=== PATIENT | male | born 1945 | race Caucasian/White ===

== ENCOUNTER 2019-12-29 12:41 | Inpatient (IN) | payer OTHER, SELFPAY ==
[2019-12-29] VITALS (13 sets, daily range): BP systolic 100–127; BP diastolic 52–88; PULSE 69–93; RESP 18–32; TEMP 36.6–37.7; O2SAT 94–100; BMI 23.8
--- NOTE | ~2019-12-29 | XR_ITS ---
EXAMINATION: XR foot LT min 3V DATE: 12/29/2019 14:10 INDICATION: Left foot diabetic ulcer. TECHNIQUE: 4 views of left foot were obtained. COMPARISON: Left foot radiographs 05/13/2013 FINDINGS: Bone alignment is normal. There is an old healed fracture of third proximal phalanx. There is severe osteoarthritis of first metatarsophalangeal joint and mild osteoarthritis of some of the in terphalangeal joints. There is an enthesophyte at posterior aspect of calcaneal tuberosity. IMPRESSION: 1. No evidence of osteomyelitis. 2. Polyarticular osteoarthritis. Reviewed, dictated and finalized at location A. ONAL ASSISTANT
--- NOTE | ~2019-12-29 | XR_ITS ---
XR chest 2V 12/29/2019 14:10 Indication: Cough and dyspnea. Discoloration of the toes. Procedure: 2 view chest Comparison: Comparison to multiple prior studies sequentially, with oldest reviewed study dated 12/2016. Findings: There is airspace disease in the left mid and lower lung. Borderline heart size. Right lung clear. No pleural effusion or pneumothorax. No acute osseous abnormality. Impression: 1: Asymmetric airspace disease of the left lung, compatible with pneumonia. Reviewed, dictated and finalized at location B. IGHTEDGE MAN Impression: 1: Asymmetric airspace disease of the left lung, compatible with pneumonia.
--- NOTE | ~2019-12-29 | MR_ITS ---
EXAMINATION: MR foot LT wo con DATE: 01/03/2020 12:53 INDICATION: Left foot osteomyelitis. TECHNIQUE: Magnetic resonance imaging (MRI) of the left foot was performed without intravenous contra st. Sequences included sagittal T1-weighted FSE and STIR FSE, long-axis PD-weighted FS FSE and PD-eric ghted FSE, and short-axis PD-weighted FS FSE and T1-weighted FSE. COMPARISON: Left foot radiographs 12/29/2019 FINDINGS: Bone alignment is normal. No acute fracture. There are old healed fracture deformities of t hird and fourth proximal phalanges. There is bone marrow edema of fifth proximal phalanx. There is se belen osteoarthritis of first metatarsophalangeal joint and mild osteoarthritis of second and fourth m etatarsophalangeal joints and many of the interphalangeal joints and midfoot joints. There is moderat e to severe fatty atrophy of all of the musculature. There is increased T2-weighted signal intensity diffusely in the musculature, consistent with subacute denervation. There is subcutaneous edema in th e forefoot, greatest dorsally, laterally, and in the great toe. IMPRESSION: 1. Bone marrow edema of fifth proximal phalanx, most likely osteomyelitis. Reviewed, dictated and finalized at location A.
--- NOTE | 2019-12-29 13:11 | ED.LOWEXIN ---
HPI - Extremity Injury (Lower) General Chief Complaint: Extremity Injury, Lower Stated Complaint: Infection L toes Time Seen by Provider: 12/29/19 12:57 Source: patient Mode of arrival: ambulatory Limitations: no limitations History of Present Illness HPI Narrative: Pt is a 74 y/o male who presents to the ED with c/o injuring his lt foot on Saturday (3 days ago). Per pt's daughter, the pt states he hit his foot in the bathroom and it is turning black. Pt has a PMHx of DM, neuropathy, and partial rt foot amputation. Per daughter, pt is an alcoholic and has a caregiver that takes care of him Saturday through Saturday a couple of hours a day. Pt refuses to seek rehab or assisted living care. He has a H/O COPD and is on home O2. Pt reports ABD pain, incontinence, CP, SOB, chills, and a cough. He denies a fever. Pt has a H/O a stroke and rt hip abscess that lead him to go into septic shock. Pt states that he is a full code. complaint: foot injury Onset (ago): day(s) (3) Injury: Left: foot Place: home Context: direct blow Other symptoms: SOB and other (ABD pain, CP) Related Data Home Medications Medication Instructions Recorded Confirmed albuterol sulfate 90 mcg/actuation 1 puff INHALATION Q4H PRN 09/30/19 aerosol inhaler ipratropium 0.5 mg-albuterol 3 mg 3 ml INHALATION Q6H PRN 09/30/19 (2.5 mg base)/3 mL nebulization soln metoprolol tartrate 50 mg tablet 50 mg PO Q12H 09/30/19 omeprazole 40 mg capsule,delayed 40 mg PO BID 09/30/19 release prednisone 2.5 mg tablet 2.5 mg PO DAILY 09/30/19 sennosides 8.6 mg capsule 8.6 mg PO BID PRN 09/30/19 sertraline 50 mg tablet 50 mg PO DAILY 09/30/19 Allergies Allergy/AdvReac Type Severity Reaction Status Date / Time niacin Allergy Unknown Verified 11/15/15 11:43 Review of Systems Review of Systems: Narrative: CONSTITUTIONAL: Reports chills. Denies a fever CARDIOVASCULAR: Reports CP. RESPIRATORY: Reports dyspnea and cough GASTROINTESTINAL: Reports ABD pain and incontinence MUSCULOSKELETAL: Reports lt foot injury. 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 Anxiety Asthma CHF (congestive heart failure) COPD (chronic obstructive pulmonary disease) COPD mixed type CVA (cerebral vascular accident) Depression Diabetes mellitus Emphysema of lung GERD (gastroesophageal reflux disease) GERD without esophagitis HLD (hyperlipidemia) HTN (hypertension) IBS (irritable bowel syndrome) Mixed hyperlipidemia Osteomyelitis Peripheral neuropathy Pneumonia Sacrum and coccyx fracture Type 2 diabetes mellitus without complications Unspecified systolic (congestive) heart failure Surgical History Surgical History (Updated 12/29/19 @ 13:45 by Benji Black) H/O bilateral cataract extraction H/O colonoscopy H/O hernia repair History of right hip replacement Hx of tonsillectomy Family History Family History (Updated 09/23/17 @ 13:33 by DOCTOR UNKNOWN) Mother Patient's mother is , Onset Age: 31 Father Family history of suicide, Onset Age: 69 Social History Social History (Updated 12/29/19 @ 13:45 by Benji Black) Smoking status: Former smoker Second hand tobacco smoke exposure: No Smoking end date: 10/28/15 Alcohol intake: current Gender identity (if verbalized by the patient): Male Exam Narrative: Exam Narrative: GENERAL: Chronically ill-appearing, thin, disheveled HEAD: Normocephalic, atraumatic. EYES: PERRLA and EOMI. ENT: Nares clear, no rhinorrhea or epistaxis. Mucous membranes moist. NECK: Supple. CHEST: Coarse breath sounds, expiratory wheezing bilaterally, faint crackles at bilateral bases. ABD retractions and tachypnea. Moderate respiratory distress. HEART: Regular rate and rhythm. No murmur heard. Normal DP pulses. ABDOMEN: Soft, nontender, non
--- NOTE | 2019-12-29 13:16 | ECG_ITS ---
Measurements Intervals [place] Rate: 82 P: [place]: 0 QRS: 43 QRSD: 82 T: 52 QT: 328 QTc: 383 Interpretive Statements ATRIAL FIBRILLATION ANTEROSEPTAL INFARCT, AGE INDETERMINATE BASELINE ARTIFACT- I, II, III, AVR, AVL, AVF, V4-V6 ABNORMAL ECG Electronically Signed On 12-29-2019 14:18:59 REFUSE COLLECTOR SUPERVISOR by Yahir Lopez D.O.
[2019-12-29] MEDS: ALBUTEROL SULFATE NEB 2.5 MG/0.5 ML INH 20 MG INHALATION (13:29)
[2019-12-29] MEDS: IPRATROPIUM BR 0.02% INH SOLN 0.5 MG/2.5 ML VIAL 2 MG INHALATION (13:29)
[2019-12-29 13:46] LABS: Basophils Absolute Auto 0.1 K/mm3 (0.0-0.1); Basophils Percent Auto 0.2 % (0.2-1.2); Hematocrit 42.1 % (42.0-52.0); Hemoglobin 14.2 g/dL (14.0-18.0); Immature Granulocyte Absolute 0.74 K/mm3 (0.00-0.031); Immature Granulocyte Percent A 2.5 % (0-0.5); Lymphocytes Absolute Auto 0.84 K/mm3 (0.9-3.2); Lymphocytes Percent Auto 2.9 % (18.3-44.2); Mean Corpuscular HGB Conc 33.7 g/dl (32-36); Mean Platelet Volume 9.5 fl (7.4-10.4); Monocytes Absolute Auto 1.5 K/mm3 (0.1-0.6); Monocytes Percent Auto 5.1 % (2.6-8.5); Neutrophils Absolute Auto 26.3 K/mm3 (1.3-6.7); Neutrophils Percent Auto 89.3 % (45.5-73.1); Platelet Count Result 154 k/mm3 (150-375); Red Blood Count 4.73 M/mm3 (4.6-6.20); Red Cell Distribution Width 12.1 % (11.5-14.5); White Blood Count 29.4 K/mm3 (4.5-10.0)
[2019-12-29 13:47] LABS: Alveolar/Arterial O2 Gradient 80.9 mmHg; Base Excess ABG -1.1 mEq/l (+/-2.0); Carboxyhemoglobin 0.8 % THb (0-2.0); Device NASAL CANNULA; Fractional Inspired Oxygen 30 %; HCO3 ABG 22.3 mEq/l (22.0-26.0); Liters per Minute 2.5 LPM; Methemoglobin ABG 0.3 %THb (0-1.5); Oxygen Content ABG 19.3 %vol (16.0-22.0); Oxygen Saturation ABG 97.4 % (95.0-100.0); Oxyhemoglobin 96.2 % THb (90.0-100.0); PCO2 ABG 33.7 mmHg (35.0-45.0); PO2 ABG 93.4 mmHg (80.0-100.0); PO2 FiO2 Ratio Arterial Blood 3.11 %; Reduced Hemoglobin 2.7 %THb (0-5.0); Site Drawn RIGHT BRACHIAL; Total Hemoglobin 14.2 g/dL (12.0-18.0); pH ABG 7.439 (7.350-7.450)
[2019-12-29] MEDS: MAGNESIUM SULF 2 GM/WATER 50ML 2 GM/50 ML BAG IVPB (13:51)
[2019-12-29] MEDS: SODIUM CHLORIDE 0.9% IV 2,500 ML/1,000 ML BAG 999 ML IV CONT ×2 (13:51→15:04)
[2019-12-29] MEDS: methylPREDNISolone SOD SUCC 125 MG VIAL IV PUSH (13:52)
[2019-12-29 13:56] LABS: INR 1.1; Prothrombin Time 14.2 Seconds (11.1-14.7)
[2019-12-29 13:57] LABS: Partial Thromboplastin Time 32.6 SECONDS (22.3-36.8)
[2019-12-29 14:02] LABS: Lactic Acid Reflex 2.3 mmol/L (0.7-2.1)
[2019-12-29 14:03] LABS: Ethanol < 10 mg/dL (<10)
[2019-12-29 14:04] LABS: Alanine Aminotransferase 22 U/L (4-50); Albumin Level 4.6 g/dL (3.5-5.1); Alkaline Phosphatase 99 U/L (38-126); Aspartate Amino Transferase 64 U/L (17-59); Bilirubin,Total 1.3 mg/dL (0.2-1.3); Blood Urea Nitrogen 16 mg/dL (9-20); Calcium 8.7 mg/dL (8.4-10.2); Carbon Dioxide 27 mmol/L (22-30); Chloride 83 mmol/L (98-107); Estimated CRCL calculation 54 ml/min; Estimated Glomerular Filt Rate 59; Glucose 131 mg/dL (75-110); Potassium 4.1 mmol/L (3.4-5.0); Sodium 128 mmol/L (137-145)
[2019-12-29 14:06] LABS: NT Pro B Type Natriuretic Pept 31300 PG/ML (5-100)
[2019-12-29 14:12] LABS: Troponin I 0.422 ng/mL (0.000-0.034)
[2019-12-29 14:19] LABS: Glucose Point of Care 122 (65-105)
[2019-12-29 14:49] LABS: Erythrocyte Sedimentation Rate 23 mm/hr (0-20)
--- NOTE | 2019-12-29 15:29 | PC.NURSE ---
Straight cath attempted with no urine output. EDP notified.
[2019-12-29 16:49] LABS: Reflex Lactic Acid Yes or No Add Lactic
--- NOTE | 2019-12-29 16:50 | PC.NURSE ---
Per EDP. Give only 2L out of the 2.5L NS Bolus.
--- NOTE | 2019-12-29 17:05 | PC.NURSE ---
This patient, Ludin Mcguire, was admitted to IMU Room 205-01. Patient/family oriented to hospital policies and general routines including ID bracelet, bed and alarms, visiting hours, pain management, procedures, bathroom and other care routines, personal items, smoking policy, room service/diet, and visiting hours. Valuables list has been completed. Information on how to activate the Rapid Response Team has been discussed. Patient/Family are encouraged to report perceived risks to care and to ask questions if they do not understand what they are told or what they should do.
[2019-12-29 17:48] LABS: Lactic Acid 1.7 mmol/L (0.7-2.1)
[2019-12-29 18:01] LABS: Troponin I 0.417 ng/mL (0.000-0.034)
--- NOTE | 2019-12-29 18:04 | PM.CNGS ---
Assessment and Plan Assessment and plan (1) Diabetic foot infection: Onset Date: Unknown Code(s): E11.628 - Type 2 diabetes mellitus with other skin complications; L08.9 - Local infection of the skin and subcutaneous tissue, unspecified Status: Acute Assessment and Plan: At this time will began applying dressings for dry gangrene of the left toes. Will use silver gel with 2 x 2 between the toes. Wash daily with dressing change. Will ask wound care nurses to see the patient. On my exam he has a good palpable dorsalis pedis and posterior tibial /suspect this is small vessel disease related to his diabetes. (2) COPD mixed type: Code(s): J44.9 - Chronic obstructive pulmonary disease, unspecified Status: Chronic Assessment and Plan: Longstanding, Rx per hospitalist (3) Severe sepsis: Code(s): A41.9 - Sepsis, unspecified organism; R65.20 - Severe sepsis without septic shock Status: Acute Assessment and Plan: antibiotics started in the ED Source is unknown. Toes appear to be dry gangrene so doubt sepsis started on them. (4) Diabetes mellitus: Code(s): E11.9 - Type 2 diabetes mellitus without complications Status: Acute Assessment and Plan: Long-standing, Excerbated by alcoholism Rx per hospitalist. (5) Smoker: Code(s): F17.200 - Nicotine dependence, unspecified, uncomplicated Status: Acute History of Present Illness Consult details Consult date: 12/29/19 Reason for consult: wound care ( Dry gangrene of the toes left foot) Requesting physician: Josh Matias MD Narrative: This patient is a somewhat somnolent 74-year-old white male who was known to be an alcoholic,and diabectic, with COPD and on oxygen at home. His daughter found him somewhat somnolent today and brought into the emergency room. In emergency room E was noted to have multiple problems including apparent dry gangrene of the distal portions of all his left toes. He presented to [facility] today. He is a 74 y/o male who presented to the ED with c/o injuring his lt foot on Saturday (3 days ago). Per pt's daughter, the pt states he hit his foot in the bathroom and it is turning black. Patient patient's daughter states that the last time she saw his foot is probably at least 2 weeks ago. Pt has a PMHx of DM, neuropathy, and partial rt foot amputation. Per daughter, pt is an alcoholic and has a caregiver that takes care of him Saturday through Saturday a couple of hours a day. Pt refuses to seek rehab or assisted living care. He has a H/O COPD and is on home O2. Pt reports ABD pain, incontinence, CP, SOB, chills, and a cough. He denies a fever. Pt has a H/O a stroke and rt hip abscess that lead him to go into septic shock. Review of Systems Constitutional: Constitutional: Reports no additional constitutional complaints, Reports fatigue and Denies malaise Eyes: Eyes: Denies change in vision and Denies loss of vision ENT: Reports Normal hearing present, Denies change in voice, Denies dizziness, Denies hoarseness and Denies sore throat Cardiovascular: Cardiovascular: Denies chest pain, Denies leg edema and Denies dyspnea Respiratory: Respiratory: Reports as per HPI, Reports dyspnea on exertion and Denies wheezing Gastrointestinal: Gastrointestinal: Denies hematochezia, Denies change in bowel habits and Denies heartburn Genitourinary: Genitourinary: Denies urinary frequency and Denies urinary incontinence Integumentary/Breasts: Comments: Patient not totally aware of the condition of his toes on the left. Neurologic: Reports as per HPI, Denies dizziness, Reports Sensory deficit (Neuro) ( bilateral lower extremities with neuropathy) and Reports paresthesias ( Lower extremities) Psychiatric: Psychiatric: Denies confusion, Denies depression and Denies memory loss Endocrine: Endocrine: Denies cold intolerance and Reports fatigue Hematologic/Lymphatic: Hematologic/Lymph
[2019-12-29 21:18] LABS: Troponin I 0.441 ng/mL (0.000-0.034)
--- NOTE | 2019-12-29 21:33 | PM.IMHP ---
H&P: HPI History of Present Illness Chief complaint: Infection L toes Narrative: Ludin Mcguire is a 74 year old male who presented to the ED with a left foot injury. Patient hit his foot in the bathroom on Saturday12/26/2019 and per daughter, the toes are turning black. Patient has a past medical history of diabetes mellitus type II, diabetic neuropathy and partial right foot amputation. Patient is a poor historian and most information is from history provided by daughter when the patient was in the ED. Upon arrival to patient room, patient is very drowsy and keeps falling asleep during interview. Patient also has a history of COPD and wears home O2. Surgery has already seen the patient. Date of service is 12/29/2019. Review of Systems Review of Systems: Narrative: Patient is a poor historian and keeps falling asleep during interview. Constitutional: Constitutional: Reports as per HPI and Reports no additional constitutional complaints Eyes: Eyes: Reports as per HPI and Reports no additional eye complaints ENT: Reports system reviewed and no additional complaints, except as documented and Reports hearing loss (Patient is hard of hearing. He reports that he does not have hearing aides) Cardiovascular: Cardiovascular: Reports no additional cardiovascular complaints Respiratory: Respiratory: Reports as per HPI and Reports no additional respiratory complaints Gastrointestinal: Gastrointestinal: Reports as per HPI and Reports no additional gastrointestinal complaints Musculoskeletal: Musculoskeletal: Reports no additional musculoskeletal complaints Integumentary/Breasts: Skin/Breast: Reports system reviewed and no additional complaints, except as docu Neurologic: Reports system reviewed and no additional complaints, except as documented and Reports Normal hearing present Psychiatric: Psychiatric: Reports no additional psychiatric complaints and Reports as per HPI Hematologic/Lymphatic: Hematologic/Lymphatic: Reports no additional hematologic/lymphatic complaints Allergic/Immunologic: Allergic/Immunologic: Reports no additional allergic/immunologic complaints [facility] Past Medical History Medical History (Updated 12/29/19 @ 22:27 by Nahomi Rosario NP) Afib Alcoholism 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 Anxiety Asthma CHF (congestive heart failure) Diastolic COPD (chronic obstructive pulmonary disease) COPD mixed type Cough CVA (cerebral vascular accident) Depression Diabetes mellitus Dyspnea on exertion Emphysema of lung GERD (gastroesophageal reflux disease) GERD without esophagitis HLD (hyperlipidemia) HTN (hypertension) Hypoxemia IBS (irritable bowel syndrome) Ichthyosis Mixed hyperlipidemia Neuropathy Osteomyelitis Peripheral neuropathy Pneumonia Sacrum and coccyx fracture Smoker Type 2 diabetes mellitus without complications Unspecified systolic (congestive) heart failure Surgical History Surgical History H/O bilateral cataract extraction H/O colonoscopy H/O hernia repair History of right hip replacement Hx of tonsillectomy Family History Family History (Updated 12/29/19 @ 21:41 by Nahomi Rosario NP) Mother Patient's mother is , Onset Age: 31 Father Suicide Social History Social History (Updated 12/29/19 @ 22:22 by Nahomi Rosario NP) Social History: Patient is a poor historian. Most of history is from that collected in the ED when the patient's daughter was available for information. Last admission his daughter Adwoa palmer with his power associate attorney. The patient was a full code at that time. It was noted that he drinks most days of the week and consumes beer, lack a common whiskey and unknown quantities. He denies any drug use. He is . 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 Smoking packs per day: 1 Smoking cigarettes per day: 20.0 Years smoked: 58
[2019-12-29] MEDS: GABAPENTIN 100 MG CAPSULE PO (22:41)
[2019-12-29] MEDS: PANTOPRAZOLE 40 MG TABLET PO (22:42)
[2019-12-29] MEDS: SILVERGEL (ELTA) 45 ML 1 APPLIC TOPICAL (22:43)
[2019-12-29] MEDS: CHLORHEXIDINE GLUCONATE 4% SOL 120 ML BTL 1 APPLIC TOPICAL (22:43)
[2019-12-29] MEDS: SODIUM CHLORIDE 0.9% IV 1,000 ML 75 ML IV CONT (23:44)
[2019-12-29] MEDS: CHLORDIAZEPOXIDE 10 MG CAPSULE PO (23:45)
[2019-12-30] VITALS (21 sets, daily range): BP systolic 94–132; BP diastolic 58–69; PULSE 55–110; RESP 18–20; TEMP 36.1–36.7; O2SAT 92–99
[2019-12-30] MEDS: IPRATROPIUM BR 0.02% INH SOLN 0.5 MG/2.5 ML VIAL INHALATION ×4 (03:29→21:36)
[2019-12-30 04:20] LABS: Add Urine Microscopic? YES; Appearance Urine Clear (Clear); Bacteria Urine Trace /hpf; Bilirubin Urine Negative (Negative); Blood Urine 2+ (Negative); Color Urine Yellow (Yellow); Glucose Urine UA 1+ mg/dL (Negative); Ketones Urine Negative (Negative); Leukocyte Esterase Ur Negative LEU/UL (Negative); Mucus Urine Rare /lpf; Nitrate Urine Negative (Negative); Protein Urine 3+ mg/dL (Negative); Specific Grav Ur 1.014 (1.001-1.035); Squamous Epithelial Cell Urine Rare /hpf (Few); Urobilinogen Urine Negative mg/dL (<2.0)
[2019-12-30 05:09] LABS: Basophils Percent Auto 0.2 % (0.2-1.2); Hematocrit 36.3 % (42.0-52.0); Hemoglobin 12.1 g/dL (14.0-18.0); Immature Granulocyte Absolute 0.14 K/mm3 (0.00-0.031); Immature Granulocyte Percent A 0.9 % (0-0.5); Immature Platelet Fraction Pct 6.1 % (0.9-11.2); Lymphocytes Absolute Auto 0.29 K/mm3 (0.9-3.2); Lymphocytes Percent Auto 1.8 % (18.3-44.2); Mean Corpuscular HGB Conc 33.3 g/dl (32-36); Mean Corpuscular Hemoglobin 29.9 pg (26-34); Mean Corpuscular Volume 89.6 fl (80-100); Mean Platelet Volume 10.4 fl (7.4-10.4); Monocytes Absolute Auto 0.5 K/mm3 (0.1-0.6); Neutrophils Absolute Auto 15.4 K/mm3 (1.3-6.7); Neutrophils Percent Auto 94.1 % (45.5-73.1); Platelet Count Result 111 k/mm3 (150-375); Red Blood Count 4.05 M/mm3 (4.6-6.20); Red Cell Distribution Width 12.2 % (11.5-14.5); White Blood Count 16.3 K/mm3 (4.5-10.0)
[2019-12-30 05:41] LABS: Alanine Aminotransferase 19 U/L (4-50); Albumin Level 3.4 g/dL (3.5-5.1); Alkaline Phosphatase 85 U/L (38-126); Aspartate Amino Transferase 53 U/L (17-59); Bilirubin,Total 0.8 mg/dL (0.2-1.3); Blood Urea Nitrogen 22 mg/dL (9-20); Calcium 7.9 mg/dL (8.4-10.2); Carbon Dioxide 25 mmol/L (22-30); Chloride 92 mmol/L (98-107); Estimated CRCL calculation 54 ml/min; Estimated Glomerular Filt Rate 59; Glucose 248 mg/dL (75-110); Magnesium 2.2 mg/dL (1.6-2.3); Potassium 2.8 mmol/L (3.4-5.0); Sodium 127 mmol/L (137-145)
[2019-12-30 06:26] LABS: Potassium 2.7 mmol/L (3.4-5.0)
[2019-12-30] MEDS: CHLORDIAZEPOXIDE 10 MG CAPSULE PO ×3 (06:35→17:14)
[2019-12-30 07:43] LABS: Thyroid Stimulating Hormone Reflex 0.768 uIU/mL (0.465-4.68)
[2019-12-30 08:09] LABS: Glucose Point of Care 236 (65-105)
[2019-12-30] MEDS: SERTRALINE HCL 50 MG TABLET PO (08:22)
[2019-12-30] MEDS: SIMVASTATIN 10 MG TABLET PO (08:22)
[2019-12-30] MEDS: PANTOPRAZOLE 40 MG TABLET PO ×2 (08:23→20:42)
[2019-12-30] MEDS: predniSONE 2.5 MG TABLET PO (08:23)
[2019-12-30] MEDS: INSULIN ASPART (*BKC) 100 UNITS/ML SUB-Q ×3 (08:23→17:22)
[2019-12-30] MEDS: GABAPENTIN 100 MG CAPSULE PO ×3 (08:23→17:14)
[2019-12-30] MEDS: THIAMINE HCL 100 MG TABLET PO (08:23)
[2019-12-30] MEDS: FOLIC ACID 1 MG TABLET PO (08:23)
[2019-12-30] MEDS: CHLORHEXIDINE GLUCONATE 4% SOL 120 ML BTL 1 APPLIC TOPICAL (08:24)
[2019-12-30] MEDS: SILVERGEL (ELTA) 45 ML 1 APPLIC TOPICAL ×2 (08:24→14:04)
[2019-12-30] MEDS: EUCERIN CREAM 120 GM JAR 1 APPLIC TOPICAL (08:24)
--- NOTE | 2019-12-30 09:42 | PM.IMPN ---
Progress Note: A&P Assessment and Plan (1) Severe sepsis: Code(s): A41.9 - Sepsis, unspecified organism; R65.20 - Severe sepsis without septic shock Status: Acute Assessment and Plan: Continue vancomycin and zosyn as ordered. Awaiting blood culture results. Infection sources: diabetic foot infection and pneumonia. (2) Diabetic foot infection: Onset Date: Unknown Code(s): E11.628 - Type 2 diabetes mellitus with other skin complications; L08.9 - Local infection of the skin and subcutaneous tissue, unspecified Status: Acute Assessment and Plan: General surgery and wound care input noted and appreciated. Continue antibiotics. Needs left forefoot amputation. (3) Pneumonia: Qualifiers: Pneumonia type: due to unspecified organism Laterality: unspecified laterality Lung location: unspecified part of lung Qualified Code(s): J18.9 - Pneumonia, unspecified organism Code(s): J18.9 - Pneumonia, unspecified organism Status: Acute Assessment and Plan: Day 2 Vanc/Zosyn (4) Acute exacerbation of chronic obstructive pulmonary disease: Code(s): J44.1 - Chronic obstructive pulmonary disease with (acute) exacerbation Status: Acute Assessment and Plan: Nebs, steroids, antibiotics, oxygen as needed (5) Alcoholism: Code(s): F10.20 - Alcohol dependence, uncomplicated Status: Chronic Assessment and Plan: ciwa Librium thiamin and folic acid (6) CHF (congestive heart failure): Code(s): I50.9 - Heart failure, unspecified Status: Chronic Assessment and Plan: Clinically euvolemic. 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 Try Eucerin cream. May consider steroids. He takes p.o. steroids at home. However this could be delaying his healing. (9) Diabetes mellitus: Qualifiers: Diabetes mellitus type: type 2 Diabetes mellitus terminal carman insulin use: unspecified [facility] insulin use status Diabetes mellitus complication status: with hyperglycemia Qualified Code(s): E11.65 - Type 2 diabetes mellitus with hyperglycemia Code(s): E11.9 - Type 2 diabetes mellitus without complications Status: Acute Assessment and Plan: Check Accu-Cheks AC and HS. A1c (10) Afib: Code(s): I48.91 - Unspecified atrial fibrillation Status: Chronic Assessment and Plan: Metoprolol is on hold at this time. Due to low blood pressure please Ryan evaluate tomorrow. (11) HTN (hypertension): Code(s): I10 - Essential (primary) hypertension Status: Chronic Assessment and Plan: 3/4 Resume low dose metoprolol (12) Hypokalemia: Code(s): E87.6 - Hypokalemia Status: Acute Assessment and Plan: 3/ 2.7 due to alcohol, iv saline, beta-lactam Peripheral k-rider f/u BMP, mag Subjective Date/time seen: 12/30/19 09:42 Interval history: Aches all over since he fall and injured his back last year. Denied cp or sob. Denied pain in feet. No GI or c/o. No abnormal bleeding. Good appetite. Review of Systems Review of Systems: All systems reviewed & are unremarkable except as noted in HPI and below Exam Narrative: Exam Narrative: HEENT: EOMI, PERRL, sclerae nonicteric, pharyngeal mucosa pink and intact NECK: No JVD CHEST: Clear to auscultation. Normal effort. HEART: NL S1/S2, regular, no murmur ABDOMEN: BS+, soft, nontender, no mass, no bruits EXTREMITIES: DP intact bilaterally. Distal right foot amputation. Necrotic right toes (all 5). NEUROLOGIC: CN intact and symmetric to inspection. MUSCULOSKELETAL: Tone and s
[2019-12-30 10:28] LABS: Immature Reticulocyte Fraction 10.5 % (3.0-15.9); Reticulocyte Hemoglobin Conten 33.1 pg (28.2-35.7); Reticulocyte Percent 1.65 % (0.7-4.3); Reticulocytes Absolute 0.07 B/L (32.2-175.7)
--- NOTE | 2019-12-30 12:19 | PC.NURSE ---
This patient, Ludin Mcguire, was transferred to [[id number] ] on 12/30/19 at 1220. Personal belongings sent with patient. Belongings list checked and signed with receiving [ ]. Report given to [ PAUL Mcgregor]. Appropriate documentation sent with patient.
[2019-12-30] MEDS: predniSONE 20 MG TABLET 40 MG PO (12:50)
[2019-12-30 13:41] LABS: Glucose Point of Care 358 (65-105)
[2019-12-30 14:06] LABS: Glucose Point of Care 319 (65-105)
[2019-12-30 15:52] LABS: Blood Urea Nitrogen 18 mg/dL (9-20); Calcium 7.7 mg/dL (8.4-10.2); Carbon Dioxide 23 mmol/L (22-30); Chloride 91 mmol/L (98-107); Estimated CRCL calculation 58 ml/min; Estimated Glomerular Filt Rate > 60; Glucose 276 mg/dL (75-110); Potassium 3.1 mmol/L (3.4-5.0); Sodium 129 mmol/L (137-145)
--- NOTE | 2019-12-30 16:06 | PM.PNGS ---
Progress Note: A&P Assessment and Plan (1) Diabetic foot infection: Onset Date: Unknown Code(s): E11.628 - Type 2 diabetes mellitus with other skin complications; L08.9 - Local infection of the skin and subcutaneous tissue, unspecified Status: Acute Assessment and Plan: Patient seen with the wound care nurses. Will initiate betadine dressing changes daily to the left foot wounds. He has strong pulses and this appears to be due to small vessel disease likely related to his diabetes. I discussed this with Dr. De who does not perform amputations on the foot and this patient likely needs a transmetatarsal amputation. Will consult Orthopedics tomorrow to evaluate the patient for possible amputation. (2) COPD mixed type: Code(s): J44.9 - Chronic obstructive pulmonary disease, unspecified Status: Chronic (3) Severe sepsis: Code(s): A41.9 - Sepsis, unspecified organism; R65.20 - Severe sepsis without septic shock Status: Acute Assessment and Plan: Continue IV antibiotics. Left food wound less likely to be the source of the sepsis. Patient also has pneumonia. (4) Diabetes mellitus: Qualifiers: Diabetes mellitus complication status: with hyperglycemia Diabetes mellitus terminal press operator insulin use: unspecified terminal press operator insulin use status Diabetes mellitus type: type 2 Qualified Code(s): E11.65 - Type 2 diabetes mellitus with hyperglycemia Code(s): E11.9 - Type 2 diabetes mellitus without complications Status: Acute Assessment and Plan: Long-standing, Excerbated by alcoholism Rx per hospitalist. (5) Smoker: Code(s): F17.200 - Nicotine dependence, unspecified, uncomplicated Status: Acute (6) Pneumonia: Qualifiers: Laterality: unspecified laterality Lung location: unspecified part of lung Pneumonia type: due to unspecified organism Qualified Code(s): J18.9 - Pneumonia, unspecified organism Code(s): J18.9 - Pneumonia, unspecified organism Status: Acute (7) Acute exacerbation of CHF (congestive heart failure): Qualifiers: Heart failure type: unspecified Qualified Code(s): I50.9 - Heart failure, unspecified Code(s): I50.9 - Heart failure, unspecified Status: Acute (8) Alcoholism: Code(s): F10.20 - Alcohol dependence, uncomplicated Status: Chronic Subjective Subjective Date/Time Seen: 03/04/20 16:06 Patient reports: no new complaints Interval history: Patient seen and examined. Denies any pain today in his left foot. He states that he is concerned about the wound on his big toe. No other significant complaints at this time. Review of Systems Review of Systems: All systems reviewed & are unremarkable except as noted in HPI and below Exam Const: General: comfortable, no acute distress, awake and poor hygiene Extrem: Right lower extremity: foot ( Shows site of transmetatarsal amputation mostly healed with some callus) Left lower extremity: foot Details: abnormal to inspection Details: other ( All 5 his toes distally are black. Only a few on the proximal phalanx have normal skin on them); abnormal capillary refill Other: Left foot, all 5 toes are dry and black on the distal aspect of each phalanx with some slightly normal skin on the proximal phalanx of a few of them. Slowed capillary refill. No purulent drainage noted. There is also a black superficial ulcer on the plantar aspect of his left foot near the pad of the ball of his foot. Vascular exam of left foot reveals a strong DP pulse and also a palpable but slightly weaker PT pulse. Objective Data Vital Signs Vital Signs: Vital Signs - 24 hr 12/29/19 17:01 12/29/19 17:15 12/29/19 18:00 Temperature 37.2 C Pulse Rate 88 88 81 Pulse Rate [Bilateral Pedal (Dorsalis Pedis) Palpation] Respiratory Rate 20 24 H Blood Pressure 111/56 L 100/52 L Pulse Oximetry 100 96 12/29/19 19:54 12/29/19 20:00
[2019-12-30] MEDS: POTASSIUM CHLORIDE 20 MEQ TABLET 40 MEQ PO ×2 (17:15→20:42)
[2019-12-30 17:21] LABS: Iron 11 ug/dL (49-181)
[2019-12-30 17:23] LABS: Glucose Point of Care 240 (65-105)
[2019-12-30 17:31] LABS: Percent Iron Saturation 4 % (20-50)
[2019-12-30] MEDS: METOPROLOL TARTRATE 25 MG TABLET PO (20:43)
[2019-12-30 23:33] LABS: Glucose Point of Care 220 (65-105)
[2019-12-31] VITALS (15 sets, daily range): BP systolic 120–122; BP diastolic 60–64; PULSE 62–92; RESP 18–20; TEMP 36.6–36.7; O2SAT 94–97
--- NOTE | 2019-12-31 | ECHO_ITS ---
Patient Info Name: Ludin Mcguire Age: 74 years : 1945 Gender: Male Ht: 72 in Wt: 175 lbs BSA: 2.01 m2 HR: 98 bpm BP: 132 / 67 mmHg Technical Quality: Good Exam Date: 12/31/2019 10:38 AM Exam Location: [facility] Patient Status: Inpatient Admit Date: 12/29/2019 Staff Ordering Physician: Josh Matias MD Secretarial Teacher: Noel Whitaker, [place], RT Attending Provider: Josh Matias MD Referring Physician: Polly STARK; Exam Type: CA echo doppler color flow Study Info Indications I50.9 - Heart failure, unspecified Complete two-dimensional, color flow and Doppler transthoracic echocardiogram is performed. Summary 1. Left ventricular systolic function is normal, estimated at 55-60%. 2. The left ventricular diastolic function is abnormal. 3. There is mild mitral valve regurgitation. 4. There is mild tricuspid valve regurgitation. 5. Moderate pulmonary hypertension, estimated pulmonary arterial systolic pressure is 56 mmHg. 6. Technically difficult study. Left Ventricle Left ventricular chamber dimension is normal. Left ventricular systolic function is normal, estimated at 55-60%. There is no increased left ventricular wall thickness. Left ventricular septal wall motion is normal. The left ventricular diastolic function is abnormal. Right Ventricle Right ventricular chamber dimension is normal. Right ventricular systolic function is normal. Left Atria Left atrial chamber dimension is normal. Right Atria Right atrial chamber dimension is normal. Atrial Septum Intact interatrial septum visualized by color flow imaging. Aortic Valve The aortic valve is not well visualized. There is no aortic valve sclerosis. There is no aortic valve stenosis. There is no aortic valve regurgitation. Pulmonic Valve The pulmonic valve is normal. There is no pulmonic valve stenosis. There is no pulmonic regurgitation. Mitral Valve The mitral valve has normal leaflets. There is no mitral valve stenosis. There is mild mitral valve regurgitation. Tricuspid Valve The tricuspid valve leaflets are normal. There is no significant tricuspid valve stenosis. There is mild tricuspid valve regurgitation. Moderate pulmonary hypertension, estimated pulmonary arterial systolic pressure is 56 mmHg. Pericardium/Pleural The pericardium appears normal. There is no pericardial effusion. Inferior Vena Cava Normal inferior vena cava with <50% collapse upon inspiration consistent with elevated right atrial pressure, 15 mmHg. Aorta The aortic root size at the sinus of Valsalva is normal. The prox ascending aorta size is normal. Left Ventricular Outflow Tract Name Value Normal LVOT 2D LVOT Diameter 2.0 cm LVOT Doppler LVOT Peak Gradient 5 mmHg LVOT Mean Gradient 3 mmHg LVOT VTI 20 cm LVOT VTI/AV VTI Ratio 0.6 LVOT Stroke Volume 66 ml LVOT CO 7.7 l/min LVOT CI 3.8 l/m
[2019-12-31] MEDS: CHLORDIAZEPOXIDE 10 MG CAPSULE PO ×4 (00:09→17:45)
[2019-12-31] MEDS: ACETAMINOPHEN 325 MG TABLET 650 MG PO ×2 (00:16→22:09)
[2019-12-31] MEDS: IPRATROPIUM BR 0.02% INH SOLN 0.5 MG/2.5 ML VIAL INHALATION ×3 (02:21→20:17)
[2019-12-31 06:44] LABS: Hematocrit 34.2 % (42.0-52.0); Hemoglobin 11.3 g/dL (14.0-18.0); Mean Corpuscular Hemoglobin 29.4 pg (26-34); Mean Corpuscular Volume 88.8 fl (80-100); Mean Platelet Volume 10.6 fl (7.4-10.4); Platelet Count Result 130 k/mm3 (150-375); Red Blood Count 3.85 M/mm3 (4.6-6.20); Red Cell Distribution Width 12.2 % (11.5-14.5); White Blood Count 19.6 K/mm3 (4.5-10.0)
[2019-12-31 06:59] LABS: Blood Urea Nitrogen 17 mg/dL (9-20); Carbon Dioxide 26 mmol/L (22-30); Chloride 98 mmol/L (98-107); Estimated CRCL calculation 64 ml/min; Estimated Glomerular Filt Rate > 60; Glucose 234 mg/dL (75-110); Potassium 3.9 mmol/L (3.4-5.0); Sodium 129 mmol/L (137-145)
[2019-12-31] MEDS: SERTRALINE HCL 50 MG TABLET PO (08:53)
[2019-12-31] MEDS: GABAPENTIN 100 MG CAPSULE PO ×3 (08:53→16:46)
[2019-12-31] MEDS: predniSONE 20 MG TABLET 40 MG PO (08:53)
[2019-12-31] MEDS: SIMVASTATIN 10 MG TABLET PO (08:53)
[2019-12-31 08:54] LABS: Glucose Point of Care 209 (65-105)
[2019-12-31] MEDS: FOLIC ACID 1 MG TABLET PO (08:54)
[2019-12-31] MEDS: METOPROLOL TARTRATE 25 MG TABLET PO ×2 (08:54→21:53)
[2019-12-31] MEDS: EUCERIN CREAM 120 GM JAR 1 APPLIC TOPICAL (08:54)
[2019-12-31] MEDS: PANTOPRAZOLE 40 MG TABLET PO ×2 (08:54→21:53)
[2019-12-31] MEDS: THIAMINE HCL 100 MG TABLET PO (08:54)
[2019-12-31] MEDS: INSULIN ASPART (*BKC) 100 UNITS/ML SUB-Q ×2 (08:55→12:18)
[2019-12-31 12:21] LABS: Glucose Point of Care 253 (65-105)
--- NOTE | 2019-12-31 12:54 | PM.PNGS ---
Progress Note: A&P Assessment and Plan (1) Diabetic foot infection: Onset Date: Unknown Code(s): E11.628 - Type 2 diabetes mellitus with other skin complications; L08.9 - Local infection of the skin and subcutaneous tissue, unspecified Status: Acute Assessment and Plan: Patient getting betadine dressing changes daily to the left foot wounds. He has strong pulses and this appears to be due to small vessel disease likely related to his diabetes. This patient likely needs a transmetatarsal amputation. Will consult Dr. Dewayne Heaton who did his transmetatarsal amputation on the opposite side 5-10 years ago. (2) COPD mixed type: Code(s): J44.9 - Chronic obstructive pulmonary disease, unspecified Status: Chronic Assessment and Plan: History of being on home O2 for COPD On O2 here. (3) Severe sepsis: Code(s): A41.9 - Sepsis, unspecified organism; R65.20 - Severe sepsis without septic shock Status: Acute Assessment and Plan: Continue IV antibiotics. Left food wound less likely to be the source of the sepsis. Patient also has pneumonia. (4) Diabetes mellitus: Qualifiers: Diabetes mellitus type: type 2 Diabetes mellitus detention insulin use: unspecified terminal make up operator insulin use status Diabetes mellitus complication status: with hyperglycemia Qualified Code(s): E11.65 - Type 2 diabetes mellitus with hyperglycemia Code(s): E11.9 - Type 2 diabetes mellitus without complications Status: Acute Assessment and Plan: Long-standing, Excerbated by alcoholism Rx per hospitalist. (5) Smoker: Code(s): F17.200 - Nicotine dependence, unspecified, uncomplicated Status: Acute (6) Pneumonia: Qualifiers: Pneumonia type: due to unspecified organism Laterality: unspecified laterality Lung location: unspecified part of lung Qualified Code(s): J18.9 - Pneumonia, unspecified organism Code(s): J18.9 - Pneumonia, unspecified organism Status: Acute (7) Acute exacerbation of CHF (congestive heart failure): Qualifiers: Heart failure type: unspecified Qualified Code(s): I50.9 - Heart failure, unspecified Code(s): I50.9 - Heart failure, unspecified Status: Acute (8) Alcoholism: Code(s): F10.20 - Alcohol dependence, uncomplicated Status: Chronic Subjective Subjective Date/Time Seen: 12/31/19 12:54 Interval history: Patient was getting an echocardiogram when I entered the room. I waited 15 minutes and then talk to him. He states that he is not a lot of pain today. He states that the small sore on the stump of his right transmetatarsal amputation site has been open on and off. Currently there is just a small opening that silver gel is being applied on. He was happy to hear that Dr. sherry tyler would be willing to evaluate him for a transmetatarsal amputation on the left side. (Consult placed). Review of Systems Constitutional: Constitutional: Reports no additional constitutional complaints ENT: Reports other (Mucous Membranes moist.) Cardiovascular: Cardiovascular: Denies dyspnea Respiratory: Respiratory: Denies pain on inspiration and Denies dyspnea Musculoskeletal: Musculoskeletal: Reports other (No calf swelling or edema) Integumentary/Breasts: Skin/Breast: Reports system reviewed and no additional complaints, except as docu Exam HENMT: Head: normal to inspection, normocephalic and atraumatic Ears: hearing grossly normal bilaterally General nose exam: Normal external nose present Face and sinus: normal facial exam Mouth: Yes Normal oral and palatal mucosa present, Yes tongue normal and Yes dry mucous membranes Chest: Chest palpation & inspection: normal inspection of the chest Cardio: Jugular venous distension: no JVD Rate: regular rate Rhythm: regular rhythm Heart sounds: S1 normal heart sound present and S2 normal heart sound present Skin: General skin exam: dry s
--- NOTE | 2019-12-31 15:29 | PM.IMPN ---
Progress Note: A&P Assessment and Plan (1) Severe sepsis: Code(s): A41.9 - Sepsis, unspecified organism; R65.20 - Severe sepsis without septic shock Status: Acute Assessment and Plan: Continue vancomycin and zosyn as ordered. Awaiting blood culture results. Infection sources: diabetic foot infection and pneumonia. (2) Diabetic foot infection: Onset Date: Unknown Code(s): E11.628 - Type 2 diabetes mellitus with other skin complications; L08.9 - Local infection of the skin and subcutaneous tissue, unspecified Status: Acute Assessment and Plan: General surgery and wound care input noted and appreciated. Continue antibiotics. Needs left forefoot amputation (3) Pneumonia: Qualifiers: Laterality: unspecified laterality Lung location: unspecified part of lung Pneumonia type: due to unspecified organism Qualified Code(s): J18.9 - Pneumonia, unspecified organism Code(s): J18.9 - Pneumonia, unspecified organism Status: Acute Assessment and Plan: Day 3 Vanc/Zosyn (4) Acute exacerbation of chronic obstructive pulmonary disease: Code(s): J44.1 - Chronic obstructive pulmonary disease with (acute) exacerbation Status: Acute Assessment and Plan: Nebs, steroids, antibiotics, oxygen as needed (5) Alcoholism: Code(s): F10.20 - Alcohol dependence, uncomplicated Status: Chronic Assessment and Plan: ciwa Librium thiamin and folic acid (6) CHF (congestive heart failure): Code(s): I50.9 - Heart failure, unspecified Status: Chronic Assessment and Plan: Clinically euvolemic. 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 Try Eucerin cream. May consider steroids. He takes p.o. steroids at home. However this could be delaying his healing. 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 A1c pending 12/30 Added basal Lantus 21 U (10) Afib: Code(s): I48.91 - Unspecified atrial fibrillation Status: Chronic Assessment and Plan: 12/29 metoprolol resumed (11) HTN (hypertension): Code(s): I10 - Essential (primary) hypertension Status: Chronic Assessment and Plan: / Resumed low dose metoprolol (12) Hypokalemia: Code(s): E87.6 - Hypokalemia Status: Acute Assessment and Plan: 12/29 2.7 due to alcohol, iv saline, beta-lactam 12/29 Peripheral k-rider f/u BMP, mag 12/30 Na 129, K 3.9 Subjective Date/time seen: 12/31/19 15:29 Interval history: Aches all over since he fall and injured his back last year. Denied cp or sob. Denied pain in feet. No GI or c/o. No abnormal bleeding. Good appetite. Review of Systems Review of Systems: All systems reviewed & are unremarkable except as noted in HPI and below Exam Narrative: Exam Narrative: HEENT: EOMI, PERRL, sclerae nonicteric, pharyngeal mucosa pink and intact NECK: No JVD CHEST: Clear to auscultation. Normal effort. HEART: NL S1/S2, regular, no murmur ABDOMEN: BS+, soft, nontender, no mass, no bruits EXTREMITIES: DP intact bilaterally. Distal right foot amputation. Necrotic right toes (all 5). NEUROLOGIC: CN intact and symmetric to inspection. M
--- NOTE | 2019-12-31 15:48 | WPDCN ---
Assessment and Plan Additional Plan Ischemic, mummifying toes and plantar forefoot do not appear to be a cause of his leukocytosis. They do not present an urgent indication for surgical intervention.. Pt is willing to finish his treatment for pneumonia and be followed at interval as an outpatient for his foot. He may follow in my office or we may arrange for visits to the wound center. HPI Data of Consult Date/Time: 12/31/19 15:48 Requesting Physician: Josh Matias MD Primary Care Provider: Master Colbert MD Consult Narrative Narrative: Ludin Mcguire is a 74 year old male with multiple comorbidities including non compliance, Diabetes with complications of peripheral vascular disease, COPD, ictheosis, alcoholism, tobacco abuse. He is admitted with pneumonia and is found to also have 5 blackened toes on his left foot. He has bounding PT and DP pulses but the distal foot and toes are partially mummified. He demonstrates ability to move them. There is no drainage and no cellulitis. He is feeling better since admission. X-rays of his foot do not show evidence of osteomyeilits He lives at home and rarely gets out. He is unstable on his feet. He has had all toes on the right foot amputated some years ago and has a blister under some hypertrophic keratotic masses distally. No erythema. 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 Says he quit smoking about 2 years ago. He has been unwilling to move to a care facility. Wound nurses have been notified to see this patient. His WBC remains elevated due to pneumonia. 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 Anxiety Asthma CHF (congestive heart failure) Diastolic COPD (chronic obstructive pulmonary disease) COPD mixed type Cough CVA (cerebral vascular accident) Depression Diabetes mellitus Dyspnea on exertion Emphysema of lung GERD (gastroesophageal reflux disease) GERD without esophagitis HLD (hyperlipidemia) HTN (hypertension) Hypoxemia IBS (irritable bowel syndrome) Ichthyosis Mixed hyperlipidemia Neuropathy Osteomyelitis Peripheral neuropathy Pneumonia Sacrum and coccyx fracture Smoker Type 2 diabetes mellitus without complications Unspecified systolic (congestive) heart failure Surgical History Surgical History H/O bilateral cataract extraction H/O colonoscopy H/O hernia repair History of right hip replacement Hx of tonsillectomy Family History Family History (Updated 12/29/19 @ 21:41 by Nahomi Rosario NP) Mother Patient's mother is , Onset Age: 31 Father Suicide Social History Social History (Updated 12/29/19 @ 22:22 by Nahomi Rosario NP) Social History: Patient is a poor historian. Most of history is from that collected in the ED when the patient's daughter was available for information. Last admission his daughter Adwoa palmer with his power civil litigation attorney. The patient was a full code at that time. It was noted that he drinks most days of the week and consumes beer, lack a common whiskey and unknown quantities. He denies any drug use. He is . 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 Smoking packs per day: 1 Smoking cigarettes per day: 20.0 Years smoked: 58 Smoking pack-years: 58.00 Smoking status: Heavy tobacco smoker Tobacco type: cigarettes Second hand tobacco smoke exposure: No Smoking end date: 12/28/18 Alcohol intake: current Alcohol use details: Patient is a heavy drinker per daughter. Substance use: former Substance use type: former substance user and marijuana Living arrangements: alone Additional living arrangements comments: Per daughter, patient has a caregiver that is with him for a few hours each day Saturday through Saturday. He refuses rehab or assisted
[2019-12-31] MEDS: CHLORHEXIDINE GLUCONATE 4% SOL 120 ML BTL 1 APPLIC TOPICAL (16:45)
[2019-12-31] MEDS: SILVERGEL (ELTA) 45 ML 1 APPLIC TOPICAL (16:45)
[2019-12-31 17:32] LABS: Glucose Point of Care 183 (65-105)
[2019-12-31 20:51] LABS: Vancomycin Trough 11.4 ug/mL (10.0-20.0)
[2019-12-31] MEDS: INSULIN GLARGINE (*BKC) 100 UNITS/ML 21 UNITS SUB-Q (22:05)
[2019-12-31 22:12] LABS: Glucose Point of Care 193 (65-105)
[2020-01-01] VITALS (13 sets, daily range): BP systolic 110–160; BP diastolic 75–94; PULSE 70–96; RESP 16–20; TEMP 36.4–37.3; O2SAT 92–99
[2020-01-01 00:43] LABS: Creatinine Urine 23.5 mg/dL
[2020-01-01 00:52] LABS: Sodium Urine Random 107 meq/L
[2020-01-01] MEDS: CHLORDIAZEPOXIDE 10 MG CAPSULE PO ×4 (00:55→17:10)
[2020-01-01] MEDS: IPRATROPIUM BR 0.02% INH SOLN 0.5 MG/2.5 ML VIAL INHALATION ×4 (03:40→22:20)
[2020-01-01 06:26] LABS: Hematocrit 37.9 % (42.0-52.0); Hemoglobin 12.5 g/dL (14.0-18.0); Mean Corpuscular Hemoglobin 29.5 pg (26-34); Mean Corpuscular Volume 89.4 fl (80-100); Platelet Count Result 165 k/mm3 (150-375); Red Blood Count 4.24 M/mm3 (4.6-6.20); Red Cell Distribution Width 12.5 % (11.5-14.5); White Blood Count 20.6 K/mm3 (4.5-10.0)
[2020-01-01 06:29] LABS: Hemoglobin A1C 5.5 % (<5.7)
[2020-01-01 06:38] LABS: Blood Urea Nitrogen 16 mg/dL (9-20); Calcium 8.5 mg/dL (8.4-10.2); Carbon Dioxide 32 mmol/L (22-30); Chloride 97 mmol/L (98-107); Cholesterol 119 mg/dL (0-200); Estimated CRCL calculation 64 ml/min; Estimated Glomerular Filt Rate > 60; Glucose 119 mg/dL (75-110); HDL Direct 58 mg/dL; Potassium 3.4 mmol/L (3.4-5.0); Sodium 134 mmol/L (137-145); Triglycerides 166 mg/dL (<150)
[2020-01-01 06:48] LABS: LDL Cholesterol Direct 49 mg/dL
[2020-01-01] MEDS: THIAMINE HCL 100 MG TABLET PO (08:41)
[2020-01-01] MEDS: predniSONE 20 MG TABLET 40 MG PO (08:41)
[2020-01-01] MEDS: GABAPENTIN 100 MG CAPSULE PO ×3 (08:41→17:10)
[2020-01-01] MEDS: SIMVASTATIN 10 MG TABLET PO (08:42)
[2020-01-01] MEDS: PANTOPRAZOLE 40 MG TABLET PO (08:42)
[2020-01-01] MEDS: SERTRALINE HCL 50 MG TABLET PO (08:43)
[2020-01-01] MEDS: FOLIC ACID 1 MG TABLET PO (08:43)
[2020-01-01] MEDS: EUCERIN CREAM 120 GM JAR 1 APPLIC TOPICAL (08:45)
[2020-01-01] MEDS: METOPROLOL TARTRATE 25 MG TABLET PO ×2 (08:47→21:48)
[2020-01-01 08:48] LABS: Glucose Point of Care 103 (65-105)
[2020-01-01] MEDS: OXACILLIN SODIUM 2 GM in SODIUM CHLORIDE 0.9% IV 100 ML IVPB ×4 (08:52→21:49)
[2020-01-01] MEDS: SILVERGEL (ELTA) 45 ML 1 APPLIC TOPICAL (11:30)
[2020-01-01] MEDS: CHLORHEXIDINE GLUCONATE 4% SOL 120 ML BTL 1 APPLIC TOPICAL (11:30)
--- NOTE | 2020-01-01 11:31 | PM.PNGS ---
Progress Note: A&P Assessment and Plan (1) Diabetic foot infection: Onset Date: Unknown Code(s): E11.628 - Type 2 diabetes mellitus with other skin complications; L08.9 - Local infection of the skin and subcutaneous tissue, unspecified Status: Acute Assessment and Plan: Patient getting betadine dressing changes daily to the left foot wounds. He has strong pulses and this appears to be due to small vessel disease likely related to his diabetes. Dr. Heaton consulted for surgical evaluation for possible left transmetatarsal amputation. Dr. Heaton's recommendation noted and care of the left foot will be taken over by him. We will sign off at this point and monitor only peripherally as needed. (2) COPD mixed type: Code(s): J44.9 - Chronic obstructive pulmonary disease, unspecified Status: Chronic (3) Severe sepsis: Code(s): A41.9 - Sepsis, unspecified organism; R65.20 - Severe sepsis without septic shock Status: Acute Assessment and Plan: Continue IV antibiotics and management per Hospitalist. Left food wound less likely to be the source of the sepsis. 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 insulin use status Diabetes mellitus complication status: with hyperglycemia Qualified Code(s): E11.65 - Type 2 diabetes mellitus with hyperglycemia Code(s): E11.9 - Type 2 diabetes mellitus without complications Status: Acute (5) Smoker: Code(s): F17.200 - Nicotine dependence, unspecified, uncomplicated Status: Acute (6) Pneumonia: Qualifiers: Pneumonia type: due to unspecified organism Laterality: unspecified laterality Lung location: unspecified part of lung Qualified Code(s): J18.9 - Pneumonia, unspecified organism Code(s): J18.9 - Pneumonia, unspecified organism Status: Acute (7) Acute exacerbation of CHF (congestive heart failure): Qualifiers: Heart failure type: unspecified Qualified Code(s): I50.9 - Heart failure, unspecified Code(s): I50.9 - Heart failure, unspecified Status: Acute (8) Alcoholism: Code(s): F10.20 - Alcohol dependence, uncomplicated Status: Chronic Additional Plan Discussed plan of care with Dr. De. Subjective Subjective Date/Time Seen: 01/01/20 11:31 Patient reports: no new complaints Interval history: Patient seen and examined. Somewhat confused today. Unsure of where he is at but is aware of the year. Denies any pain or any new complaints today. Per the nurse, the patient seems more confused today. Review of Systems Review of Systems: All systems reviewed & are unremarkable except as noted in HPI and below Exam Const: General: comfortable and no acute distress Orientation/consciousness: oriented to person, No oriented to place and oriented to time Other: Sleeping when entering the room, but easily arousable by name. Resp: Effort & Inspection: normal respiratory effort and able to speak in complete sentences Skin: Other: Healed transmetatarsal amputation on right foot with callus. Small open area at the distal aspect of his right foot on the plantar side with no surrounding signs of infection. All 5 toes on the left foot are black/ischemic distally with also an area of a black superficial ulcer on the plantar aspect of his left foot near the pad of the ball of his foot. Slow capillary refill. Bounding DP pulse. Able to move toes. Neuro: General: no focal motor deficits Extrem: General: no edema Objective Data Vital Signs Vital Signs: Vital Signs - 24 hr 12/31/19 12:00 12/31/19 20:17 12/31/19 20:26 Temperature Pulse Rate 78 76 75 Respiratory Rate 18 18 Blood Pressure Pulse Oximetry 96 12/31/19 21:53 12/31/19 22:00 01/01/20 03:40 Temperature 36.6 C Pulse Rate 90 75 79 Respiratory Rate 18 18 Blood Pressure 122/64 Pul
[2020-01-01 13:52] LABS: Glucose Point of Care 172 (65-105)
--- NOTE | 2020-01-01 14:58 | PM.IMPN ---
Progress Note: A&P Assessment and Plan (1) Pneumonia: Qualifiers: Pneumonia type: due to unspecified organism Laterality: unspecified laterality Lung location: unspecified part of lung Qualified Code(s): J18.9 - Pneumonia, unspecified organism Code(s): J18.9 - Pneumonia, unspecified organism Status: Acute Assessment and Plan: Continue antibiotics as below (2) Bacteremia due to methicillin susceptible Staphylococcus aureus (MSSA): Code(s): R78.81 - Bacteremia; B95.61 - Methicillin susceptible Staphylococcus aureus infection as the cause of diseases classified elsewhere Status: Acute Assessment and Plan: Repeat blood cultures 3/6 Day 4 antibiotics, day 1 oxacillin (3) Severe sepsis: Code(s): A41.9 - Sepsis, unspecified organism; R65.20 - Severe sepsis without septic shock Status: Acute Assessment and Plan: Continue vancomycin and zosyn as ordered. Awaiting blood culture results. Infection sources: diabetic foot infection and pneumonia. MSSA and Gp B strep in blood 3/6 repeated blood cultures (4) Diabetic foot infection: Onset Date: Unknown Code(s): E11.628 - Type 2 diabetes mellitus with other skin complications; L08.9 - Local infection of the skin and subcutaneous tissue, unspecified Status: Acute Assessment and Plan: To f/u with plastics (Dr. Heaton) as outpatient Continue antibiotics. Needs left forefoot amputation (5) Acute exacerbation of chronic obstructive pulmonary disease: Code(s): J44.1 - Chronic obstructive pulmonary disease with (acute) exacerbation Status: Acute Assessment and Plan: Nebs, steroids, antibiotics, oxygen as needed (6) Alcoholism: Code(s): F10.20 - Alcohol dependence, uncomplicated Status: Chronic Assessment and Plan: ciwa Librium thiamin and folic acid (7) CHF (congestive heart failure): Qualifiers: Heart failure type: systolic Heart failure chronicity: chronic Qualified Code(s): I50.22 - Chronic systolic (congestive) heart failure Code(s): I50.9 - Heart failure, unspecified Status: Chronic Assessment and Plan: Clinically euvolemic. 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 Try Eucerin cream. May consider steroids. He takes p.o. steroids at home. However this could be delaying his healing. (10) Diabetes mellitus: Qualifiers: Diabetes mellitus type: type 2 Diabetes mellitus buttermaker insulin use: unspecified penitentiary insulin use status Diabetes mellitus complication status: with hyperglycemia Qualified Code(s): E11.65 - Type 2 diabetes mellitus with hyperglycemia Code(s): E11.9 - Type 2 diabetes mellitus without complications Status: Acute Assessment and Plan: Check Accu-Cheks AC and HS. A1c pending 3/ Added basal Lantus 21 U (11) Afib: Qualifiers: Atrial fibrillation type: unspecified Qualified Code(s): I48.91 - Unspecified atrial fibrillation Code(s): I48.91 - Unspecified atrial fibrillation Status: Chronic Assessment and Plan: 3/4 metoprolol resumed (12) HTN (hypertension): Qualifiers: Hypertension type: essential hypertension Qualified Code(s): I10 - Essential (primary) hypertension Code(s): I10 - Essential (primary) hypertension Status: Chronic Assessment and Plan: 3/4 Resumed low dose metoprolol (
[2020-01-01 17:06] LABS: Glucose Point of Care 308 (65-105)
[2020-01-01] MEDS: INSULIN ASPART (*BKC) 100 UNITS/ML SUB-Q (17:10)
[2020-01-01] MEDS: INSULIN GLARGINE (*BKC) 100 UNITS/ML 21 UNITS SUB-Q (21:49)
[2020-01-01 22:25] LABS: Glucose Point of Care 152 (65-105)
[2020-01-02] VITALS (15 sets, daily range): BP systolic 132–156; BP diastolic 64–90; PULSE 54–92; RESP 16–22; TEMP 36.8; O2SAT 93–98
[2020-01-02] MEDS: PANTOPRAZOLE 40 MG TABLET PO ×2 (00:58→09:54)
[2020-01-02] MEDS: CHLORDIAZEPOXIDE 10 MG CAPSULE PO ×3 (00:58→18:13)
[2020-01-02] MEDS: OXACILLIN SODIUM 2 GM in SODIUM CHLORIDE 0.9% IV 100 ML IVPB ×6 (00:59→21:23)
[2020-01-02] MEDS: IPRATROPIUM BR 0.02% INH SOLN 0.5 MG/2.5 ML VIAL INHALATION ×4 (02:28→19:50)
[2020-01-02 06:32] LABS: Hematocrit 39.3 % (42.0-52.0); Hemoglobin 12.7 g/dL (14.0-18.0); Mean Corpuscular HGB Conc 32.3 g/dl (32-36); Mean Corpuscular Hemoglobin 29.5 pg (26-34); Mean Corpuscular Volume 91.2 fl (80-100); Mean Platelet Volume 9.4 fl (7.4-10.4); Platelet Count Result 184 k/mm3 (150-375); Red Blood Count 4.31 M/mm3 (4.6-6.20); Red Cell Distribution Width 12.1 % (11.5-14.5)
[2020-01-02 07:35] LABS: Glucose Point of Care 85 (65-105)
[2020-01-02] MEDS: SIMVASTATIN 10 MG TABLET PO (09:54)
[2020-01-02] MEDS: SERTRALINE HCL 50 MG TABLET PO (09:54)
[2020-01-02] MEDS: THIAMINE HCL 100 MG TABLET PO (09:54)
[2020-01-02] MEDS: predniSONE 20 MG TABLET 40 MG PO (09:54)
[2020-01-02] MEDS: GABAPENTIN 100 MG CAPSULE PO ×3 (09:54→18:13)
[2020-01-02] MEDS: FOLIC ACID 1 MG TABLET PO (09:54)
[2020-01-02] MEDS: METOPROLOL TARTRATE 25 MG TABLET PO ×2 (09:55→12:14)
[2020-01-02] MEDS: EUCERIN CREAM 120 GM JAR 1 APPLIC TOPICAL (09:57)
[2020-01-02] MEDS: SILVERGEL (ELTA) 45 ML 1 APPLIC TOPICAL (09:57)
[2020-01-02] MEDS: CHLORHEXIDINE GLUCONATE 4% SOL 120 ML BTL 1 APPLIC TOPICAL (10:01)
--- NOTE | 2020-01-02 10:54 | PM.IMPN ---
Progress Note: A&P Assessment and Plan (1) Pneumonia: Qualifiers: Pneumonia type: due to unspecified organism Laterality: unspecified laterality Lung location: unspecified part of lung Qualified Code(s): J18.9 - Pneumonia, unspecified organism Code(s): J18.9 - Pneumonia, unspecified organism Status: Acute Assessment and Plan: Continue antibiotics as below (2) Bacteremia due to methicillin susceptible Staphylococcus aureus (MSSA): Code(s): R78.81 - Bacteremia; B95.61 - Methicillin susceptible Staphylococcus aureus infection as the cause of diseases classified elsewhere Status: Acute Assessment and Plan: Repeat blood cultures 3/6 Day 5 antibiotics, day 2 oxacillin (3) Severe sepsis: Code(s): A41.9 - Sepsis, unspecified organism; R65.20 - Severe sepsis without septic shock Status: Acute Assessment and Plan: Continue oxacillin Awaiting blood culture results. Infection sources: diabetic foot infection and pneumonia. MSSA and Gp B strep in blood 3/6 repeated blood cultures (4) Diabetic foot infection: Onset Date: Unknown Code(s): E11.628 - Type 2 diabetes mellitus with other skin complications; L08.9 - Local infection of the skin and subcutaneous tissue, unspecified Status: Acute Assessment and Plan: To f/u with plastics (Dr. Heaton) as outpatient Continue antibiotics. Needs left forefoot amputation (5) Acute exacerbation of chronic obstructive pulmonary disease: Code(s): J44.1 - Chronic obstructive pulmonary disease with (acute) exacerbation Status: Acute Assessment and Plan: Nebs, steroids, antibiotics, oxygen as needed (6) Alcoholism: Code(s): F10.20 - Alcohol dependence, uncomplicated Status: Chronic Assessment and Plan: ciwa Librium thiamin and folic acid (7) CHF (congestive heart failure): Qualifiers: Heart failure type: systolic Heart failure chronicity: chronic Qualified Code(s): I50.22 - Chronic systolic (congestive) heart failure Code(s): I50.9 - Heart failure, unspecified Status: Chronic Assessment and Plan: Clinically euvolemic. 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 Try Eucerin cream. May consider steroids. He takes p.o. steroids at home. However this could be delaying his healing. 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 A1c pending 12/30 Added basal Lantus 21 U (11) Afib: Qualifiers: Atrial fibrillation type: unspecified Qualified Code(s): I48.91 - Unspecified atrial fibrillation Code(s): I48.91 - Unspecified atrial fibrillation Status: Chronic Assessment and Plan: 3/4 metoprolol resumed (12) HTN (hypertension): Qualifiers: Hypertension type: essential hypertension Qualified Code(s): I10 - Essential (primary) hypertension Code(s): I10 - Essential (primary) hypertension Status: Chronic Assessment and Plan: 3/ Resumed low dose
[2020-01-02 12:20] LABS: Glucose Point of Care 128 (65-105)
[2020-01-02] MEDS: INSULIN ASPART (*BKC) 100 UNITS/ML SUB-Q (18:18)
[2020-01-02 18:22] LABS: Glucose Point of Care 244 (65-105)
--- NOTE | 2020-01-02 20:21 | WPDPN ---
Progress Note: A&P Assessment and Plan (1) Bacteremia due to methicillin susceptible Staphylococcus aureus (MSSA): Code(s): R78.81 - Bacteremia; B95.61 - Methicillin susceptible Staphylococcus aureus infection as the cause of diseases classified elsewhere Status: Acute Assessment and Plan: MSSA and Strep B bacteremia could possibly be from foot wound source. There is no wound culture. Only solution to the foot dry gangrene is trans metatarsal amputation. Not urgent. This gent will benefit from correction of pneumonia and improved nutrition. (2) Neuropathy: Code(s): G62.9 - Polyneuropathy, unspecified Status: Chronic (3) Alcoholism: Code(s): F10.20 - Alcohol dependence, uncomplicated Status: Chronic Assessment and Plan: Not controlled. (4) CHF (congestive heart failure): Qualifiers: Heart failure type: systolic Heart failure chronicity: chronic Qualified Code(s): I50.22 - Chronic systolic (congestive) heart failure Code(s): I50.9 - Heart failure, unspecified Status: Chronic Assessment and Plan: ECHO noted. Mild mitral and tricusp regurg. Mild pulmonary HTN (5) Smoker: Code(s): F17.200 - Nicotine dependence, unspecified, uncomplicated Status: Acute Assessment and Plan: No under control. (6) Diabetes mellitus: Qualifiers: Diabetes mellitus type: type 2 Diabetes mellitus cryptologist insulin use: unspecified fdc insulin use status Diabetes mellitus complication status: with hyperglycemia Qualified Code(s): E11.65 - Type 2 diabetes mellitus with hyperglycemia Code(s): E11.9 - Type 2 diabetes mellitus without complications Status: Acute Assessment and Plan: Not adequately controled at present. (7) Severe sepsis: Code(s): A41.9 - Sepsis, unspecified organism; R65.20 - Severe sepsis without septic shock Status: Acute (8) Diabetic foot infection: Onset Date: Unknown Code(s): E11.628 - Type 2 diabetes mellitus with other skin complications; L08.9 - Local infection of the skin and subcutaneous tissue, unspecified Status: Acute Assessment and Plan: No cellulitis. Small areas of skin break down between toes.. Osteomyelitis is a distinct possibility. Will proceed with MRI of left LE for planning of amputtion level. No surgery date at present. 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 Exam Narrative: Exam Narrative: Appears more alert. Engages in conversation. Hard of hearing. Const: General: comfortable Extrem: Other: No progression of wounds. No cellulitis. Some skin breakdown between toes. All 5 toes on the left are black and otherwise dry. Some skin peeling at the margins. Mummification includes the plantar forefoot. On right, the blister at scar line distally is drying up. Objective Data Vital Signs Vital Signs: Vital Signs - 24 hr 01/01/20 21:48 01/01/20 22:00 01/01/20 22:21 Temperature 36.4 C L Pulse Rate 76 75 85 Respiratory Rate 16 20 Blood Pressure 160/94 H Pulse Oximetry 99 98 01/01/20 22:31 01/02/20 02:28 01/02/20 02:35 Temperature Pulse Rate 83 80 82 Respiratory Rate 20 20 20 Blood Pressure Pulse Oximetry 01/02/20 06:00 01/02/20 08:44 01/02/20 08:54 Temperature 36.8 C Pulse Rate 80 54 L 56 L Respiratory Rate 20 16 16 Blood Pressure 156/90 H Pulse Oximetry 98 93 01/02/20 09:55 01/02/20 12:14 01/02/20 13:42 Temperature Pulse Rate 60 69 90 Respiratory Rate 18 Blood Pressure Pulse Oximetry 01/02/20 13:52 01/02/20 14:46 01/02/20 19:50 Temperature 36.8 C Pulse Rate 92 80 68 Respiratory Rate 18 22 H 18 Blood Pressure 132/64 Pulse Oximetry 93 01/02/20 19:53 01/02/20 19:55 Temperature Pulse Rate 72 Respiratory Rate 18 Blood Pressure Pulse Oximetry 95 Intake/Output Intake/Output: Intake & Output
[2020-01-02] MEDS: METOPROLOL TARTRATE 50 MG TAB PO (21:23)
[2020-01-02] MEDS: INSULIN GLARGINE (*BKC) 100 UNITS/ML 21 UNITS SUB-Q (21:23)
[2020-01-02 22:50] LABS: Glucose Point of Care 205 (65-105)
[2020-01-03] VITALS (14 sets, daily range): BP systolic 145–158; BP diastolic 73–90; PULSE 60–102; RESP 18–20; TEMP 36.4–36.7; O2SAT 94–99
[2020-01-03] MEDS: PANTOPRAZOLE 40 MG TABLET PO ×3 (01:16→19:55)
[2020-01-03] MEDS: CHLORDIAZEPOXIDE 10 MG CAPSULE PO ×4 (01:16→17:11)
[2020-01-03] MEDS: OXACILLIN SODIUM 2 GM in SODIUM CHLORIDE 0.9% IV 100 ML IVPB ×5 (01:18→19:55)
--- NOTE | 2020-01-03 01:40 | PC.NURSE ---
Daylight Savings Time For Daylight Savings Time Ending in the Fall - Clocks are moved back. For Daylight Savings Time Beginning in the Spring - Clocks are moved ahead. For [facility], the time of change occurs at 0200 hrs. Time is taken from the fountain server. This entry on the patient's chart recognizes the change in time reflected during documentation. Example: 2 entries for vital signs may be charted for 0200 hrs.
[2020-01-03] MEDS: IPRATROPIUM BR 0.02% INH SOLN 0.5 MG/2.5 ML VIAL INHALATION ×4 (01:53→22:20)
[2020-01-03 07:44] LABS: Glucose Point of Care 69 (65-105)
[2020-01-03] MEDS: GABAPENTIN 100 MG CAPSULE PO ×3 (08:14→17:08)
[2020-01-03] MEDS: FOLIC ACID 1 MG TABLET PO (08:14)
[2020-01-03] MEDS: SIMVASTATIN 10 MG TABLET PO (08:14)
[2020-01-03] MEDS: predniSONE 20 MG TABLET 40 MG PO (08:14)
[2020-01-03] MEDS: SILVERGEL (ELTA) 45 ML 1 APPLIC TOPICAL (08:14)
[2020-01-03] MEDS: SERTRALINE HCL 50 MG TABLET PO (08:15)
[2020-01-03] MEDS: THIAMINE HCL 100 MG TABLET PO (08:16)
[2020-01-03] MEDS: METOPROLOL TARTRATE 50 MG TAB PO ×2 (08:16→19:55)
[2020-01-03] MEDS: CHLORHEXIDINE GLUCONATE 4% SOL 120 ML BTL 1 APPLIC TOPICAL (08:18)
[2020-01-03] MEDS: EUCERIN CREAM 120 GM JAR 1 APPLIC TOPICAL (08:18)
[2020-01-03 11:02] LABS: IFOB Positive Control Positive; Immunochemical Fecal Occult Bl Negative (N)
[2020-01-03 13:24] LABS: Glucose Point of Care 167 (65-105)
[2020-01-03] MEDS: INSULIN ASPART (*BKC) 100 UNITS/ML SUB-Q (17:07)
[2020-01-03 17:41] LABS: Glucose Point of Care 220 (65-105)
--- NOTE | 2020-01-03 19:05 | PM.IMPN ---
Progress Note: A&P Assessment and Plan (1) Pneumonia: Qualifiers: Laterality: unspecified laterality Lung location: unspecified part of lung Pneumonia type: due to unspecified organism Qualified Code(s): J18.9 - Pneumonia, unspecified organism Code(s): J18.9 - Pneumonia, unspecified organism Status: Acute Assessment and Plan: Continue antibiotics as below (2) Bacteremia due to methicillin susceptible Staphylococcus aureus (MSSA): Code(s): R78.81 - Bacteremia; B95.61 - Methicillin susceptible Staphylococcus aureus infection as the cause of diseases classified elsewhere Status: Acute Assessment and Plan: Repeat blood cultures 3/6 negative thus far Day 6 antibiotics, day 3 oxacillin (3) Severe sepsis: Code(s): A41.9 - Sepsis, unspecified organism; R65.20 - Severe sepsis without septic shock Status: Acute Assessment and Plan: Continue oxacillin Awaiting blood culture results. Infection sources: diabetic foot infection and pneumonia. MSSA and Gp B strep in blood 6 repeated blood cultures (4) Diabetic foot infection: Onset Date: Unknown Code(s): E11.628 - Type 2 diabetes mellitus with other skin complications; L08.9 - Local infection of the skin and subcutaneous tissue, unspecified Status: Acute Assessment and Plan: To f/u with plastics (Dr. Heaton) as outpatient Continue antibiotics. Needs left forefoot amputation (5) Acute exacerbation of chronic obstructive pulmonary disease: Code(s): J44.1 - Chronic obstructive pulmonary disease with (acute) exacerbation Status: Acute Assessment and Plan: Nebs, steroids, antibiotics, oxygen as needed (6) Alcoholism: Code(s): F10.20 - Alcohol dependence, uncomplicated Status: Chronic Assessment and Plan: ciwa Librium thiamin and folic acid (7) CHF (congestive heart failure): Qualifiers: Heart failure chronicity: chronic Heart failure type: systolic Qualified Code(s): I50.22 - Chronic systolic (congestive) heart failure Code(s): I50.9 - Heart failure, unspecified Status: Chronic Assessment and Plan: Clinically euvolemic. 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 Try Eucerin cream. May consider steroids. He takes p.o. steroids at home. However this could be delaying his healing. 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 A1c pending 12/30 Added basal Lantus 21 U (11) Afib: Qualifiers: Atrial fibrillation type: unspecified Qualified Code(s): I48.91 - Unspecified atrial fibrillation Code(s): I48.91 - Unspecified atrial fibrillation Status: Chronic Assessment and Plan: 3 metoprolol resumed (12) HTN (hypertension): Qualifiers: Hypertension type: essential hypertension Qualified Code(s): I10 - Essential (primary) hypertension Code(s): I10 - Essential (primary) hypertension Status: Chronic Assessment and Plan: 12/29
[2020-01-03] MEDS: INSULIN GLARGINE (*BKC) 100 UNITS/ML 21 UNITS SUB-Q (21:15)
[2020-01-03 22:56] LABS: Glucose Point of Care 225 (65-105)
[2020-01-04] VITALS (13 sets, daily range): BP systolic 129–143; BP diastolic 58–67; PULSE 58–88; RESP 16–20; TEMP 36.8–37.1; O2SAT 93–99
[2020-01-04] MEDS: OXACILLIN SODIUM 2 GM in SODIUM CHLORIDE 0.9% IV 100 ML IVPB ×5 (00:16→22:10)
[2020-01-04] MEDS: CHLORDIAZEPOXIDE 10 MG CAPSULE PO ×4 (00:16→17:48)
[2020-01-04] MEDS: IPRATROPIUM BR 0.02% INH SOLN 0.5 MG/2.5 ML VIAL INHALATION ×4 (04:14→19:41)
[2020-01-04 06:54] LABS: Hematocrit 36.2 % (42.0-52.0); Hemoglobin 11.8 g/dL (14.0-18.0); Mean Corpuscular HGB Conc 32.6 g/dl (32-36); Mean Corpuscular Hemoglobin 29.6 pg (26-34); Mean Corpuscular Volume 90.7 fl (80-100); Mean Platelet Volume 9.7 fl (7.4-10.4); Platelet Count Result 213 k/mm3 (150-375); Red Blood Count 3.99 M/mm3 (4.6-6.20); Red Cell Distribution Width 12.4 % (11.5-14.5); White Blood Count 12.5 K/mm3 (4.5-10.0)
[2020-01-04 07:16] LABS: Blood Urea Nitrogen 14 mg/dL (9-20); CRP 5.4 mg/dL (<1.0); Calcium 7.6 mg/dL (8.4-10.2); Carbon Dioxide 26 mmol/L (22-30); Chloride 101 mmol/L (98-107); Estimated CRCL calculation 79 ml/min; Estimated Glomerular Filt Rate > 60; Glucose 144 mg/dL (75-110); Potassium 3.2 mmol/L (3.4-5.0); Sodium 134 mmol/L (137-145)
[2020-01-04 07:49] LABS: Glucose Point of Care 110 (65-105)
[2020-01-04] MEDS: FOLIC ACID 1 MG TABLET PO (09:01)
[2020-01-04] MEDS: GABAPENTIN 100 MG CAPSULE PO ×3 (09:01→17:04)
[2020-01-04] MEDS: PANTOPRAZOLE 40 MG TABLET PO ×2 (09:01→21:10)
[2020-01-04] MEDS: predniSONE 20 MG TABLET 40 MG PO (09:02)
[2020-01-04] MEDS: SERTRALINE HCL 50 MG TABLET PO (09:02)
[2020-01-04] MEDS: THIAMINE HCL 100 MG TABLET PO (09:02)
[2020-01-04] MEDS: SIMVASTATIN 10 MG TABLET PO (09:02)
[2020-01-04] MEDS: METOPROLOL TARTRATE 50 MG TAB PO ×2 (10:26→20:46)
[2020-01-04] MEDS: EUCERIN CREAM 120 GM JAR 1 APPLIC TOPICAL (11:00)
[2020-01-04] MEDS: SILVERGEL (ELTA) 45 ML 1 APPLIC TOPICAL (11:00)
[2020-01-04] MEDS: CHLORHEXIDINE GLUCONATE 4% SOL 120 ML BTL 1 APPLIC TOPICAL (11:00)
[2020-01-04 12:20] LABS: Glucose Point of Care 160 (65-105)
--- NOTE | 2020-01-04 14:13 | PM.IMPN ---
Progress Note: A&P Assessment and Plan (1) Pneumonia: Qualifiers: Laterality: unspecified laterality Lung location: unspecified part of lung Pneumonia type: due to unspecified organism Qualified Code(s): J18.9 - Pneumonia, unspecified organism Code(s): J18.9 - Pneumonia, unspecified organism Status: Acute Assessment and Plan: Continue antibiotics as below (2) Bacteremia due to methicillin susceptible Staphylococcus aureus (MSSA): Code(s): R78.81 - Bacteremia; B95.61 - Methicillin susceptible Staphylococcus aureus infection as the cause of diseases classified elsewhere Status: Acute Assessment and Plan: Source clinically left 5th toe osteomyelitis, likely chronic Repeat blood cultures 12/31 POSITIVE MSSA 1/2 Day 7 antibiotics, day 4 oxacillin (3) Severe sepsis: Code(s): A41.9 - Sepsis, unspecified organism; R65.20 - Severe sepsis without septic shock Status: Acute Assessment and Plan: Continue oxacillin Infection sources: diabetic foot infection and pneumonia. MSSA and Gp B strep in blood 12/31 repeated blood cultures also POSITIVE 10/29 (4) Diabetic foot infection: Onset Date: Unknown Code(s): E11.628 - Type 2 diabetes mellitus with other skin complications; L08.9 - Local infection of the skin and subcutaneous tissue, unspecified Status: Acute Assessment and Plan: To f/u with plastics (Dr. Heaton) as outpatient Continue antibiotics. Needs left forefoot amputation 01/03 MRI with osteomyelitis left 5th toe D/w Dr. Heaton and amputation left forefoot TBS (5) Acute exacerbation of chronic obstructive pulmonary disease: Code(s): J44.1 - Chronic obstructive pulmonary disease with (acute) exacerbation Status: Acute Assessment and Plan: Nebs, steroids, antibiotics, oxygen as needed (6) Alcoholism: Code(s): F10.20 - Alcohol dependence, uncomplicated Status: Chronic Assessment and Plan: ciwa Librium thiamin and folic acid (7) CHF (congestive heart failure): Qualifiers: Heart failure chronicity: chronic Heart failure type: systolic Qualified Code(s): I50.22 - Chronic systolic (congestive) heart failure Code(s): I50.9 - Heart failure, unspecified Status: Chronic Assessment and Plan: Clinically euvolemic. 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 Try Eucerin cream. May consider steroids. He takes p.o. steroids at home. However this could be delaying his healing. 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 A1c pending 12/30 Added basal Lantus 21 U 01/03 FBS 110 (11) Afib: Qualifiers: Atrial fibrillation type: unspecified Qualified Code(s): I48.91 - Unspecified atrial fibrillation Code(s): I48.91 - Unspecified atrial fibrillation Status: Chronic Assessment and Plan: 12/29 metoprolol resumed (12) HTN (hypertension): Qualifiers: Hypertension type: essential hypertension Harman
[2020-01-04] MEDS: POTASSIUM CHLORIDE 20 MEQ TABLET 40 MEQ PO (14:30)
[2020-01-04 16:35] LABS: Glucose Point of Care 198 (65-105)
[2020-01-04 20:41] LABS: Glucose Point of Care 199 (65-105)
[2020-01-04] MEDS: INSULIN GLARGINE (*BKC) 100 UNITS/ML 21 UNITS SUB-Q (20:47)
[2020-01-05] VITALS (10 sets, daily range): BP systolic 152–163; BP diastolic 51–69; PULSE 60–86; RESP 16–189; TEMP 36.6–37; O2SAT 98
[2020-01-05] MEDS: CHLORDIAZEPOXIDE 10 MG CAPSULE PO ×2 (00:05→05:48)
[2020-01-05] MEDS: OXACILLIN SODIUM 2 GM in SODIUM CHLORIDE 0.9% IV 100 ML IVPB ×5 (01:01→20:31)
[2020-01-05] MEDS: IPRATROPIUM BR 0.02% INH SOLN 0.5 MG/2.5 ML VIAL INHALATION ×4 (01:35→20:33)
[2020-01-05 06:36] LABS: Hematocrit 33.1 % (42.0-52.0); Hemoglobin 10.7 g/dL (14.0-18.0); Mean Corpuscular HGB Conc 32.3 g/dl (32-36); Mean Corpuscular Hemoglobin 29.6 pg (26-34); Mean Corpuscular Volume 91.7 fl (80-100); Mean Platelet Volume 9.4 fl (7.4-10.4); Platelet Count Result 219 k/mm3 (150-375); Red Blood Count 3.61 M/mm3 (4.6-6.20); Red Cell Distribution Width 12.5 % (11.5-14.5); White Blood Count 12.5 K/mm3 (4.5-10.0)
[2020-01-05 06:48] LABS: Blood Urea Nitrogen 14 mg/dL (9-20); CRP 3.7 mg/dL (<1.0); Calcium 7.7 mg/dL (8.4-10.2); Carbon Dioxide 28 mmol/L (22-30); Chloride 102 mmol/L (98-107); Estimated CRCL calculation 70 ml/min; Estimated Glomerular Filt Rate > 60; Glucose 144 mg/dL (75-110); Magnesium 1.5 mg/dL (1.6-2.3); Potassium 3.6 mmol/L (3.4-5.0); Sodium 136 mmol/L (137-145)
[2020-01-05 07:57] LABS: Glucose Point of Care 112 (65-105)
[2020-01-05] MEDS: FOLIC ACID 1 MG TABLET PO (09:13)
[2020-01-05] MEDS: PANTOPRAZOLE 40 MG TABLET PO ×2 (09:13→20:24)
[2020-01-05] MEDS: METOPROLOL TARTRATE 50 MG TAB PO ×2 (09:13→20:24)
[2020-01-05] MEDS: SERTRALINE HCL 50 MG TABLET PO (09:13)
[2020-01-05] MEDS: predniSONE 20 MG TABLET 40 MG PO (09:14)
[2020-01-05] MEDS: SIMVASTATIN 10 MG TABLET PO (09:14)
[2020-01-05] MEDS: GABAPENTIN 100 MG CAPSULE PO ×3 (09:14→18:00)
[2020-01-05] MEDS: EUCERIN CREAM 120 GM JAR 1 APPLIC TOPICAL (09:17)
[2020-01-05] MEDS: THIAMINE HCL 100 MG TABLET PO (09:17)
[2020-01-05] MEDS: SILVERGEL (ELTA) 45 ML 1 APPLIC TOPICAL (09:17)
--- NOTE | 2020-01-05 12:23 | WPDPN ---
Progress Note: A&P Additional Plan No improvement in left foot. MRI reports osteomyelitis of the 5 toe. Toe is possibly the source of the septicemia. Discussed today the need to amputate the toes. Based upon the presence of strong ankle and pedal puolses, a 5 digit trans metatarsal amputation similar to his right foot would seem to be appropriate. Discussed the reason for distal amputation of toes and forefoot with patient. He has had this operation on the right. He agrees to this plan. Hopes wi will be able to leave sufficient foot to allow him to ambulate. Will schedule 5 toe transmetatarsal amputation at the left foot for under general. Objective Data Vital Signs Vital Signs: Vital Signs - 24 hr 01/04/20 14:00 01/04/20 14:40 01/04/20 14:47 Temperature 36.8 C Pulse Rate 69 65 81 Respiratory Rate 16 18 18 Blood Pressure 129/67 Pulse Oximetry 94 01/04/20 19:42 01/04/20 19:52 01/04/20 20:46 Temperature Pulse Rate 58 L 58 L 64 Respiratory Rate 16 16 Blood Pressure Pulse Oximetry 97 01/04/20 22:00 01/05/20 01:35 01/05/20 01:45 Temperature 36.9 C Pulse Rate 62 60 60 Respiratory Rate 20 16 16 Blood Pressure 143/66 H Pulse Oximetry 99 01/05/20 06:00 01/05/20 09:03 01/05/20 09:16 Temperature 37.0 C Pulse Rate 67 84 79 Respiratory Rate 16 18 18 Blood Pressure 152/51 H Pulse Oximetry 98 98 Intake/Output Intake/Output: Intake & Output 01/02/20 01/03/20 01/04/20 01/05/20 22:59 23:59 23:59 23:59 Intake Total 2120 1060 Output Total 1300 1500 Balance 820 -440 Meds/Results Medications: Active Medications Generic Name Dose Route Start Last Admin Trade Name Freq PRN Reason Stop Dose Admin Acetaminophen 650 mg 12/30/19 23:59 12/31/19 22:09 Tylenol Tablet PO 650 mg Q4H PRN Administration Mild Pain (1-3) or Fever Chlordiazepoxide HCl 10 mg 12/30/19 00:00 01/05/20 05:48 Librium Po PO 10 mg Q6HR KALPESH Administration Chlorhexidine Gluconate 1 applic 12/29/19 18:15 01/04/20 11:00 Hibiclens TOPICAL 1 applic DAILY KALPESH Administration Dextrose 12.5 gm 12/29/19 22:28 Dextrose 50% Syringe IV PUSH PRN PRN Hypoglycemia Protocol Folic Acid 1 mg 12/30/19 09:00 01/05/20 09:13 Folic Acid PO 1 mg DAILY KALPESH Administration Gabapentin 100 mg 12/29/19 21:00 01/05/20 09:14 Neurontin PO 100 mg TID KALPESH Administration Glucagon 1 mg 12/29/19 22:28 Glucagon For Inj IM PRN PRN Hypoglycemia Protocol Glucose 15 gm 12/29/19 22:28 Glutose 15 PO PRN PRN Hypoglycemia Protocol Dextrose 1,000 mls @ 100 mls/hr 12/29/19 22:28 Dextrose 5% 1,000 Ml IVPB PRN PRN Hypoglycemia Protocol Oxacillin Sodium 2 gm/ Sodium 100 mls @ 200 mls/hr 01/01/20 09:00 01/05/20 09:28 Chloride IVPB 100 mls/hr Q4HR KALPESH Administration Insulin Aspart 2 - 5 units 12/30/19 08:00 01/04/20 16:51 Novolog SUB-Q Not Given [facility] Protocol Insulin Glargine 21 units 12/31/19 21:00 01/04/20 20:47 Lantus 0.25 units/kg (21 units) 21 units SUB-Q Administration HS KALPESH Ipratropium [place] 0.5 mg 12/30/19 02:00 01/05/20 09:00 Atrovent Neb INHALATION 0.5 mg Q6HRT KALPESH Administration Levalbuterol HCl 1.25 mg 12/30/19 02:00 01/05/20 09:00 Xopenex 1.25 Mg/0.5 Ml INHALATION 1.25 mg Q6HRT KALPESH Administration Metoprolol Tartrate 50 mg 01/02/20 21:00 01/05/20 09:13 Lopressor PO 50 mg Q12HR KALPESH Administration Multi-Ingred Cream/Lotion/Oil/Oint 1 applic 12/30/19 09:00 01/05/20 09:17 Minerin Creme TOPICAL 1 applic QAM KALPESH Administration Ondansetron HCl 4 mg 12/29/19 14:34 Zofran Inj IV PUSH Q4H PRN Nausea Pantoprazole Sodium 40 mg 12/29/19 21:00 01/05/20 09:13 Protonix PO 40 mg Q12HR KALPESH Administration Prednisone 40 mg 12/30/19 09:56 01/05/20 09:14 Prednisone PO
[2020-01-05] MEDS: CHLORHEXIDINE GLUCONATE 4% SOL 120 ML BTL 1 APPLIC TOPICAL (13:30)
[2020-01-05 14:21] LABS: Glucose Point of Care 118 (65-105)
--- NOTE | 2020-01-05 16:06 | PM.IMPN ---
Progress Note: A&P Assessment and Plan (1) Pneumonia: Qualifiers: Laterality: unspecified laterality Lung location: unspecified part of lung Pneumonia type: due to unspecified organism Qualified Code(s): J18.9 - Pneumonia, unspecified organism Code(s): J18.9 - Pneumonia, unspecified organism Status: Acute Assessment and Plan: Continue antibiotics as below, continues to improve (2) Bacteremia due to methicillin susceptible Staphylococcus aureus (MSSA): Code(s): R78.81 - Bacteremia; B95.61 - Methicillin susceptible Staphylococcus aureus infection as the cause of diseases classified elsewhere Status: Acute Assessment and Plan: Source clinically left 5th toe osteomyelitis, likely chronic, transthoracic echo normal EF and no vegetations seen Repeat blood cultures 12/31 POSITIVE MSSA 1/2 Day 7 antibiotics, day 5 oxacillin (3) Severe sepsis: Code(s): A41.9 - Sepsis, unspecified organism; R65.20 - Severe sepsis without septic shock Status: Acute Assessment and Plan: Continue oxacillin Infection sources: diabetic foot infection and pneumonia. MSSA and Gp B strep in blood 12/31 repeated blood cultures also POSITIVE 1/2 Cultures from 01/03 still pending (4) Diabetic foot infection: Onset Date: Unknown Code(s): E11.628 - Type 2 diabetes mellitus with other skin complications; L08.9 - Local infection of the skin and subcutaneous tissue, unspecified Status: Acute Assessment and Plan: To f/u with plastics (Dr. Heaton) as outpatient Continue antibiotics. Needs left forefoot amputation 01/03 MRI with osteomyelitis left 5th toe D/w Dr. Heaton and amputation left forefoot TBS tentatively scheduled for 01/06 (5) Acute exacerbation of chronic obstructive pulmonary disease: Code(s): J44.1 - Chronic obstructive pulmonary disease with (acute) exacerbation Status: Acute Assessment and Plan: Nebs, steroids, antibiotics, oxygen as needed (6) Alcoholism: Code(s): F10.20 - Alcohol dependence, uncomplicated Status: Chronic Assessment and Plan: ciwa Librium thiamin and folic acid and thiamin (7) CHF (congestive heart failure): Qualifiers: Heart failure chronicity: chronic Heart failure type: systolic Qualified Code(s): I50.22 - Chronic systolic (congestive) heart failure Code(s): I50.9 - Heart failure, unspecified Status: Chronic Assessment and Plan: Clinically euvolemic. 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 Try Eucerin cream. May consider steroids. He takes p.o. steroids at home. However this could be delaying his healing. 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 A1c pending 12/30 Added basal Lantus 21 U 01/03 FBS 144 (11) Afib: Qualifiers: Atrial fibrillation type: unspecified Qualified Code(s): I48.91 - Unspecified atrial fibrillation
[2020-01-05] MEDS: LOSARTAN POTASSIUM 100 MG TABLET PO (17:59)
[2020-01-05] MEDS: MAGNESIUM SULF 2 GM/WATER 50ML 2 GM/50 ML BAG IVPB (18:10)
[2020-01-05 18:36] LABS: Glucose Point of Care 174 (65-105)
[2020-01-05] MEDS: ACETAMINOPHEN 325 MG TABLET 650 MG PO (20:30)
[2020-01-05] MEDS: INSULIN GLARGINE (*BKC) 100 UNITS/ML 21 UNITS SUB-Q (20:38)
[2020-01-05 22:36] LABS: Glucose Point of Care 253 (65-105)
[2020-01-06] VITALS (12 sets, daily range): BP systolic 124–146; BP diastolic 67–76; PULSE 59–89; RESP 16–18; TEMP 36.6–37.1; O2SAT 92–99
[2020-01-06] MEDS: OXACILLIN SODIUM 2 GM in SODIUM CHLORIDE 0.9% IV 100 ML IVPB ×6 (00:06→23:11)
[2020-01-06] MEDS: CHLORDIAZEPOXIDE 10 MG CAPSULE PO ×5 (00:07→23:11)
[2020-01-06] MEDS: IPRATROPIUM BR 0.02% INH SOLN 0.5 MG/2.5 ML VIAL INHALATION ×4 (01:57→19:44)
[2020-01-06 06:57] LABS: Glucose Point of Care 82 (65-105)
[2020-01-06 07:41] LABS: Basophils Absolute Auto 0.1 K/mm3 (0.0-0.1); Basophils Percent Auto 0.6 % (0.2-1.2); Eosinophils Absolute Auto 0.1 K/mm3 (0-0.3); Eosinophils Percent Auto 0.4 % (0-4.4); Hematocrit 36.7 % (42.0-52.0); Immature Granulocyte Absolute 1.89 K/mm3 (0.00-0.031); Immature Granulocyte Percent A 10.4 % (0-0.5); Lymphocytes Absolute Auto 1.99 K/mm3 (0.9-3.2); Lymphocytes Percent Auto 10.9 % (18.3-44.2); Mean Corpuscular HGB Conc 32.7 g/dl (32-36); Mean Corpuscular Hemoglobin 29.6 pg (26-34); Mean Corpuscular Volume 90.6 fl (80-100); Mean Platelet Volume 8.9 fl (7.4-10.4); Monocytes Absolute Auto 0.8 K/mm3 (0.1-0.6); Monocytes Percent Auto 4.5 % (2.6-8.5); Neutrophils Absolute Auto 13.3 K/mm3 (1.3-6.7); Neutrophils Percent Auto 73.2 % (45.5-73.1); Platelet Count Result 273 k/mm3 (150-375); Red Blood Count 4.05 M/mm3 (4.6-6.20); Red Cell Distribution Width 12.4 % (11.5-14.5); White Blood Count 18.2 K/mm3 (4.5-10.0)
[2020-01-06 07:48] LABS: Blood Urea Nitrogen 17 mg/dL (9-20); Calcium 8.6 mg/dL (8.4-10.2); Carbon Dioxide 31 mmol/L (22-30); Chloride 100 mmol/L (98-107); Estimated CRCL calculation 70 ml/min; Estimated Glomerular Filt Rate > 60; Glucose 88 mg/dL (75-110); Magnesium 1.8 mg/dL (1.6-2.3); Phosphorus 3.7 mg/dL (2.5-4.5); Potassium 3.7 mmol/L (3.4-5.0); Sodium 134 mmol/L (137-145)
[2020-01-06] MEDS: predniSONE 10 MG TABLET 30 MG PO (09:39)
[2020-01-06] MEDS: LOSARTAN POTASSIUM 100 MG TABLET PO (09:40)
[2020-01-06] MEDS: FOLIC ACID 1 MG TABLET PO (09:40)
[2020-01-06] MEDS: METOPROLOL TARTRATE 50 MG TAB PO ×2 (09:40→20:32)
[2020-01-06] MEDS: GABAPENTIN 100 MG CAPSULE PO ×3 (09:40→18:32)
[2020-01-06] MEDS: PANTOPRAZOLE 40 MG TABLET PO ×2 (09:41→23:11)
[2020-01-06] MEDS: SERTRALINE HCL 50 MG TABLET PO (09:41)
[2020-01-06] MEDS: THIAMINE HCL 100 MG TABLET PO (09:41)
[2020-01-06] MEDS: SIMVASTATIN 10 MG TABLET PO (09:41)
[2020-01-06] MEDS: CHLORHEXIDINE GLUCONATE 4% SOL 120 ML BTL 1 APPLIC TOPICAL (09:43)
[2020-01-06] MEDS: EUCERIN CREAM 120 GM JAR 1 APPLIC TOPICAL (09:43)
[2020-01-06] MEDS: SILVERGEL (ELTA) 45 ML 1 APPLIC TOPICAL (09:43)
[2020-01-06 13:13] LABS: Glucose Point of Care 126 (65-105)
--- NOTE | 2020-01-06 15:26 | PM.IMPN ---
Progress Note: A&P Assessment and Plan (1) Pneumonia: Qualifiers: Pneumonia type: due to unspecified organism Laterality: unspecified laterality Lung location: unspecified part of lung Qualified Code(s): J18.9 - Pneumonia, unspecified organism Code(s): J18.9 - Pneumonia, unspecified organism Status: Acute Assessment and Plan: Continue antibiotics as below, continues to improve D #8 of antibiotics and D# 6 oxacillin for MSSA (2) Bacteremia due to methicillin susceptible Staphylococcus aureus (MSSA): Code(s): R78.81 - Bacteremia; B95.61 - Methicillin susceptible Staphylococcus aureus infection as the cause of diseases classified elsewhere Status: Acute Assessment and Plan: Source clinically left 5th toe osteomyelitis, likely chronic, transthoracic echo normal EF and no vegetations seen Repeat blood cultures 12/31 POSITIVE MSSA 1/2 Day 8 antibiotics, day 6 oxacillin (3) Severe sepsis: Code(s): A41.9 - Sepsis, unspecified organism; R65.20 - Severe sepsis without septic shock Status: Acute Assessment and Plan: Continue oxacillin Infection sources: diabetic foot infection and pneumonia. MSSA and Gp B strep in blood 12/31 repeated blood cultures also POSITIVE 1/2 Cultures from 01/03 so far negative (4) Diabetic foot infection: Onset Date: Unknown Code(s): E11.628 - Type 2 diabetes mellitus with other skin complications; L08.9 - Local infection of the skin and subcutaneous tissue, unspecified Status: Acute Assessment and Plan: To f/u with plastics (Dr. Heaton) as outpatient Continue antibiotics. Needs left forefoot amputation 01/03 MRI with osteomyelitis left 5th toe D/w Dr. Heaton and amputation left forefoot TBS tentatively scheduled for 01/06 (5) Acute exacerbation of chronic obstructive pulmonary disease: Code(s): J44.1 - Chronic obstructive pulmonary disease with (acute) exacerbation Status: Acute Assessment and Plan: Nebs, steroids(tapering), antibiotics, oxygen as needed (6) Alcoholism: Code(s): F10.20 - Alcohol dependence, uncomplicated Status: Chronic Assessment and Plan: ciwa Librium thiamin and folic acid and thiamin (7) CHF (congestive heart failure): Qualifiers: Heart failure type: systolic Heart failure chronicity: chronic Qualified Code(s): I50.22 - Chronic systolic (congestive) heart failure Code(s): I50.9 - Heart failure, unspecified Status: Chronic Assessment and Plan: Clinically euvolemic. 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 Try Eucerin cream. May consider steroids. He takes p.o. steroids at home. However this could be delaying his healing. 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 A1c only 5.5 12/30 Added basal Lantus 21 U 01/05 FBS 88 and with infection under better control and decreased steroids will decrease l
--- NOTE | 2020-01-06 16:55 | WPDANESEPP ---
Anes - Eval Pre Procedure Procedure: Operation Date: 01/07/20 11:00 Proposed Procedures p Left Foot Five Toe Transmetatarsal Amputation - Ravin Heaton MD Date/Time: 01/06/20 16:55 Pre Op Diagnosis: Infection L toes Patient Data Age: 74 Gender: M Height: 6 ft Weight: 82.6 kg Last Vital Signs Temp 98.7 F 01/06/20 14:00 Pulse 73 01/06/20 14:14 Resp 18 01/06/20 14:14 BP 124/67 01/06/20 14:00 Pulse Ox 98 01/06/20 14:00 Allergies Allergy/AdvReac Type Severity Reaction Status Date / Time niacin Allergy Unknown Verified 11/15/15 11:43 Home Medications Medication Instructions Recorded Confirmed Type tramadol 50 mg tablet 50 mg PO Q6H PRN #60 tablet 09/22/19 12/29/19 Rx albuterol sulfate 90 mcg/actuation 1 puff INHALATION Q4H PRN 09/30/19 12/29/19 History aerosol inhaler ipratropium 0.5 mg-albuterol 3 mg 3 ml INHALATION Q6H PRN 09/30/19 12/29/19 History (2.5 mg base)/3 mL nebulization soln metoprolol tartrate 50 mg tablet 50 mg PO Q12H 09/30/19 12/29/19 History omeprazole 40 mg capsule,delayed 40 mg PO BID 09/30/19 12/29/19 History release prednisone 2.5 mg tablet 2.5 mg PO DAILY 09/30/19 12/29/19 History sennosides 8.6 mg capsule 8.6 mg PO BID PRN 09/30/19 12/29/19 History sertraline 50 mg tablet 50 mg PO DAILY 09/30/19 12/29/19 History simvastatin 10 mg tablet 10 mg PO DAILY #90 tablet 10/07/19 12/29/19 Rx amlodipine 10 mg tablet 10 mg PO DAILY #90 tablet 10/22/19 12/29/19 Rx gabapentin 100 mg capsule 100 mg PO TID #90 cap 12/01/19 12/29/19 Rx aspirin [Aspirin Low Dose] 81 mg PO DAILY 12/29/19 12/29/19 History multivitamin [Daily Multi-Vitamin] 1 tablet PO DAILY 12/29/19 12/29/19 History losartan 100 mg tablet See Rx Instructions .ROUTE 12/30/19 Rx .COMPLEX #30 tablet alprazolam 1 mg tablet 1 mg PO BID PRN #60 tablet 01/01/20 Rx Laboratory Tests 01/05/20 01/05/20 01/06/20 17:57 20:37 06:54 WBC RBC Hgb Hct MCV MCH MCHC RDW Plt Count MPV Immature Gran % (Auto) Neut % (Auto) Lymph % (Auto) [place] % (Auto) Eos % (Auto) Baso % (Auto) Lymph # (Auto) [place] # (Auto) Eos # (Auto) Baso # (Auto) Abs Immat Gran (auto) Absolute Neuts (auto) Absolute Nucleated RBC Nucleated RBC % Sodium Potassium Chloride Carbon Dioxide BUN Creatinine Estim Creat Clear Calc Estimated GFR Glucose POC Capillary Glucose 174 mg/dl H mg/dl 253 mg/dl H mg/dl 82 mg/dl mg/dl (65-105) (65-105) (65-105) Calcium Phosphorus Magnesium 01/06/20 01/06/20 01/06/20 07:29 07:29 12:53 WBC 18.2 K/mm3 H K/mm3 (4.5-10.0) RBC 4.05 M/mm3 L M/mm3 (4.6-6.20) Hgb 12.0 g/dL L g/dL (14.0-18.0) Hct 36.7 % L % (42.0-52.0) MCV 90.6 fl fl (80-100) MCH 29.6 pg pg (26-34) MCHC 32.7 g/dl g/dl (32-36) RDW 12.4 % % (11.5-14.5) Plt Count 273 k/mm3 k/mm3 (150-375) MPV 8.9 fl fl (7.4-10.4) Immature Gran % (Auto) 10.4 % H % (0-0.5) Neut % (Auto) 73.2 % H % (45.5-73.1) Lymph % (Auto) 10.9 % L % (18.3-44.2) [place] % (Auto) 4.5 % % (2.6-8.5) Eos % (Auto) 0.4 % % (0-4.4) Baso % (Auto) 0.6 % % (0.2-1.2) Lymph # (Auto) 1.99 K/mm3 K/mm3 (0.9-3.2) [place] # (Auto) 0.8 K/mm3 H K/mm3 (0.1-0.6) Eos # (Auto) 0.1 K/mm3 K/mm3 (0-0.3) Baso # (Auto) 0.1 K/mm3 K/mm3 (0.0-0.1) Abs Immat Gran (auto) 1.89 K/mm3 H K/mm3 (0.00-0.031) Absolute Neuts (auto) 13.3
[2020-01-06 17:44] LABS: Glucose Point of Care 209 (65-105)
[2020-01-06] MEDS: INSULIN ASPART (*BKC) 100 UNITS/ML SUB-Q (17:46)
[2020-01-06] MEDS: INSULIN GLARGINE (*BKC) 100 UNITS/ML 10 UNITS SUB-Q (20:32)
[2020-01-06 20:45] LABS: Glucose Point of Care 240 (65-105)
[2020-01-07] VITALS (21 sets, daily range): BP systolic 140–168; BP diastolic 56–91; PULSE 46–90; RESP 16–20; TEMP 36.2–37; O2SAT 94–99
[2020-01-07] MEDS: OXACILLIN SODIUM 2 GM in SODIUM CHLORIDE 0.9% IV 100 ML IVPB ×6 (01:46→21:35)
[2020-01-07] MEDS: IPRATROPIUM BR 0.02% INH SOLN 0.5 MG/2.5 ML VIAL INHALATION ×3 (02:42→19:35)
[2020-01-07] MEDS: CHLORDIAZEPOXIDE 10 MG CAPSULE PO (05:43)
[2020-01-07] MEDS: LACTATED RINGERS 1,000 ML 30 ML IV CONT ×2 (10:00→15:22)
[2020-01-07 10:11] LABS: Glucose Point of Care 76 (65-105)
--- NOTE | 2020-01-07 13:10 | WPDANESEFPP ---
Anes - Eval Final PreProcedure Day of Procedure 01/07/20 13:10 Patient weight: normal Heart: irregular rhythm Lungs: decreased breath sounds Airway: Mallampati scale class II Neurological: other (alert) Last oral intake: >/= 8 hours ASA classification: IV Emergent: no Anesthetic plan: proceed Anesthesia type and monitoring: general LMA and standard monitoring Informed Consent: The patient's anesthetic plan and its attendant risks and benefits were discussed with the patient/family/POA. Questions were solicited and answers provided to the satisfaction of the patient/family/POA.
[2020-01-07 13:26] LABS: Glucose Point of Care 66 (65-105)
--- NOTE | 2020-01-07 13:47 | PM.OP ---
Procedure Note - Brief Procedure Note - Brief Date of procedure: 01/07/20 Pre-op diagnosis: Infection L toes Dry gangrene of 5 toes of left foot with osteomyelitis of the 5th proximal phalanx. Post-op diagnosis: same Procedure performed: Trans metatarsal amputation of all toes of the left foot. Anesthesia: GLMA Surgeon: Ravin Heaton MD Drains: No Packing: No Pathology: yes Condition: stable Disposition: PACU
--- NOTE | 2020-01-07 14:52 | SUR.OPER ---
1449: ACCCHERI READING DONE IN SURGERY:78
--- NOTE | 2020-01-07 16:04 | PCRCNOTE ---
Window of time for administration has passed. See next scheduled administration.
[2020-01-07 18:28] LABS: Glucose Point of Care 80 (65-105)
--- NOTE | 2020-01-07 18:32 | PM.IMPN ---
Progress Note: A&P Assessment and Plan (1) Pneumonia: Qualifiers: Pneumonia type: due to unspecified organism Laterality: unspecified laterality Lung location: unspecified part of lung Qualified Code(s): J18.9 - Pneumonia, unspecified organism Code(s): J18.9 - Pneumonia, unspecified organism Status: Acute Assessment and Plan: Continue antibiotics as below, continues to improve D #9 of antibiotics and D# 7 oxacillin for MSSA(negative culture 01/03) (2) Bacteremia due to methicillin susceptible Staphylococcus aureus (MSSA): Code(s): R78.81 - Bacteremia; B95.61 - Methicillin susceptible Staphylococcus aureus infection as the cause of diseases classified elsewhere Status: Acute Assessment and Plan: Source clinically left 5th toe osteomyelitis, likely chronic, transthoracic echo normal EF and no vegetations seen Repeat blood cultures 12/31 POSITIVE MSSA 1/2 and 01/03 negative Day 9 antibiotics, day 7 oxacillin, will check with ID on need for continued IV antibiotics (3) Severe sepsis: Code(s): A41.9 - Sepsis, unspecified organism; R65.20 - Severe sepsis without septic shock Status: Acute Assessment and Plan: Continue oxacillin Infection sources: diabetic foot infection and pneumonia. MSSA and Gp B strep in blood 12/31 repeated blood cultures also POSITIVE /2 Cultures from 01/03 so far negative (4) Diabetic foot infection: Onset Date: Unknown Code(s): E11.628 - Type 2 diabetes mellitus with other skin complications; L08.9 - Local infection of the skin and subcutaneous tissue, unspecified Status: Acute Assessment and Plan: To f/u with plastics (Dr. Heaton) as outpatient Continue antibiotics. left transmetarsal amputation today 01/06 01/03 MRI with osteomyelitis left 5th toe (5) Acute exacerbation of chronic obstructive pulmonary disease: Code(s): J44.1 - Chronic obstructive pulmonary disease with (acute) exacerbation Status: Acute Assessment and Plan: Nebs, steroids(tapering), antibiotics, oxygen as needed (6) Alcoholism: Code(s): F10.20 - Alcohol dependence, uncomplicated Status: Chronic Assessment and Plan: ciwa Librium thiamin and folic acid and thiamine (7) CHF (congestive heart failure): Qualifiers: Heart failure type: systolic Heart failure chronicity: chronic Qualified Code(s): I50.22 - Chronic systolic (congestive) heart failure Code(s): I50.9 - Heart failure, unspecified Status: Chronic Assessment and Plan: Clinically euvolemic. 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 Try Eucerin cream. May consider steroids. He takes p.o. steroids at home. However this could be delaying his healing. 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 A1c only 5.5 12/30 Added basal Lantus 21 U 01/05 FBS 88 and with infection under better control and de
[2020-01-07] MEDS: LOSARTAN POTASSIUM 100 MG TABLET PO (19:06)
[2020-01-07] MEDS: SERTRALINE HCL 50 MG TABLET PO (19:06)
[2020-01-07] MEDS: PANTOPRAZOLE 40 MG TABLET PO ×2 (19:06→21:46)
[2020-01-07] MEDS: SIMVASTATIN 10 MG TABLET PO (19:07)
[2020-01-07] MEDS: FOLIC ACID 1 MG TABLET PO (19:07)
[2020-01-07] MEDS: THIAMINE HCL 100 MG TABLET PO (19:08)
[2020-01-07] MEDS: GABAPENTIN 100 MG CAPSULE PO ×2 (19:09→19:12)
[2020-01-07] MEDS: predniSONE 20 MG TABLET PO (19:10)
[2020-01-07] MEDS: METOPROLOL TARTRATE 50 MG TAB PO ×2 (19:11→21:36)
[2020-01-07 20:28] LABS: Glucose Point of Care 98 (65-105)
[2020-01-07] MEDS: INSULIN GLARGINE (*BKC) 100 UNITS/ML 10 UNITS SUB-Q (21:50)
[2020-01-08] VITALS (14 sets, daily range): BP systolic 132–171; BP diastolic 63–85; PULSE 50–92; RESP 16–20; TEMP 36.4–36.9; O2SAT 93–100
[2020-01-08] MEDS: CHLORDIAZEPOXIDE 10 MG CAPSULE PO ×5 (00:08→23:58)
[2020-01-08] MEDS: OXACILLIN SODIUM 2 GM in SODIUM CHLORIDE 0.9% IV 100 ML IVPB ×6 (00:11→22:32)
[2020-01-08] MEDS: IPRATROPIUM BR 0.02% INH SOLN 0.5 MG/2.5 ML VIAL INHALATION ×4 (01:50→19:36)
[2020-01-08 05:31] LABS: Basophils Absolute Auto 0.1 K/mm3 (0.0-0.1); Basophils Percent Auto 0.4 % (0.2-1.2); Eosinophils Percent Auto 0.1 % (0-4.4); Hematocrit 32.8 % (42.0-52.0); Hemoglobin 10.6 g/dL (14.0-18.0); Immature Granulocyte Absolute 1.04 K/mm3 (0.00-0.031); Immature Granulocyte Percent A 4.7 % (0-0.5); Lymphocytes Absolute Auto 1.03 K/mm3 (0.9-3.2); Lymphocytes Percent Auto 4.7 % (18.3-44.2); Mean Corpuscular HGB Conc 32.3 g/dl (32-36); Mean Corpuscular Hemoglobin 29.9 pg (26-34); Mean Corpuscular Volume 92.4 fl (80-100); Mean Platelet Volume 9.2 fl (7.4-10.4); Monocytes Absolute Auto 0.7 K/mm3 (0.1-0.6); Monocytes Percent Auto 3.3 % (2.6-8.5); Neutrophils Absolute Auto 19.1 K/mm3 (1.3-6.7); Neutrophils Percent Auto 86.8 % (45.5-73.1); Platelet Count Result 248 k/mm3 (150-375); Red Blood Count 3.55 M/mm3 (4.6-6.20); Red Cell Distribution Width 12.7 % (11.5-14.5)
[2020-01-08 05:50] LABS: Blood Urea Nitrogen 15 mg/dL (9-20); Calcium 7.7 mg/dL (8.4-10.2); Carbon Dioxide 28 mmol/L (22-30); Chloride 101 mmol/L (98-107); Estimated CRCL calculation 79 ml/min; Estimated Glomerular Filt Rate > 60; Glucose 119 mg/dL (75-110); Magnesium 1.5 mg/dL (1.6-2.3); Sodium 132 mmol/L (137-145)
[2020-01-08 06:56] LABS: Glucose Point of Care 93 (65-105)
[2020-01-08 07:33] LABS: Glucose Point of Care 78 (65-105)
[2020-01-08 07:33] LABS: Glucose Point of Care 66 (65-105)
--- NOTE | 2020-01-08 08:02 | WPDANESPN ---
Anes - Prog Note Post-Op Date/Time: 01/08/20 08:02 Cardiovascular status: normal Respiratory status: normal Airway patency: baseline Mental status: baseline Post-Op hydration status: normal Vital Signs: Last Vital Signs Temp 36.9 C 01/08/20 06:00 Pulse 70 01/08/20 06:00 Resp 16 01/08/20 06:00 BP 132/72 01/08/20 06:00 Pulse Ox 94 01/08/20 06:00 I/O: Intake & Output 01/07/20 01/08/20 01/08/20 23:59 07:59 15:59 Intake Total 600 460 Output Total 250 700 Balance 350 -240 Laboratory Tests 01/08/20 05:22 01/08/20 05:22 01/07/20 01/07/20 01/07/20 10:09 13:25 14:50 WBC RBC Hgb Hct MCV MCH MCHC RDW Plt Count MPV Immature Gran % (Auto) Neut % (Auto) Lymph % (Auto) [place] % (Auto) Eos % (Auto) Baso % (Auto) Lymph # (Auto) [place] # (Auto) Eos # (Auto) Baso # (Auto) Abs Immat Gran (auto) Absolute Neuts (auto) Absolute Nucleated RBC Nucleated RBC % Sodium Potassium Chloride Carbon Dioxide BUN Creatinine Estim Creat Clear Calc Estimated GFR Glucose POC Capillary Glucose 76 66 78 Calcium Magnesium 01/07/20 01/07/20 01/07/20 15:38 18:25 20:25 WBC RBC Hgb Hct MCV MCH MCHC RDW Plt Count MPV Immature Gran % (Auto) Neut % (Auto) Lymph % (Auto) [place] % (Auto) Eos % (Auto) Baso % (Auto) Lymph # (Auto) [place] # (Auto) Eos # (Auto) Baso # (Auto) Abs Immat Gran (auto) Absolute Neuts (auto) Absolute Nucleated RBC Nucleated RBC % Sodium Potassium Chloride Carbon Dioxide BUN Creatinine Estim Creat Clear Calc Estimated GFR Glucose POC Capillary Glucose 66 80 98 Calcium Magnesium 01/08/20 01/08/20 01/08/20 05:22 05:22 06:54 WBC 22.0 H RBC 3.55 L Hgb 10.6 L Hct 32.8 L MCV 92.4 MCH 29.9 MCHC 32.3 RDW 12.7 Plt Count 248 MPV 9.2 Immature Gran % (Auto) 4.7 H Neut % (Auto) 86.8 H Lymph % (Auto) 4.7 L [place] % (Auto) 3.3 Eos % (Auto) 0.1 Baso % (Auto) 0.4 Lymph # (Auto) 1.03 [place] # (Auto) 0.7 H Eos # (Auto) 0.0 Baso # (Auto) 0.1 Abs Immat Gran (auto) 1.04 H Absolute Neuts (auto) 19.1 H Absolute Nucleated RBC 0.0 Nucleated RBC % 0.0 Sodium 132 L Potassium 4.0 Chloride 101 Carbon Dioxide 28 BUN 15 Creatinine 0.80 Estim Creat Clear Calc 79 Estimated GFR > 60 Glucose 119 H POC Capillary Glucose 93 Calcium 7.7 L Magnesium 1.5 L Microbiology 12/29/19 13:36 Blood Blood Culture - Final Group B Streptococcus isolated Staphylococcus aureus 12/29/19 13:41 Blood Blood Culture - Final Group B Streptococcus isolated Staphylococcus aureus 01/01/20 14:07 Blood Blood Culture - Final Staphylococcus aureus 01/01/20 09:43 Blood Blood Culture - Final Post-procedural complaints: none Patient Feedback: Patient satisfied with anesthetic care.
[2020-01-08 08:25] LABS: Glucose Point of Care 122 (65-105)
[2020-01-08] MEDS: predniSONE 20 MG TABLET PO (09:56)
[2020-01-08] MEDS: GABAPENTIN 100 MG CAPSULE PO ×3 (09:57→18:06)
[2020-01-08] MEDS: METOPROLOL TARTRATE 50 MG TAB PO ×2 (09:58→21:03)
[2020-01-08] MEDS: LOSARTAN POTASSIUM 100 MG TABLET PO (09:58)
[2020-01-08] MEDS: PANTOPRAZOLE 40 MG TABLET PO ×2 (09:59→21:03)
[2020-01-08] MEDS: FOLIC ACID 1 MG TABLET PO (09:59)
[2020-01-08] MEDS: SERTRALINE HCL 50 MG TABLET PO (10:00)
[2020-01-08] MEDS: SILVERGEL (ELTA) 45 ML 1 APPLIC TOPICAL (10:00)
[2020-01-08] MEDS: SIMVASTATIN 10 MG TABLET PO (10:00)
[2020-01-08] MEDS: THIAMINE HCL 100 MG TABLET PO (10:00)
[2020-01-08] MEDS: EUCERIN CREAM 120 GM JAR 1 APPLIC TOPICAL (10:01)
[2020-01-08] MEDS: MAGNESIUM SULF 2 GM/WATER 50ML 2 GM/50 ML BAG IVPB (10:47)
--- NOTE | 2020-01-08 12:46 | PM.IMPN ---
Progress Note: A&P Assessment and Plan (1) Pneumonia: Qualifiers: Pneumonia type: due to unspecified organism Laterality: unspecified laterality Lung location: unspecified part of lung Qualified Code(s): J18.9 - Pneumonia, unspecified organism Code(s): J18.9 - Pneumonia, unspecified organism Status: Acute Assessment and Plan: Continue antibiotics as below, continues to improve D #10 of antibiotics and D# 8 oxacillin for MSSA(negative culture 01/03) (2) Bacteremia due to methicillin susceptible Staphylococcus aureus (MSSA): Code(s): R78.81 - Bacteremia; B95.61 - Methicillin susceptible Staphylococcus aureus infection as the cause of diseases classified elsewhere Status: Acute Assessment and Plan: Source clinically left 5th toe osteomyelitis, likely chronic, transthoracic echo normal EF and no vegetations seen Repeat blood cultures 12/31 POSITIVE MSSA 1/2 and 01/03 negative Day 10 antibiotics, day 8 oxacillin, will check with ID on how loong to continue IV antibiotics (3) Severe sepsis: Code(s): A41.9 - Sepsis, unspecified organism; R65.20 - Severe sepsis without septic shock Status: Acute Assessment and Plan: Continue oxacillin Infection sources: diabetic foot infection and pneumonia. MSSA and Gp B strep in blood 12/31 repeated blood cultures also POSITIVE 1/2 Cultures from 01/03 so far negative WBC still up , probable from steroids which have been tapered and stress of surgery (4) Diabetic foot infection: Onset Date: Unknown Code(s): E11.628 - Type 2 diabetes mellitus with other skin complications; L08.9 - Local infection of the skin and subcutaneous tissue, unspecified Status: Acute Assessment and Plan: To f/u with plastics (Dr. Heaton) as outpatient Continue antibiotics. left transmetarsal amputation 01/06, POD# 1 01/03 MRI with osteomyelitis left 5th toe (5) Acute exacerbation of chronic obstructive pulmonary disease: Code(s): J44.1 - Chronic obstructive pulmonary disease with (acute) exacerbation Status: Acute Assessment and Plan: Nebs, steroids(tapering), antibiotics, oxygen as needed (6) Alcoholism: Code(s): F10.20 - Alcohol dependence, uncomplicated Status: Chronic Assessment and Plan: ciwa Librium thiamin and folic acid and thiamine (7) CHF (congestive heart failure): Qualifiers: Heart failure type: systolic Heart failure chronicity: chronic Qualified Code(s): I50.22 - Chronic systolic (congestive) heart failure Code(s): I50.9 - Heart failure, unspecified Status: Chronic Assessment and Plan: Clinically euvolemic. 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 Try Eucerin cream. May consider steroids. He takes p.o. steroids at home. However this could be delaying his healing. 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 A1c only
--- NOTE | 2020-01-08 14:59 | WPDINFPN2 ---
Progress Note: A&P Assessment and Plan (1) Bacteremia due to methicillin susceptible Staphylococcus aureus (MSSA): Code(s): R78.81 - Bacteremia; B95.61 - Methicillin susceptible Staphylococcus aureus infection as the cause of diseases classified elsewhere Status: Acute Assessment and Plan: 1. JUVENCIO and GBS bacteremia with infection, L distal foot/toes source. POD #1 TMA. 2. DM with PN 3. Prior TMA on right REC Oxacillin through 01/19, get appropriate IV for the same. Ok discharge planning. 2 weeks of cephalexin after IV finished. Subjective Date/time seen: 01/08/20 14:59 Objective Data Vital Signs Vital Signs: Vital Signs - 24 hr 01/07/20 15:21 01/07/20 15:35 01/07/20 15:50 Temperature 36.2 C L Pulse Rate 88 88 73 Respiratory Rate 16 17 17 Blood Pressure 149/82 H 159/85 H 168/88 H Pulse Oximetry 98 98 96 01/07/20 16:05 01/07/20 16:20 01/07/20 16:35 Temperature Pulse Rate 85 80 78 Respiratory Rate 18 18 18 Blood Pressure 168/89 H 166/83 H 156/88 H Pulse Oximetry 95 95 94 01/07/20 16:50 01/07/20 17:05 01/07/20 17:30 Temperature Pulse Rate 83 74 74 Respiratory Rate 20 20 18 Blood Pressure 160/77 H 146/82 H 157/86 H Pulse Oximetry 95 94 94 01/07/20 18:42 01/07/20 19:35 01/07/20 19:45 Temperature Pulse Rate 79 62 64 Respiratory Rate 18 18 18 Blood Pressure 149/87 H Pulse Oximetry 96 96 01/07/20 21:36 01/07/20 22:00 01/08/20 01:50 Temperature 36.6 C Pulse Rate 90 90 65 Respiratory Rate 18 18 Blood Pressure 155/63 H Pulse Oximetry 99 01/08/20 02:00 01/08/20 06:00 01/08/20 08:08 Temperature 36.6 C 36.9 C Pulse Rate 50 L 70 80 Respiratory Rate 16 16 20 Blood Pressure 150/63 H 132/72 Pulse Oximetry 93 94 96 01/08/20 08:21 01/08/20 09:39 01/08/20 09:58 Temperature Pulse Rate 88 76 76 Respiratory Rate 20 18 Blood Pressure 171/68 H Pulse Oximetry 100 Intake/Output Intake/Output: Intake & Output 01/05/20 01/06/20 01/07/20 01/08/20 23:59 23:59 23:59 23:59 Intake Total 2150 2625 1460 840 Output Total 1999 1725 1300 700 Balance 150 900 160 140 Meds/Results Medications: Active Medications Generic Name Dose Route Start Last Admin Trade Name Freq PRN Reason Stop Dose Admin Acetaminophen 650 mg 12/30/19 23:59 01/05/20 20:30 Tylenol Tablet PO 650 mg Q4H PRN Administration Mild Pain (1-3) or Fever Chlordiazepoxide HCl 10 mg 12/30/19 00:00 01/08/20 14:36 Librium Po PO 10 mg Q6HR KLAPESH Administration Chlorhexidine Gluconate 1 applic 12/29/19 18:15 01/08/20 09:00 Hibiclens TOPICAL Not Given DAILY [facility] Dextrose 12.5 gm 12/29/19 22:28 Dextrose 50% Syringe IV PUSH PRN PRN Hypoglycemia Protocol Folic Acid 1 mg 12/30/19 09:00 01/08/20 09:59 Folic Acid PO 1 mg DAILY KALPESH Administration Gabapentin 100 mg 12/29/19 21:00 01/08/20 14:36 Neurontin PO 100 mg TID KALPESH Administration Glucagon 1 mg 12/29/19 22:28 Glucagon For Inj IM PRN PRN Hypoglycemia Protocol Glucose 15 gm 12/29/19 22:28 Glutose 15 PO PRN PRN Hypoglycemia Protocol Dextrose 1,000 mls @ 100 mls/hr 12/29/19 22:28 Dextrose 5% 1,000 Ml IVPB PRN PRN Hypoglycemia Protocol Oxacillin Sodium 2 gm/ Sodium 100 mls @ 200 mls/hr 01/01/20 09:00 01/08/20 14:36 Chloride IVPB 200 mls/hr Q4HR KALPESH Administration Insulin Aspart 2 - 5 units 12/30/19 08:00 01/08/20 07:23 Novolog SUB-Q Not Given TIDWM [facility] Protocol Insulin Glargine 7 units 01/08/20 12:57 Lantus SUB-Q [facility] Ipratropium [place] 0.5 mg 12/30/19 02:00 01/08/20 08:08 Atrovent Neb INHALATION 0.5 mg Q6HRT KALPESH Administration Levalbuterol HCl 1.25 mg 12/30/19 02:00 01/08/20 08:08 Xopenex 1.25 Mg/0.5 Ml INHALATION 1.25 mg Q6HRT KALPESH Administration Losartan Potassium 100 mg 01/05/20 16:20 01/08/20 09:58 Cozaar PO 100 mg
--- NOTE | 2020-01-08 16:41 | WPDPN ---
Progress Note: A&P Additional Plan Elevated WBC seems likely due to trauma of surgery. Serum glucose is in 120 range. Bounding pedal pulses unchanged. Dr Longo has made recommendations for antibiotic treatment. Don't recommend ambulation except to weight bear on heel near bedside. I will redress with Danilo wrap to try to control oozing. Exam Narrative: Exam Narrative: Left foot wound redressed. Had slow ooze all night and during this day. Skin color normal Sutures intact. Objective Data Vital Signs Vital Signs: Vital Signs - 24 hr 01/07/20 16:50 01/07/20 17:05 01/07/20 17:30 Temperature Pulse Rate 83 74 74 Respiratory Rate 20 20 18 Blood Pressure 160/77 H 146/82 H 157/86 H Pulse Oximetry 95 94 94 01/07/20 18:42 01/07/20 19:35 01/07/20 19:45 Temperature Pulse Rate 79 62 64 Respiratory Rate 18 18 18 Blood Pressure 149/87 H Pulse Oximetry 96 96 01/07/20 21:36 01/07/20 22:00 01/08/20 01:50 Temperature 36.6 C Pulse Rate 90 90 65 Respiratory Rate 18 18 Blood Pressure 155/63 H Pulse Oximetry 99 01/08/20 02:00 01/08/20 06:00 01/08/20 08:08 Temperature 36.6 C 36.9 C Pulse Rate 50 L 70 80 Respiratory Rate 16 16 20 Blood Pressure 150/63 H 132/72 Pulse Oximetry 93 94 96 01/08/20 08:21 01/08/20 09:39 01/08/20 09:58 Temperature Pulse Rate 88 76 76 Respiratory Rate 20 18 Blood Pressure 171/68 H Pulse Oximetry 100 01/08/20 14:22 01/08/20 15:09 01/08/20 15:20 Temperature 36.7 C Pulse Rate 92 64 85 Respiratory Rate 18 20 20 Blood Pressure 147/78 H Pulse Oximetry 98 Intake/Output Intake/Output: Intake & Output 01/05/20 01/06/20 01/07/20 01/08/20 23:59 23:59 23:59 23:59 Intake Total 2150 2625 1460 1180 Output Total 1999 1725 1300 700 Balance 150 900 160 480 Meds/Results Medications: Active Medications Generic Name Dose Route Start Last Admin Trade Name Freq PRN Reason Stop Dose Admin Acetaminophen 650 mg 12/30/19 23:59 01/05/20 20:30 Tylenol Tablet PO 650 mg Q4H PRN Administration Mild Pain (1-3) or Fever Chlordiazepoxide HCl 10 mg 12/30/19 00:00 01/08/20 14:36 Librium Po PO 10 mg Q6HR [facility] Administration Chlorhexidine Gluconate 1 applic 12/29/19 18:15 01/08/20 09:00 Hibiclens TOPICAL Not Given DAILY [facility] Dextrose 12.5 gm 12/29/19 22:28 Dextrose 50% Syringe IV PUSH PRN PRN Hypoglycemia Protocol Folic Acid 1 mg 12/30/19 09:00 01/08/20 09:59 Folic Acid PO 1 mg DAILY [facility] Administration Gabapentin 100 mg 12/29/19 21:00 01/08/20 14:36 Neurontin PO 100 mg TID [facility] Administration Glucagon 1 mg 12/29/19 22:28 Glucagon For Inj IM PRN PRN Hypoglycemia Protocol Glucose 15 gm 12/29/19 22:28 Glutose 15 PO PRN PRN Hypoglycemia Protocol Dextrose 1,000 mls @ 100 mls/hr 12/29/19 22:28 Dextrose 5% 1,000 Ml IVPB PRN PRN Hypoglycemia Protocol Oxacillin Sodium 2 gm/ Sodium 100 mls @ 200 mls/hr 01/01/20 09:00 01/08/20 15:06 Chloride IVPB Infused Q4HR [facility] Infusion Insulin Aspart 2 - 5 units 12/30/19 08:00 01/08/20 07:23 Novolog SUB-Q Not Given TIDWM [facility] Protocol Insulin Glargine 7 units 01/08/20 12:57 Lantus SUB-Q HS [facility] Ipratropium [place] 0.5 mg 12/30/19 02:00 01/08/20 15:07 Atrovent Neb INHALATION 0.5 mg Q6HRT [facility] Administration Levalbuterol HCl 1.25 mg 12/30/19 02:00 01/08/20 15:07 Xopenex 1.25 Mg/0.5 Ml INHALATION 1.25 mg Q6HRT [facility] Administration Losartan Potassium 100 mg 01/05/20 16:20 01/08/20 09:58 Cozaar PO 100 mg DAILY [facility] Administration Metoprolol Tartrate 50 mg 01/02/20 21:00 01/08/20 09:58 Lopressor PO 50 mg Q12HR [facility] Administration Multi-Ingred Cream/Lotion/Oil/Oint 1 applic 12/30/19 09:00 01/08/20 10:01 Minerin Creme TOPICAL 1 applic QAM [facility] Administration Ondansetron HCl 4 mg 12/29/19 14:
[2020-01-08 17:57] LABS: Glucose Point of Care 226 (65-105)
[2020-01-08 18:05] LABS: Glucose Point of Care 173 (65-105)
[2020-01-08] MEDS: INSULIN ASPART (*BKC) 100 UNITS/ML SUB-Q (18:06)
--- NOTE | 2020-01-08 19:20 | CONS_ITS ---
DATE OF CONSULTATION: 01/08/2020 REASON FOR CONSULTATION: Staph aureus bacteremia. HISTORY OF PRESENT ILLNESS: The patient is a 74-year-old male known to me from the past. He has had previous TMA on the right side for a diabetic foot infection. He accidentally struck his toe against an object approximately 3 days before admission and the toes then turned dark in color. He presented to the emergency room with decreased level of consciousness the same day. He was found to have dry gangrene and was admitted. He has been given IV antibiotics while here currently in the form of oxacillin day #8. He was taken to the operating room yesterday by Dr. Heaton and the patient underwent left foot TMA. Findings included suspected osteomyelitis of the 5th proximal phalanx. He has had positive blood cultures as noted below and consultation was requested regarding length of therapy. The patient does have intermittent pain over the dorsum of both feet, which he ascribes to his peripheral neuropathy. No fever, chills, sweats, or other known trauma. He has had no operative interventions otherwise in the last 3 months and no events here in the hospital. ALLERGIES: TO NIACIN. PRESENT MEDICATIONS: Extensive list reviewed. No systemic immunosuppressants. HABITS: Ongoing alcohol and tobacco 1 pack per day. PAST MEDICAL HISTORY: In addition to the above, diabetes mellitus with peripheral neuropathy, COPD, previous heart failure, previous stroke, depression, GERD, hyperlipidemia, hypertension, IBS, previous osteomyelitis, right distal foot; sacrococcygeal fracture, cataract extractions, colonoscopy, hernia repair, right total hip arthroplasty, and tonsillectomy. REVIEW OF SYSTEMS: Somewhat limited by the patient's memory. Otherwise, 14-point review is negative. FAMILY HISTORY: Not pertinent to his present illness. SOCIAL HISTORY: He is retired. He lives alone. He has a caregiver with him several hours per day Saturday through Saturday. 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 No family at the bedside currently. 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 PHYSICAL EXAMINATION: GENERAL: This is an elderly male who appears his actual age. No acute distress. VITAL SIGNS: Afebrile since arrival, 171/68, 18, 76. SKIN: Warm and dry. No erythroderma. EENT: The conjunctivae appear normal. No icterus. Oral mucosa is dry, otherwise appears normal. There is no thrush. No paranasal sinus erythema, edema or tenderness. NECK: Without meningismus, mass or thyromegaly. LUNGS: Clear to auscultation. CHEST: Equal expansion. Normal AP diameter. No indwelling vascular devices. CARDIAC: Soft S1, S2. Regular rate and rhythm. No murmurs or gallops. Radial pulses are 1+ and equal. Unable to palpate dorsalis pedis. ABDOMEN: Nondistended, soft. No organomegaly. No masses. EXTREMITIES: He has a crusted transverse ulcer over the medial aspect of the right TMA incision without purulence or surrounding erythema or tenderness. I did not remove his intraoperative dressing on the left. He has no proximal erythema, warmth, or tenderness. RADIOLOGY: Left foot plain films on admission, polyarticular osteoarthritis. MRI performed on January 03, bone marrow edema of the 5th proximal phalanx, old fracture deformities, osteoarthritis, fatty atrophy and subcutaneous edema. Echocardiogram, no evidence of infection. Chest x-ray, airspace disease left mid to lower lung field, single-view only. LABORATORY DATA: From admission, blood cultures 2/2 sets susceptible Staph aureus and group B strep. MRSA screen was negative. Blood cultures repeated December 31, 1 out of 2 sets, same Staph aureus. Sputum culture, no pathogens and repeat blood cultures January 03, no growth 4 days. Surgical path is pending. White blo
[2020-01-08] MEDS: INSULIN GLARGINE (*BKC) 100 UNITS/ML 7 UNITS SUB-Q (21:04)
[2020-01-08 21:50] LABS: Glucose Point of Care 194 (65-105)
[2020-01-08] MEDS: ACETAMINOPHEN 325 MG TABLET 650 MG PO (23:58)
[2020-01-09] VITALS (13 sets, daily range): BP systolic 119–163; BP diastolic 50–80; PULSE 54–82; RESP 18–20; TEMP 36.4–37; O2SAT 68–98
[2020-01-09] MEDS: OXACILLIN SODIUM 2 GM in SODIUM CHLORIDE 0.9% IV 100 ML IVPB ×6 (02:05→21:06)
[2020-01-09] MEDS: IPRATROPIUM BR 0.02% INH SOLN 0.5 MG/2.5 ML VIAL INHALATION ×4 (02:45→20:45)
[2020-01-09] MEDS: CHLORDIAZEPOXIDE 10 MG CAPSULE PO ×3 (05:50→17:05)
[2020-01-09 06:19] LABS: Basophils Percent Auto 0.3 % (0.2-1.2); Eosinophils Absolute Auto 0.1 K/mm3 (0-0.3); Eosinophils Percent Auto 0.4 % (0-4.4); Hematocrit 32.8 % (42.0-52.0); Hemoglobin 10.2 g/dL (14.0-18.0); Immature Granulocyte Absolute 0.47 K/mm3 (0.00-0.031); Immature Granulocyte Percent A 3.1 % (0-0.5); Lymphocytes Absolute Auto 1.55 K/mm3 (0.9-3.2); Lymphocytes Percent Auto 10.2 % (18.3-44.2); Mean Corpuscular HGB Conc 31.1 g/dl (32-36); Mean Corpuscular Volume 93.2 fl (80-100); Mean Platelet Volume 9.3 fl (7.4-10.4); Monocytes Absolute Auto 0.7 K/mm3 (0.1-0.6); Monocytes Percent Auto 4.7 % (2.6-8.5); Neutrophils Absolute Auto 12.3 K/mm3 (1.3-6.7); Neutrophils Percent Auto 81.3 % (45.5-73.1); Platelet Count Result 231 k/mm3 (150-375); Red Blood Count 3.52 M/mm3 (4.6-6.20); Red Cell Distribution Width 12.7 % (11.5-14.5); White Blood Count 15.1 K/mm3 (4.5-10.0)
[2020-01-09 06:41] LABS: Blood Urea Nitrogen 17 mg/dL (9-20); Calcium 7.9 mg/dL (8.4-10.2); Carbon Dioxide 29 mmol/L (22-30); Chloride 102 mmol/L (98-107); Estimated CRCL calculation 58 ml/min; Estimated Glomerular Filt Rate > 60; Glucose 156 mg/dL (75-110); Magnesium 1.8 mg/dL (1.6-2.3); Potassium 4.2 mmol/L (3.4-5.0); Sodium 133 mmol/L (137-145)
[2020-01-09 08:51] LABS: Glucose Point of Care 109 (65-105)
[2020-01-09] MEDS: predniSONE 10 MG TABLET PO (10:15)
[2020-01-09] MEDS: FOLIC ACID 1 MG TABLET PO (10:17)
[2020-01-09] MEDS: LOSARTAN POTASSIUM 100 MG TABLET PO (10:17)
[2020-01-09] MEDS: GABAPENTIN 100 MG CAPSULE PO ×3 (10:17→17:06)
[2020-01-09] MEDS: METOPROLOL TARTRATE 50 MG TAB PO ×2 (10:17→21:09)
[2020-01-09] MEDS: PANTOPRAZOLE 40 MG TABLET PO ×2 (10:18→21:09)
[2020-01-09] MEDS: SERTRALINE HCL 50 MG TABLET PO (10:18)
[2020-01-09] MEDS: SIMVASTATIN 10 MG TABLET PO (10:19)
[2020-01-09] MEDS: THIAMINE HCL 100 MG TABLET PO (10:19)
[2020-01-09] MEDS: EUCERIN CREAM 120 GM JAR 1 APPLIC TOPICAL (10:20)
[2020-01-09] MEDS: SILVERGEL (ELTA) 45 ML 1 APPLIC TOPICAL (10:22)
--- NOTE | 2020-01-09 10:32 | PCPTNOTE ---
Ludin underwent transmetarsal ambutation 01/07/2020. PT and OT will need new orders with weight bearing status listed for continuation of care/treatment. Did speak with RN in regards to this.
--- NOTE | 2020-01-09 10:46 | PM.PROC ---
Procedure Note - Detailed Date of procedure: 01/07/20 Pre-op diagnosis: Infection L toes .he left forefoot and 5 toes and osteomyelitis of the proximal phalanx of the 5th toe Post-op diagnosis: same Procedure performed: Transmetatarsal amputation of the 5 toes of the left foot. Description of procedure: The appropriate foot was marked on the patient in the holding area. The patient was taken to the operating room and placed on the operating table in the supine position. A time-out was held and confirmed. He was given general endotracheal anesthesia the left lower extremity from the knee to the toes was prepped and draped in the usual fashion. Appropriate antibiotics were given to keep the patient on his previous schedule. An 8 marked was placed across the dorsum of the foot at the base of the toes this was continued around the plantar aspect outlining the dry gangrene of the skin on the forefoot . The tourniquet was inflated to 350 mmHg. The incision was made across the top of the foot at the base of the toes. All extensor tendons were divided and the metatarsal heads were identified and a position chosen just proximal to those for the amputation at each toe. The sagittal saw was utilized to divide each of the distal metatarsals. Following that the plantar incision was made and the flexor tendons divided. The specimen was passed off the table. The adequacy of skin cover was determined and the metatarsal and were either further transected proximally or rounded smoothed with a rongeur. Some additional soft tissue was removed to permit closure of the skin envelope. The tourniquet was released and numerous vascular structures were cauterized. Perfusion at this level appeared to be very adequate. the wound was closed with simple 0 Prolene sutures. The foot was wrapped with a Xeroform gauze and Kerlix dressing no Danilo wrap was applied. The patient is discharged from the operating room stable condition. The total tourniquet time was less than 1 hour Surgeon: Ravin Heaton MD Estimated blood loss (mL): 100 Drains: No Packing: No Pathology: yes Complications: No immediate complications Condition: stable Disposition: PACU
--- NOTE | 2020-01-09 11:33 | PM.IMPN ---
Progress Note: A&P Assessment and Plan (1) Pneumonia: Qualifiers: Laterality: unspecified laterality Lung location: unspecified part of lung Pneumonia type: due to unspecified organism Qualified Code(s): J18.9 - Pneumonia, unspecified organism Code(s): J18.9 - Pneumonia, unspecified organism Status: Acute Assessment and Plan: Continue antibiotics as below, continues to improve D# 9 oxacillin for MSSA(negative culture 3 so day 03/21 of IV oxacillin) (2) Bacteremia due to methicillin susceptible Staphylococcus aureus (MSSA): Code(s): R78.81 - Bacteremia; B95.61 - Methicillin susceptible Staphylococcus aureus infection as the cause of diseases classified elsewhere Status: Acute Assessment and Plan: Source clinically left 5th toe osteomyelitis, likely chronic, transthoracic echo normal EF and no vegetations seen Repeat blood cultures 12/31 POSITIVE MSSA 1/2 and 01/03 negative Day 11 antibiotics, day 9 oxacillin, and ID recomends IV oxacillin through 01/19 followed by 2 weeks of po (3) Severe sepsis: Code(s): A41.9 - Sepsis, unspecified organism; R65.20 - Severe sepsis without septic shock Status: Acute Assessment and Plan: Continue oxacillin Infection sources: diabetic foot infection and pneumonia. 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 Heaton) as outpatient Continue antibiotics. left transmetarsal amputation 01/06, POD# 2 01/03 MRI with osteomyelitis left 5th toe (5) Acute exacerbation of chronic obstructive pulmonary disease: Code(s): J44.1 - Chronic obstructive pulmonary disease with (acute) exacerbation Status: Acute Assessment and Plan: Nebs, steroids(tapering), antibiotics, oxygen as needed (6) Alcoholism: Code(s): F10.20 - Alcohol dependence, uncomplicated Status: Chronic Assessment and Plan: ciwa Librium thiamin and folic acid and thiamine (7) CHF (congestive heart failure): Qualifiers: Heart failure chronicity: chronic Heart failure type: systolic Qualified Code(s): I50.22 - Chronic systolic (congestive) heart failure Code(s): I50.9 - Heart failure, unspecified Status: Chronic Assessment and Plan: Clinically euvolemic. 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 Try Eucerin cream. May consider steroids. He takes p.o. steroids at home. However this could be delaying his healing. (10) Diabetes mellitus: Qualifiers: Diabetes mellitus complication status: with hyperglycemia Diabetes mellitus longterm insulin use: unspecified longterm insulin use status Diabetes mellitus type: type 2 Qualified Code(s): E11.65 - Type 2 diabetes mellitus with hyperglycemia Code(s): E11.9 - Type 2 diabetes mellitus without complications Status: Acute Assessment and Plan
[2020-01-09 12:48] LABS: Glucose Point of Care 139 (65-105)
--- NOTE | 2020-01-09 13:27 | WPDPN ---
Exam Narrative: Exam Narrative: Left foot redressed. Sutures intact, but wound margins slightly. No more significant bleeding. Dorsal flap is red, but not hot. WBC 15. Doing well. Will need dressings after discharge and help with ambulation. Objective Data Vital Signs Vital Signs: Vital Signs - 24 hr 01/08/20 14:22 01/08/20 15:09 01/08/20 15:20 Temperature 36.7 C Pulse Rate 92 64 85 Respiratory Rate 18 20 20 Blood Pressure 147/78 H Pulse Oximetry 98 01/08/20 19:36 01/08/20 19:45 01/08/20 21:03 Temperature Pulse Rate 64 65 74 Respiratory Rate 18 18 Blood Pressure Pulse Oximetry 96 01/08/20 22:00 01/09/20 02:45 01/09/20 02:55 Temperature 36.4 C Pulse Rate 74 58 L 63 Respiratory Rate 18 20 20 Blood Pressure 162/85 H Pulse Oximetry 99 01/09/20 06:00 01/09/20 08:38 01/09/20 08:47 Temperature 36.4 C Pulse Rate 54 L 68 65 Respiratory Rate 18 18 18 Blood Pressure 163/80 H Pulse Oximetry 98 96 01/09/20 10:16 01/09/20 10:17 Temperature Pulse Rate 79 72 Respiratory Rate 18 Blood Pressure 120/50 L Pulse Oximetry 68 L Intake/Output Intake/Output: Intake & Output 01/06/20 01/07/20 01/08/20 01/09/20 23:59 23:59 23:59 23:59 Intake Total 2625 1460 2170 600 Output Total 1725 1300 1600 1100 Balance 900 160 570 -500 Meds/Results Medications: Active Medications Generic Name Dose Route Start Last Admin Trade Name Freq PRN Reason Stop Dose Admin Acetaminophen 650 mg 12/30/19 23:59 01/08/20 23:58 Tylenol Tablet PO 650 mg Q4H PRN Administration Mild Pain (1-3) or Fever Chlordiazepoxide HCl 10 mg 12/30/19 00:00 01/09/20 12:23 Librium Po PO 10 mg Q6HR [facility] Administration Dextrose 12.5 gm 12/29/19 22:28 Dextrose 50% Syringe IV PUSH PRN PRN Hypoglycemia Protocol Folic Acid 1 mg 12/30/19 09:00 01/09/20 10:17 Folic Acid PO 1 mg DAILY [facility] Administration Gabapentin 100 mg 03/03/20 21:00 01/09/20 12:24 Neurontin PO 100 mg TID [facility] Administration Glucagon 1 mg 12/29/19 22:28 Glucagon For Inj IM PRN PRN Hypoglycemia Protocol Glucose 15 gm 12/29/19 22:28 Glutose 15 PO PRN PRN Hypoglycemia Protocol Dextrose 1,000 mls @ 100 mls/hr 12/29/19 22:28 Dextrose 5% 1,000 Ml IVPB PRN PRN Hypoglycemia Protocol Oxacillin Sodium 2 gm/ Sodium 100 mls @ 200 mls/hr 01/01/20 09:00 01/09/20 12:24 Chloride IVPB 200 mls/hr Q4HR [facility] Administration Insulin Aspart 2 - 5 units 12/30/19 08:00 01/08/20 18:06 Novolog SUB-Q 2 units TIDWM [facility] Administration Protocol Insulin Glargine 7 units 01/08/20 12:57 01/08/20 21:04 Lantus SUB-Q 7 units HS [facility] Administration Ipratropium [place] 0.5 mg 12/30/19 02:00 01/09/20 08:38 Atrovent Neb INHALATION 0.5 mg Q6HRT [facility] Administration Levalbuterol HCl 1.25 mg 12/30/19 02:00 01/09/20 08:38 Xopenex 1.25 Mg/0.5 Ml INHALATION 1.25 mg Q6HRT [facility] Administration Losartan Potassium 100 mg 01/05/20 16:20 01/09/20 10:17 Cozaar PO 100 mg DAILY [facility] Administration Metoprolol Tartrate 50 mg 01/02/20 21:00 01/09/20 10:17 Lopressor PO 50 mg Q12HR [facility] Administration Multi-Ingred Cream/Lotion/Oil/Oint 1 applic 12/30/19 09:00 01/09/20 10:20 Minerin Creme TOPICAL 1 applic QAM [facility] Administration Ondansetron HCl 4 mg 12/29/19 14:34 Zofran Inj IV PUSH Q4H PRN Nausea Ondansetron HCl 4 mg 01/07/20 08:22 Zofran Inj IV PUSH ONCE PRN Nausea Ondansetron HCl 4 mg 01/07/20 13:11 Zofran Inj IV PUSH ONCE PRN Nausea Pantoprazole Sodium 40 mg 12/29/19 21:00 01/09/20 10:18 Protonix PO 40 mg Q12HR [facility] Administration Prednisone 10 mg 01/09/20 08:00 01/09/20 10:15 Prednisone PO 10 mg DAILY@0800 [facility] Administration Senna 8.6 mg 12/29/19 21:31 Senokot Tablet PO BI
[2020-01-09 17:57] LABS: Glucose Point of Care 128 (65-105)
[2020-01-09] MEDS: INSULIN GLARGINE (*BKC) 100 UNITS/ML 7 UNITS SUB-Q (21:26)
[2020-01-09 21:35] LABS: Glucose Point of Care 157 (65-105)
[2020-01-10] VITALS (13 sets, daily range): BP systolic 136–162; BP diastolic 58–92; PULSE 57–91; RESP 18–24; TEMP 36.7–36.8; O2SAT 95–100
[2020-01-10] MEDS: OXACILLIN SODIUM 2 GM in SODIUM CHLORIDE 0.9% IV 100 ML IVPB ×6 (00:39→21:12)
[2020-01-10] MEDS: CHLORDIAZEPOXIDE 10 MG CAPSULE PO ×4 (00:39→17:10)
[2020-01-10] MEDS: IPRATROPIUM BR 0.02% INH SOLN 0.5 MG/2.5 ML VIAL INHALATION ×4 (02:33→21:47)
[2020-01-10 06:33] LABS: Glucose Point of Care 80 (65-105)
[2020-01-10] MEDS: predniSONE 10 MG TABLET PO (09:26)
[2020-01-10] MEDS: GABAPENTIN 100 MG CAPSULE PO ×3 (09:27→17:10)
[2020-01-10] MEDS: FOLIC ACID 1 MG TABLET PO (09:27)
[2020-01-10] MEDS: LOSARTAN POTASSIUM 100 MG TABLET PO (09:27)
[2020-01-10] MEDS: PANTOPRAZOLE 40 MG TABLET PO ×2 (09:28→21:11)
[2020-01-10] MEDS: METOPROLOL TARTRATE 50 MG TAB PO ×2 (09:28→21:11)
[2020-01-10] MEDS: EUCERIN CREAM 120 GM JAR 1 APPLIC TOPICAL (09:28)
[2020-01-10] MEDS: SIMVASTATIN 10 MG TABLET PO (09:29)
[2020-01-10] MEDS: SERTRALINE HCL 50 MG TABLET PO (09:29)
[2020-01-10] MEDS: THIAMINE HCL 100 MG TABLET PO (09:29)
--- NOTE | 2020-01-10 09:30 | WPDPN ---
Exam Narrative: Exam Narrative: Left foot redressed. Sutures intact, but wound margins slightly. No more significant bleeding. Dorsal flap is red, but not hot. WBC 15. Complaining of right hip pain. Would benifit from in-bed ROM and stretching. Should not ambulate in the [place]. May bear weight on left heel. Tramadol 1-2 Q t6 hr. Doing well. Will need dressings after discharge and help with ambulation. Objective Data Vital Signs Vital Signs: Vital Signs - 24 hr 01/09/20 10:16 01/09/20 10:17 01/09/20 14:16 Temperature 37.0 C Pulse Rate 79 72 82 Respiratory Rate 18 18 Blood Pressure 120/50 L 136/72 Pulse Oximetry 68 L 94 01/09/20 16:02 01/09/20 20:46 01/09/20 20:55 Temperature Pulse Rate 68 81 77 Respiratory Rate 18 18 18 Blood Pressure Pulse Oximetry 01/09/20 21:09 01/09/20 21:26 01/10/20 02:36 Temperature 36.7 C Pulse Rate 80 62 80 Respiratory Rate 18 18 Blood Pressure 119/78 Pulse Oximetry 95 01/10/20 02:45 01/10/20 03:01 01/10/20 06:00 Temperature 36.8 C Pulse Rate 76 68 Respiratory Rate 18 20 Blood Pressure Pulse Oximetry 95 100 01/10/20 08:46 01/10/20 09:21 Temperature Pulse Rate 72 91 Respiratory Rate 20 18 Blood Pressure 151/58 H Pulse Oximetry 96 99 Intake/Output Intake/Output: Intake & Output 01/07/20 01/08/20 01/09/20 01/10/20 23:59 23:59 23:59 23:59 Intake Total 1460 2170 2430 840 Output Total 1300 1600 1700 1600 Balance 160 570 730 -760 Meds/Results Medications: Active Medications Generic Name Dose Route Start Last Admin Trade Name Freq PRN Reason Stop Dose Admin Acetaminophen 650 mg 12/30/19 23:59 01/08/20 23:58 Tylenol Tablet PO 650 mg Q4H PRN Administration Mild Pain (1-3) or Fever Chlordiazepoxide HCl 10 mg 12/30/19 00:00 01/10/20 05:53 Librium Po PO 10 mg Q6HR [facility] Administration Dextrose 12.5 gm 12/29/19 22:28 Dextrose 50% Syringe IV PUSH PRN PRN Hypoglycemia Protocol Folic Acid 1 mg 12/30/19 09:00 01/09/20 10:17 Folic Acid PO 1 mg DAILY [facility] Administration Gabapentin 100 mg 12/29/19 21:00 01/09/20 17:06 Neurontin PO 100 mg TID [facility] Administration Glucagon 1 mg 12/29/19 22:28 Glucagon For Inj IM PRN PRN Hypoglycemia Protocol Glucose 15 gm 12/29/19 22:28 Glutose 15 PO PRN PRN Hypoglycemia Protocol Dextrose 1,000 mls @ 100 mls/hr 12/29/19 22:28 Dextrose 5% 1,000 Ml IVPB PRN PRN Hypoglycemia Protocol Oxacillin Sodium 2 gm/ Sodium 100 mls @ 200 mls/hr 01/01/20 09:00 01/10/20 06:10 Chloride IVPB Infused Q4HR [facility] Infusion Insulin Aspart 2 - 5 units 12/30/19 08:00 01/10/20 07:14 Novolog SUB-Q Not Given TIDWM [facility] Protocol Insulin Glargine 7 units 01/08/20 12:57 01/09/20 21:26 Lantus SUB-Q 7 units HS [facility] Administration Ipratropium [place] 0.5 mg 12/30/19 02:00 01/10/20 08:42 Atrovent Neb INHALATION 0.5 mg Q6HRT [facility] Administration Levalbuterol HCl 1.25 mg 12/30/19 02:00 01/10/20 08:42 Xopenex 1.25 Mg/0.5 Ml INHALATION 1.25 mg Q6HRT [facility] Administration Losartan Potassium 100 mg 01/05/20 16:20 01/09/20 10:17 Cozaar PO 100 mg DAILY [facility] Administration Metoprolol Tartrate 50 mg 01/02/20 21:00 01/09/20 21:09 Lopressor PO 50 mg Q12HR [facility] Administration Multi-Ingred Cream/Lotion/Oil/Oint 1 applic 12/30/19 09:00 01/09/20 10:20 Minerin Creme TOPICAL 1 applic QAM [facility] Administration Ondansetron HCl 4 mg 12/29/19 14:34 Zofran Inj IV PUSH Q4H PRN Nausea Ondansetron HCl 4 mg 01/07/20 08:22 Zofran Inj IV PUSH ONCE PRN Nausea Ondansetron HCl 4 mg 01/07/20 13:11 Zofran Inj IV PUSH ONCE PRN Nausea Pantoprazole Sodium 40 mg 12/29/19 21:00 01/09/20 21:09 Protonix PO 40 mg Q12HR [facility] Administration Prednisone 10 mg 01/09/20 08:00
[2020-01-10] MEDS: SILVERGEL (ELTA) 45 ML 1 APPLIC TOPICAL (09:31)
--- NOTE | 2020-01-10 10:14 | PM.IMPN ---
Progress Note: A&P Assessment and Plan (1) Pneumonia: Qualifiers: Pneumonia type: due to unspecified organism Laterality: unspecified laterality Lung location: unspecified part of lung Qualified Code(s): J18.9 - Pneumonia, unspecified organism Code(s): J18.9 - Pneumonia, unspecified organism Status: Acute Assessment and Plan: Continue antibiotics as below, continues to improve D# 10 oxacillin for MSSA(negative culture 01/03 so day 04/10, finish 01/19, of IV oxacillin) (2) Bacteremia due to methicillin susceptible Staphylococcus aureus (MSSA): Code(s): R78.81 - Bacteremia; B95.61 - Methicillin susceptible Staphylococcus aureus infection as the cause of diseases classified elsewhere Status: Acute Assessment and Plan: Source clinically left 5th toe osteomyelitis, likely chronic, transthoracic echo normal EF and no vegetations seen Repeat blood cultures 12/31 POSITIVE MSSA 1/2 and 01/03 negative Day 12 antibiotics, day 10 oxacillin, and ID recomends IV oxacillin through 01/19 followed by 2 weeks of po (3) Severe sepsis: Code(s): A41.9 - Sepsis, unspecified organism; R65.20 - Severe sepsis without septic shock Status: Acute Assessment and Plan: Continue oxacillin Infection sources: diabetic foot infection and pneumonia. MSSA and Gp B strep in blood 12/31 repeated blood cultures also POSITIVE 1/2 Cultures from 01/03 so far negative WBC decreased to 15K , probable from steroids which have been tapered and stress of surgery, no ongoing infection, recheck am (4) Diabetic foot infection: Onset Date: Unknown Code(s): E11.628 - Type 2 diabetes mellitus with other skin complications; L08.9 - Local infection of the skin and subcutaneous tissue, unspecified Status: Acute Assessment and Plan: To f/u with plastics (Dr. Heaton) as outpatient Continue antibiotics. 01/03 MRI with osteomyelitis left 5th toe left transmetarsal amputation 01/06, POD# 3 (5) Acute exacerbation of chronic obstructive pulmonary disease: Code(s): J44.1 - Chronic obstructive pulmonary disease with (acute) exacerbation Status: Acute Assessment and Plan: Nebs, steroids(tapering), antibiotics, oxygen as needed (6) Alcoholism: Code(s): F10.20 - Alcohol dependence, uncomplicated Status: Chronic Assessment and Plan: ciwa Librium thiamin and folic acid and thiamine (7) CHF (congestive heart failure): Qualifiers: Heart failure type: systolic Heart failure chronicity: chronic Qualified Code(s): I50.22 - Chronic systolic (congestive) heart failure Code(s): I50.9 - Heart failure, unspecified Status: Chronic Assessment and Plan: Clinically euvolemic. 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 Try Eucerin cream. May consider steroids. He takes p.o. steroids at home. However this could be delaying his healing. 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
[2020-01-10 12:26] LABS: Glucose Point of Care 139 (65-105)
[2020-01-10] MEDS: TRAMADOL HCL 50 MG TABLET PO (17:16)
[2020-01-10 17:43] LABS: Glucose Point of Care 148 (65-105)
[2020-01-10] MEDS: INSULIN GLARGINE (*BKC) 100 UNITS/ML 7 UNITS SUB-Q (21:10)
[2020-01-10 21:24] LABS: Glucose Point of Care 109 (65-105)
[2020-01-11] VITALS (10 sets, daily range): BP systolic 144–162; BP diastolic 90–95; PULSE 63–90; RESP 20–24; TEMP 36.4–36.9; O2SAT 92–97
[2020-01-11] MEDS: TRAMADOL HCL 50 MG TABLET PO ×4 (00:10→16:25)
[2020-01-11] MEDS: CHLORDIAZEPOXIDE 10 MG CAPSULE PO ×3 (00:10→12:07)
[2020-01-11] MEDS: OXACILLIN SODIUM 2 GM in SODIUM CHLORIDE 0.9% IV 100 ML IVPB ×5 (01:15→16:00)
[2020-01-11] MEDS: IPRATROPIUM BR 0.02% INH SOLN 0.5 MG/2.5 ML VIAL INHALATION ×3 (02:44→15:52)
[2020-01-11 06:24] LABS: Basophils Percent Auto 0.1 % (0.2-1.2); Eosinophils Absolute Auto 0.1 K/mm3 (0-0.3); Eosinophils Percent Auto 0.7 % (0-4.4); Hematocrit 32.9 % (42.0-52.0); Immature Granulocyte Absolute 0.25 K/mm3 (0.00-0.031); Immature Granulocyte Percent A 1.7 % (0-0.5); Lymphocytes Absolute Auto 1.16 K/mm3 (0.9-3.2); Lymphocytes Percent Auto 7.9 % (18.3-44.2); Mean Corpuscular HGB Conc 30.4 g/dl (32-36); Mean Corpuscular Hemoglobin 29.2 pg (26-34); Mean Corpuscular Volume 95.9 fl (80-100); Mean Platelet Volume 9.4 fl (7.4-10.4); Monocytes Absolute Auto 0.7 K/mm3 (0.1-0.6); Neutrophils Absolute Auto 12.5 K/mm3 (1.3-6.7); Neutrophils Percent Auto 84.6 % (45.5-73.1); Platelet Count Result 224 k/mm3 (150-375); Red Blood Count 3.43 M/mm3 (4.6-6.20); Red Cell Distribution Width 12.9 % (11.5-14.5); White Blood Count 14.8 K/mm3 (4.5-10.0)
[2020-01-11 06:38] LABS: Blood Urea Nitrogen 20 mg/dL (9-20); Calcium 8.2 mg/dL (8.4-10.2); Carbon Dioxide 33 mmol/L (22-30); Chloride 103 mmol/L (98-107); Estimated CRCL calculation 54 ml/min; Estimated Glomerular Filt Rate 59; Glucose 97 mg/dL (75-110); Sodium 137 mmol/L (137-145)
[2020-01-11] MEDS: predniSONE 10 MG TABLET PO (11:52)
[2020-01-11] MEDS: GABAPENTIN 100 MG CAPSULE PO ×3 (11:53→16:18)
[2020-01-11] MEDS: FOLIC ACID 1 MG TABLET PO (11:53)
[2020-01-11] MEDS: METOPROLOL TARTRATE 50 MG TAB PO (11:54)
[2020-01-11] MEDS: PANTOPRAZOLE 40 MG TABLET PO (11:54)
[2020-01-11] MEDS: EUCERIN CREAM 120 GM JAR 1 APPLIC TOPICAL (11:54)
[2020-01-11] MEDS: SERTRALINE HCL 50 MG TABLET PO (11:55)
[2020-01-11] MEDS: THIAMINE HCL 100 MG TABLET PO (11:55)
[2020-01-11] MEDS: SIMVASTATIN 10 MG TABLET PO (11:55)
[2020-01-11] MEDS: SILVERGEL (ELTA) 45 ML 1 APPLIC TOPICAL (11:55)
[2020-01-11] MEDS: LOSARTAN POTASSIUM 100 MG TABLET PO (12:07)
[2020-01-11 12:49] LABS: Glucose Point of Care 110 (65-105)
[2020-01-11 17:08] LABS: Glucose Point of Care 95 (65-105)
--- NOTE | 2020-01-11 18:02 | WPDINFPN2 ---
Subjective Date/time seen: 01/11/20 18:02 Objective Data Vital Signs Vital Signs: Vital Signs - 24 hr 01/10/20 21:11 01/10/20 21:48 01/10/20 21:57 Temperature Pulse Rate 72 75 77 Respiratory Rate 20 20 Blood Pressure Pulse Oximetry 01/10/20 22:00 01/11/20 02:44 01/11/20 02:54 Temperature 36.8 C Pulse Rate 57 L 71 72 Respiratory Rate 18 20 20 Blood Pressure 162/92 H Pulse Oximetry 99 01/11/20 06:00 01/11/20 08:00 01/11/20 09:29 Temperature 36.9 C Pulse Rate 70 80 90 Respiratory Rate 20 20 24 H Blood Pressure 162/90 H Pulse Oximetry 92 96 01/11/20 09:31 01/11/20 09:36 01/11/20 14:06 Temperature 36.4 C Pulse Rate 80 63 Respiratory Rate 20 20 Blood Pressure 144/95 H Pulse Oximetry 96 97 01/11/20 15:53 01/11/20 16:00 Temperature Pulse Rate 86 85 Respiratory Rate 20 20 Blood Pressure Pulse Oximetry Intake/Output Intake/Output: Intake & Output 01/08/20 01/09/20 01/10/20 01/11/20 23:59 23:59 23:59 23:59 Intake Total 2170 2430 2660 1180 Output Total 1600 1700 1900 650 Balance 570 730 760 530 Meds/Results Medications: Active Medications Generic Name Dose Route Start Last Admin Trade Name Freq PRN Reason Stop Dose Admin Acetaminophen 650 mg 12/30/19 23:59 01/08/20 23:58 Tylenol Tablet PO 650 mg Q4H PRN Administration Mild Pain (1-3) or Fever Chlordiazepoxide HCl 10 mg 12/30/19 00:00 01/11/20 12:07 Librium Po PO 10 mg Q6HR KALPESH Administration Dextrose 12.5 gm 12/29/19 22:28 Dextrose 50% Syringe IV PUSH PRN PRN Hypoglycemia Protocol Folic Acid 1 mg 12/30/19 09:00 01/11/20 11:53 Folic Acid PO 1 mg DAILY KALPESH Administration Gabapentin 100 mg 12/29/19 21:00 01/11/20 16:18 Neurontin PO 100 mg TID KALPESH Administration Glucagon 1 mg 12/29/19 22:28 Glucagon For Inj IM PRN PRN Hypoglycemia Protocol Glucose 15 gm 12/29/19 22:28 Glutose 15 PO PRN PRN Hypoglycemia Protocol Dextrose 1,000 mls @ 100 mls/hr 12/29/19 22:28 Dextrose 5% 1,000 Ml IVPB PRN PRN Hypoglycemia Protocol Oxacillin Sodium 2 gm/ Sodium 100 mls @ 200 mls/hr 01/11/20 13:00 01/11/20 16:00 Chloride IVPB 200 mls/hr Q4HR KALPESH Administration Insulin Aspart 2 - 5 units 12/30/19 08:00 01/11/20 16:48 Novolog SUB-Q Not Given TIDWM KALPESH Protocol Insulin Glargine 7 units 01/08/20 12:57 01/10/20 21:10 Lantus SUB-Q 7 units HS KALPESH Administration Ipratropium [place] 0.5 mg 12/30/19 02:00 01/11/20 15:52 Atrovent Neb INHALATION 0.5 mg Q6HRT KALPESH Administration Levalbuterol HCl 1.25 mg 12/30/19 02:00 01/11/20 15:52 Xopenex 1.25 Mg/0.5 Ml INHALATION 1.25 mg Q6HRT KALPESH Administration Losartan Potassium 100 mg 01/05/20 16:20 01/11/20 12:07 Cozaar PO 100 mg DAILY KALPESH Administration Metoprolol Tartrate 50 mg 01/02/20 21:00 01/11/20 11:54 Lopressor PO 50 mg Q12HR KALPES[facility] Administration Multi-Ingred Cream/Lotion/Oil/Oint 1 applic 12/30/19 09:00 01/11/20 11:54 Minerin Creme TOPICAL 1 applic QAM KALPESH Administration Ondansetron HCl 4 mg 12/29/19 14:34 Zofran Inj IV PUSH Q4H PRN Nausea Ondansetron HCl 4 mg 01/07/20 08:22 Zofran Inj IV PUSH ONCE PRN Nausea Ondansetron HCl 4 mg 01/07/20 13:11 Zofran Inj IV PUSH ONCE PRN Nausea Pantoprazole Sodium 40 mg 12/29/19 21:00 01/11/20 11:54 Protonix PO 40 mg Q12HR KALPESH Administration Prednisone 10 mg 01/09/20 08:00 01/11/20 11:52 Prednisone PO 10 mg DAILY@0800 [facility] Administration Senna 8.6 mg 12/29/19 21:31 Senokot Tablet PO BID PRN Constipation Sertraline HCl 50 mg 12/30/19 09:00 01/11/20 11:55 Zoloft PO 50 mg DAILY [facility] Administration Silver Nitrate 1 applic 12/30/19 13:00 01/11/20 11:55 Silvergel TOPICAL 1 applic DAILY [facility] Administra
--- NOTE | 2020-01-11 18:43 | PM.DS ---
DS: Diagnosis Admitting Diagnosis Admitting Diagnosis: Type 2 diabetes mellitus with other skin complications Discharge Diagnosis (1) Pneumonia: Qualifiers: Pneumonia type: due to unspecified organism Laterality: unspecified laterality Lung location: unspecified part of lung Qualified Code(s): J18.9 - Pneumonia, unspecified organism Code(s): J18.9 - Pneumonia, unspecified organism Status: Acute Assessment and Plan: Continue antibiotics as below, continues to improve D# 11 oxacillin for MSSA(negative culture 01/03 so day 7, finish 01/19, of IV oxacillin) (2) Bacteremia due to methicillin susceptible Staphylococcus aureus (MSSA): Code(s): R78.81 - Bacteremia; B95.61 - Methicillin susceptible Staphylococcus aureus infection as the cause of diseases classified elsewhere Status: Acute Assessment and Plan: Source clinically left 5th toe osteomyelitis, likely chronic, transthoracic echo normal EF and no vegetations seen Repeat blood cultures 12/31 POSITIVE MSSA 1/ and 01/03 negative Day 13 antibiotics, day 11 oxacillin, and ID recomends IV oxacillin through 01/19 followed by 2 weeks of po cephalexin 1 g q.i.d. (3) Severe sepsis: Code(s): A41.9 - Sepsis, unspecified organism; R65.20 - Severe sepsis without septic shock Status: Acute Assessment and Plan: Continue oxacillin Infection sources: diabetic foot infection and pneumonia. MSSA and Gp B strep in blood 12/31 repeated blood cultures also POSITIVE 1/2 Cultures from 01/03 so far negative WBC decreased to 14K , probable from steroids which have been tapered and stress of surgery, no ongoing infection, (4) Diabetic foot infection: Onset Date: Unknown Code(s): E11.628 - Type 2 diabetes mellitus with other skin complications; L08.9 - Local infection of the skin and subcutaneous tissue, unspecified Status: Acute Assessment and Plan: To f/u with plastics (Dr. Heaton) as outpatient Continue antibiotics. 01/03 MRI with osteomyelitis left 5th toe left transmetarsal amputation 01/06, POD# 4 Follow-up with Dr. Heaton and finish IV oxacillin through the with p.o. cephalexin 1 g q.i.d. for 2 more weeks (5) Acute exacerbation of chronic obstructive pulmonary disease: Code(s): J44.1 - Chronic obstructive pulmonary disease with (acute) exacerbation Status: Acute Assessment and Plan: Nebs, steroids(tapered), antibiotics, oxygen as needed (6) Alcoholism: Code(s): F10.20 - Alcohol dependence, uncomplicated Status: Chronic Assessment and Plan: ciwa Librium thiamin and folic acid and thiamine while here with no signs of any withdrawal (7) CHF (congestive heart failure): Qualifiers: Heart failure type: systolic Heart failure chronicity: chronic Qualified Code(s): I50.22 - Chronic systolic (congestive) heart failure Code(s): I50.9 - Heart failure, unspecified Status: Chronic Assessment and Plan: Clinically euvolemic. 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 Try Eucerin cream. May consider steroids. He takes p.o. steroids at home. However this could be delaying his healing. (10) Diabetes mellitus: Qualifiers: Diabetes mellitus type: type 2 Diabetes mellitus intermediate accountant insulin use: unspecif
== END 2020-01-11 16:55 | DRG 853 ==
LOC: ANHED 14:51 → ANHIMU 19:37 → ANH3MEDSUR 12-30 12:34 → ANHIMU 01-12 10:59
PROVIDERS: Family Medicine; Internal Medicine; Nurse Practitioner; Plastic Surgery; Admitting Provider Internal Medicine; Emergency Provider Emergency Medicine; PCP Emergency Medicine; Visit Provider Internal Medicine
PROC: 0Y6N0Z9 Detachment at Left Foot, Partial 1st Ray, Open Approach (ICD-10-PCS; principal; 2020-01-07 11:00)
DX: A41.01 Sepsis due to Methicillin susceptible Staphylococcus aureus (principal); J18.9 Pneumonia, unspecified organism; E11.52 Type 2 diabetes mellitus with diabetic peripheral angiopathy with gangrene; I96 Gangrene, not elsewhere classified; I50.22 Chronic systolic (congestive) heart failure; M86.672 Other chronic osteomyelitis, left ankle and foot; Z23 Encounter for immunization; E11.628 Type 2 diabetes mellitus with other skin complications; L08.9 Local infection of the skin and subcutaneous tissue, unspecified; F10.20 Alcohol dependence, uncomplicated; Q80.9 Congenital ichthyosis, unspecified; R65.20 Severe sepsis without septic shock; L97.521 Non-pressure chronic ulcer of other part of left foot limited to breakdown of skin; E11.65 Type 2 diabetes mellitus with hyperglycemia; E11.42 Type 2 diabetes mellitus with diabetic polyneuropathy; E11.621 Type 2 diabetes mellitus with foot ulcer; I48.91 Unspecified atrial fibrillation; Z89.431 Acquired absence of right foot; E11.69 Type 2 diabetes mellitus with other specified complication; I11.0 Hypertensive heart disease with heart failure; G62.9 Polyneuropathy, unspecified; F41.8 Other specified anxiety disorders; Z86.73 Personal history of transient ischemic attack (TIA), and cerebral infarction without residual deficits; E87.6 Hypokalemia; J43.9 Emphysema, unspecified; E78.2 Mixed hyperlipidemia; Z98.41 Cataract extraction status, right eye; Z98.42 Cataract extraction status, left eye; Z96.641 Presence of right artificial hip joint; Z99.81 Dependence on supplemental oxygen; W22.8XXA Striking against or struck by other objects, initial encounter; Z91.19 Patient's noncompliance with other medical treatment and regimen; K58.9 Irritable bowel syndrome, unspecified; D72.829 Elevated white blood cell count, unspecified; T38.0X5A Adverse effect of glucocorticoids and synthetic analogues, initial encounter; F17.210 Nicotine dependence, cigarettes, uncomplicated
CPT/HCPCS: 36415; 36569; 36600; 51701; 71046; 73630; 73718; 80048; 80053; 80061; 80202; 80307; 81001; 82274; 82375; 82570; 82805; 83036; 83050; 83540; 83550; 83605; 83735; 83880; 84100; 84132; 84300; 84443; 84484; 85025; 85027; 85046; 85055; 85610; 85652; 85730; 86140; 87040; 87070; 87077; 87081; 87186; 87205; 88305; 88311; 90471; 90686; 93005; 93306; 94640; 96361; 96365; 96367; 96368; 96375; 97110; 97116; 97162; 97164; 97165; 97530; 97535; 99285; A9270; C1751; G0008; J0131; J1100; J1815; J2405; J2543; J2700; J2704; J2930; J3010; J3370; J3475; J3480; J7030; J7040; J7120; J7512

== ENCOUNTER 2020-01-22 10:43 | Inpatient (IN) | payer OTHER, SELFPAY ==
[2020-01-22] VITALS (16 sets, daily range): BP systolic 108–181; BP diastolic 63–87; PULSE 54–89; RESP 11–21; TEMP 36.2–37.2; O2SAT 92–100; BMI 27.7
--- NOTE | ~2020-01-22 | XR_ITS ---
EXAMINATION: XR chest 1V portable DATE: 01/25/2020 05:42 INDICATION: Follow-up pulmonary infiltrates. TECHNIQUE: frontal view of the chest was obtained. COMPARISON: Chest radiograph dated 01/22/2020 FINDINGS: Right upper extremity peripherally inserted central venous catheter (PICC) tip at the cephalad super ior vena cava. Opacities in the left lower lung zone with blunting at the left costophrenic angle co nsistent with increasing small left pleural effusion and associated atelectasis and/or pneumonia. Mil d streaky atelectasis at the right lung base.. No pulmonary edema, pneumothorax or right pleural effu noe. The cardiomediastinal silhouette is normal. IMPRESSION: 1. Increased small left pleural effusion with atelectasis and/or pneumonia. Reviewed, dictated and finalized at location A.
--- NOTE | ~2020-01-22 | XR_ITS ---
EXAMINATION: XR chest 1V portable INDICATION: Shortness of breath TECHNIQUE: Portable AP chest at 1126 hours COMPARISON: 12/29/2019 FINDINGS: A left upper extremity PICC ends with its tip in the proximal superior vena cava. Patchy bi lateral airspace opacities are present. There is a small left pleural effusion. No pneumothorax is id entified. The cardiomediastinal silhouette is stable. There is thoracolumbar dextrocurvature. IMPRESSION: 1. Patchy bilateral airspace opacities, consistent with atelectasis versus pneumonia. 2. Left upper extremity PICC inserted ending with its tip at the proximal superior vena cava. 3. Small left pleural effusion. Reviewed, dictated and finalized at location B. IMPRESSION: 1. Patchy bilateral airspace opacities, consistent with atelectasis versus pneu monia. 2. Left upper extremity PICC inserted ending with its tip at the proximal super ior vena cava. 3. Small left pleural effusion.
--- NOTE | 2020-01-22 11:06 | ECG_ITS ---
Measurements Intervals [place] Rate: 83 P: MO: 0 QRS: 22 QRSD: 88 T: 60 QT: 346 QTc: 409 Interpretive Statements ATRIAL FIBRILLATION LOW QRS VOLTAGE IN LIMB LEADS BORDERLINE R WAVE PROGRESSION, ANTERIOR LEADS BORDERLINE ST-T WAVE ABNORMALITY- LATERAL LEADS BASELINE ARTIFACT- I, III, V3 ABNORMAL ECG Electronically Signed On 01-22-2020 11:17:14 CDT by Yahir Lopez D.O.
[2020-01-22 11:17] LABS: Basophils Percent Auto 0.5 % (0.2-1.2); Eosinophils Absolute Auto 0.2 K/mm3 (0-0.3); Eosinophils Percent Auto 2.6 % (0-4.4); Hematocrit 35.9 % (42.0-52.0); Hemoglobin 10.4 g/dL (14.0-18.0); Immature Granulocyte Absolute 0.04 K/mm3 (0.00-0.031); Immature Granulocyte Percent A 0.7 % (0-0.5); Lymphocytes Absolute Auto 1.16 K/mm3 (0.9-3.2); Lymphocytes Percent Auto 20.1 % (18.3-44.2); Mean Corpuscular Volume 96.5 fl (80-100); Mean Platelet Volume 9.5 fl (7.4-10.4); Monocytes Absolute Auto 0.6 K/mm3 (0.1-0.6); Monocytes Percent Auto 11.1 % (2.6-8.5); Neutrophils Absolute Auto 3.8 K/mm3 (1.3-6.7); Platelet Count Result 189 k/mm3 (150-375); Red Blood Count 3.72 M/mm3 (4.6-6.20); Red Cell Distribution Width 13.6 % (11.5-14.5); White Blood Count 5.8 K/mm3 (4.5-10.0)
[2020-01-22 11:18] LABS: Base Excess ABG 4.8 mEq/l (+/-2.0); Carboxyhemoglobin 0.6 % THb (0-2.0); Fractional Inspired Oxygen 36 %; HCO3 ABG 32.8 mEq/l (22.0-26.0); Methemoglobin ABG 0.3 %THb (0-1.5); Oxygen Content ABG 15.6 %vol (16.0-22.0); Oxygen Saturation ABG 99.3 % (95.0-100.0); Oxyhemoglobin 97.8 % THb (90.0-100.0); PO2 ABG 213.1 mmHg (80.0-100.0); PO2 FiO2 Ratio Arterial Blood 5.92 %; Reduced Hemoglobin 1.3 %THb (0-5.0); pH ABG 7.303 (7.350-7.450)
[2020-01-22 11:19] LABS: Device NASAL CANNULA; Modified Allen's Test Pass; PCO2 ABG 67.7 mmHg (35.0-45.0); Site Drawn RIGHT RADIAL
[2020-01-22 11:21] LABS: Add Urine Microscopic? YES; Appearance Urine Clear (Clear); Bilirubin Urine Negative (Negative); Blood Urine 1+ (Negative); Color Urine Yellow (Yellow); Glucose Urine UA Negative (Negative); Ketones Urine Trace mg/dL (Negative); Leukocyte Esterase Ur Negative LEU/UL (Negative); Mucus Urine Rare /lpf; Nitrate Urine Negative (Negative); Protein Urine 3+ mg/dL (Negative); Specific Grav Ur 1.015 (1.001-1.035); WBC Urine 0-3 /hpf
--- NOTE | 2020-01-22 11:25 | ED.AMS ---
HPI - Altered Mental Status General Chief Complaint: Altered Mental Status Stated Complaint: altered mental status/sob Time Seen by Provider: 01/22/20 10:43 Source: patient, RN notes reviewed and other (nurse at [facility]) Mode of arrival: EMS Limitations: altered mental status History of Present Illness HPI narrative: A 74 y/o male pt has arrived to the ED via EMS from [facility] with c/o altered mental status. According to the nurse, the pt was found to be alert and oriented X1 this morning. Pt is normally alert and oriented X3. Pt does not know where he is currently. The nurse at the [facility] reports wheezing and rales and that the pt was given a nebulizer treatment. Pt's O2 Saturation dinesh to 94% after receiving another nebulizer treatment while en route to the ED. Pt denies any pain or vomiting currently while in the ED bed. HPI is limited due to patient's altered mental status MD complaint: altered mental status Onset (ago): unknown Associated symptoms: other (confusion about where pt is) Treatments prior to arrival: other (nebulizer treatment) Related Data Home Medications Medication Instructions Recorded Confirmed albuterol sulfate 90 mcg/actuation 1 puff INHALATION Q4H PRN 09/30/19 12/29/19 aerosol inhaler ipratropium 0.5 mg-albuterol 3 mg 3 ml INHALATION Q6H PRN 09/30/19 12/29/19 (2.5 mg base)/3 mL nebulization soln metoprolol tartrate 50 mg tablet 50 mg PO Q12H 09/30/19 12/29/19 omeprazole 40 mg capsule,delayed 40 mg PO BID 09/30/19 12/29/19 release prednisone 2.5 mg tablet 2.5 mg PO DAILY 09/30/19 12/29/19 sennosides 8.6 mg capsule 8.6 mg PO BID PRN 09/30/19 12/29/19 sertraline 50 mg tablet 50 mg PO DAILY 09/30/19 12/29/19 aspirin [Aspirin Low Dose] 81 mg PO DAILY 12/29/19 12/29/19 multivitamin [Daily Multi-Vitamin] 1 tablet PO DAILY 12/29/19 12/29/19 Allergies Allergy/AdvReac Type Severity Reaction Status Date / Time niacin Allergy Unknown Unknown Verified 01/22/20 10:57 Review of Systems Review of Systems: Narrative: ROS is limited due to pt's altered mental status Constitutional: Constitutional: Denies other (pain in ED bed) Gastrointestinal: Gastrointestinal: Denies vomiting Neurologic: Reports confusion (about where pt is) [facility] Past Medical History Medical History Afib Alcoholism 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 Hypercholesteremia Hypoxemia IBS (irritable bowel syndrome) Ichthyosis Mixed hyperlipidemia Neuropathy Osteomyelitis Peripheral neuropathy Pneumonia Sacrum and coccyx fracture Smoker Type 2 diabetes mellitus without complications Unspecified systolic (congestive) heart failure Surgical History Surgical History H/O bilateral cataract extraction H/O colonoscopy H/O hernia repair History of right hip replacement Hx of amputation 1st, 2nd, 3rd, 4th, and 5th toes of left foot Hx of tonsillectomy Family History Family History Mother Patient's mother is , Onset Age: 31 Father Suicide Social History Social History Social History: Patient is a poor historian. Most of history is from that collected in the ED when the patient's daughter was available for information. Last admission his daughter Adwoa palmer with his power city attorney. The patient was a full code at that time. It was noted that he drinks most days of the week and consumes beer, lack a common whiskey and unknown qu
[2020-01-22 11:30] LABS: Alanine Aminotransferase 14 U/L (4-50); Albumin Level 3.4 g/dL (3.5-5.1); Alkaline Phosphatase 123 U/L (38-126); Aspartate Amino Transferase 34 U/L (17-59); Bilirubin,Total 0.6 mg/dL (0.2-1.3); Blood Urea Nitrogen 9 mg/dL (9-20); Calcium 8.7 mg/dL (8.4-10.2); Carbon Dioxide 39 mmol/L (22-30); Chloride 97 mmol/L (98-107); Estimated CRCL calculation 66 ml/min; Estimated Glomerular Filt Rate > 60; Glucose 115 mg/dL (75-110); Lactic Acid Reflex 1.1 mmol/L (0.7-2.1); Potassium 3.8 mmol/L (3.4-5.0); Sodium 138 mmol/L (137-145)
[2020-01-22 11:31] LABS: INR 1.1; Partial Thromboplastin Time 36.4 SECONDS (22.3-36.8); Prothrombin Time 14.2 Seconds (11.1-14.7)
[2020-01-22 11:38] LABS: NT Pro B Type Natriuretic Pept 21000 PG/ML (5-100)
[2020-01-22] MEDS: FUROSEMIDE INJ 40 MG/4 ML VIAL IV PUSH ×2 (12:12→22:19)
--- NOTE | 2020-01-22 14:27 | PC.NURSE ---
This patient, Ludin Mcguire, was admitted to IMU Room 231-01. Patient/family oriented to hospital policies and general routines including ID bracelet, bed and alarms, visiting hours, pain management, procedures, bathroom and other care routines, personal items, smoking policy, room service/diet, and visiting hours. Valuables list has been completed. Information on how to activate the Rapid Response Team has been discussed. Patient/Family are encouraged to report perceived risks to care and to ask questions if they do not understand what they are told or what they should do.
[2020-01-22 14:43] LABS: Glucose Point of Care 103 (65-105)
--- NOTE | 2020-01-22 20:45 | PM.IMHP ---
H&P: HPI History of Present Illness Chief complaint: hypercapnia with encephalopathy/CHF exacerbation Narrative: Ludin Mcguire is a 74 year old male who was just discharged from here on 01/11/2020 for osteomyelitis. On 01/09/2020 the patient had all 5 toes amputated on the left foot by Dr. Heaton. Patient has been a [facility]. EMS was activated to the [facility] due to patient's altered mental status. He is typically alert orientated x3 but this morning was only orientated to person. The patient had some wheezing and rales in the given nebulizer treatment. Patient's O2 saturations dinesh 94%. The patient has a PICC line in the left forearm. The patient had received IV antibiotics of oxacillin through January 19. Then patient was placed on cephalexin for an additional 2 weeks which he is now on. Patient had dry gangrene to the left foot. Have been staff like scott or wally and group B strep. Patient has drainage coming from his right foot dressing. Patchy bilateral airspace opacities consistent with atelectasis versus pneumonia. However the patient was treated for pneumonia while he was here this past admission earlier this month. Chest x-ray goes on to read left upper extremity PICC inserted ending with its tip at the proximal superior vena cava. Small left pleural effusion. Arterial blood gases were 7.3 pH, pCO2 67.7, PO2 is 213, bicarb 32.8. Patient was placed on a BiPAP BNP was [id number]. Patient is being admitted for exacerbation of congestive heart failure with acute respiratory failure. Date of service 01/22/2020 Review of Systems Review of Systems: Narrative: The patient stated that he is confused he does not understand why he is here today. I explained that earlier today he was confused and was coughing and was sent to the emergency department. He is currently on the BiPAP. I did take him off the BiPAP for few minutes so he would answer some questions. The patient stated that he just felt thirsty and hungry at this point. His a very poor historian. All systems reviewed & are unremarkable except as noted in HPI and below Constitutional: Constitutional: Reports as per HPI and Reports no additional constitutional complaints Eyes: Eyes: Reports as per HPI and Reports no additional eye complaints ENT: Reports system reviewed and no additional complaints, except as documented and Reports Normal hearing present Cardiovascular: Cardiovascular: Reports no additional cardiovascular complaints Respiratory: Respiratory: Reports no additional respiratory complaints and Reports no additional respiratory complaints Gastrointestinal: Gastrointestinal: Reports as per HPI and Reports no additional gastrointestinal complaints Musculoskeletal: Musculoskeletal: Reports no additional musculoskeletal complaints Integumentary/Breasts: Skin/Breast: Reports system reviewed and no additional complaints, except as docu and Reports as per HPI Neurologic: Reports system reviewed and no additional complaints, except as documented, Reports as per HPI and Reports Normal hearing present Psychiatric: Psychiatric: Reports no additional psychiatric complaints and Reports as per HPI Endocrine: Endocrine: Reports no additional endocrine complaints Hematologic/Lymphatic: Hematologic/Lymphatic: Reports no additional hematologic/lymphatic complaints Allergic/Immunologic: Allergic/Immunologic: Reports no additional allergic/immunologic complaints [facility] Past Medical History Medical History Afib Alcoholism 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
[2020-01-22] MEDS: METOPROLOL TARTRATE 50 MG TAB PO (22:21)
[2020-01-22] MEDS: methylPREDNISolone SOD SUCC 40 MG VIAL IV PUSH (22:21)
[2020-01-22 22:43] LABS: Glucose Point of Care 76 (65-105)
[2020-01-23] VITALS (15 sets, daily range): BP systolic 126–165; BP diastolic 65–85; PULSE 41–84; RESP 13–22; TEMP 36.2–36.9; O2SAT 95–100
[2020-01-23] MEDS: CEPHALEXIN 500 MG CAPSULE 1000 MG PO ×5 (01:41→23:57)
[2020-01-23] MEDS: methylPREDNISolone SOD SUCC 40 MG VIAL IV PUSH ×2 (05:52→20:23)
[2020-01-23 06:04] LABS: Hematocrit 31.9 % (42.0-52.0); Hemoglobin 9.7 g/dL (14.0-18.0); Immature Granulocyte Absolute 0.04 K/mm3 (0.00-0.031); Immature Granulocyte Percent A 0.9 % (0-0.5); Lymphocytes Absolute Auto 0.38 K/mm3 (0.9-3.2); Lymphocytes Percent Auto 8.6 % (18.3-44.2); Mean Corpuscular HGB Conc 30.4 g/dl (32-36); Mean Corpuscular Hemoglobin 28.3 pg (26-34); Mean Platelet Volume 9.6 fl (7.4-10.4); Monocytes Absolute Auto 0.1 K/mm3 (0.1-0.6); Neutrophils Absolute Auto 3.9 K/mm3 (1.3-6.7); Neutrophils Percent Auto 88.5 % (45.5-73.1); Platelet Count Result 173 k/mm3 (150-375); Red Blood Count 3.43 M/mm3 (4.6-6.20); Red Cell Distribution Width 13.4 % (11.5-14.5); White Blood Count 4.4 K/mm3 (4.5-10.0)
[2020-01-23 06:16] LABS: Alanine Aminotransferase 12 U/L (4-50); Albumin Level 2.9 g/dL (3.5-5.1); Alkaline Phosphatase 109 U/L (38-126); Aspartate Amino Transferase 27 U/L (17-59); Bilirubin,Total 0.6 mg/dL (0.2-1.3); Blood Urea Nitrogen 11 mg/dL (9-20); Calcium 8.3 mg/dL (8.4-10.2); Carbon Dioxide 37 mmol/L (22-30); Chloride 92 mmol/L (98-107); Estimated CRCL calculation 55 ml/min; Estimated Glomerular Filt Rate > 60; Glucose 148 mg/dL (75-110); Magnesium 1.1 mg/dL (1.6-2.3); Potassium 3.9 mmol/L (3.4-5.0); Sodium 135 mmol/L (137-145)
[2020-01-23 07:04] LABS: Thyroid Stimulating Hormone Reflex 0.801 uIU/mL (0.465-4.68)
[2020-01-23 07:59] LABS: Glucose Point of Care 144 (65-105)
[2020-01-23] MEDS: METOPROLOL TARTRATE 50 MG TAB PO ×2 (08:42→20:23)
[2020-01-23] MEDS: SERTRALINE HCL 50 MG TABLET PO (08:42)
[2020-01-23] MEDS: AMLODIPINE BESYLATE 5 MG TABLET 10 MG PO (08:43)
[2020-01-23] MEDS: GABAPENTIN 100 MG CAPSULE PO ×3 (08:43→17:11)
[2020-01-23] MEDS: SIMVASTATIN 10 MG TABLET PO (08:43)
[2020-01-23] MEDS: LOSARTAN POTASSIUM 25 MG TABLET PO (08:44)
[2020-01-23] MEDS: MULTIVITAMINS THERAPEUTIC TAB (*BKC) 1 TABLET PO (08:44)
[2020-01-23] MEDS: PANTOPRAZOLE 40 MG TABLET PO (08:44)
[2020-01-23] MEDS: SILVERGEL (ELTA) 45 ML 1 APPLIC TOPICAL (08:45)
[2020-01-23] MEDS: FUROSEMIDE INJ 40 MG/4 ML VIAL IV PUSH ×2 (08:49→20:22)
[2020-01-23] MEDS: ASPIRIN 81 MG CHEWABLE TABLET PO (08:49)
[2020-01-23] MEDS: TRAMADOL HCL 50 MG TABLET PO (11:01)
[2020-01-23] MEDS: MAGNESIUM SULFATE 3GM/D5W100ML 3 GM/100 ML BAG IVPB (11:17)
[2020-01-23 11:34] LABS: Glucose Point of Care 232 (65-105)
[2020-01-23] MEDS: INSULIN ASPART (*BKC) 100 UNITS/ML SUB-Q ×2 (12:18→17:12)
--- NOTE | 2020-01-23 14:15 | PM.IMPN ---
Progress Note: A&P Assessment and Plan (1) Acute hypercapnic respiratory failure: Code(s): J96.02 - Acute respiratory failure with hypercapnia Status: Acute Assessment and Plan: The patient does have a history of having COPD. Patient and was on BiPAP overnight. weaned the patient off he is more alert now. Looking at his chest x-ray most likely is more pulmonary edema. The patient to this recovered her having pneumonia earlier this month. Continue with patient's inhalers. And his nebulizer treatments. And continue IV Lasix (2) Afib: Qualifiers: Atrial fibrillation type: unspecified Qualified Code(s): I48.91 - Unspecified atrial fibrillation Code(s): I48.91 - Unspecified atrial fibrillation Status: Chronic Assessment and Plan: Rate is controlled. Continue with metoprolol. Not anticoagulated due to balance issues with falling and compliance issues (3) Acute exacerbation of CHF (congestive heart failure): Qualifiers: Heart failure type: unspecified Qualified Code(s): I50.9 - Heart failure, unspecified Code(s): I50.9 - Heart failure, unspecified Status: Acute Assessment and Plan: Continue with IV Lasix. Patient has diastolic congestive heart failure. Continue with losartan metoprolol. (4) Acute exacerbation of chronic obstructive pulmonary disease: Code(s): J44.1 - Chronic obstructive pulmonary disease with (acute) exacerbation Status: Acute Assessment and Plan: Patient was on low-dose prednisone I will give him IV Solu-Medrol instead. When needed monitor his blood sugars. Him 1 time he was on sliding scale insulin and Lantus 1 is here but that when he had an infection and is no longer on any treatment for his diabetes. (5) Depression: Qualifiers: Depression Type: unspecified Qualified Code(s): F32.9 - Major depressive disorder, single episode, unspecified Code(s): F32.9 - Major depressive disorder, single episode, unspecified Status: Chronic Assessment and Plan: Continue with sertraline (6) HTN (hypertension): Qualifiers: Hypertension type: essential hypertension Qualified Code(s): I10 - Essential (primary) hypertension Code(s): I10 - Essential (primary) hypertension Status: Chronic Assessment and Plan: Continue with losartan and metoprolol (7) Bacteremia due to methicillin susceptible Staphylococcus aureus (MSSA): Code(s): R78.81 - Bacteremia; B95.61 - Methicillin susceptible Staphylococcus aureus infection as the cause of diseases classified elsewhere Status: Acute Assessment and Plan: Patient had been on IV oxacillin till the of this month and is now on oral Keflex. Infectious Disease did see the patient when he was admitted here earlier this month. And will finish a 2 week course of the cephalexin (8) Diabetic foot infection: Onset Date: Unknown Code(s): E11.628 - Type 2 diabetes mellitus with other skin complications; L08.9 - Local infection of the skin and subcutaneous tissue, unspecified Status: Acute Assessment and Plan: Patient is still on Keflex. Wound care consult would greatly be appreciated for dressings to lower extremities. Subjective Date/time seen: 01/23/20 14:15 Interval history: Date of visit 01/22. 74-year-old white male with recent hospitalization for methicillin sensitive infected foot at with osteo. Had transmetatarsal amputation and finished 2 week course of oxacillin IV now on cephalexin 1 g q.i.d.. Developed more increasing shortness of breath over the last 2-3 days. No chest pain. Admitted and acute respiratory failure with hypercapnia and thought to be in congestive heart failure. Has responded to BiPAP but as well as updrafts and IV Lasix. Feels much better this a.m.. Exam Narrative: Exam Narrative: Blood pressure 144/80 pulse is 66 saturating 97% on 2 L nasal cannula afebri
[2020-01-23 16:45] LABS: Glucose Point of Care 242 (65-105)
--- NOTE | 2020-01-23 19:40 | PC.NURSE ---
This patient, Ludin Mcguire, was transferred to [ [id number]] on 01/23/20 at 2046. Personal belongings sent with patient. Belongings list checked and signed with receiving [ ]. Report given to [Lena MILLER ]. Appropriate documentation sent with patient.
--- NOTE | 2020-01-23 19:40 | PC.NURSE ---
Received from IMU at 1935. Report given by Marcus MILLER. Pt transported in bed. Bed alarm activated. Belonging list reviewed.
[2020-01-23 20:43] LABS: Glucose Point of Care 277 (65-105)
[2020-01-23 20:43] LABS: Glucose Point of Care 274 (65-105)
[2020-01-24] MEDS: CEPHALEXIN 500 MG CAPSULE 1000 MG PO ×3 (05:27→16:49)
[2020-01-24 05:43] LABS: Basophils Percent Auto 0.1 % (0.2-1.2); Hematocrit 34.7 % (42.0-52.0); Hemoglobin 10.8 g/dL (14.0-18.0); Immature Granulocyte Absolute 0.11 K/mm3 (0.00-0.031); Lymphocytes Absolute Auto 0.53 K/mm3 (0.9-3.2); Lymphocytes Percent Auto 4.8 % (18.3-44.2); Mean Corpuscular HGB Conc 31.1 g/dl (32-36); Mean Corpuscular Hemoglobin 28.3 pg (26-34); Mean Corpuscular Volume 91.1 fl (80-100); Mean Platelet Volume 9.4 fl (7.4-10.4); Monocytes Absolute Auto 0.4 K/mm3 (0.1-0.6); Monocytes Percent Auto 3.7 % (2.6-8.5); Neutrophils Absolute Auto 9.9 K/mm3 (1.3-6.7); Neutrophils Percent Auto 90.4 % (45.5-73.1); Platelet Count Result 253 k/mm3 (150-375); Red Blood Count 3.81 M/mm3 (4.6-6.20); White Blood Count 10.9 K/mm3 (4.5-10.0)
[2020-01-24 06:00] VITALS: BP 147/81; PULSE 71; RESP 20; TEMP 36.2; O2SAT 96
[2020-01-24 06:13] LABS: Blood Urea Nitrogen 17 mg/dL (9-20); Calcium 8.1 mg/dL (8.4-10.2); Carbon Dioxide > 40 mmol/L (22-30); Chloride 88 mmol/L (98-107); Estimated CRCL calculation 74 ml/min; Estimated Glomerular Filt Rate > 60; Glucose 216 mg/dL (75-110); Magnesium 1.6 mg/dL (1.6-2.3); Phosphorus 2.8 mg/dL (2.5-4.5); Potassium 3.7 mmol/L (3.4-5.0); Sodium 132 mmol/L (137-145)
[2020-01-24 08:06] LABS: Glucose Point of Care 206 (65-105)
[2020-01-24 08:12] VITALS: O2SAT 93
[2020-01-24] MEDS: INSULIN ASPART (*BKC) 100 UNITS/ML SUB-Q ×3 (08:25→16:49)
[2020-01-24] MEDS: ENOXAPARIN 40 MG/0.4 ML SYRINGE SUB-Q (08:29)
[2020-01-24] MEDS: FUROSEMIDE INJ 40 MG/4 ML VIAL IV PUSH (08:30)
[2020-01-24] MEDS: AMLODIPINE BESYLATE 5 MG TABLET 10 MG PO (08:30)
[2020-01-24] MEDS: LOSARTAN POTASSIUM 25 MG TABLET PO (08:31)
[2020-01-24] MEDS: GABAPENTIN 100 MG CAPSULE PO ×3 (08:31→16:49)
[2020-01-24] MEDS: MULTIVITAMINS THERAPEUTIC TAB (*BKC) 1 TABLET PO (08:31)
[2020-01-24] MEDS: SERTRALINE HCL 50 MG TABLET PO (08:31)
[2020-01-24] MEDS: PANTOPRAZOLE 40 MG TABLET PO (08:31)
[2020-01-24 08:32] VITALS: PULSE 70
[2020-01-24] MEDS: methylPREDNISolone SOD SUCC 40 MG VIAL IV PUSH (08:32)
[2020-01-24] MEDS: METOPROLOL TARTRATE 50 MG TAB PO ×2 (08:32→21:51)
[2020-01-24] MEDS: SIMVASTATIN 10 MG TABLET PO (08:32)
[2020-01-24] MEDS: SILVERGEL (ELTA) 45 ML 1 APPLIC TOPICAL (08:32)
--- NOTE | 2020-01-24 08:41 | PC.NURSE ---
Call pharmacy and requested 0900 dose of aspirin be sent to floor for administration.
[2020-01-24] MEDS: ASPIRIN 81 MG CHEWABLE TABLET PO (11:32)
[2020-01-24 11:50] LABS: Glucose Point of Care 205 (65-105)
--- NOTE | 2020-01-24 12:45 | PM.IMPN ---
Progress Note: A&P Assessment and Plan (1) Acute hypercapnic respiratory failure: Code(s): J96.02 - Acute respiratory failure with hypercapnia Status: Acute Assessment and Plan: The patient does have a history of having COPD. Patient was on BiPAP and weaned the patient off . Looking at his chest x-ray most likely is more pulmonary edema. The patient to this recovered her having pneumonia earlier this month. Continue with patient's inhalers. And his nebulizer treatments. And continue IV Lasix today and po 01/24 (2) Afib: Qualifiers: Atrial fibrillation type: unspecified Qualified Code(s): I48.91 - Unspecified atrial fibrillation Code(s): I48.91 - Unspecified atrial fibrillation Status: Chronic Assessment and Plan: Rate is controlled. Continue with metoprolol. Not anticoagulated due to balance issues with falling and compliance issues (3) Acute exacerbation of CHF (congestive heart failure): Qualifiers: Heart failure type: unspecified Qualified Code(s): I50.9 - Heart failure, unspecified Code(s): I50.9 - Heart failure, unspecified Status: Acute Assessment and Plan: Continue with IV Lasix today. Patient has diastolic congestive heart failure acute on chronic. Continue with losartan, metoprolol. (4) Acute exacerbation of chronic obstructive pulmonary disease: Code(s): J44.1 - Chronic obstructive pulmonary disease with (acute) exacerbation Status: Acute Assessment and Plan: Patient was on low-dose prednisone was given IV Solu-Medrol but believe is more cardiac so will d/c steroid. When needed monitor his blood sugars. SS (5) Depression: Qualifiers: Depression Type: unspecified Qualified Code(s): F32.9 - Major depressive disorder, single episode, unspecified Code(s): F32.9 - Major depressive disorder, single episode, unspecified Status: Chronic Assessment and Plan: Continue with sertraline (6) HTN (hypertension): Qualifiers: Hypertension type: essential hypertension Qualified Code(s): I10 - Essential (primary) hypertension Code(s): I10 - Essential (primary) hypertension Status: Chronic Assessment and Plan: Continue with losartan and metoprolol (7) Bacteremia due to methicillin susceptible Staphylococcus aureus (MSSA): Code(s): R78.81 - Bacteremia; B95.61 - Methicillin susceptible Staphylococcus aureus infection as the cause of diseases classified elsewhere Status: Acute Assessment and Plan: Patient had been on IV oxacillin till the of this month and is now on oral Keflex. Infectious Disease did see the patient when he was admitted here earlier this month. And will finish a 2 week course of the cephalexin (8) Diabetic foot infection: Onset Date: Unknown Code(s): E11.628 - Type 2 diabetes mellitus with other skin complications; L08.9 - Local infection of the skin and subcutaneous tissue, unspecified Status: Acute Assessment and Plan: Patient is still on Keflex. Wound care consult would greatly be appreciated for dressings to lower extremities. Subjective Date/time seen: 01/24/20 12:45 Interval history: Date of visit 01/23. 74-year-old white male with recent hospitalization for methicillin sensitive infected foot with osteo. Had transmetatarsal amputation and finished 2 week course of oxacillin IV now on cephalexin 1 g q.i.d.. Developed more increasing shortness of breath over the last 2-3 days prior to readmission. No chest pain. Admitted in acute respiratory failure with hypercapnia and thought to be in congestive heart failure. Has responded to BiPAP but as well as updrafts and IV Lasix. Feels better each day Exam Narrative: Exam Narrative: Blood pressure 146/80 pulse is 66 saturating 96% on 2 L nasal cannula afebrile Lungs clear CV regular no murmur Abdomen soft nontender Extremities without edema bot
[2020-01-24 14:00] VITALS: BP 134/69; PULSE 68; RESP 16; TEMP 36.3; O2SAT 98
[2020-01-24 16:33] LABS: Glucose Point of Care 210 (65-105)
[2020-01-24] MEDS: TRAMADOL HCL 50 MG TABLET PO (16:59)
[2020-01-24 19:08] VITALS: O2SAT 94
[2020-01-24 21:51] VITALS: PULSE 68
[2020-01-24 22:57] LABS: Glucose Point of Care 236 (65-105)
[2020-01-25] MEDS: CEPHALEXIN 500 MG CAPSULE 1000 MG PO ×4 (03:30→19:05)
[2020-01-25 05:55] VITALS: BP 152/60; PULSE 58; RESP 20; TEMP 36.3; O2SAT 98
[2020-01-25 06:00] LABS: Blood Urea Nitrogen 18 mg/dL (9-20); Calcium 7.9 mg/dL (8.4-10.2); Carbon Dioxide > 40 mmol/L (22-30); Chloride 88 mmol/L (98-107); Estimated CRCL calculation 74 ml/min; Estimated Glomerular Filt Rate > 60; Glucose 130 mg/dL (75-110); Potassium 3.6 mmol/L (3.4-5.0); Sodium 134 mmol/L (137-145)
[2020-01-25 08:44] LABS: Glucose Point of Care 130 (65-105)
[2020-01-25 08:48] VITALS: PULSE 101; RESP 18; O2SAT 98
[2020-01-25] MEDS: ENOXAPARIN 40 MG/0.4 ML SYRINGE SUB-Q (10:10)
[2020-01-25] MEDS: SIMVASTATIN 10 MG TABLET PO (10:11)
[2020-01-25] MEDS: FUROSEMIDE 40 MG TABLET PO (10:11)
[2020-01-25] MEDS: MULTIVITAMINS THERAPEUTIC TAB (*BKC) 1 TABLET PO (10:11)
[2020-01-25] MEDS: AMLODIPINE BESYLATE 5 MG TABLET 10 MG PO (10:11)
[2020-01-25] MEDS: GABAPENTIN 100 MG CAPSULE PO ×3 (10:11→17:40)
[2020-01-25 10:12] VITALS: PULSE 101
[2020-01-25] MEDS: PANTOPRAZOLE 40 MG TABLET PO (10:12)
[2020-01-25] MEDS: SILVERGEL (ELTA) 45 ML 1 APPLIC TOPICAL (10:12)
[2020-01-25] MEDS: METOPROLOL TARTRATE 50 MG TAB PO (10:12)
[2020-01-25] MEDS: LOSARTAN POTASSIUM 25 MG TABLET PO (10:12)
[2020-01-25] MEDS: SERTRALINE HCL 50 MG TABLET PO (10:12)
[2020-01-25] MEDS: ASPIRIN 81 MG CHEWABLE TABLET PO (10:13)
--- NOTE | 2020-01-25 10:44 | PM.IMPN ---
Progress Note: A&P Assessment and Plan (1) Acute hypercapnic respiratory failure: Code(s): J96.02 - Acute respiratory failure with hypercapnia Status: Acute Assessment and Plan: The patient does have a history of having COPD. Patient was on BiPAP and weaned the patient off . Looking at his chest x-ray most likely is more pulmonary edema. The patient recovered from having pneumonia earlier this month. Continue with patient's inhalers. And his nebulizer treatments. repeat cxr less PVR and left pleurall effusion mild and still present . continue po lasix now (2) Afib: Qualifiers: Atrial fibrillation type: unspecified Qualified Code(s): I48.91 - Unspecified atrial fibrillation Code(s): I48.91 - Unspecified atrial fibrillation Status: Chronic Assessment and Plan: Rate is controlled. Continue with metoprolol. Not anticoagulated due to balance issues with falling and compliance issues (3) Acute exacerbation of CHF (congestive heart failure): Qualifiers: Heart failure type: unspecified Qualified Code(s): I50.9 - Heart failure, unspecified Code(s): I50.9 - Heart failure, unspecified Status: Acute Assessment and Plan: . Patient has diastolic congestive heart failure acute on chronic. Continue with losartan, metoprolol. (4) Acute exacerbation of chronic obstructive pulmonary disease: Code(s): J44.1 - Chronic obstructive pulmonary disease with (acute) exacerbation Status: Acute Assessment and Plan: Patient was on low-dose prednisone was given IV Solu-Medrol but believe is more cardiac so will d/c steroid. Blood suger down some this am (5) Depression: Qualifiers: Depression Type: unspecified Qualified Code(s): F32.9 - Major depressive disorder, single episode, unspecified Code(s): F32.9 - Major depressive disorder, single episode, unspecified Status: Chronic Assessment and Plan: Continue with sertraline (6) HTN (hypertension): Qualifiers: Hypertension type: essential hypertension Qualified Code(s): I10 - Essential (primary) hypertension Code(s): I10 - Essential (primary) hypertension Status: Chronic Assessment and Plan: Continue with losartan and metoprolol (7) Bacteremia due to methicillin susceptible Staphylococcus aureus (MSSA): Code(s): R78.81 - Bacteremia; B95.61 - Methicillin susceptible Staphylococcus aureus infection as the cause of diseases classified elsewhere Status: Acute Assessment and Plan: Patient had been on IV oxacillin till the of this month and is now on oral Keflex. Infectious Disease did see the patient when he was admitted here earlier this month. And will finish a 2 week course of the cephalexin (8) Diabetic foot infection: Onset Date: Unknown Code(s): E11.628 - Type 2 diabetes mellitus with other skin complications; L08.9 - Local infection of the skin and subcutaneous tissue, unspecified Status: Acute Assessment and Plan: Patient is still on Keflex. Wound care feels wound should be seen by Dr Tompkins so will consult while here. (9) DVT prophylaxis: Code(s): Z29.9 - Encounter for prophylactic measures, unspecified Status: Acute Assessment and Plan: lovenox Subjective Date/time seen: 01/25/20 10:44 Interval history: Date of visit 01/24. 74-year-old white male with recent hospitalization for methicillin sensitive infected foot with osteo. Had transmetatarsal amputation and finished 2 week course of oxacillin IV now on cephalexin 1 g q.i.d.. Developed more increasing shortness of breath over the last 2-3 days prior to readmission. No chest pain. Admitted in acute respiratory failure with hypercapnia and thought to be in congestive heart failure. Has responded to BiPAP but as well as updrafts and IV Lasix. Feels better each day Wound care feels Dr Tompkins should see foot
--- NOTE | 2020-01-25 13:29 | WPDCN ---
Assessment and Plan Assessment and plan (1) Diabetic foot infection: Onset Date: Unknown Code(s): E11.628 - Type 2 diabetes mellitus with other skin complications; L08.9 - Local infection of the skin and subcutaneous tissue, unspecified Status: Acute Assessment and Plan: WBC has been generally less than 10. Cellulitis is not evident on my visit. Dehiscence is not a total surprise but wound should heal by secondary intention eventually. Blood supply at the level of the amputation was good. Swelling may have caused dehiscence. Will continue generally same care but switch dressing to more absorbent Mepilex Silver. F/U with wound center in [address] Heaton to see then. HPI Data of Consult Date/Time: 01/25/20 13:29 Requesting Physician: Oleg Lovett MD Primary Care Provider: Master Colbert MD Consult Narrative Narrative: Ludin Mcguire is a 74 year old male with multiple admissions for CHF. I had done Left 5 digit transmetatarsal amputation 16 days ago for osteomyelitis of one toe but with known marked ischemia of the toes beyond the palpable ankle pulses This is the first time I have seen him since. He remains on Cephalexin oral antibiotics managed by Dr Longo. Pt has been at a [facility]. Weight bearing is supposed to be heel only on the left. Hx of tobacco and non compliance. Currently on low dose prednisone. Wound is completely dehisced with sutures only on one side of the wound. No cellulitis, odor or foul drainage. Not tender. No bone is palpable. 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 Hypercholesteremia Hypoxemia IBS (irritable bowel syndrome) Ichthyosis Mixed hyperlipidemia Neuropathy Osteomyelitis Peripheral neuropathy Pneumonia Sacrum and coccyx fracture Smoker Type 2 diabetes mellitus without complications Unspecified systolic (congestive) heart failure Surgical History Surgical History H/O bilateral cataract extraction H/O colonoscopy H/O hernia repair History of right hip replacement Hx of amputation 1st, 2nd, 3rd, 4th, and 5th toes of left foot Hx of tonsillectomy Family History Family History Mother Patient's mother is , Onset Age: 31 Father Suicide Social History Social History (Updated 01/22/20 @ 21:13 by Nahomi Rosario NP) Social History: Patient is a poor historian. Most of history is from that collected in the ED when the patient's daughter was available for information. Last admission his daughter Adwoa palmer with his power trial attorney. The patient was a full code at that time. It was noted that he drinks most days of the week and consumes beer, lack a common whiskey and unknown quantities. He denies any drug use. He is . 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 The patient tells me that he had 7 children. He is now at [facility]. Smoking packs per day: 1 Smoking cigarettes per day: 20.0 Years smoked: 58 Smoking pack-years: 58.00 Smoking status: Heavy tobacco smoker Tobacco type: cigarettes Second hand tobacco smoke exposure: Yes Smoking end date: 12/28/18 Alcohol intake: former Substance use: former Substance use type: former substance user and marijuana Additional living arrangements comments: Per daughter, patient has a caregiver that is with him for
[2020-01-25 14:00] VITALS: BP 137/85; PULSE 74; RESP 18; TEMP 36.4; O2SAT 99
[2020-01-25] MEDS: POTASSIUM CHLORIDE 20 MEQ TABLET PO (15:28)
--- NOTE | 2020-01-25 17:33 | PM.DS ---
DS: Diagnosis Admitting Diagnosis Admitting Diagnosis: Acute respiratory failure with hypercapnia Discharge Diagnosis (1) Acute hypercapnic respiratory failure: Code(s): J96.02 - Acute respiratory failure with hypercapnia Status: Acute Assessment and Plan: The patient does have a history of having COPD. Patient was on BiPAP and weaned the patient off . Looking at his chest x-ray most likely is more pulmonary edema. The patient recovered from having pneumonia earlier this month. Continued with patient's inhalers. And his nebulizer treatments. repeat cxr today 01/24 less PVR but left pleural effusion mild and still present . continue po lasix on d/c (2) Afib: Qualifiers: Atrial fibrillation type: unspecified Qualified Code(s): I48.91 - Unspecified atrial fibrillation Code(s): I48.91 - Unspecified atrial fibrillation Status: Chronic Assessment and Plan: Rate is controlled. Continue with metoprolol. Not anticoagulated due to balance issues with falling and compliance issues (3) Acute exacerbation of CHF (congestive heart failure): Qualifiers: Heart failure type: unspecified Qualified Code(s): I50.9 - Heart failure, unspecified Code(s): I50.9 - Heart failure, unspecified Status: Acute Assessment and Plan: . Patient has diastolic congestive heart failure acute on chronic. Continue with losartan, metoprolol.and now lasix (4) Acute exacerbation of chronic obstructive pulmonary disease: Code(s): J44.1 - Chronic obstructive pulmonary disease with (acute) exacerbation Status: Acute Assessment and Plan: Patient was on low-dose prednisone was given IV Solu-Medrol but believe is more cardiac so d/josseline IV steroid. Blood suger down some this am (5) Depression: Qualifiers: Depression Type: unspecified Qualified Code(s): F32.9 - Major depressive disorder, single episode, unspecified Code(s): F32.9 - Major depressive disorder, single episode, unspecified Status: Chronic Assessment and Plan: Continue with sertraline (6) HTN (hypertension): Qualifiers: Hypertension type: essential hypertension Qualified Code(s): I10 - Essential (primary) hypertension Code(s): I10 - Essential (primary) hypertension Status: Chronic Assessment and Plan: Continue with losartan and metoprolol (7) Bacteremia due to methicillin susceptible Staphylococcus aureus (MSSA): Code(s): R78.81 - Bacteremia; B95.61 - Methicillin susceptible Staphylococcus aureus infection as the cause of diseases classified elsewhere Status: Acute Assessment and Plan: Patient had been on IV oxacillin till the of this month and is now on oral Keflex. Infectious Disease did see the patient when he was admitted here earlier this month. And will finish a 2 week course of the cephalexin (8) Diabetic foot infection: Onset Date: Unknown Code(s): E11.628 - Type 2 diabetes mellitus with other skin complications; L08.9 - Local infection of the skin and subcutaneous tissue, unspecified Status: Acute Assessment and Plan: Patient is still on Keflex. Wound care feels wound should be seen by Dr Heaton He evaluated the patient and felt there was some mild wound dehiscence but no evidence of cellulitis or active infection. He will continue on his p.o. cephalexin and dressing change to Mepilex Silver for absorbency and follow-up with Dr. Heaton in the wound center in 2 weeks DS: Summary Hospital Course Hospital Course: 74-year-old white male known COPD and diastolic heart failure admitted with acute on chronic respiratory failure with hypercapnia. [place] to be primarily acute on chronic diastolic heart failure and responded quickly to IV Lasix with the BiPAP. He will be maintained on p.o. Lasix on discharge along with his usual amlodipine and losartan. Repeat BMP on the . He with seen by
[2020-01-25 17:43] LABS: Glucose Point of Care 175 (65-105)
== END 2020-01-25 19:20 | DRG 291 ==
LOC: ANHED 12:52 → ANHIMU 13:25 → ANH2MED 01-23 19:24
PROVIDERS: Nurse Practitioner; Admitting Provider Internal Medicine; Emergency Provider Emergency Medicine; PCP Emergency Medicine; Visit Provider Internal Medicine
DX: I11.0 Hypertensive heart disease with heart failure (principal); J96.22 Acute and chronic respiratory failure with hypercapnia; I48.20 Chronic atrial fibrillation, unspecified; R78.81 Bacteremia; T81.30XA Disruption of wound, unspecified, initial encounter; I50.33 Acute on chronic diastolic (congestive) heart failure; F32.9 Major depressive disorder, single episode, unspecified; J43.9 Emphysema, unspecified; E11.628 Type 2 diabetes mellitus with other skin complications; L08.9 Local infection of the skin and subcutaneous tissue, unspecified; F41.8 Other specified anxiety disorders; K21.9 Gastro-esophageal reflux disease without esophagitis; E78.2 Mixed hyperlipidemia; E11.42 Type 2 diabetes mellitus with diabetic polyneuropathy; K58.9 Irritable bowel syndrome, unspecified; B95.61 Methicillin susceptible Staphylococcus aureus infection as the cause of diseases classified elsewhere; F17.210 Nicotine dependence, cigarettes, uncomplicated; Z96.641 Presence of right artificial hip joint; Z87.891 Personal history of nicotine dependence; Z89.422 Acquired absence of other left toe(s); Z98.42 Cataract extraction status, left eye; Z98.41 Cataract extraction status, right eye
CPT/HCPCS: 36415; 36600; 51701; 71045; 80048; 80053; 81001; 82375; 82805; 83050; 83605; 83735; 83880; 84100; 84443; 85025; 85610; 85730; 87040; 87070; 87077; 87186; 87205; 93005; 94002; 96374; 99291; A9270; J1650; J1815; J1940; J2920; J3475

== ENCOUNTER 2020-06-24 10:54 | Outpatient (CLI) | payer OTHER, SELFPAY ==
--- NOTE | ~2020-06-24 | XR_ITS ---
EXAMINATION: XR foot LT 2V DATE: 06/24/2020 11:08 INDICATION: Left foot wound. TECHNIQUE: 2 views of left foot were obtained. COMPARISON: Left foot radiographs 12/29/2019, MRI 01/03/2020 FINDINGS: There are changes of transmetatarsal amputation of the forefoot. No acute fracture. There a re erosions of the stumps of first and second metatarsals. Joint spaces are normal. IMPRESSION: 1. Erosions of the stumps of first and second metatarsals, consistent with osteomyelitis. Reviewed, dictated and finalized at location B. IMPRESSION: 1. Erosions of the stumps of first and second metatarsals, consistent with oste omyelitis.
[2020-06-24 12:59] LABS: Creatinine Urine 92.2 mg/dL
[2020-06-24 13:13] LABS: Prostate Specific Antigen 0.5 ng/mL (< OR = 4.0)
[2020-06-24 14:20] LABS: MALB Creatinine Ratio 533.1 mg/g (0-30); Microalbumin Urine Random 491.5 mg/L (0-16.7)
== END 2020-06-24 10:55 | disposition home or self-care (01) ==
LOC: ANHED 11:22 → ANHIMG 11:33
PROVIDERS: PCP Emergency Medicine; Visit Provider Emergency Medicine
DX: S91.309A Unspecified open wound, unspecified foot, initial encounter (principal); Z12.5 Encounter for screening for malignant neoplasm of prostate; E11.65 Type 2 diabetes mellitus with hyperglycemia; X58.XXXA Exposure to other specified factors, initial encounter; E78.5 Hyperlipidemia, unspecified
CPT/HCPCS: 36415; 73620; 82043; 84153; G0103

== ENCOUNTER 2020-06-27 11:50 | Inpatient (IN) | payer OTHER, MEDICAID, SELFPAY ==
[2020-06-27] VITALS (22 sets, daily range): BP systolic 99–171; BP diastolic 45–89; PULSE 34–103; RESP 15–118; TEMP 35.7–36.7; O2SAT 92–98
--- NOTE | ~2020-06-27 | XR_ITS ---
EXAMINATION: XR foot LT min 3V DATE: 06/27/2020 13:31 INDICATION: Left foot osteomyelitis. TECHNIQUE: 4 views of left foot were obtained. COMPARISON: Left foot radiographs 06/24/2020, 12/29/2019 FINDINGS: There are changes of transmetatarsal amputation of the forefoot. There are erosions of the stumps of the first and second metatarsals. Joint spaces are normal. IMPRESSION: 1. Erosions of the stumps of the first and second metatarsals, consistent with osteomyelitis. Reviewed, dictated and finalized at location A.
--- NOTE | ~2020-06-27 | XR_ITS ---
EXAMINATION: XR chest 1V portable INDICATION: Tachypnea TECHNIQUE: Portable AP chest at 0355 hours COMPARISON: 01/25/2020 FINDINGS: Patchy bilateral interstitial and airspace opacities are present. A small left pleural effu noe is suggested. There is no pneumothorax. The cardiomediastinal silhouette is stable. IMPRESSION: 1. Patchy bilateral interstitial and airspace opacities, consistent with atelectasis versus pneumonia versus pulmonary edema. Reviewed, dictated and finalized at location A. IMPRESSION: 1. Patchy bilateral interstitial and airspace opacities, consistent with atelec tasis versus pneumonia versus pulmonary edema.
--- NOTE | 2020-06-27 12:51 | ED.EXTPRO ---
HPI - Extremity Problem General Chief complaint: Extremity Problem,Nontraumatic Stated complaint: left foot infection Time Seen by Provider: 06/27/20 12:51 Source: patient Mode of arrival: wheelchair Limitations: no limitations History of Present Illness HPI Narrative: Patient is a 74-year-old with a history of osteomyelitis of the foot, diabetes, alcoholism who presents to the emergency department for evaluation of left foot redness, concern for possible recurrent osteomyelitis due to wound. Patient was seen by his primary care provider Dr. Colbert on Saturday. Apparently, they were concerned for ongoing foot infection and patient was referred to this facility today. Patient denies any fever or chills. He has severe neuropathy and does not appreciate any pain in his foot. There is been some drainage and erythema overlying the left foot per the patient. When asked if the patient is currently on any antibiotics the patient states he has no idea. Per chart review, patient apparently saw Dr. Colbert on Saturday, June 24 there was concern for sepsis, osteomyelitis in the left foot. He had been given an orthopedic referral and started on clindamycin and I do not know if the patient actually filled this prescription. Related Data Home Medications Medication Instructions Recorded Confirmed albuterol sulfate 90 mcg/actuation 1 puff INHALATION Q4H PRN 09/30/19 01/22/20 aerosol inhaler metoprolol tartrate 50 mg tablet 50 mg PO Q12H 09/30/19 01/22/20 prednisone 2.5 mg tablet 2.5 mg PO DAILY 09/30/19 01/22/20 multivitamin [Daily Multi-Vitamin] 1 tablet PO DAILY 12/29/19 01/22/20 aspirin [Aspirin Childrens] 81 mg PO DAILY 01/22/20 01/22/20 losartan 25 mg PO DAILY 01/22/20 01/22/20 omeprazole 20 mg PO DAILY 01/22/20 01/22/20 Allergies Allergy/AdvReac Type Severity Reaction Status Date / Time niacin Allergy Unknown Unknown Verified 06/27/20 12:06 Review of Systems Review of Systems: Narrative: CONSTITUTIONAL: Denies fever CARDIOVASCULAR: Denies chest pain RESPIRATORY: Denies cough or dyspnea. 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 Amputation of toe of right foot all on the right Anxiety Asthma CHF (congestive heart failure) Diastolic COPD (chronic obstructive pulmonary disease) COPD mixed type Cough CVA (cerebral vascular accident) Depression Diabetes mellitus Diabetic foot infection (Unknown) Dyspnea on exertion Emphysema of lung GERD (gastroesophageal reflux disease) GERD without esophagitis HLD (hyperlipidemia) HTN (hypertension) Hypercholesteremia Hypoxemia IBS (irritable bowel syndrome) Ichthyosis Mixed hyperlipidemia Neuropathy Osteomyelitis Peripheral neuropathy Pneumonia Sacrum and coccyx fracture Smoker Type 2 diabetes mellitus without complications Unspecified systolic (congestive) heart failure Surgical History Surgical History (Updated 06/27/20 @ 17:11 by Nahomi Rosario NP) H/O bilateral cataract extraction H/O colonoscopy H/O hernia repair History of right hip replacement Hx of amputation 1st, 2nd, 3rd, 4th, and 5th toes of left foot as well as right foot. Hx of tonsillectomy Family History Family History Mother Patient's mother is , Onset Age: 31 Father Suicide Social History Social History (Updated 06/27/20 @ 17:12 by Nahomi Rosairo NP) Social History: Patient is a poor historian. Most of history is from that collected in the ED when the patient's daughter was available for information. Last admission his daughter Adwoa palmer with his power real estate attorney. The patient was a full code at that time. It was noted that he drinks most days of the
--- NOTE | 2020-06-27 13:18 | ECG_ITS ---
Measurements Intervals [place] Rate: 36 P: SD: 0 QRS: 45 QRSD: 89 T: 50 QT: 482 QTc: 376 Interpretive Statements ATRIAL FIBRILLATION WITH SLOW VENTRICULAR RESPPONSE ANTEROSEPTAL INFARCT, AGE INDETERMINATE BORDERLINE ST ABNORMALITY- LATERAL LEADS BASELINE WANDER- III, V1 ABNORMAL ECG Electronically Signed On 06-27-2020 15:24:17 CDT by Yahir Lopez D.O.
--- NOTE | 2020-06-27 13:26 | PC.NURSE ---
Pt hooked up to the bandage maker. Pt heart rate dropping into low 30s. EKG obtained. crash cart in room. MD joel
[2020-06-27 13:34] LABS: Basophils Percent Auto 0.3 % (0.2-1.2); Eosinophils Absolute Auto 0.1 K/mm3 (0-0.3); Eosinophils Percent Auto 1.1 % (0-4.4); Hematocrit 42.2 % (42.0-52.0); Hemoglobin 12.8 g/dL (14.0-18.0); Immature Granulocyte Absolute 0.05 K/mm3 (0.00-0.031); Immature Granulocyte Percent A 0.5 % (0-0.5); Lymphocytes Absolute Auto 1.38 K/mm3 (0.9-3.2); Lymphocytes Percent Auto 13.1 % (18.3-44.2); Mean Corpuscular HGB Conc 30.3 g/dl (32-36); Mean Corpuscular Hemoglobin 23.9 pg (26-34); Mean Corpuscular Volume 78.9 fl (80-100); Mean Platelet Volume 9.4 fl (7.4-10.4); Monocytes Absolute Auto 0.6 K/mm3 (0.1-0.6); Monocytes Percent Auto 5.6 % (2.6-8.5); Neutrophils Absolute Auto 8.4 K/mm3 (1.3-6.7); Neutrophils Percent Auto 79.4 % (45.5-73.1); Platelet Count Result 267 k/mm3 (150-375); Red Blood Count 5.35 M/mm3 (4.6-6.20); Red Cell Distribution Width 15.2 % (11.5-14.5); White Blood Count 10.5 K/mm3 (4.5-10.0)
[2020-06-27] MEDS: ATROPINE SULFATE 1 MG/10 ML SYRINGE IV PUSH (13:34)
[2020-06-27 13:49] LABS: Lactic Acid 1.2 mmol/L (0.7-2.1)
[2020-06-27 13:51] LABS: Anion Gap 10 mmol/L (8-16); Blood Urea Nitrogen 22 mg/dL (9-20); CRP 1.3 mg/dL (<1.0); Calcium 8.3 mg/dL (8.4-10.2); Carbon Dioxide 23 mmol/L (22-30); Chloride 100 mmol/L (98-107); Estimated CRCL calculation 38 ml/min; Estimated Glomerular Filt Rate 40; Glucose 111 mg/dL (75-110); Potassium 4.6 mmol/L (3.4-5.0); Sodium 133 mmol/L (137-145)
[2020-06-27 14:10] LABS: Erythrocyte Sedimentation Rate 19 mm/hr (0-20)
--- NOTE | 2020-06-27 16:50 | PM.IMHP ---
H&P: HPI History of Present Illness Date/Time: 06/27/20 16:50 Chief complaint: A fib w slow ventricular response/Osteomyelitis l Narrative: Ludin Mcguire is a 74 year old male Who had been here back in December due to osteomyelitis of the left forefoot in 5 toes. Patient had trans metatarsal amputation of the 5 toes of the left foot back on 01/09/[address] Heaton. And then he returned to the hospital January 22, 2020 for pneumonia versus CHF. The patient has been wheelchair-bound since then. [facility] that he just recently was [facility] from there. Patient went to see his primary care doctor on and received an ortho referral was started on clindamycin. He was advised to go back to ER if he became septic. So the patient came to the hospital today due to left foot redness concern for possible recurrent osteomyelitis. The patient denied any fever chills. He does use a wheelchair for mobility. Patient was placed on heart monitor and found to be in AFib with slow response. There is some foul smell from the left stump and clear drainage. His heart rate did drop down to the 36 in the ED provider called on this Ali who is his market risk specialist. It was suggested that the patient's metoprolol be held for now and then cut his metoprolol in half he is on a twice a day. The patient did not have any hypotension when the rate decreased. The patient has had a history of having Pseudomonas in his wounds in the past. Patient had a previous right forefoot amputation in the past possibly year to go. The patient still continues to drink alcohol daily. Foot x-ray was read as erosions of the stump of the 1st and 2nd metatarsals consistent with osteomyelitis. Patient was started on vancomycin and Primaxin as he is diabetic. It looks like the patient was given atropine x1 due to the low heart rate. Date of service 06/27/2020 Review of Systems Review of Systems: All systems reviewed & are unremarkable except as noted in HPI and below Constitutional: Constitutional: Reports as per HPI and Reports no additional constitutional complaints Eyes: Eyes: Reports as per HPI and Reports no additional eye complaints ENT: Reports system reviewed and no additional complaints, except as documented and Reports Normal hearing present Cardiovascular: Cardiovascular: Reports no additional cardiovascular complaints Respiratory: Respiratory: Reports no additional respiratory complaints and Reports no additional respiratory complaints Gastrointestinal: Gastrointestinal: Reports as per HPI and Reports no additional gastrointestinal complaints Musculoskeletal: Musculoskeletal: Reports no additional musculoskeletal complaints Integumentary/Breasts: Skin/Breast: Reports system reviewed and no additional complaints, except as docu and Reports as per HPI Neurologic: Reports system reviewed and no additional complaints, except as documented, Reports as per HPI and Reports Normal hearing present Psychiatric: Psychiatric: Reports no additional psychiatric complaints and Reports as per HPI Endocrine: Endocrine: Reports no additional endocrine complaints Hematologic/Lymphatic: Hematologic/Lymphatic: Reports no additional hematologic/lymphatic complaints Allergic/Immunologic: Allergic/Immunologic: Reports no additional allergic/immunologic complaints PMFSH Past Medical History Medical History (Updated 06/27/20 @ 17:28 by Nahomi Rosario NP) Afib Alcoholism 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 Amputation of right forefoot Amputation of toe of right foot all on the right Anxiety Asthma CHF (congestive heart failure) Diastolic COPD (chronic obstructive pulmonary disease) COPD mixed type Cough CVA (cerebral vascular accident) Depression Diabetes mellitus Diabetic foot infection (Unknown) Dyspnea on exertion Emphysema of lung GERD (gastroesophageal reflux disease) GERD without esophagitis HLD (hyperlipidemia) HTN (hypertension) Hyperchol
--- NOTE | 2020-06-27 17:39 | ADMGEN ---
This patient, Ludin Mcguire, was admitted to IMU Room 202-01 at 1724 on 06/27/2020. Patient/family oriented to hospital policies and general routines including ID bracelet, bed and alarms, visiting hours, pain management, procedures, bathroom and other care routines, personal items, smoking policy, room service/diet, and visiting hours. Valuables list has been completed. Information on how to activate the Rapid Response Team has been discussed. Patient/Family are encouraged to report perceived risks to care and to ask questions if they do not understand what they are told or what they should do.
--- NOTE | 2020-06-27 17:58 | PM.CNGS ---
Assessment and Plan Assessment and plan (1) Foot osteomyelitis, left: Qualifiers: Osteomyelitis type: other acute Qualified Code(s): M86.172 - Other acute osteomyelitis, left ankle and foot Code(s): M86.9 - Osteomyelitis, unspecified Status: Acute Assessment and Plan: plain films and exam suggest diabetic foot infection and recurrent osteomyelitis of 1st and 2nd metatarsals following left transmetatarsal amputation done in December by Dr. Heatno. I discussed with the patient that it appears he has more bone infection and I am not sure his lower leg can be salvaged. He has a good posterior tibial pulse in the left foot as well as a good popliteal and femoral pulse in the left leg. I do not feel that vascular impairment is the reason for his osteomyelitis. Will follow response to antibiotics and consider MRI. (2) Diabetic foot infection: Onset Date: Unknown Code(s): E11.628 - Type 2 diabetes mellitus with other skin complications; L08.9 - Local infection of the skin and subcutaneous tissue, unspecified Status: Acute Assessment and Plan: See above. (3) Wound, open, foot: Code(s): S91.309A - Unspecified open wound, unspecified foot, initial encounter Status: Chronic Assessment and Plan: Had skin dehiscence of left TMA and has never really closed. Underlying tissue is pink and healthy appearing. (4) Atrial fibrillation with slow ventricular response: Code(s): I48.91 - Unspecified atrial fibrillation Status: Acute Assessment and Plan: Severe bradycardia, Dr. Sanchez to consult. (5) Noncompliance: Code(s): Z91.19 - Patient's noncompliance with other medical treatment and regimen Status: Chronic History of Present Illness Consult details Consult date: 06/27/20 Reason for consult: other ( Recurrent osteomyelitis 1st and 2nd metatarsals) Narrative: patient is a 74-year-old man with multiple medical and behavioral problems including insulin-dependent diabetes with neuropathy, icthyosis, alcoholism and noncompliance. The patient had a right transmetatarsal amputation January 24, [address] Heaton. He had already had 3 toes amputated and now had osteomyelitis of the metatarsal of the 2nd and 3rd remaining toes. The patient healed from that but then in early December of 2019 presented with dry gangrene of several toes as well as the distal forefoot. There was evidence on MRI of osteomyelitis of the proximal phalanx 5th toe. He was seen by General surgery and subsequently by Dr. Heaton. On 01/07/2020 he underwent a left transmetatarsal amputation. He had a skin dehiscence after the surgery. He was treated with antibiotics for 2 weeks due to oxacillin sensitive Staph aureus infection. Most recently, the patient noted some drainage and redness overlying the left transmetatarsal amputation site and forefoot. He saw his primary care physician, Dr. Colbert, on Saturday06/24/2020. There was concern for recurrent osteomyelitis. The patient was given a prescription for clindamycin but it is unknown whether he took any of this. Referral to Orthopedics was given as well. Patient was brought to the emergency room by his family today for for concerns regarding recurrent osteomyelitis. Patient is unable to take care of himself but refuses to go for [place] [facility]. The skin never closed over the left TMA. He has no feeling in the foot so has not experienced any pain. Plain films were obtained in the emergency room and show erosions of the ends of the 1st and 2nd metatarsals consistent with recurrent osteomyelitis. Dr. Heaton is currently unavailable and I was asked to see the patient in consultation. I saw him in the emergency room and looked at his x-rays. I also discussed his care with the emergency room physician Dr. Rosenthal. Also while the patient was in the emergency room, he was noted to have a heart rate of 36. This was found to be
[2020-06-27] MEDS: ALBUTEROL SULFATE NEB 2.5 MG/0.5 ML INH 5 MG INHALATION (20:00)
[2020-06-27] MEDS: IPRATROPIUM BR 0.02% INH SOLN 0.5 MG/2.5 ML VIAL INHALATION (20:00)
[2020-06-27] MEDS: ALPRAZolam 0.5 MG TABLET 1 MG PO (20:39)
[2020-06-27 20:42] LABS: Glucose Point of Care 106 (65-105)
[2020-06-27] MEDS: traMADol HCL 50 MG TABLET PO (22:01)
[2020-06-28] VITALS (21 sets, daily range): BP systolic 119–150; BP diastolic 55–83; PULSE 55–107; RESP 18–24; TEMP 36.5–36.8; O2SAT 94–99
--- NOTE | 2020-06-28 | ECHO_ITS ---
Patient Info Name: Ludin Mcguire Age: 74 years : 1945 Gender: Male Ht: 72 in Wt: 169 lbs BSA: 1.97 m2 HR: 67 bpm BP: 127 / 73 mmHg Heart Rhythm: Atrial Fibrillation Technical Quality: Good Exam Date: 06/28/2020 2:20 PM Exam Location: [facility] Patient Status: Inpatient Admit Date: 06/28/2020 Staff Ordering Physician: Destin Bob MD [employer] Honer: Noel Whitaker, PASQUALE, RT Attending Provider: Oleg Lovett MD Referring Physician: Paulino VASQUEZ; Exam Type: CA echo dop color flow w con Study Info Indications I48.1 - Persistent atrial fibrillation Complete two-dimensional, color flow and Doppler transthoracic echocardiogram is performed with contrast to opacify the left ventricle and to improve the deliniation of the left ventricle endocardial borders. Summary 1. Left ventricular chamber dimension is normal. 2. Left ventricular systolic function is normal, estimated at 60-65%. 3. There is mildly increased left ventricular wall thickness. 4. The left ventricular diastolic function is indeterminate. 5. Right ventricular chamber dimension is moderately enlarged. 6. Right ventricular systolic function is reduced. 7. Left atrial chamber dimension is mildly enlarged. 8. Right atrial chamber dimension is mildly enlarged. 9. There is moderate aortic valve sclerosis. 10. There is mild tricuspid valve regurgitation. 11. Mild pulmonary hypertension, estimated pulmonary arterial systolic pressure is 41 mmHg. 12. The mitral valve has calcified leaflets and calcified annulus. 13. There is mild mitral valve regurgitation. 14. There is mild pulmonic regurgitation. Left Ventricle Left ventricular chamber dimension is normal. Left ventricular systolic function is normal, estimated at 60-65%. There is mildly increased left ventricular wall thickness. The left ventricular diastolic function is indeterminate. Right Ventricle Right ventricular chamber dimension is moderately enlarged. Right ventricular systolic function is reduced. Left Atria Left atrial chamber dimension is mildly enlarged. Right Atria Right atrial chamber dimension is mildly enlarged. Atrial Septum Intact interatrial septum visualized by color flow imaging. Aortic Valve The aortic valve is probable trileaflet. There is moderate aortic valve sclerosis. There is no aortic valve stenosis. There is trace aortic valve regurgitation. Pulmonic Valve The pulmonic valve is normal. There is no pulmonic valve stenosis. There is mild pulmonic regurgitation. Mitral Valve The mitral valve has calcified leaflets and calcified annulus. There is no mitral valve stenosis. There is mild mitral valve regurgitation. Tricuspid Valve The tricuspid valve leaflets are normal. There is no significant tricuspid valve stenosis. There is mild tricuspid valve regurgitation. Mild pulmonary hypertension, estimated pulmonary arterial systolic pressure is 41 mmHg. Pericardium/Pleural The pericardium appears normal. There is no pericardial effusion. Inferior Vena Cava Normal inferior vena cava with >50% collapse upon inspiration consistent with normal right atrial pressure, 5 mmHg. Aorta The aortic root size at the sinus of Valsalva is normal. The prox ascending aorta size is normal. There is mild aortic atherosclerosis. Left Ventricular Outflow Tract Name Value Nor
[2020-06-28] MEDS: GABAPENTIN 100 MG CAPSULE PO ×4 (00:16→21:37)
[2020-06-28] MEDS: chlordiazePOXIDE 5 MG CAPSULE 25 MG PO (01:49)
[2020-06-28] MEDS: ALBUTEROL SULFATE NEB 2.5 MG/0.5 ML INH 5 MG INHALATION ×4 (01:59→20:04)
[2020-06-28] MEDS: IPRATROPIUM BR 0.02% INH SOLN 0.5 MG/2.5 ML VIAL INHALATION ×4 (02:00→20:04)
[2020-06-28 05:43] LABS: Hematocrit 35.4 % (42.0-52.0); Hemoglobin 11.1 g/dL (14.0-18.0); Mean Corpuscular HGB Conc 31.4 g/dl (32-36); Mean Corpuscular Hemoglobin 24.1 pg (26-34); Platelet Count Result 235 k/mm3 (150-375)
[2020-06-28 06:05] LABS: Alanine Aminotransferase 14 U/L (4-50); Albumin Level 3.5 g/dL (3.5-5.1); Alkaline Phosphatase 89 U/L (38-126); Anion Gap 8 mmol/L (8-16); Aspartate Amino Transferase 29 U/L (17-59); Bilirubin,Total 0.4 mg/dL (0.2-1.3); Blood Urea Nitrogen 18 mg/dL (9-20); Calcium 8.4 mg/dL (8.4-10.2); Carbon Dioxide 25 mmol/L (22-30); Chloride 99 mmol/L (98-107); Estimated CRCL calculation 58 ml/min; Estimated Glomerular Filt Rate > 60; Glucose 148 mg/dL (75-110); Lactate Dehydrogenase 356 U/L (313-618); Potassium 4.1 mmol/L (3.4-5.0); Sodium 132 mmol/L (137-145)
[2020-06-28 06:13] LABS: Lymphocytes Absolute Manual 1.87 K/mm3 (1.1-4.5); Monocytes Absolute Manual 0.34 K/mm3 (0.1-0.90); Monocytes Percent Manual 2 % (3-9); Neutrophils Percent Manual 87 % (46-73); Platelet Estimate Adequate (Adequate); Total Cells Counted 100
[2020-06-28] MEDS: FUROSEMIDE INJ 40 MG/4 ML VIAL 20 MG IV PUSH (06:27)
[2020-06-28 07:11] LABS: Thyroid Stimulating Hormone Reflex 0.775 uIU/mL (0.465-4.68)
[2020-06-28 08:26] LABS: Glucose Point of Care 109 (65-105)
[2020-06-28] MEDS: SIMVASTATIN 10 MG TABLET PO (10:45)
[2020-06-28] MEDS: PANTOPRAZOLE 40 MG TABLET PO (10:46)
[2020-06-28] MEDS: FOLIC ACID 1 MG TABLET PO (10:46)
[2020-06-28] MEDS: SERTRALINE HCL 50 MG TABLET PO (10:46)
[2020-06-28] MEDS: SILVERGEL (ELTA) 45 ML 1 APPLIC TOPICAL (10:46)
[2020-06-28] MEDS: predniSONE 2.5 MG TABLET PO (10:46)
[2020-06-28] MEDS: ALPRAZolam 0.5 MG TABLET 1 MG PO ×2 (10:51→21:35)
--- NOTE | 2020-06-28 11:33 | PM.PNGS ---
Progress Note: A&P Assessment and Plan (1) Foot osteomyelitis, left: Qualifiers: Osteomyelitis type: other acute Qualified Code(s): M86.172 - Other acute osteomyelitis, left ankle and foot Code(s): M86.9 - Osteomyelitis, unspecified Status: Acute Assessment and Plan: erythema to distal left foot but no purulent drainage. Plain films show osteomyelitis of the 1st and 2nd metatarsal. Patient would like to see Dr. Heaton. I spoke with Dr. Heaton who will consult. I do not see much opportunity for revision of the TMA. Patient does not want below-knee amputation. We will see what Dr. Heaton thinks. (2) Wound, open, foot: Code(s): S91.309A - Unspecified open wound, unspecified foot, initial encounter Status: Chronic Assessment and Plan: Start silver gel dressings daily. (3) Noncompliance: Code(s): Z91.19 - Patient's noncompliance with other medical treatment and regimen Status: Chronic (4) Atrial fibrillation with slow ventricular response: Code(s): I48.91 - Unspecified atrial fibrillation Status: Acute Assessment and Plan: Cardiology to see. Subjective Subjective Date/Time Seen: 06/28/20 11:33 Patient reports: no new complaints Review of Systems Review of Systems: All systems reviewed & are unremarkable except as noted in HPI and below Constitutional: Constitutional: Denies body ache(s), Denies chills, Denies fever(s) and Denies night sweats Cardiovascular: Cardiovascular: Denies chest pain and Denies dyspnea Respiratory: Respiratory: Denies cough and Denies dyspnea Exam Const: General: comfortable and no acute distress; No confusion Nutritional Appearance: thin Cardio: Rate: tachycardic Rhythm: regular rhythm and abnormal rhythm irregularly irregular GI: Inspection: normal to inspection and non-distended GI Palp: Yes Soft to palpation, No Tenderness to palpation present (GI), No Guarding due to palpation present (GI) and No Rebound tenderness present Auscultation: normal bowel sounds Neuro: General: no focal motor deficits, CN's II-XI intact bilaterally and No confusion Speech: normal speech Extrem: General: no calf tenderness and no edema Left lower extremity: foot ( no purulent drainage, open area pink and healthy) Details: warmth and other ( erythematous distal instep leading to TMA) Psych: Affect: normal affect Insight: Good insight present (Psych) Judgement: Good judgement present (Psych) Objective Data Vital Signs Vital Signs: Vital Signs - 24 hr 06/27/20 12:02 06/27/20 13:16 06/27/20 13:17 Temperature 36.6 C Pulse Rate 88 34 L 38 L Respiratory Rate 18 118 H Blood Pressure 117/45 L 122/59 L 122/59 L Pulse Oximetry 93 96 96 06/27/20 13:47 06/27/20 14:01 06/27/20 14:16 Temperature Pulse Rate 61 55 L 52 L Respiratory Rate 21 H 17 17 Blood Pressure 137/62 130/61 123/76 Pulse Oximetry 98 93 94 06/27/20 14:31 06/27/20 14:46 06/27/20 15:01 Temperature Pulse Rate 52 L 63 49 L Respiratory Rate 20 17 19 Blood Pressure 138/58 L 134/78 125/71 Pulse Oximetry 96 98 06/27/20 15:16 06/27/20 15:24 06/27/20 15:34 Temperature Pulse Rate 60 48 L 53 L Respiratory Rate 18 15 26 H Blood Pressure 129/69 129/69 Pulse Oximetry 97 94 95 06/27/20 16:17 06/27/20 16:33 06/27/20 16:46 Temperature Pulse Rate 40 L 59 L 58 L Respiratory Rate 18 20 16 Blood Pressure 99/60 L 102/83 130/72 Pulse Oximetry 06/27/20 17:42 06/27/20 18:00 06/27/20 20:00 Temperature 35.7 C L 36.6 C Pulse Rate 48 L 58 L 64 Respiratory Rate 18 20 Blood Pressure 151/66 H 171/68 H Pulse Oximetry 94 98 06/27/20 20:05 06/27/20 20:09 06/27/20 22:00 Temperature Pulse Rate 60 87 Respiratory Rate 20 Blood Pressure Pulse Oximetry 95 06/27/20 23:17 06/28/20 00:00 06/28/20 01:55 Temperature 36.7 C Pulse Rate 103 H 95 95 Respiratory Rate 24 H 24 H Blood Pressure 132/89 Pulse Oximet
[2020-06-28 12:49] LABS: Glucose Point of Care 125 (65-105)
--- NOTE | 2020-06-28 12:55 | PM.CNCAR ---
Assessment and Plan Assessment and plan (1) Atrial fibrillation with slow ventricular response: Code(s): I48.91 - Unspecified atrial fibrillation Status: Acute Assessment and Plan: will reduce his metoprolol down to 25 mg p.o. b.i.d.. 2D echocardiogram Doppler will be ordered. He can transfer to Medicine with telemetry if needed. discontinue further diuretics. I do not think he is in significant heart failure. Check a free T4 level. (2) Acute exacerbation of chronic obstructive pulmonary disease: Code(s): J44.1 - Chronic obstructive pulmonary disease with (acute) exacerbation Status: Acute (3) HTN (hypertension): Qualifiers: Hypertension type: essential hypertension Qualified Code(s): I10 - Essential (primary) hypertension Code(s): I10 - Essential (primary) hypertension Status: Chronic Assessment and Plan: At goal (4) Foot osteomyelitis, left: Qualifiers: Osteomyelitis type: other acute Qualified Code(s): M86.172 - Other acute osteomyelitis, left ankle and foot Code(s): M86.9 - Osteomyelitis, unspecified Status: Acute Assessment and Plan: per surgeons History of Present Illness History of Present Illness Consult date/time: 06/28/20 12:55 Requesting physician: Ivonne Rosenthal MD Consult reason: atrial fibrillation Reason For Visit: A fib w slow ventricular response/Osteomyelitis l Narrative: Reason for consultation: Atrial fibrillation with slow ventricular response Date of service 06/28/2020 History patient is a 74-year-old male who actually came to hospital because of osteomyelitis and issues with his left foot. He did have a transmetatarsal amputation his left foot on 01/09/[address] Heaton. Later MR she was admitted for pneumonia versus heart failure. On 06/24/2020 he was started on clindamycin by his primary care physician recommend he go to the emergency department if he became septic. On the day of admission patient's left foot became more red and there is concern about repeat /recurring osteomyelitis. While on the monitor, patient was found to be in atrial fibrillation with heart rate would temporarily dipped down into the 30s. He was given atropine x1 frontal on reasons except for bradycardia. There is no evidence or documentation of hemodynamic instability. Regardless currently his heart rate is in the 70s and is feeling fine. He denies any chest pain. He does have chronic dyspnea on exertion which is not better or worse than usual. He denies any syncope, presyncope, paroxysmal nocturnal dyspnea, orthopnea. No edema. No palpitations. He thinks that his dyspnea has been present for least 5 years. Does not think it is any better but certainly no worse. He has been seen by Dr. alves in consultation and Dr. Heaton has also been consulted but it appears that the patient may need further amputation Review of Systems Review of Systems: All systems reviewed & are unremarkable except as noted in HPI and below Constitutional: Constitutional: Denies weakness Eyes: Eyes: Denies blurry vision ENT: Denies Normal hearing present Cardiovascular: Cardiovascular: Denies chest pain Respiratory: Respiratory: Reports dyspnea Gastrointestinal: Gastrointestinal: Denies abdominal pain and Denies bloating Genitourinary: Genitourinary: Denies dysuria Musculoskeletal: Musculoskeletal: Denies back pain and Denies neck pain Integumentary/Breasts: Skin/Breast: Denies dry skin Neurologic: Denies headache(s) Psychiatric: Psychiatric: Denies anxiety and Denies confusion Endocrine: Endocrine: Denies fatigue Hematologic/Lymphatic: Hematologic/Lymphatic: Denies easy bleeding Allergic/Immunologic: Allergic/Immunologic: Denies GI upset with certain foods 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 Amputation of right
[2020-06-28 13:55] LABS: T4 Thyroxine 4.47 ug/dL (5.53-11.0)
--- NOTE | 2020-06-28 17:07 | PM.IMPN ---
Progress Note: A&P Assessment and Plan (1) Foot osteomyelitis, left: Qualifiers: Osteomyelitis type: other acute Qualified Code(s): M86.172 - Other acute osteomyelitis, left ankle and foot Code(s): M86.9 - Osteomyelitis, unspecified Status: Acute Assessment and Plan: patient was started on vancomycin and Zosyn. blood cultures and foot cultures are pending. Surgery has been consulted. 06/28/20 17:07 patient is 74-year-old male with history of diabetes status post transmetatarsal amputation presented with redness swelling and on plain film showed osteomyelitis patient is seen by surgery team and suspect the patient will need amputation below the however patient is refusing to have the procedure, patient is being treated with imipenem and vancomycin for the osteomyelitis, patient will be seen by his Dr. Goetz who had previously treated the patient and further recommendation to follow. patient was also found to have atrial fibrillation with slow ventricular response seen by long wall shear operator patient was taking metoprolol 50 mg b.i.d. which is reduced 25 mg b.i.d., patient is somewhat confused but denies any fever or chills denies any chest pain shortness of breath palpitation (2) Atrial fibrillation with slow ventricular response: Code(s): I48.91 - Unspecified atrial fibrillation Status: Acute Assessment and Plan: his long wall shear operator has been notified and it was suggested that we hold metoprolol for now and cut his dosage in half. Patient was given atropine in the emergency room. (3) HTN (hypertension): Qualifiers: Hypertension type: essential hypertension Qualified Code(s): I10 - Essential (primary) hypertension Code(s): I10 - Essential (primary) hypertension Status: Chronic Assessment and Plan: Patient's heart rate is low side held his hypertensive medication plus he has acute renal failure so his blood pressure medications are on hold at this time. (4) CHF (congestive heart failure): Qualifiers: Heart failure type: systolic Heart failure chronicity: chronic Qualified Code(s): I50.22 - Chronic systolic (congestive) heart failure Code(s): I50.9 - Heart failure, unspecified Status: Chronic Assessment and Plan: Metoprolol on hold at this time. Losartan on hold. (5) Alcoholism: Code(s): F10.20 - Alcohol dependence, uncomplicated Status: Chronic Assessment and Plan: Continue with gabapentin. Will check to see while she is continue with p.r.n. Librium. Continue with folic acid. (6) COPD mixed type: Code(s): J44.9 - Chronic obstructive pulmonary disease, unspecified Status: Chronic Assessment and Plan: Continue with inhaler. 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 (8) ARF (acute renal failure): Code(s): N17.9 - Acute kidney failure, unspecified Status: Acute Assessment and Plan: Hold arb (9) HLD (hyperlipidemia): Code(s): E78.5 - Hyperlipidemia, unspecified Status: Acute Assessment and Plan: continue with simvastatin. Subjective Date/time seen: 06/28/20 17:07 patient is 74-year-old male with history of diabetes status post transmetatarsal amputation presented with redness swelling and on plain film showed osteomyelitis patient is seen by surgery team and suspect the patient will need amputation below the however patient is refusing to have the procedure, patient is being treated with imipenem and vancomycin for the osteomyelitis
[2020-06-28 17:09] LABS: Glucose Point of Care 156 (65-105)
--- NOTE | 2020-06-28 18:46 | WPDCN ---
Assessment and Plan Additional Plan Arterial Doppler may be useful in decision making. I will review the x-rays with radiologist. Dr Longo's opinion will be helpful. Surgical options should include only BKA. Pt may wish to manage the foot with dressing care. HPI Data of Consult Date/Time: 06/28/20 18:46 Requesting Physician: Oleg Lovett MD Primary Care Provider: Master Colbert MD Consult Narrative Reason for consult: Non healing diabetic left foot wound with osteomyelitis. Narrative: Ludin Mcguire is a 74 year old male Diabetic alcoholic who lives alone and cares for his own left foot wound. He was delivered to the ER by his daughter who was directed by Dr Colbert to do so, I believe. The foot was noted to be infected in Dr Colbert' office. The left forefoot was amputated earlier this year. The opposite forefoot was amputated in 2017. The left has not healed since surgery. The wound is a narrow transversely oriented opening lined with calloused skin and granulated within. It measures approx. 1.5 x 6.0 cm. There is no purulence or necrosis. Bone is not palpable. Recent x-ray notes erosions of the heads of the 1st and 2nd metatarsals. There is slight erythema dorsally. The patient is said do be noncompliant, especially with his Etoh cessation. He expresses a desire to be treated by antibiotics and to go home. WBC has been elevated to 17.0. There may have been significant cellulitis yesterday. 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 Anxiety Asthma CHF (congestive heart failure) Diastolic COPD (chronic obstructive pulmonary disease) COPD mixed type Cough CVA (cerebral vascular accident) Depression Diabetes mellitus Diabetic foot infection (Unknown) Dyspnea on exertion Emphysema of lung GERD (gastroesophageal reflux disease) GERD without esophagitis HLD (hyperlipidemia) HTN (hypertension) Hypercholesteremia Hypoxemia IBS (irritable bowel syndrome) Ichthyosis Mixed hyperlipidemia Neuropathy Osteomyelitis Peripheral neuropathy Pneumonia Sacrum and coccyx fracture Smoker Type 2 diabetes mellitus without complications Unspecified systolic (congestive) heart failure Surgical History Surgical History H/O bilateral cataract extraction H/O colonoscopy H/O hernia repair History of right hip replacement Hx of amputation 1st, 2nd, 3rd, 4th, and 5th toes of left foot as well as right foot. Hx of tonsillectomy Family History Family History Mother Patient's mother is , Onset Age: 31 Father Suicide Social History Social History Social History: Patient is a poor historian. Most of history is from that collected in the ED when the patient's daughter was available for information. Last admission his daughter Adwoa palmer with his power corporate attorney. The patient was a full code at that time. It was noted that he drinks most days of the week and consumes beer, whiskey of unknown quantities. He denies any drug use. He is . 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 The patient tells me that he had 7 children. Smoking packs per day: 1 Smoking cigarettes per day: 20.0 Years smoked: 58 Smoking pack-years: 58.00 Smoking status: Former smoker Tobacco type: cigarettes Second hand tobacco smoke exposure: Yes Smoking end date: 12/28/18 Alcohol intake: current Drinks per week: 21 Substance use: never Substance use type: former substance user and marijuana Additional living arrangements comments: Per daughter, patient has a caregiver that is with him for a few hour
[2020-06-28 20:04] LABS: Glucose Point of Care 155 (65-105)
[2020-06-28] MEDS: METOPROLOL TARTRATE 25 MG TABLET PO (21:37)
[2020-06-29] VITALS (23 sets, daily range): BP systolic 122–147; BP diastolic 51–82; PULSE 45–98; RESP 16–22; TEMP 36.1–36.6; O2SAT 94–100
[2020-06-29] MEDS: ALBUTEROL SULFATE NEB 2.5 MG/0.5 ML INH 5 MG INHALATION ×4 (01:38→20:41)
[2020-06-29] MEDS: IPRATROPIUM BR 0.02% INH SOLN 0.5 MG/2.5 ML VIAL INHALATION ×4 (01:39→20:41)
[2020-06-29 05:46] LABS: Hemoglobin 10.9 g/dL (14.0-18.0); Mean Corpuscular HGB Conc 30.3 g/dl (32-36); Mean Corpuscular Hemoglobin 23.3 pg (26-34); Mean Corpuscular Volume 77.1 fl (80-100); Mean Platelet Volume 9.8 fl (7.4-10.4); Platelet Count Result 215 k/mm3 (150-375); Red Blood Count 4.67 M/mm3 (4.6-6.20); Red Cell Distribution Width 15.1 % (11.5-14.5)
[2020-06-29 06:10] LABS: Anion Gap 7 mmol/L (8-16); Blood Urea Nitrogen 19 mg/dL (9-20); Calcium 8.5 mg/dL (8.4-10.2); Carbon Dioxide 29 mmol/L (22-30); Chloride 98 mmol/L (98-107); Estimated CRCL calculation 63 ml/min; Estimated Glomerular Filt Rate > 60; Glucose 119 mg/dL (75-110); Potassium 3.6 mmol/L (3.4-5.0); Sodium 134 mmol/L (137-145)
[2020-06-29] MEDS: PANTOPRAZOLE 40 MG TABLET PO (08:39)
[2020-06-29] MEDS: SERTRALINE HCL 50 MG TABLET PO (08:39)
[2020-06-29] MEDS: SIMVASTATIN 10 MG TABLET PO (08:39)
[2020-06-29] MEDS: GABAPENTIN 100 MG CAPSULE PO ×3 (08:39→17:56)
[2020-06-29] MEDS: FOLIC ACID 1 MG TABLET PO (08:39)
[2020-06-29] MEDS: predniSONE 2.5 MG TABLET PO (08:39)
[2020-06-29] MEDS: SILVERGEL (ELTA) 45 ML 1 APPLIC TOPICAL (08:40)
[2020-06-29] MEDS: METOPROLOL TARTRATE 25 MG TABLET PO ×2 (08:41→20:27)
--- NOTE | 2020-06-29 08:41 | PM.PNGS ---
Progress Note: A&P Assessment and Plan (1) Wound, open, foot: Code(s): S91.309A - Unspecified open wound, unspecified foot, initial encounter Status: Chronic Assessment and Plan: would continue silver gel dressing changes to left transmetatarsal amputation wound daily after discharge. (2) Foot osteomyelitis, left: Qualifiers: Osteomyelitis type: other acute Qualified Code(s): M86.172 - Other acute osteomyelitis, left ankle and foot Code(s): M86.9 - Osteomyelitis, unspecified Status: Acute Assessment and Plan: Infectious disease to see. Dr. Heaton's consult appreciated. Only surgical option if further surgery to be done is left [id number] which patient refuses. Recommend dressing changes and outpatient management when patient able to be discharged. Erythema of the forefoot is nearly gone. It may have been more from bumping the end of the foot than infection. Subjective Subjective Date/Time Seen: 06/29/20 08:41 Patient reports: no new complaints Review of Systems Review of Systems: All systems reviewed & are unremarkable except as noted in HPI and below ( HPI and below) Constitutional: Constitutional: Denies chills and Denies fever(s) Exam Extrem: Left lower extremity: foot ( open area looks smaller, granulating, erythema almost gone) Objective Data Vital Signs Vital Signs: Vital Signs - 24 hr 06/28/20 10:00 06/28/20 12:00 06/28/20 14:46 Temperature 36.7 C Pulse Rate 60 65 67 Respiratory Rate 18 18 Blood Pressure 127/73 Pulse Oximetry 99 06/28/20 14:56 06/28/20 16:00 06/28/20 18:00 Temperature 36.5 C Pulse Rate 75 68 73 Respiratory Rate 18 18 Blood Pressure 128/65 Pulse Oximetry 96 06/28/20 19:40 06/28/20 20:00 06/28/20 20:04 Temperature 36.5 C Pulse Rate 90 89 88 Respiratory Rate 20 18 18 Blood Pressure 150/83 H 150/83 H Pulse Oximetry 94 97 97 06/28/20 20:13 06/28/20 21:37 06/28/20 22:00 Temperature Pulse Rate 93 107 H 72 Respiratory Rate 18 Blood Pressure Pulse Oximetry 06/29/20 00:00 06/29/20 01:39 06/29/20 01:47 Temperature 36.6 C Pulse Rate 50 L 75 76 Respiratory Rate 22 H 16 18 Blood Pressure 122/62 Pulse Oximetry 98 06/29/20 02:00 06/29/20 04:00 06/29/20 06:00 Temperature 36.6 C Pulse Rate 63 45 L 56 L Respiratory Rate 20 Blood Pressure 134/66 Pulse Oximetry 94 06/29/20 08:00 06/29/20 08:12 06/29/20 08:41 Temperature 36.3 C L Pulse Rate 59 L 76 70 Respiratory Rate 18 18 Blood Pressure 130/51 L Pulse Oximetry 99 Intake/Output Intake/Output: Intake & Output 06/26/20 06/27/20 06/28/20 06/29/20 23:59 23:59 23:59 23:59 Intake Total 450 1880 700 Output Total 1600 1100 750 Balance -1150 780 -50 Meds/Results Medications: Active Medications Generic Name Dose Route Start Last Admin Trade Name Freq PRN Reason Stop Dose Admin Albuterol 5 mg 06/27/20 20:00 06/29/20 08:09 Albuterol Sulf Neb 2.5mg/0.5ml INHALATION 5 mg Q6HRT KALPESH Administration Alprazolam 1 mg 06/27/20 17:22 06/28/20 21:35 Xanax PO 1 mg TID PRN Administration anxiety Chlordiazepoxide HCl 25 mg 06/27/20 17:03 06/28/20 01:49 Librium Po PO 25 mg Q6H PRN Administration Anxiety Dextrose 12.5 gm 06/27/20 17:05 Dextrose 50% Syringe IV PUSH PRN PRN Hypoglycemia Protocol Folic Acid 1 mg 06/28/20 09:00 06/29/20 08:39 Folic Acid PO 1 mg DAILY KALPESH Administration Gabapentin 100 mg 06/28/20 09:00 06/29/20 08:39 Neurontin PO 100 mg TID KALPESH Administration Glucagon 1 mg 06/27/20 17:05 Glucagon For Inj IM PRN PRN Hypoglycemia Protocol Glucose 15 gm 06/27/20 17:05 Glutose 15 PO PRN PRN Hypoglycemia Protocol Imipenem/Cilastatin Sodium 250 mg in 100 mls @ 300 mls/hr 06/27/20 18:00 06/29/20 06:30 Primaxin 250 Mg/D5w 100 Ml IVPB Infused Q6H
[2020-06-29 08:42] LABS: Glucose Point of Care 105 (65-105)
--- NOTE | 2020-06-29 11:29 | PM.PNCARD ---
Progress Note: A&P Assessment and Plan (1) Atrial fibrillation with slow ventricular response: Code(s): I48.91 - Unspecified atrial fibrillation Status: Acute Assessment and Plan: continue current dose of metoprolol. Start aspirin 81 mg p.o. daily. This is for stroke prophylaxis well as vascular disease. Not an anticoagulation candidate given his alcohol abuse and noncompliance history. Replace his potassium 40 mg p.o. x1. (2) Acute exacerbation of chronic obstructive pulmonary disease: Code(s): J44.1 - Chronic obstructive pulmonary disease with (acute) exacerbation Status: Acute (3) HTN (hypertension): Qualifiers: Hypertension type: essential hypertension Qualified Code(s): I10 - Essential (primary) hypertension Code(s): I10 - Essential (primary) hypertension Status: Chronic Assessment and Plan: At goal (4) Foot osteomyelitis, left: Qualifiers: Osteomyelitis type: other acute Qualified Code(s): M86.172 - Other acute osteomyelitis, left ankle and foot Code(s): M86.9 - Osteomyelitis, unspecified Status: Acute Assessment and Plan: per surgeons Subjective Date/time seen: 06/29/20 11:29 Interval history: 74-year-old admitted for osteomyelitis. also found to be in atrial fibrillation with slow ventricular response. Date of service 06/29/2020: He denies any chest pain, shortness of breath. Adamantly does not want to have a BKA Review of Systems Review of Systems: All systems reviewed & are unremarkable except as noted in HPI and below Constitutional: Constitutional: Denies fatigue, Denies headache(s) and Denies weakness Eyes: Eyes: Denies blurry vision ENT: Denies Normal hearing present, Denies headache(s) and Denies neck pain Cardiovascular: Cardiovascular: Denies chest pain and Reports dyspnea Respiratory: Respiratory: Reports dyspnea Gastrointestinal: Gastrointestinal: Denies abdominal pain and Denies bloating Genitourinary: Genitourinary: Denies dysuria Musculoskeletal: Musculoskeletal: Denies back pain and Denies neck pain Integumentary/Breasts: Skin/Breast: Denies dry skin Neurologic: Denies Normal hearing present, Denies confusion, Denies headache(s) and Denies weakness Psychiatric: Psychiatric: Denies anxiety and Denies confusion Endocrine: Endocrine: Denies fatigue Hematologic/Lymphatic: Hematologic/Lymphatic: Denies easy bleeding Allergic/Immunologic: Allergic/Immunologic: Denies GI upset with certain foods Exam Narrative: Exam Narrative: patient is awake pleasant Const: General: no acute distress; No confusion Orientation/consciousness: No confusion HENMT: General nose exam: Normal nares present Eyes: Sclera: sclerae normal Neck: Neck: supple and no JVD Chest: Other: no reproducible chest wall pain to palpation Resp: Auscultation: clear to auscultation bilaterally Cardio: Rate: regular rate Rhythm: abnormal rhythm irregularly irregular Skin: General skin exam: normal color Neuro: General: No confusion Cranial nerves: No Normal hearing present Cognition (Neuro): normal cognition Speech: normal speech Extrem: General: no edema Other: left foot is wrapped Psych: Mental Status: mental status grossly normal Objective Data Vital Signs Vital Signs: Vital Signs - 24 hr 06/28/20 12:00 06/28/20 14:46 06/28/20 14:56 Temperature 36.7 C Pulse Rate 65 67 75 Respiratory Rate 18 18 18 Blood Pressure 127/73 Pulse Oximetry 99 06/28/20 16:00 06/28/20 18:00 06/28/20 19:40 Temperature 36.5 C 36.5 C Pulse Rate 68 73 90 Respiratory Rate 18 20 Blood Pressure 128/65 150/83 H Pulse Oximetry 96 94 06/28/20 20:00 06/28/20 20:04 06/28/20 20:13 Temperature Pulse Rate 89 88 93 Respiratory Rate 18 18 18 Blood Pressure 150/83 H Pulse Oximetry 97 97 06/28/20 21:37 06/28/20 22:00 06/29/20 00:00 Temperature 36.6 C Pulse Rate 107 H 72 50 L
--- NOTE | 2020-06-29 12:19 | WPDPN ---
Objective Data Vital Signs Vital Signs: Vital Signs - 24 hr 06/28/20 14:46 06/28/20 14:56 06/28/20 16:00 Temperature 36.5 C Pulse Rate 67 75 68 Respiratory Rate 18 18 18 Blood Pressure 128/65 Pulse Oximetry 96 06/28/20 18:00 06/28/20 19:40 06/28/20 20:00 Temperature 36.5 C Pulse Rate 73 90 89 Respiratory Rate 20 18 Blood Pressure 150/83 H 150/83 H Pulse Oximetry 94 97 06/28/20 20:04 06/28/20 20:13 06/28/20 21:37 Temperature Pulse Rate 88 93 107 H Respiratory Rate 18 18 Blood Pressure Pulse Oximetry 97 06/28/20 22:00 06/29/20 00:00 06/29/20 01:39 Temperature 36.6 C Pulse Rate 72 50 L 75 Respiratory Rate 22 H 16 Blood Pressure 122/62 Pulse Oximetry 98 06/29/20 01:47 06/29/20 02:00 06/29/20 04:00 Temperature 36.6 C Pulse Rate 76 63 45 L Respiratory Rate 18 20 Blood Pressure 134/66 Pulse Oximetry 94 06/29/20 06:00 06/29/20 08:00 06/29/20 08:12 Temperature 36.3 C L Pulse Rate 56 L 56 L 76 Respiratory Rate 18 18 Blood Pressure 130/51 L Pulse Oximetry 99 06/29/20 08:41 06/29/20 10:00 06/29/20 12:00 Temperature 36.1 C L Pulse Rate 70 61 52 L Respiratory Rate 20 Blood Pressure 132/69 Pulse Oximetry 100 Intake/Output Intake/Output: Intake & Output 06/26/20 06/27/20 06/28/20 06/29/20 23:59 23:59 23:59 23:59 Intake Total 450 1880 1420 Output Total 1600 1100 1050 Balance -1150 780 370 Meds/Results Medications: Active Medications Generic Name Dose Route Start Last Admin Trade Name Freq PRN Reason Stop Dose Admin Albuterol 5 mg 06/27/20 20:00 06/29/20 08:09 Albuterol Sulf Neb 2.5mg/0.5ml INHALATION 5 mg Q6HRT KALPESH Administration Alprazolam 1 mg 06/27/20 17:22 06/28/20 21:35 Xanax PO 1 mg TID PRN Administration anxiety Aspirin 81 mg 06/30/20 09:00 Aspirin Ec PO QAM KALPESH Chlordiazepoxide HCl 25 mg 06/27/20 17:03 06/28/20 01:49 Librium Po PO 25 mg Q6H PRN Administration Anxiety Dextrose 12.5 gm 06/27/20 17:05 Dextrose 50% Syringe IV PUSH PRN PRN Hypoglycemia Protocol Folic Acid 1 mg 06/28/20 09:00 06/29/20 08:39 Folic Acid PO 1 mg DAILY KALPESH Administration Gabapentin 100 mg 06/28/20 09:00 06/29/20 08:39 Neurontin PO 100 mg TID KALPESH Administration Glucagon 1 mg 06/27/20 17:05 Glucagon For Inj IM PRN PRN Hypoglycemia Protocol Glucose 15 gm 06/27/20 17:05 Glutose 15 PO PRN PRN Hypoglycemia Protocol Imipenem/Cilastatin Sodium 250 mg in 100 mls @ 300 mls/hr 06/27/20 18:00 06/29/20 06:30 Primaxin 250 Mg/D5w 100 Ml IVPB Infused Q6HR KALPESH Infusion Dextrose 1,000 mls @ 100 mls/hr 06/27/20 17:05 Dextrose 5% 1,000 Ml IVPB PRN PRN Hypoglycemia Protocol Vancomycin HCl 1,250 mg in 250 mls @ 200 mls/hr 06/29/20 10:00 06/29/20 11:02 Vancomycin 1,250 Mg/D5w 250 Ml IVPB 200 mls/hr Q18H KALPESH Administration Insulin Aspart 2 - 5 units 06/28/20 08:00 06/29/20 08:32 Novolog SUB-Q Not Given TIDWM KALPESH Protocol Ipratropium Reading 0.5 mg 06/27/20 20:00 06/29/20 08:10 Atrovent Neb INHALATION 0.5 mg Q6HRT KALPESH Administration Metoprolol Tartrate 25 mg 06/28/20 21:00 06/29/20 08:41 Lopressor PO 25 mg Q12HR KALPESH Administration Pantoprazole Sodium 40 mg 06/28/20 09:00 06/29/20 08:39 Protonix PO 07/28/20 09:01 40 mg DAILY KALPESH Administration Prednisone 2.5 mg 06/28/20 09:00 06/29/20 08:39 Prednisone PO 2.5 mg DAILY KALPESH Administration Sertraline HCl 50 mg 06/28/20 09:00 06/29/20 08:39 Zoloft PO 50 mg DAILY KALPESH Administration Silver Nitrate 1 applic 06/28/20 09:00 06/29/20 08:40 Silvergel TOPICAL 1 applic DAILY KALPESH Administration Simvastatin 10 mg 06/28/20 09:00 06/29/20 08:39 Zocor PO 10 mg DAILY KALPESH Administration Tramadol HCl 50 mg 06/27/20 21:47 06/27/20 22:01 U
[2020-06-29 12:37] LABS: Glucose Point of Care 124 (65-105)
--- NOTE | 2020-06-29 12:42 | WPDINFPN2 ---
Progress Note: A&P Assessment and Plan (1) Chronic osteomyelitis of left foot: Code(s): M86.672 - Other chronic osteomyelitis, left ankle and foot Status: Acute Assessment and Plan: Chronic OM of L foot, multiple MTs REC Imipenem #3. CRP. Course of oral antibiotics anticipated once susceptibilities back. Subjective Date/time seen: 06/29/20 12:42 Objective Data Vital Signs Vital Signs: Vital Signs - 24 hr 06/28/20 14:46 06/28/20 14:56 06/28/20 16:00 Temperature 36.5 C Pulse Rate 67 75 68 Respiratory Rate 18 18 18 Blood Pressure 128/65 Pulse Oximetry 96 06/28/20 18:00 06/28/20 19:40 06/28/20 20:00 Temperature 36.5 C Pulse Rate 73 90 89 Respiratory Rate 20 18 Blood Pressure 150/83 H 150/83 H Pulse Oximetry 94 97 06/28/20 20:04 06/28/20 20:13 06/28/20 21:37 Temperature Pulse Rate 88 93 107 H Respiratory Rate 18 18 Blood Pressure Pulse Oximetry 97 06/28/20 22:00 06/29/20 00:00 06/29/20 01:39 Temperature 36.6 C Pulse Rate 72 50 L 75 Respiratory Rate 22 H 16 Blood Pressure 122/62 Pulse Oximetry 98 06/29/20 01:47 06/29/20 02:00 06/29/20 04:00 Temperature 36.6 C Pulse Rate 76 63 45 L Respiratory Rate 18 20 Blood Pressure 134/66 Pulse Oximetry 94 06/29/20 06:00 06/29/20 08:00 06/29/20 08:12 Temperature 36.3 C L Pulse Rate 56 L 56 L 76 Respiratory Rate 18 18 Blood Pressure 130/51 L Pulse Oximetry 99 06/29/20 08:41 06/29/20 10:00 06/29/20 12:00 Temperature 36.1 C L Pulse Rate 70 61 52 L Respiratory Rate 20 Blood Pressure 132/69 Pulse Oximetry 100 Intake/Output Intake/Output: Intake & Output 06/26/20 06/27/20 06/28/20 06/29/20 23:59 23:59 23:59 23:59 Intake Total 450 1880 1420 Output Total 1600 1100 1050 Balance -1150 780 370 Meds/Results Medications: Active Medications Generic Name Dose Route Start Last Admin Trade Name Freq PRN Reason Stop Dose Admin Albuterol 5 mg 06/27/20 20:00 06/29/20 08:09 Albuterol Sulf Neb 2.5mg/0.5ml INHALATION 5 mg Q6HRT KALPESH Administration Alprazolam 1 mg 06/27/20 17:22 06/28/20 21:35 Xanax PO 1 mg TID PRN Administration anxiety Aspirin 81 mg 06/30/20 09:00 Aspirin Ec PO QAM KALPESH Chlordiazepoxide HCl 25 mg 06/27/20 17:03 06/28/20 01:49 Librium Po PO 25 mg Q6H PRN Administration Anxiety Dextrose 12.5 gm 06/27/20 17:05 Dextrose 50% Syringe IV PUSH PRN PRN Hypoglycemia Protocol Folic Acid 1 mg 06/28/20 09:00 06/29/20 08:39 Folic Acid PO 1 mg DAILY KALPESH Administration Gabapentin 100 mg 06/28/20 09:00 06/29/20 08:39 Neurontin PO 100 mg TID KALPESH Administration Glucagon 1 mg 06/27/20 17:05 Glucagon For Inj IM PRN PRN Hypoglycemia Protocol Glucose 15 gm 06/27/20 17:05 Glutose 15 PO PRN PRN Hypoglycemia Protocol Dextrose 1,000 mls @ 100 mls/hr 06/27/20 17:05 Dextrose 5% 1,000 Ml IVPB PRN PRN Hypoglycemia Protocol Imipenem/Cilastatin Sodium 500 mg in 100 mls @ 300 mls/hr 06/29/20 12:45 Primaxin 500 Mg/D5w 100 Ml IVPB Q6H [facility] Insulin Aspart 2 - 5 units 06/28/20 08:00 06/29/20 08:32 Novolog SUB-Q Not Given TIDWM [facility] Protocol Ipratropium [place]cl[place] 0.5 mg 06/27/20 20:00 06/29/20 08:10 Atrovent Neb INHALATION 0.5 mg Q6HRT KALPESH Administration Metoprolol Tartrate 25 mg 06/28/20 21:00 06/29/20 08:41 Lopressor PO 25 mg Q12HR KALPESH Administration Pantoprazole Sodium 40 mg 06/28/20 09:00 06/29/20 08:39 Protonix PO 07/28/20 09:01 40 mg DAILY KALPESH Administration Prednisone 2.5 mg 06/28/20 09:00 06/29/20 08:39 Prednisone PO 2.5 mg DAILY KALPESH Administration Sertraline HCl 50 mg 06/28/20 09:00 06/29/20 08:39 Zoloft PO 50 mg DAILY KALPESH Administration Silver Nitrate 1 applic 06/28/20 09:00 06/29/20 08:40 Silvergel TOPICAL 1 applic
--- NOTE | 2020-06-29 13:27 | PM.IMPN ---
Progress Note: A&P Assessment and Plan (1) Foot osteomyelitis, left: Qualifiers: Osteomyelitis type: other acute Qualified Code(s): M86.172 - Other acute osteomyelitis, left ankle and foot Code(s): M86.9 - Osteomyelitis, unspecified Status: Acute Assessment and Plan: patient was started on vancomycin and Zosyn. blood cultures and foot cultures are pending. Surgery has been consulted. 06/29/20 13:27 patient is 74-year-old male with history of diabetes status post transmetatarsal amputation presented with redness swelling and on plain film showed osteomyelitis patient is seen by surgery team and suspect the patient will need amputation below the however patient is refusing to have the procedure, patient is being treated with imipenem and vancomycin for the osteomyelitis, on 06/28 patient will be seen by his Dr. Heaton who had previously treated the patient and recommended amputation below the knee similarly Dr. Chavira is also recommended, however patient does not want amputation below the knee and requesting antibiotic further treatment, patient is seen by Dr. carlton wound culture is growing staph aureus and Pseudomonas Dr. carlton has continued imipenem until sensitivity returns and further recommendation to follow. patient was also found to have atrial fibrillation with slow ventricular response seen by computer artist patient was taking metoprolol 50 mg b.i.d. which is reduced 25 mg b.i.d. patient's heart rate trending low, it will take few days to respond to low-dose of metoprolol, will continue to monitor, patient is somewhat confused but denies any fever or chills denies any chest pain shortness of breath palpitation (2) Atrial fibrillation with slow ventricular response: Code(s): I48.91 - Unspecified atrial fibrillation Status: Acute Assessment and Plan: his computer artist has been notified and it was suggested that we hold metoprolol for now and cut his dosage in half. Patient was given atropine in the emergency room. (3) HTN (hypertension): Qualifiers: Hypertension type: essential hypertension Qualified Code(s): I10 - Essential (primary) hypertension Code(s): I10 - Essential (primary) hypertension Status: Chronic Assessment and Plan: Patient's heart rate is low side held his hypertensive medication plus he has acute renal failure so his blood pressure medications are on hold at this time. (4) CHF (congestive heart failure): Qualifiers: Heart failure type: systolic Heart failure chronicity: chronic Qualified Code(s): I50.22 - Chronic systolic (congestive) heart failure Code(s): I50.9 - Heart failure, unspecified Status: Chronic Assessment and Plan: Metoprolol on hold at this time. Losartan on hold. (5) Alcoholism: Code(s): F10.20 - Alcohol dependence, uncomplicated Status: Chronic Assessment and Plan: Continue with gabapentin. Will check to see while she is continue with p.r.n. Librium. Continue with folic acid. (6) COPD mixed type: Code(s): J44.9 - Chronic obstructive pulmonary disease, unspecified Status: Chronic Assessment and Plan: Continue with inhaler. (7) Diabetes mellitus: Qualifiers: Diabetes mellitus type: type 2 Diabetes mellitus stripe matcher insulin use: unspecified fdc insulin use status Diabetes mellitus complication status: with hyperglycemia Qualified Code(s): E11.65 - Type 2 diabetes mellitus with hyperglycemia Code(s): E11.9 - Type 2 diabetes mellitus without complications Status: Chronic Assessment and Plan: Accu-Cheks AC and HS check A1c. (8) ARF (acute renal failure): Code(s): N17.9 - Acute kidney failure, unspecified Status: Acute Assessment and Plan: Hold arb (9) HLD (hyperlipidemia): Code(s): E78.5 - Hyperlipidemia, unspecified Status: Acute Assessment and
[2020-06-29] MEDS: POTASSIUM CHLORIDE 20 MEQ TABLET 40 MEQ PO (13:33)
[2020-06-29 16:36] LABS: Glucose Point of Care 123 (65-105)
[2020-06-29 19:40] LABS: Glucose Point of Care 171 (65-105)
--- NOTE | 2020-06-29 20:16 | PC.NURSE ---
06/29/20:2005: PATIENT TRANSFERRED TO 2ND MED SURG. BASSAM MILLER GIVEN REPORT. UPON PACKING UP BELONGINGS FOR PATIENT. PATIENT GOT HOSTILE ABOUT US GOING THROUGH THE BEDSIDE TABLE AND SAID THAT WAS HIS PERSONAL BELONGINGS. HE TOOK OUT A BOX OF SLEEP AIDES (BENADRYL), AND A SMALL POCKET KNIFE ABOUT 2 TO 3 INCHES. HE HIDE THEM IN HIS BELONGINGS. BASSAM MILLER ON 2ND FLOOR WAS MADE AWARE OF THIS. CHARGE NURSE WLILIAM WAS MADE AWARE OF THIS. WAS ABLE TO GET SLEEP AIDES FROM PATIENT WITHOUT PATIENT KNOWLEDGE AND GIVEN TO BASSAM MILLER TO PUT ASIDE FOR THE PATIENT.
[2020-06-29] MEDS: ALPRAZolam 0.5 MG TABLET 1 MG PO (20:35)
[2020-06-29 21:07] LABS: Glucose Point of Care 119 (65-105)
--- NOTE | 2020-06-29 21:27 | PC.NURSE ---
Pt received from IMU per W/C, oriented to room and surroundings. Call light in reach.
[2020-06-30] VITALS (15 sets, daily range): BP systolic 134–171; BP diastolic 69–82; PULSE 48–75; RESP 16–18; TEMP 36.4–36.5; O2SAT 95–98
[2020-06-30] MEDS: ALBUTEROL SULFATE NEB 2.5 MG/0.5 ML INH 5 MG INHALATION ×4 (01:28→21:04)
[2020-06-30] MEDS: IPRATROPIUM BR 0.02% INH SOLN 0.5 MG/2.5 ML VIAL INHALATION ×4 (01:28→21:04)
[2020-06-30 05:50] LABS: Hematocrit 38.8 % (42.0-52.0); Hemoglobin 11.7 g/dL (14.0-18.0); Mean Corpuscular HGB Conc 30.2 g/dl (32-36); Mean Corpuscular Hemoglobin 23.4 pg (26-34); Mean Corpuscular Volume 77.8 fl (80-100); Mean Platelet Volume 9.3 fl (7.4-10.4); Platelet Count Result 235 k/mm3 (150-375); Red Blood Count 4.99 M/mm3 (4.6-6.20); Red Cell Distribution Width 15.3 % (11.5-14.5); White Blood Count 8.4 K/mm3 (4.5-10.0)
[2020-06-30 06:03] LABS: Anion Gap 7 mmol/L (8-16); Blood Urea Nitrogen 18 mg/dL (9-20); Calcium 8.6 mg/dL (8.4-10.2); Carbon Dioxide 27 mmol/L (22-30); Chloride 101 mmol/L (98-107); Estimated CRCL calculation 70 ml/min; Estimated Glomerular Filt Rate > 60; Glucose 105 mg/dL (75-110); Potassium 4.8 mmol/L (3.4-5.0); Sodium 135 mmol/L (137-145)
[2020-06-30 06:19] LABS: CRP 3.3 mg/dL (<1.0)
--- NOTE | 2020-06-30 06:27 | CONS_ITS ---
DATE OF CONSULTATION: 06/29/2020 REASON FOR CONSULTATION: Osteomyelitis, left foot. HISTORY OF PRESENT ILLNESS: The patient is an 84-year-old male who was here in December and had Staph aureus bacteremia from left foot sores. He underwent transmetatarsal amputation and received extended IV antibiotics both here and as an outpatient. Has treatment for the same. I do not follow him in the office. Since his surgery, unfortunately he has had persistent open wound. He was seen in the office on the day of admission and directed here due to poor appearance of the wound. He was admitted on and has been on imipenem and vancomycin. Consultation requested. He denies fever, chills, or sweats, recent foot trauma, foot pain, leg pain, recent surgery otherwise, nausea, or vomiting. He has not required any further surgical intervention since arrival. He does have peripheral neuropathy, hence very poor sensation in the feet, but does experience a pressure sensation when he bears weight. Typically, he uses a wheelchair or walker at home. ALLERGIES: NIACIN. MEDICATIONS: Present medication list reviewed. No immunosuppressants. No antibiotics upon admission. HABITS: Alcohol to excess, ex-smoker, and past marijuana use. PAST MEDICAL HISTORY: Previous TMA also on the right side, tonsillectomy, right hip replacement, hernia repair, cataract extractions, heart failure, type 2 diabetes mellitus, sacral fracture, hyperlipidemia, IBS, hypertension, GERD, COPD, previous stroke, and AF. REVIEW OF SYSTEMS: Declining eyesight, hyperglycemia, generalized weakness, dry skin, prostatism. A 14-point review otherwise negative. SOCIAL HISTORY: He has a [id number] who is his daughter. 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 . No family at the bedside. Seven children. He lives alone. FAMILY HISTORY: Not pertinent to his present illness. PHYSICAL EXAMINATION: GENERAL: This is a chronically ill-appearing male, in no acute distress. Appears actual age. He was hypothermic shortly after arrival, resolved, and no fever. VITAL SIGNS: 52, 20, 132/69, 100% on room air. SKIN: Some ecchymosis. No jaundice. No rashes. Warm and dry. NODES: No cervical adenopathy. EENT: The pupils are equal, round. There is no icterus. He has arcus senilis. The oral mucosa is well hydrated. No thrush. NECK: No meningismus, thyromegaly, mass. LUNGS: Diminished breath sounds, otherwise clear to auscultation and percussion. CARDIAC: Bradycardic, regular. No murmurs or gallops. Unable to palpate dorsalis pedis pulses. Radial pulses are 2+. Popliteal pulses 2+. ABDOMEN: Soft, nontender. No organomegaly. No masses. EXTREMITIES: Bilateral TMA. On the right, his foot is well healed. On the left, he has an open TMA wound. No purulence. No exposed bone. Minimal erythema. LABORATORY DATA: Blood cultures, no growth after 2 days incubation. Wound culture has Staph aureus and Pseudomonas aeruginosa. A Pseudomonas was also isolated on january 24 when he was postop. This is susceptible to quinolones, ceftazidime but not to gentamicin. White count was 10.5 and 17.0 yesterday, now 9.0, hemoglobin 10.9, platelets of 215. Differential not repeated. Earlier differential was normal. His chemistries are normal other than a glucose of 119, sodium 134. Liver function tests normal. Initial CRP 1.3. RADIOLOGY: Foot x-ray: Left side, shows osteolysis of the residual metatarsals 1st and 2nd. Chest x-ray: Patchy airspace opacities. Echocardiogram: Shows a multiple abnormalities. No infection suggested. ASSESSMENT: 1. Chronic osteomyelitis of the left foot, with mild exacerbation represented by mild leukocytosis and elevated CRP. The patient is a poor historian and is thus di
[2020-06-30 08:18] LABS: Glucose Point of Care 110 (65-105)
[2020-06-30] MEDS: ASPIRIN 81 MG ENTERIC TABLET PO (09:14)
[2020-06-30] MEDS: SIMVASTATIN 10 MG TABLET PO (09:14)
[2020-06-30] MEDS: PANTOPRAZOLE 40 MG TABLET PO (09:14)
[2020-06-30] MEDS: GABAPENTIN 100 MG CAPSULE PO ×3 (09:14→16:37)
[2020-06-30] MEDS: METOPROLOL TARTRATE 25 MG TABLET PO ×2 (09:14→20:09)
[2020-06-30] MEDS: FOLIC ACID 1 MG TABLET PO (09:14)
[2020-06-30] MEDS: predniSONE 2.5 MG TABLET PO (09:14)
[2020-06-30] MEDS: SILVERGEL (ELTA) 45 ML 1 APPLIC TOPICAL (09:14)
[2020-06-30] MEDS: SERTRALINE HCL 50 MG TABLET PO (09:14)
[2020-06-30 11:30] LABS: Glucose Point of Care 104 (65-105)
--- NOTE | 2020-06-30 14:00 | PM.PNCARD ---
Progress Note: A&P Assessment and Plan (1) Atrial fibrillation with slow ventricular response: Code(s): I48.91 - Unspecified atrial fibrillation Status: Acute Assessment and Plan: continue current dose of metoprolol. will increase aspirin to 325 mg daily. This is for stroke prophylaxis well as vascular disease. Not an anticoagulation candidate given his alcohol abuse and noncompliance history. (2) Acute exacerbation of chronic obstructive pulmonary disease: Code(s): J44.1 - Chronic obstructive pulmonary disease with (acute) exacerbation Status: Acute (3) HTN (hypertension): Qualifiers: Hypertension type: essential hypertension Qualified Code(s): I10 - Essential (primary) hypertension Code(s): I10 - Essential (primary) hypertension Status: Chronic Assessment and Plan: At goal (4) Foot osteomyelitis, left: Qualifiers: Osteomyelitis type: other acute Qualified Code(s): M86.172 - Other acute osteomyelitis, left ankle and foot Code(s): M86.9 - Osteomyelitis, unspecified Status: Acute Assessment and Plan: per surgeons Subjective Date/time seen: 06/30/20 14:00 Interval history: 74-year-old admitted for osteomyelitis. also found to be in atrial fibrillation with slow ventricular response. Date of service 06/30/2020: want to go home, NO CP, or SOB Review of Systems Review of Systems: All systems reviewed & are unremarkable except as noted in HPI and below Constitutional: Constitutional: Denies fatigue, Denies headache(s) and Denies weakness Eyes: Eyes: Denies blurry vision ENT: Denies Normal hearing present, Denies headache(s) and Denies neck pain Cardiovascular: Cardiovascular: Denies chest pain and Reports dyspnea Respiratory: Respiratory: Reports dyspnea Gastrointestinal: Gastrointestinal: Denies abdominal pain and Denies bloating Genitourinary: Genitourinary: Denies dysuria Musculoskeletal: Musculoskeletal: Denies back pain and Denies neck pain Integumentary/Breasts: Skin/Breast: Denies dry skin Neurologic: Denies Normal hearing present, Denies confusion, Denies headache(s) and Denies weakness Psychiatric: Psychiatric: Denies anxiety and Denies confusion Endocrine: Endocrine: Denies fatigue Hematologic/Lymphatic: Hematologic/Lymphatic: Denies easy bleeding Allergic/Immunologic: Allergic/Immunologic: Denies GI upset with certain foods Exam Narrative: Exam Narrative: patient is awake pleasant Const: General: no acute distress; No confusion Orientation/consciousness: No confusion HENMT: General nose exam: Normal nares present Eyes: Sclera: sclerae normal Neck: Neck: supple and no JVD Chest: Other: no reproducible chest wall pain to palpation Resp: Auscultation: clear to auscultation bilaterally Cardio: Rate: regular rate Rhythm: abnormal rhythm irregularly irregular Skin: General skin exam: normal color Neuro: General: No confusion Cranial nerves: No Normal hearing present Cognition (Neuro): normal cognition Speech: normal speech Extrem: General: no edema Other: left foot is wrapped Psych: Mental Status: mental status grossly normal Objective Data Vital Signs Vital Signs: Vital Signs - 24 hr 06/29/20 14:11 06/29/20 14:17 06/29/20 15:57 Temperature 36.6 C Pulse Rate 74 74 64 Respiratory Rate 18 18 18 Blood Pressure 142/66 H Pulse Oximetry 98 06/29/20 18:42 06/29/20 20:27 06/29/20 20:30 Temperature 36.6 C Pulse Rate 67 98 71 Respiratory Rate 18 20 Blood Pressure 147/78 H Pulse Oximetry 98 99 06/29/20 20:41 06/29/20 20:43 06/29/20 20:46 Temperature Pulse Rate 68 70 Respiratory Rate 18 18 Blood Pressure Pulse Oximetry 98 06/29/20 21:16 06/30/20 01:28 06/30/20 01:33 Temperature 36.3 C L Pulse Rate 71 48 L 54 L Respiratory Rate 20 18 18 Blood Pressure 138/82 Pulse Oximetry 99 06/30/20 05:06 06/30/20 07:3
--- NOTE | 2020-06-30 14:02 | WPDINFPN2 ---
Progress Note: A&P Assessment and Plan (1) Chronic osteomyelitis of left foot: Code(s): M86.672 - Other chronic osteomyelitis, left ankle and foot Status: Acute Assessment and Plan: 1. Chronic OM of L foot, multiple MTs, CRP slightly higher. No results of susceptibilities yet 2. CNSS bacteremia, contaminant vs L foot open wound as source. I was not notified of + culture REC Imipenem #4. Vanc #1. Short course IV therapy, another 2-3 days. Course of oral antibiotics anticipated thereafter. Subjective Date/time seen: 06/30/20 14:02 Interval history: no foot pain, no chills Exam Narrative: Exam Narrative: afebrile Const: General: no acute distress Eyes: General: appearance normal, both eyes and all related structures Resp: Effort & Inspection: normal respiratory effort Auscultation: clear to auscultation bilaterally Cardio: Rate: regular rate Rhythm: regular rhythm Heart sounds: no murmurs Skin: General skin exam: no rashes or lesions noted Extrem: Right lower extremity: edema Objective Data Vital Signs Vital Signs: Vital Signs - 24 hr 06/29/20 14:11 06/29/20 14:17 06/29/20 15:57 Temperature 36.6 C Pulse Rate 74 74 64 Respiratory Rate 18 18 18 Blood Pressure 142/66 H Pulse Oximetry 98 06/29/20 18:42 06/29/20 20:27 06/29/20 20:30 Temperature 36.6 C Pulse Rate 67 98 71 Respiratory Rate 18 20 Blood Pressure 147/78 H Pulse Oximetry 98 99 06/29/20 20:41 06/29/20 20:43 06/29/20 20:46 Temperature Pulse Rate 68 70 Respiratory Rate 18 18 Blood Pressure Pulse Oximetry 98 06/29/20 21:16 06/30/20 01:28 06/30/20 01:33 Temperature 36.3 C L Pulse Rate 71 48 L 54 L Respiratory Rate 20 18 18 Blood Pressure 138/82 Pulse Oximetry 99 06/30/20 05:06 06/30/20 07:30 06/30/20 07:31 Temperature 36.5 C Pulse Rate 64 51 L 55 L Respiratory Rate 16 18 18 Blood Pressure 144/69 H Pulse Oximetry 98 95 06/30/20 07:38 06/30/20 09:14 06/30/20 13:25 Temperature Pulse Rate 51 L 68 55 L Respiratory Rate 18 18 Blood Pressure Pulse Oximetry 06/30/20 13:32 Temperature Pulse Rate 55 L Respiratory Rate 18 Blood Pressure Pulse Oximetry Intake/Output Intake/Output: Intake & Output 06/27/20 06/28/20 06/29/20 06/30/20 23:59 23:59 23:59 23:59 Intake Total 450 1880 3070 1800 Output Total 1600 1100 1350 1810 Balance -5772 938 2157 -10 Meds/Results Medications: Active Medications Generic Name Dose Route Start Last Admin Trade Name Freq PRN Reason Stop Dose Admin Albuterol 5 mg 06/27/20 20:00 06/30/20 13:23 Albuterol Sulf Neb 2.5mg/0.5ml INHALATION 5 mg Q6HRT KALPESH Administration Alprazolam 1 mg 06/27/20 17:22 06/29/20 20:35 Xanax PO 1 mg TID PRN Administration anxiety Aspirin 81 mg 06/30/20 09:00 06/30/20 09:14 Aspirin Ec PO 81 mg QAM KALPESH Administration Chlordiazepoxide HCl 25 mg 06/27/20 17:03 06/28/20 01:49 Librium Po PO 25 mg Q6H PRN Administration Anxiety Dextrose 12.5 gm 06/27/20 17:05 Dextrose 50% Syringe IV PUSH PRN PRN Hypoglycemia Protocol Folic Acid 1 mg 06/28/20 09:00 06/30/20 09:14 Folic Acid PO 1 mg DAILY KALPESH Administration Gabapentin 100 mg 06/28/20 09:00 06/30/20 12:01 Neurontin PO 100 mg TID KALPESH Administration Glucagon 1 mg 06/27/20 17:05 Glucagon For Inj IM PRN PRN Hypoglycemia Protocol Glucose 15 gm 06/27/20 17:05 Glutose 15 PO PRN PRN Hypoglycemia Protocol Dextrose 1,000 mls @ 100 mls/hr 06/27/20 17:05 Dextrose 5% 1,000 Ml IVPB PRN PRN Hypoglycemia Protocol Imipenem/Cilastatin Sodium 500 mg in 100 mls @ 300 mls/hr 06/29/20 12:00 06/30/20 12:32 Primaxin 500 Mg/D5w 100 Ml IVPB Infused Q6H KALPESH Infusion Insulin Aspart 2 - 5 units 06/28/20 08:00 06/30/20 11:58 Novolog SUB-Q Not Given [facility] Protocol Ipratro
--- NOTE | 2020-06-30 15:47 | PM.IMPN ---
Progress Note: A&P Assessment and Plan (1) Foot osteomyelitis, left: Qualifiers: Osteomyelitis type: other acute Qualified Code(s): M86.172 - Other acute osteomyelitis, left ankle and foot Code(s): M86.9 - Osteomyelitis, unspecified Status: Acute Assessment and Plan: patient was started on vancomycin and Zosyn. blood cultures and foot cultures are pending. Surgery has been consulted. 06/30/20 15:47 patient is 74-year-old male with history of diabetes status post transmetatarsal amputation presented with redness swelling and on plain film showed osteomyelitis patient is seen by surgery team and suspect the patient will need amputation below the however patient is refusing to have the procedure, patient is being treated with imipenem and vancomycin for the osteomyelitis, on 06/28 patient will be seen by his Dr. Heaton who had previously treated the patient and recommended amputation below the knee similarly Dr. Chavira is also recommended, however patient does not want amputation below the knee and requesting antibiotic further treatment, patient is seen by Dr. longo wound culture is growing staph aureus and Pseudomonas Dr. longo has continued imipenem until sensitivity returns and further recommendation to follow. patient was also found to have atrial fibrillation with slow ventricular response seen by office technology instructor patient was taking metoprolol 50 mg b.i.d. which is reduced 25 mg b.i.d. patient's heart rate trending up and stable was seen by office technology instructor today Recommended to continue present managed and had full-dose aspirin to provide stroke, is patient is alcohol and noncompliant with anticoagulation, again today patient was seen by Dr. Longo wound culture sensitive still pending and further recommendation to follow for IV antibiotics regimen, patient is clinically stable insisting to go home. (2) Atrial fibrillation with slow ventricular response: Code(s): I48.91 - Unspecified atrial fibrillation Status: Acute Assessment and Plan: his office technology instructor has been notified and it was suggested that we hold metoprolol for now and cut his dosage in half. Patient was given atropine in the emergency room. (3) HTN (hypertension): Qualifiers: Hypertension type: essential hypertension Qualified Code(s): I10 - Essential (primary) hypertension Code(s): I10 - Essential (primary) hypertension Status: Chronic Assessment and Plan: Patient's heart rate is low side held his hypertensive medication plus he has acute renal failure so his blood pressure medications are on hold at this time. (4) CHF (congestive heart failure): Qualifiers: Heart failure type: systolic Heart failure chronicity: chronic Qualified Code(s): I50.22 - Chronic systolic (congestive) heart failure Code(s): I50.9 - Heart failure, unspecified Status: Chronic Assessment and Plan: Metoprolol on hold at this time. Losartan on hold. (5) Alcoholism: Code(s): F10.20 - Alcohol dependence, uncomplicated Status: Chronic Assessment and Plan: Continue with gabapentin. Will check to see while she is continue with p.r.n. Librium. Continue with folic acid. (6) COPD mixed type: Code(s): J44.9 - Chronic obstructive pulmonary disease, unspecified Status: Chronic Assessment and Plan: Continue with inhaler. (7) Diabetes mellitus: Qualifiers: Diabetes mellitus type: type 2 Diabetes mellitus buttermaker insulin use: unspecified penitentiary insulin use status Diabetes mellitus complication status: with hyperglycemia Qualified Code(s): E11.65 - Type 2 diabetes mellitus with hyperglycemia Code(s): E11.9 - Type 2 diabetes mellitus without complications Status: Chronic Assessment and Plan: Accu-Cheks AC and HS check A1c. (8) ARF (acute renal failure): Code(s): N17.9 - Acute kidney failure, unspecified
[2020-06-30 16:36] LABS: Glucose Point of Care 270 (65-105)
[2020-06-30] MEDS: INSULIN ASPART (*BKC) 100 UNITS/ML SUB-Q (16:37)
[2020-06-30] MEDS: ALPRAZolam 0.5 MG TABLET 1 MG PO (20:16)
[2020-06-30 20:31] LABS: Glucose Point of Care 119 (65-105)
[2020-06-30] MEDS: chlordiazePOXIDE 5 MG CAPSULE 25 MG PO (20:56)
[2020-07-01] VITALS (9 sets, daily range): BP systolic 143–158; BP diastolic 79–88; PULSE 55–70; RESP 16–18; TEMP 36.2–36.7; O2SAT 96–97
[2020-07-01] MEDS: IPRATROPIUM BR 0.02% INH SOLN 0.5 MG/2.5 ML VIAL INHALATION ×3 (02:37→15:20)
[2020-07-01] MEDS: ALBUTEROL SULFATE NEB 2.5 MG/0.5 ML INH 5 MG INHALATION ×3 (02:37→15:20)
[2020-07-01 05:32] LABS: Mean Corpuscular HGB Conc 31.7 g/dl (32-36); Mean Corpuscular Hemoglobin 24.2 pg (26-34); Mean Corpuscular Volume 76.4 fl (80-100); Mean Platelet Volume 9.2 fl (7.4-10.4); Platelet Count Result 259 k/mm3 (150-375); Red Blood Count 5.37 M/mm3 (4.6-6.20); Red Cell Distribution Width 15.4 % (11.5-14.5); White Blood Count 8.7 K/mm3 (4.5-10.0)
[2020-07-01 05:58] LABS: Anion Gap 8 mmol/L (8-16); Blood Urea Nitrogen 20 mg/dL (9-20); Carbon Dioxide 24 mmol/L (22-30); Chloride 101 mmol/L (98-107); Estimated CRCL calculation 70 ml/min; Estimated Glomerular Filt Rate > 60; Glucose 118 mg/dL (75-110); Potassium 4.5 mmol/L (3.4-5.0); Sodium 133 mmol/L (137-145)
[2020-07-01] MEDS: PANTOPRAZOLE 40 MG TABLET PO (08:11)
[2020-07-01] MEDS: FOLIC ACID 1 MG TABLET PO (08:11)
[2020-07-01] MEDS: GABAPENTIN 100 MG CAPSULE PO ×2 (08:11→12:00)
[2020-07-01] MEDS: METOPROLOL TARTRATE 25 MG TABLET PO (08:11)
[2020-07-01] MEDS: SIMVASTATIN 10 MG TABLET PO (08:11)
[2020-07-01] MEDS: SERTRALINE HCL 50 MG TABLET PO (08:11)
[2020-07-01] MEDS: predniSONE 2.5 MG TABLET PO (08:11)
[2020-07-01] MEDS: ASPIRIN 325 MG ENTERIC TABLET PO (08:11)
[2020-07-01] MEDS: SILVERGEL (ELTA) 45 ML 1 APPLIC TOPICAL (08:13)
[2020-07-01 08:54] LABS: Glucose Point of Care 115 (65-105)
[2020-07-01 11:29] LABS: Glucose Point of Care 131 (65-105)
--- NOTE | 2020-07-01 11:48 | PM.PNCARD ---
Progress Note: A&P Assessment and Plan (1) Atrial fibrillation with slow ventricular response: Code(s): I48.91 - Unspecified atrial fibrillation Status: Acute Assessment and Plan: continue current dose of metoprolol. continue aspirin 325 mg daily. This is for stroke prophylaxis well as vascular disease. Not an anticoagulation candidate given his alcohol abuse and noncompliance history. (2) Acute exacerbation of chronic obstructive pulmonary disease: Code(s): J44.1 - Chronic obstructive pulmonary disease with (acute) exacerbation Status: Acute (3) HTN (hypertension): Qualifiers: Hypertension type: essential hypertension Qualified Code(s): I10 - Essential (primary) hypertension Code(s): I10 - Essential (primary) hypertension Status: Chronic Assessment and Plan: At goal (4) Foot osteomyelitis, left: Qualifiers: Osteomyelitis type: other acute Qualified Code(s): M86.172 - Other acute osteomyelitis, left ankle and foot Code(s): M86.9 - Osteomyelitis, unspecified Status: Acute Assessment and Plan: per surgeons Subjective Date/time seen: 07/01/20 11:48 Interval history: 74-year-old admitted for osteomyelitis. also found to be in atrial fibrillation with slow ventricular response. Date of service 07/01/2020: want to go home, NO new complaints Review of Systems Review of Systems: All systems reviewed & are unremarkable except as noted in HPI and below Constitutional: Constitutional: Denies fatigue, Denies headache(s) and Denies weakness Eyes: Eyes: Denies blurry vision ENT: Denies Normal hearing present, Denies headache(s) and Denies neck pain Cardiovascular: Cardiovascular: Denies chest pain and Reports dyspnea Respiratory: Respiratory: Reports dyspnea Gastrointestinal: Gastrointestinal: Denies abdominal pain and Denies bloating Genitourinary: Genitourinary: Denies dysuria Musculoskeletal: Musculoskeletal: Denies back pain and Denies neck pain Integumentary/Breasts: Skin/Breast: Denies dry skin Neurologic: Denies Normal hearing present, Denies confusion, Denies headache(s) and Denies weakness Psychiatric: Psychiatric: Denies anxiety and Denies confusion Endocrine: Endocrine: Denies fatigue Hematologic/Lymphatic: Hematologic/Lymphatic: Denies easy bleeding Allergic/Immunologic: Allergic/Immunologic: Denies GI upset with certain foods Exam Narrative: Exam Narrative: patient is awake pleasant Const: General: no acute distress; No confusion Orientation/consciousness: No confusion HENMT: General nose exam: Normal nares present Eyes: Sclera: sclerae normal Neck: Neck: supple and no JVD Chest: Other: no reproducible chest wall pain to palpation Resp: Auscultation: clear to auscultation bilaterally Cardio: Rate: regular rate Rhythm: abnormal rhythm irregularly irregular Skin: General skin exam: normal color Neuro: General: No confusion Cranial nerves: No Normal hearing present Cognition (Neuro): normal cognition Speech: normal speech Extrem: General: no edema Other: left foot is wrapped Psych: Mental Status: mental status grossly normal Objective Data Vital Signs Vital Signs: Vital Signs - 24 hr 06/30/20 13:25 06/30/20 13:32 06/30/20 14:00 Temperature 36.4 C Pulse Rate 55 L 55 L 75 Respiratory Rate 18 18 16 Blood Pressure 134/82 Pulse Oximetry 98 06/30/20 20:09 06/30/20 20:55 06/30/20 21:05 Temperature Pulse Rate 72 53 L 53 L Respiratory Rate 18 18 Blood Pressure Pulse Oximetry 97 06/30/20 21:06 06/30/20 22:00 07/01/20 02:30 Temperature 36.4 C L Pulse Rate 53 L 69 55 L Respiratory Rate 18 16 18 Blood Pressure 171/78 H Pulse Oximetry 97 07/01/20 02:38 07/01/20 05:36 07/01/20 08:11 Temperature 36.2 C L Pulse Rate 55 L 68 70 Respiratory Rate 18 16 Blood Pressure 143/88 H Pulse Oximetry 97 07/01/20 10:25 090
--- NOTE | 2020-07-01 13:54 | PM.DS ---
DS: Admitting Diagnosis Admitting Diagnosis Admitting Diagnosis: A fib w slow ventricular response/Osteomyelitis l DS: Discharge Diagnosis Discharge Diagnosis (1) Foot osteomyelitis, left: Qualifiers: Osteomyelitis type: other acute Qualified Code(s): M86.172 - Other acute osteomyelitis, left ankle and foot Code(s): M86.9 - Osteomyelitis, unspecified Status: Acute Assessment and Plan: patient was started on vancomycin and Zosyn. blood cultures and foot cultures are pending. Surgery has been consulted. 06/30/20 15:47 patient is 74-year-old male with history of diabetes status post transmetatarsal amputation presented with redness swelling and on plain film showed osteomyelitis patient is seen by surgery team and suspect the patient will need amputation below the however patient is refusing to have the procedure, patient is being treated with imipenem and vancomycin for the osteomyelitis, on 06/28 patient will be seen by his Dr. Heaton who had previously treated the patient and recommended amputation below the knee similarly Dr. Chavira is also recommended, however patient does not want amputation below the knee and requesting antibiotic further treatment, patient is seen by Dr. longo wound culture is growing staph aureus and Pseudomonas Dr. longo has continued imipenem until sensitivity returns and further recommendation to follow. patient was also found to have atrial fibrillation with slow ventricular response seen by engagement quality consultant patient was taking metoprolol 50 mg b.i.d. which is reduced 25 mg b.i.d. patient's heart rate trending up and stable was seen by engagement quality consultant today Recommended to continue present managed and had full-dose aspirin to provide stroke, is patient is alcohol and noncompliant with anticoagulation, again today patient was seen by Dr. Longo wound culture sensitive still pending and further recommendation to follow for IV antibiotics regimen, patient is clinically stable insisting to go home. (2) Atrial fibrillation with slow ventricular response: Code(s): I48.91 - Unspecified atrial fibrillation Status: Acute Assessment and Plan: his engagement quality consultant has been notified and it was suggested that we hold metoprolol for now and cut his dosage in half. Patient was given atropine in the emergency room. (3) HTN (hypertension): Qualifiers: Hypertension type: essential hypertension Qualified Code(s): I10 - Essential (primary) hypertension Code(s): I10 - Essential (primary) hypertension Status: Chronic Assessment and Plan: Patient's heart rate is low side held his hypertensive medication plus he has acute renal failure so his blood pressure medications are on hold at this time. (4) CHF (congestive heart failure): Qualifiers: Heart failure type: systolic Heart failure chronicity: chronic Qualified Code(s): I50.22 - Chronic systolic (congestive) heart failure Code(s): I50.9 - Heart failure, unspecified Status: Chronic Assessment and Plan: Metoprolol on hold at this time. Losartan on hold. (5) Alcoholism: Code(s): F10.20 - Alcohol dependence, uncomplicated Status: Chronic Assessment and Plan: Continue with gabapentin. Will check to see while she is continue with p.r.n. Librium. Continue with folic acid. (6) COPD mixed type: Code(s): J44.9 - Chronic obstructive pulmonary disease, unspecified Status: Chronic Assessment and Plan: Continue with inhaler. (7) Diabetes mellitus: Qualifiers: Diabetes mellitus type: type 2 Diabetes mellitus long term care administrator insulin use: unspecified senior care insulin use status Diabetes mellitus complication status: with hyperglycemia Qualified Code(s): E11.65 - Type 2 diabetes mellitus with hyperglycemia Code(s): E11.9 - Type 2 diabetes mellitus without complications Status: Chronic Assessment and Plan:
== END 2020-07-01 16:30 | disposition home health service (06) | DRG 638 ==
LOC: ANHED 15:37 → ANHIMU 16:46 → ANH2MED 06-30 14:35 → ANHIMU 07-06 13:38
PROVIDERS: Internal Medicine Cardiovascular Disease; Internal Medicine Infectious Disease; Nurse Practitioner; Admitting Provider Internal Medicine; Emergency Provider Emergency Medicine; PCP Emergency Medicine; Visit Provider Family Medicine
DX: E11.69 Type 2 diabetes mellitus with other specified complication (principal); M86.172 Other acute osteomyelitis, left ankle and foot; I50.42 Chronic combined systolic (congestive) and diastolic (congestive) heart failure; R78.81 Bacteremia; N17.9 Acute kidney failure, unspecified; I48.91 Unspecified atrial fibrillation; E11.65 Type 2 diabetes mellitus with hyperglycemia; J44.9 Chronic obstructive pulmonary disease, unspecified; E78.5 Hyperlipidemia, unspecified; F10.20 Alcohol dependence, uncomplicated; F17.210 Nicotine dependence, cigarettes, uncomplicated
CPT/HCPCS: 36415; 71045; 73630; 80048; 80053; 82728; 83036; 83605; 83615; 84436; 84443; 85025; 85027; 85652; 86140; 87040; 87070; 87077; 87186; 87205; 93005; 94640; 96365; 96366; 96367; 96375; 99285; A9270; C8929; G0378; J0461; J0743; J1815; J1940; J3370; Q9957

== ENCOUNTER 2020-10-24 13:19 | Inpatient (IN) | payer OTHER, SELFPAY ==
[2020-10-24] VITALS (25 sets, daily range): BP systolic 112–153; BP diastolic 41–100; PULSE 54–88; RESP 12–20; TEMP 36.2–37.2; O2SAT 88–100
--- NOTE | ~2020-10-24 | XR_ITS ---
EXAMINATION: XR chest 1V portable EXAM DATE: 10/24/2020 14:36 INDICATION: Shortness of breath. TECHNIQUE: Portable AP frontal chest x-ray was obtained. Comparison is made to prior examination from 06/28/2020. FINDINGS: Linear left midlung zone scarring. The lungs are otherwise clear. There are no pleural eff usions. Cardiac silhouette is prominent but magnified on this AP technique. There is no pneumothor ax suspected. Mild thoracic scoliosis. Resolution of previously seen bilateral airspace disease. IMPRESSION: No acute cardiopulmonary findings. Reviewed, dictated and finalized at location B. MOTIVE FIRER
--- NOTE | ~2020-10-24 | US_ITS ---
EXAMINATION: US arterial ankle brachial ind DATE: 10/25/2020 11:18 INDICATION: Left foot wound. TECHNIQUE: Segmental pressures and plethysmographic and Doppler waveforms of the brachial and lower e xtremity arteries were obtained. COMPARISON: None. FINDINGS: Right and left brachial artery pressures of 128 mm Hg and 112 mm Hg, respectively, are concordant (no rmal difference <= 30 mmHg). Cardiac arrhythmias present. The right ankle-brachial index (TRIPP) is 1.27 (normal >= 0.9-1.0). Arterial Doppler waveforms are trip hasic with brisk systolic upstrokes at both the right posterior tibial and dorsalis pedis arteries. The left TRIPP is 1.35. Arterial Doppler waveforms are triphasic with brisk systolic upstrokes at both the left posterior tibial and dorsalis pedis arteries. IMPRESSION: 1. No significant arterial occlusive disease to either lower limb with normal bilateral ABIs. 2. Cardiac arrhythmia is present. Correlate with EKG . Reviewed, dictated and finalized at location A. CREW LEADER IMPRESSION: 1. No significant arterial occlusive disease to either lower limb with normal b ilateral ABIs. 2. Cardiac arrhythmia is present. Correlate with EKG .
--- NOTE | ~2020-10-24 | XR_ITS ---
EXAMINATION: XR foot LT min 3V DATE: 10/24/2020 14:36 INDICATION: Left foot infection TECHNIQUE: Dorsoplantar, two oblique and lateral views of the left foot were obtained. COMPARISON: 06/27/2020 FINDINGS: Again seen are transmetatarsal amputations of the first-fifth toes. There is prominent osteolysis of the remaining first metatarsal extending to the metaphyseal region with secondary pathologic fracture consistent with advanced osteomyelitis. The portion of the bone appears to project beyond the superf icial margins of the soft tissues. The margins of the distal aspect of the second and third metatarsa ls appear to have changed in configuration but with still relatively sharp margins suggesting interva l revision of the osteotomies. Alternatively this could represent progression of additional osteomyel itis. The osteotomy margins at the fourth and fifth metatarsals appear unchanged with smooth corticat ed margins. No other lesions concerning for ostomy myelitis. No significant interval change in mild o steoarthritis at multiple joints in the midfoot. No fracture. IMPRESSION: 1. Prior first and fifth transmetatarsal amputations with advanced residual/recurrent osteomyelitis a nd secondary pathologic fracture involving the majority of the remaining first metatarsal. 2. Interval change in contour with loss of bone with sharp margins at the distal aspect of the second and third metatarsals suggesting interval revision osteotomies although recurrent osteomyelitis coul d not be excluded. Correlate for surgical history of interval debridement. Reviewed, dictated and finalized at location A. NT RUBBER IMPRESSION: 1. Prior first and fifth transmetatarsal amputations with advanced residual/rec urrent osteomyelitis and secondary pathologic fracture involving the majority o f the remaining first metatarsal. 2. Interval change in contour with loss of bone with sharp margins at the dista l aspect of the second and third metatarsals suggesting interval revision osteo tomies although recurrent osteomyelitis could not be excluded. Correlate for milligan rgical history of interval debridement.
--- NOTE | 2020-10-24 14:39 | ED.GENADULT ---
HPI - General Adult General Chief complaint: Wound/Laceration Stated complaint: foot wound infection Time Seen by Provider: 10/24/20 13:34 Source: patient History of Present Illness HPI narrative: Patient is a 74 y/o male complaining of left foot pain starting today. Related Data Home Medications Medication Instructions Recorded Confirmed prednisone 2.5 mg tablet 2.5 mg PO DAILY 09/30/19 06/27/20 multivitamin [Daily Multi-Vitamin] 1 tablet PO DAILY 12/29/19 06/27/20 aspirin [Aspirin Childrens] 81 mg PO DAILY 01/22/20 06/27/20 Allergies Allergy/AdvReac Type Severity Reaction Status Date / Time niacin Allergy Unknown Unknown Verified 06/27/20 12:06 [facility], [facility] Past Medical History Medical History (Updated 10/07/20 @ 11:06 by Master Colbert MD) Afib Alcoholism 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 Amputation of right forefoot Amputation of toe of right foot all on the right Anxiety Asthma CHF (congestive heart failure) Diastolic COPD (chronic obstructive pulmonary disease) COPD mixed type Cough CVA (cerebral vascular accident) Depression Diabetes mellitus Diabetic foot infection (Unknown) Dyspnea on exertion Emphysema of lung GERD (gastroesophageal reflux disease) GERD without esophagitis HLD (hyperlipidemia) HTN (hypertension) Hypercholesteremia Hypoxemia IBS (irritable bowel syndrome) Ichthyosis Mixed hyperlipidemia Neuropathy Osteomyelitis Peripheral neuropathy Pneumonia Sacrum and coccyx fracture Smoker Type 2 diabetes mellitus without complications Unspecified systolic (congestive) heart failure Surgical History Surgical History H/O bilateral cataract extraction H/O colonoscopy H/O hernia repair History of right hip replacement Hx of amputation 1st, 2nd, 3rd, 4th, and 5th toes of left foot as well as right foot. Hx of tonsillectomy Family History Family History Mother Patient's mother is , Onset Age: 31 Father Suicide Social History Social History Social History: Patient is a poor historian. Most of history is from that collected in the ED when the patient's daughter was available for information. Last admission his daughter Adwoa palmer with his power deputy attorney general. The patient was a full code at that time. It was noted that he drinks most days of the week and consumes beer, whiskey of unknown quantities. He denies any drug use. He is . 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 The patient tells me that he had 7 children. Smoking packs per day: 1 Smoking cigarettes per day: 20.0 Years smoked: 58 Smoking pack-years: 58.00 Smoking status: Former smoker Tobacco type: cigarettes Second hand tobacco smoke exposure: Yes Smoking end date: 12/28/18 Alcohol intake: current Drinks per week: 21 Substance use: never Substance use type: former substance user and marijuana Additional living arrangements comments: Per daughter, patient has a caregiver that is with him for a few hours each day Saturday through Saturday. He refuses rehab or assisted living. 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 An rhqv-shk-icwa shag truck driver Gender identity (if verbalized by the patient): Male Spiritual care concerns: No Agree to blood products: Yes Course Vital Signs Vital signs: Vital Signs Temperature 36.9 C 10/24/20 13:34 Pulse Rate 54 L 10/24/20 13:34 Respiratory Rate 20 10/24/20 13:34 Blood Pressure 149/53 H 10/24/20 13:34 Pulse Oximetry 97 10/24/20 13:34 Temperature 36.9 C 10/24/20 13:34 Pulse Rate 84 10/24/20 14:17 Respiratory Rate 14 10/24/20 14:17 Blood Pressure 153/79 H 10/24/20 14:17 Pulse Oximetry 100 10/24/20 14:17 Medical Decision
--- NOTE | 2020-10-24 14:41 | ED.GENADULT ---
HPI - General Adult General Chief complaint: Wound/Laceration Stated complaint: foot wound infection Time Seen by Provider: 10/24/20 13:34 Source: patient History of Present Illness HPI narrative: Patient is a 74 y/o male complaining of left foot pain starting today. He describes his pain as sharp and rates it as 7/10. There is no pain radiation. His daughter states that visiting nurse was checking on him today and was concerned about foot infection sent patient to ED. Patient also states that he has chronic SOB and cough due to COPD. He is on home O2. He denies any fever or chest pain. Related Data Home Medications Medication Instructions Recorded Confirmed prednisone 2.5 mg tablet 2.5 mg PO DAILY 09/30/19 06/27/20 multivitamin [Daily Multi-Vitamin] 1 tablet PO DAILY 12/29/19 06/27/20 Allergies Allergy/AdvReac Type Severity Reaction Status Date / Time niacin Allergy Unknown Unknown Verified 06/27/20 12:06 Review of Systems Constitutional: Constitutional: Denies chills, Denies fever(s), Denies headache(s) and Denies weakness Eyes: Eyes: Denies blurry vision ENT: Denies headache(s) and Denies neck pain Cardiovascular: Cardiovascular: Denies chest pain and Reports dyspnea Respiratory: Respiratory: Reports cough and Reports dyspnea Gastrointestinal: Gastrointestinal: Denies abdominal pain, Denies diarrhea, Denies nausea and Denies vomiting Genitourinary: Genitourinary: Denies hematuria and Denies dysuria Musculoskeletal: Musculoskeletal: Reports as per HPI, Denies back pain, Denies neck pain and Reports other (left foot pain) Integumentary/Breasts: Skin/Breast: Reports wounds (left foot wound at amputation site) Neurologic: Denies headache(s) and Denies weakness [facility] Past Medical History Medical History (Updated 10/24/20 @ 18:23 by Cha Tobias MD) Afib Alcoholism 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 Amputation of right forefoot Amputation of toe of right foot all on the right Anxiety Asthma CHF (congestive heart failure) Diastolic COPD (chronic obstructive pulmonary disease) COPD mixed type Cough CVA (cerebral vascular accident) Depression Diabetes mellitus Diabetic foot infection (Unknown) Dyspnea on exertion Emphysema of lung GERD (gastroesophageal reflux disease) GERD without esophagitis HLD (hyperlipidemia) HTN (hypertension) Hypercholesteremia Hypoxemia IBS (irritable bowel syndrome) Ichthyosis Mixed hyperlipidemia Neuropathy Osteomyelitis Peripheral neuropathy Pneumonia Sacrum and coccyx fracture Smoker Type 2 diabetes mellitus without complications Unspecified systolic (congestive) heart failure Surgical History Surgical History H/O bilateral cataract extraction H/O colonoscopy H/O hernia repair History of right hip replacement Hx of amputation 1st, 2nd, 3rd, 4th, and 5th toes of left foot as well as right foot. Hx of tonsillectomy Family History Family History Mother Patient's mother is , Onset Age: 31 Father Suicide Social History Social History Social History: Patient is a poor historian. Most of history is from that collected in the ED when the patient's daughter was available for information. Last admission his daughter Adwoa palmer with his power county attorney. The patient was a full code at that time. It was noted that he drinks most days of the week and consumes beer, whiskey of unknown quantities. He denies any drug use. He is . 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 The patient tells me that he had 7 children. Smoking packs per day: 1 Smoking cigarettes per day: 20.0 Years smoked: 58 Smoking pack-years: 58.00 Smoking status: Former smoker Tobacco type: cigarettes Second hand tobacco smoke exposure: Yes Smoking end
[2020-10-24 14:49] LABS: Basophils Percent Auto 0.1 % (0.2-1.2); Eosinophils Absolute Auto 0.1 K/mm3 (0-0.3); Eosinophils Percent Auto 0.3 % (0-4.4); Hematocrit 39.8 % (42.0-52.0); Hemoglobin 12.7 g/dL (14.0-18.0); Immature Granulocyte Absolute 0.09 K/mm3 (0.00-0.031); Immature Granulocyte Percent A 0.6 % (0-0.5); Lymphocytes Absolute Auto 0.78 K/mm3 (0.9-3.2); Lymphocytes Percent Auto 4.9 % (18.3-44.2); Mean Corpuscular HGB Conc 31.9 g/dl (32-36); Mean Corpuscular Hemoglobin 26.4 pg (26-34); Mean Corpuscular Volume 82.7 fl (80-100); Mean Platelet Volume 8.6 fl (7.4-10.4); Monocytes Absolute Auto 1.5 K/mm3 (0.1-0.6); Monocytes Percent Auto 9.6 % (2.6-8.5); Neutrophils Absolute Auto 13.3 K/mm3 (1.3-6.7); Neutrophils Percent Auto 84.5 % (45.5-73.1); Platelet Count Result 260 k/mm3 (150-375); Red Blood Count 4.81 M/mm3 (4.6-6.20); Red Cell Distribution Width 15.2 % (11.5-14.5); White Blood Count 15.8 K/mm3 (4.5-10.0)
[2020-10-24 15:01] LABS: Alanine Aminotransferase 15 U/L (4-50); Albumin Level 3.8 g/dL (3.5-5.1); Alkaline Phosphatase 174 U/L (38-126); Anion Gap 8 mmol/L (8-16); Aspartate Amino Transferase 40 U/L (17-59); Bilirubin,Total 0.6 mg/dL (0.2-1.3); Blood Urea Nitrogen 25 mg/dL (9-20); Carbon Dioxide 29 mmol/L (22-30); Chloride 94 mmol/L (98-107); Estimated CRCL calculation 63 ml/min; Estimated Glomerular Filt Rate > 60; Glucose 146 mg/dL (75-110); Potassium 3.9 mmol/L (3.4-5.0); Sodium 131 mmol/L (137-145)
[2020-10-24 15:02] LABS: Add Urine Microscopic? YES; Appearance Urine Clear (Clear); Bilirubin Urine Negative (Negative); Blood Urine Negative (Negative); Color Urine Amber (Yellow); Glucose Urine UA Negative (Negative); Ketones Urine Trace mg/dL (Negative); Leukocyte Esterase Ur Negative LEU/UL (Negative); Mucus Urine Rare /lpf; Nitrate Urine Negative (Negative); Protein Urine 3+ mg/dL (Negative); Specific Grav Ur 1.027 (1.001-1.035); Urobilinogen Urine Negative mg/dL (<2.0)
[2020-10-24 15:21] LABS: Erythrocyte Sedimentation Rate 59 mm/hr (0-20)
[2020-10-24 15:36] LABS: CRP 18.4 mg/dL (<1.0)
[2020-10-24 18:07] LABS: Glucose Point of Care 141 (65-105)
--- NOTE | 2020-10-24 18:20 | ADMGEN ---
This patient, Ludin Mcguire, was admitted to Medical Room 246-01. Patient/family oriented to hospital policies and general routines including ID bracelet, bed and alarms, visiting hours, pain management, procedures, bathroom and other care routines, personal items, smoking policy, room service/diet, and visiting hours. Information on how to activate the Rapid Response Team has been discussed. Patient/Family are encouraged to report perceived risks to care and to ask questions if they do not understand what they are told or what they should do.
--- NOTE | 2020-10-24 20:00 | PM.IMHP ---
H&P: HPI History of Present Illness Date/Time: 10/24/20 20:00 Chief Complaint: Left foot pain. Narrative: Ludin Mcguire is a 74-year-old male with multiple medical problems including history of alcohol abuse, atrial fibrillation, chronic respiratory failure, diabetes, hypertension, and several other comorbidities who presented to the emergency department earlier today from home with complaints of left foot pain. He is not the best historian and is somewhat confused; I have not been able to get a hold of his daughter to see if this has been an issue however I do not see anything similar documented in his chart. Over the past couple of days he has developed pain in the left foot near a previous forefoot amputation site. In fact a home health nurse was visiting today, saw the wound, was concerned that it was likely infected and sent him to the emergency department. The pain is described as sharp in nature without significant radiation. He gives no aggravating or alleviating factors. He has no associated symptoms and specifically denies fever, chills, sweats, nausea, and vomiting. Review of Systems Review of Systems: Narrative: Twelve systems are reviewed with pertinent positives and negatives as per HPI. No fever, chills, or sweats. He denies recent cold and flu symptoms. Chronic cough which is unchanged. Denies sick contacts and exposure to those positive for COVID-19. He has chronic shortness of breath and is on home O2. This is unchanged. No chest pain or palpitations. He denies nausea, vomiting, and diarrhea. No dysuria. No blurry vision, polydipsia, or polyuria. He denies focal weakness and paresthesias. No auditory visual changes. Except as documented, all other systems were reviewed and are negative. [facility] Past Medical History Medical History (Updated 10/25/20 @ 00:37 by Kierra Mckeon PA-C) Alcohol abuse Anxiety Asthma Benign prostatic hyperplasia Cerebrovascular accident Chronic anemia Chronic obstructive pulmonary disease Chronic respiratory failure with hypoxia, on home O2 therapy Depression Diabetic peripheral neuropathy Diastolic congestive heart failure Former smoker Gastroesophageal reflux disease Hearing loss Hypertension Ichthyosis vulgaris Irritable bowel syndrome Mixed hyperlipidemia Osteoarthritis Osteomyelitis History of osteomyelitis of both feet requiring multiple amputations. Persistent atrial fibrillation Not on long-term anticoagulation. Takes aspirin 325 mg daily. Sacrum and coccyx fracture Type 2 diabetes mellitus Diet-controlled. Hemoglobin A1c was 6.0 in June 2020. Surgical History Surgical History (Updated 10/25/20 @ 00:24 by Kierra Mckeon PA-C) History of bilateral cataract extraction History of incision and drainage Right hip abscess. History of tonsillectomy History of total right hip arthroplasty (~2002) History of transmetatarsal amputation of left foot (~2019) History of transmetatarsal amputation of right foot (~2016) History of ventral hernia repair (~2006) Family History Family History Mother Patient's mother is , Onset Age: 31 Father Suicide Social History Social History (Updated 10/25/20 @ 00:28 by Kierra Mckeon PA-C) Social History: The patient lives in [place] in an apartment. Cell Stripper [employer] comes for a few hours a day Saturday through Saturday. He gets Meals on wheels. Has continued to refuse assisted living and the like. He tells me he has been staying with his daughter. He is . 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 Smoked a pack of cigarettes per day for 58 years and quit in December of 2018. He has a history of alcohol abuse although he says he is not drinking much anymore. No illicit substance use, he used marijuana previously. He designates his daughter, Adwoa Xiong, as his surrogate decision maker and he wishes to be a f
[2020-10-24 20:52] LABS: Glucose Point of Care 189 (65-105)
[2020-10-25] VITALS (13 sets, daily range): BP systolic 117–150; BP diastolic 60–81; PULSE 58–85; RESP 18–28; TEMP 36.3–36.8; O2SAT 92–100
[2020-10-25] MEDS: SODIUM CHLORIDE 0.9% IV 1,000 ML 100 ML IV CONT (01:04)
[2020-10-25 05:09] LABS: Hemoglobin 11.1 g/dL (14.0-18.0); Mean Corpuscular HGB Conc 31.7 g/dl (32-36); Mean Corpuscular Hemoglobin 25.9 pg (26-34); Mean Corpuscular Volume 81.8 fl (80-100); Mean Platelet Volume 8.7 fl (7.4-10.4); Platelet Count Result 235 k/mm3 (150-375); Red Blood Count 4.28 M/mm3 (4.6-6.20); Red Cell Distribution Width 15.1 % (11.5-14.5); White Blood Count 11.2 K/mm3 (4.5-10.0)
[2020-10-25 05:19] LABS: Hemoglobin A1C 5.8 % (<5.7)
[2020-10-25 05:29] LABS: Alanine Aminotransferase 13 U/L (4-50); Albumin Level 3.3 g/dL (3.5-5.1); Alkaline Phosphatase 146 U/L (38-126); Anion Gap 6 mmol/L (8-16); Aspartate Amino Transferase 30 U/L (17-59); Bilirubin,Total 0.6 mg/dL (0.2-1.3); Blood Urea Nitrogen 22 mg/dL (9-20); Calcium 8.5 mg/dL (8.4-10.2); Carbon Dioxide 29 mmol/L (22-30); Chloride 96 mmol/L (98-107); Estimated CRCL calculation 61 ml/min; Estimated Glomerular Filt Rate > 60; Glucose 137 mg/dL (75-110); Magnesium 1.7 mg/dL (1.6-2.3); Potassium 3.3 mmol/L (3.4-5.0); Sodium 131 mmol/L (137-145)
[2020-10-25] MEDS: POTASSIUM CHLORIDE 20 MEQ TABLET 40 MEQ PO (09:09)
[2020-10-25] MEDS: ASPIRIN 325 MG ENTERIC TABLET BY MOUTH (09:10)
[2020-10-25] MEDS: FOLIC ACID 1 MG TABLET BY MOUTH (09:10)
[2020-10-25] MEDS: METOPROLOL TARTRATE 25 MG TABLET BY MOUTH ×2 (09:10→21:18)
[2020-10-25] MEDS: SIMVASTATIN 10 MG TABLET PO (09:10)
[2020-10-25] MEDS: predniSONE 2.5 MG TABLET PO (09:10)
[2020-10-25] MEDS: MULTIVITAMINS THERAPEUTIC TAB (*BKC) 1 TABLET PO (09:10)
[2020-10-25] MEDS: DOCUSATE SODIUM 100 MG CAPSULE PO (09:10)
[2020-10-25] MEDS: SERTRALINE HCL 50 MG TABLET PO (09:11)
[2020-10-25] MEDS: SILVERGEL (ELTA) 45 ML 1 APPLIC TOPICAL (09:11)
[2020-10-25] MEDS: GABAPENTIN 100 MG CAPSULE PO ×3 (09:11→16:37)
[2020-10-25] MEDS: PANTOPRAZOLE 40 MG TABLET PO ×2 (09:11→16:37)
[2020-10-25] MEDS: ALBUTEROL SULFATE NEB 2.5 MG/3 ML INH INHALATION ×3 (09:15→21:38)
[2020-10-25 09:44] LABS: Glucose Point of Care 126 (65-105)
--- NOTE | 2020-10-25 13:30 | ECG_ITS ---
Measurements Intervals [place] Rate: 70 P: OK: 0 QRS: 11 QRSD: 90 T: 87 QT: 372 QTc: 404 Interpretive Statements ATRIAL FIBRILLATION ANTEROSEPTAL INFARCT, AGE INDETERMINATE BORDERLINE ST-T WAVE ABNORMALITY- DIFFUSE LEADS ABNORMAL ECG Electronically Signed On 10-25-2020 15:53:51 TRASH COLLECTOR SUPERVISOR by Yahir Lopez D.O.
--- NOTE | 2020-10-25 13:33 | PM.IMPN ---
Progress Note: A&P Assessment and Plan (1) Osteomyelitis of left foot: Qualifiers: Osteomyelitis type: unspecified type Qualified Code(s): M86.9 - Osteomyelitis, unspecified Code(s): M86.9 - Osteomyelitis, unspecified Status: Acute Assessment and Plan: 10/25/20 13:33 patient is 74-year-old male with history of alcohol abuse, atrial fibrillation, chronic respiratory failure, diabetes, diabetes wound ulcer on right foot status post amputation of the right forefoot presented emergency depart pain, open sores on left foot along the previous forefoot amputation, there is open wound and some induration and erythema minimal drainage, there is no red streak, to further evaluate patient had a TRIPP which is essentially normal suggesting patient does not have peripheral vascular disease, patient is started on vancomycin and imipenem for suspected osteomyelitis, will follow-up on wound and blood culture further recommendation to follow, patient will be seen by plastic surgeon and further recommendation to follow. Patient is a poor historian unable to provide detailed review of symptom (2) Alcohol abuse: Code(s): F10.10 - Alcohol abuse, uncomplicated Status: Acute Assessment and Plan: Patient clinically stable will monitor with CIWA protocol (3) Type 2 diabetes mellitus: Code(s): E11.9 - Type 2 diabetes mellitus without complications Status: Inactive Assessment and Plan: Will continue home regimen and monitor (4) Persistent atrial fibrillation: Code(s): I48.19 - Other persistent atrial fibrillation Status: Acute Assessment and Plan: Rate is controlled patient is not systematically anticoagulant on aspirin full dose (5) Chronic respiratory failure with hypoxia, on home O2 therapy: Code(s): J96.11 - Chronic respiratory failure with hypoxia; Z99.81 - Dependence on supplemental oxygen Status: Inactive Assessment and Plan: Clinically stable on 2 L nasal cannula (6) Chronic obstructive pulmonary disease: Code(s): J44.9 - Chronic obstructive pulmonary disease, unspecified Status: Inactive Assessment and Plan: Clinically stable will continue updraft (7) Chronic anemia: Code(s): D64.9 - Anemia, unspecified Status: Inactive Assessment and Plan: Most likely secondary to alcohol abuse (8) Diastolic congestive heart failure: Code(s): I50.30 - Unspecified diastolic (congestive) heart failure Status: Inactive Assessment and Plan: Patient appears euvolemic will continue home regimen (9) Gastroesophageal reflux disease: Code(s): K21.9 - Gastro-esophageal reflux disease without esophagitis Status: Inactive Assessment and Plan: Will continue PPI (10) Hypertension: Code(s): I10 - Essential (primary) hypertension Status: Inactive Assessment and Plan: Will continue home regimen and monitor Additional Plan The patient has been admitted to the hospitalist service with Dr. Heaton (plastic surgery) consulting for further treatment of osteomyelitis of the left foot at prior transmetatarsal amputation site. He has been started on imipenem and vancomycin per antibiotic stewardship recommendations. I have encouraged him to elevate his extremity as often as possible. His diabetes is diet controlled with a recent hemoglobin A1c of 6%. Given history of alcohol abuse and withdrawal symptoms with prior hospitalizations, will initiate CIWA protocol and monitor closely. He has been started on thiamine supplementation. No acute issues with regards to his COPD or CHF. His blood pressures were reviewed and they are well controlled. He is clinically compensated with regards to his CHF. AFib is rate controlled. He is not on long-term anticoagulation, but takes aspirin 325 mg daily. Home medications will be reviewed and resumed as appropriate. Subjective Date/time seen: 09/28
[2020-10-25] MEDS: traMADol HCL (*CRX) 50 MG TABLET PO (14:02)
[2020-10-25 14:56] LABS: Glucose Point of Care 242 (65-105)
[2020-10-25] MEDS: INSULIN ASPART (*BKC) 100 UNITS/ML SUB-Q (15:10)
[2020-10-25] MEDS: ALPRAZolam (*CRX) 0.5 MG TABLET 1 MG PO (17:20)
[2020-10-25 19:29] LABS: Glucose Point of Care 179 (65-105)
[2020-10-25 21:25] LABS: Glucose Point of Care 146 (65-105)
[2020-10-26] VITALS (14 sets, daily range): BP systolic 111–150; BP diastolic 54–79; PULSE 56–78; RESP 16–20; TEMP 36.3–36.4; O2SAT 95–100
[2020-10-26 05:56] LABS: Hematocrit 33.9 % (42.0-52.0); Hemoglobin 10.4 g/dL (14.0-18.0); Mean Corpuscular HGB Conc 30.7 g/dl (32-36); Mean Corpuscular Hemoglobin 25.9 pg (26-34); Mean Corpuscular Volume 84.3 fl (80-100); Mean Platelet Volume 9.2 fl (7.4-10.4); Platelet Count Result 225 k/mm3 (150-375); Red Blood Count 4.02 M/mm3 (4.6-6.20); White Blood Count 8.7 K/mm3 (4.5-10.0)
[2020-10-26 06:15] LABS: Alanine Aminotransferase 15 U/L (4-50); Albumin Level 2.9 g/dL (3.5-5.1); Alkaline Phosphatase 113 U/L (38-126); Anion Gap 6 mmol/L (8-16); Aspartate Amino Transferase 33 U/L (17-59); Bilirubin,Total 0.3 mg/dL (0.2-1.3); Blood Urea Nitrogen 21 mg/dL (9-20); Carbon Dioxide 28 mmol/L (22-30); Chloride 98 mmol/L (98-107); Estimated CRCL calculation 61 ml/min; Estimated Glomerular Filt Rate > 60; Glucose 124 mg/dL (75-110); Magnesium 1.6 mg/dL (1.6-2.3); Potassium 3.8 mmol/L (3.4-5.0); Sodium 132 mmol/L (137-145)
[2020-10-26 07:27] LABS: Glucose Point of Care 130 (65-105)
[2020-10-26] MEDS: SIMVASTATIN 10 MG TABLET PO (07:54)
[2020-10-26] MEDS: MULTIVITAMINS THERAPEUTIC TAB (*BKC) 1 TABLET PO (07:54)
[2020-10-26] MEDS: SILVERGEL (ELTA) 45 ML 1 APPLIC TOPICAL (07:54)
[2020-10-26] MEDS: DOCUSATE SODIUM 100 MG CAPSULE PO (07:54)
[2020-10-26] MEDS: SERTRALINE HCL 50 MG TABLET PO (07:54)
[2020-10-26] MEDS: METOPROLOL TARTRATE 25 MG TABLET BY MOUTH ×2 (07:54→20:38)
[2020-10-26] MEDS: GABAPENTIN 100 MG CAPSULE PO ×3 (07:54→17:29)
[2020-10-26] MEDS: FOLIC ACID 1 MG TABLET BY MOUTH (07:55)
[2020-10-26] MEDS: PANTOPRAZOLE 40 MG TABLET PO ×2 (07:55→17:29)
[2020-10-26] MEDS: LACTIC ACID 12% LOTION 225 BTL 1 APPLIC TOPICAL (07:55)
[2020-10-26] MEDS: predniSONE 2.5 MG TABLET PO (07:55)
[2020-10-26] MEDS: ASPIRIN 325 MG ENTERIC TABLET BY MOUTH (07:55)
[2020-10-26] MEDS: ALBUTEROL SULFATE NEB 2.5 MG/3 ML INH INHALATION ×2 (08:26→14:35)
[2020-10-26] MEDS: MAGNESIUM OXIDE 400 MG TABLET PO (10:14)
[2020-10-26 11:38] LABS: Glucose Point of Care 185 (65-105)
--- NOTE | 2020-10-26 14:08 | PM.IMPN ---
Progress Note: A&P Assessment and Plan (1) Osteomyelitis of left foot: Qualifiers: Osteomyelitis type: unspecified type Qualified Code(s): M86.9 - Osteomyelitis, unspecified Code(s): M86.9 - Osteomyelitis, unspecified Status: Acute Assessment and Plan: 10/26/20 14:08 patient is 74-year-old male with history of alcohol abuse, atrial fibrillation, chronic respiratory failure, diabetes, diabetes wound ulcer on right foot status post amputation of the right forefoot presented emergency depart pain, open sores on left foot along the previous forefoot amputation, there is open wound and some induration and erythema minimal drainage, there is no red streak, to further evaluate patient had a TRIPP which is essentially normal suggesting patient does not have peripheral vascular disease, wound culture is still no no growth, blood culture is growing MRSA, patient was started on vancomycin and imipenem for suspected osteomyelitis, will consult Dr. carlton for further recommendation, patient will be seen by plastic surgeon and further recommendation to follow. Patient is a poor historian unable to provide detailed review of symptom (2) Alcohol abuse: Code(s): F10.10 - Alcohol abuse, uncomplicated Status: Acute Assessment and Plan: Patient clinically stable will monitor with CIWA protocol (3) Persistent atrial fibrillation: Code(s): I48.19 - Other persistent atrial fibrillation Status: Acute Assessment and Plan: Rate is controlled patient is not systematically anticoagulant on aspirin full dose Subjective Date/time seen: 10/26/20 14:08 patient is 74-year-old male with history of alcohol abuse, atrial fibrillation, chronic respiratory failure, diabetes, diabetes wound ulcer on right foot status post amputation of the right forefoot presented emergency depart pain, open sores on left foot along the previous forefoot amputation, there is open wound and some induration and erythema minimal drainage, there is no red streak, to further evaluate patient had a TRIPP which is essentially normal suggesting patient does not have peripheral vascular disease, wound culture is still no no growth, blood culture is growing MRSA, patient was started on vancomycin and imipenem for suspected osteomyelitis, will consult Dr. carlton for further recommendation, patient will be seen by plastic surgeon and further recommendation to follow. Patient is a poor historian unable to provide detailed review of symptom Review of Systems Review of Systems: ROS unobtainable: Yes unobtainable due to medical condition Exam Narrative: Exam Narrative: Appears chronically ill older than his age Patient is comfortable, NAD HEENT: eyes are clear and none icteric LUNGS: Bilateral fair entry with rhonchi HEART: Irregularly irregular ABD: BS+, Soft and nontender MS:Rt foot forefoot amputation, healing left foot forefoot amputation open wound, erythema, some induration no drainage no red streak Lower extremities: no edema SKIN: nonjaundiced Neuro: grossly intact. Objective Data Vital Signs Vital Signs: Vital Signs - 24 hr 10/25/20 15:05 10/25/20 15:09 10/25/20 20:00 Temperature Pulse Rate 70 74 74 Respiratory Rate 18 18 18 Blood Pressure 150/79 H Pulse Oximetry 97 10/25/20 21:18 10/25/20 21:40 10/25/20 21:44 Temperature Pulse Rate 70 66 58 L Respiratory Rate 20 20 Blood Pressure Pulse Oximetry 92 10/25/20 22:00 10/26/20 00:00 10/26/20 01:30 Temperature 97.8 F 97.3 F L Pulse Rate 74 61 Respiratory Rate 18 16 Blood Pressure 150/79 H 150/79 H 120/79 Pulse Oximetry 97 100 10/26/20 04:00 10/26/20 05:49 10/26/20 07:54 Temperature 97.6 F Pulse Rate 76 78 Respiratory Rate 16 Blood Pressure 120/79 116/54 L Pulse Oximetry 99 10/26/20 08:27 10/26/20 08:36 Temperature Pulse Rate 60 60 Respiratory Rate 20 20 Blood Pressure Pulse Oximetry 96 Intake/O
[2020-10-26 17:38] LABS: Glucose Point of Care 236 (65-105)
[2020-10-26] MEDS: INSULIN ASPART (*BKC) 100 UNITS/ML SUB-Q (18:17)
--- NOTE | 2020-10-26 19:50 | WPDCN ---
Assessment and Plan Additional Plan Sepsis due to osteomyelitis seems likely. Labs have improved on antibiotics and supportive care. Radiographs of the foot reveal worsening condition from the osteomyelitis. Pt not likely able to consent to BKA. He has not been willing to consent in the past. Continues in a state of encephalopathy. I will follow his hospitalization. Agree with current wound care. HPI Data of Consult Date/Time: 10/26/20 19:50 Requesting Physician: Ayo Foy MD Primary Care Provider: Master Colbert MD Consult Narrative Narrative: Ludin Mcguire is a 74 year old male who lives a home and usually does some of his own foot wound care. He gets about in a wheel chair. Home care providers come to his house to assist with wound care and other things. He is diabetic, a former heavy smoker and has a history alcohol abuse. See H&P for long list of other comorbidities. Prior to this admission he was noted to be incoherent or at least not his usual self. He was not able to engage in reasonable conversation. I was notified by one of the home care people. They were trying to contact one of his daughters to see about bringing him to the hospital. The erlin has a long list of visits to this hospital. He has had ten toe transmetatarsal amputations since 2017. There is non healing of the left 1st toe amputation site with bone exposed. Has known osteomyelitis on the left foot. He does have adequate peripheral inflow to his feet as noted on the recent Arterial Doppler test. On recent interactions with me and with Dr Longo it has been suggested that below knee amputation of the left LE would be an appropriate mode of treatment if he returned to the hospital with sepsis related to this extremity. [facility] Past Medical History Medical History (Updated 10/25/20 @ 00:37 by Kierra Mckeon PA-C) Alcohol abuse Anxiety Asthma Benign prostatic hyperplasia Cerebrovascular accident Chronic anemia Chronic obstructive pulmonary disease Chronic respiratory failure with hypoxia, on home O2 therapy Depression Diabetic peripheral neuropathy Diastolic congestive heart failure Former smoker Gastroesophageal reflux disease Hearing loss Hypertension Ichthyosis vulgaris Irritable bowel syndrome Mixed hyperlipidemia Osteoarthritis Osteomyelitis History of osteomyelitis of both feet requiring multiple amputations. Persistent atrial fibrillation Not on long-term anticoagulation. Takes aspirin 325 mg daily. Sacrum and coccyx fracture Type 2 diabetes mellitus Diet-controlled. Hemoglobin A1c was 6.0 in June 2020. Surgical History Surgical History (Updated 10/25/20 @ 00:24 by Kierra Mckeon PA-C) History of bilateral cataract extraction History of incision and drainage Right hip abscess. History of tonsillectomy History of total right hip arthroplasty (~2002) History of transmetatarsal amputation of left foot (~2019) History of transmetatarsal amputation of right foot (~2016) History of ventral hernia repair (~2006) Family History Family History Mother Patient's mother is , Onset Age: 31 Father Suicide Social History Social History (Updated 10/25/20 @ 00:28 by Kierra Mckeon PA-C) Social History: The patient lives in [place] in an apartment. [employer] comes for a few hours a day Saturday through Saturday. He gets Meals on wheels. Has continued to refuse assisted living and the like. He tells me he has been staying with his daughter. He is . 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 Smoked a pack of cigarettes per day for 58 years and quit in December of 2018. He has a history of alcohol abuse although he says he is not drinking much anymore. No illicit substance use, he used marijuana previously. He designates his daughter, Adwoa Xiong, as his surrogate decision maker and he
[2020-10-26] MEDS: ALBUTEROL SULFATE NEB 2.5 MG/0.5 ML INH (20:02)
[2020-10-26 20:35] LABS: Glucose Point of Care 130 (65-105)
[2020-10-26] MEDS: ALPRAZolam (*CRX) 0.5 MG TABLET 1 MG PO (21:52)
[2020-10-27] VITALS (7 sets, daily range): BP systolic 112–142; BP diastolic 57–75; PULSE 53–76; RESP 18–20; TEMP 36.4; O2SAT 98–100
[2020-10-27 02:04] LABS: Vancomycin Trough 13.5 ug/mL (10.0-20.0)
[2020-10-27 05:53] LABS: Hematocrit 33.9 % (42.0-52.0); Hemoglobin 10.3 g/dL (14.0-18.0); Mean Corpuscular HGB Conc 30.4 g/dl (32-36); Mean Corpuscular Hemoglobin 25.8 pg (26-34); Mean Platelet Volume 8.9 fl (7.4-10.4); Platelet Count Result 240 k/mm3 (150-375); Red Blood Count 3.99 M/mm3 (4.6-6.20); Red Cell Distribution Width 14.9 % (11.5-14.5)
[2020-10-27 06:11] LABS: Alanine Aminotransferase 17 U/L (4-50); Alkaline Phosphatase 105 U/L (38-126); Anion Gap 6 mmol/L (8-16); Aspartate Amino Transferase 32 U/L (17-59); Bilirubin,Total 0.2 mg/dL (0.2-1.3); Blood Urea Nitrogen 21 mg/dL (9-20); Calcium 8.1 mg/dL (8.4-10.2); Carbon Dioxide 27 mmol/L (22-30); Chloride 98 mmol/L (98-107); Estimated CRCL calculation 64 ml/min; Estimated Glomerular Filt Rate > 60; Glucose 108 mg/dL (75-110); Magnesium 1.6 mg/dL (1.6-2.3); Potassium 4.2 mmol/L (3.4-5.0); Sodium 131 mmol/L (137-145)
[2020-10-27 07:57] LABS: Glucose Point of Care 100 (65-105)
[2020-10-27] MEDS: FOLIC ACID 1 MG TABLET BY MOUTH (08:22)
[2020-10-27] MEDS: DOCUSATE SODIUM 100 MG CAPSULE PO (08:22)
[2020-10-27] MEDS: LACTIC ACID 12% LOTION 225 BTL 1 APPLIC TOPICAL (08:22)
[2020-10-27] MEDS: GABAPENTIN 100 MG CAPSULE PO ×3 (08:22→16:44)
[2020-10-27] MEDS: METOPROLOL TARTRATE 25 MG TABLET BY MOUTH ×2 (08:22→20:42)
[2020-10-27] MEDS: SIMVASTATIN 10 MG TABLET PO (08:22)
[2020-10-27] MEDS: predniSONE 2.5 MG TABLET PO (08:22)
[2020-10-27] MEDS: ASPIRIN 325 MG ENTERIC TABLET BY MOUTH (08:22)
[2020-10-27] MEDS: MAGNESIUM OXIDE 400 MG TABLET PO (08:22)
[2020-10-27] MEDS: PANTOPRAZOLE 40 MG TABLET PO ×2 (08:22→16:44)
[2020-10-27] MEDS: SERTRALINE HCL 50 MG TABLET PO (08:22)
[2020-10-27] MEDS: MULTIVITAMINS THERAPEUTIC TAB (*BKC) 1 TABLET PO (08:23)
[2020-10-27] MEDS: SILVERGEL (ELTA) 45 ML 1 APPLIC TOPICAL (08:23)
[2020-10-27 13:36] LABS: Glucose Point of Care 139 (65-105)
--- NOTE | 2020-10-27 13:43 | WPDINFPN2 ---
Progress Note: A&P Assessment and Plan (1) MRSA (methicillin resistant Staphylococcus aureus) septicemia: Code(s): A41.02 - Sepsis due to Methicillin resistant Staphylococcus aureus Status: Acute Assessment and Plan: MRSA bacteremia with infection, R foot source REC Vanc #3, target trough 15-20. I favor BKA for source control. Subjective Date/time seen: 10/27/20 13:43 Objective Data Vital Signs Vital Signs: Vital Signs - 24 hr 10/26/20 14:00 10/26/20 14:35 10/26/20 14:49 Temperature 36.3 C L Pulse Rate 61 56 L 63 Respiratory Rate 16 20 20 Blood Pressure 111/54 L Pulse Oximetry 100 10/26/20 19:54 10/26/20 20:04 10/26/20 20:38 Temperature Pulse Rate 72 70 Respiratory Rate 20 Blood Pressure Pulse Oximetry 100 95 10/26/20 21:02 10/27/20 05:44 10/27/20 08:20 Temperature 36.4 C 36.4 C Pulse Rate 61 55 L Respiratory Rate 18 20 Blood Pressure 119/72 137/60 Pulse Oximetry 100 99 99 10/27/20 08:22 Temperature Pulse Rate 76 Respiratory Rate Blood Pressure Pulse Oximetry Intake/Output Intake/Output: Intake & Output 10/24/20 10/25/20 10/26/20 10/27/20 23:59 23:59 23:59 23:59 Intake Total 800 2800 1940 760 Output Total 1825 800 650 Balance 224 974 4302 110 Meds/Results Medications: Active Medications Generic Name Dose Route Start Last Admin Trade Name Freq PRN Reason Stop Dose Admin Albuterol 2.5 mg 10/25/20 03:40 Albuterol Sulfate Neb 2.5 Mg/3 Ml Inh INHALATION TIDRT PRN Shortness Of Breath Alprazolam 1 mg 10/25/20 00:44 10/26/20 21:52 Alprazolam (*Crx) 0.5 Mg Tablet PO 1 mg TID PRN Administration anxiety Aspirin 325 mg 10/25/20 09:00 10/27/20 08:22 Aspirin 325 Mg Enteric Tablet BY MOUTH 325 mg DAILY KALPESH Administration Dextrose 12.5 gm 10/25/20 00:40 Dextrose 50% 25 Gm/50 Ml Syringe IV PUSH PRN PRN Hypoglycemia Protocol Docusate Sodium 100 mg 10/25/20 09:00 10/27/20 08:22 Docusate Sodium 100 Mg Capsule PO 100 mg DAILY KALPESH Administration Folic Acid 1 mg 10/25/20 09:00 10/27/20 08:22 Folic Acid 1 Mg Tablet BY MOUTH 1 mg DAILY KALPESH Administration Gabapentin 100 mg 10/25/20 09:00 10/27/20 13:12 Gabapentin 100 Mg Capsule PO 100 mg TID KALPESH Administration Glucagon 1 mg 10/25/20 00:40 Glucagon For Inj 1 Mg Vial IM PRN PRN Hypoglycemia Protocol Glucose 15 gm 10/25/20 00:40 Glucose Oral Gel 15 Gm Of Glucse In 37.5 Gm Tube PO PRN PRN Hypoglycemia Protocol Vancomycin HCl 1,250 mg in 250 mls @ 200 mls/hr 10/25/20 14:00 10/27/20 02:13 Vancomycin 1,250 Mg/D5w 250 Ml IVPB 200 mls/hr Q18H KALPESH Administration Dextrose 1,000 mls @ 100 mls/hr 10/25/20 00:40 Dextrose 5% 1,000 Ml IVPB PRN PRN Hypoglycemia Protocol Insulin Aspart 2 - 5 units 10/25/20 08:00 10/27/20 13:11 Insulin Aspart (*Bkc) 100 Units/Ml SUB-Q Not Given TIDWM [facility] Protocol Ipratropium [place] 0.5 mg 10/25/20 03:41 Ipratropium Br 0.02% Inh Soln 0.5 Mg/2.5 Ml Vial INHALATION TIDRT PRN Shortness Of Breath Lactic Acid 1 applic 10/26/20 09:00 10/27/20 08:22 Lactic Acid 12% Lotion 225 Btl TOPICAL 1 applic QAM KALPESH Administration Magnesium Oxide 400 mg 10/26/20 09:05 10/27/20 08:22 Magnesium Oxide 400 Mg Tablet PO 400 mg QAM KALPESH Administration Metoprolol Tartrate 25 mg 10/25/20 09:00 10/27/20 08:22 Metoprolol Tartrate 25 Mg Tablet BY MOUTH 25 mg Q12HR KALPESH Administration Multivitamins Therapeutic 1 tablet 10/25/20 09:00 10/27/20 08:23 Multivitamins Therapeutic Tab (*Bkc) PO 1 tablet DAILY KALPESH Administration Pantoprazole Sodium 40 mg 10/25/20 09:00 10/27/20 08:22 Pantoprazole 40 Mg Tablet PO 11/24/20 09:01 40 mg BID KALPESH Administration Prednisone 2.5 mg 10/25/20 08:00 10/27/20 08:22 Prednisone 2.5 Mg Tablet PO 2.5 mg DAILY@0800 KALPESH
--- NOTE | 2020-10-27 13:53 | PM.IMPN ---
Progress Note: A&P Assessment and Plan (1) Osteomyelitis of left foot: Qualifiers: Osteomyelitis type: unspecified type Qualified Code(s): M86.9 - Osteomyelitis, unspecified Code(s): M86.9 - Osteomyelitis, unspecified Status: Acute Assessment and Plan: 10/27/20 13:53 10/26/20 14:08 patient is 74-year-old male with history of alcohol abuse, atrial fibrillation, chronic respiratory failure, diabetes, diabetes wound ulcer on right foot status post amputation of the right forefoot presented emergency depart pain, open sores on left foot along the previous forefoot amputation, there is open wound and some induration and erythema minimal drainage, there is no red streak, to further evaluate patient had a TRIPP which is essentially normal suggesting patient does not have peripheral vascular disease, wound culture is growing mix manjit, blood culture is growing MRSA, patient was started on vancomycin and imipenem for suspected osteomyelitis, today on 10/27/2020 patient was seen by Dr. carlton suspect MRSA bacteremia secondary to right foot infection recommending to continue vancomycin,d/c imipenem and favors BKA to control infection similarly Dr. Tee plastic surgeon also recommending BKA, will consult orthopedic surgeon further recommendation, patient is clinically stable does not have any fever will continue present management and further recommendation to follow (2) Alcohol abuse: Code(s): F10.10 - Alcohol abuse, uncomplicated Status: Acute Assessment and Plan: Patient clinically stable will monitor with CIWA protocol (3) Persistent atrial fibrillation: Code(s): I48.19 - Other persistent atrial fibrillation Status: Acute Assessment and Plan: Rate is controlled patient is not systematically anticoagulant on aspirin full dose Subjective Date/time seen: 10/27/20 13:53 10/26/20 14:08 patient is 74-year-old male with history of alcohol abuse, atrial fibrillation, chronic respiratory failure, diabetes, diabetes wound ulcer on right foot status post amputation of the right forefoot presented emergency depart pain, open sores on left foot along the previous forefoot amputation, there is open wound and some induration and erythema minimal drainage, there is no red streak, to further evaluate patient had a TRIPP which is essentially normal suggesting patient does not have peripheral vascular disease, wound culture is growing mix manjit, blood culture is growing MRSA, patient was started on vancomycin and imipenem for suspected osteomyelitis, today on 10/27/2020 patient was seen by Dr. carlton suspect MRSA bacteremia secondary to right foot infection recommending to continue vancomycin,d/c imipenem and favors BKA to control infection similarly Dr. Tee plastic surgeon also recommending BKA, will consult orthopedic surgeon further recommendation, patient is clinically stable does not have any fever will continue present management and further recommendation to follow Review of Systems Review of Systems: All systems reviewed & are unremarkable except as noted in HPI and below Exam Narrative: Exam Narrative: Appears chronically ill older than his age Patient is comfortable, NAD HEENT: eyes are clear and none icteric LUNGS: Bilateral fair entry with rhonchi HEART: Irregularly irregular ABD: BS+, Soft and nontender MS:Rt foot forefoot amputation, healing left foot forefoot amputation open wound, erythema, some induration no drainage no red streak Lower extremities: no edema SKIN: nonjaundiced Neuro: grossly intact. Objective Data Vital Signs Vital Signs: Vital Signs - 24 hr 10/26/20 14:00 10/26/20 14:35 10/26/20 14:49 Temperature 97.3 F L Pulse Rate 61 56 L 63 Respiratory Rate 16 20 20 Blood Pressure 111/54 L Pulse Oximetry 100 10/26/20 19:54 10/26/20 20:04 10/26/20 20:38 Temperature Pulse Rate 72 70 Respiratory Rate 20 Blood Pressure Pulse Oxime
--- NOTE | 2020-10-27 17:42 | PC.NURSE ---
Patient was seen by Dr. Tompkins whom has been following the patient for multiple years and has performed the patients toe amputations. Dr. Tompkins saw the patient on 10/26/2020 and states that he will continue to follow the patient through hospitalization. Per Dr. Foy he would like a consult to orthopedics for Osteomylitis and a possible below the knee amputation. A call was placed out to Dr. Billings the orthopedic doctor continuous vulcanizing machine operator for today 10/27/2020. When Dr. Billings called back the doctor stated that he does not perform amputations and would not come and see the patient for consultation at this time. It was stated that we needed to consult another orthopedic surgeon who performs amputations to assess and consult with the patient. A new consult was sent out to Dr. Laughlin in regards to the consult needed for the patient. Dr. Laughlin called back and stated that because he was not continuous vulcanizing machine operator to do consults today 10/27/2020 he would not come and evaluate the patient. Dr. Laughlin also stated that the amputation was not emergent and that the patient could always be assessed at a later date if it was truly warranted. This nurse contacted Dr. Foy in regards to not being able to get a orthopedic consult today and no one would evaluate him, per Dr. Foy contact and place a consult to general surgery to see if they can come and evaluate the patient due to they occasionally perform amputations. A consult was placed to Dr. Cano the general surgeon continuous vulcanizing machine operator to consult on the patient and the possibility of a below the knee amputation. Dr. Cano called back and was concerned about the consult in the aspect that the patient is not needing an emergency amputation at this time, and since Dr. Tompkins has already been consulted on the case and has performed his previous operations of toe amputations he felt it would be better to leave the consult up to Dr. Tompkins and not perform a consult on the patient for the amputation under general surgery at this time. He also stated that if Dr. Tompkins did not wish to consult about the amputation at that point it would be better for us to consult orthopedic surgeon again before consulting general surgery. This nurse then contacted Dr. Foy in regards to the back and forth of consulting multiple doctors about consulting for an amputation for the patient with no success. Most all of the doctors stated to just recontact Dr. Tompkins to have him discuss his options with the patient. Per Dr. Stewart note and Dr. Cruz note it has been discussed with the patient about needing the operation performed. This nurse also discussed the information with one of the patients daughters about the doctors discussion for amputation along with the families concerns that the patient needs to be informed of his options for possible comfort/palliative care. This nurse reached out to care coordination to keep palliative and comfort care measures in the possibility of options for the patient but a surgeon first needs to discuss all of the patients options prior to making any decisions. The patient has been informed of his multiple options but still would like to hear from the surgeon before making a decision. Dr. Foy was also brought up to speed on the above information and also talked to the patient at length about his options but it awaiting for Dr. Tompkins to meet with the patient again about below the knee amputation. At this time per Dr. Foy wound care will continue as prescribed currently and this nurse will attempt to make contact with Dr. Tompkins about seeing the patient again to discuss options.
[2020-10-27 18:15] LABS: Glucose Point of Care 125 (65-105)
--- NOTE | 2020-10-27 19:21 | CONS_ITS ---
DATE OF CONSULTATION: 10/27/2020 REASON FOR CONSULTATION: MRSA bacteremia. HISTORY OF PRESENT ILLNESS: The patient is a 74-year-old male known to me from the past. He has had multiple toe amputations, eventually with transmetatarsal amputations effectively across both feet. He has had past staphylococcus bacteremia as well, not aureus. He was admitted to the hospital on October 24 with bilateral foot pain, worse with weightbearing and worse on the right than the left. He also has had some drainage from his foot. This is on the left-hand side. He then was admitted. He has not undergone any surgical interventions yet and denies fever, chills, or sweats. He has been given imipenem and vancomycin now day #3. ALLERGIES: NIACIN. HABITS: Ex-smoker and ex-alcohol to excess. PRESENT MEDICATIONS: 2.5 mg of prednisone once daily. No other immunosuppressants. PAST MEDICAL HISTORY: In addition to the above, ventral hernia repair, right total hip arthroplasty, tonsillectomy, right hip abscess, cataract extractions, type 2 diabetes mellitus, PAF, hyperlipidemia, DJD, IBS, hypertension, GERD, diastolic heart failure, peripheral neuropathy, COPD with home O2 though apparently not on a continuous basis, anxiety, asthma, BPH, previous stroke. SOCIAL HISTORY: He is , lives locally. Has home health. 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 REVIEW OF SYSTEMS: Limited by the patient's memory. 14-point review otherwise negative. PHYSICAL EXAMINATION: GENERAL: This is a chronically ill-appearing male, in no respiratory distress. Appears his actual age. VITAL SIGNS: Afebrile since arrival, 76, 20, 137/60, 99% 2 L. SKIN: Decreased turgor. No rashes. NODES: He has no cervical adenopathy. EENT: Conjunctivae are not injected. No petechiae. The oral mucosa is dry. No thrush. NECK: No masses, asymmetry, meningismus. LUNGS: Clear to auscultation and percussion. CARDIAC: Regular rate and rhythm. No ectopy. No murmurs. ABDOMEN: Protuberant, but not distended. He has normal bowel sounds. No organomegaly. No masses. EXTREMITIES: Bilateral TMA. He has crusting over the left foot at the lateral incision line and also open wound with exposed bone and soft tissue. No lymphangitis evident. LABORATORY DATA: Blood cultures 2/2 sets MRSA with vancomycin AZUL equal 1. A wound culture obtained as a superficial swab, mixed manjit. His white blood cell count is 8, hemoglobin 10.3, platelets are 240. His earlier differential was 15.8 and his hemoglobin is stable versus yesterday. Earlier differential showed minimal left shift. His sedimentation rate 59. He has hyponatremia on his chemistries, BUN 21, creatinine 0.9. Accu-Cheks in the mid 100s. A1c 5.8%, albumin 3, otherwise liver function tests normal. His urinalysis, no evidence of infection. Vancomycin trough 14. RADIOLOGY: TRIPP, normal. Left foot x-ray with 1st and 5th metatarsals demonstrating pathologic fracture and suspected osteomyelitis ongoing. Chest x-ray, no active disease. ASSESSMENT: 1. Methicillin-resistant Staphylococcus aureus bacteremia, due to left foot infection and suspected chronic osteomyelitis. Other causes of bacteremia are unlikely. Other causes of his leukocytosis are unlikely. He is presently stable without progressive soft tissue infection on exam. 2. Chronic obstructive pulmonary disease and past tobacco. 3. Diabetes mellitus, appears to be well controlled. 4. Past staphylococcus bacteremia. RECOMMENDATIONS: 1. Continue vancomycin day 3, stop imipenem. 2. For source control, [id number] amputation would be best, but the patient will need to discuss further with his family and with Surgery for pros and cons. 3. If no BKA performed, then 6 weeks of vancomycin, through November
[2020-10-27 20:43] LABS: Glucose Point of Care 183 (65-105)
[2020-10-27] MEDS: ALPRAZolam (*CRX) 0.5 MG TABLET 1 MG PO (22:53)
[2020-10-27] MEDS: traMADol HCL (*CRX) 50 MG TABLET PO (23:46)
[2020-10-28] VITALS (7 sets, daily range): BP systolic 116–159; BP diastolic 65–69; PULSE 54–89; RESP 18–19; TEMP 36.2–36.4; O2SAT 92–100
[2020-10-28 05:50] LABS: Hematocrit 35.3 % (42.0-52.0); Hemoglobin 10.6 g/dL (14.0-18.0); Mean Corpuscular Hemoglobin 25.6 pg (26-34); Mean Corpuscular Volume 85.3 fl (80-100); Platelet Count Result 298 k/mm3 (150-375); Red Blood Count 4.14 M/mm3 (4.6-6.20); Red Cell Distribution Width 14.8 % (11.5-14.5); White Blood Count 6.7 K/mm3 (4.5-10.0)
[2020-10-28 06:03] LABS: Alanine Aminotransferase 17 U/L (4-50); Albumin Level 3.2 g/dL (3.5-5.1); Alkaline Phosphatase 122 U/L (38-126); Anion Gap 4 mmol/L (8-16); Aspartate Amino Transferase 34 U/L (17-59); Bilirubin,Total 0.3 mg/dL (0.2-1.3); Blood Urea Nitrogen 19 mg/dL (9-20); Calcium 8.4 mg/dL (8.4-10.2); Carbon Dioxide 32 mmol/L (22-30); Chloride 99 mmol/L (98-107); Estimated CRCL calculation 63 ml/min; Estimated Glomerular Filt Rate > 60; Glucose 105 mg/dL (75-110); Magnesium 1.6 mg/dL (1.6-2.3); Potassium 3.9 mmol/L (3.4-5.0); Sodium 135 mmol/L (137-145)
[2020-10-28 08:21] LABS: Glucose Point of Care 93 (65-105)
[2020-10-28] MEDS: predniSONE 2.5 MG TABLET PO (08:27)
[2020-10-28] MEDS: GABAPENTIN 100 MG CAPSULE PO ×3 (08:27→16:53)
[2020-10-28] MEDS: MAGNESIUM OXIDE 400 MG TABLET PO (08:27)
[2020-10-28] MEDS: ASPIRIN 325 MG ENTERIC TABLET BY MOUTH (08:27)
[2020-10-28] MEDS: DOCUSATE SODIUM 100 MG CAPSULE PO (08:28)
[2020-10-28] MEDS: METOPROLOL TARTRATE 25 MG TABLET BY MOUTH ×2 (08:28→20:40)
[2020-10-28] MEDS: PANTOPRAZOLE 40 MG TABLET PO ×2 (08:28→16:53)
[2020-10-28] MEDS: FOLIC ACID 1 MG TABLET BY MOUTH (08:28)
[2020-10-28] MEDS: MULTIVITAMINS THERAPEUTIC TAB (*BKC) 1 TABLET PO (08:28)
[2020-10-28] MEDS: SIMVASTATIN 10 MG TABLET PO (08:28)
[2020-10-28] MEDS: SERTRALINE HCL 50 MG TABLET PO (08:28)
[2020-10-28] MEDS: LACTIC ACID 12% LOTION 225 BTL 1 APPLIC TOPICAL (08:29)
[2020-10-28] MEDS: SILVERGEL (ELTA) 45 ML 1 APPLIC TOPICAL (09:43)
--- NOTE | 2020-10-28 12:46 | PM.IMPN ---
Progress Note: A&P Assessment and Plan (1) Osteomyelitis of left foot: Qualifiers: Osteomyelitis type: unspecified type Qualified Code(s): M86.9 - Osteomyelitis, unspecified Code(s): M86.9 - Osteomyelitis, unspecified Status: Acute Assessment and Plan: 10/28/20 12:48 patient is 74-year-old male with history of alcohol abuse, atrial fibrillation, chronic respiratory failure, diabetes, diabetes wound ulcer on right foot status post amputation of the right forefoot presented emergency depart pain, open sores on left foot along the previous forefoot amputation, there is open wound and some induration and erythema minimal drainage, there is no red streak, to further evaluate patient had a TRIPP which is essentially normal suggesting patient does not have peripheral vascular disease, wound culture is growing mix manjit, blood culture is growing MRSA, patient was started on vancomycin and imipenem for suspected osteomyelitis, on 10/27/2020 patient was seen by Dr. carlton suspect MRSA bacteremia secondary to right foot infection recommending to continue vancomycin,d/c imipenem and favors BKA to control infection similarly Dr. Tee plastic surgeon also recommending BKA, Patient is waiting to see an orthopedic surgeon for further recommendation, wound culture is growing staph aureus patient is on vancomycin will inform Dr. carlton, patient is clinically stable does not have any fever will continue present management and further recommendation to follow (2) Alcohol abuse: Code(s): F10.10 - Alcohol abuse, uncomplicated Status: Acute Assessment and Plan: Patient clinically stable will monitor with CIWA protocol (3) Persistent atrial fibrillation: Code(s): I48.19 - Other persistent atrial fibrillation Status: Acute Assessment and Plan: Rate is controlled patient is not systematically anticoagulant on aspirin full dose Subjective Date/time seen: 10/28/20 12:48 patient is 74-year-old male with history of alcohol abuse, atrial fibrillation, chronic respiratory failure, diabetes, diabetes wound ulcer on right foot status post amputation of the right forefoot presented emergency depart pain, open sores on left foot along the previous forefoot amputation, there is open wound and some induration and erythema minimal drainage, there is no red streak, to further evaluate patient had a TRIPP which is essentially normal suggesting patient does not have peripheral vascular disease, wound culture is growing mix manjit, blood culture is growing MRSA, patient was started on vancomycin and imipenem for suspected osteomyelitis, on 10/27/2020 patient was seen by Dr. carlton suspect MRSA bacteremia secondary to right foot infection recommending to continue vancomycin,d/c imipenem and favors BKA to control infection similarly Dr. Tee plastic surgeon also recommending BKA, Patient is waiting to see an orthopedic surgeon for further recommendation, wound culture is growing staph aureus patient is on vancomycin will inform Dr. carlton, patient is clinically stable does not have any fever will continue present management and further recommendation to follow Review of Systems Review of Systems: All systems reviewed & are unremarkable except as noted in HPI and below Exam Narrative: Exam Narrative: Appears chronically ill older than his age Patient is comfortable, NAD HEENT: eyes are clear and none icteric LUNGS: Bilateral fair entry with rhonchi HEART: Irregularly irregular ABD: BS+, Soft and nontender MS:Rt foot forefoot amputation, healing left foot forefoot amputation open wound, erythema, some induration no drainage no red streak Lower extremities: no edema SKIN: nonjaundiced Neuro: grossly intact. Objective Data Vital Signs Vital Signs: Vital Signs - 24 hr 10/27/20 14:00 10/27/20 19:52 10/27/20 20:42 Temperature 97.6 F Pulse Rate 71 58 L Respiratory Rate 18 Blood Pressure 112/57 L
[2020-10-28 13:32] LABS: Glucose Point of Care 111 (65-105)
[2020-10-28] MEDS: traMADol HCL (*CRX) 50 MG TABLET PO (16:14)
[2020-10-28 16:57] LABS: Glucose Point of Care 152 (65-105)
[2020-10-28 21:02] LABS: Glucose Point of Care 102 (65-105)
[2020-10-28] MEDS: ALPRAZolam (*CRX) 0.5 MG TABLET 1 MG PO (22:54)
[2020-10-29] VITALS (7 sets, daily range): BP systolic 115–152; BP diastolic 65–84; PULSE 51–98; RESP 18; TEMP 36.4–36.9; O2SAT 98–100
[2020-10-29 05:47] LABS: Hematocrit 34.1 % (42.0-52.0); Hemoglobin 10.1 g/dL (14.0-18.0); Mean Corpuscular HGB Conc 29.6 g/dl (32-36); Mean Corpuscular Hemoglobin 25.7 pg (26-34); Mean Corpuscular Volume 86.8 fl (80-100); Mean Platelet Volume 9.1 fl (7.4-10.4); Platelet Count Result 280 k/mm3 (150-375); Red Blood Count 3.93 M/mm3 (4.6-6.20); Red Cell Distribution Width 14.7 % (11.5-14.5); White Blood Count 8.3 K/mm3 (4.5-10.0)
[2020-10-29 06:10] LABS: Alanine Aminotransferase 16 U/L (4-50); Alkaline Phosphatase 112 U/L (38-126); Anion Gap 3 mmol/L (8-16); Aspartate Amino Transferase 38 U/L (17-59); Bilirubin,Total 0.2 mg/dL (0.2-1.3); Blood Urea Nitrogen 20 mg/dL (9-20); Calcium 8.4 mg/dL (8.4-10.2); Carbon Dioxide 32 mmol/L (22-30); Chloride 99 mmol/L (98-107); Estimated CRCL calculation 56 ml/min; Estimated Glomerular Filt Rate > 60; Glucose 98 mg/dL (75-110); Magnesium 1.6 mg/dL (1.6-2.3); Sodium 134 mmol/L (137-145)
[2020-10-29 06:40] LABS: Glucose Point of Care 104 (65-105)
[2020-10-29 08:14] LABS: Glucose Point of Care 108 (65-105)
[2020-10-29] MEDS: LACTIC ACID 12% LOTION 225 BTL 1 APPLIC TOPICAL (08:51)
[2020-10-29] MEDS: ASPIRIN 325 MG ENTERIC TABLET BY MOUTH (08:51)
[2020-10-29] MEDS: predniSONE 2.5 MG TABLET PO (08:51)
[2020-10-29] MEDS: FOLIC ACID 1 MG TABLET BY MOUTH (08:51)
[2020-10-29] MEDS: GABAPENTIN 100 MG CAPSULE PO ×3 (08:51→16:22)
[2020-10-29] MEDS: SERTRALINE HCL 50 MG TABLET PO (08:52)
[2020-10-29] MEDS: DOCUSATE SODIUM 100 MG CAPSULE PO (08:52)
[2020-10-29] MEDS: SIMVASTATIN 10 MG TABLET PO (08:52)
[2020-10-29] MEDS: PANTOPRAZOLE 40 MG TABLET PO ×2 (08:52→16:22)
[2020-10-29] MEDS: MULTIVITAMINS THERAPEUTIC TAB (*BKC) 1 TABLET PO (08:52)
[2020-10-29] MEDS: MAGNESIUM OXIDE 400 MG TABLET PO (08:52)
[2020-10-29] MEDS: METOPROLOL TARTRATE 25 MG TABLET BY MOUTH ×2 (08:52→21:14)
[2020-10-29] MEDS: SILVERGEL (ELTA) 45 ML 1 APPLIC TOPICAL (08:54)
--- NOTE | 2020-10-29 09:50 | WPDINFPN2 ---
Progress Note: A&P Assessment and Plan (1) MRSA (methicillin resistant Staphylococcus aureus) septicemia: Code(s): A41.02 - Sepsis due to Methicillin resistant Staphylococcus aureus Status: Acute Assessment and Plan: 1. MRSA bacteremia with infection, R foot source, with chronic osteomyelitis very likely 2. Normal ABIs 3. DM, well controlled, long standing REC Vanc #5, target trough 15-20. I favor BKA for source control. If no BKA, then Vanc IV through 12/05/20. Redo BCs Subjective Date/time seen: 10/29/20 09:50 Interval history: denies foot leg pain, no n/v, no chills Exam Narrative: Exam Narrative: afebrile Const: General: comfortable and no acute distress Eyes: General: appearance normal, both eyes and all related structures Resp: Effort & Inspection: normal respiratory effort Auscultation: clear to auscultation bilaterally Cardio: Rate: regular rate Rhythm: regular rhythm Heart sounds: no murmurs GI: GI Palp: Yes Firmness to palpation present (GI), No Tenderness to palpation present (GI) and No Guarding due to palpation present (GI) Skin: General skin exam: no rashes or lesions noted Extrem: Other: left foto dressed, no proximal erythema tenderness warmth Objective Data Vital Signs Vital Signs: Vital Signs - 24 hr 10/28/20 14:00 10/28/20 20:40 10/28/20 22:00 Temperature 36.3 C L 36.4 C Pulse Rate 89 89 60 Respiratory Rate 19 18 Blood Pressure 116/69 159/65 H Pulse Oximetry 99 100 10/29/20 06:00 10/29/20 08:52 Temperature 36.9 C Pulse Rate 58 L 60 Respiratory Rate 18 Blood Pressure 152/84 H Pulse Oximetry 99 Intake/Output Intake/Output: Intake & Output 10/26/20 10/27/20 10/28/20 10/29/20 23:59 23:59 23:59 23:59 Intake Total 1939 1989 1420 480 Output Total 800 1300 1250 800 Balance 1140 690 170 -320 Meds/Results Medications: Active Medications Generic Name Dose Route Start Last Admin Trade Name Freq PRN Reason Stop Dose Admin Albuterol 2.5 mg 10/25/20 03:40 Albuterol Sulfate Neb 2.5 Mg/3 Ml Inh INHALATION TIDRT PRN Shortness Of Breath Alprazolam 1 mg 10/25/20 00:44 10/28/20 22:54 Alprazolam (*Crx) 0.5 Mg Tablet PO 1 mg TID PRN Administration anxiety Aspirin 325 mg 10/25/20 09:00 10/29/20 08:51 Aspirin 325 Mg Enteric Tablet BY MOUTH 325 mg DAILY KALPES[facility] Administration Dextrose 12.5 gm 10/25/20 00:40 Dextrose 50% 25 Gm/50 Ml Syringe IV PUSH PRN PRN Hypoglycemia Protocol Docusate Sodium 100 mg 10/25/20 09:00 10/29/20 08:52 Docusate Sodium 100 Mg Capsule PO 100 mg DAILY KALPESH Administration Folic Acid 1 mg 10/25/20 09:00 10/29/20 08:51 Folic Acid 1 Mg Tablet BY MOUTH 1 mg DAILY KALPES[facility] Administration Gabapentin 100 mg 10/25/20 09:00 10/29/20 08:51 Gabapentin 100 Mg Capsule PO 100 mg TID KALPESH Administration Glucagon 1 mg 10/25/20 00:40 Glucagon For Inj 1 Mg Vial IM PRN PRN Hypoglycemia Protocol Glucose 15 gm 10/25/20 00:40 Glucose Oral Gel 15 Gm Of Glucse In 37.5 Gm Tube PO PRN PRN Hypoglycemia Protocol Vancomycin HCl 1,250 mg in 250 mls @ 200 mls/hr 10/25/20 14:00 10/29/20 08:52 Vancomycin 1,250 Mg/D5w 250 Ml IVPB 200 mls/hr Q18H [facility]AL[facility] Administration Dextrose 1,000 mls @ 100 mls/hr 10/25/20 00:40 Dextrose 5% 1,000 Ml IVPB PRN PRN Hypoglycemia Protocol Insulin Aspart 2 - 5 units 10/25/20 08:00 10/29/20 07:38 Insulin Aspart (*Bkc) 100 Units/Ml SUB-Q Not Given TIDWM [facility] Protocol Ipratropium [place] 0.5 mg 10/25/20 03:41 Ipratropium Br 0.02% Inh Soln 0.5 Mg/2.5 Ml Vial INHALATION TIDRT PRN Shortness Of Breath Lactic Acid 1 applic 10/26/20 09:00 10/29/20 08:51 Lactic Acid 12% Lotion 225 Btl TOPICAL 1 applic QAM KALPESH Administration Magnesium Oxide 400 mg 10/26/20 09:05 10/29/20 08:52 Magnesium Oxide 400 Mg Tablet PO 400 mg VERONICA Hartman
--- NOTE | 2020-10-29 10:58 | WPDPN ---
Objective Data Vital Signs Vital Signs: Vital Signs - 24 hr 10/28/20 14:00 10/28/20 20:40 10/28/20 22:00 Temperature 36.3 C L 36.4 C Pulse Rate 89 89 60 Respiratory Rate 19 18 Blood Pressure 116/69 159/65 H Pulse Oximetry 99 100 10/29/20 06:00 10/29/20 08:52 Temperature 36.9 C Pulse Rate 58 L 60 Respiratory Rate 18 Blood Pressure 152/84 H Pulse Oximetry 99 Intake/Output Intake/Output: Intake & Output 10/26/20 10/27/20 10/28/20 10/29/20 23:59 23:59 23:59 23:59 Intake Total 1940 1989 1420 480 Output Total 800 1300 1250 800 Balance 1140 690 170 -320 Meds/Results Medications: Active Medications Generic Name Dose Route Start Last Admin Trade Name Freq PRN Reason Stop Dose Admin Albuterol 2.5 mg 10/25/20 03:40 Albuterol Sulfate Neb 2.5 Mg/3 Ml Inh INHALATION TIDRT PRN Shortness Of Breath Alprazolam 1 mg 10/25/20 00:44 10/28/20 22:54 Alprazolam (*Crx) 0.5 Mg Tablet PO 1 mg TID PRN Administration anxiety Aspirin 325 mg 10/25/20 09:00 10/29/20 08:51 Aspirin 325 Mg Enteric Tablet BY MOUTH 325 mg DAILY KALPES[facility] Administration Dextrose 12.5 gm 10/25/20 00:40 Dextrose 50% 25 Gm/50 Ml Syringe IV PUSH PRN PRN Hypoglycemia Protocol Docusate Sodium 100 mg 10/25/20 09:00 10/29/20 08:52 Docusate Sodium 100 Mg Capsule PO 100 mg DAILY KALPESH Administration Folic Acid 1 mg 10/25/20 09:00 10/29/20 08:51 Folic Acid 1 Mg Tablet BY MOUTH 1 mg DAILY KALPESH Administration Gabapentin 100 mg 10/25/20 09:00 10/29/20 08:51 Gabapentin 100 Mg Capsule PO 100 mg TID KALPESH Administration Glucagon 1 mg 10/25/20 00:40 Glucagon For Inj 1 Mg Vial IM PRN PRN Hypoglycemia Protocol Glucose 15 gm 10/25/20 00:40 Glucose Oral Gel 15 Gm Of Glucse In 37.5 Gm Tube PO PRN PRN Hypoglycemia Protocol Vancomycin HCl 1,250 mg in 250 mls @ 200 mls/hr 10/25/20 14:00 10/29/20 08:52 Vancomycin 1,250 Mg/D5w 250 Ml IVPB 200 mls/hr Q18H [facility]PES[facility] Administration Dextrose 1,000 mls @ 100 mls/hr 10/25/20 00:40 Dextrose 5% 1,000 Ml IVPB PRN PRN Hypoglycemia Protocol Insulin Aspart 2 - 5 units 10/25/20 08:00 10/29/20 07:38 Insulin Aspart (*Bkc) 100 Units/Ml SUB-Q Not Given TIDWM [facility] Protocol Ipratropium [place] 0.5 mg 10/25/20 03:41 Ipratropium Br 0.02% Inh Soln 0.5 Mg/2.5 Ml Vial INHALATION TIDRT PRN Shortness Of Breath Lactic Acid 1 applic 10/26/20 09:00 10/29/20 08:51 Lactic Acid 12% Lotion 225 Btl TOPICAL 1 applic QAM [facility]ALPES[facility] Administration Magnesium Oxide 400 mg 10/26/20 09:05 10/29/20 08:52 Magnesium Oxide 400 Mg Tablet PO 400 mg QAM [facility] Administration Metoprolol Tartrate 25 mg 10/25/20 09:00 10/29/20 08:52 Metoprolol Tartrate 25 Mg Tablet BY MOUTH 25 mg Q12HR [facility]ALPES[facility] Administration Multivitamins Therapeutic 1 tablet 10/25/20 09:00 10/29/20 08:52 Multivitamins Therapeutic Tab (*Bkc) PO 1 tablet DAILY KALPESH Administration Pantoprazole Sodium 40 mg 10/25/20 09:00 10/29/20 08:52 Pantoprazole 40 Mg Tablet PO 11/24/20 09:01 40 mg BID [facility]ALPES[facility] Administration Prednisone 2.5 mg 10/25/20 08:00 10/29/20 08:51 Prednisone 2.5 Mg Tablet PO 2.5 mg DAILY@0800 KALPESH Administration Sertraline HCl 50 mg 10/25/20 09:00 10/29/20 08:52 Sertraline Hcl 50 Mg Tablet PO 50 mg DAILY [facility]ALPES[facility] Administration Silver Nitrate 1 applic 10/25/20 09:00 10/29/20 08:54 Silvergel (Elta) 45 Ml TOPICAL 1 applic DAILY [facility]ALPES[facility] Administration Simvastatin 10 mg 10/25/20 09:00 10/29/20 08:52 Simvastatin 10 Mg Tablet PO 10 mg DAILY [facility]ALPES[facility] Administration Tiotropium [place] 1 cap 10/25/20 09:00 10/29/20 08:54 Tiotropium [place] 18 Mcg Cap Diskus INHALATION 1 cap DAILY KALPESH Administration Tramadol HCl 50 mg 10/25/20 00:44 10/28/20 16:14 Tramadol Hcl (*Crx) 50 Mg Tablet PO 50 mg Q6H PRN Administration Ryan
--- NOTE | 2020-10-29 11:17 | PM.IMPN ---
Progress Note: A&P Assessment and Plan (1) Osteomyelitis of left foot: Qualifiers: Osteomyelitis type: unspecified type Qualified Code(s): M86.9 - Osteomyelitis, unspecified Code(s): M86.9 - Osteomyelitis, unspecified Status: Acute Assessment and Plan: 10/29/20 11:17 patient is 74-year-old male with history of alcohol abuse, atrial fibrillation, chronic respiratory failure, diabetes, diabetes wound ulcer on right foot status post amputation of the right forefoot presented emergency depart pain, open sores on left foot along the previous forefoot amputation, there is open wound and some induration and erythema minimal drainage, there is no red streak, to further evaluate patient had a TRIPP which is essentially normal suggesting patient does not have peripheral vascular disease, wound culture is growing mix manjit, blood culture is growing MRSA, patient was started on vancomycin and imipenem for suspected osteomyelitis, on 10/27/2020 patient was seen by Dr. longo suspect MRSA bacteremia secondary to right foot infection recommending to continue vancomycin,d/c imipenem and favors BKA to control infection similarly Dr. Tee plastic surgeon also recommending BKA, today patient was seen by Dr. Tee and patient has agreed to have BKA, it will be scheduled next week, will continue Vancomycin and after the surgery further recommendation to follow and patient will need rehab. if the event patient does not have surgery, patient was seen by Dr. Longo today and patient will need vancomycin until 12/05/2020. Will continue to monitor and further recommendation to follow (2) Alcohol abuse: Code(s): F10.10 - Alcohol abuse, uncomplicated Status: Acute Assessment and Plan: Patient clinically stable will monitor with CIWA protocol (3) Persistent atrial fibrillation: Code(s): I48.19 - Other persistent atrial fibrillation Status: Acute Assessment and Plan: Rate is controlled patient is not systematically anticoagulant on aspirin full dose Subjective Date/time seen: 10/29/20 11:17 patient is 74-year-old male with history of alcohol abuse, atrial fibrillation, chronic respiratory failure, diabetes, diabetes wound ulcer on right foot status post amputation of the right forefoot presented emergency depart pain, open sores on left foot along the previous forefoot amputation, there is open wound and some induration and erythema minimal drainage, there is no red streak, to further evaluate patient had a TRIPP which is essentially normal suggesting patient does not have peripheral vascular disease, wound culture is growing mix manjit, blood culture is growing MRSA, patient was started on vancomycin and imipenem for suspected osteomyelitis, on 10/27/2020 patient was seen by Dr. longo suspect MRSA bacteremia secondary to right foot infection recommending to continue vancomycin,d/c imipenem and favors BKA to control infection similarly Dr. Tee plastic surgeon also recommending BKA, today patient was seen by Dr. Tee and patient has agreed to have BKA, it will be scheduled next week, will continue Vancomycin and after the surgery further recommendation to follow and patient will need rehab. if the event patient does not have surgery, patient was seen by Dr. Longo today and patient will need vancomycin until 12/05/2020. Will continue to monitor and further recommendation to follow Review of Systems Review of Systems: All systems reviewed & are unremarkable except as noted in HPI and below Exam Narrative: Exam Narrative: Appears chronically ill older than his age Patient is comfortable, NAD HEENT: eyes are clear and none icteric LUNGS: Bilateral fair entry with rhonchi HEART: Irregularly irregular ABD: BS+, Soft and nontender MS:Rt foot forefoot amputation, healing left foot forefoot amputation open wound, erythema, some induration no drainage no red streak Lower extremities: no edema SKIN:
[2020-10-29 12:16] LABS: Glucose Point of Care 109 (65-105)
[2020-10-29 16:47] LABS: Glucose Point of Care 173 (65-105)
[2020-10-29 21:19] LABS: Glucose Point of Care 112 (65-105)
[2020-10-29] MEDS: ALPRAZolam (*CRX) 0.5 MG TABLET 1 MG PO (22:33)
[2020-10-29] MEDS: traMADol HCL (*CRX) 50 MG TABLET PO (22:59)
[2020-10-30 05:25] VITALS: BP 145/58; PULSE 62; RESP 18; TEMP 36.2; O2SAT 98
[2020-10-30 05:52] LABS: Hematocrit 32.4 % (42.0-52.0); Hemoglobin 9.7 g/dL (14.0-18.0); Mean Corpuscular HGB Conc 29.9 g/dl (32-36); Mean Corpuscular Hemoglobin 25.7 pg (26-34); Mean Corpuscular Volume 85.7 fl (80-100); Mean Platelet Volume 9.2 fl (7.4-10.4); Platelet Count Result 305 k/mm3 (150-375); Red Blood Count 3.78 M/mm3 (4.6-6.20); Red Cell Distribution Width 14.7 % (11.5-14.5); White Blood Count 8.3 K/mm3 (4.5-10.0)
[2020-10-30 06:05] LABS: Alanine Aminotransferase 15 U/L (4-50); Albumin Level 3.1 g/dL (3.5-5.1); Alkaline Phosphatase 104 U/L (38-126); Anion Gap 4 mmol/L (8-16); Aspartate Amino Transferase 30 U/L (17-59); Bilirubin,Total 0.1 mg/dL (0.2-1.3); Blood Urea Nitrogen 19 mg/dL (9-20); Calcium 8.1 mg/dL (8.4-10.2); Carbon Dioxide 31 mmol/L (22-30); Chloride 99 mmol/L (98-107); Estimated CRCL calculation 56 ml/min; Estimated Glomerular Filt Rate > 60; Glucose 86 mg/dL (75-110); Magnesium 1.4 mg/dL (1.6-2.3); Potassium 3.7 mmol/L (3.4-5.0); Sodium 134 mmol/L (137-145)
[2020-10-30 08:06] LABS: Glucose Point of Care 77 (65-105)
[2020-10-30] MEDS: POTASSIUM CHLORIDE 20 MEQ TABLET 40 MEQ PO (09:07)
[2020-10-30] MEDS: MAGNESIUM SULF 2 GM/WATER 50ML 2 GM/50 ML BAG IVPB (09:07)
[2020-10-30] MEDS: PANTOPRAZOLE 40 MG TABLET PO ×2 (09:07→16:09)
[2020-10-30] MEDS: predniSONE 2.5 MG TABLET PO (09:08)
[2020-10-30] MEDS: MULTIVITAMINS THERAPEUTIC TAB (*BKC) 1 TABLET PO (09:08)
[2020-10-30] MEDS: MAGNESIUM OXIDE 400 MG TABLET PO (09:08)
[2020-10-30] MEDS: GABAPENTIN 100 MG CAPSULE PO ×3 (09:08→16:09)
[2020-10-30] MEDS: LACTIC ACID 12% LOTION 225 BTL 1 APPLIC TOPICAL (09:08)
[2020-10-30] MEDS: ASPIRIN 325 MG ENTERIC TABLET BY MOUTH (09:08)
[2020-10-30] MEDS: FOLIC ACID 1 MG TABLET BY MOUTH (09:08)
[2020-10-30] MEDS: SERTRALINE HCL 50 MG TABLET PO (09:08)
[2020-10-30] MEDS: DOCUSATE SODIUM 100 MG CAPSULE PO (09:08)
[2020-10-30] MEDS: SIMVASTATIN 10 MG TABLET PO (09:08)
[2020-10-30 09:09] VITALS: PULSE 80
[2020-10-30] MEDS: METOPROLOL TARTRATE 25 MG TABLET BY MOUTH ×2 (09:09→21:50)
[2020-10-30 09:15] VITALS: O2SAT 94
--- NOTE | 2020-10-30 12:26 | PM.IMPN ---
Progress Note: A&P Assessment and Plan (1) Osteomyelitis of left foot: Qualifiers: Osteomyelitis type: unspecified type Qualified Code(s): M86.9 - Osteomyelitis, unspecified Code(s): M86.9 - Osteomyelitis, unspecified Status: Acute Assessment and Plan: 10/30/20 12:26 patient is 74-year-old male with history of alcohol abuse, atrial fibrillation, chronic respiratory failure, diabetes, diabetes wound ulcer on right foot status post amputation of the right forefoot presented emergency depart pain, open sores on left foot along the previous forefoot amputation, there is open wound and some induration and erythema minimal drainage, there is no red streak, to further evaluate patient had a TRIPP which is essentially normal suggesting patient does not have peripheral vascular disease, wound culture is growing mix manjit, blood culture is growing MRSA, patient was started on vancomycin and imipenem for suspected osteomyelitis, on 10/27/2020 patient was seen by Dr. longo suspect MRSA bacteremia secondary to right foot infection recommending to continue vancomycin,d/c imipenem and favors BKA to control infection similarly Dr. Tee plastic surgeon also recommending BKA, on 10/29/20 patient was seen by Dr. Tee and patient has agreed to have BKA, it will be scheduled next week, will continue Vancomycin and after the surgery further recommendation to follow and patient will need rehab. if the event patient does not have surgery, patient was seen by Dr. Longo today and patient will need vancomycin until 12/05/2020. Today patient stats he has no complaints and doing well Will continue to monitor and further recommendation to follow (2) Alcohol abuse: Code(s): F10.10 - Alcohol abuse, uncomplicated Status: Acute Assessment and Plan: Patient clinically stable will monitor with CIWA protocol (3) Persistent atrial fibrillation: Code(s): I48.19 - Other persistent atrial fibrillation Status: Acute Assessment and Plan: Rate is controlled patient is not systematically anticoagulant on aspirin full dose Subjective Date/time seen: 10/30/20 12:26 patient is 74-year-old male with history of alcohol abuse, atrial fibrillation, chronic respiratory failure, diabetes, diabetes wound ulcer on right foot status post amputation of the right forefoot presented emergency depart pain, open sores on left foot along the previous forefoot amputation, there is open wound and some induration and erythema minimal drainage, there is no red streak, to further evaluate patient had a TRIPP which is essentially normal suggesting patient does not have peripheral vascular disease, wound culture is growing mix manjit, blood culture is growing MRSA, patient was started on vancomycin and imipenem for suspected osteomyelitis, on 10/27/2020 patient was seen by Dr. longo suspect MRSA bacteremia secondary to right foot infection recommending to continue vancomycin,d/c imipenem and favors BKA to control infection similarly Dr. Tee plastic surgeon also recommending BKA, on 10/29/20 patient was seen by Dr. Tee and patient has agreed to have BKA, it will be scheduled next week, will continue Vancomycin and after the surgery further recommendation to follow and patient will need rehab. if the event patient does not have surgery, patient was seen by Dr. Longo today and patient will need vancomycin until 12/05/2020. Today patient stats he has no complaints and doing well Will continue to monitor and further recommendation to follow Review of Systems Review of Systems: All systems reviewed & are unremarkable except as noted in HPI and below Exam Narrative: Exam Narrative: Appears chronically ill older than his age Patient is comfortable, NAD HEENT: eyes are clear and none icteric LUNGS: Bilateral fair entry with rhonchi HEART: Irregularly irregular ABD: BS+, Soft and nontender MS:Rt foot forefoot amputation, healing left foot
[2020-10-30 12:38] LABS: Glucose Point of Care 90 (65-105)
[2020-10-30 14:00] VITALS: BP 108/59; PULSE 51; RESP 16; TEMP 36.4; O2SAT 98
[2020-10-30] MEDS: SILVERGEL (ELTA) 45 ML 1 APPLIC TOPICAL (14:06)
[2020-10-30 16:33] LABS: Glucose Point of Care 150 (65-105)
[2020-10-30 21:50] VITALS: PULSE 60
[2020-10-30] MEDS: ALPRAZolam (*CRX) 0.5 MG TABLET 1 MG PO (21:56)
[2020-10-30 22:00] VITALS: BP 146/65; PULSE 60; RESP 18; TEMP 36.6; O2SAT 99
[2020-10-31] VITALS (7 sets, daily range): BP systolic 131–153; BP diastolic 60–76; PULSE 56–60; RESP 16–18; TEMP 36.2–36.4; O2SAT 97–100
[2020-10-31 00:50] LABS: Glucose Point of Care 118 (65-105)
[2020-10-31 05:51] LABS: Hematocrit 31.7 % (42.0-52.0); Hemoglobin 9.5 g/dL (14.0-18.0); Mean Corpuscular Hemoglobin 25.5 pg (26-34); Mean Corpuscular Volume 85.2 fl (80-100); Platelet Count Result 295 k/mm3 (150-375); Red Blood Count 3.72 M/mm3 (4.6-6.20); Red Cell Distribution Width 14.9 % (11.5-14.5)
[2020-10-31 06:08] LABS: Alanine Aminotransferase 15 U/L (4-50); Albumin Level 3.1 g/dL (3.5-5.1); Alkaline Phosphatase 110 U/L (38-126); Anion Gap 4 mmol/L (8-16); Aspartate Amino Transferase 28 U/L (17-59); Bilirubin,Total 0.2 mg/dL (0.2-1.3); Blood Urea Nitrogen 18 mg/dL (9-20); Calcium 8.5 mg/dL (8.4-10.2); Carbon Dioxide 30 mmol/L (22-30); Chloride 102 mmol/L (98-107); Estimated CRCL calculation 51 ml/min; Estimated Glomerular Filt Rate > 60; Glucose 96 mg/dL (75-110); Magnesium 1.7 mg/dL (1.6-2.3); Potassium 4.4 mmol/L (3.4-5.0); Sodium 136 mmol/L (137-145)
[2020-10-31 07:21] LABS: Glucose Point of Care 104 (65-105)
[2020-10-31] MEDS: GABAPENTIN 100 MG CAPSULE PO ×3 (08:45→17:09)
[2020-10-31] MEDS: DOCUSATE SODIUM 100 MG CAPSULE PO (08:45)
[2020-10-31] MEDS: predniSONE 2.5 MG TABLET PO (08:45)
[2020-10-31] MEDS: FOLIC ACID 1 MG TABLET BY MOUTH (08:45)
[2020-10-31] MEDS: SIMVASTATIN 10 MG TABLET PO (08:45)
[2020-10-31] MEDS: ASPIRIN 325 MG ENTERIC TABLET BY MOUTH (08:45)
[2020-10-31] MEDS: MAGNESIUM OXIDE 400 MG TABLET PO (08:45)
[2020-10-31] MEDS: METOPROLOL TARTRATE 25 MG TABLET BY MOUTH ×2 (08:46→20:51)
[2020-10-31] MEDS: MULTIVITAMINS THERAPEUTIC TAB (*BKC) 1 TABLET PO (08:47)
[2020-10-31] MEDS: SERTRALINE HCL 50 MG TABLET PO (08:48)
[2020-10-31] MEDS: PANTOPRAZOLE 40 MG TABLET PO ×2 (08:48→17:09)
[2020-10-31] MEDS: LACTIC ACID 12% LOTION 225 BTL 1 APPLIC TOPICAL (08:48)
[2020-10-31] MEDS: SILVERGEL (ELTA) 45 ML 1 APPLIC TOPICAL (08:49)
[2020-10-31] MEDS: traMADol HCL (*CRX) 50 MG TABLET PO (10:45)
--- NOTE | 2020-10-31 10:52 | WPDPN ---
Progress Note: A&P Additional Plan Left ANIVAL is on the surgical schedule for Saturday. I have not yet informed the patient. Objective Data Vital Signs Vital Signs: Vital Signs - 24 hr 10/30/20 14:00 10/30/20 21:50 10/30/20 22:00 Temperature 36.4 C 36.6 C Pulse Rate 51 L 60 60 Respiratory Rate 16 18 Blood Pressure 108/59 L 146/65 H Pulse Oximetry 98 99 10/31/20 06:00 10/31/20 08:46 Temperature 36.4 C Pulse Rate 56 L 60 Respiratory Rate 18 Blood Pressure 148/74 H Pulse Oximetry 98 Intake/Output Intake/Output: Intake & Output 10/28/20 10/29/20 10/30/20 10/31/20 23:59 23:59 23:59 23:59 Intake Total 1420 1445 2190 390 Output Total 1250 1300 1725 1050 Balance 170 145 465 -660 Meds/Results Medications: Active Medications Generic Name Dose Route Start Last Admin Trade Name Freq PRN Reason Stop Dose Admin Albuterol 2.5 mg 10/25/20 03:40 Albuterol Sulfate Neb 2.5 Mg/3 Ml Inh INHALATION TIDRT PRN Shortness Of Breath Alprazolam 1 mg 10/25/20 00:44 10/30/20 21:56 Alprazolam (*Crx) 0.5 Mg Tablet PO 1 mg TID PRN Administration anxiety Aspirin 325 mg 10/25/20 09:00 10/31/20 08:45 Aspirin 325 Mg Enteric Tablet BY MOUTH 325 mg DAILY [facility]ALPES[facility] Administration Dextrose 12.5 gm 10/25/20 00:40 Dextrose 50% 25 Gm/50 Ml Syringe IV PUSH PRN PRN Hypoglycemia Protocol Docusate Sodium 100 mg 10/25/20 09:00 10/31/20 08:45 Docusate Sodium 100 Mg Capsule PO 100 mg DAILY KALPESH Administration Folic Acid 1 mg 10/25/20 09:00 10/31/20 08:45 Folic Acid 1 Mg Tablet BY MOUTH 1 mg DAILY KALPESH Administration Gabapentin 100 mg 10/25/20 09:00 10/31/20 08:45 Gabapentin 100 Mg Capsule PO 100 mg TID KALPESH Administration Glucagon 1 mg 10/25/20 00:40 Glucagon For Inj 1 Mg Vial IM PRN PRN Hypoglycemia Protocol Glucose 15 gm 10/25/20 00:40 Glucose Oral Gel 15 Gm Of Glucse In 37.5 Gm Tube PO PRN PRN Hypoglycemia Protocol Vancomycin HCl 1,250 mg in 250 mls @ 200 mls/hr 10/25/20 14:00 10/30/20 22:22 Vancomycin 1,250 Mg/D5w 250 Ml IVPB Infused Q18H KALPESH Infusion Dextrose 1,000 mls @ 100 mls/hr 10/25/20 00:40 Dextrose 5% 1,000 Ml IVPB PRN PRN Hypoglycemia Protocol Insulin Aspart 2 - 5 units 10/25/20 08:00 10/31/20 08:01 Insulin Aspart (*Bkc) 100 Units/Ml SUB-Q Not Given TIDWM [facility] Protocol Ipratropium [place] 0.5 mg 10/25/20 03:41 Ipratropium Br 0.02% Inh Soln 0.5 Mg/2.5 Ml Vial INHALATION TIDRT PRN Shortness Of Breath Lactic Acid 1 applic 10/26/20 09:00 10/31/20 08:48 Lactic Acid 12% Lotion 225 Btl TOPICAL 1 applic QAM KALPESH Administration Magnesium Oxide 400 mg 10/26/20 09:05 10/31/20 08:45 Magnesium Oxide 400 Mg Tablet PO 400 mg QAM KALPES[facility] Administration Metoprolol Tartrate 25 mg 10/25/20 09:00 10/31/20 08:46 Metoprolol Tartrate 25 Mg Tablet BY MOUTH 25 mg Q12HR KALPESH Administration Multivitamins Therapeutic 1 tablet 10/25/20 09:00 10/31/20 08:47 Multivitamins Therapeutic Tab (*Bkc) PO 1 tablet DAILY KALPESH Administration Pantoprazole Sodium 40 mg 10/25/20 09:00 10/31/20 08:48 Pantoprazole 40 Mg Tablet PO 11/24/20 09:01 40 mg BID KALPESH Administration Prednisone 2.5 mg 10/25/20 08:00 10/31/20 08:45 Prednisone 2.5 Mg Tablet PO 2.5 mg DAILY@0800 KALPESH Administration Sertraline HCl 50 mg 10/25/20 09:00 10/31/20 08:48 Sertraline Hcl 50 Mg Tablet PO 50 mg DAILY [facility]ALPES[facility] Administration Silver Nitrate 1 applic 10/25/20 09:00 10/31/20 08:49 Silvergel (Elta) 45 Ml TOPICAL 1 applic DAILY KALPES[facility] Administration Simvastatin 10 mg 10/25/20 09:00 10/31/20 08:45 Simvastatin 10 Mg Tablet PO 10 mg DAILY KALPES[facility] Administration Tiotropium [place] 1 cap 10/25/20 09:00 10/31/20 08:50 Tiotropium [place] 18 Mcg Cap Diskus INHALATION 1 cap DAILY KALPESH Administration Tramadol HCl
--- NOTE | 2020-10-31 11:49 | PCNWS ---
Weekly nutritional screen. Patient is tolerating current diet with adequate intake. No weight loss reported. Left BKA. orders for diet order changed from heart healthy to DBCC. No further nutritional needs at this time.
[2020-10-31 11:57] LABS: Glucose Point of Care 119 (65-105)
--- NOTE | 2020-10-31 13:23 | WPDINFPN2 ---
Progress Note: A&P Assessment and Plan (1) MRSA (methicillin resistant Staphylococcus aureus) septicemia: Code(s): A41.02 - Sepsis due to Methicillin resistant Staphylococcus aureus Status: Acute Assessment and Plan: 1. MRSA bacteremia with infection, R foot source, with chronic osteomyelitis very likely. Repeat BCs ng 2 days 2. Normal ABIs, but suspect small vessel disease 3. DM, well controlled, long standing REC Vanc #7, target trough 15-20. Repeat level in process. BKA planned for 11/02. IV rx about 2 days post op, then if no new events plan on oral therapy (e.g. [id number]) through 11/15 Subjective Date/time seen: 10/31/20 13:23 Interval history: no new complaints, + malaise. Exam Narrative: Exam Narrative: afebrile Const: General: no acute distress Other: appears chronically ill Eyes: General: appearance normal, both eyes and all related structures Resp: Effort & Inspection: normal respiratory effort Auscultation: clear to auscultation bilaterally Cardio: Rate: regular rate Rhythm: regular rhythm Heart sounds: no murmurs GI: Inspection: non-distended GI Palp: Yes Soft to palpation and No Tenderness to palpation present (GI) Skin: General skin exam: normal color and no rashes or lesions noted Objective Data Vital Signs Vital Signs: Vital Signs - 24 hr 10/30/20 14:00 10/30/20 21:50 10/30/20 22:00 Temperature 36.4 C 36.6 C Pulse Rate 51 L 60 60 Respiratory Rate 16 18 Blood Pressure 108/59 L 146/65 H Pulse Oximetry 98 99 10/31/20 06:00 10/31/20 08:46 10/31/20 08:48 Temperature 36.4 C Pulse Rate 56 L 60 Respiratory Rate 18 18 Blood Pressure 148/74 H Pulse Oximetry 98 97 Intake/Output Intake/Output: Intake & Output 10/28/20 10/29/20 10/30/20 10/31/20 23:59 23:59 23:59 23:59 Intake Total 1420 1445 2190 630 Output Total 1250 1300 1725 1050 Balance 170 145 465 -420 Meds/Results Medications: Active Medications Generic Name Dose Route Start Last Admin Trade Name Freq PRN Reason Stop Dose Admin Albuterol 2.5 mg 10/25/20 03:40 Albuterol Sulfate Neb 2.5 Mg/3 Ml Inh INHALATION TIDRT PRN Shortness Of Breath Alprazolam 1 mg 10/25/20 00:44 10/30/20 21:56 Alprazolam (*Crx) 0.5 Mg Tablet PO 1 mg TID PRN Administration anxiety Aspirin 325 mg 10/25/20 09:00 10/31/20 08:45 Aspirin 325 Mg Enteric Tablet BY MOUTH 325 mg DAILY [facility] Administration Dextrose 12.5 gm 10/25/20 00:40 Dextrose 50% 25 Gm/50 Ml Syringe IV PUSH PRN PRN Hypoglycemia Protocol Docusate Sodium 100 mg 10/25/20 09:00 10/31/20 08:45 Docusate Sodium 100 Mg Capsule PO 100 mg DAILY [facility] Administration Folic Acid 1 mg 10/25/20 09:00 10/31/20 08:45 Folic Acid 1 Mg Tablet BY MOUTH 1 mg DAILY [facility] Administration Gabapentin 100 mg 10/25/20 09:00 10/31/20 12:47 Gabapentin 100 Mg Capsule PO 100 mg TID [facility] Administration Glucagon 1 mg 10/25/20 00:40 Glucagon For Inj 1 Mg Vial IM PRN PRN Hypoglycemia Protocol Glucose 15 gm 10/25/20 00:40 Glucose Oral Gel 15 Gm Of Glucse In 37.5 Gm Tube PO PRN PRN Hypoglycemia Protocol Vancomycin HCl 1,250 mg in 250 mls @ 200 mls/hr 10/25/20 14:00 10/30/20 22:22 Vancomycin 1,250 Mg/D5w 250 Ml IVPB Infused Q18H [facility] Infusion Dextrose 1,000 mls @ 100 mls/hr 10/25/20 00:40 Dextrose 5% 1,000 Ml IVPB PRN PRN Hypoglycemia Protocol Insulin Aspart 2 - 5 units 10/25/20 08:00 10/31/20 11:58 Insulin Aspart (*Bkc) 100 Units/Ml SUB-Q Not Given [facility] Protocol Ipratropium [place] 0.5 mg 10/25/20 03:41 Ipratropium Br 0.02% Inh Soln 0.5 Mg/2.5 Ml Vial INHALATION TIDRT PRN Shortness Of Breath Lactic Acid 1 applic 10/26/20 09:00 10/31/20 08:48 Lactic Acid 12% Lotion 225 Btl TOPICAL 1 applic QAM [facility] Administration Magnesium Oxide 400 mg 10/26/20 09:05 10/31/20 08:45 Magnesium
--- NOTE | 2020-10-31 13:41 | PM.IMPN ---
Progress Note: A&P Assessment and Plan (1) Osteomyelitis of left foot: Qualifiers: Osteomyelitis type: unspecified type Qualified Code(s): M86.9 - Osteomyelitis, unspecified Code(s): M86.9 - Osteomyelitis, unspecified Status: Acute Assessment and Plan: 10/31/20 13:41 patient is 74-year-old male with history of alcohol abuse, atrial fibrillation, chronic respiratory failure, diabetes, diabetes wound ulcer on right foot status post amputation of the right forefoot presented emergency depart pain, open sores on left foot along the previous forefoot amputation, there is open wound and some induration and erythema minimal drainage, there is no red streak, to further evaluate patient had a TRIPP which is essentially normal suggesting patient does not have peripheral vascular disease, wound culture is growing mix manjit, blood culture is growing MRSA, patient was started on vancomycin and imipenem for suspected osteomyelitis, on 10/27/2020 patient was seen by Dr. longo suspect MRSA bacteremia secondary to right foot infection recommending to continue vancomycin,d/c imipenem and favors BKA to control infection similarly Dr. Tee plastic surgeon also recommending BKA, on 10/29/20 patient was seen by Dr. Tee and patient has agreed to have BKA, it will be scheduled next week, will continue Vancomycin and after the surgery further recommendation to follow and patient will need rehab. if the event patient does not have surgery, patient was seen by Dr. Longo today and patient will need vancomycin until 12/05/2020. Today patient stats he has no complaints and doing well, awaiting for surgery on Saturday10/31/2020, Will continue to monitor and further recommendation to follow (2) Alcohol abuse: Code(s): F10.10 - Alcohol abuse, uncomplicated Status: Acute Assessment and Plan: Patient clinically stable will monitor with CIWA protocol (3) Persistent atrial fibrillation: Code(s): I48.19 - Other persistent atrial fibrillation Status: Acute Assessment and Plan: Rate is controlled patient is not systematically anticoagulant on aspirin full dose Subjective Date/time seen: 10/31/20 13:41 patient is 74-year-old male with history of alcohol abuse, atrial fibrillation, chronic respiratory failure, diabetes, diabetes wound ulcer on right foot status post amputation of the right forefoot presented emergency depart pain, open sores on left foot along the previous forefoot amputation, there is open wound and some induration and erythema minimal drainage, there is no red streak, to further evaluate patient had a TRIPP which is essentially normal suggesting patient does not have peripheral vascular disease, wound culture is growing mix manjit, blood culture is growing MRSA, patient was started on vancomycin and imipenem for suspected osteomyelitis, on 10/27/2020 patient was seen by Dr. longo suspect MRSA bacteremia secondary to right foot infection recommending to continue vancomycin,d/c imipenem and favors BKA to control infection similarly Dr. Tee plastic surgeon also recommending BKA, on 10/29/20 patient was seen by Dr. Tee and patient has agreed to have BKA, it will be scheduled next week, will continue Vancomycin and after the surgery further recommendation to follow and patient will need rehab. if the event patient does not have surgery, patient was seen by Dr. Longo today and patient will need vancomycin until 12/05/2020. Today patient stats he has no complaints and doing well, awaiting for surgery on Saturday10/31/2020, Will continue to monitor and further recommendation to follow Review of Systems Review of Systems: All systems reviewed & are unremarkable except as noted in HPI and below Exam Narrative: Exam Narrative: Appears chronically ill older than his age Patient is comfortable, NAD HEENT: eyes are clear and none icteric LUNGS: Bilateral fair entry with rhonchi HEART: Irregular
[2020-10-31 14:06] LABS: Vancomycin Trough 17.4 ug/mL (10.0-20.0)
[2020-10-31 16:58] LABS: Glucose Point of Care 113 (65-105)
[2020-10-31] MEDS: ALPRAZolam (*CRX) 0.5 MG TABLET 1 MG PO (20:58)
[2020-11-01] VITALS (8 sets, daily range): BP systolic 125–151; BP diastolic 58–68; PULSE 36–99; RESP 16–22; TEMP 36–36.3; O2SAT 52–99
[2020-11-01 02:34] LABS: Glucose Point of Care 171 (65-105)
[2020-11-01 05:41] LABS: Hemoglobin 9.4 g/dL (14.0-18.0); Mean Corpuscular HGB Conc 29.4 g/dl (32-36); Mean Corpuscular Hemoglobin 25.7 pg (26-34); Mean Corpuscular Volume 87.4 fl (80-100); Mean Platelet Volume 9.2 fl (7.4-10.4); Platelet Count Result 285 k/mm3 (150-375); Red Blood Count 3.66 M/mm3 (4.6-6.20); Red Cell Distribution Width 14.6 % (11.5-14.5); White Blood Count 7.7 K/mm3 (4.5-10.0)
[2020-11-01 05:51] LABS: Alanine Aminotransferase 15 U/L (4-50); Alkaline Phosphatase 102 U/L (38-126); Anion Gap 4 mmol/L (8-16); Aspartate Amino Transferase 24 U/L (17-59); Bilirubin,Total 0.2 mg/dL (0.2-1.3); Blood Urea Nitrogen 19 mg/dL (9-20); Calcium 8.3 mg/dL (8.4-10.2); Carbon Dioxide 29 mmol/L (22-30); Chloride 102 mmol/L (98-107); Estimated CRCL calculation 54 ml/min; Estimated Glomerular Filt Rate > 60; Glucose 153 mg/dL (75-110); Magnesium 1.6 mg/dL (1.6-2.3); Potassium 3.9 mmol/L (3.4-5.0); Sodium 135 mmol/L (137-145)
[2020-11-01] MEDS: ASPIRIN 325 MG ENTERIC TABLET BY MOUTH (08:15)
[2020-11-01] MEDS: PANTOPRAZOLE 40 MG TABLET PO ×2 (08:15→16:44)
[2020-11-01] MEDS: predniSONE 2.5 MG TABLET PO (08:15)
[2020-11-01] MEDS: GABAPENTIN 100 MG CAPSULE PO ×3 (08:15→16:43)
[2020-11-01] MEDS: DOCUSATE SODIUM 100 MG CAPSULE PO (08:16)
[2020-11-01] MEDS: SERTRALINE HCL 50 MG TABLET PO (08:19)
[2020-11-01] MEDS: SIMVASTATIN 10 MG TABLET PO (08:19)
[2020-11-01] MEDS: MULTIVITAMINS THERAPEUTIC TAB (*BKC) 1 TABLET PO (08:19)
[2020-11-01] MEDS: FOLIC ACID 1 MG TABLET BY MOUTH (08:19)
[2020-11-01] MEDS: MAGNESIUM OXIDE 400 MG TABLET PO (08:19)
[2020-11-01] MEDS: LACTIC ACID 12% LOTION 225 BTL 1 APPLIC TOPICAL (08:28)
[2020-11-01] MEDS: SILVERGEL (ELTA) 45 ML 1 APPLIC TOPICAL (10:22)
[2020-11-01 11:22] LABS: Glucose Point of Care 91 (65-105)
[2020-11-01 13:08] LABS: Glucose Point of Care 118 (65-105)
--- NOTE | 2020-11-01 14:02 | PM.IMPN ---
Progress Note: A&P Assessment and Plan (1) Osteomyelitis of left foot: Qualifiers: Osteomyelitis type: unspecified type Qualified Code(s): M86.9 - Osteomyelitis, unspecified Code(s): M86.9 - Osteomyelitis, unspecified Status: Acute Assessment and Plan: 11/01/20 14:02 patient is 74-year-old male with history of alcohol abuse, atrial fibrillation, chronic respiratory failure, diabetes, diabetes wound ulcer on right foot status post amputation of the right forefoot presented emergency depart pain, open sores on left foot along the previous forefoot amputation, there is open wound and some induration and erythema minimal drainage, there is no red streak, to further evaluate patient had a TRIPP which is essentially normal suggesting patient does not have peripheral vascular disease, wound culture is growing mix manjit, blood culture is growing MRSA, patient was started on vancomycin and imipenem for suspected osteomyelitis, on 10/27/2020 patient was seen by Dr. longo suspect MRSA bacteremia secondary to right foot infection recommending to continue vancomycin,d/c imipenem and favors BKA to control infection similarly Dr. Tee plastic surgeon also recommending BKA, on 10/29/20 patient was seen by Dr. Tee and patient has agreed to have BKA, it will be scheduled next week, will continue Vancomycin and after the surgery further recommendation to follow and patient will need rehab. if the event patient does not have surgery, patient was seen by Dr. Longo today and patient will need vancomycin until 12/05/2020. Today patient stats he has no complaints and doing well, patient is scheduled with surgery tomorrow, patient will be NPO after midnight, will follow-up after the surgery and further recommendation to follow, discussed with home health aide caregiver patient will benefit from rehab with [facility] (2) Alcohol abuse: Code(s): F10.10 - Alcohol abuse, uncomplicated Status: Acute Assessment and Plan: Patient clinically stable will monitor with CIWA protocol (3) Persistent atrial fibrillation: Code(s): I48.19 - Other persistent atrial fibrillation Status: Acute Assessment and Plan: Rate is controlled patient is not systematically anticoagulant on aspirin full dose Subjective Date/time seen: 11/01/20 14:02 patient is 74-year-old male with history of alcohol abuse, atrial fibrillation, chronic respiratory failure, diabetes, diabetes wound ulcer on right foot status post amputation of the right forefoot presented emergency depart pain, open sores on left foot along the previous forefoot amputation, there is open wound and some induration and erythema minimal drainage, there is no red streak, to further evaluate patient had a TRIPP which is essentially normal suggesting patient does not have peripheral vascular disease, wound culture is growing mix manjit, blood culture is growing MRSA, patient was started on vancomycin and imipenem for suspected osteomyelitis, on 10/27/2020 patient was seen by Dr. longo suspect MRSA bacteremia secondary to right foot infection recommending to continue vancomycin,d/c imipenem and favors BKA to control infection similarly Dr. Tee plastic surgeon also recommending BKA, on 10/29/20 patient was seen by Dr. Tee and patient has agreed to have BKA, it will be scheduled next week, will continue Vancomycin and after the surgery further recommendation to follow and patient will need rehab. if the event patient does not have surgery, patient was seen by Dr. Longo today and patient will need vancomycin until 12/05/2020. Today patient stats he has no complaints and doing well, patient is scheduled with surgery tomorrow, patient will be NPO after midnight, will follow-up after the surgery and further recommendation to follow, discussed with home health aide caregiver patient will benefit from rehab with [facility] Review of Systems Review of Systems: All systems reviewed & are unremarkable except as n
--- NOTE | 2020-11-01 14:03 | PCOTNOTE ---
Attempted OT treatment, pt reports I do not feel very good right now, i just want to lay here . will attempt OT treatment tomorrow.
[2020-11-01 17:06] LABS: Glucose Point of Care 121 (65-105)
--- NOTE | 2020-11-01 18:54 | WPDANESEPP ---
Anes - Eval Pre Procedure Procedure: Operation Date: 11/02/20 15:00 Proposed Procedures p Left Below Knee Amputation - Ravin Heaton MD Date/Time: 11/01/20 18:54 Pre Op Diagnosis: Left Foot osteomyelitis Patient Data Age: 74 Gender: M Height: 6 ft Weight: 72 kg Last Vital Signs Temp 97.4 F L 11/01/20 14:00 Pulse 58 L 11/01/20 14:00 Resp 20 11/01/20 14:00 BP 125/58 L 11/01/20 14:00 Pulse Ox 98 11/01/20 15:44 Allergies Allergy/AdvReac Type Severity Reaction Status Date / Time niacin Allergy Unknown Unknown Verified 06/27/20 12:06 Home Medications Medication Instructions Recorded Confirmed Type prednisone 2.5 mg tablet 2.5 mg PO DAILY 09/30/19 10/24/20 History multivitamin [Daily Multi-Vitamin] 1 tablet PO DAILY 12/29/19 10/24/20 History albuterol sulfate See Rx Instructions .ROUTE 02/19/20 10/24/20 Rx .COMPLEX #810 ml levofloxacin [Levaquin] 500 mg PO DAILY #10 tablet 07/01/20 10/24/20 Rx silver [Silver-Sept] 1 applic TOPICAL DAILY #60 g 07/01/20 10/24/20 Rx aspirin 325 mg tablet,delayed See Rx Instructions .ROUTE 08/02/20 10/24/20 Rx release .COMPLEX #90 tablet metoprolol tartrate 25 mg tablet See Rx Instructions .ROUTE 08/02/20 10/24/20 Rx .COMPLEX #90 tablet ipratropium 0.5 mg-albuterol 3 mg See Rx Instructions .ROUTE 09/02/20 10/24/20 Rx (2.5 mg base)/3 mL nebulization .COMPLEX #270 ml soln tiotropium bromide 18 mcg capsule 1 cap INHALATION DAILY #90 inh 09/02/20 10/24/20 Rx with inhalation device sertraline 50 mg tablet 50 mg PO DAILY #90 tablet 09/26/20 10/24/20 Rx simvastatin 10 mg tablet 10 mg PO DAILY #90 tablet 09/26/20 10/24/20 Rx tramadol 50 mg tablet 50 mg PO Q6H PRN #30 tablet 10/01/20 10/24/20 Rx folic acid 1 mg tablet See Rx Instructions .ROUTE 10/14/20 10/24/20 Rx .COMPLEX #90 tablet alprazolam 1 mg tablet 1 mg PO TID PRN #90 tablet 10/18/20 10/24/20 Rx docusate sodium [Colace] 100 mg PO DAILY 10/24/20 10/24/20 History gabapentin 100 mg PO TID 10/24/20 10/24/20 History omeprazole 20 mg capsule,delayed 40 mg PO BID #60 cap 10/24/20 10/24/20 Rx release Laboratory Tests 10/31/20 11/01/20 11/01/20 21:09 05:04 05:04 WBC 7.7 K/mm3 K/mm3 (4.5-10.0) RBC 3.66 M/mm3 L M/mm3 (4.6-6.20) Hgb 9.4 g/dL L g/dL (14.0-18.0) Hct 32.0 % L % (42.0-52.0) MCV 87.4 fl fl (80-100) MCH 25.7 pg L pg (26-34) MCHC 29.4 g/dl L g/dl (32-36) RDW 14.6 % H % (11.5-14.5) Plt Count 285 k/mm3 k/mm3 (150-375) MPV 9.2 fl fl (7.4-10.4) Sodium 135 mmol/L L mmol/L (137-145) Potassium 3.9 mmol/L mmol/L (3.4-5.0) Chloride 102 mmol/L mmol/L (98-107) Carbon Dioxide 29 mmol/L mmol/L (22-30) Anion Gap 4 mmol/L L mmol/L (8-16) BUN 19 mg/dL mg/dL (9-20) Creatinine 1.10 mg/dL mg/dL (0.7-1.3) Estim Creat Clear Calc 54 ml/min ml/min Estimated GFR > 60 (59 - ) Glucose 153 mg/dL H mg/dL (75-110) POC Capillary Glucose 171 mg/dl H mg/dl (65-105) Calcium 8.3 mg/dL L mg/dL (8.4-10.2) Magnesium 1.6 mg/dL mg/dL (1.6-2.3) Total Bilirubin 0.2 mg/dL mg/dL (0.2-1.3) AST 24 U/L U/L (17-59) ALT 15 U/L U/L (4-50) Alkaline Phosphatase 102 U/L U/L (38-126) Total Protein 7.0 g/dL g/dL (6.3-8.2) Albumin 3.0 g/dL L g/dL (3.5-5.1) 11/01/20 11/01/20 11/01/20 08:26 11:47 17:03 WBC RBC Hgb Hct MCV MCH MCHC RDW Plt Count MPV Sodium Potassium Chloride Carbon Dioxide Anion Gap BUN Creatinine Estim Creat Clear Calc Estimated GFR Glucose
--- NOTE | 2020-11-01 19:01 | WPDPN ---
Progress Note: A&P Additional Plan BKA on the left tomorrow under general anesthesia. Exam Narrative: Exam Narrative: Pt fully alert. Agreeable. Asking questions. Hard of hearing. Discussed the plan for BKA on Saturday. He repeats that he would rather not go to [facility].Would like to do rehab at his house I explained the level of the amputation and the reasons for doing so. He agreed to proceed without hesitation. I later spoke to Annetta, one of his daughters and answered all her questions. Labs reviewed. WBC wnl. Hb 9.4 Will use operating tourniquet. POC ~ 120. Objective Data Vital Signs Vital Signs: Vital Signs - 24 hr 10/31/20 20:51 10/31/20 20:55 10/31/20 21:55 Temperature 36.2 C L Pulse Rate 60 60 Respiratory Rate 16 Blood Pressure 153/76 H Pulse Oximetry 98 100 11/01/20 06:00 11/01/20 08:36 11/01/20 14:00 Temperature 36.0 C L 36.3 C L Pulse Rate 50 L 36 L 58 L Respiratory Rate 16 20 Blood Pressure 133/58 L 125/58 L Pulse Oximetry 99 98 11/01/20 15:44 Temperature Pulse Rate Respiratory Rate Blood Pressure Pulse Oximetry 98 Intake/Output Intake/Output: Intake & Output 10/29/20 10/30/20 10/31/20 11/01/20 23:59 23:59 23:59 23:59 Intake Total 1445 2190 1570 1700 Output Total 1300 1725 2050 1400 Balance 145 465 -480 300 Meds/Results Medications: Active Medications Generic Name Dose Route Start Last Admin Trade Name Freq PRN Reason Stop Dose Admin Albuterol 2.5 mg 10/25/20 03:40 Albuterol Sulfate Neb 2.5 Mg/3 Ml Inh INHALATION TIDRT PRN Shortness Of Breath Alprazolam 1 mg 10/25/20 00:44 10/31/20 20:58 Alprazolam (*Crx) 0.5 Mg Tablet PO 1 mg TID PRN Administration anxiety Aspirin 325 mg 10/25/20 09:00 11/01/20 08:15 Aspirin 325 Mg Enteric Tablet BY MOUTH 325 mg DAILY [facility] Administration Dextrose 12.5 gm 10/25/20 00:40 Dextrose 50% 25 Gm/50 Ml Syringe IV PUSH PRN PRN Hypoglycemia Protocol Docusate Sodium 100 mg 10/25/20 09:00 11/01/20 08:16 Docusate Sodium 100 Mg Capsule PO 100 mg DAILY [facility] Administration Folic Acid 1 mg 10/25/20 09:00 11/01/20 08:19 Folic Acid 1 Mg Tablet BY MOUTH 1 mg DAILY [facility] Administration Gabapentin 100 mg 10/25/20 09:00 11/01/20 16:43 Gabapentin 100 Mg Capsule PO 100 mg TID [facility] Administration Glucagon 1 mg 10/25/20 00:40 Glucagon For Inj 1 Mg Vial IM PRN PRN Hypoglycemia Protocol Glucose 15 gm 10/25/20 00:40 Glucose Oral Gel 15 Gm Of Glucse In 37.5 Gm Tube PO PRN PRN Hypoglycemia Protocol Dextrose 1,000 mls @ 100 mls/hr 10/25/20 00:40 Dextrose 5% 1,000 Ml IVPB PRN PRN Hypoglycemia Protocol Vancomycin HCl 1,250 mg in 250 mls @ 200 mls/hr 10/31/20 20:00 10/31/20 22:03 Vancomycin 1,250 Mg/D5w 250 Ml IVPB Infused Q24H [facility] Infusion Insulin Aspart 2 - 5 units 10/25/20 08:00 11/01/20 17:15 Insulin Aspart (*Bkc) 100 Units/Ml SUB-Q Not Given TIDWM [facility] Protocol Ipratropium [place] 0.5 mg 10/25/20 03:41 Ipratropium Br 0.02% Inh Soln 0.5 Mg/2.5 Ml Vial INHALATION TIDRT PRN Shortness Of Breath Lactic Acid 1 applic 10/26/20 09:00 11/01/20 08:28 Lactic Acid 12% Lotion 225 Btl TOPICAL 1 applic QAM [facility] Administration Magnesium Oxide 400 mg 10/26/20 09:05 11/01/20 08:19 Magnesium Oxide 400 Mg Tablet PO 400 mg QAM [facility] Administration Metoprolol Tartrate 25 mg 10/25/20 09:00 11/01/20 08:36 Metoprolol Tartrate 25 Mg Tablet BY MOUTH Not Given Q12HR [facility] Multivitamins Therapeutic 1 tablet 10/25/20 09:00 11/01/20 08:19 Multivitamins Therapeutic Tab (*Bkc) PO 1 tablet DAILY [facility] Administration Pantoprazole Sodium 40 mg 10/25/20 09:00 11/01/20 16:44 Pantoprazole 40 Mg Tablet PO 11/24/20 09:01 40 mg BID [facility] Administration Prednisone 2.5 mg 10/25/20 08:00 11/01/20 08:15 Predniso
[2020-11-01 20:50] LABS: Glucose Point of Care 228 (65-105)
[2020-11-01] MEDS: ALPRAZolam (*CRX) 0.5 MG TABLET 1 MG PO (21:39)
[2020-11-02] VITALS (9 sets, daily range): BP systolic 153–170; BP diastolic 58–77; PULSE 43–83; RESP 16–24; TEMP 36.1–36.5; O2SAT 93–100
[2020-11-02] MEDS: ALPRAZolam (*CRX) 0.5 MG TABLET 1 MG PO ×2 (04:58→23:59)
[2020-11-02 06:20] LABS: Hematocrit 34.1 % (42.0-52.0); Hemoglobin 10.2 g/dL (14.0-18.0); Mean Corpuscular HGB Conc 29.9 g/dl (32-36); Mean Corpuscular Hemoglobin 25.9 pg (26-34); Mean Corpuscular Volume 86.5 fl (80-100); Mean Platelet Volume 9.2 fl (7.4-10.4); Platelet Count Result 309 k/mm3 (150-375); Red Blood Count 3.94 M/mm3 (4.6-6.20); Red Cell Distribution Width 14.6 % (11.5-14.5)
[2020-11-02 06:40] LABS: Alanine Aminotransferase 14 U/L (4-50); Albumin Level 3.2 g/dL (3.5-5.1); Alkaline Phosphatase 113 U/L (38-126); Anion Gap 5 mmol/L (8-16); Aspartate Amino Transferase 27 U/L (17-59); Bilirubin,Total 0.2 mg/dL (0.2-1.3); Blood Urea Nitrogen 17 mg/dL (9-20); Calcium 8.4 mg/dL (8.4-10.2); Carbon Dioxide 30 mmol/L (22-30); Chloride 102 mmol/L (98-107); Estimated CRCL calculation 57 ml/min; Estimated Glomerular Filt Rate > 60; Glucose 90 mg/dL (75-110); Magnesium 1.6 mg/dL (1.6-2.3); Potassium 4.2 mmol/L (3.4-5.0); Sodium 137 mmol/L (137-145)
--- NOTE | 2020-11-02 07:30 | PCOTNOTE ---
Attempted to see Patient for OT treatment session at this time. Patient is scheduled for surgery this P.M. Patient verbalized, 'I really don't feel like it right now, I'm so nervous about my surgery and have not slept . Will attempt again at a later time.
[2020-11-02 08:02] LABS: Glucose Point of Care 93 (65-105)
[2020-11-02] MEDS: METOPROLOL TARTRATE 25 MG TABLET BY MOUTH (08:38)
[2020-11-02] MEDS: SERTRALINE HCL 50 MG TABLET PO (08:38)
[2020-11-02] MEDS: GABAPENTIN 100 MG CAPSULE PO ×3 (08:39→17:50)
[2020-11-02 11:25] LABS: Glucose Point of Care 101 (65-105)
--- NOTE | 2020-11-02 11:27 | PM.IMPN ---
Progress Note: A&P Assessment and Plan (1) Osteomyelitis of left foot: Qualifiers: Osteomyelitis type: unspecified type Qualified Code(s): M86.9 - Osteomyelitis, unspecified Code(s): M86.9 - Osteomyelitis, unspecified Status: Acute Assessment and Plan: 11/02/20 11:27 patient is 74-year-old male with history of alcohol abuse, atrial fibrillation, chronic respiratory failure, diabetes, diabetes wound ulcer on right foot status post amputation of the right forefoot presented emergency depart pain, open sores on left foot along the previous forefoot amputation, there is open wound and some induration and erythema minimal drainage, there is no red streak, to further evaluate patient had a TRIPP which is essentially normal suggesting patient does not have peripheral vascular disease, wound culture is growing mix manjit, blood culture is growing MRSA, patient was started on vancomycin and imipenem for suspected osteomyelitis, on 10/27/2020 patient was seen by Dr. longo suspect MRSA bacteremia secondary to right foot infection recommending to continue vancomycin,d/c imipenem and favors BKA to control infection similarly Dr. Tee plastic surgeon also recommending BKA, on 10/29/20 patient was seen by Dr. Tee and patient has agreed to have BKA, it will be scheduled next week, will continue Vancomycin and after the surgery further recommendation to follow and patient will need rehab. if the event patient does not have surgery, patient was seen by Dr. Longo today and patient will need vancomycin until 12/05/2020. Today patient stats he has no complaints and doing well, patient is scheduled with surgery later today at 3PM he is been NPO since midnight and hungry, will follow-up after the surgery and further recommendation to follow, discussed with director of medicare patient will benefit from rehab with [facility] (2) Alcohol abuse: Code(s): F10.10 - Alcohol abuse, uncomplicated Status: Acute Assessment and Plan: Patient clinically stable will monitor with CIWA protocol (3) Persistent atrial fibrillation: Code(s): I48.19 - Other persistent atrial fibrillation Status: Acute Assessment and Plan: Rate is controlled patient is not systematically anticoagulant on aspirin full dose Subjective Date/time seen: 11/02/20 11:27 patient is 74-year-old male with history of alcohol abuse, atrial fibrillation, chronic respiratory failure, diabetes, diabetes wound ulcer on right foot status post amputation of the right forefoot presented emergency depart pain, open sores on left foot along the previous forefoot amputation, there is open wound and some induration and erythema minimal drainage, there is no red streak, to further evaluate patient had a TRIPP which is essentially normal suggesting patient does not have peripheral vascular disease, wound culture is growing mix manjit, blood culture is growing MRSA, patient was started on vancomycin and imipenem for suspected osteomyelitis, on 10/27/2020 patient was seen by Dr. longo suspect MRSA bacteremia secondary to right foot infection recommending to continue vancomycin,d/c imipenem and favors BKA to control infection similarly Dr. Tee plastic surgeon also recommending BKA, on 10/29/20 patient was seen by Dr. Tee and patient has agreed to have BKA, it will be scheduled next week, will continue Vancomycin and after the surgery further recommendation to follow and patient will need rehab. if the event patient does not have surgery, patient was seen by Dr. Longo today and patient will need vancomycin until 12/05/2020. Today patient stats he has no complaints and doing well, patient is scheduled with surgery later today at 3PM he is been NPO since midnight and hungry, will follow-up after the surgery and further recommendation to follow, discussed with director of medicare patient will benefit from rehab with [facility] Review of Systems Review of Systems: All systems reviewed
[2020-11-02] MEDS: LACTATED RINGERS 1,000 ML 30 ML IV CONT (12:55)
--- NOTE | 2020-11-02 13:20 | WPDANESEFPP ---
Anes - Eval Final PreProcedure Day of Procedure 11/02/20 13:20 Patient weight: normal Heart: regular rate and rhythm Lungs: clear to auscultation and normal air movement Airway: Mallampati scale class III Neurological: alert and oriented Last oral intake: >/= 8 hours ASA classification: IV Emergent: no Anesthetic plan: proceed Anesthesia type and monitoring: general LMA and standard monitoring Informed Consent: The patient's anesthetic plan and its attendant risks and benefits were discussed with the patient/family/POA. Questions were solicited and answers provided to the satisfaction of the patient/family/POA.
--- NOTE | 2020-11-02 14:11 | ECG_ITS ---
Measurements Intervals [place] Rate: 41 P: SC: 0 QRS: 10 QRSD: 91 T: 41 QT: 460 QTc: 383 Interpretive Statements ATRIAL FIBRILLATION WITH SLOW VENTRICULAR RESPONSE ANTEROSEPTAL INFARCT, AGE INDETERMINATE ABNORMAL ECG Electronically Signed On 11-02-2020 15:00:53 ASSISTANT QUALITY MANAGER by Yahir Lopez D.O.
--- NOTE | 2020-11-02 14:42 | WPDPN ---
Progress Note: A&P Additional Plan Surgery for BKA cancelled per anesthesia due to heart rate in the 20's - 30's. Objective Data Vital Signs Vital Signs: Vital Signs - 24 hr 11/01/20 15:44 11/01/20 20:00 11/01/20 21:13 Temperature Pulse Rate 52 L Respiratory Rate Blood Pressure Pulse Oximetry 98 99 11/01/20 21:53 11/01/20 22:21 11/02/20 05:15 Temperature 36.1 C L 36.3 C L Pulse Rate 99 83 Respiratory Rate 22 H 20 Blood Pressure 151/68 H 169/72 H Pulse Oximetry 52 L 98 99 11/02/20 08:35 11/02/20 08:38 11/02/20 08:45 Temperature Pulse Rate 48 L 56 L Respiratory Rate 16 Blood Pressure Pulse Oximetry 93 99 11/02/20 12:40 11/02/20 14:00 Temperature 36.5 C 36.2 C L Pulse Rate 44 L 43 L Respiratory Rate 24 H 16 Blood Pressure 170/77 H 153/58 H Pulse Oximetry 100 100 Intake/Output Intake/Output: Intake & Output 10/30/20 10/31/20 11/01/20 11/02/20 23:59 23:59 23:59 23:59 Intake Total 2190 1570 1950 0 Output Total 1725 2050 1400 1500 Balance 465 -480 550 -1500 Meds/Results Medications: Active Medications Generic Name Dose Route Start Last Admin Trade Name Freq PRN Reason Stop Dose Admin Albuterol 2.5 mg 10/25/20 03:40 Albuterol Sulfate Neb 2.5 Mg/3 Ml Inh INHALATION TIDRT PRN Shortness Of Breath Alprazolam 1 mg 10/25/20 00:44 11/02/20 04:58 Alprazolam (*Crx) 0.5 Mg Tablet PO 1 mg TID PRN Administration anxiety Aspirin 325 mg 10/25/20 09:00 11/02/20 08:37 Aspirin 325 Mg Enteric Tablet BY MOUTH Not Given DAILY KALPES[facility] Dextrose 12.5 gm 10/25/20 00:40 Dextrose 50% 25 Gm/50 Ml Syringe IV PUSH PRN PRN Hypoglycemia Protocol Docusate Sodium 100 mg 10/25/20 09:00 11/01/20 08:16 Docusate Sodium 100 Mg Capsule PO 100 mg DAILY KALPES[facility] Administration Fentanyl Citrate 25 mcg 11/02/20 13:20 Fentanyl Citrate Inj (*Crx) 100 Mcg/2 Ml Vial IV PUSH Q2M PRN Pain Folic Acid 1 mg 10/25/20 09:00 11/01/20 08:19 Folic Acid 1 Mg Tablet BY MOUTH 1 mg DAILY [facility] Administration Gabapentin 100 mg 10/25/20 09:00 11/02/20 08:39 Gabapentin 100 Mg Capsule PO 100 mg TID KALPES[facility] Administration Glucagon 1 mg 10/25/20 00:40 Glucagon For Inj 1 Mg Vial IM PRN PRN Hypoglycemia Protocol Glucose 15 gm 10/25/20 00:40 Glucose Oral Gel 15 Gm Of Glucse In 37.5 Gm Tube PO PRN PRN Hypoglycemia Protocol Dextrose 1,000 mls @ 100 mls/hr 10/25/20 00:40 Dextrose 5% 1,000 Ml IVPB PRN PRN Hypoglycemia Protocol Vancomycin HCl 1,250 mg in 250 mls @ 200 mls/hr 10/31/20 20:00 11/01/20 21:15 Vancomycin 1,250 Mg/D5w 250 Ml IVPB Infused Q24H [facility] Infusion Lactated Ringer's 1,000 mls @ 30 mls/hr 11/02/20 13:05 Lr - Lactated Ringers Iv IV CONT .Q24H KALPES[facility] Lactated Ringer's 1,000 mls @ 30 mls/hr 11/02/20 13:20 11/02/20 12:55 Lr - Lactated Ringers Iv IV CONT 30 mls/hr .Q24H [facility] Administration Lactated Ringer's 1,000 mls @ 30 mls/hr 11/02/20 13:20 Lr - Lactated Ringers Iv IV CONT .Q24H [facility] Insulin Aspart 2 - 5 units 10/25/20 08:00 11/02/20 11:40 Insulin Aspart (*Bkc) 100 Units/Ml SUB-Q Not Given TIDWM [facility] Protocol Ipratropium [place] 0.5 mg 10/25/20 03:41 Ipratropium Br 0.02% Inh Soln 0.5 Mg/2.5 Ml Vial INHALATION TIDRT PRN Shortness Of Breath Lactic Acid 1 applic 10/26/20 09:00 11/01/20 08:28 Lactic Acid 12% Lotion 225 Btl TOPICAL 1 applic QAM [facility] Administration Magnesium Oxide 400 mg 10/26/20 09:05 11/01/20 08:19 Magnesium Oxide 400 Mg Tablet PO 400 mg QAM [facility] Administration Metoprolol Tartrate 25 mg 10/25/20 09:00 11/02/20 08:38 Metoprolol Tartrate 25 Mg Tablet BY MOUTH 25 mg Q12HR [facility] Administration Multivitamins Therapeutic 1 tablet 10/25/20 09:00 11/01/20 08:19 Multivitamins Therapeutic Tab (*Bkc) PO 1 tablet DAILY [facility] Administrati
--- NOTE | 2020-11-02 15:24 | PM.CNCAR ---
Assessment and Plan Assessment and plan (1) Atrial fibrillation with slow ventricular response: Code(s): I48.91 - Unspecified atrial fibrillation Status: Acute Assessment and Plan: He is not symptomatic while bradycardic. He is dizzy at times but this is only whenever he stands up and likely secondary to orthostasis. At this point would simply stop his metoprolol and continue him on nuclear monitoring technician. This should not significantly delayed his surgery. Will also check a T4 level. There is no indication for permanent pacemaker at this point (2) Osteomyelitis of left foot: Qualifiers: Osteomyelitis type: unspecified type Qualified Code(s): M86.9 - Osteomyelitis, unspecified Code(s): M86.9 - Osteomyelitis, unspecified Status: Acute Assessment and Plan: Awaiting amputation (3) HTN (hypertension): Qualifiers: Hypertension type: essential hypertension Qualified Code(s): I10 - Essential (primary) hypertension Code(s): I10 - Essential (primary) hypertension Status: Chronic Assessment and Plan: Above goal (4) Alcoholism: Code(s): F10.20 - Alcohol dependence, uncomplicated Status: Chronic History of Present Illness History of Present Illness Consult date/time: 11/02/20 15:24 Requesting physician: Ayo Foy MD Consult reason: Other (Bradycardia) Reason For Visit: Left Foot osteomyelitis Narrative: Date of service 11/02/2020 History patient is a 74-year-old male who has a history of osteomyelitis with his left foot. I actually saw this patient in consultation in June for a very similar reason which was atrial fibrillation with slow ventricular response. At that time I would reduce his metoprolol than 25 mg p.o. b.i.d.. He was readmitted because of worsening foot pain near the previous amputation site. There was concern about infection and in fact he does have an osteomyelitis in the left foot. He was scheduled for a left BKA today and while with anesthesia, his heart rate dropped briefly down into the 20s while in atrial fibrillation and therefore his surgery was postponed. He currently feels fine and denies any chest pain, syncope. He does have lightheadedness if he stands up too fast but not at other times. No paroxysmal nocturnal dyspnea, orthopnea, edema or palpitations. Review of Systems Review of Systems: All systems reviewed & are unremarkable except as noted in HPI and below Constitutional: Constitutional: Reports weakness Eyes: Eyes: Denies blurry vision ENT: Reports Normal hearing present Cardiovascular: Cardiovascular: Denies chest pain Respiratory: Respiratory: Reports dyspnea Gastrointestinal: Gastrointestinal: Denies abdominal pain Genitourinary: Genitourinary: Denies dysuria Musculoskeletal: Musculoskeletal: Denies neck pain Integumentary/Breasts: Skin/Breast: Denies dry skin Neurologic: Denies headache(s) Psychiatric: Psychiatric: Denies anxiety and Denies confusion Endocrine: Endocrine: Denies fatigue Hematologic/Lymphatic: Hematologic/Lymphatic: Denies easy bleeding and Denies easy bruising Allergic/Immunologic: Allergic/Immunologic: Denies GI upset with certain foods and Denies lip swelling PMFSH Past Medical History Medical History Alcohol abuse Anxiety Asthma Benign prostatic hyperplasia Cerebrovascular accident Chronic anemia Chronic obstructive pulmonary disease Chronic respiratory failure with hypoxia, on home O2 therapy Depression Diabetic peripheral neuropathy Diastolic congestive heart failure Former smoker Gastroesophageal reflux disease Hearing loss Hypertension Ichthyosis vulgaris Irritable bowel syndrome Mixed hyperlipidemia Osteoarthritis Osteomyelitis History of osteomyelitis of both feet requiring multiple amputations. Persistent atrial fibrillation Not on long-term anticoagulation. Takes aspirin 3
[2020-11-02] MEDS: predniSONE 2.5 MG TABLET PO (15:31)
[2020-11-02] MEDS: LACTIC ACID 12% LOTION 225 BTL 1 APPLIC TOPICAL (15:31)
[2020-11-02] MEDS: FOLIC ACID 1 MG TABLET BY MOUTH (15:31)
[2020-11-02] MEDS: DOCUSATE SODIUM 100 MG CAPSULE PO (15:31)
[2020-11-02] MEDS: SILVERGEL (ELTA) 45 ML 1 APPLIC TOPICAL (15:31)
[2020-11-02] MEDS: MULTIVITAMINS THERAPEUTIC TAB (*BKC) 1 TABLET PO (15:32)
[2020-11-02] MEDS: PANTOPRAZOLE 40 MG TABLET PO ×2 (15:32→17:50)
[2020-11-02] MEDS: SIMVASTATIN 10 MG TABLET PO (15:32)
[2020-11-02] MEDS: MAGNESIUM OXIDE 400 MG TABLET PO (15:32)
[2020-11-02 17:13] LABS: T4 Thyroxine 5.86 ug/dL (5.53-11.0)
[2020-11-02 17:24] LABS: Glucose Point of Care 154 (65-105)
[2020-11-02] MEDS: traMADol HCL (*CRX) 50 MG TABLET PO (18:35)
[2020-11-02 20:18] LABS: Glucose Point of Care 200 (65-105)
[2020-11-03] VITALS (10 sets, daily range): BP systolic 145–146; BP diastolic 48–77; PULSE 50–105; RESP 18–20; TEMP 35.8–36.2; O2SAT 96–100
--- NOTE | 2020-11-03 02:26 | ECG_ITS ---
Measurements Intervals [place] Rate: 49 P: [place]: 0 QRS: 38 QRSD: 88 T: 56 QT: 432 QTc: 392 Interpretive Statements ATRIAL FIBRILLATION WITH SLOW VENTRICULAR RESPONSE BORDERLINE R WAVE PROGRESSION, ANTERIOR LEADS ABNORMAL ECG Electronically Signed On 11-03-2020 7:16:11 LEAD CASTER HELPER by Yahir Lopez D.O.
[2020-11-03 05:57] LABS: Hematocrit 34.2 % (42.0-52.0); Hemoglobin 10.3 g/dL (14.0-18.0); Mean Corpuscular HGB Conc 30.1 g/dl (32-36); Mean Corpuscular Hemoglobin 25.6 pg (26-34); Mean Corpuscular Volume 85.1 fl (80-100); Mean Platelet Volume 8.7 fl (7.4-10.4); Platelet Count Result 301 k/mm3 (150-375); Red Blood Count 4.02 M/mm3 (4.6-6.20); Red Cell Distribution Width 14.5 % (11.5-14.5); White Blood Count 8.8 K/mm3 (4.5-10.0)
[2020-11-03 06:10] LABS: Alanine Aminotransferase 14 U/L (4-50); Albumin Level 3.2 g/dL (3.5-5.1); Alkaline Phosphatase 113 U/L (38-126); Anion Gap 1 mmol/L (8-16); Aspartate Amino Transferase 29 U/L (17-59); Bilirubin,Total 0.2 mg/dL (0.2-1.3); Blood Urea Nitrogen 14 mg/dL (9-20); Calcium 8.3 mg/dL (8.4-10.2); Carbon Dioxide 33 mmol/L (22-30); Chloride 103 mmol/L (98-107); Estimated CRCL calculation 64 ml/min; Estimated Glomerular Filt Rate > 60; Glucose 87 mg/dL (75-110); Magnesium 1.8 mg/dL (1.6-2.3); Potassium 4.2 mmol/L (3.4-5.0); Sodium 137 mmol/L (137-145)
[2020-11-03 07:26] LABS: Glucose Point of Care 90 (65-105)
[2020-11-03] MEDS: MULTIVITAMINS THERAPEUTIC TAB (*BKC) 1 TABLET PO (08:33)
[2020-11-03] MEDS: PANTOPRAZOLE 40 MG TABLET PO ×2 (08:33→17:27)
[2020-11-03] MEDS: SERTRALINE HCL 50 MG TABLET PO (08:33)
[2020-11-03] MEDS: FOLIC ACID 1 MG TABLET BY MOUTH (08:33)
[2020-11-03] MEDS: MAGNESIUM OXIDE 400 MG TABLET PO (08:33)
[2020-11-03] MEDS: DOCUSATE SODIUM 100 MG CAPSULE PO (08:33)
[2020-11-03] MEDS: SIMVASTATIN 10 MG TABLET PO (08:33)
[2020-11-03] MEDS: ASPIRIN 325 MG ENTERIC TABLET BY MOUTH (08:33)
[2020-11-03] MEDS: GABAPENTIN 100 MG CAPSULE PO ×3 (08:34→17:27)
[2020-11-03] MEDS: predniSONE 2.5 MG TABLET PO (08:34)
[2020-11-03] MEDS: LACTIC ACID 12% LOTION 225 BTL 1 APPLIC TOPICAL (08:36)
[2020-11-03] MEDS: SILVERGEL (ELTA) 45 ML 1 APPLIC TOPICAL (08:37)
[2020-11-03 11:49] LABS: Glucose Point of Care 124 (65-105)
--- NOTE | 2020-11-03 12:43 | PM.PNCARD ---
Progress Note: A&P Assessment and Plan (1) Atrial fibrillation with slow ventricular response: Code(s): I48.91 - Unspecified atrial fibrillation Status: Acute Assessment and Plan: Heart rate is better after stopping metoprolol. This should not significantly delayed his surgery. T4 is normal.There is no indication for permanent pacemaker at this point . No further cardiac recommendations at this point (2) Osteomyelitis of left foot: Qualifiers: Osteomyelitis type: unspecified type Qualified Code(s): M86.9 - Osteomyelitis, unspecified Code(s): M86.9 - Osteomyelitis, unspecified Status: Acute Assessment and Plan: Awaiting amputation (3) HTN (hypertension): Qualifiers: Hypertension type: essential hypertension Qualified Code(s): I10 - Essential (primary) hypertension Code(s): I10 - Essential (primary) hypertension Status: Chronic Assessment and Plan: Above goal (4) Alcoholism: Code(s): F10.20 - Alcohol dependence, uncomplicated Status: Chronic Subjective Date/time seen: 11/03/20 12:43 Interval history: 74-year-old with osteomyelitis. Date of service 11/03/2020: Wants to know when he is getting his amputation. Denies any chest pain or shortness of breath. Review of Systems Review of Systems: All systems reviewed & are unremarkable except as noted in HPI and below Constitutional: Constitutional: Denies fatigue, Denies headache(s) and Reports weakness Eyes: Eyes: Denies blurry vision ENT: Reports Normal hearing present, Denies headache(s), Denies lip swelling and Denies neck pain Cardiovascular: Cardiovascular: Denies chest pain and Reports dyspnea Respiratory: Respiratory: Reports dyspnea Gastrointestinal: Gastrointestinal: Denies abdominal pain Genitourinary: Genitourinary: Denies dysuria Musculoskeletal: Musculoskeletal: Denies neck pain Integumentary/Breasts: Skin/Breast: Denies dry skin Neurologic: Reports Normal hearing present, Denies confusion, Denies headache(s) and Reports weakness Psychiatric: Psychiatric: Denies anxiety and Denies confusion Endocrine: Endocrine: Denies fatigue Hematologic/Lymphatic: Hematologic/Lymphatic: Denies easy bleeding and Denies easy bruising Allergic/Immunologic: Allergic/Immunologic: Denies GI upset with certain foods and Denies lip swelling Exam Narrative: Exam Narrative: Alert oriented appears comfortable and in no acute distress appears stated age Const: General: comfortable and no acute distress; No confusion Orientation/consciousness: No confusion HENMT: General nose exam: Normal nares present Eyes: Sclera: sclerae normal Neck: Neck: no JVD Chest: Other: No reproducible chest wall pain to palpation Resp: Auscultation: diminished lung sounds Cardio: Rate: regular rate Rhythm: abnormal rhythm irregularly irregular Skin: General skin exam: normal color Neuro: General: No confusion Cranial nerves: Yes Normal hearing present Cognition (Neuro): normal cognition Speech: normal speech Extrem: General: no edema Other: Left foot is wrapped Psych: Affect: normal affect Objective Data Vital Signs Vital Signs: Vital Signs - 24 hr 11/02/20 14:00 11/02/20 16:04 11/02/20 20:00 Temperature 36.2 C L Pulse Rate 43 L 48 L 57 L Respiratory Rate 16 Blood Pressure 153/58 H Pulse Oximetry 100 11/02/20 20:32 11/03/20 00:00 11/03/20 04:00 Temperature 36.1 C L Pulse Rate 70 78 51 L Respiratory Rate 18 Blood Pressure 163/68 H Pulse Oximetry 99 11/03/20 04:53 11/03/20 08:00 11/03/20 08:37 Temperature 36.2 C L Pulse Rate 50 L 105 H Respiratory Rate 18 18 Blood Pressure 145/48 H Pulse Oximetry 100 98 Intake/Output Intake/Output: Intake & Output 10/31/20 11/01/20 11/02/20 11/03/20 23:59 23:59 23:59 23:59 Intake Total 1570 1950 730 430 Output Total 2050 1400 1500 200 Balance -480 550 -770 230 Me
--- NOTE | 2020-11-03 12:47 | WPDPN ---
Progress Note: A&P Assessment and Plan (1) Osteomyelitis of left foot: Qualifiers: Osteomyelitis type: unspecified type Qualified Code(s): M86.9 - Osteomyelitis, unspecified Code(s): M86.9 - Osteomyelitis, unspecified Status: Acute Assessment and Plan: Plans continue for left BKA due to osteomyelitis. Cleared by cardiology. Will reschedule (2) Atrial fibrillation with slow ventricular response: Code(s): I48.91 - Unspecified atrial fibrillation Status: Acute Assessment and Plan: Cardiol indicates pt may go ahead with surgery. Suggest stopping metoprolol Time Spent With Patient Time with patient: 15 - 25 minutes Exam Narrative: Exam Narrative: Jovial and gregarious today. Says he was told his heart rate was 99 and could have his surgery. Cardiology note appreciated. It is recommended he go off the metoprolol. He has a history of asymptomatic bradycardia. No pacer was recommended. Extrem: Other: Left foot wound is improving. It shallow, but into sub cutis. non viable bone visible at the left great toe amputation site. No cellulitis. Objective Data Vital Signs Vital Signs: Vital Signs - 24 hr 11/02/20 14:00 11/02/20 16:04 11/02/20 20:00 Temperature 36.2 C L Pulse Rate 43 L 48 L 57 L Respiratory Rate 16 Blood Pressure 153/58 H Pulse Oximetry 100 11/02/20 20:32 11/03/20 00:00 11/03/20 04:00 Temperature 36.1 C L Pulse Rate 70 78 51 L Respiratory Rate 18 Blood Pressure 163/68 H Pulse Oximetry 99 11/03/20 04:53 11/03/20 08:00 11/03/20 08:37 Temperature 36.2 C L Pulse Rate 50 L 105 H Respiratory Rate 18 18 Blood Pressure 145/48 H Pulse Oximetry 100 98 Intake/Output Intake/Output: Intake & Output 10/31/20 11/01/20 11/02/20 11/03/20 23:59 23:59 23:59 23:59 Intake Total 1570 1950 730 430 Output Total 0 1400 1500 200 Balance -480 550 -770 230 Meds/Results Medications: Active Medications Generic Name Dose Route Start Last Admin Trade Name Freq PRN Reason Stop Dose Admin Albuterol 2.5 mg 10/25/20 03:40 Albuterol Sulfate Neb 2.5 Mg/3 Ml Inh INHALATION TIDRT PRN Shortness Of Breath Alprazolam 1 mg 10/25/20 00:44 11/02/20 23:59 Alprazolam (*Crx) 0.5 Mg Tablet PO 1 mg TID PRN Administration anxiety Aspirin 325 mg 10/25/20 09:00 11/03/20 08:33 Aspirin 325 Mg Enteric Tablet BY MOUTH 325 mg DAILY [facility] Administration Dextrose 12.5 gm 10/25/20 00:40 Dextrose 50% 25 Gm/50 Ml Syringe IV PUSH PRN PRN Hypoglycemia Protocol Docusate Sodium 100 mg 10/25/20 09:00 11/03/20 08:33 Docusate Sodium 100 Mg Capsule PO 100 mg DAILY [facility] Administration Fentanyl Citrate 25 mcg 11/02/20 13:20 Fentanyl Citrate Inj (*Crx) 100 Mcg/2 Ml Vial IV PUSH Q2M PRN Pain Folic Acid 1 mg 10/25/20 09:00 11/03/20 08:33 Folic Acid 1 Mg Tablet BY MOUTH 1 mg DAILY [facility] Administration Gabapentin 100 mg 10/25/20 09:00 11/03/20 12:28 Gabapentin 100 Mg Capsule PO 100 mg TID [facility] Administration Glucagon 1 mg 10/25/20 00:40 Glucagon For Inj 1 Mg Vial IM PRN PRN Hypoglycemia Protocol Glucose 15 gm 10/25/20 00:40 Glucose Oral Gel 15 Gm Of Glucse In 37.5 Gm Tube PO PRN PRN Hypoglycemia Protocol Dextrose 1,000 mls @ 100 mls/hr 10/25/20 00:40 Dextrose 5% 1,000 Ml IVPB PRN PRN Hypoglycemia Protocol Vancomycin HCl 1,250 mg in 250 mls @ 200 mls/hr 10/31/20 20:00 11/02/20 21:30 Vancomycin 1,250 Mg/D5w 250 Ml IVPB Infused Q24H [facility] Infusion Lactated Ringer's 1,000 mls @ 30 mls/hr 11/02/20 13:20 11/02/20 15:28 Lr - Lactated Ringers Iv IV CONT Not Given .Q24H [facility] Insulin Aspart 2 - 5 units 10/25/20 08:00 11/03/20 11:52 Insulin Aspart (*Bkc) 100 Units/Ml SUB-Q Not Given TIDWM [facility] Protocol Ipratropium [place] 0.5 mg 10/25/20 03:41 Ipratropium Br 0.0
--- NOTE | 2020-11-03 13:42 | PM.IMPN ---
Progress Note: A&P Assessment and Plan (1) Osteomyelitis of left foot: Qualifiers: Osteomyelitis type: unspecified type Qualified Code(s): M86.9 - Osteomyelitis, unspecified Code(s): M86.9 - Osteomyelitis, unspecified Status: Acute Assessment and Plan: 11/03/20 13:42 patient is 74-year-old male with history of alcohol abuse, atrial fibrillation, chronic respiratory failure, diabetes, diabetes wound ulcer on right foot status post amputation of the right forefoot presented emergency depart pain, open sores on left foot along the previous forefoot amputation, there is open wound and some induration and erythema minimal drainage, there is no red streak, to further evaluate patient had a TRIPP which is essentially normal suggesting patient does not have peripheral vascular disease, wound culture is growing mix manjit, blood culture is growing MRSA, patient was started on vancomycin and imipenem for suspected osteomyelitis, on 10/27/2020 patient was seen by Dr. longo suspect MRSA bacteremia secondary to right foot infection recommending to continue vancomycin,d/c imipenem and favors BKA to control infection similarly Dr. Tee plastic surgeon also recommending BKA, on 10/29/20 patient was seen by Dr. Tee and patient has agreed to have BKA, it will be scheduled next week, will continue Vancomycin and after the surgery further recommendation to follow and patient will need rehab. if the event patient does not have surgery, patient was seen by Dr. Longo today and patient will need vancomycin until 12/05/2020. on 11/02 was taken to OR however patient was in A. Fib and bradycardia and surgery was postponed, patient was seen by venipuncturist does not need pacemaker rather hold his metoprolol, 11/03 today HR is trending patient clinically stable patient was seen by his surgeon and will reschedule surgery possibly early next week, patient clinically stable has no complaint will continue to monitor (2) Alcohol abuse: Code(s): F10.10 - Alcohol abuse, uncomplicated Status: Acute Assessment and Plan: Patient clinically stable will monitor with CIWA protocol (3) Persistent atrial fibrillation: Code(s): I48.19 - Other persistent atrial fibrillation Status: Acute Assessment and Plan: Rate is controlled patient is not systematically anticoagulant on aspirin full dose Subjective Date/time seen: 11/03/20 13:42 patient is 74-year-old male with history of alcohol abuse, atrial fibrillation, chronic respiratory failure, diabetes, diabetes wound ulcer on right foot status post amputation of the right forefoot presented emergency depart pain, open sores on left foot along the previous forefoot amputation, there is open wound and some induration and erythema minimal drainage, there is no red streak, to further evaluate patient had a TRIPP which is essentially normal suggesting patient does not have peripheral vascular disease, wound culture is growing mix manjit, blood culture is growing MRSA, patient was started on vancomycin and imipenem for suspected osteomyelitis, on 10/27/2020 patient was seen by Dr. longo suspect MRSA bacteremia secondary to right foot infection recommending to continue vancomycin,d/c imipenem and favors BKA to control infection similarly Dr. Tee plastic surgeon also recommending BKA, on 10/29/20 patient was seen by Dr. Tee and patient has agreed to have BKA, it will be scheduled next week, will continue Vancomycin and after the surgery further recommendation to follow and patient will need rehab. if the event patient does not have surgery, patient was seen by Dr. Longo today and patient will need vancomycin until 12/05/2020. on 11/02 was taken to OR however patient was in A. Fib and bradycardia and surgery was postponed, patient was seen by venipuncturist does not need pacemaker rather hold his metoprolol, 11/03 today HR is trending patient clinically stable patient was seen by his
--- NOTE | 2020-11-03 13:55 | WPDINFPN2 ---
Progress Note: A&P Assessment and Plan (1) MRSA (methicillin resistant Staphylococcus aureus) septicemia: Code(s): A41.02 - Sepsis due to Methicillin resistant Staphylococcus aureus Status: Acute Assessment and Plan: 1. MRSA bacteremia with infection, R foot source, with chronic osteomyelitis very likely. Microbiologic cure 2. Normal ABIs, but suspect small vessel disease 3. DM, well controlled, long standing 4. AF with bradycardia REC Vanc #10, target trough 15-20. BKA to be rescheduled, and still plan on IV rx about 2 days post op, then oral therapy (e.g. [id number]) through 11/15 Subjective Date/time seen: 11/03/20 13:55 Interval history: no new complaints Exam Narrative: Exam Narrative: appears chronically ill, afebrile Const: General: no acute distress Resp: Effort & Inspection: normal respiratory effort Auscultation: clear to auscultation bilaterally Cardio: Rate: regular rate Rhythm: regular rhythm Heart sounds: no murmurs GI: Inspection: non-distended GI Palp: Yes Soft to palpation and No Tenderness to palpation present (GI) Objective Data Vital Signs Vital Signs: Vital Signs - 24 hr 11/02/20 14:00 11/02/20 16:04 11/02/20 20:00 Temperature 36.2 C L Pulse Rate 43 L 48 L 57 L Respiratory Rate 16 Blood Pressure 153/58 H Pulse Oximetry 100 11/02/20 20:32 11/03/20 00:00 11/03/20 04:00 Temperature 36.1 C L Pulse Rate 70 78 51 L Respiratory Rate 18 Blood Pressure 163/68 H Pulse Oximetry 99 11/03/20 04:53 11/03/20 08:00 11/03/20 08:37 Temperature 36.2 C L Pulse Rate 50 L 105 H Respiratory Rate 18 18 Blood Pressure 145/48 H Pulse Oximetry 100 98 Intake/Output Intake/Output: Intake & Output 10/31/20 11/01/20 11/02/20 11/03/20 23:59 23:59 23:59 23:59 Intake Total 1570 1950 730 430 Output Total 2050 1400 1500 200 Balance -480 550 -770 230 Meds/Results Medications: Active Medications Generic Name Dose Route Start Last Admin Trade Name Freq PRN Reason Stop Dose Admin Albuterol 2.5 mg 10/25/20 03:40 Albuterol Sulfate Neb 2.5 Mg/3 Ml Inh INHALATION TIDRT PRN Shortness Of Breath Alprazolam 1 mg 10/25/20 00:44 11/02/20 23:59 Alprazolam (*Crx) 0.5 Mg Tablet PO 1 mg TID PRN Administration anxiety Aspirin 325 mg 10/25/20 09:00 11/03/20 08:33 Aspirin 325 Mg Enteric Tablet BY MOUTH 325 mg DAILY [facility] Administration Dextrose 12.5 gm 10/25/20 00:40 Dextrose 50% 25 Gm/50 Ml Syringe IV PUSH PRN PRN Hypoglycemia Protocol Docusate Sodium 100 mg 10/25/20 09:00 11/03/20 08:33 Docusate Sodium 100 Mg Capsule PO 100 mg DAILY [facility] Administration Fentanyl Citrate 25 mcg 11/02/20 13:20 Fentanyl Citrate Inj (*Crx) 100 Mcg/2 Ml Vial IV PUSH Q2M PRN Pain Folic Acid 1 mg 10/25/20 09:00 11/03/20 08:33 Folic Acid 1 Mg Tablet BY MOUTH 1 mg DAILY [facility] Administration Gabapentin 100 mg 10/25/20 09:00 11/03/20 12:28 Gabapentin 100 Mg Capsule PO 100 mg TID [facility] Administration Glucagon 1 mg 10/25/20 00:40 Glucagon For Inj 1 Mg Vial IM PRN PRN Hypoglycemia Protocol Glucose 15 gm 10/25/20 00:40 Glucose Oral Gel 15 Gm Of Glucse In 37.5 Gm Tube PO PRN PRN Hypoglycemia Protocol Dextrose 1,000 mls @ 100 mls/hr 10/25/20 00:40 Dextrose 5% 1,000 Ml IVPB PRN PRN Hypoglycemia Protocol Vancomycin HCl 1,250 mg in 250 mls @ 200 mls/hr 10/31/20 20:00 11/02/20 21:30 Vancomycin 1,250 Mg/D5w 250 Ml IVPB Infused Q24H [facility] Infusion Lactated Ringer's 1,000 mls @ 30 mls/hr 11/02/20 13:20 11/02/20 15:28 Lr - Lactated Ringers Iv IV CONT Not Given .Q24H [facility] Insulin Aspart 2 - 5 units 10/25/20 08:00 11/03/20 11:52 Insulin Aspart (*Bkc) 100 Units/Ml SUB-Q Not Given TIDWM [facility] Protocol Ipratropium [place] 0.5 mg 10/25/20 03:41 Ipratropium Br 0.02% Inh Soln 0.5 Mg/2.5 Ml Vial INHA
[2020-11-03 17:06] LABS: Glucose Point of Care 131 (65-105)
[2020-11-03 19:58] LABS: Vancomycin Trough 12.1 ug/mL (10.0-20.0)
[2020-11-03 20:28] LABS: Glucose Point of Care 164 (65-105)
[2020-11-03] MEDS: ALPRAZolam (*CRX) 0.5 MG TABLET 1 MG PO (22:50)
[2020-11-04] VITALS (9 sets, daily range): BP systolic 128–167; BP diastolic 42–96; PULSE 46–137; RESP 20–22; TEMP 36.1–36.4; O2SAT 96–100
[2020-11-04 05:36] LABS: Hematocrit 34.3 % (42.0-52.0); Hemoglobin 10.3 g/dL (14.0-18.0); Mean Corpuscular Hemoglobin 25.8 pg (26-34); Mean Corpuscular Volume 85.8 fl (80-100); Platelet Count Result 286 k/mm3 (150-375); Red Cell Distribution Width 14.4 % (11.5-14.5); White Blood Count 8.5 K/mm3 (4.5-10.0)
[2020-11-04 05:47] LABS: Alanine Aminotransferase 13 U/L (4-50); Alkaline Phosphatase 113 U/L (38-126); Anion Gap 2 mmol/L (8-16); Aspartate Amino Transferase 25 U/L (17-59); Bilirubin,Total 0.3 mg/dL (0.2-1.3); Blood Urea Nitrogen 18 mg/dL (9-20); Calcium 7.9 mg/dL (8.4-10.2); Carbon Dioxide 30 mmol/L (22-30); Chloride 104 mmol/L (98-107); Estimated CRCL calculation 64 ml/min; Estimated Glomerular Filt Rate > 60; Glucose 91 mg/dL (75-110); Magnesium 1.7 mg/dL (1.6-2.3); Potassium 4.3 mmol/L (3.4-5.0); Sodium 136 mmol/L (137-145)
[2020-11-04 07:59] LABS: Glucose Point of Care 89 (65-105)
[2020-11-04] MEDS: GABAPENTIN 100 MG CAPSULE PO ×3 (08:05→17:09)
[2020-11-04] MEDS: MAGNESIUM OXIDE 400 MG TABLET PO (08:05)
[2020-11-04] MEDS: LACTIC ACID 12% LOTION 225 BTL 1 APPLIC TOPICAL (08:05)
[2020-11-04] MEDS: ASPIRIN 325 MG ENTERIC TABLET BY MOUTH (08:05)
[2020-11-04] MEDS: predniSONE 2.5 MG TABLET PO (08:05)
[2020-11-04] MEDS: MULTIVITAMINS THERAPEUTIC TAB (*BKC) 1 TABLET PO (08:05)
[2020-11-04] MEDS: FOLIC ACID 1 MG TABLET BY MOUTH (08:05)
[2020-11-04] MEDS: DOCUSATE SODIUM 100 MG CAPSULE PO (08:05)
[2020-11-04] MEDS: PANTOPRAZOLE 40 MG TABLET PO ×2 (08:06→17:09)
[2020-11-04] MEDS: SERTRALINE HCL 50 MG TABLET PO (08:06)
[2020-11-04] MEDS: SILVERGEL (ELTA) 45 ML 1 APPLIC TOPICAL (08:06)
[2020-11-04] MEDS: SIMVASTATIN 10 MG TABLET PO (08:06)
--- NOTE | 2020-11-04 10:37 | PM.PNCARD ---
Progress Note: A&P Additional Plan 74-year-old man with: Chronic atrial fibrillation apparently has significant AV node dysfunction as he does not require any medication at all for heart rate control. He was concerning lead bradycardic but not symptomatic least so. He is reasonable candidate for amputation that is planned. No other cardiac recommendations at this time we will follow the patient after surgery to ensure that there was no cardiac issues arise. Master Eric MD [facility] Subjective Date/time seen: Date of service: 11/04/20 10:37 Interval history: Follow-up visit in this 74-year-old man with chronic atrial fibrillation. Patient had been on beta-wily treatment for rate control that has been stopped he appears to not require any medication for heart rate control at this time. Principal reason for hospitalization is osteomyelitis and need for [id number] amputation. Surgery was canceled yesterday with with concern regarding bradycardia. Dr. Bob has cleared the patient for surgery. Of he tells me that it is probably not going to happen until sometime next week. Exam Narrative: Exam Narrative: Alert oriented appears comfortable and in no acute distress appears stated age Const: General: comfortable and no acute distress; No confusion Orientation/consciousness: No confusion HENMT: General nose exam: Normal nares present Eyes: Sclera: sclerae normal Neck: Neck: no JVD Chest: Other: No reproducible chest wall pain to palpation Resp: Auscultation: diminished lung sounds Cardio: Rate: regular rate Rhythm: abnormal rhythm irregularly irregular Skin: General skin exam: normal color Neuro: General: No confusion Cranial nerves: Yes Normal hearing present Cognition (Neuro): normal cognition Speech: normal speech Extrem: General: no edema Other: Left foot is wrapped Psych: Affect: normal affect Objective Data Vital Signs Vital Signs: Vital Signs - 24 hr 11/03/20 12:00 11/03/20 14:00 11/03/20 16:00 Temperature 35.8 C L Pulse Rate 103 H 85 63 Respiratory Rate 18 Blood Pressure Pulse Oximetry 99 11/03/20 20:00 11/03/20 21:56 11/04/20 00:00 Temperature 36.1 C L Pulse Rate 70 62 70 Respiratory Rate 20 Blood Pressure 146/77 H Pulse Oximetry 96 11/04/20 04:00 11/04/20 06:00 11/04/20 08:00 Temperature 36.4 C Pulse Rate 46 L 51 L 54 L Respiratory Rate 21 H Blood Pressure 128/42 L Pulse Oximetry 100 Intake/Output Intake/Output: Intake & Output 11/01/20 11/02/20 11/03/20 11/04/20 23:59 23:59 23:59 23:59 Intake Total 9743 952 9945 850 Output Total 1400 3862 508 8016 Balance 550 -770 720 -150 Meds/Results Medications: Active Medications Generic Name Dose Route Start Last Admin Trade Name Freq PRN Reason Stop Dose Admin Albuterol 2.5 mg 10/25/20 03:40 Albuterol Sulfate Neb 2.5 Mg/3 Ml Inh INHALATION TIDRT PRN Shortness Of Breath Alprazolam 1 mg 10/25/20 00:44 11/03/20 22:50 Alprazolam (*Crx) 0.5 Mg Tablet PO 1 mg TID PRN Administration anxiety Aspirin 325 mg 10/25/20 09:00 11/04/20 08:05 Aspirin 325 Mg Enteric Tablet BY MOUTH 325 mg DAILY KALPESH Administration Dextrose 12.5 gm 10/25/20 00:40 Dextrose 50% 25 Gm/50 Ml Syringe IV PUSH PRN PRN Hypoglycemia Protocol Docusate Sodium 100 mg 10/25/20 09:00 11/04/20 08:05 Docusate Sodium 100 Mg Capsule PO 100 mg DAILY KALPESH Administration Fentanyl Citrate 25 mcg 11/02/20 13:20 Fentanyl Citrate Inj (*Crx) 100 Mcg/2 Ml Vial IV PUSH Q2M PRN Pain Folic Acid 1 mg 10/25/20 09:00 11/04/20 08:05 Folic Acid 1 Mg Tablet BY MOUTH 1 mg DAILY KALPESH Administration Gabapentin 100 mg 10/25/20 09:00 11/04/20 08:05 Gabapentin 100 Mg Capsule PO 100 mg TID KALPESH Administration Glucagon 1 mg 10/25/20 00:40 Glucagon For Inj 1 Mg Vial IM PRN PRN Hypoglycemia Protocol Glucose 15 gm 1
[2020-11-04 12:53] LABS: Glucose Point of Care 183 (65-105)
--- NOTE | 2020-11-04 13:17 | PM.IMPN ---
Progress Note: A&P Assessment and Plan (1) Osteomyelitis of left foot: Qualifiers: Osteomyelitis type: unspecified type Qualified Code(s): M86.9 - Osteomyelitis, unspecified Code(s): M86.9 - Osteomyelitis, unspecified Status: Acute Assessment and Plan: 11/04/20 13:17 patient is 74-year-old male with history of alcohol abuse, atrial fibrillation, chronic respiratory failure, diabetes, diabetes wound ulcer on right foot status post amputation of the right forefoot presented emergency depart pain, open sores on left foot along the previous forefoot amputation, there is open wound and some induration and erythema minimal drainage, there is no red streak, to further evaluate patient had a TRIPP which is essentially normal suggesting patient does not have peripheral vascular disease, wound culture is growing mix manjit, blood culture is growing MRSA, patient was started on vancomycin and imipenem for suspected osteomyelitis, on 10/27/2020 patient was seen by Dr. longo suspect MRSA bacteremia secondary to right foot infection recommending to continue vancomycin,d/c imipenem and favors BKA to control infection similarly Dr. Tee plastic surgeon also recommending BKA, on 10/29/20 patient was seen by Dr. Tee and patient has agreed to have BKA, it will be scheduled next week, will continue Vancomycin and after the surgery further recommendation to follow and patient will need rehab. if the event patient does not have surgery, patient was seen by Dr. Longo today and patient will need vancomycin until 12/05/2020. on 11/02 was taken to OR however patient was in A. Fib and bradycardia and surgery was postponed, patient was seen by donor specialist does not need pacemaker rather hold his metoprolol, 11/03 today HR is trending patient clinically stable patient was seen by his surgeon and will reschedule surgery possibly early next week, patient clinically stable has no complaint will continue to monitor 11/04 Patient HR is stable, he is off BB, today he was seen by the donor specialist patient is cleared for the surgery and will follow-up, patient also seen by Dr. longo on 11/03 recommending to continue IV antibiotic and after surgery may switch over patient to oral antibiotic, patient was seen by his surgeon possibly early next week for the BKA, patient is feeling much better he denies any complaint of chest pain shortness of breath palpitation fever or chills. (2) Alcohol abuse: Code(s): F10.10 - Alcohol abuse, uncomplicated Status: Acute Assessment and Plan: Patient clinically stable will monitor with CIWA protocol (3) Persistent atrial fibrillation: Code(s): I48.19 - Other persistent atrial fibrillation Status: Acute Assessment and Plan: Rate is controlled patient is not systematically anticoagulant on aspirin full dose Subjective Date/time seen: 11/04/20 13:17 patient is 74-year-old male with history of alcohol abuse, atrial fibrillation, chronic respiratory failure, diabetes, diabetes wound ulcer on right foot status post amputation of the right forefoot presented emergency depart pain, open sores on left foot along the previous forefoot amputation, there is open wound and some induration and erythema minimal drainage, there is no red streak, to further evaluate patient had a TRIPP which is essentially normal suggesting patient does not have peripheral vascular disease, wound culture is growing mix manjit, blood culture is growing MRSA, patient was started on vancomycin and imipenem for suspected osteomyelitis, on 10/27/2020 patient was seen by Dr. longo suspect MRSA bacteremia secondary to right foot infection recommending to continue vancomycin,d/c imipenem and favors BKA to control infection similarly Dr. Tee plastic surgeon also recommending BKA, on 10/29/20 patient was seen by Dr. Tee and patient has agreed to have BKA, it will be scheduled next week, will continue Vancomycin and after the milligan
--- NOTE | 2020-11-04 16:26 | WPDINFPN2 ---
Progress Note: A&P Assessment and Plan (1) MRSA (methicillin resistant Staphylococcus aureus) septicemia: Code(s): A41.02 - Sepsis due to Methicillin resistant Staphylococcus aureus Status: Acute Assessment and Plan: 1. MRSA bacteremia with infection, R foot source, with chronic osteomyelitis very likely. Microbiologic cure 2. Normal ABIs, but suspect small vessel disease 3. DM, well controlled, long standing 4. AF with bradycardia REC Vanc #11, target trough 15-20. BKA to be rescheduled, and still plan on IV rx about 2 days post op, then oral therapy (e.g. [id number]) through 11/15. Oral therapy not appropriate while awaiting BKA, due to his original + blood cultures. Subjective Date/time seen: 11/04/20 16:26 Interval history: no new complaints Exam Narrative: Exam Narrative: afebrile, HR 46-137 Const: General: no acute distress Resp: Auscultation: clear to auscultation bilaterally GI: Inspection: non-distended GI Palp: Yes Soft to palpation Objective Data Vital Signs Vital Signs: Vital Signs - 24 hr 11/03/20 20:00 11/03/20 21:56 11/04/20 00:00 Temperature 36.1 C L Pulse Rate 70 62 70 Respiratory Rate 20 Blood Pressure 146/77 H Pulse Oximetry 96 11/04/20 04:00 11/04/20 06:00 11/04/20 08:00 Temperature 36.4 C Pulse Rate 46 L 51 L 54 L Respiratory Rate 21 H Blood Pressure 128/42 L Pulse Oximetry 100 11/04/20 12:00 Temperature Pulse Rate 137 H Respiratory Rate Blood Pressure Pulse Oximetry Intake/Output Intake/Output: Intake & Output 11/01/20 11/02/20 11/03/20 11/04/20 23:59 23:59 23:59 23:59 Intake Total 7272 445 2188 1090 Output Total 1400 7162 774 1350 Balance 550 -770 720 90 Meds/Results Medications: Active Medications Generic Name Dose Route Start Last Admin Trade Name Freq PRN Reason Stop Dose Admin Albuterol 2.5 mg 10/25/20 03:40 Albuterol Sulfate Neb 2.5 Mg/3 Ml Inh INHALATION TIDRT PRN Shortness Of Breath Alprazolam 1 mg 10/25/20 00:44 11/03/20 22:50 Alprazolam (*Crx) 0.5 Mg Tablet PO 1 mg TID PRN Administration anxiety Aspirin 325 mg 10/25/20 09:00 11/04/20 08:05 Aspirin 325 Mg Enteric Tablet BY MOUTH 325 mg DAILY KALPESH Administration Dextrose 12.5 gm 10/25/20 00:40 Dextrose 50% 25 Gm/50 Ml Syringe IV PUSH PRN PRN Hypoglycemia Protocol Docusate Sodium 100 mg 10/25/20 09:00 11/04/20 08:05 Docusate Sodium 100 Mg Capsule PO 100 mg DAILY KALPESH Administration Fentanyl Citrate 25 mcg 11/02/20 13:20 Fentanyl Citrate Inj (*Crx) 100 Mcg/2 Ml Vial IV PUSH Q2M PRN Pain Folic Acid 1 mg 10/25/20 09:00 11/04/20 08:05 Folic Acid 1 Mg Tablet BY MOUTH 1 mg DAILY KALPESH Administration Gabapentin 100 mg 10/25/20 09:00 11/04/20 12:23 Gabapentin 100 Mg Capsule PO 100 mg TID KALPESH Administration Glucagon 1 mg 10/25/20 00:40 Glucagon For Inj 1 Mg Vial IM PRN PRN Hypoglycemia Protocol Glucose 15 gm 10/25/20 00:40 Glucose Oral Gel 15 Gm Of Glucse In 37.5 Gm Tube PO PRN PRN Hypoglycemia Protocol Dextrose 1,000 mls @ 100 mls/hr 10/25/20 00:40 Dextrose 5% 1,000 Ml IVPB PRN PRN Hypoglycemia Protocol Vancomycin HCl 1,250 mg in 250 mls @ 200 mls/hr 10/31/20 20:00 11/03/20 22:49 Vancomycin 1,250 Mg/D5w 250 Ml IVPB Infused Q24H [facility]ALPES[facility] Infusion Lactated Ringer's 1,000 mls @ 30 mls/hr 11/02/20 13:20 11/04/20 12:58 Lr - Lactated Ringers Iv IV CONT Not Given .Q24H [facility] Insulin Aspart 2 - 5 units 10/25/20 08:00 11/04/20 12:58 Insulin Aspart (*Bkc) 100 Units/Ml SUB-Q Not Given TIDWM [facility] Protocol Ipratropium [place] 0.5 mg 10/25/20 03:41 Ipratropium Br 0.02% Inh Soln 0.5 Mg/2.5 Ml Vial INHALATION TIDRT PRN Shortness Of Breath Lactic Acid 1 applic 12/30/20 09:00 11/04/20 08:05 Lactic Acid 12% Lotion 225 Btl TOPICAL 1 applic VERONICA KALPESH Luan
[2020-11-04 17:25] LABS: Glucose Point of Care 105 (65-105)
[2020-11-04] MEDS: traMADol HCL (*CRX) 50 MG TABLET PO (20:09)
[2020-11-04 20:45] LABS: Glucose Point of Care 163 (65-105)
[2020-11-04] MEDS: SALINE 0.65% NAS SOLN 44 ML BTL 1 SPRAY NASAL (21:59)
[2020-11-05] VITALS (11 sets, daily range): BP systolic 130–150; BP diastolic 57–91; PULSE 65–108; RESP 16–22; TEMP 36.2–36.3; O2SAT 96–100
[2020-11-05] MEDS: ALPRAZolam (*CRX) 0.5 MG TABLET 1 MG PO ×2 (02:23→21:04)
[2020-11-05 07:36] LABS: Glucose Point of Care 101 (65-105)
[2020-11-05] MEDS: FOLIC ACID 1 MG TABLET BY MOUTH (08:22)
[2020-11-05] MEDS: DOCUSATE SODIUM 100 MG CAPSULE PO (08:22)
[2020-11-05] MEDS: PANTOPRAZOLE 40 MG TABLET PO ×2 (08:22→17:38)
[2020-11-05] MEDS: GABAPENTIN 100 MG CAPSULE PO ×3 (08:23→17:38)
[2020-11-05] MEDS: SALINE 0.65% NAS SOLN 44 ML BTL 1 SPRAY NASAL (08:23)
[2020-11-05] MEDS: SERTRALINE HCL 50 MG TABLET PO (08:23)
[2020-11-05] MEDS: MAGNESIUM OXIDE 400 MG TABLET PO (08:23)
[2020-11-05] MEDS: MULTIVITAMINS THERAPEUTIC TAB (*BKC) 1 TABLET PO (08:23)
[2020-11-05] MEDS: ASPIRIN 325 MG ENTERIC TABLET BY MOUTH (08:23)
[2020-11-05] MEDS: SIMVASTATIN 10 MG TABLET PO (08:23)
[2020-11-05] MEDS: LACTIC ACID 12% LOTION 225 BTL 1 APPLIC TOPICAL (08:23)
[2020-11-05] MEDS: predniSONE 2.5 MG TABLET PO (08:23)
[2020-11-05] MEDS: SILVERGEL (ELTA) 45 ML 1 APPLIC TOPICAL (08:24)
[2020-11-05 11:32] LABS: Glucose Point of Care 93 (65-105)
--- NOTE | 2020-11-05 12:45 | PM.IMPN ---
Progress Note: A&P Assessment and Plan (1) Osteomyelitis of left foot: Qualifiers: Osteomyelitis type: unspecified type Qualified Code(s): M86.9 - Osteomyelitis, unspecified Code(s): M86.9 - Osteomyelitis, unspecified Status: Acute Assessment and Plan: 11/05/20 12:45 patient is 74-year-old male with history of alcohol abuse, atrial fibrillation, chronic respiratory failure, diabetes, diabetes wound ulcer on right foot status post amputation of the right forefoot presented emergency depart pain, open sores on left foot along the previous forefoot amputation, there is open wound and some induration and erythema minimal drainage, there is no red streak, to further evaluate patient had a TRIPP which is essentially normal suggesting patient does not have peripheral vascular disease, wound culture is growing mix manjit, blood culture is growing MRSA, patient was started on vancomycin and imipenem for suspected osteomyelitis, on 10/27/2020 patient was seen by Dr. longo suspect MRSA bacteremia secondary to right foot infection recommending to continue vancomycin,d/c imipenem and favors BKA to control infection similarly Dr. Tee plastic surgeon also recommending BKA, on 10/29/20 patient was seen by Dr. Tee and patient has agreed to have BKA, it will be scheduled next week, will continue Vancomycin and after the surgery further recommendation to follow and patient will need rehab. if the event patient does not have surgery, patient was seen by Dr. Longo today and patient will need vancomycin until 12/05/2020. on 11/02 was taken to OR however patient was in A. Fib and bradycardia and surgery was postponed, patient was seen by survey research teacher does not need pacemaker rather hold his metoprolol, 11/03 today HR is trending patient clinically stable patient was seen by his surgeon and will reschedule surgery possibly early next week, patient clinically stable has no complaint will continue to monitor 11/04 Patient HR is stable, he is off BB, today he was seen by the survey research teacher patient is cleared for the surgery and will follow-up, patient also seen by Dr. longo on 11/03 recommending to continue IV antibiotic and after surgery may switch over patient to oral antibiotic, patient was seen by his surgeon possibly early next week for the BKA, patient is feeling much better he denies any complaint of chest pain shortness of breath palpitation fever or chills. 11/05 now off beta-wily for 2 days his heart rate is trending, denies any complaint of chest pain shortness of breath palpitation fever or chills, patient is clinically stable, patient may have surgery SaturdayNovember 08, will continue IV antibiotics as recommended by Dr. longo and further recommendation to follow after surgery. (2) Alcohol abuse: Code(s): F10.10 - Alcohol abuse, uncomplicated Status: Acute Assessment and Plan: Patient clinically stable will monitor with CIWA protocol (3) Persistent atrial fibrillation: Code(s): I48.19 - Other persistent atrial fibrillation Status: Acute Assessment and Plan: Rate is controlled patient is not systematically anticoagulant on aspirin full dose Subjective Date/time seen: 11/05/20 12:45 patient is 74-year-old male with history of alcohol abuse, atrial fibrillation, chronic respiratory failure, diabetes, diabetes wound ulcer on right foot status post amputation of the right forefoot presented emergency depart pain, open sores on left foot along the previous forefoot amputation, there is open wound and some induration and erythema minimal drainage, there is no red streak, to further evaluate patient had a TRIPP which is essentially normal suggesting patient does not have peripheral vascular disease, wound culture is growing mix manjit, blood culture is growing MRSA, patient was started on vancomycin and imipenem for suspected osteomyelitis, on 10/27/2020 patient was seen by Dr. longo suspect MRSA bact
[2020-11-05 17:39] LABS: Glucose Point of Care 135 (65-105)
[2020-11-05] MEDS: traMADol HCL (*CRX) 50 MG TABLET PO (21:04)
[2020-11-05 21:15] LABS: Glucose Point of Care 175 (65-105)
[2020-11-06] VITALS (11 sets, daily range): BP systolic 150–179; BP diastolic 78–82; PULSE 68–96; RESP 16–20; TEMP 36.3–36.8; O2SAT 96–98
[2020-11-06 07:01] LABS: Glucose Point of Care 82 (65-105)
[2020-11-06] MEDS: DOCUSATE SODIUM 100 MG CAPSULE PO (08:09)
[2020-11-06] MEDS: MULTIVITAMINS THERAPEUTIC TAB (*BKC) 1 TABLET PO (08:09)
[2020-11-06] MEDS: SERTRALINE HCL 50 MG TABLET PO (08:09)
[2020-11-06] MEDS: GABAPENTIN 100 MG CAPSULE PO ×3 (08:10→17:25)
[2020-11-06] MEDS: SIMVASTATIN 10 MG TABLET PO (08:10)
[2020-11-06] MEDS: LACTIC ACID 12% LOTION 225 BTL 1 APPLIC TOPICAL (08:10)
[2020-11-06] MEDS: MAGNESIUM OXIDE 400 MG TABLET PO (08:10)
[2020-11-06] MEDS: FOLIC ACID 1 MG TABLET BY MOUTH (08:10)
[2020-11-06] MEDS: predniSONE 2.5 MG TABLET PO (08:10)
[2020-11-06] MEDS: PANTOPRAZOLE 40 MG TABLET PO ×2 (08:10→17:25)
[2020-11-06] MEDS: ASPIRIN 325 MG ENTERIC TABLET BY MOUTH (08:10)
[2020-11-06] MEDS: SILVERGEL (ELTA) 45 ML 1 APPLIC TOPICAL (08:11)
[2020-11-06] MEDS: SALINE 0.65% NAS SOLN 44 ML BTL 1 SPRAY NASAL (08:14)
[2020-11-06 11:47] LABS: Glucose Point of Care 105 (65-105)
--- NOTE | 2020-11-06 12:37 | PM.IMPN ---
Progress Note: A&P Assessment and Plan (1) Osteomyelitis of left foot: Qualifiers: Osteomyelitis type: unspecified type Qualified Code(s): M86.9 - Osteomyelitis, unspecified Code(s): M86.9 - Osteomyelitis, unspecified Status: Acute Assessment and Plan: 11/06/20 12:37 patient is 74-year-old male with history of alcohol abuse, atrial fibrillation, chronic respiratory failure, diabetes, diabetes wound ulcer on right foot status post amputation of the right forefoot presented emergency depart pain, open sores on left foot along the previous forefoot amputation, there is open wound and some induration and erythema minimal drainage, there is no red streak, to further evaluate patient had a TRIPP which is essentially normal suggesting patient does not have peripheral vascular disease, wound culture is growing mix manjit, blood culture is growing MRSA, patient was started on vancomycin and imipenem for suspected osteomyelitis, on 10/27/2020 patient was seen by Dr. longo suspect MRSA bacteremia secondary to right foot infection recommending to continue vancomycin,d/c imipenem and favors BKA to control infection similarly Dr. Tee plastic surgeon also recommending BKA, on 10/29/20 patient was seen by Dr. Tee and patient has agreed to have BKA, it will be scheduled next week, will continue Vancomycin and after the surgery further recommendation to follow and patient will need rehab. if the event patient does not have surgery, patient was seen by Dr. Longo today and patient will need vancomycin until 12/05/2020. on 11/02 was taken to OR however patient was in A. Fib and bradycardia and surgery was postponed, patient was seen by appliquer zigzag does not need pacemaker rather hold his metoprolol, 11/03 today HR is trending patient clinically stable patient was seen by his surgeon and will reschedule surgery possibly early next week, patient clinically stable has no complaint will continue to monitor 11/04 Patient HR is stable, he is off BB, today he was seen by the appliquer zigzag patient is cleared for the surgery and will follow-up, patient also seen by Dr. longo on 11/03 recommending to continue IV antibiotic and after surgery may switch over patient to oral antibiotic, patient was seen by his surgeon possibly early next week for the BKA, patient is feeling much better he denies any complaint of chest pain shortness of breath palpitation fever or chills. 11/05 now off beta-wily for 2 days his heart rate is trending, denies any complaint of chest pain shortness of breath palpitation fever or chills, patient is clinically stable, patient may have surgery SaturdayNovember 08, will continue IV antibiotics as recommended by Dr. longo and further recommendation to follow after surgery. 11/06 no new complaint patient is off beta-wily and heart rate is trending up been stable, will continue IV antibiotics, patient awaiting for surgery on SaturdayNovember 08, will continue to monitor. (2) Alcohol abuse: Code(s): F10.10 - Alcohol abuse, uncomplicated Status: Acute Assessment and Plan: Patient clinically stable will monitor with CIWA protocol (3) Persistent atrial fibrillation: Code(s): I48.19 - Other persistent atrial fibrillation Status: Acute Assessment and Plan: Rate is controlled patient is not systematically anticoagulant on aspirin full dose Subjective Date/time seen: 11/06/20 12:37 patient is 74-year-old male with history of alcohol abuse, atrial fibrillation, chronic respiratory failure, diabetes, diabetes wound ulcer on right foot status post amputation of the right forefoot presented emergency depart pain, open sores on left foot along the previous forefoot amputation, there is open wound and some induration and erythema minimal drainage, there is no red streak, to further evaluate patient had a TRIPP which is essentially normal suggesting patient does not have peripheral vascular disease, wou
[2020-11-06 17:28] LABS: Glucose Point of Care 113 (65-105)
[2020-11-06 18:26] LABS: Glucose Point of Care 135 (65-105)
[2020-11-06 23:32] LABS: Glucose Point of Care 166 (65-105)
[2020-11-06] MEDS: ALPRAZolam (*CRX) 0.5 MG TABLET 1 MG PO (23:55)
[2020-11-07] VITALS (9 sets, daily range): BP systolic 139–159; BP diastolic 70–93; PULSE 58–104; RESP 14–18; TEMP 36.3–36.7; O2SAT 97–99
[2020-11-07 05:44] LABS: Hematocrit 34.9 % (42.0-52.0); Hemoglobin 10.5 g/dL (14.0-18.0); Mean Corpuscular HGB Conc 30.1 g/dl (32-36); Mean Corpuscular Hemoglobin 25.7 pg (26-34); Mean Corpuscular Volume 85.3 fl (80-100); Mean Platelet Volume 9.3 fl (7.4-10.4); Platelet Count Result 276 k/mm3 (150-375); Red Blood Count 4.09 M/mm3 (4.6-6.20); Red Cell Distribution Width 14.2 % (11.5-14.5); White Blood Count 8.4 K/mm3 (4.5-10.0)
[2020-11-07 06:10] LABS: Anion Gap 6 mmol/L (8-16); Blood Urea Nitrogen 16 mg/dL (9-20); Calcium 8.1 mg/dL (8.4-10.2); Carbon Dioxide 27 mmol/L (22-30); Chloride 105 mmol/L (98-107); Estimated CRCL calculation 64 ml/min; Estimated Glomerular Filt Rate > 60; Glucose 89 mg/dL (75-110); Magnesium 1.6 mg/dL (1.6-2.3); Potassium 4.2 mmol/L (3.4-5.0); Sodium 138 mmol/L (137-145)
[2020-11-07 07:50] LABS: Glucose Point of Care 88 (65-105)
[2020-11-07] MEDS: MULTIVITAMINS THERAPEUTIC TAB (*BKC) 1 TABLET PO (08:06)
[2020-11-07] MEDS: ASPIRIN 325 MG ENTERIC TABLET BY MOUTH (08:06)
[2020-11-07] MEDS: MAGNESIUM OXIDE 400 MG TABLET PO (08:06)
[2020-11-07] MEDS: FOLIC ACID 1 MG TABLET BY MOUTH (08:06)
[2020-11-07] MEDS: SIMVASTATIN 10 MG TABLET PO (08:06)
[2020-11-07] MEDS: PANTOPRAZOLE 40 MG TABLET PO ×2 (08:06→16:30)
[2020-11-07] MEDS: predniSONE 2.5 MG TABLET PO (08:06)
[2020-11-07] MEDS: SERTRALINE HCL 50 MG TABLET PO (08:06)
[2020-11-07] MEDS: DOCUSATE SODIUM 100 MG CAPSULE PO (08:06)
[2020-11-07] MEDS: GABAPENTIN 100 MG CAPSULE PO ×3 (08:06→16:30)
[2020-11-07] MEDS: LACTIC ACID 12% LOTION 225 BTL 1 APPLIC TOPICAL (08:11)
[2020-11-07] MEDS: SILVERGEL (ELTA) 45 ML 1 APPLIC TOPICAL (08:11)
--- NOTE | 2020-11-07 11:17 | PCNWS ---
Weekly nutritional screen. Patient is tolerating current diet with adequate intake. No weight loss reported. No nutritional needs at this time.
[2020-11-07] MEDS: traMADol HCL (*CRX) 50 MG TABLET PO (11:19)
[2020-11-07 12:19] LABS: Glucose Point of Care 113 (65-105)
--- NOTE | 2020-11-07 12:40 | WPDPN ---
Progress Note: A&P Additional Plan BKA planned for Saturday. Pt hoping for rehab at [place]. Exam Narrative: Exam Narrative: Chart reviewed. Did not change dressing. Heart rate Hb 10.5 WBC 8.4 Heart rate, a few checks below 60. Cardiology says he should be ok if off Beta Rasheed. Objective Data Vital Signs Vital Signs: Vital Signs - 24 hr 11/06/20 14:00 11/06/20 16:00 11/06/20 20:00 Temperature 36.3 C L Pulse Rate 69 73 70 Respiratory Rate 16 Blood Pressure 150/82 H Pulse Oximetry 97 11/06/20 21:47 11/07/20 00:00 11/07/20 04:00 Temperature 36.8 C Pulse Rate 69 59 L 58 L Respiratory Rate 18 Blood Pressure 179/78 H Pulse Oximetry 98 11/07/20 06:00 11/07/20 08:00 11/07/20 12:00 Temperature 36.7 C Pulse Rate 73 104 H 86 Respiratory Rate 16 Blood Pressure 159/72 H Pulse Oximetry 97 Intake/Output Intake/Output: Intake & Output 11/04/20 11/05/20 11/06/20 11/07/20 23:59 23:59 23:59 23:59 Intake Total 2220 1980 2690 1020 Output Total 1750 2550 1850 1050 Balance 470 -570 840 -30 Meds/Results Medications: Active Medications Generic Name Dose Route Start Last Admin Trade Name Freq PRN Reason Stop Dose Admin Albuterol 2.5 mg 10/25/20 03:40 Albuterol Sulfate Neb 2.5 Mg/3 Ml Inh INHALATION TIDRT PRN Shortness Of Breath Alprazolam 1 mg 10/25/20 00:44 11/06/20 23:55 Alprazolam (*Crx) 0.5 Mg Tablet PO 1 mg TID PRN Administration anxiety Aspirin 325 mg 10/25/20 09:00 11/07/20 08:06 Aspirin 325 Mg Enteric Tablet BY MOUTH 325 mg DAILY KALPESH Administration Dextrose 12.5 gm 10/25/20 00:40 Dextrose 50% 25 Gm/50 Ml Syringe IV PUSH PRN PRN Hypoglycemia Protocol Docusate Sodium 100 mg 10/25/20 09:00 11/07/20 08:06 Docusate Sodium 100 Mg Capsule PO 100 mg DAILY KALPESH Administration Fentanyl Citrate 25 mcg 11/02/20 13:20 Fentanyl Citrate Inj (*Crx) 100 Mcg/2 Ml Vial IV PUSH Q2M PRN Pain Folic Acid 1 mg 10/25/20 09:00 11/07/20 08:06 Folic Acid 1 Mg Tablet BY MOUTH 1 mg DAILY KALPESH Administration Gabapentin 100 mg 10/25/20 09:00 11/07/20 08:06 Gabapentin 100 Mg Capsule PO 100 mg TID KALPESH Administration Glucagon 1 mg 10/25/20 00:40 Glucagon For Inj 1 Mg Vial IM PRN PRN Hypoglycemia Protocol Glucose 15 gm 10/25/20 00:40 Glucose Oral Gel 15 Gm Of Glucse In 37.5 Gm Tube PO PRN PRN Hypoglycemia Protocol Dextrose 1,000 mls @ 100 mls/hr 10/25/20 00:40 Dextrose 5% 1,000 Ml IVPB PRN PRN Hypoglycemia Protocol Vancomycin HCl 1,250 mg in 250 mls @ 200 mls/hr 10/31/20 20:00 11/06/20 21:20 Vancomycin 1,250 Mg/D5w 250 Ml IVPB Infused Q24H [facility] Infusion Lactated Ringer's 1,000 mls @ 30 mls/hr 11/07/20 13:20 11/07/20 12:33 Lr - Lactated Ringers Iv IV CONT Not Given .Q24H [facility] Insulin Aspart 2 - 5 units 10/25/20 08:00 11/07/20 11:25 Insulin Aspart (*Bkc) 100 Units/Ml SUB-Q Not Given TIDWM [facility] Protocol Ipratropium [place] 0.5 mg 10/25/20 03:41 Ipratropium Br 0.02% Inh Soln 0.5 Mg/2.5 Ml Vial INHALATION TIDRT PRN Shortness Of Breath Lactic Acid 1 applic 10/26/20 09:00 11/07/20 08:11 Lactic Acid 12% Lotion 225 Btl TOPICAL 1 applic QAM [facility] Administration Magnesium Oxide 400 mg 10/26/20 09:05 11/07/20 08:06 Magnesium Oxide 400 Mg Tablet PO 400 mg QAM KALPESH Administration Multivitamins Therapeutic 1 tablet 10/25/20 09:00 11/07/20 08:06 Multivitamins Therapeutic Tab (*Bkc) PO 1 tablet DAILY KALPESH Administration Ondansetron HCl 4 mg 11/02/20 13:20 Ondansetron Inj 4 Mg/2 Ml Vial IV PUSH ONCE PRN Nausea Pantoprazole Sodium 40 mg 10/25/20 09:00 11/07/20 08:06 Pantoprazole 40 Mg Tablet PO 11/24/20 09:01 40 mg BID KALPESH Administration Prednisone 2.5 mg 10/25/20 08:00 11/07/20 08:06 Prednisone 2.5 Mg Tablet PO 2.5
--- NOTE | 2020-11-07 14:13 | PM.IMPN ---
Progress Note: A&P Assessment and Plan (1) Osteomyelitis of left foot: Qualifiers: Osteomyelitis type: unspecified type Qualified Code(s): M86.9 - Osteomyelitis, unspecified Code(s): M86.9 - Osteomyelitis, unspecified Status: Acute Assessment and Plan: 11/07/20 14:15 patient is 74-year-old male with history of alcohol abuse, atrial fibrillation, chronic respiratory failure, diabetes, diabetes wound ulcer on right foot status post amputation of the right forefoot presented emergency depart pain, open sores on left foot along the previous forefoot amputation, there is open wound and some induration and erythema minimal drainage, there is no red streak, to further evaluate patient had a TRIPP which is essentially normal suggesting patient does not have peripheral vascular disease, wound culture is growing mix manjit, blood culture is growing MRSA, patient was started on vancomycin and imipenem for suspected osteomyelitis, on 10/27/2020 patient was seen by Dr. longo suspect MRSA bacteremia secondary to right foot infection recommending to continue vancomycin,d/c imipenem and favors BKA to control infection similarly Dr. Tee plastic surgeon also recommending BKA, on 10/29/20 patient was seen by Dr. Tee and patient has agreed to have BKA, it will be scheduled next week, will continue Vancomycin and after the surgery further recommendation to follow and patient will need rehab. if the event patient does not have surgery, patient was seen by Dr. Longo today and patient will need vancomycin until 12/05/2020. on 11/02 was taken to OR however patient was in A. Fib and bradycardia and surgery was postponed, patient was seen by torpedo specialist does not need pacemaker rather hold his metoprolol, 11/03 today HR is trending patient clinically stable patient was seen by his surgeon and will reschedule surgery possibly early next week, patient clinically stable has no complaint will continue to monitor 11/04 Patient HR is stable, he is off BB, today he was seen by the torpedo specialist patient is cleared for the surgery and will follow-up, patient also seen by Dr. longo on 11/03 recommending to continue IV antibiotic and after surgery may switch over patient to oral antibiotic, patient was seen by his surgeon possibly early next week for the BKA, patient is feeling much better he denies any complaint of chest pain shortness of breath palpitation fever or chills. 11/05 now off beta-wily for 2 days his heart rate is trending, denies any complaint of chest pain shortness of breath palpitation fever or chills, patient is clinically stable, patient may have surgery SaturdayNovember 08, will continue IV antibiotics as recommended by Dr. longo and further recommendation to follow after surgery. 11/06 no new complaint patient is off beta-wily and heart rate is trending up been stable, will continue IV antibiotics, patient awaiting for surgery on SaturdayNovember 08, will continue to monitor. 11/07 patient has no new complaint he was seen by his plastic surgeon and scheduled for BKA tomorrow at noon patient is clinically stable will continue to monitor and follow (2) Alcohol abuse: Code(s): F10.10 - Alcohol abuse, uncomplicated Status: Acute Assessment and Plan: Patient clinically stable will monitor with CIWA protocol (3) Persistent atrial fibrillation: Code(s): I48.19 - Other persistent atrial fibrillation Status: Acute Assessment and Plan: Rate is controlled patient is not systematically anticoagulant on aspirin full dose Subjective Date/time seen: 11/07/20 14:15 patient is 74-year-old male with history of alcohol abuse, atrial fibrillation, chronic respiratory failure, diabetes, diabetes wound ulcer on right foot status post amputation of the right forefoot presented emergency depart pain, open sores on left foot along the previous forefoot amputation, there is open wound and some induration and erythema mi
--- NOTE | 2020-11-07 14:29 | WPDINFPN2 ---
Progress Note: A&P Assessment and Plan (1) MRSA (methicillin resistant Staphylococcus aureus) septicemia: Code(s): A41.02 - Sepsis due to Methicillin resistant Staphylococcus aureus Status: Acute Assessment and Plan: 1. MRSA bacteremia with infection, R foot source, with chronic osteomyelitis very likely. Microbiologic cure 2. Normal ABIs, but suspect small vessel disease 3. DM, well controlled, long standing 4. AF with bradycardia REC Vanc #14, target trough 15-20. BKA tomorrow, and plan on IV rx about 2 days post op, then oral therapy (e.g. [id number]) through 11/15. Oral therapy not appropriate while awaiting BKA, due to his original + blood cultures. Subjective Date/time seen: 11/07/20 14:29 Interval history: no pain, + green drainage left foot when new dressing placed a short while ago. No pain Exam Narrative: Exam Narrative: afebrile Const: General: no acute distress Eyes: General: appearance normal, both eyes and all related structures Resp: Effort & Inspection: normal respiratory effort Auscultation: clear to auscultation bilaterally Cardio: Rate: regular rate Rhythm: regular rhythm Heart sounds: no murmurs GI: Inspection: non-distended GI Palp: Yes Soft to palpation and No Tenderness to palpation present (GI) Skin: General skin exam: no rashes or lesions noted Extrem: Other: left foot dressed, no odor, no drainage nor blood, no proximal erythema nor tenderness Objective Data Vital Signs Vital Signs: Vital Signs - 24 hr 11/06/20 16:00 11/06/20 20:00 11/06/20 21:47 Temperature 36.8 C Pulse Rate 73 70 69 Respiratory Rate 18 Blood Pressure 179/78 H Pulse Oximetry 98 11/07/20 00:00 11/07/20 04:00 11/07/20 06:00 Temperature 36.7 C Pulse Rate 59 L 58 L 73 Respiratory Rate 16 Blood Pressure 159/72 H Pulse Oximetry 97 11/07/20 08:00 11/07/20 12:00 11/07/20 14:00 Temperature 36.3 C L Pulse Rate 104 H 86 72 Respiratory Rate 18 Blood Pressure 158/76 H Pulse Oximetry 99 Intake/Output Intake/Output: Intake & Output 11/04/20 11/05/20 11/06/20 11/07/20 23:59 23:59 23:59 23:59 Intake Total 2220 1980 2690 1020 Output Total 1750 2550 1850 1050 Balance 470 -570 840 -30 Meds/Results Medications: Active Medications Generic Name Dose Route Start Last Admin Trade Name Freq PRN Reason Stop Dose Admin Albuterol 2.5 mg 10/25/20 03:40 Albuterol Sulfate Neb 2.5 Mg/3 Ml Inh INHALATION TIDRT PRN Shortness Of Breath Alprazolam 1 mg 10/25/20 00:44 11/06/20 23:55 Alprazolam (*Crx) 0.5 Mg Tablet PO 1 mg TID PRN Administration anxiety Aspirin 325 mg 10/25/20 09:00 11/07/20 08:06 Aspirin 325 Mg Enteric Tablet BY MOUTH 325 mg DAILY KALPESH Administration Dextrose 12.5 gm 10/25/20 00:40 Dextrose 50% 25 Gm/50 Ml Syringe IV PUSH PRN PRN Hypoglycemia Protocol Docusate Sodium 100 mg 10/25/20 09:00 11/07/20 08:06 Docusate Sodium 100 Mg Capsule PO 100 mg DAILY KALPESH Administration Fentanyl Citrate 25 mcg 11/02/20 13:20 Fentanyl Citrate Inj (*Crx) 100 Mcg/2 Ml Vial IV PUSH Q2M PRN Pain Folic Acid 1 mg 10/25/20 09:00 11/07/20 08:06 Folic Acid 1 Mg Tablet BY MOUTH 1 mg DAILY KALPESH Administration Gabapentin 100 mg 10/25/20 09:00 11/07/20 13:54 Gabapentin 100 Mg Capsule PO 100 mg TID KALPESH Administration Glucagon 1 mg 10/25/20 00:40 Glucagon For Inj 1 Mg Vial IM PRN PRN Hypoglycemia Protocol Glucose 15 gm 10/25/20 00:40 Glucose Oral Gel 15 Gm Of Glucse In 37.5 Gm Tube PO PRN PRN Hypoglycemia Protocol Dextrose 1,000 mls @ 100 mls/hr 10/25/20 00:40 Dextrose 5% 1,000 Ml IVPB PRN PRN Hypoglycemia Protocol Vancomycin HCl 1,250 mg in 250 mls @ 200 mls/hr 10/31/20 20:00 11/06/20 21:20 Vancomycin 1,250 Mg/D5w 250 Ml IVPB Infused Q24H KALPESH Infusion Lactated Ringer's 1,000 mls @ 30 mls/hr 11/07
--- NOTE | 2020-11-07 15:41 | WPDANESEPP ---
Anes - Eval Pre Procedure Procedure: Operation Date: 11/02/20 15:00 Proposed Procedures p Left Below Knee Amputation - Ravin Heaton MD Operation Date: 11/08/20 12:00 Proposed Procedures p Left Below Knee Amputation - Ravin Heaton MD Date/Time: 11/07/20 15:41 Pre Op Diagnosis: Left Foot osteomyelitis Patient Data Age: 74 Gender: M Height: 6 ft Weight: 80.2 kg Last Vital Signs Temp 36.3 C L 11/07/20 14:00 Pulse 72 11/07/20 14:00 Resp 18 11/07/20 14:00 BP 158/76 H 11/07/20 14:00 Pulse Ox 99 11/07/20 14:00 Allergies Allergy/AdvReac Type Severity Reaction Status Date / Time niacin Allergy Unknown Unknown Verified 06/27/20 12:06 Home Medications Medication Instructions Recorded Confirmed Type prednisone 2.5 mg tablet 2.5 mg PO DAILY 09/30/19 10/24/20 History multivitamin [Daily Multi-Vitamin] 1 tablet PO DAILY 12/29/19 10/24/20 History albuterol sulfate See Rx Instructions .ROUTE 02/19/20 10/24/20 Rx .COMPLEX #810 ml levofloxacin [Levaquin] 500 mg PO DAILY #10 tablet 07/01/20 10/24/20 Rx silver [Silver-Sept] 1 applic TOPICAL DAILY #60 g 07/01/20 10/24/20 Rx aspirin 325 mg tablet,delayed See Rx Instructions .ROUTE 08/02/20 10/24/20 Rx release .COMPLEX #90 tablet metoprolol tartrate 25 mg tablet See Rx Instructions .ROUTE 08/02/20 10/24/20 Rx .COMPLEX #90 tablet ipratropium 0.5 mg-albuterol 3 mg See Rx Instructions .ROUTE 09/02/20 10/24/20 Rx (2.5 mg base)/3 mL nebulization .COMPLEX #270 ml soln tiotropium bromide 18 mcg capsule 1 cap INHALATION DAILY #90 inh 09/02/20 10/24/20 Rx with inhalation device sertraline 50 mg tablet 50 mg PO DAILY #90 tablet 09/26/20 10/24/20 Rx simvastatin 10 mg tablet 10 mg PO DAILY #90 tablet 09/26/20 10/24/20 Rx tramadol 50 mg tablet 50 mg PO Q6H PRN #30 tablet 10/01/20 10/24/20 Rx folic acid 1 mg tablet See Rx Instructions .ROUTE 10/14/20 10/24/20 Rx .COMPLEX #90 tablet alprazolam 1 mg tablet 1 mg PO TID PRN #90 tablet 10/18/20 10/24/20 Rx docusate sodium [Colace] 100 mg PO DAILY 10/24/20 10/24/20 History gabapentin 100 mg PO TID 10/24/20 10/24/20 History omeprazole 20 mg capsule,delayed 40 mg PO BID #60 cap 10/24/20 10/24/20 Rx release Laboratory Tests 11/06/20 11/06/20 11/06/20 17:26 18:23 21:31 WBC RBC Hgb Hct MCV MCH MCHC RDW Plt Count MPV Sodium Potassium Chloride Carbon Dioxide Anion Gap BUN Creatinine Estim Creat Clear Calc Estimated GFR Glucose POC Capillary Glucose 113 mg/dl H mg/dl 135 mg/dl H mg/dl 166 mg/dl H mg/dl (65-105) (65-105) (65-105) Calcium Magnesium 11/07/20 11/07/20 11/07/20 05:22 05:22 07:45 WBC 8.4 K/mm3 K/mm3 (4.5-10.0) RBC 4.09 M/mm3 L M/mm3 (4.6-6.20) Hgb 10.5 g/dL L g/dL (14.0-18.0) Hct 34.9 % L % (42.0-52.0) MCV 85.3 fl fl (80-100) MCH 25.7 pg L pg (26-34) MCHC 30.1 g/dl L g/dl (32-36) RDW 14.2 % % (11.5-14.5) Plt Count 276 k/mm3 k/mm3 (150-375) MPV 9.3 fl fl (7.4-10.4) Sodium 138 mmol/L mmol/L (137-145) Potassium 4.2 mmol/L mmol/L (3.4-5.0) Chloride 105 mmol/L mmol/L (98-107) Carbon Dioxide 27 mmol/L mmol/L (22-30) Anion Gap 6 mmol/L L mmol/L (8-16) BUN 16 mg/dL mg/dL (9-20) Creatinine 1.00 mg/dL mg/dL (0.7-1.3) Estim Creat Clear Calc 64 ml/min ml/min Estimated GFR > 60 (59 - ) Glucose 89 mg/dL mg/dL (75-110) POC Capillary Glucose 88 mg/dl mg/dl (65-105) Calcium 8.1 mg/dL L mg/dL (8.4-10.2) Magnesium 1.6 mg/dL mg/dL (1.6-2.3) 10/28
[2020-11-07 16:23] LABS: Glucose Point of Care 94 (65-105)
--- NOTE | 2020-11-07 17:45 | ADMGEN ---
This patient, Ludin Mcguire, was admitted to [facility] Room 221-01. Patient oriented to hospital policies and general routines including ID bracelet, bed and alarms, visiting hours, pain management, procedures, bathroom and other care routines, personal items, smoking policy, room service/diet, and visiting hours. Information on how to activate the Rapid Response Team has been discussed. Patient are encouraged to report perceived risks to care and to ask questions if they do not understand what they are told or what they should do.
[2020-11-07 19:59] LABS: Vancomycin Trough 12.5 ug/mL (10.0-20.0)
[2020-11-07 21:43] LABS: Glucose Point of Care 176 (65-105)
[2020-11-07] MEDS: ALPRAZolam (*CRX) 0.5 MG TABLET 1 MG PO (23:53)
[2020-11-08] VITALS (15 sets, daily range): BP systolic 130–199; BP diastolic 71–118; PULSE 43–104; RESP 12–24; TEMP 36–37.2; O2SAT 94–100
[2020-11-08 05:18] LABS: Hematocrit 34.3 % (42.0-52.0); Hemoglobin 10.3 g/dL (14.0-18.0); Mean Corpuscular Hemoglobin 25.1 pg (26-34); Mean Corpuscular Volume 83.7 fl (80-100); Platelet Count Result 253 k/mm3 (150-375); White Blood Count 7.4 K/mm3 (4.5-10.0)
[2020-11-08 05:37] LABS: Anion Gap 2 mmol/L (8-16); Blood Urea Nitrogen 19 mg/dL (9-20); Calcium 7.9 mg/dL (8.4-10.2); Carbon Dioxide 30 mmol/L (22-30); Chloride 105 mmol/L (98-107); Estimated CRCL calculation 58 ml/min; Estimated Glomerular Filt Rate > 60; Glucose 102 mg/dL (75-110); Potassium 4.3 mmol/L (3.4-5.0); Sodium 137 mmol/L (137-145)
[2020-11-08 06:42] LABS: Glucose Point of Care 92 (65-105)
[2020-11-08] MEDS: LACTATED RINGERS 1,000 ML 30 ML IV CONT (11:15)
--- NOTE | 2020-11-08 11:19 | WPDANESEPPF ---
Anes - Initial Pre Proc Eval Procedure: Operation Date: 11/02/20 15:00 Proposed Procedures p Left Below Knee Amputation - Ravin Heaton MD Operation Date: 11/08/20 12:00 Proposed Procedures p Left Below Knee Amputation - Ravin Heaton MD Date/Time: 11/08/20 11:19 Surgeon: Ayo Foy MD Pre Op Diagnosis: Left Foot osteomyelitis Patient Data Age: 74 Gender: M Height: 6 ft Weight: 78.1 kg Last Vital Signs Temp 97.7 F 11/08/20 05:05 Pulse 79 11/08/20 05:05 Resp 12 11/08/20 05:05 BP 130/90 11/08/20 05:05 Pulse Ox 97 11/08/20 05:05 Allergies Allergy/AdvReac Type Severity Reaction Status Date / Time niacin Allergy Intermediate Rash/itchin Verified 11/08/20 11:05 g Home Medications Medication Instructions Recorded Confirmed Type prednisone 2.5 mg tablet 2.5 mg PO DAILY 09/30/19 10/24/20 History multivitamin [Daily Multi-Vitamin] 1 tablet PO DAILY 12/29/19 10/24/20 History albuterol sulfate See Rx Instructions .ROUTE 02/19/20 10/24/20 Rx .COMPLEX #810 ml levofloxacin [Levaquin] 500 mg PO DAILY #10 tablet 07/01/20 10/24/20 Rx silver [Silver-Sept] 1 applic TOPICAL DAILY #60 g 07/01/20 10/24/20 Rx aspirin 325 mg tablet,delayed See Rx Instructions .ROUTE 08/02/20 10/24/20 Rx release .COMPLEX #90 tablet metoprolol tartrate 25 mg tablet See Rx Instructions .ROUTE 08/02/20 10/24/20 Rx .COMPLEX #90 tablet ipratropium 0.5 mg-albuterol 3 mg See Rx Instructions .ROUTE 09/02/20 10/24/20 Rx (2.5 mg base)/3 mL nebulization .COMPLEX #270 ml soln tiotropium bromide 18 mcg capsule 1 cap INHALATION DAILY #90 inh 09/02/20 10/24/20 Rx with inhalation device sertraline 50 mg tablet 50 mg PO DAILY #90 tablet 09/26/20 10/24/20 Rx simvastatin 10 mg tablet 10 mg PO DAILY #90 tablet 09/26/20 10/24/20 Rx tramadol 50 mg tablet 50 mg PO Q6H PRN #30 tablet 10/01/20 10/24/20 Rx folic acid 1 mg tablet See Rx Instructions .ROUTE 10/14/20 10/24/20 Rx .COMPLEX #90 tablet alprazolam 1 mg tablet 1 mg PO TID PRN #90 tablet 10/18/20 10/24/20 Rx docusate sodium [Colace] 100 mg PO DAILY 10/24/20 10/24/20 History gabapentin 100 mg PO TID 10/24/20 10/24/20 History omeprazole 20 mg capsule,delayed 40 mg PO BID #60 cap 10/24/20 10/24/20 Rx release Laboratory Tests 11/07/20 11/07/20 11/07/20 11:22 16:09 19:13 WBC RBC Hgb Hct MCV MCH MCHC RDW Plt Count MPV Sodium Potassium Chloride Carbon Dioxide Anion Gap BUN Creatinine Estim Creat Clear Calc Estimated GFR Glucose POC Capillary Glucose 113 mg/dl H mg/dl 94 mg/dl mg/dl (65-105) (65-105) Calcium Vancomycin Trough 12.5 ug/mL ug/mL (10.0-20.0) 11/07/20 11/08/20 11/08/20 21:30 04:51 04:51 WBC 7.4 K/mm3 K/mm3 (4.5-10.0) RBC 4.10 M/mm3 L M/mm3 (4.6-6.20) Hgb 10.3 g/dL L g/dL (14.0-18.0) Hct 34.3 % L % (42.0-52.0) MCV 83.7 fl fl (80-100) MCH 25.1 pg L pg (26-34) MCHC 30.0 g/dl L g/dl (32-36) RDW 14.0 % % (11.5-14.5) Plt Count 253 k/mm3 k/mm3 (150-375) MPV 9.0 fl fl (7.4-10.4) Sodium 137 mmol/L mmol/L (137-145) Potassium 4.3 mmol/L mmol/L (3.4-5.0) Chloride 105 mmol/L mmol/L (98-107) Carbon Dioxide 30 mmol/L mmol/L (22-30) Anion Gap 2 mmol/L L mmol/L (8-16) BUN 19 mg/dL mg/dL (9-20) Creatinine 1.10 mg/dL mg/dL (0.7-1.3) Estim Creat Clear Calc 58 ml/min ml/min Estimated GFR > 60 (59 - ) Glucose 102 mg/dL mg/dL (75-110) POC Capillary Glucose 176 mg/dl H mg/dl (65-105) Calcium 7.9 mg/dL L mg/dL (8.4-10.2
--- NOTE | 2020-11-08 12:10 | WPDHPUPDATE1 ---
History and Physical Update Update Date/Time: 11/08/20 12:10 History and Physical has been reviewed, including an updated exam of the patient. There are NO changes in the patient's condition. Risks, benefits, and alternatives have been discussed and questions answered. Patient agrees to proceed with procedure.
--- NOTE | 2020-11-08 12:10 | PM.OP ---
Procedure Note - Brief Procedure Note - Brief Date of procedure: 11/08/20 Pre-op diagnosis: Left Foot osteomyelitis Post-op diagnosis: same Procedure performed: Left BKA Anesthesia: GETA Surgeon: Ravin Heaton MD Drains: No Packing: No Pathology: yes Complications: No immediate complications Condition: stable Disposition: PACU
--- NOTE | 2020-11-08 13:33 | PM.DS ---
DS: Summary Time Spent with Patient Time attestation: Total time spent providing and/or coordinating discharge services: DS: Data Data Completed and Pending Pending studies at discharge: Pending at discharge 11/08/20 12:58 Surgical [PTH] Routine Labs on day of discharge: Labs from last 24 hours 11/08/20 11/08/20 11/08/20 06:40 04:51 04:51 WBC 7.4 RBC 4.10 L Hgb 10.3 L Hct 34.3 L MCV 83.7 MCH 25.1 L MCHC 30.0 L RDW 14.0 Plt Count 253 MPV 9.0 Sodium 137 Potassium 4.3 Chloride 105 Carbon Dioxide 30 Anion Gap 2 L BUN 19 Creatinine 1.10 Estim Creat Clear Calc 58 Estimated GFR > 60 Glucose 102 POC Capillary Glucose 92 Calcium 7.9 L Vancomycin Trough 11/07/20 11/07/20 11/07/20 21:30 19:13 16:09 WBC RBC Hgb Hct MCV MCH MCHC RDW Plt Count MPV Sodium Potassium Chloride Carbon Dioxide Anion Gap BUN Creatinine Estim Creat Clear Calc Estimated GFR Glucose POC Capillary Glucose 176 H 94 Calcium Vancomycin Trough 12.5 Discharge Plan Discharge Consulting providers: Ravin Heaton ; Skinny Longo ; Destin Bob Patient Disposition: Home Health Service Discharge Instructions: Per Care Coordination: Patient is current with [facility] and they will resume fpc services at discharge. They can be reached at [phone]. Patient Instructions: Antibiotic Form, Heart Failure (DC) Stand Alone Forms: General Discharge Information Discharge Medications: No Action albuterol sulfate 2.5 mg /3 mL (0.083 %) solution for nebulization See Rx Instructions .ROUTE .COMPLEX Qty: 810 RF: 1 multivitamin [Daily Multi-Vitamin] Tablet 1 tablet PO DAILY RF: 0 levofloxacin [Levaquin] 500 mg Tablet 500 mg PO DAILY Qty: 10 RF: 5 Silver-Sept 200 mcg/gram Gel 1 applic topical DAILY Qty: 60 RF: 0 gabapentin 100 mg capsule 100 mg PO TID RF: 0 docusate sodium [Colace] 100 mg Capsule 100 mg PO DAILY RF: 0 prednisone 2.5 mg tablet 2.5 mg PO DAILY RF: 0 metoprolol tartrate 25 mg tablet See Rx Instructions .ROUTE .COMPLEX Qty: 90 RF: 3 aspirin 325 mg tablet,delayed release (DR/EC) See Rx Instructions .ROUTE .COMPLEX Qty: 90 RF: 3 Spiriva with HandiHaler 18 mcg capsule, w/inhalation device 1 cap inhalation DAILY Qty: 90 RF: 3 ipratropium-albuterol 0.5 mg-3 mg(2.5 mg base)/3 mL solution for nebulization See Rx Instructions .ROUTE .COMPLEX Qty: 270 RF: 3 simvastatin 10 mg tablet 10 mg PO DAILY Qty: 90 RF: 1 sertraline 50 mg tablet 50 mg PO DAILY Qty: 90 RF: 1 tramadol 50 mg tablet 50 mg PO Q6H PRN (Reason: Pain, Severe) Qty: 30 RF: 2 folic acid 1 mg tablet See Rx Instructions .ROUTE .COMPLEX Qty: 90 RF: 3 alprazolam [Xanax] 1 mg tablet 1 mg PO TID PRN (Reason: anxiety) Qty: 90 RF: 3 omeprazole 20 mg capsule,delayed release(DR/EC) 40 mg PO BID Qty: 60 RF: 1 Date of admission: 10/24/20 15:57 Primary Care Provider: Master Colbert Admitting Provider: Ayo Foy Attending physician on admission: Ayo Foy Condition: Stable Quality VTE Prophylaxis VTE prophylaxis: pharmacologic ordered
--- NOTE | 2020-11-08 13:34 | PM.IMPN ---
Progress Note: A&P Assessment and Plan (1) Osteomyelitis of left foot: Qualifiers: Osteomyelitis type: unspecified type Qualified Code(s): M86.9 - Osteomyelitis, unspecified Code(s): M86.9 - Osteomyelitis, unspecified Status: Acute Assessment and Plan: 11/08/20 13:34 patient is 74-year-old male with history of alcohol abuse, atrial fibrillation, chronic respiratory failure, diabetes, diabetes wound ulcer on right foot status post amputation of the right forefoot presented emergency depart pain, open sores on left foot along the previous forefoot amputation, there is open wound and some induration and erythema minimal drainage, there is no red streak, to further evaluate patient had a TRIPP which is essentially normal suggesting patient does not have peripheral vascular disease, wound culture is growing mix manjit, blood culture is growing MRSA, patient was started on vancomycin and imipenem for suspected osteomyelitis, on 10/27/2020 patient was seen by Dr. longo suspect MRSA bacteremia secondary to right foot infection recommending to continue vancomycin,d/c imipenem and favors BKA to control infection similarly Dr. Tee plastic surgeon also recommending BKA, on 10/29/20 patient was seen by Dr. Tee and patient has agreed to have BKA, it will be scheduled next week, will continue Vancomycin and after the surgery further recommendation to follow and patient will need rehab. if the event patient does not have surgery, patient was seen by Dr. Longo today and patient will need vancomycin until 12/05/2020. on 11/02 was taken to OR however patient was in A. Fib and bradycardia and surgery was postponed, patient was seen by geotechnical department manager does not need pacemaker rather hold his metoprolol, 11/03 today HR is trending patient clinically stable patient was seen by his surgeon and will reschedule surgery possibly early next week, patient clinically stable has no complaint will continue to monitor 11/04 Patient HR is stable, he is off BB, today he was seen by the geotechnical department manager patient is cleared for the surgery and will follow-up, patient also seen by Dr. longo on 11/03 recommending to continue IV antibiotic and after surgery may switch over patient to oral antibiotic, patient was seen by his surgeon possibly early next week for the BKA, patient is feeling much better he denies any complaint of chest pain shortness of breath palpitation fever or chills. 11/05 now off beta-wily for 2 days his heart rate is trending, denies any complaint of chest pain shortness of breath palpitation fever or chills, patient is clinically stable, patient may have surgery SaturdayNovember 08, will continue IV antibiotics as recommended by Dr. longo and further recommendation to follow after surgery. 11/06 no new complaint patient is off beta-wily and heart rate is trending up been stable, will continue IV antibiotics, patient awaiting for surgery on SaturdayNovember 08, will continue to monitor. 11/07 patient has no new complaint he was seen by his plastic surgeon and scheduled for BKA tomorrow at noon patient is clinically stable will continue to monitor and follow 11/08 patient is been transferred to [facility] for rehab prior to his surgery, patient is scheduled to have BKA later this afternoon, patient has no new complaints is already further surgery, patient denies any chest pain shortness of breath palpitation fever or chills, patient will benefit from acute rehab after the amputation. (2) Alcohol abuse: Code(s): F10.10 - Alcohol abuse, uncomplicated Status: Acute Assessment and Plan: Patient clinically stable will monitor with CIWA protocol (3) Persistent atrial fibrillation: Code(s): I48.19 - Other persistent atrial fibrillation Status: Acute Assessment and Plan: Rate is controlled patient is not systematically anticoagulant on aspirin full dose Subjective Date/time seen: 11/08/20 13:34 patient is 74-year-o
[2020-11-08 14:13] LABS: Glucose Point of Care 118 (65-105)
[2020-11-08] MEDS: fentaNYL CITRATE INJ (*CRX) 100 MCG/2 ML VIAL 25 MCG IV PUSH ×7 (14:19→15:14)
--- NOTE | 2020-11-08 14:32 | P.OP_ITS ---
Procedure Note - Detailed Date of procedure: 11/08/20 Pre-op diagnosis: Left Foot osteomyelitis Post-op diagnosis: same Procedure performed: Left below-knee amputation Description of procedure: The patient's left lower extremity was marked for below-knee amputation in the holding area. He was taken to the operating room and placed supine on the operating table. A time-out was held and confirmed. He was given general endotracheal anesthesia and the left lower extremity was prepped and draped in usual fashion. The markings were placed for the posterior flap fishmouth combination. No local anesthetic was given. The leg was eleva israel and gently exsanguinated and the tourniquet inflated to 300 mm meters of Mercury . The foot had been wrapped separately. The incisions were made with a 10. Blade and superficial veins were ligated between clamps and divided. The periosteum of the tibia was sharply incised and cauterized and elevated several cm proximally. The anterior compartment was opened and the anterior neurovascular bundle was identified. This was divided between clamps and ligated. The fibula was dissected subperiosteally and was divided with bone cutter approximately 4 cm from its head. The medial compartment was opened enough to dissect around the posterior aspect of the tibia. The tibia was dissected subperiosteally and divided with a sagittal saw. The anterior end of the tibia was beveled about 45?. The bone edges were smoothed with a rasp. The leg was well supported on a soft roll beneath the thigh. The bone hook was placed in the distal end of the tibia. The leg was extended to about 45? and the remaining soft tissue amputated with the amputation knife. The leg was passed off the table. The neurovascular bundles were carefully examined. All the vessels seemed small and the anterior tibial and tibial nerves were both suture ligated and cut high to retract. The small vascular pedicles were also suture ligated without separate dissection. The soleus and other posterior compartment muscles were tailored as needed to allow flap coaptation and provide robust soft tissue coverage over the tibia. The closure was accomplished with 0 Vicryl interrupted sutures in 2 layers. The skin was closed with mayito. A bulky soft wrap with a compression Danilo wrap was applied. The estimated blood loss was 20 milliliter. Tourniquet time was approximately 80 minutes and is recorded on the nursing record. Surgeon: Ravin Heaton MD
[2020-11-08] MEDS: hydrALAZINE HCL 20 MG/ML VIAL 10 MG IV PUSH (14:53)
[2020-11-08] MEDS: traMADol HCL (*CRX) 50 MG TABLET PO (16:38)
[2020-11-08 17:09] LABS: Glucose Point of Care 166 (65-105)
[2020-11-08] MEDS: predniSONE 2.5 MG TABLET PO (17:17)
[2020-11-08] MEDS: DOCUSATE SODIUM 100 MG CAPSULE PO (17:18)
[2020-11-08] MEDS: ASPIRIN 325 MG ENTERIC TABLET BY MOUTH (17:18)
[2020-11-08] MEDS: GABAPENTIN 100 MG CAPSULE PO (17:18)
[2020-11-08] MEDS: MAGNESIUM OXIDE 400 MG TABLET PO (17:19)
[2020-11-08] MEDS: SERTRALINE HCL 50 MG TABLET PO (17:19)
[2020-11-08] MEDS: SIMVASTATIN 10 MG TABLET PO (17:20)
[2020-11-08] MEDS: LACTIC ACID 12% LOTION 225 BTL 1 APPLIC TOPICAL (18:06)
[2020-11-08] MEDS: ALPRAZolam (*CRX) 0.5 MG TABLET 1 MG PO ×2 (18:27→21:00)
[2020-11-08] MEDS: MORPHINE SULFATE (*CRX) 4 MG/ML INJ 2 MG IV PUSH ×3 (18:28→23:48)
[2020-11-08] MEDS: METOPROLOL TARTRATE 25 MG TABLET PO (21:00)
[2020-11-08] MEDS: diphenhydrAMINE HCl CAP 25 MG CAPSULE PO (21:00)
[2020-11-09] VITALS (7 sets, daily range): BP systolic 116–185; BP diastolic 62–95; PULSE 62–102; RESP 16–20; TEMP 36.2–37; O2SAT 92–99
[2020-11-09 05:12] LABS: Hematocrit 36.7 % (42.0-52.0); Hemoglobin 11.1 g/dL (14.0-18.0); Mean Corpuscular HGB Conc 30.2 g/dl (32-36); Mean Corpuscular Hemoglobin 25.6 pg (26-34); Mean Corpuscular Volume 84.6 fl (80-100); Mean Platelet Volume 9.2 fl (7.4-10.4); Platelet Count Result 276 k/mm3 (150-375); Red Blood Count 4.34 M/mm3 (4.6-6.20); White Blood Count 14.4 K/mm3 (4.5-10.0)
[2020-11-09 05:24] LABS: Anion Gap 4 mmol/L (8-16); Blood Urea Nitrogen 18 mg/dL (9-20); Calcium 8.9 mg/dL (8.4-10.2); Carbon Dioxide 30 mmol/L (22-30); Chloride 99 mmol/L (98-107); Estimated CRCL calculation 64 ml/min; Estimated Glomerular Filt Rate > 60; Glucose 115 mg/dL (75-110); Potassium 4.7 mmol/L (3.4-5.0); Sodium 133 mmol/L (137-145)
[2020-11-09] MEDS: MORPHINE SULFATE (*CRX) 4 MG/ML INJ 2 MG IV PUSH ×7 (06:19→22:14)
--- NOTE | 2020-11-09 07:47 | WPDANESPN ---
Anes - Prog Note Post-Op Date/Time: 11/09/20 07:47 Cardiovascular status: normal Respiratory status: normal Airway patency: baseline Mental status: baseline Post-Op hydration status: normal Vital Signs: Last Vital Signs Temp 36.7 C 11/09/20 06:00 Pulse 80 11/09/20 06:00 Resp 20 11/09/20 06:00 BP 185/95 H 11/09/20 06:00 Pulse Ox 99 11/09/20 06:00 Pain Score (VAS): 5 I/O: Intake & Output 11/08/20 11/08/20 11/09/20 15:59 23:59 07:59 Intake Total 1000 950 Output Total 400 890 Balance 1000 -400 60 Laboratory Tests 11/09/20 04:35 11/09/20 04:35 11/08/20 11/08/20 11/09/20 14:09 17:08 04:35 WBC 14.4 H RBC 4.34 L Hgb 11.1 L Hct 36.7 L MCV 84.6 MCH 25.6 L MCHC 30.2 L RDW 14.0 Plt Count 276 MPV 9.2 Sodium Potassium Chloride Carbon Dioxide Anion Gap BUN Creatinine Estim Creat Clear Calc Estimated GFR Glucose POC Capillary Glucose 118 H 166 H Calcium 11/09/20 04:35 WBC RBC Hgb Hct MCV MCH MCHC RDW Plt Count MPV Sodium 133 L Potassium 4.7 Chloride 99 Carbon Dioxide 30 Anion Gap 4 L BUN 18 Creatinine 1.00 Estim Creat Clear Calc 64 Estimated GFR > 60 Glucose 115 H POC Capillary Glucose Calcium 8.9 Post-procedural complaints: pruritis Patient Feedback: Patient satisfied with anesthetic care.
[2020-11-09] MEDS: traMADol HCL (*CRX) 50 MG TABLET PO (07:51)
[2020-11-09] MEDS: ALPRAZolam (*CRX) 0.5 MG TABLET 1 MG PO ×2 (09:19→22:14)
[2020-11-09] MEDS: PANTOPRAZOLE 40 MG TABLET PO ×2 (09:19→17:14)
[2020-11-09] MEDS: SIMVASTATIN 10 MG TABLET PO (09:19)
[2020-11-09] MEDS: GABAPENTIN 100 MG CAPSULE PO ×3 (09:19→17:14)
[2020-11-09] MEDS: METOPROLOL TARTRATE 25 MG TABLET PO ×2 (09:20→20:14)
[2020-11-09] MEDS: FOLIC ACID 1 MG TABLET BY MOUTH (09:21)
[2020-11-09] MEDS: SERTRALINE HCL 50 MG TABLET PO (09:21)
[2020-11-09] MEDS: ASPIRIN 325 MG ENTERIC TABLET BY MOUTH (09:21)
[2020-11-09] MEDS: MULTIVITAMINS THERAPEUTIC TAB (*BKC) 1 TABLET PO (09:21)
[2020-11-09] MEDS: predniSONE 2.5 MG TABLET PO (09:21)
[2020-11-09] MEDS: DOCUSATE SODIUM 100 MG CAPSULE PO (09:27)
[2020-11-09] MEDS: LACTIC ACID 12% LOTION 225 BTL 1 APPLIC TOPICAL (09:31)
[2020-11-09 11:39] LABS: Glucose Point of Care 126 (65-105)
--- NOTE | 2020-11-09 12:03 | WPDINFPN2 ---
Progress Note: A&P Assessment and Plan (1) MRSA (methicillin resistant Staphylococcus aureus) septicemia: Code(s): A41.02 - Sepsis due to Methicillin resistant Staphylococcus aureus Status: Acute Assessment and Plan: 1. MRSA bacteremia with infection, R foot source, with chronic osteomyelitis very likely. Microbiologic cure. POD # 1 BKA 2. Normal ABIs, but suspect small vessel disease 3. DM, well controlled, long standing 4. AF with bradycardia REC Vanc #16 / 17 days, through tomorrow AM. Then oral therapy (e.g. TMP-SMX) through 11/15. Subjective Date/time seen: 11/09/20 12:03 Interval history: pain under control at stump, though not gone. He says he is tired of being in and out of the hospital over the past 5 years Exam Narrative: Exam Narrative: afebrile Const: General: no acute distress Resp: Effort & Inspection: normal respiratory effort Auscultation: clear to auscultation bilaterally Cardio: Rate: regular rate Rhythm: regular rhythm Heart sounds: no gallops and no murmurs GI: Inspection: non-distended GI Palp: Yes Soft to palpation and No Tenderness to palpation present (GI) Objective Data Vital Signs Vital Signs: Vital Signs - 24 hr 11/08/20 14:05 11/08/20 14:20 11/08/20 14:35 Temperature 36.2 C L Pulse Rate 84 81 76 Respiratory Rate 14 16 18 Blood Pressure 195/116 H 199/109 H 184/96 H Pulse Oximetry 100 100 99 11/08/20 14:50 11/08/20 15:01 11/08/20 15:19 Temperature Pulse Rate 72 76 73 Respiratory Rate 20 20 22 H Blood Pressure 180/102 H 156/118 H 162/77 H Pulse Oximetry 98 100 98 11/08/20 15:40 11/08/20 15:55 11/08/20 16:25 Temperature 36.0 C L 36.4 C 36.4 C L Pulse Rate 86 104 H 76 Respiratory Rate 18 20 18 Blood Pressure 195/78 H 163/88 H 166/91 H Pulse Oximetry 97 97 94 11/08/20 17:34 11/08/20 20:00 11/08/20 21:00 Temperature 36.6 C Pulse Rate 75 70 70 Respiratory Rate 22 H 24 H Blood Pressure 182/94 H Pulse Oximetry 99 98 01/12/21 22:00 11/09/20 02:00 11/09/20 06:00 Temperature 37.2 C 36.9 C 36.7 C Pulse Rate 70 62 80 Respiratory Rate 24 H 18 20 Blood Pressure 174/74 H 172/72 H 185/95 H Pulse Oximetry 98 96 99 11/09/20 09:20 Temperature Pulse Rate 62 Respiratory Rate Blood Pressure Pulse Oximetry Intake/Output Intake/Output: Intake & Output 11/06/20 11/07/20 11/08/20 11/09/20 23:59 23:59 23:59 23:59 Intake Total 2690 1270 1365 1350 Output Total 1850 1050 1375 1815 Balance 840 396 -30 -868 Meds/Results Medications: Active Medications Generic Name Dose Route Start Last Admin Trade Name Freq PRN Reason Stop Dose Admin Albuterol 2.5 mg 10/25/20 03:40 Albuterol Sulfate Neb 2.5 Mg/3 Ml Inh INHALATION TIDRT PRN Shortness Of Breath Alprazolam 1 mg 10/25/20 00:44 11/09/20 09:19 Alprazolam (*Crx) 0.5 Mg Tablet PO 1 mg TID PRN Administration anxiety Aspirin 325 mg 10/25/20 09:00 11/09/20 09:21 Aspirin 325 Mg Enteric Tablet BY MOUTH 325 mg DAILY KALPESH Administration Dextrose 12.5 gm 10/25/20 00:40 Dextrose 50% 25 Gm/50 Ml Syringe IV PUSH PRN PRN Hypoglycemia Protocol Diphenhydramine HCl 25 mg 11/08/20 19:52 11/08/20 21:00 Diphenhydramine Hcl Cap 25 Mg Capsule PO 25 mg Q6H PRN Administration Itching Docusate Sodium 100 mg 10/25/20 09:00 11/09/20 09:27 Docusate Sodium 100 Mg Capsule PO 100 mg DAILY KALPESH Administration Folic Acid 1 mg 10/25/20 09:00 11/09/20 09:21 Folic Acid 1 Mg Tablet BY MOUTH 1 mg DAILY KALPESH Administration Gabapentin 100 mg 10/25/20 09:00 11/09/20 09:19 Gabapentin 100 Mg Capsule PO 100 mg TID KALPESH Administration Glucagon 1 mg 10/25/20 00:40 Glucagon For Inj 1 Mg Vial IM PRN PRN Hypoglycemia Protocol Glucose 15 gm 10/25/20 00:40 Glucose Oral Gel 15 Gm Of Glucse In 37.5 Gm Tube PO PRN PRN Hypoglycemia Protocol Dextrose 1,000 mls @ 100 mls/hr
--- NOTE | 2020-11-09 12:29 | PM.IMPN ---
Progress Note: A&P Assessment and Plan (1) Osteomyelitis of left foot: Qualifiers: Osteomyelitis type: unspecified type Qualified Code(s): M86.9 - Osteomyelitis, unspecified Code(s): M86.9 - Osteomyelitis, unspecified Status: Acute Assessment and Plan: Patient is 74-year-old male with history of alcohol abuse, atrial fibrillation, chronic respiratory failure, diabetes, diabetes wound ulce had Bka done. Now c/o having a pain otherwise stable. (2) Alcohol abuse: Code(s): F10.10 - Alcohol abuse, uncomplicated Status: Acute Assessment and Plan: Patient clinically stable will monitor with CIWA protocol (3) Persistent atrial fibrillation: Code(s): I48.19 - Other persistent atrial fibrillation Status: Acute Assessment and Plan: Rate is controlled patient is not systematically anticoagulant on aspirin full dose Additional Plan Will continue current plan of care and treatment. Will increase pain medication. Will start rehab once patient is stable. Subjective Date/time seen: 11/09/20 12:29 Interval history: Patient was seen during the morning rounds today. Patient has pain in the left stump area. Patient denies any shortness of breath or chest pain. No fever no chills. Mood stable. Review of Systems Review of Systems: All systems reviewed & are unremarkable except as noted in HPI and below ROS unobtainable: Yes unobtainable due to medical condition Exam Const: General: cooperative and no acute distress Orientation/consciousness: oriented to person, oriented to place, oriented to time and patient oriented x3 HENMT: Head: normal to inspection Ears: hearing grossly normal bilaterally and external ears normal General nose exam: Normal external nose present Face and sinus: normal facial exam Mouth: Yes Normal oral and palatal mucosa present Eyes: General: appearance normal, both eyes and all related structures Neck: Neck: normal visual inspection and full ROM Chest: Chest palpation & inspection: normal inspection of the chest and normal palpation of entire chest wall Resp: Effort & Inspection: normal respiratory effort Auscultation: clear to auscultation bilaterally Cardio: Jugular venous distension: no JVD Palpation: normal PMI Rate: regular rate Heart sounds: S1 normal heart sound present and S2 normal heart sound present GI: Inspection: normal to inspection GI Palp: No abdominal tenderness Neuro: General: oriented to person, oriented to place, oriented to time and patient oriented x3 Cranial nerves: Yes CN's II-XII intact bilaterally Speech: normal speech Gait exam (Neuro): Normal gait present Motor exam (neuro): 5/5 motor strength present throughout Sensory Exam: normal sensation Extrem: Left lower extremity: normal to inspection (Staus post left bka.) Psych: Appearance: grossly normal Objective Data Vital Signs Vital Signs: Vital Signs - 24 hr 11/08/20 14:05 11/08/20 14:20 11/08/20 14:35 Temperature 36.2 C L Pulse Rate 84 81 76 Respiratory Rate 14 16 18 Blood Pressure 195/116 H 199/109 H 184/96 H Pulse Oximetry 100 100 99 11/08/20 14:50 11/08/20 15:01 11/08/20 15:19 Temperature Pulse Rate 72 76 73 Respiratory Rate 20 20 22 H Blood Pressure 180/102 H 156/118 H 162/77 H Pulse Oximetry 98 100 98 11/08/20 15:40 11/08/20 15:55 11/08/20 16:25 Temperature 36.0 C L 36.4 C 36.4 C L Pulse Rate 86 104 H 76 Respiratory Rate 18 20 18 Blood Pressure 195/78 H 163/88 H 166/91 H Pulse Oximetry 97 97 94 11/08/20 17:34 11/08/20 20:00 11/08/20 21:00 Temperature 36.6 C Pulse Rate 75 70 70 Respiratory Rate 22 H 24 H Blood Pressure 182/94 H Pulse Oximetry 99 98 11/08/20 22:00 11/09/20 02:00 11/09/20 06:00 Temperature 37.2 C 36.9 C 36.7 C Pulse Rate 70 62 80 Respiratory Rate 24 H 18 20 Blood Pressure 174/74 H 172/72 H 185/95 H Pulse Oximetry 98 96 99 11/09/20 09:20 Temperature Pulse Rate 62 Respirat
[2020-11-09] MEDS: MAGNESIUM OXIDE 400 MG TABLET PO (12:44)
[2020-11-09 17:00] LABS: Glucose Point of Care 114 (65-105)
[2020-11-09] MEDS: diphenhydrAMINE HCl CAP 25 MG CAPSULE PO ×2 (17:24→20:13)
[2020-11-10] VITALS (7 sets, daily range): BP systolic 117–141; BP diastolic 62–72; PULSE 62–73; RESP 16–20; TEMP 36.6–36.9; O2SAT 93–99
[2020-11-10] MEDS: MORPHINE SULFATE (*CRX) 4 MG/ML INJ 2 MG IV PUSH ×5 (03:09→22:35)
[2020-11-10 05:37] LABS: Hematocrit 31.7 % (42.0-52.0); Hemoglobin 9.4 g/dL (14.0-18.0); Mean Corpuscular HGB Conc 29.7 g/dl (32-36); Mean Corpuscular Volume 84.3 fl (80-100); Mean Platelet Volume 9.5 fl (7.4-10.4); Platelet Count Result 238 k/mm3 (150-375); Red Blood Count 3.76 M/mm3 (4.6-6.20); Red Cell Distribution Width 14.3 % (11.5-14.5); White Blood Count 9.9 K/mm3 (4.5-10.0)
[2020-11-10 05:54] LABS: Anion Gap 3 mmol/L (8-16); Blood Urea Nitrogen 19 mg/dL (9-20); Calcium 8.5 mg/dL (8.4-10.2); Carbon Dioxide 32 mmol/L (22-30); Chloride 100 mmol/L (98-107); Estimated CRCL calculation 51 ml/min; Estimated Glomerular Filt Rate 59; Glucose 102 mg/dL (75-110); Potassium 4.2 mmol/L (3.4-5.0); Sodium 135 mmol/L (137-145)
[2020-11-10] MEDS: traMADol HCL (*CRX) 50 MG TABLET PO ×3 (06:48→20:54)
--- NOTE | 2020-11-10 07:36 | WPDPN ---
Progress Note: A&P Assessment and Plan (1) Osteomyelitis of left foot: Qualifiers: Osteomyelitis type: unspecified type Qualified Code(s): M86.9 - Osteomyelitis, unspecified Code(s): M86.9 - Osteomyelitis, unspecified Status: Acute Assessment and Plan: Condition eliminated by surgery. Antibiotics continue due to Septicemia with a termination plan. (2) MRSA (methicillin resistant Staphylococcus aureus) septicemia: Code(s): A41.02 - Sepsis due to Methicillin resistant Staphylococcus aureus Status: Acute Assessment and Plan: Per Dr Longo. (3) Amputation of left lower extremity below knee: Code(s): S88.112A - Complete traumatic amputation at level between knee and ankle, left lower leg, initial encounter Status: Acute Assessment and Plan: POD # 2 without apparent healing problem. Will monitor bruising. Additional Plan Begin PT. Initiate Rehab. Exam Narrative: Exam Narrative: All labs satisfactory. VS stable. Heart rate seems to be controlled. Pt alert and talkative. Content with Tramadol for pain control. Stump redressed. Some bruising over distal tibia. Wound closure intact. PT not begun yet. Not officially a rehab admission yet. Objective Data Vital Signs Vital Signs: Vital Signs - 24 hr 11/09/20 09:20 11/09/20 14:00 11/09/20 20:14 Temperature 37.0 C Pulse Rate 62 102 H 68 Respiratory Rate 16 Blood Pressure 130/62 Pulse Oximetry 92 11/09/20 20:20 11/09/20 21:39 11/10/20 06:00 Temperature 36.2 C L 36.6 C Pulse Rate 68 66 62 Respiratory Rate 16 18 20 Blood Pressure 116/69 141/72 H Pulse Oximetry 92 98 93 Intake/Output Intake/Output: Intake & Output 11/07/20 11/08/20 11/09/20 11/10/20 23:59 23:59 23:59 23:59 Intake Total 1270 1615 1750 400 Output Total 1050 1375 2065 600 Balance 220 240 -315 -200 Meds/Results Medications: Active Medications Generic Name Dose Route Start Last Admin Trade Name Freq PRN Reason Stop Dose Admin Albuterol 2.5 mg 10/25/20 03:40 Albuterol Sulfate Neb 2.5 Mg/3 Ml Inh INHALATION TIDRT PRN Shortness Of Breath Alprazolam 1 mg 10/25/20 00:44 11/09/20 22:14 Alprazolam (*Crx) 0.5 Mg Tablet PO 1 mg TID PRN Administration anxiety Aspirin 325 mg 10/25/20 09:00 11/09/20 09:21 Aspirin 325 Mg Enteric Tablet BY MOUTH 325 mg DAILY KALPESH Administration Dextrose 12.5 gm 10/25/20 00:40 Dextrose 50% 25 Gm/50 Ml Syringe IV PUSH PRN PRN Hypoglycemia Protocol Diphenhydramine HCl 25 mg 11/08/20 19:52 11/09/20 20:13 Diphenhydramine Hcl Cap 25 Mg Capsule PO 25 mg Q6H PRN Administration Itching Docusate Sodium 100 mg 10/25/20 09:00 11/09/20 09:27 Docusate Sodium 100 Mg Capsule PO 100 mg DAILY KALPESH Administration Folic Acid 1 mg 10/25/20 09:00 11/09/20 09:21 Folic Acid 1 Mg Tablet BY MOUTH 1 mg DAILY KALPESH Administration Gabapentin 100 mg 10/25/20 09:00 11/09/20 17:14 Gabapentin 100 Mg Capsule PO 100 mg TID KALPESH Administration Glucagon 1 mg 10/25/20 00:40 Glucagon For Inj 1 Mg Vial IM PRN PRN Hypoglycemia Protocol Glucose 15 gm 10/25/20 00:40 Glucose Oral Gel 15 Gm Of Glucse In 37.5 Gm Tube PO PRN PRN Hypoglycemia Protocol Dextrose 1,000 mls @ 100 mls/hr 10/25/20 00:40 Dextrose 5% 1,000 Ml IVPB PRN PRN Hypoglycemia Protocol Vancomycin HCl 1,250 mg in 250 mls @ 200 mls/hr 10/31/20 20:00 11/09/20 20:11 Vancomycin 1,250 Mg/D5w 250 Ml IVPB 200 mls/hr Q24H KALPESH Administration Insulin Aspart 2 - 5 units 10/25/20 08:00 11/09/20 17:00 Insulin Aspart (*Bkc) 100 Units/Ml SUB-Q Not Given TIDWM COUNTS INCLUDE 234 BEDS AT [facility] Protocol Ipratropium Cooter 0.5 mg 10/25/20 03:41 Ipratropium Br 0.02% Inh Soln 0.5 Mg/2.5 Ml Vial INHALATION TIDRT PRN Shortness Of Breath Lactic Acid 1 applic 10/26/20 09:00 11/09/20 09:3
[2020-11-10] MEDS: ASPIRIN 325 MG ENTERIC TABLET BY MOUTH (08:11)
[2020-11-10] MEDS: predniSONE 2.5 MG TABLET PO (08:11)
[2020-11-10] MEDS: DOCUSATE SODIUM 100 MG CAPSULE PO (08:11)
[2020-11-10] MEDS: SERTRALINE HCL 50 MG TABLET PO (08:12)
[2020-11-10] MEDS: FOLIC ACID 1 MG TABLET BY MOUTH (08:12)
[2020-11-10] MEDS: MAGNESIUM OXIDE 400 MG TABLET PO (08:12)
[2020-11-10] MEDS: MULTIVITAMINS THERAPEUTIC TAB (*BKC) 1 TABLET PO (08:12)
[2020-11-10] MEDS: GABAPENTIN 100 MG CAPSULE PO ×3 (08:12→17:24)
[2020-11-10] MEDS: PANTOPRAZOLE 40 MG TABLET PO ×2 (08:12→17:24)
[2020-11-10] MEDS: SIMVASTATIN 10 MG TABLET PO (08:13)
[2020-11-10] MEDS: METOPROLOL TARTRATE 25 MG TABLET PO ×2 (08:14→19:46)
[2020-11-10] MEDS: LACTIC ACID 12% LOTION 225 BTL 1 APPLIC TOPICAL (08:14)
[2020-11-10 11:47] LABS: Glucose Point of Care 128 (65-105)
--- NOTE | 2020-11-10 14:12 | PM.IMPN ---
Progress Note: A&P Assessment and Plan (1) Osteomyelitis of left foot: Qualifiers: Osteomyelitis type: unspecified type Qualified Code(s): M86.9 - Osteomyelitis, unspecified Code(s): M86.9 - Osteomyelitis, unspecified Status: Acute Assessment and Plan: Patient is 74-year-old male with history of alcohol abuse, atrial fibrillation, chronic respiratory failure, diabetes, OM, sp L BKA Pain control, PT/ OT (2) Alcohol abuse: Code(s): F10.10 - Alcohol abuse, uncomplicated Status: Acute Assessment and Plan: Patient clinically stable will monitor with CIWA protocol (3) Persistent atrial fibrillation: Code(s): I48.19 - Other persistent atrial fibrillation Status: Acute Assessment and Plan: Rate is controlled patient on ASA only Subjective Date/time seen: 11/10/20 14:12 Interval history: 74-year-old male with multiple medical problems including history of alcohol abuse, atrial fibrillation, chronic respiratory failure, diabetes, hypertension, Patient has pain in the left stump area and dry skin all over. Sp amputation for OM Review of Systems Review of Systems: All systems reviewed & are unremarkable except as noted in HPI and below Exam Narrative: Exam Narrative: Chronically ill appearing man HEENT: eyes are clear and none icteric LUNGS: Bilateral fair entry with rhonchi HEART: Irregularly irregular ABD: BS+, Soft and nontender MS:L Below knee amputation Skin : dry all over ichthyosis Objective Data Vital Signs Vital Signs: Vital Signs - 24 hr 11/09/20 20:14 11/09/20 20:20 11/09/20 21:39 Temperature 36.2 C L Pulse Rate 68 68 66 Respiratory Rate 16 18 Blood Pressure 116/69 Pulse Oximetry 92 98 11/10/20 06:00 11/10/20 08:14 11/10/20 09:04 Temperature 36.6 C Pulse Rate 62 62 Respiratory Rate 20 20 Blood Pressure 141/72 H Pulse Oximetry 93 93 Intake/Output Intake/Output: Intake & Output 11/07/20 11/08/20 11/09/20 11/10/20 23:59 23:59 23:59 23:59 Intake Total 1270 1615 1750 1230 Output Total 1050 1375 2065 600 Balance 220 240 -315 630 Meds/Results Medications: Active Medications Generic Name Dose Route Start Last Admin Trade Name Freq PRN Reason Stop Dose Admin Albuterol 2.5 mg 10/25/20 03:40 Albuterol Sulfate Neb 2.5 Mg/3 Ml Inh INHALATION TIDRT PRN Shortness Of Breath Alprazolam 1 mg 10/25/20 00:44 11/09/20 22:14 Alprazolam (*Crx) 0.5 Mg Tablet PO 1 mg TID PRN Administration anxiety Aspirin 325 mg 10/25/20 09:00 11/10/20 08:11 Aspirin 325 Mg Enteric Tablet BY MOUTH 325 mg DAILY KALPESH Administration Dextrose 12.5 gm 10/25/20 00:40 Dextrose 50% 25 Gm/50 Ml Syringe IV PUSH PRN PRN Hypoglycemia Protocol Diphenhydramine HCl 25 mg 11/08/20 19:52 11/09/20 20:13 Diphenhydramine Hcl Cap 25 Mg Capsule PO 25 mg Q6H PRN Administration Itching Docusate Sodium 100 mg 10/25/20 09:00 11/10/20 08:11 Docusate Sodium 100 Mg Capsule PO 100 mg DAILY KALPESH Administration Folic Acid 1 mg 10/25/20 09:00 11/10/20 08:12 Folic Acid 1 Mg Tablet BY MOUTH 1 mg DAILY KALPESH Administration Gabapentin 100 mg 10/25/20 09:00 11/10/20 13:12 Gabapentin 100 Mg Capsule PO 100 mg TID KALPESH Administration Glucagon 1 mg 10/25/20 00:40 Glucagon For Inj 1 Mg Vial IM PRN PRN Hypoglycemia Protocol Glucose 15 gm 10/25/20 00:40 Glucose Oral Gel 15 Gm Of Glucse In 37.5 Gm Tube PO PRN PRN Hypoglycemia Protocol Dextrose 1,000 mls @ 100 mls/hr 10/25/20 00:40 Dextrose 5% 1,000 Ml IVPB PRN PRN Hypoglycemia Protocol Vancomycin HCl 1,250 mg in 250 mls @ 200 mls/hr 10/31/20 20:00 11/09/20 20:11 Vancomycin 1,250 Mg/D5w 250 Ml IVPB 200 mls/hr Q24H KALPESH Administration Insulin Aspart 2 - 5 units 10/25/20 08:00 11/10/20 12:12 Insulin Aspart (*Bkc) 100 Units/M
[2020-11-10] MEDS: ALPRAZolam (*CRX) 0.5 MG TABLET 1 MG PO ×2 (14:24→19:48)
--- NOTE | 2020-11-10 15:55 | WPDINFPN2 ---
Progress Note: A&P Assessment and Plan (1) MRSA (methicillin resistant Staphylococcus aureus) septicemia: Code(s): A41.02 - Sepsis due to Methicillin resistant Staphylococcus aureus Status: Acute Assessment and Plan: 1. MRSA bacteremia with infection, R foot source, with chronic osteomyelitis very likely. Microbiologic cure. POD # 2 BKA 2. Normal ABIs, but suspect small vessel disease 3. DM, well controlled, long standing 4. AF with bradycardia REC Vanc #17, stop and place on oral through 11/15. No rash to explain his ithching, follow Subjective Date/time seen: 11/10/20 15:55 Interval history: itching since his operation day Exam Narrative: Exam Narrative: afebrile Const: General: no acute distress Skin: General skin exam: normal color, no rashes or lesions noted and no erythema Objective Data Vital Signs Vital Signs: Vital Signs - 24 hr 11/09/20 20:14 11/09/20 20:20 11/09/20 21:39 Temperature 36.2 C L Pulse Rate 68 68 66 Respiratory Rate 16 18 Blood Pressure 116/69 Pulse Oximetry 92 98 11/10/20 06:00 11/10/20 08:14 11/10/20 09:04 Temperature 36.6 C Pulse Rate 62 62 Respiratory Rate 20 20 Blood Pressure 141/72 H Pulse Oximetry 93 93 11/10/20 14:00 Temperature 36.6 C Pulse Rate 73 Respiratory Rate 16 Blood Pressure 117/67 Pulse Oximetry 99 Intake/Output Intake/Output: Intake & Output 11/07/20 11/08/20 11/09/20 11/10/20 23:59 23:59 23:59 23:59 Intake Total 1270 1615 1750 1230 Output Total 1050 1375 2065 600 Balance 220 240 -315 630 Meds/Results Medications: Active Medications Generic Name Dose Route Start Last Admin Trade Name Freq PRN Reason Stop Dose Admin Albuterol 2.5 mg 10/25/20 03:40 Albuterol Sulfate Neb 2.5 Mg/3 Ml Inh INHALATION TIDRT PRN Shortness Of Breath Alprazolam 1 mg 10/25/20 00:44 11/10/20 14:24 Alprazolam (*Crx) 0.5 Mg Tablet PO 1 mg TID PRN Administration anxiety Aspirin 325 mg 10/25/20 09:00 11/10/20 08:11 Aspirin 325 Mg Enteric Tablet BY MOUTH 325 mg DAILY KALPESH Administration Dextrose 12.5 gm 10/25/20 00:40 Dextrose 50% 25 Gm/50 Ml Syringe IV PUSH PRN PRN Hypoglycemia Protocol Diphenhydramine HCl 25 mg 11/08/20 19:52 11/09/20 20:13 Diphenhydramine Hcl Cap 25 Mg Capsule PO 25 mg Q6H PRN Administration Itching Docusate Sodium 100 mg 10/25/20 09:00 11/10/20 08:11 Docusate Sodium 100 Mg Capsule PO 100 mg DAILY KALPESH Administration Folic Acid 1 mg 10/25/20 09:00 11/10/20 08:12 Folic Acid 1 Mg Tablet BY MOUTH 1 mg DAILY KALPESH Administration Gabapentin 100 mg 10/25/20 09:00 11/10/20 13:12 Gabapentin 100 Mg Capsule PO 100 mg TID KALPESH Administration Glucagon 1 mg 10/25/20 00:40 Glucagon For Inj 1 Mg Vial IM PRN PRN Hypoglycemia Protocol Glucose 15 gm 10/25/20 00:40 Glucose Oral Gel 15 Gm Of Glucse In 37.5 Gm Tube PO PRN PRN Hypoglycemia Protocol Hydrocortisone 1 applic 11/10/20 21:00 Hydrocortisone 1% 30 Gm Cream TOPICAL Q12HR KALPESH Dextrose 1,000 mls @ 100 mls/hr 10/25/20 00:40 Dextrose 5% 1,000 Ml IVPB PRN PRN Hypoglycemia Protocol Vancomycin HCl 1,250 mg in 250 mls @ 200 mls/hr 10/31/20 20:00 11/09/20 20:11 Vancomycin 1,250 Mg/D5w 250 Ml IVPB 200 mls/hr Q24H KALPESH Administration Insulin Aspart 2 - 5 units 10/25/20 08:00 11/10/20 12:12 Insulin Aspart (*Bkc) 100 Units/Ml SUB-Q Not Given [facility] Protocol Ipratropium Mcgee 0.5 mg 10/25/20 03:41 Ipratropium Br 0.02% Inh Soln 0.5 Mg/2.5 Ml Vial INHALATION TIDRT PRN Shortness Of Breath Lactic Acid 1 applic 10/26/20 09:00 11/10/20 08:14 Lactic Acid 12% Lotion 225 Btl TOPICAL 1 applic [facility] Administration Magnesium Oxide 400 mg 10/26/20 09:05 11/10/20 08:12 Magnesium Oxide 400 Mg Tablet PO 400 mg QAM KALPESH Administration Metoprolo
[2020-11-10 17:05] LABS: Glucose Point of Care 103 (65-105)
[2020-11-10] MEDS: HYDROCORTISONE 1% 30 GM CREAM 1 APPLIC TOPICAL (19:46)
[2020-11-11] VITALS (7 sets, daily range): BP systolic 113–136; BP diastolic 37–72; PULSE 48–84; RESP 18–22; TEMP 36.3–36.9; O2SAT 94–99
[2020-11-11] MEDS: traMADol HCL (*CRX) 50 MG TABLET PO ×4 (00:53→23:55)
[2020-11-11] MEDS: diphenhydrAMINE HCl CAP 25 MG CAPSULE PO (00:54)
[2020-11-11] MEDS: ALPRAZolam (*CRX) 0.5 MG TABLET 1 MG PO ×2 (02:56→20:40)
[2020-11-11 05:19] LABS: Hematocrit 31.9 % (42.0-52.0); Hemoglobin 9.5 g/dL (14.0-18.0); Mean Corpuscular HGB Conc 29.8 g/dl (32-36); Mean Corpuscular Hemoglobin 25.5 pg (26-34); Mean Corpuscular Volume 85.5 fl (80-100); Mean Platelet Volume 9.7 fl (7.4-10.4); Platelet Count Result 222 k/mm3 (150-375); Red Blood Count 3.73 M/mm3 (4.6-6.20); Red Cell Distribution Width 14.5 % (11.5-14.5)
[2020-11-11 05:30] LABS: Anion Gap 2 mmol/L (8-16); Blood Urea Nitrogen 18 mg/dL (9-20); Calcium 7.8 mg/dL (8.4-10.2); Carbon Dioxide 30 mmol/L (22-30); Chloride 103 mmol/L (98-107); Estimated CRCL calculation 58 ml/min; Estimated Glomerular Filt Rate > 60; Glucose 121 mg/dL (75-110); Sodium 135 mmol/L (137-145)
[2020-11-11 06:21] LABS: Glucose Point of Care 111 (65-105)
[2020-11-11] MEDS: METOPROLOL TARTRATE 25 MG TABLET PO ×2 (08:14→20:38)
[2020-11-11] MEDS: FOLIC ACID 1 MG TABLET BY MOUTH (08:15)
[2020-11-11] MEDS: SERTRALINE HCL 50 MG TABLET PO (08:15)
[2020-11-11] MEDS: GABAPENTIN 100 MG CAPSULE PO ×3 (08:15→17:07)
[2020-11-11] MEDS: DOCUSATE SODIUM 100 MG CAPSULE PO (08:15)
[2020-11-11] MEDS: ASPIRIN 325 MG ENTERIC TABLET BY MOUTH (08:15)
[2020-11-11] MEDS: MAGNESIUM OXIDE 400 MG TABLET PO (08:15)
[2020-11-11] MEDS: predniSONE 2.5 MG TABLET PO (08:15)
[2020-11-11] MEDS: PANTOPRAZOLE 40 MG TABLET PO ×2 (08:15→17:08)
[2020-11-11] MEDS: HYDROCORTISONE 1% 30 GM CREAM 1 APPLIC TOPICAL ×2 (08:16→20:38)
[2020-11-11] MEDS: MULTIVITAMINS THERAPEUTIC TAB (*BKC) 1 TABLET PO (08:16)
[2020-11-11] MEDS: LACTIC ACID 12% LOTION 225 BTL 1 APPLIC TOPICAL (08:16)
[2020-11-11] MEDS: SIMVASTATIN 10 MG TABLET PO (08:16)
--- NOTE | 2020-11-11 09:34 | PCOTNOTE ---
Attempted to see Pt this AM for OT services. Pt declined therapy stating that he was not feeling good but was not able to specify exactly what was bothering him. Pt stated that he was trying to finish his breakfast right now. Therapist observed that pt repeatedly started to fall asleep while talking with therapist and required verbal arousal to wake up. Therapist stated that they will attempt to see pt this PM if able to, with pt nodding head for acknowledgement. Will continue per POC duration/frequency tomorrow.
--- NOTE | 2020-11-11 10:48 | PCPTNOTE ---
Attempted to see patient for PT, however patient having difficulty staying awake to participate. Patient states he feels sleepy and not able to keep eyes open. O2 sats 98% and HR 54. PT will continue to follow per plan of care.
--- NOTE | 2020-11-11 11:07 | PM.IMPN ---
Progress Note: A&P Assessment and Plan (1) Osteomyelitis of left foot: Qualifiers: Osteomyelitis type: unspecified type Qualified Code(s): M86.9 - Osteomyelitis, unspecified Code(s): M86.9 - Osteomyelitis, unspecified Status: Acute Assessment and Plan: Patient is 74-year-old male with history of alcohol abuse, atrial fibrillation, chronic respiratory failure, diabetes, OM, sp L BKA Pain control, PT/ OT. Mrsa infection, continue iv vancomycin until 08/15. Pt to go to rehab later. Pt having some itching from vancomycin try Benadryl for itch. (2) Alcohol abuse: Code(s): F10.10 - Alcohol abuse, uncomplicated Status: Acute Assessment and Plan: Patient clinically stable will monitor with [facility] protocol (3) Persistent atrial fibrillation: Code(s): I48.19 - Other persistent atrial fibrillation Status: Acute Assessment and Plan: Rate is controlled patient on ASA only Additional Plan Will continue current plan of care and treatment. Will increase pain medication. Will start rehab once patient is stable. Subjective Date/time seen: 11/11/20 11:07 Interval history: 74-year-old male with multiple medical problems including history of alcohol abuse, atrial fibrillation, chronic respiratory failure, diabetes, hypertension, Patient has pain in the left stump area and dry skin all over. Sp amputation for OM, MRSA infection pt is on IV vancomycin, seen by Dr Painter [facility]. Review of Systems Review of Systems: All systems reviewed & are unremarkable except as noted in HPI and below Exam Narrative: Exam Narrative: Chronically ill appearing man HEENT: eyes are clear and none icteric LUNGS: Bilateral fair entry with rhonchi HEART: Irregularly irregular ABD: BS+, Soft and nontender MS:L Below knee amputation Skin : dry all over ichthyosis Objective Data Vital Signs Vital Signs: Vital Signs - 24 hr 11/10/20 14:00 11/10/20 19:20 11/10/20 19:46 Temperature 36.6 C Pulse Rate 73 68 68 Respiratory Rate 16 16 Blood Pressure 117/67 Pulse Oximetry 99 99 11/10/20 22:00 11/11/20 06:00 11/11/20 08:00 Temperature 36.9 C 36.9 C Pulse Rate 72 84 80 Respiratory Rate 20 18 18 Blood Pressure 141/62 H 136/37 L Pulse Oximetry 98 94 94 11/11/20 08:14 Temperature Pulse Rate 80 Respiratory Rate Blood Pressure Pulse Oximetry Intake/Output Intake/Output: Intake & Output 11/08/20 11/09/20 11/10/20 11/11/20 23:59 23:59 23:59 23:59 Intake Total 1615 1750 1970 690 Output Total 1375 2065 900 650 Balance 240 -315 1070 40 Meds/Results Medications: Active Medications Generic Name Dose Route Start Last Admin Trade Name Freq PRN Reason Stop Dose Admin Albuterol 2.5 mg 10/25/20 03:40 Albuterol Sulfate Neb 2.5 Mg/3 Ml Inh INHALATION TIDRT PRN Shortness Of Breath Alprazolam 1 mg 10/25/20 00:44 11/11/20 02:56 Alprazolam (*Crx) 0.5 Mg Tablet PO 1 mg TID PRN Administration anxiety Aspirin 325 mg 10/25/20 09:00 11/11/20 08:15 Aspirin 325 Mg Enteric Tablet BY MOUTH 325 mg DAILY KALPESH Administration Dextrose 12.5 gm 10/25/20 00:40 Dextrose 50% 25 Gm/50 Ml Syringe IV PUSH PRN PRN Hypoglycemia Protocol Diphenhydramine HCl 25 mg 11/08/20 19:52 11/11/20 00:54 Diphenhydramine Hcl Cap 25 Mg Capsule PO 25 mg Q6H PRN Administration Itching Docusate Sodium 100 mg 10/25/20 09:00 11/11/20 08:15 Docusate Sodium 100 Mg Capsule PO 100 mg DAILY KALPESH Administration Folic Acid 1 mg 10/25/20 09:00 11/11/20 08:15 Folic Acid 1 Mg Tablet BY MOUTH 1 mg DAILY KALPESH Administration Gabapentin 100 mg 10/25/20 09:00 11/11/20 08:15 Gabapentin 100 Mg Capsule PO 100 mg TID KALPESH Administration Glucagon 1 mg 10/25/20 00:40 Glucagon For Inj 1 Mg Vial IM PRN PRN Hypoglycemia Protocol Glucose 15 gm 10/25/20 00:40 Glucose Oral Gel 15 Gm O
[2020-11-11 11:57] LABS: Glucose Point of Care 103 (65-105)
[2020-11-11] MEDS: MORPHINE SULFATE (*CRX) 4 MG/ML INJ 2 MG IV PUSH (12:10)
--- NOTE | 2020-11-11 12:33 | WPDPN ---
Progress Note: A&P Additional Plan Daily dressing change will be assumed by nursing. I will check on the wound on Saturday. Exam Narrative: Exam Narrative: Alert. Tolerates bandage change well. Small serous exudate. Bruised area over the tibial stump is slightly larger today ~2.5 x 3 cm, but no blistering and the tissue turgor is normal. Staple line intact. Objective Data Vital Signs Vital Signs: Vital Signs - 24 hr 11/10/20 14:00 11/10/20 19:20 11/10/20 19:46 Temperature 36.6 C Pulse Rate 73 68 68 Respiratory Rate 16 16 Blood Pressure 117/67 Pulse Oximetry 99 99 11/10/20 22:00 11/11/20 06:00 11/11/20 08:00 Temperature 36.9 C 36.9 C Pulse Rate 72 84 80 Respiratory Rate 20 18 18 Blood Pressure 141/62 H 136/37 L Pulse Oximetry 98 94 94 11/11/20 08:14 Temperature Pulse Rate 80 Respiratory Rate Blood Pressure Pulse Oximetry Intake/Output Intake/Output: Intake & Output 11/08/20 11/09/20 11/10/20 11/11/20 23:59 23:59 23:59 23:59 Intake Total 1615 1750 1970 690 Output Total 1375 2065 900 650 Balance 240 -315 1070 40 Meds/Results Medications: Active Medications Generic Name Dose Route Start Last Admin Trade Name Freq PRN Reason Stop Dose Admin Albuterol 2.5 mg 10/25/20 03:40 Albuterol Sulfate Neb 2.5 Mg/3 Ml Inh INHALATION TIDRT PRN Shortness Of Breath Alprazolam 1 mg 10/25/20 00:44 11/11/20 02:56 Alprazolam (*Crx) 0.5 Mg Tablet PO 1 mg TID PRN Administration anxiety Aspirin 325 mg 10/25/20 09:00 11/11/20 08:15 Aspirin 325 Mg Enteric Tablet BY MOUTH 325 mg DAILY KALPESH Administration Dextrose 12.5 gm 10/25/20 00:40 Dextrose 50% 25 Gm/50 Ml Syringe IV PUSH PRN PRN Hypoglycemia Protocol Diphenhydramine HCl 25 mg 11/08/20 19:52 11/11/20 00:54 Diphenhydramine Hcl Cap 25 Mg Capsule PO 25 mg Q6H PRN Administration Itching Docusate Sodium 100 mg 10/25/20 09:00 11/11/20 08:15 Docusate Sodium 100 Mg Capsule PO 100 mg DAILY KALPESH Administration Folic Acid 1 mg 10/25/20 09:00 11/11/20 08:15 Folic Acid 1 Mg Tablet BY MOUTH 1 mg DAILY KALPESH Administration Gabapentin 100 mg 10/25/20 09:00 11/11/20 12:12 Gabapentin 100 Mg Capsule PO 100 mg TID KALPESH Administration Glucagon 1 mg 10/25/20 00:40 Glucagon For Inj 1 Mg Vial IM PRN PRN Hypoglycemia Protocol Glucose 15 gm 10/25/20 00:40 Glucose Oral Gel 15 Gm Of Glucse In 37.5 Gm Tube PO PRN PRN Hypoglycemia Protocol Hydrocortisone 1 applic 11/10/20 21:00 11/11/20 08:16 Hydrocortisone 1% 30 Gm Cream TOPICAL 1 applic Q12HR KALPESH Administration Dextrose 1,000 mls @ 100 mls/hr 10/25/20 00:40 Dextrose 5% 1,000 Ml IVPB PRN PRN Hypoglycemia Protocol Insulin Aspart 2 - 5 units 10/25/20 08:00 11/11/20 12:14 Insulin Aspart (*Bkc) 100 Units/Ml SUB-Q Not Given TIDWM [facility] Protocol Ipratropium [place] 0.5 mg 10/25/20 03:41 Ipratropium Br 0.02% Inh Soln 0.5 Mg/2.5 Ml Vial INHALATION TIDRT PRN Shortness Of Breath Lactic Acid 1 applic 10/26/20 09:00 11/11/20 08:16 Lactic Acid 12% Lotion 225 Btl TOPICAL 1 applic QAM [facility] Administration Magnesium Oxide 400 mg 10/26/20 09:05 11/11/20 08:15 Magnesium Oxide 400 Mg Tablet PO 400 mg QAM KALPESH Administration Metoprolol Tartrate 25 mg 11/08/20 21:00 11/11/20 08:14 Metoprolol Tartrate 25 Mg Tablet PO 25 mg Q12HR KALPESH Administration Morphine Sulfate 2 mg 11/08/20 17:56 11/11/20 12:10 Morphine Sulfate (*Crx) 4 Mg/Ml Inj IV PUSH 2 mg Q4H PRN Administration Pain Rated 7-10 Multivitamins Therapeutic 1 tablet 10/25/20 09:00 11/11/20 08:16 Multivitamins Therapeutic Tab (*Bkc) PO 1 tablet DAILY KALPESH Administration Ondansetron HCl 4 mg 11/08/20 11:27 Ondansetron Inj 4 Mg/2 Ml Vial IV PUSH ONCE PRN Nausea Pantoprazole Sodium 40 mg 10/25/20 09
[2020-11-11 16:42] LABS: Glucose Point of Care 128 (65-105)
[2020-11-12] MEDS: traMADol HCL (*CRX) 50 MG TABLET PO ×3 (05:39→19:32)
[2020-11-12 05:42] LABS: Hematocrit 30.8 % (42.0-52.0); Hemoglobin 9.2 g/dL (14.0-18.0); Mean Corpuscular HGB Conc 29.9 g/dl (32-36); Mean Corpuscular Hemoglobin 25.6 pg (26-34); Mean Corpuscular Volume 85.8 fl (80-100); Mean Platelet Volume 9.6 fl (7.4-10.4); Platelet Count Result 209 k/mm3 (150-375); Red Blood Count 3.59 M/mm3 (4.6-6.20); Red Cell Distribution Width 14.4 % (11.5-14.5); White Blood Count 6.9 K/mm3 (4.5-10.0)
[2020-11-12 05:54] LABS: Anion Gap 0 mmol/L (8-16); Blood Urea Nitrogen 18 mg/dL (9-20); Calcium 8.2 mg/dL (8.4-10.2); Carbon Dioxide 32 mmol/L (22-30); Chloride 103 mmol/L (98-107); Estimated CRCL calculation 46 ml/min; Estimated Glomerular Filt Rate 50; Glucose 97 mg/dL (75-110); Potassium 4.3 mmol/L (3.4-5.0); Sodium 135 mmol/L (137-145)
[2020-11-12 06:00] VITALS: BP 127/66; PULSE 95; RESP 20; TEMP 36.4; O2SAT 97
[2020-11-12 06:23] LABS: Glucose Point of Care 111 (65-105)
[2020-11-12] MEDS: predniSONE 2.5 MG TABLET PO (07:37)
[2020-11-12 08:00] VITALS: PULSE 95; RESP 20; O2SAT 97
[2020-11-12] MEDS: MAGNESIUM OXIDE 400 MG TABLET PO (08:40)
[2020-11-12] MEDS: ASPIRIN 325 MG ENTERIC TABLET BY MOUTH (08:41)
[2020-11-12] MEDS: SERTRALINE HCL 50 MG TABLET PO (08:41)
[2020-11-12] MEDS: SIMVASTATIN 10 MG TABLET PO (08:41)
[2020-11-12] MEDS: DOCUSATE SODIUM 100 MG CAPSULE PO (08:41)
[2020-11-12 08:42] VITALS: PULSE 95
[2020-11-12] MEDS: FOLIC ACID 1 MG TABLET BY MOUTH (08:42)
[2020-11-12] MEDS: METOPROLOL TARTRATE 25 MG TABLET PO ×2 (08:42→20:02)
[2020-11-12] MEDS: GABAPENTIN 100 MG CAPSULE PO ×3 (08:43→16:59)
[2020-11-12] MEDS: HYDROCORTISONE 1% 30 GM CREAM 1 APPLIC TOPICAL ×2 (08:43→20:02)
[2020-11-12] MEDS: PANTOPRAZOLE 40 MG TABLET PO ×2 (08:45→16:59)
[2020-11-12] MEDS: MULTIVITAMINS THERAPEUTIC TAB (*BKC) 1 TABLET PO (08:46)
[2020-11-12] MEDS: SALINE 0.65% NAS SOLN 44 ML BTL 1 SPRAY NASAL (08:52)
[2020-11-12] MEDS: LACTIC ACID 12% LOTION 225 BTL 1 APPLIC TOPICAL (09:06)
[2020-11-12] MEDS: diphenhydrAMINE HCl CAP 25 MG CAPSULE PO (12:09)
[2020-11-12 13:17] LABS: Glucose Point of Care 84 (65-105)
[2020-11-12 14:00] VITALS: BP 138/66; PULSE 71; RESP 18; TEMP 36.4; O2SAT 96
--- NOTE | 2020-11-12 14:20 | PM.IMPN ---
Progress Note: A&P Assessment and Plan (1) Osteomyelitis of left foot: Qualifiers: Osteomyelitis type: unspecified type Qualified Code(s): M86.9 - Osteomyelitis, unspecified Code(s): M86.9 - Osteomyelitis, unspecified Status: Acute Assessment and Plan: Patient is 74-year-old male with history of alcohol abuse, atrial fibrillation, chronic respiratory failure, diabetes, OM, sp L BKA Pain control, PT/ OT. Mrsa infection, continue iv vancomycin until 08/15. Pt to go to [facility] on Saturday Pt having some itching from vancomycin try Benadryl for itch. (2) Alcohol abuse: Code(s): F10.10 - Alcohol abuse, uncomplicated Status: Acute Assessment and Plan: Patient clinically stable will monitor with [facility]WA protocol (3) Persistent atrial fibrillation: Code(s): I48.19 - Other persistent atrial fibrillation Status: Acute Assessment and Plan: Rate is controlled patient on ASA only Subjective Date/time seen: 11/12/20 14:20 Interval history: 74-year-old male with multiple medical problems including history of alcohol abuse, atrial fibrillation, chronic respiratory failure, diabetes, hypertension, Patient has pain in the left stump area and dry skin all over. Sp amputation for OM, MRSA infection pt is on IV vancomycin, seen by Dr Painter OROSCO. Doing better today, hopeful discharge to [facility] team on Saturday. Review of Systems Review of Systems: All systems reviewed & are unremarkable except as noted in HPI and below Exam Narrative: Exam Narrative: Chronically ill appearing man HEENT: eyes are clear and none icteric LUNGS: Bilateral fair entry with rhonchi HEART: Irregularly irregular ABD: BS+, Soft and nontender MS:L Below knee amputation Skin : dry all over ichthyosis Objective Data Vital Signs Vital Signs: Vital Signs - 24 hr 11/11/20 20:00 11/11/20 20:38 11/11/20 20:42 Temperature 36.3 C L Pulse Rate 67 78 Respiratory Rate 22 H 22 H Blood Pressure 135/72 Pulse Oximetry 99 99 11/12/20 06:00 11/12/20 08:00 11/12/20 08:42 Temperature 36.4 C L Pulse Rate 95 95 95 Respiratory Rate 20 20 Blood Pressure 127/66 Pulse Oximetry 97 97 11/12/20 14:00 Temperature 36.4 C Pulse Rate 71 Respiratory Rate 18 Blood Pressure 138/66 Pulse Oximetry 96 Intake/Output Intake/Output: Intake & Output 11/09/20 11/10/20 11/11/20 11/12/20 23:59 23:59 23:59 23:59 Intake Total 1750 1970 1720 730 Output Total 2065 900 1150 300 Balance -315 1070 570 430 Meds/Results Medications: Active Medications Generic Name Dose Route Start Last Admin Trade Name Freq PRN Reason Stop Dose Admin Albuterol 2.5 mg 10/25/20 03:40 Albuterol Sulfate Neb 2.5 Mg/3 Ml Inh INHALATION TIDRT PRN Shortness Of Breath Alprazolam 1 mg 10/25/20 00:44 11/11/20 20:40 Alprazolam (*Crx) 0.5 Mg Tablet PO 1 mg TID PRN Administration anxiety Aspirin 325 mg 10/25/20 09:00 11/12/20 08:41 Aspirin 325 Mg Enteric Tablet BY MOUTH 325 mg DAILY KALPESH Administration Dextrose 12.5 gm 10/25/20 00:40 Dextrose 50% 25 Gm/50 Ml Syringe IV PUSH PRN PRN Hypoglycemia Protocol Diphenhydramine HCl 25 mg 11/08/20 19:52 11/12/20 12:09 Diphenhydramine Hcl Cap 25 Mg Capsule PO 25 mg Q6H PRN Administration Itching Docusate Sodium 100 mg 10/25/20 09:00 11/12/20 08:41 Docusate Sodium 100 Mg Capsule PO 100 mg DAILY KALPESH Administration Folic Acid 1 mg 10/25/20 09:00 11/12/20 08:42 Folic Acid 1 Mg Tablet BY MOUTH 1 mg DAILY KALPESH Administration Gabapentin 100 mg 10/25/20 09:00 11/12/20 13:14 Gabapentin 100 Mg Capsule PO 100 mg TID KALPESH Administration Glucagon 1 mg 10/25/20 00:40 Glucagon For Inj 1 Mg Vial IM PRN PRN Hypoglycemia Protocol Glucose 15 gm 10/25/20 00:40 Glucose Oral Gel 15 Gm Of Glucse In 37.5 Gm Tube PO PRN PRN Hypoglycemia Protocol H
[2020-11-12 16:33] LABS: Glucose Point of Care 113 (65-105)
[2020-11-12 18:46] LABS: SARS-CoV-2 RNA PCR Negative
[2020-11-12 20:02] VITALS: PULSE 62
[2020-11-12] MEDS: ALPRAZolam (*CRX) 0.5 MG TABLET 1 MG PO (20:02)
[2020-11-12 20:42] VITALS: BP 138/61; PULSE 76; RESP 22; TEMP 36.2; O2SAT 98
[2020-11-12 22:08] LABS: Glucose Point of Care 172 (65-105)
[2020-11-12] MEDS: MORPHINE SULFATE (*CRX) 4 MG/ML INJ 2 MG IV PUSH (22:14)
[2020-11-13] VITALS (7 sets, daily range): BP systolic 111–151; BP diastolic 43–76; PULSE 53–80; RESP 20–22; TEMP 36.2–36.3; O2SAT 97–98
[2020-11-13] MEDS: traMADol HCL (*CRX) 50 MG TABLET PO ×3 (04:02→20:31)
[2020-11-13 05:07] LABS: Hematocrit 27.4 % (42.0-52.0); Hemoglobin 8.3 g/dL (14.0-18.0); Mean Corpuscular HGB Conc 30.3 g/dl (32-36); Mean Corpuscular Hemoglobin 25.8 pg (26-34); Mean Corpuscular Volume 85.1 fl (80-100); Mean Platelet Volume 9.5 fl (7.4-10.4); Platelet Count Result 192 k/mm3 (150-375); Red Blood Count 3.22 M/mm3 (4.6-6.20); Red Cell Distribution Width 14.2 % (11.5-14.5); White Blood Count 6.9 K/mm3 (4.5-10.0)
[2020-11-13 05:22] LABS: Alanine Aminotransferase 17 U/L (4-50); Albumin Level 3.2 g/dL (3.5-5.1); Alkaline Phosphatase 93 U/L (38-126); Anion Gap 0 mmol/L (8-16); Aspartate Amino Transferase 47 U/L (17-59); Bilirubin,Total 0.3 mg/dL (0.2-1.3); Blood Urea Nitrogen 17 mg/dL (9-20); Carbon Dioxide 30 mmol/L (22-30); Chloride 102 mmol/L (98-107); Estimated CRCL calculation 46 ml/min; Estimated Glomerular Filt Rate 50; Glucose 89 mg/dL (75-110); Potassium 4.2 mmol/L (3.4-5.0); Sodium 132 mmol/L (137-145)
[2020-11-13 06:49] LABS: Glucose Point of Care 87 (65-105)
[2020-11-13] MEDS: predniSONE 2.5 MG TABLET PO (08:25)
[2020-11-13] MEDS: ASPIRIN 325 MG ENTERIC TABLET BY MOUTH (08:26)
[2020-11-13] MEDS: DOCUSATE SODIUM 100 MG CAPSULE PO (08:26)
[2020-11-13] MEDS: FOLIC ACID 1 MG TABLET BY MOUTH (08:26)
[2020-11-13] MEDS: MAGNESIUM OXIDE 400 MG TABLET PO (08:26)
[2020-11-13] MEDS: SERTRALINE HCL 50 MG TABLET PO (08:26)
[2020-11-13] MEDS: GABAPENTIN 100 MG CAPSULE PO ×3 (08:26→17:11)
[2020-11-13] MEDS: PANTOPRAZOLE 40 MG TABLET PO ×2 (08:27→17:11)
[2020-11-13] MEDS: MULTIVITAMINS THERAPEUTIC TAB (*BKC) 1 TABLET PO (08:27)
[2020-11-13] MEDS: METOPROLOL TARTRATE 25 MG TABLET PO ×2 (08:27→20:30)
[2020-11-13] MEDS: SIMVASTATIN 10 MG TABLET PO (08:27)
[2020-11-13] MEDS: LACTIC ACID 12% LOTION 225 BTL 1 APPLIC TOPICAL (08:28)
[2020-11-13] MEDS: HYDROCORTISONE 1% 30 GM CREAM 1 APPLIC TOPICAL ×2 (08:28→20:33)
[2020-11-13] MEDS: MORPHINE SULFATE (*CRX) 4 MG/ML INJ 2 MG IV PUSH (08:45)
[2020-11-13 12:18] LABS: Glucose Point of Care 96 (65-105)
--- NOTE | 2020-11-13 15:40 | PM.IMPN ---
Progress Note: A&P Assessment and Plan (1) Osteomyelitis of left foot: Qualifiers: Osteomyelitis type: unspecified type Qualified Code(s): M86.9 - Osteomyelitis, unspecified Code(s): M86.9 - Osteomyelitis, unspecified Status: Acute Assessment and Plan: Patient is 74-year-old male with history of alcohol abuse, atrial fibrillation, chronic respiratory failure, diabetes, OM, sp L BKA Pain control, PT/ OT. Mrsa infection, continue iv vancomycin until 08/15. Pt to go to [facility] on Saturday Pt having some itching from vancomycin try Benadryl for itch. 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 Sp amputation for OM, MRSA infection pt was on IV vancomycin until 11/[address] Painter [facility]CO started patient on Bactrim DS from 11/10 until 11/15,. Doing better today, hopeful discharge to [facility] team on Saturday. will continue to monitor and further recommendation to follow. (2) Alcohol abuse: Code(s): F10.10 - Alcohol abuse, uncomplicated Status: Acute Assessment and Plan: Patient clinically stable will monitor with CIWA protocol (3) Persistent atrial fibrillation: Code(s): I48.19 - Other persistent atrial fibrillation Status: Acute Assessment and Plan: Rate is controlled patient on ASA only Additional Plan Will continue current plan of care and treatment. Will increase pain medication. Will start rehab once patient is stable. Subjective Date/time seen: 11/13/20 15:40 74-year-old male with multiple medical problems including history of alcohol abuse, atrial fibrillation, chronic respiratory failure, diabetes, hypertension, Patient had left BKA on 11/08, Patient has pain in the left stump area and dry skin all over. Sp amputation for OM, MRSA infection pt was on IV vancomycin until 11/[address] Painter [facility] started patient on Bactrim DS from 11/10 until 11/15,. Doing better today, hopeful discharge to [facility] team on Saturday. will continue to monitor and further recommendation to follow. Review of Systems Review of Systems: All systems reviewed & are unremarkable except as noted in HPI and below Exam Narrative: Exam Narrative: Chronically ill appearing man HEENT: eyes are clear and none icteric LUNGS: Bilateral fair entry with rhonchi HEART: Irregularly irregular ABD: BS+, Soft and nontender MS:L Below knee amputation Skin : dry all over ichthyosis Objective Data Vital Signs Vital Signs: Vital Signs - 24 hr 11/12/20 20:02 11/12/20 20:42 11/13/20 06:00 Temperature 97.2 F L 97.2 F L Pulse Rate 62 76 75 Respiratory Rate 22 H 20 Blood Pressure 138/61 111/43 L Pulse Oximetry 98 97 11/13/20 08:00 11/13/20 08:27 11/13/20 14:00 Temperature 97.3 F L Pulse Rate 75 75 80 Respiratory Rate 20 22 H Blood Pressure 117/76 Pulse Oximetry 97 98 Intake/Output Intake/Output: Intake & Output 11/10/20 11/11/20 11/12/20 11/13/20 23:59 23:59 23:59 23:59 Intake Total 1970 1720 1470 1200 Output Total 900 1150 850 650 Balance 1070 570 620 550 Meds/Results Medications: Active Medications Generic Name Dose Route Start Last Admin Trade Name Freq PRN Reason Stop Dose Admin Albuterol 2.5 mg 10/25/20 03:40 Albuterol Sulfate Neb 2.5 Mg/3 Ml Inh INHALATION TIDRT PRN Shortness Of Breath Alprazolam 1 mg 10/25/20 00:44 11/12/20 20:02 Alprazolam (*Crx) 0.5 Mg Tablet PO 1 mg TID PRN Administration anxiety Aspirin 325 mg 10/25/20 09:00 11/13/20 08:26 Aspirin 325 Mg Enteric Tablet BY MOUTH 325 mg DAILY KALPESH Administration Dextrose 12.5 gm 10/25/20 00:40 Dextrose 50% 25 Gm/50 Ml Syringe IV PUSH PRN PRN Hypoglycemia Protocol Diphenhydramine HCl 25 mg 11/08/20 19:52 11/12/20 12:09 Diphenhydramine
[2020-11-13 16:56] LABS: Glucose Point of Care 146 (65-105)
--- NOTE | 2020-11-13 18:48 | PC.NURSE ---
Patient likes to yell out during shift. Patient is hard of hearing. Takes oxygen off and on through out shift. Uses call light and urinal.
[2020-11-13 21:15] LABS: Glucose Point of Care 127 (65-105)
[2020-11-13] MEDS: ALPRAZolam (*CRX) 0.5 MG TABLET 1 MG PO (22:04)
[2020-11-14] VITALS (7 sets, daily range): BP systolic 126–138; BP diastolic 73–75; PULSE 58–72; RESP 18–22; TEMP 36.2–36.4; O2SAT 92–96
[2020-11-14] MEDS: MORPHINE SULFATE (*CRX) 4 MG/ML INJ 2 MG IV PUSH (00:55)
[2020-11-14] MEDS: traMADol HCL (*CRX) 50 MG TABLET PO ×5 (03:11→23:32)
[2020-11-14 05:27] LABS: Hematocrit 29.3 % (42.0-52.0); Hemoglobin 8.8 g/dL (14.0-18.0); Mean Corpuscular Hemoglobin 25.1 pg (26-34); Mean Corpuscular Volume 83.7 fl (80-100); Mean Platelet Volume 9.7 fl (7.4-10.4); Platelet Count Result 237 k/mm3 (150-375); Red Cell Distribution Width 14.2 % (11.5-14.5)
[2020-11-14 05:54] LABS: Anion Gap 1 mmol/L (8-16); Blood Urea Nitrogen 19 mg/dL (9-20); Calcium 8.5 mg/dL (8.4-10.2); Carbon Dioxide 31 mmol/L (22-30); Chloride 103 mmol/L (98-107); Estimated CRCL calculation 46 ml/min; Estimated Glomerular Filt Rate 50; Glucose 93 mg/dL (75-110); Potassium 4.6 mmol/L (3.4-5.0); Sodium 135 mmol/L (137-145)
[2020-11-14 06:42] LABS: Glucose Point of Care 89 (65-105)
[2020-11-14] MEDS: MULTIVITAMINS THERAPEUTIC TAB (*BKC) 1 TABLET PO (08:32)
[2020-11-14] MEDS: FOLIC ACID 1 MG TABLET BY MOUTH (08:32)
[2020-11-14] MEDS: predniSONE 2.5 MG TABLET PO (08:33)
[2020-11-14] MEDS: ASPIRIN 325 MG ENTERIC TABLET BY MOUTH (08:33)
[2020-11-14] MEDS: GABAPENTIN 100 MG CAPSULE PO (08:33)
[2020-11-14] MEDS: MAGNESIUM OXIDE 400 MG TABLET PO (08:33)
[2020-11-14] MEDS: DOCUSATE SODIUM 100 MG CAPSULE PO (08:33)
[2020-11-14] MEDS: SERTRALINE HCL 50 MG TABLET PO (08:34)
[2020-11-14] MEDS: METOPROLOL TARTRATE 25 MG TABLET PO ×2 (08:34→20:03)
[2020-11-14] MEDS: SIMVASTATIN 10 MG TABLET PO (08:34)
[2020-11-14] MEDS: PANTOPRAZOLE 40 MG TABLET PO ×2 (08:34→18:13)
[2020-11-14] MEDS: HYDROCORTISONE 1% 30 GM CREAM 1 APPLIC TOPICAL ×2 (08:34→20:03)
[2020-11-14] MEDS: LACTIC ACID 12% LOTION 225 BTL 1 APPLIC TOPICAL (08:35)
[2020-11-14 12:14] LABS: Glucose Point of Care 100 (65-105)
[2020-11-14] MEDS: ALPRAZolam (*CRX) 0.5 MG TABLET 1 MG PO ×2 (12:50→23:27)
--- NOTE | 2020-11-14 13:32 | PC.NURSE ---
Call was placed to Dr. Foy regarding patient's increased pain. Orders received.
--- NOTE | 2020-11-14 13:53 | WPDINFPN2 ---
Progress Note: A&P Assessment and Plan (1) MRSA (methicillin resistant Staphylococcus aureus) septicemia: Code(s): A41.02 - Sepsis due to Methicillin resistant Staphylococcus aureus Status: Acute Assessment and Plan: 1. MRSA bacteremia with infection, R foot source, with chronic osteomyelitis very likely. Microbiologic cure. POD # 5 BKA 2. Normal ABIs, but suspect small vessel disease 3. DM, well controlled, long standing 4. AF with bradycardia REC Oral [id number] through tomorrow. Will see prn Subjective Date/time seen: 11/14/20 13:53 Interval history: itching better. L leg pain with pressure Exam Narrative: Exam Narrative: afebrile Const: General: no acute distress GI: Inspection: non-distended GI Palp: No Tenderness to palpation present (GI) Skin: General skin exam: normal color and no rashes or lesions noted Objective Data Vital Signs Vital Signs: Vital Signs - 24 hr 11/13/20 14:00 11/13/20 19:53 11/13/20 20:30 Temperature 36.3 C L Pulse Rate 80 80 60 Respiratory Rate 22 H 22 H Blood Pressure 117/76 Pulse Oximetry 98 98 11/13/20 21:11 11/14/20 05:52 11/14/20 08:00 Temperature 36.2 C L 36.4 C L Pulse Rate 53 L 58 L 64 Respiratory Rate 20 22 H 22 H Blood Pressure 151/65 H 126/73 Pulse Oximetry 97 95 92 11/14/20 08:34 11/14/20 08:58 Temperature Pulse Rate 64 Respiratory Rate Blood Pressure Pulse Oximetry 92 Intake/Output Intake/Output: Intake & Output 11/11/20 11/12/20 11/13/20 11/14/20 23:59 23:59 23:59 23:59 Intake Total 1720 1470 1680 730 Output Total 1150 850 650 700 Balance 185 010 8720 30 Meds/Results Medications: Active Medications Generic Name Dose Route Start Last Admin Trade Name Freq PRN Reason Stop Dose Admin Hydrocodone Bitart/Acetaminophen 1 tab 11/14/20 13:28 Hydrocodone/Acetaminophen (*Crx) 5-325 Mg Tablet PO Q6H PRN Pain Rated 7-10 Albuterol 2.5 mg 10/25/20 03:40 Albuterol Sulfate Neb 2.5 Mg/3 Ml Inh INHALATION TIDRT PRN Shortness Of Breath Alprazolam 1 mg 10/25/20 00:44 11/14/20 12:50 Alprazolam (*Crx) 0.5 Mg Tablet PO 1 mg TID PRN Administration anxiety Aspirin 325 mg 10/25/20 09:00 11/14/20 08:33 Aspirin 325 Mg Enteric Tablet BY MOUTH 325 mg DAILY KALPESH Administration Dextrose 12.5 gm 10/25/20 00:40 Dextrose 50% 25 Gm/50 Ml Syringe IV PUSH PRN PRN Hypoglycemia Protocol Diphenhydramine HCl 25 mg 11/08/20 19:52 11/12/20 12:09 Diphenhydramine Hcl Cap 25 Mg Capsule PO 25 mg Q6H PRN Administration Itching Docusate Sodium 100 mg 10/25/20 09:00 11/14/20 08:33 Docusate Sodium 100 Mg Capsule PO 100 mg DAILY KALPESH Administration Folic Acid 1 mg 10/25/20 09:00 11/14/20 08:32 Folic Acid 1 Mg Tablet BY MOUTH 1 mg DAILY KALPESH Administration Gabapentin 200 mg 11/14/20 13:00 Gabapentin 100 Mg Capsule PO TID KALPESH Glucagon 1 mg 10/25/20 00:40 Glucagon For Inj 1 Mg Vial IM PRN PRN Hypoglycemia Protocol Glucose 15 gm 10/25/20 00:40 Glucose Oral Gel 15 Gm Of Glucse In 37.5 Gm Tube PO PRN PRN Hypoglycemia Protocol Hydrocortisone 1 applic 11/10/20 21:00 11/14/20 08:34 Hydrocortisone 1% 30 Gm Cream TOPICAL 1 applic Q12HR KALPESH Administration Dextrose 1,000 mls @ 100 mls/hr 10/25/20 00:40 Dextrose 5% 1,000 Ml IVPB PRN PRN Hypoglycemia Protocol Insulin Aspart 2 - 5 units 10/25/20 08:00 11/14/20 13:02 Insulin Aspart (*Bkc) 100 Units/Ml SUB-Q Not Given TIDWM [facility] Protocol Ipratropium [place] 0.5 mg 10/25/20 03:41 Ipratropium Br 0.02% Inh Soln 0.5 Mg/2.5 Ml Vial INHALATION TIDRT PRN Shortness Of Breath Lactic Acid 1 applic 10/26/20 09:00 11/14/20 08:35 Lactic Acid 12% Lotion 225 Btl TOPICAL 1 applic QAM KALPESH Administration Magnesium Oxide 400 mg 10/26/20 09:05 11/14/20 08:33 Magnesium Oxide 400
[2020-11-14] MEDS: GABAPENTIN 100 MG CAPSULE 200 MG PO ×2 (14:01→18:13)
[2020-11-14 16:49] LABS: Glucose Point of Care 172 (65-105)
--- NOTE | 2020-11-14 17:18 | PM.IMPN ---
Progress Note: A&P Assessment and Plan (1) Osteomyelitis of left foot: Qualifiers: Osteomyelitis type: unspecified type Qualified Code(s): M86.9 - Osteomyelitis, unspecified Code(s): M86.9 - Osteomyelitis, unspecified Status: Acute Assessment and Plan: 11/14/20 17:18 Patient is 74-year-old male with history of alcohol abuse, atrial fibrillation, chronic respiratory failure, diabetes, OM, sp L BKA Pain control, PT/ OT. Mrsa infection, continue iv vancomycin until 08/15. Pt to go to [facility] on Saturday Pt having some itching from vancomycin try Benadryl for itch. 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 Sp amputation for OM, MRSA infection pt was on IV vancomycin until 11/[address] Longo ID started patient on Bactrim DS from 11/10 until 11/15,. Doing better today, hopeful discharge to [facility] team on Saturday. will continue to monitor and further recommendation to follow. 11/14 currently patient is participating in OT complains of pain in the left stone patient is on tramadol 50 mg every 6 hours as needed and it is not controlling the pain, we may tramadol schedule every 6 hours, will add [place] 5/325 every 6 hours as needed, patient will complete his oral antibiotic Bactrim tomorrow, patient still waiting to be transferred to rehab, patient will benefit from acute rehab (2) Alcohol abuse: Code(s): F10.10 - Alcohol abuse, uncomplicated Status: Acute Assessment and Plan: Patient clinically stable will monitor with CIWA protocol (3) Persistent atrial fibrillation: Code(s): I48.19 - Other persistent atrial fibrillation Status: Acute Assessment and Plan: Rate is controlled patient on ASA only Subjective Date/time seen: 11/14/20 17:18 Patient is 74-year-old male with history of alcohol abuse, atrial fibrillation, chronic respiratory failure, diabetes, OM, sp L BKA Pain control, PT/ OT. Mrsa infection, continue iv vancomycin until 08/15. Pt to go to [facility] on Saturday Pt having some itching from vancomycin try Benadryl for itch. 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 Sp amputation for OM, MRSA infection pt was on IV vancomycin until 11/[address] Longo ID started patient on Bactrim DS from 11/10 until 11/15,. Doing better today, hopeful discharge to [facility] team on Saturday. will continue to monitor and further recommendation to follow. 11/14 currently patient is participating in OT complains of pain in the left stone patient is on tramadol 50 mg every 6 hours as needed and it is not controlling the pain, we may tramadol schedule every 6 hours, will add [place] 5/325 every 6 hours as needed, patient will complete his oral antibiotic Bactrim tomorrow, patient still waiting to be transferred to rehab, patient will benefit from acute rehab Review of Systems Review of Systems: All systems reviewed & are unremarkable except as noted in HPI and below Exam Narrative: Exam Narrative: Chronically ill appearing man HEENT: eyes are clear and none icteric LUNGS: Bilateral fair entry with rhonchi HEART: Irregularly irregular ABD: BS+, Soft and nontender MS:L Below knee amputation Skin : dry all over ichthyosis Objective Data Vital Signs Vital Signs: Vital Signs - 24 hr 11/13/20 19:53 11/13/20 20:30 11/13/20 21:11 Temperature 97.2 F L Pulse Rate 80 60 53 L Respiratory Rate 22 H 20 Blood Pressure 151/65 H Pulse Oximetry 98 97 11/14/20 05:52 11/14/20 08:00 11/14/20 08:34 Temperature 97.5 F L Pulse Rate 58 L 64 64 Respiratory Rate 22 H 22 H Blood Pressure 126
[2020-11-14 21:17] LABS: Glucose Point of Care 121 (65-105)
[2020-11-15 04:15] VITALS: BP 142/70; PULSE 58; RESP 22; TEMP 36.6
[2020-11-15] MEDS: traMADol HCL (*CRX) 50 MG TABLET PO (05:12)
[2020-11-15 05:48] LABS: Glucose Point of Care 82 (65-105)
[2020-11-15] MEDS: predniSONE 2.5 MG TABLET PO (07:45)
[2020-11-15] MEDS: ASPIRIN 325 MG ENTERIC TABLET BY MOUTH (07:46)
[2020-11-15] MEDS: GABAPENTIN 100 MG CAPSULE 200 MG PO (07:46)
[2020-11-15] MEDS: DOCUSATE SODIUM 100 MG CAPSULE PO (07:46)
[2020-11-15] MEDS: FOLIC ACID 1 MG TABLET BY MOUTH (07:46)
[2020-11-15] MEDS: LACTIC ACID 12% LOTION 225 BTL 1 APPLIC TOPICAL (07:47)
[2020-11-15] MEDS: HYDROCORTISONE 1% 30 GM CREAM 1 APPLIC TOPICAL (07:47)
[2020-11-15] MEDS: PANTOPRAZOLE 40 MG TABLET PO (07:47)
[2020-11-15] MEDS: MAGNESIUM OXIDE 400 MG TABLET PO (07:47)
[2020-11-15] MEDS: MULTIVITAMINS THERAPEUTIC TAB (*BKC) 1 TABLET PO (07:47)
[2020-11-15] MEDS: SERTRALINE HCL 50 MG TABLET PO (07:47)
[2020-11-15] MEDS: SIMVASTATIN 10 MG TABLET PO (07:48)
[2020-11-15 07:50] VITALS: PULSE 60
[2020-11-15] MEDS: METOPROLOL TARTRATE 25 MG TABLET PO (07:50)
[2020-11-15] MEDS: HYDROcodone/acetaminophen (*CRX) 5-325 MG TABLET 1 TAB PO (07:54)
[2020-11-15 09:09] VITALS: RESP 22; O2SAT 96
--- NOTE | 2020-11-15 10:45 | PM.DS ---
DS: Admitting Diagnosis Admitting Diagnosis Admitting Diagnosis: Left foot pain. DS: Discharge Diagnosis Discharge Diagnosis (1) Osteomyelitis of left foot: Qualifiers: Osteomyelitis type: unspecified type Qualified Code(s): M86.9 - Osteomyelitis, unspecified Code(s): M86.9 - Osteomyelitis, unspecified Status: Acute Assessment and Plan: 11/14/20 17:18 Patient is 74-year-old male with history of alcohol abuse, atrial fibrillation, chronic respiratory failure, diabetes, OM, sp L BKA Pain control, PT/ OT. Mrsa infection, continue iv vancomycin until 08/15. Pt to go to [facility] on Saturday Pt having some itching from vancomycin try Benadryl for itch. 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 Sp amputation for OM, MRSA infection pt was on IV vancomycin until 11/[address] Longo ID started patient on Bactrim DS from 11/10 until 11/15,. Doing better today, hopeful discharge to [facility] team on Saturday. will continue to monitor and further recommendation to follow. 11/14 currently patient is participating in OT complains of pain in the left stone patient is on tramadol 50 mg every 6 hours as needed and it is not controlling the pain, we may tramadol schedule every 6 hours, will add [place] 5/325 every 6 hours as needed, patient will complete his oral antibiotic Bactrim tomorrow, patient still waiting to be transferred to rehab, patient will benefit from acute rehab (2) Alcohol abuse: Code(s): F10.10 - Alcohol abuse, uncomplicated Status: Acute Assessment and Plan: Patient clinically stable will monitor with CIWA protocol (3) Persistent atrial fibrillation: Code(s): I48.19 - Other persistent atrial fibrillation Status: Acute Assessment and Plan: Rate is controlled patient on ASA only DS: Summary Hospital Course Reason for hospitalization: Chief Complaint: Left foot pain. Narrative: Ludin Mcguire is a 74-year-old male with multiple medical problems including history of alcohol abuse, atrial fibrillation, chronic respiratory failure, diabetes, hypertension, and several other comorbidities who presented to the emergency department earlier today from home with complaints of left foot pain. He is not the best historian and is somewhat confused; I have not been able to get a hold of his daughter to see if this has been an issue however I do not see anything similar documented in his chart. Over the past couple of days he has developed pain in the left foot near a previous forefoot amputation site. In fact a home health nurse was visiting today, saw the wound, was concerned that it was likely infected and sent him to the emergency department. The pain is described as sharp in nature without significant radiation. He gives no aggravating or alleviating factors. He has no associated symptoms and specifically denies fever, chills, sweats, nausea, and vomiting. Hospital Course: Patient is 74-year-old male with history of alcohol abuse, atrial fibrillation, chronic respiratory failure, diabetes, OM, sp L BKA Pain control, PT/ OT. Mrsa infection, continue iv vancomycin until 08/15. Pt to go to [facility] on Saturday Pt having some itching from vancomycin try Benadryl for itch. 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 Sp amputation for OM, MRSA infection pt was on IV vancomycin until 11/[address] Longo ID started patient on Bactrim DS from 11/10 until 11/15,. Doing better today, hopeful discharge to [facility] team on Saturday. will continue to monitor and further recommendation to follow. 11/14 currently [place]
--- NOTE | 2020-11-15 11:42 | PC.NURSE ---
Patient being moved to room 222 for [facility].
== END 2020-11-15 11:47 | DRG 853 ==
LOC: ANHED 14:05 → ANH2MED 16:31 → ANHTRC 11-07 17:54
PROVIDERS: Family Medicine; Internal Medicine Cardiovascular Disease; Physician Assistant; Plastic Surgery; Admitting Provider Family Medicine; Emergency Provider Emergency Medicine; PCP Emergency Medicine; Visit Provider Family Medicine
PROC: (CPT 27882; principal; 2020-11-02 15:00)
PROC: 0Y6J0Z3 Detachment at Left Lower Leg, Low, Open Approach (ICD-10-PCS; CPT 27882; principal; 2020-11-08 12:00)
DX: A41.02 Sepsis due to Methicillin resistant Staphylococcus aureus (principal); G93.41 Metabolic encephalopathy; M86.172 Other acute osteomyelitis, left ankle and foot; I50.22 Chronic systolic (congestive) heart failure; L03.116 Cellulitis of left lower limb; I48.19 Other persistent atrial fibrillation; J96.11 Chronic respiratory failure with hypoxia; M86.671 Other chronic osteomyelitis, right ankle and foot; E11.69 Type 2 diabetes mellitus with other specified complication; I11.0 Hypertensive heart disease with heart failure; Z20.822 Contact with and (suspected) exposure to COVID-19; E11.42 Type 2 diabetes mellitus with diabetic polyneuropathy; F10.20 Alcohol dependence, uncomplicated; F41.8 Other specified anxiety disorders; K21.9 Gastro-esophageal reflux disease without esophagitis; J43.9 Emphysema, unspecified; N40.0 Benign prostatic hyperplasia without lower urinary tract symptoms; K58.9 Irritable bowel syndrome, unspecified; R00.1 Bradycardia, unspecified; E78.2 Mixed hyperlipidemia; Z96.641 Presence of right artificial hip joint; Z99.81 Dependence on supplemental oxygen; Z87.891 Personal history of nicotine dependence; Z86.73 Personal history of transient ischemic attack (TIA), and cerebral infarction without residual deficits; Z98.42 Cataract extraction status, left eye; Z98.41 Cataract extraction status, right eye; Z89.422 Acquired absence of other left toe(s); Z89.421 Acquired absence of other right toe(s)
CPT/HCPCS: 36415; 71045; 73630; 80048; 80053; 80202; 81001; 83036; 83735; 84436; 85025; 85027; 85652; 86140; 87040; 87070; 87077; 87186; 87205; 88307; 88311; 93005; 93922; 94640; 96365; 97110; 97116; 97161; 97165; 97530; 97535; 99285; A9270; C9803; J0360; J0461; J0743; J1100; J1815; J2250; J2270; J2405; J2543; J2704; J3010; J3370; J3475; J7030; J7120; U0003; U0005

== ENCOUNTER 2020-11-15 11:44 | IRF | payer MEDICARE, SELFPAY ==
--- NOTE | 2020-11-15 12:09 | ADMGEN ---
This patient, Ludin Mcguire, was admitted to [facility] Room 222-02. Patient/family oriented to hospital policies and general routines including ID bracelet, bed and alarms, visiting hours, pain management, procedures, bathroom and other care routines, personal items, smoking policy, room service/diet, and visiting hours. Information on how to activate the Rapid Response Team has been discussed. Patient/Family are encouraged to report perceived risks to care and to ask questions if they do not understand what they are told or what they should do. patient transported to [facility] room 222 bed two from med-surg bed 220 bed one
[2020-11-15] MEDS: GABAPENTIN 100 MG CAPSULE 200 MG PO ×2 (13:47→17:21)
[2020-11-15 14:00] VITALS: BP 125/90; PULSE 75; RESP 20; TEMP 36.7; O2SAT 96
[2020-11-15] MEDS: HYDROcodone/acetaminophen (*CRX) 5-325 MG TABLET 1 TAB PO ×2 (14:09→20:47)
[2020-11-15 14:25] VITALS: BMI 22.5
[2020-11-15 16:50] LABS: Glucose Point of Care 139 (65-105)
[2020-11-15] MEDS: traMADol HCL (*CRX) 50 MG TABLET PO ×2 (17:21→23:34)
[2020-11-15 20:00] VITALS: PULSE 96; RESP 20; O2SAT 96
[2020-11-15 20:11] VITALS: BP 156/60; PULSE 75; RESP 20; TEMP 35.8; O2SAT 96
[2020-11-15] MEDS: DOCUSATE SODIUM 100 MG CAPSULE PO (20:41)
[2020-11-15 20:42] VITALS: PULSE 96
[2020-11-15] MEDS: METOPROLOL TARTRATE 25 MG TABLET PO (20:42)
[2020-11-15] MEDS: HYDROCORTISONE 1% 30 GM CREAM 1 APPLIC TOPICAL (20:42)
[2020-11-15] MEDS: PANTOPRAZOLE 40 MG TABLET PO (20:44)
[2020-11-15] MEDS: ALPRAZolam (*CRX) 0.5 MG TABLET 1 MG PO (20:47)
[2020-11-15 20:56] LABS: Glucose Point of Care 141 (65-105)
[2020-11-16] VITALS (7 sets, daily range): BP systolic 106–134; BP diastolic 60–66; PULSE 54–74; RESP 20–22; TEMP 36.4–36.7; O2SAT 96–100; BMI 22.5
[2020-11-16 05:16] LABS: Basophils Percent Auto 0.3 % (0.2-1.2); Eosinophils Absolute Auto 0.3 K/mm3 (0-0.3); Eosinophils Percent Auto 5.2 % (0-4.4); Hematocrit 30.8 % (42.0-52.0); Immature Granulocyte Absolute 0.04 K/mm3 (0.00-0.031); Immature Granulocyte Percent A 0.7 % (0-0.5); Lymphocytes Absolute Auto 0.89 K/mm3 (0.9-3.2); Mean Corpuscular HGB Conc 29.2 g/dl (32-36); Mean Corpuscular Hemoglobin 25.1 pg (26-34); Mean Platelet Volume 9.3 fl (7.4-10.4); Monocytes Absolute Auto 0.6 K/mm3 (0.1-0.6); Monocytes Percent Auto 9.8 % (2.6-8.5); Neutrophils Absolute Auto 4.1 K/mm3 (1.3-6.7); Platelet Count Result 220 k/mm3 (150-375); Red Blood Count 3.58 M/mm3 (4.6-6.20); Red Cell Distribution Width 14.4 % (11.5-14.5); White Blood Count 5.9 K/mm3 (4.5-10.0)
[2020-11-16 05:35] LABS: Anion Gap 3 mmol/L (8-16); Blood Urea Nitrogen 19 mg/dL (9-20); Calcium 8.2 mg/dL (8.4-10.2); Carbon Dioxide 28 mmol/L (22-30); Chloride 106 mmol/L (98-107); Estimated CRCL calculation 42 ml/min; Estimated Glomerular Filt Rate 46; Glucose 93 mg/dL (75-110); Potassium 4.3 mmol/L (3.4-5.0); Sodium 137 mmol/L (137-145)
[2020-11-16 05:53] LABS: Glucose Point of Care 116 (65-105)
[2020-11-16] MEDS: traMADol HCL (*CRX) 50 MG TABLET PO ×4 (06:26→23:05)
[2020-11-16] MEDS: SERTRALINE HCL 50 MG TABLET PO (08:20)
[2020-11-16] MEDS: predniSONE 2.5 MG TABLET PO (08:20)
[2020-11-16] MEDS: SIMVASTATIN 10 MG TABLET PO (08:20)
[2020-11-16] MEDS: HYDROCORTISONE 1% 30 GM CREAM 1 APPLIC TOPICAL ×2 (08:21→20:20)
[2020-11-16] MEDS: METOPROLOL TARTRATE 25 MG TABLET PO ×2 (08:21→20:20)
[2020-11-16] MEDS: DOCUSATE SODIUM 100 MG CAPSULE PO ×2 (08:21→20:20)
[2020-11-16] MEDS: MULTIVITAMINS THERAPEUTIC TAB (*BKC) 1 TABLET PO (08:21)
[2020-11-16] MEDS: ASPIRIN 325 MG ENTERIC TABLET PO (08:22)
[2020-11-16] MEDS: PANTOPRAZOLE 40 MG TABLET PO ×2 (08:22→23:05)
[2020-11-16] MEDS: GABAPENTIN 100 MG CAPSULE 200 MG PO ×3 (08:22→17:32)
[2020-11-16] MEDS: MAGNESIUM OXIDE 400 MG TABLET PO (08:22)
[2020-11-16] MEDS: FOLIC ACID 1 MG TABLET PO (08:22)
[2020-11-16] MEDS: LACTIC ACID 12% LOTION 225 BTL 1 APPLIC TOPICAL (08:23)
[2020-11-16 12:00] LABS: Glucose Point of Care 104 (65-105)
--- NOTE | 2020-11-16 12:01 | WPDREHABHP ---
H&P: HPI History of Present Illness Date/Time: 11/16/20 12:01 Chief Complaint: amputation lower extremity secondary to left foot osteomyelitis Narrative: Ludin Mcguire is a 74 year old male HISTORY OF PRESENT ILLNESS: The patient's primary rehab impairment category is 10. - amputation - lower extremity the etiological diagnosis is left foot osteomyelitis I saw this patient [id number] on November 16, 2020 11:30 a.m. The patient is a 74 years old right-handed male with multiple medical problems including history of alcohol abuse, atrial fibrillation not on long-term anticoagulation, diabetes mellitus, hypertension, COPD, congestive heart failure, chronic anemia, bronchial asthma, chronic respiratory failure with hypoxia on home oxygen with chronic dyspnea on exertion, osteomyelitis, diabetic foot infection, neuropathy, frequent falls, depression, and ichthyosis, He presented to the emergency department at [facility] on October 24, 2021 from home with complaints of left foot pain. The patient was a poor historian in the emergency room due to some confusion. Over the past couple of days prior to emergency room visit the patient developed pain in the left foot near a previous forefoot amputation site. His home health nurse saw the wound, was concerned it was infected and sent him to the emergency department. He described the pain as sharp in nature without significant radiation. Chest x-ray in the emergency room showed no acute cardiopulmonary findings. Foot x-ray showed prior 1st and 5th Yenny metatarsal amputation with advance residual and recurrent osteomyelitis and secondary pathological fracture involving the majority of the remaining 1st metatarsal and interval change and continued with loss of bone with sharp margins at the distal aspect of the 2nd and 3rd metatarsals suggesting interval revision osteotomies although current osteomyelitis could not be excluded, which correlated for surgical history of interval debridement. Lab work revealed leukocytosis, hyponatremia, LORNA, On October 25, 2021 and ankle brachial index revealed no significant arterial occlusive disease to either lower limb with normal bilaterally ABIs and a cardiac arrhythmia which correlated with EKG. EKG showed atrial fibrillation. Vancomycin at [facility] was started for suspected osteomyelitis, [facility] surgeon was consulted, and wound and blood cultures ordered. October 26, 2021 wound cultures had no growth, however blood cultures are growing MRSA. Infectious Disease was consulted. On October 27, 2021 infectious disease personal diagnose patient with sepsis due to MRSA bacteremia and recommended continuing vancomycin, discontinuing imipenem, and consider left BKA. On October 28, 2020 wound cultures grew mixed manjit and Staph aureus, patient continued on vancomycin. Patient agreed to left [id number] amputation of surgery was scheduled for November 02, 2020. On November 02, 2020 patient was found to have heart rate of 22 30s EKG revealed atrial fibrillation with slow ventricular responses, and surgery was postponed. Cardiology were consulted the patient was not having symptomatic bradycardia. Metoprolol was placed on hold. Telemetry and T4 were order T4 was within normal limit on November 03, 2020 the patient was cleared by saddle and harness maker. On November 08, 2020 the patient underwent a left below the knee amputation. The patient continues vancomycin for 2 days postoperatively and was then switched to Septra DS through November 15, 2020. On November 11, 2020 leukocytosis, AKA and hypoglycemia had resolved. The patient was independent with ADLs prior to his surgery using a cane walker or wheelchair. Operatively he is motivated to work with therapy and doing well. He has a moderate assist of 1 for transfers, max assist for lower body, and has ambulated 4ft with a walker. He takes aspirin 325 mg per day routinely. The patient will transfer to [facility] November 15, 2020 Therapy was initiate
[2020-11-16] MEDS: PHARMACIST COMMUNICATION ORDER 1 EACH XX (12:30)
[2020-11-16 17:15] LABS: Glucose Point of Care 121 (65-105)
[2020-11-16] MEDS: ALPRAZolam (*CRX) 0.5 MG TABLET 1 MG PO (23:05)
[2020-11-17 04:56] VITALS: BP 149/54; PULSE 68; RESP 20; TEMP 36.3; O2SAT 94
[2020-11-17] MEDS: traMADol HCL (*CRX) 50 MG TABLET PO ×4 (05:46→23:17)
[2020-11-17 05:56] LABS: Glucose Point of Care 130 (65-105)
--- NOTE | 2020-11-17 08:22 | RPD ---
INDIVIDUALIZED PLAN OF CARE FOR Ludin Mcguire Brief Synthesis of Pre-Admission Screen, Post-Admission Evaluation and Therapy Evaluations: The patient presents to rehab with left foot osteomyelitis s/p below the knee amputation. Comorbidities include atrial fibrillation with slow ventricular response, MRSA, frequent falls, HLD, acute renal failure, acute hypercapnic respiratory failure, diabetic foot infection, bacteremia, hypokalemia, hyponatremia, HTN, ichthyosis, depression, neuropathy, CHF, COPD, diabetes mellitus, pneumonia, sepsis, hyperglycemia, hypoalbuminemia, hypocalcemia, post-operative pain, and leukocytosis. This patient requires intensive therapies to restore lost function due to below the knee amputation in order to maximize their functional level of independence and quality of life. The complexity of the patient's medical management, nursing, and therapy needs require an inpatient rehab hospital stay with a physician-led interdisciplinary team approach. The patient?s needs will be best met in an intensive program vs. at a lower level of care. The patient requires physician services for medical oversight, management of post-op complications in the setting of present comorbidities, management of diabetes mellitus diagnosis, and pain management. Post-op complications have included atrial fibrillation with slow ventricular response, hypokalemia, hyponatremia, hyperglycemia, hypoalbuminemia, hypocalcemia, post-operative pain, and leukocytosis. His current medical status has the potential for sudden change during his recovery period given his acute post-operative status and chronic comorbid conditions. The patient requires nursing services for anticoagulation therapy, diabetes training, DVT prophylactics, infection protection, medication management and education, pressure relief, and wound care. Deficits include:ADLs, Balance, Endurance, Family Training/Education, Mobility, Pain Management, ROM, Safety, Strength, and Transfers. Mobile Lounge Driver/Case Management for: Discharge Planning and Patient/Family Counseling Physical Therapy: 5 days per week for 90 minutes. Treatments may include: Therapeutic Exercise, Gait Training, Neuromuscular Re-education, Transfer Training, Community Reintegration, Bed Mobility, Patient/Family Education, Wheelchair Mobility Group Therapy/Concurrent Therapy Rationales: -Improve attention span during functional activities in a distracted environment. -Enhance problem solving and/or adequate judgment skills during functional activities in a distracted environment. -Promote increased safety awareness in a distracted environment to reduce fall risk with functional tasks, transfers, and ambulation to allow a more safe, self-sufficient return to the home environment. -Improve dynamic balance skills to promote safety and independence with functional activities in a distracted environment for maximum gain. Occupational Therapy: 5 days per week for 90 minutes. Treatments may include: Therapeutic Exercise, Therapeutic Activity, Cognitive Training, Self-Care Transfer Training, Community Reintegration, Home Management, Patient/Family Education, Wheelchair Mobility Training, Energy Conservation Training Group Therapy/Concurrent Therapy Rationales: -Allow therapist to observe and teach generalization and carry-over of skills learned in individual therapy. -Enhance problem solving and sequencing skills during therapeutic activities in a distracted environment. -Promote increased safety awareness in a realistic setting to reduce fall risk with functional tasks due to visual and verbal distractions. -Increase functional level with ADLs, ADL transfers and use of adaptive equipment through therapeutic activities with others while promoting safety to allow a more safe, self-sufficient return home. Medical Prognosis: Good Anticipated Length of Stay: 10 days Rehab Goals: Eating Goal: 06-Independent Oral Hygiene Goal: 06-Independent Toileting Hygi
[2020-11-17] MEDS: HYDROCORTISONE 1% 30 GM CREAM 1 APPLIC TOPICAL ×2 (08:31→23:17)
[2020-11-17] MEDS: LACTIC ACID 12% LOTION 225 BTL 1 APPLIC TOPICAL (08:31)
[2020-11-17] MEDS: predniSONE 2.5 MG TABLET PO (08:33)
[2020-11-17] MEDS: SERTRALINE HCL 50 MG TABLET PO (08:33)
[2020-11-17] MEDS: PANTOPRAZOLE 40 MG TABLET PO ×2 (08:33→23:17)
[2020-11-17] MEDS: ASPIRIN 325 MG ENTERIC TABLET PO (08:33)
[2020-11-17] MEDS: MULTIVITAMINS THERAPEUTIC TAB (*BKC) 1 TABLET PO (08:33)
[2020-11-17 08:34] VITALS: PULSE 68
[2020-11-17] MEDS: DOCUSATE SODIUM 100 MG CAPSULE PO ×2 (08:34→23:17)
[2020-11-17] MEDS: METOPROLOL TARTRATE 25 MG TABLET PO ×2 (08:34→23:17)
[2020-11-17] MEDS: GABAPENTIN 100 MG CAPSULE 200 MG PO ×3 (08:34→17:31)
[2020-11-17] MEDS: MAGNESIUM OXIDE 400 MG TABLET PO (08:34)
[2020-11-17] MEDS: FOLIC ACID 1 MG TABLET PO (08:34)
[2020-11-17] MEDS: SIMVASTATIN 10 MG TABLET PO (08:34)
--- NOTE | 2020-11-17 11:44 | WPDNEURORHBP ---
Subjective Date/time seen: 11/17/20 11:44 74 years old status post left lower extremity amputation for the osteomyelitis not responding to the treatment in addition to the history of 1. Alcohol abuse 2. Atrial fibrillation for which she is not anticoagulation therapy 3. Diabetes mellitus 4. Hypertension 5. COPD 6. Congestive heart failure 7. Chronic anemia 8. Bronchial asthma with chronic respiratory failure 9. Neuropathy since admission his patient has remained afebrile with temperature 36.3? pulse 68 respiration 20 pulse ox 94% on room air and blood pressure 149/54, lab on 11/16 in [place] WBC 5.9 hemoglobin 9.0 platelet count of 220, basic metabolic panel normal except creatinine 1.50 with estimated GFR of 46 and blood sugar 130, add the B complex 1 tablet daily Review of Systems Review of Systems: All systems reviewed & are unremarkable except as noted in HPI and below Exam Const: General: cooperative, comfortable and no acute distress Nutritional Appearance: thin Orientation/consciousness: oriented to person and oriented to place Limitations: physical limitations HENMT: Head: normocephalic General nose exam: Normal external nose present and No nasal discharge present Face and sinus: normal facial exam Eyes: General: appearance normal, both eyes and all related structures Neck: Neck: full ROM Resp: Effort & Inspection: normal respiratory effort Auscultation: clear to auscultation bilaterally Cardio: Jugular venous distension: no JVD Rate: regular rate Rhythm: regular rhythm GI: Auscultation: normal bowel sounds Skin: General skin exam: no rashes or lesions noted Neuro: General: patient oriented x3 Cranial nerves: Yes CN's II-XII intact bilaterally Cognition (Neuro): normal cognition Speech: normal speech Gait exam (Neuro): Assisted gait required Motor exam (neuro): Pronator motor function not present Sensory Exam: Sensory deficit (Neuro) Deep tendon reflexes (DTR's): Right triceps reflex intensity grade: 1+, Left triceps reflex intensity grade: 1+, Rt Biceps (C5, C6): 1+, Left biceps reflex intensity grade: 1+, Right brachioradialis reflex intensity grade: 1+, Left brachioradialis reflex intensity grade: 1+, Right patellar reflex intensity grade: 1+, Left patellar reflex intensity grade: 1+ and Right ankle reflex intensity grade: 1+ Plantar Reflex Responses: downgoing: right Coordination: [id number] test normal Extrem: Left lower extremity: lower leg ( left below-knee amputee) Objective Data Vital Signs Vital Signs: Vital Signs - 24 hr 11/16/20 14:00 11/16/20 20:00 11/16/20 20:20 Temperature 36.7 C Pulse Rate 72 54 L Respiratory Rate 20 20 Blood Pressure 132/64 Pulse Oximetry 96 96 11/16/20 22:00 11/17/20 04:56 11/17/20 08:34 Temperature 36.4 C L 36.3 C L Pulse Rate 54 L 68 68 Respiratory Rate 22 H 20 Blood Pressure 134/66 149/54 H Pulse Oximetry 100 94 Intake/Output Intake/Output: Intake & Output 11/14/20 11/15/20 11/16/20 11/17/20 23:59 23:59 23:59 23:59 Intake Total 480 720 480 Balance 480 720 480 Meds/Results Medications: Active Medications Generic Name Dose Route Start Last Admin Trade Name Freq PRN Reason Stop Dose Admin Albuterol 2.5 mg 11/15/20 12:56 Albuterol Sulfate Neb 2.5 Mg/3 Ml Inh INHALATION TID PRN Shortness Of Breath Alprazolam 1 mg 11/15/20 13:00 11/16/20 23:05 Alprazolam (*Crx) 0.5 Mg Tablet PO 1 mg TID PRN Administration Anxiety Aspirin 325 mg 11/16/20 09:00 11/17/20 08:33 Aspirin 325 Mg Enteric Tablet PO 325 mg QAM KALPESH Administration Dextrose 12.5 gm 11/15/20 12:41 Dextrose 50% 25 Gm/50 Ml Syringe IV PUSH PRN PRN Hypoglycemia Protocol Diphenhydramine HCl 25 mg 11/15/20 13:01 Diphenhydramine Hcl Cap 25 Mg Capsule PO Q6H PRN Itching Docusate Sodium 100 mg 11/15/20 21:00 11/17/20 08:34 Docusate Sodium 100 Mg Capsule PO 100 mg Q12HR [facility] Administrati
[2020-11-17 11:54] LABS: Glucose Point of Care 109 (65-105)
[2020-11-17 14:00] VITALS: BP 121/54; PULSE 70; RESP 18; TEMP 36.3; O2SAT 95
[2020-11-17] MEDS: ACETAMINOPHEN 500 MG TABLET 1000 MG PO (15:32)
[2020-11-17 16:47] LABS: Glucose Point of Care 121 (65-105)
[2020-11-17 20:00] VITALS: O2SAT 96
[2020-11-17 22:00] VITALS: BP 133/62; PULSE 78; RESP 20; TEMP 36.1; O2SAT 95
[2020-11-17 23:17] VITALS: PULSE 76
[2020-11-17] MEDS: ALPRAZolam (*CRX) 0.5 MG TABLET 1 MG PO (23:17)
[2020-11-18] MEDS: traMADol HCL (*CRX) 50 MG TABLET PO ×3 (05:20→20:33)
[2020-11-18 05:25] VITALS: BP 151/70; PULSE 57; RESP 20; TEMP 35.7; O2SAT 96
[2020-11-18 05:32] LABS: Glucose Point of Care 96 (65-105)
[2020-11-18] MEDS: predniSONE 2.5 MG TABLET PO (07:26)
[2020-11-18] MEDS: PANTOPRAZOLE 40 MG TABLET PO ×2 (08:25→20:33)
[2020-11-18] MEDS: METOPROLOL TARTRATE 25 MG TABLET PO ×2 (08:25→20:32)
[2020-11-18] MEDS: SERTRALINE HCL 50 MG TABLET PO (08:25)
[2020-11-18] MEDS: FOLIC ACID 1 MG TABLET PO (08:26)
[2020-11-18] MEDS: SIMVASTATIN 10 MG TABLET PO (08:26)
[2020-11-18] MEDS: GABAPENTIN 100 MG CAPSULE 200 MG PO ×3 (08:26→16:55)
[2020-11-18] MEDS: MAGNESIUM OXIDE 400 MG TABLET PO (08:26)
[2020-11-18] MEDS: DOCUSATE SODIUM 100 MG CAPSULE PO ×2 (08:26→20:33)
[2020-11-18] MEDS: ASPIRIN 325 MG ENTERIC TABLET PO (08:26)
[2020-11-18] MEDS: MULTIVITAMINS THERAPEUTIC TAB (*BKC) 1 TABLET PO (09:22)
[2020-11-18] MEDS: HYDROCORTISONE 1% 30 GM CREAM 1 APPLIC TOPICAL ×2 (09:30→20:34)
[2020-11-18 12:17] LABS: Glucose Point of Care 99 (65-105)
--- NOTE | 2020-11-18 13:12 | WPDNEURORHBP ---
Subjective Date/time seen: 11/18/20 13:12 74 years old with left lower extremity amputation for the ongoing history of osteomyelitis in addition to the history of 1. Alcohol abuse 2. Atrial fibrillation 3. Diabetes mellitus 4. Hypertension 5. COPD 6. Congestive heart failure 7. Chronic anemia 8. Bronchial asthma with chronic respiratory failure 9. Diabetic neuropathy has been receiving physical therapy and occupational therapy and since admission here has remained afebrile with temp of 35.7? pulse 57 respiration 20 pulse ox 96% on the room air and a blood pressure of 151/70 there has been no change in the medications. And his blood sugar is around 99 Functional Status Ambulation Ability Ambulation Assistive Devices: Parallel Bars Exam Const: General: cooperative, no acute distress, alert and awake Nutritional Appearance: thin Limitations: physical limitations HENMT: Head: normocephalic Ears: hearing grossly normal bilaterally General nose exam: Normal external nose present and No nasal discharge present Face and sinus: normal facial exam Mouth: Yes Normal oral and palatal mucosa present Neck: Neck: full ROM Resp: Effort & Inspection: normal respiratory effort and able to speak in complete sentences Auscultation: clear to auscultation bilaterally Cardio: Jugular venous distension: no JVD Rate: regular rate Neuro: General: patient oriented x3 and moves all extremities Cranial nerves: Yes CN's II-XII intact bilaterally Cognition (Neuro): normal cognition Motor exam (neuro): Abnormal motor strength present ( generalized decrease in the strength) Sensory Exam: Sensory deficit (Neuro) ( distally) Deep tendon reflexes (DTR's): Right triceps reflex intensity grade: 1+, Left triceps reflex intensity grade: 1+, Rt Biceps (C5, C6): 1+, Left biceps reflex intensity grade: 1+, Right brachioradialis reflex intensity grade: 1+, Left brachioradialis reflex intensity grade: 1+, Right patellar reflex intensity grade: 1+, Left patellar reflex intensity grade: 1+ and Right ankle reflex intensity grade: 0 Plantar Reflex Responses: downgoing: right Coordination: [id number] test normal Psych: Appearance: grossly normal Objective Data Vital Signs Vital Signs: Vital Signs - 24 hr 11/17/20 14:00 11/17/20 20:00 11/17/20 22:00 Temperature 36.3 C L 36.1 C L Pulse Rate 70 78 Respiratory Rate 18 20 Blood Pressure 121/54 L 133/62 Pulse Oximetry 95 96 95 11/17/20 23:17 11/18/20 05:25 Temperature 35.7 C L Pulse Rate 76 57 L Respiratory Rate 20 Blood Pressure 151/70 H Pulse Oximetry 96 Intake/Output Intake/Output: Intake & Output 11/15/20 11/16/20 11/17/20 11/18/20 23:59 23:59 23:59 23:59 Intake Total 480 720 960 480 Balance 480 720 960 480 Meds/Results Medications: Active Medications Generic Name Dose Route Start Last Admin Trade Name Freq PRN Reason Stop Dose Admin Acetaminophen 1,000 mg 11/17/20 15:15 11/17/20 15:32 Acetaminophen 500 Mg Tablet PO 1,000 mg Q6H PRN Administration Mild Pain (1-3) or Fever Albuterol 2.5 mg 11/15/20 12:56 Albuterol Sulfate Neb 2.5 Mg/3 Ml Inh INHALATION TID PRN Shortness Of Breath Alprazolam 1 mg 11/15/20 13:00 11/17/20 23:17 Alprazolam (*Crx) 0.5 Mg Tablet PO 1 mg TID PRN Administration Anxiety Aspirin 325 mg 11/16/20 09:00 11/18/20 08:26 Aspirin 325 Mg Enteric Tablet PO 325 mg QAM KALPESH Administration Dextrose 12.5 gm 11/15/20 12:41 Dextrose 50% 25 Gm/50 Ml Syringe IV PUSH PRN PRN Hypoglycemia Protocol Diphenhydramine HCl 25 mg 11/15/20 13:01 Diphenhydramine Hcl Cap 25 Mg Capsule PO Q6H PRN Itching Docusate Sodium 100 mg 11/15/20 21:00 11/18/20 08:26 Docusate Sodium 100 Mg Capsule PO 100 mg Q12HR KALPESH Administration Folic Acid 1 mg 11/16/20 09:00 11/18/20 08:26 Folic Acid 1 Mg Tablet PO 1 mg DAILY KALPESH Administration Gabapentin 200 mg 11/15/20 13:00
[2020-11-18 14:00] VITALS: BP 148/68; PULSE 58; RESP 20; TEMP 35.9; O2SAT 97
--- NOTE | 2020-11-18 14:26 | PCPTNOTE ---
Ludin Mcguire was evaluated for a slide board on 11/18/2020 by this physical therapist therapeutic recreation assistant. The slide board will resolve patient's mobility limitations and will be used for ADL's within the home. The patient can safely use the slide board. ?The slide board will resolve the patient?s mobility deficits, including impaired balance, decreased strength and endurance.
[2020-11-18 16:53] LABS: Glucose Point of Care 111 (65-105)
[2020-11-18 20:32] VITALS: PULSE 72
[2020-11-18 21:09] LABS: Glucose Point of Care 135 (65-105)
[2020-11-18 22:00] VITALS: BP 147/70; PULSE 74; RESP 18; TEMP 36.1; O2SAT 98
[2020-11-18] MEDS: ALPRAZolam (*CRX) 0.5 MG TABLET 1 MG PO (23:34)
[2020-11-19] MEDS: traMADol HCL (*CRX) 50 MG TABLET PO ×5 (01:06→23:35)
[2020-11-19 06:00] VITALS: BP 164/73; PULSE 58; RESP 18; TEMP 36.3; O2SAT 94
[2020-11-19 06:44] LABS: Glucose Point of Care 91 (65-105)
[2020-11-19 08:00] VITALS: PULSE 62; RESP 18; O2SAT 99
--- NOTE | 2020-11-19 10:19 | WPDCN ---
Assessment and Plan Assessment and plan (1) Amputation of left lower extremity below knee: Code(s): S88.112A - Complete traumatic amputation at level between knee and ankle, left lower leg, initial encounter Status: Acute Assessment and Plan: Healing left BKA at POD 15 Possible early cellulitis. Start Keflex 500 mg po tid for one week. HPI Data of Consult Date/Time: 11/19/20 10:19 Requesting Physician: Luther Mooney MD Primary Care Provider: Master Colbert MD Consult Narrative Narrative: Ludin Mcguire is a 74 year old male with several long standing comorbidities including Etoh abuse, diabetes mellitus, COPD, A-fib and multiple amputations of toes for osteomyelitis. Now POD 15 left BKA. Doing well in inpatient rehab. I was called today to check his stump for acute bleeding. This had stopped by the time I arrived. Appeared to have been for superficial trauma to wound skin edge. Darkened upper flap over the tibial end has returned to normal color. There is shrinkage of stump as expected. There are a few very superficial scabs, presumably from some resolved blisters. Wound appears to be healing adequately. Staple intact. There is a little pinkness that seems unusual and there is fairly exquisite tenderness. These seem suspicious for early cellulitis. Will start some Keflex for a week. [facility] Past Medical History Medical History Alcohol abuse Anxiety Asthma Benign prostatic hyperplasia Cerebrovascular accident Chronic anemia Chronic obstructive pulmonary disease Chronic respiratory failure with hypoxia, on home O2 therapy Depression Diabetic peripheral neuropathy Diastolic congestive heart failure Former smoker Gastroesophageal reflux disease Hearing loss Hypertension Ichthyosis vulgaris Irritable bowel syndrome Mixed hyperlipidemia Osteoarthritis Osteomyelitis History of osteomyelitis of both feet requiring multiple amputations. Persistent atrial fibrillation Not on long-term anticoagulation. Takes aspirin 325 mg daily. Sacrum and coccyx fracture Type 2 diabetes mellitus Diet-controlled. Hemoglobin A1c was 6.0 in June 2020. Surgical History Surgical History History of bilateral cataract extraction History of incision and drainage Right hip abscess. History of tonsillectomy History of total right hip arthroplasty (~2002) History of transmetatarsal amputation of left foot (~2019) History of transmetatarsal amputation of right foot (~2016) History of ventral hernia repair (~2006) Family History Family History Mother Patient's mother is , Onset Age: 31 Father Suicide Social History Social History Social History: The patient lives in [place] in an apartment. 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 He gets Meals on wheels. Has continued to refuse assisted living and the like. He tells me he has been staying with his daughter. He is . 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 Smoked a pack of cigarettes per day for 58 years and quit in December of 2018. He has a history of alcohol abuse although he says he is not drinking much anymore. No illicit substance use, he used marijuana previously. He designates his daughter, Adwoa Xiong, as his surrogate decision maker and he wishes to be a full code. Smoking packs per day: 1 Smoking cigarettes per day: 20.0 Years smoked: 58 Smoking pack-years: 58.00 Smoking status: Former smoker Tobacco type: cigarettes Second hand tobacco smoke exposure: Yes Smoking end date: 12/28/18 Alcohol intake: current Drinks per week: 84 Substance use: never Substance use type: former substance user and marijuana Gender identity (if verbalized by th
[2020-11-19] MEDS: predniSONE 2.5 MG TABLET PO (10:46)
[2020-11-19] MEDS: GABAPENTIN 100 MG CAPSULE 200 MG PO ×3 (10:46→18:27)
[2020-11-19] MEDS: ASPIRIN 325 MG ENTERIC TABLET PO (10:46)
[2020-11-19 10:47] VITALS: PULSE 60
[2020-11-19] MEDS: SIMVASTATIN 10 MG TABLET PO (10:47)
[2020-11-19] MEDS: METOPROLOL TARTRATE 25 MG TABLET PO ×2 (10:47→20:59)
[2020-11-19] MEDS: SERTRALINE HCL 50 MG TABLET PO (10:47)
[2020-11-19] MEDS: MAGNESIUM OXIDE 400 MG TABLET PO (10:47)
[2020-11-19] MEDS: MULTIVITAMINS THERAPEUTIC TAB (*BKC) 1 TABLET PO (10:48)
[2020-11-19] MEDS: FOLIC ACID 1 MG TABLET PO (10:48)
[2020-11-19] MEDS: PANTOPRAZOLE 40 MG TABLET PO ×2 (10:48→20:59)
[2020-11-19] MEDS: LACTIC ACID 12% LOTION 225 BTL 1 APPLIC TOPICAL (10:49)
[2020-11-19] MEDS: HYDROCORTISONE 1% 30 GM CREAM 1 APPLIC TOPICAL ×2 (10:49→21:02)
[2020-11-19] MEDS: DOCUSATE SODIUM 100 MG CAPSULE PO ×2 (10:55→20:59)
[2020-11-19 12:10] LABS: Glucose Point of Care 117 (65-105)
[2020-11-19] MEDS: CEPHALEXIN 500 MG CAPSULE PO ×2 (13:09→20:59)
[2020-11-19 14:00] VITALS: BP 128/61; PULSE 62; RESP 18; TEMP 36.3; O2SAT 99
[2020-11-19] MEDS: ACETAMINOPHEN 500 MG TABLET 1000 MG PO (14:44)
[2020-11-19 17:11] LABS: Glucose Point of Care 119 (65-105)
[2020-11-19 20:45] LABS: Glucose Point of Care 127 (65-105)
[2020-11-19 20:59] VITALS: PULSE 70
[2020-11-19 21:26] VITALS: BP 149/64; PULSE 53; RESP 18; TEMP 36; O2SAT 100
[2020-11-19] MEDS: ALPRAZolam (*CRX) 0.5 MG TABLET 1 MG PO (23:35)
[2020-11-20] VITALS (7 sets, daily range): BP systolic 129–151; BP diastolic 63–70; PULSE 42–85; RESP 18–22; TEMP 35.4–36.6; O2SAT 93–97
[2020-11-20] MEDS: traMADol HCL (*CRX) 50 MG TABLET PO ×4 (05:45→23:42)
[2020-11-20 06:15] LABS: Glucose Point of Care 110 (65-105)
[2020-11-20] MEDS: MAGNESIUM OXIDE 400 MG TABLET PO (09:00)
[2020-11-20] MEDS: MULTIVITAMINS THERAPEUTIC TAB (*BKC) 1 TABLET PO (09:00)
[2020-11-20] MEDS: predniSONE 2.5 MG TABLET PO (09:00)
[2020-11-20] MEDS: SERTRALINE HCL 50 MG TABLET PO (09:00)
[2020-11-20] MEDS: GABAPENTIN 100 MG CAPSULE 200 MG PO ×3 (09:00→17:38)
[2020-11-20] MEDS: PANTOPRAZOLE 40 MG TABLET PO ×2 (09:00→20:03)
[2020-11-20] MEDS: SIMVASTATIN 10 MG TABLET PO (09:00)
[2020-11-20] MEDS: FOLIC ACID 1 MG TABLET PO (09:01)
[2020-11-20] MEDS: CEPHALEXIN 500 MG CAPSULE PO ×2 (09:01→20:01)
[2020-11-20] MEDS: METOPROLOL TARTRATE 25 MG TABLET PO ×2 (09:01→20:01)
[2020-11-20] MEDS: DOCUSATE SODIUM 100 MG CAPSULE PO ×2 (09:01→20:01)
[2020-11-20] MEDS: ASPIRIN 325 MG ENTERIC TABLET PO (09:02)
[2020-11-20] MEDS: HYDROCORTISONE 1% 30 GM CREAM 1 APPLIC TOPICAL ×2 (09:02→21:00)
[2020-11-20] MEDS: LACTIC ACID 12% LOTION 225 BTL 1 APPLIC TOPICAL (09:02)
--- NOTE | 2020-11-20 11:17 | WPDNEURORHBP ---
Subjective Date/time seen: 11/20/20 11:17 74 years old with left lower extremity amputation for the ongoing history of osteomyelitis in addition to history of 1. Alcohol abuse 2. Atrial fibrillation 3. Diabetes mellitus 4. Hypertension 5. COPD 6. Congestive heart failure 7. Chronic anemia 8. Bronchial asthma with chronic respiratory failure and 9. Diabetic neuropathy. Yesterday he was seen by Dr. Heaton as well the left BKA is pod 15 with possible early cellulitis been started on Keflex 500 mg p.o. t.i.d. for [address] Heaton was called for the bleeding from the stump which had stopped and it was related to only superficial trauma to the skin edge the upper flap is return to the normal color and the shrinkage of the stem has been noted is fairly exquisite tenderness with little pink in S of the wound which is suspicious for early cellulitis. No new lab and patient remains afebrile with temp of 35.8? pulse rate of 60 and respiration 18 pulse ox 97% with blood pressure of 129/70 Review of Systems Review of Systems: All systems reviewed & are unremarkable except as noted in HPI and below Functional Status Ambulation Ability Ability to Ambulate 10 Feet: Minimum Assistance X 1 Ambulation Assistive Devices: Parallel Bars Exam Const: General: cooperative, comfortable, no acute distress, alert and awake Nutritional Appearance: thin Orientation/consciousness: patient oriented x3 Limitations: physical limitations HENMT: Ears: hearing grossly normal bilaterally General nose exam: Normal external nose present and No nasal discharge present Face and sinus: normal facial exam Mouth: Yes Normal oral and palatal mucosa present, Yes lip normal, Yes tongue normal and Yes moist mucous membranes Eyes: General: appearance normal, both eyes and all related structures Alignment and Position: alignment normal Eyelids: eyelids normal Conjunctivae: conjunctivae normal Sclera: sclerae normal Cornea: corneas normal Pupils: Equal, round and reactive pupils present EOM: EOMs intact bilaterally Neck: Neck: full ROM and no lymphadenopathy Chest: Chest palpation & inspection: normal inspection of the chest Resp: Effort & Inspection: normal respiratory effort Auscultation: clear to auscultation bilaterally Cardio: Jugular venous distension: no JVD Rate: regular rate Rhythm: regular rhythm GI: Auscultation: normal bowel sounds Skin: General skin exam: no rashes or lesions noted Wounds: amputation site ( as documented has been seen by Dr. Heaton and wound has been taken care) Neuro: General: patient oriented x3 Cranial nerves: Yes CN's II-XII intact bilaterally Cognition (Neuro): normal cognition Speech: normal speech Gait exam (Neuro): Unable to assess gait and Assisted gait required Motor exam (neuro): Pronator motor function not present Sensory Exam: Sensory deficit (Neuro) ( distally) Deep tendon reflexes (DTR's): Right ankle reflex intensity grade: 0 Plantar Reflex Responses: downgoing: right Coordination: [id number] test normal Extrem: General: normal to inspection and full ROM Psych: Appearance: grossly normal Objective Data Vital Signs Vital Signs: Vital Signs - 24 hr 11/19/20 14:00 11/19/20 20:59 11/19/20 21:26 Temperature 36.3 C L 36.0 C L Pulse Rate 62 70 53 L Respiratory Rate 18 18 Blood Pressure 128/61 149/64 H Pulse Oximetry 99 100 11/20/20 05:57 11/20/20 08:00 11/20/20 09:01 Temperature 35.8 C L Pulse Rate 42 L 60 60 Respiratory Rate 18 18 Blood Pressure 129/70 Pulse Oximetry 97 97 Intake/Output Intake/Output: Intake & Output 11/17/20 11/18/20 11/19/20 11/20/20 23:59 23:59 23:59 23:59 Intake Total 960 720 960 Balance 960 720 960 Meds/Results Medications: Active Medications Generic Name Dose Route Start Last Admin Trade Name Freq PRN Reason Stop Dose Admin Acetaminophen 1,000 mg 11/17/20 15:15 11/19/20 14:44 Acetaminophen 500 Mg Tablet PO 1,000 mg Q6H PRN Administra
[2020-11-20 12:06] LABS: Glucose Point of Care 95 (65-105)
[2020-11-20] MEDS: ACETAMINOPHEN 500 MG TABLET 1000 MG PO (12:59)
--- NOTE | 2020-11-20 15:18 | PC.NURSE ---
Earlier this morning while working with PT in the gym, Ludin was standing using parallel bars and according to physical therapist his right knee buckled and he fell to floor, hitting his stump on the way down. Incident report completed by physical therapy. A significant amount of bleeding was noted at the stump which was reinforced with gauze and then pressure dressing applied. Dr. Mooney notified, no other intervention ordered. After some time in the bed, dressing was removed from stump. All mayito were intact, scant amount of blood seen oozing from surgical incision. Dr. Heaton notified, order received to continue light pressure dressing using ESTIVEN wrap and increase dressing changes to daily.
[2020-11-20 16:43] LABS: Glucose Point of Care 133 (65-105)
[2020-11-20] MEDS: diphenhydrAMINE HCl CAP 25 MG CAPSULE PO ×2 (18:47→23:42)
[2020-11-20] MEDS: ALPRAZolam (*CRX) 0.5 MG TABLET 1 MG PO (23:42)
[2020-11-21] VITALS (9 sets, daily range): BP systolic 119–148; BP diastolic 66–83; PULSE 68–96; RESP 18–20; TEMP 35.9–36.3; O2SAT 92–99
[2020-11-21] MEDS: traMADol HCL (*CRX) 50 MG TABLET PO ×4 (05:25→23:59)
[2020-11-21 06:56] LABS: Glucose Point of Care 87 (65-105)
[2020-11-21] MEDS: SIMVASTATIN 10 MG TABLET PO (08:43)
[2020-11-21] MEDS: GABAPENTIN 100 MG CAPSULE 200 MG PO ×3 (08:43→17:33)
[2020-11-21] MEDS: CEPHALEXIN 500 MG CAPSULE PO ×2 (08:44→20:41)
[2020-11-21] MEDS: MAGNESIUM OXIDE 400 MG TABLET PO (08:44)
[2020-11-21] MEDS: FOLIC ACID 1 MG TABLET PO (08:44)
[2020-11-21] MEDS: PANTOPRAZOLE 40 MG TABLET PO ×2 (08:44→20:41)
[2020-11-21] MEDS: ASPIRIN 325 MG ENTERIC TABLET PO (08:44)
[2020-11-21] MEDS: MULTIVITAMINS THERAPEUTIC TAB (*BKC) 1 TABLET PO (08:44)
[2020-11-21] MEDS: predniSONE 2.5 MG TABLET PO (08:44)
[2020-11-21] MEDS: METOPROLOL TARTRATE 25 MG TABLET PO ×2 (08:45→20:39)
[2020-11-21] MEDS: DOCUSATE SODIUM 100 MG CAPSULE PO ×2 (08:45→20:41)
[2020-11-21] MEDS: SERTRALINE HCL 50 MG TABLET PO (08:45)
[2020-11-21] MEDS: LACTIC ACID 12% LOTION 225 BTL 1 APPLIC TOPICAL (08:45)
[2020-11-21] MEDS: HYDROCORTISONE 1% 30 GM CREAM 1 APPLIC TOPICAL ×2 (08:45→20:41)
[2020-11-21] MEDS: ACETAMINOPHEN 500 MG TABLET 1000 MG PO (08:49)
[2020-11-21 12:17] LABS: Glucose Point of Care 96 (65-105)
[2020-11-21 16:57] LABS: Glucose Point of Care 143 (65-105)
[2020-11-21 21:59] LABS: Glucose Point of Care 157 (65-105)
[2020-11-21] MEDS: ALPRAZolam (*CRX) 0.5 MG TABLET 1 MG PO (23:59)
[2020-11-22 06:00] VITALS: BP 117/64; PULSE 51; RESP 20; TEMP 36.1; O2SAT 97
[2020-11-22] MEDS: traMADol HCL (*CRX) 50 MG TABLET PO ×3 (06:15→17:37)
[2020-11-22 06:21] LABS: Glucose Point of Care 86 (65-105)
[2020-11-22 08:00] VITALS: PULSE 51; RESP 20; O2SAT 97
[2020-11-22] MEDS: CEPHALEXIN 500 MG CAPSULE PO ×2 (09:00→20:29)
[2020-11-22] MEDS: predniSONE 2.5 MG TABLET PO (09:00)
[2020-11-22] MEDS: ASPIRIN 325 MG ENTERIC TABLET PO (09:00)
[2020-11-22] MEDS: DOCUSATE SODIUM 100 MG CAPSULE PO ×2 (09:00→20:29)
[2020-11-22] MEDS: PANTOPRAZOLE 40 MG TABLET PO ×2 (09:01→20:29)
[2020-11-22] MEDS: MAGNESIUM OXIDE 400 MG TABLET PO (09:01)
[2020-11-22] MEDS: MULTIVITAMINS THERAPEUTIC TAB (*BKC) 1 TABLET PO (09:01)
[2020-11-22] MEDS: GABAPENTIN 100 MG CAPSULE 200 MG PO ×3 (09:01→17:37)
[2020-11-22] MEDS: FOLIC ACID 1 MG TABLET PO (09:01)
[2020-11-22] MEDS: METOPROLOL TARTRATE 25 MG TABLET PO ×2 (09:01→20:29)
[2020-11-22] MEDS: SIMVASTATIN 10 MG TABLET PO (09:02)
[2020-11-22] MEDS: SERTRALINE HCL 50 MG TABLET PO (09:02)
[2020-11-22] MEDS: LACTIC ACID 12% LOTION 225 BTL 1 APPLIC TOPICAL (09:08)
[2020-11-22] MEDS: HYDROCORTISONE 1% 30 GM CREAM 1 APPLIC TOPICAL ×2 (09:08→20:29)
--- NOTE | 2020-11-22 10:47 | WPDNEURORHBP ---
Subjective Date/time seen: 11/22/20 10:47 74 years old with left lower extremity [id number] amputation for osteomyelitis in addition to the history of 1. Alcohol abuse 2. Atrial fibrillation 3. Diabetes mellitus 4. Hypertension 5. COPD 6. Congestive heart failure 7. Chronic anemia and 8. Bronchial asthma with chronic respiratory failure 9. Diabetic neuropathy patient was noted to have some bleed from the stump for which he was Prieb examined by Dr. Heaton which started on the Keflex recheck the wound, case was discussed in the meeting patient is still having balance problem and hit his stomach sitting in mild bleeding but again that is being taken care accordingly he will be most likely discharged on 28 of November with instruction to have the home health physical therapy occupational therapy nurses visit he required the bathing 8 with WBC and also sliding board. All this was discussed with the family in the family meeting he will also require special shoe for the right foot which has the transmetatarsal amputation. Review of Systems Review of Systems: All systems reviewed & are unremarkable except as noted in HPI and below Functional Status Ambulation Ability Ability to Ambulate 10 Feet: Minimum Assistance X 1 Ambulation Assistive Devices: Parallel Bars Exam Const: General: cooperative, comfortable and no acute distress Nutritional Appearance: average body habitus and thin Limitations: other limitations ( Left below the knee amputation on the right transmetatarsal amputation of) HENMT: Ears: hearing grossly normal bilaterally General nose exam: Normal external nose present Mouth: Yes Normal oral and palatal mucosa present Eyes: General: appearance normal, both eyes and all related structures Alignment and Position: alignment normal Periorbital: periorbital findings normal Eyelids: eyelids normal Conjunctivae: conjunctivae normal Sclera: sclerae normal Cornea: corneas normal Pupils: Equal, round and reactive pupils present EOM: EOMs intact bilaterally Resp: Effort & Inspection: normal respiratory effort Auscultation: clear to auscultation bilaterally Cardio: Jugular venous distension: no JVD Rate: regular rate Rhythm: regular rhythm GI: Auscultation: normal bowel sounds Skin: General skin exam: no rashes or lesions noted Neuro: General: patient oriented x3 and moves all extremities Cranial nerves: Yes CN's II-XII intact bilaterally Cognition (Neuro): normal cognition Speech: normal speech Motor exam (neuro): 5/5 motor strength present throughout Sensory Exam: Sensory deficit (Neuro) Deep tendon reflexes (DTR's): Right triceps reflex intensity grade: 1+, Left triceps reflex intensity grade: 1+, Rt Biceps (C5, C6): 1+, Left biceps reflex intensity grade: 1+, Right brachioradialis reflex intensity grade: 1+, Left brachioradialis reflex intensity grade: 1+, Right patellar reflex intensity grade: 1+, Left patellar reflex intensity grade: 1+ and Right ankle reflex intensity grade: 1+ Coordination: [id number] test normal Psych: Appearance: grossly normal Objective Data Vital Signs Vital Signs: Vital Signs - 24 hr 11/21/20 14:00 11/21/20 20:00 11/21/20 20:39 Temperature 36.2 C L Pulse Rate 68 96 90 Respiratory Rate 18 20 Blood Pressure 119/69 Pulse Oximetry 92 98 11/21/20 21:31 11/22/20 06:00 11/22/20 08:00 Temperature 36.3 C L 36.1 C L Pulse Rate 96 51 L 51 L Respiratory Rate 20 20 20 Blood Pressure 122/66 117/64 Pulse Oximetry 98 97 97 Intake/Output Intake/Output: Intake & Output 11/19/20 11/20/20 11/21/20 11/22/20 23:59 23:59 23:59 23:59 Intake Total 960 1200 960 480 Balance 960 1200 960 480 Meds/Results Medications: Active Medications Generic Name Dose Route Start Last Admin Trade Name Freq PRN Reason Stop Dose Admin Acetaminophen 1,000 mg 11/17/20 15:15 11/21/20 08:49 Acetaminophen 500 Mg Tablet PO 1,000 mg Q6H PRN Administration Mild Pain (1-3) or Fev
[2020-11-22 11:56] LABS: Glucose Point of Care 111 (65-105)
[2020-11-22 13:58] VITALS: TEMP 36.1
[2020-11-22] MEDS: ACETAMINOPHEN 500 MG TABLET 1000 MG PO (13:58)
[2020-11-22] MEDS: ALPRAZolam (*CRX) 0.5 MG TABLET 1 MG PO (13:59)
[2020-11-22 14:00] VITALS: BP 115/58; PULSE 60; RESP 16; TEMP 36.7; O2SAT 100
[2020-11-22 16:56] LABS: Glucose Point of Care 134 (65-105)
[2020-11-22 20:29] VITALS: PULSE 68
[2020-11-23] MEDS: traMADol HCL (*CRX) 50 MG TABLET PO ×5 (00:09→23:56)
[2020-11-23] MEDS: diphenhydrAMINE HCl CAP 25 MG CAPSULE PO ×2 (00:09→16:01)
[2020-11-23] MEDS: ALPRAZolam (*CRX) 0.5 MG TABLET 1 MG PO (00:09)
[2020-11-23 05:20] LABS: Basophils Absolute Auto 0.1 K/mm3 (0.0-0.1); Basophils Percent Auto 0.7 % (0.2-1.2); Eosinophils Absolute Auto 0.4 K/mm3 (0-0.3); Eosinophils Percent Auto 5.2 % (0-4.4); Hematocrit 32.2 % (42.0-52.0); Hemoglobin 9.4 g/dL (14.0-18.0); Immature Granulocyte Absolute 0.12 K/mm3 (0.00-0.031); Immature Granulocyte Percent A 1.6 % (0-0.5); Lymphocytes Absolute Auto 1.64 K/mm3 (0.9-3.2); Lymphocytes Percent Auto 21.8 % (18.3-44.2); Mean Corpuscular HGB Conc 29.2 g/dl (32-36); Mean Corpuscular Hemoglobin 24.5 pg (26-34); Mean Corpuscular Volume 84.1 fl (80-100); Mean Platelet Volume 9.6 fl (7.4-10.4); Monocytes Absolute Auto 0.6 K/mm3 (0.1-0.6); Monocytes Percent Auto 8.5 % (2.6-8.5); Neutrophils Absolute Auto 4.7 K/mm3 (1.3-6.7); Neutrophils Percent Auto 62.2 % (45.5-73.1); Platelet Count Result 265 k/mm3 (150-375); Red Blood Count 3.83 M/mm3 (4.6-6.20); Red Cell Distribution Width 14.5 % (11.5-14.5); White Blood Count 7.5 K/mm3 (4.5-10.0)
[2020-11-23 05:47] LABS: Anion Gap 4 mmol/L (8-16); Blood Urea Nitrogen 48 mg/dL (9-20); Calcium 8.2 mg/dL (8.4-10.2); Carbon Dioxide 31 mmol/L (22-30); Chloride 102 mmol/L (98-107); Estimated CRCL calculation 48 ml/min; Estimated Glomerular Filt Rate 54; Glucose 95 mg/dL (75-110); Potassium 4.4 mmol/L (3.4-5.0); Sodium 137 mmol/L (137-145)
[2020-11-23 06:00] VITALS: BP 141/77; PULSE 82; RESP 20; TEMP 36.1; O2SAT 90
[2020-11-23 06:25] LABS: Glucose Point of Care 104 (65-105)
[2020-11-23 08:22] VITALS: PULSE 82
[2020-11-23] MEDS: GABAPENTIN 100 MG CAPSULE 200 MG PO ×3 (08:22→17:20)
[2020-11-23] MEDS: CEPHALEXIN 500 MG CAPSULE PO ×2 (08:22→19:58)
[2020-11-23] MEDS: ASPIRIN 325 MG ENTERIC TABLET PO (08:22)
[2020-11-23] MEDS: DOCUSATE SODIUM 100 MG CAPSULE PO ×2 (08:22→20:01)
[2020-11-23] MEDS: FOLIC ACID 1 MG TABLET PO (08:22)
[2020-11-23] MEDS: predniSONE 2.5 MG TABLET PO (08:22)
[2020-11-23] MEDS: SIMVASTATIN 10 MG TABLET PO (08:22)
[2020-11-23] MEDS: MAGNESIUM OXIDE 400 MG TABLET PO (08:22)
[2020-11-23] MEDS: SERTRALINE HCL 50 MG TABLET PO (08:22)
[2020-11-23] MEDS: MULTIVITAMINS THERAPEUTIC TAB (*BKC) 1 TABLET PO (08:22)
[2020-11-23] MEDS: PANTOPRAZOLE 40 MG TABLET PO ×2 (08:22→19:58)
[2020-11-23] MEDS: METOPROLOL TARTRATE 25 MG TABLET PO ×2 (08:22→19:58)
[2020-11-23] MEDS: LACTIC ACID 12% LOTION 225 BTL 1 APPLIC TOPICAL (08:23)
[2020-11-23] MEDS: HYDROCORTISONE 1% 30 GM CREAM 1 APPLIC TOPICAL ×2 (08:23→20:01)
--- NOTE | 2020-11-23 09:47 | WPDNEURORHBP ---
Subjective Date/time seen: 11/23/20 09:47 74 years old with left [id number] amputation for osteomyelitis in addition to other multiple medical problems as outlined before has been involved in the physical therapy and occupational therapy Review of Systems Review of Systems: All systems reviewed & are unremarkable except as noted in HPI and below Functional Status Ambulation Ability Ability to Ambulate 10 Feet: Minimum Assistance X 1 Ambulation Assistive Devices: Parallel Bars Exam Const: General: comfortable, no acute distress, alert and awake Nutritional Appearance: thin Orientation/consciousness: oriented to person and oriented to place HENMT: Ears: hearing grossly normal bilaterally General nose exam: Normal external nose present Face and sinus: normal facial exam Mouth: Yes Normal oral and palatal mucosa present Eyes: General: appearance normal, both eyes and all related structures Neck: Neck: full ROM and no lymphadenopathy Resp: Effort & Inspection: normal respiratory effort and able to speak in complete sentences Auscultation: clear to auscultation bilaterally Cardio: Rate: regular rate Rhythm: regular rhythm Skin: General skin exam: no rashes or lesions noted Lesions: no lesions Wounds: amputation site ( looks clean with some dry blood as mentioned before) Neuro: General: oriented to person and oriented to place Cranial nerves: Yes CN's II-XII intact bilaterally Cognition (Neuro): normal cognition Speech: normal speech Motor exam (neuro): Normal motor muscle tone present throughout Sensory Exam: Sensory deficit (Neuro) Psych: Appearance: grossly normal Objective Data Vital Signs Vital Signs: Vital Signs - 24 hr 11/22/20 13:58 11/22/20 14:00 11/22/20 20:29 Temperature 36.1 C L 36.7 C Pulse Rate 60 68 Respiratory Rate 16 Blood Pressure 115/58 L Pulse Oximetry 100 11/23/20 06:00 11/23/20 08:22 Temperature 36.1 C L Pulse Rate 82 82 Respiratory Rate 20 Blood Pressure 141/77 H Pulse Oximetry 90 Intake/Output Intake/Output: Intake & Output 11/20/20 11/21/20 11/22/20 11/23/20 23:59 23:59 23:59 23:59 Intake Total 1200 960 720 480 Balance 1200 960 720 480 Meds/Results Medications: Active Medications Generic Name Dose Route Start Last Admin Trade Name Freq PRN Reason Stop Dose Admin Acetaminophen 1,000 mg 11/17/20 15:15 11/22/20 13:58 Acetaminophen 500 Mg Tablet PO 1,000 mg Q6H PRN Administration Mild Pain (1-3) or Fever Albuterol 2.5 mg 11/15/20 12:56 Albuterol Sulfate Neb 2.5 Mg/3 Ml Inh INHALATION TID PRN Shortness Of Breath Alprazolam 1 mg 11/15/20 13:00 11/23/20 00:09 Alprazolam (*Crx) 0.5 Mg Tablet PO 1 mg TID PRN Administration Anxiety Aspirin 325 mg 11/16/20 09:00 11/23/20 08:22 Aspirin 325 Mg Enteric Tablet PO 325 mg QAM KALPESH Administration Cephalexin HCl 500 mg 11/19/20 10:45 11/23/20 08:22 Cephalexin 500 Mg Capsule PO 500 mg Q12HR KALPESH Administration Dextrose 12.5 gm 11/15/20 12:41 Dextrose 50% 25 Gm/50 Ml Syringe IV PUSH PRN PRN Hypoglycemia Protocol Diphenhydramine HCl 25 mg 11/15/20 13:01 11/23/20 00:09 Diphenhydramine Hcl Cap 25 Mg Capsule PO 25 mg Q6H PRN Administration Itching Docusate Sodium 100 mg 11/15/20 21:00 11/23/20 08:22 Docusate Sodium 100 Mg Capsule PO 100 mg Q12HR KALPESH Administration Folic Acid 1 mg 11/16/20 09:00 11/23/20 08:22 Folic Acid 1 Mg Tablet PO 1 mg DAILY KALPESH Administration Gabapentin 200 mg 11/15/20 13:00 11/23/20 08:22 Gabapentin 100 Mg Capsule PO 200 mg TID KALPESH Administration Glucagon 1 mg 11/15/20 12:41 Glucagon For Inj 1 Mg Vial IM PRN PRN Hypoglycemia Protocol Glucose 15 gm 11/15/20 12:41 Glucose Oral Gel 15 Gm Of Glucse In 37.5 Gm Tube PO PRN PRN Hypoglycemia Protocol Hydrocortisone 1 applic 11/15/20 21:00 11/23/20 08:23 H
--- NOTE | 2020-11-23 13:00 | PCDIET ---
Nutrition Follow-Up Complete: Increased protein needs related to wound healing as evidenced by recent BKA. Goal: Patient to consume 75% of meals/supplements or greater. Patient is meeting current goal. No new goal at this time. Pt current nutrition is heart healthy. Last recorded weight is 75.387 kg. Bowel Motility: + BM 11/22 Labs Reviewed: Hgb 9.4, Hct 32.3, GFR 54, BUN 48, Ca 8.2 Meds Noted: prednisone, protinix, colace, folic acid, zofran, lopressor, spiriva, ultram Additional Notes: Spoke with nurse. Patient has been eating 100% of all meals received. Abimael BID for wound healing. Great appetite and no swallowing issues. Follow up in 7 days.
--- NOTE | 2020-11-23 13:11 | PCNSR ---
On 11/23/20, the student,Dolores Granda, provided care and completed [facility] documentation on this patient. I have reviewed the student's documentation and agree with the findings.
[2020-11-23 14:00] VITALS: BP 129/67; PULSE 79; RESP 20; TEMP 36.2; O2SAT 96
--- NOTE | 2020-11-23 15:02 | PCOTNOTE ---
Mr. Mcguire was evaluated for a drop arm commode on 11/23/20 by this occupational therapist.? The drop arm commode will resolve patient's inability to transfer to a standard toilet or commode due to left below knee amputation complicated by h/o DM, respiratory failure requiring home oxygen, CVA, anxiety, peripheral neuropathy, and right transmetatarsal amputation. The patient can safely use the drop arm commode. The drop arm commode will allow the patient to complete toileting tasks and transfer to toilet independently.
[2020-11-23 19:58] VITALS: PULSE 64
[2020-11-23] MEDS: ACETAMINOPHEN 500 MG TABLET 1000 MG PO (20:35)
[2020-11-23 22:00] VITALS: BP 137/84; PULSE 67; RESP 18; TEMP 36.7; O2SAT 97
[2020-11-24] VITALS (7 sets, daily range): BP systolic 130–170; BP diastolic 88–99; PULSE 57–84; RESP 16–22; TEMP 35.8–37.2; O2SAT 92–99
[2020-11-24] MEDS: traMADol HCL (*CRX) 50 MG TABLET PO ×4 (06:06→23:33)
[2020-11-24 06:37] LABS: Glucose Point of Care 94 (65-105)
[2020-11-24] MEDS: GABAPENTIN 100 MG CAPSULE 200 MG PO ×3 (08:00→17:18)
[2020-11-24] MEDS: MAGNESIUM OXIDE 400 MG TABLET PO (08:20)
[2020-11-24] MEDS: DOCUSATE SODIUM 100 MG CAPSULE PO ×2 (08:20→20:30)
[2020-11-24] MEDS: SERTRALINE HCL 50 MG TABLET PO (08:20)
[2020-11-24] MEDS: ASPIRIN 325 MG ENTERIC TABLET PO (08:21)
[2020-11-24] MEDS: FOLIC ACID 1 MG TABLET PO (08:21)
[2020-11-24] MEDS: CEPHALEXIN 500 MG CAPSULE PO ×2 (08:21→20:30)
[2020-11-24] MEDS: METOPROLOL TARTRATE 25 MG TABLET PO ×2 (08:21→20:30)
[2020-11-24] MEDS: MULTIVITAMINS THERAPEUTIC TAB (*BKC) 1 TABLET PO (08:22)
[2020-11-24] MEDS: predniSONE 2.5 MG TABLET PO (08:22)
[2020-11-24] MEDS: SIMVASTATIN 10 MG TABLET PO (08:22)
[2020-11-24] MEDS: LACTIC ACID 12% LOTION 225 BTL 1 APPLIC TOPICAL (08:25)
[2020-11-24] MEDS: HYDROCORTISONE 1% 30 GM CREAM 1 APPLIC TOPICAL ×2 (09:00→20:41)
[2020-11-24] MEDS: PANTOPRAZOLE 40 MG TABLET PO ×2 (09:46→20:31)
--- NOTE | 2020-11-24 11:10 | PCPTNOTE ---
Addendum entered by Pamella Mosqueda PTA 11/24/20 11:13: Recommended Swing Away arm rests to promote independence with slide board transfer. Original Note: Pamella Mosqueda PTA completed an inpatient rehab wheelchair evaluation on Ludin Mcguire on 11/24/2020. The patient is unable to safely and independently ambulate household distances due to their current impairments. Their diagnosis is L bka and their impairments include decreased strength, decreased endurance, decreased range of motion, decreased balance and lower extremity weakness. Ludin's weight bearing status is weight-bearing as tolerated on the right lower leg and nonweight bearing of left lower leg. The patient demonstrates significant functional mobility limitations that impair their ability to participate in mobility-related activities of daily living (MRADLs), including toileting, feeding, dressing, grooming, and bathing in the customary locations in the home. These limitations cannot be sufficiently resolved by the use of an appropriately fitted cane or walker. It is recommended that the patient utilize a wheelchair for functional mobility within the home in order to facilitate optimal safety, independence and participation in all MRADL's and adequately access their home environment on a regular basis. The patient's home provides adequate access between rooms, maneuvering space, and surfaces to accommodate the recommended wheelchair. The use of a wheelchair for functional mobility is strongly recommended and the patient is receptive to using the wheelchair. The use of this wheelchair will significantly improve the patient's ability to participate in MRADLS and the patient will use it on a regular basis in the home. This will facilitate optimal safety, independence, and participation. The patient has demonstrated sufficient physical and mental capabilities needed to safely propel a manual wheelchair that is provided in the home during a typical day. Recommended Wheelchair Frame: Standard Recommended Wheelchair Size: 18x18 Recommended Wheelchair Cushion:Standard Wheelchair Leg Recommendations: Left residual limb leg rest and swing away right leg rest. -Anti-tippers are recommended due to patient demonstrating increased risk for falls. They would benefit from anti-tippers with added safety and stabilization. Pamella Mosqueda METAL CAN INSPECTOR 11-24-2020 Evaluating Therapist Date I agree with and certify that the above recommendation is medically necessary. Referring Physician Date I agree with and certify that the above recommendation is medically necessary. Referring Physician Date
[2020-11-24] MEDS: ACETAMINOPHEN 500 MG TABLET 1000 MG PO (20:37)
[2020-11-24] MEDS: diphenhydrAMINE HCl CAP 25 MG CAPSULE PO ×2 (23:33)
[2020-11-24] MEDS: ALPRAZolam (*CRX) 0.5 MG TABLET 1 MG PO ×2 (23:33)
[2020-11-25] MEDS: traMADol HCL (*CRX) 50 MG TABLET PO ×3 (05:51→17:15)
[2020-11-25 05:57] LABS: Glucose Point of Care 100 (65-105)
[2020-11-25 06:00] VITALS: BP 153/66; PULSE 38; RESP 20; TEMP 35.7; O2SAT 92
[2020-11-25] MEDS: predniSONE 2.5 MG TABLET PO (07:37)
[2020-11-25] MEDS: ACETAMINOPHEN 500 MG TABLET 1000 MG PO (08:07)
[2020-11-25] MEDS: FOLIC ACID 1 MG TABLET PO (08:38)
[2020-11-25] MEDS: GABAPENTIN 100 MG CAPSULE 200 MG PO ×3 (08:38→16:42)
[2020-11-25 08:39] VITALS: PULSE 68
[2020-11-25] MEDS: MAGNESIUM OXIDE 400 MG TABLET PO (08:39)
[2020-11-25] MEDS: ASPIRIN 325 MG ENTERIC TABLET PO (08:39)
[2020-11-25] MEDS: CEPHALEXIN 500 MG CAPSULE PO ×2 (08:39→20:22)
[2020-11-25] MEDS: DOCUSATE SODIUM 100 MG CAPSULE PO ×2 (08:39→20:23)
[2020-11-25] MEDS: MULTIVITAMINS THERAPEUTIC TAB (*BKC) 1 TABLET PO (08:39)
[2020-11-25] MEDS: PANTOPRAZOLE 40 MG TABLET PO ×2 (08:39→20:24)
[2020-11-25] MEDS: METOPROLOL TARTRATE 25 MG TABLET PO ×2 (08:39→20:23)
[2020-11-25] MEDS: SERTRALINE HCL 50 MG TABLET PO (08:40)
[2020-11-25 08:44] VITALS: PULSE 68
[2020-11-25] MEDS: SIMVASTATIN 10 MG TABLET PO (09:32)
--- NOTE | 2020-11-25 09:58 | WPDNEURORHBP ---
Subjective Date/time seen: 11/25/20 09:58 74 years old with left oeryf-grl-rxzn amputation for osteomyelitis in addition to other multiple medical problems is being considered to be transferred to other facility he will require a custom M2 Shirley richardsonal and will follow up with Jarad as an outpatient order has been written. Recent lab include the CBC with WBCs of 7.5 hemoglobin 9.4 and the platelet count of 265 electrolytes with sodium 137 potassium 4.4 BUN 48 with creatinine of 1.30 and estimated GFR of 54 most recent blood sugar 100 and calcium 8.2, he remains afebrile with temp of 35.7? pulse 68 respiration 20 pulse ox 92% on room air sitting and the blood pressure 153/66 also there has been no specific change in the medications. Review of Systems Review of Systems: All systems reviewed & are unremarkable except as noted in HPI and below Functional Status Ambulation Ability Ability to Ambulate 10 Feet: Minimum Assistance X 1 Ambulation Assistive Devices: Walker, Wheeled Exam Const: General: cooperative, comfortable, alert and awake Nutritional Appearance: thin Orientation/consciousness: oriented to person and oriented to place Limitations: physical limitations HENMT: Ears: hearing grossly normal bilaterally General nose exam: Normal external nose present Face and sinus: normal facial exam Mouth: Yes Normal oral and palatal mucosa present Eyes: General: appearance normal, both eyes and all related structures Alignment and Position: alignment normal Periorbital: periorbital findings normal Eyelids: eyelids normal Conjunctivae: conjunctivae normal Sclera: sclerae normal Cornea: corneas normal Pupils: Equal, round and reactive pupils present EOM: EOMs intact bilaterally Neck: Neck: full ROM and no lymphadenopathy Resp: Effort & Inspection: normal respiratory effort Auscultation: clear to auscultation bilaterally Cardio: Jugular venous distension: no JVD Rate: regular rate Rhythm: regular rhythm GI: Auscultation: normal bowel sounds Skin: General skin exam: no rashes or lesions noted Wounds: amputation site ( Improving) Neuro: General: oriented to person, oriented to place and moves all extremities Cranial nerves: Yes CN's II-XII intact bilaterally Speech: normal speech Motor exam (neuro): 5/5 motor strength present throughout ( generally decreased) Sensory Exam: Sensory deficit (Neuro) ( distally) Deep tendon reflexes (DTR's): Right triceps reflex intensity grade: 1+, Left triceps reflex intensity grade: 1+, Rt Biceps (C5, C6): 1+, Left biceps reflex intensity grade: 1+, Right brachioradialis reflex intensity grade: 1+, Left brachioradialis reflex intensity grade: 1+, Right patellar reflex intensity grade: 1+ and Left patellar reflex intensity grade: 1+ Psych: Appearance: grossly normal Objective Data Vital Signs Vital Signs: Vital Signs - 24 hr 11/24/20 14:00 11/24/20 20:00 11/24/20 20:30 Temperature 37.2 C Pulse Rate 70 84 70 Respiratory Rate 22 H 20 Blood Pressure 149/88 H Pulse Oximetry 99 92 11/24/20 21:56 11/24/20 23:45 11/25/20 06:00 Temperature 35.8 C L 35.7 C L Pulse Rate 84 38 L Respiratory Rate 20 20 Blood Pressure 170/99 H 160/88 H 153/66 H Pulse Oximetry 92 92 11/25/20 08:39 11/25/20 08:44 Temperature Pulse Rate 68 68 Respiratory Rate Blood Pressure Pulse Oximetry Intake/Output Intake/Output: Intake & Output 11/22/20 11/23/20 11/24/20 11/25/20 23:59 23:59 23:59 23:59 Intake Total 720 1440 340 420 Output Total 800 Balance 720 1440 -460 420 Meds/Results Medications: Active Medications Generic Name Dose Route Start Last Admin Trade Name Freq PRN Reason Stop Dose Admin Acetaminophen 1,000 mg 11/17/20 15:15 11/25/20 08:07 Acetaminophen 500 Mg Tablet PO 1,000 mg Q6H PRN Administration Mild Pain (1-3) or Fever Albuterol 2.5 mg 11/15/20 12:56 Albuterol Sulfate Neb 2.5 Mg/3 Ml Inh INHALATION TID PRN Shortness Of
[2020-11-25] MEDS: LACTIC ACID 12% LOTION 225 BTL 1 APPLIC TOPICAL (11:45)
[2020-11-25 14:00] VITALS: BP 132/67; PULSE 56; RESP 18; TEMP 36.2; O2SAT 99
[2020-11-25] MEDS: diphenhydrAMINE HCl CAP 25 MG CAPSULE PO (14:14)
[2020-11-25 20:18] VITALS: BP 150/91; PULSE 66; RESP 16; TEMP 36.3; O2SAT 98
[2020-11-25 20:23] VITALS: PULSE 66
[2020-11-25] MEDS: HYDROCORTISONE 1% 30 GM CREAM 1 APPLIC TOPICAL (20:25)
[2020-11-25] MEDS: ALPRAZolam (*CRX) 0.5 MG TABLET 1 MG PO (22:55)
[2020-11-26] MEDS: traMADol HCL (*CRX) 50 MG TABLET PO ×5 (00:01→23:54)
[2020-11-26 00:42] LABS: Glucose Point of Care 163 (65-105)
[2020-11-26 05:44] VITALS: BP 149/68; PULSE 58; RESP 16; TEMP 36.4; O2SAT 97
[2020-11-26 06:46] LABS: Glucose Point of Care 95 (65-105)
[2020-11-26] MEDS: ACETAMINOPHEN 500 MG TABLET 1000 MG PO (08:49)
[2020-11-26] MEDS: PANTOPRAZOLE 40 MG TABLET PO ×2 (08:50→20:24)
[2020-11-26] MEDS: ASPIRIN 325 MG ENTERIC TABLET PO (08:50)
[2020-11-26] MEDS: predniSONE 2.5 MG TABLET PO (08:51)
[2020-11-26] MEDS: DOCUSATE SODIUM 100 MG CAPSULE PO ×2 (08:51→20:24)
[2020-11-26] MEDS: GABAPENTIN 100 MG CAPSULE 200 MG PO ×3 (08:51→17:47)
[2020-11-26] MEDS: FOLIC ACID 1 MG TABLET PO (08:51)
[2020-11-26] MEDS: CEPHALEXIN 500 MG CAPSULE PO ×2 (08:51→20:23)
[2020-11-26] MEDS: HYDROCORTISONE 1% 30 GM CREAM 1 APPLIC TOPICAL ×2 (08:51→20:30)
[2020-11-26 08:52] VITALS: PULSE 58
[2020-11-26] MEDS: SERTRALINE HCL 50 MG TABLET PO (08:52)
[2020-11-26] MEDS: LACTIC ACID 12% LOTION 225 BTL 1 APPLIC TOPICAL (08:52)
[2020-11-26] MEDS: SIMVASTATIN 10 MG TABLET PO (08:52)
[2020-11-26] MEDS: MAGNESIUM OXIDE 400 MG TABLET PO (08:52)
[2020-11-26] MEDS: METOPROLOL TARTRATE 25 MG TABLET PO ×2 (08:52→20:24)
[2020-11-26] MEDS: MULTIVITAMINS THERAPEUTIC TAB (*BKC) 1 TABLET PO (08:52)
[2020-11-26] MEDS: diphenhydrAMINE HCl CAP 25 MG CAPSULE PO (08:59)
[2020-11-26 12:09] LABS: Glucose Point of Care 121 (65-105)
[2020-11-26 14:00] VITALS: BP 120/82; PULSE 58; RESP 16; TEMP 36.3; O2SAT 97
[2020-11-26 16:55] LABS: Glucose Point of Care 279 (65-105)
[2020-11-26 20:15] VITALS: BP 150/76; PULSE 66; RESP 20; TEMP 36.7; O2SAT 97
[2020-11-26 20:24] VITALS: PULSE 66
[2020-11-26 20:38] LABS: Glucose Point of Care 118 (65-105)
[2020-11-26] MEDS: ALPRAZolam (*CRX) 0.5 MG TABLET 1 MG PO (22:57)
[2020-11-27 05:43] VITALS: PULSE 28
[2020-11-27 05:46] VITALS: BP 151/64; PULSE 48; RESP 20; TEMP 35.9; O2SAT 97
--- NOTE | 2020-11-27 06:16 | ECG_ITS ---
Measurements Intervals [place] Rate: 44 P: [place]: 0 QRS: 26 QRSD: 93 T: 53 QT: 447 QTc: 383 Interpretive Statements ATRIAL FIBRILLATION WITH SLOW VENTRICULAR RESPONSE ANTEROSEPTAL INFARCT, AGE INDETERMINATE CONSIDER INFERIOR INFARCT, AGE INDETERMINATE ABNORMAL ECG Electronically Signed On 11-27-2020 6:54:18 DE [employer] by Yahri Lopez D.O.
[2020-11-27 06:22] LABS: Glucose Point of Care 103 (65-105)
--- NOTE | 2020-11-27 07:50 | PC.NURSE ---
0600 Patient's pulse was low ranging from 28-48 while sitting up in bed. His pulse was 28 on the vital machine but only stayed there seconds before it popped back up into the 30-40's. His pulse radially was 48.
--- NOTE | 2020-11-27 07:56 | PC.NURSE ---
0600 When the patient's pulse was low he was asymptomatic. He stated that he was just tired.
[2020-11-27] MEDS: ACETAMINOPHEN 500 MG TABLET 1000 MG PO (08:42)
[2020-11-27] MEDS: ASPIRIN 325 MG ENTERIC TABLET PO (08:47)
[2020-11-27] MEDS: DOCUSATE SODIUM 100 MG CAPSULE PO ×2 (08:47→20:21)
[2020-11-27] MEDS: CEPHALEXIN 500 MG CAPSULE PO ×2 (08:47→20:21)
[2020-11-27] MEDS: predniSONE 2.5 MG TABLET PO (08:47)
[2020-11-27] MEDS: LACTIC ACID 12% LOTION 225 BTL 1 APPLIC TOPICAL (08:48)
[2020-11-27] MEDS: MAGNESIUM OXIDE 400 MG TABLET PO (08:48)
[2020-11-27] MEDS: HYDROCORTISONE 1% 30 GM CREAM 1 APPLIC TOPICAL ×2 (08:48→20:21)
[2020-11-27] MEDS: FOLIC ACID 1 MG TABLET PO (08:48)
[2020-11-27] MEDS: GABAPENTIN 100 MG CAPSULE 200 MG PO ×3 (08:48→17:37)
[2020-11-27] MEDS: PANTOPRAZOLE 40 MG TABLET PO ×2 (08:49→20:21)
[2020-11-27] MEDS: MULTIVITAMINS THERAPEUTIC TAB (*BKC) 1 TABLET PO (08:49)
[2020-11-27] MEDS: SIMVASTATIN 10 MG TABLET PO (08:49)
[2020-11-27] MEDS: SERTRALINE HCL 50 MG TABLET PO (08:49)
--- NOTE | 2020-11-27 10:30 | PC.NURSE ---
Patient seen by hospitalist during the night for low heart rate (28) and metoprolol placed on hold. Dr. Foy in this morning and would like to keep a few more days to monitor, but does not want to move him to medical floor; and is changing his metoprolol to 12.5 mg bid starting tomorrow, 11/28/2020. Spoke with Dr. Mooney and he is OK with him staying few more days and left message for party coordinator.
[2020-11-27] MEDS: traMADol HCL (*CRX) 50 MG TABLET PO ×3 (12:06→23:32)
[2020-11-27 14:00] VITALS: BP 151/77; PULSE 89; RESP 20; TEMP 36.1; O2SAT 99
--- NOTE | 2020-11-27 16:13 | PM.IMCN ---
Assessment and Plan Assessment and plan (1) Atrial fibrillation with slow ventricular response: Code(s): I48.91 - Unspecified atrial fibrillation Status: Acute Assessment and Plan: Ludin Mcguire is a 74 year old male male with history of chronic atrial fibrillation and significant AV nod dysfunction and history of bradycardia initially patient was seen by crew foreman when the patient was on the medical floor developed bradycardia and plan was to hold the beta-wily however it was continued while in TRC he remained stable and rate was controlled however last night patient heart rate dropped to 28 and weed cooking operator was called and metoprolol 25 mg b.i.d. was stopped and now is heart rate is trending up, patient has no complaint of chest pain shortness of breath palpitation or dizziness he has been able to participate in his physical therapy and there is a plan to discharge patient home tomorrow however we will decrease patient's metoprolol to 12.5 mg b.i.d. and monitor patient overnight if remains clinically stable will discharge, thank you for consulting us for medical management of this patient, will follow the patient with you, if have any question please feel free to call us. HPI Data of Consult Consult date: 11/27/20 Requesting Physician: Luther Mooney MD Primary Care Provider: Master Colbert MD Consult Narrative Narrative: Ludin Mcguire is a 74 year old male male with history of chronic atrial fibrillation and significant AV nod dysfunction and history of bradycardia initially patient was seen by crew foreman when the patient was on the medical floor developed bradycardia and plan was to hold the beta-wily however it was continued while in TRC he remained stable and rate was controlled however last night patient heart rate dropped to 28 and weed cooking operator was called and metoprolol 25 mg b.i.d. was stopped and now is heart rate is trending up, patient has no complaint of chest pain shortness of breath palpitation or dizziness he has been able to participate in his physical therapy and there is a plan to discharge patient home tomorrow however we will decrease patient's metoprolol to 12.5 mg b.i.d. and monitor patient overnight if remains clinically stable will discharge, thank you for consulting us for medical management of this patient, will follow the patient with you, if have any question please feel free to call us. Review of Systems Review of Systems: All systems reviewed & are unremarkable except as noted in HPI and below PMFSH Past Medical History Medical History Alcohol abuse Anxiety Asthma Benign prostatic hyperplasia Cerebrovascular accident Chronic anemia Chronic obstructive pulmonary disease Chronic respiratory failure with hypoxia, on home O2 therapy Depression Diabetic peripheral neuropathy Diastolic congestive heart failure Former smoker Gastroesophageal reflux disease Hearing loss Hypertension Ichthyosis vulgaris Irritable bowel syndrome Mixed hyperlipidemia Osteoarthritis Osteomyelitis History of osteomyelitis of both feet requiring multiple amputations. Persistent atrial fibrillation Not on long-term anticoagulation. Takes aspirin 325 mg daily. Sacrum and coccyx fracture Type 2 diabetes mellitus Diet-controlled. Hemoglobin A1c was 6.0 in June 2020. Surgical History Surgical History History of bilateral cataract extraction History of incision and drainage Right hip abscess. 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
[2020-11-27 20:00] VITALS: O2SAT 99
[2020-11-27 21:50] VITALS: BP 170/86; PULSE 63; RESP 20; TEMP 36.3; O2SAT 98
[2020-11-27] MEDS: ALPRAZolam (*CRX) 0.5 MG TABLET 1 MG PO (23:32)
[2020-11-28] VITALS (8 sets, daily range): BP systolic 135–156; BP diastolic 72–99; PULSE 62–81; RESP 16–18; TEMP 36.3–36.6; O2SAT 96–100
[2020-11-28] MEDS: traMADol HCL (*CRX) 50 MG TABLET PO ×4 (06:29→23:53)
[2020-11-28 06:56] LABS: Glucose Point of Care 88 (65-105)
[2020-11-28] MEDS: predniSONE 2.5 MG TABLET PO (08:22)
[2020-11-28] MEDS: MULTIVITAMINS THERAPEUTIC TAB (*BKC) 1 TABLET PO (08:22)
[2020-11-28] MEDS: FOLIC ACID 1 MG TABLET PO (08:22)
[2020-11-28] MEDS: PANTOPRAZOLE 40 MG TABLET PO ×2 (08:22→20:25)
[2020-11-28] MEDS: SIMVASTATIN 10 MG TABLET PO (08:22)
[2020-11-28] MEDS: SERTRALINE HCL 50 MG TABLET PO (08:22)
[2020-11-28] MEDS: METOPROLOL TARTRATE 12.5 MG TABLET PO ×2 (08:23→20:25)
[2020-11-28] MEDS: GABAPENTIN 100 MG CAPSULE 200 MG PO ×3 (08:23→17:31)
[2020-11-28] MEDS: CEPHALEXIN 500 MG CAPSULE PO ×2 (08:23→20:26)
[2020-11-28] MEDS: DOCUSATE SODIUM 100 MG CAPSULE PO ×2 (08:23→20:26)
[2020-11-28] MEDS: ASPIRIN 325 MG ENTERIC TABLET PO (08:23)
[2020-11-28] MEDS: MAGNESIUM OXIDE 400 MG TABLET PO (08:23)
[2020-11-28] MEDS: HYDROCORTISONE 1% 30 GM CREAM 1 APPLIC TOPICAL ×2 (08:24→20:26)
[2020-11-28] MEDS: LACTIC ACID 12% LOTION 225 BTL 1 APPLIC TOPICAL (08:24)
--- NOTE | 2020-11-28 10:11 | WPDNEURORHBP ---
Subjective Date/time seen: 11/28/20 10:11 74 years old with left [id number] amputation for osteomyelitis has been involved in the physical therapy and occupational therapy, he was seen by Dr. Viramontes of for the ongoing history of atrial fibrillation with slow ventricular response mainly because his heart rate dropped to 28 metoprolol 25 mg twice a day was dropped and the heart rate was trending upward we are holding his discharge for couple of days for that reason, his blood sugars 88, ultrasound revealed no significant arterial occlusive disease to either limb with normal bilateral AB eyes but cardiac arrhythmia was present and the foot x-rays of the left foot reveal prior 1st and 5th transmetatarsal amputation with advanced residual recurrent osteomyelitis and secondary pathological fractures involving the majority the remaining 1st metatarsals, patient has remained afebrile with temp of 36.3? pulse 81 respiration 18 pulse ox 100 blood pressure 135/72 in supine and he is on room air. Review of Systems Review of Systems: All systems reviewed & are unremarkable except as noted in HPI and below Functional Status Ambulation Ability Ability to Ambulate 10 Feet: Minimum Assistance X 1 Ambulation Assistive Devices: Walker, Wheeled Exam Const: General: cooperative, comfortable, no acute distress and alert Nutritional Appearance: average body habitus and thin Orientation/consciousness: patient oriented x3 Limitations: physical limitations ( left [id number] amputation in addition to the right foot transmetatars) HENMT: Head: normocephalic General nose exam: Normal external nose present Face and sinus: normal facial exam Mouth: Yes Normal oral and palatal mucosa present Neck: Neck: full ROM and no lymphadenopathy Resp: Effort & Inspection: normal respiratory effort and able to speak in complete sentences Auscultation: clear to auscultation bilaterally Cardio: Rhythm: abnormal rhythm GI: Auscultation: normal bowel sounds Skin: General skin exam: no rashes or lesions noted Neuro: General: patient oriented x3 Cranial nerves: Yes CN's II-XII intact bilaterally ( impaired hearing) Cognition (Neuro): normal cognition Speech: normal speech Gait exam (Neuro): Assisted gait required Motor exam (neuro): Abnormal motor strength present ( generally 4/5) Sensory Exam: Sensory deficit (Neuro) ( distally) Deep tendon reflexes (DTR's): Right triceps reflex intensity grade: 1+, Rt Biceps (C5, C6): 1+, Left biceps reflex intensity grade: 1+, Right brachioradialis reflex intensity grade: 1+, Left brachioradialis reflex intensity grade: 1+, Right patellar reflex intensity grade: 1+ and Left patellar reflex intensity grade: 1+ Coordination: [id number] test normal Psych: Speech and movement: Normal speech and movement present Affect: normal affect Attitude: cooperative Thought process: Normal thought process present Thought content: Yes Normal thought content present Insight: Good insight present (Psych) Judgement: Good judgement present (Psych) Objective Data Vital Signs Vital Signs: Vital Signs - 24 hr 11/27/20 14:00 11/27/20 20:00 11/27/20 21:50 Temperature 36.1 C L 36.3 C L Pulse Rate 89 63 Respiratory Rate 20 20 Blood Pressure 151/77 H 170/86 H Pulse Oximetry 99 99 98 11/28/20 06:00 11/28/20 08:23 Temperature 36.3 C L Pulse Rate 81 81 Respiratory Rate 18 Blood Pressure 135/72 Pulse Oximetry 100 Intake/Output Intake/Output: Intake & Output 11/25/20 11/26/20 11/27/20 11/28/20 23:59 23:59 23:59 23:59 Intake Total 840 1200 1440 Balance 840 1200 1440 Meds/Results Medications: Active Medications Generic Name Dose Route Start Last Admin Trade Name Freq PRN Reason Stop Dose Admin Acetaminophen 1,000 mg 11/17/20 15:15 11/27/20 08:42 Acetaminophen 500 Mg Tablet PO 1,000 mg Q6H PRN Administration Mild Pain (1-3) or Fever Albuterol 2.5 mg 11/15/20 12:56 Albuterol Sulfate Neb 2.5 Mg/
--- NOTE | 2020-11-28 10:42 | PC.NURSE ---
contacted Dr. Heaton's office per Dr. Mooney's request -stump remains red with small amount serosanguinous drainage. keflex was ordered for one week on 11/19.
--- NOTE | 2020-11-28 12:05 | WPDPN ---
Progress Note: A&P Additional Plan Dehiscing left BKA stump at POD 24. Had taken a fall on POD 14. Plan is to discharge him to home in a few days. Will need Wound Care follow up to monitor and care for this stump. Consult placed today. Exam Narrative: Exam Narrative: Pt in planning stages for discharge. Middle 1/3 of stump is now dehisced. Remainder appears to be healing well. No cellulitis. Had been on some oral antibiotics for a week. No foul drainage or odor. Pt not currently a smoker. Objective Data Vital Signs Vital Signs: Vital Signs - 24 hr 11/27/20 14:00 11/27/20 20:00 11/27/20 21:50 Temperature 36.1 C L 36.3 C L Pulse Rate 89 63 Respiratory Rate 20 20 Blood Pressure 151/77 H 170/86 H Pulse Oximetry 99 99 98 11/28/20 06:00 11/28/20 08:00 11/28/20 08:23 Temperature 36.3 C L Pulse Rate 81 81 81 Respiratory Rate 18 18 Blood Pressure 135/72 Pulse Oximetry 100 100 Intake/Output Intake/Output: Intake & Output 11/25/20 11/26/20 11/27/20 11/28/20 23:59 23:59 23:59 23:59 Intake Total 840 1200 1440 600 Balance 840 1200 1440 600 Meds/Results Medications: Active Medications Generic Name Dose Route Start Last Admin Trade Name Freq PRN Reason Stop Dose Admin Acetaminophen 1,000 mg 11/17/20 15:15 11/27/20 08:42 Acetaminophen 500 Mg Tablet PO 1,000 mg Q6H PRN Administration Mild Pain (1-3) or Fever Albuterol 2.5 mg 11/15/20 12:56 Albuterol Sulfate Neb 2.5 Mg/3 Ml Inh INHALATION TID PRN Shortness Of Breath Alprazolam 1 mg 11/15/20 13:00 11/27/20 23:32 Alprazolam (*Crx) 0.5 Mg Tablet PO 1 mg TID PRN Administration Anxiety Aspirin 325 mg 11/16/20 09:00 11/28/20 08:23 Aspirin 325 Mg Enteric Tablet PO 325 mg QAM KALPESH Administration Cephalexin HCl 500 mg 11/19/20 10:45 11/28/20 08:23 Cephalexin 500 Mg Capsule PO 500 mg Q12HR KALPESH Administration Dextrose 12.5 gm 11/15/20 12:41 Dextrose 50% 25 Gm/50 Ml Syringe IV PUSH PRN PRN Hypoglycemia Protocol Diphenhydramine HCl 25 mg 11/15/20 13:01 11/26/20 08:59 Diphenhydramine Hcl Cap 25 Mg Capsule PO 25 mg Q6H PRN Administration Itching Docusate Sodium 100 mg 11/15/20 21:00 11/28/20 08:23 Docusate Sodium 100 Mg Capsule PO 100 mg Q12HR KALPESH Administration Folic Acid 1 mg 11/16/20 09:00 11/28/20 08:22 Folic Acid 1 Mg Tablet PO 1 mg DAILY KALPESH Administration Gabapentin 200 mg 11/15/20 13:00 11/28/20 08:23 Gabapentin 100 Mg Capsule PO 200 mg TID KALPESH Administration Glucagon 1 mg 11/15/20 12:41 Glucagon For Inj 1 Mg Vial IM PRN PRN Hypoglycemia Protocol Glucose 15 gm 11/15/20 12:41 Glucose Oral Gel 15 Gm Of Glucse In 37.5 Gm Tube PO PRN PRN Hypoglycemia Protocol Hydrocortisone 1 applic 11/15/20 21:00 11/28/20 08:24 Hydrocortisone 1% 30 Gm Cream TOPICAL 1 applic Q12HR KALPESH Administration Dextrose 1,000 mls @ 100 mls/hr 11/15/20 12:41 Dextrose 5% 1,000 Ml IVPB PRN PRN Hypoglycemia Protocol Ipratropium Plover 0.5 mg 11/15/20 13:02 Ipratropium Br 0.02% Inh Soln 0.5 Mg/2.5 Ml Vial INHALATION TIDRT PRN Shortness Of Breath Lactic Acid 1 applic 11/16/20 09:00 11/28/20 08:24 Lactic Acid 12% Lotion 225 Btl TOPICAL 1 applic QAM KALPESH Administration Magnesium Oxide 400 mg 11/16/20 09:00 11/28/20 08:23 Magnesium Oxide 400 Mg Tablet PO 400 mg QAM KALPESH Administration Metoprolol Tartrate 12.5 mg 11/28/20 09:00 11/28/20 08:23 Metoprolol Tartrate 12.5 Mg Tablet PO 12.5 mg Q12HR KALPESH Administration Multivitamins Therapeutic 1 tablet 11/16/20 09:00 11/28/20 08:22 Multivitamins Therapeutic Tab (*Bkc) PO 1 tablet QAM KALPESH Administration Ondansetron HCl 4 mg 11/15/20 13:04 Ondansetron Hcl Odt 4 Mg Tablet PO Q6H PRN Nausea And Vomiting Pantoprazole Sodium 40 mg 11/15/20 21:00 02
--- NOTE | 2020-11-28 17:57 | PM.IMPN ---
Progress Note: A&P Assessment and Plan (1) Atrial fibrillation with slow ventricular response: Code(s): I48.91 - Unspecified atrial fibrillation Status: Acute Assessment and Plan: 11/28/20 17:57 Ludin Mcguire is a 74 year old male male with history of chronic atrial fibrillation and significant AV nod dysfunction and history of bradycardia initially patient was seen by technician chemical cleaning when the patient was on the medical floor developed bradycardia and plan was to hold the beta-wily however it was continued while in TRC he remained stable and rate was controlled however last night patient heart rate dropped to 28 and outside sales associate was called and metoprolol 25 mg b.i.d. was stopped and now is heart rate is trending up, patient has no complaint of chest pain shortness of breath palpitation or dizziness he has been able to participate in his physical therapy and there is a plan to discharge patient home tomorrow however we will decrease patient's metoprolol to 12.5 mg b.i.d. and monitor patient overnight if remains clinically stable will discharge, thank you for consulting us for medical management of this patient, will follow the patient with you, if have any question please feel free to call us. 11/28 we held metoprolol yesterday patient heart rate trending a today we have resumed metoprolol at 12.5 mg b.i.d. compared 25 mg b.i.d., continue to monitor patient, patient has no complaint chest pain shortness of breath palpitation or dizziness, will continue to monitor patient 1 more day if remains clinically stable will discharge him tomorrow Subjective Date/time seen: 11/28/20 17:57 Ludin Mcguire is a 74 year old male male with history of chronic atrial fibrillation and significant AV nod dysfunction and history of bradycardia initially patient was seen by technician chemical cleaning when the patient was on the medical floor developed bradycardia and plan was to hold the beta-wily however it was continued while in TRC he remained stable and rate was controlled however last night patient heart rate dropped to 28 and outside sales associate was called and metoprolol 25 mg b.i.d. was stopped and now is heart rate is trending up, patient has no complaint of chest pain shortness of breath palpitation or dizziness he has been able to participate in his physical therapy and there is a plan to discharge patient home tomorrow however we will decrease patient's metoprolol to 12.5 mg b.i.d. and monitor patient overnight if remains clinically stable will discharge, thank you for consulting us for medical management of this patient, will follow the patient with you, if have any question please feel free to call us. 11/28 we held metoprolol yesterday patient heart rate trending a today we have resumed metoprolol at 12.5 mg b.i.d. compared 25 mg b.i.d., continue to monitor patient, patient has no complaint chest pain shortness of breath palpitation or dizziness, will continue to monitor patient 1 more day if remains clinically stable will discharge him tomorrow Review of Systems Review of Systems: All systems reviewed & are unremarkable except as noted in HPI and below Exam Narrative: Exam Narrative: Patient is comfortable, NAD HEENT: eyes are clear and none icteric LUNGS:CTA HEART: Irregularly irregular ABD: BS+, Soft and nontender Lower extremities: no edema MS: left BKA SKIN: nonjaundiced Neuro: grossly intact. Objective Data Vital Signs Vital Signs: Vital Signs - 24 hr 11/27/20 20:00 11/27/20 21:50 11/28/20 06:00 Temperature 97.4 F L 97.3 F L Pulse Rate 63 81 Respiratory Rate 20 18 Blood Pressure 170/86 H 135/72 Pulse Oximetry 99 98 100 11/28/20 08:00 11/28/20 08:23 11/28/20 14:00 Temperature 97.8 F Pulse Rate 81 81 70 Respiratory Rate 18 18 Blood Pressure 150/85 H Pulse Oximetry 100 96 11/28/20 14:46 Temperature 97.8 F Pulse Rate 70 Respiratory Rate 18 Blood Pressure 150/85 H Pulse Oximetry 96 Intake/Output Intake/Output
[2020-11-28] MEDS: ACETAMINOPHEN 500 MG TABLET 1000 MG PO (20:24)
[2020-11-28] MEDS: ALPRAZolam (*CRX) 0.5 MG TABLET 1 MG PO (23:53)
[2020-11-28] MEDS: diphenhydrAMINE HCl CAP 25 MG CAPSULE PO (23:53)
[2020-11-29] VITALS (9 sets, daily range): BP systolic 124–181; BP diastolic 65–89; PULSE 60–72; RESP 18–20; TEMP 35.9–36.3; O2SAT 94–99
[2020-11-29] MEDS: traMADol HCL (*CRX) 50 MG TABLET PO ×3 (05:27→17:00)
[2020-11-29 06:37] LABS: Glucose Point of Care 98 (65-105)
[2020-11-29] MEDS: DOCUSATE SODIUM 100 MG CAPSULE PO ×2 (09:33→20:23)
[2020-11-29] MEDS: CEPHALEXIN 500 MG CAPSULE PO (09:33)
[2020-11-29] MEDS: ASPIRIN 325 MG ENTERIC TABLET PO (09:33)
[2020-11-29] MEDS: PANTOPRAZOLE 40 MG TABLET PO ×2 (09:33→20:24)
[2020-11-29] MEDS: FOLIC ACID 1 MG TABLET PO (09:33)
[2020-11-29] MEDS: METOPROLOL TARTRATE 12.5 MG TABLET PO ×2 (09:34→20:23)
[2020-11-29] MEDS: predniSONE 2.5 MG TABLET PO (09:36)
[2020-11-29] MEDS: GABAPENTIN 100 MG CAPSULE 200 MG PO ×3 (09:37→17:00)
[2020-11-29] MEDS: MULTIVITAMINS THERAPEUTIC TAB (*BKC) 1 TABLET PO (09:37)
[2020-11-29] MEDS: MAGNESIUM OXIDE 400 MG TABLET PO (09:38)
[2020-11-29] MEDS: SIMVASTATIN 10 MG TABLET PO (09:38)
[2020-11-29] MEDS: SERTRALINE HCL 50 MG TABLET PO (09:38)
[2020-11-29] MEDS: HYDROCORTISONE 1% 30 GM CREAM 1 APPLIC TOPICAL ×2 (09:39→20:24)
[2020-11-29] MEDS: LACTIC ACID 12% LOTION 225 BTL 1 APPLIC TOPICAL (09:40)
[2020-11-29] MEDS: SILVERGEL (ELTA) 45 ML 1 APPLIC TOPICAL (09:40)
--- NOTE | 2020-11-29 10:15 | WPDNEURORHBP ---
Subjective Date/time seen: 11/29/20 10:15 74 years old with history of chronic atrial fibrillation and significant AV abimbola dysfunction in addition to the history of bradycardia has been evaluated by the hydraulic hammer operator's. His exam was withheld because of the bradycardia when the metoprolol was decreased to12.5mg twice a day, his blood pressure is 154/68 in supine position temp 36.2? pulse 64 respiration 18 and pulse ox 97 on room air. He is being disc charged tomorrow family meeting was carried out some family member had the question regarding the need for the follow-up with the hydraulic hammer operator because of the readjustment of the metoprolol the hospital will follow him today and further adjustment and discussion will be made Dr. Heaton has seen him his wound has been been almost 1/3 dehisced is no signs of infection present Opal cast discharge he will need the home health with physical therapy occupational therapy and nursing visit most recently has walk 16ft Review of Systems Review of Systems: All systems reviewed & are unremarkable except as noted in HPI and below Functional Status Ambulation Ability Ability to Ambulate 10 Feet: Minimum Assistance X 1 Ambulation Assistive Devices: Walker, Wheeled Exam Const: General: cooperative, comfortable and no acute distress Nutritional Appearance: average body habitus and thin Orientation/consciousness: patient oriented x3 Limitations: physical limitations ( left [id number] amputee along with the right foot partial amputation a) HENMT: Head: normocephalic Ears: hearing grossly normal bilaterally General nose exam: Normal external nose present and No nasal discharge present Eyes: General: appearance normal, both eyes and all related structures Neck: Neck: full ROM Resp: Effort & Inspection: normal respiratory effort Auscultation: clear to auscultation bilaterally Cardio: Jugular venous distension: no JVD Rate: regular rate Rhythm: regular rhythm GI: Auscultation: normal bowel sounds Skin: General skin exam: no rashes or lesions noted Wounds: amputation site ( clean with no signs of infection though the wound has dehisced.) Neuro: General: patient oriented x3 Cranial nerves: Yes CN's II-XII intact bilaterally Cognition (Neuro): normal cognition Speech: normal speech Gait exam (Neuro): Assisted gait required Motor exam (neuro): 5/5 motor strength present throughout ( generally 4/5) Sensory Exam: Sensory deficit (Neuro) Deep tendon reflexes (DTR's): Right triceps reflex intensity grade: 1+, Left triceps reflex intensity grade: 1+, Rt Biceps (C5, C6): 1+, Left biceps reflex intensity grade: 1+, Right brachioradialis reflex intensity grade: 1+, Left brachioradialis reflex intensity grade: 1+, Right patellar reflex intensity grade: 1+ and Left patellar reflex intensity grade: 1+ Psych: Appearance: grossly normal Objective Data Vital Signs Vital Signs: Vital Signs - 24 hr 11/28/20 14:00 11/28/20 14:46 11/28/20 20:00 Temperature 36.6 C 36.6 C Pulse Rate 70 70 62 Respiratory Rate 18 18 18 Blood Pressure 150/85 H 150/85 H Pulse Oximetry 96 96 96 11/28/20 20:25 11/28/20 22:00 11/29/20 00:54 Temperature 36.6 C 36.3 C L Pulse Rate 62 71 70 Respiratory Rate 16 18 Blood Pressure 156/99 H 147/89 H Pulse Oximetry 100 94 11/29/20 05:45 11/29/20 09:34 Temperature 36.2 C L Pulse Rate 62 64 Respiratory Rate 18 Blood Pressure 154/68 H Pulse Oximetry 97 Intake/Output Intake/Output: Intake & Output 11/26/20 11/27/20 11/28/20 11/29/20 23:59 23:59 23:59 23:59 Intake Total 1200 1440 1800 Balance 1200 1440 1800 Meds/Results Medications: Active Medications Generic Name Dose Route Start Last Admin Trade Name Freq PRN Reason Stop Dose Admin Acetaminophen 1,000 mg 11/17/20 15:15 11/28/20 20:24 Acetaminophen 500 Mg Tablet PO 1,000 mg Q6H PRN Administration Mild Pain (1-3) or Fever Albuterol 2.5 mg 11/15/20 12:56 Albuterol Sulfate Neb
[2020-11-29 12:04] LABS: Basophils Absolute Auto 0.1 K/mm3 (0.0-0.1); Basophils Percent Auto 0.5 % (0.2-1.2); Eosinophils Absolute Auto 0.3 K/mm3 (0-0.3); Eosinophils Percent Auto 3.5 % (0-4.4); Hematocrit 36.6 % (42.0-52.0); Hemoglobin 10.8 g/dL (14.0-18.0); Immature Granulocyte Absolute 0.06 K/mm3 (0.00-0.031); Immature Granulocyte Percent A 0.7 % (0-0.5); Lymphocytes Absolute Auto 1.44 K/mm3 (0.9-3.2); Lymphocytes Percent Auto 15.7 % (18.3-44.2); Mean Corpuscular HGB Conc 29.5 g/dl (32-36); Mean Corpuscular Hemoglobin 24.4 pg (26-34); Mean Corpuscular Volume 82.8 fl (80-100); Mean Platelet Volume 9.8 fl (7.4-10.4); Monocytes Absolute Auto 0.8 K/mm3 (0.1-0.6); Monocytes Percent Auto 8.5 % (2.6-8.5); Neutrophils Absolute Auto 6.5 K/mm3 (1.3-6.7); Neutrophils Percent Auto 71.1 % (45.5-73.1); Platelet Count Result 283 k/mm3 (150-375); Red Blood Count 4.42 M/mm3 (4.6-6.20); Red Cell Distribution Width 14.3 % (11.5-14.5); White Blood Count 9.2 K/mm3 (4.5-10.0)
[2020-11-29 12:19] LABS: Alanine Aminotransferase 13 U/L (4-50); Albumin Level 3.7 g/dL (3.5-5.1); Alkaline Phosphatase 104 U/L (38-126); Anion Gap 8 mmol/L (8-16); Aspartate Amino Transferase 28 U/L (17-59); Bilirubin,Total 0.3 mg/dL (0.2-1.3); Blood Urea Nitrogen 32 mg/dL (9-20); Calcium 8.6 mg/dL (8.4-10.2); Carbon Dioxide 25 mmol/L (22-30); Chloride 103 mmol/L (98-107); Estimated CRCL calculation 52 ml/min; Estimated Glomerular Filt Rate 59; Glucose 141 mg/dL (75-110); Potassium 4.3 mmol/L (3.4-5.0); Sodium 136 mmol/L (137-145)
[2020-11-29 12:36] LABS: Hypochromasia 1+ (NORMAL); Ovalocytes 1+ (NORMAL); Platelet Estimate Adequate (Adequate)
[2020-11-29 16:18] LABS: Glucose Point of Care 196 (65-105)
--- NOTE | 2020-11-29 17:23 | PM.IMPN ---
Progress Note: A&P Assessment and Plan (1) Atrial fibrillation with slow ventricular response: Code(s): I48.91 - Unspecified atrial fibrillation Status: Acute Assessment and Plan: 11/29/20 17:23 Ludin Mcguire is a 74 year old male male with history of chronic atrial fibrillation and significant AV nod dysfunction and history of bradycardia initially patient was seen by hydraulic technician when the patient was on the medical floor developed bradycardia and plan was to hold the beta-wily however it was continued while in [facility] he remained stable and rate was controlled however last night patient heart rate dropped to 28 and collision repair technician was called and metoprolol 25 mg b.i.d. was stopped and now is heart rate is trending up, patient has no complaint of chest pain shortness of breath palpitation or dizziness he has been able to participate in his physical therapy and there is a plan to discharge patient home tomorrow however we will decrease patient's metoprolol to 12.5 mg b.i.d. and monitor patient overnight if remains clinically stable will discharge, thank you for consulting us for medical management of this patient, will follow the patient with you, if have any question please feel free to call us. 11/28 we held metoprolol yesterday patient heart rate trending a today we have resumed metoprolol at 12.5 mg b.i.d. compared 25 mg b.i.d., continue to monitor patient, patient has no complaint chest pain shortness of breath palpitation or dizziness, will continue to monitor patient 1 more day if remains clinically stable. 11/29 patient was started on metoprolol 12.5 mg b.i.d. he remains clinically stable,his heart rate close to target however blood pressure is slightly elevated, patient has no complaint of chest pain shortness of breath palpitation, patient is participating with physical therapy, will monitor patient 1 more day and discharge him tomorrow Subjective Date/time seen: 11/29/20 17:23 Ludin Mcguire is a 74 year old male male with history of chronic atrial fibrillation and significant AV nod dysfunction and history of bradycardia initially patient was seen by hydraulic technician when the patient was on the medical floor developed bradycardia and plan was to hold the beta-wily however it was continued while in [facility] he remained stable and rate was controlled however last night patient heart rate dropped to 28 and collision repair technician was called and metoprolol 25 mg b.i.d. was stopped and now is heart rate is trending up, patient has no complaint of chest pain shortness of breath palpitation or dizziness he has been able to participate in his physical therapy and there is a plan to discharge patient home tomorrow however we will decrease patient's metoprolol to 12.5 mg b.i.d. and monitor patient overnight if remains clinically stable will discharge, thank you for consulting us for medical management of this patient, will follow the patient with you, if have any question please feel free to call us. 11/28 we held metoprolol yesterday patient heart rate trending a today we have resumed metoprolol at 12.5 mg b.i.d. compared 25 mg b.i.d., continue to monitor patient, patient has no complaint chest pain shortness of breath palpitation or dizziness, will continue to monitor patient 1 more day if remains clinically stable. 11/29 patient was started on metoprolol 12.5 mg b.i.d. he remains clinically stable, his heart rate close to target however blood pressure is slightly elevated, patient has no complaint of chest pain shortness of breath palpitation, patient is participating with physical therapy, will monitor patient 1 more day and discharge him tomorrow Review of Systems Review of Systems: All systems reviewed & are unremarkable except as noted in HPI and below Exam Narrative: Exam Narrative: Patient is comfortable, NAD HEENT: eyes are clear and none icteric LUNGS:CTA HEART: Irregularly irregular ABD: BS+, Soft and nontender Lower extremities: no edema
[2020-11-29] MEDS: ALPRAZolam (*CRX) 0.5 MG TABLET 1 MG PO (23:32)
[2020-11-30] MEDS: traMADol HCL (*CRX) 50 MG TABLET PO ×3 (00:16→12:16)
[2020-11-30 04:51] LABS: Basophils Absolute Auto 0.1 K/mm3 (0.0-0.1); Basophils Percent Auto 0.6 % (0.2-1.2); Eosinophils Absolute Auto 0.3 K/mm3 (0-0.3); Eosinophils Percent Auto 3.9 % (0-4.4); Hematocrit 35.2 % (42.0-52.0); Hemoglobin 10.4 g/dL (14.0-18.0); Immature Granulocyte Absolute 0.04 K/mm3 (0.00-0.031); Immature Granulocyte Percent A 0.5 % (0-0.5); Lymphocytes Absolute Auto 1.81 K/mm3 (0.9-3.2); Lymphocytes Percent Auto 22.8 % (18.3-44.2); Mean Corpuscular HGB Conc 29.5 g/dl (32-36); Mean Corpuscular Hemoglobin 24.6 pg (26-34); Mean Corpuscular Volume 83.2 fl (80-100); Mean Platelet Volume 9.5 fl (7.4-10.4); Monocytes Absolute Auto 0.9 K/mm3 (0.1-0.6); Monocytes Percent Auto 10.7 % (2.6-8.5); Neutrophils Absolute Auto 4.9 K/mm3 (1.3-6.7); Neutrophils Percent Auto 61.5 % (45.5-73.1); Platelet Count Result 278 k/mm3 (150-375); Red Blood Count 4.23 M/mm3 (4.6-6.20); Red Cell Distribution Width 14.4 % (11.5-14.5); White Blood Count 7.9 K/mm3 (4.5-10.0)
[2020-11-30 05:14] LABS: Anion Gap 5 mmol/L (8-16); Blood Urea Nitrogen 38 mg/dL (9-20); Calcium 8.5 mg/dL (8.4-10.2); Carbon Dioxide 30 mmol/L (22-30); Chloride 102 mmol/L (98-107); Estimated CRCL calculation 48 ml/min; Estimated Glomerular Filt Rate 54; Glucose 131 mg/dL (75-110); Potassium 4.4 mmol/L (3.4-5.0); Sodium 137 mmol/L (137-145)
[2020-11-30 05:51] VITALS: BP 138/64; PULSE 52; RESP 18; TEMP 35.8; O2SAT 97
[2020-11-30 05:52] VITALS: PULSE 50
[2020-11-30 06:51] LABS: Glucose Point of Care 86 (65-105)
[2020-11-30] MEDS: SERTRALINE HCL 50 MG TABLET PO (08:56)
[2020-11-30] MEDS: predniSONE 2.5 MG TABLET PO (08:56)
[2020-11-30] MEDS: SIMVASTATIN 10 MG TABLET PO (08:56)
[2020-11-30] MEDS: GABAPENTIN 100 MG CAPSULE 200 MG PO ×2 (08:56→12:16)
[2020-11-30] MEDS: PANTOPRAZOLE 40 MG TABLET PO (08:56)
[2020-11-30 08:57] VITALS: PULSE 64
[2020-11-30] MEDS: MULTIVITAMINS THERAPEUTIC TAB (*BKC) 1 TABLET PO (08:57)
[2020-11-30] MEDS: FOLIC ACID 1 MG TABLET PO (08:57)
[2020-11-30] MEDS: ASPIRIN 325 MG ENTERIC TABLET PO (08:57)
[2020-11-30] MEDS: METOPROLOL TARTRATE 12.5 MG TABLET PO (08:57)
[2020-11-30] MEDS: MAGNESIUM OXIDE 400 MG TABLET PO (08:57)
[2020-11-30] MEDS: DOCUSATE SODIUM 100 MG CAPSULE PO (08:58)
[2020-11-30] MEDS: SILVERGEL (ELTA) 45 ML 1 APPLIC TOPICAL (08:58)
[2020-11-30] MEDS: LACTIC ACID 12% LOTION 225 BTL 1 APPLIC TOPICAL (08:58)
[2020-11-30] MEDS: HYDROCORTISONE 1% 30 GM CREAM 1 APPLIC TOPICAL (08:58)
--- NOTE | 2020-11-30 10:57 | PCDIET ---
Nutrition Follow-Up Complete: Nutrition Diagnosis: Increased protein needs related to wound healing as evidenced by recent BKA. Nutrition Goal: Patient to consume 75% of meals/supplements or greater. Goal met. Patient consuming 100% of meals on heart healthy diet with Abimael BID. Recommend adding carbohydrate controlled diet for optimal glucose control. Plan for discharge today noted. Last recorded weight is 75.387 kg. Recommend obtaining new weight. Bowel Motility: +BM on 11/29/20. Labs Reviewed: Hgb (10.4), Hct (35.2), Glu (131), BUN (38) Meds Noted: Colace, Mag-Ox, Zocor, Folic Acid, Lopressor, Atrovent, MVI, Protonix, Prednisone Additional Notes: No pressure ulcers. Nutrition Monitoring and Evaluation: Follow up in 7 days.
--- NOTE | 2020-11-30 11:21 | PM.IMPN ---
Progress Note: A&P Assessment and Plan (1) Atrial fibrillation with slow ventricular response: Code(s): I48.91 - Unspecified atrial fibrillation Status: Acute Assessment and Plan: 11/30/20 11:21 Ludin Mcguire is a 74 year old male male with history of chronic atrial fibrillation and significant AV nod dysfunction and history of bradycardia initially patient was seen by hydramatic mechanic when the patient was on the medical floor developed bradycardia and plan was to hold the beta-wily however it was continued while in [facility] he remained stable and rate was controlled however last night patient heart rate dropped to 28 and deli worker was called and metoprolol 25 mg b.i.d. was stopped and now is heart rate is trending up, patient has no complaint of chest pain shortness of breath palpitation or dizziness he has been able to participate in his physical therapy and there is a plan to discharge patient home tomorrow however we will decrease patient's metoprolol to 12.5 mg b.i.d. and monitor patient overnight if remains clinically stable will discharge, thank you for consulting us for medical management of this patient, will follow the patient with you, if have any question please feel free to call us. 11/28 we held metoprolol yesterday patient heart rate trending a today we have resumed metoprolol at 12.5 mg b.i.d. compared 25 mg b.i.d., continue to monitor patient, patient has no complaint chest pain shortness of breath palpitation or dizziness, will continue to monitor patient 1 more day if remains clinically stable. 11/29 patient was started on metoprolol 12.5 mg b.i.d. he remains clinically stable,his heart rate close to target however blood pressure is slightly elevated, patient has no complaint of chest pain shortness of breath palpitation, patient is participating with physical therapy, will monitor patient 1 more day and discharge him tomorrow. 11/30 patient was continued on metoprolol 12.5 mg b.i.d. he remains clinically stable his heart rate is close to normal with blood pressure is at baseline, he has no complaint of chest, palpitation, or dizzy, his clinically stable he will be discharged home on current dose of metoprolol, will sign off today Subjective Date/time seen: 11/30/20 11:21 Ludin Mcguire is a 74 year old male male with history of chronic atrial fibrillation and significant AV nod dysfunction and history of bradycardia initially patient was seen by hydramatic mechanic when the patient was on the medical floor developed bradycardia and plan was to hold the beta-wiyl however it was continued while in [facility] he remained stable and rate was controlled however last night patient heart rate dropped to 28 and deli worker was called and metoprolol 25 mg b.i.d. was stopped and now is heart rate is trending up, patient has no complaint of chest pain shortness of breath palpitation or dizziness he has been able to participate in his physical therapy and there is a plan to discharge patient home tomorrow however we will decrease patient's metoprolol to 12.5 mg b.i.d. and monitor patient overnight if remains clinically stable will discharge, thank you for consulting us for medical management of this patient, will follow the patient with you, if have any question please feel free to call us. 11/28 we held metoprolol yesterday patient heart rate trending a today we have resumed metoprolol at 12.5 mg b.i.d. compared 25 mg b.i.d., continue to monitor patient, patient has no complaint chest pain shortness of breath palpitation or dizziness, will continue to monitor patient 1 more day if remains clinically stable. 11/29 patient was started on metoprolol 12.5 mg b.i.d. he remains clinically stable,his heart rate close to target however blood pressure is slightly elevated, patient has no complaint of chest pain shortness of breath palpitation, patient is participating with physical therapy, will monitor patient 1 more day and discharge him tomorrow. 11/30 sandip
--- NOTE | 2021-01-31 11:48 | PM.DS ---
DS: Summary Time Spent with Patient Time attestation: Total time spent providing and/or coordinating discharge services: Discharge Plan Discharge Attending physician on discharge: Luther Mooney Consulting providers: Ravin Heaton ; Ayo Foy ; Yahir Lopez Discharging Clinician: Luther Mooney Patient Disposition: Home Health Service Activity: no driving and as tolerated Diet: diabetic Wound Care Instructions: change dressing daily and other - see discharge instructions Discharge Instructions: WOUND CARE APPOINTMENT Patient will have appointment at the [facility] wound center on Monday December 07, 2020 at 9:30am. You need to arrive to the hospital 30 minutes before your appointment as you must register. Registration is located in the main lobby of Hospital Entrance 1. Once you are registered, the wound center is located on the 2nd floor. For any questions regarding appointment please call [phone] Per Care Coordination: Home Health has been arranged through [facility]. [facility] can be contacted at [phone]. Wound care-apply Silvergel to incision, cover xeroform and abd, wrap in kurlex and secure with acewrap daily and as needed. Patient Instructions: Antibiotic Form Stand Alone Forms: General Discharge Information Follow-up/Referrals: Cardiology [Other] (Follow-up with cardiology upon discharge fro general health maintenance and well being.) Ravin Heaton MD [Physician] - Other (Follow up 1 week after discharge from [facility]. Call for an appointment. [place] will be removed at post discharge appointment.) Discharge Medications: New metoprolol tartrate 25 mg Tablet 12.5 mg PO BID Qty: 30 RF: 0 Continued simvastatin 10 mg tablet 10 mg PO DAILY Qty: 90 RF: 1 magnesium oxide 400 mg (241.3 mg magnesium) Tablet 400 mg PO QAM 30 Days Qty: 30 RF: 0 prednisone 2.5 mg tablet 2.5 mg PO DAILY Qty: 30 RF: 0 docusate sodium [Colace] 100 mg Capsule 100 mg PO DAILY Qty: 30 RF: 0 omeprazole 20 mg capsule,delayed release(DR/EC) 40 mg PO BID Qty: 60 RF: 1 gabapentin 100 mg Capsule 200 mg PO TID 30 Days Qty: 180 RF: 0 sertraline 50 mg tablet 50 mg PO DAILY Qty: 90 RF: 1 Spiriva with HandiHaler 18 mcg capsule, w/inhalation device 1 cap inhalation DAILY Qty: 90 RF: 3 Discontinued albuterol sulfate 2.5 mg /3 mL (0.083 %) solution for nebulization See Rx Instructions .ROUTE .COMPLEX Qty: 810 RF: 1 multivitamin [Daily Multi-Vitamin] Tablet 1 tablet PO DAILY RF: 0 diphenhydramine HCl 25 mg Capsule 25 mg PO Q6H PRN (Reason: Itching) Qty: 1 RF: 0 insulin aspart U-100 [Novolog U-100 Insulin aspart] 100 unit/mL Solution 2 - 5 unit subcut TIDWM Qty: 10 RF: 0 dextrose [Glutose-15] 40 % Gel 15 g PO PRN PRN (Reason: Hypoglycemia) Qty: 12.5 RF: 0 Lac-Hydrin Five 5 % Lotion 1 applic topical QAM 30 Days RF: 0 metoprolol tartrate 25 mg Tablet 25 mg PO Q12HR 30 Days Qty: 60 RF: 0 ondansetron HCl (PF) 4 mg/2 mL Solution 4 mg IVPUSH ONCE PRN (Reason: Nausea) Qty: 2 RF: 0 sodium chloride [Saline Mist] 0.65 % Aerosol,[place] 1 spray intranasal Q6HR PRN (Reason: Congestion) 30 Days RF: 0 aspirin 325 mg tablet,delayed release (DR/EC) See Rx Instructions .ROUTE .COMPLEX Qty: 90 RF: 3 ipratropium-albuterol 0.5 mg-3 mg(2.5 mg base)/3 mL solution for nebulization See Rx Instructions .ROUTE .COMPLEX Qty: 270 RF: 3 folic acid 1 mg tablet See Rx Instructions .ROUTE .COMPLEX Qty: 90 RF: 3 alprazolam [Xanax] 1 mg tablet 1 mg PO TID PRN (Reason: anxiety) Qty: 90 RF: 3 No Action amlodipine 10 mg Tablet 10 mg PO DAILY RF: 0 acetaminophen 500 mg tablet 1,000 mg PO Q6-8H PRN (Reason: Mild Pain (1-3) Or Fever) RF: 0 aspirin 325 mg tablet,delayed release (DR/EC) 325 mg PO DAILY RF: 0 folic acid 1 mg tablet 1 mg PO DAILY RF: 0 Date of admission:
--- NOTE | 2021-01-31 11:53 | PM.TDS ---
Transfer Discharge Sum: Prov Provider Date of admission: 11/15/20 11:44 Primary care physician: Master Colbert MD Admitting clinician: Luther Mooney MD Consults: 11/19/20 Consult to Physician Routine Comment: Consulting Provider: Yazan Agustin Reason for consultation: low pulse Has provider been notified: Yes 11/28/20 Consult to Home Health Routine Reason for Consult:: Occupational Therapy Physicial Therary RN/[facility] Wound/ET Consult Routine Reason for Consult:: Please see for left BKA stump dehiscence. Will need out patient follow-up. Thanks DS: Admitting Diagnosis Admitting Diagnosis Admitting Diagnosis: left BKA Transfer Discharge Sum: Med Medications Active and Home Medications: Home Medications Spiriva with HandiHaler 1 cap INHALATION DAILY #90 inh 11/30/20 [Rx Confirmed 12/02/20] docusate sodium [Colace] 100 mg PO DAILY #30 cap 11/30/20 [Rx Confirmed 12/02/20] gabapentin 200 mg PO TID 30 Days #180 cap 11/30/20 [Rx Confirmed 12/02/20] magnesium oxide 400 mg PO QAM 30 Days #30 tablet 11/30/20 [Rx Confirmed 12/02/20] metoprolol tartrate 12.5 mg PO BID #30 tablet 11/30/20 [Rx Confirmed 12/02/20] omeprazole 40 mg PO BID #60 cap 11/30/20 [Rx Confirmed 12/02/20] prednisone 2.5 mg PO DAILY #30 tablet 11/30/20 [Rx Confirmed 12/02/20] sertraline 50 mg PO DAILY #90 tablet 11/30/20 [Rx Confirmed 12/02/20] simvastatin 10 mg PO DAILY #90 tablet 11/30/20 [Rx Confirmed 12/02/20] amlodipine 10 mg PO DAILY 12/01/20 [History Confirmed 12/02/20] acetaminophen 1,000 mg PO Q6-8H PRN 12/02/20 [History Confirmed 12/02/20] aspirin 325 mg PO DAILY 12/02/20 [History Confirmed 12/02/20] folic acid 1 mg PO DAILY 12/02/20 [History Confirmed 12/02/20] Transfer Discharge Sum: Hosp Hospital Course Hospital course: Ludin Mcguire is a 75 year old male transferred to observation. Time Spent with Patient Time attestation: Total time spent providing and/or coordinating transfer services:
== END 2020-11-30 14:12 | disposition home health service (06) | DRG 560 ==
PROVIDERS: Admitting Provider Psychiatry & Neurology Neurology; PCP Emergency Medicine; Visit Provider Psychiatry & Neurology Neurology
DX: Z47.81 Encounter for orthopedic aftercare following surgical amputation (principal); J96.11 Chronic respiratory failure with hypoxia; I50.22 Chronic systolic (congestive) heart failure; Z89.512 Acquired absence of left leg below knee; I11.0 Hypertensive heart disease with heart failure; R00.1 Bradycardia, unspecified; T87.81 Dehiscence of amputation stump; D64.9 Anemia, unspecified; E11.42 Type 2 diabetes mellitus with diabetic polyneuropathy; E78.5 Hyperlipidemia, unspecified; F32.9 Major depressive disorder, single episode, unspecified; F10.10 Alcohol abuse, uncomplicated; I48.91 Unspecified atrial fibrillation; J44.9 Chronic obstructive pulmonary disease, unspecified; K21.9 Gastro-esophageal reflux disease without esophagitis; N40.0 Benign prostatic hyperplasia without lower urinary tract symptoms; R29.6 Repeated falls; Z87.891 Personal history of nicotine dependence; Z99.81 Dependence on supplemental oxygen; Z96.651 Presence of right artificial knee joint; Z86.73 Personal history of transient ischemic attack (TIA), and cerebral infarction without residual deficits; Z79.4 Long term (current) use of insulin
CPT/HCPCS: 36415; 80048; 80053; 82948; 85025; 93005; 97110; 97116; 97162; 97166; 97530; 97535; 97542; A9270

== ENCOUNTER 2020-12-01 18:35 | Observation (INO) | payer MEDICARE, MEDICAID, SELFPAY ==
--- NOTE | ~2020-12-01 | XR_ITS ---
XR knee LT 3V 12/01/2020 20:39 Indication: Left knee pain after fall Procedure: 4 views left knee Comparison: No prior studies for comparison. Findings: No fracture or traumatic malalignment. Status post amputation at the proximal tibia and fib nano. There are surgical clips overlying the surgical stump. No foreign bodies otherwise noted. No lissette nt effusion. Impression: 1: No acute bone or joint abnormality. Reviewed, dictated and finalized at location A. SERVICE HELPER Impression: 1: No acute bone or joint abnormality.
[2020-12-01 18:40] VITALS: BP 139/101; PULSE 71; RESP 18; TEMP 36.2; O2SAT 98
--- NOTE | 2020-12-01 20:23 | ED.FALL ---
HPI - Fall General Chief Complaint: Fall Stated Complaint: Falls Time Seen by Provider: 12/01/20 19:57 Source: patient Mode of arrival: wheelchair Limitations: no limitations History of Present Illness HPI Narrative: Patient is a 74-year-old male complaining of pain in his left stump after he fell earlier today, states he has been falling home a lot due to being weak and cannot take care of himself at home. Patient lives at home alone.. Patient denies any head, neck, back, chest, abdomen or any other extremity pain/injury. Related Data Allergies Allergy/AdvReac Type Severity Reaction Status Date / Time niacin Allergy Intermediate Rash/itchin Verified 12/01/20 18:43 g hydrocodone [From [place]] AdvReac Confusion Verified 12/01/20 18:43 Review of Systems Review of Systems: All systems reviewed & are unremarkable except as noted in HPI and below Constitutional: Constitutional: Denies body ache(s), Denies chills, Denies excessive sweating, Denies fatigue, Denies fever(s), Denies headache(s), Denies lethargy, Denies malaise, Denies weakness and Denies weight loss Eyes: Eyes: Denies blurry vision, Denies change in vision and Denies loss of vision ENT: Denies dizziness, Denies ear discharge, Denies headache(s), Denies lip swelling, Denies epistaxis, Denies nasal congestion, Denies neck pain, Denies throat swelling and Denies tongue swelling Cardiovascular: Cardiovascular: Denies chest pain, Denies chest pain at rest, Denies chest pain with activity, Denies diaphoresis, Denies rapid heart rate, Denies edema, Denies irregular heart rhythm, Denies lightheadedness, Denies palpitations, Denies dyspnea and Denies dyspnea on exertion Respiratory: Respiratory: Denies chest congestion, Denies cough, Denies hemoptysis, Denies dyspnea and Denies dyspnea on exertion Gastrointestinal: Gastrointestinal: Denies abdominal pain, Denies melena, Denies hematochezia, Denies diarrhea, Denies nausea, Denies vomiting and Denies hematemesis Musculoskeletal: Musculoskeletal: Denies deformity, Denies neck pain and Denies numbness Neurologic: Denies Abnormal speech present, Denies abnormal gait, Denies confusion, Denies dizziness, Denies headache(s), Denies focal weakness, Denies loss of vision, Denies numbness, Denies Other visual disturbances, Denies Sensory deficit (Neuro) and Denies weakness Psychiatric: Psychiatric: Denies confusion, Denies depression, Denies auditory hallucinations, Denies homicidal ideation and Denies suicidal ideation Endocrine: Endocrine: Denies cold intolerance, Denies excessive sweating, Denies fatigue, Denies heat intolerance and Denies palpitations Hematologic/Lymphatic: Hematologic/Lymphatic: Denies easy bleeding and Denies easy bruising Allergic/Immunologic: Allergic/Immunologic: Denies lip swelling, Denies throat swelling and Denies tongue swelling [facility] Past Medical History Medical History Alcohol abuse Anxiety Asthma Benign prostatic hyperplasia Cerebrovascular accident Chronic anemia Chronic obstructive pulmonary disease Chronic respiratory failure with hypoxia, on home O2 therapy Depression Diabetic peripheral neuropathy Diastolic congestive heart failure Former smoker Gastroesophageal reflux disease Hearing loss Hypertension Ichthyosis vulgaris Irritable bowel syndrome Mixed hyperlipidemia Osteoarthritis Osteomyelitis History of osteomyelitis of both feet requiring multiple amputations. Persistent atrial fibrillation Not on long-term anticoagulation. Takes aspirin 325 mg daily. Sacrum and coccyx fracture Type 2 diabetes mellitus Diet-controlled. Hemoglobin A1c was 6.0 in June 2020. Surgical History Surgical History History of bilateral cataract extraction History of incision and drainage Right hip abscess. History of tonsillectomy History of total right hip arthroplasty (~2002) History
[2020-12-01 20:30] VITALS: BP 146/58; PULSE 78; RESP 15; O2SAT 96
[2020-12-01 20:38] LABS: Glucose Point of Care 95 (65-105)
--- NOTE | 2020-12-01 20:57 | PC.NURSE ---
Pt. requesting Pain medication
[2020-12-01 20:59] LABS: Basophils Percent Auto 0.4 % (0.2-1.2); Eosinophils Absolute Auto 0.2 K/mm3 (0-0.3); Eosinophils Percent Auto 1.9 % (0-4.4); Hematocrit 35.7 % (42.0-52.0); Hemoglobin 10.6 g/dL (14.0-18.0); Immature Granulocyte Absolute 0.04 K/mm3 (0.00-0.031); Immature Granulocyte Percent A 0.4 % (0-0.5); Lymphocytes Absolute Auto 1.31 K/mm3 (0.9-3.2); Lymphocytes Percent Auto 13.9 % (18.3-44.2); Mean Corpuscular HGB Conc 29.7 g/dl (32-36); Mean Corpuscular Hemoglobin 24.4 pg (26-34); Mean Corpuscular Volume 82.3 fl (80-100); Mean Platelet Volume 9.1 fl (7.4-10.4); Monocytes Absolute Auto 0.8 K/mm3 (0.1-0.6); Monocytes Percent Auto 8.1 % (2.6-8.5); Neutrophils Absolute Auto 7.1 K/mm3 (1.3-6.7); Neutrophils Percent Auto 75.3 % (45.5-73.1); Platelet Count Result 250 k/mm3 (150-375); Red Blood Count 4.34 M/mm3 (4.6-6.20); Red Cell Distribution Width 14.3 % (11.5-14.5); White Blood Count 9.4 K/mm3 (4.5-10.0)
--- NOTE | 2020-12-01 21:06 | PC.NURSE ---
Spoke w/ Pt. daughter Dalila, Updated her on Pt. status. Daughter states Pt. will not have anyone at home to take care of Pt. Daughter wishes that Pt. to be admitted to a skilled nursing.
[2020-12-01 21:10] LABS: Anion Gap 7 mmol/L (8-16); Blood Urea Nitrogen 33 mg/dL (9-20); Calcium 8.7 mg/dL (8.4-10.2); Carbon Dioxide 24 mmol/L (22-30); Chloride 106 mmol/L (98-107); Estimated CRCL calculation 39 ml/min; Estimated Glomerular Filt Rate 43; Glucose 100 mg/dL (75-110); Potassium 4.8 mmol/L (3.4-5.0); Sodium 137 mmol/L (137-145)
[2020-12-01 21:11] LABS: Hypochromasia 1+ (NORMAL); Platelet Estimate Adequate (Adequate)
[2020-12-01 21:30] VITALS: BP 154/85; PULSE 63; RESP 12; O2SAT 97
[2020-12-01] MEDS: ACETAMINOPHEN 500 MG TABLET 1000 MG PO (21:30)
[2020-12-01 22:30] VITALS: BP 144/88; PULSE 77; RESP 19; O2SAT 96
[2020-12-01 23:30] VITALS: BP 139/85; PULSE 79; RESP 17; O2SAT 97
[2020-12-01 23:41] LABS: Glucose Point of Care 146 (65-105)
--- NOTE | 2020-12-01 23:47 | ADMGEN ---
This patient, Ludin Mcguire, was admitted to Medical Room 255-01. Patient/family oriented to hospital policies and general routines including ID bracelet, bed and alarms, visiting hours, pain management, procedures, bathroom and other care routines, personal items, smoking policy, room service/diet, and visiting hours. Information on how to activate the Rapid Response Team has been discussed. Patient/Family are encouraged to report perceived risks to care and to ask questions if they do not understand what they are told or what they should do.
[2020-12-01 23:57] VITALS: BP 125/64; PULSE 58; RESP 18; TEMP 37.2; O2SAT 96; BMI 22.2
[2020-12-02] MEDS: LACTATED RINGERS 1,000 ML 100 ML IV CONT (00:57)
--- NOTE | 2020-12-02 05:29 | PM.IMHP ---
H&P: HPI History of Present Illness Date/Time: 12/02/20 05:29 Chief Complaint: Fall, pain in stump Narrative: Ludin Mcguire is a 74 year old male with a past medical history alcohol abuse, atrial fibrillation, chronic respiratory failure, diabetes, hypertension and peripheral vascular disease with recent left [id number] amputation 11/17/2020 due to osteomyelitis who presented to the ER for multiple falls. The patient reports that he was discharged from acute rehab 11/30/2020. He has been having multiple falls. He reports that his most recent fall was when he was transferring from his wheelchair to the toilet. When he attempted to transfer his right leg folded underneath him any landed hitting his stump on the floor. He reports pain in his stump rating 7/10 in intensity since this fall. X-ray performed in the ER did not demonstrate any evidence of fracture to the knee or stump. He had dehiscence of his wound following his below the knee amputation but he did not have any new dehiscence of the wound with his fall. He has been having a small amount of bloody drainage on his dressings but this is unchanged from baseline. He has not had any purulence drainage, fevers or increased swelling to his stump site. He reports he has not drank any alcohol since he was discharged from the hospital. He reports that he is weaker than he realized when he was discharged from acute rehab. He is now willing to go to a skilled placement for further rehab. He lives alone but was discharged with home health. Review of Systems Review of Systems: Narrative: 12 systems were reviewed with pertinent positives and negatives per HPI. Except as documented in the HPI, all other systems were reviewed and are negative. [facility] Past Medical History Medical History (Updated 12/02/20 @ 06:34 by Tracy Kowalski DO) Alcohol abuse Anxiety Asthma Benign prostatic hyperplasia Cerebrovascular accident Chronic anemia Chronic obstructive pulmonary disease Chronic respiratory failure with hypoxia, on home O2 therapy Depression Diabetic peripheral neuropathy Diastolic congestive heart failure Former smoker Gastroesophageal reflux disease Hearing loss Hypertension Ichthyosis vulgaris Irritable bowel syndrome Mixed hyperlipidemia Osteoarthritis Osteomyelitis History of osteomyelitis of both feet requiring multiple amputations. Persistent atrial fibrillation Not on long-term anticoagulation. Takes aspirin 325 mg daily. Sacrum and coccyx fracture Type 2 diabetes mellitus Diet-controlled. Hemoglobin A1c was 6.0 in June 2020. Surgical History Surgical History (Updated 12/02/20 @ 06:34 by Tracy Kowalski DO) History of bilateral cataract extraction History of incision and drainage Right hip abscess. History of left below knee amputation 11/17/[address] Heaton History of tonsillectomy History of total right hip arthroplasty (~2002) History of transmetatarsal amputation of left foot (~2019) History of transmetatarsal amputation of right foot (~2016) History of ventral hernia repair (~2006) Family History Family History Mother Patient's mother is , Onset Age: 31 Father Suicide Social History Social History Social History: The patient lives in [place] in an apartment. Client Project Coordinator comes for a few hours a day Saturday through Saturday. He gets Meals on wheels. Has continued to refuse assisted living and the like. He is . 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 Smoked a pack of cigarettes per day for 58 years and quit in December of 2018. He has a history of alcohol abuse although he says he is not drinking much anymore. No illicit substance use, he used marijuana previously. He designates his daughter, Adwoa Xiong, as his surrogate decision maker and he wishes to be a full code
[2020-12-02 05:53] VITALS: BP 146/84; PULSE 68; RESP 16; TEMP 36.7; O2SAT 98
[2020-12-02 08:17] LABS: Hematocrit 34.3 % (42.0-52.0); Hemoglobin 10.1 g/dL (14.0-18.0); Mean Corpuscular HGB Conc 29.4 g/dl (32-36); Mean Corpuscular Hemoglobin 23.8 pg (26-34); Mean Corpuscular Volume 80.9 fl (80-100); Mean Platelet Volume 9.6 fl (7.4-10.4); Platelet Count Result 242 k/mm3 (150-375); Red Blood Count 4.24 M/mm3 (4.6-6.20); Red Cell Distribution Width 14.4 % (11.5-14.5); White Blood Count 7.2 K/mm3 (4.5-10.0)
[2020-12-02] MEDS: GABAPENTIN 100 MG CAPSULE 200 MG PO ×3 (08:24→17:49)
[2020-12-02] MEDS: SERTRALINE HCL 50 MG TABLET PO (08:24)
[2020-12-02] MEDS: PANTOPRAZOLE SOD SESQUIHYDRATE 20 MG TAB PO (08:25)
[2020-12-02] MEDS: predniSONE 2.5 MG TABLET PO (08:25)
[2020-12-02] MEDS: amLODIPine BESYLATE 5 MG TABLET 10 MG PO (08:26)
[2020-12-02] MEDS: FOLIC ACID 1 MG TABLET PO (08:26)
[2020-12-02 08:27] VITALS: PULSE 68
[2020-12-02] MEDS: SIMVASTATIN 10 MG TABLET PO (08:27)
[2020-12-02] MEDS: DOCUSATE SODIUM 100 MG CAPSULE PO (08:27)
[2020-12-02] MEDS: MAGNESIUM OXIDE 400 MG TABLET PO (08:27)
[2020-12-02] MEDS: METOPROLOL TARTRATE 12.5 MG TABLET PO ×2 (08:27→20:14)
[2020-12-02] MEDS: ENOXAPARIN 40 MG/0.4 ML SYRINGE SUB-Q (08:31)
[2020-12-02] MEDS: ASPIRIN 325 MG ENTERIC TABLET PO (08:33)
[2020-12-02 08:37] LABS: Anion Gap 4 mmol/L (8-16); Blood Urea Nitrogen 32 mg/dL (9-20); Calcium 8.5 mg/dL (8.4-10.2); Carbon Dioxide 27 mmol/L (22-30); Chloride 106 mmol/L (98-107); Estimated CRCL calculation 42 ml/min; Estimated Glomerular Filt Rate 46; Glucose 95 mg/dL (75-110); Sodium 137 mmol/L (137-145)
--- NOTE | 2020-12-02 11:12 | PM.DS ---
DS: Admitting Diagnosis Admitting Diagnosis Admitting Diagnosis: left [id number]-dah-[id number] amputation DS: Summary Hospital Course Hospital Course: patient generally remained stable ,discussed in the family meeting seen by Dr. Heaton and the hospitalist Time Spent with Patient Time attestation: Total time spent providing and/or coordinating discharge services:ADMISSION FUNCTION:74 years old right-handed male admitted to the rehab floor with primary rehab impairment category of 10 there is amputation of lower extremity for the diagnosis of left foot osteomyelitis in addition to the comorbid conditions of 1. Alcohol abuse 2. Atrial fibrillation for which he is not on long-term anticoagulation 3. Diabetes mellitus 4. Hypertension 5. COPD 6. Congestive heart failure 7. Chronic anemia 8. Bronchial asthma 9. Chronic respiratory failure for which patient is on home oxygen 10. Neuropathy 11. Depression and 12. ichthyosis 13. Depression 14. COVID negative. Functional measures at the time of admission were as follows. Eating [Set Up Only] Oral Care Supervision Toileting Hygiene substantial or maximal assistance Shower/Bathing partial assistance Upper Body Dressing partial assistance Lower Body Dressing substantial or maximal assistance Donning/Pulcifer Footwear supervision Rolling Left and Right supervision Sit to Lying supervision Lying to Sitting supervision Sit to Stand dependent Bed to Chair Transfers substantial or maximal assistance Toilet Transfers substantial or maximal assistance Car Transfers partial assistance Walking 10' not applicable Walking 50' with Two Turns not applicable Walking 150' not applicable Curb or Step not applicable 4 Steps not applicable 12 Steps not applicable Picking Up Object not applicable [Wheelchair Mobility 50'] independent [Wheelchair Mobility 150'] independent GOALS: Eating [INDEPENDENT] Oral Care [INDEPENDENT] Toileting Hygiene supervision Shower/Bathing supervision Upper Body Dressing [INDEPENDENT] Lower Body Dressing supervision Donning/Pulcifer Footwear set up Rolling Left and Right [INDEPENDENT] Sit to Lying [INDEPENDENT] Lying to Sitting [INDEPENDENT] Sit to Stand supervision Bed to Chair Transfers supervision Toilet Transfers supervision Car Transfers supervision Walking 10' supervision Walking 50' with Two Turns supervision Walking 150' not applicable Curb or Step partial assistance 4 Steps not applicable 12 Steps not applicable Picking Up Object partial assistance [Wheelchair Mobility 50'] [INDEPENDENT] [Wheelchair Mobility 150'] [INDEPENDENT] DISCHARGE PERFORMANCE: Eating [INDEPENDENT] Oral Care [INDEPENDENT] Toileting Hygiene [INDEPENDENT] Shower/Bathing [INDEPENDENT] Upper Body Dressing [INDEPENDENT] Lower Body Dressing [INDEPENDENT] Donning/Pulcifer Footwear [INDEPENDENT] Rolling Left and Right [INDEPENDENT] Sit to Lying [INDEPENDENT] Lying to Sitting [INDEPENDENT] Sit to Stand supervision Bed to Chair Transfers [INDEPENDENT] Toilet Transfers supervision Car Transfers supervision Walking 10' partial or moderate assistance Walking 50' with Two Turns [INDEPENDENT] Walking 150' not applicable Curb or Step not applicable 4 Steps not applicable 12 Steps not applicable Picking Up Object partial assistance [Wheelchair Mobility 50'] [INDEPENDENT] [Wheelchair Mobility 150'] [INDEPENDENT] # during the hospitalization on the rehab floor patient remain actively involved in the physical therapy and occupational therapy. Consultation was obtained with the hospital service for the history of chronic atrial fibrillation with significant AV node dysfunction and history of bradycardia and observation of low heart rate on this floor as well dropping down to 28 at that time a Toprol 25 mg b.i.d. was stopped and subsequently heart rate trended upward. His metoprolol was decreased to12.5mg b.i.d. patient was seen by Dr. Heaton also the trauma to his amputation site where he wa
[2020-12-02 11:53] LABS: Glucose Point of Care 151 (65-105)
[2020-12-02 11:53] LABS: Glucose Point of Care 105 (65-105)
--- NOTE | 2020-12-02 13:23 | PM.IMPN ---
Progress Note: A&P Assessment and Plan (1) Generalized weakness: Code(s): R53.1 - Weakness Status: Acute Assessment and Plan: 12/02/20 13:23 patient is well-known to me as I had discharged from [facility] and was treated with bradycardia status post left BKA, patient was in [facility] for over 3 weeks and had received therapy, was stable and was discharged home, apparently at home patient had difficulty managing himself and fell several times and yesterday while transferring himself from wheelchair to toilet patient fell and landed on his stump and it was painful and there was slight bleeding, presented emergency department for further evaluation, there were no other associated symptoms chest pain shortness of breath palpitation or dizziness prior to fall, patient states he is still too weak to live by himself, patient will benefit going into acute rehab for further physical therapy and strengthening, will continue to monitor and further recommendation to follow. (2) Recurrent falls: Code(s): R29.6 - Repeated falls Status: Acute Assessment and Plan: Plan is above Subjective Date/time seen: 12/02/20 13:23 patient is well-known to me as I had discharged from [facility] and was treated with bradycardia status post left BKA, patient was in [facility] for over 3 weeks and had received therapy, was stable and was discharged home, apparently at home patient had difficulty managing himself and fell several times and yesterday while transferring himself from wheelchair to toilet patient fell and landed on his stump and it was painful and there was slight bleeding, presented emergency department for further evaluation, there were no other associated symptoms chest pain shortness of breath palpitation or dizziness prior to fall, patient states he is still too weak to live by himself, patient will benefit going into acute rehab for further physical therapy and strengthening, will continue to monitor and further recommendation to follow. Review of Systems Review of Systems: All systems reviewed & are unremarkable except as noted in HPI and below Exam Narrative: Exam Narrative: Patient is comfortable, NAD HEENT: eyes are clear and none icteric LUNGS:CTA HEART: RR S1S2 ABD: BS+, Soft and nontender Lower extremities: no edema MS: Left BKA, stump dressing is clean dry and intact. SKIN: nonjaundiced Neuro: grossly intact. Objective Data Vital Signs Vital Signs: Vital Signs - 24 hr 12/01/20 18:40 12/01/20 20:30 12/01/20 21:30 Temperature 97.2 F L Pulse Rate 71 78 63 Respiratory Rate 18 15 12 Blood Pressure 139/101 H 146/58 H 154/85 H Pulse Oximetry 98 96 97 12/01/20 22:30 12/01/20 23:30 12/01/20 23:57 Temperature 98.9 F Pulse Rate 77 79 58 L Respiratory Rate 19 17 18 Blood Pressure 144/88 H 139/85 125/64 Pulse Oximetry 96 97 96 12/02/20 05:53 12/02/20 08:27 Temperature 98.0 F Pulse Rate 68 68 Respiratory Rate 16 Blood Pressure 146/84 H Pulse Oximetry 98 Intake/Output Intake/Output: Intake & Output 11/29/20 11/30/20 12/01/20 12/02/20 23:59 23:59 23:59 23:59 Intake Total 1020 Output Total 300 Balance 720 Meds/Results Medications: Active Medications Generic Name Dose Route Start Last Admin Trade Name Gurvinderq PRN Reason Stop Dose Admin Acetaminophen 1,000 mg 12/02/20 03:35 Acetaminophen 500 Mg Tablet PO Q6-8H PRN Mild Pain (1-3) Or Fever Amlodipine Besylate 10 mg 12/02/20 09:00 12/02/20 08:26 Amlodipine Besylate 5 Mg Tablet PO 10 mg DAILY KALPESH Administration Aspirin 325 mg 12/02/20 09:00 12/02/20 08:33 Aspirin 325 Mg Enteric Tablet PO 325 mg DAILY KALPESH Administration Docusate Sodium 100 mg 12/02/20 09:00 12/02/20 08:27 Docusate Sodium 100 Mg Capsule PO 100 mg DAILY [facility] Administration Enoxaparin Sodium 40 mg 12/02/20 09:00 12/02/20 08:31 Enoxaparin 40 Mg/0.4 Ml Syringe SUB-Q 40 mg DAILY [facility] Administration Folic A
[2020-12-02 14:00] VITALS: BP 128/64; PULSE 89; RESP 20; TEMP 36.6; O2SAT 97
[2020-12-02 17:27] LABS: Glucose Point of Care 119 (65-105)
--- NOTE | 2020-12-02 19:57 | WPDCN ---
HPI Data of Consult Date/Time: 12/02/20 19:57 Requesting Physician: Tracy Kowalski DO Primary Care Provider: Master Colbert MD Consult Narrative Narrative: Ludin Mcguire is a 74 year old male ~3 weeks post left BKA. Has been getting rehab at home. Has had at least two falls post op landing on his stump. Admitted for falling. Agrees to admission to rehab from what I hear. Stump redressed tonight. There is no erythema or bleeding. There is approx 4x 1 cm dehiscence across end of stump. Perhaps slightly enlarged from date of last discharge. Mayito removed tonight since most of wound is healed and the rest of mayito only cling to one side of the wound. Anticipate this will heal if he can protect it. Has a very nice protective foam stump protector on at this time. OK for discharge. Will need wound care on a three times a week basis. May follow up with me in my office if needed. [facility] Past Medical History Medical History (Updated 12/02/20 @ 06:34 by Tracy Kowalski DO) Alcohol abuse Anxiety Asthma Benign prostatic hyperplasia Cerebrovascular accident Chronic anemia Chronic obstructive pulmonary disease Chronic respiratory failure with hypoxia, on home O2 therapy Depression Diabetic peripheral neuropathy Diastolic congestive heart failure Former smoker Gastroesophageal reflux disease Hearing loss Hypertension Ichthyosis vulgaris Irritable bowel syndrome Mixed hyperlipidemia Osteoarthritis Osteomyelitis History of osteomyelitis of both feet requiring multiple amputations. Persistent atrial fibrillation Not on long-term anticoagulation. Takes aspirin 325 mg daily. Sacrum and coccyx fracture Type 2 diabetes mellitus Diet-controlled. Hemoglobin A1c was 6.0 in June 2020. Surgical History Surgical History (Updated 12/02/20 @ 06:34 by Tracy Kowalski DO) History of bilateral cataract extraction History of incision and drainage Right hip abscess. History of left below knee amputation 11/17/[address] Heaton History of tonsillectomy History of total right hip arthroplasty (~2002) History of transmetatarsal amputation of left foot (~2019) History of transmetatarsal amputation of right foot (~2016) History of ventral hernia repair (~2006) Family History Family History Mother Patient's mother is , Onset Age: 31 Father Suicide Social History Social History Social History: The patient lives in [place] in an apartment. [employer] Supervisor comes for a few hours a day Saturday through Saturday. He gets Me[employer] on wheels. Has continued to refuse assisted living and the like. He is . 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 Smoked a pack of cigarettes per day for 58 years and quit in December of 2018. He has a history of alcohol abuse although he says he is not drinking much anymore. No illicit substance use, he used marijuana previously. He designates his daughter, Adwoa Xiong, as his surrogate decision maker and he wishes to be a full code. Smoking packs per day: 1 Smoking cigarettes per day: 20.0 Years smoked: 58 Smoking pack-years: 58.00 Smoking status: Former smoker Tobacco type: cigarettes Second hand tobacco smoke exposure: Yes Smoking end date: 12/28/18 Alcohol intake: current Drinks per week: 2 Substance use: former Substance use type: marijuana Gender identity (if verbalized by the patient): Male Spiritual care concerns: No Agree to blood products: Yes Meds Home Medications and Allergies Home Medications Medication Instructions Recorded Confirmed Type Spiriva with HandiHaler 1 cap INHALATION DAILY #90 inh 11/30/20 12/02/20 Rx docusate sodium [Colace] 100 mg PO DAILY #30 cap 11/30/20 12/02/20 Rx gabapentin 200 mg PO TID 30 Days #180 cap 11/30/20 12/02/20 Rx magnesium oxid
[2020-12-02 20:00] VITALS: BP 139/64; PULSE 41; RESP 22; TEMP 36.6; O2SAT 97
[2020-12-02 20:14] VITALS: PULSE 72
[2020-12-02 20:19] LABS: Glucose Point of Care 125 (65-105)
[2020-12-02] MEDS: traMADol HCL (*CRX) 50 MG TABLET PO (22:32)
[2020-12-03 04:00] VITALS: BP 120/72; PULSE 71; RESP 18; TEMP 36.6; O2SAT 95
[2020-12-03 06:29] LABS: Hematocrit 35.3 % (42.0-52.0); Hemoglobin 10.6 g/dL (14.0-18.0); Mean Corpuscular Hemoglobin 24.4 pg (26-34); Mean Corpuscular Volume 81.1 fl (80-100); Mean Platelet Volume 9.8 fl (7.4-10.4); Platelet Count Result 216 k/mm3 (150-375); Red Blood Count 4.35 M/mm3 (4.6-6.20); Red Cell Distribution Width 14.3 % (11.5-14.5); White Blood Count 7.3 K/mm3 (4.5-10.0)
[2020-12-03 06:48] LABS: Magnesium 1.8 mg/dL (1.6-2.3)
[2020-12-03 08:55] LABS: Glucose Point of Care 132 (65-105)
[2020-12-03 09:10] VITALS: PULSE 84
[2020-12-03] MEDS: SIMVASTATIN 10 MG TABLET PO (09:10)
[2020-12-03] MEDS: PANTOPRAZOLE SOD SESQUIHYDRATE 20 MG TAB PO (09:10)
[2020-12-03] MEDS: MAGNESIUM OXIDE 400 MG TABLET PO (09:10)
[2020-12-03] MEDS: DOCUSATE SODIUM 100 MG CAPSULE PO (09:10)
[2020-12-03] MEDS: SERTRALINE HCL 50 MG TABLET PO (09:10)
[2020-12-03] MEDS: GABAPENTIN 100 MG CAPSULE 200 MG PO ×3 (09:10→17:26)
[2020-12-03] MEDS: amLODIPine BESYLATE 5 MG TABLET 10 MG PO (09:10)
[2020-12-03] MEDS: METOPROLOL TARTRATE 12.5 MG TABLET PO ×2 (09:10→20:04)
[2020-12-03] MEDS: FOLIC ACID 1 MG TABLET PO (09:10)
[2020-12-03] MEDS: ASPIRIN 325 MG ENTERIC TABLET PO (09:10)
[2020-12-03] MEDS: predniSONE 2.5 MG TABLET PO (09:10)
[2020-12-03] MEDS: ENOXAPARIN 40 MG/0.4 ML SYRINGE SUB-Q (09:11)
[2020-12-03] MEDS: traMADol HCL (*CRX) 50 MG TABLET PO ×3 (09:15→23:50)
--- NOTE | 2020-12-03 10:23 | PM.IMPN ---
Progress Note: A&P Assessment and Plan (1) Generalized weakness: Code(s): R53.1 - Weakness Status: Acute Assessment and Plan: 12/03/20 10:23 patient is well-known to me as I had discharged from [facility] and was treated with bradycardia status post left BKA, patient was in [facility] for over 3 weeks and had received therapy, was stable and was discharged home, apparently at home patient had difficulty managing himself and fell several times and yesterday while transferring himself from wheelchair to toilet patient fell and landed on his stump and it was painful and there was slight bleeding, presented emergency department for further evaluation, there were no other associated symptoms chest pain shortness of breath palpitation or dizziness prior to fall, patient states he is still too weak to live by himself, patient will benefit going into acute rehab for further physical therapy and strengthening, will continue to monitor and further recommendation to follow. 12/03 today patient is sitting in the chair to the pain is better in his stump, participating in physical therapy, awaiting placement to rehab as patient is not able manage at home by himself he will need more assistance, he will benefit from physical therapy and strengthening exercises. Will continue to monitor and further recommendation to follow. (2) Recurrent falls: Code(s): R29.6 - Repeated falls Status: Acute Assessment and Plan: Plan is above Subjective Date/time seen: 12/03/20 10:23 patient is well-known to me as I had discharged from [facility] and was treated with bradycardia status post left BKA, patient was in [facility] for over 3 weeks and had received therapy, was stable and was discharged home, apparently at home patient had difficulty managing himself and fell several times and yesterday while transferring himself from wheelchair to toilet patient fell and landed on his stump and it was painful and there was slight bleeding, presented emergency department for further evaluation, there were no other associated symptoms chest pain shortness of breath palpitation or dizziness prior to fall, patient states he is still too weak to live by himself, patient will benefit going into acute rehab for further physical therapy and strengthening, will continue to monitor and further recommendation to follow. 12/03 today patient is sitting in the chair to the pain is better in his stump, participating in physical therapy, awaiting placement to rehab as patient is not able manage at home by himself he will need more assistance, he will benefit from physical therapy and strengthening exercises. Will continue to monitor and further recommendation to follow. Review of Systems Review of Systems: All systems reviewed & are unremarkable except as noted in HPI and below Exam Narrative: Exam Narrative: Patient is comfortable, NAD HEENT: eyes are clear and none icteric LUNGS:CTA HEART: RR S1S2 ABD: BS+, Soft and nontender Lower extremities: no edema MS: Left BKA, stump dressing is clean dry and intact. SKIN: nonjaundiced Neuro: grossly intact. Objective Data Vital Signs Vital Signs: Vital Signs - 24 hr 12/02/20 14:00 12/02/20 20:00 12/02/20 20:14 Temperature 97.9 F 97.9 F Pulse Rate 89 41 L 72 Respiratory Rate 20 22 H Blood Pressure 128/64 139/64 Pulse Oximetry 97 97 12/03/20 04:00 12/03/20 09:10 Temperature 97.9 F Pulse Rate 71 84 Respiratory Rate 18 Blood Pressure 120/72 Pulse Oximetry 95 Intake/Output Intake/Output: Intake & Output 11/30/20 12/01/20 12/02/20 12/03/20 23:59 23:59 23:59 23:59 Intake Total 2530 450 Output Total 1200 1000 Balance 1330 -550 Meds/Results Medications: Active Medications Generic Name Dose Route Start Last Admin Trade Name Freq PRN Reason Stop Dose Admin Acetaminophen 1,000 mg 12/02/20 03:35 Acetaminophen 500 Mg Tablet PO Q6-8H PRN Mild Pain (1-3) Or Fever Amlodipin
[2020-12-03 12:53] LABS: Glucose Point of Care 140 (65-105)
[2020-12-03 13:04] VITALS: PULSE 63; RESP 18; O2SAT 95
[2020-12-03 14:00] VITALS: BP 124/76; PULSE 79; RESP 18; TEMP 36.5; O2SAT 98
[2020-12-03 17:22] LABS: Glucose Point of Care 115 (65-105)
[2020-12-03] MEDS: SILVERGEL (ELTA) 45 ML 1 APPLIC TOPICAL (17:26)
[2020-12-03 20:00] VITALS: BP 138/70; PULSE 96; RESP 22; TEMP 36.4; O2SAT 99
[2020-12-03 20:04] VITALS: PULSE 83
[2020-12-03 20:45] LABS: Glucose Point of Care 192 (65-105)
[2020-12-04 04:00] VITALS: BP 140/76; PULSE 63; RESP 20; TEMP 36.1; O2SAT 95
[2020-12-04 05:50] LABS: Hematocrit 36.1 % (42.0-52.0); Hemoglobin 10.5 g/dL (14.0-18.0); Mean Corpuscular HGB Conc 29.1 g/dl (32-36); Mean Corpuscular Hemoglobin 24.1 pg (26-34); Mean Corpuscular Volume 82.8 fl (80-100); Mean Platelet Volume 9.6 fl (7.4-10.4); Platelet Count Result 222 k/mm3 (150-375); Red Blood Count 4.36 M/mm3 (4.6-6.20); Red Cell Distribution Width 14.6 % (11.5-14.5); White Blood Count 6.8 K/mm3 (4.5-10.0)
[2020-12-04 06:07] LABS: Magnesium 1.6 mg/dL (1.6-2.3)
[2020-12-04 07:45] LABS: Glucose Point of Care 98 (65-105)
[2020-12-04] MEDS: SIMVASTATIN 10 MG TABLET PO (09:09)
[2020-12-04 09:10] VITALS: PULSE 88
[2020-12-04] MEDS: SERTRALINE HCL 50 MG TABLET PO (09:10)
[2020-12-04] MEDS: GABAPENTIN 100 MG CAPSULE 200 MG PO ×3 (09:10→17:02)
[2020-12-04] MEDS: DOCUSATE SODIUM 100 MG CAPSULE PO (09:10)
[2020-12-04] MEDS: amLODIPine BESYLATE 5 MG TABLET 10 MG PO (09:10)
[2020-12-04] MEDS: predniSONE 2.5 MG TABLET PO (09:10)
[2020-12-04] MEDS: ASPIRIN 325 MG ENTERIC TABLET PO (09:10)
[2020-12-04] MEDS: METOPROLOL TARTRATE 12.5 MG TABLET PO ×2 (09:10→20:36)
[2020-12-04] MEDS: FOLIC ACID 1 MG TABLET PO (09:11)
[2020-12-04] MEDS: MAGNESIUM OXIDE 400 MG TABLET PO (09:11)
[2020-12-04] MEDS: ENOXAPARIN 40 MG/0.4 ML SYRINGE SUB-Q (09:11)
[2020-12-04] MEDS: PANTOPRAZOLE SOD SESQUIHYDRATE 20 MG TAB PO (09:11)
[2020-12-04] MEDS: SILVERGEL (ELTA) 45 ML 1 APPLIC TOPICAL (09:12)
[2020-12-04] MEDS: traMADol HCL (*CRX) 50 MG TABLET PO ×2 (09:20→17:06)
[2020-12-04 09:35] LABS: Anion Gap 5 mmol/L (8-16); Blood Urea Nitrogen 34 mg/dL (9-20); Calcium 8.8 mg/dL (8.4-10.2); Carbon Dioxide 28 mmol/L (22-30); Chloride 107 mmol/L (98-107); Estimated CRCL calculation 51 ml/min; Estimated Glomerular Filt Rate 59; Glucose 116 mg/dL (75-110); Potassium 4.3 mmol/L (3.4-5.0); Sodium 140 mmol/L (137-145)
--- NOTE | 2020-12-04 11:10 | PM.IMPN ---
Progress Note: A&P Assessment and Plan (1) Generalized weakness: Code(s): R53.1 - Weakness Status: Acute Assessment and Plan: 12/04/20 11:10 patient is well-known to me as I had discharged from [facility] and was treated with bradycardia status post left BKA, patient was in [facility] for over 3 weeks and had received therapy, was stable and was discharged home, apparently at home patient had difficulty managing himself and fell several times and yesterday while transferring himself from wheelchair to toilet patient fell and landed on his stump and it was painful and there was slight bleeding, presented emergency department for further evaluation, there were no other associated symptoms chest pain shortness of breath palpitation or dizziness prior to fall, patient states he is still too weak to live by himself, patient will benefit going into acute rehab for further physical therapy and strengthening, will continue to monitor and further recommendation to follow. 12/03 today patient is sitting in the chair to the pain is better in his stump, participating in physical therapy, awaiting placement to rehab as patient is not able manage at home by himself he will need more assistance, he will benefit from physical therapy and strengthening exercises. Will continue to monitor and further recommendation to follow. 12/04 patient is clinically stable working with physical therapy, has no complaint, awaiting placement to rehab and further recommendation to follow (2) Recurrent falls: Code(s): R29.6 - Repeated falls Status: Acute Assessment and Plan: Plan is above Subjective Date/time seen: 12/04/20 11:10 patient is well-known to me as I had discharged from [facility] and was treated with bradycardia status post left BKA, patient was in [facility] for over 3 weeks and had received therapy, was stable and was discharged home, apparently at home patient had difficulty managing himself and fell several times and yesterday while transferring himself from wheelchair to toilet patient fell and landed on his stump and it was painful and there was slight bleeding, presented emergency department for further evaluation, there were no other associated symptoms chest pain shortness of breath palpitation or dizziness prior to fall, patient states he is still too weak to live by himself, patient will benefit going into acute rehab for further physical therapy and strengthening, will continue to monitor and further recommendation to follow. 12/03 today patient is sitting in the chair to the pain is better in his stump, participating in physical therapy, awaiting placement to rehab as patient is not able manage at home by himself he will need more assistance, he will benefit from physical therapy and strengthening exercises. Will continue to monitor and further recommendation to follow. 12/04 patient is clinically stable working with physical therapy, has no complaint, awaiting placement to rehab and further recommendation to follow Review of Systems Review of Systems: All systems reviewed & are unremarkable except as noted in HPI and below Exam Narrative: Exam Narrative: Patient is comfortable, NAD HEENT: eyes are clear and none icteric LUNGS:CTA HEART: RR S1S2 ABD: BS+, Soft and nontender Lower extremities: no edema MS: Left BKA, stump dressing is clean dry and intact. SKIN: nonjaundiced Neuro: grossly intact. Objective Data Vital Signs Vital Signs: Vital Signs - 24 hr 12/03/20 13:04 12/03/20 14:00 12/03/20 20:00 Temperature 97.7 F 97.6 F Pulse Rate 63 79 96 Respiratory Rate 18 18 22 H Blood Pressure 124/76 138/70 Pulse Oximetry 95 98 99 12/03/20 20:04 12/04/20 04:00 12/04/20 09:10 Temperature 97 F L Pulse Rate 83 63 88 Respiratory Rate 20 Blood Pressure 140/76 Pulse Oximetry 95 Intake/Output Intake/Output: Intake & Output 12/01/20 12/02/20 12/03/20 12/04/20 23:59 23:59 23:59 23:59 Intake Total 2530 1410 8
[2020-12-04 12:09] LABS: Glucose Point of Care 94 (65-105)
[2020-12-04 13:59] VITALS: BP 128/64; PULSE 72; RESP 16; TEMP 36.8; O2SAT 98
[2020-12-04 17:06] LABS: Glucose Point of Care 159 (65-105)
[2020-12-04 20:36] VITALS: PULSE 77
[2020-12-04 21:04] LABS: Glucose Point of Care 90 (65-105)
[2020-12-04 22:00] VITALS: BP 139/85; PULSE 72; RESP 16; TEMP 36.7; O2SAT 98
[2020-12-04] MEDS: ALPRAZolam (*CRX) 0.25 MG TABLET PO (22:49)
[2020-12-05 05:27] LABS: Hematocrit 37.1 % (42.0-52.0); Hemoglobin 10.8 g/dL (14.0-18.0); Mean Corpuscular HGB Conc 29.1 g/dl (32-36); Mean Corpuscular Hemoglobin 23.8 pg (26-34); Mean Corpuscular Volume 81.9 fl (80-100); Mean Platelet Volume 9.6 fl (7.4-10.4); Platelet Count Result 235 k/mm3 (150-375); Red Blood Count 4.53 M/mm3 (4.6-6.20); Red Cell Distribution Width 14.4 % (11.5-14.5); White Blood Count 6.9 K/mm3 (4.5-10.0)
[2020-12-05 05:39] LABS: Magnesium 1.7 mg/dL (1.6-2.3)
[2020-12-05 06:00] VITALS: BP 117/54; PULSE 64; RESP 18; TEMP 36.1; O2SAT 99
[2020-12-05] MEDS: amLODIPine BESYLATE 5 MG TABLET 10 MG PO (08:58)
[2020-12-05] MEDS: GABAPENTIN 100 MG CAPSULE 200 MG PO ×3 (08:58→16:00)
[2020-12-05 08:59] VITALS: PULSE 64
[2020-12-05] MEDS: MAGNESIUM OXIDE 400 MG TABLET PO (08:59)
[2020-12-05] MEDS: METOPROLOL TARTRATE 12.5 MG TABLET PO ×2 (08:59→20:07)
[2020-12-05] MEDS: SIMVASTATIN 10 MG TABLET PO (08:59)
[2020-12-05] MEDS: SERTRALINE HCL 50 MG TABLET PO (08:59)
[2020-12-05] MEDS: DOCUSATE SODIUM 100 MG CAPSULE PO (08:59)
[2020-12-05] MEDS: predniSONE 2.5 MG TABLET PO (08:59)
[2020-12-05] MEDS: FOLIC ACID 1 MG TABLET PO (08:59)
[2020-12-05] MEDS: ENOXAPARIN 40 MG/0.4 ML SYRINGE SUB-Q (08:59)
[2020-12-05] MEDS: PANTOPRAZOLE SOD SESQUIHYDRATE 20 MG TAB PO (08:59)
[2020-12-05] MEDS: ASPIRIN 325 MG ENTERIC TABLET PO (09:52)
[2020-12-05] MEDS: SILVERGEL (ELTA) 45 ML 1 APPLIC TOPICAL (09:54)
[2020-12-05 10:09] LABS: Glucose Point of Care 100 (65-105)
[2020-12-05 11:37] LABS: Glucose Point of Care 145 (65-105)
--- NOTE | 2020-12-05 12:14 | PM.IMPN ---
Progress Note: A&P Assessment and Plan (1) Generalized weakness: Code(s): R53.1 - Weakness Status: Acute Assessment and Plan: 12/05/20 12:14 patient is well-known to me as I had discharged from [facility] and was treated with bradycardia status post left BKA, patient was in [facility] for over 3 weeks and had received therapy, was stable and was discharged home, apparently at home patient had difficulty managing himself and fell several times and yesterday while transferring himself from wheelchair to toilet patient fell and landed on his stump and it was painful and there was slight bleeding, presented emergency department for further evaluation, there were no other associated symptoms chest pain shortness of breath palpitation or dizziness prior to fall, patient states he is still too weak to live by himself, patient will benefit going into acute rehab for further physical therapy and strengthening, will continue to monitor and further recommendation to follow. 12/03 today patient is sitting in the chair to the pain is better in his stump, participating in physical therapy, awaiting placement to rehab as patient is not able manage at home by himself he will need more assistance, he will benefit from physical therapy and strengthening exercises. Will continue to monitor and further recommendation to follow. 12/04 patient is clinically stable working with physical therapy, has no complaint, awaiting placement to rehab and further recommendation to follow 12/05 sitting in the chair eating his breakfast, patient is clinically, has no complaint, awaiting placement to rehab and further recommendation to follow (2) Recurrent falls: Code(s): R29.6 - Repeated falls Status: Acute Assessment and Plan: Plan is above Subjective Date/time seen: 12/05/20 12:14 patient is well-known to me as I had discharged from [facility] and was treated with bradycardia status post left BKA, patient was in [facility] for over 3 weeks and had received therapy, was stable and was discharged home, apparently at home patient had difficulty managing himself and fell several times and yesterday while transferring himself from wheelchair to toilet patient fell and landed on his stump and it was painful and there was slight bleeding, presented emergency department for further evaluation, there were no other associated symptoms chest pain shortness of breath palpitation or dizziness prior to fall, patient states he is still too weak to live by himself, patient will benefit going into acute rehab for further physical therapy and strengthening, will continue to monitor and further recommendation to follow. 12/03 today patient is sitting in the chair to the pain is better in his stump, participating in physical therapy, awaiting placement to rehab as patient is not able manage at home by himself he will need more assistance, he will benefit from physical therapy and strengthening exercises. Will continue to monitor and further recommendation to follow. 12/04 patient is clinically stable working with physical therapy, has no complaint, awaiting placement to rehab and further recommendation to follow 12/05 sitting in the chair eating his breakfast, patient is clinically, has no complaint, awaiting placement to rehab and further recommendation to follow Review of Systems Review of Systems: All systems reviewed & are unremarkable except as noted in HPI and below Exam Narrative: Exam Narrative: Patient is comfortable, NAD HEENT: eyes are clear and none icteric LUNGS:CTA HEART: RR S1S2 ABD: BS+, Soft and nontender Lower extremities: no edema MS: Left BKA, stump dressing is clean dry and intact. SKIN: nonjaundiced Neuro: grossly intact. Objective Data Vital Signs Vital Signs: Vital Signs - 24 hr 12/04/20 13:59 12/04/20 20:36 12/04/20 22:00 Temperature 98.2 F 98.0 F Pulse Rate 72 77 72 Respiratory Rate 16 16 Blood Pressure 128/64 139/85 Pulse Oximetry
[2020-12-05 14:00] VITALS: BP 125/67; PULSE 88; RESP 18; TEMP 36.4; O2SAT 98
[2020-12-05 18:28] LABS: SARS-CoV-2 RNA PCR Negative
--- NOTE | 2020-12-05 18:49 | PM.DS ---
DS: Admitting Diagnosis Admitting Diagnosis Admitting Diagnosis: Chief Complaint: Fall, pain in stump DS: Discharge Diagnosis Discharge Diagnosis (1) Generalized weakness: Code(s): R53.1 - Weakness Status: Acute Assessment and Plan: 12/05/20 12:14 patient is well-known to me as I had discharged from [facility] and was treated with bradycardia status post left BKA, patient was in [facility] for over 3 weeks and had received therapy, was stable and was discharged home, apparently at home patient had difficulty managing himself and fell several times and yesterday while transferring himself from wheelchair to toilet patient fell and landed on his stump and it was painful and there was slight bleeding, presented emergency department for further evaluation, there were no other associated symptoms chest pain shortness of breath palpitation or dizziness prior to fall, patient states he is still too weak to live by himself, patient will benefit going into acute rehab for further physical therapy and strengthening, will continue to monitor and further recommendation to follow. 12/03 today patient is sitting in the chair to the pain is better in his stump, participating in physical therapy, awaiting placement to rehab as patient is not able manage at home by himself he will need more assistance, he will benefit from physical therapy and strengthening exercises. Will continue to monitor and further recommendation to follow. 12/04 patient is clinically stable working with physical therapy, has no complaint, awaiting placement to rehab and further recommendation to follow 12/05 sitting in the chair eating his breakfast, patient is clinically, has no complaint, awaiting placement to rehab and further recommendation to follow (2) Recurrent falls: Code(s): R29.6 - Repeated falls Status: Acute Assessment and Plan: Plan is above DS: Summary Hospital Course Reason for hospitalization: Chief Complaint: Fall, pain in stump Narrative: Ludin Mcguire is a 74 year old male with a past medical history alcohol abuse, atrial fibrillation, chronic respiratory failure, diabetes, hypertension and peripheral vascular disease with recent left [id number] amputation 11/17/2020 due to osteomyelitis who presented to the ER for multiple falls. The patient reports that he was discharged from acute rehab 11/30/2020. He has been having multiple falls. He reports that his most recent fall was when he was transferring from his wheelchair to the toilet. When he attempted to transfer his right leg folded underneath him any landed hitting his stump on the floor. He reports pain in his stump rating 7/10 in intensity since this fall. X-ray performed in the ER did not demonstrate any evidence of fracture to the knee or stump. He had dehiscence of his wound following his below the knee amputation but he did not have any new dehiscence of the wound with his fall. He has been having a small amount of bloody drainage on his dressings but this is unchanged from baseline. He has not had any purulence drainage, fevers or increased swelling to his stump site. He reports he has not drank any alcohol since he was discharged from the hospital. He reports that he is weaker than he realized when he was discharged from acute rehab. He is now willing to go to a skilled placement for further rehab. He lives alone but was discharged with home health. Hospital Course: patient is well-known to me as I had discharged from [facility] and was treated with bradycardia status post left BKA, patient was in [facility] for over 3 weeks and had received therapy, was stable and was discharged home, apparently at home patient had difficulty managing himself and fell several times and yesterday while transferring himself from wheelchair to toilet patient fell and landed on his stump and it was painful and there was slight bleeding, presented emergency department for further evaluation, there were no other associ
[2020-12-05 18:56] LABS: Glucose Point of Care 120 (65-105)
[2020-12-05 20:00] VITALS: PULSE 84; RESP 18; O2SAT 99
[2020-12-05 20:07] VITALS: PULSE 78
--- NOTE | 2020-12-05 20:41 | PC.NURSE ---
Covid test neg. Report called to Estela at [facility]. Unable to contact family pt will go by ambulance, [facility] notified.
[2020-12-05 20:55] LABS: Glucose Point of Care 162 (65-105)
[2020-12-05 21:25] VITALS: BP 150/69; PULSE 84; RESP 18; TEMP 36.4; O2SAT 99
[2020-12-06 05:47] LABS: Hematocrit 35.4 % (42.0-52.0); Hemoglobin 10.5 g/dL (14.0-18.0); Mean Corpuscular HGB Conc 29.7 g/dl (32-36); Mean Corpuscular Hemoglobin 23.8 pg (26-34); Mean Corpuscular Volume 80.3 fl (80-100); Mean Platelet Volume 9.5 fl (7.4-10.4); Platelet Count Result 214 k/mm3 (150-375); Red Blood Count 4.41 M/mm3 (4.6-6.20); Red Cell Distribution Width 14.1 % (11.5-14.5); White Blood Count 8.1 K/mm3 (4.5-10.0)
[2020-12-06 05:58] LABS: Magnesium 1.7 mg/dL (1.6-2.3)
--- NOTE | 2020-12-12 16:03 | PM.DS ---
DS: Admitting Diagnosis Admitting Diagnosis Admitting Diagnosis: left BKA DS: Summary Hospital Course Hospital Course: did not see the patient Time Spent with Patient Time attestation: # did not see the patient./ Dr. Luther campos Discharge Plan Discharge Attending physician on discharge: Ayo Foy Consulting providers: Ravin Heaton ; Shar Burch Discharging Clinician: Ayo Foy Patient Disposition: SNF Activity: as tolerated Diet: as tolerated Wound Care Instructions: follow printed instructions Patient Instructions: Heart Failure (DC), Hypercoagulation (DC) Stand Alone Forms: General Discharge Information Follow-up/Referrals: Luther Campos MD [Physician] - Discharge Medications: Continued simvastatin 10 mg tablet 10 mg PO DAILY Qty: 90 RF: 1 magnesium oxide 400 mg (241.3 mg magnesium) Tablet 400 mg PO QAM 30 Days Qty: 30 RF: 0 prednisone 2.5 mg tablet 2.5 mg PO DAILY Qty: 30 RF: 0 docusate sodium [Colace] 100 mg Capsule 100 mg PO DAILY Qty: 30 RF: 0 omeprazole 20 mg capsule,delayed release(DR/EC) 40 mg PO BID Qty: 60 RF: 1 gabapentin 100 mg Capsule 200 mg PO TID 30 Days Qty: 180 RF: 0 sertraline 50 mg tablet 50 mg PO DAILY Qty: 90 RF: 1 Spiriva with HandiHaler 18 mcg capsule, w/inhalation device 1 cap inhalation DAILY Qty: 90 RF: 3 metoprolol tartrate 25 mg Tablet 12.5 mg PO BID Qty: 30 RF: 0 amlodipine 10 mg Tablet 10 mg PO DAILY RF: 0 acetaminophen 500 mg tablet 1,000 mg PO Q6-8H PRN (Reason: Mild Pain (1-3) Or Fever) RF: 0 aspirin 325 mg tablet,delayed release (DR/EC) 325 mg PO DAILY RF: 0 folic acid 1 mg tablet 1 mg PO DAILY RF: 0 Date of admission: 12/01/20 22:21 Primary Care Provider: Master Colbert Admitting Provider: Tracy Kowalski Attending physician on admission: Ayo Foy Condition: Stable
== END 2020-12-06 06:15 ==
LOC: ANHED 21:30 → ANH2MED 12-02 01:46
PROVIDERS: Admitting Provider Internal Medicine; Emergency Provider Emergency Medicine; PCP Emergency Medicine; Visit Provider Family Medicine
DX: R53.1 Weakness (principal); R29.6 Repeated falls; T87.81 Dehiscence of amputation stump; Z89.512 Acquired absence of left leg below knee; Z20.822 Contact with and (suspected) exposure to COVID-19; E11.42 Type 2 diabetes mellitus with diabetic polyneuropathy; I11.0 Hypertensive heart disease with heart failure; I50.30 Unspecified diastolic (congestive) heart failure; I48.91 Unspecified atrial fibrillation; J96.10 Chronic respiratory failure, unspecified whether with hypoxia or hypercapnia; J44.9 Chronic obstructive pulmonary disease, unspecified; Z87.891 Personal history of nicotine dependence; Z89.431 Acquired absence of right foot; Z23 Encounter for immunization; Z79.4 Long term (current) use of insulin
CPT/HCPCS: 36415; 73562; 80048; 82948; 83735; 85025; 85027; 90471; 90653; 96360; 96361; 96372; 97110; 97161; 97165; 97530; 97535; 99285; A9270; C9803; G0008; G0378; J1650; J7120; U0003; U0005

== ENCOUNTER 2021-02-14 07:27 | Outpatient (RCR) | payer MEDICARE, MEDICAID, SELFPAY ==
--- NOTE | 2020-12-07 12:54 | PCWOUND ---
WOCN NOTE Patient d/c to [facility]. did not make appointment, placed call to center to schedule follow up visits.
[2021-01-17 13:19] VITALS: BMI 22.2
--- NOTE | 2021-01-24 16:26 | P.PNWOUND_ITS ---
Wound Care Note Date/Time: 16:26
--- NOTE | 2021-01-24 16:26 | WPDWOUNDNOTE ---
Wound Care Note Date/Time: 16:26
--- NOTE | 2021-01-25 09:01 | WPDWOUNDNOTE ---
Wound Care Note Date/Time: 01/17/2021 13:30 Assessment and Plan Assessment and plan (1) Amputation of left lower extremity below knee: Code(s): S88.112A - Complete traumatic amputation at level between knee and ankle, left lower leg, initial encounter Status: Acute Assessment and Plan: Dehiscence due to falls. Has stover, well fitting stump protector. (2) Dehiscence of amputation stump: Code(s): T87.81 - Dehiscence of amputation stump Status: Acute Assessment and Plan: Continue home wound care with HHN and visits to [facility]. Dr to see in one month. (3) COPD mixed type: Code(s): J44.9 - Chronic obstructive pulmonary disease, unspecified Status: Chronic Additional Plan Prior heavy smoker. Exam Narrative: Exam Narrative: Left below knee stump examined. Pt has fallen a couple times since his BKA. Has been discharged from Rehab and is back at his home. Dressings compliance is questionable. No cellulitis. Distal wound separation. Bone accessible to Cotton applicator. Serous drainage. Most of wound is healed. Dimensions 4.3 x 1.5 x 1.2 cm. X-ray today shows no bone erosion suggestive of osteomyelitis.
--- NOTE | ~2021-02-14 | XR_ITS ---
XR knee LT 2V DATE: 01/17/2021 12:48 INDICATION: Blunt exposure. Evaluate for ostium myelitis TECHNIQUE: AP and crosstable lateral views COMPARISON: Numerous to left knee FINDINGS: Status post below-knee amputation of the left lower extremity. No fracture or dislocation or joint effusion is detected. No periosteal reaction or bone destruction is evident. IMPRESSION: Status post below-knee amputation; no radiographic evidence of osteomyelitis is detected Reviewed, dictated and finalized at location B. IMPRESSION: Status post below-knee amputation; no radiographic evidence of oste omyelitis is detected
--- NOTE | 2021-03-14 12:15 | PCWOUND ---
WOCN NOTE patient called to cancel due to ride problems.
--- NOTE | 2021-03-21 12:56 | PCWOUND ---
WOCN NOTE patient called to cancel appointment, due to no transportation. Nunu Mason from [facility] stopped by office, states that she had seen wound last week, took photo, based on photo it does not appear that the wound is open and per Nunu the dressing is dry. They would like to state using the traffic circuit engineer to amputation. Spoke with Dr. Tompkins office and verbal order was given to start traffic circuit engineer. Call was made to Nunu with update. voicemail left.
== END 2021-04-17 23:59 | disposition home or self-care (01) ==
LOC: ANHWOC 07:27
PROVIDERS: PCP Emergency Medicine; Visit Provider Plastic Surgery
DX: Z47.81 Encounter for orthopedic aftercare following surgical amputation (principal); T87.81 Dehiscence of amputation stump; Z89.512 Acquired absence of left leg below knee
CPT/HCPCS: 73560; 99213; G0463

== ENCOUNTER 2021-04-18 12:41 | Inpatient (IN) | payer MEDICARE, MEDICAID, SELFPAY ==
[2021-04-18] VITALS (8 sets, daily range): BP systolic 129–168; BP diastolic 59–91; PULSE 75–96; RESP 12–22; TEMP 36–36.9; O2SAT 97–100; BMI 23.7
--- NOTE | ~2021-04-18 | CT_ITS ---
EXAMINATION: CT abdomen pelvis w con DATE: 04/18/2021 16:28 INDICATION: Generalized abdominal pain. Vomiting. TECHNIQUE: Computed tomography (CT) of the abdomen and pelvis was performed with 100 mL Omnipaque 350 intravenous contrast. Automated exposure control and iterative reconstruction technique were employe d. The dose-length product was 623.07 mGy-cm. COMPARISON: CT pelvis 07/30/2017 FINDINGS: The visualized portions of the lung bases demonstrate mild rounded atelectasis in right low er lobe. Right-sided pleural thickening is noted. No pleural effusion. The heart size is normal. Ther e are calcifications of the aortic valve. No pericardial effusion. The liver, spleen, gallbladder, an d adrenal glands are normal. Pancreas divisum is noted. The pancreatic duct is mildly dilated in the head of the pancreas. There is fat stranding around the head of the pancreas, consistent with pancrea titis. There is cortical thinning of the kidneys. There is diverticulosis of the colon without eviden ce of diverticulitis. The appendix is normal. There is a total right hip arthroplasty. Again seen is osteonecrosis of left femoral head. There are old left rib fractures. There are chronic burst fractur es of T12 and L1. There is mild lumbar spondylosis. IMPRESSION: 1. Mild findings of acute versus chronic pancreatitis. Reviewed, dictated and finalized at location A.
[2021-04-18 13:22] LABS: Basophils Absolute Auto 0.1 K/mm3 (0.0-0.1); Basophils Percent Auto 0.4 % (0.2-1.2); Eosinophils Absolute Auto 0.2 K/mm3 (0-0.3); Eosinophils Percent Auto 0.9 % (0-4.4); Hematocrit 42.9 % (42.0-52.0); Hemoglobin 13.4 g/dL (14.0-18.0); Immature Granulocyte Absolute 0.13 K/mm3 (0.00-0.031); Immature Granulocyte Percent A 0.8 % (0-0.5); Lymphocytes Absolute Auto 1.09 K/mm3 (0.9-3.2); Lymphocytes Percent Auto 6.6 % (18.3-44.2); Mean Corpuscular HGB Conc 31.2 g/dl (32-36); Mean Corpuscular Hemoglobin 23.4 pg (26-34); Mean Corpuscular Volume 74.9 fl (80-100); Mean Platelet Volume 8.9 fl (7.4-10.4); Monocytes Absolute Auto 1.4 K/mm3 (0.1-0.6); Monocytes Percent Auto 8.4 % (2.6-8.5); Neutrophils Absolute Auto 13.7 K/mm3 (1.3-6.7); Neutrophils Percent Auto 82.9 % (45.5-73.1); Platelet Count Result 285 k/mm3 (150-375); Red Blood Count 5.73 M/mm3 (4.6-6.20); Red Cell Distribution Width 19.3 % (11.5-14.5); White Blood Count 16.5 K/mm3 (4.5-10.0)
[2021-04-18 13:33] LABS: Alanine Aminotransferase 9 U/L (4-50); Alkaline Phosphatase 141 U/L (38-126); Anion Gap 11 mmol/L (8-16); Aspartate Amino Transferase 24 U/L (17-59); Bilirubin,Total 0.5 mg/dL (0.2-1.3); Blood Urea Nitrogen 23 mg/dL (9-20); Calcium 8.6 mg/dL (8.4-10.2); Carbon Dioxide 13 mmol/L (22-30); Chloride 101 mmol/L (98-107); Estimated CRCL calculation 41 ml/min; Estimated Glomerular Filt Rate 46; Glucose 131 mg/dL (75-110); Lipase 66 U/L (23-300); Potassium 3.7 mmol/L (3.4-5.0); Sodium 125 mmol/L (137-145)
--- NOTE | 2021-04-18 15:11 | PC.NURSE ---
Wound Care called for patient per Joi request, wound care will come to ED and evaluate patient
--- NOTE | 2021-04-18 16:31 | ED.GENADULT ---
HPI - General Adult General Chief complaint: Abdominal Pain Stated complaint: Abd Pain/Diarrhea Time Seen by Provider: 04/18/21 15:27 Source: patient History of Present Illness HPI narrative: Patient is a 75 y/o male complaining of generalized abdominal pain starting several days ago. He describes his pain as aching and rates it as 5-7/10. There is no known alleviating or exacerbating factor. He has been having diarrhea for several day. He had vomiting a few days ago, but no vomiting today. He admits that he drinks heavily. Related Data Home Medications Medication Instructions Recorded Confirmed acetaminophen 1,000 mg PO Q6-8H PRN 12/02/20 04/18/21 aspirin 325 mg PO DAILY 12/02/20 04/18/21 folic acid 1 mg PO DAILY 12/02/20 04/18/21 gabapentin 100 mg PO TID 04/18/21 04/18/21 metoprolol tartrate 25 mg PO BID 04/18/21 04/18/21 Allergies Allergy/AdvReac Type Severity Reaction Status Date / Time niacin Allergy Intermediate Rash/itchin Verified 04/18/21 21:42 g hydrocodone [From [facility]] AdvReac Confusion Verified 04/18/21 21:42 Review of Systems Constitutional: Constitutional: Denies chills, Denies fever(s), Denies headache(s) and Denies weakness Eyes: Eyes: Denies blurry vision ENT: Denies headache(s) and Denies neck pain Cardiovascular: Cardiovascular: Denies chest pain and Denies dyspnea Respiratory: Respiratory: Denies cough and Denies dyspnea Gastrointestinal: Gastrointestinal: Reports abdominal pain, Reports diarrhea, Reports nausea and Reports vomiting Genitourinary: Genitourinary: Denies hematuria and Denies dysuria Musculoskeletal: Musculoskeletal: Denies back pain and Denies neck pain Neurologic: Denies headache(s) and Denies weakness [facility] Past Medical History Medical History Alcohol abuse Anxiety Asthma Benign prostatic hyperplasia Cerebrovascular accident Chronic anemia Chronic obstructive pulmonary disease Chronic respiratory failure with hypoxia, on home O2 therapy Depression Diabetic peripheral neuropathy Diastolic congestive heart failure Former smoker Gastroesophageal reflux disease Hearing loss Hypertension Ichthyosis vulgaris Irritable bowel syndrome Mixed hyperlipidemia Osteoarthritis Osteomyelitis History of osteomyelitis of both feet requiring multiple amputations. Persistent atrial fibrillation Not on long-term anticoagulation. Takes aspirin 325 mg daily. Sacrum and coccyx fracture Type 2 diabetes mellitus Diet-controlled. Hemoglobin A1c was 6.0 in June 2020. Surgical History Surgical History History of bilateral cataract extraction History of incision and drainage Right hip abscess. History of left below knee amputation 11/17/[address] Heaton History of tonsillectomy History of total right hip arthroplasty (~2002) History of transmetatarsal amputation of left foot (~2019) History of transmetatarsal amputation of right foot (~2016) History of ventral hernia repair (~2006) Family History Family History Mother Patient's mother is , Onset Age: 31 Father Suicide Social History Social History (Updated 04/18/21 @ 21:59 by Kylah Branham RN) Social History: The patient lives in [place] in an apartment. Director Of Casework Services comes for a few hours a day Saturday through Saturday. He gets Meals on wheels. Has continued to refuse assisted living and the like. He is . 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 Smoked a pack of cigarettes per day for 58 years and quit in December of 2018. He has a history of alcohol abuse although he says he is not drinking much anymore. No illicit substance use, he used marijuana previously. He designates his daughter, Adwoa Xiong, as his surrogate decision maker and he wishes to be a full code. Smoking packs per
[2021-04-18 17:42] LABS: Add Urine Microscopic? YES; Appearance Urine Clear (Clear); Bilirubin Urine Negative (Negative); Blood Urine Negative (Negative); Color Urine Yellow (Yellow); Glucose Urine UA Negative (Negative); Ketones Urine Trace mg/dL (Negative); Leukocyte Esterase Ur Negative LEU/UL (Negative); Nitrate Urine Negative (Negative); Protein Urine 2+ mg/dL (Negative); RBC Urine 0-2 /hpf (0-2); Specific Grav Ur 1.023 (1.001-1.035); Urobilinogen Urine Negative mg/dL (<2.0); WBC Urine 0-3 /hpf
[2021-04-18] MEDS: SODIUM CHLORIDE 0.9% IV 1,000 ML 999 ML IV CONT (18:12)
[2021-04-18] MEDS: MORPHINE SULFATE (*CRX) 2 MG/ML INJ IV PUSH ×3 (18:13→22:03)
--- NOTE | 2021-04-18 19:57 | PC.NURSE ---
Called [facility] and gave report to Anum MILLER, states room is being cleaned at this time, will notify this RN when room is ready. registered nurse fetal made aware. Pt on tele monitor w/ lights dimmed, pain addressed, VSS.
--- NOTE | 2021-04-18 21:26 | ADMGEN ---
This patient, Ludin Mcguire, was admitted to Medical Room 345-01. Patient/family oriented to hospital policies and general routines including ID bracelet, bed and alarms, visiting hours, pain management, procedures, bathroom and other care routines, personal items, smoking policy, room service/diet, and visiting hours. Information on how to activate the Rapid Response Team has been discussed. Patient/Family are encouraged to report perceived risks to care and to ask questions if they do not understand what they are told or what they should do.
[2021-04-18] MEDS: SODIUM CHLORIDE 0.9% IV 1,000 ML 125 ML IV CONT (21:32)
--- NOTE | 2021-04-19 00:24 | PM.IMHP ---
H&P: HPI History of Present Illness Date/Time: 04/18/21 [id number] this is a 75-year-old male patient has a history of alcoholism. The patient lives home alone. He does have some caregivers coming in their occasionally. The patient stated that he was having some any Coumadin do a dressing change to his left [id number] amputation however that has healed up and no longer requires a drastic. The patient states that he does occasionally drink. He had 6 beers just a couple days ago. The patient came to the emergency room today with complaints of some abdominal discomfort. CT of the abdomen and pelvis was read as mild findings of acute versus chronic pancreatitis. IV fluids were started. Sodium level was 125 which is typically in the 130s. Most likely secondary to his alcoholism. Creatinine 1.5 which appears to be his baseline. White count is noted to be 16.5. The patient was started on IV fluids and morphine in the emergency room patient is being admitted to inpatient services on the date of service of 04/18/2021. Chief Complaint: Abdominal pain Review of Systems Review of Systems: All systems reviewed & are unremarkable except as noted in HPI and below Constitutional: Constitutional: Reports as per HPI and Reports no additional constitutional complaints Eyes: Eyes: Reports as per HPI and Reports no additional eye complaints ENT: Reports system reviewed and no additional complaints, except as documented and Reports Normal hearing present Cardiovascular: Cardiovascular: Reports no additional cardiovascular complaints Respiratory: Respiratory: Reports no additional respiratory complaints and Reports no additional respiratory complaints Gastrointestinal: Gastrointestinal: Reports as per HPI and Reports no additional gastrointestinal complaints Musculoskeletal: Musculoskeletal: Reports no additional musculoskeletal complaints Integumentary/Breasts: Skin/Breast: Reports system reviewed and no additional complaints, except as docu and Reports as per HPI Neurologic: Reports system reviewed and no additional complaints, except as documented, Reports as per HPI and Reports Normal hearing present Psychiatric: Psychiatric: Reports no additional psychiatric complaints and Reports as per HPI Endocrine: Endocrine: Reports no additional endocrine complaints Hematologic/Lymphatic: Hematologic/Lymphatic: Reports no additional hematologic/lymphatic complaints Allergic/Immunologic: Allergic/Immunologic: Reports no additional allergic/immunologic complaints [facility] Past Medical History Medical History (Updated 04/19/21 @ 00:42 by Nahomi Rosario NP) Alcohol abuse Anxiety Asthma Benign prostatic hyperplasia Cerebrovascular accident Chronic anemia Chronic obstructive pulmonary disease Chronic respiratory failure with hypoxia, on home O2 therapy Depression Diabetic peripheral neuropathy Diastolic congestive heart failure Former smoker Gastroesophageal reflux disease Hearing loss Hypertension Ichthyosis vulgaris Irritable bowel syndrome Mixed hyperlipidemia Osteoarthritis Osteomyelitis History of osteomyelitis of both feet requiring multiple amputations. Persistent atrial fibrillation Not on long-term anticoagulation. Takes aspirin 325 mg daily. Sacrum and coccyx fracture Type 2 diabetes mellitus Diet-controlled. Hemoglobin A1c was 6.0 in June 2020. Surgical History Surgical History History of bilateral cataract extraction History of incision and drainage Right hip abscess. History of left below knee amputation 11/17/[address] Heaton History of tonsillectomy History of total right hip arthroplasty (~2002) History of transmetatarsal amputation of left foot (~2019) History of transmetatarsal amputation of right foot (~2016) History of ventral hernia repair (~2006) Family History Family History Mother
[2021-04-19 01:00] LABS: Anion Gap 11 mmol/L (8-16); Blood Urea Nitrogen 20 mg/dL (9-20); Calcium 8.3 mg/dL (8.4-10.2); Carbon Dioxide 16 mmol/L (22-30); Chloride 104 mmol/L (98-107); Estimated CRCL calculation 49 ml/min; Estimated Glomerular Filt Rate 54; Glucose 109 mg/dL (75-110); Potassium 3.5 mmol/L (3.4-5.0); Sodium 131 mmol/L (137-145)
[2021-04-19] MEDS: MORPHINE SULFATE (*CRX) 2 MG/ML INJ IV PUSH ×3 (05:48→16:18)
[2021-04-19 05:51] LABS: Basophils Percent Auto 0.3 % (0.2-1.2); Eosinophils Absolute Auto 0.1 K/mm3 (0-0.3); Eosinophils Percent Auto 0.7 % (0-4.4); Hematocrit 38.4 % (42.0-52.0); Hemoglobin 12.1 g/dL (14.0-18.0); Immature Granulocyte Absolute 0.08 K/mm3 (0.00-0.031); Immature Granulocyte Percent A 0.6 % (0-0.5); Lymphocytes Absolute Auto 0.94 K/mm3 (0.9-3.2); Lymphocytes Percent Auto 7.2 % (18.3-44.2); Mean Corpuscular HGB Conc 31.5 g/dl (32-36); Mean Corpuscular Hemoglobin 23.2 pg (26-34); Mean Corpuscular Volume 73.7 fl (80-100); Mean Platelet Volume 8.6 fl (7.4-10.4); Monocytes Absolute Auto 1.1 K/mm3 (0.1-0.6); Monocytes Percent Auto 8.7 % (2.6-8.5); Neutrophils Absolute Auto 10.8 K/mm3 (1.3-6.7); Neutrophils Percent Auto 82.5 % (45.5-73.1); Platelet Count Result 249 k/mm3 (150-375); Red Blood Count 5.21 M/mm3 (4.6-6.20); Red Cell Distribution Width 18.8 % (11.5-14.5); White Blood Count 13.1 K/mm3 (4.5-10.0)
[2021-04-19 06:00] LABS: Potassium 3.3 mmol/L (3.4-5.0)
[2021-04-19 06:08] LABS: Anion Gap 10 mmol/L (8-16); Blood Urea Nitrogen 18 mg/dL (9-20); Calcium 8.3 mg/dL (8.4-10.2); Carbon Dioxide 15 mmol/L (22-30); Chloride 105 mmol/L (98-107); Estimated CRCL calculation 53 ml/min; Estimated Glomerular Filt Rate 59; Glucose 114 mg/dL (75-110); Lipase 94 U/L (23-300); Sodium 130 mmol/L (137-145)
[2021-04-19 06:11] VITALS: BP 119/74; PULSE 77; RESP 24; TEMP 36.2; O2SAT 96
[2021-04-19] MEDS: predniSONE 2.5 MG TABLET PO (08:33)
[2021-04-19] MEDS: ASPIRIN 325 MG ENTERIC TABLET PO (08:33)
[2021-04-19 08:34] VITALS: PULSE 70
[2021-04-19] MEDS: METOPROLOL TARTRATE 25 MG TABLET PO ×2 (08:34→20:45)
[2021-04-19] MEDS: GABAPENTIN 100 MG CAPSULE PO ×3 (08:35→16:17)
[2021-04-19] MEDS: SERTRALINE HCL 50 MG TABLET PO (08:35)
[2021-04-19] MEDS: FAMOTIDINE 20 MG/2 ML VIAL IV PUSH ×2 (08:37→20:45)
[2021-04-19] MEDS: FOLIC ACID 1 MG/0.2 ML INJ IV PUSH (08:41)
[2021-04-19 08:42] LABS: Sodium Urine Random < 5 meq/L
[2021-04-19] MEDS: SODIUM CHLORIDE 0.9% IV 1,000 ML 125 ML IV CONT (08:52)
[2021-04-19] MEDS: POTASSIUM CHLORIDE 20 MEQ TABLET 40 MEQ PO (12:09)
[2021-04-19 15:49] VITALS: BP 126/59; PULSE 63; RESP 20; TEMP 36.6; O2SAT 99
[2021-04-19] MEDS: LORazepam INJ (*CRX) 2 MG/ML VIAL 0.5 MG IV PUSH (16:18)
--- NOTE | 2021-04-19 17:57 | PM.IMPN ---
Progress Note: A&P Assessment and Plan (1) Pancreatitis: Qualifiers: Chronicity: chronic Pancreatitis type: alcohol induced Qualified Code(s): K86.0 - Alcohol-induced chronic pancreatitis Code(s): K85.90 - Acute pancreatitis without necrosis or infection, unspecified Status: Acute Assessment and Plan: The patient stated that he did drink alcohol couple days ago. I explained him that that he needs to give up the alcohol drinks. Check lipase in the a.m.. Patient is not having any discomfort at this time. Continue with IV fluids. Continue with pain medication. The patient does not appear to be in any distress. 04/19/21 17:57 his is a 75-year-old male patient has a history of alcoholism. The patient lives home alone. He does have some caregivers coming in their occasionally. The patient stated that he was having some any Coumadin do a dressing change to his left decgk-pwh-wcfm amputation however that has healed up and no longer requires a drastic. The patient states that he does occasionally drink. He had 6 beers just a couple days ago. The patient came to the emergency room today with complaints of some abdominal discomfort. CT of the abdomen and pelvis was read as mild findings of acute versus chronic pancreatitis. IV fluids were started. Sodium level was 125 which is typically in the 130s. Most likely secondary to his alcoholism. Creatinine 1.5 which appears to be his baseline. White count is noted to be 16.5. The patient was started on IV fluids and morphine in the emergency room patient is being admitted to inpatient services on the date of service of 04/18/2021. 04/19 patient is well-known to the hospitalist service with history of alcohol abuse and hyponatremia patient presented abdominal is found to have pancreatitis however patient lipase is normal, currently patient denies any abdominal pain nausea or vomiting fever or chills, will gently hydrate the patient, will monitor electrolytes, will place the patient on [facility] upper, patient has a bilateral ptngz-trc-augk amputation, will have a PT OT evaluate and further recommendation to follow. (2) Hyponatremia: Code(s): E87.1 - Hypo-osmolality and hyponatremia Status: Acute Assessment and Plan: check it urine osmolarity. The patient has a history of alcoholism and is typically low anywhere. I will check another BMP now and again in the a.m.. (3) Anxiety: Code(s): F41.9 - Anxiety disorder, unspecified Status: Acute Assessment and Plan: P.r.n. IV Ativan (4) Chronic anemia: Code(s): D64.9 - Anemia, unspecified Status: Acute Assessment and Plan: above his baseline. Continue to monitor. (5) Persistent atrial fibrillation: Code(s): I48.19 - Other persistent atrial fibrillation Status: Acute Assessment and Plan: Continue with his daily aspirin and metoprolol. Subjective Date/time seen: 04/19/21 17:57 his is a 75-year-old male patient has a history of alcoholism. The patient lives home alone. He does have some caregivers coming in their occasionally. The patient stated that he was having some any Coumadin do a dressing change to his left qejjn-fhr-rkrm amputation however that has healed up and no longer requires a drastic. The patient states that he does occasionally drink. He had 6 beers just a couple days ago. The patient came to the emergency room today with complaints of some abdominal discomfort. CT of the abdomen and pelvis was read as mild findings of acute versus chronic pancreatitis. IV fluids were started. Sodium level was 125 which is typically in the 130s. Most likely secondary to his alcoholism. Creatinine 1.5 which appears to be his baseline. White count is noted to be 16.5. The patient was started on IV fluids and morphine in the emergency room patient is being admitted to inpatient services on the date of service of 04/18/2021. 04/19 patient is
[2021-04-19 20:42] VITALS: BP 125/76; PULSE 79; RESP 18; TEMP 35.9; O2SAT 99
[2021-04-19 20:45] VITALS: PULSE 60
[2021-04-19] MEDS: ALPRAZolam (*CRX) 0.5 MG TABLET BY MOUTH (20:45)
[2021-04-20] MEDS: SODIUM CHLORIDE 0.9% IV 1,000 ML 125 ML IV CONT (02:40)
[2021-04-20 05:39] VITALS: BP 131/65; PULSE 53; RESP 18; TEMP 36; O2SAT 99
[2021-04-20 06:00] LABS: Hemoglobin 10.7 g/dL (14.0-18.0); Mean Corpuscular HGB Conc 31.5 g/dl (32-36); Mean Corpuscular Hemoglobin 23.5 pg (26-34); Mean Corpuscular Volume 74.7 fl (80-100); Mean Platelet Volume 9.1 fl (7.4-10.4); Platelet Count Result 230 k/mm3 (150-375); Red Blood Count 4.55 M/mm3 (4.6-6.20); Red Cell Distribution Width 19.1 % (11.5-14.5); White Blood Count 9.1 K/mm3 (4.5-10.0)
[2021-04-20 06:09] LABS: Alanine Aminotransferase 8 U/L (4-50); Albumin Level 2.9 g/dL (3.5-5.1); Alkaline Phosphatase 91 U/L (38-126); Anion Gap 7 mmol/L (8-16); Aspartate Amino Transferase 20 U/L (17-59); Bilirubin,Total 0.2 mg/dL (0.2-1.3); Blood Urea Nitrogen 14 mg/dL (9-20); Calcium 7.8 mg/dL (8.4-10.2); Carbon Dioxide 14 mmol/L (22-30); Chloride 114 mmol/L (98-107); Estimated CRCL calculation 57 ml/min; Estimated Glomerular Filt Rate > 60; Glucose 97 mg/dL (75-110); Lipase 91 U/L (23-300); Potassium 3.6 mmol/L (3.4-5.0); Sodium 135 mmol/L (137-145)
[2021-04-20] MEDS: GABAPENTIN 100 MG CAPSULE PO (08:37)
[2021-04-20 08:38] VITALS: PULSE 68
[2021-04-20] MEDS: ASPIRIN 325 MG ENTERIC TABLET PO (08:38)
[2021-04-20] MEDS: predniSONE 2.5 MG TABLET PO (08:38)
[2021-04-20] MEDS: METOPROLOL TARTRATE 25 MG TABLET PO (08:38)
[2021-04-20] MEDS: SERTRALINE HCL 50 MG TABLET PO (08:39)
[2021-04-20] MEDS: FAMOTIDINE 20 MG/2 ML VIAL IV PUSH (08:40)
[2021-04-20] MEDS: FOLIC ACID 1 MG/0.2 ML INJ IV PUSH (08:40)
--- NOTE | 2021-04-20 11:05 | PM.DS ---
DS: Admitting Diagnosis Admitting Diagnosis Admitting Diagnosis: Chief Complaint: Abdominal pain DS: Discharge Diagnosis Discharge Diagnosis (1) Pancreatitis: Qualifiers: Chronicity: chronic Pancreatitis type: alcohol induced Qualified Code(s): K86.0 - Alcohol-induced chronic pancreatitis Code(s): K85.90 - Acute pancreatitis without necrosis or infection, unspecified Status: Acute Assessment and Plan: The patient stated that he did drink alcohol couple days ago. I explained him that that he needs to give up the alcohol drinks. Check lipase in the a.m.. Patient is not having any discomfort at this time. Continue with IV fluids. Continue with pain medication. The patient does not appear to be in any distress. 04/19/21 17:57 his is a 75-year-old male patient has a history of alcoholism. The patient lives home alone. He does have some caregivers coming in their occasionally. The patient stated that he was having some any Coumadin do a dressing change to his left yhvsg-ztn-ecur amputation however that has healed up and no longer requires a drastic. The patient states that he does occasionally drink. He had 6 beers just a couple days ago. The patient came to the emergency room today with complaints of some abdominal discomfort. CT of the abdomen and pelvis was read as mild findings of acute versus chronic pancreatitis. IV fluids were started. Sodium level was 125 which is typically in the 130s. Most likely secondary to his alcoholism. Creatinine 1.5 which appears to be his baseline. White count is noted to be 16.5. The patient was started on IV fluids and morphine in the emergency room patient is being admitted to inpatient services on the date of service of 04/18/2021. 04/19 patient is well-known to the hospitalist service with history of alcohol abuse and hyponatremia patient presented abdominal is found to have pancreatitis however patient lipase is normal, currently patient denies any abdominal pain nausea or vomiting fever or chills, will gently hydrate the patient, will monitor electrolytes, will place the patient on [facility] upper, patient has a bilateral azmbe-ced-pajk amputation, will have a PT OT evaluate and further recommendation to follow. (2) Hyponatremia: Code(s): E87.1 - Hypo-osmolality and hyponatremia Status: Acute Assessment and Plan: check it urine osmolarity. The patient has a history of alcoholism and is typically low anywhere. I will check another BMP now and again in the a.m.. (3) Anxiety: Code(s): F41.9 - Anxiety disorder, unspecified Status: Acute Assessment and Plan: P.r.n. IV Ativan (4) Chronic anemia: Code(s): D64.9 - Anemia, unspecified Status: Acute Assessment and Plan: above his baseline. Continue to monitor. (5) Persistent atrial fibrillation: Code(s): I48.19 - Other persistent atrial fibrillation Status: Acute Assessment and Plan: Continue with his daily aspirin and metoprolol. DS: Summary Hospital Course Reason for hospitalization: this is a 75-year-old male patient has a history of alcoholism. The patient lives home alone. He does have some caregivers coming in their occasionally. The patient stated that he was having some any Coumadin do a dressing change to his left qwciv-dfk-dmmb amputation however that has healed up and no longer requires a drastic. The patient states that he does occasionally drink. He had 6 beers just a couple days ago. The patient came to the emergency room today with complaints of some abdominal discomfort. CT of the abdomen and pelvis was read as mild findings of acute versus chronic pancreatitis. IV fluids were started. Sodium level was 125 which is typically in the 130s. Most likely secondary to his alcoholism. Creatinine 1.5 which appears to be his baseline. White count is noted to be 16.5. The patient was started on IV fluids and morphine in t
[2021-04-22 06:07] LABS: Osmolality, Urine 361 mOsm/kg (50-1200)
== END 2021-04-20 12:50 | disposition home health service (06) | DRG 439 ==
LOC: ANHED 15:55 → ANH3MED 21:13
PROVIDERS: Nurse Practitioner; Admitting Provider Emergency Medicine; Emergency Provider Emergency Medicine; PCP Emergency Medicine; Visit Provider Family Medicine
DX: K85.20 Alcohol induced acute pancreatitis without necrosis or infection (principal); E87.1 Hypo-osmolality and hyponatremia; I48.19 Other persistent atrial fibrillation; J96.11 Chronic respiratory failure with hypoxia; I50.32 Chronic diastolic (congestive) heart failure; K86.0 Alcohol-induced chronic pancreatitis; I11.0 Hypertensive heart disease with heart failure; E11.42 Type 2 diabetes mellitus with diabetic polyneuropathy; F41.9 Anxiety disorder, unspecified; F32.9 Major depressive disorder, single episode, unspecified; D64.9 Anemia, unspecified; F10.20 Alcohol dependence, uncomplicated; J44.9 Chronic obstructive pulmonary disease, unspecified; K21.9 Gastro-esophageal reflux disease without esophagitis; K58.9 Irritable bowel syndrome, unspecified; M19.90 Unspecified osteoarthritis, unspecified site; N40.0 Benign prostatic hyperplasia without lower urinary tract symptoms; E78.2 Mixed hyperlipidemia; Z89.512 Acquired absence of left leg below knee; Z79.82 Long term (current) use of aspirin; Z86.73 Personal history of transient ischemic attack (TIA), and cerebral infarction without residual deficits; Z87.891 Personal history of nicotine dependence; Z99.81 Dependence on supplemental oxygen; Z98.42 Cataract extraction status, left eye; Z98.41 Cataract extraction status, right eye; Z96.641 Presence of right artificial hip joint
CPT/HCPCS: 36415; 74177; 80048; 80053; 81001; 83690; 83735; 83930; 83935; 84300; 84443; 85025; 85027; 96361; 96374; 96376; 97165; 99285; A9270; G0378; J2060; J2270; J7030; Q9967

== ENCOUNTER 2021-06-07 12:08 | Inpatient (IN) | payer OTHER, MEDICAID, SELFPAY ==
[2021-06-07] VITALS (13 sets, daily range): BP systolic 106–157; BP diastolic 61–82; PULSE 45–100; RESP 14–22; TEMP 36.3–37.2; O2SAT 95–100; BMI 26.9
--- NOTE | ~2021-06-07 | XR_ITS ---
EXAMINATION: XR chest 2V DATE: 06/07/2021 12:33 INDICATION: Shortness of breath TECHNIQUE: AP and lateral views of the chest are obtained. COMPARISON: 10/24/2020 FINDINGS: There are airspace opacities of the mid and lower lung zones. There is no pleural effusion or pneumothorax. The cardiomediastinal silhouette is normal. There are unchanged burst fractures at T 12 and L1. IMPRESSION: 1. Airspace opacities of the mid and lower lung zones, consistent with atelectasis versus pneumonia v ersus pulmonary edema. Reviewed, dictated and finalized at location B. IMPRESSION: 1. Airspace opacities of the mid and lower lung zones, consistent with atelecta sis versus pneumonia versus pulmonary edema.
--- NOTE | 2021-06-07 12:17 | ECG_ITS ---
Measurements Intervals [place] Rate: 53 P: KS: 0 QRS: 30 QRSD: 81 T: 14 QT: 433 QTc: 407 Interpretive Statements ATRIAL FIBRILLATION WITH SLOW VENTRICULAR RESPONSE LOW QRS VOLTAGE- DIFFUSE LEADS ANTEROSEPTAL INFARCT, AGE INDETERMINATE BORDERLINE T WAVE ABNORMALITY- INFERIOR LEADS BASELINE ARTIFACT- I, AVL, V2-V6 ABNORMAL ECG Electronically Signed On 06-07-2021 13:28:38 CDT by Yahir Lopez D.O.
[2021-06-07 12:58] LABS: Basophils Percent Auto 0.4 % (0.2-1.2); Eosinophils Absolute Auto 0.1 K/mm3 (0-0.3); Eosinophils Percent Auto 1.1 % (0-4.4); Hematocrit 35.7 % (42.0-52.0); Hemoglobin 10.5 g/dL (14.0-18.0); Immature Granulocyte Absolute 0.05 K/mm3 (0.00-0.031); Immature Granulocyte Percent A 0.7 % (0-0.5); Lymphocytes Absolute Auto 0.83 K/mm3 (0.9-3.2); Lymphocytes Percent Auto 11.8 % (18.3-44.2); Mean Corpuscular HGB Conc 29.4 g/dl (32-36); Mean Corpuscular Hemoglobin 23.4 pg (26-34); Mean Corpuscular Volume 79.5 fl (80-100); Mean Platelet Volume 8.7 fl (7.4-10.4); Monocytes Absolute Auto 0.6 K/mm3 (0.1-0.6); Monocytes Percent Auto 8.4 % (2.6-8.5); Neutrophils Absolute Auto 5.4 K/mm3 (1.3-6.7); Neutrophils Percent Auto 77.6 % (45.5-73.1); Platelet Count Result 169 k/mm3 (150-375); Red Blood Count 4.49 M/mm3 (4.6-6.20); Red Cell Distribution Width 16.8 % (11.5-14.5)
[2021-06-07 13:13] LABS: Anion Gap 9 mmol/L (8-16); Blood Urea Nitrogen 22 mg/dL (9-20); Calcium 8.5 mg/dL (8.4-10.2); Carbon Dioxide 23 mmol/L (22-30); Chloride 104 mmol/L (98-107); Estimated CRCL calculation 53 ml/min; Estimated Glomerular Filt Rate 59; Glucose 106 mg/dL (65-110); Potassium 4.2 mmol/L (3.4-5.0); Sodium 136 mmol/L (137-145)
[2021-06-07] MEDS: FUROSEMIDE INJ 40 MG/4 ML VIAL IV PUSH (13:34)
--- NOTE | 2021-06-07 13:56 | PC.NURSE ---
called Leonor nielsen, added on BNP
[2021-06-07 14:53] LABS: NT Pro B Type Natriuretic Pept 3020 pg/mL (5-100)
--- NOTE | 2021-06-07 17:05 | ED.SOB ---
HPI - SOB/Dyspnea General Chief Complaint: Shortness of Breath/Dyspnea Stated Complaint: DIFFICULTY BREATHING Time Seen by Provider: 06/07/21 12:08 Source: patient Mode of arrival: EMS Limitations: no limitations History of Present Illness HPI Narrative: 75-year-old with a history of COPD on 3 L oxygen at home, hypertension,diabetes and atrial fibrillation with slow ventricular response here with complaints of shortness of breath since this morning. Patient states that he was feeling anxious he had 2 beers which did not help. Had 2 shots of vodka which did not help him with his shortness of breath so finally called ambulance and is here. Patient denies any chest pain, fever or chills. Denies any cough. Patient states he has been taking his home medication. He also states that he lives by himself. MD elicited complaint: shortness of breath Pertinent past history: COPD, congestive heart failure and diabetes Onset (ago): day(s) (1) Timing: constant Severity: moderate Exacerbating factors: nothing Known history of: COPD and congestive heart failure Related Data Home oxygen amount: 3 liters Home Medications Medication Instructions Recorded Confirmed acetaminophen 1,000 mg PO Q6-8H PRN 12/02/20 04/25/21 aspirin 325 mg PO DAILY 12/02/20 04/25/21 folic acid 1 mg PO DAILY 12/02/20 04/25/21 metoprolol tartrate 25 mg PO BID 04/18/21 04/25/21 Allergies Allergy/AdvReac Type Severity Reaction Status Date / Time niacin Allergy Intermediate Rash/itchin Verified 06/07/21 12:18 g hydrocodone [From [place]] AdvReac Confusion Verified 06/07/21 12:18 Review of Systems Review of Systems: All systems reviewed & are unremarkable except as noted in HPI and below Constitutional: Constitutional: Reports no additional constitutional complaints Eyes: Eyes: Reports no additional eye complaints ENT: Reports system reviewed and no additional complaints, except as documented Cardiovascular: Cardiovascular: Reports no additional cardiovascular complaints Respiratory: Respiratory: Reports as per HPI Gastrointestinal: Gastrointestinal: Reports no additional gastrointestinal complaints Musculoskeletal: Musculoskeletal: Reports no additional musculoskeletal complaints Neurologic: Reports system reviewed and no additional complaints, except as documented PMF Past Medical History Medical History Alcohol abuse Anxiety Asthma Benign prostatic hyperplasia Cerebrovascular accident Chronic anemia Chronic obstructive pulmonary disease Chronic respiratory failure with hypoxia, on home O2 therapy Depression Diabetic peripheral neuropathy Diastolic congestive heart failure Former smoker Gastroesophageal reflux disease Hearing loss Hypertension Ichthyosis vulgaris Irritable bowel syndrome Mixed hyperlipidemia Osteoarthritis Osteomyelitis History of osteomyelitis of both feet requiring multiple amputations. Persistent atrial fibrillation Not on long-term anticoagulation. Takes aspirin 325 mg daily. Sacrum and coccyx fracture Type 2 diabetes mellitus Diet-controlled. Hemoglobin A1c was 6.0 in June 2020. Surgical History Surgical History History of bilateral cataract extraction History of incision and drainage Right hip abscess. History of left below knee amputation 11/17/[address] Heaton History of tonsillectomy History of total right hip arthroplasty (~2002) History of transmetatarsal amputation of left foot (~2019) History of transmetatarsal amputation of right foot (~2016) History of ventral hernia repair (~2006) Family History Family History Mother Patient's mother is , Onset Age: 31 Father Suicide Social History Social History Social History: The patient lives i
--- NOTE | 2021-06-07 18:26 | ADMGEN ---
This patient, Ludin Mcguire, was admitted to Medical Room 348-01. Patient/family oriented to hospital policies and general routines including ID bracelet, bed and alarms, visiting hours, pain management, procedures, bathroom and other care routines, personal items, smoking policy, room service/diet, and visiting hours. Information on how to activate the Rapid Response Team has been discussed. Patient/Family are encouraged to report perceived risks to care and to ask questions if they do not understand what they are told or what they should do.
[2021-06-07 20:46] LABS: Glucose Point of Care 161 mg/dl (65-105)
--- NOTE | 2021-06-07 21:48 | PM.IMHP ---
H&P: HPI History of Present Illness Date/Time: 06/07/21 21:48 Chief Complaint: shortness of breath Narrative: 75-year-old with a history of COPD on 3 L oxygen at home, hypertension,diabetes and atrial fibrillation with slow ventricular response here with complaints of shortness of breath since past few days. He gets nebulizer treatment and feels get better with that. He has been getting more nebulizer treatments in the past few days. He denies any chest pain fever or chills. He does report some on and off cough which is chronic with no new change. He also reports he fell this morning and bumped his leg without any obvious injury Review of Systems Review of Systems: - CONSTITUTIONAL: Denies weight loss, fever and chills. - HEENT: Denies changes in vision and hearing - RESPIRATORY: reports SOB and cough. - CV: Denies palpitations and CP. - GI: Denies abdominal pain, nausea, vomiting and diarrhea. - : Denies dysuria and urinary frequency. - MSK: Denies myalgia and joint pain. - SKIN: Denies rash and pruritus. - NEUROLOGICAL: Denies headache and syncope. - PSYCHIATRIC: Denies recent changes in mood. Denies anxiety and depression. All systems reviewed & are unremarkable except as noted in HPI and below Constitutional: Constitutional: Reports fatigue and Reports weakness Neurologic: Reports weakness Endocrine: Endocrine: Reports fatigue PMFSH Past Medical History Medical History Alcohol abuse Anxiety Asthma Benign prostatic hyperplasia Cerebrovascular accident Chronic anemia Chronic obstructive pulmonary disease Chronic respiratory failure with hypoxia, on home O2 therapy Depression Diabetic peripheral neuropathy Diastolic congestive heart failure Former smoker Gastroesophageal reflux disease Hearing loss Hypertension Ichthyosis vulgaris Irritable bowel syndrome Mixed hyperlipidemia Osteoarthritis Osteomyelitis History of osteomyelitis of both feet requiring multiple amputations. Persistent atrial fibrillation Not on long-term anticoagulation. Takes aspirin 325 mg daily. Sacrum and coccyx fracture Type 2 diabetes mellitus Diet-controlled. Hemoglobin A1c was 6.0 in June 2020. Surgical History Surgical History History of bilateral cataract extraction History of incision and drainage Right hip abscess. History of left below knee amputation 11/17/[address] Heaton History of tonsillectomy History of total right hip arthroplasty (~2002) History of transmetatarsal amputation of left foot (~2019) History of transmetatarsal amputation of right foot (~2016) History of ventral hernia repair (~2006) Family History Family History Mother Patient's mother is , Onset Age: 31 Father Suicide Social History Social History (Updated 06/07/21 @ 20:08 by Kylah Branham RN) Social History: The patient lives in [place] in an apartment. He gets Meals on wheels. Has continued to refuse assisted living and the like. He is . 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 Smoked a pack of cigarettes per day for 58 years and quit in December of 2018. He has a history of alcohol abuse although he says he is not drinking much anymore. No illicit substance use, he used marijuana previously. He designates his daughter, Adwoa Xiong, as his surrogate decision maker and he wishes to be a full code. The patient stated that he has 7 children. Smoking packs per day: 1 Smoking cigarettes per day: 20.0 Years smoked: 58 Smoking pack-years: 58.00 Smoking status: Former smoker Tobacco type: cigarettes Second hand tobacco smoke exposure: Yes Smoking end date: 12/28/18 Alcohol intake: current Drinks per week: 2 Alcohol use details: Patient is a heavy drinker per jake
[2021-06-07] MEDS: IPRATROPIUM BR 0.02% INH SOLN 0.5 MG/2.5 ML VIAL INHALATION (22:07)
[2021-06-07] MEDS: ALBUTEROL SULFATE NEB 2.5 MG/0.5 ML INH 5 MG INHALATION (22:07)
[2021-06-07] MEDS: GABAPENTIN 100 MG CAPSULE BY MOUTH (23:29)
[2021-06-07] MEDS: SERTRALINE HCL 50 MG TABLET PO (23:29)
[2021-06-07] MEDS: METOPROLOL TARTRATE 25 MG TABLET PO (23:29)
[2021-06-08] VITALS (20 sets, daily range): BP systolic 142–152; BP diastolic 70–88; PULSE 60–105; RESP 14–20; TEMP 36–36.4; O2SAT 98–100
--- NOTE | 2021-06-08 | ECHO_ITS ---
Patient Info Name: Ludin Mcguire Age: 75 years : 1945 Gender: Male Ht: 72 in Wt: 198 lbs BSA: 2.15 m2 HR: 79 bpm BP: 152 / 88 mmHg Heart Rhythm: Atrial Fibrillation Exam Date: 06/08/2021 12:52 PM Exam Location: [facility] Patient Status: Inpatient Admit Date: 06/07/2021 Staff Ordering Physician: Corky Lambert MD Platinum Smith: catalina Attending Provider: Clarisse Wyman MD Exam Type: CA echo doppler color flow Study Info Indications - CHF Complete two-dimensional, color flow and Doppler transthoracic echocardiogram is performed. Summary 1. Complete two-dimensional, color flow and Doppler transthoracic echocardiogram is performed. 2. Left ventricular systolic function is normal, estimated at 65-70%. 3. There is mildly increased left ventricular wall thickness. 4. Right atrial chamber dimension is severely enlarged. 5. Left atrial chamber dimension is mildly enlarged. 6. There is mild mitral valve regurgitation. 7. There is trace tricuspid valve regurgitation. 8. Mild pulmonary hypertension, estimated pulmonary arterial systolic pressure is 35 mmHg. 9. There is no aortic valve stenosis. Left Ventricle Left ventricular chamber dimension is normal. Left ventricular systolic function is normal, estimated at 65-70%. There is mildly increased left ventricular wall thickness. The left ventricular diastolic function is indeterminate. Right Ventricle Right ventricular chamber dimension is normal. Right ventricular systolic function is normal. Left Atria Left atrial chamber dimension is mildly enlarged. Right Atria Right atrial chamber dimension is severely enlarged. Aortic Valve The aortic valve is not well visualized. There is no aortic valve stenosis. No aortic valve regurgitation. Pulmonic Valve The pulmonic valve is not well visualized. Mitral Valve The mitral valve has normal leaflets. There is mild mitral valve regurgitation. The mitral valve annulus is mildly calcified. Tricuspid Valve The tricuspid valve leaflets are normal. There is trace tricuspid valve regurgitation. Mild pulmonary hypertension, estimated pulmonary arterial systolic pressure is 35 mmHg. Pericardium/Pleural The pericardium appears normal. There is small pericardial effusion with fibrinous material within the pericardial space. Inferior Vena Cava Normal inferior vena cava with >50% collapse upon inspiration consistent with normal right atrial pressure, 5 mmHg. Aorta The aortic root size at the sinus of Valsalva is normal. There is mild aortic atherosclerosis. Left Ventricular Outflow Tract Name Value Normal LVOT 2D LVOT Diameter 2.2 cm LVOT Doppler LVOT Peak Gradient 8 mmHg LVOT Mean Gradient 4 mmHg LVOT VTI 26 cm LVOT VTI/AV VTI Ratio 0.9 LVOT Stroke Volume 96 ml LVOT CO 21.3 l/min LVOT CI 9.9 l/min/m2 Mitral Valve
[2021-06-08] MEDS: traMADol HCL (*CRX) 50 MG TABLET PO ×4 (00:27→21:08)
[2021-06-08 02:03] LABS: Glucose Point of Care 120 mg/dl (65-105)
[2021-06-08] MEDS: ALBUTEROL SULFATE NEB 2.5 MG/0.5 ML INH 5 MG INHALATION ×4 (03:26→20:17)
[2021-06-08] MEDS: IPRATROPIUM BR 0.02% INH SOLN 0.5 MG/2.5 ML VIAL INHALATION ×4 (03:27→20:17)
[2021-06-08] MEDS: FUROSEMIDE INJ 40 MG/4 ML VIAL IV PUSH ×2 (05:28→16:57)
[2021-06-08 06:13] LABS: Basophils Percent Auto 0.3 % (0.2-1.2); Eosinophils Absolute Auto 0.1 K/mm3 (0-0.3); Eosinophils Percent Auto 0.9 % (0-4.4); Hematocrit 34.2 % (42.0-52.0); Hemoglobin 10.4 g/dL (14.0-18.0); Immature Granulocyte Absolute 0.04 K/mm3 (0.00-0.031); Immature Granulocyte Percent A 0.6 % (0-0.5); Lymphocytes Absolute Auto 0.96 K/mm3 (0.9-3.2); Lymphocytes Percent Auto 14.7 % (18.3-44.2); Mean Corpuscular HGB Conc 30.4 g/dl (32-36); Mean Corpuscular Hemoglobin 23.1 pg (26-34); Mean Corpuscular Volume 75.8 fl (80-100); Mean Platelet Volume 8.8 fl (7.4-10.4); Monocytes Absolute Auto 0.7 K/mm3 (0.1-0.6); Monocytes Percent Auto 10.4 % (2.6-8.5); Neutrophils Absolute Auto 4.8 K/mm3 (1.3-6.7); Neutrophils Percent Auto 73.1 % (45.5-73.1); Platelet Count Result 178 k/mm3 (150-375); Red Blood Count 4.51 M/mm3 (4.6-6.20); Red Cell Distribution Width 16.6 % (11.5-14.5); White Blood Count 6.6 K/mm3 (4.5-10.0)
[2021-06-08 06:22] LABS: Anion Gap 7 mmol/L (8-16); Blood Urea Nitrogen 16 mg/dL (9-20); Calcium 8.8 mg/dL (8.4-10.2); Carbon Dioxide 29 mmol/L (22-30); Chloride 99 mmol/L (98-107); Estimated CRCL calculation 69 ml/min; Estimated Glomerular Filt Rate > 60; Glucose 98 mg/dL (65-110); Potassium 3.5 mmol/L (3.4-5.0); Sodium 135 mmol/L (137-145)
--- NOTE | 2021-06-08 07:32 | P.PNIM_ITS ---
Progress Note: A&P Assessment and Plan (1) Amputation of left lower extremity below knee: Code(s): S88.112A - Complete traumatic amputation at level between knee and ankle, left lower leg, initial encounter Status: Acute Assessment and Plan: * Left BKA * Wound care if needed * PT and OT * tramadol 50 mg p.o. q.6 p.r.n. (2) Alcohol abuse: Code(s): F10.10 - Alcohol abuse, uncomplicated Status: Acute Assessment and Plan: * ED notes patient had 2 beers and 2 shots of vodka to help him with his shortness of breath * CIWA protocol * consider adding Librium * folic acid 1 mg p.o. daily * multivitamin 1 tab per day * adjust medications as needed (3) Atrial fibrillation with slow ventricular response: Code(s): I48.91 - Unspecified atrial fibrillation Status: Acute Assessment and Plan: * EKG shows AFib with slow ventricular response * current monitor shows AFib in the 80s * trend rhythm * continue home metoprolol 25 mg p.o. b.i.d. * tele monitor * adjust medications as needed (4) Acute exacerbation of CHF (congestive heart failure): Qualifiers: Heart failure type: diastolic Qualified Code(s): I50.33 - Acute on chronic diastolic (congestive) heart failure Code(s): I50.9 - Heart failure, unspecified Status: Acute Assessment and Plan: * acute on chronic probably a mix of systolic and diastolic heart failure * BNP 3020 * chest x-ray shows airspace opacities consistent with atelectasis /pneumonia/pulmonary edema * furosemide 40 mg IV b.i.d. * strict I&Os (5) Acute exacerbation of chronic obstructive pulmonary disease: Code(s): J44.1 - Chronic obstructive pulmonary disease with (acute) exacerbation Status: Acute Assessment and Plan: * patient is on a chronic 3 L nasal cannula * patient was a heavy smoker for 52 years * patient quit smoking 2 years ago * ceftriaxone 1 g IV Q 24, azithromycin 500 mg Q 24 IV * methylprednisolone 40 mg IV push b.i.d. * chronic prednisone 2.5 mg p.o. daily * supplemental oxygen * wean oxygen to maintain a sat greater than 90% * Spiriva 1 capsule daily inhalation, albuterol nebs q.6, Atrovent neb q.6 * trend SpO2 * sputum culture ordered * consider a pulmonary consult (6) Acute and chronic respiratory failure: Code(s): J96.20 - Acute and chronic respiratory failure, unspecified whether with hypoxia or hypercapnia Status: Acute (7) Pneumonia: Qualifiers: Laterality: unspecified laterality Lung location: unspecified part of lung Pneumonia type: due to unspecified organism Qualified Code(s): J18.9 - Pneumonia, unspecified organism Code(s): J18.9 - Pneumonia, unspecified organism Status: Acute Assessment and Plan: * IV antibiotics * see above (8) HLD (hyperlipidemia): Code(s): E78.5 - Hyperlipidemia, unspecified Status: Acute Assessment and Plan: * continue home simvastatin 10 mg p.o. daily * consider lipid panel in the a.m. (9) Anemia: Code(s): D64.9 - Anemia, unspecified Status: Acute Assessment and Plan: * hemoglobin hematocrit stable at this time past 10.4/34.2 * trend labs * labs in a.m. * MCV 75.8 * anemia labs in the a.m. * adjust medications to labs (10) Di
--- NOTE | 2021-06-08 07:32 | PM.IMPN ---
Progress Note: A&P Assessment and Plan (1) Amputation of left lower extremity below knee: Code(s): S88.112A - Complete traumatic amputation at level between knee and ankle, left lower leg, initial encounter Status: Acute Assessment and Plan: Left BKA Wound care if needed PT and OT tramadol 50 mg p.o. q.6 p.r.n. (2) Alcohol abuse: Code(s): F10.10 - Alcohol abuse, uncomplicated Status: Acute Assessment and Plan: ED notes patient had 2 beers and 2 shots of vodka to help him with his shortness of breath CIWA protocol consider adding Librium folic acid 1 mg p.o. daily multivitamin 1 tab per day adjust medications as needed (3) Atrial fibrillation with slow ventricular response: Code(s): I48.91 - Unspecified atrial fibrillation Status: Acute Assessment and Plan: EKG shows AFib with slow ventricular response current monitor shows AFib in the 80s trend rhythm continue home metoprolol 25 mg p.o. b.i.d. tele monitor adjust medications as needed (4) Acute exacerbation of CHF (congestive heart failure): Qualifiers: Heart failure type: diastolic Qualified Code(s): I50.33 - Acute on chronic diastolic (congestive) heart failure Code(s): I50.9 - Heart failure, unspecified Status: Acute Assessment and Plan: acute on chronic probably a mix of systolic and diastolic heart failure BNP 3020 chest x-ray shows airspace opacities consistent with atelectasis /pneumonia/pulmonary edema furosemide 40 mg IV b.i.d. strict I&Os (5) Acute exacerbation of chronic obstructive pulmonary disease: Code(s): J44.1 - Chronic obstructive pulmonary disease with (acute) exacerbation Status: Acute Assessment and Plan: patient is on a chronic 3 L nasal cannula patient was a heavy smoker for 52 years patient quit smoking 2 years ago ceftriaxone 1 g IV Q 24, azithromycin 500 mg Q 24 IV methylprednisolone 40 mg IV push b.i.d. chronic prednisone 2.5 mg p.o. daily supplemental oxygen wean oxygen to maintain a sat greater than 90% Spiriva 1 capsule daily inhalation, albuterol nebs q.6, Atrovent neb q.6 trend SpO2 sputum culture ordered consider a pulmonary consult (6) Acute and chronic respiratory failure: Code(s): J96.20 - Acute and chronic respiratory failure, unspecified whether with hypoxia or hypercapnia Status: Acute (7) Pneumonia: Qualifiers: Laterality: unspecified laterality Lung location: unspecified part of lung Pneumonia type: due to unspecified organism Qualified Code(s): J18.9 - Pneumonia, unspecified organism Code(s): J18.9 - Pneumonia, unspecified organism Status: Acute Assessment and Plan: IV antibiotics see above (8) HLD (hyperlipidemia): Code(s): E78.5 - Hyperlipidemia, unspecified Status: Acute Assessment and Plan: continue home simvastatin 10 mg p.o. daily consider lipid panel in the a.m. (9) Anemia: Code(s): D64.9 - Anemia, unspecified Status: Acute Assessment and Plan: hemoglobin hematocrit stable at this time past 10.4/34.2 trend labs labs in a.m. MCV 75.8 anemia labs in the a.m. adjust medications to labs (10) Diabetes: Code(s): E11.9 - Type 2 diabetes mellitus without complications Status: Acute Assessment and Plan: glucose 98 POC glucose mid 200s and onetime 309 A1C pending diet controlled at this time trend glucose labs in a.m. adjust medications as needed Accu-Cheks AC/HS Time Spent With Patient Time with patient: Greater than 35 minutes Subjective Date/time seen: 06/08/21 06:45 Interval history: 75-year-old with a history of COPD on 3 L oxygen at home, hypertension,diabetes and atrial fibrillation with slow ventricular response
[2021-06-08 07:34] LABS: Glucose Point of Care 70 mg/dl (65-105)
[2021-06-08] MEDS: METOPROLOL TARTRATE 25 MG TABLET PO ×2 (07:38→21:08)
[2021-06-08] MEDS: ENOXAPARIN 40 MG/0.4 ML SYRINGE SUB-Q (07:38)
[2021-06-08] MEDS: GABAPENTIN 100 MG CAPSULE BY MOUTH ×3 (07:39→16:48)
[2021-06-08] MEDS: amLODIPine BESYLATE 5 MG TABLET 10 MG PO (07:39)
[2021-06-08] MEDS: MAGNESIUM OXIDE 400 MG TABLET PO (07:39)
[2021-06-08] MEDS: SIMVASTATIN 10 MG TABLET PO (07:40)
[2021-06-08] MEDS: PANTOPRAZOLE 40 MG TABLET PO ×2 (07:40→16:48)
[2021-06-08] MEDS: MULTIVITAMINS THERAPEUTIC TAB (*BKC) 1 TABLET PO (07:40)
[2021-06-08] MEDS: ASPIRIN 325 MG ENTERIC TABLET PO (07:40)
[2021-06-08] MEDS: FOLIC ACID 1 MG TABLET PO (07:41)
[2021-06-08] MEDS: methylPREDNISolone SOD SUCC 40 MG VIAL IV PUSH ×2 (07:45→16:51)
[2021-06-08 11:39] LABS: Glucose Point of Care 216 mg/dl (65-105)
[2021-06-08] MEDS: INSULIN ASPART (*BKC) 100 UNITS/ML SUB-Q ×2 (12:40→16:52)
--- NOTE | 2021-06-08 14:56 | PC.NURSE ---
Spoke to Tata the patient's clinician at [facility]. The prosthetic leg is not finished, there are several more fittings. She stated the patient has appointments for the next three tuesdays at 11 am and that he is aware of them.
[2021-06-08] MEDS: SERTRALINE HCL 50 MG TABLET PO (16:48)
[2021-06-08 16:50] LABS: Glucose Point of Care 248 mg/dl (65-105)
[2021-06-08 23:43] LABS: Glucose Point of Care 309 mg/dl (65-105)
[2021-06-09] VITALS (14 sets, daily range): BP systolic 138–153; BP diastolic 76–86; PULSE 62–86; RESP 16–18; TEMP 35.6–35.9; O2SAT 95–99
[2021-06-09] MEDS: IPRATROPIUM BR 0.02% INH SOLN 0.5 MG/2.5 ML VIAL INHALATION ×3 (02:21→14:28)
[2021-06-09] MEDS: ALBUTEROL SULFATE NEB 2.5 MG/0.5 ML INH 5 MG INHALATION ×3 (02:21→14:28)
[2021-06-09] MEDS: FUROSEMIDE INJ 40 MG/4 ML VIAL IV PUSH (05:44)
[2021-06-09 06:07] LABS: Hematocrit 36.4 % (42.0-52.0); Hemoglobin 10.9 g/dL (14.0-18.0); Mean Corpuscular HGB Conc 29.9 g/dl (32-36); Mean Corpuscular Hemoglobin 23.1 pg (26-34); Mean Corpuscular Volume 77.3 fl (80-100); Mean Platelet Volume 9.5 fl (7.4-10.4); Platelet Count Result 187 k/mm3 (150-375); Red Blood Count 4.71 M/mm3 (4.6-6.20); Red Cell Distribution Width 16.3 % (11.5-14.5); White Blood Count 10.6 K/mm3 (4.5-10.0)
[2021-06-09 06:17] LABS: Alanine Aminotransferase 15 U/L (4-50); Albumin Level 3.6 g/dL (3.5-5.1); Alkaline Phosphatase 134 U/L (38-126); Anion Gap 8 mmol/L (8-16); Aspartate Amino Transferase 33 U/L (17-59); Bilirubin,Total 0.4 mg/dL (0.2-1.3); Blood Urea Nitrogen 21 mg/dL (9-20); Calcium 8.6 mg/dL (8.4-10.2); Carbon Dioxide 30 mmol/L (22-30); Chloride 92 mmol/L (98-107); Estimated CRCL calculation 63 ml/min; Estimated Glomerular Filt Rate > 60; Glucose 158 mg/dL (65-110); Magnesium 1.7 mg/dL (1.6-2.3); Potassium 3.4 mmol/L (3.4-5.0); Sodium 130 mmol/L (137-145)
[2021-06-09 06:31] LABS: Glucose Point of Care 187 mg/dl (65-105)
[2021-06-09 06:57] LABS: Immature Reticulocyte Fraction 24.2 % (3.0-15.9); Reticulocyte Hemoglobin Conten 27.3 pg (28.2-35.7); Reticulocyte Percent 1.95 % (0.7-4.3)
[2021-06-09 07:32] LABS: Glucose Point of Care 157 mg/dl (65-105)
[2021-06-09 08:17] LABS: NT Pro B Type Natriuretic Pept 3830 pg/mL (5-100)
[2021-06-09] MEDS: METOPROLOL TARTRATE 25 MG TABLET PO (09:04)
[2021-06-09] MEDS: methylPREDNISolone SOD SUCC 40 MG VIAL IV PUSH ×2 (09:04→18:08)
[2021-06-09] MEDS: MAGNESIUM OXIDE 400 MG TABLET PO (09:05)
[2021-06-09] MEDS: SIMVASTATIN 10 MG TABLET PO ×2 (09:05→18:06)
[2021-06-09] MEDS: FOLIC ACID 1 MG TABLET PO (09:05)
[2021-06-09] MEDS: ASPIRIN 325 MG ENTERIC TABLET PO (09:05)
[2021-06-09] MEDS: amLODIPine BESYLATE 5 MG TABLET 10 MG PO (09:05)
[2021-06-09] MEDS: PANTOPRAZOLE 40 MG TABLET PO ×2 (09:05→18:06)
[2021-06-09] MEDS: GABAPENTIN 100 MG CAPSULE BY MOUTH ×3 (09:05→18:06)
[2021-06-09] MEDS: MULTIVITAMINS THERAPEUTIC TAB (*BKC) 1 TABLET PO (09:05)
[2021-06-09] MEDS: ENOXAPARIN 40 MG/0.4 ML SYRINGE SUB-Q (09:06)
[2021-06-09] MEDS: traMADol HCL (*CRX) 50 MG TABLET PO (09:22)
[2021-06-09 09:29] LABS: Lactate Dehydrogenase 596 U/L (313-618)
[2021-06-09 09:41] LABS: Transferrin 324 mg/dL (206-381)
[2021-06-09 09:45] LABS: Hemoglobin A1C 6.6 % (<5.7)
[2021-06-09 11:13] LABS: Folic Acid > 20.0 ng/mL (2.76->20)
--- NOTE | 2021-06-09 12:59 | P.DS_ITS ---
DS: Admitting Diagnosis Admitting Diagnosis COPD/CHF exacerbation DS: Discharge Diagnosis Discharge Diagnosis (1) Acute exacerbation of chronic obstructive pulmonary disease: Code(s): J44.1 - Chronic obstructive pulmonary disease with (acute) exacerbation Status: Acute Assessment and Plan: * patient is on a chronic 3 L nasal cannula * patient was a heavy smoker for 52 years * patient quit smoking 2 years ago * ceftriaxone 1 g IV Q 24, azithromycin 500 mg Q 24 IV * methylprednisolone 40 mg IV push b.i.d. * chronic prednisone 2.5 mg p.o. daily * supplemental oxygen * wean oxygen to maintain a sat greater than 90% * Spiriva 1 capsule daily inhalation, albuterol nebs q.6, Atrovent neb q.6 * trend SpO2 * sputum culture ordered * consider a pulmonary consult (2) Acute and chronic respiratory failure: Code(s): J96.20 - Acute and chronic respiratory failure, unspecified whether with hypoxia or hypercapnia Status: Acute (3) Acute exacerbation of CHF (congestive heart failure): Qualifiers: Heart failure type: diastolic Qualified Code(s): I50.33 - Acute on chronic diastolic (congestive) heart failure Code(s): I50.9 - Heart failure, unspecified Status: Acute Assessment and Plan: * acute on chronic probably a mix of systolic and diastolic heart failure * BNP 3020 * chest x-ray shows airspace opacities consistent with atelectasis /pneumonia/pulmonary edema * furosemide 40 mg IV b.i.d. * strict I&Os (4) Atrial fibrillation with slow ventricular response: Code(s): I48.91 - Unspecified atrial fibrillation Status: Acute Assessment and Plan: * EKG shows AFib with slow ventricular response * current monitor shows AFib in the 80s * trend rhythm * continue home metoprolol 25 mg p.o. b.i.d. * tele monitor * adjust medications as needed (5) Amputation of left lower extremity below knee: Code(s): S88.112A - Complete traumatic amputation at level between knee and ankle, left lower leg, initial encounter Status: Acute Assessment and Plan: * Left BKA * Wound care if needed * PT and OT * tramadol 50 mg p.o. q.6 p.r.n. (6) Alcohol abuse: Code(s): F10.10 - Alcohol abuse, uncomplicated Status: Acute Assessment and Plan: * ED notes patient had 2 beers and 2 shots of vodka to help him with his shortness of breath * CIWA protocol * consider adding Librium * folic acid 1 mg p.o. daily * multivitamin 1 tab per day * adjust medications as needed (7) Pneumonia: Qualifiers: Pneumonia type: due to unspecified organism Laterality: unspecified laterality Lung location: unspecified part of lung Qualified Code(s): J18.9 - Pneumonia, unspecified organism Code(s): J18.9 - Pneumonia, unspecified organism Status: Acute Assessment and Plan: * IV antibiotics * see above (8) HLD (hyperlipidemia): Code(s): E78.5 - Hyperlipidemia, unspecified Status: Acute Assessment and Plan: * continue home simvastatin 10 mg p.o. daily * consider lipid panel in the a.m. (9) Anemia: Code(s): D64.9 - Anemia, unspecified Status: Acute Assessment and Plan: * hemoglobin hematocrit stable at this time past 10.4/34.2 * trend labs * labs in a.m. * MCV 75.8 * anemia la
--- NOTE | 2021-06-09 12:59 | PM.DS ---
DS: Admitting Diagnosis Admitting Diagnosis COPD/CHF exacerbation DS: Discharge Diagnosis Discharge Diagnosis (1) Acute exacerbation of chronic obstructive pulmonary disease: Code(s): J44.1 - Chronic obstructive pulmonary disease with (acute) exacerbation Status: Acute Assessment and Plan: patient is on a chronic 3 L nasal cannula patient was a heavy smoker for 52 years patient quit smoking 2 years ago ceftriaxone 1 g IV Q 24, azithromycin 500 mg Q 24 IV methylprednisolone 40 mg IV push b.i.d. chronic prednisone 2.5 mg p.o. daily supplemental oxygen wean oxygen to maintain a sat greater than 90% Spiriva 1 capsule daily inhalation, albuterol nebs q.6, Atrovent neb q.6 trend SpO2 sputum culture ordered consider a pulmonary consult (2) Acute and chronic respiratory failure: Code(s): J96.20 - Acute and chronic respiratory failure, unspecified whether with hypoxia or hypercapnia Status: Acute (3) Acute exacerbation of CHF (congestive heart failure): Qualifiers: Heart failure type: diastolic Qualified Code(s): I50.33 - Acute on chronic diastolic (congestive) heart failure Code(s): I50.9 - Heart failure, unspecified Status: Acute Assessment and Plan: acute on chronic probably a mix of systolic and diastolic heart failure BNP 3020 chest x-ray shows airspace opacities consistent with atelectasis /pneumonia/pulmonary edema furosemide 40 mg IV b.i.d. strict I&Os (4) Atrial fibrillation with slow ventricular response: Code(s): I48.91 - Unspecified atrial fibrillation Status: Acute Assessment and Plan: EKG shows AFib with slow ventricular response current monitor shows AFib in the 80s trend rhythm continue home metoprolol 25 mg p.o. b.i.d. tele monitor adjust medications as needed (5) Amputation of left lower extremity below knee: Code(s): S88.112A - Complete traumatic amputation at level between knee and ankle, left lower leg, initial encounter Status: Acute Assessment and Plan: Left BKA Wound care if needed PT and OT tramadol 50 mg p.o. q.6 p.r.n. (6) Alcohol abuse: Code(s): F10.10 - Alcohol abuse, uncomplicated Status: Acute Assessment and Plan: ED notes patient had 2 beers and 2 shots of vodka to help him with his shortness of breath CIWA protocol consider adding Librium folic acid 1 mg p.o. daily multivitamin 1 tab per day adjust medications as needed (7) Pneumonia: Qualifiers: Pneumonia type: due to unspecified organism Laterality: unspecified laterality Lung location: unspecified part of lung Qualified Code(s): J18.9 - Pneumonia, unspecified organism Code(s): J18.9 - Pneumonia, unspecified organism Status: Acute Assessment and Plan: IV antibiotics see above (8) HLD (hyperlipidemia): Code(s): E78.5 - Hyperlipidemia, unspecified Status: Acute Assessment and Plan: continue home simvastatin 10 mg p.o. daily consider lipid panel in the a.m. (9) Anemia: Code(s): D64.9 - Anemia, unspecified Status: Acute Assessment and Plan: hemoglobin hematocrit stable at this time past 10.4/34.2 trend labs labs in a.m. MCV 75.8 anemia labs in the a.m. adjust medications to labs (10) Diabetes: Code(s): E11.9 - Type 2 diabetes mellitus without complications Status: Acute Assessment and Plan: glucose 98 POC glucose mid 200s and onetime 309 A1C pending diet controlled at this time trend glucose labs in a.m. adjust medications as needed Accu-Cheks AC/HS DS: Summary Hospital Course Reason for hospitalization: Date of Service: 06/09/21 at 11:18am Hospital Course: 75-year-old with a history of COPD on 3 L oxygen at home, hypertension,diabetes
[2021-06-09] MEDS: BUMETANIDE INJ 1 MG/4 ML VIAL 2 MG IV PUSH (13:54)
[2021-06-09] MEDS: POTASSIUM CHLORIDE 20 MEQ TABLET 40 MEQ PO (14:00)
[2021-06-09] MEDS: SERTRALINE HCL 50 MG TABLET PO (18:17)
[2021-06-09] MEDS: INSULIN ASPART (*BKC) 100 UNITS/ML SUB-Q (18:18)
[2021-06-09 18:19] LABS: Glucose Point of Care 251 mg/dl (65-105)
[2021-06-10 01:10] LABS: Iron 22 ug/dL (49-181)
[2021-06-10 01:14] LABS: Percent Iron Saturation 5 % (20-50)
== END 2021-06-09 19:30 | disposition home or self-care (01) | DRG 291 ==
LOC: ANHED 17:12 → ANH3MED 18:17
PROVIDERS: Emergency Medicine; Internal Medicine; Nurse Practitioner; Admitting Provider Hospitalist; Emergency Provider Family Medicine; PCP Emergency Medicine; Visit Provider Hospitalist
DX: I11.0 Hypertensive heart disease with heart failure (principal); J18.9 Pneumonia, unspecified organism; J96.21 Acute and chronic respiratory failure with hypoxia; J44.1 Chronic obstructive pulmonary disease with (acute) exacerbation; J44.0 Chronic obstructive pulmonary disease with (acute) lower respiratory infection; I48.19 Other persistent atrial fibrillation; I50.43 Acute on chronic combined systolic (congestive) and diastolic (congestive) heart failure; D64.9 Anemia, unspecified; F10.10 Alcohol abuse, uncomplicated; F41.9 Anxiety disorder, unspecified; N40.0 Benign prostatic hyperplasia without lower urinary tract symptoms; K21.9 Gastro-esophageal reflux disease without esophagitis; E11.42 Type 2 diabetes mellitus with diabetic polyneuropathy; K58.9 Irritable bowel syndrome, unspecified; E78.2 Mixed hyperlipidemia; M19.90 Unspecified osteoarthritis, unspecified site; J45.909 Unspecified asthma, uncomplicated; Z96.641 Presence of right artificial hip joint; Z87.891 Personal history of nicotine dependence; Z99.81 Dependence on supplemental oxygen; Z79.82 Long term (current) use of aspirin; Z98.42 Cataract extraction status, left eye; Z98.41 Cataract extraction status, right eye; Z89.512 Acquired absence of left leg below knee; Z86.73 Personal history of transient ischemic attack (TIA), and cerebral infarction without residual deficits
CPT/HCPCS: 36415; 71046; 80048; 80053; 82607; 82728; 82746; 82948; 83036; 83540; 83550; 83615; 83735; 83880; 84443; 84466; 85025; 85027; 85046; 93005; 93306; 94640; 96374; 97161; 97165; 99285; A9270; J0456; J0696; J1650; J1815; J1940; J2920

== ENCOUNTER 2021-07-05 14:05 | Emergency (ER) | payer OTHER, SELFPAY ==
--- NOTE | ~2021-07-05 | CT_ITS ---
EXAMINATION: CT brain wo con DATE: 07/05/2021 17:41 INDICATION: Status post fall. Confusion. TECHNIQUE: Computed tomography (CT) of the head was performed without intravenous contrast. The dose- length product was 605.33 mGy-cm. Automated exposure control and iterative reconstruction technique w ere employed. COMPARISON: 03/17/2018 FINDINGS: Stable chronic right frontal lobe infarction. Mild generalized atrophy. There are scattered mild periventricular and subcortical white matter changes, most likely related to small vessel ische he disease (microangiopathy). No ventriculomegaly or midline shift. Basilar cisterns are patent. The re is intracranial atherosclerosis. Paranasal sinuses and mastoids are pneumatized. No depressed skul l fractures. IMPRESSION: 1. No acute intracranial abnormality. 2: Chronic right frontal lobe infarction. 3: Chronic age-related findings. Reviewed, dictated and finalized at location A.
--- NOTE | ~2021-07-05 | XR_ITS ---
EXAMINATION: XR chest 1V portable INDICATION: Shortness of breath TECHNIQUE: Portable AP chest at 1607 hours COMPARISON: 06/07/2021 FINDINGS: Diffuse airspace opacities are present in all lung zones with interval worsening. There is no pleural effusion or pneumothorax. The cardiomediastinal silhouette is stable. Osteoarthritis is no [place] in the shoulders. IMPRESSION: 1. Diffuse lung disease with interval worsening, consistent with pneumonia and/or pulmonary edema. Reviewed, dictated and finalized at location B. IMPRESSION: 1. Diffuse lung disease with interval worsening, consistent with pneumonia and/ or pulmonary edema.
[2021-07-05 14:42] VITALS: BP 123/71; PULSE 89; RESP 18; TEMP 36.2; O2SAT 95
[2021-07-05 16:23] VITALS: PULSE 77; RESP 18; O2SAT 95
--- NOTE | 2021-07-05 16:28 | ECG_ITS ---
Measurements Intervals [place] Rate: 72 P: SC: 0 QRS: 0 QRSD: 81 T: 65 QT: 383 QTc: 422 Interpretive Statements ATRIAL FIBRILLATION LOW QRS VOLTAGE- DIFFUSE LEADS ANTEROSEPTAL INFARCT, AGE INDETERMINATE BORDERLINE ST-T WAVE ABNORMALITY- HIGH LATERAL LEADS BASELINE ARTIFACT- I, II, III, AVR, AVL, AVF, V1, V3-V6 ABNORMAL ECG Electronically Signed On 07-05-2021 20:51:20 CDT by Yahir Lopez D.O.
[2021-07-05 17:14] LABS: Basophils Percent Auto 0.4 % (0.2-1.2); Eosinophils Absolute Auto 0.2 K/mm3 (0-0.3); Hematocrit 35.8 % (42.0-52.0); Hemoglobin 10.6 g/dL (14.0-18.0); Immature Granulocyte Absolute 0.05 K/mm3 (0.00-0.031); Lymphocytes Absolute Auto 0.42 K/mm3 (0.9-3.2); Lymphocytes Percent Auto 8.3 % (18.3-44.2); Mean Corpuscular HGB Conc 29.6 g/dl (32-36); Mean Corpuscular Hemoglobin 23.8 pg (26-34); Mean Corpuscular Volume 80.4 fl (80-100); Mean Platelet Volume 8.8 fl (7.4-10.4); Monocytes Absolute Auto 0.6 K/mm3 (0.1-0.6); Monocytes Percent Auto 11.5 % (2.6-8.5); Neutrophils Absolute Auto 3.8 K/mm3 (1.3-6.7); Neutrophils Percent Auto 75.8 % (45.5-73.1); Platelet Count Result 129 k/mm3 (150-375); Red Blood Count 4.45 M/mm3 (4.6-6.20); Red Cell Distribution Width 16.9 % (11.5-14.5)
[2021-07-05 17:25] LABS: Alanine Aminotransferase 26 U/L (4-50); Albumin Level 4.1 g/dL (3.5-5.1); Alkaline Phosphatase 191 U/L (38-126); Anion Gap 9 mmol/L (8-16); Aspartate Amino Transferase 58 U/L (17-59); Bilirubin,Total 0.6 mg/dL (0.2-1.3); Blood Urea Nitrogen 13 mg/dL (9-20); Calcium 8.6 mg/dL (8.4-10.2); Carbon Dioxide 30 mmol/L (22-30); Chloride 95 mmol/L (98-107); Estimated Glomerular Filt Rate > 60; Glucose 95 mg/dL (65-110); Potassium 3.6 mmol/L (3.4-5.0); Sodium 134 mmol/L (137-145)
[2021-07-05 17:42] LABS: NT Pro B Type Natriuretic Pept 2740 pg/mL (5-100); Troponin I 0.136 ng/mL (0.000-0.034)
[2021-07-05 17:46] LABS: Platelet Estimate Decreased (Adequate)
[2021-07-05 17:47] LABS: Anisocytosis 2+ (NORMAL); Hypochromasia 1+ (NORMAL)
--- NOTE | 2021-07-05 17:53 | ED.GENADULT ---
HPI - General Adult General Chief complaint: Fall Stated complaint: Fall-Saturday Bruises Time Seen by Provider: 07/05/21 16:11 Source: patient Mode of arrival: EMS Limitations: no limitations History of Present Illness HPI narrative: 75-year-old with a history of COPD on 2 L of oxygen at home, alcoholism, left BKA, diabetes here with complaints of fall and shortness of breath for past few days. Patient states that he while he was transferring out of the leg to the wheelchair he fell and hit on the edge of the bed. He denies loss of consciousness. Since this morning he has been having some shortness of breath. He denies any fever or chills. Has occasional cough. He also states he has been bleeding from the stump. Onset (ago): day(s) (2) Location: head, face and lower extremity (Left lower) Radiation: non-radiation Severity: mild Quality: aching Relieving factors: none Exacerbating factors: none Related Data Home Medications Medication Instructions Recorded Confirmed acetaminophen 1,000 mg PO Q6-8H PRN 12/02/20 06/07/21 aspirin 325 mg PO DAILY 12/02/20 06/07/21 folic acid 1 mg PO DAILY 12/02/20 06/07/21 sertraline 50 mg PO DAILY 06/07/21 06/07/21 ammonium lactate 1 applic TOPICAL DAILY 06/09/21 06/09/21 Allergies Allergy/AdvReac Type Severity Reaction Status Date / Time niacin Allergy Intermediate Rash/itchin Verified 07/05/21 16:06 g hydrocodone [From [place]] AdvReac Confusion Verified 07/05/21 16:06 Review of Systems Review of Systems: All systems reviewed & are unremarkable except as noted in HPI and below Constitutional: Constitutional: Reports no additional constitutional complaints Eyes: Eyes: Reports no additional eye complaints ENT: Reports system reviewed and no additional complaints, except as documented Cardiovascular: Cardiovascular: Reports no additional cardiovascular complaints Respiratory: Respiratory: Reports as per HPI Gastrointestinal: Gastrointestinal: Reports no additional gastrointestinal complaints Musculoskeletal: Musculoskeletal: Reports no additional musculoskeletal complaints Integumentary/Breasts: Skin/Breast: Reports as per HPI Neurologic: Reports system reviewed and no additional complaints, except as documented [facility] Past Medical History Medical History Alcohol abuse Anxiety Asthma Benign prostatic hyperplasia Cerebrovascular accident Chronic anemia Chronic obstructive pulmonary disease Chronic respiratory failure with hypoxia, on home O2 therapy Depression Diabetic peripheral neuropathy Diastolic congestive heart failure Former smoker Gastroesophageal reflux disease Hearing loss Hypertension Ichthyosis vulgaris Irritable bowel syndrome Mixed hyperlipidemia Osteoarthritis Osteomyelitis History of osteomyelitis of both feet requiring multiple amputations. Persistent atrial fibrillation Not on long-term anticoagulation. Takes aspirin 325 mg daily. Sacrum and coccyx fracture Type 2 diabetes mellitus Diet-controlled. Hemoglobin A1c was 6.0 in June 2020. Surgical History Surgical History History of bilateral cataract extraction History of incision and drainage Right hip abscess. History of left below knee amputation 11/17/[address] Heaton History of tonsillectomy History of total right hip arthroplasty (~2002) History of transmetatarsal amputation of left foot (~2019) History of transmetatarsal amputation of right foot (~2016) History of ventral hernia repair (~2006) Family History Family History Mother Patient's mother is , Onset Age: 31 Father Suicide Social History Social History Social History: The patient lives in [place] in an apartment. He gets Meals on wheels. Has continued to refus
[2021-07-05] MEDS: FUROSEMIDE INJ 40 MG/4 ML VIAL IV PUSH (18:20)
--- NOTE | 2021-07-05 19:27 | PC.NURSE ---
Assumed care of pt at this time, report taken from Maisha MILLER. Pt alert and upright on stretcher on 2L NC. Updated on POC.
[2021-07-05 19:30] VITALS: BP 163/82; PULSE 77; RESP 23; O2SAT 100
[2021-07-05] MEDS: MORPHINE SULFATE (*CRX) 4 MG/ML INJ IV PUSH (20:09)
[2021-07-05 20:56] LABS: Troponin I 0.147 ng/mL (0.000-0.034)
[2021-07-05 21:13] VITALS: BP 169/84; PULSE 94; RESP 21; O2SAT 97
== END 2021-07-05 21:30 | disposition home or self-care (01) ==
PROVIDERS: Emergency Provider Family Medicine; PCP Emergency Medicine
DX: I11.0 Hypertensive heart disease with heart failure (principal); I50.33 Acute on chronic diastolic (congestive) heart failure; J44.9 Chronic obstructive pulmonary disease, unspecified; S00.83XA Contusion of other part of head, initial encounter; Z99.81 Dependence on supplemental oxygen; E11.42 Type 2 diabetes mellitus with diabetic polyneuropathy; N40.0 Benign prostatic hyperplasia without lower urinary tract symptoms; D64.9 Anemia, unspecified; J96.11 Chronic respiratory failure with hypoxia; I48.19 Other persistent atrial fibrillation; K21.9 Gastro-esophageal reflux disease without esophagitis; E78.2 Mixed hyperlipidemia; M19.90 Unspecified osteoarthritis, unspecified site; Z86.73 Personal history of transient ischemic attack (TIA), and cerebral infarction without residual deficits; Z98.42 Cataract extraction status, left eye; Z98.41 Cataract extraction status, right eye; Z89.512 Acquired absence of left leg below knee; Z89.431 Acquired absence of right foot; Z96.641 Presence of right artificial hip joint; Z79.01 Long term (current) use of anticoagulants; Z87.891 Personal history of nicotine dependence; R94.31 Abnormal electrocardiogram [ECG] [EKG]; W05.0XXA Fall from non-moving wheelchair, initial encounter
CPT/HCPCS: 36415; 70450; 71045; 80053; 83880; 84484; 85025; 93005; 96374; 96375; 99284; J1940; J2270

== ENCOUNTER 2021-07-19 09:55 | Inpatient (IN) | payer OTHER, MEDICAID, SELFPAY ==
[2021-07-19] VITALS (16 sets, daily range): BP systolic 134–177; BP diastolic 60–93; PULSE 70–99; RESP 13–32; TEMP 36.4–36.6; O2SAT 96–100
--- NOTE | ~2021-07-19 | US_ITS ---
EXAMINATION:US venous doppler LE BI INDICATION:Lower extremity edema TECHNIQUE: Multiple grayscale, color flow and Doppler images of the right and left lower extremity de ep venous systems were obtained and reviewed. COMPARISON:No prior studies for comparison. FINDINGS: The common femoral, superficial femoral and popliteal veins demonstrate normal respiratory variation, augmentation and compressibility. Color flow is also seen within the posterior tibial, pe roneal, greater saphenous and profunda veins. IMPRESSION: 1: No lower extremity deep venous thrombosis. Reviewed, dictated and finalized at location A.
--- NOTE | ~2021-07-19 | XR_ITS ---
EXAMINATION: XR chest 1V portable EXAM DATE: 07/19/2021 11:36 INDICATION: sob HX CHF, COPD, asthma. TECHNIQUE: Portable AP frontal chest x-ray was obtained. Comparison is made to prior examination from 07/05/2021. FINDINGS: There is cardiomegaly and pulmonary vascular congestion. No confluent consolidation, pneumo thorax or pleural effusion suspected. There are no osseous abnormalities identified. IMPRESSION: Cardiomegaly, pulmonary vascular congestion. Reviewed, dictated and finalized at location B.
--- NOTE | 2021-07-19 10:46 | ECG_ITS ---
Measurements Intervals [place] Rate: 86 P: TN: 0 QRS: 43 QRSD: 81 T: 56 QT: 339 QTc: 406 Interpretive Statements ATRIAL FIBRILLATION VENTRICULAR PREMATURE COMPLEX LOW QRS VOLTAGE IN LIMB LEADS ANTEROSEPTAL INFARCT, AGE INDETERMINATE BASELINE ARTIFACT- V1, V4-V6 ABNORMAL ECG Electronically Signed On 07-19-2021 12:32:14 CDT by Yahir Lopez D.O.
[2021-07-19] MEDS: ALBUTEROL SULFATE NEB 2.5 MG/0.5 ML INH 5 MG INHALATION (11:03)
[2021-07-19] MEDS: predniSONE 20 MG TABLET 60 MG PO (11:03)
[2021-07-19] MEDS: IPRATROPIUM BR 0.02% INH SOLN 0.5 MG/2.5 ML VIAL INHALATION (11:03)
[2021-07-19 11:09] LABS: Basophils Percent Auto 0.3 % (0.2-1.2); Hematocrit 31.9 % (42.0-52.0); Hemoglobin 9.8 g/dL (14.0-18.0); Immature Granulocyte Absolute 0.06 K/mm3 (0.00-0.031); Immature Granulocyte Percent A 0.9 % (0-0.5); Lymphocytes Absolute Auto 0.16 K/mm3 (0.9-3.2); Lymphocytes Percent Auto 2.3 % (18.3-44.2); Mean Corpuscular HGB Conc 30.7 g/dl (32-36); Mean Corpuscular Hemoglobin 24.2 pg (26-34); Mean Corpuscular Volume 78.8 fl (80-100); Mean Platelet Volume 8.6 fl (7.4-10.4); Monocytes Absolute Auto 0.4 K/mm3 (0.1-0.6); Monocytes Percent Auto 5.9 % (2.6-8.5); Neutrophils Absolute Auto 6.3 K/mm3 (1.3-6.7); Neutrophils Percent Auto 90.6 % (45.5-73.1); Platelet Count Result 156 k/mm3 (150-375); Red Blood Count 4.05 M/mm3 (4.6-6.20); Red Cell Distribution Width 15.8 % (11.5-14.5); White Blood Count 6.9 K/mm3 (4.5-10.0)
--- NOTE | 2021-07-19 11:17 | PC.NURSE ---
called josephine and vonda and left voicemails. made contact with kristi whom said she will try to arrive some time today.
[2021-07-19 11:25] LABS: Alveolar/Arterial O2 Gradient 100.9 mmHg; Base Excess ABG -2.3 mEq/l (+/-2.0); Carboxyhemoglobin 0.5 % THb (0-2.0); Fractional Inspired Oxygen 32 %; Methemoglobin ABG 0.2 %THb (0-1.5); Oxygen Content ABG 14.6 %vol (16.0-22.0); Oxygen Saturation ABG 96.6 % (95.0-100.0); Oxyhemoglobin 95.3 % THb (90.0-100.0); PCO2 ABG 35.7 mmHg (35.0-45.0); PO2 ABG 85.5 mmHg (80.0-100.0); PO2 FiO2 Ratio Arterial Blood 2.67 %; Total Hemoglobin 10.8 g/dL (12.0-18.0); pH ABG 7.407 (7.350-7.450)
[2021-07-19 11:26] LABS: Device NASAL CANNULA; Site Drawn LEFT RADIAL
[2021-07-19 11:39] LABS: NT Pro B Type Natriuretic Pept 5800 pg/mL (5-100); Troponin I 0.147 ng/mL (0.000-0.034)
--- NOTE | 2021-07-19 11:40 | ED.SOB ---
HPI - SOB/Dyspnea General Chief Complaint: Shortness of Breath/Dyspnea Stated Complaint: DIFFICULTY BREATHING Time Seen by Provider: 07/19/21 09:59 Source: patient, RN notes reviewed and old records reviewed Mode of arrival: EMS Limitations: no limitations History of Present Illness HPI Narrative: This a 75 year old male with history of multiple medical problems including COPD,chronic oxygen dependence of 2.5-3 L NC who presents for evaluation of shortness of breath starting this morning. He states he did not feel well when he woke up this morning. He has a mild cough and worsening shortness of breath. His neighbor called 911 since patient didn't feel well. EMS found patent have wheezing so he was given neb treatment in route. He states he feels better and he is at his baseline shortness of breath. He denies chest pain, nausea, vomiting, diarrhea or fever. He has not been vaccinated for COVID. He reports he had a doctors appointment today to get fitted for his prosthesis on his left BKA. Related Data Home Medications Medication Instructions Recorded Confirmed acetaminophen 1,000 mg PO Q6-8H PRN 12/02/20 06/07/21 aspirin 325 mg PO DAILY 12/02/20 06/07/21 folic acid 1 mg PO DAILY 12/02/20 06/07/21 sertraline 50 mg PO DAILY 06/07/21 06/07/21 ammonium lactate 1 applic TOPICAL DAILY 06/09/21 06/09/21 Allergies Allergy/AdvReac Type Severity Reaction Status Date / Time niacin Allergy Intermediate Rash/itchin Verified 07/19/21 10:17 g hydrocodone [From [place]] AdvReac Confusion Verified 07/19/21 10:17 Review of Systems Review of Systems: All systems reviewed & are unremarkable except as noted in HPI and below PMFSH Past Medical History Medical History Alcohol abuse Anxiety Asthma Benign prostatic hyperplasia Cerebrovascular accident Chronic anemia Chronic obstructive pulmonary disease Chronic respiratory failure with hypoxia, on home O2 therapy Depression Diabetic foot ulcer Diabetic peripheral neuropathy Diastolic congestive heart failure Former smoker Gastroesophageal reflux disease Hearing loss Hypertension Ichthyosis vulgaris Irritable bowel syndrome Mixed hyperlipidemia Osteoarthritis Osteomyelitis History of osteomyelitis of both feet requiring multiple amputations. Persistent atrial fibrillation Not on long-term anticoagulation. Takes aspirin 325 mg daily. Sacrum and coccyx fracture Type 2 diabetes mellitus Diet-controlled. Hemoglobin A1c was 6.0 in June 2020. Surgical History Surgical History History of bilateral cataract extraction History of incision and drainage Right hip abscess. History of left below knee amputation 11/17/[address] Heaton History of tonsillectomy History of total right hip arthroplasty (~2002) History of transmetatarsal amputation of left foot (~2019) History of transmetatarsal amputation of right foot (~2016) History of ventral hernia repair (~2006) Family History Family History Mother Patient's mother is , Onset Age: 31 Father Suicide Social History Social History Social History: The patient lives in [place] in an apartment. He gets Meals on wheels. Has continued to refuse assisted living and the like. He is . 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 Smoked a pack of cigarettes per day for 58 years and quit in December of 2018. He has a history of alcohol abuse although he says he is not drinking much anymore. No illicit substance use, he used marijuana previously. He designates his daughter, Adwoa Xiong, as his surrogate decision maker and he wishes to be a full code. The patient stated that he has 7 children. Smoking packs per day: 1 Smoking cigarettes per day:
[2021-07-19] MEDS: FUROSEMIDE INJ 40 MG/4 ML VIAL IV PUSH (12:20)
[2021-07-19 12:37] LABS: Platelet Estimate Adequate (Adequate)
[2021-07-19 12:38] LABS: Hypochromasia 1+ (NORMAL)
[2021-07-19 13:03] LABS: Alanine Aminotransferase 23 U/L (4-50); Albumin Level 4.5 g/dL (3.5-5.1); Alkaline Phosphatase 186 U/L (38-126); Anion Gap 13 mmol/L (8-16); Aspartate Amino Transferase 55 U/L (17-59); Bilirubin,Total 0.6 mg/dL (0.2-1.3); Blood Urea Nitrogen 22 mg/dL (9-20); Calcium 8.8 mg/dL (8.4-10.2); Carbon Dioxide 23 mmol/L (22-30); Chloride 86 mmol/L (98-107); Estimated CRCL calculation 57 ml/min; Estimated Glomerular Filt Rate > 60; Glucose 162 mg/dL (65-110); Potassium 4.6 mmol/L (3.4-5.0); Sodium 122 mmol/L (137-145)
--- NOTE | 2021-07-19 13:13 | PC.NURSE ---
13 beat ru of monomorphic vtach. aware. pt without distress or c/o
--- NOTE | 2021-07-19 13:48 | PC.NURSE ---
phone update to daughter jolly [phone]
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
[2021-07-19] MEDS: traMADol HCL (*CRX) 50 MG TABLET PO ×2 (16:16→22:10)
--- NOTE | 2021-07-19 17:25 | PCRCNOTE ---
Window of time for administration has passed. See next scheduled administration.
--- NOTE | 2021-07-19 18:00 | PM.IMHP ---
H&P: HPI History of Present Illness Date/Time: 07/19/21 18:00 Chief Complaint: Shortness of breath. Narrative: This is a pleasant 75-year-old male with multiple medical problems including chronic respiratory failure on 2.5 to 3 L nasal cannula at home, chronic obstructive pulmonary disease, atrial fibrillation, type 2 diabetes mellitus, hypertension, and several other comorbidities who presented to the emergency department earlier today via EMS from home with complaints of shortness of breath. He has chronic dyspnea on exertion though it has gotten increasingly worse over the past 3 days. He has been wheezing somewhat though he has not gotten relief with his nebulizers at home. He also reports orthopnea and lower extremity edema though he does not think that is any worse than usual. The patient has a chronic cough, mainly in the mornings, which is unchanged. He has not had fever, chills, or sweats. He denies sinus congestion, rhinorrhea, otalgia, and odynophagia. No sick contacts or COVID 19 exposure. He is not currently having any chest pain but he does report having some chest tightness earlier today when he was feeling short of breath though that has resolved. No history of venous thromboembolism. Review of Systems Review of Systems: Twelve systems were reviewed with pertinent positives and negatives as per HPI. He lives at home by himself and has a history of partial right foot amputation and left [id number] amputation. He uses a wheelchair and says he is able to transfer on his right leg however he does admit to having falls on occasion, most recently last week when he lost his balance and fell forward onto his and table. He has 3 children within a [address] or less though they do not come to help him out at home much. No syncope or near syncope. He denies headache. No did is aphasia or concerns for aspiration. No PND. He denies nausea, vomiting, and sweats. Since his left BKA he has had increasing neuropathy symptoms and reports that his left leg will frequently shake uncontrollably and it feels like a hot, lightening pain. Except as documented, all other systems were reviewed and are negative. [facility] Past Medical History Medical History (Updated 07/19/21 @ 23:47 by Kierra Mckeon PA-C) Alcohol abuse History of alcohol abuse though he has cut back significantly in the last 6 months or so. Now drinking a couple of beers a day. Anxiety Asthma Benign prostatic hyperplasia Cerebrovascular accident Chronic anemia Chronic obstructive pulmonary disease Chronic respiratory failure with hypoxia, on home O2 therapy Depression Diabetic foot ulcer Diabetic peripheral neuropathy Diastolic congestive heart failure Former smoker Gastroesophageal reflux disease Hearing loss Hypertension Ichthyosis vulgaris Irritable bowel syndrome Mixed hyperlipidemia MRSA (methicillin resistant Staphylococcus aureus) septicemia (09/2020) Osteoarthritis Osteomyelitis History of osteomyelitis of both feet requiring multiple amputations. Pancreatitis (03/2021) Persistent atrial fibrillation Not on long-term anticoagulation. Takes aspirin 325 mg daily. Pulmonary hypertension Echocardiogram on 06/08/2021 showed normal left ventricular systolic function with an EF estimated 65 to 70%, mildly increased LV wall thickness, severely enlarged right atrial chamber, mildly enlarged left atrial chamber, mild mitral valve and trace tricuspid valve regurgitation, and mild pulmonary hypertension with an estimated pulmonary arterial systolic pressure of 35 mmHg. Sacrum and coccyx fracture Type 2 diabetes mellitus Hemoglobin A1c was 6.6% on 06/09/2021. Surgical History Surgical History (Updated 07/19/21 @ 23:33 by Kierra Mckeon PA-C) History of bilateral cataract extraction History of incision and drainage Right hip abscess. History of left below knee amputation (~11/17/20) Performed by Dr. Heaton History of tonsillectomy History of total right hip arthroplasty
--- NOTE | 2021-07-19 19:20 | PC.NURSE ---
Arrived to [facility] from ER at 1909. No acute distress noted
--- NOTE | 2021-07-19 19:38 | PC.NURSE ---
Patient report received from PAUL Gregory. Care of patient assumed.
--- NOTE | 2021-07-19 19:40 | ADMGEN ---
This patient, Ludin Mcguire, was admitted to [facility]. Patient oriented to hospital policies and general routines including ID bracelet, bed and alarms, visiting hours, pain management, procedures, bathroom and other care routines, personal items, smoking policy, room service/diet, and visiting hours. Information on how to activate the Rapid Response Team has been discussed. Patient encouraged to report perceived risks to care and to ask questions if they do not understand what they are told or what they should do. Patient alert and oriented. NAD noted. VSS. Oxygen per NC at 2.5 liters as per home use. Patient with complaints of shortness of breath but reports it is the same as his baseline. Pursed lip breathing noted but O2 sat of 99-100% on 2.5L. Patient with complaints of neuropathy pain. Awaiting orders for home medications. Call light and urinal within reach. Will continue to monitor.
[2021-07-19] MEDS: GABAPENTIN 100 MG CAPSULE BY MOUTH (22:32)
[2021-07-19] MEDS: METOPROLOL TARTRATE 25 MG TABLET PO (22:32)
--- NOTE | 2021-07-19 22:49 | PC.NURSE ---
At 2229 it was noted at the central electronic device monitor that patient had a 6 beat run of vtach. Patient assessed and was asymptomatic with no complaints.
[2021-07-20] VITALS (28 sets, daily range): BP systolic 132–161; BP diastolic 65–95; PULSE 55–89; RESP 14–24; TEMP 36.6–36.7; O2SAT 96–100
[2021-07-20 00:37] LABS: Sodium 127 mmol/L (137-145)
[2021-07-20 00:57] LABS: Troponin I 0.147 ng/mL (0.000-0.034)
[2021-07-20] MEDS: IPRATROPIUM BR 0.02% INH SOLN 0.5 MG/2.5 ML VIAL INHALATION ×4 (01:13→21:18)
--- NOTE | 2021-07-20 01:17 | PC.NURSE ---
Patient's home medications were secured in the locked safe in the nursing station in the [facility].
[2021-07-20] MEDS: ALPRAZolam (*CRX) 0.25 MG TABLET PO (01:51)
--- NOTE | 2021-07-20 04:26 | PC.NURSE ---
Despite PO Xanax and Tramadol for anxiety and pain the patient has been unable to sleep tonight. Patient requested coffee. Pt does appear to be relaxed and comfortable at this time lying in bed watching a movie.
--- NOTE | 2021-07-20 06:03 | PC.NURSE ---
Lab at bedside to collect morning labs.
[2021-07-20 06:19] LABS: Thyroid Stimulating Hormone Reflex 0.954 uIU/mL (0.465-4.68)
[2021-07-20 06:46] LABS: Basophils Percent Auto 0.1 % (0.2-1.2); Hematocrit 33.6 % (42.0-52.0); Hemoglobin 10.5 g/dL (14.0-18.0); Immature Granulocyte Absolute 0.07 K/mm3 (0.00-0.031); Immature Granulocyte Percent A 0.9 % (0-0.5); Lymphocytes Absolute Auto 0.22 K/mm3 (0.9-3.2); Lymphocytes Percent Auto 2.8 % (18.3-44.2); Mean Corpuscular HGB Conc 31.3 g/dl (32-36); Mean Corpuscular Volume 76.9 fl (80-100); Mean Platelet Volume 8.8 fl (7.4-10.4); Monocytes Absolute Auto 0.7 K/mm3 (0.1-0.6); Monocytes Percent Auto 8.6 % (2.6-8.5); Neutrophils Percent Auto 87.6 % (45.5-73.1); Platelet Count Result 210 k/mm3 (150-375); Red Blood Count 4.37 M/mm3 (4.6-6.20); Red Cell Distribution Width 15.9 % (11.5-14.5)
[2021-07-20 07:00] LABS: Alanine Aminotransferase 25 U/L (4-50); Albumin Level 4.6 g/dL (3.5-5.1); Alkaline Phosphatase 177 U/L (38-126); Anion Gap 9 mmol/L (8-16); Aspartate Amino Transferase 56 U/L (17-59); Bilirubin,Total 0.5 mg/dL (0.2-1.3); Blood Urea Nitrogen 19 mg/dL (9-20); Calcium 9.3 mg/dL (8.4-10.2); Carbon Dioxide 33 mmol/L (22-30); Chloride 89 mmol/L (98-107); Estimated CRCL calculation 69 ml/min; Estimated Glomerular Filt Rate > 60; Glucose 169 mg/dL (65-110); Sodium 131 mmol/L (137-145)
[2021-07-20 07:03] LABS: Potassium 3.8 mmol/L (3.4-5.0)
[2021-07-20 07:18] LABS: Troponin I 0.149 ng/mL (0.000-0.034)
--- NOTE | 2021-07-20 07:32 | PC.NURSE ---
Patient report given to PAUL Wynne. All questions answered and care of patient transferred.
[2021-07-20 07:55] LABS: Creatinine Urine 19.4 mg/dL
[2021-07-20 08:11] LABS: Sodium Urine Random 78 meq/L
[2021-07-20 08:37] LABS: Glucose Point of Care 163 mg/dl (65-105)
[2021-07-20] MEDS: traMADol HCL (*CRX) 50 MG TABLET PO ×3 (08:46→22:17)
[2021-07-20] MEDS: LACTIC ACID 12% LOTION 225 BTL 1 APPLIC TOPICAL (08:46)
[2021-07-20] MEDS: GABAPENTIN 100 MG CAPSULE BY MOUTH ×3 (08:47→16:31)
[2021-07-20] MEDS: PANTOPRAZOLE 40 MG TABLET PO ×2 (08:47→16:32)
[2021-07-20] MEDS: MULTIVITAMINS THERAPEUTIC TAB (*BKC) 1 TABLET PO (08:47)
[2021-07-20] MEDS: MAGNESIUM OXIDE 400 MG TABLET PO (08:47)
[2021-07-20] MEDS: predniSONE 2.5 MG TABLET PO (08:47)
[2021-07-20] MEDS: ASPIRIN 325 MG ENTERIC TABLET PO (08:47)
[2021-07-20] MEDS: FOLIC ACID 1 MG TABLET PO (08:47)
[2021-07-20] MEDS: SIMVASTATIN 10 MG TABLET PO (08:47)
[2021-07-20] MEDS: amLODIPine BESYLATE 5 MG TABLET 10 MG PO (08:48)
[2021-07-20] MEDS: METOPROLOL TARTRATE 25 MG TABLET PO ×2 (08:48→22:15)
[2021-07-20] MEDS: SERTRALINE HCL 50 MG TABLET PO (08:48)
[2021-07-20] MEDS: FUROSEMIDE 40 MG TABLET PO (09:31)
--- NOTE | 2021-07-20 11:03 | P.PNIM_ITS ---
Progress Note: A&P Assessment and Plan (1) Shortness of breath: Code(s): R06.02 - Shortness of breath Status: Acute Assessment and Plan: Patient has chronic dyspnea that has worsened over the past 3 days * Likely related to volume overload with elevated BNP and signs of pulmonary vascular congestion on CXR. * Continue with diuresis * Also likely worsened by COPD, noted to be wheezing en route, though no whee zing on my exam today. * Continue scheduled nebulizers and maintenance inhalers * Pulmonary embolism less likely based on history and evaluation. Wells score for PE is 1.5, indicating low risk. Venous Doppler pending given edema and decreased mobility. (2) Congestive heart failure: Code(s): I50.9 - Heart failure, unspecified Status: Acute Assessment and Plan: Last echo May 2021 showed normal EF 65-70% with indeterminate diastolic dysfunction. BNP is 5800. * Resume home Lasix 40 mg daily * Monitor intake and output. Weigh daily. Monitor volume status closely. * Heart healthy diet (3) Chronic respiratory failure with hypoxia, on home O2 therapy: Code(s): J96.11 - Chronic respiratory failure with hypoxia; Z99.81 - Dependence on supplemental oxygen Status: Acute Assessment and Plan: He is on 2.5-3 L at home. Chronic respiratory failure likely related to COPD, though he is not able to specify details. * Currently maintaining adequate oxygenation on his typical home oxygen requirements * Continue supplemental O2 as needed. Monitor O2 sats (4) Chronic obstructive pulmonary disease: Code(s): J44.9 - Chronic obstructive pulmonary disease, unspecified Status: Chronic Assessment and Plan: Reportedly was wheezing on presentation and received IV Decadron and nebulizers. No evidence of wheezing on my exam today. * Continue scheduled nebulizers * Resume home Spiriva * Continue chronic low-dose prednisone 2.5 mg daily (5) Persistent atrial fibrillation: Code(s): I48.19 - Other persistent atrial fibrillation Status: Acute Assessment and Plan: Rate is controlled. * Not on long-term anticoagulation, presumably due to fall risk. * Continue home metoprolol 25 mg b.i.d. (6) Elevated troponin: Code(s): R77.8 - Other specified abnormalities of plasma proteins Status: Acute Assessment and Plan: Troponins are persistently elevated and have remained flat. * Not felt to be consistent with acute coronary syndrome. No further cardiac workup needed at this time. * He does complain chest tightness that is musculoskeletal in nature. Supportive care for this. Analgesics as needed. (7) Hyponatremia: Code(s): E87.1 - Hypo-osmolality and hyponatremia Status: Acute Assessment and Plan: A chronic finding for this patient but is lower than what it typically runs. Sodium 122 at presentation. He admits to drinking 8, 12 oz glasses of water a day and he will occasionally have a beer or two each night as well. He does appear hypervolemic. * Sodium increased to 131 (9 points in 18 hours) without intervention, aside from fluid restriction * Will discontinue fluid restriction and allow free water intake * Continue with diuresis * Recheck sodium this afternoon to ensure he is not correcting too rapidly * Urine osmolality is pending. Urine sodium is elevated, though he is on diuretics. (8) Chronic anemia: Code(s): D64.9 - Anemia, unspecified Status: Acute
--- NOTE | 2021-07-20 11:03 | PM.IMPN ---
Progress Note: A&P Assessment and Plan (1) Shortness of breath: Code(s): R06.02 - Shortness of breath Status: Acute Assessment and Plan: Patient has chronic dyspnea that has worsened over the past 3 days Likely related to volume overload with elevated BNP and signs of pulmonary vascular congestion on CXR. Continue with diuresis Also likely worsened by COPD, noted to be wheezing en route, though no wheezing on my exam today. Continue scheduled nebulizers and maintenance inhalers Pulmonary embolism less likely based on history and evaluation. Wells score for PE is 1.5, indicating low risk. Venous Doppler pending given edema and decreased mobility. (2) Congestive heart failure: Code(s): I50.9 - Heart failure, unspecified Status: Acute Assessment and Plan: Last echo May 2021 showed normal EF 65-70% with indeterminate diastolic dysfunction. BNP is 5800. Resume home Lasix 40 mg daily Monitor intake and output. Weigh daily. Monitor volume status closely. Heart healthy diet (3) Chronic respiratory failure with hypoxia, on home O2 therapy: Code(s): J96.11 - Chronic respiratory failure with hypoxia; Z99.81 - Dependence on supplemental oxygen Status: Acute Assessment and Plan: He is on 2.5-3 L at home. Chronic respiratory failure likely related to COPD, though he is not able to specify details. Currently maintaining adequate oxygenation on his typical home oxygen requirements Continue supplemental O2 as needed. Monitor O2 sats (4) Chronic obstructive pulmonary disease: Code(s): J44.9 - Chronic obstructive pulmonary disease, unspecified Status: Chronic Assessment and Plan: Reportedly was wheezing on presentation and received IV Decadron and nebulizers. No evidence of wheezing on my exam today. Continue scheduled nebulizers Resume home Spiriva Continue chronic low-dose prednisone 2.5 mg daily (5) Persistent atrial fibrillation: Code(s): I48.19 - Other persistent atrial fibrillation Status: Acute Assessment and Plan: Rate is controlled. Not on long-term anticoagulation, presumably due to fall risk. Continue home metoprolol 25 mg b.i.d. (6) Elevated troponin: Code(s): R77.8 - Other specified abnormalities of plasma proteins Status: Acute Assessment and Plan: Troponins are persistently elevated and have remained flat. Not felt to be consistent with acute coronary syndrome. No further cardiac workup needed at this time. He does complain chest tightness that is musculoskeletal in nature. Supportive care for this. Analgesics as needed. (7) Hyponatremia: Code(s): E87.1 - Hypo-osmolality and hyponatremia Status: Acute Assessment and Plan: A chronic finding for this patient but is lower than what it typically runs. Sodium 122 at presentation. He admits to drinking 8, 12 oz glasses of water a day and he will occasionally have a beer or two each night as well. He does appear hypervolemic. Sodium increased to 131 (9 points in 18 hours) without intervention, aside from fluid restriction Will discontinue fluid restriction and allow free water intake Continue with diuresis Recheck sodium this afternoon to ensure he is not correcting too rapidly Urine osmolality is pending. Urine sodium is elevated, though he is on diuretics. (8) Chronic anemia: Code(s): D64.9 - Anemia, unspecified Status: Acute Assessment and Plan: Hemoglobin and hematocrit are stable on review of previous labs. (9) Type 2 diabetes mellitus: Code(s): E11.9 - Type 2 diabetes mellitus without complications Status: Chronic Assessment and Plan: Recent hemoglobin A1c was 6.6%. Continue sliding scale insulin, Accu-Cheks, and hypoglycemic protocol. Subjective Date/time seen: 07/20/21 11:03 Interval history: Date of service: 07/20/2021
[2021-07-20 11:30] LABS: Glucose Point of Care 130 mg/dl (65-105)
[2021-07-20 11:47] LABS: Sodium 132 mmol/L (137-145)
[2021-07-20 17:00] LABS: Glucose Point of Care 167 mg/dl (65-105)
[2021-07-20 20:38] LABS: Sodium 131 mmol/L (137-145)
[2021-07-20 21:33] LABS: Glucose Point of Care 128 mg/dl (65-105)
[2021-07-21] VITALS (21 sets, daily range): BP systolic 133–157; BP diastolic 71–79; PULSE 49–94; RESP 12–20; TEMP 36.1–36.7; O2SAT 94–100
[2021-07-21] MEDS: IPRATROPIUM BR 0.02% INH SOLN 0.5 MG/2.5 ML VIAL INHALATION ×4 (02:36→20:30)
[2021-07-21 05:54] LABS: Anion Gap 9 mmol/L (8-16); Blood Urea Nitrogen 17 mg/dL (9-20); Calcium 9.2 mg/dL (8.4-10.2); Carbon Dioxide 32 mmol/L (22-30); Chloride 94 mmol/L (98-107); Estimated CRCL calculation 69 ml/min; Estimated Glomerular Filt Rate > 60; Glucose 125 mg/dL (65-110); Potassium 3.6 mmol/L (3.4-5.0); Sodium 135 mmol/L (137-145)
[2021-07-21 07:51] LABS: Glucose Point of Care 137 mg/dl (65-105)
[2021-07-21] MEDS: MULTIVITAMINS THERAPEUTIC TAB (*BKC) 1 TABLET PO (08:14)
[2021-07-21] MEDS: amLODIPine BESYLATE 5 MG TABLET 10 MG PO (08:14)
[2021-07-21] MEDS: GABAPENTIN 100 MG CAPSULE BY MOUTH ×3 (08:14→16:45)
[2021-07-21] MEDS: PANTOPRAZOLE 40 MG TABLET PO ×2 (08:14→16:45)
[2021-07-21] MEDS: SERTRALINE HCL 50 MG TABLET PO (08:14)
[2021-07-21] MEDS: METOPROLOL TARTRATE 25 MG TABLET PO ×2 (08:14→21:23)
[2021-07-21] MEDS: MAGNESIUM OXIDE 400 MG TABLET PO (08:14)
[2021-07-21] MEDS: ASPIRIN 325 MG ENTERIC TABLET PO (08:14)
[2021-07-21] MEDS: FOLIC ACID 1 MG TABLET PO (08:14)
[2021-07-21] MEDS: predniSONE 2.5 MG TABLET PO (08:14)
[2021-07-21] MEDS: SIMVASTATIN 10 MG TABLET PO (08:14)
[2021-07-21] MEDS: LACTIC ACID 12% LOTION 225 BTL 1 APPLIC TOPICAL (08:16)
[2021-07-21] MEDS: traMADol HCL (*CRX) 50 MG TABLET PO ×2 (08:16→17:29)
[2021-07-21] MEDS: FUROSEMIDE 40 MG TABLET PO (08:16)
[2021-07-21 11:54] LABS: Glucose Point of Care 109 mg/dl (65-105)
--- NOTE | 2021-07-21 12:29 | PM.IMPN ---
Progress Note: A&P Assessment and Plan (1) Shortness of breath: Code(s): R06.02 - Shortness of breath Status: Acute Assessment and Plan: Likely related to volume overload with elevated BNP and signs of pulmonary vascular congestion on CXR. Continue with diuresis Also likely worsened by COPD, noted to be wheezing en route, though no wheezing on my exam today. Continue scheduled nebulizers and maintenance inhalers Pulmonary embolism less likely based on history and evaluation. Wells score for PE is 1.5, indicating low risk Venous Doppler--->No lower extremity deep venous thrombosis (2) Congestive heart failure: Code(s): I50.9 - Heart failure, unspecified Status: Acute Assessment and Plan: Last echo May 2021 showed normal EF 65-70% with indeterminate diastolic dysfunction BNP 5800 on admission Continue home Lasix 40 mg daily Monitor intake and output Weigh daily Monitor volume status closely Heart healthy diet (3) Chronic respiratory failure with hypoxia, on home O2 therapy: Code(s): J96.11 - Chronic respiratory failure with hypoxia; Z99.81 - Dependence on supplemental oxygen Status: Acute Assessment and Plan: On 2.5-3 L at home Chronic respiratory failure likely related to COPD Currently maintaining adequate oxygenation on his typical home oxygen requirements Continue supplemental O2 as needed Monitor O2 sats (4) Chronic obstructive pulmonary disease: Code(s): J44.9 - Chronic obstructive pulmonary disease, unspecified Status: Chronic Assessment and Plan: Reportedly was wheezing on presentation and received IV Decadron and nebulizers Continue scheduled nebulizers Continue home Spiriva Continue chronic low-dose prednisone 2.5 mg daily (5) Persistent atrial fibrillation: Code(s): I48.19 - Other persistent atrial fibrillation Status: Acute Assessment and Plan: Rate is controlled Not on long-term anticoagulation, presumably due to fall risk Continue home metoprolol 25 mg b.i.d. (6) Elevated troponin: Code(s): R77.8 - Other specified abnormalities of plasma proteins Status: Acute Assessment and Plan: Troponins are persistently elevated, flat trend Not felt to be consistent with acute coronary syndrome No further cardiac workup needed at this time (7) Hyponatremia: Code(s): E87.1 - Hypo-osmolality and hyponatremia Status: Acute Assessment and Plan: Chronic Na+ 122 at presentation. He admits to drinking 8, 12 oz glasses of water a day and he will occasionally have a beer or two each night as well. He does appear hypervolemic. Up to 131 (9 points in 18 hours) with fluid restriction, 135 today Continue with diuresis Urine osmolality is pending Urine sodium 78 (8) Chronic anemia: Code(s): D64.9 - Anemia, unspecified Status: Acute Assessment and Plan: Hemoglobin and hematocrit are stable on review of previous labs (9) Type 2 diabetes mellitus: Code(s): E11.9 - Type 2 diabetes mellitus without complications Status: Chronic Assessment and Plan: Recent hemoglobin A1c was 6.6% Continue sliding scale insulin, Accu-Cheks, and hypoglycemic protocol Monitor Subjective Date/time seen: 07/21/21 12:29 Interval history: Pt seen and evaluated; overall he has improved clinically; no acute events overnight; denies any increased SOB or CP Review of Systems Review of Systems: All systems reviewed & are unremarkable except as noted in HPI and below Exam Const: General: no acute distress, alert and awake Orientation/consciousness: patient oriented x3 HENMT: Head: normocephalic and atraumatic Ears: hearing grossly normal bilaterally and external ears normal Face and sinus: face symmetric Mouth: Yes Normal oral and palatal mucosa present Eyes: EOM: EOMs intact bilaterally Neck: Neck: full ROM, trachea midline and no JVD Chest: Chest palpation & inspecti
[2021-07-21 16:40] LABS: Glucose Point of Care 139 mg/dl (65-105)
[2021-07-21 20:53] LABS: Glucose Point of Care 126 mg/dl (65-105)
[2021-07-21] MEDS: ACETAMINOPHEN 500 MG TABLET 1000 MG PO (21:24)
[2021-07-22] VITALS (20 sets, daily range): BP systolic 119–172; BP diastolic 66–94; PULSE 44–86; RESP 14–22; TEMP 35.7–36.5; O2SAT 95–100
[2021-07-22] MEDS: IPRATROPIUM BR 0.02% INH SOLN 0.5 MG/2.5 ML VIAL INHALATION ×4 (02:06→19:37)
[2021-07-22 06:16] LABS: Hematocrit 36.4 % (42.0-52.0); Hemoglobin 10.8 g/dL (14.0-18.0); Mean Corpuscular HGB Conc 29.7 g/dl (32-36); Mean Corpuscular Hemoglobin 24.3 pg (26-34); Mean Corpuscular Volume 81.8 fl (80-100); Mean Platelet Volume 8.5 fl (7.4-10.4); Platelet Count Result 202 k/mm3 (150-375); Red Blood Count 4.45 M/mm3 (4.6-6.20); Red Cell Distribution Width 16.4 % (11.5-14.5); White Blood Count 7.7 K/mm3 (4.5-10.0)
[2021-07-22 06:30] LABS: Anion Gap 4 mmol/L (8-16); Blood Urea Nitrogen 16 mg/dL (9-20); Calcium 8.7 mg/dL (8.4-10.2); Carbon Dioxide 33 mmol/L (22-30); Chloride 95 mmol/L (98-107); Estimated CRCL calculation 77 ml/min; Estimated Glomerular Filt Rate > 60; Glucose 103 mg/dL (65-110); Potassium 3.6 mmol/L (3.4-5.0); Sodium 132 mmol/L (137-145)
[2021-07-22] MEDS: FOLIC ACID 1 MG TABLET PO (08:09)
[2021-07-22] MEDS: ASPIRIN 325 MG ENTERIC TABLET PO (08:09)
[2021-07-22] MEDS: amLODIPine BESYLATE 5 MG TABLET 10 MG PO (08:09)
[2021-07-22] MEDS: FUROSEMIDE 40 MG TABLET PO (08:10)
[2021-07-22] MEDS: GABAPENTIN 100 MG CAPSULE BY MOUTH ×3 (08:10→17:30)
[2021-07-22] MEDS: MAGNESIUM OXIDE 400 MG TABLET PO (08:10)
[2021-07-22] MEDS: LACTIC ACID 12% LOTION 225 BTL 1 APPLIC TOPICAL (08:10)
[2021-07-22] MEDS: PANTOPRAZOLE 40 MG TABLET PO ×2 (08:11→17:30)
[2021-07-22] MEDS: MULTIVITAMINS THERAPEUTIC TAB (*BKC) 1 TABLET PO (08:11)
[2021-07-22] MEDS: METOPROLOL TARTRATE 25 MG TABLET PO ×2 (08:11→21:51)
[2021-07-22 08:12] LABS: Glucose Point of Care 99 mg/dl (65-105)
[2021-07-22] MEDS: SIMVASTATIN 10 MG TABLET PO (08:12)
[2021-07-22] MEDS: SERTRALINE HCL 50 MG TABLET PO (08:12)
[2021-07-22] MEDS: predniSONE 2.5 MG TABLET PO (08:12)
--- NOTE | 2021-07-22 10:05 | PC.NURSE ---
[employer]PER[employer] notified of patient sdoium level, she is aware, believes it to be chronic and no orders noted at this time.
--- NOTE | 2021-07-22 10:29 | PC.NURSE ---
1000- RT has not been in with patient to administer 0800 nebulizers, called RT to come to patient room.
--- NOTE | 2021-07-22 11:16 | PM.IMPN ---
Progress Note: A&P Assessment and Plan (1) Shortness of breath: Code(s): R06.02 - Shortness of breath Status: Acute Assessment and Plan: Likely related to volume overload with elevated BNP and signs of pulmonary vascular congestion on CXR Continue with diuresis Also likely worsened by COPD, noted to be wheezing en route Continue scheduled nebulizers and maintenance inhalers Pulmonary embolism less likely based on history and evaluation. Wells score for PE is 1.5, indicating low risk Venous Doppler--->No lower extremity deep venous thrombosis (2) Congestive heart failure: Code(s): I50.9 - Heart failure, unspecified Status: Acute Assessment and Plan: Last echo May 2021 showed normal EF 65-70% with indeterminate diastolic dysfunction BNP 5800 on admission Continue home Lasix 40 mg daily Monitor intake and output Weigh daily Monitor volume status closely Heart healthy diet (3) Chronic respiratory failure with hypoxia, on home O2 therapy: Code(s): J96.11 - Chronic respiratory failure with hypoxia; Z99.81 - Dependence on supplemental oxygen Status: Acute Assessment and Plan: On 2.5-3 L at home, at baseline Chronic respiratory failure likely related to COPD Currently maintaining adequate oxygenation on his typical home oxygen requirements Continue supplemental O2 as needed Monitor O2 sats (4) Chronic obstructive pulmonary disease: Code(s): J44.9 - Chronic obstructive pulmonary disease, unspecified Status: Chronic Assessment and Plan: Reportedly was wheezing on presentation and received IV Decadron and nebulizers Continue scheduled nebulizers Continue home Spiriva Continue chronic low-dose prednisone 2.5 mg daily (5) Persistent atrial fibrillation: Code(s): I48.19 - Other persistent atrial fibrillation Status: Acute Assessment and Plan: Rate is controlled Not on long-term anticoagulation, presumably due to fall risk Continue home metoprolol 25 mg b.i.d. (6) Elevated troponin: Code(s): R77.8 - Other specified abnormalities of plasma proteins Status: Acute Assessment and Plan: Troponins are persistently elevated, flat trend Not felt to be consistent with acute coronary syndrome No further cardiac workup needed at this time (7) Hyponatremia: Code(s): E87.1 - Hypo-osmolality and hyponatremia Status: Acute Assessment and Plan: Chronic Na+ 122 at presentation. He admits to drinking 8, 12 oz glasses of water a day and he will occasionally have a beer or two each night as well. He does appear hypervolemic. Up to 131 (9 points in 18 hours) with fluid restriction, 135-->132 today Continue with diuresis Urine osmolality is pending Urine sodium 78 (8) Chronic anemia: Code(s): D64.9 - Anemia, unspecified Status: Acute Assessment and Plan: Hemoglobin and hematocrit are stable on review of previous labs (9) Type 2 diabetes mellitus: Code(s): E11.9 - Type 2 diabetes mellitus without complications Status: Chronic Assessment and Plan: Recent hemoglobin A1c was 6.6% Continue sliding scale insulin, Accu-Cheks, and hypoglycemic protocol Monitor Subjective Date/time seen: 07/22/21 11:16 Interval history: Pt seen and evaluated; he states that he feels good; no acute events overnight; denies any increased SOB or CP Review of Systems Review of Systems: All systems reviewed & are unremarkable except as noted in HPI and below Exam Const: General: no acute distress, alert and awake Orientation/consciousness: patient oriented x3 HENMT: Head: normocephalic and atraumatic Ears: hearing grossly normal bilaterally and external ears normal Face and sinus: face symmetric Mouth: Yes Normal oral and palatal mucosa present Eyes: Pupils: Equal, round and reactive pupils present EOM: EOMs intact bilaterally Neck: Neck: full ROM, trachea midline and no JVD Chest: C
[2021-07-22] MEDS: traMADol HCL (*CRX) 50 MG TABLET PO ×3 (11:17→21:50)
[2021-07-22 12:09] LABS: Glucose Point of Care 114 mg/dl (65-105)
[2021-07-22 17:21] LABS: Glucose Point of Care 174 mg/dl (65-105)
[2021-07-22 21:13] LABS: Glucose Point of Care 112 mg/dl (65-105)
[2021-07-23] VITALS (15 sets, daily range): BP systolic 146–157; BP diastolic 84–91; PULSE 48–73; RESP 15–20; TEMP 35.5–36.2; O2SAT 96–100
[2021-07-23] MEDS: traMADol HCL (*CRX) 50 MG TABLET PO ×2 (03:45→11:28)
[2021-07-23 05:04] LABS: Osmolality, Urine 270 mOsm/kg (50-1200)
--- NOTE | 2021-07-23 05:18 | PCRCNOTE ---
Window of time for administration has passed. See next scheduled administration.
[2021-07-23 05:58] LABS: Hematocrit 38.4 % (42.0-52.0); Hemoglobin 11.3 g/dL (14.0-18.0); Mean Corpuscular HGB Conc 29.4 g/dl (32-36); Mean Corpuscular Hemoglobin 23.3 pg (26-34); Mean Corpuscular Volume 79.3 fl (80-100); Mean Platelet Volume 8.9 fl (7.4-10.4); Platelet Count Result 243 k/mm3 (150-375); Red Blood Count 4.84 M/mm3 (4.6-6.20); Red Cell Distribution Width 15.9 % (11.5-14.5); White Blood Count 7.5 K/mm3 (4.5-10.0)
[2021-07-23 06:12] LABS: Anion Gap 7 mmol/L (8-16); Blood Urea Nitrogen 16 mg/dL (9-20); Calcium 8.9 mg/dL (8.4-10.2); Carbon Dioxide 33 mmol/L (22-30); Chloride 94 mmol/L (98-107); Estimated CRCL calculation 69 ml/min; Estimated Glomerular Filt Rate > 60; Glucose 106 mg/dL (65-110); Potassium 3.7 mmol/L (3.4-5.0); Sodium 134 mmol/L (137-145)
[2021-07-23] MEDS: IPRATROPIUM BR 0.02% INH SOLN 0.5 MG/2.5 ML VIAL INHALATION (07:41)
[2021-07-23 08:07] LABS: Glucose Point of Care 115 mg/dl (65-105)
[2021-07-23] MEDS: METOPROLOL TARTRATE 25 MG TABLET PO (08:07)
[2021-07-23] MEDS: FUROSEMIDE 40 MG TABLET PO (08:07)
[2021-07-23] MEDS: PANTOPRAZOLE 40 MG TABLET PO (08:07)
[2021-07-23] MEDS: GABAPENTIN 100 MG CAPSULE BY MOUTH ×2 (08:07→12:29)
[2021-07-23] MEDS: ASPIRIN 325 MG ENTERIC TABLET PO (08:08)
[2021-07-23] MEDS: predniSONE 2.5 MG TABLET PO (08:08)
[2021-07-23] MEDS: LACTIC ACID 12% LOTION 225 BTL 1 APPLIC TOPICAL (08:08)
[2021-07-23] MEDS: MAGNESIUM OXIDE 400 MG TABLET PO (08:08)
[2021-07-23] MEDS: amLODIPine BESYLATE 5 MG TABLET 10 MG PO (08:08)
[2021-07-23] MEDS: MULTIVITAMINS THERAPEUTIC TAB (*BKC) 1 TABLET PO (08:08)
[2021-07-23] MEDS: FOLIC ACID 1 MG TABLET PO (08:08)
[2021-07-23] MEDS: SERTRALINE HCL 50 MG TABLET PO (08:09)
[2021-07-23] MEDS: SIMVASTATIN 10 MG TABLET PO (08:09)
[2021-07-23 10:14] LABS: EDCOVIDSCREEN Negative (Negative)
[2021-07-23 11:44] LABS: Glucose Point of Care 116 mg/dl (65-105)
--- NOTE | 2021-07-23 12:31 | PM.DS ---
DS: Admitting Diagnosis Discharge Date 07/23/2021 Admitting Diagnosis Shortness of breath DS: Discharge Diagnosis Discharge Diagnosis (1) Shortness of breath: Code(s): R06.02 - Shortness of breath Status: Acute Assessment and Plan: Likely related to volume overload with elevated BNP and signs of pulmonary vascular congestion on CXR Continue Lasix Also likely worsened by COPD, noted to be wheezing en route Continue scheduled nebulizers and maintenance inhalers Pulmonary embolism less likely based on history and evaluation. Wells score for PE is 1.5, indicating low risk Venous Doppler--->No lower extremity deep venous thrombosis (2) Congestive heart failure: Code(s): I50.9 - Heart failure, unspecified Status: Acute Assessment and Plan: Last echo May 2021 showed normal EF 65-70% with indeterminate diastolic dysfunction BNP 5800 on admission Continue home Lasix 40 mg daily Monitor intake and output Weigh daily Monitor volume status closely Heart healthy diet (3) Chronic respiratory failure with hypoxia, on home O2 therapy: Code(s): J96.11 - Chronic respiratory failure with hypoxia; Z99.81 - Dependence on supplemental oxygen Status: Acute Assessment and Plan: On 2.5-3 L at home, at baseline Chronic respiratory failure likely related to COPD Currently maintaining adequate oxygenation on his typical home oxygen requirements Continue supplemental O2 as needed Monitor O2 sats (4) Chronic obstructive pulmonary disease: Code(s): J44.9 - Chronic obstructive pulmonary disease, unspecified Status: Chronic Assessment and Plan: Reportedly was wheezing on presentation and received IV Decadron and nebulizers Continue scheduled nebulizers Continue home Spiriva Continue chronic low-dose prednisone 2.5 mg daily (5) Persistent atrial fibrillation: Code(s): I48.19 - Other persistent atrial fibrillation Status: Acute Assessment and Plan: Rate is controlled Not on long-term anticoagulation, presumably due to fall risk Continue home metoprolol 25 mg b.i.d. (6) Elevated troponin: Code(s): R77.8 - Other specified abnormalities of plasma proteins Status: Acute Assessment and Plan: Troponins are persistently elevated, flat trend Not felt to be consistent with acute coronary syndrome No further cardiac workup needed at this time (7) Hyponatremia: Code(s): E87.1 - Hypo-osmolality and hyponatremia Status: Acute Assessment and Plan: Chronic Na+ 122 at presentation. He admits to drinking 8, 12 oz glasses of water a day and he will occasionally have a beer or two each night as well. He does appear hypervolemic. Up to 131 (9 points in 18 hours) with fluid restriction, 135-->132 today Continue with diuresis Urine osmolality is pending Urine sodium 78 (8) Chronic anemia: Code(s): D64.9 - Anemia, unspecified Status: Acute Assessment and Plan: Hemoglobin and hematocrit are stable on review of previous labs (9) Type 2 diabetes mellitus: Code(s): E11.9 - Type 2 diabetes mellitus without complications Status: Chronic Assessment and Plan: Recent hemoglobin A1c was 6.6% Continue sliding scale insulin, Accu-Cheks, and hypoglycemic protocol Monitor DS: Summary Hospital Course Hospital Course: Mr. Mcguire is a 75-year-old male with multiple medical problems including chronic respiratory failure (on 2.5 to 3 L nasal cannula at home), COPD, Afib, type 2 DM, and HTN who presented to the emergency department via EMS from home with complaints of shortness of breath. He has chronic IYER which had progressively worsened for 3 days. He had associated wheezing,without relief with his nebulizers at home. He also reported orthopnea and lower extremity edema though he does not think that is any worse than usual. The patient has a chronic cough, mainly in the mornings, which was unchanged. He had no fev
--- NOTE | 2021-07-23 13:12 | PCCCNOTE ---
Unable to reach daughters Adwoa, Annalee or Annetta. Spoke with daughter, Roberta, who will contact one of her local siblings to provide transportation to rehab. Relayed information to [facility] in [facility]
--- NOTE | 2021-07-23 14:08 | PM.IMPN ---
Progress Note: A&P Assessment and Plan (1) Shortness of breath: Code(s): R06.02 - Shortness of breath Status: Acute Assessment and Plan: Likely related to volume overload with elevated BNP and signs of pulmonary vascular congestion on CXR Continue with diuresis Also likely worsened by COPD, noted to be wheezing en route Continue scheduled nebulizers and maintenance inhalers Pulmonary embolism less likely based on history and evaluation. Wells score for PE is 1.5, indicating low risk Venous Doppler-->No lower extremity deep venous thrombosis (2) Congestive heart failure: Code(s): I50.9 - Heart failure, unspecified Status: Acute Assessment and Plan: Last echo May 2021 showed normal EF 65-70% with indeterminate diastolic dysfunction BNP 5800 on admission Continue home Lasix 40 mg daily Monitor intake and output Weigh daily Monitor volume status closely Heart healthy diet (3) Chronic respiratory failure with hypoxia, on home O2 therapy: Code(s): J96.11 - Chronic respiratory failure with hypoxia; Z99.81 - Dependence on supplemental oxygen Status: Acute Assessment and Plan: On 2.5-3 L at home, at baseline Chronic respiratory failure likely related to COPD Currently maintaining adequate oxygenation on his typical home oxygen requirements Continue supplemental O2 as needed Monitor O2 sats (4) Chronic obstructive pulmonary disease: Code(s): J44.9 - Chronic obstructive pulmonary disease, unspecified Status: Chronic Assessment and Plan: Reportedly was wheezing on presentation and received IV Decadron and nebulizers Continue scheduled nebulizers Continue home Spiriva Continue chronic low-dose prednisone 2.5 mg daily (5) Persistent atrial fibrillation: Code(s): I48.19 - Other persistent atrial fibrillation Status: Acute Assessment and Plan: Rate is controlled Not on long-term anticoagulation, presumably due to fall risk Continue home metoprolol 25 mg b.i.d. (6) Elevated troponin: Code(s): R77.8 - Other specified abnormalities of plasma proteins Status: Acute Assessment and Plan: Troponins are persistently elevated, flat trend Not felt to be consistent with acute coronary syndrome No further cardiac workup needed at this time (7) Hyponatremia: Code(s): E87.1 - Hypo-osmolality and hyponatremia Status: Acute Assessment and Plan: Chronic Na+ 122 at presentation. He admits to drinking 8, 12 oz glasses of water a day and he will occasionally have a beer or two each night as well. He does appear hypervolemic. Up to 131 (9 points in 18 hours) with fluid restriction, 135-->132-->134 today Continue with diuresis Urine osmolality is pending Urine sodium 78 (8) Chronic anemia: Code(s): D64.9 - Anemia, unspecified Status: Acute Assessment and Plan: Hemoglobin and hematocrit are stable on review of previous labs (9) Type 2 diabetes mellitus: Code(s): E11.9 - Type 2 diabetes mellitus without complications Status: Chronic Assessment and Plan: Recent hemoglobin A1c was 6.6% Continue sliding scale insulin, Accu-Cheks, and hypoglycemic protocol Monitor Time Spent With Patient Time: d/c pending transportation Subjective Date/time seen: 07/23/21 14:08 Interval history: Pt seen and evaluated; he states that he feels good; no acute events overnight; denies any increased SOB or CP Review of Systems Review of Systems: All systems reviewed & are unremarkable except as noted in HPI and below Exam Const: General: no acute distress, alert and awake Orientation/consciousness: patient oriented x3 HENMT: Head: normocephalic and atraumatic Ears: hearing grossly normal bilaterally and external ears normal Face and sinus: face symmetric Mouth: Yes Normal oral and palatal mucosa present Eyes: Pupils: Equal, round and reactive pupils present EOM: EOMs intact bilaterally
[2021-07-24 17:27] LABS: SARS-CoV-2 RNA PCR Negative
== END 2021-07-23 16:18 | DRG 292 ==
LOC: ANHED 17:27 → ANHCPC 07-20 07:08
PROVIDERS: Nurse Practitioner Adult Health; Physician Assistant; Admitting Provider Family Medicine; Emergency Provider General Practice; PCP Emergency Medicine; Visit Provider Physician Assistant
DX: I11.0 Hypertensive heart disease with heart failure (principal); J96.11 Chronic respiratory failure with hypoxia; I48.19 Other persistent atrial fibrillation; J44.1 Chronic obstructive pulmonary disease with (acute) exacerbation; E87.1 Hypo-osmolality and hyponatremia; I50.33 Acute on chronic diastolic (congestive) heart failure; Z20.822 Contact with and (suspected) exposure to COVID-19; Z99.81 Dependence on supplemental oxygen; Z89.512 Acquired absence of left leg below knee; F10.10 Alcohol abuse, uncomplicated; Y90.9 Presence of alcohol in blood, level not specified; F41.9 Anxiety disorder, unspecified; J45.909 Unspecified asthma, uncomplicated; N40.0 Benign prostatic hyperplasia without lower urinary tract symptoms; Z86.73 Personal history of transient ischemic attack (TIA), and cerebral infarction without residual deficits; F32.9 Major depressive disorder, single episode, unspecified; E11.42 Type 2 diabetes mellitus with diabetic polyneuropathy; Z87.891 Personal history of nicotine dependence; K21.9 Gastro-esophageal reflux disease without esophagitis; E78.2 Mixed hyperlipidemia; R77.8 Other specified abnormalities of plasma proteins; Z89.431 Acquired absence of right foot
CPT/HCPCS: 36415; 36600; 71045; 80048; 80053; 82375; 82570; 82805; 82948; 83050; 83735; 83880; 83930; 83935; 84295; 84300; 84443; 84484; 85025; 85027; 87426; 93005; 93970; 94640; 96374; 97110; 97161; 97166; 97530; 97535; 99285; A9270; C9803; J1940; J7512; U0003; U0005

== ENCOUNTER 2021-10-11 10:38 | Emergency (ER) | payer OTHER, MEDICAID, SELFPAY ==
--- NOTE | ~2021-10-11 | CT_ITS ---
EXAMINATION: CT brain wo con, CT cervical spine wo con EXAM DATE: 10/11/2021 12:05 INDICATION: Posterior head injury on blood thinners. TECHNIQUE: Spiral CT of the head was performed without contrast. Axial, coronal and sagittal images were reviewed. Spiral CT of the cervical spine was performed without contrast. Axial images were rev iewed. Coronal and sagittal reformatted images were also reviewed. The dose-length product (DLP) fo r this examination was 681.00 (accession [id number]), 571.59 (accession [id number]) mGy-cm. The exposure was tailored according to patient size, and iterative reconstruction (ASIR) was used as additional dose reduction technique. Comparison is made to prior examination from 07/05/[address], cervical spine CT. FINDINGS: HEAD CT: There is no acute intraparenchymal hemorrhage. No evidence of intraparenchymal brain mass l esion. No evidence of acute infarction. Several small old right frontal lobe infarctions. There is mild microangiopathy and moderate cerebral atrophy. Old infarction involving the corpus callosum. The re is no mass effect or midline shift. There is no obstructive hydrocephalus suspected. There are no extra-axial collections. There are no acute calvarial fractures. Patient has had bilateral ocular lens surgery. Soft tissue is unremarkable. The visualized sinuses and mastoid air cells are well ae rated. CERVICAL CT: There is no evidence of acute cervical fracture. The odontoid process is intact. Pre- dens space is normal. Prevertebral soft tissue is normal. There are no soft tissue abnormalities id entified. There is no disc space widening or traumatic vertebral body subluxation suspected. Mild c ervical levocurvature, could be positional. There is moderate cervical spondylosis. A detailed level by level evaluation of spondylosis can be added as addendum if requested. IMPRESSION: 1. No acute intracranial findings or cervical fracture. 2. Old corpus callosal, right frontal lobe infarctions. 3. Microangiopathy and atrophy. 4. Cervical spondylosis. Reviewed, dictated and finalized at location B. ANCE EQUIPMENT WORKER IMPRESSION: 1. No acute intracranial findings or cervical fracture. 2. Old corpus callosal, right frontal lobe infarctions. 3. Microangiopathy and atrophy. 4. Cervical spondylosis.
--- NOTE | ~2021-10-11 | XR_ITS ---
EXAMINATION: XR hip LT min 3V w AP pelvis EXAM DATE: 10/11/2021 11:48 INDICATION: Fall, left hip pain. TECHNIQUE: Left hip frontal, crosstable lateral projections for interpretation. Frontal projection pe lvis. Comparison is made to prior examination from 07/30/2017. FINDINGS: Appearance to the left hip greater tuberosity likely unchanged correlating to a CT scan march. 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 Moderate left hip primary osteoarthritis. No hip or pelvic fractures. Imaged portion of right hip replacement hardware intact as well. IMPRESSION: 1. Left hip degenerative changes. Reviewed, dictated and finalized at location B. COVERER
--- NOTE | ~2021-10-11 | XR_ITS ---
EXAMINATION: XR knee LT 3V DATE: 10/11/2021 11:48 INDICATION: Left knee pain. Fall. TECHNIQUE: 3 views of left knee were obtained. COMPARISON: Left knee radiographs 01/17/2021 FINDINGS: There are changes of below knee amputation. No fracture. There is diffuse osteopenia. There is mild osteoarthritis of patellofemoral compartment characterized by tiny marginal osteophytes. No knee joint effusion. IMPRESSION: 1. No fracture. Reviewed, dictated and finalized at location A. ATE MORTGAGE BANKER SAFE IMPRESSION: 1. No fracture.
[2021-10-11 10:40] VITALS: BP 123/68; PULSE 50; RESP 16; TEMP 36.3; O2SAT 96
[2021-10-11 11:30] VITALS: BP 119/62; PULSE 60; RESP 16; TEMP 36.4; O2SAT 98
--- NOTE | 2021-10-11 12:46 | ED.GENADULT ---
HPI - General Adult General Chief complaint: Fall Stated complaint: fall Time Seen by Provider: 10/11/21 11:22 History of Present Illness HPI narrative: Patient is a 75-year-old gentleman who presents emerged from with chief complaint of head injury and stump injury. The patient reports that he was in a wheelchair fell backwards struck his head on the floor and scraped his below-knee amputation stump against something. Patient states he feels as though he has an abrasion on his stop and reports that he has had sore. Patient states he has chronic neck pain states his neck feels a little bit more sore than normal and reports that he has chronic left hip pain and states that also was a little bit more sore this evening. Patient reports the pain is worse with movement and improved with rest Related Data Home Medications Medication Instructions Recorded Confirmed acetaminophen 1,000 mg PO Q6-8H PRN 12/02/20 07/19/21 aspirin 325 mg PO DAILY 12/02/20 07/19/21 folic acid 1 mg PO DAILY 12/02/20 07/19/21 ammonium lactate 1 applic TOPICAL DAILY 06/09/21 07/19/21 Allergies Allergy/AdvReac Type Severity Reaction Status Date / Time niacin Allergy Intermediate Rash/itchin Verified 07/19/21 10:17 g hydrocodone [From [facility]] AdvReac Confusion Verified 07/19/21 10:17 Review of Systems Review of Systems: A 10 system review of systems was completed on the patient and is negative except for what is stated in the HPI. Nursing and ancillary documentation was reviewed. [facility] Past Medical History Medical History Alcohol abuse History of alcohol abuse though he has cut back significantly in the last 6 months or so. Now drinking a couple of beers a day. Anxiety Asthma Benign prostatic hyperplasia Cerebrovascular accident Chronic abscess of lower leg Chronic anemia Chronic obstructive pulmonary disease Chronic respiratory failure with hypoxia, on home O2 therapy Depression Diabetic foot ulcer Diabetic peripheral neuropathy Diastolic congestive heart failure Former smoker Gastroesophageal reflux disease Hearing loss Hypertension Ichthyosis vulgaris Irritable bowel syndrome Mixed hyperlipidemia MRSA (methicillin resistant Staphylococcus aureus) septicemia (09/2020) Osteoarthritis Osteomyelitis History of osteomyelitis of both feet requiring multiple amputations. Pancreatitis (03/2021) Persistent atrial fibrillation Not on long-term anticoagulation. Takes aspirin 325 mg daily. Pulmonary hypertension Echocardiogram on 06/08/2021 showed normal left ventricular systolic function with an EF estimated 65 to 70%, mildly increased LV wall thickness, severely enlarged right atrial chamber, mildly enlarged left atrial chamber, mild mitral valve and trace tricuspid valve regurgitation, and mild pulmonary hypertension with an estimated pulmonary arterial systolic pressure of 35 mmHg. Sacrum and coccyx fracture Type 2 diabetes mellitus Hemoglobin A1c was 6.6% on 06/09/2021. Surgical History Surgical History History of bilateral cataract extraction History of incision and drainage Right hip abscess. History of left below knee amputation (~11/17/20) Performed by Dr. 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 He gets Meals on Wheels. Has continued to refuse assisted living and the like. He is
--- NOTE | 2021-10-11 14:30 | PC.NURSE ---
Pt states one of his daughters will pick him up when they are available, pt states he does not want to pay for an ambulance, skate boarder Carol aware, pt states he will sit in lobby and wait
[2021-10-11 14:37] VITALS: BP 120/62; PULSE 63; RESP 16; O2SAT 100
== END 2021-10-11 14:37 | disposition home or self-care (01) ==
PROVIDERS: Emergency Provider Emergency Medicine; PCP Emergency Medicine
DX: S09.90XA Unspecified injury of head, initial encounter (principal); S80.812A Abrasion, left lower leg, initial encounter; F41.9 Anxiety disorder, unspecified; J44.9 Chronic obstructive pulmonary disease, unspecified; F32.A Depression, unspecified; E11.42 Type 2 diabetes mellitus with diabetic polyneuropathy; I50.9 Heart failure, unspecified; I11.0 Hypertensive heart disease with heart failure; E78.2 Mixed hyperlipidemia; W05.0XXA Fall from non-moving wheelchair, initial encounter; M19.90 Unspecified osteoarthritis, unspecified site; I48.19 Other persistent atrial fibrillation; Z86.73 Personal history of transient ischemic attack (TIA), and cerebral infarction without residual deficits; Z86.2 Personal history of diseases of the blood and blood-forming organs and certain disorders involving the immune mechanism; Z87.891 Personal history of nicotine dependence; Z79.899 Other long term (current) drug therapy; Z79.82 Long term (current) use of aspirin
CPT/HCPCS: 70450; 72125; 73502; 73562; 99284

== ENCOUNTER 2021-11-05 22:58 | Observation (INO) | payer OTHER, MEDICAID, SELFPAY ==
--- NOTE | ~2021-11-05 | XR_ITS ---
EXAMINATION: XR hand LT min 3V DATE: 11/06/2021 02:57 INDICATION: Left wrist pain and deformity post fall TECHNIQUE: 1. Posteroanterior and lateral views of the left wrist were obtained. 2. Dorsal palmar, oblique and lateral views of the left hand were obtained. COMPARISON: None. FINDINGS: Transverse fracture of the distal left radial metaphysis with 5 mm radial displacement. There is also mild impaction resulting in 3 mm ulnar positive variance. No definitive extension to involve the art icular cortices. Polyarticular osteoarthritis mild to moderate severity at the left third distal inte rphalangeal joint and mild at the distal radioulnar and many of the remaining interphalangeal joints with distal predominance. Prominent dorsal osteophyte at the base of the third distal phalanx which c ould represent an old healed avulsion fracture deformity. IMPRESSION: 1. Mild radial displacement and mild impaction of an extra-articular fracture of the distal left radi al metaphysis. Reviewed, dictated and finalized at location A. MENT CONTROL CLERK IMPRESSION: 1. Mild radial displacement and mild impaction of an extra-articular fracture o f the distal left radial metaphysis.
--- NOTE | ~2021-11-05 | CT_ITS ---
EXAMINATION: CT brain wo con, CT cervical spine wo con EXAM DATE: 11/06/2021 09:52 INDICATION: fall , head injury. Neck pain. TECHNIQUE: Spiral CT of the head was performed without contrast. Axial, coronal and sagittal images were reviewed. Spiral CT of the cervical spine was performed without contrast. Axial images were rev iewed. Coronal and sagittal reformatted images were also reviewed. The dose-length product (DLP) fo r this examination was 605.33 (accession [id number]), 449.67 (accession [id number]) mGy-cm. The exposure was tailored according to patient size, and iterative reconstruction (ASIR) was used as additional dose reduction technique. Comparison is made to prior examination from 10/11/2021. FINDINGS: HEAD CT: There is old right frontal periventricular/corpus callosal infarction. There is no acute int raparenchymal hemorrhage. No evidence of intraparenchymal brain mass lesion. No evidence of acute i nfarction. There is mild to moderate periventricular and subcortical hypodensity, nonspecific but pro bably related to small vessel ischemic disease. There is moderate prominence of the sulci and ventr icles related to cerebral atrophy. There is no mass effect or midline shift. There is no obstructi ve hydrocephalus suspected. There are no extra-axial collections. There are no acute calvarial frac tures. Patient has had bilateral ocular lens surgery. Soft tissue is unremarkable. Mild sinus muco periosteal thickening. The mastoid air cells are well aerated. CERVICAL CT: There is no evidence of acute cervical fracture. The odontoid process is intact. Pre-d ens space is normal. Prevertebral soft tissue is normal. There are no soft tissue abnormalities mita ntified. There is no disc space widening or traumatic vertebral body subluxation suspected. Advance d mid cervical facet arthropathy. Moderate lower cervical disc disease. A detailed level by level ev aluation of spondylosis can be added as addendum if requested. IMPRESSION: 1. No acute intracranial findings or cervical fracture. 2. Old right periventricular/corpus callosal infarction. 3. Cervical spondylosis. Reviewed, dictated and finalized at location A. CRIPTION CLERK IMPRESSION: 1. No acute intracranial findings or cervical fracture. 2. Old right periventricular/corpus callosal infarction. 3. Cervical spondylosis.
--- NOTE | ~2021-11-05 | XR_ITS ---
EXAMINATION: XR chest 1V portable DATE: 11/06/2021 03:51 INDICATION: Atrial fibrillation, hypertension and congestive heart failure. TECHNIQUE: frontal view of the chest was obtained. COMPARISON: Chest radiograph dated 07/19/2021 FINDINGS: Skinfold projects over the lateral left mid and lower lung zones. No pleural effusion or pneumothorax . Unchanged nodular airspace opacity at the medial right lung base with appearance correspond to grou nd atelectasis on prior CT dated 04/18/2021. New focal airspace opacity in the left midlung zone. More subtle opacity with a well-defined linear margin at the right mid to upper lung zone suggesting this could represent either lung disease in the superior segment of the right lower lobe or a skinfold. N o pleural effusion or pneumothorax. Cardiomediastinal silhouette is within normal limits for AP techn ique. Mild S-shaped scoliosis of the thoracic spine. IMPRESSION: 1. New airspace opacity in the left midlung zone which could be pneumonia, atelectasis or malignancy. Recommend radiographic follow-up to resolution. Reviewed, dictated and finalized at location A. EXPERT IMPRESSION: 1. New airspace opacity in the left midlung zone which could be pneumonia, atel ectasis or malignancy. Recommend radiographic follow-up to resolution.
--- NOTE | ~2021-11-05 | XR_ITS ---
EXAMINATION: XR wrist LT 2V DATE: 11/06/2021 02:57 INDICATION: Left wrist pain and deformity post fall TECHNIQUE: 1. Posteroanterior and lateral views of the left wrist were obtained. 2. Dorsal palmar, oblique and lateral views of the left hand were obtained. COMPARISON: None. FINDINGS: Transverse fracture of the distal left radial metaphysis with 5 mm radial displacement. There is also mild impaction resulting in 3 mm ulnar positive variance. No definitive extension to involve the art icular cortices. Polyarticular osteoarthritis mild to moderate severity at the left third distal inte rphalangeal joint and mild at the distal radioulnar and many of the remaining interphalangeal joints with distal predominance. Prominent dorsal osteophyte at the base of the third distal phalanx which c ould represent an old healed avulsion fracture deformity. IMPRESSION: 1. Mild radial displacement and mild impaction of an extra-articular fracture of the distal left radi al metaphysis. Reviewed, dictated and finalized at location A. MICS AX DEVELOPER IMPRESSION: 1. Mild radial displacement and mild impaction of an extra-articular fracture o f the distal left radial metaphysis.
[2021-11-05 23:13] VITALS: BP 125/86; PULSE 62; RESP 18; TEMP 36.1; O2SAT 97
[2021-11-06] VITALS (11 sets, daily range): BP systolic 138–170; BP diastolic 73–93; PULSE 69–80; RESP 16–22; TEMP 35.7–37; O2SAT 92–100; BMI 25.7
[2021-11-06 03:45] LABS: Basophils Percent Auto 0.2 % (0.2-1.2); Eosinophils Absolute Auto 0.1 K/mm3 (0-0.3); Eosinophils Percent Auto 1.4 % (0-4.4); Hematocrit 35.6 % (42.0-52.0); Hemoglobin 11.3 g/dL (14.0-18.0); Immature Granulocyte Percent A 1.1 % (0-0.5); Lymphocytes Absolute Auto 0.64 K/mm3 (0.9-3.2); Lymphocytes Percent Auto 7.3 % (18.3-44.2); Mean Corpuscular HGB Conc 31.7 g/dl (32-36); Mean Corpuscular Hemoglobin 26.5 pg (26-34); Mean Corpuscular Volume 83.6 fl (80-100); Mean Platelet Volume 8.6 fl (7.4-10.4); Monocytes Absolute Auto 0.7 K/mm3 (0.1-0.6); Monocytes Percent Auto 8.2 % (2.6-8.5); Neutrophils Absolute Auto 7.2 K/mm3 (1.3-6.7); Neutrophils Percent Auto 81.8 % (45.5-73.1); Platelet Count Result 142 k/mm3 (150-375); Red Blood Count 4.26 M/mm3 (4.6-6.20); White Blood Count 8.8 K/mm3 (4.5-10.0)
--- NOTE | 2021-11-06 03:48 | ED.GENADULT ---
HPI - General Adult General Chief complaint: Extremity Injury, Upper Stated complaint: lt arm pain after fall Time Seen by Provider: 11/06/21 02:30 History of Present Illness HPI narrative: Patient is a 75-year-old gentleman who presents the emergency department with chief complaint of fall from wheelchair patient reports this evening he fell out of his wheelchair landing on an outstretched left hand. Patient reports he has pain in his left wrist patient states is worse with movement and improved with rest. Patient reports he has swelling in the wrist area patient states that he is a below-knee amputation on the left side reports wheelchair for all evaluation wheelchair. States Independently by himself and has no assistance at home. Related Data Home Medications Medication Instructions Recorded Confirmed acetaminophen 1,000 mg PO Q6-8H PRN 12/02/20 07/19/21 aspirin 325 mg PO DAILY 12/02/20 07/19/21 folic acid 1 mg PO DAILY 12/02/20 07/19/21 ammonium lactate 1 applic TOPICAL DAILY 06/09/21 07/19/21 Allergies Allergy/AdvReac Type Severity Reaction Status Date / Time niacin Allergy Intermediate Rash/itchin Verified 11/06/21 02:40 g hydrocodone [From [place]] AdvReac Confusion Verified 11/06/21 02:40 Review of Systems Review of Systems: A 10 system review of systems was completed on the patient and is negative except for what is stated in the HPI. Nursing and ancillary documentation was reviewed. [facility] Past Medical History Medical History Alcohol abuse History of alcohol abuse though he has cut back significantly in the last 6 months or so. Now drinking a couple of beers a day. Anxiety Asthma Benign prostatic hyperplasia Cerebrovascular accident Chronic abscess of lower leg Chronic anemia Chronic obstructive pulmonary disease Chronic respiratory failure with hypoxia, on home O2 therapy Depression Diabetic foot ulcer Diabetic peripheral neuropathy Diastolic congestive heart failure Former smoker Gastroesophageal reflux disease Hearing loss Hypertension Ichthyosis vulgaris Irritable bowel syndrome Mixed hyperlipidemia MRSA (methicillin resistant Staphylococcus aureus) septicemia (09/2020) Osteoarthritis Osteomyelitis History of osteomyelitis of both feet requiring multiple amputations. Pancreatitis (03/2021) Persistent atrial fibrillation Not on long-term anticoagulation. Takes aspirin 325 mg daily. Pulmonary hypertension Echocardiogram on 06/08/2021 showed normal left ventricular systolic function with an EF estimated 65 to 70%, mildly increased LV wall thickness, severely enlarged right atrial chamber, mildly enlarged left atrial chamber, mild mitral valve and trace tricuspid valve regurgitation, and mild pulmonary hypertension with an estimated pulmonary arterial systolic pressure of 35 mmHg. Sacrum and coccyx fracture Type 2 diabetes mellitus Hemoglobin A1c was 6.6% on 06/09/2021. Surgical History Surgical History History of bilateral cataract extraction History of incision and drainage Right hip abscess. History of left below knee amputation (~11/17/20) Performed by Dr. 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 He gets Meals on Wheels. Has continued to refuse assisted living and the like. He is and has 7 children, 3 that live close by.
[2021-11-06 03:56] LABS: INR 0.9; Prothrombin Time 12.4 Seconds (11.1-14.7)
[2021-11-06 03:57] LABS: Alanine Aminotransferase 15 U/L (4-50); Albumin Level 3.9 g/dL (3.5-5.1); Alkaline Phosphatase 182 U/L (38-126); Anion Gap 9 mmol/L (8-16); Aspartate Amino Transferase 46 U/L (17-59); Bilirubin,Total 0.4 mg/dL (0.2-1.3); Blood Urea Nitrogen 17 mg/dL (9-20); Calcium 8.3 mg/dL (8.4-10.2); Carbon Dioxide 26 mmol/L (22-30); Chloride 92 mmol/L (98-107); Estimated CRCL calculation 49 ml/min; Estimated Glomerular Filt Rate 54; Glucose 107 mg/dL (65-110); Partial Thromboplastin Time 33.9 SECONDS (22.3-36.8); Potassium 4.4 mmol/L (3.4-5.0); Sodium 127 mmol/L (137-145)
[2021-11-06] MEDS: MORPHINE SULFATE (*CRX) 4 MG/ML INJ IV PUSH (03:58)
--- NOTE | 2021-11-06 05:54 | ADMGEN ---
This patient, Ludin Mcguire, was admitted to Medical Room 243-01. Patient/family oriented to hospital policies and general routines including ID bracelet, bed and alarms, visiting hours, pain management, procedures, bathroom and other care routines, personal items, smoking policy, room service/diet, and visiting hours. Information on how to activate the Rapid Response Team has been discussed. Patient/Family are encouraged to report perceived risks to care and to ask questions if they do not understand what they are told or what they should do.
[2021-11-06] MEDS: SODIUM CHLORIDE 0.9% IV 1,000 ML 100 ML IV CONT (06:43)
--- NOTE | 2021-11-06 07:30 | PM.IMHP ---
H&P: HPI History of Present Illness Date/Time: 11/06/21 07:30 Chief Complaint: Fall Narrative: Patient is a 75 year old male with a past medical history of hypertension, HLD, diabetes, chf who presented after a fall. Patient stated that he was trying to pick something up from the floor. He then fell out of his wheel chair hands first. He does admit to hitting his head and pointed to the left forehead area. There is some purple areas. He is currently complaining of pain in his left stump and neck area. He also has pain in his left wrist, but denies pain in his shoulder. He is hungry and would like to eat. He denies chest pain, abdominal pain, dizziness, lightheadedness, weakness, fatigue, urinary dysfunction. He does have some appetite changes and stated that it is fair, and eats when he gets hungry. He is always on 3LNC at home. He stated that he is short of breath, however, he stated that he is always short of breath. He has numbness and tingling in his fingers and toes, which he stated that his MD stated that he has peripheral neuropathy, and currently is on gabapentin. He also stated that he is having some nausea, vomiting which he stated is mostly in the morning. He is also experiencing a cough, which he also stated that he feels his sputum has increased along with his wheezes. He also stated that his sputum is white. Dr. Muñiz has been consulted for distal radial fracture. Chest xray shows possible PNA, which patient appears to be short of breath. Head and neck CT is ordered. Patient is being admitted to the hospitalist service under observation. Review of Systems Review of Systems: All systems reviewed & are unremarkable except as noted in HPI and below [facility] Past Medical History Medical History Alcohol abuse History of alcohol abuse though he has cut back significantly in the last 6 months or so. Now drinking a couple of beers a day. Anxiety Asthma Benign prostatic hyperplasia Cerebrovascular accident Chronic abscess of lower leg Chronic anemia Chronic obstructive pulmonary disease Chronic respiratory failure with hypoxia, on home O2 therapy Depression Diabetic foot ulcer Diabetic peripheral neuropathy Diastolic congestive heart failure Former smoker Gastroesophageal reflux disease Hearing loss Hypertension Ichthyosis vulgaris Irritable bowel syndrome Mixed hyperlipidemia MRSA (methicillin resistant Staphylococcus aureus) septicemia (09/2020) Osteoarthritis Osteomyelitis History of osteomyelitis of both feet requiring multiple amputations. Pancreatitis (03/2021) Persistent atrial fibrillation Not on long-term anticoagulation. Takes aspirin 325 mg daily. Pulmonary hypertension Echocardiogram on 06/08/2021 showed normal left ventricular systolic function with an EF estimated 65 to 70%, mildly increased LV wall thickness, severely enlarged right atrial chamber, mildly enlarged left atrial chamber, mild mitral valve and trace tricuspid valve regurgitation, and mild pulmonary hypertension with an estimated pulmonary arterial systolic pressure of 35 mmHg. Sacrum and coccyx fracture Type 2 diabetes mellitus Hemoglobin A1c was 6.6% on 06/09/2021. Surgical History Surgical History History of bilateral cataract extraction History of incision and drainage Right hip abscess. History of left below knee amputation (~11/17/20) Performed by Dr. Heaton History of tonsillectomy History of total right hip arthroplasty (~2002) History of transmetatarsal amputation of left foot (~2019) History of transmetatarsal amputation of right foot (~2016) History of ventral hernia repair (~2006) Family History Family History Mother Patient's mother is , Onset Age: 31 Father Suicide Social History Social History (Updated
[2021-11-06] MEDS: MORPHINE SULFATE (*CRX) 2 MG/ML INJ IV PUSH ×2 (08:01→10:17)
[2021-11-06 08:03] LABS: Glucose Point of Care 76 mg/dl (65-105)
[2021-11-06] MEDS: ALBUTEROL SULFATE NEB 2.5 MG/0.5 ML INH 5 MG INHALATION (08:16)
[2021-11-06] MEDS: IPRATROPIUM BR 0.02% INH SOLN 0.5 MG/2.5 ML VIAL INHALATION (08:16)
--- NOTE | 2021-11-06 09:50 | PCOTNOTE ---
Awaiting ortho consult to complete Occupational Therapy evaluation. Will follow.
[2021-11-06 11:31] LABS: Add Urine Microscopic? YES; Appearance Urine Clear (Clear); Bilirubin Urine Negative (Negative); Blood Urine 1+ (Negative); Color Urine Colorless (Yellow); Glucose Urine UA Negative (Negative); Ketones Urine Trace mg/dL (Negative); Leukocyte Esterase Ur Negative LEU/UL (Negative); Mucus Urine Rare /lpf; Nitrate Urine Negative (Negative); Protein Urine 2+ mg/dL (Negative); RBC Urine 0-2 /hpf (0-2); Urobilinogen Urine Negative mg/dL (<2.0); WBC Urine 0-3 /hpf
[2021-11-06 11:39] LABS: Specific Grav Ur 1.004 (1.001-1.035)
[2021-11-06] MEDS: GABAPENTIN 100 MG CAPSULE 200 MG PO ×2 (12:00→17:40)
[2021-11-06] MEDS: ASPIRIN 325 MG ENTERIC TABLET PO (12:00)
[2021-11-06] MEDS: amLODIPine BESYLATE 5 MG TABLET 10 MG PO (12:00)
[2021-11-06] MEDS: FOLIC ACID 1 MG TABLET PO (12:01)
[2021-11-06] MEDS: MAGNESIUM OXIDE 400 MG TABLET PO (12:01)
[2021-11-06] MEDS: FUROSEMIDE 40 MG TABLET PO (12:01)
[2021-11-06] MEDS: PANTOPRAZOLE 40 MG TABLET PO ×2 (12:01→20:02)
[2021-11-06] MEDS: MULTIVITAMINS THERAPEUTIC TAB (*BKC) 1 TABLET PO (12:01)
[2021-11-06] MEDS: predniSONE 2.5 MG TABLET PO (12:02)
[2021-11-06] MEDS: METOPROLOL TARTRATE 25 MG TABLET PO ×2 (12:02→20:02)
[2021-11-06 12:13] LABS: Glucose Point of Care 75 mg/dl (65-105)
[2021-11-06] MEDS: traMADol HCL (*CRX) 50 MG TABLET PO ×2 (12:25→20:02)
[2021-11-06 17:14] LABS: Glucose Point of Care 213 mg/dl (65-105)
[2021-11-06] MEDS: SERTRALINE HCL 50 MG TABLET PO (17:40)
[2021-11-06] MEDS: LACTIC ACID 12% LOTION 225 BTL 1 APPLIC TOPICAL (17:40)
[2021-11-06] MEDS: INSULIN ASPART (*BKC) 100 UNITS/ML SUB-Q (17:40)
[2021-11-06] MEDS: SIMVASTATIN 10 MG TABLET PO (20:02)
[2021-11-06] MEDS: traZODone HCL 50 MG TABLET PO (20:02)
[2021-11-06 20:56] LABS: Glucose Point of Care 100 mg/dl (65-105)
[2021-11-07 03:38] VITALS: BP 146/60; PULSE 58; RESP 20; TEMP 36.1; O2SAT 98
[2021-11-07 06:59] LABS: Basophils Percent Auto 0.3 % (0.2-1.2); Eosinophils Absolute Auto 0.1 K/mm3 (0-0.3); Eosinophils Percent Auto 2.3 % (0-4.4); Hematocrit 34.9 % (42.0-52.0); Hemoglobin 11.1 g/dL (14.0-18.0); Immature Granulocyte Absolute 0.05 K/mm3 (0.00-0.031); Immature Granulocyte Percent A 0.9 % (0-0.5); Lymphocytes Percent Auto 8.7 % (18.3-44.2); Mean Corpuscular HGB Conc 31.8 g/dl (32-36); Mean Corpuscular Hemoglobin 26.7 pg (26-34); Mean Corpuscular Volume 83.9 fl (80-100); Mean Platelet Volume 8.7 fl (7.4-10.4); Monocytes Absolute Auto 0.9 K/mm3 (0.1-0.6); Monocytes Percent Auto 15.7 % (2.6-8.5); Neutrophils Absolute Auto 4.1 K/mm3 (1.3-6.7); Neutrophils Percent Auto 72.1 % (45.5-73.1); Platelet Count Result 134 k/mm3 (150-375); Red Blood Count 4.16 M/mm3 (4.6-6.20); Red Cell Distribution Width 16.2 % (11.5-14.5); White Blood Count 5.7 K/mm3 (4.5-10.0)
[2021-11-07 07:21] LABS: Alanine Aminotransferase 14 U/L (4-50); Albumin Level 3.4 g/dL (3.5-5.1); Alkaline Phosphatase 153 U/L (38-126); Anion Gap 6 mmol/L (8-16); Aspartate Amino Transferase 39 U/L (17-59); Bilirubin,Total 0.5 mg/dL (0.2-1.3); Blood Urea Nitrogen 10 mg/dL (9-20); Calcium 8.1 mg/dL (8.4-10.2); Carbon Dioxide 33 mmol/L (22-30); Chloride 93 mmol/L (98-107); Estimated CRCL calculation 77 ml/min; Estimated Glomerular Filt Rate > 60; Glucose 93 mg/dL (65-110); Potassium 3.3 mmol/L (3.4-5.0); Sodium 132 mmol/L (137-145)
--- NOTE | 2021-11-07 07:30 | P.PNIM_ITS ---
Progress Note: A&P Assessment and Plan (1) Distal radius fracture, left: Qualifiers: Encounter type: initial encounter Fracture morphology: unspecified fracture morphology Fracture type: closed Qualified Code(s): S52.502A - Unspecified fracture of the lower end of left radius, initial encounter for closed fracture Code(s): S52.502A - Unspecified fracture of the lower end of left radius, initial encounter for closed fracture Status: Acute Assessment and Plan: * Xray shows: Mild radial displacement and mild impaction of an extra-articular fracture of the distal left radial metaphysis. 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 (3) Chronic respiratory failure with hypoxia, on home O2 therapy: Code(s): J96.11 - Chronic respiratory failure with hypoxia; Z99.81 - Dependence on suppl emental oxygen Status: Acute Assessment and Plan: * On 3LNC at home * Currently on 3L * Wean O2 to maintain saturation >90% * Acute mild respiratory distress * Chest xray shows possible PNA * Trend SPO2 (4) Type 2 diabetes mellitus: Code(s): E11.9 - Type 2 diabetes mellitus without complications Status: Chronic Assessment and Plan: * Glucose 93 on labs * Looks to be diet controlled * Check A1c in the am * Consider adding therapy * Trend labs (5) Hyponatremia: Code(s): E87.1 - Hypo-osmolality and hyponatremia Status: Acute Assessment and Plan: * Currently 132, normalizing * Could be related to hypervolemia * Echo from May EF of 65-70%, indeterminate diastolic dysfunction * Continue home lasix 40mg PO daily * Add one time dose of lasix 40mg IV * Trend urine output * Trend labs * Consider NS infusion if continues to drop (6) HTN (hypertension): Qualifiers: Hypertension type: essential hypertension Qualified Code(s): I10 - Essential (primary) hypertension Code(s): I10 - Essential (primary) hypertension Status: Chronic Assessment and Plan: * Current BP 146/60 * Continue home amlodipine 10mg PO daily, metoprolol 25mg PO BID * Trend BP * Adjust therapy as indicated (7) Neuropathy: Code(s): G62.9 - Polyneuropathy, unspecified Status: Chronic Assessment and Plan: * Numbness and tingling in fingers and legs * Continue home gabapentin, increase to 200mg PO TID (8) ARF (acute renal failure): Code(s): N17.9 - Acute kidney failure, unspecified Status: Acute Assessment and Plan: * BUN/Cr elevated to 10/0.80 * Baseline * Could be related to dehydration * Could also be prerenal or diastolic heart failure * Trend labs * Avoid nephrotoxic medications * UA did not appear infectious (9) Pneumonia: Code(s): J18.9 - Pneumonia, unspecified organism Status: Acute Assessment and Plan: *
--- NOTE | 2021-11-07 07:30 | PM.IMPN ---
Progress Note: A&P Assessment and Plan (1) Distal radius fracture, left: Qualifiers: Encounter type: initial encounter Fracture morphology: unspecified fracture morphology Fracture type: closed Qualified Code(s): S52.502A - Unspecified fracture of the lower end of left radius, initial encounter for closed fracture Code(s): S52.502A - Unspecified fracture of the lower end of left radius, initial encounter for closed fracture Status: Acute Assessment and Plan: Xray shows: Mild radial displacement and mild impaction of an extra-articular fracture of the distal left radial metaphysis. 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 (3) Chronic respiratory failure with hypoxia, on home O2 therapy: Code(s): J96.11 - Chronic respiratory failure with hypoxia; Z99.81 - Dependence on supplemental oxygen Status: Acute Assessment and Plan: On 3LNC at home Currently on 3L Wean O2 to maintain saturation >90% Acute mild respiratory distress Chest xray shows possible PNA Trend SPO2 (4) Type 2 diabetes mellitus: Code(s): E11.9 - Type 2 diabetes mellitus without complications Status: Chronic Assessment and Plan: Glucose 93 on labs Looks to be diet controlled Check A1c in the am Consider adding therapy Trend labs (5) Hyponatremia: Code(s): E87.1 - Hypo-osmolality and hyponatremia Status: Acute Assessment and Plan: Currently 132, normalizing Could be related to hypervolemia Echo from May EF of 65-70%, indeterminate diastolic dysfunction Continue home lasix 40mg PO daily Add one time dose of lasix 40mg IV Trend urine output Trend labs Consider NS infusion if continues to drop (6) HTN (hypertension): Qualifiers: Hypertension type: essential hypertension Qualified Code(s): I10 - Essential (primary) hypertension Code(s): I10 - Essential (primary) hypertension Status: Chronic Assessment and Plan: Current BP 146/60 Continue home amlodipine 10mg PO daily, metoprolol 25mg PO BID Trend BP Adjust therapy as indicated (7) Neuropathy: Code(s): G62.9 - Polyneuropathy, unspecified Status: Chronic Assessment and Plan: Numbness and tingling in fingers and legs Continue home gabapentin, increase to 200mg PO TID (8) ARF (acute renal failure): Code(s): N17.9 - Acute kidney failure, unspecified Status: Acute Assessment and Plan: BUN/Cr elevated to 10/0.80 Baseline Could be related to dehydration Could also be prerenal or diastolic heart failure Trend labs Avoid nephrotoxic medications UA did not appear infectious (9) Pneumonia: Code(s): J18.9 - Pneumonia, unspecified organism Status: Acute Assessment and Plan: Chest xray new airspace opacity in the left midlung zone which could be PNA, atelectasis or malignancy Azithromycin and ceftriaxone day 2 Blood cultures NGTD Sputum culture pending Repeat chest xray in the am Trend symptoms (10) Congestive heart failure: Code(s): I50.9 - Heart failure, unspecified Status: Acute Assessment and Plan: Could be an acute exacerbation Does seem to have some resp distress Echo from May EF of 65-70%, indeterminate diastolic dysfunction Continue home lasix 40mg PO daily Add one time dose of lasix 40mg IV Trend urine o
[2021-11-07 07:44] LABS: Glucose Point of Care 100 mg/dl (65-105)
[2021-11-07] MEDS: ASPIRIN 325 MG ENTERIC TABLET PO (08:05)
[2021-11-07] MEDS: FOLIC ACID 1 MG TABLET PO (08:05)
[2021-11-07] MEDS: GABAPENTIN 100 MG CAPSULE 200 MG PO ×3 (08:05→17:17)
[2021-11-07] MEDS: MAGNESIUM OXIDE 400 MG TABLET PO (08:05)
[2021-11-07] MEDS: FUROSEMIDE 40 MG TABLET PO (08:05)
[2021-11-07] MEDS: amLODIPine BESYLATE 5 MG TABLET 10 MG PO (08:05)
[2021-11-07] MEDS: METOPROLOL TARTRATE 25 MG TABLET PO ×2 (08:05→20:36)
[2021-11-07] MEDS: MULTIVITAMINS THERAPEUTIC TAB (*BKC) 1 TABLET PO (08:06)
[2021-11-07] MEDS: predniSONE 2.5 MG TABLET PO (08:06)
[2021-11-07] MEDS: PANTOPRAZOLE 40 MG TABLET PO ×2 (08:07→20:35)
[2021-11-07] MEDS: LACTIC ACID 12% LOTION 225 BTL 1 APPLIC TOPICAL (08:07)
[2021-11-07] MEDS: traMADol HCL (*CRX) 50 MG TABLET PO ×2 (08:12→17:16)
[2021-11-07] MEDS: UMECLIDINIUM BROMIDE 62.5 MCG ELLIPTA 1 PUFF INHALATION (08:58)
[2021-11-07 10:17] LABS: NT Pro B Type Natriuretic Pept 3710 pg/mL (5-100)
[2021-11-07 11:42] LABS: Glucose Point of Care 151 mg/dl (65-105)
[2021-11-07] MEDS: FUROSEMIDE INJ 40 MG/4 ML VIAL IV PUSH (12:00)
[2021-11-07 14:21] VITALS: BP 124/61; PULSE 52; RESP 16; TEMP 36.4; O2SAT 99
[2021-11-07 16:20] LABS: Glucose Point of Care 102 mg/dl (65-105)
[2021-11-07] MEDS: SERTRALINE HCL 50 MG TABLET PO (17:18)
[2021-11-07 20:00] VITALS: O2SAT 100
[2021-11-07] MEDS: MORPHINE SULFATE (*CRX) 2 MG/ML INJ IV PUSH (20:33)
[2021-11-07 20:36] VITALS: PULSE 70
[2021-11-07] MEDS: traZODone HCL 50 MG TABLET PO (20:36)
[2021-11-07] MEDS: SIMVASTATIN 10 MG TABLET PO (20:36)
[2021-11-07 20:57] LABS: Glucose Point of Care 141 mg/dl (65-105)
[2021-11-07 21:07] VITALS: BP 114/84; PULSE 79; RESP 16; TEMP 36.4; O2SAT 100
[2021-11-08 05:44] VITALS: BP 144/72; PULSE 82; RESP 16; TEMP 36.4; O2SAT 100
[2021-11-08] MEDS: MORPHINE SULFATE (*CRX) 2 MG/ML INJ IV PUSH (05:53)
[2021-11-08 06:13] LABS: Basophils Percent Auto 0.7 % (0.2-1.2); Eosinophils Absolute Auto 0.2 K/mm3 (0-0.3); Eosinophils Percent Auto 3.2 % (0-4.4); Hematocrit 39.8 % (42.0-52.0); Hemoglobin 12.4 g/dL (14.0-18.0); Immature Granulocyte Absolute 0.06 K/mm3 (0.00-0.031); Immature Granulocyte Percent A 1.1 % (0-0.5); Lymphocytes Absolute Auto 0.85 K/mm3 (0.9-3.2); Lymphocytes Percent Auto 15.1 % (18.3-44.2); Mean Corpuscular HGB Conc 31.2 g/dl (32-36); Mean Corpuscular Hemoglobin 26.6 pg (26-34); Mean Corpuscular Volume 85.4 fl (80-100); Mean Platelet Volume 9.2 fl (7.4-10.4); Monocytes Absolute Auto 0.8 K/mm3 (0.1-0.6); Monocytes Percent Auto 14.6 % (2.6-8.5); Neutrophils Absolute Auto 3.7 K/mm3 (1.3-6.7); Neutrophils Percent Auto 65.3 % (45.5-73.1); Platelet Count Result 165 k/mm3 (150-375); Red Blood Count 4.66 M/mm3 (4.6-6.20); Red Cell Distribution Width 16.3 % (11.5-14.5); White Blood Count 5.6 K/mm3 (4.5-10.0)
[2021-11-08 06:20] LABS: Alanine Aminotransferase 15 U/L (4-50); Albumin Level 3.7 g/dL (3.5-5.1); Alkaline Phosphatase 144 U/L (38-126); Anion Gap 5 mmol/L (8-16); Aspartate Amino Transferase 42 U/L (17-59); Bilirubin,Total 0.5 mg/dL (0.2-1.3); Blood Urea Nitrogen 9 mg/dL (9-20); Calcium 8.3 mg/dL (8.4-10.2); Carbon Dioxide 36 mmol/L (22-30); Chloride 91 mmol/L (98-107); Estimated CRCL calculation 77 ml/min; Estimated Glomerular Filt Rate > 60; Glucose 106 mg/dL (65-110); Magnesium 1.7 mg/dL (1.6-2.3); Potassium 3.4 mmol/L (3.4-5.0); Sodium 132 mmol/L (137-145)
[2021-11-08 06:51] LABS: Hemoglobin A1C 5.8 % (<5.7)
[2021-11-08] MEDS: traMADol HCL (*CRX) 50 MG TABLET PO ×2 (08:06→16:28)
[2021-11-08] MEDS: MULTIVITAMINS THERAPEUTIC TAB (*BKC) 1 TABLET PO (08:07)
[2021-11-08] MEDS: MAGNESIUM OXIDE 400 MG TABLET PO (08:07)
[2021-11-08] MEDS: predniSONE 2.5 MG TABLET PO (08:07)
[2021-11-08] MEDS: amLODIPine BESYLATE 5 MG TABLET 10 MG PO (08:07)
[2021-11-08] MEDS: FOLIC ACID 1 MG TABLET PO (08:07)
[2021-11-08] MEDS: ASPIRIN 325 MG ENTERIC TABLET PO (08:07)
[2021-11-08] MEDS: FUROSEMIDE 40 MG TABLET PO (08:07)
[2021-11-08] MEDS: GABAPENTIN 100 MG CAPSULE 200 MG PO ×3 (08:07→16:28)
[2021-11-08] MEDS: METOPROLOL TARTRATE 25 MG TABLET PO (08:07)
[2021-11-08] MEDS: PANTOPRAZOLE 40 MG TABLET PO (08:07)
[2021-11-08] MEDS: LACTIC ACID 12% LOTION 225 BTL 1 APPLIC TOPICAL (08:08)
[2021-11-08 08:10] LABS: Glucose Point of Care 120 mg/dl (65-105)
--- NOTE | 2021-11-08 08:30 | P.DS_ITS ---
DS: Admitting Diagnosis Discharge Date Date of service 11/08/2021 at 8:30 a.m. Admitting Diagnosis radius fracture DS: Discharge Diagnosis Discharge Diagnosis (1) Distal radius fracture, left: Qualifiers: Encounter type: initial encounter Fracture morphology: unspecified fracture morphology Fracture type: closed Qualified Code(s): S52.502A - Unspecified fracture of the lower end of left radius, initial encounter for closed fracture Code(s): S52.502A - Unspecified fracture of the lower end of left radius, initial encounter for closed fracture Status: Acute Assessment and Plan: * Xray shows: Mild radial displacement and mild impaction of an extra-articular fracture of the distal left radial metaphysis. 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 (3) Chronic respiratory failure with hypoxia, on home O2 therapy: Code(s): J96.11 - Chronic respiratory failure with hypoxia; Z99.81 - Dependence on supplemental oxygen Status: Acute Assessment and Plan: * On 3LNC at home * Currently on 3L * Wean O2 to maintain saturation >90% * Acute mild respiratory distress * Chest xray shows possible PNA * Trend SPO2 (4) Type 2 diabetes mellitus: Code(s): E11.9 - Type 2 diabetes mellitus without complications Status: Chronic Assessment and Plan: * Glucose 93 on labs * Looks to be diet controlled * Check A1c in the am * Consider adding therapy * Trend labs (5) Hyponatremia: Code(s): E87.1 - Hypo-osmolality and hyponatremia Status: Acute Assessment and Plan: * Currently 132, normalizing * Could be related to hypervolemia * Echo from May EF of 65-70%, indeterminate diastolic dysfunction * Continue home lasix 40mg PO daily * Add one time dose of lasix 40mg IV * Trend urine output * Trend labs * Consider NS infusion if continues to drop (6) HTN (hypertension): Qualifiers: Hypertension type: essential hypertension Qualified Code(s): I10 - Essential (primary) hypertension Code(s): I10 - Essential (primary) hypertension Status: Chronic Assessment and Plan: * Current BP 146/60 * Continue home amlodipine 10mg PO daily, metoprolol 25mg PO BID * Trend BP * Adjust therapy as indicated (7) Neuropathy: Code(s): G62.9 - Polyneuropathy, unspecified Status: Chronic Assessment and Plan: * Numbness and tingling in fingers and legs * Continue home gabapentin, increase to 200mg PO TID (8) ARF (acute renal failure): Code(s): N17.9 - Acute kidney failure, unspecified Status: Acute Assessment and Plan: * BUN/Cr elevated to 10/0.80 * Baseline * Could be related to dehydration * Could also be prerenal or diastolic heart failure * Trend labs * Avoid nephrotoxic medications * UA did not appear infectious
[2021-11-08] MEDS: IPRATROPIUM BR 0.02% INH SOLN 0.5 MG/2.5 ML VIAL INHALATION ×2 (09:50→13:53)
[2021-11-08] MEDS: ALBUTEROL SULFATE NEB 2.5 MG/0.5 ML INH 5 MG INHALATION ×2 (09:50→13:52)
[2021-11-08 09:55] VITALS: PULSE 56; RESP 20; O2SAT 98
[2021-11-08] MEDS: FUROSEMIDE INJ 40 MG/4 ML VIAL 20 MG IV PUSH (09:56)
[2021-11-08 10:10] VITALS: PULSE 64; RESP 20
[2021-11-08 11:50] LABS: Glucose Point of Care 180 mg/dl (65-105)
[2021-11-08 13:53] VITALS: PULSE 68; RESP 20
[2021-11-08 14:00] VITALS: BP 136/65; PULSE 67; RESP 16; TEMP 36.4; O2SAT 100
[2021-11-08 14:01] VITALS: PULSE 64; RESP 20
[2021-11-08 15:17] LABS: EDCOVIDSCREEN Negative (Negative)
== END 2021-11-08 17:03 ==
LOC: ANHED 11-06 03:54 → ANH2MED 11-06 05:02
PROVIDERS: Nurse Practitioner; Admitting Provider Internal Medicine; Emergency Provider Emergency Medicine; PCP Emergency Medicine; Visit Provider Internal Medicine
DX: S52.552A Other extraarticular fracture of lower end of left radius, initial encounter for closed fracture (principal); W05.0XXA Fall from non-moving wheelchair, initial encounter; N17.9 Acute kidney failure, unspecified; J18.9 Pneumonia, unspecified organism; J96.11 Chronic respiratory failure with hypoxia; Z99.81 Dependence on supplemental oxygen; R11.2 Nausea with vomiting, unspecified; E87.1 Hypo-osmolality and hyponatremia; F41.8 Other specified anxiety disorders; J44.9 Chronic obstructive pulmonary disease, unspecified; N40.0 Benign prostatic hyperplasia without lower urinary tract symptoms; D64.9 Anemia, unspecified; E11.42 Type 2 diabetes mellitus with diabetic polyneuropathy; I11.0 Hypertensive heart disease with heart failure; I50.30 Unspecified diastolic (congestive) heart failure; K21.9 Gastro-esophageal reflux disease without esophagitis; I48.19 Other persistent atrial fibrillation; E78.2 Mixed hyperlipidemia; K58.9 Irritable bowel syndrome, unspecified; Z86.14 Personal history of Methicillin resistant Staphylococcus aureus infection; Z20.822 Contact with and (suspected) exposure to COVID-19; Z79.82 Long term (current) use of aspirin; Z89.512 Acquired absence of left leg below knee; Z87.891 Personal history of nicotine dependence; Z79.51 Long term (current) use of inhaled steroids; Z79.891 Long term (current) use of opiate analgesic; Z79.52 Long term (current) use of systemic steroids
CPT/HCPCS: 36415; 70450; 71045; 72125; 73100; 73130; 80053; 81001; 82948; 83036; 83735; 83880; 85025; 85610; 85730; 87040; 87070; 87205; 87426; 94640; 96361; 96365; 96366; 96367; 96375; 96376; 97110; 97162; 97166; 97530; 99285; A9270; C9803; G0378; J0456; J0696; J1815; J1940; J2270; J7030

== ENCOUNTER 2021-12-25 13:52 | Emergency (ER) | payer OTHER, MEDICAID, SELFPAY ==
--- NOTE | ~2021-12-25 | XR_ITS ---
XR chest 1V portable DATE: 12/25/2021 16:43 INDICATION: Fall today. Shortness of breath. History of COPD, asthma. Smoker. History of CHF. TECHNIQUE: Portable upright AP chest on December 25, 2021 at 1637 hours COMPARISON: 11/06/2021 AP chest FINDINGS: Normal heart size. No pulmonary infiltrate or consolidation, pleural effusion or pneumothor ax. Diffuse osteopenia. Thoracic dextroscoliosis. IMPRESSION: No active cardiopulmonary disease Reviewed, dictated and finalized at location A. OLL SUPERVISOR
--- NOTE | ~2021-12-25 | CT_ITS ---
EXAMINATION: CT brain wo con DATE: 12/25/2021 17:23 INDICATION: Head injury. TECHNIQUE: Computed tomography (CT) of the head was performed without intravenous contrast. The mA wa s adjusted according to patient size. Iterative reconstruction technique was employed. The dose-lengt h product was 605.33 mGy-cm. COMPARISON: Head CT 11/06/2021 FINDINGS: There is mild motion artifact. There is an old infarct in right frontal lobe involving the cingulate gyrus and corpus callosum. There is no intracranial hemorrhage, acute infarction, or abnorm al intracranial mass lesion. The ventricles are normal in size. There are likely changes of ocular le ns replacement surgeries. There is mild mucosal thickening in the paranasal sinuses. There is depende nt fluid in right maxillary sinus. The mastoid air cells are normal. IMPRESSION: 1. Old infarct in right frontal lobe. Reviewed, dictated and finalized at location A. ATOLOGY SPECIALIST
[2021-12-25 14:12] VITALS: BP 154/74; PULSE 56; RESP 22; TEMP 37.1; O2SAT 99
--- NOTE | 2021-12-25 15:48 | ED.FALL ---
HPI - Fall General Chief Complaint: Fall Stated Complaint: fall, back pain Time Seen by Provider: 12/25/21 15:17 History of Present Illness HPI Narrative: 76-year-old male presents to the emergency room status post fall. States he was transferring from his wheelchair to his bed when he fell. Denies any new injuries. Denies dizziness lightheadedness. States lives alone, was recently in rehab facility for 2 months because he broke his left wrist due to transferring from his wheelchair to another chair. Related Data Home Medications Medication Instructions Recorded Confirmed acetaminophen 1,000 mg PO Q6-8H PRN 12/02/20 12/08/21 aspirin 325 mg PO DAILY 12/02/20 12/08/21 folic acid 1 mg PO DAILY 12/02/20 12/08/21 ammonium lactate 1 applic TOPICAL DAILY 06/09/21 12/08/21 gabapentin 100 mg PO TID 11/06/21 12/08/21 Allergies Allergy/AdvReac Type Severity Reaction Status Date / Time niacin Allergy Intermediate Rash/itchin Verified 12/08/21 11:12 g hydrocodone [From [place]] AdvReac Confusion Verified 12/08/21 11:12 Review of Systems Review of Systems: CONSTITUTIONAL: Denies fever, chills, or sweats. EYES: Denies visual changes, redness, or discharge. ENT: Denies rhinorrhea, congestion, sore throat, or otalgia. CARDIOVASCULAR: Denies chest pain, palpitations, or edema. RESPIRATORY: Denies cough or dyspnea. GASTROINTESTINAL: Denies abdominal pain, nausea, vomiting, or diarrhea. GENITOURINARY: Denies dysuria or hematuria. SKIN: Denies rash or itching. MUSCULOSKELETAL: Reports back pain, reports shoulder pain NEUROLOGIC: Denies headache, numbness, dizziness, or weakness. PSYCHIATRIC: Denies anxiety or depression. [facility] Past Medical History Medical History Alcohol abuse History of alcohol abuse though he has cut back significantly in the last 6 months or so. Now drinking a couple of beers a day. Anxiety Asthma Benign prostatic hyperplasia Cerebrovascular accident Chronic abscess of lower leg Chronic anemia Chronic obstructive pulmonary disease Chronic respiratory failure with hypoxia, on home O2 therapy Depression Diabetic foot ulcer Diabetic peripheral neuropathy Diastolic congestive heart failure Former smoker Gastroesophageal reflux disease Hearing loss Hypertension Ichthyosis vulgaris Irritable bowel syndrome Mixed hyperlipidemia MRSA (methicillin resistant Staphylococcus aureus) septicemia (09/2020) Osteoarthritis Osteomyelitis History of osteomyelitis of both feet requiring multiple amputations. Pancreatitis (03/2021) Persistent atrial fibrillation Not on long-term anticoagulation. Takes aspirin 325 mg daily. Pulmonary hypertension Echocardiogram on 06/08/2021 showed normal left ventricular systolic function with an EF estimated 65 to 70%, mildly increased LV wall thickness, severely enlarged right atrial chamber, mildly enlarged left atrial chamber, mild mitral valve and trace tricuspid valve regurgitation, and mild pulmonary hypertension with an estimated pulmonary arterial systolic pressure of 35 mmHg. Sacrum and coccyx fracture Type 2 diabetes mellitus Hemoglobin A1c was 6.6% on 06/09/2021. Surgical History Surgical History History of bilateral cataract extraction History of incision and drainage Right hip abscess. History of left below knee amputation (~11/17/20) Performed by Dr. Heaton History of tonsillectomy History of total right hip arthroplasty (~2002) History of transmetatarsal amputation of left foot (~2019) History of transmetatarsal amputation of right foot (~2016) History of ventral hernia repair (~2006) Family History Family History Mother Patient's mother is , Onset Age: 31 Father Suicide Social History Social History Social History
[2021-12-25 16:08] LABS: Basophils Percent Auto 0.2 % (0.2-1.2); Eosinophils Absolute Auto 0.1 K/mm3 (0-0.3); Eosinophils Percent Auto 0.8 % (0-4.4); Hematocrit 40.3 % (42.0-52.0); Hemoglobin 13.1 g/dL (14.0-18.0); Immature Granulocyte Absolute 0.04 K/mm3 (0.00-0.031); Immature Granulocyte Percent A 0.3 % (0-0.5); Lymphocytes Absolute Auto 1.01 K/mm3 (0.9-3.2); Lymphocytes Percent Auto 7.8 % (18.3-44.2); Mean Corpuscular HGB Conc 32.5 g/dl (32-36); Mean Corpuscular Hemoglobin 26.6 pg (26-34); Mean Corpuscular Volume 81.7 fl (80-100); Mean Platelet Volume 9.5 fl (7.4-10.4); Monocytes Absolute Auto 0.9 K/mm3 (0.1-0.6); Monocytes Percent Auto 6.6 % (2.6-8.5); Neutrophils Absolute Auto 10.9 K/mm3 (1.3-6.7); Neutrophils Percent Auto 84.3 % (45.5-73.1); Platelet Count Result 214 k/mm3 (150-375); Red Blood Count 4.93 M/mm3 (4.6-6.20); Red Cell Distribution Width 14.6 % (11.5-14.5)
[2021-12-25 16:13] LABS: Add Urine Microscopic? YES; Appearance Urine Clear (Clear); Bilirubin Urine Negative (Negative); Blood Urine Negative (Negative); Color Urine Straw (Yellow); Glucose Urine UA Negative (Negative); Ketones Urine Negative (Negative); Leukocyte Esterase Ur Negative LEU/UL (Negative); Nitrate Urine Negative (Negative); Protein Urine 2+ mg/dL (Negative); Specific Grav Ur 1.006 (1.001-1.035); Urobilinogen Urine Negative mg/dL (<2.0); WBC Urine 0-3 /hpf
[2021-12-25 16:21] LABS: Alanine Aminotransferase 17 U/L (4-50); Albumin Level 4.3 g/dL (3.5-5.1); Alkaline Phosphatase 158 U/L (38-126); Anion Gap 8 mmol/L (8-16); Aspartate Amino Transferase 39 U/L (17-59); Blood Urea Nitrogen 20 mg/dL (9-20); Calcium 8.6 mg/dL (8.4-10.2); Carbon Dioxide 24 mmol/L (22-30); Chloride 96 mmol/L (98-107); Estimated CRCL calculation 62 ml/min; Estimated Glomerular Filt Rate > 60; Glucose 113 mg/dL (65-110); Sodium 128 mmol/L (137-145)
[2021-12-25] MEDS: SODIUM CHLORIDE 0.9% IV 1,000 ML 999 ML IV CONT (16:45)
[2021-12-25 18:00] VITALS: BP 145/66; PULSE 61; RESP 18; TEMP 36.7; O2SAT 97
== END 2021-12-25 18:01 | disposition home or self-care (01) ==
PROVIDERS: Emergency Provider Nurse Practitioner Family; PCP Emergency Medicine
DX: S39.92XA Unspecified injury of lower back, initial encounter (principal); E87.1 Hypo-osmolality and hyponatremia; J44.9 Chronic obstructive pulmonary disease, unspecified; J96.11 Chronic respiratory failure with hypoxia; Z99.81 Dependence on supplemental oxygen; E11.42 Type 2 diabetes mellitus with diabetic polyneuropathy; I11.0 Hypertensive heart disease with heart failure; I50.30 Unspecified diastolic (congestive) heart failure; I48.19 Other persistent atrial fibrillation; K21.9 Gastro-esophageal reflux disease without esophagitis; I27.20 Pulmonary hypertension, unspecified; K58.9 Irritable bowel syndrome, unspecified; M19.90 Unspecified osteoarthritis, unspecified site; D64.9 Anemia, unspecified; N40.0 Benign prostatic hyperplasia without lower urinary tract symptoms; Z98.42 Cataract extraction status, left eye; Z98.41 Cataract extraction status, right eye; Z89.512 Acquired absence of left leg below knee; Z89.431 Acquired absence of right foot; Z86.14 Personal history of Methicillin resistant Staphylococcus aureus infection; Z96.641 Presence of right artificial hip joint; Z79.82 Long term (current) use of aspirin; Z87.891 Personal history of nicotine dependence; W05.0XXA Fall from non-moving wheelchair, initial encounter
CPT/HCPCS: 36415; 70450; 71045; 80053; 81001; 85025; 96360; 99284; J7030

== ENCOUNTER 2021-12-29 11:45 | Observation (INO) | payer OTHER, MEDICAID, SELFPAY ==
[2021-12-29] VITALS (20 sets, daily range): BP systolic 116–157; BP diastolic 54–96; PULSE 50–137; RESP 20–31; TEMP 36.3–37; O2SAT 91–100
--- NOTE | ~2021-12-29 | CT_ITS ---
EXAMINATION: CT brain wo [facility] EXAM DATE: 12/29/2021 12:39 INDICATION: Confusion, altered mental status. TECHNIQUE: Spiral CT of the head was performed without contrast. Axial, coronal and sagittal images were reviewed. The dose-length product (DLP) for this examination was 681.00 mGy-cm. The exposure w as tailored according to patient size, and iterative reconstruction (ASIR) was used as additional dos e reduction technique. Comparison is made to prior examination from 12/25/2021. 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 There is no acute intraparenchymal hemorrhage. No evidence of intraparenchymal brain mass lesion. No evidence of acute infarction. Please note th at initial head CT has limited sensitivity for small or acute infarctions. There is mild to moderate periventricular and subcortical hypodensity, nonspecific but probably related to small vessel ischem ic disease. There is moderate prominence of the sulci and ventricles related to cerebral atrophy. There is intracranial carotid arteriosclerosis. There are no extra-axial collections. There is no m ass effect or midline shift. The orbits are unremarkable. Soft tissue is unremarkable. The visuali zed sinuses and mastoid air cells are well aerated. IMPRESSION: 1. No acute intracranial findings. 2. Chronic age related findings. 3. 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 Reviewed, dictated and finalized at location B. RMATION TECHNOLOGY TEACHER
--- NOTE | ~2021-12-29 | XR_ITS ---
EXAMINATION: XR barium swallow modified DATE: 12/30/2021 10:01 INDICATION: Dysphagia. TECHNIQUE: The patient was given barium-containing material of multiple consistencies to swallow by t olman speech pathologist while I performed fluoroscopy. Fluoroscopy exposure time was 2.2 minutes. The n umber of fluoroscopy images saved to the PACS was 1. Dose-area product was 1.81 Gy-cm^2. FINDINGS: There is trace vallecular residue. There is scant pyriform sinus residue and pharyngeal wall residue. There was laryngeal penetration with thin liquids and mildly thick liquids. IMPRESSION: 1. Laryngeal penetration with thin liquids and mildly thick liquids. 2. Please refer to the speech therapy report for recommendations. Reviewed, dictated and finalized at location A. RUCTIONAL SYSTEMS DESIGN CONSULTANT
--- NOTE | ~2021-12-29 | XR_ITS ---
EXAMINATION: XR chest 2V EXAM DATE: 12/29/2021 12:46 INDICATION: Confusion, cough. TECHNIQUE: Frontal and lateral projections of the chest obtained and reviewed. Comparison is made to prior examination from 12/25/2021. FINDINGS: There is cardiomegaly and pulmonary vascular congestion. Left midlung zone scarring unchan ged. Chronic hyperinflation. No confluent consolidation, pneumothorax or pleural effusion suspected. The bones are osteopenic. There are bony degenerative changes. Impression: cardiomegaly, pulmonary vascular congestion. Reviewed, dictated and finalized at location B. F COIN COLLECTOR Impression: cardiomegaly, pulmonary vascular congestion.
--- NOTE | ~2021-12-29 | US_ITS ---
EXAMINATION: US venous doppler [facility] DATE: 12/30/2021 08:37 INDICATION: Right lower limb edema. TECHNIQUE: Grayscale ultrasound images without and with compression and Doppler ultrasound images of the bilateral lower extremity veins were obtained. COMPARISON: None. FINDINGS: The visualized portions of right common femoral vein, profunda (deep) femoral vein, femoral vein, pop liteal vein, peroneal veins, posterior tibial veins, and greater saphenous vein outflow are patent. The visualized portions of left common femoral vein, profunda femoral vein, femoral vein, popliteal v ein, and greater saphenous vein outflow are patent. 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 IMPRESSION: 1. No deep venous thrombosis. Reviewed, dictated and finalized at location A. NEYMAN SHEET METAL WORKER
--- NOTE | 2021-12-29 11:58 | PC.NURSE ---
Top Loader placed call to [facility] regarding discharge planing. Patient lives alone in his home, is wheelchair bound, per EMS patient calls out for help for anything, and doesn't have the care needed at home. Per [facility] place PT and OT order for eval.
--- NOTE | 2021-12-29 12:10 | ECG_ITS ---
Measurements Intervals [place] Rate: 80 P: VT: 0 QRS: 54 QRSD: 96 T: 60 QT: 345 QTc: 398 Interpretive Statements ATRIAL FIBRILLATION WITH VENTRICULAR PREMATURE COMPLEXES MINIMAL ST DEPRESSION [0.025+ mV ST DEPRESSION] ABNORMAL RHYTHM ECG COMPARED TO ECG 07/19/2021 10:06:58 PVCS ARE NOW PRESENT Electronically Signed On 12-29-2021 15:58:45 MATCHBOOK ASSEMBLER by Master Eric M.D.
--- NOTE | 2021-12-29 12:10 | PC.NURSE ---
Per EMS once they and a motorcycle police were on scene, physically with the patient, the patient pickup up the phone and called 911 again. Patient is A&Ox3 a this time, however has periods of confusion.
--- NOTE | 2021-12-29 12:13 | ED.GENADULT ---
HPI - General Adult General Chief complaint: Wound/Laceration Stated complaint: small lac to leg 2 days ago Time Seen by Provider: 12/29/21 11:57 Source: EMS, RN notes reviewed and old records reviewed History of Present Illness HPI narrative: Patient was brought in for a fall with a laceration to his right reis. Patient is unable to articulate why he is here or how he received this injury. Per EMS he fell out of his wheelchair. Patient does not answer questions regarding pain radiation areas of numbness or weakness Related Data Home Medications Medication Instructions Recorded Confirmed acetaminophen 1,000 mg PO Q6-8H PRN 12/02/20 12/08/21 aspirin 325 mg PO DAILY 12/02/20 12/08/21 folic acid 1 mg PO DAILY 12/02/20 12/08/21 ammonium lactate 1 applic TOPICAL DAILY 06/09/21 12/08/21 gabapentin 100 mg PO TID 11/06/21 12/08/21 Allergies Allergy/AdvReac Type Severity Reaction Status Date / Time niacin Allergy Intermediate Rash/itchin Verified 12/08/21 11:12 g hydrocodone [From [place]] AdvReac Confusion Verified 12/08/21 11:12 Review of Systems Review of Systems: ROS unobtainable: Yes unobtainable due to mental status PMFSH Past Medical History Medical History Alcohol abuse History of alcohol abuse though he has cut back significantly in the last 6 months or so. Now drinking a couple of beers a day. Anxiety Asthma Benign prostatic hyperplasia Cerebrovascular accident Chronic abscess of lower leg Chronic anemia Chronic obstructive pulmonary disease Chronic respiratory failure with hypoxia, on home O2 therapy Depression Diabetic foot ulcer Diabetic peripheral neuropathy Diastolic congestive heart failure Former smoker Gastroesophageal reflux disease Hearing loss Hypertension Ichthyosis vulgaris Irritable bowel syndrome Mixed hyperlipidemia MRSA (methicillin resistant Staphylococcus aureus) septicemia (09/2020) Osteoarthritis Osteomyelitis History of osteomyelitis of both feet requiring multiple amputations. Pancreatitis (03/2021) Persistent atrial fibrillation Not on long-term anticoagulation. Takes aspirin 325 mg daily. Pulmonary hypertension Echocardiogram on 06/08/2021 showed normal left ventricular systolic function with an EF estimated 65 to 70%, mildly increased LV wall thickness, severely enlarged right atrial chamber, mildly enlarged left atrial chamber, mild mitral valve and trace tricuspid valve regurgitation, and mild pulmonary hypertension with an estimated pulmonary arterial systolic pressure of 35 mmHg. Sacrum and coccyx fracture Type 2 diabetes mellitus Hemoglobin A1c was 6.6% on 06/09/2021. Surgical History Surgical History History of bilateral cataract extraction History of incision and drainage Right hip abscess. History of left below knee amputation (~11/17/20) Performed by Dr. 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 He gets Meals on Wheels. He is and has 7 children, 3 that live close by. 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 Smoked a pack of cigarettes per day for 58 years and quit in December of 2018. He has a history of alcohol abuse although he says he is not drinking much anymore, 2 beers a night at most. No illicit substance use though he used marijuana previously. He designates his daughter, Adwoa Xiong,
[2021-12-29 13:05] LABS: Basophils Absolute Auto 0.1 K/mm3 (0.0-0.1); Basophils Percent Auto 0.3 % (0.2-1.2); Hematocrit 37.8 % (42.0-52.0); Hemoglobin 11.9 g/dL (14.0-18.0); Immature Granulocyte Percent A 1.9 % (0-0.5); Lymphocytes Absolute Auto 0.45 K/mm3 (0.9-3.2); Lymphocytes Percent Auto 2.8 % (18.3-44.2); Mean Corpuscular HGB Conc 31.5 g/dl (32-36); Mean Corpuscular Hemoglobin 27.2 pg (26-34); Mean Corpuscular Volume 86.3 fl (80-100); Mean Platelet Volume 9.1 fl (7.4-10.4); Monocytes Absolute Auto 0.7 K/mm3 (0.1-0.6); Monocytes Percent Auto 4.3 % (2.6-8.5); Neutrophils Absolute Auto 14.6 K/mm3 (1.3-6.7); Neutrophils Percent Auto 90.7 % (45.5-73.1); Platelet Count Result 189 k/mm3 (150-375); Red Blood Count 4.38 M/mm3 (4.6-6.20); Red Cell Distribution Width 14.6 % (11.5-14.5); White Blood Count 16.1 K/mm3 (4.5-10.0)
[2021-12-29 13:08] LABS: Add Urine Microscopic? YES; Appearance Urine Clear (Clear); Bilirubin Urine Negative (Negative); Blood Urine 2+ (Negative); Color Urine Yellow (Yellow); Glucose Urine UA Negative (Negative); Ketones Urine 1+ mg/dL (Negative); Leukocyte Esterase Ur Negative LEU/UL (Negative); Nitrate Urine Negative (Negative); Protein Urine 2+ mg/dL (Negative); RBC Urine 0-2 /hpf (0-2); Specific Grav Ur 1.014 (1.001-1.035); Urobilinogen Urine Negative mg/dL (<2.0); WBC Urine 0-3 /hpf
[2021-12-29 13:16] LABS: Ovalocytes 1+ (NORMAL); Platelet Estimate Adequate (Adequate)
[2021-12-29 13:18] LABS: Ammonia < 9 umol/L (9-30); Ethanol < 10 mg/dL (<10)
[2021-12-29 13:18] LABS: Lactic Acid Reflex 1.2 mmol/L (0.7-2.1)
[2021-12-29 13:20] LABS: Alanine Aminotransferase 26 U/L (4-50); Albumin Level 4.7 g/dL (3.5-5.1); Alkaline Phosphatase 161 U/L (38-126); Anion Gap 14 mmol/L (8-16); Aspartate Amino Transferase 91 U/L (17-59); Bilirubin,Total 0.8 mg/dL (0.2-1.3); Blood Urea Nitrogen 42 mg/dL (9-20); Calcium 8.7 mg/dL (8.4-10.2); Carbon Dioxide 21 mmol/L (22-30); Chloride 91 mmol/L (98-107); Estimated CRCL calculation 48 ml/min; Estimated Glomerular Filt Rate 54; Glucose 138 mg/dL (65-110); Potassium 5.6 mmol/L (3.4-5.0); Sodium 126 mmol/L (137-145)
[2021-12-29] MEDS: methylPREDNISolone SOD SUCC 125 MG VIAL IV PUSH (14:37)
[2021-12-29] MEDS: IPRATROPIUM BR 0.02% INH SOLN 0.5 MG/2.5 ML VIAL 1.5 MG INHALATION (14:38)
[2021-12-29] MEDS: ALBUTEROL SULFATE NEB 2.5 MG/0.5 ML INH 15 MG INHALATION (14:38)
[2021-12-29 14:46] LABS: Alveolar/Arterial O2 Gradient 91.8 mmHg; Base Excess ABG -6.5 mEq/l (+/-2.0); Fractional Inspired Oxygen 32 %; HCO3 ABG 20.8 mEq/l (22.0-26.0); Oxygen Content ABG 16.4 %vol (16.0-22.0); Oxygen Saturation ABG 93.7 % (95.0-100.0); Oxyhemoglobin 93.6 % THb (90.0-100.0); PCO2 ABG 48.7 mmHg (35.0-45.0); PO2 ABG 79.4 mmHg (80.0-100.0); PO2 FiO2 Ratio Arterial Blood 2.48 %; Total Hemoglobin 12.4 g/dL (12.0-18.0)
[2021-12-29 14:49] LABS: Device NASAL CANNULA; Modified Allen's Test Pass; Site Drawn RIGHT RADIAL; pH ABG 7.248 (7.350-7.450)
[2021-12-29] MEDS: FUROSEMIDE INJ 40 MG/4 ML VIAL IV PUSH ×2 (15:12→21:42)
[2021-12-29] MEDS: SODIUM CHLORIDE 0.9% IV 500 ML 999 ML IV CONT (15:20)
--- NOTE | 2021-12-29 15:20 | PC.NURSE ---
@15:00 Pt in room with RT at bedside. ABG's and Neb treatments completed.
--- NOTE | 2021-12-29 15:22 | PC.NURSE ---
ER physician in to discuss with pt about admission.
[2021-12-29 15:38] LABS: NT Pro B Type Natriuretic Pept 10700 pg/mL (5-100)
[2021-12-29 15:57] LABS: SARS-CoV-2 RNA PCR Negative
[2021-12-29 17:12] LABS: Alveolar/Arterial O2 Gradient 84.9 mmHg; Base Excess ABG -8.8 mEq/l (+/-2.0); Carboxyhemoglobin 0.5 % THb (0-2.0); Fractional Inspired Oxygen 28 %; HCO3 ABG 16.9 mEq/l (22.0-26.0); Methemoglobin ABG 0.3 %THb (0-1.5); Oxygen Saturation ABG 93.1 % (95.0-100.0); Oxyhemoglobin 92.5 % THb (90.0-100.0); PCO2 ABG 35.9 mmHg (35.0-45.0); PO2 ABG 72.4 mmHg (80.0-100.0); PO2 FiO2 Ratio Arterial Blood 2.59 %; Reduced Hemoglobin 6.7 %THb (0-5.0); Total Hemoglobin 12.3 g/dL (12.0-18.0)
[2021-12-29 17:14] LABS: Device NASAL CANNULA; Modified Allen's Test Pass; Site Drawn RIGHT RADIAL; pH ABG 7.291 (7.350-7.450)
--- NOTE | 2021-12-29 17:24 | PCCCNOTE ---
Addendum entered by Anum Cameron RN 12/29/21 17:25: CC spoke with daughter, Annetta whom also agreed patient needs placement. Original Note: met with patient in the ER, patient is going to be admitted as OBVS. patient is alert and oriented x 3, I ADL and lives alone. patient was recently d/c from [facility]. PT/OT evaled patient while in ER, recommended SNF, and patient was accepted back to [facility]. CC also submitted for [employer] auth and that was obtained : [id number]. Randi was updated with auth. per patient will likely dc Saturday. Randi with [facility] notified. patient will need a covid swab prior to transfer. CC will continue to follow for any needs that arise. family was also notified. VM left for Adwoa. [ End ]
--- NOTE | 2021-12-29 17:45 | PM.IMHP ---
H&P: HPI History of Present Illness Date/Time: 12/29/21 17:45 Chief Complaint: Injury to right reis. Narrative: This a 76-year-old male with multiple medical problems including chronic respiratory failure on home oxygen, chronic obstructive pulmonary disease, atrial fibrillation, type 2 diabetes mellitus, hypertension, and several other comorbidities who presented to the emergency department via EMS from home for evaluation of a small abrasion on his right reis sustained when he fell out of his wheelchair 2 days ago. Patient reports that he bent over to pick something off of the floor and he fell forward out of his wheelchair. He sustained a small abrasion on the right reis, was able to get himself back in the wheelchair, and apparently has been doing okay. I am not certain why he decided to call the ambulance today but that is the specific reason he gave them for wishing to come to the ER. The ?wound? is a mere scrape. More importantly, he also reported increasing shortness of breath from his baseline, chronic dyspnea over the past several days. He also mentions a chronic cough which has been worsening the past couple of days and is now productive of white/clear phlegm. He was given a nebulizer and a dose of Solu-Medrol in the ER with improvement in his shortness of breath. He got up with physical therapy at which time he was noted to desaturate and it was felt best to keep him in the hospital for treatment of a COPD exacerbation. At the time my evaluation his main complaint is that of thirst ?because nobody is allowing me to have a drink.? I did offer the patient a small glass of water and shortly after taking a drink he began to have a coughing fit. With further questioning, he denied dysphagia and concerns for aspiration and tells me that this never happens. He denies fever, chills, sweats, sinus congestion, sore throat, chest pain, pleuritic pain, palpitations, nausea, vomiting, and diarrhea. Review of Systems Review of Systems: Twelve systems were reviewed. He denies sick contacts. No lightheadedness or dizziness. No syncope or near syncope. Denies orthopnea, PND, and right lower extremity edema. He is status post left [id number] amputation. He has cut back heavily on his drinking over the last year or more and now drinks a couple of beers several times a week. No alcohol withdrawal signs or symptoms. Currently wearing a brace on his left wrist after falling forward out of his wheelchair a couple months ago. He apparently sustained a distal radius fracture and is being followed by Dr. Berger. Except as documented, all other systems were reviewed and are negative. [facility] Past Medical History Medical History (Updated 12/29/21 @ 21:06 by Kierra Mckeon PA-C) Alcohol abuse History of alcohol abuse though he has cut back significantly in the last 6 months or so. Now drinking a couple of beers 5 days a week. Anxiety Asthma Benign prostatic hyperplasia Cerebrovascular accident Chronic abscess of lower leg Chronic anemia Chronic hyponatremia Chronic obstructive pulmonary disease Chronic respiratory failure with hypoxia, on home O2 therapy Depression Diabetic foot ulcer Diabetic peripheral neuropathy Diastolic congestive heart failure Former smoker Gastroesophageal reflux disease Hearing loss Hypertension Ichthyosis vulgaris Irritable bowel syndrome Mixed hyperlipidemia MRSA (methicillin resistant Staphylococcus aureus) septicemia (09/2020) Osteoarthritis Osteomyelitis History of osteomyelitis of both feet requiring multiple amputations. Pancreatitis (03/2021) Persistent atrial fibrillation Not on long-term anticoagulation. Takes aspirin 325 mg daily. Pulmonary hypertension Echocardiogram on 06/08/2021 showed normal left ventricular systolic function with an EF estimated 65 to 70%, mildly increased LV wall thickness, severely enlarged right atrial chamber, mildly enlarged left atrial chamber, mild mitral valve and trace tricuspid valve regu
--- NOTE | 2021-12-29 18:45 | PC.NURSE ---
Patient care report called to PAUL Valverde on Med/Surg. All questions answered at this time.
[2021-12-29] MEDS: ALBUTEROL SULFATE NEB 2.5 MG/0.5 ML INH 5 MG INHALATION (19:36)
[2021-12-29] MEDS: IPRATROPIUM BR 0.02% INH SOLN 0.5 MG/2.5 ML VIAL INHALATION (19:37)
[2021-12-29 21:25] LABS: Chloride 91 mmol/L (98-107)
[2021-12-29 21:30] LABS: Anion Gap 17 mmol/L (8-16); Blood Urea Nitrogen 37 mg/dL (9-20); Carbon Dioxide 22 mmol/L (22-30); Estimated CRCL calculation 62 ml/min; Estimated Glomerular Filt Rate > 60; Glucose 229 mg/dL (65-110); Potassium 4.1 mmol/L (3.4-5.0); Sodium 130 mmol/L (137-145)
[2021-12-29] MEDS: methylPREDNISolone SOD SUCC 125 MG VIAL 60 MG IV PUSH (21:42)
[2021-12-29 22:13] LABS: Thyroid Stimulating Hormone Reflex 0.438 uIU/mL (0.465-4.68)
[2021-12-29 22:41] LABS: Free T4 Free Thyroxine Reflex 1.11 ng/dL (0.78-2.19)
[2021-12-30] VITALS (21 sets, daily range): BP systolic 126–142; BP diastolic 59–79; PULSE 56–108; RESP 18–22; TEMP 36.5–37.1; O2SAT 92–99
[2021-12-30] MEDS: traZODone HCL 50 MG TABLET PO ×2 (00:43→20:07)
[2021-12-30] MEDS: METOPROLOL TARTRATE 25 MG TABLET PO ×3 (00:43→20:07)
[2021-12-30] MEDS: GABAPENTIN 100 MG CAPSULE PO ×4 (00:43→18:10)
[2021-12-30] MEDS: methylPREDNISolone SOD SUCC 125 MG VIAL 60 MG IV PUSH ×5 (00:45→23:17)
[2021-12-30] MEDS: IPRATROPIUM BR 0.02% INH SOLN 0.5 MG/2.5 ML VIAL INHALATION ×4 (01:38→21:38)
[2021-12-30] MEDS: ALBUTEROL SULFATE NEB 2.5 MG/0.5 ML INH 5 MG INHALATION ×4 (01:38→21:38)
[2021-12-30 05:39] LABS: Hematocrit 38.2 % (42.0-52.0); Hemoglobin 12.1 g/dL (14.0-18.0); Mean Corpuscular HGB Conc 31.7 g/dl (32-36); Mean Corpuscular Hemoglobin 26.7 pg (26-34); Mean Corpuscular Volume 84.1 fl (80-100); Mean Platelet Volume 9.9 fl (7.4-10.4); Platelet Count Result 174 k/mm3 (150-375); Red Blood Count 4.54 M/mm3 (4.6-6.20); Red Cell Distribution Width 14.9 % (11.5-14.5); White Blood Count 9.6 K/mm3 (4.5-10.0)
[2021-12-30 05:49] LABS: Alanine Aminotransferase 27 U/L (4-50); Albumin Level 4.2 g/dL (3.5-5.1); Alkaline Phosphatase 155 U/L (38-126); Anion Gap 12 mmol/L (8-16); Aspartate Amino Transferase 78 U/L (17-59); Bilirubin,Total 0.7 mg/dL (0.2-1.3); Blood Urea Nitrogen 31 mg/dL (9-20); Calcium 8.6 mg/dL (8.4-10.2); Carbon Dioxide 31 mmol/L (22-30); Chloride 90 mmol/L (98-107); Estimated CRCL calculation 68 ml/min; Estimated Glomerular Filt Rate > 60; Glucose 175 mg/dL (65-110); Magnesium 1.7 mg/dL (1.6-2.3); Potassium 3.4 mmol/L (3.4-5.0); Sodium 133 mmol/L (137-145)
[2021-12-30 06:37] LABS: Sodium Urine Random 63 meq/L
[2021-12-30 06:40] LABS: Creatinine Urine 21.8 mg/dL
[2021-12-30] MEDS: PERFLUTREN LIPID MICROSPHERES 1.5 ML VIAL DILUTED TO 10 ML TOTAL VOLUME IV PUSH (06:59)
[2021-12-30] MEDS: UMECLIDINIUM BROMIDE 62.5 MCG ELLIPTA 1 PUFF INHALATION (08:47)
--- NOTE | 2021-12-30 10:15 | PM.IMPN ---
Progress Note: A&P Additional Plan Assessment and plan (1) COPD exacerbation: Code(s): J44.1 - Chronic obstructive pulmonary disease with (acute) exacerbation Status: Acute Assessment and Plan: - Continue abx, nebulizers, oxygen titration management and steroids. - Continue to monitor. (2) Chronic hyponatremia: Code(s): E87.1 - Hypo-osmolality and hyponatremia Status: Acute Assessment and Plan: - Sodium is normal low at 133 today and this is improvement. Urine osmolality is pending. Urine creatinine and urine sodium are normal and there is no infection. - Suspect that the very mild hyponatremia that was present was due to dehydration. (3) Hyperkalemia: Code(s): E87.5 - Hyperkalemia Status: Resolved Assessment and Plan: - Resolved with a Potassium level this AM of 3.4. (4) Chronic respiratory failure with hypoxia, on home O2 therapy: Code(s): J96.11 - Chronic respiratory failure with hypoxia; Z99.81 - Dependence on supplemental oxygen Status: Acute Assessment and Plan: - Respiratory following. - Pt. is currently at his baseline oxygen requirement of 3L. - OK to titrate as needed. (5) Type 2 diabetes mellitus: Code(s): E11.9 - Type 2 diabetes mellitus without complications Status: Chronic Assessment and Plan: - A1C = 5.8 - Continue SSI, Hypoglycemic protocol and accu checks. (6) Frequent falls: Code(s): R29.6 - Repeated falls Status: Acute Assessment and Plan: - Fall precautions. - PT/OT evaluation. - Pt. has refused placement previously. (7) Congestive heart failure: Code(s): I50.9 - Heart failure, unspecified Status: Acute Assessment and Plan: - Current exacerbation as evidenced by BNP and CXR imaging showing Pleural effusion. - Diuresis with lasix started with Lasix 40 mg IVP BID. - Daily weights - Accurate I&O. - ECHO ordered and performed. Results are pending. - Heart healthy diet. (8) Acidosis: Code(s): E87.2 - Acidosis Status: Acute Assessment and Plan: - Stable. Not Acidotic. (9) Dysphagia: Code(s): R13.10 - Dysphagia, unspecified Status: Acute Assessment and Plan: - Pt. had modified barium swallow this AM that showed Laryngeal penetration with thin liquids and mildly thick liquids. Awaiting definitive speech therapy recommendations. Time Spent With Patient Time with patient: 15 - 25 minutes Subjective Date/time seen: 12/30/21822 This pt. was examined at the bedside today in interval assessment. He is somewhat confused and saying he wasn't sure why he is here. 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 He wears 3L of oxygen at home normally and states that for the past few days he has had a productive cough of thick, white sputum. He notes that he desaturates with exertion. In addition, he was noted by nursing staff to appear to choke with swallowing or eating. Pt. will be given a swallow evaluation today. He has a brace noted to his left wrist that is being treated by Dr. Berger from a previous fall. He does not appear to be in any acute distress today. He has no complaints of N/V/CP/Dyspnea. Review of Systems Review of Systems: A full 12 point ROS was obtained and is otherwise unremarkable with exception of what is noted in HPI. All systems reviewed & are unremarkable except as noted in HPI and below Exam Const: General: comfortable and no acute distress Other: Appears to be very unkempt. HENMT: Mouth: Yes moist mucous membranes Eyes: Sclera: sclerae normal Neck: Neck: supple and no JVD Thyroid: thyroid normal Lymphatic: lymphadenopathy not noted Resp: Auscultation: diminished lung sounds (all lobes both anterior and posteriorly.) diffuse Cardio: Rate: regular rate Rhythm: regular rhythm GI:
[2021-12-30] MEDS: ENOXAPARIN 40 MG/0.4 ML SYRINGE SUB-Q (10:19)
[2021-12-30] MEDS: SERTRALINE HCL 50 MG TABLET PO (10:19)
[2021-12-30] MEDS: MAGNESIUM OXIDE 400 MG TABLET PO (10:20)
[2021-12-30] MEDS: SIMVASTATIN 10 MG TABLET PO (10:20)
[2021-12-30] MEDS: FUROSEMIDE INJ 40 MG/4 ML VIAL IV PUSH ×2 (10:21→20:06)
--- NOTE | 2021-12-30 11:57 | PCSTNOTE ---
Please refer to the Modified Barium Swallow Evaluation in the EMR.
[2021-12-30] MEDS: amLODIPine BESYLATE 5 MG TABLET 10 MG PO (13:12)
[2021-12-30] MEDS: FOLIC ACID 1 MG TABLET PO (13:12)
[2021-12-30] MEDS: ASPIRIN 325 MG ENTERIC TABLET PO (13:12)
[2021-12-30] MEDS: traMADol HCL (*CRX) 50 MG TABLET PO ×2 (13:17→20:14)
[2021-12-30 20:30] LABS: Glucose Point of Care 331 mg/dl (65-105)
--- NOTE | 2021-12-30 21:06 | ECHO_ITS ---
Patient Info Name: Ludin Mcguire Age: 76 years : 1945 Gender: Male Ht: 73 in Wt: 170 lbs BSA: 1.99 m2 HR: 78 bpm BP: 121 / 97 mmHg Heart Rhythm: Atrial Fibrillation Technical Quality: Poor Exam Date: 12/30/2021 6:59 AM Exam Location: [facility] Patient Status: Inpatient Admit Date: 12/29/2021 Staff Ordering Physician: Kierra Mckeon PA-C E Commerce Solution Architect: Avis Brown RDCS Attending Provider: Heidi Haskins Referring Physician: Linda MESA; Exam Type: CA echo dop color flow w con Study Info Indications I50.20 - Unspecified systolic (congestive) heart failure Complete two-dimensional, color flow and Doppler transthoracic echocardiogram is performed with contrast to opacify the left ventricle and to improve the deliniation of the left ventricle endocardial borders. Contrast/Agitated Saline Contrast/Ag. Saline: Definity Amount: 4.00 ml New IV Access: Inner Forearm Reason for Poor Study: poor patient cooperation Summary 1. Technically difficult study with limited views. 2. Left ventricular chamber dimension is normal. 3. Left ventricular systolic function is hyperdynamic, estimated at >70%. 4. There is mildly increased left ventricular wall thickness. 5. Left atrial chamber dimension is moderately enlarged. 6. Right atrial chamber dimension is moderately enlarged. 7. There is trace tricuspid valve regurgitation. 8. Moderate pulmonary hypertension, estimated pulmonary arterial systolic pressure is 49 mmHg. Left Ventricle Left ventricular chamber dimension is normal. Left ventricular systolic function is hyperdynamic, estimated at >70%. There is mildly increased left ventricular wall thickness. The left ventricular diastolic function is indeterminate. Technically difficult study with limited views. Right Ventricle Right ventricular chamber dimension is normal. Right ventricular systolic function is normal. Left Atria Left atrial chamber dimension is moderately enlarged. Right Atria Right atrial chamber dimension is moderately enlarged. Aortic Valve The aortic valve is not well visualized. There is no aortic valve stenosis. There is no aortic valve regurgitation. Pulmonic Valve The pulmonic valve is not well visualized. There is trace pulmonic regurgitation. Mitral Valve The mitral valve has normal leaflets. There is trace mitral valve regurgitation. The mitral valve annulus is mildly calcified. Tricuspid Valve The tricuspid valve leaflets are normal. There is trace tricuspid valve regurgitation. Moderate pulmonary hypertension, estimated pulmonary arterial systolic pressure is 49 mmHg. Pericardium/Pleural The pericardium appears epicardial fat pad. There is small pericardial effusion. Inferior Vena Cava Normal inferior vena cava with >50% collapse upon inspiration consistent with normal right atrial pressure, 5 mmHg. Aorta The aortic root size at the sinus of Valsalva is normal. Left Ventricular Outflow Tract Name Value Normal LVOT 2D LVOT Diameter 1.88 cm LVOT Doppler LVOT Peak Gradi
[2021-12-30] MEDS: INSULIN ASPART (*BKC) 100 UNITS/ML SUB-Q (21:17)
[2021-12-31] VITALS (11 sets, daily range): BP systolic 114–131; BP diastolic 60–74; PULSE 77–101; RESP 16–20; TEMP 35.9–36.7; O2SAT 91–96
[2021-12-31] MEDS: methylPREDNISolone SOD SUCC 125 MG VIAL 60 MG IV PUSH ×2 (05:25→12:01)
[2021-12-31 07:51] LABS: Glucose Point of Care 264 mg/dl (65-105)
[2021-12-31] MEDS: IPRATROPIUM BR 0.02% INH SOLN 0.5 MG/2.5 ML VIAL INHALATION (07:58)
[2021-12-31] MEDS: ALBUTEROL SULFATE NEB 2.5 MG/0.5 ML INH 5 MG INHALATION (07:58)
[2021-12-31] MEDS: INSULIN ASPART (*BKC) 100 UNITS/ML SUB-Q ×2 (08:07→12:02)
[2021-12-31] MEDS: amLODIPine BESYLATE 5 MG TABLET 10 MG PO (08:08)
[2021-12-31] MEDS: FUROSEMIDE INJ 40 MG/4 ML VIAL IV PUSH (08:08)
[2021-12-31] MEDS: SERTRALINE HCL 50 MG TABLET PO (08:08)
[2021-12-31] MEDS: MAGNESIUM OXIDE 400 MG TABLET PO (08:08)
[2021-12-31] MEDS: GABAPENTIN 100 MG CAPSULE PO ×2 (08:08→12:03)
[2021-12-31] MEDS: ASPIRIN 325 MG ENTERIC TABLET PO (08:08)
[2021-12-31] MEDS: SIMVASTATIN 10 MG TABLET PO (08:09)
[2021-12-31] MEDS: FOLIC ACID 1 MG TABLET PO (08:09)
[2021-12-31] MEDS: METOPROLOL TARTRATE 25 MG TABLET PO (08:09)
[2021-12-31] MEDS: ENOXAPARIN 40 MG/0.4 ML SYRINGE SUB-Q (08:12)
[2021-12-31 08:41] LABS: EDCOVIDSCREEN Negative (Negative)
--- NOTE | 2021-12-31 10:42 | PCPTNOTE ---
PT eval was performed on 12-29-21 by another PT, the plan of care was not activated and PT goals were not established. I reviewed the EMR today, activated the plan of care and goals for the pt.
--- NOTE | 2021-12-31 11:36 | PM.DS ---
DS: Admitting Diagnosis Discharge Date 12/31/21 Admitting Diagnosis 1) COPD Exacerbation 2) Chronic Hyponatremia 3) Hyperkalemia 4) Chronic Respiratory Failure with hypoxia 5) DM2 6) Frequent Falls DS: Discharge Diagnosis Discharge Diagnosis (1) COPD exacerbation: Code(s): J44.1 - Chronic obstructive pulmonary disease with (acute) exacerbation Status: Chronic Assessment and Plan: - Improved, pt weaned off of oxygen. - Will continue abx and steroids at outside facility. - Continue to monitor labs and VS. (2) Chronic hyponatremia: Code(s): E87.1 - Hypo-osmolality and hyponatremia Status: Resolved (3) Hyperkalemia: Code(s): E87.5 - Hyperkalemia Status: Resolved (4) Acute and chronic respiratory failure: Qualifiers: Respiratory failure complication: unspecified whether with hypoxia or hypercapnia Qualified Code(s): J96.20 - Acute and chronic respiratory failure, unspecified whether with hypoxia or hypercapnia Code(s): J96.20 - Acute and chronic respiratory failure, unspecified whether with hypoxia or hypercapnia Status: Chronic Assessment and Plan: - Improved beyond baseline. - Stable (5) Diabetes: Qualifiers: Diabetes mellitus type: type 2 Diabetes mellitus termite control technician insulin use: unspecified termite control technician insulin use status Diabetes mellitus complication status: with circulatory complication Diabetes mellitus complication detail: with peripheral angiopathy without gangrene Qualified Code(s): E11.51 - Type 2 diabetes mellitus with diabetic peripheral angiopathy without gangrene Code(s): E11.9 - Type 2 diabetes mellitus without complications Status: Chronic Assessment and Plan: - Continue glucose checks at outside facility as well as home glycemic control. - Follow up with PCP. (6) Fall: Qualifiers: Encounter type: subsequent encounter Qualified Code(s): W19.XXXD - Unspecified fall, subsequent encounter Code(s): W19.XXXA - Unspecified fall, initial encounter Status: Acute Assessment and Plan: - Fall precautions. (7) Congestive heart failure: Qualifiers: Heart failure type: systolic Heart failure chronicity: chronic Qualified Code(s): I50.22 - Chronic systolic (congestive) heart failure Code(s): I50.9 - Heart failure, unspecified Status: Chronic Assessment and Plan: - Stable without acute exacerbation. (8) Acidosis: Code(s): E87.2 - Acidosis Status: Resolved DS: Summary Hospital Course Reason for hospitalization: Dyspnea Hospital Course: This 76 year old pleasantly confused male patient with significant PMH of Chronic respiratory failure requiring oxygen at home, COPD, Atrial fibrillation on oral anticoagulation, Type 2 DM and HTN, presented to the ER via EMS on 12/29/21 from home. Pt. had fallen out of his wheelchair at home two days prior to arrival and the pt. then decided that he would call EMS to come to the hospital to have his abrasion looked at on his right reis. The area was scabbed over and there were no further lesions or acute wounds noted. At the same time, he endorsed a chronic cough that had worsened over a couple of days and he had a clear/white sputum present. He did initially feel dyspneic and this improved with nebulizer treatments. He initially desaturated with PT and was subsequently hospitalized for treatment of his COPD. His workup in ER was performed and was significant for a WBC of 16.1, Potassium of 5.6, sodium of 126, CO2 of 21, and BUN of 42. Imaging consisted of a CT of the head that showed no acute intracranial findings, chronic age related findings and an old corpus callosal infartion. CXR showed cardiomegaly, and pulmonary vascular congestion. Pt. was initially given a dose of Lasix to help with his potassium level and it did work. During his hospitalization, his respiratory status has improved with abx and with steroid
[2021-12-31 11:47] LABS: Glucose Point of Care 322 mg/dl (65-105)
[2021-12-31] MEDS: UMECLIDINIUM BROMIDE 62.5 MCG ELLIPTA 1 PUFF INHALATION (14:21)
[2022-01-03 06:51] LABS: Osmolality, Urine 342 mOsm/kg (50-1200)
== END 2021-12-31 14:35 ==
LOC: ANHED 15:29 → ANH3MEDSUR 16:27
PROVIDERS: Physician Assistant; Admitting Provider Internal Medicine; Emergency Provider Emergency Medicine; PCP Emergency Medicine; Visit Provider Nurse Practitioner Adult Health
DX: J44.1 Chronic obstructive pulmonary disease with (acute) exacerbation (principal); E87.1 Hypo-osmolality and hyponatremia; E87.5 Hyperkalemia; S80.811A Abrasion, right lower leg, initial encounter; W05.0XXA Fall from non-moving wheelchair, initial encounter; E87.2 Acidosis; D72.829 Elevated white blood cell count, unspecified; J96.21 Acute and chronic respiratory failure with hypoxia; R29.6 Repeated falls; R13.10 Dysphagia, unspecified; R93.3 Abnormal findings on diagnostic imaging of other parts of digestive tract; R60.0 Localized edema; I11.0 Hypertensive heart disease with heart failure; I50.22 Chronic systolic (congestive) heart failure; I48.19 Other persistent atrial fibrillation; E78.2 Mixed hyperlipidemia; F41.8 Other specified anxiety disorders; N40.0 Benign prostatic hyperplasia without lower urinary tract symptoms; D64.9 Anemia, unspecified; E11.42 Type 2 diabetes mellitus with diabetic polyneuropathy; K58.9 Irritable bowel syndrome, unspecified; K21.9 Gastro-esophageal reflux disease without esophagitis; Z86.14 Personal history of Methicillin resistant Staphylococcus aureus infection; Z79.82 Long term (current) use of aspirin; Z86.73 Personal history of transient ischemic attack (TIA), and cerebral infarction without residual deficits; Z87.891 Personal history of nicotine dependence; Z20.822 Contact with and (suspected) exposure to COVID-19; Z89.512 Acquired absence of left leg below knee; Z89.431 Acquired absence of right foot
CPT/HCPCS: 36415; 36600; 51701; 70450; 71046; 80048; 80053; 80307; 81001; 82140; 82375; 82570; 82805; 82948; 83050; 83605; 83735; 83880; 83930; 83935; 84300; 84439; 84443; 84480; 85025; 85027; 87426; 92526; 92611; 93005; 93970; 94640; 96365; 96366; 96372; 96375; 96376; 97110; 97162; 97166; 97530; 99285; A9270; C8929; C9803; G0378; J0456; J1650; J1815; J1940; J2930; J7030; J7040; Q9957; U0003; U0005

== ENCOUNTER 2022-02-15 04:45 | Emergency (ER) | payer OTHER, MEDICAID, SELFPAY ==
[2022-02-15] VITALS (48 sets, daily range): BP systolic 103–162; BP diastolic 46–95; PULSE 51–95; RESP 14–26; TEMP 36.8; O2SAT 91–100
--- NOTE | ~2022-02-15 | XR_ITS ---
EXAMINATION: XR chest 1V portable EXAM DATE: 02/15/2022 05:05 INDICATION: SOB, COPD, DIABETIC, HTN,. TECHNIQUE: Portable AP frontal chest x-ray was obtained. Comparison is made to prior examination from 12/29/2021. FINDINGS: Some scattered regions postinfectious residua unchanged. Mild chronic hyperinflation. Mild cardiomegaly. No confluent consolidation, pneumothorax or pleural effusion suspected. There are mild bony degenerative changes. IMPRESSION: Mild cardiomegaly unchanged. Reviewed, dictated and finalized at location A.
--- NOTE | 2022-02-15 04:53 | ED.GENADULT ---
HPI - General Adult General Chief complaint: Shortness of Breath/Dyspnea Stated complaint: Shortness of breath Time Seen by Provider: 02/15/22 04:53 Source: patient Mode of arrival: EMS History of Present Illness HPI narrative: The patient is a 76 year old male with a complex medical history including COPD, chronic respiratory failure with oxygen dependence of 3 L NC who presents for evaluation of shortness of breath starting that awakened the patient from sleep. Patient reports that he woke up and his nasal cannula oxygen had been dislodged. Patient denies any increased cough, no rhinorrhea, sore throat. Denies any cough with increased sputum production. He denies any chest pain. Denies abdominal pain, nausea or vomiting. He denies any significant lower extremity swelling. He denies any fever or weakness. Patient states that he feels improved since his oxygen was replaced. He has not noticed any increased wheezing. He denies any pleuritic chest pain. Related Data Home Medications Medication Instructions Recorded Confirmed acetaminophen 1,000 mg PO Q6-8H PRN 12/02/20 12/29/21 aspirin 325 mg PO DAILY 12/02/20 12/29/21 folic acid 1 mg PO DAILY 12/02/20 12/29/21 gabapentin 100 mg PO TID 11/06/21 12/29/21 duloxetine 20 mg capsule,delayed 20 mg PO DAILY cap 02/12/22 release omeprazole 40 mg capsule,delayed 40 mg PO DAILY 02/12/22 release sucralfate 1 gram tablet PO TID tablet 02/12/22 Allergies Allergy/AdvReac Type Severity Reaction Status Date / Time niacin Allergy Intermediate Rash/itchin Verified 02/15/22 04:53 g hydrocodone [From [place]] AdvReac Confusion Verified 02/15/22 04:53 Review of Systems Review of Systems: CONSTITUTIONAL: Denies fever, chills, or sweats. EYES: Denies visual changes, redness, or discharge. ENT: Denies rhinorrhea, congestion, sore throat, or otalgia. CARDIOVASCULAR: Denies chest pain, palpitations, or edema. RESPIRATORY: Reports chronic cough, denies current dyspnea GASTROINTESTINAL: Denies abdominal pain, nausea, vomiting, or diarrhea. GENITOURINARY: Denies dysuria or hematuria. SKIN: Denies rash or itching. MUSCULOSKELETAL: Denies back pain, joint pain, or myalgia. NEUROLOGIC: Denies headache, numbness, or weakness. [facility] Past Medical History Medical History Alcohol abuse History of alcohol abuse though he has cut back significantly in the last 6 months or so. Now drinking a couple of beers 5 days a week. Anxiety Asthma Benign prostatic hyperplasia Cerebrovascular accident Chronic abscess of lower leg Chronic anemia Chronic hyponatremia Chronic obstructive pulmonary disease Chronic respiratory failure with hypoxia, on home O2 therapy Depression Diabetic foot ulcer Diabetic peripheral neuropathy Diastolic congestive heart failure Former smoker Gastroesophageal reflux disease Hearing loss Hypertension Ichthyosis vulgaris Irritable bowel syndrome Mixed hyperlipidemia MRSA (methicillin resistant Staphylococcus aureus) septicemia (09/2020) Osteoarthritis Osteomyelitis History of osteomyelitis of both feet requiring multiple amputations. Pancreatitis (03/2021) Persistent atrial fibrillation Not on long-term anticoagulation. Takes aspirin 325 mg daily. Pulmonary hypertension Echocardiogram on 06/08/2021 showed normal left ventricular systolic function with an EF estimated 65 to 70%, mildly increased LV wall thickness, severely enlarged right atrial chamber, mildly enlarged left atrial chamber, mild mitral valve and trace tricuspid valve regurgitation, and mild pulmonary hypertension with an estimated pulmonary arterial systolic pressure of 35 mmHg. Sacrum and coccyx fracture Type 2 diabetes mellitus Hemoglobin A1c was 6.6% on 06/09/2021. Surgical History Surgical History History of bilateral cataract extraction History of incision and drainage Righ
--- NOTE | 2022-02-15 04:54 | ECG_ITS ---
Measurements Intervals [place] Rate: 58 P: MA: 0 QRS: -1 QRSD: 91 T: 67 QT: 410 QTc: 403 Interpretive Statements ATRIAL FIBRILLATION WITH SLOW VENTRICULAR RESPONSE LOW QRS VOLTAGE IN EXTREMITY LEADS [QRS DEFLECTION < 0.5 mV IN LIMB LEADS] CANNOT RULE OUT SEPTAL MYOCARDIAL INFARCTION , PROBABLY OLD [40+ ms Q WAVE IN V1/V2] ABNORMAL ECG COMPARED TO ECG 12/29/2021 12:17:16 MYOCARDIAL INFARCT FINDING NOW PRESENT Electronically Signed On 02-15-2022 16:47:32 CDT by Min Lyon M.D.
[2022-02-15 05:35] LABS: Basophils Percent Auto 0.5 % (0.2-1.2); Eosinophils Absolute Auto 0.2 K/mm3 (0-0.3); Hematocrit 38.7 % (42.0-52.0); Hemoglobin 12.7 g/dL (14.0-18.0); Immature Granulocyte Absolute 0.06 K/mm3 (0.00-0.031); Immature Granulocyte Percent A 0.8 % (0-0.5); Lymphocytes Absolute Auto 1.28 K/mm3 (0.9-3.2); Lymphocytes Percent Auto 16.6 % (18.3-44.2); Mean Corpuscular HGB Conc 32.8 g/dl (32-36); Mean Corpuscular Hemoglobin 27.4 pg (26-34); Mean Corpuscular Volume 83.4 fl (80-100); Mean Platelet Volume 9.3 fl (7.4-10.4); Monocytes Absolute Auto 0.5 K/mm3 (0.1-0.6); Monocytes Percent Auto 6.2 % (2.6-8.5); Neutrophils Absolute Auto 5.6 K/mm3 (1.3-6.7); Neutrophils Percent Auto 72.9 % (45.5-73.1); Platelet Count Result 243 k/mm3 (150-375); Red Blood Count 4.64 M/mm3 (4.6-6.20); White Blood Count 7.7 K/mm3 (4.5-10.0)
[2022-02-15 05:45] LABS: Alanine Aminotransferase 13 U/L (4-50); Albumin Level 3.9 g/dL (3.5-5.1); Alkaline Phosphatase 128 U/L (38-126); Anion Gap 11 mmol/L (8-16); Aspartate Amino Transferase 35 U/L (17-59); Bilirubin,Total 0.3 mg/dL (0.2-1.3); Blood Urea Nitrogen 14 mg/dL (9-20); Calcium 7.7 mg/dL (8.4-10.2); Carbon Dioxide 22 mmol/L (22-30); Chloride 102 mmol/L (98-107); Estimated Glomerular Filt Rate > 60; Glucose 86 mg/dL (65-110); Potassium 3.6 mmol/L (3.4-5.0); Sodium 135 mmol/L (137-145)
[2022-02-15 06:06] LABS: NT Pro B Type Natriuretic Pept 1190 pg/mL (5-100); Troponin I 0.082 ng/mL (0.000-0.034)
[2022-02-15 06:14] LABS: Thyroid Stimulating Hormone 0.878 uIU/mL (0.465-4.680)
[2022-02-15] MEDS: ASPIRIN 81 MG CHEWABLE TABLET 324 MG PO (06:41)
[2022-02-15 09:02] LABS: Troponin I 0.085 ng/mL (0.000-0.034)
[2022-02-15 11:40] LABS: Troponin I 0.081 ng/mL (0.000-0.034)
--- NOTE | 2022-02-15 12:15 | PC.NURSE ---
informed daughter Annalee Mcelroy of dc plan pt to go home by ems family agreeable to this plan
== END 2022-02-15 12:31 | disposition home or self-care (01) ==
PROVIDERS: Emergency Medicine; Emergency Provider Emergency Medicine; PCP Emergency Medicine
DX: I48.19 Other persistent atrial fibrillation (principal); J44.9 Chronic obstructive pulmonary disease, unspecified; J96.11 Chronic respiratory failure with hypoxia; E11.42 Type 2 diabetes mellitus with diabetic polyneuropathy; I50.30 Unspecified diastolic (congestive) heart failure; I11.0 Hypertensive heart disease with heart failure; E78.2 Mixed hyperlipidemia; I27.20 Pulmonary hypertension, unspecified; K21.9 Gastro-esophageal reflux disease without esophagitis; K58.9 Irritable bowel syndrome, unspecified; M19.90 Unspecified osteoarthritis, unspecified site; Z99.81 Dependence on supplemental oxygen; Z86.14 Personal history of Methicillin resistant Staphylococcus aureus infection; Z98.42 Cataract extraction status, left eye; Z98.41 Cataract extraction status, right eye; Z89.512 Acquired absence of left leg below knee; R94.31 Abnormal electrocardiogram [ECG] [EKG]; I51.7 Cardiomegaly; Z79.82 Long term (current) use of aspirin
CPT/HCPCS: 36415; 71045; 80053; 83880; 84443; 84484; 85025; 93005; 99284; A9270

== ENCOUNTER 2022-03-07 13:09 | Emergency (ER) | payer OTHER, MEDICAID, SELFPAY ==
--- NOTE | ~2022-03-07 | XR_ITS ---
EXAMINATION: XR chest 2V Exam Date/Time: 03/07/2022 13:35 CDT CLINICAL HISTORY: weakness Comparison: 02/15/2022.. RESULT: Lines, tubes, and devices: None. Lungs and pleura: Left lower lung scarring, otherwise clear. Cardiomediastinal silhouette: Stable cardiomediastinal silhouette. Other: No acute osseous or upper abdominal finding. IMPRESSION: No acute cardiopulmonary process Reviewed, dictated and finalized at location K.
[2022-03-07 13:06] VITALS: BP 156/92; PULSE 97; RESP 22; O2SAT 98
--- NOTE | 2022-03-07 13:19 | ECG_ITS ---
Measurements Intervals [place] Rate: 90 P: DE: 0 QRS: 0 QRSD: 84 T: 73 QT: 339 QTc: 416 Interpretive Statements ATRIAL FIBRILLATION LOW QRS VOLTAGE- DIFFUSE LEADS ANTEROSEPTAL INFARCT, AGE INDETERMINATE BORDERLINE ST-T WAVE ABNORMALITY- HIGH LATERAL LEADS BASELINE ARTIFACT- II, III, AVL, AVF ABNORMAL ECG Electronically Signed On 03-07-2022 13:55:34 CDT by Yahir Lopez D.O.
[2022-03-07 13:27] LABS: Basophils Percent Auto 0.6 % (0.2-1.2); Eosinophils Percent Auto 0.7 % (0-4.4); Hematocrit 42.4 % (42.0-52.0); Hemoglobin 13.2 g/dL (14.0-18.0); Immature Granulocyte Absolute 0.05 K/mm3 (0.00-0.031); Immature Granulocyte Percent A 0.9 % (0-0.5); Lymphocytes Absolute Auto 0.93 K/mm3 (0.9-3.2); Lymphocytes Percent Auto 17.1 % (18.3-44.2); Mean Corpuscular HGB Conc 31.1 g/dl (32-36); Mean Corpuscular Volume 86.9 fl (80-100); Mean Platelet Volume 8.2 fl (7.4-10.4); Monocytes Absolute Auto 0.6 K/mm3 (0.1-0.6); Monocytes Percent Auto 10.6 % (2.6-8.5); Neutrophils Absolute Auto 3.8 K/mm3 (1.3-6.7); Neutrophils Percent Auto 70.1 % (45.5-73.1); Platelet Count Result 228 k/mm3 (150-375); Red Blood Count 4.88 M/mm3 (4.6-6.20); Red Cell Distribution Width 15.6 % (11.5-14.5); White Blood Count 5.5 K/mm3 (4.5-10.0)
[2022-03-07 13:43] LABS: Alanine Aminotransferase 19 U/L (6-50); Alkaline Phosphatase 127 U/L (38-126); Anion Gap 13 mmol/L (8-16); Aspartate Amino Transferase 47 U/L (17-59); Bilirubin,Total 0.2 mg/dL (0.2-1.3); Blood Urea Nitrogen 11 mg/dL (9-20); Calcium 8.2 mg/dL (8.4-10.2); Carbon Dioxide 21 mmol/L (22-30); Chloride 103 mmol/L (98-107); Estimated CRCL calculation 62 ml/min; Estimated Glomerular Filt Rate > 60; Glucose 83 mg/dL (65-110); Potassium 4.1 mmol/L (3.4-5.0); Sodium 137 mmol/L (137-145)
[2022-03-07 14:04] LABS: Appearance Urine Clear (Clear); Bilirubin Urine Negative (Negative); Color Urine Yellow (Yellow); Glucose Urine UA Negative (Negative); Ketones Urine Trace mg/dL (Negative); Leukocyte Esterase Ur Negative LEU/UL (Negative); Nitrate Urine Negative (Negative); Protein Urine 3+ mg/dL (Negative); Specific Grav Ur 1.025 (1.001-1.035); pH Urine 6.5 (5.0-9.0)
[2022-03-07 14:05] LABS: Add Urine Microscopic? YES; Blood Urine Trace-Intact (Negative)
[2022-03-07 14:07] LABS: Mucus Urine Rare /lpf; RBC Urine 0-2 /hpf (0-2); WBC Urine 0-3 /hpf
--- NOTE | 2022-03-07 14:42 | ED.WEAKNESS ---
HPI - Weakness General Chief complaint: Weakness Stated complaint: Failure to Thrive Time Seen by Provider: 03/07/22 14:31 Source: patient Mode of arrival: EMS Limitations: no limitations History of Present Illness HPI Narrative: Pt presents with generalized weakness and inability to care for self at home. Pt says he is chronically SOB and this hasn't changes and he hurst all over but this is unchanged. Complaint: generalized weakness Onset (ago): month(s) Duration: constant Location: generalized Migration: none Severity: severe Associated symptoms: denies other symptoms Related Data Home Medications Medication Instructions Recorded Confirmed acetaminophen 1,000 mg PO Q6-8H PRN 12/02/20 12/29/21 aspirin 325 mg PO DAILY 12/02/20 12/29/21 folic acid 1 mg PO DAILY 12/02/20 12/29/21 gabapentin 100 mg PO TID 11/06/21 12/29/21 duloxetine 20 mg capsule,delayed 20 mg PO DAILY cap 02/12/22 release omeprazole 40 mg capsule,delayed 40 mg PO DAILY 02/12/22 release sucralfate 1 gram tablet PO TID tablet 02/12/22 Allergies Allergy/AdvReac Type Severity Reaction Status Date / Time niacin Allergy Intermediate Rash/itchin Verified 02/15/22 04:53 g hydrocodone [From [place]] AdvReac Confusion Verified 02/15/22 04:53 Review of Systems Review of Systems: All systems reviewed & are unremarkable except as noted in HPI and below PMFSH Past Medical History Medical History Alcohol abuse History of alcohol abuse though he has cut back significantly in the last 6 months or so. Now drinking a couple of beers 5 days a week. Anxiety Asthma Benign prostatic hyperplasia Cerebrovascular accident Chronic abscess of lower leg Chronic anemia Chronic hyponatremia Chronic obstructive pulmonary disease Chronic respiratory failure with hypoxia, on home O2 therapy Depression Diabetic foot ulcer Diabetic peripheral neuropathy Diastolic congestive heart failure Former smoker Gastroesophageal reflux disease Hearing loss Hypertension Ichthyosis vulgaris Irritable bowel syndrome Mixed hyperlipidemia MRSA (methicillin resistant Staphylococcus aureus) septicemia (09/2020) Osteoarthritis Osteomyelitis History of osteomyelitis of both feet requiring multiple amputations. Pancreatitis (03/2021) Persistent atrial fibrillation Not on long-term anticoagulation. Takes aspirin 325 mg daily. Pulmonary hypertension Echocardiogram on 06/08/2021 showed normal left ventricular systolic function with an EF estimated 65 to 70%, mildly increased LV wall thickness, severely enlarged right atrial chamber, mildly enlarged left atrial chamber, mild mitral valve and trace tricuspid valve regurgitation, and mild pulmonary hypertension with an estimated pulmonary arterial systolic pressure of 35 mmHg. Sacrum and coccyx fracture Type 2 diabetes mellitus Hemoglobin A1c was 6.6% on 06/09/2021. Surgical History Surgical History History of bilateral cataract extraction History of incision and drainage Right hip abscess. 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 He gets Meals on Wheels. He is and has 7 children, 3 that live close by. 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 Smoked a pack of cigarettes per day for 58 years
--- NOTE | 2022-03-07 16:44 | PCCCNOTE ---
Called to ED to meet with patient as patient states that he is unable to take care of himself. PT/OT [facility], recommending home health therapy. Patient still thinking that he wants to go to a facility. Discussed longterm bed with patient, patient declines to pursue since he does not want to give up his social security check, states that he worked for that money and he wants to keep it. Patient does receive Meals on Wheels and has a child day care center worker through [employer] for 11 hours per week. Discussed with patient about calling [employer] for increased hours. Patient verbalizes understanding. Patient is agreeable to home health therapy. Called to [facility] spoke with Adrianna who states that they are not able to accept as he is not appropriate for home health. Called to [facility] left a VM with intake for a return call. Called to [facility] spoke with Moira, he accepted for first available Saturday for PT. Faxed referral to [phone] as requested. Advised to patient that [facility] will contact for PT at home and to call them if they do not contact him the phone number will be on his discharge papers.
--- NOTE | 2022-03-07 17:10 | PCCCNOTE ---
Provided resources of half-way facilities that have intermediate/Medicaid beds if patient decides that he needs penitentiary care and willing to have check/income to go to the facility. Also provided patient with phone number for [employer] and encouraged to contact to see if he would quality for additional choreworker hours or services. Patient verbalized understanding.
--- NOTE | 2022-03-07 17:32 | PC.NURSE ---
spoke with patient's daughter, nery, discharge information given in regards to calling to set up for home health assistance. she states she will try to come pick him up today, if she can not, she states she will attempt to get ahold of her sisters.
--- NOTE | 2022-03-10 15:13 | PCCCNOTE ---
MARTINE received from Kajal at [facility] 03/09/22 at 1136, MARTINE states that they cannot accept the referral since they are no longer in network with [facility]. Noman is still showing [facility] participating with [facility]. Faxed referral to [facility] and [facility].
== END 2022-03-07 19:31 | disposition home or self-care (01) ==
PROVIDERS: Emergency Provider Emergency Medicine; PCP Emergency Medicine
DX: R53.1 Weakness (principal); I48.19 Other persistent atrial fibrillation; J44.9 Chronic obstructive pulmonary disease, unspecified; J96.11 Chronic respiratory failure with hypoxia; E11.42 Type 2 diabetes mellitus with diabetic polyneuropathy; I50.30 Unspecified diastolic (congestive) heart failure; I11.0 Hypertensive heart disease with heart failure; D64.9 Anemia, unspecified; E87.1 Hypo-osmolality and hyponatremia; N40.0 Benign prostatic hyperplasia without lower urinary tract symptoms; E78.2 Mixed hyperlipidemia; K58.9 Irritable bowel syndrome, unspecified; K21.9 Gastro-esophageal reflux disease without esophagitis; M19.90 Unspecified osteoarthritis, unspecified site; Z99.81 Dependence on supplemental oxygen; Z86.14 Personal history of Methicillin resistant Staphylococcus aureus infection; I27.20 Pulmonary hypertension, unspecified; F41.9 Anxiety disorder, unspecified; F32.A Depression, unspecified; Z98.42 Cataract extraction status, left eye; Z98.41 Cataract extraction status, right eye; Z96.641 Presence of right artificial hip joint; Z89.512 Acquired absence of left leg below knee; Z89.431 Acquired absence of right foot; Z87.891 Personal history of nicotine dependence; Z79.82 Long term (current) use of aspirin; R94.31 Abnormal electrocardiogram [ECG] [EKG]
CPT/HCPCS: 36415; 71046; 80053; 81001; 85025; 93005; 97161; 97165; 99283

== ENCOUNTER 2022-03-18 22:09 | Inpatient (IN) | payer OTHER, MEDICAID, SELFPAY ==
[2022-03-18] VITALS (14 sets, daily range): BP systolic 99–125; BP diastolic 49–65; PULSE 37–90; RESP 17–25; TEMP 35.6; O2SAT 95–100
--- NOTE | ~2022-03-18 | XR_ITS ---
EXAMINATION: XR chest 1V portable DATE: 03/18/2022 22:49 INDICATION: Dyspnea. TECHNIQUE: A single frontal view of the chest was obtained on 2 radiographs. COMPARISON: Chest 2 views 03/07/2022, CT abdomen and pelvis 04/18/2021 FINDINGS: There is mild atelectasis in the lower lung zones. No pleural effusion or pneumothorax. Car diomegaly is noted. IMPRESSION: 1. Mild atelectasis in the lower lung zones. 2. Cardiomegaly. Reviewed, dictated and finalized at location A.
--- NOTE | ~2022-03-18 | XR_ITS ---
EXAMINATION: XR barium swallow modified DATE: 03/23/2022 10:06 INDICATION: Dysphagia. TECHNIQUE: The patient was given barium-containing material of multiple consistencies to swallow by t he speech pathologist while I performed fluoroscopy. Fluoroscopy exposure time was 2.7 minutes. The n umber of fluoroscopy images saved to the PACS was 1. Dose-area product was 1.7 Gy-cm^2. FINDINGS: There was reduced lingual movement, reduced laryngeal elevation, reduced laryngeal adduction, reduced tongue base retraction, vallecular residue, laryngeal penetration, and aspiration. IMPRESSION: 1. Laryngeal penetration and aspiration. 2. Please refer to the speech therapy report for recommendations. Reviewed, dictated and finalized at location A.
--- NOTE | ~2022-03-18 | US_ITS ---
EXAMINATION: US renal BI DATE: 03/19/2022 10:54 INDICATION: Acute kidney injury. TECHNIQUE: Multiple ultrasound grayscale images of the kidneys were obtained. COMPARISON: CT abdomen and pelvis 04/18/2021 FINDINGS: The right kidney measures 10.2 x 4.6 x 5.2 cm. The left kidney measures 11.7 x 5.4 x 5.7 cm. The kidn eys demonstrate normal parenchymal echogenicity. There is no hydronephrosis. The bladder is normal. IMPRESSION: 1. Normal kidneys. No hydronephrosis. Reviewed, dictated and finalized at location A.
--- NOTE | 2022-03-18 22:24 | ECG_ITS ---
Measurements Intervals [place] Rate: 44 P: ID: 0 QRS: 59 QRSD: 89 T: 54 QT: 470 QTc: 404 Interpretive Statements ATRIAL FIBRILLATION WITH SLOW VENTRICULAR RESPONSE LOW QRS VOLTAGE- DIFFUSE LEADS ANTEROSEPTAL INFARCT, AGE INDETERMINATE ABNORMAL ECG Electronically Signed On 03-19-2022 5:44:13 CDT by Yahir Lopez D.O.
[2022-03-18] MEDS: SODIUM CHLORIDE 0.9% IV 500 ML 999 ML IV CONT ×2 (22:41→23:52)
[2022-03-18] MEDS: ATROPINE SULFATE 1 MG/10 ML SYRINGE IV PUSH (22:41)
[2022-03-18 22:46] LABS: Basophils Percent Auto 0.3 % (0.2-1.2); Eosinophils Absolute Auto 0.1 K/mm3 (0-0.3); Eosinophils Percent Auto 1.1 % (0-4.4); Hematocrit 38.7 % (42.0-52.0); Hemoglobin 11.9 g/dL (14.0-18.0); Immature Granulocyte Absolute 0.04 K/mm3 (0.00-0.031); Immature Granulocyte Percent A 0.5 % (0-0.5); Lymphocytes Absolute Auto 1.03 K/mm3 (0.9-3.2); Lymphocytes Percent Auto 12.9 % (18.3-44.2); Mean Corpuscular HGB Conc 30.7 g/dl (32-36); Mean Corpuscular Hemoglobin 26.9 pg (26-34); Mean Corpuscular Volume 87.6 fl (80-100); Mean Platelet Volume 9.8 fl (7.4-10.4); Monocytes Absolute Auto 0.4 K/mm3 (0.1-0.6); Monocytes Percent Auto 5.5 % (2.6-8.5); Neutrophils Absolute Auto 6.4 K/mm3 (1.3-6.7); Neutrophils Percent Auto 79.7 % (45.5-73.1); Platelet Count Result 147 k/mm3 (150-375); Red Blood Count 4.42 M/mm3 (4.6-6.20); Red Cell Distribution Width 14.9 % (11.5-14.5)
[2022-03-18] MEDS: IPRATROPIUM BR 0.02% INH SOLN 0.5 MG/2.5 ML VIAL INHALATION (22:52)
[2022-03-18] MEDS: ALBUTEROL SULFATE NEB 2.5 MG/3 ML INH 5 MG INHALATION (22:52)
[2022-03-18 22:55] LABS: Glucose Point of Care 103 mg/dl (65-105)
[2022-03-18 22:56] LABS: Alanine Aminotransferase 24 U/L (6-50); Albumin Level 3.9 g/dL (3.5-5.1); Alkaline Phosphatase 159 U/L (38-126); Anion Gap 8 mmol/L (8-16); Aspartate Amino Transferase 66 U/L (17-59); Bilirubin,Total 0.3 mg/dL (0.2-1.3); Blood Urea Nitrogen 26 mg/dL (9-20); Calcium 7.7 mg/dL (8.4-10.2); Carbon Dioxide 23 mmol/L (22-30); Chloride 90 mmol/L (98-107); Estimated CRCL calculation 32 ml/min; Estimated Glomerular Filt Rate 33; Ethanol 256 mg/dL (<10); Glucose 100 mg/dL (65-110); Lactic Acid Reflex 1.9 mmol/L (0.7-2.0); Magnesium 2.3 mg/dL (1.6-2.3); Potassium 5.7 mmol/L (3.4-5.0); Sodium 121 mmol/L (137-145)
[2022-03-18 22:57] LABS: INR 1.1; Prothrombin Time 13.6 Seconds (11.1-14.7)
[2022-03-18 22:57] LABS: Alveolar/Arterial O2 Gradient 150.4 mmHg; Base Excess ABG -5.9 mEq/l (+/-2.0); HCO3 ABG 21.8 mEq/l (22.0-26.0); Oxygen Content ABG 16.1 %vol (16.0-22.0); Oxygen Saturation ABG 92.4 % (95.0-100.0); Oxyhemoglobin 91.8 % THb (90.0-100.0); PCO2 ABG 52.2 mmHg (35.0-45.0); PO2 ABG 74.8 mmHg (80.0-100.0); PO2 FiO2 Ratio Arterial Blood 1.87 %; Total Hemoglobin 12.4 g/dL (12.0-18.0)
[2022-03-18 22:58] LABS: Device NASAL CANNULA; Modified Allen's Test Pass; Site Drawn RIGHT RADIAL; pH ABG 7.238 (7.350-7.450)
[2022-03-18 22:59] LABS: Fractional Inspired Oxygen 36 %
[2022-03-18 23:02] LABS: Beta-Hydroxybutyrate/Acetoacetate 0.53 mmol/L (0.02-0.27)
--- NOTE | 2022-03-18 23:07 | PC.NURSE ---
Bed alarm under patient.
[2022-03-18 23:09] LABS: NT Pro B Type Natriuretic Pept 2400 pg/mL (5-100); Troponin I 0.121 ng/mL (0.000-0.034)
[2022-03-18] MEDS: IPRATROPIUM BR 0.02% INH SOLN 0.5 MG/2.5 ML VIAL 1 MG INHALATION (23:09)
[2022-03-18] MEDS: ALBUTEROL SULFATE NEB 2.5 MG/3 ML INH 10 MG INHALATION (23:09)
[2022-03-18] MEDS: methylPREDNISolone SOD SUCC 125 MG VIAL IV PUSH (23:10)
[2022-03-18] MEDS: FUROSEMIDE INJ 40 MG/4 ML VIAL IV PUSH (23:22)
[2022-03-18 23:59] LABS: Appearance Urine Clear (Clear); Bilirubin Urine 1+ (Negative); Blood Urine Negative (Negative); Color Urine Yellow (Yellow); Glucose Urine UA Negative (Negative); Ketones Urine Negative (Negative); Leukocyte Esterase Ur Negative LEU/UL (Negative); Nitrate Urine Negative (Negative); Protein Urine 2+ mg/dL (Negative); Urobilinogen Urine 0.2 mg/dL (<2.0); pH Urine 5.5 (5.0-9.0)
[2022-03-19] VITALS (37 sets, daily range): BP systolic 92–139; BP diastolic 46–79; PULSE 65–99; RESP 14–31; TEMP 34.4–37.5; O2SAT 90–100; BMI 25.4
[2022-03-19 00:03] LABS: Add Urine Microscopic? YES; Bacteria Urine Trace /hpf; Hyaline Casts Urine 20-29 /lpf; Mucus Urine Rare /lpf; RBC Urine 0-2 /hpf (0-2); Squamous Epithelial Cell Urine Rare /hpf (Few); WBC Urine 0-3 /hpf
[2022-03-19 00:13] LABS: Alveolar/Arterial O2 Gradient 226.6 mmHg; Base Excess ABG -7.4 mEq/l (+/-2.0); Fractional Inspired Oxygen 50 %; HCO3 ABG 20.9 mEq/l (22.0-26.0); Oxygen Content ABG 15.7 %vol (16.0-22.0); Oxygen Saturation ABG 89.5 % (95.0-100.0); Oxyhemoglobin 89.8 % THb (90.0-100.0); PCO2 ABG 54.2 mmHg (35.0-45.0); PO2 ABG 68.9 mmHg (80.0-100.0); PO2 FiO2 Ratio Arterial Blood 1.38 %; Total Hemoglobin 12.4 g/dL (12.0-18.0)
[2022-03-19 00:14] LABS: Device OTHER DEVICE; Modified Allen's Test Pass; Site Drawn RIGHT RADIAL; pH ABG 7.203 (7.350-7.450)
--- NOTE | 2022-03-19 00:14 | PC.NURSE ---
Patients daughter Annetta calls to get update on patient status.
[2022-03-19 00:16] LABS: Amphetamine Screen Urine Negative (Negative); Barbiturate Screen Urine Negative (Negative); Benzodiazepines Screen Urine Negative (Negative); Cannabinoid Screen Urine Negative (Negative); Cocaine Screen Urine Negative (Negative); Methadone Screen Urine Negative (Negative); Opiate Screen Urine Negative (Negative); Phencyclidine Screen Urine Negative (Negative)
[2022-03-19] MEDS: ONDANSETRON INJ 4 MG/2 ML VIAL IV PUSH (00:20)
--- NOTE | 2022-03-19 00:33 | ED.GENADULT ---
HPI - General Adult General Chief complaint: Unspecified Stated complaint: drinking all day not feeling well Time Seen by Provider: 03/18/22 22:16 Source: patient History of Present Illness HPI narrative: Patient presents with shortness of breath. Patient ports been feeling short of breath for the past week and finally decided to call EMS. He also reports he has been drinking all day and does not feel well. Voices been drinking because he is an alcoholic. Reports increased cough over the duration of shortness of breath denies fevers or congestion. Reports neck and back pain since laying on the hospital bed denies any chest pain abdominal pain nausea vomiting or diarrhea. Related Data Home Medications Medication Instructions Recorded Confirmed acetaminophen 1,000 mg PO Q6-8H PRN 12/02/20 12/29/21 aspirin 325 mg PO DAILY 12/02/20 12/29/21 folic acid 1 mg PO DAILY 12/02/20 12/29/21 gabapentin 100 mg PO TID 11/06/21 12/29/21 duloxetine 20 mg capsule,delayed 20 mg PO DAILY cap 02/12/22 release omeprazole 40 mg capsule,delayed 40 mg PO DAILY 02/12/22 release sucralfate 1 gram tablet PO TID tablet 02/12/22 Allergies Allergy/AdvReac Type Severity Reaction Status Date / Time niacin Allergy Intermediate Rash/itchin Verified 03/18/22 22:20 g hydrocodone [From [place]] AdvReac Confusion Verified 03/18/22 22:20 Review of Systems Review of Systems: CONSTITUTIONAL: Denies fever, chills, or sweats. EYES: Denies visual changes, redness, or discharge. ENT: Denies rhinorrhea, congestion, sore throat, or otalgia. CARDIOVASCULAR: Denies chest pain, palpitations, or edema. RESPIRATORY: Reports shortness of breath and cough GASTROINTESTINAL: Denies abdominal pain, nausea, vomiting, or diarrhea. GENITOURINARY: Denies dysuria or hematuria. SKIN: Denies rash or itching. MUSCULOSKELETAL: Denies joint pain, or myalgia. NEUROLOGIC: Denies headache, numbness, dizziness, or weakness. PSYCHIATRIC: Denies anxiety or depression. All systems reviewed & are unremarkable except as noted in HPI and below PMFSH Past Medical History Medical History Alcohol abuse History of alcohol abuse though he has cut back significantly in the last 6 months or so. Now drinking a couple of beers 5 days a week. Anxiety Asthma Benign prostatic hyperplasia Cerebrovascular accident Chronic abscess of lower leg Chronic anemia Chronic hyponatremia Chronic obstructive pulmonary disease Chronic respiratory failure with hypoxia, on home O2 therapy Depression Diabetic foot ulcer Diabetic peripheral neuropathy Diastolic congestive heart failure Former smoker Gastroesophageal reflux disease Hearing loss Hypertension Ichthyosis vulgaris Irritable bowel syndrome Mixed hyperlipidemia MRSA (methicillin resistant Staphylococcus aureus) septicemia (09/2020) Osteoarthritis Osteomyelitis History of osteomyelitis of both feet requiring multiple amputations. Pancreatitis (03/2021) Persistent atrial fibrillation Not on long-term anticoagulation. Takes aspirin 325 mg daily. Pulmonary hypertension Echocardiogram on 06/08/2021 showed normal left ventricular systolic function with an EF estimated 65 to 70%, mildly increased LV wall thickness, severely enlarged right atrial chamber, mildly enlarged left atrial chamber, mild mitral valve and trace tricuspid valve regurgitation, and mild pulmonary hypertension with an estimated pulmonary arterial systolic pressure of 35 mmHg. Sacrum and coccyx fracture Type 2 diabetes mellitus Hemoglobin A1c was 6.6% on 06/09/2021. Surgical History Surgical History History of bilateral cataract extraction History of incision and drainage Right hip abscess. 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 Heaton History of tonsillectomy History of total right hip arthroplasty (2002) History of transmetatarsal ampu
--- NOTE | 2022-03-19 00:38 | ECG_ITS ---
Measurements Intervals [place] Rate: 88 P: GA: 0 QRS: 54 QRSD: 82 T: 86 QT: 356 QTc: 432 Interpretive Statements ATRIAL FIBRILLATION LOW QRS VOLTAGE- DIFFUSE LEADS ANTEROSEPTAL INFARCT, AGE INDETERMINATE BASELINE ARTIFACT- I, II, AVR, V1 ABNORMAL ECG Electronically Signed On 03-19-2022 5:44:48 CDT by Yahir Lopez D.O.
[2022-03-19] MEDS: CALCIUM GLUCONATE 1,000 MG/10 ML VIAL 1000 MG IV PUSH (00:46)
--- NOTE | 2022-03-19 00:55 | PC.NURSE ---
Contacted Annetta, patients daughter. Gave update on patient admission status.
[2022-03-19] MEDS: SODIUM ZIRCONIUM CYCLOSILICATE 10 GM POWD.PACK PO (01:37)
[2022-03-19 01:46] LABS: SARS-CoV-2 RNA PCR Negative
--- NOTE | 2022-03-19 02:06 | PC.NURSE ---
SBAR faxed to [facility] for [phone]*.
--- NOTE | 2022-03-19 02:19 | PC.NURSE ---
Called patients daughter Annetta to update on room number, no answer, message left.
[2022-03-19] MEDS: IPRATROPIUM BR 0.02% INH SOLN 0.5 MG/2.5 ML VIAL INHALATION ×4 (02:25→20:42)
[2022-03-19] MEDS: ALBUTEROL SULFATE NEB 2.5 MG/3 ML INH 5 MG INHALATION ×2 (02:25→20:42)
--- NOTE | 2022-03-19 02:59 | PC.NURSE ---
This patient, Ludin Mcguire, was admitted to IMU Room 203-01 on 03/19/22 at 0235. Patient oriented to hospital policies and general routines including ID bracelet, bed and alarms, visiting hours, pain management, procedures, bathroom and other care routines, personal items, smoking policy, room service/diet, and visiting hours. Information on how to activate the Rapid Response Team has been discussed. Patient is encouraged to report perceived risks to care and to ask questions if they do not understand what they are told or what they should do.
--- NOTE | 2022-03-19 04:38 | PM.IMHP ---
H&P: HPI History of Present Illness Date/Time: 03/19/22 04:38 Chief Complaint: Shortness of breath. Narrative: This is a 76-year-old male with past medical history significant for COPD/emphysema on chronic supplemental oxygen at home, chronic elevation of troponins, alcoholism, gastroesophageal reflux disease, depression, dyslipidemia. Patient presents to the emergency room stating that he had been drinking all the and he is not feeling well at the time of my visit patient was on BiPAP making history taking difficult. Most of the history has been obtained upon reviewing medical records and discussion with emergency room doctor. Patient had an oxygen saturation that was in the high 80s to low 90s and an ABG showed pH of 7.2, pCO2 of 52, PO2 of 68, sodium 129, potassium 5.7, creatinine of 2, brain natriuretic peptide 2400,. Patient has been placed on BiPAP. Patient has been admitted for further evaluation, management and treatment. Review of Systems Review of Systems: ROS unobtainable: Yes unobtainable due to medical condition (On BiPAP) [facility] Past Medical History Medical History Alcohol abuse History of alcohol abuse though he has cut back significantly in the last 6 months or so. Now drinking a couple of beers 5 days a week. Anxiety Asthma Benign prostatic hyperplasia Cerebrovascular accident Chronic abscess of lower leg Chronic anemia Chronic hyponatremia Chronic obstructive pulmonary disease Chronic respiratory failure with hypoxia, on home O2 therapy Depression Diabetic foot ulcer Diabetic peripheral neuropathy Diastolic congestive heart failure Former smoker Gastroesophageal reflux disease Hearing loss Hypertension Ichthyosis vulgaris Irritable bowel syndrome Mixed hyperlipidemia MRSA (methicillin resistant Staphylococcus aureus) septicemia (09/2020) Osteoarthritis Osteomyelitis History of osteomyelitis of both feet requiring multiple amputations. Pancreatitis (03/2021) Persistent atrial fibrillation Not on long-term anticoagulation. Takes aspirin 325 mg daily. Pulmonary hypertension Echocardiogram on 06/08/2021 showed normal left ventricular systolic function with an EF estimated 65 to 70%, mildly increased LV wall thickness, severely enlarged right atrial chamber, mildly enlarged left atrial chamber, mild mitral valve and trace tricuspid valve regurgitation, and mild pulmonary hypertension with an estimated pulmonary arterial systolic pressure of 35 mmHg. Sacrum and coccyx fracture Type 2 diabetes mellitus Hemoglobin A1c was 6.6% on 06/09/2021. Surgical History Surgical History History of bilateral cataract extraction History of incision and drainage Right hip abscess. 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 He gets Meals on Wheels. He is and has 7 children, 3 that live close by. 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 Smoked a pack of cigarettes per day for 58 years and quit in December of 2018. He has a history of alcohol abuse although he says he is not drinking much anymore, 2 beers perhaps 5 nights a week at the most. No illicit substance use though he used marijuana previously. He designates his daughter, Adwoa Xiong, as his surrogate decision maker and he wishes to be a full code
[2022-03-19 05:11] LABS: Glucose Point of Care 126 mg/dl (65-105)
[2022-03-19 05:55] LABS: Hematocrit 37.1 % (42.0-52.0); Hemoglobin 11.1 g/dL (14.0-18.0); Immature Granulocyte Absolute 0.06 K/mm3 (0.00-0.031); Lymphocytes Absolute Auto 0.16 K/mm3 (0.9-3.2); Lymphocytes Percent Auto 2.6 % (18.3-44.2); Mean Corpuscular HGB Conc 29.9 g/dl (32-36); Mean Corpuscular Hemoglobin 26.7 pg (26-34); Mean Corpuscular Volume 89.2 fl (80-100); Mean Platelet Volume 9.7 fl (7.4-10.4); Monocytes Percent Auto 0.7 % (2.6-8.5); Neutrophils Absolute Auto 5.9 K/mm3 (1.3-6.7); Neutrophils Percent Auto 95.7 % (45.5-73.1); Platelet Count Result 119 k/mm3 (150-375); Red Blood Count 4.16 M/mm3 (4.6-6.20); Red Cell Distribution Width 14.7 % (11.5-14.5); White Blood Count 6.1 K/mm3 (4.5-10.0)
[2022-03-19 06:07] LABS: Anion Gap 19 mmol/L (8-16); Blood Urea Nitrogen 24 mg/dL (9-20); Calcium 7.8 mg/dL (8.4-10.2); Carbon Dioxide 16 mmol/L (22-30); Chloride 93 mmol/L (98-107); Estimated CRCL calculation 35 ml/min; Estimated Glomerular Filt Rate 37; Glucose 125 mg/dL (65-110); Magnesium 2.1 mg/dL (1.6-2.3); Phosphorus 6.7 mg/dL (2.5-4.5); Potassium 4.1 mmol/L (3.4-5.0); Sodium 128 mmol/L (137-145)
[2022-03-19] MEDS: methylPREDNISolone SOD SUCC 125 MG VIAL 60 MG IV PUSH ×4 (06:28→23:32)
--- NOTE | 2022-03-19 06:41 | PC.NURSE ---
Order to insert Echols catheter, however, the patient is refusing the catheter at this time. Dr. Bland notified and aware.
[2022-03-19] MEDS: ALBUTEROL SULFATE NEB 2.5 MG/0.5 ML INH 5 MG ×2 (07:45→13:59)
[2022-03-19 07:46] LABS: Alveolar/Arterial O2 Gradient 162.4 mmHg; Base Excess ABG -11.6 mEq/l (+/-2.0); Fractional Inspired Oxygen 45 %; HCO3 ABG 15.5 mEq/l (22.0-26.0); Oxygen Content ABG 16.4 %vol (16.0-22.0); Oxygen Saturation ABG 97.3 % (95.0-100.0); Oxyhemoglobin 96.8 % THb (90.0-100.0); PCO2 ABG 39.3 mmHg (35.0-45.0); PO2 ABG 113.8 mmHg (80.0-100.0); PO2 FiO2 Ratio Arterial Blood 2.53 %; Total Hemoglobin 11.9 g/dL (12.0-18.0)
[2022-03-19 07:48] LABS: Device NON-INVASIVE VENT; Modified Allen's Test Pass; Site Drawn RIGHT RADIAL; pH ABG 7.214 (7.350-7.450)
[2022-03-19 07:49] LABS: Non-Invasive Expiratory Pressure 5 CMH2O; Non-Invasive Inspiratory Pressure 10 CMH2O; Non-Invasive Vent Rate 16 /MIN
[2022-03-19] MEDS: HEPARIN SODIUM 5,000 UNITS/ML VIAL 5000 UNITS SUB-Q ×2 (09:10→20:29)
[2022-03-19] MEDS: SODIUM CHLORIDE 500 MG TABLET PO ×2 (09:10→17:10)
[2022-03-19 09:46] LABS: Lactic Acid Reflex 7.7 mmol/L (0.7-2.0)
[2022-03-19] MEDS: SODIUM BICARBONATE 8.4% 100 MEQ in DEXTROSE 5% 1,000 ML 1,000 ML 50 MEQ IV CONT (10:26)
--- NOTE | 2022-03-19 11:55 | PM.IMPN ---
Progress Note: A&P Assessment and Plan (1) Acute on chronic respiratory failure with hypoxia and hypercapnia: Code(s): J96.21 - Acute and chronic respiratory failure with hypoxia; J96.22 - Acute and chronic respiratory failure with hypercapnia Status: Acute Assessment and Plan: Appears to be breathing better. Now on supplemental oxygen. Respiratory component of Acid-base appears to be improved. (2) Acute hyponatremia: Code(s): E87.1 - Hypo-osmolality and hyponatremia Status: Acute Assessment and Plan: Hypervolemic hypo natremia Will diurese (3) Acute kidney injury: Code(s): N17.9 - Acute kidney failure, unspecified Status: Acute Assessment and Plan: Likely to be cardiorenal syndrome Continue to monitor BUN and creatinine Nephrology consult. (4) Acute hyperkalemia: Code(s): E87.5 - Hyperkalemia Status: Acute Assessment and Plan: Monitor (5) Alcohol abuse: Code(s): F10.10 - Alcohol abuse, uncomplicated Status: Acute Assessment and Plan: CIWA protocol as needed (6) COPD exacerbation: Code(s): J44.1 - Chronic obstructive pulmonary disease with (acute) exacerbation Status: Chronic Assessment and Plan: Improved. Continue respiratory treatments. (7) Type 2 diabetes mellitus: Qualifiers: Diabetes mellitus intermediate accountant insulin use: without intermediate accountant use Diabetes mellitus complication detail: with foot ulcer Code(s): E11.9 - Type 2 diabetes mellitus without complications Status: Chronic Assessment and Plan: Diet controlled Blood sugars controlled (8) Elevated troponin: Code(s): R77.8 - Other specified abnormalities of plasma proteins Status: Acute Assessment and Plan: Cardiology consult (9) Amputation of left lower extremity below knee: Code(s): S88.112A - Complete traumatic amputation at level between knee and ankle, left lower leg, initial encounter Status: Acute Assessment and Plan: Supportive care Fall precautions (10) Persistent atrial fibrillation: Code(s): I48.19 - Other persistent atrial fibrillation Status: Acute Assessment and Plan: Monitor (11) Smoker: Code(s): F17.200 - Nicotine dependence, unspecified, uncomplicated Status: Acute Assessment and Plan: Nicotine patch as needed (12) Lactic acid acidosis: Code(s): E87.2 - Acidosis Status: Acute Assessment and Plan: Elevated lactic acid likely multifactorial with dehydration, acute kidney injury. Patient does have any focal symptoms like abdominal pain or nausea vomiting or any blood in the stool. Cannot isolate any medications that would cause this. Bicarb drip started. Will have Nephrology evaluate the patient as well. Subjective Date/time seen: 03/19/22 11:55 Labs reviewed, patient does have lactic acidosis. Mildly acidotic on ABG. Reports that he feels better and he is breathing better. He is eating and drinking okay. Exam Narrative: Patient is laying in a stretcher. Const: General: cooperative, comfortable, well developed, alert, awake and acute distress mild Nutritional Appearance: thin Orientation/consciousness: patient oriented x3 HENMT: Head: normal to inspection, normocephalic and atraumatic Ears: hearing grossly normal bilaterally General nose exam: Normal external nose present Face and sinus: normal facial exam and other (BiPAP mask on) Eyes: General: appearance normal, both eyes and all related structures Alignment and Position: alignment normal Sclera: sclerae normal Pupils: Equal, round and reactive pupils present EOM: EOMs intact bilaterally Neck: Neck: normal visual inspection, full ROM, no lymphadenopathy, supple and no JVD Thyroid: thyroid normal Lymphatic: no lymphadenopathy noted Resp: Effort & Inspection: normal respiratory effort, able to speak in complete sentences and no cough
[2022-03-19 12:29] LABS: Reflex Lactic Acid Yes or No Add Lactic
--- NOTE | 2022-03-19 12:35 | PM.CNNEP ---
Assessment and Plan Assessment and plan (1) Acute kidney injury: Code(s): N17.9 - Acute kidney failure, unspecified Status: Acute Assessment and Plan: suspect prerenal factors + relative hypotension along with acute illness renal ultrasound noted urine electrolytes pending; check CPK hold diuretics for now and BP medications with parameters trial of gentle IVF follow repeat labs and UOP (2) Hyponatremia: Code(s): E87.1 - Hypo-osmolality and hyponatremia Status: Acute Assessment and Plan: probably related to poor oral intake (only drinking alcohol) and prerenal factors follow trend of sodium with IVFs follow-up on urine sodium, TSH, cortisol and serum/urine osmolality (3) Dyspnea: Qualifiers: Dyspnea type: unspecified Qualified Code(s): R06.00 - Dyspnea, unspecified Code(s): R06.00 - Dyspnea, unspecified Status: Acute Assessment and Plan: improvement noted since admission related to COPD, CHF, or both? follow respiratory status closely (4) Acidosis: Code(s): E87.2 - Acidosis Status: Acute Assessment and Plan: due to lactic acidosis attempting to compensate with bicarb gtt etiology of lactic acidosis -- may need further abdominal imaging... (5) Hyperkalemia: Code(s): E87.5 - Hyperkalemia Status: Resolved Assessment and Plan: resolved with medical management follow trend Will continue to follow. History of Present Illness Reason for Consult Consult date: 03/19/22 Reason for consult: acute renal failure Chief Complaint Chief complaint: Dyspnea History of Present Illness Narrative: Most of the information I have obtained for review the electronic medical record as well as discussion with other physicians involved in the care of this patient as the patient is a very poor historian. The patient is a 76-year-old male with a past medical history as outlined below who presented to [facility] Emergency room due to not feeling well. Apparently, the patient had been seen drinking alcohol all day prior to his presentation to the hospital ER. He was unable to elaborate why he had done this other than admitting that he was an alcoholic. Furthermore, it was difficult for the patient to elaborate what exactly his symptoms were that led to his presentation to the ER. Workup and evaluation emergency room demonstrated the patient to be hemodynamically stable but hypoxic. His oxygen saturations were in the high 80s to low 90s. I am unclear if he had any complaints of shortness of breath but his ABG demonstrated evidence of hypoxia and acidosis and by pack was applied an effort to compensate for these issues. Routine blood tests were significant for mild hyponatremia, mild hyperkalemia, creatinine of two, and elevated BNP. There were some concerns that this was either a COPD exacerbation versus a CHF exacerbation or combination of both. Subsequent testing also demonstrated a significant lactic acidosis as well although the etiology of this finding was not clear. Given the constellation of symptoms that led to his presentation to the hospital as well as his laboratory findings, he was admitted the hospital for further evaluation and therapy. Renal consultation was requested due to his acute kidney injury/acute renal failure in conjunction with his significant acidosis. From review of his records, the patient's kidney function has been in the normal range prior to his presentation to the hospital. However, on further review of his records, he has had elevated creatinine since a past arguing that perhaps maybe has some degree of renal insufficiency in spite of the fact that his creatinine is normal previously. perhaps his poor nutritional intake and diminished BMI makes his creatinine artificially low even though he has some degree of renal insufficiency at baseline. His sodium level has been f
[2022-03-19 13:06] LABS: Lactic Acid 6.7 mmol/L (0.7-2.0)
--- NOTE | 2022-03-19 13:52 | PM.CNCAR ---
Assessment and Plan Additional Plan This is a 76-year-old man with chronic atrial fibrillation he has at times been bradycardic. This is not new for Mr. Lockhart. The reader is referred to several other cardiology consultations were group has been asked to see him for the same reason. He states that he might have had a syncopal episode on 1 occasion in the last 7 years but generally speaking this is not a significant problem for him. He also states that even if I did recommended he would declined to have a pacemaker implanted. At this point we have no other specific recommendations he should not receive any medications that would affect AV node conduction which is exactly what I mentioned in my last consult October of 2020. Did have an echocardiogram done here within the last month or so which does not show any new pathology his left ventricular function is known to be normal he has significant biatrial dilation which of course is to be expected with chronic atrial fibrillation. Master Eric MD [facility] History of Present Illness History of Present Illness Consult date/time: 03/19/22 13:52 Consult reason: atrial fibrillation and Other (Bradycardia) Reason For Visit: Dyspnea Narrative: This is a 76-year-old patient I am seeing at the request of the hospitalist because of bradycardia. The patient is known to our practice we have seen this gentleman at least 2 or 3 other times for the same reason in the last couple of years. He this is a man with chronic atrial fibrillation with a slow ventricular response of does not require any medication for rate control. At times he is bradycardic with sometimes more impressively so with heart rates down in the 20s but with this he appears to be asymptomatic. He was admitted to the hospital here yesterday with symptoms of generalized weakness it was felt that he has been drinking too much alcohol and was admitted for further evaluation he was placed on telemetry. He does have atrial fibrillation which is again his chronic rhythm he generally speaking has a heart rate in the 70s and 80s. Yesterday during sleeping hours he was more bradycardic as mentioned above and for this reason we were asked to see him in consultation. 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 He was cleared for surgery and has not had any problems since then. I do not believe he is followed by any branch maker outside of the hospital at least from what I can say. He is a very poor historian regarding the details of his health. When asked specifically if he is ever had a syncopal episode he states that he has had 1 since 2016 that he can recall but he does not remember any of the details. He generally lives alone in his own home he has family nearby. He somehow manages his own affairs. He does have a leg prosthesis since his amputation last year he says that was not brought to the hospital for him to use while he is here. He does have a history of alcohol abuse and falling and is therefore not felt to be a candidate for systemic anticoagulation. I told the patient that there is the potential that he would require a pacemaker implanted he started to have worsening bradycardia and pauses with syncope. The patient states if that ever happens he is not interested in having any procedure such as a pacemaker. Review of Systems Review of Systems: ROS unobtainable: Yes unobtainable due to mental status PMFSH Past Medical History Medical History Alcohol abuse History of alcohol abuse though he has cut back significantly in the last 6 months or so. Now drinking a couple of beers 5 days a week. Anxiety Asthma Benign prostatic hyperplasia Cerebrovascular accident Chronic abscess of lower leg Chronic anemia Chronic hyponatremia Chronic obstructive
[2022-03-19 18:57] LABS: Sodium 124 mmol/L (137-145)
[2022-03-19 19:00] LABS: Lactic Acid Reflex 2.8 mmol/L (0.7-2.0)
[2022-03-19] MEDS: traZODone HCL 50 MG TABLET PO (21:55)
[2022-03-19 23:51] LABS: Creatinine Urine 24.2 mg/dL; Total Protein Urine Random 45 mg/dL; Ur Ttl Prot Creatinine Ratio 1.86 mg/mg (0-0.20)
[2022-03-19 23:55] LABS: Sodium Urine Random < 5 meq/L
[2022-03-20] VITALS (23 sets, daily range): BP systolic 116–133; BP diastolic 57–75; PULSE 60–98; RESP 16–25; TEMP 36.3–37.2; O2SAT 93–98
[2022-03-20] MEDS: ACETAMINOPHEN 500 MG TABLET 1000 MG PO (01:44)
[2022-03-20] MEDS: IPRATROPIUM BR 0.02% INH SOLN 0.5 MG/2.5 ML VIAL INHALATION ×4 (02:05→19:40)
[2022-03-20] MEDS: ALBUTEROL SULFATE NEB 2.5 MG/3 ML INH 5 MG INHALATION ×4 (02:05→19:40)
[2022-03-20 06:05] LABS: Alveolar/Arterial O2 Gradient 32.9 mmHg; Base Excess ABG 0.1 mEq/l (+/-2.0); HCO3 ABG 22.7 mEq/l (22.0-26.0); Oxygen Saturation ABG 98.9 % (95.0-100.0); PO2 ABG 131.3 mmHg (80.0-100.0); Total Hemoglobin 10.5 g/dL (12.0-18.0); pH ABG 7.497 (7.350-7.450)
[2022-03-20 06:06] LABS: Oxyhemoglobin 97.2 % THb (90.0-100.0)
[2022-03-20 06:07] LABS: Device NASAL CANNULA; Fractional Inspired Oxygen 28 %; Modified Allen's Test Pass; PO2 FiO2 Ratio Arterial Blood 4.69 %; Site Drawn RIGHT RADIAL
[2022-03-20 06:09] LABS: Lactic Acid Reflex 1.6 mmol/L (0.7-2.0)
[2022-03-20] MEDS: SODIUM BICARBONATE 8.4% 100 MEQ in DEXTROSE 5% 1,000 ML 1,000 ML 50 MEQ IV CONT (06:11)
[2022-03-20] MEDS: methylPREDNISolone SOD SUCC 125 MG VIAL 60 MG IV PUSH ×4 (06:11→23:36)
[2022-03-20] MEDS: traMADol HCL (*CRX) 50 MG TABLET PO ×2 (06:11→20:31)
[2022-03-20 06:12] LABS: Hematocrit 29.5 % (42.0-52.0); Hemoglobin 9.8 g/dL (14.0-18.0); Mean Corpuscular HGB Conc 33.2 g/dl (32-36); Mean Corpuscular Hemoglobin 27.6 pg (26-34); Mean Corpuscular Volume 83.1 fl (80-100); Mean Platelet Volume 10.3 fl (7.4-10.4); Platelet Count Result 109 k/mm3 (150-375); Red Blood Count 3.55 M/mm3 (4.6-6.20); White Blood Count 7.9 K/mm3 (4.5-10.0)
[2022-03-20 06:45] LABS: Anion Gap 8 mmol/L (8-16); Blood Urea Nitrogen 27 mg/dL (9-20); Calcium 7.9 mg/dL (8.4-10.2); Carbon Dioxide 25 mmol/L (22-30); Chloride 92 mmol/L (98-107); Creatine Kinase 184 U/L (55-170); Estimated CRCL calculation 52 ml/min; Estimated Glomerular Filt Rate 59; Glucose 236 mg/dL (65-110); Sodium 125 mmol/L (137-145)
[2022-03-20] MEDS: SODIUM CHLORIDE 0.9% IV 1,000 ML 100 ML IV CONT (06:55)
--- NOTE | 2022-03-20 07:04 | P.PNNP_ITS ---
Progress Note: A&P Assessment and Plan (1) Acute kidney injury: Code(s): N17.9 - Acute kidney failure, unspecified Status: Acute Assessment and Plan: * suspect prerenal factors + relative hypotension along with acute illness * renal ultrasound normal * urine electrolytes are pre renal * Total CK is only slightly elevated. * Continue IV fluid. (2) Hyponatremia: Code(s): E87.1 - Hypo-osmolality and hyponatremia Status: Acute Assessment and Plan: * Hyponatremia * TSH is okay. * Cortisol only 11. He is on Solu-Medrol. * Probably related to poor oral intake (only drinking alcohol) and prerenal factors * Sodium level dinesh from 124-125. * Continue IV fluid for now. (3) Dyspnea: Qualifiers: Dyspnea type: unspecified Qualified Code(s): R06.00 - Dyspnea, unspecified Code(s): R06.00 - Dyspnea, unspecified Status: Acute Assessment and Plan: * improvement noted since admission * Chest x-ray is clear. (4) Acidosis: Code(s): E87.2 - Acidosis Status: Acute Assessment and Plan: * He had lactic acidosis. * This is now resolved. * Blood gas shows an alkalosis actually. * Will stop bicarb drip. (5) Hyperkalemia: Code(s): E87.5 - Hyperkalemia Status: Resolved Assessment and Plan: * resolved with medical management * follow trend Subjective Date/time seen: 03/20/22 07:05 Interval history: Patient feels okay. No shortness of breath. No itching or skin rash. Review of Systems Cardiovascular: Cardiovascular: Reports no additional cardiovascular complaints Respiratory: Respiratory: Reports no additional respiratory complaints Gastrointestinal: Gastrointestinal: Reports no additional gastrointestinal complaints Genitourinary: Genitourinary: Reports no additional male genitourinary complaints Exam Narrative: WDWN in NAD skin no rash head ncat lungs clear cor reg no rub abd BS+ nontender and soft ext no edema. Objective Data Vital Signs Vital Signs: Vital Signs - 24 hr 03/19/22 07:46 03/19/22 07:46 03/19/22 08:00 Temperature 36.2 C L Pulse Rate 79 79 75 Respiratory Rate 19 19 31 H Blood Pressure 121/67 Pulse Oximetry 98 98 Oxygen Delivery BiPAP Oxygen Flow Rate Fraction of Inspired Oxygen 03/19/22 08:00 03/19/22 10:01 03/19/22 10:00 Temperature Pulse Rate 99 Respiratory Rate Blood Pressure Pulse Oximetry 92 Oxygen Delivery BiPAP Nasal Cannula Oxygen Flow Rate 3 Fraction of Inspired Oxygen 45 03/19/22 12:00 03/19/22 12:00 03/19/22 12:00 Temperature 37.0 C Pulse Rate 83 72 Respiratory Rate 22 H Blood Pressure 110/47 L Pulse Oximetry 95 Oxygen Delivery BiPAP Oxygen Flow Rate Fraction of Inspired Oxygen 45 03/19/22 13:55 03/19/22 14:04 03/19/22 14:00 Temperature Pulse Rate 75 76 85 Respiratory Rate 20 20 Blood Pressure Pulse Oximetry Oxygen Delivery Oxygen Flow Rate Fraction of Inspired Oxyg
--- NOTE | 2022-03-20 07:04 | PM.PNNEP ---
Progress Note: A&P Assessment and Plan (1) Acute kidney injury: Code(s): N17.9 - Acute kidney failure, unspecified Status: Acute Assessment and Plan: suspect prerenal factors + relative hypotension along with acute illness renal ultrasound normal urine electrolytes are pre renal Total CK is only slightly elevated. Continue IV fluid. (2) Hyponatremia: Code(s): E87.1 - Hypo-osmolality and hyponatremia Status: Acute Assessment and Plan: Hyponatremia TSH is okay. Cortisol only 11. He is on Solu-Medrol. Probably related to poor oral intake (only drinking alcohol) and prerenal factors Sodium level dinesh from 124-125. Continue IV fluid for now. (3) Dyspnea: Qualifiers: Dyspnea type: unspecified Qualified Code(s): R06.00 - Dyspnea, unspecified Code(s): R06.00 - Dyspnea, unspecified Status: Acute Assessment and Plan: improvement noted since admission Chest x-ray is clear. (4) Acidosis: Code(s): E87.2 - Acidosis Status: Acute Assessment and Plan: He had lactic acidosis. This is now resolved. Blood gas shows an alkalosis actually. Will stop bicarb drip. (5) Hyperkalemia: Code(s): E87.5 - Hyperkalemia Status: Resolved Assessment and Plan: resolved with medical management follow trend Subjective Date/time seen: 03/20/22 07:05 Interval history: Patient feels okay. No shortness of breath. No itching or skin rash. Review of Systems Cardiovascular: Cardiovascular: Reports no additional cardiovascular complaints Respiratory: Respiratory: Reports no additional respiratory complaints Gastrointestinal: Gastrointestinal: Reports no additional gastrointestinal complaints Genitourinary: Genitourinary: Reports no additional male genitourinary complaints Exam Narrative: WDWN in NAD skin no rash head ncat lungs clear cor reg no rub abd BS+ nontender and soft ext no edema. Objective Data Vital Signs Vital Signs: Vital Signs - 24 hr 03/19/22 07:46 03/19/22 07:46 03/19/22 08:00 Temperature 36.2 C L Pulse Rate 79 79 75 Respiratory Rate 19 19 31 H Blood Pressure 121/67 Pulse Oximetry 98 98 Oxygen Delivery BiPAP Oxygen Flow Rate Fraction of Inspired Oxygen 03/19/22 08:00 03/19/22 10:01 03/19/22 10:00 Temperature Pulse Rate 99 Respiratory Rate Blood Pressure Pulse Oximetry 92 Oxygen Delivery BiPAP Nasal Cannula Oxygen Flow Rate 3 Fraction of Inspired Oxygen 45 03/19/22 12:00 03/19/22 12:00 03/19/22 12:00 Temperature 37.0 C Pulse Rate 83 72 Respiratory Rate 22 H Blood Pressure 110/47 L Pulse Oximetry 95 Oxygen Delivery BiPAP Oxygen Flow Rate Fraction of Inspired Oxygen 45 03/19/22 13:55 03/19/22 14:04 03/19/22 14:00 Temperature Pulse Rate 75 76 85 Respiratory Rate 20 20 Blood Pressure Pulse Oximetry Oxygen Delivery Oxygen Flow Rate Fraction of Inspired Oxygen 03/19/22 16:00 03/19/22 16:00 03/19/22 16:00 Temperature 37.5 C Pulse Rate 80 73 Respiratory Rate 22 H Blood Pressure 139/68 Pulse Oximetry 96 Oxygen Delivery BiPAP Oxygen Flow Rate Fraction of Inspired Oxygen 45 03/19/22 18:00 03/19/22 19:53 03/19/22 20:40 Temperature 36.8 C Pulse Rate 76 75 72 Respiratory Rate 20 20 Blood Pressure 112/79 Pulse Oximetry 90 Oxygen Delivery Oxygen Flow Rate Fraction of Inspired Oxygen 03/19/22 20:47 03/19/22 20:47 03/19/22 20:00 Temperature Pulse Rate 78 73 Respiratory Rate 20 Blood Pressure Pulse Oximetry 94 Oxygen Delivery Nasal Cannula Oxygen Flow Rate 2 Fraction of Inspired Oxygen 03/19/22 20:00 03/19/22 22:00 03/19/22 23:55 Temperature Pulse Rate 75 Respiratory Rate 26 H Blood Pressure Pulse Oximetry 93 97 Oxygen Delivery Room Air BiPAP Oxygen Flow Rate Fraction of Inspired Oxyge
[2022-03-20] MEDS: UMECLIDINIUM BROMIDE 62.5 MCG ELLIPTA 1 PUFF INHALATION (08:14)
[2022-03-20] MEDS: HEPARIN SODIUM 5,000 UNITS/ML VIAL 5000 UNITS SUB-Q ×2 (08:19→20:32)
[2022-03-20] MEDS: GABAPENTIN 100 MG CAPSULE PO ×3 (08:20→16:56)
[2022-03-20] MEDS: METOPROLOL TARTRATE 25 MG TABLET PO ×2 (08:20→16:56)
[2022-03-20] MEDS: amLODIPine BESYLATE 5 MG TABLET 10 MG PO (08:20)
[2022-03-20] MEDS: FOLIC ACID 1 MG TABLET PO (08:20)
[2022-03-20] MEDS: SIMVASTATIN 10 MG TABLET PO (08:20)
[2022-03-20] MEDS: SERTRALINE HCL 50 MG TABLET PO (08:20)
[2022-03-20] MEDS: SODIUM CHLORIDE 500 MG TABLET PO ×2 (08:20→16:56)
[2022-03-20] MEDS: MAGNESIUM OXIDE 400 MG TABLET PO (08:20)
[2022-03-20] MEDS: ASPIRIN 325 MG ENTERIC TABLET PO (08:20)
--- NOTE | 2022-03-20 12:24 | PM.IMPN ---
Progress Note: A&P Assessment and Plan (1) Acute on chronic respiratory failure with hypoxia and hypercapnia: Code(s): J96.21 - Acute and chronic respiratory failure with hypoxia; J96.22 - Acute and chronic respiratory failure with hypercapnia Status: Acute Assessment and Plan: Appears to be breathing better. Now on supplemental oxygen. Respiratory component of Acid-base appears to be improved. likely discharge in 1-2 days. Will need home oxygen about (2) Acute hyponatremia: Code(s): E87.1 - Hypo-osmolality and hyponatremia Status: Acute Assessment and Plan: Hypervolemic hypo natremia Will diurese (3) Acute kidney injury: Code(s): N17.9 - Acute kidney failure, unspecified Status: Acute Assessment and Plan: Likely to be cardiorenal syndrome Continue to monitor BUN and creatinine Nephrology consult. (4) Acute hyperkalemia: Code(s): E87.5 - Hyperkalemia Status: Acute Assessment and Plan: Monitor (5) Alcohol abuse: Code(s): F10.10 - Alcohol abuse, uncomplicated Status: Acute Assessment and Plan: CIWA protocol as needed (6) COPD exacerbation: Code(s): J44.1 - Chronic obstructive pulmonary disease with (acute) exacerbation Status: Chronic Assessment and Plan: Improved. Continue respiratory treatments. (7) Type 2 diabetes mellitus: Qualifiers: Diabetes mellitus prison insulin use: without prison use Diabetes mellitus complication detail: with foot ulcer Code(s): E11.9 - Type 2 diabetes mellitus without complications Status: Chronic Assessment and Plan: Diet controlled Blood sugars controlled (8) Elevated troponin: Code(s): R77.8 - Other specified abnormalities of plasma proteins Status: Acute Assessment and Plan: Cardiology consult (9) Amputation of left lower extremity below knee: Code(s): S88.112A - Complete traumatic amputation at level between knee and ankle, left lower leg, initial encounter Status: Acute Assessment and Plan: Supportive care Fall precautions (10) Persistent atrial fibrillation: Code(s): I48.19 - Other persistent atrial fibrillation Status: Acute Assessment and Plan: Monitor (11) Smoker: Code(s): F17.200 - Nicotine dependence, unspecified, uncomplicated Status: Acute Assessment and Plan: Nicotine patch as needed (12) Lactic acid acidosis: Code(s): E87.2 - Acidosis Status: Acute Assessment and Plan: improved. Additional Plan Likely discharge in 1-2 days Subjective Date/time seen: 03/20/22 12:24 no new complaints. breathing is improved Exam Narrative: Patient is laying in a stretcher. Const: General: cooperative, comfortable, well developed, alert, awake and acute distress mild Nutritional Appearance: thin Orientation/consciousness: patient oriented x3 HENMT: Head: normal to inspection, normocephalic and atraumatic Ears: hearing grossly normal bilaterally General nose exam: Normal external nose present Face and sinus: normal facial exam and other (BiPAP mask on) Eyes: General: appearance normal, both eyes and all related structures Alignment and Position: alignment normal Sclera: sclerae normal Pupils: Equal, round and reactive pupils present EOM: EOMs intact bilaterally Neck: Neck: normal visual inspection, full ROM, no lymphadenopathy, supple and no JVD Thyroid: thyroid normal Lymphatic: no lymphadenopathy noted Resp: Effort & Inspection: normal respiratory effort, able to speak in complete sentences and no cough Auscultation: clear to auscultation bilaterally, no crackles, no rales, no rhonchi, no wheezes and diminished lung sounds Cardio: Jugular venous distension: no JVD Rate: bradycardic Rhythm: abnormal rhythm irregularly irregular Heart sounds: S1 normal heart sound present and S2 normal heart sound present GI:
[2022-03-20 12:37] LABS: Glucose Point of Care 198 mg/dl (65-105)
[2022-03-20 13:22] LABS: Sodium 127 mmol/L (137-145)
--- NOTE | 2022-03-20 13:26 | PCPTNOTE ---
Attempted PT evaluation, patient with respiratory therapist. Will Follow.
--- NOTE | 2022-03-20 13:48 | WPDCDIQUERY2 ---
CDI Query Clarification Request ?03/19 ER physician documented: Clinical Impression: ?Acidosis, Acute hyponatremia, Hypoxia, Hypercarbia, Bradycardia, Acute kidney injury, Acute hyperkalemia, Alcohol abuse CHF exacerbation Qualifiers: ?Heart failure type:?unspecified?Qualified Code(s):?I50.9 - Heart failure, unspecified Dyspnea Qualifiers: ?Dyspnea type:?unspecified?Qualified Code(s):?R06.00 - Dyspnea, unspecified Labs returned for elevated BNP and troponin chest x-ray concerning for increased pulmonary vasculature patient is likely having a CHF exacerbation as well as a COPD exacerbation.? Patient also has multiple electrolyte abnormalities and LORNA likely related to his alcohol abuse dehydration and failure to thrive. Lab results [id number] Please clarify if diagnosis: (Congestive Heart Failure exacerbation) has been ruled in, ruled out, or unable to determine Please clarify if diagnosis: (Congestive Heart Failure exacerbation) if stands is systolic, diastolic, combined, other, or unable to determine
[2022-03-20 17:14] LABS: Glucose Point of Care 237 mg/dl (65-105)
[2022-03-20] MEDS: INSULIN ASPART (*BKC) 100 UNITS/ML SUB-Q (17:55)
[2022-03-20] MEDS: ALBUTEROL SULFATE NEB 2.5 MG/0.5 ML INH (19:43)
[2022-03-20] MEDS: traZODone HCL 50 MG TABLET PO (20:32)
[2022-03-20 21:01] LABS: Glucose Point of Care 220 mg/dl (65-105)
[2022-03-21] VITALS (14 sets, daily range): BP systolic 100–128; BP diastolic 62–71; PULSE 63–112; RESP 16–22; TEMP 35.8–36.4; O2SAT 92–99
[2022-03-21] MEDS: ALBUTEROL SULFATE NEB 2.5 MG/3 ML INH 5 MG INHALATION ×2 (01:40→20:38)
[2022-03-21] MEDS: IPRATROPIUM BR 0.02% INH SOLN 0.5 MG/2.5 ML VIAL INHALATION ×4 (01:40→20:38)
[2022-03-21] MEDS: methylPREDNISolone SOD SUCC 125 MG VIAL 60 MG IV PUSH ×3 (05:00→17:46)
[2022-03-21] MEDS: traMADol HCL (*CRX) 50 MG TABLET PO ×3 (05:02→19:45)
[2022-03-21 06:10] LABS: Albumin Level 3.7 g/dL (3.5-5.1); Anion Gap 7 mmol/L (8-16); Blood Urea Nitrogen 26 mg/dL (9-20); Calcium 7.9 mg/dL (8.4-10.2); Carbon Dioxide 27 mmol/L (22-30); Chloride 98 mmol/L (98-107); Estimated CRCL calculation 68 ml/min; Estimated Glomerular Filt Rate > 60; Glucose 230 mg/dL (65-110); Phosphorus 2.8 mg/dL (2.5-4.5); Potassium 4.3 mmol/L (3.4-5.0); Sodium 132 mmol/L (137-145)
[2022-03-21 07:41] LABS: Glucose Point of Care 231 mg/dl (65-105)
[2022-03-21] MEDS: amLODIPine BESYLATE 5 MG TABLET 10 MG PO (08:00)
[2022-03-21] MEDS: SERTRALINE HCL 50 MG TABLET PO (08:00)
[2022-03-21] MEDS: GABAPENTIN 100 MG CAPSULE PO ×3 (08:00→16:40)
[2022-03-21] MEDS: METOPROLOL TARTRATE 25 MG TABLET PO ×2 (08:00→16:41)
[2022-03-21] MEDS: SODIUM CHLORIDE 500 MG TABLET PO ×2 (08:00→16:40)
[2022-03-21] MEDS: ASPIRIN 325 MG ENTERIC TABLET PO (08:00)
[2022-03-21] MEDS: SIMVASTATIN 10 MG TABLET PO (08:01)
[2022-03-21] MEDS: FOLIC ACID 1 MG TABLET PO (08:01)
[2022-03-21] MEDS: MAGNESIUM OXIDE 400 MG TABLET PO (08:01)
[2022-03-21] MEDS: HEPARIN SODIUM 5,000 UNITS/ML VIAL 5000 UNITS SUB-Q ×2 (08:07→19:45)
[2022-03-21] MEDS: INSULIN ASPART (*BKC) 100 UNITS/ML SUB-Q ×3 (08:40→16:40)
[2022-03-21] MEDS: ALBUTEROL SULFATE NEB 2.5 MG/0.5 ML INH 5 MG (09:27)
[2022-03-21 11:43] LABS: Glucose Point of Care 205 mg/dl (65-105)
--- NOTE | 2022-03-21 12:15 | P.PNNP_ITS ---
Progress Note: A&P Assessment and Plan (1) Acute kidney injury: Code(s): N17.9 - Acute kidney failure, unspecified Status: Acute Assessment and Plan: * resolved * suspect prerenal factors + relative hypotension along with acute illness * evaluation to date: * renal ultrasound normal * urine electrolytes are pre renal * total CK is only slightly elevated. * off IVFs at this time (2) Hyponatremia: Code(s): E87.1 - Hypo-osmolality and hyponatremia Status: Acute Assessment and Plan: * slowly improving * evaluation to date: * TSH okay * cortisol low but on steroids * pre-renal urine electrolytes * SPEP/UPEP and serum/urine osmolality pending * likely secondary to poor oral intake (only drinking alcohol) and prerenal factors * off IVFs at this time but on low dose salt tabs * consider trial of holding salt tabs in a few days (3) Dyspnea: Qualifiers: Dyspnea type: unspecified Qualified Code(s): R06.00 - Dyspnea, unspecified Code(s): R06.00 - Dyspnea, unspecified Status: Acute Assessment and Plan: * improvement noted since admission * most recent chest x-ray is clear (4) Acidosis: Code(s): E87.2 - Acidosis Status: Acute Assessment and Plan: * resolving and secondary to lactic acidosis. * off bicarb fluids at this time (5) Hyperkalemia: Code(s): E87.5 - Hyperkalemia Status: Resolved Assessment and Plan: * resolved with medical management * follow trend Will continue to follow. Subjective Date/time seen: 03/21/22 12:15 No acute complaints noted at the time of my visit; respiratory status seems relatively stable (remains on 2L oxygen by nasal cannula); no new issues/events overnight or earlier this AM; renal function and sodium level improving. Exam Narrative: General: WD/WN male in NAD Heart: normal S1 and S2; no rub Lungs: clear to auscultation Abdomen: soft, nontender, nondistended, positive bowel sounds Extremities: no cyanosis or clubbing; no edema Skin: warm and dry Objective Data Vital Signs Vital Signs: Vital Signs Temp Pulse Resp BP Pulse Ox O2 Del Method O2 Flow Rate 03/21/22 09:31 73 20 03/21/22 09:31 95 03/21/22 09:25 77 20 03/21/22 09:25 77 95 Nasal Cannula 2 03/21/22 08:00 94 Nasal Cannula 3 03/21/22 08:00 88 03/21/22 03:54 36.4 C L 75 20 121/71 92 03/21/22 01:49 69 20 03/21/22 01:40 63 20 03/20/22 19:50 67 20 03/20/22 20:00 Nasal Cannula 3 03/20/22 19:45 67 20 95 Nasal Cannula 2 03/20/22 19:40 65 20 03/20/22 19:33 36.3 C L 98 22 H 125/75 95 Intake/Output Intake/Output: Intake & Output 03/18/22 03/19/22 03/20/22 03/21/22 23:59 23:59 23:59 23:59 Intake Total 500 2085 2000 670 Output Total 2670 1475 600 Balance 500 -585 525 70 Meds/Results Medications: Active Medications Generic Name Dose Route Start Last Admin Trade Name Freq PRN Reason Stop Dose Admin Acetaminophen 1,000 mg 03/19/22 21:09 03/20/22 01:44
--- NOTE | 2022-03-21 12:15 | PM.PNNEP ---
Progress Note: A&P Assessment and Plan (1) Acute kidney injury: Code(s): N17.9 - Acute kidney failure, unspecified Status: Acute Assessment and Plan: resolved suspect prerenal factors + relative hypotension along with acute illness evaluation to date: renal ultrasound normal urine electrolytes are pre renal total CK is only slightly elevated. off IVFs at this time (2) Hyponatremia: Code(s): E87.1 - Hypo-osmolality and hyponatremia Status: Acute Assessment and Plan: slowly improving evaluation to date: TSH okay cortisol low but on steroids pre-renal urine electrolytes SPEP/UPEP and serum/urine osmolality pending likely secondary to poor oral intake (only drinking alcohol) and prerenal factors off IVFs at this time but on low dose salt tabs consider trial of holding salt tabs in a few days (3) Dyspnea: Qualifiers: Dyspnea type: unspecified Qualified Code(s): R06.00 - Dyspnea, unspecified Code(s): R06.00 - Dyspnea, unspecified Status: Acute Assessment and Plan: improvement noted since admission most recent chest x-ray is clear (4) Acidosis: Code(s): E87.2 - Acidosis Status: Acute Assessment and Plan: resolving and secondary to lactic acidosis. off bicarb fluids at this time (5) Hyperkalemia: Code(s): E87.5 - Hyperkalemia Status: Resolved Assessment and Plan: resolved with medical management follow trend Will continue to follow. Subjective Date/time seen: 03/21/22 12:15 No acute complaints noted at the time of my visit; respiratory status seems relatively stable (remains on 2L oxygen by nasal cannula); no new issues/events overnight or earlier this AM; renal function and sodium level improving. Exam Narrative: General: WD/WN male in NAD Heart: normal S1 and S2; no rub Lungs: clear to auscultation Abdomen: soft, nontender, nondistended, positive bowel sounds Extremities: no cyanosis or clubbing; no edema Skin: warm and dry Objective Data Vital Signs Vital Signs: Vital Signs Temp Pulse Resp BP Pulse Ox O2 Del Method O2 Flow Rate 03/21/22 09:31 73 20 03/21/22 09:31 95 03/21/22 09:25 77 20 03/21/22 09:25 77 95 Nasal Cannula 2 03/21/22 08:00 94 Nasal Cannula 3 03/21/22 08:00 88 03/21/22 03:54 36.4 C L 75 20 121/71 92 03/21/22 01:49 69 20 03/21/22 01:40 63 20 03/20/22 19:50 67 20 03/20/22 20:00 Nasal Cannula 3 03/20/22 19:45 67 20 95 Nasal Cannula 2 03/20/22 19:40 65 20 03/20/22 19:33 36.3 C L 98 22 H 125/75 95 Intake/Output Intake/Output: Intake & Output 03/18/22 03/19/22 03/20/22 03/21/22 23:59 23:59 23:59 23:59 Intake Total 500 2085 2000 670 Output Total 2670 1475 600 Balance 500 -585 525 70 Meds/Results Medications: Active Medications Generic Name Dose Route Start Last Admin Trade Name Freq PRN Reason Stop Dose Admin Acetaminophen 1,000 mg 03/19/22 21:09 03/20/22 01:44 Acetaminophen 500 Mg Tablet PO 1,000 mg Q6-8H PRN Administration Mild Pain (1-3) Or Fever Albuterol 5 mg 03/19/22 02:00 03/21/22 08:00 Albuterol Sulfate Neb 2.5 Mg/3 Ml Inh INHALATION Not Given Q6HRT KALPESH Albuterol 2 puff 03/19/22 21:09 Albuterol Sulfate (*Sp) Aerosol 1 Puff INHALATION QID PRN shortness of breath or wheezing Amlodipine Besylate 10 mg 03/20/22 09:00 03/21/22 08:00 Amlodipine Besylate 5 Mg Tablet PO 10 mg DAILY KALPESH Administration Aspirin 325 mg 03/20/22 09:00 03/21/22 08:00 Aspirin 325 Mg Enteric Tablet PO 325 mg DAILY KALPESH Administration Dextrose 12.5 gm 03/20/22 11:11 Dextrose 50% 25 Gm/50 Ml Syringe IV PUSH PRN PRN Hypoglycemia Protocol Folic Acid 1 mg 03/20/22 09:00 03/21/22 08:01 Folic Acid 1 Mg Tablet PO 1 mg DAILY SC
--- NOTE | 2022-03-21 13:47 | PM.IMPN ---
Progress Note: A&P Assessment and Plan (1) Acute on chronic respiratory failure with hypoxia and hypercapnia: Code(s): J96.21 - Acute and chronic respiratory failure with hypoxia; J96.22 - Acute and chronic respiratory failure with hypercapnia Status: Acute Assessment and Plan: Appears to be breathing better. Now on supplemental oxygen. Respiratory component of Acid-base appears to be improved. likely discharge in 1-2 days. Will need home oxygen about (2) Acute hyponatremia: Code(s): E87.1 - Hypo-osmolality and hyponatremia Status: Acute Assessment and Plan: Hypervolemic hypo natremia Will diurese (3) Acute kidney injury: Code(s): N17.9 - Acute kidney failure, unspecified Status: Acute Assessment and Plan: Likely to be cardiorenal syndrome Continue to monitor BUN and creatinine Nephrology consult. (4) Acute hyperkalemia: Code(s): E87.5 - Hyperkalemia Status: Acute Assessment and Plan: Monitor (5) Alcohol abuse: Code(s): F10.10 - Alcohol abuse, uncomplicated Status: Acute Assessment and Plan: CIWA protocol as needed (6) COPD exacerbation: Code(s): J44.1 - Chronic obstructive pulmonary disease with (acute) exacerbation Status: Chronic Assessment and Plan: Improved. Continue respiratory treatments. (7) Type 2 diabetes mellitus: Qualifiers: Diabetes mellitus fdc insulin use: without fdc use Diabetes mellitus complication detail: with foot ulcer Code(s): E11.9 - Type 2 diabetes mellitus without complications Status: Chronic Assessment and Plan: Diet controlled Blood sugars controlled (8) Elevated troponin: Code(s): R77.8 - Other specified abnormalities of plasma proteins Status: Acute Assessment and Plan: Cardiology consult (9) Amputation of left lower extremity below knee: Code(s): S88.112A - Complete traumatic amputation at level between knee and ankle, left lower leg, initial encounter Status: Acute Assessment and Plan: Supportive care Fall precautions (10) Persistent atrial fibrillation: Code(s): I48.19 - Other persistent atrial fibrillation Status: Acute Assessment and Plan: Monitor (11) Smoker: Code(s): F17.200 - Nicotine dependence, unspecified, uncomplicated Status: Acute Assessment and Plan: Nicotine patch as needed (12) Lactic acid acidosis: Code(s): E87.2 - Acidosis Status: Acute Assessment and Plan: improved. Additional Plan Likely discharge in 1-2 days 03/21/2022 interval history: patient is 76-year-old with history of chronic atrial fibrillation presented with shortness of breath secondary to hypercapnic respiratory failure, due to COPD and being treated with with methylprednisone and updraft, patient clinical symptoms are improved will taper methylprednisone, will continue to monitor, patient with a fib rate is controlled, patient with hyponatremia most likely secondary to alcohol abuse, the sodium is trending up, will continue to monitor, patient remains clinically stable, will continue PT OT and further recommendation to follow Subjective Date/time seen: 03/21/22 13:47 03/21/2022 interval history: patient is 76-year-old with history of chronic atrial fibrillation presented with shortness of breath secondary to hypercapnic respiratory failure, due to COPD and being treated with with methylprednisone and updraft, patient clinical symptoms are improved will taper methylprednisone, will continue to monitor, patient with a fib rate is controlled, patient with hyponatremia most likely secondary to alcohol abuse, the sodium is trending up, will continue to monitor, patient remains clinically stable, will continue PT OT and further recommendation to follow Review of Systems Review of Systems: patient has no new complaint Exam Na
[2022-03-21 16:34] LABS: Glucose Point of Care 282 mg/dl (65-105)
[2022-03-21] MEDS: traZODone HCL 50 MG TABLET PO (19:45)
[2022-03-21 19:54] LABS: Glucose Point of Care 234 mg/dl (65-105)
[2022-03-21] MEDS: ACETAMINOPHEN 500 MG TABLET 1000 MG PO (22:12)
[2022-03-22] VITALS (17 sets, daily range): BP systolic 119–136; BP diastolic 60–68; PULSE 68–85; RESP 17–22; TEMP 36.1–36.6; O2SAT 95–99
[2022-03-22] MEDS: methylPREDNISolone SOD SUCC 125 MG VIAL 60 MG IV PUSH ×3 (00:43→11:48)
[2022-03-22] MEDS: IPRATROPIUM BR 0.02% INH SOLN 0.5 MG/2.5 ML VIAL INHALATION ×4 (02:03→21:00)
[2022-03-22] MEDS: ALBUTEROL SULFATE NEB 2.5 MG/3 ML INH 5 MG INHALATION ×4 (02:03→21:00)
[2022-03-22] MEDS: traMADol HCL (*CRX) 50 MG TABLET PO ×2 (05:14→17:33)
[2022-03-22] MEDS: INSULIN ASPART (*BKC) 100 UNITS/ML SUB-Q ×2 (07:50→17:31)
[2022-03-22] MEDS: amLODIPine BESYLATE 5 MG TABLET 10 MG PO (08:00)
[2022-03-22] MEDS: SERTRALINE HCL 50 MG TABLET PO (08:00)
[2022-03-22] MEDS: GABAPENTIN 100 MG CAPSULE PO ×2 (08:00→17:03)
[2022-03-22] MEDS: METOPROLOL TARTRATE 25 MG TABLET PO ×2 (08:00→17:04)
[2022-03-22] MEDS: ASPIRIN 325 MG ENTERIC TABLET PO (08:00)
[2022-03-22] MEDS: FOLIC ACID 1 MG TABLET PO (08:01)
[2022-03-22] MEDS: SODIUM CHLORIDE 500 MG TABLET PO ×2 (08:01→17:03)
[2022-03-22] MEDS: HEPARIN SODIUM 5,000 UNITS/ML VIAL 5000 UNITS SUB-Q ×2 (08:01→20:05)
[2022-03-22] MEDS: MAGNESIUM OXIDE 400 MG TABLET PO (08:01)
[2022-03-22] MEDS: SIMVASTATIN 10 MG TABLET PO (08:01)
[2022-03-22] MEDS: UMECLIDINIUM BROMIDE 62.5 MCG ELLIPTA 1 PUFF INHALATION (08:07)
[2022-03-22 11:31] LABS: Albumin Level 3.4 g/dL (3.5-5.1); Anion Gap 6 mmol/L (8-16); Blood Urea Nitrogen 24 mg/dL (9-20); Calcium 7.9 mg/dL (8.4-10.2); Carbon Dioxide 29 mmol/L (22-30); Chloride 97 mmol/L (98-107); Estimated CRCL calculation 62 ml/min; Estimated Glomerular Filt Rate > 60; Glucose 231 mg/dL (65-110); Phosphorus 2.2 mg/dL (2.5-4.5); Sodium 132 mmol/L (137-145)
[2022-03-22 12:02] LABS: Glucose Point of Care 209 mg/dl (65-105)
--- NOTE | 2022-03-22 12:42 | PM.IMPN ---
Progress Note: A&P Assessment and Plan (1) Acute on chronic respiratory failure with hypoxia and hypercapnia: Code(s): J96.21 - Acute and chronic respiratory failure with hypoxia; J96.22 - Acute and chronic respiratory failure with hypercapnia Status: Acute Assessment and Plan: Appears to be breathing better. Now on supplemental oxygen. Respiratory component of Acid-base appears to be improved. likely discharge in 1-2 days. Will need home oxygen about (2) Acute hyponatremia: Code(s): E87.1 - Hypo-osmolality and hyponatremia Status: Acute Assessment and Plan: Hypervolemic hypo natremia Will diurese (3) Acute kidney injury: Code(s): N17.9 - Acute kidney failure, unspecified Status: Acute Assessment and Plan: Likely to be cardiorenal syndrome Continue to monitor BUN and creatinine Nephrology consult. (4) Acute hyperkalemia: Code(s): E87.5 - Hyperkalemia Status: Acute Assessment and Plan: Monitor (5) Alcohol abuse: Code(s): F10.10 - Alcohol abuse, uncomplicated Status: Acute Assessment and Plan: CIWA protocol as needed (6) COPD exacerbation: Code(s): J44.1 - Chronic obstructive pulmonary disease with (acute) exacerbation Status: Chronic Assessment and Plan: Improved. Continue respiratory treatments. (7) Type 2 diabetes mellitus: Qualifiers: Diabetes mellitus alf insulin use: without alf use Diabetes mellitus complication detail: with foot ulcer Code(s): E11.9 - Type 2 diabetes mellitus without complications Status: Chronic Assessment and Plan: Diet controlled Blood sugars controlled (8) Elevated troponin: Code(s): R77.8 - Other specified abnormalities of plasma proteins Status: Acute Assessment and Plan: Cardiology consult (9) Amputation of left lower extremity below knee: Code(s): S88.112A - Complete traumatic amputation at level between knee and ankle, left lower leg, initial encounter Status: Acute Assessment and Plan: Supportive care Fall precautions (10) Persistent atrial fibrillation: Code(s): I48.19 - Other persistent atrial fibrillation Status: Acute Assessment and Plan: Monitor (11) Smoker: Code(s): F17.200 - Nicotine dependence, unspecified, uncomplicated Status: Acute Assessment and Plan: Nicotine patch as needed (12) Lactic acid acidosis: Code(s): E87.2 - Acidosis Status: Acute Assessment and Plan: improved. Additional Plan Likely discharge in 1-2 days 03/21/2022 interval history: patient is 76-year-old with history of chronic atrial fibrillation presented with shortness of breath secondary to hypercapnic respiratory failure, due to COPD and being treated with with methylprednisone and updraft, patient clinical symptoms are improved will taper methylprednisone, will continue to monitor, patient with a fib rate is controlled, patient with hyponatremia most likely secondary to alcohol abuse, the sodium is trending up, will continue to monitor, patient remains clinically stable, will continue PT OT and further recommendation to follow. 03/22/2022 interval history: patient is 76-year-old with history of chronic atrial fibrillation presented with shortness of breath secondary to hypercapnic respiratory failure, due to COPD and being treated with with methylprednisone and updraft, patient clinical symptoms are improved will taper methylprednisone from 60mg q6 to prednisone 60mg q daily, will continue to monitor, patient with a fib rate is controlled, patient with hyponatremia most likely secondary to alcohol abuse, the sodium is trending up, according to nursing staff patient is having difficulty swallowing will do the bedside swallow study and further recommendation to followwill continue to monitor, patient remains clinically stable, will continu
--- NOTE | 2022-03-22 12:53 | PM.PNNEP ---
Progress Note: A&P Assessment and Plan (1) Acute kidney injury: Code(s): N17.9 - Acute kidney failure, unspecified Status: Acute Assessment and Plan: resolving suspect prerenal factors + relative hypotension along with acute illness evaluation to date: renal ultrasound normal urine electrolytes are pre renal total CK is only slightly elevated. off IVFs at this time - may need to restart depending on swallow evaluation (2) Hyponatremia: Code(s): E87.1 - Hypo-osmolality and hyponatremia Status: Acute Assessment and Plan: slowly improving evaluation to date: TSH okay cortisol low but on steroids pre-renal urine electrolytes SPEP/UPEP with possible M-spike -- check serum/urine immunofixation serum/urine osmolality pending on SSRI therapy likely secondary to poor oral intake (only drinking alcohol) and prerenal factors off IVFs at this time but on low dose salt tabs consider trial of holding salt tabs in the next day or so (3) Dyspnea: Qualifiers: Dyspnea type: unspecified Qualified Code(s): R06.00 - Dyspnea, unspecified Code(s): R06.00 - Dyspnea, unspecified Status: Acute Assessment and Plan: improvement noted since admission most recent chest x-ray is clear (4) Acidosis: Code(s): E87.2 - Acidosis Status: Acute Assessment and Plan: resolving and secondary to lactic acidosis off bicarb fluids at this time (5) Hyperkalemia: Code(s): E87.5 - Hyperkalemia Status: Resolved Assessment and Plan: resolved with medical management follow trend Not much else to add - Will continue to follow intermittently Subjective Date/time seen: 03/22/22 12:53 Respiratory status appears stable at this time (remains on 2L oxygen by nasal cannula); concerns noted about difficulty swallowing so evaluation ordered; no acute distress noted; no issues/events overnight or earlier this morning. Exam Narrative: General: WD/WN male in NAD Heart: normal S1 and S2; no rub Lungs: clear to auscultation Abdomen: soft, nontender, nondistended, positive bowel sounds Extremities: no cyanosis or clubbing; no edema Skin: warm and intact Objective Data Vital Signs Vital Signs: Vital Signs Temp Pulse Resp BP Pulse Ox O2 Del Method O2 Flow Rate 03/22/22 08:20 79 20 03/22/22 08:09 97 Nasal Cannula 2 03/22/22 08:07 84 20 03/22/22 08:00 70 03/22/22 07:56 95 Nasal Cannula 2 03/22/22 03:58 36.6 C 68 17 119/68 99 03/22/22 02:13 75 20 03/22/22 02:03 71 20 03/21/22 23:19 112 H 22 H 97 BiPAP 03/21/22 20:00 Nasal Cannula 3 03/21/22 20:51 77 20 03/21/22 20:38 69 20 03/21/22 19:14 35.8 C L 107 H 16 128/70 97 Intake/Output Intake/Output: Intake & Output 03/19/22 03/20/22 03/21/22 03/22/22 23:59 23:59 23:59 23:59 Intake Total 2085 2000 1150 340 Output Total 2670 1475 1575 400 Balance -585 525 -425 -60 Meds/Results Medications: Active Medications Generic Name Dose Route Start Last Admin Trade Name Gurvinderq PRN Reason Stop Dose Admin Acetaminophen 1,000 mg 03/19/22 21:09 03/21/22 22:12 Acetaminophen 500 Mg Tablet PO 1,000 mg Q6-8H PRN Administration Mild Pain (1-3) Or Fever Albuterol 5 mg 03/19/22 02:00 03/22/22 14:16 Albuterol Sulfate Neb 2.5 Mg/3 Ml Inh INHALATION 5 mg Q6HRT KALPESH Administration Albuterol 2 puff 03/19/22 21:09 Albuterol Sulfate (*Sp) Aerosol 1 Puff INHALATION QID PRN shortness of breath or wheezing Amlodipine Besylate 10 mg 03/20/22 09:00 03/22/22 08:00 Amlodipine Besylate 5 Mg Tablet PO 10 mg DAILY KALPESH Administration Aspirin 325 mg 03/20/22 09:00 03/22/22 08:00 Aspirin 325 Mg Enteric Tablet PO 325 mg DAILY KALPESH Administration Dextrose 12.5 gm 03/20/22 11:11 Dextrose 50% 25 Gm/50 Ml S
--- NOTE | 2022-03-22 12:53 | P.PNNP_ITS ---
Progress Note: A&P Assessment and Plan (1) Acute kidney injury: Code(s): N17.9 - Acute kidney failure, unspecified Status: Acute Assessment and Plan: * resolving * suspect prerenal factors + relative hypotension along with acute illness * evaluation to date: * renal ultrasound normal * urine electrolytes are pre renal * total CK is only slightly elevated. * off IVFs at this time - may need to restart depending on swallow evaluation (2) Hyponatremia: Code(s): E87.1 - Hypo-osmolality and hyponatremia Status: Acute Assessment and Plan: * slowly improving * evaluation to date: * TSH okay * cortisol low but on steroids * pre-renal urine electrolytes * SPEP/UPEP with possible M-spike -- check serum/urine immunofixation * serum/urine osmolality pending * on SSRI therapy * likely secondary to poor oral intake (only drinking alcohol) and prerenal factors * off IVFs at this time but on low dose salt tabs * consider trial of holding salt tabs in the next day or so (3) Dyspnea: Qualifiers: Dyspnea type: unspecified Qualified Code(s): R06.00 - Dyspnea, unspecified Code(s): R06.00 - Dyspnea, unspecified Status: Acute Assessment and Plan: * improvement noted since admission * most recent chest x-ray is clear (4) Acidosis: Code(s): E87.2 - Acidosis Status: Acute Assessment and Plan: * resolving and secondary to lactic acidosis * off bicarb fluids at this time (5) Hyperkalemia: Code(s): E87.5 - Hyperkalemia Status: Resolved Assessment and Plan: * resolved with medical management * follow trend Not much else to add - Will continue to follow intermittently Subjective Date/time seen: 03/22/22 12:53 Respiratory status appears stable at this time (remains on 2L oxygen by nasal cannula); concerns noted about difficulty swallowing so evaluation ordered; no acute distress noted; no issues/events overnight or earlier this morning. Exam Narrative: General: WD/WN male in NAD Heart: normal S1 and S2; no rub Lungs: clear to auscultation Abdomen: soft, nontender, nondistended, positive bowel sounds Extremities: no cyanosis or clubbing; no edema Skin: warm and intact Objective Data Vital Signs Vital Signs: Vital Signs Temp Pulse Resp BP Pulse Ox O2 Del Method O2 Flow Rate 05/26/22 08:20 79 20 03/22/22 08:09 97 Nasal Cannula 2 03/22/22 08:07 84 20 03/22/22 08:00 70 03/22/22 07:56 95 Nasal Cannula 2 03/22/22 03:58 36.6 C 68 17 119/68 99 03/22/22 02:13 75 20 03/22/22 02:03 71 20 03/21/22 23:19 112 H 22 H 97 BiPAP 03/21/22 20:00 Nasal Cannula 3 03/21/22 20:51 77 20 03/21/22 20:38 69 20 03/21/22 19:14 35.8 C L 107 H 16 128/70 97 Intake/Output Intake/Output: Intake & Output 03/19/22 03/20/22 03/21/22 03/22/22 23:59 23:59 23:59 23:59 Intake Total 5 1999 1150 340 Output Total 4520 3527 1570 400 Balance -585 525 -425 -60 Meds/Results Medications: Active Medications Generic Name Dos
--- NOTE | 2022-03-22 14:23 | PCSTNOTE ---
Attempted to see the patient, however respiratory was present for a breathing treatment. ST will attempt later today.
[2022-03-22 14:26] LABS: Glucose Point of Care 239 mg/dl (65-105)
[2022-03-22 16:10] LABS: Albumin 3.3 g/dL (3.8-4.8); Alpha 1 Globulin 0.3 g/dL (0.2-0.3); Alpha 2 Globulin 0.6 g/dL (0.5-0.9); Beta 1 Globulin 0.4 g/dL (0.4-0.6); Gamma Globulin 0.7 g/dL (0.8-1.7); Protein, Total 5.6 g/dL (6.1-8.1)
--- NOTE | 2022-03-22 17:29 | PCSTNOTE ---
Please refer to the Bedside Swallow Evaluation in the EMR. Please note, silent aspiration cannot be ruled out at bedside.
[2022-03-22 17:34] LABS: Glucose Point of Care 242 mg/dl (65-105)
[2022-03-22] MEDS: traZODone HCL 50 MG TABLET PO (20:05)
[2022-03-22] MEDS: ACETAMINOPHEN 500 MG TABLET 1000 MG PO (21:25)
[2022-03-23] VITALS (14 sets, daily range): BP systolic 133–134; BP diastolic 55–87; PULSE 55–83; RESP 18–20; TEMP 35.7–36.7; O2SAT 96–99
[2022-03-23] MEDS: ALBUTEROL SULFATE NEB 2.5 MG/3 ML INH 5 MG INHALATION ×4 (02:19→19:37)
[2022-03-23] MEDS: IPRATROPIUM BR 0.02% INH SOLN 0.5 MG/2.5 ML VIAL INHALATION ×4 (02:19→19:37)
[2022-03-23 05:45] LABS: Osmolality, Urine 180 mOsm/kg (50-1200)
[2022-03-23 06:00] LABS: Albumin Level 3.5 g/dL (3.5-5.1); Anion Gap 6 mmol/L (8-16); Blood Urea Nitrogen 20 mg/dL (9-20); Calcium 8.2 mg/dL (8.4-10.2); Carbon Dioxide 29 mmol/L (22-30); Chloride 98 mmol/L (98-107); Estimated CRCL calculation 76 ml/min; Estimated Glomerular Filt Rate > 60; Glucose 181 mg/dL (65-110); Phosphorus 2.4 mg/dL (2.5-4.5); Potassium 3.7 mmol/L (3.4-5.0); Sodium 133 mmol/L (137-145)
[2022-03-23 07:47] LABS: Glucose Point of Care 154 mg/dl (65-105)
[2022-03-23] MEDS: UMECLIDINIUM BROMIDE 62.5 MCG ELLIPTA 1 PUFF INHALATION (08:19)
[2022-03-23] MEDS: ASPIRIN 325 MG ENTERIC TABLET PO (08:23)
[2022-03-23] MEDS: CALCIUM ACETATE 667 MG TABLET PO ×3 (08:23→16:23)
[2022-03-23] MEDS: predniSONE 20 MG TABLET 60 MG PO (08:23)
[2022-03-23] MEDS: FOLIC ACID 1 MG TABLET PO (08:24)
[2022-03-23] MEDS: METOPROLOL TARTRATE 25 MG TABLET PO (08:24)
[2022-03-23] MEDS: SERTRALINE HCL 50 MG TABLET PO (08:24)
[2022-03-23] MEDS: SODIUM CHLORIDE 500 MG TABLET PO ×2 (08:25→16:23)
[2022-03-23] MEDS: GABAPENTIN 100 MG CAPSULE PO ×3 (08:25→16:23)
[2022-03-23] MEDS: MAGNESIUM OXIDE 400 MG TABLET PO (08:25)
[2022-03-23] MEDS: amLODIPine BESYLATE 5 MG TABLET 10 MG PO (08:26)
[2022-03-23] MEDS: SIMVASTATIN 10 MG TABLET PO (08:26)
[2022-03-23] MEDS: HEPARIN SODIUM 5,000 UNITS/ML VIAL 5000 UNITS SUB-Q ×2 (08:28→19:57)
[2022-03-23] MEDS: traMADol HCL (*CRX) 50 MG TABLET PO ×2 (08:31→18:26)
--- NOTE | 2022-03-23 10:08 | PCOTNOTE ---
Patient down for MBS. Will attempt later for OT.
--- NOTE | 2022-03-23 11:29 | PCSTNOTE ---
Please refer to the Modified Barium Swallow Evaluation in the EMR.
[2022-03-23 11:30] LABS: Glucose Point of Care 168 mg/dl (65-105)
--- NOTE | 2022-03-23 14:13 | P.PNIM_ITS ---
Progress Note: A&P Assessment and Plan (1) Acute on chronic respiratory failure with hypoxia and hypercapnia: Code(s): J96.21 - Acute and chronic respiratory failure with hypoxia; J96.22 - Acute and chronic respiratory failure with hypercapnia Status: Acute Assessment and Plan: Appears to be breathing better. Now on supplemental oxygen. Respiratory component of Acid-base appears to be improved. likely discharge in 1-2 days. Will need home oxygen about (2) Acute hyponatremia: Code(s): E87.1 - Hypo-osmolality and hyponatremia Status: Acute Assessment and Plan: Hypervolemic hypo natremia Will diurese (3) Acute kidney injury: Code(s): N17.9 - Acute kidney failure, unspecified Status: Acute Assessment and Plan: Likely to be cardiorenal syndrome Continue to monitor BUN and creatinine Nephrology consult. (4) Acute hyperkalemia: Code(s): E87.5 - Hyperkalemia Status: Acute Assessment and Plan: Monitor (5) Alcohol abuse: Code(s): F10.10 - Alcohol abuse, uncomplicated Status: Acute Assessment and Plan: CIWA protocol as needed (6) COPD exacerbation: Code(s): J44.1 - Chronic obstructive pulmonary disease with (acute) exacerbation Status: Chronic Assessment and Plan: Improved. Continue respiratory treatments. (7) Type 2 diabetes mellitus: Qualifiers: Diabetes mellitus care home insulin use: without care home use Diabetes mellitus complication detail: with foot ulcer Code(s): E11.9 - Type 2 diabetes mellitus without complications Status: Chronic Assessment and Plan: Diet controlled Blood sugars controlled (8) Elevated troponin: Code(s): R77.8 - Other specified abnormalities of plasma proteins Status: Acute Assessment and Plan: Cardiology consult (9) Amputation of left lower extremity below knee: Code(s): S88.112A - Complete traumatic amputation at level between knee and ankle, left lower leg, initial encounter Status: Acute Assessment and Plan: Supportive care Fall precautions (10) Persistent atrial fibrillation: Code(s): I48.19 - Other persistent atrial fibrillation Status: Acute Assessment and Plan: Monitor (11) Smoker: Code(s): F17.200 - Nicotine dependence, unspecified, uncomplicated Status: Acute Assessment and Plan: Nicotine patch as needed (12) Lactic acid acidosis: Code(s): E87.2 - Acidosis Status: Acute Assessment and Plan: improved. Additional Plan Likely discharge in 1-2 days 03/21/2022 interval history: patient is 76-year-old with history of chronic atrial fibrillation presented with shortness of breath secondary to hypercapnic respiratory failure, due to COPD and being treated with with methylprednisone and updraft, patient clinical symptoms are improved will taper methylprednisone, will continue to monitor, patient with a fib rate is controlled, patient with hyponatremia most likely secondary to alcohol abuse, the sodium is trending up, will continue to monitor, patient remains clinically stable, will continue PT OT and further recommendation to follow. 03/22/2022 interval history: patient is 76-year-old with history of chronic atrial fibrillation presented with shortness of breath secondary to hypercapnic respiratory failure, due to COPD and being treated with with methylprednisone and updraft, patient clinical symptoms are improved will taper methylprednisone from 60mg q6 to p
[2022-03-23] MEDS: INSULIN ASPART (*BKC) 100 UNITS/ML SUB-Q (16:39)
[2022-03-23 16:54] LABS: Glucose Point of Care 205 mg/dl (65-105)
[2022-03-23] MEDS: traZODone HCL 50 MG TABLET PO (19:58)
[2022-03-23] MEDS: METOPROLOL TARTRATE 12.5 MG TABLET PO (19:58)
[2022-03-23 20:26] LABS: Glucose Point of Care 223 mg/dl (65-105)
[2022-03-24] VITALS (10 sets, daily range): BP systolic 123–143; BP diastolic 67–78; PULSE 55–94; RESP 16–20; TEMP 36.1–36.7; O2SAT 97–100
[2022-03-24] MEDS: traMADol HCL (*CRX) 50 MG TABLET PO (00:50)
[2022-03-24] MEDS: IPRATROPIUM BR 0.02% INH SOLN 0.5 MG/2.5 ML VIAL INHALATION ×3 (01:00→13:37)
[2022-03-24] MEDS: ALBUTEROL SULFATE NEB 2.5 MG/3 ML INH 5 MG INHALATION ×3 (01:00→13:36)
[2022-03-24 05:52] LABS: Albumin Level 3.5 g/dL (3.5-5.1); Anion Gap 2 mmol/L (8-16); Blood Urea Nitrogen 16 mg/dL (9-20); Calcium 8.3 mg/dL (8.4-10.2); Carbon Dioxide 34 mmol/L (22-30); Chloride 95 mmol/L (98-107); Estimated CRCL calculation 76 ml/min; Estimated Glomerular Filt Rate > 60; Glucose 111 mg/dL (65-110); Phosphorus 1.9 mg/dL (2.5-4.5); Potassium 3.7 mmol/L (3.4-5.0); Sodium 131 mmol/L (137-145)
[2022-03-24 07:00] LABS: Total Protein/Creatinine Ratio 1080 mg/g creat (22-128)
[2022-03-24] MEDS: UMECLIDINIUM BROMIDE 62.5 MCG ELLIPTA 1 PUFF INHALATION (07:21)
[2022-03-24 07:34] LABS: Glucose Point of Care 114 mg/dl (65-105)
[2022-03-24] MEDS: MAGNESIUM OXIDE 400 MG TABLET PO (08:47)
[2022-03-24] MEDS: GABAPENTIN 100 MG CAPSULE PO (08:48)
[2022-03-24] MEDS: amLODIPine BESYLATE 5 MG TABLET 10 MG PO (08:48)
[2022-03-24] MEDS: METOPROLOL TARTRATE 12.5 MG TABLET PO (08:48)
[2022-03-24] MEDS: SIMVASTATIN 10 MG TABLET PO (08:48)
[2022-03-24] MEDS: HEPARIN SODIUM 5,000 UNITS/ML VIAL 5000 UNITS SUB-Q (08:48)
[2022-03-24] MEDS: predniSONE 20 MG TABLET 60 MG PO (08:48)
[2022-03-24] MEDS: SODIUM CHLORIDE 500 MG TABLET PO (08:49)
[2022-03-24] MEDS: SERTRALINE HCL 50 MG TABLET PO (08:49)
[2022-03-24] MEDS: ASPIRIN 325 MG ENTERIC TABLET PO (08:49)
[2022-03-24] MEDS: FOLIC ACID 1 MG TABLET PO (08:49)
[2022-03-24] MEDS: CALCIUM ACETATE 667 MG TABLET PO (08:50)
--- NOTE | 2022-03-24 11:00 | PM.DS ---
DS: Admitting Diagnosis Discharge Date Admitting Diagnosis 1) COPD Exacerbation 2) Chronic Hyponatremia 3) Hyperkalemia 4) Chronic Respiratory Failure with hypoxia 5) DM2 6) Frequent Falls DS: Discharge Diagnosis Discharge Diagnosis (1) Acute on chronic respiratory failure with hypoxia and hypercapnia: Code(s): J96.21 - Acute and chronic respiratory failure with hypoxia; J96.22 - Acute and chronic respiratory failure with hypercapnia Status: Acute Assessment and Plan: Appears to be breathing better. Now on supplemental oxygen. Respiratory component of Acid-base appears to be improved. likely discharge in 1-2 days. Will need home oxygen about (2) Acute hyponatremia: Code(s): E87.1 - Hypo-osmolality and hyponatremia Status: Acute Assessment and Plan: Hypervolemic hypo natremia Will diurese (3) Acute kidney injury: Code(s): N17.9 - Acute kidney failure, unspecified Status: Acute Assessment and Plan: Likely to be cardiorenal syndrome Continue to monitor BUN and creatinine Nephrology consult. (4) Acute hyperkalemia: Code(s): E87.5 - Hyperkalemia Status: Acute Assessment and Plan: Monitor (5) Alcohol abuse: Code(s): F10.10 - Alcohol abuse, uncomplicated Status: Acute Assessment and Plan: CIWA protocol as needed (6) COPD exacerbation: Code(s): J44.1 - Chronic obstructive pulmonary disease with (acute) exacerbation Status: Chronic Assessment and Plan: Improved. Continue respiratory treatments. 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: without long-term use Diabetes mellitus complication detail: with foot ulcer Code(s): E11.9 - Type 2 diabetes mellitus without complications Status: Chronic Assessment and Plan: Diet controlled Blood sugars controlled (8) Elevated troponin: Code(s): R77.8 - Other specified abnormalities of plasma proteins Status: Acute Assessment and Plan: Cardiology consult (9) Amputation of left lower extremity below knee: Code(s): S88.112A - Complete traumatic amputation at level between knee and ankle, left lower leg, initial encounter Status: Acute Assessment and Plan: Supportive care Fall precautions (10) Persistent atrial fibrillation: Code(s): I48.19 - Other persistent atrial fibrillation Status: Acute Assessment and Plan: Monitor (11) Smoker: Code(s): F17.200 - Nicotine dependence, unspecified, uncomplicated Status: Acute Assessment and Plan: Nicotine patch as needed (12) Lactic acid acidosis: Code(s): E87.2 - Acidosis Status: Acute Assessment and Plan: improved. DS: Summary Hospital Course Reason for hospitalization: Shortness of breath Hospital Course: 76 years old male was admitted complained of any shortness of breath patient was found acute respiratory failure with hypoxia. Patient was given nebulizer treatment oxygen. Patient was also given antibiotics. During the stay in the hospital patient did have any complication. Today patient is feeling better so patient discharged home stable condition. 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 amputatio n of left lower ex tremity below the knee SKIN: nonjaun diced Neuro: gross ly intact. Const: General: cooperative, comfortable, well developed, alert, awake and acute distress mild Nutritional Appearance: thin Orien
--- NOTE | 2022-03-24 11:16 | PCNWS ---
Weekly nutritional screen. Patient is on a heart healthy level 6 soft and bite sized diet, level 3 moderately thick liquids and is tolerating current diet with adequate intake, 100% all meals. Wt is 86.7kg - stable since admission. +BM 03/21. No skin issues noted. No nutritional needs at this time.
[2022-03-24 11:43] LABS: Glucose Point of Care 142 mg/dl (65-105)
--- NOTE | 2022-03-24 15:44 | PC.NURSE ---
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 No answer at number provided.
[2022-03-25 11:10] LABS: Chloride Rand Ur 20 mmol/L (32-290); Chloride/Creatinine Rand Ur 80 (23-275); Creatinine Random Urine 25 mg/dL (20-320)
== END 2022-03-24 17:01 | disposition home or self-care (01) | DRG 189 ==
LOC: ANHED 03-19 00:44 → ANHIMU 03-19 03:34 → ANH2MED 03-21 08:01 → ANHIMU 03-27 12:28
PROVIDERS: Chiropractor; Internal Medicine Nephrology; Admitting Provider Internal Medicine; Emergency Provider Emergency Medicine; PCP Emergency Medicine; Visit Provider Internal Medicine
DX: J96.21 Acute and chronic respiratory failure with hypoxia (principal); E87.2 Acidosis; I50.32 Chronic diastolic (congestive) heart failure; E87.1 Hypo-osmolality and hyponatremia; N17.9 Acute kidney failure, unspecified; J43.9 Emphysema, unspecified; R13.10 Dysphagia, unspecified; Z20.822 Contact with and (suspected) exposure to COVID-19; D64.9 Anemia, unspecified; E87.5 Hyperkalemia; E78.2 Mixed hyperlipidemia; E11.42 Type 2 diabetes mellitus with diabetic polyneuropathy; F17.210 Nicotine dependence, cigarettes, uncomplicated; F10.20 Alcohol dependence, uncomplicated; F41.9 Anxiety disorder, unspecified; F32.A Depression, unspecified; H91.90 Unspecified hearing loss, unspecified ear; I27.20 Pulmonary hypertension, unspecified; K58.9 Irritable bowel syndrome, unspecified; K21.9 Gastro-esophageal reflux disease without esophagitis; M19.90 Unspecified osteoarthritis, unspecified site; N40.0 Benign prostatic hyperplasia without lower urinary tract symptoms; R77.8 Other specified abnormalities of plasma proteins; R29.6 Repeated falls; Y90.8 Blood alcohol level of 240 mg/100 ml or more; Z79.82 Long term (current) use of aspirin; Z86.73 Personal history of transient ischemic attack (TIA), and cerebral infarction without residual deficits; Z86.14 Personal history of Methicillin resistant Staphylococcus aureus infection; Z89.512 Acquired absence of left leg below knee; Z98.42 Cataract extraction status, left eye; Z98.41 Cataract extraction status, right eye; Z96.641 Presence of right artificial hip joint; Z99.81 Dependence on supplemental oxygen; Z89.421 Acquired absence of other right toe(s)
CPT/HCPCS: 36415; 36600; 51701; 71045; 76775; 80048; 80053; 80069; 80307; 81001; 81050; 82010; 82436; 82533; 82550; 82570; 82805; 82948; 83605; 83735; 83880; 83930; 83935; 84100; 84155; 84156; 84165; 84166; 84295; 84300; 84443; 84484; 85025; 85027; 85610; 85730; 86334; 86335; 92610; 92611; 93005; 94002; 94003; 94640; 96361; 96365; 96375; 97110; 97161; 97165; 97530; 99285; A9270; C9803; J0131; J0461; J0610; J1644; J1815; J1940; J2405; J2930; J7030; J7040; J7070; J7512; U0003; U0005

== ENCOUNTER 2022-03-31 23:26 | Observation (INO) | payer OTHER, MEDICAID, SELFPAY ==
--- NOTE | ~2022-03-31 | CT_ITS ---
EXAMINATION: CT cervical spine wo con DATE: 04/01/2022 01:09 INDICATION: fall, head injury TECHNIQUE: Computed tomography (CT) of the cervical spine was performed without intravenous contrast. Automated exposure control and iterative reconstruction technique were employed. The dose-length pro duct was 458.67 mGy-cm. COMPARISON: 11/06/2021. FINDINGS: Counting reference: Craniocervical junction. There are seven cervical type vertebral bodies. Anatomic Variants: None. Vertebral Body Alignment: Intact. Craniocervical junction: Severe degenerative change. Alignment intact. Osseous structures/fracture: No evidence of a lytic or blastic process in the visualized spine. N o evidence of acute fracture. Cervical soft tissues: The paraspinal soft tissues planes are maintained. Biapical pleural scarrin g. Degenerative changes: Multilevel mild-moderate degenerative disc disease. Multilevel moderate facet h ypertrophy. IMPRESSION: No acute fracture or traumatic malalignment in the cervical spine. Reviewed, dictated and finalized at location K.
--- NOTE | ~2022-03-31 | XR_ITS ---
EXAMINATION: XR chest 2V DATE: 04/01/2022 00:01 INDICATION: Weakness, fall TECHNIQUE: AP view of the chest is obtained. COMPARISON: 03/18/2022 FINDINGS: There is mild atelectasis of the lung bases. There is no pleural effusion or pneumothorax. Cardiomegaly is noted. There is moderate osteoarthritis of the right shoulder. IMPRESSION: 1. Mild atelectasis of the lung bases. Reviewed, dictated and finalized at location A.
--- NOTE | ~2022-03-31 | CT_ITS ---
EXAMINATION: CT brain wo con INDICATION: Head injury COMPARISON: 12/29/2021 TECHNIQUE: Standard unenhanced head CT. The dose-length product (DLP) was 983.67 mGy-cm. The mA was a djusted according to patient size. Iterative reconstruction technique was employed. FINDINGS: There is no acute intraparenchymal hemorrhage. No evidence of mass lesion. No evidence of a cute infarction. And old right frontal lobe infarct is again noted. There is mild periventricular and subcortical hypodensity probably related to small vessel ischemic disease. There is mild prominence of the sulci and ventricles related to cerebral atrophy. Intracranial calcified cerebral atherosclero sis is noted. There are no extra-axial collections. There is no mass effect or midline shift. Changes in the globes are likely from ocular lens surgery. There is mild mucosal thickening of the paranasal sinuses. IMPRESSION: 1. Old right frontal lobe infarct without acute intracranial abnormality. 2. Age related findings. Reviewed, dictated and finalized at location A.
[2022-03-31 23:24] VITALS: BP 122/64; PULSE 64; RESP 16; TEMP 36.5; O2SAT 100
[2022-03-31 23:34] LABS: Glucose Point of Care 58 mg/dl (65-105)
--- NOTE | 2022-03-31 23:35 | ECG_ITS ---
Measurements Intervals [place] Rate: 62 P: AR: 0 QRS: -2 QRSD: 82 T: 66 QT: 418 QTc: 427 Interpretive Statements ATRIAL FIBRILLATION LOW QRS VOLTAGE IN PRECORDIAL LEADS [QRS DEFLECTION < 1.0 mV IN CHEST LEADS] POOR R-WAVE PROGRESSION, POSSIBLE OLD ANTEROSEPTAL NC NO CHANGE COMPARED TO PRIOR TRACING Electronically Signed On 04-01-2022 8:58:12 CDT by Connie Gray M.D.
--- NOTE | 2022-03-31 23:37 | PC.NURSE ---
Per EDP Chan, meal tray given
--- NOTE | 2022-03-31 23:46 | ED.FALL ---
HPI - Fall General Chief Complaint: Fall <ELXI Meadows Last Filed: 04/01/22 03:01> Stated Complaint: FALLS, HYPOGLYCEMIA <LEXI Meadows Last Filed: 04/01/22 03:01> Time Seen by Provider: 03/31/22 23:35 <LEXI Meadows Last Filed: 04/01/22 03:01> Source: patient <LEXI Meadows Last Filed: 04/01/22 03:01> Mode of arrival: EMS <LEXI Meadows Last Filed: 04/01/22 03:01> Limitations: other (poor historian) <LEXI Meadows Last Filed: 04/01/22 03:01> History of Present Illness HPI Narrative: This is a 76 year old male that presents to the ER for a fall today. Reports he fell getting out of bed. Reports hitting his head. Denies loss of consciousness. No focal areas of pain. Reports he does not feel safe at home and feels he needs rehab. Patient noted to be hypoglycemic by EMS. Denies vision changes, vomiting, or numbness. <LEXI Meadows Last Filed: 04/01/22 03:01> Related Data Home Medications: Home Medications Medication Instructions Recorded Confirmed acetaminophen 500 mg tablet 1,000 mg PO Q6-8H PRN Mild Pain 12/02/20 04/01/22 (1-3) Or Fever aspirin 325 mg tablet,delayed 325 mg PO DAILY 12/02/20 04/01/22 release folic acid 1 mg tablet 1 mg PO DAILY 12/02/20 04/01/22 gabapentin 100 mg capsule 100 mg PO TID 11/06/21 04/01/22 <LEXI Meadows Last Filed: 04/01/22 03:01> Allergies/Adverse Reactions: Allergies Allergy/AdvReac Type Severity Reaction Status Date / Time niacin Allergy Intermediate Rash/itchin Verified 03/18/22 22:20 g hydrocodone [From Eva] AdvReac Confusion Verified 03/18/22 22:20 <LEXI Meadows Last Filed: 04/01/22 03:01> Review of Systems Review of Systems: CONSTITUTIONAL: Denies fever EYES: Denies visual changes GASTROINTESTINAL: Denies vomiting MUSCULOSKELETAL: Denies back pain, joint pain, or myalgia. NEUROLOGIC: Denies numbness, or weakness. <Antonietta Chu PA-C - Last Filed: 04/01/22 03:01> All systems reviewed & are unremarkable except as noted in HPI and below <Antonietta Chu PA-C - Last Filed: 04/01/22 03:01> [facility] Past Medical History Medical History: Medical History Alcohol abuse History of alcohol abuse though he has cut back significantly in the last 6 months or so. Now drinking a couple of beers 5 days a week. Anxiety Asthma Benign prostatic hyperplasia Cerebrovascular accident Chronic abscess of lower leg Chronic anemia Chronic hyponatremia Chronic obstructive pulmonary disease Chronic respiratory failure with hypoxia, on home O2 therapy Depression Diabetic foot ulcer Diabetic peripheral neuropathy Diastolic congestive heart failure Former smoker Gastroesophageal reflux disease Hearing loss Hypertension Ichthyosis vulgaris Irritable bowel syndrome Mixed hyperlipidemia MRSA (methicillin resistant Staphylococcus aureus) septicemia (09/2020) Osteoarthritis Osteomyelitis History of osteomyelitis of both feet requiring multiple amputations. Pancreatitis (03/2021) Persistent atrial fibrillation Not on long-term anticoagulation. Takes aspirin 325 mg daily. Pulmonary hypertension Echocardiogram on 06/08/2021 showed normal left ventricular systolic function with an EF estimated 65 to 70%, mildly increased LV wall thickness, severely enlarged right atrial chamber, mildly enlarged left atrial chamber, mild mitral valve and trace tricuspid valve regurgitation, and mild pulmonary hypertension with an estimated pulmonary arterial systolic pressure of 35 mmHg. Sacrum and coccyx fracture Type 2 diabetes mellitus Hemoglobin A1c was 6.6% on 06/09/2021. <Antonietta Chu PA-C - Last Filed: 04/01/22 03:01> Surgical History Surgical History: Surgical History History of bilateral cataract extraction History of inci
--- NOTE | 2022-03-31 23:52 | PC.NURSE ---
Pt to imaging via stretcher at this time
[2022-04-01] VITALS (14 sets, daily range): BP systolic 80–155; BP diastolic 40–77; PULSE 45–91; RESP 16–22; TEMP 36.4–36.6; O2SAT 94–97; BMI 22.2
--- NOTE | 2022-04-01 00:25 | PC.NURSE ---
Pt attempted to provide urine sample at this time. Unsuccessful.
[2022-04-01 00:33] LABS: Basophils Percent Auto 0.3 % (0.2-1.2); Eosinophils Percent Auto 0.3 % (0-4.4); Hematocrit 38.7 % (42.0-52.0); Hemoglobin 11.9 g/dL (14.0-18.0); Immature Granulocyte Absolute 0.11 K/mm3 (0.00-0.031); Immature Granulocyte Percent A 1.1 % (0-0.5); Lymphocytes Absolute Auto 1.66 K/mm3 (0.9-3.2); Lymphocytes Percent Auto 16.2 % (18.3-44.2); Mean Corpuscular HGB Conc 30.7 g/dl (32-36); Mean Corpuscular Hemoglobin 26.7 pg (26-34); Mean Platelet Volume 8.7 fl (7.4-10.4); Monocytes Absolute Auto 0.5 K/mm3 (0.1-0.6); Monocytes Percent Auto 4.5 % (2.6-8.5); Neutrophils Percent Auto 77.6 % (45.5-73.1); Platelet Count Result 265 k/mm3 (150-375); Red Blood Count 4.45 M/mm3 (4.6-6.20); Red Cell Distribution Width 15.7 % (11.5-14.5); White Blood Count 10.3 K/mm3 (4.5-10.0)
[2022-04-01 00:37] LABS: Ethanol 255 mg/dL (<10)
[2022-04-01 00:39] LABS: Alanine Aminotransferase 25 U/L (6-50); Albumin Level 3.6 g/dL (3.5-5.1); Alkaline Phosphatase 130 U/L (38-126); Anion Gap 10 mmol/L (8-16); Aspartate Amino Transferase 44 U/L (17-59); Bilirubin,Total 0.4 mg/dL (0.2-1.3); Blood Urea Nitrogen 14 mg/dL (9-20); Calcium 7.7 mg/dL (8.4-10.2); Carbon Dioxide 23 mmol/L (22-30); Chloride 104 mmol/L (98-107); Estimated CRCL calculation 62 ml/min; Estimated Glomerular Filt Rate > 60; Glucose 82 mg/dL (65-110); Potassium 4.2 mmol/L (3.4-5.0); Sodium 137 mmol/L (137-145)
--- NOTE | 2022-04-01 00:51 | PC.NURSE ---
Pt to CT via stretcher at this time.
[2022-04-01 00:53] LABS: Appearance Urine Clear (Clear); Bilirubin Urine Negative (Negative); Color Urine Yellow (Yellow); Glucose Urine UA Negative (Negative); Ketones Urine 1+ mg/dL (Negative); Leukocyte Esterase Ur Negative LEU/UL (Negative); Nitrate Urine Negative (Negative); Protein Urine 3+ mg/dL (Negative); Specific Grav Ur 1.025 (1.001-1.035); Urobilinogen Urine 0.2 mg/dL (<2.0); pH Urine 5.5 (5.0-9.0)
[2022-04-01 00:54] LABS: Bacteria Urine Trace /hpf; Mucus Urine Rare /lpf; RBC Urine 0-2 /hpf (0-2); Squamous Epithelial Cell Urine Rare /hpf (Few); WBC Urine 0-3 /hpf
[2022-04-01 00:55] LABS: Add Urine Microscopic? YES; Blood Urine Trace (Negative)
[2022-04-01] MEDS: SODIUM CHLORIDE 0.9% IV 500 ML 999 ML IV CONT (03:10)
[2022-04-01] MEDS: traMADol HCL (*CRX) 50 MG TABLET PO ×3 (08:43→23:29)
[2022-04-01] MEDS: FUROSEMIDE 40 MG TABLET PO (08:45)
[2022-04-01] MEDS: ASPIRIN 325 MG ENTERIC TABLET PO (08:45)
[2022-04-01] MEDS: FOLIC ACID 1 MG TABLET PO (08:46)
[2022-04-01] MEDS: SIMVASTATIN 10 MG TABLET PO (08:46)
[2022-04-01] MEDS: GABAPENTIN 100 MG CAPSULE PO ×3 (08:46→16:36)
[2022-04-01 08:47] LABS: Glucose Point of Care 209 mg/dl (65-105)
[2022-04-01] MEDS: MAGNESIUM OXIDE 400 MG TABLET PO (08:47)
[2022-04-01] MEDS: METOPROLOL TARTRATE 25 MG TABLET PO ×2 (08:50→20:53)
[2022-04-01] MEDS: amLODIPine BESYLATE 5 MG TABLET 10 MG PO (08:50)
--- NOTE | 2022-04-01 09:30 | PM.IMHP ---
H&P: HPI History of Present Illness Date/Time: 04/01/22 09:30 Chief Complaint: frequent falls Hypoglycemia Narrative: patient is 76-year-old male with past medical history neuropathy, COPD on chronic oxygen, Diabetes mellitus type 2, diastolic heart failure, IBS, AFib and pulmonary hypertension. he presented to [facility] due to frequent falls. apparently the patient fell out of bed and reportedly hit his head, he denies any loss of consciousness. He denies any focal areas of pain. Patient reports that he does not feel safe at home he feels as he needs skilled rehab facility. Upon arrival to the emergency department the patient was noted be hypoglycemic and administered medications through his IV. Patient reportedly lives at home alone in a tray apartment and he receives Meals on wheels. Patient reports he has been for and has 7 children. He denies any illicit drug use. patient does drink 2 beers perhaps 5 nights a week at the most.?--WILL need to monitor CIWAs. while in the emergency department labs and imaging were obtained. WBC 10.3, hemoglobin 11.9, hematocrit 38.7, platelet 267, sodium 137 and potassium 4.2, normal renal function and LFTs. UA was not significant for urinary tract infection. Patient did have a chest x-ray performed did not reveal acute cardiopulmonary abnormalities. CT of the head had no evidence of hemorrhage, edema or mass effect or midline shift. No acute findings found. CT cervical spine did not reveal acute abnormalities. EKG read normal rate with AFib and no ST changes. Patient is being admitted for further evaluation of generalized weakness, frequent falls, adult failure to thrive, hypoglycemia and alcohol abuse. patient's blood glucose will be monitored, he will be resumed on his home medications and physical therapy and occupational therapy to eval and treat. Case Management will be consulted for possible placement in a jail facility. Review of Systems Review of Systems: All systems reviewed & are unremarkable except as noted in HPI and below PMFSH Past Medical History Medical History Alcohol abuse History of alcohol abuse though he has cut back significantly in the last 6 months or so. Now drinking a couple of beers 5 days a week. Anxiety Asthma Benign prostatic hyperplasia Cerebrovascular accident Chronic abscess of lower leg Chronic anemia Chronic hyponatremia Chronic obstructive pulmonary disease Chronic respiratory failure with hypoxia, on home O2 therapy Depression Diabetic foot ulcer Diabetic peripheral neuropathy Diastolic congestive heart failure Former smoker Gastroesophageal reflux disease Hearing loss Hypertension Ichthyosis vulgaris Irritable bowel syndrome Mixed hyperlipidemia MRSA (methicillin resistant Staphylococcus aureus) septicemia (09/2020) Osteoarthritis Osteomyelitis History of osteomyelitis of both feet requiring multiple amputations. Pancreatitis (03/2021) Persistent atrial fibrillation Not on long-term anticoagulation. Takes aspirin 325 mg daily. Pulmonary hypertension Echocardiogram on 06/08/2021 showed normal left ventricular systolic function with an EF estimated 65 to 70%, mildly increased LV wall thickness, severely enlarged right atrial chamber, mildly enlarged left atrial chamber, mild mitral valve and trace tricuspid valve regurgitation, and mild pulmonary hypertension with an estimated pulmonary arterial systolic pressure of 35 mmHg. Sacrum and coccyx fracture Type 2 diabetes mellitus Hemoglobin A1c was 6.6% on 06/09/2021. Surgical History Surgical History History of bilateral cataract extraction History of incision and drainage Right hip abscess. 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 Heaton History of tonsillectomy History of total right hip arthroplasty (2002) Hist
[2022-04-01] MEDS: SERTRALINE HCL 50 MG TABLET PO (17:29)
[2022-04-01] MEDS: traZODone HCL 50 MG TABLET PO (20:53)
[2022-04-02] VITALS (11 sets, daily range): BP systolic 112–143; BP diastolic 61–76; PULSE 44–74; RESP 16–20; TEMP 36.3–36.9; O2SAT 96–98
[2022-04-02] MEDS: FUROSEMIDE 40 MG TABLET PO (08:31)
[2022-04-02] MEDS: ASPIRIN 325 MG ENTERIC TABLET PO (08:31)
[2022-04-02] MEDS: GABAPENTIN 100 MG CAPSULE PO ×2 (08:31→12:45)
[2022-04-02] MEDS: amLODIPine BESYLATE 5 MG TABLET 10 MG PO (08:31)
[2022-04-02] MEDS: UMECLIDINIUM BROMIDE 62.5 MCG ELLIPTA 1 PUFF INHALATION (08:31)
[2022-04-02] MEDS: FOLIC ACID 1 MG TABLET PO (08:31)
[2022-04-02] MEDS: MAGNESIUM OXIDE 400 MG TABLET PO (08:31)
[2022-04-02] MEDS: SIMVASTATIN 10 MG TABLET PO (08:32)
[2022-04-02] MEDS: traMADol HCL (*CRX) 50 MG TABLET PO ×2 (08:32→17:22)
[2022-04-02] MEDS: METOPROLOL TARTRATE 25 MG TABLET PO (08:32)
[2022-04-02 08:58] LABS: Basophils Percent Auto 0.3 % (0.2-1.2); Eosinophils Absolute Auto 0.2 K/mm3 (0-0.3); Eosinophils Percent Auto 1.5 % (0-4.4); Hematocrit 37.7 % (42.0-52.0); Hemoglobin 11.4 g/dL (14.0-18.0); Immature Granulocyte Absolute 0.05 K/mm3 (0.00-0.031); Immature Granulocyte Percent A 0.5 % (0-0.5); Lymphocytes Percent Auto 11.4 % (18.3-44.2); Mean Corpuscular HGB Conc 30.2 g/dl (32-36); Mean Corpuscular Hemoglobin 26.8 pg (26-34); Mean Corpuscular Volume 88.5 fl (80-100); Monocytes Absolute Auto 0.9 K/mm3 (0.1-0.6); Monocytes Percent Auto 8.9 % (2.6-8.5); Neutrophils Absolute Auto 8.2 K/mm3 (1.3-6.7); Neutrophils Percent Auto 77.4 % (45.5-73.1); Platelet Count Result 187 k/mm3 (150-375); Red Blood Count 4.26 M/mm3 (4.6-6.20); Red Cell Distribution Width 15.7 % (11.5-14.5); White Blood Count 10.6 K/mm3 (4.5-10.0)
[2022-04-02 09:13] LABS: Alanine Aminotransferase 21 U/L (6-50); Albumin Level 3.5 g/dL (3.5-5.1); Alkaline Phosphatase 98 U/L (38-126); Anion Gap 6 mmol/L (8-16); Aspartate Amino Transferase 28 U/L (17-59); Bilirubin,Total 0.8 mg/dL (0.2-1.3); Blood Urea Nitrogen 13 mg/dL (9-20); Calcium 7.6 mg/dL (8.4-10.2); Carbon Dioxide 28 mmol/L (22-30); Chloride 96 mmol/L (98-107); Estimated CRCL calculation 66 ml/min; Estimated Glomerular Filt Rate > 60; Glucose 193 mg/dL (65-110); Potassium 3.7 mmol/L (3.4-5.0); Sodium 130 mmol/L (137-145)
--- NOTE | 2022-04-02 09:54 | PM.DS ---
DS: Admitting Diagnosis Discharge Date 04/02/22 Admitting Diagnosis Adult failure to thrive Frequent falls Alcohol abuse DS: Discharge Diagnosis Discharge Diagnosis (1) Frequent falls: Code(s): R29.6 - Repeated falls Status: Acute Assessment and Plan: consult physical therapy and occupational therapy eval and treat Consult Case Management for possible placement to a [facility] facility (2) Adult failure to thrive: Code(s): R62.7 - Adult failure to thrive Status: Acute Assessment and Plan: 2/to above (3) Alcohol abuse: Code(s): F10.10 - Alcohol abuse, uncomplicated Status: Acute Assessment and Plan: initiate CIWA protocol Monitor neuro status, seizure precautions (4) Hypoglycemia: Code(s): E16.2 - Hypoglycemia, unspecified Status: Acute Assessment and Plan: Insulin Lispro sliding scale, Accu-checks qAc and HS and Hold oral hypoglycemics monitor for signs and symptoms of hypoglycemia, initiate hypo thick glycemia protocol when indicated Obtain a HgbA1c (5) Acute on chronic respiratory failure with hypoxia and hypercapnia: Code(s): J96.21 - Acute and chronic respiratory failure with hypoxia; J96.22 - Acute and chronic respiratory failure with hypercapnia Status: Acute Assessment and Plan: Monitor vital signs, I&Os, neuro status and patient is a fall risk Monitor serum electrolytes, cultures and CBC Monitor Oxygen saturation, Oxygen via NC; wean oxygen as tolerated, keep SpO2 greater than 88% patient wears home oxygen Resume home medications -- stable DS: Summary Hospital Course Reason for hospitalization: ?frequent falls Hypoglycemia Hospital Course: patient is 76-year-old male with past medical history neuropathy, COPD on chronic oxygen,? Diabetes mellitus type 2, diastolic heart failure, IBS, AFib and pulmonary hypertension. he presented to [facility] due to frequent falls.? apparently the patient fell out of bed and reportedly hit his head, he denies any loss of consciousness.? He denies any focal areas of pain.? Patient reports that he does not feel safe at home he feels as he needs? skilled rehab facility.? Upon arrival to the emergency department the patient was noted be hypoglycemic and administered medications through his IV.? Patient reportedly lives at home alone in a tray apartment and he receives Meals on wheels.? Patient reports he has been for and has 7 children.? He denies any illicit drug use. ? patient does drink 2 beers perhaps 5 nights a week at the most.?--WILL need to monitor CIWAs. ? while in the emergency department labs and imaging were obtained.? WBC 10.3, hemoglobin 11.9, hematocrit 38.7, platelet 267, sodium 137 and potassium 4.2, normal renal function and LFTs.? UA was not significant for urinary tract infection.? Patient did have a chest x-ray performed did not reveal acute cardiopulmonary abnormalities.? CT of the head had no evidence of hemorrhage, edema or mass effect or midline shift.? No acute findings found.? CT cervical spine did not reveal acute abnormalities.? EKG read normal rate with AFib and no ST changes.? Patient is being admitted for further evaluation of generalized weakness, frequent falls, adult failure to thrive, hypoglycemia and alcohol abuse. ? patient's blood glucose will be monitored, he will be resumed on his home medications and physical therapy and occupational therapy to eval and treat.? Case Management will be consulted for possible placement in a [facility] facility. During the patient's admission his home medications were resumed and case management worked on finding skilled placement for the patient. Daughter was agreeable to patient going to skilled therapy rehab. However the patient was worried about his finances and his blood pressure checked being taken away from him. He had great concerns. Status at Discharge Cognitive/behavioral statu
[2022-04-02 15:45] LABS: EDCOVIDSCREEN Negative (Negative)
== END 2022-04-02 23:10 ==
LOC: ANHED 04-01 03:01 → ANH2MED 04-01 03:55
PROVIDERS: Physician Assistant; Admitting Provider Internal Medicine; Emergency Provider General Practice; PCP Emergency Medicine; Visit Provider Nurse Practitioner Family
DX: S09.90XA Unspecified injury of head, initial encounter (principal); W06.XXXA Fall from bed, initial encounter; R62.7 Adult failure to thrive; F10.10 Alcohol abuse, uncomplicated; E11.649 Type 2 diabetes mellitus with hypoglycemia without coma; R33.9 Retention of urine, unspecified; J96.21 Acute and chronic respiratory failure with hypoxia; J96.22 Acute and chronic respiratory failure with hypercapnia; R29.6 Repeated falls; Z79.82 Long term (current) use of aspirin; Z87.891 Personal history of nicotine dependence; K21.9 Gastro-esophageal reflux disease without esophagitis; J44.9 Chronic obstructive pulmonary disease, unspecified; Z99.81 Dependence on supplemental oxygen; I50.30 Unspecified diastolic (congestive) heart failure; E11.40 Type 2 diabetes mellitus with diabetic neuropathy, unspecified; I11.0 Hypertensive heart disease with heart failure; I48.19 Other persistent atrial fibrillation; Z20.822 Contact with and (suspected) exposure to COVID-19
CPT/HCPCS: 36415; 70450; 71046; 72125; 80053; 80307; 81001; 82948; 85025; 87426; 93005; 94640; 96360; 97161; 97165; 99285; A9270; C9803; G0378; J7040

== ENCOUNTER 2022-04-25 18:44 | Emergency (ER) | payer OTHER, MEDICAID, SELFPAY ==
--- NOTE | ~2022-04-25 | XR_ITS ---
EXAM: XR knee RT min 4V DATE: 04/25/2022 19:52 HISTORY: knee injury after fall . COMPARISON: 07/10/2016, 06/15/2015. FINDINGS: Normal mineralization. No fracture or dislocation. No lytic or blastic lesion. Moderate ri ght knee osteoarthritis. No erosion or periosteal change. Soft tissues within normal limits. IMPRESSION: No acute osseous finding in the right knee. Reviewed, dictated and finalized at location K.
[2022-04-25 18:45] VITALS: BP 139/79; PULSE 78; RESP 20; TEMP 36.8; O2SAT 100
--- NOTE | 2022-04-25 18:50 | ECG_ITS ---
Measurements Intervals [place] Rate: 72 P: ND: 0 QRS: 52 QRSD: 86 T: 34 QT: 397 QTc: 434 Interpretive Statements ATRIAL FIBRILLATION WITH ABERRANT CONDUCTION OR VENTRICULAR PREMATURE COMPLEXES ANTEROSEPTAL MYOCARDIAL INFARCTION , PROBABLY OLD [40+ ms Q WAVE IN V1-V4] COMPARED TO ECG 03/31/2022 23:44:26 ABERRANT CONDUCTION OF SUPRAVENTRICULAR BEAT(S) NOW PRESENT Electronically Signed On 04-25-2022 22:51:54 CDT by Connie Gray M.D.
--- NOTE | 2022-04-25 19:08 | ED.GENADULT ---
HPI - General Adult General Chief complaint: Fall Stated complaint: sob Time Seen by Provider: 04/25/22 18:57 History of Present Illness HPI narrative: 76-year-old male presenting to the emergency department for evaluation of right knee injury after having a fall from bed. Patient states that he was attempting to transfer from the bed to his wheelchair when he fell. Patient states he did land on his right knee. Patient's oxygen cannula came out at the time patient called EMS. Patient's nasal cannula was replaced and his oxygen saturations went back to his baseline. Patient still wished to be evaluated. Patient does have wheezing on examination. Patient does have abrasions to his right knee. Patient states he does feel short of breath but has shortness of breath that is unchanged since 2016. Patient denies any other pain or injury. Related Data Home Medications Medication Instructions Recorded Confirmed aspirin 325 mg tablet,delayed 325 mg PO DAILY 12/02/20 04/27/22 release folic acid 1 mg tablet 1 mg PO DAILY 12/02/20 04/27/22 gabapentin 100 mg capsule 400 mg PO TID 11/06/21 04/27/22 albuterol sulfate 90 mcg/actuation 2 puff inhalation QID 04/27/22 04/27/22 aerosol inhaler multivitamin 1 tablet PO DAILY 04/27/22 04/27/22 Allergies Allergy/AdvReac Type Severity Reaction Status Date / Time niacin Allergy Intermediate Rash/itchin Verified 04/27/22 12:35 g hydrocodone [From [place]] AdvReac Confusion Verified 04/27/22 12:35 Review of Systems Review of Systems: CONSTITUTIONAL: Denies fever, chills, or sweats. EYES: Denies visual changes, redness, or discharge. ENT: Denies rhinorrhea, congestion, sore throat, or otalgia. CARDIOVASCULAR: Denies chest pain, palpitations, or edema. RESPIRATORY: Shortness of breath GASTROINTESTINAL: Denies abdominal pain, nausea, vomiting, or diarrhea. GENITOURINARY: Denies dysuria or hematuria. SKIN: Denies rash or itching. MUSCULOSKELETAL: See HPI NEUROLOGIC: Denies headache, numbness, or weakness. [facility] Past Medical History Medical History Alcohol abuse History of alcohol abuse though he has cut back significantly in the last 6 months or so. Now drinking a couple of beers 5 days a week. Anxiety Asthma Benign prostatic hyperplasia Cerebrovascular accident Chronic abscess of lower leg Chronic anemia Chronic hyponatremia Chronic obstructive pulmonary disease Chronic respiratory failure with hypoxia, on home O2 therapy Depression Diabetic foot ulcer Diabetic peripheral neuropathy Diastolic congestive heart failure Former smoker Gastroesophageal reflux disease Hearing loss Hypertension Ichthyosis vulgaris Irritable bowel syndrome Mixed hyperlipidemia MRSA (methicillin resistant Staphylococcus aureus) septicemia (09/2020) Osteoarthritis Osteomyelitis History of osteomyelitis of both feet requiring multiple amputations. Pancreatitis (03/2021) Persistent atrial fibrillation Not on long-term anticoagulation. Takes aspirin 325 mg daily. Pulmonary hypertension Echocardiogram on 06/08/2021 showed normal left ventricular systolic function with an EF estimated 65 to 70%, mildly increased LV wall thickness, severely enlarged right atrial chamber, mildly enlarged left atrial chamber, mild mitral valve and trace tricuspid valve regurgitation, and mild pulmonary hypertension with an estimated pulmonary arterial systolic pressure of 35 mmHg. Sacrum and coccyx fracture Type 2 diabetes mellitus Hemoglobin A1c was 6.6% on 06/09/2021. Surgical History Surgical History History of bilateral cataract extraction History of incision and drainage Right hip abscess. 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 Heaton History of tonsillectomy History of total right hip arthroplasty (2002) History of transmetatarsal amputation of left foot (2019) History of transmetatar
[2022-04-25] MEDS: ALBUTEROL SULFATE NEB 2.5 MG/3 ML INH 5 MG INHALATION (19:31)
[2022-04-25 19:48] VITALS: PULSE 81; RESP 20
[2022-04-25 22:47] VITALS: BP 136/89; PULSE 89; RESP 20; TEMP 36.6; O2SAT 96
== END 2022-04-25 22:52 | disposition home or self-care (01) ==
PROVIDERS: Emergency Provider Emergency Medicine; PCP Emergency Medicine
DX: M25.561 Pain in right knee (principal); F17.210 Nicotine dependence, cigarettes, uncomplicated; F41.9 Anxiety disorder, unspecified; J45.909 Unspecified asthma, uncomplicated; D64.9 Anemia, unspecified; F32.9 Major depressive disorder, single episode, unspecified; I10 Essential (primary) hypertension; E11.9 Type 2 diabetes mellitus without complications; M19.90 Unspecified osteoarthritis, unspecified site
CPT/HCPCS: 73564; 93005; 94640; 99283

== ENCOUNTER 2022-04-27 12:12 | Inpatient (IN) | payer OTHER, MEDICAID, SELFPAY ==
[2022-04-27] VITALS (18 sets, daily range): BP systolic 107–138; BP diastolic 40–68; PULSE 67–90; RESP 18–28; TEMP 36.4–36.6; O2SAT 88–100; BMI 24.0
--- NOTE | ~2022-04-27 | XR_ITS ---
XR lumbar spine 2-3V DATE: 05/03/2022 13:36 INDICATION: Back pain. No known injury. TECHNIQUE: AP, lateral, coned lateral lumbosacral views COMPARISON: 06/04/2018 CT lumbar spine FINDINGS: Old fracture deformities of T12 and L1 vertebral bodies. Osteopenia. Minimal dextroscoliosis of the lower thoracic and lumbar spine. Normal alignment lumbar spine. No recent fracture or bone destruction. The included lower thoracic an d lumbar pedicles are intact. No spondylolisthesis. Lumbar and lumbosacral interspaces are well preserved. The sacroiliac joints are intact. Status post right total hip arthroplasty. Abdominal aortic calcification without evidence of aneurysm IMPRESSION: Old fracture deformity at T12 and L1 Osteopenia Mild scoliosis No recent fracture Reviewed, dictated and finalized at location A.
--- NOTE | ~2022-04-27 | XR_ITS ---
EXAMINATION: XR chest 1V portable INDICATION: Pain after fall TECHNIQUE: Portable AP chest at 1258 hours COMPARISON: 03/31/2022 FINDINGS: There is unchanged mild atelectasis of the lung bases. No pleural effusion or pneumothorax. Cardiomegaly is noted. IMPRESSION: 1. No acute cardiopulmonary abnormality. Reviewed, dictated and finalized at location F.
--- NOTE | ~2022-04-27 | CT_ITS ---
EXAMINATION: CT cervical spine wo con DATE: 04/27/2022 13:48 INDICATION: Fall. Neck injury. TECHNIQUE: Computed tomography (CT) of the cervical spine was performed without intravenous contrast. Automated exposure control and iterative reconstruction technique were employed. Exam dose: 392.81 mGy-cm total exam DLP. COMPARISON: 04/01/2022 CT cervical spine FINDINGS: There is prominent levoscoliosis of the cervical spine. C1 and C2 are normally aligned and the odontoid process is intact. No fracture or dislocation or lock ed facet or prevertebral soft tissue swelling. There is moderately severe degenerative disc disease at C6-7 and mild to moderate degenerative disc d isease at the remaining cervical interspaces. There is degenerative change at the apophyseal joints throughout the cervical spine. Uncovertebral diallo int spurring is noted in the mid and lower cervical spine. Emphysematous changes are noted in the apical lung zones. IMPRESSION: Prominent levoscoliosis Cervical spondylosis No fracture or dislocation or locked facet or prevertebral soft tissue swelling Reviewed, dictated and finalized at Location A. Reviewed, dictated and finalized at location B.
--- NOTE | ~2022-04-27 | CT_ITS ---
EXAMINATION: CT brain wo con INDICATION: Head injury COMPARISON: 04/01/2022 TECHNIQUE: Standard unenhanced head CT. The dose-length product (DLP) was 1362.00 mGy-cm. The mA was adjusted according to patient size. Iterative reconstruction technique was employed. FINDINGS: There is no acute intraparenchymal hemorrhage. No evidence of mass lesion. No evidence of a cute infarction. An old infarct in the right frontal lobe is again noted. There is moderate periventr icular and subcortical hypodensity probably related to small vessel ischemic disease. There is modera te prominence of the sulci and ventricles related to cerebral atrophy. Intracranial calcified cerebra l atherosclerosis is noted. There are no extra-axial collections. There is no mass effect or midline shift. The orbits and soft tissues are unremarkable. The visualized sinuses and mastoid air cells are well aerated. IMPRESSION: 1. No acute intracranial abnormality. 2. Age related findings. Reviewed, dictated and finalized at location F.
--- NOTE | ~2022-04-27 | XR_ITS ---
EXAMINATION: XR chest 1V portable INDICATION: Hypoxia TECHNIQUE: Portable AP chest at 2230 hours COMPARISON: 1258 hours FINDINGS: There are minimal airspace opacities of the left lung base. No pleural effusion or pneumoth orax. Cardiomegaly is noted. A skin fold projects over the left hemithorax. IMPRESSION: 1. Minimal left basilar airspace opacity, likely atelectasis. Reviewed, dictated and finalized at location F.
--- NOTE | ~2022-04-27 | XR_ITS ---
XR chest 1V portable DATE: 04/29/2022 05:52 INDICATION: Covid TECHNIQUE: Portable AP projection on 04/29/2022 at 0540 hours COMPARISON: 04/27/2022 portable AP views at 2230 hours FINDINGS: There are patchy bibasilar infiltrates and/atelectasis, increased since 04/27/2022. Normal heart size. Minimal blunting of the left costophrenic angle likely be consistent with minimal pleural effusion. No pneumothorax. IMPRESSION: Increased bibasilar infiltrate and/atelectasis since 04/27/2022 Reviewed, dictated and finalized at location A.
--- NOTE | ~2022-04-27 | XR_ITS ---
XR chest 1V portable DATE: 04/30/2022 05:49 INDICATION: Covid TECHNIQUE: Portable upright AP chest on 04/2022 at 0525 hours COMPARISON: 05/16/2022 portable AP chest at 0540 hours FINDINGS: There is persistent left lower lung infiltrate and/or atelectasis and stable or mildly incr eased since 05/16/2022, with blunting of left costophrenic angle suggesting mild to moderate left pleu ral effusion. The right lung appears essentially clear of infiltrate or consolidation. Bilateral hyperinflation suggests COPD. Cardiomegaly. Aortic calcification. Diffuse osteopenia. IMPRESSION: Stable or mildly increased left lower lung infiltrate and/or atelectasis and left pleural effusion since 05/16/2022 Reviewed, dictated and finalized at location A. IMPRESSION: Stable or mildly increased left lower lung infiltrate and/or atelec tasis and left pleural effusion since 05/16/2022
--- NOTE | 2022-04-27 12:32 | ECG_ITS ---
Measurements Intervals [place] Rate: 69 P: IN: 0 QRS: 0 QRSD: 81 T: 29 QT: 395 QTc: 425 Interpretive Statements ATRIAL FIBRILLATION LOW QRS VOLTAGE- DIFFUSE LEADS ANTEROSEPTAL INFARCT, AGE INDETERMINATE BORDERLINE T WAVE ABNORMALITY- INF/LAT LEADS BASELINE ARTIFACT- V5-V6 ABNORMAL ECG Electronically Signed On 04-27-2022 13:03:37 CDT by Yahir Lopez D.O.
--- NOTE | 2022-04-27 12:43 | ED.FALL ---
HPI - Fall General Chief Complaint: Fall Stated Complaint: sob coughing Time Seen by Provider: 04/27/22 12:42 Source: patient Mode of arrival: EMS Limitations: no limitations History of Present Illness HPI Narrative: patient is 76-year-old male with past medical history neuropathy, COPD on chronic oxygen,? Diabetes mellitus type 2, diastolic heart failure, IBS, AFib and pulmonary hypertension. he presented to [facility] due to frequent falls. Today patient filled out of his wheelchair at home, reports some dizziness prior to the fall, patient denies loss of consciousness, head or neck injury or other injuries. EMT reports that patient heart rate was low in the 30th when they found him at home, on the way to the emergency room. 0.5 mg of atropine was given. Patient wears chronic 3 L of oxygen at all time Related Data Home Medications Medication Instructions Recorded Confirmed aspirin 325 mg tablet,delayed 325 mg PO DAILY 12/02/20 04/27/22 release folic acid 1 mg tablet 1 mg PO DAILY 12/02/20 04/27/22 gabapentin 100 mg capsule 400 mg PO TID 11/06/21 04/27/22 albuterol sulfate 90 mcg/actuation 2 puff inhalation QID 04/27/22 04/27/22 aerosol inhaler Allergies Allergy/AdvReac Type Severity Reaction Status Date / Time niacin Allergy Intermediate Rash/itchin Verified 04/27/22 12:35 g hydrocodone [From [place]] AdvReac Confusion Verified 04/27/22 12:35 Review of Systems Review of Systems: All systems reviewed & are unremarkable except as noted in HPI and below PMFSH Past Medical History Medical History Alcohol abuse History of alcohol abuse though he has cut back significantly in the last 6 months or so. Now drinking a couple of beers 5 days a week. Anxiety Asthma Benign prostatic hyperplasia Cerebrovascular accident Chronic abscess of lower leg Chronic anemia Chronic hyponatremia Chronic obstructive pulmonary disease Chronic respiratory failure with hypoxia, on home O2 therapy Depression Diabetic foot ulcer Diabetic peripheral neuropathy Diastolic congestive heart failure Former smoker Gastroesophageal reflux disease Hearing loss Hypertension Ichthyosis vulgaris Irritable bowel syndrome Mixed hyperlipidemia MRSA (methicillin resistant Staphylococcus aureus) septicemia (09/2020) Osteoarthritis Osteomyelitis History of osteomyelitis of both feet requiring multiple amputations. Pancreatitis (03/2021) Persistent atrial fibrillation Not on long-term anticoagulation. Takes aspirin 325 mg daily. Pulmonary hypertension Echocardiogram on 06/08/2021 showed normal left ventricular systolic function with an EF estimated 65 to 70%, mildly increased LV wall thickness, severely enlarged right atrial chamber, mildly enlarged left atrial chamber, mild mitral valve and trace tricuspid valve regurgitation, and mild pulmonary hypertension with an estimated pulmonary arterial systolic pressure of 35 mmHg. Sacrum and coccyx fracture Type 2 diabetes mellitus Hemoglobin A1c was 6.6% on 06/09/2021. Surgical History Surgical History History of bilateral cataract extraction History of incision and drainage Right hip abscess. 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 He gets Meals on Wheels. He is and has 7 children,
[2022-04-27] MEDS: MORPHINE SULFATE (*CRX) 4 MG/ML INJ IV PUSH (13:02)
[2022-04-27] MEDS: LORazepam INJ (*CRX) 2 MG/ML VIAL 1 MG IV PUSH ×2 (13:02→16:06)
[2022-04-27] MEDS: ONDANSETRON INJ 4 MG/2 ML VIAL IV PUSH (13:02)
[2022-04-27] MEDS: SODIUM CHLORIDE 0.9% IV 1,000 ML 999 ML IV CONT (13:03)
--- NOTE | 2022-04-27 13:10 | PC.NURSE ---
pt pulled off C-collar. pt refusing to wear it. pt educated on the importance of wearing a c-collar. pt still refusing.
[2022-04-27 13:21] LABS: Basophils Absolute Auto 0.1 K/mm3 (0.0-0.1); Basophils Percent Auto 0.6 % (0.2-1.2); Eosinophils Percent Auto 0.2 % (0-4.4); Hemoglobin 11.8 g/dL (14.0-18.0); Immature Granulocyte Absolute 0.21 K/mm3 (0.00-0.031); Immature Granulocyte Percent A 1.8 % (0-0.5); Lymphocytes Absolute Auto 1.25 K/mm3 (0.9-3.2); Mean Corpuscular HGB Conc 31.9 g/dl (32-36); Mean Corpuscular Hemoglobin 26.8 pg (26-34); Mean Corpuscular Volume 83.9 fl (80-100); Mean Platelet Volume 8.8 fl (7.4-10.4); Monocytes Absolute Auto 0.6 K/mm3 (0.1-0.6); Monocytes Percent Auto 5.1 % (2.6-8.5); Neutrophils Absolute Auto 9.3 K/mm3 (1.3-6.7); Neutrophils Percent Auto 81.3 % (45.5-73.1); Platelet Count Result 234 k/mm3 (150-375); Red Blood Count 4.41 M/mm3 (4.6-6.20); Red Cell Distribution Width 14.9 % (11.5-14.5); White Blood Count 11.4 K/mm3 (4.5-10.0)
[2022-04-27 13:22] LABS: Alveolar/Arterial O2 Gradient 96.4 mmHg; Base Excess ABG -6.7 mEq/l (+/-2.0); Device NASAL CANNULA; Fractional Inspired Oxygen 36 %; HCO3 ABG 19.6 mEq/l (22.0-26.0); Modified Allen's Test Pass; Oxygen Content ABG 16.7 %vol (16.0-22.0); Oxygen Saturation ABG 97.6 % (95.0-100.0); Oxyhemoglobin 96.6 % THb (90.0-100.0); PCO2 ABG 41.7 mmHg (35.0-45.0); PO2 ABG 111.9 mmHg (80.0-100.0); PO2 FiO2 Ratio Arterial Blood 3.11 %; Site Drawn RIGHT RADIAL; Total Hemoglobin 12.2 g/dL (12.0-18.0); pH ABG 7.289 (7.350-7.450)
[2022-04-27 13:31] LABS: Alanine Aminotransferase 12 U/L (6-50); Albumin Level 3.8 g/dL (3.5-5.1); Alkaline Phosphatase 112 U/L (38-126); Anion Gap 11 mmol/L (8-16); Aspartate Amino Transferase 38 U/L (17-59); Bilirubin,Total 0.2 mg/dL (0.2-1.3); Blood Urea Nitrogen 15 mg/dL (9-20); Calcium 7.5 mg/dL (8.4-10.2); Carbon Dioxide 24 mmol/L (22-30); Chloride 94 mmol/L (98-107); Estimated CRCL calculation 62 ml/min; Estimated Glomerular Filt Rate > 60; Glucose 104 mg/dL (65-110); Sodium 129 mmol/L (137-145)
[2022-04-27 13:32] LABS: Ethanol 240 mg/dL (<10)
[2022-04-27 13:33] LABS: INR 1.3; Prothrombin Time 15.8 Seconds (11.1-14.7)
[2022-04-27 13:34] LABS: Partial Thromboplastin Time 37.6 SECONDS (22.3-36.8)
[2022-04-27 13:45] LABS: NT Pro B Type Natriuretic Pept 2200 pg/mL (5-100); Troponin I 0.066 ng/mL (0.000-0.034)
[2022-04-27] MEDS: SODIUM BICARBONATE 8.4% 50 MEQ/50 ML SYRINGE 77 MEQ IV PUSH (14:33)
--- NOTE | 2022-04-27 14:34 | PM.IMHP ---
H&P: HPI History of Present Illness Date/Time: 04/27/22 14:34 Chief Complaint: Fall Narrative: Mr. Mcguire is a 76-year-old gentleman who presented emergency room after falling out of his wheelchair. Patient was brought in via EMS after falling out of his wheelchair. At this point time patient is lethargic after receiving Ativan having an alcohol level of 248 he is unable to give any type of history. All HPI is coming from emergency room records. Per emergency room records patient fell out of his wheelchair in the hallway of his house and patient started screaming and his neighbors heard him and called 911. Patient was then transported to the hospital via EMS and while being monitored in EMS patient's heart rate was noted to go down to 30 and he was given 0.5 mg of atropine and 150 mL bolus of normal saline. In the emergency room patient was noted to have a heart rate in the 60s and chronic atrial fibrillation. Patient does have a known history of COPD and wears oxygen at 3 L per nasal cannula at all times. Patient also has a well-known history of alcohol abuse and had alcohol level of 240 today. Patient was also noted to have metabolic acidosis and hyponatremia which is very common when he is evaluated hospital. Patient does have a known history of COPD and wears oxygen at 3 L per nasal cannula at all times. Patient is a left BKA and has a transmetatarsal amputation to the right foot. Patient also has a known history of diabetes mellitus, diastolic heart failure, IBS, chronic atrial fibrillation, neuropathy, and pulmonary hypertension. Review of Systems Review of Systems: I am unable to obtain a full review of systems from patient secondary to clinical condition. [facility] Past Medical History Medical History Alcohol abuse History of alcohol abuse though he has cut back significantly in the last 6 months or so. Now drinking a couple of beers 5 days a week. Anxiety Asthma Benign prostatic hyperplasia Cerebrovascular accident Chronic abscess of lower leg Chronic anemia Chronic hyponatremia Chronic obstructive pulmonary disease Chronic respiratory failure with hypoxia, on home O2 therapy Depression Diabetic foot ulcer Diabetic peripheral neuropathy Diastolic congestive heart failure Former smoker Gastroesophageal reflux disease Hearing loss Hypertension Ichthyosis vulgaris Irritable bowel syndrome Mixed hyperlipidemia MRSA (methicillin resistant Staphylococcus aureus) septicemia (09/2020) Osteoarthritis Osteomyelitis History of osteomyelitis of both feet requiring multiple amputations. Pancreatitis (03/2021) Persistent atrial fibrillation Not on long-term anticoagulation. Takes aspirin 325 mg daily. Pulmonary hypertension Echocardiogram on 06/08/2021 showed normal left ventricular systolic function with an EF estimated 65 to 70%, mildly increased LV wall thickness, severely enlarged right atrial chamber, mildly enlarged left atrial chamber, mild mitral valve and trace tricuspid valve regurgitation, and mild pulmonary hypertension with an estimated pulmonary arterial systolic pressure of 35 mmHg. Sacrum and coccyx fracture Type 2 diabetes mellitus Hemoglobin A1c was 6.6% on 06/09/2021. Surgical History Surgical History History of bilateral cataract extraction History of incision and drainage Right hip abscess. 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 Heaton History of tonsillectomy History of total right hip arthroplasty (2002) History of transmetatarsal amputation of left foot (2019) History of transmetatarsal amputation of right foot (2016) History of ventral hernia repair (2006) Family History Family History Mother Patient's mother is , Onset Age: 31 Father Suicide Social History Social History (Reviewed
[2022-04-27 17:21] LABS: Alveolar/Arterial O2 Gradient 111.3 mmHg; Base Excess ABG -1.7 mEq/l (+/-2.0); Fractional Inspired Oxygen 40 %; HCO3 ABG 26.4 mEq/l (22.0-26.0); Oxygen Content ABG 16.6 %vol (16.0-22.0); Oxygen Saturation ABG 96.8 % (95.0-100.0); Oxyhemoglobin 95.9 % THb (90.0-100.0); PO2 ABG 103.9 mmHg (80.0-100.0); Total Hemoglobin 12.2 g/dL (12.0-18.0)
[2022-04-27 17:24] LABS: Device NASAL CANNULA; Modified Allen's Test Pass; PCO2 ABG 60.9 mmHg (35.0-45.0); Site Drawn LEFT RADIAL; pH ABG 7.255 (7.350-7.450)
[2022-04-27] MEDS: THIAMINE HCL INJ 100 MG, FOLIC ACID INJ 1 MG, MULTIVITAMINS-12 INJ VIAL 1 5 ML, MULTIVI... 125 MG IV CONT (17:38)
--- NOTE | 2022-04-27 18:19 | ADMGEN ---
This patient, Ludin Mcguire, was admitted to IMU Room 201-01 at 1803. Patient/family oriented to hospital policies and general routines including ID bracelet, bed and alarms, visiting hours, pain management, procedures, bathroom and other care routines, personal items, smoking policy, room service/diet, and visiting hours. Information on how to activate the Rapid Response Team has been discussed. Patient/Family are encouraged to report perceived risks to care and to ask questions if they do not understand what they are told or what they should do.
[2022-04-27] MEDS: ALBUTEROL SULFATE NEB 2.5 MG/3 ML INH INHALATION (20:10)
[2022-04-27 20:42] LABS: Base Excess ABG -1.3 mEq/l (+/-2.0); Carboxyhemoglobin 0.2 % THb (0-2.0); Fractional Inspired Oxygen 30 %; Methemoglobin ABG 0.3 %THb (0-1.5); Modified Allen's Test Pass; Oxygen Content ABG 16.1 %vol (16.0-22.0); Oxygen Saturation ABG 96.5 % (95.0-100.0); Oxyhemoglobin 95.4 % THb (90.0-100.0); PCO2 ABG 48.9 mmHg (35.0-45.0); PO2 ABG 92.4 mmHg (80.0-100.0); PO2 FiO2 Ratio Arterial Blood 3.08 %; Reduced Hemoglobin 4.1 %THb (0-5.0); Site Drawn RIGHT RADIAL; Total Hemoglobin 11.9 g/dL (12.0-18.0); pH ABG 7.327 (7.350-7.450)
[2022-04-27 20:43] LABS: Device NON-INVASIVE VENT; Non-Invasive Expiratory Pressure 6 CMH2O; Non-Invasive Inspiratory Pressure 14 CMH2O; Non-Invasive Vent Rate 20 /MIN
[2022-04-27 20:48] LABS: Troponin I 0.072 ng/mL (0.000-0.034)
[2022-04-27 20:57] LABS: SARS-CoV-2 RNA PCR Positive
[2022-04-27] MEDS: IPRATROPIUM BR 0.02% INH SOLN 0.5 MG/2.5 ML VIAL INHALATION (21:10)
[2022-04-27 22:22] LABS: Glucose Point of Care 83 mg/dl (65-105)
--- NOTE | 2022-04-27 22:55 | PC.NURSE ---
Spoke with dtr Annetta Jean Baptiste to alert to covid positive status and that pt was requiring more oxygen. She states that he tested positive a couple weeks ago at rehab and has only been home for 5 days. Explained that policy for visitation was no visitors for covid patients at this time. She asked what would happen if he were to take a turn for the worse. Explained that we could ask supervisors at that point. Explained that there is possibility for intubation if he were to continue to worsen.
[2022-04-27 23:52] LABS: Appearance Urine Clear (Clear); Bilirubin Urine Negative (Negative); Blood Urine Negative (Negative); Color Urine Yellow (Yellow); Glucose Urine UA Negative (Negative); Ketones Urine 1+ mg/dL (Negative); Leukocyte Esterase Ur Negative LEU/UL (Negative); Nitrate Urine Negative (Negative); Protein Urine 2+ mg/dL (Negative); Urobilinogen Urine 0.2 mg/dL (<2.0); pH Urine 5.5 (5.0-9.0)
[2022-04-28] VITALS (24 sets, daily range): BP systolic 121–151; BP diastolic 51–67; PULSE 68–94; RESP 20–26; TEMP 36.4–37.1; O2SAT 90–100
[2022-04-28 00:01] LABS: Add Urine Microscopic? YES; RBC Urine 0-2 /hpf (0-2); WBC Urine 0-3 /hpf
[2022-04-28] MEDS: IPRATROPIUM BR 0.02% INH SOLN 0.5 MG/2.5 ML VIAL INHALATION ×4 (02:36→20:50)
[2022-04-28] MEDS: ALBUTEROL SULFATE NEB 2.5 MG/3 ML INH INHALATION ×4 (02:36→20:50)
[2022-04-28 05:56] LABS: Basophils Percent Auto 0.4 % (0.2-1.2); Eosinophils Percent Auto 0.3 % (0-4.4); Hematocrit 32.6 % (42.0-52.0); Hemoglobin 10.4 g/dL (14.0-18.0); Immature Granulocyte Absolute 0.08 K/mm3 (0.00-0.031); Immature Granulocyte Percent A 0.8 % (0-0.5); Lymphocytes Absolute Auto 0.75 K/mm3 (0.9-3.2); Lymphocytes Percent Auto 7.9 % (18.3-44.2); Mean Corpuscular HGB Conc 31.9 g/dl (32-36); Mean Corpuscular Hemoglobin 26.7 pg (26-34); Mean Corpuscular Volume 83.8 fl (80-100); Mean Platelet Volume 8.7 fl (7.4-10.4); Monocytes Percent Auto 10.8 % (2.6-8.5); Neutrophils Absolute Auto 7.6 K/mm3 (1.3-6.7); Neutrophils Percent Auto 79.8 % (45.5-73.1); Platelet Count Result 172 k/mm3 (150-375); Red Blood Count 3.89 M/mm3 (4.6-6.20); Red Cell Distribution Width 14.7 % (11.5-14.5); White Blood Count 9.6 K/mm3 (4.5-10.0)
[2022-04-28] MEDS: LORazepam INJ (*CRX) 2 MG/ML VIAL 1 MG IV PUSH ×2 (06:01→11:26)
[2022-04-28 06:05] LABS: Anion Gap 10 mmol/L (8-16); Blood Urea Nitrogen 11 mg/dL (9-20); Calcium 7.4 mg/dL (8.4-10.2); Carbon Dioxide 25 mmol/L (22-30); Chloride 97 mmol/L (98-107); Estimated CRCL calculation 64 ml/min; Estimated Glomerular Filt Rate > 60; Glucose 70 mg/dL (65-110); Potassium 3.6 mmol/L (3.4-5.0); Sodium 132 mmol/L (137-145)
[2022-04-28 08:02] LABS: Glucose Point of Care 94 mg/dl (65-105)
[2022-04-28 09:01] LABS: Troponin I 0.068 ng/mL (0.000-0.034)
[2022-04-28] MEDS: SIMVASTATIN 10 MG TABLET PO (09:46)
[2022-04-28] MEDS: GABAPENTIN 400 MG CAPSULE PO ×3 (09:46→17:39)
[2022-04-28] MEDS: FOLIC ACID 1 MG TABLET PO (09:46)
[2022-04-28] MEDS: MULTIVITAMINS THERAPEUTIC TAB (*BKC) 1 TABLET PO (09:46)
[2022-04-28] MEDS: FUROSEMIDE 40 MG TABLET PO (09:46)
[2022-04-28] MEDS: ASPIRIN 325 MG ENTERIC TABLET PO (09:46)
[2022-04-28] MEDS: amLODIPine BESYLATE 5 MG TABLET 10 MG PO (09:46)
[2022-04-28] MEDS: THIAMINE HCL 200 MG/2 ML VIAL 100 MG IV PUSH (09:47)
[2022-04-28] MEDS: ENOXAPARIN 40 MG/0.4 ML SYRINGE SUB-Q (09:47)
[2022-04-28] MEDS: UMECLIDINIUM BROMIDE 62.5 MCG ELLIPTA 1 PUFF INHALATION (09:53)
--- NOTE | 2022-04-28 11:20 | PM.CNCAR ---
Assessment and Plan Assessment and plan (1) Bradyarrhythmia: Code(s): I49.8 - Other specified cardiac arrhythmias Status: Acute Plan Fall and bradyarrhythmia on presentation likely related to B-wily and acute resp failure on presentation Acute hypoxic and hypercapnic resp failure with COVID +ve, COPD exacerbation vs pneumonia Chronic AF Chronic diastolic herat failure HTN controlled COPD on home O2 hx of alcohol abuse Additional Plan Avoid use of AVN blocking agents and d/c metoprolol Cont lasix 40 mg daily and amlodipine 10 mg daily No further cardiac recommendations and please call back if needed. History of Present Illness History of Present Illness Consult date/time: 04/28/22 11:20 Reason For Visit: Bradycardia/mul falls/alcoholism metabolic acidosi Narrative: Patient presented to emergency room afetr fall. Patient doesnt recall any details regarding this event. Per EMS he was noted to have bradycardia down to 30 bpm with hypoxemia that improved with atropine and O2. He was lethargic on presentation with elevated lacohol level was elevated and started on ativan. His bradycaria was assumed to be related to B-wily that was stopped. He was initally on BiPAP then weaned down to nasal O2. He has HX of COPD and on home O2 at 3 L. He has Hx of LE amputations, DM, chronci AF and chronic diastolic heart failure. On admission he was also diagnosed with COVID and on isolation. overnight HR has been sinus rhythm. He is complaining of joint aches. Review of Systems Review of Systems: All systems reviewed & are unremarkable except as noted in HPI and below PMFSH Past Medical History Medical History Alcohol abuse History of alcohol abuse though he has cut back significantly in the last 6 months or so. Now drinking a couple of beers 5 days a week. Anxiety Asthma Benign prostatic hyperplasia Cerebrovascular accident Chronic abscess of lower leg Chronic anemia Chronic hyponatremia Chronic obstructive pulmonary disease Chronic respiratory failure with hypoxia, on home O2 therapy Depression Diabetic foot ulcer Diabetic peripheral neuropathy Diastolic congestive heart failure Former smoker Gastroesophageal reflux disease Hearing loss Hypertension Ichthyosis vulgaris Irritable bowel syndrome Mixed hyperlipidemia MRSA (methicillin resistant Staphylococcus aureus) septicemia (09/2020) Osteoarthritis Osteomyelitis History of osteomyelitis of both feet requiring multiple amputations. Pancreatitis (03/2021) Persistent atrial fibrillation Not on long-term anticoagulation. Takes aspirin 325 mg daily. Pulmonary hypertension Echocardiogram on 06/08/2021 showed normal left ventricular systolic function with an EF estimated 65 to 70%, mildly increased LV wall thickness, severely enlarged right atrial chamber, mildly enlarged left atrial chamber, mild mitral valve and trace tricuspid valve regurgitation, and mild pulmonary hypertension with an estimated pulmonary arterial systolic pressure of 35 mmHg. Sacrum and coccyx fracture Type 2 diabetes mellitus Hemoglobin A1c was 6.6% on 06/09/2021. Surgical History Surgical History History of bilateral cataract extraction History of incision and drainage Right hip abscess. 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 Heaton History of tonsillectomy History of total right hip arthroplasty (2002) History of transmetatarsal amputation of left foot (2019) History of transmetatarsal amputation of right foot (2016) History of ventral hernia repair (2006) Family History Family History Mother Patient's mother is , Onset Age: 31 Father Suicide Social History Social History Social History: The patient lives alone [place]
[2022-04-28 11:59] LABS: Glucose Point of Care 192 mg/dl (65-105)
[2022-04-28 16:13] LABS: Glucose Point of Care 111 mg/dl (65-105)
--- NOTE | 2022-04-28 17:18 | PM.IMPN ---
Progress Note: A&P Assessment and Plan (1) Acute on chronic respiratory failure with hypoxia and hypercapnia: Code(s): J96.21 - Acute and chronic respiratory failure with hypoxia; J96.22 - Acute and chronic respiratory failure with hypercapnia Status: Acute (2) COVID: Code(s): U07.1 - COVID-19 Status: Acute (3) Frequent falls: Code(s): R29.6 - Repeated falls Status: Acute (4) Metabolic acidosis: Code(s): E87.2 - Acidosis Status: Acute (5) Alcohol abuse: Code(s): F10.10 - Alcohol abuse, uncomplicated Status: Acute (6) Hyponatremia: Code(s): E87.1 - Hypo-osmolality and hyponatremia Status: Acute (7) Atrial fibrillation with slow ventricular response: Code(s): I48.91 - Unspecified atrial fibrillation Status: Acute Plan Patient brought in after falling out of his wheelchair. He had been drinking alcohol with alcohol level at 240. ABG 7.23/42/112 on 4L. Bicarb was low at 20 (but serum normal); by calculation, he has a metabolic and respiratory acidosis. Methanol, etc ususally causes gap acidosis. ABG better with BiPAP. Able to come off BiPAP and clinically improving. Continue thiamine and folate. Continue librium scheduled. Patient is COVID positive as well. CXR was clear and now showing minimal atelectasis. He is still on 5L but probably can be weaned. Feel that his respiratory symptoms more likely related to his intoxication and not from COVID. If unable to wean O2 to baseline or CXR worsens, then will proceed with COVID treatment. Per EMS patient's heart rate was in the 30s while being transported. Patient did receive 0.5 mg of atropine and had significant improvement in his heart rate. Patient is on a beta-wily which has been held. TSH normal. HR well controlled here now. Patient has AFib but not on anticoagulation most likely secondary to frequent falls. Cardiology was consulted and appreciate further recommendations. Lovenox for DVT prophylaxis Subjective Date/time seen: 04/28/22 17:18 Interval history: 76yo male with chronic respiratory failure, alcohol abuse, DM, CHF, and cAFib here after falling out of his wheelchair. Patient was inebriated. Patient states he is hungry and he is having trouble eating because he has no teeth. He is having left-sided chest pain. He cannot elaborate on this but states this is been going on for while. He is extremely hard of hearing making history difficult to obtain. He is vaccinated against COVID. He has also had COVID 3 times he states. He wears BiPAP at night and is compliant with this. He wears 2 L of oxygen night. Exam Narrative: AF 98.2 126/62 93 20 98% 5L Gen - NARD sitting up feeding himself dinner Chest - coarse BS with scattered end expiratory wheezes. nml RR CV - irregularly irregular; Tele showing AFib with controlled HR. no significant or sustained bradycardia Abd - Soft, NT/ND, Positive BS Ext - left BKA. right transmetatarsal amputation. no pedal edema. no sacral edema Neuro - Alert and oriented. [place]. feeding himself without difficulty. no overt dysphagia noted Psych - Nml mood and affect Skin - Warm and dry Objective Data Vital Signs Vital Signs: Vital Signs - 24 hr 04/27/22 17:42 04/27/22 17:42 04/27/22 17:51 Temperature Pulse Rate 71 76 Respiratory Rate 22 H 23 H Blood Pressure 138/66 Pulse Oximetry 100 99 99 Oxygen Delivery BiPAP BiPAP Oxygen Flow Rate Fraction of Inspired Oxygen 04/27/22 18:02 04/27/22 18:23 04/27/22 20:12 Temperature 97.6 F Pulse Rate 76 83 Respiratory Rate 26 H 28 H Blood Pressure 118/68 Pulse Oximetry 96 96 94 Oxygen Delivery BiPAP BiPAP Oxygen Flow Rate Fraction of Inspired Oxygen 04/27/22 20:00 04/27/22 21:10 04/27/22 21:20 Temperature Pulse Rate 82 84 Respiratory Rate 21 H 23 H Blood Pressure Pulse Oximetry 96 Oxygen Delivery BiPAP Oxygen Flow Rate Fraction of Inspired
[2022-04-28] MEDS: SERTRALINE HCL 50 MG TABLET PO (17:39)
[2022-04-28] MEDS: chlordiazePOXIDE (*CRX) 25 MG CAPSULE PO (17:39)
[2022-04-28] MEDS: traZODone HCL 50 MG TABLET PO (22:11)
[2022-04-29] VITALS (21 sets, daily range): BP systolic 102–143; BP diastolic 53–67; PULSE 61–90; RESP 16–27; TEMP 36.3–37.1; O2SAT 91–100
[2022-04-29] MEDS: IPRATROPIUM BR 0.02% INH SOLN 0.5 MG/2.5 ML VIAL INHALATION ×3 (02:36→19:57)
[2022-04-29] MEDS: ALBUTEROL SULFATE NEB 2.5 MG/3 ML INH INHALATION ×3 (02:36→19:57)
[2022-04-29 05:18] LABS: Hematocrit 33.3 % (42.0-52.0); Hemoglobin 10.3 g/dL (14.0-18.0); Mean Corpuscular HGB Conc 30.9 g/dl (32-36); Mean Corpuscular Hemoglobin 26.8 pg (26-34); Mean Corpuscular Volume 86.7 fl (80-100); Mean Platelet Volume 8.6 fl (7.4-10.4); Platelet Count Result 142 k/mm3 (150-375); Red Blood Count 3.84 M/mm3 (4.6-6.20); Red Cell Distribution Width 14.8 % (11.5-14.5); White Blood Count 7.8 K/mm3 (4.5-10.0)
[2022-04-29 05:30] LABS: Anion Gap 2 mmol/L (8-16); Blood Urea Nitrogen 8 mg/dL (9-20); Calcium 7.5 mg/dL (8.4-10.2); Carbon Dioxide 35 mmol/L (22-30); Chloride 92 mmol/L (98-107); Estimated CRCL calculation 26 ml/min; Estimated Glomerular Filt Rate > 60; Glucose 105 mg/dL (65-110); Lactate Dehydrogenase 330 U/L (313-618); Magnesium 1.9 mg/dL (1.6-2.3); Phosphorus 2.4 mg/dL (2.5-4.5); Potassium 3.1 mmol/L (3.4-5.0); Sodium 129 mmol/L (137-145)
[2022-04-29] MEDS: UMECLIDINIUM BROMIDE 62.5 MCG ELLIPTA 1 PUFF INHALATION (08:30)
[2022-04-29] MEDS: ENOXAPARIN 40 MG/0.4 ML SYRINGE SUB-Q (08:45)
[2022-04-29] MEDS: amLODIPine BESYLATE 5 MG TABLET 10 MG PO (08:45)
[2022-04-29] MEDS: THIAMINE HCL 100 MG TABLET PO (08:46)
[2022-04-29] MEDS: chlordiazePOXIDE (*CRX) 25 MG CAPSULE PO ×2 (08:46→17:27)
[2022-04-29] MEDS: MULTIVITAMINS THERAPEUTIC TAB (*BKC) 1 TABLET PO (08:46)
[2022-04-29] MEDS: GABAPENTIN 400 MG CAPSULE PO ×3 (08:46→17:24)
[2022-04-29] MEDS: FUROSEMIDE 40 MG TABLET PO (08:46)
[2022-04-29] MEDS: SIMVASTATIN 10 MG TABLET PO (08:46)
[2022-04-29] MEDS: ASPIRIN 325 MG ENTERIC TABLET PO (08:46)
[2022-04-29 09:42] LABS: Alanine Aminotransferase 11 U/L (6-50); Estimated CRCL calculation 26 ml/min; Estimated Glomerular Filt Rate > 60
[2022-04-29 09:49] LABS: INR 1.1; Prothrombin Time 14.2 Seconds (11.1-14.7)
--- NOTE | 2022-04-29 10:11 | PM.IMPN ---
Progress Note: A&P Assessment and Plan (1) Acute on chronic respiratory failure with hypoxia and hypercapnia: Code(s): J96.21 - Acute and chronic respiratory failure with hypoxia; J96.22 - Acute and chronic respiratory failure with hypercapnia Status: Acute Assessment and Plan: Patient brought in after falling out of his wheelchair. He had been drinking alcohol with alcohol level at 240. ABG 7.23/42/112 on 4L. Bicarb (ABG) was low at 20 (but serum normal); by calculation, he has a metabolic and respiratory acidosis. Methanol, etc usually causes gap acidosis. ABG better with BiPAP 7.33/49/92 on bipap. Able to come off BiPAP and clinically improving. [place] respiratory failure related to his intoxication with possible hypoventilation and/or being off BiPAP and/or aspiration. he also has COVID as well. Initially not felt COVID causing issues given the clear CXR. COVID markers normal but with persistently on 5L and CXR worsening, decided to start on Dexamethasone and Remdesivir. Will also add sputum culture. Appears to have been weaned to 3L already this morning. Will follow. Repeat ABG in the [facility]. Check CXR tomorrow. (2) Bradyarrhythmia: Code(s): I49.8 - Other specified cardiac arrhythmias Status: Acute Assessment and Plan: Per EMS, patient's heart rate was in the 30s while being transported. Patient did receive 0.5 mg of atropine and had significant improvement in his heart rate. Patient is on a beta-wily which was held. TSH is normal. On telemetry, HR well controlled. Related to being off bipap? Taking home medications incorrectly? Cardiology was consulted and appreciate their input. Monitor. (3) COVID: Code(s): U07.1 - COVID-19 Status: Acute Assessment and Plan: As above. Will start dexamethasone remdesivir. (4) Frequent falls: Code(s): R29.6 - Repeated falls Status: Acute Assessment and Plan: Patient fell out of his wheelchair related to being inebriated. Was educated but abstaining from all alcohol use. Increase activity. (5) Metabolic acidosis: Code(s): E87.2 - Acidosis Status: Acute Assessment and Plan: Patient had a combination metabolic and respiratory acidosis. Suspect a respiratory acidosis component was related to hypoventilation from being inebriated and being off his BiPAP. Non-gap Metabolic acidosis most likely related to alcohol intoxication. Condition has resolved. Continue to monitor. (6) Alcohol abuse: Code(s): F10.10 - Alcohol abuse, uncomplicated Status: Acute Assessment and Plan: Patient has a history of alcohol abuse. Was intoxicated fell from his wheelchair. Alcohol level was 240 on admission. Continue thiamine and folate. Continue schedule Librium. He was educated about the benefits of abstaining from alcohol use. He voices understanding of this. (7) Hyponatremia: Code(s): E87.1 - Hypo-osmolality and hyponatremia Status: Acute Assessment and Plan: Patient appears to have a low-grade hyponatremia usually in the low 130s. Sodium was 129 on admission. Probably related to dehydration since no evidence of fluid overload. Patient is eating well. Sodium level did improve yesterday but worse again today. Will check urine sodium. His underlying lung disease could also be contributing to his low sodiums. (8) Atrial fibrillation with slow ventricular response: Code(s): I48.91 - Unspecified atrial fibrillation Status: Acute Assessment and Plan: As above. HR remains well controlled off metoprolol. TSH normal. HR well controlled here now. Patient has AFib but not on anticoagulation most likely secondary to frequent falls. Cardiology was consulted and appreciate further recommendations. Continue telemetry for now. Plan DVT prophylaxis: Lovenox Code status: Full Subjective Date/time seen: 04/29/22 10:11 Interval history:
[2022-04-29] MEDS: FOLIC ACID 1 MG TABLET PO (10:16)
[2022-04-29] MEDS: REMDESIVIR 200 MG/NS 250 ML 200 MG/250 ML BAG 250 MG IVPB (10:17)
[2022-04-29] MEDS: POTASSIUM CHLORIDE 20 MEQ TABLET 40 MEQ PO (10:17)
[2022-04-29 12:21] LABS: Creatinine Urine 7.6 mg/dL
[2022-04-29 12:35] LABS: Sodium Urine Random 33 meq/L
--- NOTE | 2022-04-29 12:35 | PC.NURSE ---
This patient, Ludin Mcguire, was transferred to [[id number]] on 04/29/22 at 1225. Personal belongings sent with patient. Report given to [PAUL [place]]. Appropriate documentation sent with patient.
[2022-04-29] MEDS: ACETAMINOPHEN 325 MG TABLET 650 MG PO (14:10)
[2022-04-29] MEDS: SERTRALINE HCL 50 MG TABLET PO (17:25)
[2022-04-29] MEDS: EUCERIN CREAM 120 GM JAR 1 APPLIC TOPICAL (17:28)
--- NOTE | 2022-04-29 18:01 | PCRCNOTE ---
Window of time for 1400 tx . Will continue tx as scheduled.
[2022-04-29] MEDS: traZODone HCL 50 MG TABLET PO (20:34)
[2022-04-29 20:40] LABS: Glucose Point of Care 410 mg/dl (65-105)
[2022-04-29 20:40] LABS: Glucose Point of Care 437 mg/dl (65-105)
[2022-04-29] MEDS: INSULIN ASPART (*BKC) 100 UNITS/ML 10 UNITS SUB-Q (20:55)
--- NOTE | 2022-04-29 23:04 | PCRCNOTE ---
Pt refusing BIPAP on 7 PM. Pt states that he does not want to wear it and can not tolerate it. RT advised pt that use of the BIPAP will improve vital signs and ADL's. Pt still refusing use.
[2022-04-30] VITALS (21 sets, daily range): BP systolic 107–140; BP diastolic 71–79; PULSE 51–90; RESP 16–20; TEMP 36.2–36.6; O2SAT 97–100
[2022-04-30] MEDS: chlordiazePOXIDE (*CRX) 25 MG CAPSULE PO ×3 (01:13→17:00)
[2022-04-30 01:22] LABS: Glucose Point of Care 258 mg/dl (65-105)
[2022-04-30] MEDS: ALBUTEROL SULFATE NEB 2.5 MG/3 ML INH INHALATION ×4 (01:37→20:17)
[2022-04-30] MEDS: IPRATROPIUM BR 0.02% INH SOLN 0.5 MG/2.5 ML VIAL INHALATION ×4 (01:37→20:17)
[2022-04-30] MEDS: ACETAMINOPHEN 325 MG TABLET 650 MG PO ×2 (03:16→10:02)
[2022-04-30 05:13] LABS: Base Excess ABG 11.7 mEq/l (+/-2.0); Fractional Inspired Oxygen 32 %; HCO3 ABG 36.5 mEq/l (22.0-26.0); Oxygen Content ABG 15.1 %vol (16.0-22.0); Oxyhemoglobin 95.8 % THb (90.0-100.0); PO2 ABG 85.8 mmHg (80.0-100.0); PO2 FiO2 Ratio Arterial Blood 2.68 %; Total Hemoglobin 11.1 g/dL (12.0-18.0)
[2022-04-30 05:14] LABS: Device NASAL CANNULA; Modified Allen's Test Pass; Site Drawn RIGHT RADIAL
[2022-04-30 06:13] LABS: Hematocrit 32.3 % (42.0-52.0); Hemoglobin 10.1 g/dL (14.0-18.0); Mean Corpuscular HGB Conc 31.3 g/dl (32-36); Mean Corpuscular Hemoglobin 26.7 pg (26-34); Mean Corpuscular Volume 85.4 fl (80-100); Mean Platelet Volume 9.6 fl (7.4-10.4); Platelet Count Result 145 k/mm3 (150-375); Red Blood Count 3.78 M/mm3 (4.6-6.20); Red Cell Distribution Width 14.5 % (11.5-14.5); White Blood Count 6.3 K/mm3 (4.5-10.0)
[2022-04-30 06:23] LABS: Alanine Aminotransferase 9 U/L (6-50); Albumin Level 2.9 g/dL (3.5-5.1); Anion Gap 1 mmol/L (8-16); Blood Urea Nitrogen 10 mg/dL (9-20); Calcium 7.8 mg/dL (8.4-10.2); Carbon Dioxide 37 mmol/L (22-30); Chloride 93 mmol/L (98-107); Estimated CRCL calculation 81 ml/min; Estimated Glomerular Filt Rate > 60; Glucose 190 mg/dL (65-110); INR 1.1; Magnesium 1.9 mg/dL (1.6-2.3); Phosphorus 2.1 mg/dL (2.5-4.5); Potassium 3.7 mmol/L (3.4-5.0); Prothrombin Time 13.8 Seconds (11.1-14.7); Sodium 131 mmol/L (137-145)
[2022-04-30 08:27] LABS: Glucose Point of Care 173 mg/dl (65-105)
[2022-04-30] MEDS: ASPIRIN 325 MG ENTERIC TABLET PO (08:43)
[2022-04-30] MEDS: ENOXAPARIN 40 MG/0.4 ML SYRINGE SUB-Q (08:43)
[2022-04-30] MEDS: THIAMINE HCL 100 MG TABLET PO (08:44)
[2022-04-30] MEDS: amLODIPine BESYLATE 5 MG TABLET 10 MG PO (08:45)
[2022-04-30] MEDS: GABAPENTIN 400 MG CAPSULE PO ×3 (08:45→16:56)
[2022-04-30] MEDS: MULTIVITAMINS THERAPEUTIC TAB (*BKC) 1 TABLET PO (08:45)
[2022-04-30] MEDS: FUROSEMIDE 40 MG TABLET PO (08:45)
[2022-04-30] MEDS: SIMVASTATIN 10 MG TABLET PO (08:46)
[2022-04-30] MEDS: POTASSIUM/PHOSPHORUS/SODIUM 1.5 GM PACKET 1 PACKET PO (08:47)
[2022-04-30] MEDS: FOLIC ACID 1 MG TABLET PO (08:48)
[2022-04-30] MEDS: EUCERIN CREAM 120 GM JAR 1 APPLIC TOPICAL ×2 (08:49→17:00)
[2022-04-30] MEDS: UMECLIDINIUM BROMIDE 62.5 MCG ELLIPTA 1 PUFF INHALATION (09:44)
[2022-04-30] MEDS: INSULIN GLARGINE (*BKC) 100 UNITS/ML 8 UNITS SUB-Q (10:03)
[2022-04-30 11:45] LABS: Glucose Point of Care 229 mg/dl (65-105)
[2022-04-30] MEDS: INSULIN ASPART (*BKC) 100 UNITS/ML SUB-Q ×2 (11:47→16:56)
[2022-04-30] MEDS: REMDESIVIR 100 MG/NS 250 ML 100 MG/250 ML BAG 250 MG IVPB (11:50)
--- NOTE | 2022-04-30 15:10 | PM.IMPN ---
Progress Note: A&P Assessment and Plan (1) Acute on chronic respiratory failure with hypoxia and hypercapnia: Code(s): J96.21 - Acute and chronic respiratory failure with hypoxia; J96.22 - Acute and chronic respiratory failure with hypercapnia Status: Acute Assessment and Plan: Patient brought in after falling out of his wheelchair from home. He had only been home for 5 days. He had been drinking alcohol with alcohol level at 240. ABG 7.23/42/112 on 4L. Bicarb (ABG) was low at 20 (but serum normal); by calculation, he has a metabolic and respiratory acidosis. Methanol, etc usually causes gap acidosis. Was on continueous bipap but able to come off. ABG better with BiPAP 7.49/49/86 on 3L. [place] respiratory failure related to his intoxication with possible hypoventilation and/or being off BiPAP and/or aspiration and/or COVID; probably multifactorial. Initially not felt COVID causing issues given the clear CXR and COVID markers normal but had increase in O2 requirement to 5L and CXR worsening so it was decided to start on Dexamethasone and Remdesivir. Back to baseline 3L now. (2) Bradyarrhythmia: Code(s): I49.8 - Other specified cardiac arrhythmias Status: Acute Assessment and Plan: Per EMS, patient's heart rate was in the 30s while being transported. Patient did receive 0.5 mg of atropine and had significant improvement in his heart rate. Patient was on a beta-wily which was held. TSH is normal. On telemetry, HR well controlled. Episode of NSVT so will replete potassium and Mag today. Related to being off bipap? Taking home medications incorrectly? Cardiology was consulted and appreciate their input. Monitor on tele. (3) COVID: Code(s): U07.1 - COVID-19 Status: Acute Assessment and Plan: As above. Dexamethasone and remdesivir started. O2 requirement has improved down to 3 L which is baseline. Chest x-ray however shows mildly increased left lower lobe infiltrates. Increase patient's activity level beginning amount of bed. Add incentive spirometry. Repeat COVID markers. (4) Frequent falls: Code(s): R29.6 - Repeated falls Status: Acute Assessment and Plan: Patient fell out of his wheelchair related to being inebriated. He was educated about abstaining from all alcohol use. Increase activity. (5) Metabolic acidosis: Code(s): E87.2 - Acidosis Status: Acute Assessment and Plan: Patient had a combination metabolic and respiratory acidosis. Suspect a respiratory acidosis component was related to hypoventilation from being inebriated and being off his BiPAP. Non-gap Metabolic acidosis most likely related to alcohol intoxication. Condition has resolved. Continue to monitor. (6) Alcohol abuse: Code(s): F10.10 - Alcohol abuse, uncomplicated Status: Acute Assessment and Plan: Patient has a history of alcohol abuse. Was intoxicated and fell from his wheelchair. Alcohol level was 240 on admission. Continue thiamine and folate. Continue schedule Librium. He was educated about the benefits of abstaining from alcohol use. He voiced understanding of this. (7) Hyponatremia: Code(s): E87.1 - Hypo-osmolality and hyponatremia Status: Acute Assessment and Plan: Patient appears to have a low-grade hyponatremia usually in the low 130s. Sodium was 129 on admission. Probably related to dehydration since no evidence of fluid overload. Patient is eating well. His underlying lung disease could also be contributing to his low sodiums. Sodium level did improve today. Follow. (8) Atrial fibrillation with slow ventricular response: Code(s): I48.91 - Unspecified atrial fibrillation Status: Acute Assessment and Plan: As above. HR remains well controlled off metoprolol. TSH normal. HR well controlled here now. Patient has AFib but not on anticoagulation most likely secondary to frequent falls.
[2022-04-30 16:48] LABS: Glucose Point of Care 284 mg/dl (65-105)
[2022-04-30] MEDS: POTASSIUM CHLORIDE 20 MEQ TABLET 40 MEQ PO (16:55)
[2022-04-30] MEDS: SERTRALINE HCL 50 MG TABLET PO (17:00)
[2022-04-30] MEDS: MAGNESIUM SULF 1 GM/D5W 100 ML 1 GM/100 ML BAG IVPB (18:00)
[2022-04-30] MEDS: traZODone HCL 50 MG TABLET PO (20:21)
[2022-04-30 21:01] LABS: Glucose Point of Care 302 mg/dl (65-105)
[2022-04-30] MEDS: INSULIN ASPART (*BKC) 100 UNITS/ML 8 UNITS SUB-Q (21:29)
[2022-05-01] VITALS (19 sets, daily range): BP systolic 107–135; BP diastolic 50–79; PULSE 55–94; RESP 18–22; TEMP 35.7–36.8; O2SAT 94–99
[2022-05-01] MEDS: chlordiazePOXIDE (*CRX) 25 MG CAPSULE PO ×3 (01:40→17:21)
[2022-05-01] MEDS: ACETAMINOPHEN 325 MG TABLET 650 MG PO ×3 (01:43→19:53)
[2022-05-01] MEDS: IPRATROPIUM BR 0.02% INH SOLN 0.5 MG/2.5 ML VIAL INHALATION ×4 (03:06→22:39)
[2022-05-01] MEDS: ALBUTEROL SULFATE NEB 2.5 MG/3 ML INH INHALATION ×4 (03:06→22:39)
[2022-05-01 06:34] LABS: Hematocrit 33.3 % (42.0-52.0); Hemoglobin 10.3 g/dL (14.0-18.0); Mean Corpuscular HGB Conc 30.9 g/dl (32-36); Mean Corpuscular Volume 87.2 fl (80-100); Mean Platelet Volume 9.5 fl (7.4-10.4); Platelet Count Result 182 k/mm3 (150-375); Red Blood Count 3.82 M/mm3 (4.6-6.20); Red Cell Distribution Width 14.8 % (11.5-14.5); White Blood Count 12.3 K/mm3 (4.5-10.0)
[2022-05-01 06:41] LABS: INR 1.1; Prothrombin Time 13.5 Seconds (11.1-14.7)
[2022-05-01 06:55] LABS: Alanine Aminotransferase 12 U/L (6-50); Anion Gap 3 mmol/L (8-16); Blood Urea Nitrogen 13 mg/dL (9-20); CRP 2.2 mg/dL (<1.0); Calcium 7.8 mg/dL (8.4-10.2); Carbon Dioxide 35 mmol/L (22-30); Chloride 90 mmol/L (98-107); Estimated CRCL calculation 72 ml/min; Estimated Glomerular Filt Rate > 60; Glucose 285 mg/dL (65-110); Lactate Dehydrogenase 324 U/L (313-618); Phosphorus 2.9 mg/dL (2.5-4.5); Potassium 4.2 mmol/L (3.4-5.0); Sodium 128 mmol/L (137-145)
[2022-05-01 07:55] LABS: Glucose Point of Care 247 mg/dl (65-105)
--- NOTE | 2022-05-01 08:17 | PM.IMPN ---
Progress Note: A&P Assessment and Plan (1) Acute on chronic respiratory failure with hypoxia and hypercapnia: Code(s): J96.21 - Acute and chronic respiratory failure with hypoxia; J96.22 - Acute and chronic respiratory failure with hypercapnia Status: Acute Assessment and Plan: Patient brought in after falling out of his wheelchair from home. He had only been home for 5 days. He had been drinking alcohol with alcohol level at 240. ABG 7.23/42/112 on 4L. Bicarb (ABG) was low at 20 (but serum normal); by calculation, he has a metabolic and respiratory acidosis. Methanol, etc usually causes gap acidosis. Was on continueous bipap but able to come off. ABG better with BiPAP 7.49/49/86 on 3L. [place] respiratory failure related to his intoxication with possible hypoventilation and/or being off BiPAP and/or aspiration and/or COVID; probably multifactorial. Initially not felt COVID causing issues given the clear CXR and COVID markers normal but had increase in O2 requirement to 5L and CXR worsening so it was decided to start on Dexamethasone and Remdesivir. Back to baseline 3L now. 05/01: Unchanged, stable on 3 L (2) Bradyarrhythmia: Code(s): I49.8 - Other specified cardiac arrhythmias Status: Acute Assessment and Plan: Per EMS, patient's heart rate was in the 30s while being transported. Patient did receive 0.5 mg of atropine and had significant improvement in his heart rate. Patient was on a beta-wily which was held. TSH is normal. On telemetry, HR well controlled. Episode of NSVT so will replete potassium and Mag today. Related to being off bipap? Taking home medications incorrectly? Cardiology was consulted and appreciate their input. Monitor on tele. 05/01: Cardiology consultation recommended avoiding AVN blocking agents and discontinued metoprolol, recommended continuing Lasix and amlodipine, heart rate in the 70s, stable. (3) COVID: Code(s): U07.1 - COVID-19 Status: Acute Assessment and Plan: As above. Dexamethasone and remdesivir started. O2 requirement has improved down to 3 L which is baseline. Chest x-ray however shows mildly increased left lower lobe infiltrates. Increase patient's activity level beginning amount of bed. Add incentive spirometry. Repeat COVID markers. 05/01: CRP decreasing. Check D-dimer. Day 3 of 10 of dexamethasone (end date May 08) day 3 of 5 of remdesivir (end date May 03) (4) Frequent falls: Code(s): R29.6 - Repeated falls Status: Acute Assessment and Plan: Patient fell out of his wheelchair related to being inebriated. He was educated about abstaining from all alcohol use. Increase activity as tolerated. 05/01: PT OT consult placed (5) Metabolic acidosis: Code(s): E87.2 - Acidosis Status: Acute Assessment and Plan: Patient had a combination metabolic and respiratory acidosis. Suspect a respiratory acidosis component was related to hypoventilation from being inebriated and being off his BiPAP. Non-gap Metabolic acidosis most likely related to alcohol intoxication. Condition has resolved. Continue to monitor. (6) Alcohol abuse: Code(s): F10.10 - Alcohol abuse, uncomplicated Status: Acute Assessment and Plan: Patient has a history of alcohol abuse. Was intoxicated and fell from his wheelchair. Alcohol level was 240 on admission. Continue thiamine and folate. Continue schedule Librium. He was educated about the benefits of abstaining from alcohol use. He voiced understanding of this. 05/01: Continue Librium, monitor CIWA scoring, slowly wean Librium dosing (7) Hyponatremia: Code(s): E87.1 - Hypo-osmolality and hyponatremia Status: Acute Assessment and Plan: Patient appears to have a low-grade hyponatremia usually in the low 130s. Sodium was 129 on admission. Probably related to dehydration since no evidence of fluid overload. Patient is eating well.
[2022-05-01] MEDS: UMECLIDINIUM BROMIDE 62.5 MCG ELLIPTA 1 PUFF INHALATION (08:43)
[2022-05-01] MEDS: INSULIN ASPART (*BKC) 100 UNITS/ML SUB-Q ×2 (09:29→17:21)
[2022-05-01] MEDS: INSULIN GLARGINE (*BKC) 100 UNITS/ML 8 UNITS SUB-Q (09:31)
[2022-05-01] MEDS: ASPIRIN 325 MG ENTERIC TABLET PO (09:32)
[2022-05-01] MEDS: ENOXAPARIN 40 MG/0.4 ML SYRINGE SUB-Q (09:32)
[2022-05-01] MEDS: FUROSEMIDE 40 MG TABLET PO (09:33)
[2022-05-01] MEDS: FOLIC ACID 1 MG TABLET PO (09:33)
[2022-05-01] MEDS: GABAPENTIN 400 MG CAPSULE PO ×3 (09:33→17:21)
[2022-05-01] MEDS: SIMVASTATIN 10 MG TABLET PO (09:34)
[2022-05-01] MEDS: MULTIVITAMINS THERAPEUTIC TAB (*BKC) 1 TABLET PO (09:34)
[2022-05-01] MEDS: EUCERIN CREAM 120 GM JAR 1 APPLIC TOPICAL ×2 (09:34→17:22)
[2022-05-01] MEDS: THIAMINE HCL 100 MG TABLET PO (09:35)
[2022-05-01 12:07] LABS: Glucose Point of Care 147 mg/dl (65-105)
[2022-05-01] MEDS: REMDESIVIR 100 MG/NS 250 ML 100 MG/250 ML BAG 250 MG IVPB (12:14)
[2022-05-01] MEDS: SODIUM CHLORIDE 0.9% IV 1,000 ML 75 ML IV CONT (13:31)
[2022-05-01 16:48] LABS: Glucose Point of Care 280 mg/dl (65-105)
[2022-05-01] MEDS: SERTRALINE HCL 50 MG TABLET PO (17:21)
[2022-05-01 17:42] LABS: D Dimer 0.71 ug/mL (<0.48)
[2022-05-01 20:59] LABS: Glucose Point of Care 277 mg/dl (65-105)
[2022-05-01] MEDS: traZODone HCL 50 MG TABLET PO (21:46)
[2022-05-02] VITALS (22 sets, daily range): BP systolic 111–141; BP diastolic 55–79; PULSE 47–94; RESP 12–23; TEMP 36.1–36.6; O2SAT 94–100
[2022-05-02] MEDS: chlordiazePOXIDE (*CRX) 25 MG CAPSULE PO ×3 (01:19→20:48)
[2022-05-02] MEDS: IPRATROPIUM BR 0.02% INH SOLN 0.5 MG/2.5 ML VIAL INHALATION ×4 (02:42→21:19)
[2022-05-02] MEDS: ALBUTEROL SULFATE NEB 2.5 MG/3 ML INH INHALATION ×4 (02:42→21:19)
[2022-05-02] MEDS: SODIUM CHLORIDE 0.9% IV 1,000 ML 75 ML IV CONT (04:56)
[2022-05-02 06:28] LABS: INR 1.1; Prothrombin Time 13.4 Seconds (11.1-14.7)
[2022-05-02 06:44] LABS: Alanine Aminotransferase 12 U/L (6-50); Estimated CRCL calculation 81 ml/min; Estimated Glomerular Filt Rate > 60
[2022-05-02 07:23] LABS: Glucose Point of Care 160 mg/dl (65-105)
[2022-05-02 07:52] LABS: Anion Gap 3 mmol/L (8-16); Blood Urea Nitrogen 14 mg/dL (9-20); Calcium 7.9 mg/dL (8.4-10.2); Carbon Dioxide 33 mmol/L (22-30); Chloride 93 mmol/L (98-107); Estimated CRCL calculation 81 ml/min; Estimated Glomerular Filt Rate > 60; Glucose 177 mg/dL (65-110); Magnesium 1.8 mg/dL (1.6-2.3); Potassium 4.3 mmol/L (3.4-5.0); Sodium 129 mmol/L (137-145)
--- NOTE | 2022-05-02 09:01 | PCOTNOTE ---
Attempted to see patient this AM for OT treatment. Patient declining at this time stating he didn't want to get out of bed. Will continue to attempt.
[2022-05-02] MEDS: SIMVASTATIN 10 MG TABLET PO (09:16)
[2022-05-02] MEDS: FUROSEMIDE 40 MG TABLET PO (09:16)
[2022-05-02] MEDS: FOLIC ACID 1 MG TABLET PO (09:16)
[2022-05-02] MEDS: THIAMINE HCL 100 MG TABLET PO (09:16)
[2022-05-02] MEDS: EUCERIN CREAM 120 GM JAR 1 APPLIC TOPICAL ×2 (09:16→17:09)
[2022-05-02] MEDS: ASPIRIN 325 MG ENTERIC TABLET PO (09:16)
[2022-05-02] MEDS: MULTIVITAMINS THERAPEUTIC TAB (*BKC) 1 TABLET PO (09:16)
[2022-05-02] MEDS: amLODIPine BESYLATE 5 MG TABLET 10 MG PO (09:16)
[2022-05-02] MEDS: GABAPENTIN 400 MG CAPSULE PO ×3 (09:16→17:09)
[2022-05-02] MEDS: INSULIN GLARGINE (*BKC) 100 UNITS/ML 10 UNITS SUB-Q (09:17)
[2022-05-02] MEDS: ENOXAPARIN 40 MG/0.4 ML SYRINGE SUB-Q (09:18)
[2022-05-02] MEDS: ACETAMINOPHEN 325 MG TABLET 650 MG PO ×2 (09:29→15:11)
[2022-05-02] MEDS: UMECLIDINIUM BROMIDE 62.5 MCG ELLIPTA 1 PUFF INHALATION (10:24)
[2022-05-02] MEDS: REMDESIVIR 100 MG/NS 250 ML 100 MG/250 ML BAG 250 MG IVPB (10:55)
[2022-05-02 11:27] LABS: Glucose Point of Care 203 mg/dl (65-105)
[2022-05-02] MEDS: INSULIN ASPART (*BKC) 100 UNITS/ML SUB-Q ×2 (12:34→17:09)
--- NOTE | 2022-05-02 13:39 | PM.IMPN ---
Progress Note: A&P Assessment and Plan (1) Acute on chronic respiratory failure with hypoxia and hypercapnia: Code(s): J96.21 - Acute and chronic respiratory failure with hypoxia; J96.22 - Acute and chronic respiratory failure with hypercapnia Status: Acute Assessment and Plan: Patient brought in after falling out of his wheelchair from home. He had only been home for 5 days. He had been drinking alcohol with alcohol level at 240. ABG 7.23/42/112 on 4L. Bicarb (ABG) was low at 20 (but serum normal); by calculation, he has a metabolic and respiratory acidosis. Methanol, etc usually causes gap acidosis. Was on continueous bipap but able to come off. ABG better with BiPAP 7.49/49/86 on 3L. [place] respiratory failure related to his intoxication with possible hypoventilation and/or being off BiPAP and/or aspiration and/or COVID; probably multifactorial. Initially not felt COVID causing issues given the clear CXR and COVID markers normal but had increase in O2 requirement to 5L and CXR worsening so it was decided to start on Dexamethasone and Remdesivir. Back to baseline 3L now. SpO2 better. Wean o2. Sputum positive for GNB. Will add Cefepime. (2) Bradyarrhythmia: Code(s): I49.8 - Other specified cardiac arrhythmias Status: Acute Assessment and Plan: Per EMS, patient's heart rate was in the 30s while being transported. Patient did receive 0.5 mg of atropine and had significant improvement in his heart rate. Patient was on a beta-wily which was held. TSH is normal. On telemetry, HR well controlled. Related to being off bipap? Taking home medications incorrectly? Cardiology was consulted and appreciate their input. Cardiology recommended avoiding AVN blocking agents and discontinued metoprolol, recommended continuing Lasix and amlodipine. Okay to stop tele (3) COVID: Code(s): U07.1 - COVID-19 Status: Acute Assessment and Plan: As above. Dexamethasone and remdesivir started. O2 requirement has improved down to 3 L which is baseline. Chest x-ray however shows mildly increased left lower lobe infiltrates. CRP decreasing. Day 4 of 10 of dexamethasone (end date May 08) day 4 of 5 of remdesivir (end date May 03). Discharge once Remdesivir is complete. Advance Lantus to improve glycemic control (4) Frequent falls: Code(s): R29.6 - Repeated falls Status: Acute Assessment and Plan: Patient fell out of his wheelchair related to being inebriated. He was educated about abstaining from all alcohol use. Increase activity as tolerated. Contineu PT/OT (5) Metabolic acidosis: Code(s): E87.2 - Acidosis Status: Acute Assessment and Plan: Patient had a combination metabolic and respiratory acidosis. Suspect a respiratory acidosis component was related to hypoventilation from being inebriated and being off his BiPAP. Non-gap Metabolic acidosis most likely related to alcohol intoxication. Condition has resolved. Continue to monitor. (6) Alcohol abuse: Code(s): F10.10 - Alcohol abuse, uncomplicated Status: Acute Assessment and Plan: Patient has a history of alcohol abuse. Was intoxicated and fell from his wheelchair. Alcohol level was 240 on admission. Continue thiamine and folate. Scheduled Librium added. He was educated about the benefits of abstaining from alcohol use. He voiced understanding of this. Wean librium (7) Hyponatremia: Code(s): E87.1 - Hypo-osmolality and hyponatremia Status: Acute Assessment and Plan: Patient appears to have a low-grade hyponatremia usually in the low 130s. Sodium was 129 on admission. Probably related to dehydration since no evidence of fluid overload and from the hyperglycemia. Patient is eating well. His underlying lung disease could also be contributing to his low sodiums. Tracey was 34 with FENa 2.7 to suggest more intrinsic disease. Sodium level down again to 129. Stop IV fl
[2022-05-02 14:48] LABS: Pneumococcal Antigen Urine Not Detected (Not Detected)
[2022-05-02 16:05] LABS: Legionella pneumophila Ag Ur Not Detected (Not Detected)
[2022-05-02 16:31] LABS: Glucose Point of Care 330 mg/dl (65-105)
[2022-05-02 16:58] LABS: Creatinine Urine 10.8 mg/dL
[2022-05-02] MEDS: SERTRALINE HCL 50 MG TABLET PO (17:09)
[2022-05-02 17:10] LABS: Sodium Urine Random 104 meq/L
[2022-05-02] MEDS: traZODone HCL 50 MG TABLET PO (20:48)
[2022-05-02 21:15] LABS: Glucose Point of Care 258 mg/dl (65-105)
[2022-05-03] VITALS (15 sets, daily range): BP systolic 100–138; BP diastolic 49–67; PULSE 60–86; RESP 14–24; TEMP 36.3–36.4; O2SAT 92–100
[2022-05-03] MEDS: ACETAMINOPHEN 325 MG TABLET 650 MG PO ×4 (02:51→20:01)
[2022-05-03] MEDS: ALBUTEROL SULFATE NEB 2.5 MG/3 ML INH INHALATION ×3 (03:05→20:14)
[2022-05-03] MEDS: IPRATROPIUM BR 0.02% INH SOLN 0.5 MG/2.5 ML VIAL INHALATION ×3 (03:06→20:14)
[2022-05-03 06:20] LABS: Hematocrit 32.9 % (42.0-52.0); Hemoglobin 10.1 g/dL (14.0-18.0); Mean Corpuscular HGB Conc 30.7 g/dl (32-36); Mean Corpuscular Hemoglobin 27.2 pg (26-34); Mean Corpuscular Volume 88.4 fl (80-100); Mean Platelet Volume 9.4 fl (7.4-10.4); Platelet Count Result 218 k/mm3 (150-375); Red Blood Count 3.72 M/mm3 (4.6-6.20); Red Cell Distribution Width 14.9 % (11.5-14.5); White Blood Count 12.8 K/mm3 (4.5-10.0)
[2022-05-03 06:32] LABS: Alanine Aminotransferase 14 U/L (6-50); Anion Gap 1 mmol/L (8-16); Blood Urea Nitrogen 20 mg/dL (9-20); Calcium 8.3 mg/dL (8.4-10.2); Carbon Dioxide 39 mmol/L (22-30); Chloride 90 mmol/L (98-107); Estimated CRCL calculation 64 ml/min; Estimated Glomerular Filt Rate > 60; Glucose 175 mg/dL (65-110); Potassium 4.7 mmol/L (3.4-5.0); Sodium 130 mmol/L (137-145)
[2022-05-03] MEDS: INSULIN GLARGINE (*BKC) 100 UNITS/ML 10 UNITS SUB-Q (08:08)
[2022-05-03 08:10] LABS: Glucose Point of Care 153 mg/dl (65-105)
[2022-05-03] MEDS: THIAMINE HCL 100 MG TABLET PO (08:13)
[2022-05-03] MEDS: amLODIPine BESYLATE 5 MG TABLET 10 MG PO (08:13)
[2022-05-03] MEDS: FUROSEMIDE 40 MG TABLET PO (08:13)
[2022-05-03] MEDS: MULTIVITAMINS THERAPEUTIC TAB (*BKC) 1 TABLET PO (08:13)
[2022-05-03] MEDS: ASPIRIN 325 MG ENTERIC TABLET PO (08:13)
[2022-05-03] MEDS: SIMVASTATIN 10 MG TABLET PO (08:13)
[2022-05-03] MEDS: GABAPENTIN 400 MG CAPSULE PO ×3 (08:13→17:22)
[2022-05-03] MEDS: EUCERIN CREAM 120 GM JAR 1 APPLIC TOPICAL ×2 (08:14→17:22)
[2022-05-03] MEDS: FOLIC ACID 1 MG TABLET PO (08:14)
[2022-05-03] MEDS: ENOXAPARIN 40 MG/0.4 ML SYRINGE SUB-Q (08:14)
[2022-05-03] MEDS: chlordiazePOXIDE (*CRX) 25 MG CAPSULE PO ×2 (08:18→21:47)
[2022-05-03] MEDS: REMDESIVIR 100 MG/NS 250 ML 100 MG/250 ML BAG 250 MG IVPB (09:41)
--- NOTE | 2022-05-03 10:58 | PCRCNOTE ---
Window of time for administration has passed. See next scheduled administration.
[2022-05-03 11:57] LABS: Glucose Point of Care 199 mg/dl (65-105)
--- NOTE | 2022-05-03 15:27 | PM.DS ---
DS: Admitting Diagnosis Discharge Date 05/03/22 Admitting Diagnosis Shortness of breath with coughing DS: Discharge Diagnosis Discharge Diagnosis (1) Acute on chronic respiratory failure with hypoxia and hypercapnia: Code(s): J96.21 - Acute and chronic respiratory failure with hypoxia; J96.22 - Acute and chronic respiratory failure with hypercapnia Status: Acute Assessment and Plan: Patient brought in after falling out of his wheelchair from home. He had only been home for 5 days from therapy unit. He had been drinking alcohol with alcohol level at 240. ABG 7.23/42/112 on 4L. Bicarb (ABG) was low at 20 (but serum normal); by calculation, he has a metabolic and respiratory acidosis. Methanol, etc usually causes gap acidosis. Was on continuous bipap but able to come off. ABG better with BiPAP 7.49/49/86 on 3L. [place] respiratory failure related to his intoxication with possible hypoventilation and/or being off BiPAP and/or aspiration and/or COVID; probably multifactorial. Initially not felt COVID causing issues given the clear CXR and COVID markers normal but had increase in O2 requirement to 5L and CXR worsening so it was decided to start on Dexamethasone and Remdesivir. SpO2 better and now back to baseline 3L now. Sputum returned positive for GNB so Cefepime started. Sputun Cx growing Pseudomonas sensitive to Levaquin. Continue Levaquin to complete a course (2) Bradyarrhythmia: Code(s): I49.8 - Other specified cardiac arrhythmias Status: Acute Assessment and Plan: Per EMS, patient's heart rate was in the 30s while being transported. Patient did receive 0.5 mg of atropine and had significant improvement in his heart rate. Patient was on a beta-wily which was held. TSH is normal. On telemetry, HR well controlled. Cardiology was consulted and appreciate their input. Cardiology recommended avoiding AVN blocking agents and discontinued metoprolol, recommended continuing Lasix and amlodipine. (3) COVID: Code(s): U07.1 - COVID-19 Status: Acute Assessment and Plan: As above. Dexamethasone and remdesivir started. O2 requirement has improved down to 3 L which is baseline. Chest x-ray however shows mildly increased left lower lobe infiltrates. CRP decreasing. Treated with dexamethasone and remdesivir. Decided not to continue steroids at discharge since lung exam improved, at baseline 3L and now with positive sputum. (4) Frequent falls: Code(s): R29.6 - Repeated falls Status: Acute Assessment and Plan: Patient fell out of his wheelchair related to being inebriated. He was educated about abstaining from all alcohol use. he did well with PT/OT (5) Metabolic acidosis: Code(s): E87.2 - Acidosis Status: Acute Assessment and Plan: Patient had a combination metabolic and respiratory acidosis. Suspect a respiratory acidosis component was related to hypoventilation from being inebriated and being off his BiPAP. Non-gap Metabolic acidosis most likely related to alcohol intoxication. Acidosis resolve and his general condition has improved (6) Alcohol abuse: Code(s): F10.10 - Alcohol abuse, uncomplicated Status: Acute Assessment and Plan: Patient has a history of alcohol abuse. Was intoxicated and fell from his wheelchair. Alcohol level was 240 on admission. Started on thiamine and folate. Scheduled Librium added. He was educated about the benefits of abstaining from alcohol use. He voiced understanding of this. Weaned off librium (7) Hyponatremia: Code(s): E87.1 - Hypo-osmolality and hyponatremia Status: Acute Assessment and Plan: Patient appears to have a low-grade hyponatremia usually in the low 130s. Sodium was 129 on admission. Probably related to dehydration since no evidence of fluid overload and from the hyperglycemia. Patient is eating well. His underlying lung disease could also be contr
[2022-05-03 16:47] LABS: Glucose Point of Care 286 mg/dl (65-105)
[2022-05-03] MEDS: INSULIN ASPART (*BKC) 100 UNITS/ML SUB-Q (17:18)
[2022-05-03] MEDS: SERTRALINE HCL 50 MG TABLET PO (17:22)
[2022-05-03 21:03] LABS: Glucose Point of Care 314 mg/dl (65-105)
[2022-05-03] MEDS: traZODone HCL 50 MG TABLET PO (21:50)
[2022-05-04] VITALS: BP 108/67; PULSE 77; PULSE 80
[2022-05-04 02:13] VITALS: PULSE 70; RESP 20
[2022-05-04] MEDS: ALBUTEROL SULFATE NEB 2.5 MG/3 ML INH INHALATION (02:13)
[2022-05-04] MEDS: IPRATROPIUM BR 0.02% INH SOLN 0.5 MG/2.5 ML VIAL INHALATION (02:13)
[2022-05-04 02:26] VITALS: PULSE 69; RESP 20
[2022-05-04 03:14] VITALS: BP 101/48; PULSE 87; RESP 16; TEMP 36.3; O2SAT 99
[2022-05-04 04:00] VITALS: BP 101/48; PULSE 77; PULSE 80
[2022-05-04] MEDS: ACETAMINOPHEN 325 MG TABLET 650 MG PO (05:52)
[2022-05-04 07:51] LABS: Glucose Point of Care 199 mg/dl (65-105)
[2022-05-04 08:20] VITALS: BP 98/43; PULSE 72; RESP 18; TEMP 36.2; O2SAT 99
--- NOTE | 2022-05-04 09:12 | P.DS_ITS ---
DS: Admitting Diagnosis Discharge Date 05/04/22 Admitting Diagnosis Shortness of breath with coughing DS: Discharge Diagnosis Discharge Diagnosis (1) Acute on chronic respiratory failure with hypoxia and hypercapnia: Code(s): J96.21 - Acute and chronic respiratory failure with hypoxia; J96.22 - Acute and chronic respiratory failure with hypercapnia Status: Acute Assessment and Plan: Patient brought in after falling out of his wheelchair from home. He had only been home for 5 days from therapy unit. He had been drinking alcohol with alcohol level at 240. ABG 7.23/42/112 on 4L. Bicarb (ABG) was low at 20 (but serum normal); by calculation, he has a metabolic and respiratory acidosis. Methanol, etc usually causes gap acidosis. Was on continuous bipap but able to come off. ABG better with BiPAP 7.49/49/86 on 3L. [place] respiratory failure related to his intoxication with possible hypoventilation and/or being off BiPAP and/or aspiration and/or COVID; probably multifactorial. Initially not felt COVID causing issues given the clear CXR and COVID markers normal but had increase in O2 requirement to 5L and CXR worsening so it was decided to start on Dexamethasone and Remdesivir. SpO2 better and now back to baseline 3L now. Sputum returned positive for GNB so Cefepime started. Sputun Cx growing Pseudomonas sensitive to Levaquin. Continue Levaquin to complete a course (2) Bradyarrhythmia: Code(s): I49.8 - Other specified cardiac arrhythmias Status: Acute Assessment and Plan: Per EMS, patient's heart rate was in the 30s while being transported. Patient did receive 0.5 mg of atropine and had significant improvement in his heart rate. Patient was on a beta-wily which was held. TSH is normal. On telemetry, HR well controlled. Cardiology was consulted and appreciate their input. Cardiology recommended avoiding AVN blocking agents and discontinued metoprolol, recommended continuing Lasix and amlodipine. (3) COVID: Code(s): U07.1 - COVID-19 Status: Acute Assessment and Plan: As above. Dexamethasone and remdesivir started. O2 requirement has improved down to 3 L which is baseline. Chest x-ray however shows mildly increased left lower lobe infiltrates. CRP decreasing. Treated with dexamethasone and remdesivir. Decided not to continue steroids at discharge since lung exam improved, at baseline 3L and now with positive sputum. (4) Frequent falls: Code(s): R29.6 - Repeated falls Status: Acute Assessment and Plan: Patient fell out of his wheelchair related to being inebriated. He was educated about abstaining from all alcohol use. he did well with PT/OT (5) Metabolic acidosis: Code(s): E87.2 - Acidosis Status: Acute Assessment and Plan: Patient had a combination metabolic and respiratory acidosis. Suspect a respiratory acidosis component was related to hypoventilation from being inebriated and being off his BiPAP. Non-gap Metabolic acidosis most likely related to alcohol intoxication. Acidosis resolve and his general condition has improved (6) Alcohol abuse: Code(s): F10.10 - Alcohol abuse, uncomplicated Status: Acute Assessment and Plan: Patient has a history of alcohol abuse. Was intoxicated and fell from his wheelchair. Alcohol level was 240 on admission. Started on thiamine and folate. Scheduled Librium added. He was educated about the benefits of abstaining from alcohol use. He voiced understanding of this. Weaned off librium (7) Hyponatremia: Code(s): E87.1 - Hypo-osmol
== END 2022-05-04 08:40 | DRG 177 ==
LOC: ANHED 14:05 → ANHIMU 17:30 → ANH2MED 04-29 12:08
PROVIDERS: Internal Medicine; Nurse Practitioner Adult Health; Admitting Provider Internal Medicine; Emergency Provider Emergency Medicine; PCP Emergency Medicine; Visit Provider Student in an Organized Health Care Education/Training Program
DX: U07.1 COVID-19 (principal); J96.21 Acute and chronic respiratory failure with hypoxia; J96.22 Acute and chronic respiratory failure with hypercapnia; E87.2 Acidosis; E87.1 Hypo-osmolality and hyponatremia; I50.32 Chronic diastolic (congestive) heart failure; I48.19 Other persistent atrial fibrillation; F10.129 Alcohol abuse with intoxication, unspecified; W05.0XXA Fall from non-moving wheelchair, initial encounter; I49.8 Other specified cardiac arrhythmias; R29.6 Repeated falls; B96.5 Pseudomonas (aeruginosa) (mallei) (pseudomallei) as the cause of diseases classified elsewhere; I48.91 Unspecified atrial fibrillation; E11.42 Type 2 diabetes mellitus with diabetic polyneuropathy; J44.9 Chronic obstructive pulmonary disease, unspecified; K58.9 Irritable bowel syndrome, unspecified; N40.0 Benign prostatic hyperplasia without lower urinary tract symptoms; E78.2 Mixed hyperlipidemia; K21.9 Gastro-esophageal reflux disease without esophagitis; M19.90 Unspecified osteoarthritis, unspecified site; Z86.73 Personal history of transient ischemic attack (TIA), and cerebral infarction without residual deficits; Z99.81 Dependence on supplemental oxygen; Z79.82 Long term (current) use of aspirin; Z98.42 Cataract extraction status, left eye; Z98.41 Cataract extraction status, right eye; Z89.512 Acquired absence of left leg below knee; Z96.641 Presence of right artificial hip joint; Z87.891 Personal history of nicotine dependence; F32.A Depression, unspecified; F41.9 Anxiety disorder, unspecified; Y90.8 Blood alcohol level of 240 mg/100 ml or more; E86.0 Dehydration
CPT/HCPCS: 36415; 36600; 70450; 71045; 72100; 72125; 80048; 80053; 80069; 80307; 81001; 82375; 82565; 82570; 82728; 82805; 82948; 83050; 83615; 83735; 83880; 84100; 84300; 84443; 84460; 84484; 85025; 85027; 85380; 85610; 85730; 86140; 87070; 87077; 87186; 87205; 87449; 87804; 87899; 93005; 94002; 94003; 94640; 96361; 96365; 96366; 96372; 96375; 96376; 97161; 97165; 99285; A9270; C9803; G0378; J0248; J0692; J1100; J1650; J1815; J2060; J2270; J2405; J3411; J3475; J7030; U0003; U0005

== ENCOUNTER 2022-05-28 20:26 | Emergency (ER) | payer OTHER, MEDICAID, SELFPAY ==
--- NOTE | ~2022-05-28 | CT_ITS ---
EXAMINATION: CT lumbar spine wo con DATE: 05/28/2022 21:30 INDICATION: Low back pain, fall from stand, eval for fracture . TECHNIQUE: Computed tomography (CT) of the lumbar spine was performed without intravenous contrast. A utomated exposure control and iterative reconstruction technique were employed. The dose-length produ ct was 622.17 mGy-cm. COMPARISON: X-ray L-spine 05/03/2022. FINDINGS: 5 nonrib-bearing lumbar-type vertebral bodies. Pedicles intact. Normal vertebral body align ment. Acute appearing anterolateral endplate deformity at L4. Stable compression deformities at T12 a nd L1. Disc spaces maintained. Normal facets and posterior elements. IMPRESSION: 1. Mild wedge compression deformity of L4, likely acute. Reviewed, dictated and finalized at location K.
--- NOTE | ~2022-05-28 | XR_ITS ---
EXAMINATION: XR chest 1V Exam Date/Time: 05/28/2022 21:32 CDT HISTORY: BILATERAL CHEST PAINS X 1 DAY AFTER FALL.HX HTN, CHF, ASTHMA Comparison: 04/30/2022. RESULT: Lines, tubes, and devices: None. Lungs and pleura: Senescent change. Bibasilar scar/atelectasis. Cardiomediastinal silhouette: Stable. Other: No acute osseous or upper abdominal finding. IMPRESSION: No acute cardiopulmonary process. Reviewed, dictated and finalized at location K.
[2022-05-28 20:25] VITALS: BP 165/99; PULSE 90; RESP 22; TEMP 36.9; O2SAT 98
--- NOTE | 2022-05-28 20:37 | ECG_ITS ---
Measurements Intervals [place] Rate: 80 P: MO: 0 QRS: 39 QRSD: 82 T: 240 QT: 341 QTc: 395 Interpretive Statements ATRIAL FIBRILLATION LOW QRS VOLTAGE IN PRECORDIAL LEADS ANTEROSEPTAL MYOCARDIAL INFARCTION , OF INDETERMINATE AGE Electronically Signed On 05-29-2022 11:37:56 CDT by Sammy Justice M.D.
--- NOTE | 2022-05-28 20:40 | ED.BACK ---
HPI - Back Pain/Injury General Chief Complaint: Back Pain/Injury Stated Complaint: BACK PAIN AFTER FALL History of Present Illness HPI Narrative: This is a 76-year-old male with past medical history of COPD on 2 L O2, presents to the emergency department by EMS for back pain. Patient states he fell from his bed, landing on his bottom with immediate low back pain described as sharp, moderate to severe,radiating to the bilateral legs. He denies head trauma or loss of consciousness. Unknown arrival with EMS, the patient began complaining of bilateral chest pain, described as dull, not aggravated or alleviated by anything and not radiating. Patient states he does not feel safe at home and wishes to be placed. EMS reports vital signs remarkable for hypertension, ECG performed by them showed A. fib. Related Data Home Medications Medication Instructions Recorded Confirmed aspirin 325 mg tablet,delayed 325 mg PO DAILY 12/02/20 04/27/22 release folic acid 1 mg tablet 1 mg PO DAILY 12/02/20 04/27/22 gabapentin 100 mg capsule 400 mg PO TID 11/06/21 04/27/22 albuterol sulfate 90 mcg/actuation 2 puff inhalation QID 04/27/22 04/27/22 aerosol inhaler Allergies Allergy/AdvReac Type Severity Reaction Status Date / Time niacin Allergy Intermediate Rash/itchin Verified 05/28/22 20:37 g hydrocodone [From [facility]] AdvReac Confusion Verified 05/28/22 20:37 Review of Systems Review of Systems: CONSTITUTIONAL: Denies fever, chills, or sweats. EYES: Denies visual changes, redness, or discharge. CARDIOVASCULAR: chest pain, Denies palpitations, or edema. RESPIRATORY: Denies cough or dyspnea. GASTROINTESTINAL: Denies abdominal pain, nausea, vomiting, or diarrhea. GENITOURINARY: Denies dysuria or hematuria. SKIN: Denies rash or itching. MUSCULOSKELETAL: back pain, Denies joint pain, or myalgia. NEUROLOGIC: Denies headache, numbness, dizziness, or weakness. PSYCHIATRIC: Denies anxiety or depression. [facility] Past Medical History Medical History Alcohol abuse History of alcohol abuse though he has cut back significantly in the last 6 months or so. Now drinking a couple of beers 5 days a week. Anxiety Asthma Benign prostatic hyperplasia Cerebrovascular accident Chronic abscess of lower leg Chronic anemia Chronic hyponatremia Chronic obstructive pulmonary disease Chronic respiratory failure with hypoxia, on home O2 therapy Depression Diabetic foot ulcer Diabetic peripheral neuropathy Diastolic congestive heart failure Former smoker Gastroesophageal reflux disease Hearing loss Hypertension Ichthyosis vulgaris Irritable bowel syndrome Mixed hyperlipidemia MRSA (methicillin resistant Staphylococcus aureus) septicemia (09/2020) Osteoarthritis Osteomyelitis History of osteomyelitis of both feet requiring multiple amputations. Pancreatitis (03/2021) Persistent atrial fibrillation Not on long-term anticoagulation. Takes aspirin 325 mg daily. Pulmonary hypertension Echocardiogram on 06/08/2021 showed normal left ventricular systolic function with an EF estimated 65 to 70%, mildly increased LV wall thickness, severely enlarged right atrial chamber, mildly enlarged left atrial chamber, mild mitral valve and trace tricuspid valve regurgitation, and mild pulmonary hypertension with an estimated pulmonary arterial systolic pressure of 35 mmHg. Sacrum and coccyx fracture Type 2 diabetes mellitus Hemoglobin A1c was 6.6% on 06/09/2021. Surgical History Surgical History History of bilateral cataract extraction History of incision and drainage Right hip abscess. 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 Heaton History of tonsillectomy History of total right hip arthroplasty (2002) History of transmetatarsal amputation of left foot (2019) History of transmetatarsal amputation of right foot (2016) History of ventral dottie
[2022-05-28] MEDS: ACETAMINOPHEN 500 MG TABLET 1000 MG PO (21:03)
[2022-05-28] MEDS: ASPIRIN 81 MG CHEWABLE TABLET 324 MG PO (21:03)
[2022-05-28 21:13] VITALS: BP 150/89; PULSE 82; RESP 20; O2SAT 100
[2022-05-28 21:27] LABS: Basophils Percent Auto 0.5 % (0.2-1.2); Eosinophils Absolute Auto 0.2 K/mm3 (0-0.3); Eosinophils Percent Auto 2.3 % (0-4.4); Hematocrit 38.3 % (42.0-52.0); Hemoglobin 11.4 g/dL (14.0-18.0); Immature Granulocyte Absolute 0.04 K/mm3 (0.00-0.031); Immature Granulocyte Percent A 0.5 % (0-0.5); Lymphocytes Absolute Auto 0.84 K/mm3 (0.9-3.2); Lymphocytes Percent Auto 11.3 % (18.3-44.2); Mean Corpuscular HGB Conc 29.8 g/dl (32-36); Mean Corpuscular Hemoglobin 25.9 pg (26-34); Mean Platelet Volume 9.2 fl (7.4-10.4); Monocytes Absolute Auto 0.7 K/mm3 (0.1-0.6); Monocytes Percent Auto 8.9 % (2.6-8.5); Neutrophils Absolute Auto 5.7 K/mm3 (1.3-6.7); Neutrophils Percent Auto 76.5 % (45.5-73.1); Platelet Count Result 226 k/mm3 (150-375); Red Cell Distribution Width 14.6 % (11.5-14.5); White Blood Count 7.4 K/mm3 (4.5-10.0)
[2022-05-28 21:42] VITALS: BP 150/86; PULSE 79; RESP 22; O2SAT 96
[2022-05-28] MEDS: NITROGLYCERIN SL 0.4 MG TABLET SUBLINGUAL (21:43)
--- NOTE | 2022-05-28 21:43 | PC.NURSE ---
1st dose SL nitroglycrine given. Pt rates pain 04/06. VSS.
--- NOTE | 2022-05-28 21:47 | PC.NURSE ---
2nd dose nitroglycerine HELD. Pt rates CP pain 0/10.
[2022-05-28 21:48] VITALS: BP 106/73; PULSE 99; RESP 18; O2SAT 99
[2022-05-28] MEDS: MORPHINE SULFATE (*CRX) 4 MG/ML INJ IV PUSH (22:11)
[2022-05-28 22:32] VITALS: BP 138/72; PULSE 92; RESP 20; O2SAT 99
[2022-05-28 22:37] LABS: Alanine Aminotransferase 10 U/L (6-50); Albumin Level 3.8 g/dL (3.5-5.1); Alkaline Phosphatase 120 U/L (38-126); Anion Gap 9 mmol/L (8-16); Aspartate Amino Transferase 27 U/L (17-59); Bilirubin,Total 0.6 mg/dL (0.2-1.3); Blood Urea Nitrogen 5 mg/dL (9-20); Calcium 8.4 mg/dL (8.4-10.2); Carbon Dioxide 33 mmol/L (22-30); Chloride 93 mmol/L (98-107); Estimated Glomerular Filt Rate > 60; Glucose 135 mg/dL (65-110); Potassium 3.7 mmol/L (3.4-5.0); Sodium 135 mmol/L (137-145)
[2022-05-28 22:51] LABS: Troponin I 0.063 ng/mL (0.000-0.034)
--- NOTE | 2022-05-28 23:49 | PC.NURSE ---
2327: [facility] facilities are at capacity.
--- NOTE | 2022-05-28 23:50 | PC.NURSE ---
2343: [facility] - [facility] facilities are at capacity. Patient placed on 'waitlist'. Once appropriate bed becomes available, they will call us and obtain information to start the transfer process. No ETA when a bed may become available.
[2022-05-29] VITALS (7 sets, daily range): BP systolic 149–160; BP diastolic 78–102; PULSE 80–107; RESP 18–25; O2SAT 97–100
[2022-05-29] LABS: Troponin I 0.071 ng/mL (0.000-0.034)
--- NOTE | 2022-05-29 00:16 | PC.NURSE ---
0008: [facility]. NO BEDS AVAILABLE. PATIENT PLACED ON WAITLIST. WCB WHEN BED BECOMES AVAILABLE TO COMPLETE TRANSFER PROCESS.
[2022-05-29] MEDS: HYDROmorphone HCL INJ (*CRX) 1 MG/ML SYR 0.5 MG IV PUSH ×2 (01:25→05:20)
[2022-05-29 08:48] LABS: SARS-CoV-2 RNA PCR Negative
--- NOTE | 2022-05-29 09:40 | PCCCNOTE ---
met with patient bedside, patient is alert and oriented. patient states that he can no longer take care of himself as he is afraid of dying from a fall. patient states that he has been to [facility]. SNF days are exhausted, cc faxed a referral to [facility] for an [place] bed. [facility] has accepted patient, waiting on bed placement at this time. certified physical therapist assistant notified.
--- NOTE | 2022-05-29 12:15 | PC.NURSE ---
report called to [facility] and spoke with Micheline. pt's chart faxed to [phone] per their request.
== END 2022-05-29 14:35 ==
PROVIDERS: Preventive Medicine Aerospace Medicine; Emergency Provider Emergency Medicine; PCP Emergency Medicine
DX: S32.040A Wedge compression fracture of fourth lumbar vertebra, initial encounter for closed fracture (principal); I48.19 Other persistent atrial fibrillation; Z20.822 Contact with and (suspected) exposure to COVID-19; J44.9 Chronic obstructive pulmonary disease, unspecified; J96.11 Chronic respiratory failure with hypoxia; E11.42 Type 2 diabetes mellitus with diabetic polyneuropathy; I50.30 Unspecified diastolic (congestive) heart failure; E78.2 Mixed hyperlipidemia; K58.9 Irritable bowel syndrome, unspecified; M19.90 Unspecified osteoarthritis, unspecified site; I27.20 Pulmonary hypertension, unspecified; Z99.81 Dependence on supplemental oxygen; Z86.14 Personal history of Methicillin resistant Staphylococcus aureus infection; Z79.82 Long term (current) use of aspirin; Z87.891 Personal history of nicotine dependence; Z98.42 Cataract extraction status, left eye; Z98.41 Cataract extraction status, right eye; Z89.512 Acquired absence of left leg below knee; Z89.431 Acquired absence of right foot; W06.XXXA Fall from bed, initial encounter
CPT/HCPCS: 36415; 71045; 72131; 80053; 84484; 85025; 93005; 96374; 96375; 96376; 99284; A9270; C9803; J1170; J2270; U0003; U0005

== ENCOUNTER 2024-05-25 14:30 | Inpatient (IN) | payer MEDICARE, SELFPAY ==
[2024-05-25] VITALS (22 sets, daily range): BP systolic 128–158; BP diastolic 46–87; PULSE 72–101; RESP 16–24; TEMP 36.3–36.9; O2SAT 95–100; BMI 23.1
--- NOTE | ~2024-05-25 | XR_ITS ---
EXAMINATION: XR chest 1V portable DATE: 05/27/2024 10:52 INDICATION: Pneumonia. TECHNIQUE: A single frontal view of the chest was obtained. COMPARISON: Chest single view 05/25/2024, CT abdomen and pelvis 04/18/2021 FINDINGS: Baltazar B-lines are noted. There are mild airspace opacities in the all right lung zones and in left mid and lower lung zones. No pleural effusion or pneumothorax. The heart size is normal. IMPRESSION: 1. Diffuse lung disease with worsening in right upper lobe, consistent with pulmonary edema versus pn eumonia. Reviewed, dictated and finalized at location A. IMPRESSION: 1. Diffuse lung disease with worsening in right upper lobe, consistent with pul monary edema versus pneumonia.
--- NOTE | ~2024-05-25 | US_ITS ---
EXAMINATION: US renal BI DATE: 05/26/2024 10:08 INDICATION: Acute kidney injury. TECHNIQUE: Multiple ultrasound grayscale images of the kidneys were obtained. COMPARISON: Ultrasound 03/19/2022 FINDINGS: The right kidney measures 10.4 x 5.5 x 6.3 cm. The left kidney measures 11.7 x 5.8 x 4.7 cm. The kidn eys demonstrate normal parenchymal echogenicity. There is no hydronephrosis. The bladder is decompres sed by a Echols catheter. IMPRESSION: 1. Normal kidney sizes. No hydronephrosis. Reviewed, dictated and finalized at location A.
--- NOTE | ~2024-05-25 | XR_ITS ---
XR chest 1V portable Ordering provider: Margo De La Torre PA-C History: 78 years Male with . palpitations . Comparison: May 28, 2022 FINDINGS: MEDIASTINUM: The cardiac silhouette is slightly enlarged. LUNGS: No effusions or pneumothorax. Bilateral opacification of the upper and lower lobes suggestive of pneumonia. OTHER: No free air under the diaphragm. Degenerative changes of the spine. IMPRESSION: Bilateral pneumonia. Reviewed, dictated and finalized at location A. IMPRESSION: Bilateral pneumonia.
--- NOTE | 2024-05-25 14:33 | ECG_ITS ---
Test Date: 2024-05-25 14:36:38 Measurements Intervals Gould Rate: 89 P: 0 CO: 0 QRS: 17 QRSD: 86 T: 73 QT: 330 QTc: 403 Interpretive Statements ATRIAL FIBRILLATION ANTEROSEPTAL MYOCARDIAL INFARCTION , OF INDETERMINATE AGE CONSIDER INFERIOR INFARCT, AGE INDETERMINATE BORDERLINE ST-T WAVE ABNORMALITY- HIGH LATERAL LEADS ABNORMAL ECG No previous ECG available for comparison Electronically Signed On 05-25-2024 15:01:13 CDT by Yahir Lopez D.O.
--- NOTE | 2024-05-25 14:42 | ED.ARRPALP ---
HPI - Arrhythmia/Palpitations General Chief Complaint: Arrhythmia/Palpitations Stated Complaint: heart palpitations Time Seen by Provider: 05/25/24 14:33 Source: patient and old records reviewed Mode of arrival: EMS Limitations: no limitations and clinical condition History of Present Illness HPI narrative: Patient is a 78 y/o male, with PMH of DM, CHF, pulm HTN, AFIB, alcohol abuse, COPD, L BKA, who presents to the ED via EMS with report of palpitations. Patient is a resident of [facility]. Patient reports he developed palpitations earlier this morning. Stated that it felt as though his heart was racing. EMS was notified. Per EMS report, patient had nonsustained runs of V-tach en route. Patient denies previous history of AFIB, though I do see this in his records. On ASA 324mg, no other anticoagulation. Denies chest pain. He does report shortness breath, this states this is a chronic issue for him. He was noted to be hypoxic normal 2 L nasal cannula home oxygen at 89%. This was increased to 4 L. 94-96% on 4 L here. Patient is given Solu-Medrol and a nebulizer treatment EN route by EMS. Denies lower extremity swelling. Denies recent new cough. Related Data Home Medications Medication Instructions Recorded Confirmed aspirin 325 mg tablet,delayed 325 mg PO DAILY 12/02/20 04/27/22 release folic acid 1 mg tablet 1 mg PO DAILY 12/02/20 04/27/22 acetaminophen 650 mg 650 mg PO Q4H PRN 09/30/23 tablet,extended release baclofen 5 mg tablet 5 mg PO Q8H PRN 09/30/23 benzonatate 100 mg capsule 100 mg PO TID 09/30/23 bisacodyl 10 mg rectal suppository 10 mg RECTAL DAILY PRN 09/30/23 cetirizine 10 mg tablet 10 mg PO DAILY PRN 09/30/23 cholecalciferol (vitamin D3) 25 25 mcg PO DAILY 09/30/23 mcg (1,000 unit) tablet cyanocobalamin (vitamin B-12) 500 250 mcg PO DAILY 09/30/23 mcg tablet fluticasone fur. 100 mcg-umeclid 1 inh inhalation DAILY 09/30/23 62.5 mcg-vilant 25 mcg inhalat.powder (Trelegy Ellipta) gabapentin 300 mg capsule 300 mg PO TID 09/30/23 hydrocortisone 1 % topical cream 1 applic topical TID PRN 09/30/23 (Cortisone (hydrocortisone)) ipratropium 0.5 mg-albuterol 3 mg 3 ml inhalation Q4H PRN 09/30/23 (2.5 mg base)/3 mL nebulization soln ipratropium bromide 17 2 puff inhalation Q4H PRN 09/30/23 mcg/actuation HFA aerosol inhaler (Atrovent HFA) lisinopril 2.5 mg tablet 2.5 mg PO DAILY 09/30/23 loratadine 10 mg tablet (Claritin) 10 mg PO DAILY 09/30/23 magnesium citrate (Citroma oral 300 ml PO DAILY PRN 09/30/23 solution) magnesium hydroxide 400 mg/5 mL 30 ml PO QHS 09/30/23 oral suspension potassium chloride 10 mEq 10 meq PO DAILY 09/30/23 tablet,extended release prednisone 2.5 mg tablet 2.5 mg PO DAILY 09/30/23 sertraline 50 mg tablet 100 mg PO QHS 09/30/23 sodium phosphates 19 gram-7 118 ml RECTAL ONCE PRN 09/30/23 gram/118 mL enema (Fleet Enema) tramadol 50 mg tablet 50 mg PO Q6H PRN 09/30/23 Allergies Allergy/AdvReac Type Severity Reaction Status Date / Time niacin Allergy Intermediate Rash/itchin Verified 09/30/23 15:05 g hydrocodone [From [place]] AdvReac Confusion Verified 09/30/23 15:05 Review of Systems Review of Systems: CONSTITUTIONAL: Denies fever, chills, or sweats. ENT: Denies rhinorrhea, congestion, sore throat. CARDIOVASCULAR: See HPI. RESPIRATORY: See HPI. GASTROINTESTINAL: Denies abdominal pain, nausea, vomiting All systems reviewed & are unremarkable except as noted in HPI and below PMFSH Past Medical History Medical History Alcohol abuse History of alcohol abuse though he has cut back significantly in the last 6 months or so. Now drinking a couple of beers 5 days a week. Anxiety Asthma Benign prostatic hyperplasia Cerebrovascular accident Chronic abscess of lower leg Chronic anemia Chronic hyponatremia Chronic obstructive pulmonary disease Chronic r
[2024-05-25 15:01] LABS: Basophils Percent Auto 0.2 % (0.2-1.2); Eosinophils Percent Auto 0.2 % (0-4.4); Hematocrit 29.2 % (42.0-52.0); Hemoglobin 9.2 g/dL (14.0-18.0); Immature Granulocyte Absolute 0.07 K/mm3 (0.00-0.031); Immature Granulocyte Percent A 0.4 % (0-0.5); Lymphocytes Absolute Auto 0.84 K/mm3 (0.9-3.2); Lymphocytes Percent Auto 5.3 % (18.3-44.2); Mean Corpuscular HGB Conc 31.5 g/dl (32-36); Mean Corpuscular Hemoglobin 30.1 pg (26-34); Mean Corpuscular Volume 95.4 fl (80-100); Mean Platelet Volume 9.8 fl (7.4-10.4); Monocytes Percent Auto 6.3 % (2.6-8.5); Neutrophils Absolute Auto 13.8 K/mm3 (1.3-6.7); Neutrophils Percent Auto 87.6 % (45.5-73.1); Platelet Count Result 197 k/mm3 (150-375); Red Blood Count 3.06 M/mm3 (4.6-6.20); Red Cell Distribution Width 13.4 % (11.5-14.5); White Blood Count 15.8 K/mm3 (4.5-10.0)
[2024-05-25 15:11] LABS: Alanine Aminotransferase 17 U/L (6-50); Albumin Level 4.2 g/dL (3.5-5.1); Alkaline Phosphatase 111 U/L (38-126); Anion Gap 14 mmol/L (4-12); Aspartate Amino Transferase 33 U/L (17-59); Bilirubin,Total 0.6 mg/dL (0.2-1.3); Blood Urea Nitrogen 57 mg/dL (9-20); Calcium 8.2 mg/dL (8.4-10.2); Carbon Dioxide 17 mmol/L (22-30); Chloride 107 mmol/L (98-107); Estimated CRCL calculation 15 ml/min; Estimated Glomerular Filt Rate 14; Glucose 118 mg/dL (65-110); Magnesium 1.8 mg/dL (1.6-2.3); Potassium 4.8 mmol/L (3.4-5.0); Sodium 138 mmol/L (137-145)
[2024-05-25 15:12] LABS: INR 1.2; Partial Thromboplastin Time 34.6 Seconds (22.3-36.8); Prothrombin Time 15.6 Seconds (11.1-14.7)
[2024-05-25] MEDS: IPRATROPIUM BR 0.02% INH SOLN 0.5 MG/2.5 ML VIAL 1.5 MG INHALATION (15:20)
[2024-05-25] MEDS: LEVALBUTEROL NEB 1.25 MG/3 ML 2.5 MG INHALATION (15:20)
[2024-05-25 15:27] LABS: NT Pro B Type Natriuretic Pept 8060 pg/mL (19.9-100); Troponin I 0.133 ng/mL (0.000-0.034)
[2024-05-25 15:42] LABS: Alveolar/Arterial O2 Gradient 78.3 mmHg; Base Excess ABG -8.7 mEq/l (+/-2.0); Carboxyhemoglobin 0.1 % THb (0-2.0); Fractional Inspired Oxygen 32 %; HCO3 ABG 17.6 mEq/l (22.0-26.0); Methemoglobin ABG 0.2 %THb (0-1.5); Oxygen Content ABG 13.9 %vol (16.0-22.0); Oxyhemoglobin 97.4 % THb (90.0-100.0); PCO2 ABG 39.5 mmHg (35.0-45.0); PO2 ABG 103.6 mmHg (80.0-100.0); PO2 FiO2 Ratio Arterial Blood 3.24 %; Reduced Hemoglobin 2.3 %THb (0-5.0)
[2024-05-25 15:44] LABS: pH ABG 7.267 (7.350-7.450)
[2024-05-25 15:45] LABS: Device NASAL CANNULA; Modified Allen's Test Pass; Site Drawn LEFT RADIAL
[2024-05-25] MEDS: MAGNESIUM SULF 1 GM/D5W 100 ML 1 GM/100 ML BAG IVPB (15:47)
[2024-05-25] MEDS: SODIUM CHLORIDE 0.9% IV 1,000 ML 999 ML IV CONT (15:48)
[2024-05-25 15:59] LABS: Influenza A QL RT-PCR Negative (Negative); Influenza B QL RT-PCR Negative (Negative); RSV RNA, RT-PCR Negative (Negative); SARS-CoV-2 RNA PCR Negative (Negative)
[2024-05-25 16:07] LABS: Ethanol < 10 mg/dL (<10)
[2024-05-25] MEDS: AZITHROMYCIN 500 MG/NS 250 ML 500 MG/250 ML BAG 250 MG IVPB (16:29)
--- NOTE | 2024-05-25 17:20 | PC.NURSE ---
Gave update to Fabiano - spoke to Karishma and informed her of pt admitted diagnoses.
[2024-05-25 17:45] LABS: Lactic Acid Reflex 0.7 mmol/L (0.7-2.0)
--- NOTE | 2024-05-25 18:05 | PM.IMHP ---
H&P: HPI History of Present Illness Date/Time: 05/25/24 21:30 Chief Complaint: Palpitations. Narrative: This is a 78-year-old male with multiple medical problems including chronic respiratory failure on oxygen, chronic obstructive pulmonary disease, atrial fibrillation not on chronic anticoagulation due to history of fall, type 2 diabetes mellitus, hypertension, and other comorbidities who presented to the emergency department via EMS from [facility] for evaluation of palpitations. The patient is not the greatest historian and provides the following history. He developed palpitations and sensations of racing heart quite suddenly this morning while doing nothing in particular. He felt a little more short of breath than usual at that time with mild nausea. His appetite has been fair. He denies syncope, near syncope, chest pain, pleuritic pain, cough, vomiting, diarrhea, fever, sweats, and sick contacts. He also denies dysphagia and concerns for aspiration. EMS was summoned and he was found to have an SpO2 of 89% on his usual 2 L and he was increased to 4 L and he was administered Solu-Medrol and nebulizer treatment. EMS also reports that he had a run of nonsustained ventricular tachycardia en route to the hospital and the telemetry tracing may provided showed 3 concurrent PVCs. In the ED: He was afebrile on arrival with stable vital signs. EKG showed rate controlled atrial fibrillation with no acute ST segment depressions or elevations. Labs were significant for WBC count of 15.8, hemoglobin 9.2, carbon dioxide 17, anion gap 14, BUN 57, creatinine 4.10, lactic acid 0.7, troponin 0.133, proBNP 8060. Urine was positive for 2+ protein trace ketones. ABG showed a pH of 7.267, pCO2 39.5, PO2 103.6, bicarb 17.6. Ethyl alcohol level was undetectable. He tested negative for influenza, RSV, and COVID. Chest x-ray showed bilateral pneumonia. He was given a L normal saline bolus, magnesium sulfate 1 g, ceftriaxone 1 g, and azithromycin 500 mg. He is being admitted in this setting for close monitoring, further treatment, and Cardiology consultation. Review of Systems Review of Systems: 12 systems were reviewed and are negative except for as per HPI. [facility] Past Medical History Medical History (Updated 05/25/24 @ 21:09 by Kierra Mckeon PA-C) Alcohol abuse Anxiety Asthma Benign prostatic hyperplasia Cerebrovascular accident Chronic abscess of lower leg Chronic anemia Chronic obstructive pulmonary disease Chronic respiratory failure with hypoxia, on home O2 therapy Depression Diabetic foot ulcer Diabetic peripheral neuropathy Diastolic congestive heart failure Former smoker Gastroesophageal reflux disease Hearing loss Hypertension Ichthyosis vulgaris Irritable bowel syndrome Mixed hyperlipidemia MRSA (methicillin resistant Staphylococcus aureus) septicemia (09/2020) Osteoarthritis Osteomyelitis History of osteomyelitis of both feet requiring multiple amputations. Pancreatitis (03/2021) Persistent atrial fibrillation Pulmonary hypertension Echocardiogram on 06/08/2021 showed normal left ventricular systolic function with an EF estimated 65 to 70%, mildly increased LV wall thickness, severely enlarged right atrial chamber, mildly enlarged left atrial chamber, mild mitral valve and trace tricuspid valve regurgitation, and mild pulmonary hypertension with an estimated pulmonary arterial systolic pressure of 35 mmHg. Sacrum and coccyx fracture Type 2 diabetes mellitus Hemoglobin A1c was 6.6% on 06/09/2021. Surgical History Surgical History History of bilateral cataract extraction History of incision and drainage Right hip abscess. 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 Heaton History of tonsillectomy History of total right hip arthroplasty (2002) History of transmetatarsal amputation of left foot (2019) History of transmetatarsal amputation of right foot (2016)
[2024-05-25 18:08] LABS: Appearance Urine Clear (Clear); Bacteria Urine None Seen /hpf; Bilirubin Urine Negative (Negative); Blood Urine Negative (Negative); Color Urine Yellow (Yellow); Glucose Urine UA Negative (Negative); Ketones Urine Trace mg/dL (Negative); Leukocyte Esterase Ur Negative LEU/UL (Negative); Nitrate Urine Negative (Negative); Protein Urine 2+ mg/dL (Negative); RBC Urine 0-2 /hpf (0-2); Specific Grav Ur 1.013 (1.001-1.035); Squamous Epithelial Cell Urine None Seen /hpf (Few); Urobilinogen Urine 0.2 mg/dL (<2.0); WBC Urine 0-5 /hpf (0-3)
[2024-05-25 18:10] LABS: Add Urine Microscopic? YES
[2024-05-25] MEDS: SODIUM CHLORIDE 0.9% IV 1,000 ML 100 ML IV CONT (18:32)
--- NOTE | 2024-05-25 18:46 | ADMGEN ---
This patient, Ludin Mcguire, was admitted to IMU Room 214-01 on 05/25/24 at 1804. Patient/family oriented to hospital policies and general routines including ID bracelet, bed and alarms, visiting hours, pain management, procedures, bathroom and other care routines, personal items, smoking policy, room service/diet, and visiting hours. Information on how to activate the Rapid Response Team has been discussed. Patient/Family are encouraged to report perceived risks to care and to ask questions if they do not understand what they are told or what they should do.
[2024-05-25 19:01] LABS: Troponin I 0.142 ng/mL (0.000-0.034)
--- NOTE | 2024-05-25 19:22 | PM.CNCAR ---
Assessment and Plan Assessment and plan (1) Pneumonia: Qualifiers: Laterality: bilateral Lung location: unspecified part of lung Pneumonia type: due to unspecified organism Qualified Code(s): J18.9 - Pneumonia, unspecified organism Code(s): J18.9 - Pneumonia, unspecified organism Status: Acute Assessment and Plan: On antibiotics. (2) Elevated troponin: Code(s): R79.89 - Other specified abnormal findings of blood chemistry Status: Acute Assessment and Plan: Moderately elevated to .142 has not peaked yet. But not unusual rise wit pneumonia, acute respiratory failure, acute renal failure, COPD exac. Trend to peak. (3) Acute on chronic hypoxic respiratory failure: Code(s): J96.21 - Acute and chronic respiratory failure with hypoxia Status: Acute (4) Acute renal failure: Qualifiers: Acute renal failure type: unspecified Qualified Code(s): N17.9 - Acute kidney failure, unspecified Code(s): N17.9 - Acute kidney failure, unspecified Status: Acute (5) COPD exacerbation: Code(s): J44.1 - Chronic obstructive pulmonary disease with (acute) exacerbation Status: Chronic (6) Persistent atrial fibrillation: Code(s): I48.19 - Other persistent atrial fibrillation Status: Acute Assessment and Plan: CHADSVasc 4. On Aspirin 325 mg daily and not on anticoagulation, but he is interested. Rate is not fast. If no other invasive procedure planned, will start Eliquis 2.5 mg BID. Monitor for VT as NSVT was reported by EMS. Obtain echo. (7) HTN (hypertension): Qualifiers: Hypertension type: essential hypertension Qualified Code(s): I10 - Essential (primary) hypertension Code(s): I10 - Essential (primary) hypertension Status: Chronic Assessment and Plan: Mildly high. Avoid renal toxic medication. Monitor. (8) Smoker: Code(s): F17.200 - Nicotine dependence, unspecified, uncomplicated Status: Acute Assessment and Plan: Counseled regarding smoking cessation. History of Present Illness History of Present Illness Consult date/time: 05/25/24 19:22 Reason For Visit: ACUTE ON CHRONIC RESP FAILURE,PNA,ELEV TROP,ARF Narrative: 78 yr old man presents to ER via EMS for flutter in his chest. He has a history of PAF, hypertension, DM, COPD, smoking, left BKA. Reports he had fluttering in his chest at home and EMS was called and reported the monitor showed NSVT. He has sob and does feel he has a fever at times. Denies chest pain, orthopnea, PND, edema, dizziness. Review of Systems Review of Systems: All systems reviewed & are unremarkable except as noted in HPI and below Constitutional: Constitutional: Reports as per HPI, Reports fatigue and Reports fever(s) Cardiovascular: Cardiovascular: Reports as per HPI, Denies chest pain and Denies irregular heart rhythm Respiratory: Respiratory: Reports as per HPI and Reports dyspnea Gastrointestinal: Gastrointestinal: Reports as per HPI and Denies abdominal pain Genitourinary: Genitourinary: Reports as per HPI and Denies dysuria Musculoskeletal: Musculoskeletal: Reports as per HPI Neurologic: Reports as per HPI, Denies dizziness and Denies syncope [facility] Past Medical History Medical History Alcohol abuse History of alcohol abuse though he has cut back significantly in the last 6 months or so. Now drinking a couple of beers 5 days a week. Anxiety Asthma Benign prostatic hyperplasia Cerebrovascular accident Chronic abscess of lower leg Chronic anemia Chronic hyponatremia Chronic obstructive pulmonary disease Chronic respiratory failure with hypoxia, on home O2 therapy Depression Diabetic foot ulcer Diabetic peripheral neuropathy Diastolic congestive heart failure Former smoker Gastroesophageal reflux disease Hearing loss Hypertension Ichthyosis vulgaris Irritable
[2024-05-25] MEDS: IPRATROPIUM BR 0.02% INH SOLN 0.5 MG/2.5 ML VIAL INHALATION (20:59)
[2024-05-25] MEDS: LEVALBUTEROL NEB 1.25 MG/3 ML 0.63 MG INHALATION (20:59)
[2024-05-25] MEDS: APIXABAN 2.5 MG TABLET PO (21:11)
[2024-05-25 21:29] LABS: Glucose Point of Care 291 mg/dl (65-105)
[2024-05-25 21:55] LABS: Troponin I 0.145 ng/mL (0.000-0.034)
[2024-05-25] MEDS: guaiFENesin 12 HR 600 MG TABCR PO (22:02)
[2024-05-25] MEDS: EUCERIN CREAM 120 GM JAR 1 APPLIC TOPICAL (22:02)
[2024-05-26] VITALS (18 sets, daily range): BP systolic 132–156; BP diastolic 53–79; PULSE 68–117; RESP 16–28; TEMP 36.1–36.7; O2SAT 96–100
--- NOTE | 2024-05-26 | ECHO_ITS ---
Patient Info Name: Ludin Mcguire Age: 78 years : 1945 Gender: Male Ht: 72 in Wt: 170 lbs BSA: 1.98 m2 HR: 74 bpm BP: 151 / 55 mmHg Heart Rhythm: Atrial Fibrillation Technical Quality: Fair Exam Date: 05/26/2024 10:27 AM Exam Location: Echo Lab Patient Status: Inpatient Admit Date: 05/25/2024 Staff Ordering Physician: Yahir Lopez DO Tube Wrapper: Mila Hagen RDCS Attending Provider: Ling Dhillon MD Referring Physician: John BURCIAGA; Exam Type: CA echo doppler color flow Study Info Indications - SOB Complete two-dimensional, color flow and Doppler transthoracic echocardiogram is performed. Summary 1. Complete two-dimensional, color flow and Doppler transthoracic echocardiogram is performed. 2. Left ventricular chamber dimension is normal. 3. Left ventricular systolic function is normal, estimated at 60-65%. 4. The left ventricular diastolic function is abnormal. 5. E/e' 11 is mildly elevated. 6. Atrial fibrillation. 7. Right atrial chamber dimension is mildly enlarged. 8. The aortic valve is not well visualized. Cannot determine number of aortic valve leaflets. 9. There is mild aortic valve stenosis based on visual estimation but with a peak velocity of 168 cm/s, mean gradient of 7 mmHg, and aortic valve area of 2.2 cm2. 10. There is moderate aortic valve sclerosis. 11. The mitral valve has mildly calcified annulus. 12. There is mild mitral valve regurgitation. 13. There is mild tricuspid valve regurgitation. 14. Severe pulmonary hypertension, estimated pulmonary arterial systolic pressure is 66 mmHg. Left Ventricle E/e' 11 is mildly elevated. Atrial fibrillation. Left ventricular chamber dimension is normal. Left ventricular systolic function is normal, estimated at 60-65%. The left ventricular diastolic function is abnormal. Right Ventricle Right ventricular systolic function is normal and with normal TAPSE 2.4 cm. Right ventricular chamber dimension is normal. Left Atria Left atrial chamber dimension is normal. Right Atria Right atrial chamber dimension is mildly enlarged. Aortic Valve The aortic valve is not well visualized. Cannot determine number of aortic valve leaflets. There is mild aortic valve stenosis based on visual estimation but with a peak velocity of 168 cm/s, mean gradient of 7 mmHg, and aortic valve area of 2.2 cm2. There is moderate aortic valve sclerosis. There is no aortic valve regurgitation. Pulmonic Valve There is no pulmonic regurgitation. Mitral Valve The mitral valve has mildly calcified annulus. There is no mitral valve stenosis. There is mild mitral valve regurgitation. Tricuspid Valve There is mild tricuspid valve regurgitation. Severe pulmonary hypertension, estimated pulmonary arterial systolic pressure is 66 mmHg. Pericardium/Pleural There is no pericardial effusion. Inferior Vena Cava Normal inferior vena cava with >50% collapse upon inspiration consistent with normal right atrial pressure, 5 mmHg. Aorta The aortic root size at the sinus of Valsalva is normal. Left Ventricular Outflow Tract Name Value Normal LVOT 2D LVOT Diameter 1.8 cm LVOT Doppler LVOT Peak Gradient 12 mmHg LVOT Mean Gra
--- NOTE | 2024-05-26 00:11 | PCRCNOTE ---
Pt states he does not have a Cpap unit at home or uses one. No set up in room at this time.
[2024-05-26] MEDS: SODIUM CHLORIDE 0.9% IV 1,000 ML 100 ML IV CONT ×4 (03:46→21:43)
[2024-05-26 04:42] LABS: Hematocrit 30.2 % (42.0-52.0); Hemoglobin 9.2 g/dL (14.0-18.0); Mean Corpuscular HGB Conc 30.5 g/dl (32-36); Mean Corpuscular Hemoglobin 29.4 pg (26-34); Mean Corpuscular Volume 96.5 fl (80-100); Mean Platelet Volume 9.2 fl (7.4-10.4); Platelet Count Result 194 k/mm3 (150-375); Red Blood Count 3.13 M/mm3 (4.6-6.20); Red Cell Distribution Width 13.3 % (11.5-14.5); White Blood Count 20.4 K/mm3 (4.5-10.0)
[2024-05-26 04:56] LABS: Creatinine Urine 59.7 mg/dL; Total Protein Urine Random 76 mg/dL; Ur Ttl Prot Creatinine Ratio 1.27 mg/mg (0-0.20); Urea Random Urine 603 MG/DL
[2024-05-26 04:59] LABS: Sodium Urine Random 53 meq/L
[2024-05-26 05:05] LABS: Anion Gap 17 mmol/L (4-12); Blood Urea Nitrogen 60 mg/dL (9-20); Calcium 8.4 mg/dL (8.4-10.2); Carbon Dioxide 15 mmol/L (22-30); Chloride 109 mmol/L (98-107); Creatine Kinase 245 U/L (55-170); Estimated CRCL calculation 17 ml/min; Estimated Glomerular Filt Rate 16; Glucose 193 mg/dL (65-110); Magnesium 2.2 mg/dL (1.6-2.3); Potassium 4.7 mmol/L (3.4-5.0); Sodium 141 mmol/L (137-145)
[2024-05-26 05:06] LABS: Anion Gap 16 mmol/L (4-12); Blood Urea Nitrogen 59 mg/dL (9-20); Calcium 8.7 mg/dL (8.4-10.2); Carbon Dioxide 15 mmol/L (22-30); Chloride 109 mmol/L (98-107); Estimated CRCL calculation 16 ml/min; Estimated Glomerular Filt Rate 15; Glucose 195 mg/dL (65-110); Potassium 4.6 mmol/L (3.4-5.0); Sodium 140 mmol/L (137-145)
[2024-05-26 05:16] LABS: Eosinophil Urine None Seen % (None Seen); Urine Eos QC 2nd Tech Confirmed
[2024-05-26 05:25] LABS: Iron 27 ug/dL (49-181)
[2024-05-26 05:34] LABS: Percent Iron Saturation 11 % (20-50)
[2024-05-26 05:57] LABS: Thyroid Stimulating Hormone Reflex 0.239 uIU/mL (0.465-4.68); Vitamin B12 > 1000.0 pg/mL (239-931)
[2024-05-26 05:59] LABS: MRSA (PCR) NOT DETECTED (NOT DETECTE)
[2024-05-26 06:47] LABS: Glucose Point of Care 160 mg/dl (65-105)
[2024-05-26] MEDS: IPRATROPIUM BR 0.02% INH SOLN 0.5 MG/2.5 ML VIAL INHALATION (07:21)
[2024-05-26] MEDS: LEVALBUTEROL NEB 1.25 MG/3 ML 0.63 MG INHALATION (07:21)
[2024-05-26] MEDS: FLUTICASONE/UMECLIDIN/VILANTER 100-62.5-25 MCG ELLIPTA 1 PUFF INHALATION (07:22)
[2024-05-26 07:28] LABS: Folic Acid > 20.0 ng/mL (2.76->20)
--- NOTE | 2024-05-26 07:55 | PM.PNCARD ---
Progress Note: A&P Assessment and Plan (1) Pneumonia: Qualifiers: Laterality: bilateral Lung location: unspecified part of lung Pneumonia type: due to unspecified organism Qualified Code(s): J18.9 - Pneumonia, unspecified organism Code(s): J18.9 - Pneumonia, unspecified organism Status: Acute Assessment and Plan: On antibiotics. (2) Elevated troponin: Code(s): R79.89 - Other specified abnormal findings of blood chemistry Status: Acute Assessment and Plan: Moderately elevated to .145 and flattening out. But not unusual rise with pneumonia, acute respiratory failure, acute renal failure, COPD exac. (3) Acute on chronic hypoxic respiratory failure: Code(s): J96.21 - Acute and chronic respiratory failure with hypoxia Status: Acute (4) Acute renal failure: Qualifiers: Acute renal failure type: unspecified Qualified Code(s): N17.9 - Acute kidney failure, unspecified Code(s): N17.9 - Acute kidney failure, unspecified Status: Acute (5) COPD exacerbation: Code(s): J44.1 - Chronic obstructive pulmonary disease with (acute) exacerbation Status: Chronic (6) Persistent atrial fibrillation: Code(s): I48.19 - Other persistent atrial fibrillation Status: Acute Assessment and Plan: CHADSVasc 4. On Aspirin 325 mg daily and not on anticoagulation, but he is interested. Rate is not fast. Started Eliquis 2.5 mg BID and decrease aspirin 81 mg daily. Monitor for VT as NSVT was reported by EMS. Obtain echo. (7) HTN (hypertension): Qualifiers: Hypertension type: essential hypertension Qualified Code(s): I10 - Essential (primary) hypertension Code(s): I10 - Essential (primary) hypertension Status: Chronic Assessment and Plan: Mildly high. Avoid renal toxic medication. Monitor. (8) Smoker: Code(s): F17.200 - Nicotine dependence, unspecified, uncomplicated Status: Acute Assessment and Plan: Counseled regarding smoking cessation. Subjective Date/time seen: 05/26/24 07:55 Interval history: He has sob. No chest pains. Exam Const: General: cooperative, healthy appearing and comfortable Orientation/consciousness: oriented to person, oriented to place and oriented to time Resp: Auscultation: wheezes and diminished lung sounds Cardio: Rate: regular rate Rhythm: abnormal rhythm Heart sounds: no murmurs Other: Left below knee amputation. Neuro: General: oriented to person, oriented to place and oriented to time Extrem: Right lower extremity: no edema Other: Left below knee amputation. Right leg with no edema. Objective Data Vital Signs Vital Signs: Vital Signs - 24 hr 05/25/24 14:30 05/25/24 14:41 05/25/24 14:57 Temperature 98.5 F Pulse Rate 87 82 Respiratory Rate 20 20 Blood Pressure 158/87 H 144/71 H Pulse Oximetry 96 96 96 Oxygen Delivery Room Air Nasal Cannula Oxygen Flow Rate 3 Fraction of Inspired Oxygen 05/25/24 15:20 05/25/24 15:20 05/25/24 15:33 Temperature Pulse Rate 81 80 83 Respiratory Rate 20 20 24 H Blood Pressure Pulse Oximetry 98 Oxygen Delivery Nasal Cannula Oxygen Flow Rate 3 Fraction of Inspired Oxygen 32 05/25/24 14:42 05/25/24 15:17 05/25/24 15:31 Temperature Pulse Rate 87 83 86 Respiratory Rate 20 19 16 Blood Pressure 133/70 130/58 L Pulse Oximetry 95 100 98 Oxygen Delivery Oxygen Flow Rate Fraction of Inspired Oxygen 05/25/24 15:55 05/25/24 16:31 05/25/24 16:46 Temperature Pulse Rate 79 84 77 Respiratory Rate 20 21 H 20 Blood Pressure 135/73 128/63 148/69 H Pulse Oximetry 97 98 98 Oxygen Delivery Oxygen Flow Rate Fraction of Inspired Oxygen 05/25/24 17:01 05/25/24 17:16 05/25/24 18:10 Temperature 97.7 F Pulse Rate 81 72 81 Respiratory Rate 20 20 22 H Blood Pressure 130/66 137/67 148/55 H Pulse Oximetry 100 98 100 Oxygen
[2024-05-26 08:38] LABS: Free T4 Free Thyroxine Reflex 0.77 ng/dL (0.78-2.19)
[2024-05-26] MEDS: LORATADINE 10 MG TABLET PO (08:54)
[2024-05-26] MEDS: MULTIVITAMINS THERAPEUTIC TAB (*BKC) 1 TABLET PO (08:54)
[2024-05-26] MEDS: APIXABAN 2.5 MG TABLET PO ×2 (08:54→21:42)
[2024-05-26] MEDS: FOLIC ACID 1 MG TABLET PO (08:54)
[2024-05-26] MEDS: amLODIPine BESYLATE 10 MG TABLET PO (08:54)
[2024-05-26] MEDS: CHOLECALCIFEROL 1,000 UNITS TABLET 1000 UNITS PO (08:54)
[2024-05-26] MEDS: POTASSIUM CHLORIDE 10 MEQ ER TABLET PO (08:54)
[2024-05-26] MEDS: SIMVASTATIN 10 MG TABLET PO (08:54)
[2024-05-26] MEDS: GABAPENTIN 300 MG CAPSULE PO ×3 (08:55→17:28)
[2024-05-26] MEDS: ASPIRIN 81 MG ENTERIC TABLET PO (08:55)
[2024-05-26] MEDS: guaiFENesin 12 HR 600 MG TABCR PO ×2 (08:55→21:42)
[2024-05-26] MEDS: CYANOCOBALAMIN 250 MCG TABLET PO (08:55)
[2024-05-26] MEDS: predniSONE 2.5 MG TABLET PO (08:55)
[2024-05-26] MEDS: EUCERIN CREAM 120 GM JAR 1 APPLIC TOPICAL (08:56)
--- NOTE | 2024-05-26 09:04 | PM.IMPN ---
Progress Note: A&P Assessment and Plan (1) Hypertension: Code(s): I10 - Essential (primary) hypertension Status: Acute (2) Palpitations: Code(s): R00.2 - Palpitations Status: Acute Plan This is a 78-year-old male with multiple medical problems including chronic respiratory failure on oxygen, chronic obstructive pulmonary disease, atrial fibrillation not on chronic anticoagulation due to history of fall, type 2 diabetes mellitus, hypertension, and other comorbidities who presented to the emergency department via EMS from [facility] for evaluation of palpitations. The patient is not the greatest historian and provides the following history. He developed palpitations and sensations of racing heart quite suddenly this morning while doing nothing in particular. He felt a little more short of breath than usual at that time with mild nausea. NSVT Patient had palpitation before arrival Patient has history of AFib En route to the hospital EMS reports that he had a brief run of NSVT Currently patient has rate controlled atrial fibrillation EKG showed AFib rate control, no specific ST T-wave changes, Elevated troponins unstable, possibly due to CKD and demand ischemia due to AFib RVR Nonsustained V-tach possible related to multiple factors include acute renal failure, metabolic acidosis, sepsis, respiratory failure Acute renal failure, metabolic acidosis Elevated BUN creatinine upon arrival, creatinine 4.1, no recent creatinine level, creatinine 0.6 on May 28, 2022 Echols catheter was inserted and he was reportedly not retaining urine. Bicarbonate 15, possible due to acute renal failure or sepsis Avoid nephrotoxic medication UA showed 2+ protein Renal ultrasound ordered. Nephrology has been consulted. Multifocal pneumonia Patient has leukocytosis Chest x-ray shows bilateral pneumonia Continue ceftriaxone and azithromycin. Attempt sputum for culture. Continue scheduled bronchodilators. Acute respiratory failure, COPD exacerbation History of COPD, is a patient due to pneumonia He continue DuoNeb scheduled q.6 hours Albuterol nebulizer q.4 hours, Continue Trelegy Ellipta 1 puff daily Continue O2 therapy to keep pulse ox 92 Sepsis Patient has a tachycardia tachypnea, and leukocytosis Suspecting sepsis possible due to pneumonia Follow-up lactic acid Received normal saline bolus in the ED, continue normal saline IV 125 mL/hour Follow-up blood culture Anemia Check iron studies, B12, and folate for evaluation of normocytic anemia. Diabetes appears to be diet controlled. Initiate sliding scale insulin Trace ketone in the urine, Accu-Cheks, and hypoglycemic protocol. Check hemoglobin A1c. Subjective Date/time seen: 05/26/24 09:04 Interval history: I saw examined the patient today, patient is lethargic, still alert oriented x3, patient felt nauseous, generally weak, patient also has cough and some shortness breath at rest Exam Narrative: GENERAL: Pleasant, in no acute distress. Well-nourished. - EYES: EOMI. Anicteric. - HENT: Moist mucous membranes. - LUNGS: Coarse breath sound bilateral base - CARDIOVASCULAR: Regular rate and rhythm. No murmur. No JVD. - ABDOMEN: Soft, non-tender and non-distended. No palpable masses. - EXTREMITIES: No edema. Peripheral pulses 2+. Non-tender. - NEUROLOGIC: No focal neurological deficits. CN II-XII grossly intact. - PSYCHIATRIC: Awake, Alert and oriented x 3. mood and affect: Lethargic. - SKIN: No rashes or lesions. Warm. - LYMPH: No cervical lymphadenopathy. Objective Data Vital Signs Vital Signs: Vital Signs - 24 hr 05/25/24 14:30 05/25/24 14:41 05/25/24 14:57 Temperature 98.5 F Pulse Rate 87 82 Respiratory Rate 20 20 Blood Pressure 158/87 H 144/71 H Pulse Oximetry 96 96 96 Oxygen Delivery Room Air Nasal Cannula Oxygen Flow Rate 3 Fraction of Inspired Oxygen 05/25/24 15:20 05/25/24 15:20 05/25/24 15:33 Temperat
--- NOTE | 2024-05-26 09:53 | PM.CNNEP ---
Assessment and Plan Assessment and plan (1) Acute kidney injury: Code(s): N17.9 - Acute kidney failure, unspecified Status: Acute Assessment and Plan: suspect prerenal factors/volume depletion in conjunction with infection (pneumonia) evaluation to date noted: renal ultrasound pending urine eosinophils negative urine electrolytes non-prerenal moderate proteinuria CPK mildly elevated (but not enough to affect kidneys) trial of gentle IVF hold ESTIVEN-I and diuretics follow repeat labs and UOP (2) Pneumonia: Qualifiers: Laterality: bilateral Lung location: unspecified part of lung Pneumonia type: due to unspecified organism Qualified Code(s): J18.9 - Pneumonia, unspecified organism Code(s): J18.9 - Pneumonia, unspecified organism Status: Acute Assessment and Plan: suggested by admission imaging follow culture data on antibiotics (3) Hypertension: Code(s): I10 - Essential (primary) hypertension Status: Chronic Assessment and Plan: reasonable control at this time follow trend of hemodynamics (4) Chronic obstructive pulmonary disease: Code(s): J44.9 - Chronic obstructive pulmonary disease, unspecified Status: Chronic Assessment and Plan: complicated #2 supplemental oxygen continue nebulizer treatments as needed (5) Persistent atrial fibrillation: Code(s): I48.19 - Other persistent atrial fibrillation Status: Chronic Assessment and Plan: rate control strategy start anticoagulation Cardiology following (6) Type 2 diabetes mellitus: Qualifiers: Diabetes mellitus chcf insulin use: without long chain quiller tender use Diabetes mellitus complication detail: with foot ulcer Code(s): E11.9 - Type 2 diabetes mellitus without complications Status: Chronic Assessment and Plan: follow accu-cheks glycemic control per hospitalists I will continue to follow patient with you while he remains hospitalized and make further recommendations as deemed necessary. Thank you for allowing me to participate in care of this patient. History of Present Illness Reason for Consult Consult date: 05/26/24 Reason for consult: acute renal failure Chief Complaint Chief complaint: ACUTE ON CHRONIC RESP FAILURE,PNA,ELEV TROP,ARF History of Present Illness Narrative: The patient is a 78-year-old male with mass medical history as outlined below who presented to [facility] Emergency room from his nursing facility for further evaluation of palpitations. Unfortunately, the patient is not the best historian and the great majority of the history is from review of the electronic medical record as well as discussion with the physician/nurses involved in his care. The patient reports on the day of admission, he noticed palpitations and a sensation of a racing heart in the morning without any type of exertional activity. Furthermore, he felt a bit more short of breath than usual in association with mild nausea. He denied any dizziness, lightheadedness, chest pain, cough, vomiting, diarrhea, fever, or diaphoresis. He felt that the palpitations for getting worse and informed the nursing staff who promptly called EMS. On EMS arrival, he was noted to be hypoxic at 89% despite his usual 2 L of supplemental oxygen and this was increased to 4 L with some improvement in his oxygen saturations. He was noted to be audible wheezing and received a dose of Solu-Medrol and a nebulizer treatment in route to the ER. EMS also reported a run of non sustained ventricular tachycardia as well. Workup and evaluation in the emergency room demonstrated the patient be hemodynamically stable with improved oxygen saturation on 4 L of supplemental oxygen. His EKG showed atrial fibrillation which was rate controlled without any acute ischemic changes. Routine blood tests were significant for white blood cell cou
[2024-05-26 11:56] LABS: Lactic Acid Reflex 1.6 mmol/L (0.7-2.0)
[2024-05-26 12:07] LABS: Glucose Point of Care 376 mg/dl (65-105)
[2024-05-26] MEDS: AZITHROMYCIN 500 MG/NS 250 ML 500 MG/250 ML BAG 250 MG IVPB (12:18)
[2024-05-26] MEDS: INSULIN ASPART (*BKC) 100 UNITS/ML SUB-Q (12:18)
[2024-05-26] MEDS: IPRATROPIUM 0.5 MG/ALBUTEROL SULFATE 2.5 MG AMPUL.NEB 3 ML INHALATION ×2 (13:23→20:49)
[2024-05-26 16:22] LABS: Glucose Point of Care 82 mg/dl (65-105)
[2024-05-26] MEDS: SODIUM BICARBONATE TAB 650 MG TABLET 1300 MG PO (17:28)
[2024-05-26 21:16] LABS: IFOB Positive Control Positive; Immunochemical Fecal Occult Bl Negative (N)
[2024-05-26 21:42] LABS: Glucose Point of Care 134 mg/dl (65-105)
[2024-05-26] MEDS: BACLOFEN 5 MG TABLET PO (21:42)
[2024-05-26] MEDS: traMADol HCL (*CRX) 50 MG TABLET PO (21:42)
[2024-05-27] VITALS (23 sets, daily range): BP systolic 115–161; BP diastolic 51–69; PULSE 22–87; RESP 18–76; TEMP 35.6–36.9; O2SAT 97–99
[2024-05-27] MEDS: guaiFENesin/CODEINE (*CRX) 200/20 MG 10 ML SYRUP PO (01:36)
[2024-05-27] MEDS: IPRATROPIUM 0.5 MG/ALBUTEROL SULFATE 2.5 MG AMPUL.NEB 3 ML INHALATION ×5 (03:19→20:43)
[2024-05-27 06:29] LABS: Hematocrit 29.5 % (42.0-52.0); Mean Corpuscular HGB Conc 30.5 g/dl (32-36); Mean Corpuscular Volume 98.3 fl (80-100); Mean Platelet Volume 9.2 fl (7.4-10.4); Platelet Count Result 238 k/mm3 (150-375); Red Cell Distribution Width 13.6 % (11.5-14.5); White Blood Count 24.7 K/mm3 (4.5-10.0)
[2024-05-27 06:39] LABS: Anion Gap 13 mmol/L (4-12); Blood Urea Nitrogen 52 mg/dL (9-20); Calcium 8.1 mg/dL (8.4-10.2); Carbon Dioxide 17 mmol/L (22-30); Chloride 114 mmol/L (98-107); Estimated CRCL calculation 19 ml/min; Estimated Glomerular Filt Rate 18; Glucose 117 mg/dL (65-110); Magnesium 1.8 mg/dL (1.6-2.3); Phosphorus 4.4 mg/dL (2.5-4.5); Potassium 4.5 mmol/L (3.4-5.0); Sodium 144 mmol/L (137-145)
[2024-05-27 06:49] LABS: Glucose Point of Care 113 mg/dl (65-105)
[2024-05-27] MEDS: SODIUM CHLORIDE 0.9% IV 1,000 ML 100 ML IV CONT (06:57)
[2024-05-27] MEDS: FLUTICASONE/UMECLIDIN/VILANTER 100-62.5-25 MCG ELLIPTA 1 PUFF INHALATION (07:00)
--- NOTE | 2024-05-27 07:47 | PM.PNCARD ---
Progress Note: A&P Assessment and Plan (1) Pneumonia: Qualifiers: Laterality: bilateral Lung location: unspecified part of lung Pneumonia type: due to unspecified organism Qualified Code(s): J18.9 - Pneumonia, unspecified organism Code(s): J18.9 - Pneumonia, unspecified organism Status: Acute Assessment and Plan: On antibiotics. (2) Elevated troponin: Code(s): R79.89 - Other specified abnormal findings of blood chemistry Status: Acute Assessment and Plan: Moderately elevated to .145 and flattening out. But not unusual rise with pneumonia, acute respiratory failure, acute renal failure, COPD exac. (3) Acute on chronic hypoxic respiratory failure: Code(s): J96.21 - Acute and chronic respiratory failure with hypoxia Status: Acute (4) Acute renal failure: Qualifiers: Acute renal failure type: unspecified Qualified Code(s): N17.9 - Acute kidney failure, unspecified Code(s): N17.9 - Acute kidney failure, unspecified Status: Acute Assessment and Plan: Nephrology following. (5) COPD exacerbation: Code(s): J44.1 - Chronic obstructive pulmonary disease with (acute) exacerbation Status: Chronic (6) Persistent atrial fibrillation: Code(s): I48.19 - Other persistent atrial fibrillation Status: Acute Assessment and Plan: CHADSVasc 4. On Aspirin 325 mg daily and not on anticoagulation, but he is interested. Rate is not fast. Started Eliquis 2.5 mg BID and decreased aspirin 81 mg daily. Monitor for VT as NSVT was reported by EMS. No recurrence on telemetry. 05/26/24 Echo: EF 60-65%, diastolic dysfunction with E/e' 11, mild RAJ, mild visually, mild MAC, mild MR/TR, RVSP 66 mmHg. No further cardiac workup is needed. Will sign off Please call with any questions. Upon discharge have him f/u with me in 2 weeks. (7) HTN (hypertension): Qualifiers: Hypertension type: essential hypertension Qualified Code(s): I10 - Essential (primary) hypertension Code(s): I10 - Essential (primary) hypertension Status: Chronic Assessment and Plan: Stable. Avoid renal toxic medication. Monitor. (8) Smoker: Code(s): F17.200 - Nicotine dependence, unspecified, uncomplicated Status: Acute Assessment and Plan: Counseled regarding smoking cessation. (9) Pulmonary hypertension: Code(s): I27.20 - Pulmonary hypertension, unspecified Status: Acute Assessment and Plan: Unchanged from prior echo. Likely due to COPD. Subjective Date/time seen: 05/27/24 07:47 Interval history: He has sob. No chest pains. Exam Const: General: cooperative, healthy appearing and comfortable Orientation/consciousness: oriented to person, oriented to place and oriented to time Resp: Auscultation: wheezes and diminished lung sounds Cardio: Rate: regular rate Rhythm: abnormal rhythm Heart sounds: no murmurs Other: Left below knee amputation. Neuro: General: oriented to person, oriented to place and oriented to time Extrem: Right lower extremity: no edema Other: Left below knee amputation. Right leg with no edema. Objective Data Vital Signs Vital Signs: Vital Signs - 24 hr 05/26/24 07:53 05/26/24 08:00 05/26/24 08:00 Temperature 98.0 F Pulse Rate 84 78 Respiratory Rate 28 H Blood Pressure 156/79 H Pulse Oximetry 100 98 Oxygen Delivery Nasal Cannula Oxygen Flow Rate 3 05/26/24 10:00 05/26/24 12:00 05/26/24 13:23 Temperature 97.8 F Pulse Rate 85 80 Respiratory Rate 16 Blood Pressure 142/67 H Pulse Oximetry 100 98 Oxygen Delivery Nasal Cannula Oxygen Flow Rate 2 05/26/24 13:23 05/26/24 13:35 05/26/24 12:00 Temperature Pulse Rate 74 76 72 Respiratory Rate 20 20 Blood Pressure Pulse Oximetry Oxygen Delivery Oxygen Flow Rate 05/26/24 12:00 05/26/24 14:00 05/26/24 16:00 Temperature Pul
[2024-05-27] MEDS: CYANOCOBALAMIN 250 MCG TABLET PO (08:04)
[2024-05-27] MEDS: predniSONE 2.5 MG TABLET PO (08:04)
[2024-05-27] MEDS: ASPIRIN 81 MG ENTERIC TABLET PO (08:04)
[2024-05-27] MEDS: SIMVASTATIN 10 MG TABLET PO (08:05)
[2024-05-27] MEDS: CHOLECALCIFEROL 1,000 UNITS TABLET 1000 UNITS PO (08:05)
[2024-05-27] MEDS: GABAPENTIN 300 MG CAPSULE PO ×3 (08:05→17:18)
[2024-05-27] MEDS: amLODIPine BESYLATE 10 MG TABLET PO (08:05)
[2024-05-27] MEDS: FOLIC ACID 1 MG TABLET PO (08:05)
[2024-05-27] MEDS: MULTIVITAMINS THERAPEUTIC TAB (*BKC) 1 TABLET PO (08:06)
[2024-05-27] MEDS: APIXABAN 2.5 MG TABLET PO ×2 (08:06→20:47)
[2024-05-27] MEDS: guaiFENesin 12 HR 600 MG TABCR PO ×2 (08:06→20:47)
[2024-05-27] MEDS: POTASSIUM CHLORIDE 10 MEQ ER TABLET PO (08:06)
[2024-05-27] MEDS: SODIUM BICARBONATE TAB 650 MG TABLET 1300 MG PO ×3 (08:06→17:21)
[2024-05-27] MEDS: LORATADINE 10 MG TABLET PO (08:07)
[2024-05-27] MEDS: EUCERIN CREAM 120 GM JAR 1 APPLIC TOPICAL ×2 (08:07→21:45)
--- NOTE | 2024-05-27 10:26 | PM.IMPN ---
Progress Note: A&P Assessment and Plan (1) Hypertension: Code(s): I10 - Essential (primary) hypertension Status: Acute (2) Palpitations: Code(s): R00.2 - Palpitations Status: Acute Plan This is a 78-year-old male with multiple medical problems including chronic respiratory failure on oxygen, chronic obstructive pulmonary disease, atrial fibrillation not on chronic anticoagulation due to history of fall, type 2 diabetes mellitus, hypertension, and other comorbidities who presented to the emergency department via EMS from [facility] for evaluation of palpitations. The patient is not the greatest historian and provides the following history. He developed palpitations and sensations of racing heart quite suddenly this morning while doing nothing in particular. He felt a little more short of breath than usual at that time with mild nausea. NSVT Patient had palpitation before arrival Patient has history of AFib En route to the hospital EMS reports that he had a brief run of NSVT Currently patient has rate controlled atrial fibrillation EKG showed AFib rate control, no specific ST T-wave changes, Elevated troponins unstable, possibly due to CKD and demand ischemia due to AFib RVR Nonsustained V-tach possible related to multiple factors include acute renal failure, metabolic acidosis, sepsis, respiratory failure Acute renal failure, metabolic acidosis Elevated BUN creatinine upon arrival, creatinine 4.1, no recent creatinine level, creatinine 0.6 on May 28, 2022 Echols catheter was inserted and he was reportedly not retaining urine. Bicarbonate 15, possible due to acute renal failure or sepsis Avoid nephrotoxic medication UA showed 2+ protein Renal ultrasound ordered. Started sodium bicarbonate the 1300 mg t.i.d. p.o. Nephrology has been consulted. Multifocal pneumonia Patient has leukocytosis Chest x-ray shows bilateral pneumonia on ceftriaxone and azithromycin. Pending sputum for culture. Change to cefepime and continue azithromycin, and Flagyl IV 05/27 Speech evaluation: No dysphagia Continue scheduled bronchodilators. Acute respiratory failure, COPD exacerbation History of COPD, is a patient due to pneumonia He continue DuoNeb scheduled q.6 hours Albuterol nebulizer q.4 hours, Continue Trelegy Ellipta 1 puff daily Continue O2 therapy to keep pulse ox 92 Sepsis Patient has a tachycardia tachypnea, and leukocytosis Suspecting sepsis possible due to pneumonia Follow-up lactic acid Received normal saline bolus in the ED, continue normal saline IV 125 mL/hour Follow-up blood culture Anemia Check iron studies, B12, and folate for evaluation of normocytic anemia. Diabetes appears to be diet controlled. Initiate sliding scale insulin Trace ketone in the urine, Accu-Cheks, and hypoglycemic protocol. Check hemoglobin A1c. Subjective Date/time seen: 05/27/24 10:26 Interval history: I saw examined the patient today, patient feeling better, still has general weakness, some cough and some shortness breath at rest Exam Narrative: GENERAL: Pleasant, in no acute distress. Well-nourished. - EYES: EOMI. Anicteric. - HENT: Moist mucous membranes. - LUNGS: Coarse breath sound bilateral base - CARDIOVASCULAR: Regular rate and rhythm. No murmur. No JVD. - ABDOMEN: Soft, non-tender and non-distended. No palpable masses. - EXTREMITIES: No edema. Peripheral pulses 2+. Non-tender. - NEUROLOGIC: No focal neurological deficits. CN II-XII grossly intact. - PSYCHIATRIC: Awake, Alert and oriented x 3. mood and affect: Lethargic. - SKIN: No rashes or lesions. Warm. - LYMPH: No cervical lymphadenopathy. Objective Data Vital Signs Vital Signs: Vital Signs - 24 hr 05/26/24 12:00 05/26/24 13:23 05/26/24 13:23 Temperature 97.8 F Pulse Rate 80 74 Respiratory Rate 16 20 Blood Pressure 142/67 H Pulse Oximetry 100 98 Oxygen Delivery Nasal Cannula Oxygen Flow Rate 2 0
[2024-05-27] MEDS: ACETAMINOPHEN 325 MG TABLET 650 MG PO (10:33)
[2024-05-27] MEDS: CEFEPIME 1 GM/NS 50 ML 1 GM/50 ML BAG IVPB ×2 (11:26→20:47)
[2024-05-27] MEDS: AZITHROMYCIN 500 MG/NS 250 ML 500 MG/250 ML BAG 250 MG IVPB (11:26)
[2024-05-27 11:27] LABS: Glucose Point of Care 144 mg/dl (65-105)
--- NOTE | 2024-05-27 13:18 | P.PNNP_ITS ---
Progress Note: A&P Assessment and Plan (1) Acute kidney injury: Code(s): N17.9 - Acute kidney failure, unspecified Status: Acute Assessment and Plan: * improvement noted * suspect prerenal factors/volume depletion in conjunction with infection (pneumonia) * evaluation to date noted: * renal ultrasound negative for obstruction * urine eosinophils negative * urine electrolytes non-prerenal * moderate proteinuria * CPK mildly elevated (but not enough to affect kidneys) * on trial of gentle IVF * hold ESTIVEN-I and diuretics * follow repeat labs and UOP (2) Pneumonia: Qualifiers: Laterality: bilateral Lung location: unspecified part of lung Pneumonia type: due to unspecified organism Qualified Code(s): J18.9 - Pneumonia, unspecified organism Code(s): J18.9 - Pneumonia, unspecified organism Status: Acute Assessment and Plan: * suggested by admission imaging * follow culture data * on antibiotics (3) Hypertension: Code(s): I10 - Essential (primary) hypertension Status: Chronic Assessment and Plan: * reasonable control at this time * follow trend of hemodynamics (4) Chronic obstructive pulmonary disease: Code(s): J44.9 - Chronic obstructive pulmonary disease, unspecified Status: Chronic Assessment and Plan: * complicated #2 * supplemental oxygen * continue nebulizer treatments as needed (5) Persistent atrial fibrillation: Code(s): I48.19 - Other persistent atrial fibrillation Status: Chronic Assessment and Plan: * rate control strategy * start anticoagulation * Cardiology following (6) Type 2 diabetes mellitus: Qualifiers: Diabetes mellitus senior net developer insulin use: without senior living use Diabetes mellitus complication detail: with foot ulcer Code(s): E11.9 - Type 2 diabetes mellitus without complications Status: Chronic Assessment and Plan: * follow accu-cheks * glycemic control per hospitalists I will continue to follow patient with you while he remains hospitalized and make further recommendations as deemed necessary. Thank you for allowing me to participate in care of this patient. Subjective Date/time seen: 05/27/24 13:18 Interval history: Follow-up for acute kidney injury/acute renal failure. Apears to be feeling better in general but still reports fatigue/weakness and mild shortness of breath; renal function/creatinine seems to be improving with current interventions/therapy to date; no events overnight or earlier this morning. Exam Narrative: General: ill appearing male in NAD Heart: normal S1 and S2; no rub Lungs: coarse breath sounds noted Abdomen: soft, nontender, nondistended, positive bowel sounds Extremities: no cyanosis or clubbing; no edema; s/p left BKA Skin: warm and dry Objective Data Vital Signs Vital Signs: Vital Signs Temp Pulse Resp BP Pulse Ox O2 Del Method O2 Flow Rate 05/27/24 13:10 72 18 05/27/24 12:30 98 Nasal Cannula 2 05/27/24 11:55 97.3 F L 68 22 H 142/59 H 99 05/27/24 08:35 98 Nasal Cannula 2 05/27/24 08:35 71 05/27/24 07:00 83 20 05/27/24 07:00 83 20 98 Nasal Cannula 2 05/27/24 07:46 97.8 F 80 20 137/62 98 05/27/24 06:39
--- NOTE | 2024-05-27 13:18 | PM.PNNEP ---
Progress Note: A&P Assessment and Plan (1) Acute kidney injury: Code(s): N17.9 - Acute kidney failure, unspecified Status: Acute Assessment and Plan: improvement noted suspect prerenal factors/volume depletion in conjunction with infection (pneumonia) evaluation to date noted: renal ultrasound negative for obstruction urine eosinophils negative urine electrolytes non-prerenal moderate proteinuria CPK mildly elevated (but not enough to affect kidneys) on trial of gentle IVF hold ESTIVEN-I and diuretics follow repeat labs and UOP (2) Pneumonia: Qualifiers: Laterality: bilateral Lung location: unspecified part of lung Pneumonia type: due to unspecified organism Qualified Code(s): J18.9 - Pneumonia, unspecified organism Code(s): J18.9 - Pneumonia, unspecified organism Status: Acute Assessment and Plan: suggested by admission imaging follow culture data on antibiotics (3) Hypertension: Code(s): I10 - Essential (primary) hypertension Status: Chronic Assessment and Plan: reasonable control at this time follow trend of hemodynamics (4) Chronic obstructive pulmonary disease: Code(s): J44.9 - Chronic obstructive pulmonary disease, unspecified Status: Chronic Assessment and Plan: complicated #2 supplemental oxygen continue nebulizer treatments as needed (5) Persistent atrial fibrillation: Code(s): I48.19 - Other persistent atrial fibrillation Status: Chronic Assessment and Plan: rate control strategy start anticoagulation Cardiology following (6) Type 2 diabetes mellitus: Qualifiers: Diabetes mellitus residential insulin use: without truck terminal manager use Diabetes mellitus complication detail: with foot ulcer Code(s): E11.9 - Type 2 diabetes mellitus without complications Status: Chronic Assessment and Plan: follow accu-cheks glycemic control per hospitalists I will continue to follow patient with you while he remains hospitalized and make further recommendations as deemed necessary. Thank you for allowing me to participate in care of this patient. Subjective Date/time seen: 05/27/24 13:18 Interval history: Follow-up for acute kidney injury/acute renal failure. Apears to be feeling better in general but still reports fatigue/weakness and mild shortness of breath; renal function/creatinine seems to be improving with current interventions/therapy to date; no events overnight or earlier this morning. Exam Narrative: General: ill appearing male in NAD Heart: normal S1 and S2; no rub Lungs: coarse breath sounds noted Abdomen: soft, nontender, nondistended, positive bowel sounds Extremities: no cyanosis or clubbing; no edema; s/p left BKA Skin: warm and dry Objective Data Vital Signs Vital Signs: Vital Signs Temp Pulse Resp BP Pulse Ox O2 Del Method O2 Flow Rate 05/27/24 13:10 72 18 05/27/24 12:30 98 Nasal Cannula 2 05/27/24 11:55 97.3 F L 68 22 H 142/59 H 99 05/27/24 08:35 98 Nasal Cannula 2 05/27/24 08:35 71 05/27/24 07:00 83 20 05/27/24 07:00 83 20 98 Nasal Cannula 2 05/27/24 07:46 97.8 F 80 20 137/62 98 05/27/24 06:39 79 20 05/27/24 06:30 78 20 05/27/24 05:57 59 L 05/27/24 04:00 98.1 F 72 20 115/51 L 99 05/27/24 04:00 99 Nasal Cannula 2 05/27/24 04:00 86 05/27/24 02:00 65 05/27/24 03:21 75 20 05/27/24 00:00 67 05/27/24 00:00 99 2 05/27/24 00:00 98.5 F 22 L 76 H 136/66 99 05/26/24 20:00 68 05/26/24 20:00 97 Nasal Cannula 2 05/26/24 20:58 76 20 05/26/24 20:52 20 97 Nasal Cannula 2 05/26/24 20:51 74 20 05/26/24 20:00 97.6 F 75 24 H 133/67 100 Intake/Output Intake/Output: Intake & Output 05/24/24 05/25/24 07/3
--- NOTE | 2024-05-27 13:22 | PCSTNOTE ---
Please refer to the Bedside Swallow Evaluation in the EMR. Please note, silent aspiration cannot be ruled out at bedside.
[2024-05-27] MEDS: metroNIDAZOLE 500 MG/ISO 100ML 500 MG/100 ML BAG 100 MG IVPB ×2 (14:40→21:44)
[2024-05-27] MEDS: SODIUM CHLORIDE 0.9% IV 1,000 ML 125 ML IV CONT (15:32)
[2024-05-27 16:11] LABS: Glucose Point of Care 177 mg/dl (65-105)
[2024-05-27 20:06] LABS: Glucose Point of Care 156 mg/dl (65-105)
--- NOTE | 2024-05-27 21:37 | PC.NURSE ---
pt transferred to 302 transported in bed on monitor
[2024-05-27] MEDS: traMADol HCL (*CRX) 50 MG TABLET PO (21:51)
--- NOTE | 2024-05-27 21:56 | PC.NURSE ---
This patient, Ludin Mcguire, was received from IMU on 05/27/24 at 2125. Patient/family oriented to unit policies and routines
[2024-05-27] MEDS: traZODone HCL 50 MG TABLET PO (23:35)
[2024-05-27] MEDS: MORPHINE SULFATE (*CRX) 2 MG/ML INJ IV PUSH (23:59)
[2024-05-27] MEDS: FUROSEMIDE INJ 40 MG/4 ML VIAL IV PUSH (23:59)
[2024-05-27] MEDS: dilTIAZem HCL 30 MG TABLET PO (23:59)
[2024-05-28] VITALS (16 sets, daily range): BP systolic 115–158; BP diastolic 68–78; PULSE 80–107; RESP 19–21; TEMP 36–37.6; O2SAT 96–98
--- NOTE | 2024-05-28 00:07 | ECG_ITS ---
Test Date: 2024-05-28 00:07:13 Measurements Intervals [place] Rate: 96 P: 0 DE: 0 QRS: 25 QRSD: 88 T: -81 QT: 300 QTc: 380 Interpretive Statements ATRIAL FIBRILLATION WITH CONTROLLED RESPONSE SEPTAL MYOCARDIAL INFARCTION , PROBABLY OLD [40+ ms Q WAVE IN V1/V2] ABNORMAL ECG Compared to ECG 05/25/2024 14:36:38 NO SIGNIFICANT CHANGE ALTHOUGH CURRENT ECG HAS SIGNIFICANT MOTION ARTIFACT Electronically Signed On 05-29-2024 10:48:31 CDT by Master Eric M.D.
[2024-05-28] MEDS: IPRATROPIUM 0.5 MG/ALBUTEROL SULFATE 2.5 MG AMPUL.NEB 3 ML INHALATION ×4 (00:16→14:03)
[2024-05-28] MEDS: BENZONATATE 100 MG CAPSULE 200 MG PO (04:54)
[2024-05-28] MEDS: SODIUM CHLORIDE 0.9% IV 1,000 ML 75 ML IV CONT (04:55)
[2024-05-28] MEDS: metroNIDAZOLE 500 MG/ISO 100ML 500 MG/100 ML BAG 100 MG IVPB (04:55)
[2024-05-28 07:36] LABS: Glucose Point of Care 109 mg/dl (65-105)
[2024-05-28] MEDS: GABAPENTIN 300 MG CAPSULE PO ×2 (08:14→12:12)
[2024-05-28] MEDS: amLODIPine BESYLATE 10 MG TABLET PO (08:14)
[2024-05-28] MEDS: SODIUM BICARBONATE TAB 650 MG TABLET 1300 MG PO ×2 (08:14→12:13)
[2024-05-28] MEDS: SIMVASTATIN 10 MG TABLET PO (08:14)
[2024-05-28] MEDS: predniSONE 2.5 MG TABLET PO (08:14)
[2024-05-28] MEDS: guaiFENesin 12 HR 600 MG TABCR PO (08:15)
[2024-05-28] MEDS: CHOLECALCIFEROL 1,000 UNITS TABLET 1000 UNITS PO (08:15)
[2024-05-28] MEDS: POTASSIUM CHLORIDE 10 MEQ ER TABLET PO (08:15)
[2024-05-28] MEDS: ASPIRIN 81 MG ENTERIC TABLET PO (08:15)
[2024-05-28] MEDS: APIXABAN 2.5 MG TABLET PO (08:15)
[2024-05-28] MEDS: CYANOCOBALAMIN 250 MCG TABLET PO (08:15)
[2024-05-28] MEDS: MULTIVITAMINS THERAPEUTIC TAB (*BKC) 1 TABLET PO (08:15)
[2024-05-28] MEDS: FOLIC ACID 1 MG TABLET PO (08:15)
[2024-05-28] MEDS: LORATADINE 10 MG TABLET PO (08:15)
[2024-05-28] MEDS: CEFEPIME 1 GM/NS 50 ML 1 GM/50 ML BAG IVPB (08:16)
[2024-05-28] MEDS: EUCERIN CREAM 120 GM JAR 1 APPLIC TOPICAL (08:16)
[2024-05-28] MEDS: FLUTICASONE/UMECLIDIN/VILANTER 100-62.5-25 MCG ELLIPTA 1 PUFF INHALATION (08:54)
[2024-05-28 10:10] LABS: Alanine Aminotransferase 23 U/L (6-50); Alkaline Phosphatase 103 U/L (38-126); Anion Gap 14 mmol/L (4-12); Aspartate Amino Transferase 35 U/L (17-59); Bilirubin,Total 0.5 mg/dL (0.2-1.3); Blood Urea Nitrogen 41 mg/dL (9-20); Calcium 7.9 mg/dL (8.4-10.2); Carbon Dioxide 18 mmol/L (22-30); Chloride 107 mmol/L (98-107); Estimated CRCL calculation 22 ml/min; Estimated Glomerular Filt Rate 21; Glucose 126 mg/dL (65-110); Potassium 4.2 mmol/L (3.4-5.0); Sodium 139 mmol/L (137-145)
[2024-05-28] MEDS: AZITHROMYCIN 500 MG/NS 250 ML 500 MG/250 ML BAG 250 MG IVPB (11:04)
[2024-05-28 11:16] LABS: Glucose Point of Care 137 mg/dl (65-105)
--- NOTE | 2024-05-28 12:40 | P.PNNP_ITS ---
Progress Note: A&P Assessment and Plan (1) Acute kidney injury: Code(s): N17.9 - Acute kidney failure, unspecified Status: Acute Assessment and Plan: * improvement noted * suspect prerenal factors/volume depletion in conjunction with infection (pneumonia) * evaluation to date noted: * renal ultrasound negative for obstruction * urine eosinophils negative * urine electrolytes non-prerenal * moderate proteinuria * CPK mildly elevated (but not enough to affect kidneys) * on trial of gentle IVF * hold ESTIVEN-I and diuretics * follow repeat labs and UOP (2) Pneumonia: Qualifiers: Laterality: bilateral Lung location: unspecified part of lung Pneumonia type: due to unspecified organism Qualified Code(s): J18.9 - Pneumonia, unspecified organism Code(s): J18.9 - Pneumonia, unspecified organism Status: Acute Assessment and Plan: * suggested by admission imaging * follow culture data * on antibiotics (3) Hypertension: Code(s): I10 - Essential (primary) hypertension Status: Chronic Assessment and Plan: * reasonable control at this time * follow trend of hemodynamics (4) Chronic obstructive pulmonary disease: Code(s): J44.9 - Chronic obstructive pulmonary disease, unspecified Status: Chronic Assessment and Plan: * complicated #2 * supplemental oxygen * continue nebulizer treatments as needed (5) Persistent atrial fibrillation: Code(s): I48.19 - Other persistent atrial fibrillation Status: Chronic Assessment and Plan: * rate control strategy * start anticoagulation * Cardiology following (6) Type 2 diabetes mellitus: Qualifiers: Diabetes mellitus director long term care insulin use: without residential use Diabetes mellitus complication detail: with foot ulcer Code(s): E11.9 - Type 2 diabetes mellitus without complications Status: Chronic Assessment and Plan: * follow accu-cheks * glycemic control per hospitalists Will continue to follow. Subjective Date/time seen: 05/28/24 12:40 Interval history: Follow-up for acute kidney injury/acute renal failure. Continues to make slow and steady improvement with regard to renal function/creatinine as well as breathing/respiratory status; no apparent distress noted; no acute complaints voiced. Exam Narrative: General: ill appearing male in NAD Heart: normal S1 and S2; no rub Lungs: coarse breath sounds Abdomen: soft, nontender, nondistended, positive bowel sounds Extremities: no cyanosis or clubbing; no edema; s/p left BKA Skin: warm and intact Objective Data Vital Signs Vital Signs: Vital Signs Temp Pulse Resp BP Pulse Ox O2 Del Method O2 Flow Rate 05/28/24 13:00 99.6 F 82 20 115/68 97 05/28/24 12:00 82 05/28/24 08:56 94 20 05/28/24 08:48 92 20 05/28/24 08:48 96 Nasal Cannula 2.5 05/28/24 08:00 107 H 05/28/24 07:52 98 Nasal Cannula 2 05/28/24 05:18 96.8 F L 91 20 158/78 H 98 05/28/24 04:00 83 05/28/24 03:22 96 20 05/28/24 03:15 96 19 05/28/24 00:00 98 05/28/24 00:24 96 21 H 05/28/24 00:16 91 21 H 05/27/24 22:04 98 Nasal Cannula
--- NOTE | 2024-05-28 12:40 | PM.PNNEP ---
Progress Note: A&P Assessment and Plan (1) Acute kidney injury: Code(s): N17.9 - Acute kidney failure, unspecified Status: Acute Assessment and Plan: improvement noted suspect prerenal factors/volume depletion in conjunction with infection (pneumonia) evaluation to date noted: renal ultrasound negative for obstruction urine eosinophils negative urine electrolytes non-prerenal moderate proteinuria CPK mildly elevated (but not enough to affect kidneys) on trial of gentle IVF hold ESTIVEN-I and diuretics follow repeat labs and UOP (2) Pneumonia: Qualifiers: Laterality: bilateral Lung location: unspecified part of lung Pneumonia type: due to unspecified organism Qualified Code(s): J18.9 - Pneumonia, unspecified organism Code(s): J18.9 - Pneumonia, unspecified organism Status: Acute Assessment and Plan: suggested by admission imaging follow culture data on antibiotics (3) Hypertension: Code(s): I10 - Essential (primary) hypertension Status: Chronic Assessment and Plan: reasonable control at this time follow trend of hemodynamics (4) Chronic obstructive pulmonary disease: Code(s): J44.9 - Chronic obstructive pulmonary disease, unspecified Status: Chronic Assessment and Plan: complicated #2 supplemental oxygen continue nebulizer treatments as needed (5) Persistent atrial fibrillation: Code(s): I48.19 - Other persistent atrial fibrillation Status: Chronic Assessment and Plan: rate control strategy start anticoagulation Cardiology following (6) Type 2 diabetes mellitus: Qualifiers: Diabetes mellitus custodial insulin use: without moth exterminator use Diabetes mellitus complication detail: with foot ulcer Code(s): E11.9 - Type 2 diabetes mellitus without complications Status: Chronic Assessment and Plan: follow accu-cheks glycemic control per hospitalists Will continue to follow. Subjective Date/time seen: 05/28/24 12:40 Interval history: Follow-up for acute kidney injury/acute renal failure. Continues to make slow and steady improvement with regard to renal function/creatinine as well as breathing/respiratory status; no apparent distress noted; no acute complaints voiced. Exam Narrative: General: ill appearing male in NAD Heart: normal S1 and S2; no rub Lungs: coarse breath sounds Abdomen: soft, nontender, nondistended, positive bowel sounds Extremities: no cyanosis or clubbing; no edema; s/p left BKA Skin: warm and intact Objective Data Vital Signs Vital Signs: Vital Signs Temp Pulse Resp BP Pulse Ox O2 Del Method O2 Flow Rate 05/28/24 13:00 99.6 F 82 20 115/68 97 05/28/24 12:00 82 05/28/24 08:56 94 20 05/28/24 08:48 92 20 05/28/24 08:48 96 Nasal Cannula 2.5 05/28/24 08:00 107 H 05/28/24 07:52 98 Nasal Cannula 2 05/28/24 05:18 96.8 F L 91 20 158/78 H 98 05/28/24 04:00 83 05/28/24 03:22 96 20 05/28/24 03:15 96 19 05/28/24 00:00 98 05/28/24 00:24 96 21 H 05/28/24 00:16 91 21 H 05/27/24 22:04 98 Nasal Cannula 2 05/27/24 21:39 96.1 F L 85 22 H 161/57 H 98 05/27/24 20:56 85 20 05/27/24 20:45 73 20 05/27/24 20:45 63 20 97 Nasal Cannula 2 05/27/24 20:00 79 20 99 Nasal Cannula 2 05/27/24 19:59 79 05/27/24 19:59 97.7 F 76 20 146/69 H 99 Intake/Output Intake/Output: Intake & Output 05/25/24 05/26/24 05/27/24 05/28/24 23:59 23:59 23:59 23:59 Intake Total 1700 4758.3 4535.8 1875.8 Output Total 550 2100 3150 5050 Balance 1150 2658.3 1385.8 -3174.2 Meds/Results Medications: Medications: Active Medications Generic Name Dose Route Start Last Admin Trade Name Freq PRN Reason Stop Dose Admin Acetaminophen 650 mg 05/25/24 17
[2024-05-28 13:37] LABS: Basophils Absolute Auto 0.1 K/mm3 (0.0-0.1); Basophils Percent Auto 0.3 % (0.2-1.2); Eosinophils Absolute Auto 0.3 K/mm3 (0-0.3); Eosinophils Percent Auto 1.4 % (0-4.4); Hematocrit 29.9 % (42.0-52.0); Hemoglobin 9.1 g/dL (14.0-18.0); Immature Granulocyte Absolute 0.29 K/mm3 (0.00-0.031); Immature Granulocyte Percent A 1.5 % (0-0.5); Lymphocytes Absolute Auto 1.36 K/mm3 (0.9-3.2); Lymphocytes Percent Auto 7.2 % (18.3-44.2); Mean Corpuscular HGB Conc 30.4 g/dl (32-36); Mean Corpuscular Hemoglobin 29.8 pg (26-34); Mean Platelet Volume 9.6 fl (7.4-10.4); Monocytes Absolute Auto 1.5 K/mm3 (0.1-0.6); Monocytes Percent Auto 8.1 % (2.6-8.5); Neutrophils Absolute Auto 15.5 K/mm3 (1.3-6.7); Neutrophils Percent Auto 81.5 % (45.5-73.1); Platelet Count Result 245 k/mm3 (150-375); Red Blood Count 3.05 M/mm3 (4.6-6.20); Red Cell Distribution Width 13.7 % (11.5-14.5)
--- NOTE | 2024-05-28 15:50 | PM.DS ---
DS: Admitting Diagnosis Discharge Date 05/28/24 Admitting Diagnosis Elevated troponin Bilateral pneumonia Acute kidney injury Palpitation Normocytic anemia Persistent AFib Type 2 diabetes mellitus Hypertension COPD DS: Summary Hospital Course Reason for hospitalization: Elevated troponin Bilateral pneumonia Acute kidney injury Palpitation Normocytic anemia Persistent AFib Type 2 diabetes mellitus Hypertension COPD Hospital Course: This is a 78-year-old male who presented to the hospital originally on 05/25/2024 with multiple complaints from the [facility]. Patient reported palpitations and sensation of racing heart earlier that morning he prompting him to come to the hospital. EMS was called and patient was found to have an SpO2 of 89% on his usual 2 L nasal cannula and was increased to 4 L nasal cannula and given Solu-Medrol and neb treatment. He did any route patient had a run of nonsustained V-tach. Workup in the hospital included chest x-ray which showed bilateral pneumonia. Renal ultrasound showed normal kidney, no hydronephrosis. Chest x-ray showed diffuse lung disease with worsening in right upper lobe consistent with pulmonary edema versus pneumonia. Initial white blood cell count was 15.8, hemoglobin 9.2, INR 1.2, pH 7.267, PO2 103.6, pCO2 39.5, bicarb 17.6, bicarb 17, creatinine 4.1, EGFR 14. Troponin 0.133> 0.142> 0.145, proBNP 8060. UA was obtained and showed 2+ protein, trace ketone, otherwise negative. Respiratory panel was negative for influenza a and B, RSV, COVID. Patient was started on Rocephin and azithromycin. Cardiology and Nephrology were consulted. Cardiology feels that the troponin bump was likely demand ischemia caused by the pneumonia. Nephrology was following for the acute kidney injury which was likely secondary to his pneumonia and is now trending downward to 2.9. He was started on oral antibiotics. His vital signs are stable, he is afebrile, he is on room air. Patient requesting to go home at this time. Patient is showing improvement in his labs and is stable for discharge at this time. He will need to follow up with his primary care physician in 1 week after getting a CBC and CMP to recheck his labs. Final diagnosis: Community-acquired pneumonia, acute kidney injury, AFib Status at Discharge Cognitive/behavioral status at discharge: Alert and oriented x3 Functional status at discharge: wheelchair bound Overall status at discharge: patient is progressing back to baseline Time Spent with Patient Time attestation: Total time spent providing and/or coordinating discharge services: Time spent: Greater than 30 minutes Exam Narrative: General: In no acute distress, well nourished Head: atraumatic, no encephalopathy Eyes: EOMI, PERRLA, sclera clear ENT: moist mucous membranes, nasal passages clear Neck: supple, no JVD, no adenopathy, trachea midline Cardiac: Normal S1 and S2. Irregular No murmur, gallops or friction rubs, peripheral pulses intact. Respiratory: Lungs clear to auscultation, no adventitious lung sounds, currently on 2.5L NC Gastrointestinal: soft, non-distended, non-tender, normoactive bowel sounds. : voiding without difficulty. Extremities: moves all extremities well, no edema, left BKA Skin: clean, dry, intact. No wounds or lesions. Neuro: Alert and oriented x4, cranial nerves intact, no neuro deficits. Psych: normal mood, normal affect, interactive DS: Data Data Completed and Pending Completed studies during hospitalization: Chest x-ray x2 Renal ultrasound Pending studies at discharge: Sputum and blood cultures pending Labs on day of discharge: Labs from last 24 hours 05/28/24 05/28/24 05/28/24 11:14 09:41 09:39 WBC 19.0 H RBC 3.05 L Hgb 9.1 L Hct 29.9 L MCV 98.0 MCH 29.8 MCHC 30.4 L RDW 13.7 Plt Count 245 MPV 9.6 Immature Gran % (Auto) 1.5 H Neut % (Auto) 81.5 H Lymph % (Auto) 7.2 L [place] % (Auto)
[2024-05-30 13:28] LABS: Pneumococcal Antigen Urine NOT DETECTED
[2024-06-02 03:54] LABS: Legionella pneumophila Ag Ur NOT DETECTED
[2024-06-02 18:13] LABS: Mycoplasma IgM Antibody Titer 297 U/mL
== END 2024-05-28 16:30 | DRG 193 ==
LOC: ANHED 16:56 → ANHIMU 17:21 → ANH3MEDSUR 05-27 21:31
PROVIDERS: Internal Medicine; Internal Medicine Nephrology; Physician Assistant; Admitting Provider Hospitalist; Emergency Provider Physician Assistant; PCP Emergency Medicine; Visit Provider Nurse Practitioner Acute Care
DX: J18.9 Pneumonia, unspecified organism (principal); J96.21 Acute and chronic respiratory failure with hypoxia; I24.89 Other forms of acute ischemic heart disease; N17.9 Acute kidney failure, unspecified; I48.19 Other persistent atrial fibrillation; J44.0 Chronic obstructive pulmonary disease with (acute) lower respiratory infection; I50.32 Chronic diastolic (congestive) heart failure; J44.1 Chronic obstructive pulmonary disease with (acute) exacerbation; Z99.3 Dependence on wheelchair; D64.9 Anemia, unspecified; E11.42 Type 2 diabetes mellitus with diabetic polyneuropathy; E78.2 Mixed hyperlipidemia; I11.0 Hypertensive heart disease with heart failure; K21.9 Gastro-esophageal reflux disease without esophagitis; N40.0 Benign prostatic hyperplasia without lower urinary tract symptoms; Z20.822 Contact with and (suspected) exposure to COVID-19; Z89.512 Acquired absence of left leg below knee; Z98.41 Cataract extraction status, right eye; Z98.42 Cataract extraction status, left eye; Z96.641 Presence of right artificial hip joint; Z89.421 Acquired absence of other right toe(s); Z86.73 Personal history of transient ischemic attack (TIA), and cerebral infarction without residual deficits; Z87.891 Personal history of nicotine dependence; Z99.81 Dependence on supplemental oxygen
CPT/HCPCS: 36415; 36600; 71045; 76775; 80048; 80053; 80307; 81001; 81050; 82274; 82375; 82550; 82570; 82607; 82728; 82746; 82805; 82948; 83036; 83050; 83540; 83550; 83605; 83735; 83880; 84100; 84156; 84300; 84439; 84443; 84484; 84540; 85025; 85027; 85610; 85730; 85999; 86738; 87040; 87070; 87205; 87449; 87637; 87641; 87899; 92610; 93005; 93306; 94640; 96365; 96367; 99285; A9270; G0378; J0456; J0692; J0696; J1815; J1836; J1940; J2270; J3475; J7030

== ENCOUNTER 2024-06-03 12:40 | Emergency (ER) | payer MEDICARE, SELFPAY ==
[2024-06-03] VITALS (7 sets, daily range): BP systolic 125–161; BP diastolic 65–94; PULSE 55–71; RESP 19–22; TEMP 36.4; O2SAT 96–100
--- NOTE | 2024-06-03 13:23 | ECG_ITS ---
Test Date: 2024-06-03 13:30:26 Measurements Intervals [place] Rate: 59 P: 0 MI: 0 QRS: 29 QRSD: 88 T: 56 QT: 390 QTc: 387 Interpretive Statements ATRIAL FIBRILLATION WITH SLOW VENTRICULAR RESPONSE OLD SEPTAL INFARCTION Compared to ECG 05/28/2024 00:07:13 NO SIGNIFICANT CHANGES Electronically Signed On 06-03-2024 17:14:59 CDT by Norma Kilpatrick M.D.
--- NOTE | 2024-06-03 13:26 | ED.GENADULT ---
HPI - General Adult General Chief complaint: Unspecified Stated complaint: twitching since yesterday Time Seen by Provider: 06/03/24 12:45 History of Present Illness HPI narrative: 78-year-old male with a history of AFib, COPD on 2 L home oxygen, hypertension presenting with body twitching. Patient states that he was recently discharged from here and he thinks that they changed some of his medicines. He is unsure what was changed. States that he has had all over body twitching for the last 2-3 days. States it is mostly in his face and his hands. Denies numbness or weakness. No speech or vision changes. Denies any pain or infectious symptoms. Related Data Home Medications Medication Instructions Recorded Confirmed folic acid 1 mg tablet 1 mg PO DAILY 12/02/20 05/25/24 acetaminophen 650 mg 650 mg PO Q4H PRN PAIN 09/30/23 05/25/24 tablet,extended release baclofen 5 mg tablet 5 mg PO Q8H PRN MUSCLE SPASM 09/30/23 05/25/24 benzonatate 100 mg capsule 100 mg PO TID PRN Cough 09/30/23 05/25/24 bisacodyl 10 mg rectal suppository 10 mg RECTAL DAILY PRN SEE 09/30/23 05/25/24 INSTRUCTIONS cetirizine 10 mg tablet 10 mg PO DAILY 09/30/23 05/25/24 cholecalciferol (vitamin D3) 25 25 mcg PO DAILY 09/30/23 05/25/24 mcg (1,000 unit) tablet cyanocobalamin (vitamin B-12) 500 250 mcg PO DAILY 09/30/23 05/25/24 mcg tablet fluticasone fur. 100 mcg-umeclid 1 inh inhalation DAILY 09/30/23 05/25/24 62.5 mcg-vilant 25 mcg inhalat.powder (Trelegy Ellipta) gabapentin 300 mg capsule 300 mg PO TID 09/30/23 05/25/24 hydrocortisone 1 % topical cream 1 applic topical TID PRN FOR 09/30/23 05/25/24 (Cortisone (hydrocortisone)) ITCHING ipratropium 0.5 mg-albuterol 3 mg 3 ml inhalation HS 09/30/23 05/25/24 (2.5 mg base)/3 mL nebulization soln ipratropium bromide 17 2 puff inhalation Q4H PRN sob 09/30/23 05/25/24 mcg/actuation HFA aerosol inhaler (Atrovent HFA) lisinopril 2.5 mg tablet 2.5 mg PO DAILY 09/30/23 05/25/24 magnesium citrate (Citroma oral 296 ml PO DAILY PRN SEE 09/30/23 05/25/24 solution) INSTRUCTIONS magnesium hydroxide 400 mg/5 mL 30 ml PO QHS PRN Constipation 09/30/23 05/25/24 oral suspension potassium chloride 10 mEq 10 meq PO DAILY 09/30/23 05/25/24 tablet,extended release prednisone 2.5 mg tablet 2.5 mg PO DAILY 09/30/23 05/25/24 sertraline 50 mg tablet 100 mg PO QHS 09/30/23 05/25/24 sodium phosphates 19 gram-7 118 ml RECTAL ONCE PRN SEE 09/30/23 05/25/24 gram/118 mL enema (Fleet Enema) INSTRUCTIONS guaifenesin 600 mg tablet, 600 mg PO Q12H 05/25/24 05/25/24 extended release 12 hr ipratropium 0.5 mg-albuterol 3 mg 3 ml inhalation Q4H PRN SOB 05/25/24 05/25/24 (2.5 mg base)/3 mL nebulization soln lanolin alcohols-mineral 1 applic topical Q12H 05/25/24 05/25/24 oil-w.petrolatum-ceresin topical cream (Minerin Creme topical) Allergies Allergy/AdvReac Type Severity Reaction Status Date / Time niacin Allergy Intermediate Rash/itchin Verified 09/30/23 15:05 g hydrocodone [From [place]] AdvReac Confusion Verified 09/30/23 15:05 Review of Systems Review of Systems: All systems reviewed & are unremarkable except as noted in HPI and below PMFSH Past Medical History Medical History Alcohol abuse Anxiety Asthma Benign prostatic hyperplasia Cerebrovascular accident Chronic abscess of lower leg Chronic anemia Chronic obstructive pulmonary disease Chronic respiratory failure with hypoxia, on home O2 therapy Depression Diabetic foot ulcer Diabetic peripheral neuropathy Diastolic congestive heart failure Former smoker Gastroesophageal reflux disease Hearing loss Hypertension Ichthyosis vulgaris Irritable bowel syndrome Mixed hyperlipidemia MRSA (methicillin resistant Staphylococcus aureus) septicemia (09/2020) Osteoarthritis Osteomyelitis History of osteomyelitis of both feet requiring multiple amputations. Pancreatitis (
[2024-06-03] MEDS: SODIUM CHLORIDE 0.9% IV 1,000 ML 999 ML IV CONT (13:39)
[2024-06-03 13:47] LABS: Basophils Absolute Auto 0.1 K/mm3 (0.0-0.1); Basophils Percent Auto 0.3 % (0.2-1.2); Eosinophils Absolute Auto 0.3 K/mm3 (0-0.3); Eosinophils Percent Auto 1.5 % (0-4.4); Hemoglobin 8.7 g/dL (14.0-18.0); Immature Granulocyte Absolute 0.52 K/mm3 (0.00-0.031); Immature Granulocyte Percent A 2.9 % (0-0.5); Lymphocytes Absolute Auto 1.14 K/mm3 (0.9-3.2); Lymphocytes Percent Auto 6.3 % (18.3-44.2); Mean Corpuscular HGB Conc 31.1 g/dl (32-36); Mean Corpuscular Volume 96.6 fl (80-100); Mean Platelet Volume 9.1 fl (7.4-10.4); Monocytes Absolute Auto 0.8 K/mm3 (0.1-0.6); Monocytes Percent Auto 4.6 % (2.6-8.5); Neutrophils Absolute Auto 15.3 K/mm3 (1.3-6.7); Neutrophils Percent Auto 84.4 % (45.5-73.1); Platelet Count Result 234 k/mm3 (150-375); Red Cell Distribution Width 13.2 % (11.5-14.5); White Blood Count 18.1 K/mm3 (4.5-10.0)
[2024-06-03 14:12] LABS: Alanine Aminotransferase 20 U/L (6-50); Albumin Level 3.9 g/dL (3.5-5.1); Alkaline Phosphatase 91 U/L (38-126); Anion Gap 11 mmol/L (4-12); Aspartate Amino Transferase 32 U/L (17-59); Bilirubin,Total 0.6 mg/dL (0.2-1.3); Blood Urea Nitrogen 42 mg/dL (9-20); Calcium 7.7 mg/dL (8.4-10.2); Carbon Dioxide 24 mmol/L (22-30); Chloride 105 mmol/L (98-107); Creatine Kinase 168 U/L (55-170); Estimated CRCL calculation 18 ml/min; Estimated Glomerular Filt Rate 18; Glucose 99 mg/dL (65-110); Magnesium 1.6 mg/dL (1.6-2.3); Sodium 140 mmol/L (137-145)
[2024-06-03 14:27] LABS: Add Urine Microscopic? YES; Appearance Urine Clear (Clear); Bacteria Urine None Seen /hpf; Bilirubin Urine Negative (Negative); Blood Urine Negative (Negative); Color Urine Yellow (Yellow); Glucose Urine UA Negative (Negative); Ketones Urine Negative (Negative); Leukocyte Esterase Ur Negative LEU/UL (Negative); Nitrate Urine Negative (Negative); Non Pathogenic Casts 0-2; Protein Urine 2+ mg/dL (Negative); RBC Urine 0-2 /hpf (0-2); Specific Grav Ur 1.011 (1.001-1.035); Squamous Epithelial Cell Urine None Seen /hpf (Few); Urobilinogen Urine 0.2 mg/dL (<2.0); WBC Urine 0-5 /hpf (0-3); pH Urine 5.5 (5.0-9.0)
--- NOTE | 2024-06-03 14:27 | PC.NURSE ---
PAUL Bueno from [facility], called for update on patient.
--- NOTE | 2024-06-03 15:06 | PC.NURSE ---
Pt daughter, Dalila, called for update. Pt gave permission to give update.
[2024-06-03] MEDS: IPRATROPIUM BR 0.02% INH SOLN 0.5 MG/2.5 ML VIAL INHALATION (17:16)
[2024-06-03] MEDS: ALBUTEROL SULFATE NEB 2.5 MG/3 ML INH 10 MG INHALATION (17:16)
--- NOTE | 2024-06-03 18:13 | PC.NURSE ---
Per pt and daughter request, Dalila was called with update.
--- NOTE | 2024-06-03 18:13 | PC.NURSE ---
[facility] was called twice for report, nurse did not answer.
--- NOTE | 2024-06-03 18:21 | PC.NURSE ---
Spoke with PAUL Han at [facility] for report upon pt d/c and return to [place].
== END 2024-06-03 19:21 | disposition home or self-care (01) ==
PROVIDERS: Emergency Provider Emergency Medicine; PCP Emergency Medicine
DX: R25.3 Fasciculation (principal); I48.19 Other persistent atrial fibrillation; J44.9 Chronic obstructive pulmonary disease, unspecified; I11.0 Hypertensive heart disease with heart failure; I50.30 Unspecified diastolic (congestive) heart failure; I27.20 Pulmonary hypertension, unspecified; J96.11 Chronic respiratory failure with hypoxia; E78.2 Mixed hyperlipidemia; E11.42 Type 2 diabetes mellitus with diabetic polyneuropathy; D64.9 Anemia, unspecified; K21.9 Gastro-esophageal reflux disease without esophagitis; K58.9 Irritable bowel syndrome, unspecified; F41.9 Anxiety disorder, unspecified; Z99.81 Dependence on supplemental oxygen; Z96.641 Presence of right artificial hip joint; Z86.73 Personal history of transient ischemic attack (TIA), and cerebral infarction without residual deficits; Z87.891 Personal history of nicotine dependence; Z86.14 Personal history of Methicillin resistant Staphylococcus aureus infection; Z89.512 Acquired absence of left leg below knee; Z89.431 Acquired absence of right foot; Z98.42 Cataract extraction status, left eye; Z98.41 Cataract extraction status, right eye; Z79.899 Other long term (current) drug therapy; Z79.82 Long term (current) use of aspirin; Z79.01 Long term (current) use of anticoagulants; R94.31 Abnormal electrocardiogram [ECG] [EKG]
CPT/HCPCS: 36415; 80053; 81001; 82550; 83735; 85025; 93005; 94640; 96360; 96361; 99283; J7030

== ENCOUNTER 2024-06-17 18:02 | Emergency (ER) | payer MEDICARE, SELFPAY ==
--- NOTE | ~2024-06-17 | XR_ITS ---
EXAMINATION: XR chest 1V portable DATE: 06/17/2024 20:16 INDICATION: Cough TECHNIQUE: frontal view of the chest was obtained. COMPARISON: Chest radiograph dated 05/27/2024 FINDINGS: Mild elevation of the left hemidiaphragm. Patchy airspace opacities in the left mid to lower lung zon e which could represent atelectasis or pneumonia. No pleural effusion or pneumothorax. Heart size wit hin normal limits for AP technique. IMPRESSION: 1. Persistent opacity in the left mid to lower lung zone which could represent atelectasis with eleva tion of the left hemidiaphragm or pneumonia. Reviewed, dictated and finalized at location A. IMPRESSION: 1. Persistent opacity in the left mid to lower lung zone which could represent atelectasis with elevation of the left hemidiaphragm or pneumonia.
[2024-06-17 18:10] VITALS: BP 140/58; PULSE 73; RESP 22; TEMP 36.6; O2SAT 95
--- NOTE | 2024-06-17 19:52 | ECG_ITS ---
Test Date: 2024-06-17 20:47:41 Measurements Intervals [place] Rate: 54 P: 0 VT: 0 QRS: 26 QRSD: 90 T: 57 QT: 420 QTc: 401 Interpretive Statements ATRIAL FIBRILLATION WITH SLOW VENTRICULAR RESPONSE LOW QRS VOLTAGE IN EXTREMITY LEADS [QRS DEFLECTION < 0.5 mV IN LIMB LEADS] POSSILBE OLD SEPTAL INFARCTION ABNORMAL RHYTHM ECG Compared to ECG 06/03/2024 13:30:26 NO SIGNIFICANT CHANGES Electronically Signed On 06-18-2024 14:41:55 CDT by Norma Kilpatrick M.D.
[2024-06-17 19:53] VITALS: BP 151/98; PULSE 50; RESP 16; TEMP 36.7; O2SAT 100
--- NOTE | 2024-06-17 19:56 | ED.GENADULT ---
HPI - General Adult General Chief complaint: Recheck/Abnormal Lab/Rx Stated complaint: abnormal labs, hgb and kidney failure Time Seen by Provider: 06/17/24 19:39 History of Present Illness HPI narrative: patient is a 78-year-old gentleman who presents emergency department with chief complaint of abnormal labs patient is from a local nursing facility had the patient transported by EMS without calling report to the emergency department the patient states he is not sure why he is here that his told him something is wrong the patient reports that just feels weak and tired but states this is his normal baseline Related Data Home Medications Medication Instructions Recorded Confirmed folic acid 1 mg tablet 1 mg PO DAILY 12/02/20 05/25/24 acetaminophen 650 mg 650 mg PO Q4H PRN PAIN 09/30/23 05/25/24 tablet,extended release baclofen 5 mg tablet 5 mg PO Q8H PRN MUSCLE SPASM 09/30/23 05/25/24 benzonatate 100 mg capsule 100 mg PO TID PRN Cough 09/30/23 05/25/24 bisacodyl 10 mg rectal suppository 10 mg RECTAL DAILY PRN SEE 09/30/23 05/25/24 INSTRUCTIONS cetirizine 10 mg tablet 10 mg PO DAILY 09/30/23 05/25/24 cholecalciferol (vitamin D3) 25 25 mcg PO DAILY 09/30/23 05/25/24 mcg (1,000 unit) tablet cyanocobalamin (vitamin B-12) 500 250 mcg PO DAILY 09/30/23 05/25/24 mcg tablet fluticasone fur. 100 mcg-umeclid 1 inh inhalation DAILY 09/30/23 05/25/24 62.5 mcg-vilant 25 mcg inhalat.powder (Trelegy Ellipta) gabapentin 300 mg capsule 300 mg PO TID 09/30/23 05/25/24 hydrocortisone 1 % topical cream 1 applic topical TID PRN FOR 09/30/23 05/25/24 (Cortisone (hydrocortisone)) ITCHING ipratropium 0.5 mg-albuterol 3 mg 3 ml inhalation HS 09/30/23 05/25/24 (2.5 mg base)/3 mL nebulization soln ipratropium bromide 17 2 puff inhalation Q4H PRN sob 09/30/23 05/25/24 mcg/actuation HFA aerosol inhaler (Atrovent HFA) lisinopril 2.5 mg tablet 2.5 mg PO DAILY 09/30/23 05/25/24 magnesium citrate (Citroma oral 296 ml PO DAILY PRN SEE 09/30/23 05/25/24 solution) INSTRUCTIONS magnesium hydroxide 400 mg/5 mL 30 ml PO QHS PRN Constipation 09/30/23 05/25/24 oral suspension potassium chloride 10 mEq 10 meq PO DAILY 09/30/23 05/25/24 tablet,extended release prednisone 2.5 mg tablet 2.5 mg PO DAILY 09/30/23 05/25/24 sertraline 50 mg tablet 100 mg PO QHS 09/30/23 05/25/24 sodium phosphates 19 gram-7 118 ml RECTAL ONCE PRN SEE 09/30/23 05/25/24 gram/118 mL enema (Fleet Enema) INSTRUCTIONS guaifenesin 600 mg tablet, 600 mg PO Q12H 05/25/24 05/25/24 extended release 12 hr ipratropium 0.5 mg-albuterol 3 mg 3 ml inhalation Q4H PRN SOB 05/25/24 05/25/24 (2.5 mg base)/3 mL nebulization soln lanolin alcohols-mineral 1 applic topical Q12H 05/25/24 05/25/24 oil-w.petrolatum-ceresin topical cream (Minerin Creme topical) Allergies Allergy/AdvReac Type Severity Reaction Status Date / Time niacin Allergy Intermediate Rash/itchin Verified 09/30/23 15:05 g hydrocodone [From [facility]] AdvReac Confusion Verified 09/30/23 15:05 Review of Systems Review of Systems: A 10 system review of systems was completed on the patient and is negative except for what is stated in the HPI. Nursing and ancillary documentation was reviewed. [facility] Past Medical History Medical History Alcohol abuse Anxiety Asthma Benign prostatic hyperplasia Cerebrovascular accident Chronic abscess of lower leg Chronic anemia Chronic obstructive pulmonary disease Chronic respiratory failure with hypoxia, on home O2 therapy Depression Diabetic foot ulcer Diabetic peripheral neuropathy Diastolic congestive heart failure Former smoker Gastroesophageal reflux disease Hearing loss Hypertension Ichthyosis vulgaris Irritable bowel syndrome Mixed hyperlipidemia MRSA (methicillin resistant Staphylococcus aureus) septicemia (09/2020) Osteoarthritis Osteomyelitis History of osteomyelitis o
[2024-06-17 20:47] LABS: Basophils Percent Auto 0.4 % (0.2-1.2); Eosinophils Absolute Auto 0.2 K/mm3 (0-0.3); Eosinophils Percent Auto 1.8 % (0-4.4); Hematocrit 26.8 % (42.0-52.0); Hemoglobin 8.4 g/dL (14.0-18.0); Immature Granulocyte Absolute 0.05 K/mm3 (0.00-0.031); Immature Granulocyte Percent A 0.6 % (0-0.5); Lymphocytes Absolute Auto 1.12 K/mm3 (0.9-3.2); Lymphocytes Percent Auto 12.4 % (18.3-44.2); Mean Corpuscular HGB Conc 31.3 g/dl (32-36); Mean Corpuscular Hemoglobin 30.2 pg (26-34); Mean Corpuscular Volume 96.4 fl (80-100); Mean Platelet Volume 9.7 fl (7.4-10.4); Monocytes Absolute Auto 0.6 K/mm3 (0.1-0.6); Monocytes Percent Auto 6.1 % (2.6-8.5); Neutrophils Absolute Auto 7.1 K/mm3 (1.3-6.7); Neutrophils Percent Auto 78.7 % (45.5-73.1); Platelet Count Result 213 k/mm3 (150-375); Red Blood Count 2.78 M/mm3 (4.6-6.20); Red Cell Distribution Width 13.8 % (11.5-14.5)
[2024-06-17 20:55] LABS: Add Urine Microscopic? YES; Appearance Urine Clear (Clear); Bacteria Urine None Seen /hpf; Bilirubin Urine Negative (Negative); Blood Urine Negative (Negative); Color Urine Yellow (Yellow); Glucose Urine UA Negative (Negative); Ketones Urine Negative (Negative); Leukocyte Esterase Ur Negative LEU/UL (Negative); Nitrate Urine Negative (Negative); Non Pathogenic Casts 0-2; Protein Urine 3+ mg/dL (Negative); RBC Urine 0-2 /hpf (0-2); Specific Grav Ur 1.013 (1.001-1.035); Squamous Epithelial Cell Urine None Seen /hpf (Few); Urobilinogen Urine 0.2 mg/dL (<2.0); WBC Urine 0-5 /hpf (0-3)
[2024-06-17 20:56] LABS: Magnesium 1.9 mg/dL (1.6-2.3)
[2024-06-17 21:10] LABS: Alanine Aminotransferase 13 U/L (6-50); Albumin Level 3.9 g/dL (3.5-5.1); Alkaline Phosphatase 94 U/L (38-126); Anion Gap 10 mmol/L (4-12); Aspartate Amino Transferase 28 U/L (17-59); Bilirubin,Total 0.3 mg/dL (0.2-1.3); Blood Urea Nitrogen 49 mg/dL (9-20); Calcium 7.9 mg/dL (8.4-10.2); Carbon Dioxide 20 mmol/L (22-30); Chloride 108 mmol/L (98-107); Estimated CRCL calculation 18 ml/min; Estimated Glomerular Filt Rate 18; Glucose 93 mg/dL (65-110); Potassium 5.3 mmol/L (3.4-5.0); Sodium 138 mmol/L (137-145)
[2024-06-17 21:59] VITALS: BP 173/70; PULSE 64; RESP 18; O2SAT 98
[2024-06-17 22:39] LABS: NT Pro B Type Natriuretic Pept 3980 pg/mL (19.9-100)
[2024-06-17] MEDS: FUROSEMIDE 20 MG TABLET PO (23:27)
== END 2024-06-18 01:24 ==
PROVIDERS: Emergency Provider Emergency Medicine; PCP Emergency Medicine
DX: I13.0 Hypertensive heart and chronic kidney disease with heart failure and stage 1 through stage 4 chronic kidney disease, or unspecified chronic kidney disease (principal); E11.22 Type 2 diabetes mellitus with diabetic chronic kidney disease; N18.9 Chronic kidney disease, unspecified; I50.30 Unspecified diastolic (congestive) heart failure; J44.9 Chronic obstructive pulmonary disease, unspecified; Z87.891 Personal history of nicotine dependence
CPT/HCPCS: 36415; 71045; 80053; 81001; 83735; 83880; 85025; 93005; 99283; A9270

== ENCOUNTER 2024-07-27 16:15 | Inpatient (IN) | payer MEDICARE, SELFPAY ==
[2024-07-27] VITALS (12 sets, daily range): BP systolic 137–172; BP diastolic 61–92; PULSE 59–80; RESP 18–34; TEMP 36.2–36.4; O2SAT 93–100
--- NOTE | ~2024-07-27 | XR_ITS ---
EXAMINATION: XR chest 2V Exam Date/Time: 07/27/2024 18:10 CDT HISTORY: sob Comparison: 06/17/2024. RESULT: Lines, tubes, and devices: None. Lungs and pleura: Emphysematous/senescent change. Streaky left basilar atelectasis/scar. Cardiomediastinal silhouette: Stable. Other: No acute osseous or upper abdominal finding. IMPRESSION: No acute cardiopulmonary process. Reviewed, dictated and finalized at location K.
--- NOTE | 2024-07-27 16:29 | ECG_ITS ---
Test Date: 2024-07-27 16:42:23 Measurements Intervals [place] Rate: 56 P: 0 DC: 0 QRS: 55 QRSD: 83 T: 55 QT: 342 QTc: 331 Interpretive Statements ATRIAL FIBRILLATION WITH SLOW VENTRICULAR RESPONSE ANTEROSEPTAL INFARCT, AGE INDETERMINATE ABNORMAL ECG Compared to ECG 06/17/2024 20:47:41 No significant changes Electronically Signed On 07-27-2024 16:44:04 CDT by Yahir Lopez D.O.
--- NOTE | 2024-07-27 16:30 | ED.RECABL ---
HPI - Recheck/Abnormal Lab/Rx General Chief Complaint: Recheck/Abnormal Lab/Rx <Antonietta Chu PA-C - Last Filed: 07/28/24 10:10> Stated Complaint: hyperkalemia <Antonietta Chu PA-C - Last Filed: 07/28/24 10:10> Time Seen by Provider: 07/27/24 16:30 <Antonietta Chu PA-C - Last Filed: 07/28/24 10:10> Focused HPI: This is a 78 year old male that presents to the ER for elevated potassium on outpatient labs. Sent from his facility. Patient has no complaints currently. GENERAL: Elderly, well-nourished, and in no acute distress. HEAD: Normocephalic, atraumatic. CHEST: No respiratory distress. Diffuse expiratory wheezing HEART: Regular rate and rhythm.? NEURO: ?Alert and oriented x3. Patient screened in triage and initial orders placed.? ?Additional care and disposition to be based upon?diagnostic testing and treatment. <LEXI Meadows Last Filed: 07/28/24 10:10> Source: patient and old records reviewed <Margo De La Torre PA-C - Last Filed: 07/27/24 21:16> Mode of arrival: EMS <Margo De La Torre PA-C - Last Filed: 07/27/24 21:16> Limitations: no limitations <Margo De La Torre PA-C - Last Filed: 07/27/24 21:16> History of Present Illness HPI narrative: PMH of DM, CHF, pulm HTN, AFIB, alcohol abuse, COPD, L BKA, CKD, chronic hypoxic resp failure on 2L NC. Saw Dr. Calero 4 days ago for CKD. Patient is a poor historian. He does not know why he is in the ED. Denies any complaints. States his breathing is at baseline. <Margo De La Torre PA-C - Last Filed: 07/27/24 21:16> Related Data Home Medications: Home Medications Medication Instructions Recorded Confirmed folic acid 1 mg tablet 1 mg PO DAILY 12/02/20 07/27/24 acetaminophen 650 mg 650 mg PO Q4H PRN PAIN 09/30/23 07/27/24 tablet,extended release baclofen 5 mg tablet 5 mg PO Q8H PRN MUSCLE SPASM 09/30/23 07/27/24 benzonatate 100 mg capsule 100 mg PO TID PRN Cough 09/30/23 07/27/24 bisacodyl 10 mg rectal suppository 10 mg RECTAL DAILY PRN SEE 09/30/23 07/27/24 INSTRUCTIONS cetirizine 10 mg tablet 10 mg PO DAILY 09/30/23 07/27/24 cholecalciferol (vitamin D3) 25 25 mcg PO DAILY 09/30/23 07/27/24 mcg (1,000 unit) tablet ipratropium 0.5 mg-albuterol 3 mg 3 ml inhalation HS 09/30/23 07/27/24 (2.5 mg base)/3 mL nebulization soln ipratropium bromide 17 2 puff inhalation Q4H PRN sob 09/30/23 07/27/24 mcg/actuation HFA aerosol inhaler (Atrovent HFA) magnesium citrate (Citroma oral 296 ml PO DAILY PRN SEE 09/30/23 07/27/24 solution) INSTRUCTIONS magnesium hydroxide 400 mg/5 mL 30 ml PO QHS PRN Constipation 09/30/23 07/27/24 oral suspension sertraline 50 mg tablet 100 mg PO QHS 09/30/23 07/27/24 sodium phosphates 19 gram-7 118 ml RECTAL ONCE PRN SEE 09/30/23 07/27/24 gram/118 mL enema (Fleet Enema) INSTRUCTIONS guaifenesin 600 mg tablet, 600 mg PO Q12H 05/25/24 07/27/24 extended release 12 hr ipratropium 0.5 mg-albuterol 3 mg 3 ml inhalation Q4H PRN SOB 05/25/24 07/27/24 (2.5 mg base)/3 mL nebulization soln ascorbic acid (vitamin C) 500 mg 500 mg PO QAM 07/23/24 07/27/24 capsule cyanocobalamin (vitamin B-12) 500 250 mcg PO DAILY 07/23/24 07/27/24 mcg tablet ferrous sulfate 325 mg (65 mg 325 mg PO DAILY 07/23/24 07/27/24 iron) tablet gabapentin 300 mg capsule 300 mg PO BID 07/23/24 07/27/24 hydrocortisone 1 % topical cream 1 applic topical .Q 8HR PRN FOR 07/23/24 07/27/24 (Cortisone (hydrocortisone)) ITCHING spironolactone 100 mg tablet 100 mg PO DAILY 07/23/24 07/27/24 spironolactone 25 mg tablet 25 mg PO DAILY 07/23/24 07/27/24 apixaban 2.5 mg tablet (Eliquis) 2.5 mg PO BID 07/27/24 07/27/24 aspirin 81 mg tablet,delayed 325 mg PO QAM 07/27/24 07/27/24 release fluticasone fur. 100 mcg-umeclid 1 inh inhalation DAILY 07/27/24 07/27/24 62.5 mcg-vilant 25 mcg inhalat.powder (Trelegy Ellipta) ipratropium bromide 17 2 puff inhalation TID 07/27/24 07/27/24 mcg/act
[2024-07-27 16:43] LABS: Basophils Absolute Auto 0.1 K/mm3 (0.0-0.1); Basophils Percent Auto 0.5 % (0.2-1.2); Eosinophils Absolute Auto 0.2 K/mm3 (0-0.3); Hematocrit 28.6 % (42.0-52.0); Hemoglobin 8.8 g/dL (14.0-18.0); Immature Granulocyte Absolute 0.05 K/mm3 (0.00-0.031); Immature Granulocyte Percent A 0.5 % (0-0.5); Lymphocytes Absolute Auto 0.85 K/mm3 (0.9-3.2); Lymphocytes Percent Auto 8.2 % (18.3-44.2); Mean Corpuscular HGB Conc 30.8 g/dl (32-36); Mean Corpuscular Hemoglobin 29.4 pg (26-34); Mean Corpuscular Volume 95.7 fl (80-100); Mean Platelet Volume 8.9 fl (7.4-10.4); Monocytes Absolute Auto 0.6 K/mm3 (0.1-0.6); Monocytes Percent Auto 5.7 % (2.6-8.5); Neutrophils Absolute Auto 8.6 K/mm3 (1.3-6.7); Neutrophils Percent Auto 83.1 % (45.5-73.1); Platelet Count Result 228 k/mm3 (150-375); Red Blood Count 2.99 M/mm3 (4.6-6.20); Red Cell Distribution Width 13.7 % (11.5-14.5); White Blood Count 10.3 K/mm3 (4.5-10.0)
[2024-07-27 17:00] LABS: Alanine Aminotransferase 12 U/L (6-50); Albumin Level 4.1 g/dL (3.5-5.1); Alkaline Phosphatase 109 U/L (38-126); Anion Gap 12 mmol/L (4-12); Aspartate Amino Transferase 27 U/L (17-59); Bilirubin,Total 0.3 mg/dL (0.2-1.3); Blood Urea Nitrogen 42 mg/dL (9-20); Calcium 8.4 mg/dL (8.4-10.2); Carbon Dioxide 17 mmol/L (22-30); Chloride 108 mmol/L (98-107); Estimated CRCL calculation 16 ml/min; Estimated Glomerular Filt Rate 16; Glucose 84 mg/dL (65-110); Potassium 7.1 mmol/L (3.4-5.0); Sodium 137 mmol/L (137-145)
[2024-07-27] MEDS: IPRATROPIUM 0.5 MG/ALBUTEROL SULFATE 2.5 MG AMPUL.NEB 3 ML INHALATION (17:35)
[2024-07-27] MEDS: DEXTROSE 50% 25 GM/50 ML SYRINGE IV PUSH ×3 (17:36→20:19)
[2024-07-27] MEDS: SODIUM ZIRCONIUM CYCLOSILICATE 10 GM POWD.PACK PO ×2 (17:37→23:40)
[2024-07-27] MEDS: SODIUM CHLORIDE 0.9% IV 500 ML 999 ML IV CONT (17:37)
[2024-07-27] MEDS: INSULIN HUMAN REGULAR (*BKC) 100 UNITS/ML 10 UNITS IV PUSH (17:38)
[2024-07-27 18:01] LABS: Add Urine Microscopic? YES; Appearance Urine Clear (Clear); Bacteria Urine None Seen /hpf; Bilirubin Urine Negative (Negative); Blood Urine Negative (Negative); Color Urine Yellow (Yellow); Glucose Urine UA Negative (Negative); Ketones Urine Negative (Negative); Leukocyte Esterase Ur Negative LEU/UL (Negative); Nitrate Urine Negative (Negative); Non Pathogenic Casts 0-2; Protein Urine 2+ mg/dL (Negative); RBC Urine 0-2 /hpf (0-2); Squamous Epithelial Cell Urine None Seen /hpf (Few); WBC Urine 0-5 /hpf (0-3); pH Urine 5.5 (5.0-9.0)
[2024-07-27 18:22] LABS: NT Pro B Type Natriuretic Pept 5290 pg/mL (19.9-100)
[2024-07-27] MEDS: CALCIUM GLUC 1,000 MG/NS 50 ML 1,000 MG/50 ML BAG 100 MG IVPB ×2 (18:25→23:40)
[2024-07-27 18:44] LABS: Influenza A QL RT-PCR Negative (Negative); Influenza B QL RT-PCR Negative (Negative); RSV RNA, RT-PCR Negative (Negative); SARS-CoV-2 RNA PCR Positive (Negative)
[2024-07-27] MEDS: GLUCOSE ORAL GEL 15 GM OF GLUCSE IN 37.5 GM TUBE PO (20:09)
[2024-07-27 20:16] LABS: Anion Gap 9 mmol/L (4-12); Blood Urea Nitrogen 44 mg/dL (9-20); Calcium 8.6 mg/dL (8.4-10.2); Carbon Dioxide 18 mmol/L (22-30); Chloride 110 mmol/L (98-107); Estimated CRCL calculation 18 ml/min; Estimated Glomerular Filt Rate 17; Glucose 41 mg/dL (65-110); Potassium 6.3 mmol/L (3.4-5.0); Sodium 137 mmol/L (137-145)
[2024-07-27] MEDS: ALBUTEROL SULFATE NEB 2.5 MG/3 ML INH 10 MG INHALATION (20:48)
[2024-07-27 21:00] LABS: Glucose Point of Care 56 mg/dl (65-105)
[2024-07-27 21:00] LABS: Glucose Point of Care 166 mg/dl (65-105)
[2024-07-27 21:00] LABS: Glucose Point of Care 58 mg/dl (65-105)
--- NOTE | 2024-07-27 21:58 | ADMGEN ---
This patient, Ludin Mcguire, was admitted to IMU Room 202-. Patient/family oriented to hospital policies and general routines including ID bracelet, bed and alarms, visiting hours, pain management, procedures, bathroom and other care routines, personal items, smoking policy, room service/diet, and visiting hours. Information on how to activate the Rapid Response Team has been discussed. Patient/Family are encouraged to report perceived risks to care and to ask questions if they do not understand what they are told or what they should do.
--- NOTE | 2024-07-27 22:27 | PC.NURSE ---
Patient was non-compliant with answering admission questions; History was recalled. RN placed call to [facility] requesting that home medications and medical history be faxed for completion of admission.
[2024-07-27] MEDS: SODIUM BICARBONATE 8.4% 50 MEQ/50 ML SYRINGE IV PUSH (23:40)
[2024-07-27 23:53] LABS: Anion Gap 9 mmol/L (4-12); Blood Urea Nitrogen 42 mg/dL (9-20); Calcium 8.2 mg/dL (8.4-10.2); Carbon Dioxide 20 mmol/L (22-30); Chloride 106 mmol/L (98-107); Estimated CRCL calculation 17 ml/min; Estimated Glomerular Filt Rate 16; Glucose 201 mg/dL (65-110); Potassium 6.9 mmol/L (3.4-5.0); Sodium 135 mmol/L (137-145)
[2024-07-28] VITALS (22 sets, daily range): BP systolic 121–144; BP diastolic 38–68; PULSE 56–94; RESP 16–23; TEMP 36.2–37.1; O2SAT 95–100
--- NOTE | 2024-07-28 00:02 | PC.NURSE ---
Patient records received from [facility]; Admission and med rec completed. Dr. Kowalski notified.
[2024-07-28] MEDS: dexAMETHasone SOD PHOS INJ 10 MG/ML 1 ML VIAL 6 MG IV PUSH (00:05)
--- NOTE | 2024-07-28 00:37 | ECG_ITS ---
Test Date: 2024-07-28 01:34:00 Measurements Intervals [place] Rate: 68 P: 0 SD: 0 QRS: 7 QRSD: 85 T: 44 QT: 368 QTc: 392 Interpretive Statements ATRIAL FIBRILLATION LOW QRS VOLTAGE IN EXTREMITY LEADS [QRS DEFLECTION < 0.5 mV IN LIMB LEADS] ANTEROSEPTAL MYOCARDIAL INFARCTION [40+ ms Q WAVE IN V1-V4], OF INDETERMINATE AGE Compared to ECG 07/27/2024 16:42:23 Low QRS voltage now present Myocardial infarct finding still present Electronically Signed On 07-28-2024 10:09:18 CDT by Joel Pulido M.D.
[2024-07-28] MEDS: ALBUTEROL SULFATE NEB 2.5 MG/3 ML INH 20 MG INHALATION (00:45)
--- NOTE | 2024-07-28 00:59 | PM.IMHP ---
H&P: HPI History of Present Illness Date/Time: 07/28/24 00:59 Chief Complaint: High potassium Narrative: 78-year-old male with a past medical history chronic kidney disease stage 4, COPD, chronic hypoxic respiratory failure, atrial fibrillation, diastolic heart failure and history of alcoholism who presented to the ER from long-term facility after routine labs demonstrated hyperkalemia. Repeat labs at our facility demonstrated potassium was 7.1. Patient stated that he did not know why the labs have been drawn but he had recently been evaluated outpatient at the [facility]. I suspect that these were labs ordered to follow-up in that regard but this cannot be confirmed. The patient denies any other concerning symptoms. He was noted to be tachypneic in the ER and was wheezing significantly. He denied any changes in his respiratory status from baseline. He does admit to having an occasional cough but does not think it is increased. He has not had any fevers and was afebrile on presentation to the ER. His EKG in the ER did demonstrate peaked T-waves. He received treatment with IV insulin, 12.5 mg dextrose, an amp of calcium gluconate and a 2.5 or 5 mg albuterol as well as a dose of Lokelma. The patient unfortunately did develop hypoglycemia after this treatment which was corrected with an additional 50 of glucose. Repeat labs an hour later demonstrated potassium down to 6.3 and normal glucoses. I was contacted for admission. I requested additional doses of calcium gluconate and Lokelma as well as an amp of sodium bicarb and an hour long nebulizer. The patient received the other long nebulizer in the ER but there was a delay receiving the remainder of the regimen. Unfortunately patient is 3rd BMP was obtained prior to him receiving additional corrective medications. In the IMU he did receive said medications and repeat labs have been ordered. On review of patient's chart it appears that the patient's was on Lasix and low-dose potassium at the time of his last discharge from the hospital. His lisinopril was also discontinued at that time (end of April). The electronic external pharmacy records indicate that the patient had 100 mg of spironolactone ordered on the 23 of July. Then a secondary script was ordered for 25 mg on the . I can only assume that there may have been a pharmacy clarification of the 100 mg dose and subsequently a 25 mg dose was then ordered. Unfortunately according to the group home records it appears the patient has actually been receiving a total of 125 mg of spironolactone daily since the . However my interpretation of the records may be faulty. It does appear that the patient's Lasix and potassium were discontinued somewhat recently. The patient is unaware of any recent medication changes. Patient is not helpful in providing any additional history and is a relatively poor historian despite being oriented to person place time and current political events. History and physical obtained from mostly review of group home records, ER staff report and nursing report. The patient does not actively participate in providing history despite being alert oriented. Review of Systems Review of Systems: Limited due to lack of patient participation in history and physical process. [facility] Past Medical History Medical History (Updated 07/28/24 @ 02:02 by Tracy Kowalski, DO) Alcohol abuse Anxiety Asthma Benign prostatic hyperplasia Cerebrovascular accident Chronic anemia Chronic obstructive pulmonary disease Severe obstructive disease without bronchodilator relief noted on PFTs September 2019 Chronic respiratory failure with hypoxia, on home O2 therapy CKD (chronic kidney disease) stage 4, GFR 15-29 ml/min Depression Diabetic foot ulcer Diabetic peripheral neuropathy Diabetic retinopathy Dilated eye exam December 2023 demonstrating mild bilateral disease Diastolic congestive heart failure Echocar
[2024-07-28] MEDS: DEXTROSE 50% 25 GM/50 ML SYRINGE IV PUSH (02:00)
[2024-07-28] MEDS: INSULIN HUMAN REGULAR (*BKC) 100 UNITS/ML 10 UNITS IV PUSH (02:00)
[2024-07-28] MEDS: guaiFENesin 12 HR 600 MG TABCR PO ×2 (02:01→11:49)
[2024-07-28] MEDS: traZODone HCL 50 MG TABLET PO ×2 (02:01→21:16)
--- NOTE | 2024-07-28 03:02 | PC.NURSE ---
Patient's daughter states patient had Covid [address] Kowalski informed. Kayden TRISTAN'd and tejinder dc'd
[2024-07-28 04:10] LABS: Glucose Point of Care 78 mg/dl (65-105)
[2024-07-28 05:12] LABS: Hematocrit 25.7 % (42.0-52.0); Hemoglobin 7.8 g/dL (14.0-18.0); Mean Corpuscular HGB Conc 30.4 g/dl (32-36); Mean Corpuscular Volume 95.5 fl (80-100); Mean Platelet Volume 9.3 fl (7.4-10.4); Platelet Count Result 209 k/mm3 (150-375); Red Blood Count 2.69 M/mm3 (4.6-6.20); Red Cell Distribution Width 13.6 % (11.5-14.5); White Blood Count 12.6 K/mm3 (4.5-10.0)
[2024-07-28 05:23] LABS: Potassium 5.6 mmol/L (3.4-5.0)
[2024-07-28 05:25] LABS: Albumin Level 3.5 g/dL (3.5-5.1); Anion Gap 9 mmol/L (4-12); Blood Urea Nitrogen 42 mg/dL (9-20); Calcium 8.5 mg/dL (8.4-10.2); Carbon Dioxide 19 mmol/L (22-30); Chloride 108 mmol/L (98-107); Estimated CRCL calculation 16 ml/min; Estimated Glomerular Filt Rate 16; Glucose 142 mg/dL (65-110); Phosphorus 3.5 mg/dL (2.5-4.5); Sodium 136 mmol/L (137-145)
[2024-07-28] MEDS: FLUTICASONE/UMECLIDIN/VILANTER 100-62.5-25 MCG ELLIPTA 1 PUFF INHALATION (08:22)
[2024-07-28] MEDS: predniSONE 2.5 MG TABLET PO (08:26)
[2024-07-28] MEDS: APIXABAN 2.5 MG TABLET PO ×2 (08:26→21:16)
[2024-07-28] MEDS: ASPIRIN 325 MG ENTERIC TABLET PO (08:26)
[2024-07-28] MEDS: ASCORBIC ACID 500 MG TABLET PO (08:26)
[2024-07-28] MEDS: amLODIPine BESYLATE 10 MG TABLET PO (08:26)
[2024-07-28] MEDS: CHOLECALCIFEROL 1,000 UNITS TABLET 1000 UNITS PO (08:26)
[2024-07-28] MEDS: FERROUS SULFATE 325 MG TABLET DR BY MOUTH (08:27)
[2024-07-28] MEDS: CYANOCOBALAMIN 250 MCG TABLET PO (08:27)
[2024-07-28] MEDS: GABAPENTIN 300 MG CAPSULE PO ×2 (08:27→17:17)
[2024-07-28] MEDS: MULTIVITAMINS THERAPEUTIC TAB (*BKC) 1 TABLET PO (08:27)
[2024-07-28] MEDS: FOLIC ACID 1 MG TABLET PO (08:27)
[2024-07-28] MEDS: LORATADINE 10 MG TABLET PO (08:27)
[2024-07-28] MEDS: BACLOFEN 5 MG TABLET PO (08:28)
[2024-07-28] MEDS: EUCERIN CREAM 120 GM JAR 1 APPLIC TOPICAL ×2 (08:28→17:17)
[2024-07-28] MEDS: SODIUM BICARBONATE TAB 650 MG TABLET 1300 MG PO ×3 (08:28→17:17)
--- NOTE | 2024-07-28 08:56 | P.CONNP_ITS ---
Assessment and Plan Assessment and plan (1) Hyperkalemia: Code(s): E87.5 - Hyperkalemia Status: Acute Assessment and Plan: * suspect due to medication effect * on high dose spironolactone per record review * given his underlying CKD, spironolactone may have potentiated his elevated K+ given the longer half life of this medication in the context of kidney disease * s/p aggressive medical management in ER and overnight * improvement in K+ earlier today but now elevated again * suspect regina K+ again due to rebound effect from spironolactone still in his system/body * on scheduled lokelma * PRN IV medical management and nebulizer treatments * continue sodium bicarbonate which should help as well * low K+ diet (2) Chronic kidney disease, stage IV (severe): Code(s): N18.4 - Chronic kidney disease, stage 4 (severe) Status: Chronic Assessment and Plan: * as noted since previous hospitalization ~ 2 months ago * appears relatively stable * will proceed with serological evaluation (since this was planned as an outpatient) * follow trend of electrolytes and volume status (3) COVID-19: Code(s): U07.1 - COVID-19 Status: Acute Assessment and Plan: * as noted by testing in ER * given his underlying respiratory issued (has COPD), started on remdesivir * already on outpatient chronic steroid therapy * follow respiratory status (4) Chronic obstructive pulmonary disease: Code(s): J44.9 - Chronic obstructive pulmonary disease, unspecified Status: Chronic Assessment and Plan: * complicates #3 * on chronic supplemental oxygen * continue nebulizer treatments as needed (5) HTN (hypertension): Qualifiers: Hypertension type: essential hypertension Qualified Code(s): I10 - Essential (primary) hypertension Code(s): I10 - Essential (primary) hypertension Status: Chronic Assessment and Plan: * reasonable control * follow trend of hemodynamics (6) Afib: Qualifiers: Atrial fibrillation type: persistent (not longstanding) Qualified Code(s): I48.19 - Other persistent atrial fibrillation Code(s): I48.91 - Unspecified atrial fibrillation Status: Chronic Assessment and Plan: * rate control strategy * on anticoagulation (7) Type 2 diabetes mellitus: Qualifiers: Diabetes mellitus complication detail: with foot ulcer Diabetes mellitus hoop maker 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 Thank you for allowing me to participate in care of this patient. History of Present Illness Reason for Consult Consult date: 07/28/24 Reason for consult: chronic renal failure and hyperkalemia Chief Complaint Chief complaint: Hyperkalemia, CKD, Covid History of Present Illness Narrative: The patient is a 78-year-old male with extensive past medical history as outlined below who presented to [facility] Emergency Room from his nursing facility due to abnormal labs, specifically, hyperkalemia. A great deal of the information I have obtained is from review of the electronic medical record as well as my personal experience with the
--- NOTE | 2024-07-28 08:56 | PM.CNNEP ---
Assessment and Plan Assessment and plan (1) Hyperkalemia: Code(s): E87.5 - Hyperkalemia Status: Acute Assessment and Plan: suspect due to medication effect on high dose spironolactone per record review given his underlying CKD, spironolactone may have potentiated his elevated K+ given the longer half life of this medication in the context of kidney disease s/p aggressive medical management in ER and overnight improvement in K+ earlier today but now elevated again suspect regina K+ again due to rebound effect from spironolactone still in his system/body on scheduled lokelma PRN IV medical management and nebulizer treatments continue sodium bicarbonate which should help as well low K+ diet (2) Chronic kidney disease, stage IV (severe): Code(s): N18.4 - Chronic kidney disease, stage 4 (severe) Status: Chronic Assessment and Plan: as noted since previous hospitalization ~ 2 months ago appears relatively stable will proceed with serological evaluation (since this was planned as an outpatient) follow trend of electrolytes and volume status (3) COVID-19: Code(s): U07.1 - COVID-19 Status: Acute Assessment and Plan: as noted by testing in ER given his underlying respiratory issued (has COPD), started on remdesivir already on outpatient chronic steroid therapy follow respiratory status (4) Chronic obstructive pulmonary disease: Code(s): J44.9 - Chronic obstructive pulmonary disease, unspecified Status: Chronic Assessment and Plan: complicates #3 on chronic supplemental oxygen continue nebulizer treatments as needed (5) HTN (hypertension): Qualifiers: Hypertension type: essential hypertension Qualified Code(s): I10 - Essential (primary) hypertension Code(s): I10 - Essential (primary) hypertension Status: Chronic Assessment and Plan: reasonable control follow trend of hemodynamics (6) Afib: Qualifiers: Atrial fibrillation type: persistent (not longstanding) Qualified Code(s): I48.19 - Other persistent atrial fibrillation Code(s): I48.91 - Unspecified atrial fibrillation Status: Chronic Assessment and Plan: rate control strategy on anticoagulation (7) Type 2 diabetes mellitus: Qualifiers: Diabetes mellitus complication detail: with foot ulcer Diabetes mellitus fci insulin use: without fci use Code(s): E11.9 - Type 2 diabetes mellitus without complications Status: Chronic Assessment and Plan: follow accu-cheks no apparent home medications despite history glycemic control per hospitalist I will continue to follow patient with you while he remains hospitalized and make further recommendations as deemed necessary. Thank you for allowing me to participate in care of this patient. History of Present Illness Reason for Consult Consult date: 07/28/24 Reason for consult: chronic renal failure and hyperkalemia Chief Complaint Chief complaint: Hyperkalemia, CKD, Covid History of Present Illness Narrative: The patient is a 78-year-old male with extensive past medical history as outlined below who presented to [facility] Emergency Room from his nursing facility due to abnormal labs, specifically, hyperkalemia. A great deal of the information I have obtained is from review of the electronic medical record as well as my personal experience with the patient as the patient is not very clear on why he presented to [facility] Emergency Room. The patient apparently had outpatient labs done by his nursing facility which demonstrated an elevated potassium level although I am unclear on the specifics value. The patient himself does not know why he had these labs drawn although he did recently see me in the office for further assessment of his known chronic kidney disease although the labs I had orde
[2024-07-28] MEDS: SODIUM ZIRCONIUM CYCLOSILICATE 10 GM POWD.PACK PO ×2 (10:44→15:06)
[2024-07-28 11:07] LABS: Anion Gap 9 mmol/L (4-12); Blood Urea Nitrogen 47 mg/dL (9-20); Calcium 8.2 mg/dL (8.4-10.2); Carbon Dioxide 18 mmol/L (22-30); Chloride 107 mmol/L (98-107); Estimated CRCL calculation 16 ml/min; Estimated Glomerular Filt Rate 17; Glucose 217 mg/dL (65-110); Potassium 6.5 mmol/L (3.4-5.0); Sodium 134 mmol/L (137-145)
--- NOTE | 2024-07-28 15:59 | PM.IMPN ---
Progress Note: A&P Assessment and Plan (1) Hyperkalemia: Code(s): E87.5 - Hyperkalemia Status: Acute Assessment and Plan: K 6.5 s/p Keyasalate and insulin and dextrose with IV calcium repeat pendign Dr Calero from Nephrology on board, appreciate input (2) COVID-19: Code(s): U07.1 - COVID-19 Status: Acute Assessment and Plan: continue remdesivir and home prednisone (3) Hypoglycemia: Code(s): E16.2 - Hypoglycemia, unspecified Status: Acute Assessment and Plan: Hypoglycemia is due to medication effect. Will repeat Accu-Cheks following insulin administration and monitor. Hypoglycemia protocol has been ordered. (4) HTN (hypertension): Qualifiers: Hypertension type: essential hypertension Qualified Code(s): I10 - Essential (primary) hypertension Code(s): I10 - Essential (primary) hypertension Status: Chronic Assessment and Plan: Blood pressures are modestly elevated will continue home amlodipine. (5) Afib: Qualifiers: Atrial fibrillation type: persistent (not longstanding) Qualified Code(s): I48.19 - Other persistent atrial fibrillation Code(s): I48.91 - Unspecified atrial fibrillation Status: Chronic Assessment and Plan: Continue Eliquis Hold rate control meds until hyperkalemia has resolved monitor Plan DVT prophyalxis on Eliquis Subjective Date/time seen: 07/28/24 15:59 Interval history: Patient comfortable at bedside K still elevated s/p keyasalate adn awaiting repeat Nephrology on board Review of Systems Review of Systems: Limited due to lack of patient participation in history and physical process. Exam Narrative: General: alert and comfortable Eyes: EOMI, PERRLA ENNT External ears normal, Neck is supple, no masses, Respiratory systems: Clear to auscultation Cardiovascular S1, S2, normal rhythm, no murmur, rub, or gallop; no thrill or palpable murmurs on palpation. Gastrointestinal: soft, non-tender, and non-distended abdomen with no masses; BS present Skin: no rash, lesions, ulcerations, subcutaneous nodules or induration Musculoskeletal: left jzyok-tgv-iwih amputation, Neurologic: Alert and oriented x3, non focal Mental Status Exam: normal affect Objective Data Vital Signs Vital Signs: Vital Signs - 24 hr 07/27/24 16:20 07/27/24 17:18 07/27/24 17:20 Temperature 97.5 F L Pulse Rate 68 76 Respiratory Rate 22 H 26 H Blood Pressure 150/69 H 152/62 H Pulse Oximetry 100 99 99 Oxygen Delivery Nasal Cannula Oxygen Flow Rate 2 2 Fraction of Inspired Oxygen 07/27/24 17:35 07/27/24 17:42 07/27/24 20:11 Temperature 97.1 F L Pulse Rate 72 74 65 Respiratory Rate 24 H 20 25 H Blood Pressure 172/73 H Pulse Oximetry 99 Oxygen Delivery Oxygen Flow Rate Fraction of Inspired Oxygen 07/27/24 17:25 07/27/24 17:32 07/27/24 17:48 Temperature Pulse Rate 80 67 59 L Respiratory Rate 18 34 H 20 Blood Pressure 152/62 H 171/71 H 139/61 Pulse Oximetry 99 97 Oxygen Delivery Oxygen Flow Rate Fraction of Inspired Oxygen 07/27/24 18:02 07/27/24 23:23 07/27/24 22:30 Temperature 97.4 F L Pulse Rate 64 65 64 Respiratory Rate 23 H 23 H Blood Pressure 137/64 162/92 H Pulse Oximetry 93 95 Oxygen Delivery Oxygen Flow Rate Fraction of Inspired Oxygen 07/28/24 00:00 07/28/24 00:00 07/28/24 00:45 Temperature Pulse Rate 59 L 59 L 72 Respiratory Rate 23 H 20 Blood Pressure Pulse Oximetry 95 Oxygen Delivery Nasal Cannula Oxygen Flow Rate 2 Fraction of Inspired Oxygen 07/28/24 02:00 07/28/24 04:00 07/28/24 04:22 Temperature 97.6 F Pulse Rate 79 79 84 Respiratory Rate 20 23 H Blood Pressure 121/68 Pulse Oximetry 95 99 Oxygen Delivery Nasal Cannula Oxygen Flow Rate 2 Fraction of Inspired Oxygen 07/28/24 04:00 07/28/24 05:56 07/28/24 07:54 Tem
[2024-07-28 17:51] LABS: Anion Gap 10 mmol/L (4-12); Blood Urea Nitrogen 47 mg/dL (9-20); Calcium 8.1 mg/dL (8.4-10.2); Carbon Dioxide 19 mmol/L (22-30); Chloride 107 mmol/L (98-107); Estimated CRCL calculation 16 ml/min; Estimated Glomerular Filt Rate 17; Glucose 127 mg/dL (65-110); Potassium 5.7 mmol/L (3.4-5.0); Sodium 136 mmol/L (137-145)
[2024-07-28] MEDS: IPRATROPIUM 0.5 MG/ALBUTEROL SULFATE 2.5 MG AMPUL.NEB 3 ML INHALATION (20:02)
[2024-07-28] MEDS: SERTRALINE HCL 50 MG TABLET 100 MG PO (21:16)
[2024-07-28] MEDS: SIMVASTATIN 10 MG TABLET PO (21:16)
[2024-07-28] MEDS: ONDANSETRON INJ 4 MG/2 ML VIAL IV PUSH (22:30)
[2024-07-29] VITALS (20 sets, daily range): BP systolic 131–149; BP diastolic 52–70; PULSE 52–82; RESP 18–20; TEMP 36.4–37.6; O2SAT 93–100
[2024-07-29] MEDS: SODIUM ZIRCONIUM CYCLOSILICATE 10 GM POWD.PACK PO ×3 (00:14→16:59)
[2024-07-29 05:06] LABS: Basophils Percent Auto 0.3 % (0.2-1.2); Eosinophils Absolute Auto 0.1 K/mm3 (0-0.3); Eosinophils Percent Auto 0.6 % (0-4.4); Hemoglobin 7.3 g/dL (14.0-18.0); Immature Granulocyte Absolute 0.05 K/mm3 (0.00-0.031); Immature Granulocyte Percent A 0.4 % (0-0.5); Lymphocytes Absolute Auto 1.16 K/mm3 (0.9-3.2); Lymphocytes Percent Auto 9.4 % (18.3-44.2); Mean Corpuscular HGB Conc 30.4 g/dl (32-36); Mean Corpuscular Hemoglobin 28.9 pg (26-34); Mean Corpuscular Volume 94.9 fl (80-100); Mean Platelet Volume 9.2 fl (7.4-10.4); Monocytes Absolute Auto 0.8 K/mm3 (0.1-0.6); Monocytes Percent Auto 6.3 % (2.6-8.5); Neutrophils Absolute Auto 10.2 K/mm3 (1.3-6.7); Platelet Count Result 201 k/mm3 (150-375); Red Blood Count 2.53 M/mm3 (4.6-6.20); Red Cell Distribution Width 13.6 % (11.5-14.5); White Blood Count 12.3 K/mm3 (4.5-10.0)
[2024-07-29 05:19] LABS: Alanine Aminotransferase 11 U/L (6-50); Albumin Level 3.3 g/dL (3.5-5.1); Alkaline Phosphatase 86 U/L (38-126); Anion Gap 7 mmol/L (4-12); Aspartate Amino Transferase 24 U/L (17-59); Bilirubin,Total 0.2 mg/dL (0.2-1.3); Blood Urea Nitrogen 44 mg/dL (9-20); Calcium 7.9 mg/dL (8.4-10.2); Carbon Dioxide 21 mmol/L (22-30); Chloride 110 mmol/L (98-107); Estimated CRCL calculation 16 ml/min; Estimated Glomerular Filt Rate 16; Glucose 92 mg/dL (65-110); Potassium 5.5 mmol/L (3.4-5.0); Sodium 138 mmol/L (137-145)
[2024-07-29] MEDS: FLUTICASONE/UMECLIDIN/VILANTER 100-62.5-25 MCG ELLIPTA 1 PUFF INHALATION (08:54)
[2024-07-29] MEDS: MULTIVITAMINS THERAPEUTIC TAB (*BKC) 1 TABLET PO (09:29)
[2024-07-29] MEDS: amLODIPine BESYLATE 10 MG TABLET PO (09:29)
[2024-07-29] MEDS: CHOLECALCIFEROL 1,000 UNITS TABLET 1000 UNITS PO (09:29)
[2024-07-29] MEDS: SODIUM BICARBONATE TAB 650 MG TABLET 1300 MG PO ×3 (09:29→17:00)
[2024-07-29] MEDS: ASCORBIC ACID 500 MG TABLET PO (09:29)
[2024-07-29] MEDS: BACLOFEN 5 MG TABLET PO (09:29)
[2024-07-29] MEDS: APIXABAN 2.5 MG TABLET PO ×2 (09:29→20:23)
[2024-07-29] MEDS: ASPIRIN 325 MG ENTERIC TABLET PO (09:29)
[2024-07-29] MEDS: CYANOCOBALAMIN 250 MCG TABLET PO (09:29)
[2024-07-29] MEDS: GABAPENTIN 300 MG CAPSULE PO ×2 (09:29→16:59)
[2024-07-29] MEDS: FERROUS SULFATE 325 MG TABLET DR BY MOUTH (09:29)
[2024-07-29] MEDS: LORATADINE 10 MG TABLET PO (09:29)
[2024-07-29] MEDS: FOLIC ACID 1 MG TABLET PO (09:29)
[2024-07-29] MEDS: EUCERIN CREAM 120 GM JAR 1 APPLIC TOPICAL ×2 (09:30→17:00)
[2024-07-29] MEDS: predniSONE 2.5 MG TABLET PO (09:30)
[2024-07-29 10:18] LABS: Anion Gap 9 mmol/L (4-12); Blood Urea Nitrogen 44 mg/dL (9-20); Calcium 7.8 mg/dL (8.4-10.2); Carbon Dioxide 19 mmol/L (22-30); Chloride 107 mmol/L (98-107); Estimated CRCL calculation 17 ml/min; Estimated Glomerular Filt Rate 17; Glucose 143 mg/dL (65-110); Sodium 135 mmol/L (137-145)
--- NOTE | 2024-07-29 12:25 | PM.CNCAR ---
Assessment and Plan Assessment and plan (1) Afib: Qualifiers: Atrial fibrillation type: persistent (not longstanding) Qualified Code(s): I48.19 - Other persistent atrial fibrillation Code(s): I48.91 - Unspecified atrial fibrillation Status: Chronic Plan 78-year-old man with left AKA, persistent atrial fibrillation, and chronic kidney disease stage 4 presented from outpatient facility where he was found to have hyperkalemia and bradycardia Persistent Atrial Fibrillation with Slow Ventricular Rate - hold beta blockers - suspect this is due to hyperkalemia - no indications for PPM at this time given that he is asymptomatic and the longest pause is 2.8s - keep on telemetry while hospitalized for further electrolyte correction - no further inpatient cardiac workup necessary at this time pt can follow up outpatient with his second baker for his cardiac needs call cardiology with any further questions. thank you History of Present Illness History of Present Illness Consult date/time: 07/29/24 12:25 Requesting physician: Mickey Monzon MD Reason For Visit: Hyperkalemia, CKD, Covid Narrative: 78-year-old man with left AKA, persistent atrial fibrillation, and chronic kidney disease stage 4 presented from outpatient facility where he was found to have hyperkalemia. He denies any loss of consciousness or feeling dizzy. He also denies shortness of breath, orthopnea, and chest pain. He is able to ambulate somewhat with his left leg prosthesis. He has not noticed any significant shortness of breath or chest pain during ambulation. He also denied any syncope with exertion. Review of Systems Review of Systems: All systems reviewed & are unremarkable except as noted in HPI and below PMFSH Past Medical History Medical History (Updated 07/28/24 @ 11:56 by Polo Calero MD) Alcohol abuse Anxiety Asthma Benign prostatic hyperplasia Cerebrovascular accident Chronic anemia Chronic obstructive pulmonary disease Severe obstructive disease without bronchodilator relief noted on PFTs September 2019 Chronic respiratory failure with hypoxia, on home O2 therapy CKD (chronic kidney disease) stage 4, GFR 15-29 ml/min Depression Diabetic foot ulcer Diabetic peripheral neuropathy Diabetic retinopathy Dilated eye exam December 2023 demonstrating mild bilateral disease Diastolic congestive heart failure Echocardiogram 2020 EF 65-70, mildly increased left ventricular wall thickness, severe right atrial enlargement, mild left atrial enlargement, mild pulmonary hypertension with RVSP of 35, indeterminate diastolic function due to AFib Former smoker Gastroesophageal reflux disease Hearing loss Hypertension Ichthyosis vulgaris Irritable bowel syndrome Mixed hyperlipidemia MRSA (methicillin resistant Staphylococcus aureus) septicemia (09/2020) Osteoarthritis Osteomyelitis History of osteomyelitis of both feet requiring multiple amputations. Pancreatitis (03/2021) Persistent atrial fibrillation Pulmonary hypertension Echocardiogram on 06/08/2021 showed normal left ventricular systolic function with an EF estimated 65 to 70%, mildly increased LV wall thickness, severely enlarged right atrial chamber, mildly enlarged left atrial chamber, mild mitral valve and trace tricuspid valve regurgitation, and mild pulmonary hypertension with an estimated pulmonary arterial systolic pressure of 35 mmHg. Sacrum and coccyx fracture Type 2 diabetes mellitus Hemoglobin A1c was 6.6% on 06/09/2021. Surgical History Surgical History History of bilateral cataract extraction History of incision and drainage Right hip abscess. 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
--- NOTE | 2024-07-29 12:36 | P.PNNP_ITS ---
Progress Note: A&P Assessment and Plan (1) Hyperkalemia: Code(s): E87.5 - Hyperkalemia Status: Acute Assessment and Plan: * remains an issue * suspect due to medication effect * on high dose spironolactone per record review * given his underlying CKD, spironolactone may have potentiated his elevated K+ given the longer half life of this medication in the context of kidney disease * s/p aggressive medical management in ER and overnight * suspect ongoing regina K+ levels due to rebound effect from spironolactone still in his system/body * on scheduled lokelma * PRN IV medical management and nebulizer treatments * continue sodium bicarbonate which should help as well * if persists, will check testing to r/o hemolysis, adrenal/hormonal issues, and transcellular shift * low K+ diet (2) Chronic kidney disease, stage IV (severe): Code(s): N18.4 - Chronic kidney disease, stage 4 (severe) Status: Chronic Assessment and Plan: * as noted since previous hospitalization ~ 2 months ago * appears relatively stable * serological evaluation (since this was planned as an outpatient) ordered and pending * follow trend of electrolytes and volume status (3) COVID-19: Code(s): U07.1 - COVID-19 Status: Acute Assessment and Plan: * as noted by testing in ER * given his underlying respiratory issued (has COPD), started on remdesivir * already on outpatient chronic steroid therapy * follow respiratory status (4) Chronic obstructive pulmonary disease: Code(s): J44.9 - Chronic obstructive pulmonary disease, unspecified Status: Chronic Assessment and Plan: * complicates #3 * on chronic supplemental oxygen * continue nebulizer treatments as needed (5) HTN (hypertension): Qualifiers: Hypertension type: essential hypertension Qualified Code(s): I10 - Essential (primary) hypertension Code(s): I10 - Essential (primary) hypertension Status: Chronic Assessment and Plan: * reasonable control * follow trend of hemodynamics (6) Afib: Qualifiers: Atrial fibrillation type: persistent (not longstanding) Qualified Code(s): I48.19 - Other persistent atrial fibrillation Code(s): I48.91 - Unspecified atrial fibrillation Status: Chronic Assessment and Plan: * rate control strategy * on anticoagulation (7) Type 2 diabetes mellitus: Qualifiers: Diabetes mellitus manager long term care insulin use: without snf use Diabetes mellitus complication detail: with foot ulcer Code(s): E11.9 - Type 2 diabetes mellitus without complications Status: Chronic Assessment and Plan: * follow accu-cheks * no apparent home medications despite history * glycemic control per hospitalist Will continue to follow Subjective Date/time seen: 07/29/24 12:36 Interval history: Follow-up for hyperkalemia and chronic kidney disease. Renal function remains relatively stable but continues to ongoing issues with hyperkalemia as noted by trend of labs since admission despite being on sc heduled lokelma therapy; no apparent distress voiced at the time of my visit; no other issues/events overnight or earlier this AM; breathing/respiratory status seems stable. Exam Narrative: General: chronically ill appearing male in NAD Heart: normal S1 and S2; no rub Lungs: coarse breath sounds Abdomen: soft, nontender, nondistended, positive bowel sounds Ext
--- NOTE | 2024-07-29 12:36 | PM.PNNEP ---
Progress Note: A&P Assessment and Plan (1) Hyperkalemia: Code(s): E87.5 - Hyperkalemia Status: Acute Assessment and Plan: remains an issue suspect due to medication effect on high dose spironolactone per record review given his underlying CKD, spironolactone may have potentiated his elevated K+ given the longer half life of this medication in the context of kidney disease s/p aggressive medical management in ER and overnight suspect ongoing regina K+ levels due to rebound effect from spironolactone still in his system/body on scheduled lokelma PRN IV medical management and nebulizer treatments continue sodium bicarbonate which should help as well if persists, will check testing to r/o hemolysis, adrenal/hormonal issues, and transcellular shift low K+ diet (2) Chronic kidney disease, stage IV (severe): Code(s): N18.4 - Chronic kidney disease, stage 4 (severe) Status: Chronic Assessment and Plan: as noted since previous hospitalization ~ 2 months ago appears relatively stable serological evaluation (since this was planned as an outpatient) ordered and pending follow trend of electrolytes and volume status (3) COVID-19: Code(s): U07.1 - COVID-19 Status: Acute Assessment and Plan: as noted by testing in ER given his underlying respiratory issued (has COPD), started on remdesivir already on outpatient chronic steroid therapy follow respiratory status (4) Chronic obstructive pulmonary disease: Code(s): J44.9 - Chronic obstructive pulmonary disease, unspecified Status: Chronic Assessment and Plan: complicates #3 on chronic supplemental oxygen continue nebulizer treatments as needed (5) HTN (hypertension): Qualifiers: Hypertension type: essential hypertension Qualified Code(s): I10 - Essential (primary) hypertension Code(s): I10 - Essential (primary) hypertension Status: Chronic Assessment and Plan: reasonable control follow trend of hemodynamics (6) Afib: Qualifiers: Atrial fibrillation type: persistent (not longstanding) Qualified Code(s): I48.19 - Other persistent atrial fibrillation Code(s): I48.91 - Unspecified atrial fibrillation Status: Chronic Assessment and Plan: rate control strategy on anticoagulation (7) Type 2 diabetes mellitus: Qualifiers: Diabetes mellitus long filler cigar roller machine insulin use: without long filler cigar roller machine use Diabetes mellitus complication detail: with foot ulcer Code(s): E11.9 - Type 2 diabetes mellitus without complications Status: Chronic Assessment and Plan: follow accu-cheks no apparent home medications despite history glycemic control per hospitalist Will continue to follow Subjective Date/time seen: 07/29/24 12:36 Interval history: Follow-up for hyperkalemia and chronic kidney disease. Renal function remains relatively stable but continues to ongoing issues with hyperkalemia as noted by trend of labs since admission despite being on scheduled lokelma therapy; no apparent distress voiced at the time of my visit; no other issues/events overnight or earlier this AM; breathing/respiratory status seems stable. Exam Narrative: General: chronically ill appearing male in NAD Heart: normal S1 and S2; no rub Lungs: coarse breath sounds Abdomen: soft, nontender, nondistended, positive bowel sounds Extremities: no cyanosis or clubbing; no edema; s/p left BKA Skin: warm and dry Objective Data Vital Signs Vital Signs: Vital Signs Temp Pulse Resp BP Pulse Ox O2 Del Method O2 Flow Rate 07/29/24 12:00 70 100 Nasal Cannula 2 07/29/24 11:57 99.7 F H 82 20 149/64 H 100 07/29/24 10:00 56 L 07/29/24 08:00 96 Nasal Cannula 2 07/29/24 08:00 55 L 07/29/24 08:56 98 Nasal Cannula 2 07/29/24 08:09 97.5 F L 72 20 141/67 H 100
--- NOTE | 2024-07-29 13:06 | PM.IMPN ---
Progress Note: A&P Assessment and Plan (1) Hyperkalemia: Code(s): E87.5 - Hyperkalemia Status: Acute Assessment and Plan: K 6.0 On Kayexalate monitor Spironolactone on hold Dr Calero from Nephrology on board, appreciate input (2) COVID-19: Code(s): U07.1 - COVID-19 Status: Acute Assessment and Plan: No Remdesivir it was noted that patient tested positive in June continue monitoring (3) Hypoglycemia: Code(s): E16.2 - Hypoglycemia, unspecified Status: Acute Assessment and Plan: Hypoglycemia is due to medication effect. Will repeat Accu-Cheks following insulin administration and monitor. Hypoglycemia protocol has been ordered. (4) HTN (hypertension): Qualifiers: Hypertension type: essential hypertension Qualified Code(s): I10 - Essential (primary) hypertension Code(s): I10 - Essential (primary) hypertension Status: Chronic Assessment and Plan: Blood pressures are modestly elevated will continue home amlodipine. (5) Afib: Qualifiers: Atrial fibrillation type: persistent (not longstanding) Qualified Code(s): I48.19 - Other persistent atrial fibrillation Code(s): I48.91 - Unspecified atrial fibrillation Status: Chronic Assessment and Plan: Continue Eliquis Hold rate control meds until hyperkalemia has resolved monitor Plan Anemia hb 7.3, Iron profile, FOBT and erythropoietin monitor DVT prophylaxis on Eliquis Subjective Date/time seen: 07/29/24 13:06 Interval history: patient comfortable at bedside K 6.0, on Keyasalate and Nephrology on board Review of Systems Review of Systems: Limited due to lack of patient participation in history and physical process. Exam Narrative: General: alert and comfortable Eyes: EOMI, PERRLA ENNT External ears normal, Neck is supple, no masses, Respiratory systems: Clear to auscultation Cardiovascular S1, S2, normal rhythm, no murmur, rub, or gallop; no thrill or palpable murmurs on palpation. Gastrointestinal: soft, non-tender, and non-distended abdomen with no masses; BS present Skin: no rash, lesions, ulcerations, subcutaneous nodules or induration Musculoskeletal: left kyhhi-ihb-[id number] amputation, Neurologic: Alert and oriented x3, non focal Mental Status Exam: normal affect Const: Other: Chronically ill-appearing, appears older than stated age, debilitated, well-nourished HENMT: Other: Mucous membranes are tacky, no oral pharyngeal erythema, edentulous in upper and lower jaw Eyes: Other: Pupils are equal and reactive evidence of left lens replacement, positive conjunctival pallor, no scleral icterus Neck: Other: No JVD, no lymphadenopathy Resp: Other: Diffuse wheezing bilateral upper and lower lung zones, no increased work of breathing Cardio: Other: Irregular rhythm, regular rate, 2+ bilateral radial pulses GI: Other: Slightly distended, soft, nontender, positive bowel sounds Skin: Other: Darkly pigmented skin patches in a pattern consistent with ichthyosis, no open wounds, otherwise generalized pallor underlying Neuro: Other: Patient is alert orient x4, speech is clear, hard hearing, no obvious facial asymmetry but difficult to determine given patient has no dentures in place and is less than cooperative with exam Extrem: Other: Amputation of the right foot at the midfoot with calluses at the distal portion at site of amputation, no open wound, left [id number]-[id number] amputation, moves all extremities equally Psych: Other: Flat affect, in different and minimally cooperative, Objective Data Vital Signs Vital Signs: Vital Signs - 24 hr 07/28/24 14:00 07/28/24 16:00 07/28/24 16:00 Temperature 98.7 F Pulse Rate 74 64 68 Respiratory Rate 20 Blood Pressure 139/63 Pulse Oximetry 100 Oxygen Delivery
[2024-07-29] MEDS: guaiFENesin 12 HR 600 MG TABCR PO (13:39)
[2024-07-29 15:10] LABS: Iron 64 ug/dL (49-181)
[2024-07-29 15:19] LABS: Percent Iron Saturation 25 % (20-50)
[2024-07-29 19:18] LABS: Anion Gap 9 mmol/L (4-12); Blood Urea Nitrogen 47 mg/dL (9-20); Calcium 7.5 mg/dL (8.4-10.2); Carbon Dioxide 22 mmol/L (22-30); Chloride 105 mmol/L (98-107); Estimated CRCL calculation 17 ml/min; Estimated Glomerular Filt Rate 17; Glucose 137 mg/dL (65-110); Potassium 6.2 mmol/L (3.4-5.0); Sodium 136 mmol/L (137-145)
[2024-07-29] MEDS: traZODone HCL 50 MG TABLET PO (20:23)
[2024-07-29] MEDS: INSULIN HUMAN REGULAR (*BKC) 100 UNITS/ML 10 UNITS IV PUSH (20:23)
[2024-07-29] MEDS: SIMVASTATIN 10 MG TABLET PO (20:23)
[2024-07-29] MEDS: DEXTROSE 50% 25 GM/50 ML SYRINGE IV PUSH (20:23)
[2024-07-29] MEDS: SERTRALINE HCL 50 MG TABLET 100 MG PO (20:23)
[2024-07-29] MEDS: CALCIUM GLUC 1,000 MG/NS 50 ML 1,000 MG/50 ML BAG 100 MG IVPB (20:52)
[2024-07-29 21:01] LABS: Glucose Point of Care 155 mg/dl (65-105)
[2024-07-29] MEDS: IPRATROPIUM 0.5 MG/ALBUTEROL SULFATE 2.5 MG AMPUL.NEB 3 ML INHALATION (21:14)
[2024-07-29 22:17] LABS: Glucose Point of Care 71 mg/dl (65-105)
[2024-07-29 23:26] LABS: Glucose Point of Care 149 mg/dl (65-105)
[2024-07-30] VITALS (24 sets, daily range): BP systolic 136–176; BP diastolic 50–91; PULSE 51–86; RESP 18–24; TEMP 36.5–37.2; O2SAT 96–100
[2024-07-30 05:36] LABS: Basophils Percent Auto 0.3 % (0.2-1.2); Eosinophils Absolute Auto 0.2 K/mm3 (0-0.3); Eosinophils Percent Auto 2.4 % (0-4.4); Hematocrit 24.3 % (42.0-52.0); Hemoglobin 7.4 g/dL (14.0-18.0); Immature Granulocyte Absolute 0.05 K/mm3 (0.00-0.031); Immature Granulocyte Percent A 0.5 % (0-0.5); Lymphocytes Absolute Auto 1.32 K/mm3 (0.9-3.2); Lymphocytes Percent Auto 13.5 % (18.3-44.2); Mean Corpuscular HGB Conc 30.5 g/dl (32-36); Mean Corpuscular Hemoglobin 29.1 pg (26-34); Mean Corpuscular Volume 95.7 fl (80-100); Mean Platelet Volume 9.5 fl (7.4-10.4); Monocytes Absolute Auto 0.6 K/mm3 (0.1-0.6); Monocytes Percent Auto 5.8 % (2.6-8.5); Neutrophils Absolute Auto 7.6 K/mm3 (1.3-6.7); Neutrophils Percent Auto 77.5 % (45.5-73.1); Platelet Count Result 243 k/mm3 (150-375); Red Blood Count 2.54 M/mm3 (4.6-6.20); Red Cell Distribution Width 13.7 % (11.5-14.5); White Blood Count 9.8 K/mm3 (4.5-10.0)
[2024-07-30 05:44] LABS: Creatine Kinase 112 U/L (55-170)
[2024-07-30 05:48] LABS: Alanine Aminotransferase 13 U/L (6-50); Albumin Level 3.4 g/dL (3.5-5.1); Alkaline Phosphatase 86 U/L (38-126); Anion Gap 8 mmol/L (4-12); Aspartate Amino Transferase 27 U/L (17-59); Bilirubin,Total 0.2 mg/dL (0.2-1.3); Blood Urea Nitrogen 47 mg/dL (9-20); Calcium 7.6 mg/dL (8.4-10.2); Carbon Dioxide 22 mmol/L (22-30); Chloride 107 mmol/L (98-107); Estimated CRCL calculation 17 ml/min; Estimated Glomerular Filt Rate 17; Glucose 76 mg/dL (65-110); Magnesium 1.7 mg/dL (1.6-2.3); Potassium 5.5 mmol/L (3.4-5.0); Sodium 137 mmol/L (137-145)
[2024-07-30 05:53] LABS: Complement C3 73 mg/dL (88-165)
[2024-07-30] MEDS: FLUTICASONE/UMECLIDIN/VILANTER 100-62.5-25 MCG ELLIPTA 1 PUFF INHALATION (07:07)
[2024-07-30 07:08] LABS: Creatinine Urine 31.4 mg/dL
[2024-07-30 07:11] LABS: Sodium Urine Random 47 meq/L
[2024-07-30 07:19] LABS: Eosinophil Urine None Seen % (None Seen); Urine Eos QC 2nd Tech Confirmed
[2024-07-30] MEDS: GABAPENTIN 300 MG CAPSULE PO ×2 (08:52→17:51)
[2024-07-30] MEDS: ASPIRIN 325 MG ENTERIC TABLET PO (08:52)
[2024-07-30] MEDS: CHOLECALCIFEROL 1,000 UNITS TABLET 1000 UNITS PO (08:52)
[2024-07-30] MEDS: MULTIVITAMINS THERAPEUTIC TAB (*BKC) 1 TABLET PO (08:53)
[2024-07-30] MEDS: FOLIC ACID 1 MG TABLET PO (08:53)
[2024-07-30] MEDS: CYANOCOBALAMIN 250 MCG TABLET PO (08:53)
[2024-07-30] MEDS: amLODIPine BESYLATE 10 MG TABLET PO (08:53)
[2024-07-30] MEDS: predniSONE 2.5 MG TABLET PO (08:53)
[2024-07-30] MEDS: FERROUS SULFATE 325 MG TABLET DR BY MOUTH (08:53)
[2024-07-30] MEDS: APIXABAN 2.5 MG TABLET PO (08:53)
[2024-07-30] MEDS: ASCORBIC ACID 500 MG TABLET PO (08:53)
[2024-07-30] MEDS: LORATADINE 10 MG TABLET PO (08:53)
[2024-07-30] MEDS: SODIUM BICARBONATE TAB 650 MG TABLET 1300 MG PO ×3 (08:53→17:51)
[2024-07-30] MEDS: EUCERIN CREAM 120 GM JAR 1 APPLIC TOPICAL ×2 (08:53→17:51)
[2024-07-30] MEDS: IPRATROPIUM 0.5 MG/ALBUTEROL SULFATE 2.5 MG AMPUL.NEB 3 ML INHALATION ×3 (08:55→20:55)
[2024-07-30] MEDS: SODIUM ZIRCONIUM CYCLOSILICATE 10 GM POWD.PACK PO ×3 (09:02→22:54)
--- NOTE | 2024-07-30 12:12 | P.PNNP_ITS ---
Progress Note: A&P Assessment and Plan (1) Hyperkalemia: Code(s): E87.5 - Hyperkalemia Status: Acute Assessment and Plan: * remains an issue * suspect due to medication effect * on high dose spironolactone per record review * given his underlying CKD, spironolactone may have potentiated his elevated K+ given the longer half life of this medication in the context of kidney disease * s/p aggressive medical management in ER and overnight * suspect ongoing regina K+ levels due to rebound effect from spironolactone still in his system/body * on scheduled lokelma * PRN IV medical management and nebulizer treatments * continue sodium bicarbonate which should help as well * follo-up on testing for sercondary causes (hemolysis, adrenal/hormonal issues, transcellular shift...etc) * low K+ diet (2) Chronic kidney disease, stage IV (severe): Code(s): N18.4 - Chronic kidney disease, stage 4 (severe) Status: Chronic Assessment and Plan: * as noted since previous hospitalization ~ 2 months ago * appears relatively stable * serological evaluation (since this was planned as an outpatient) pending * follow trend of electrolytes and volume status (3) COVID-19: Code(s): U07.1 - COVID-19 Status: Acute Assessment and Plan: * as noted by testing in ER * already on outpatient chronic steroid therapy * follow respiratory status (4) Chronic obstructive pulmonary disease: Code(s): J44.9 - Chronic obstructive pulmonary disease, unspecified Status: Chronic Assessment and Plan: * complicates #3 * on chronic supplemental oxygen * continue nebulizer treatments as needed (5) HTN (hypertension): Qualifiers: Hypertension type: essential hypertension Qualified Code(s): I10 - Essential (primary) hypertension Code(s): I10 - Essential (primary) hypertension Status: Chronic Assessment and Plan: * reasonable control * follow trend of hemodynamics (6) Afib: Qualifiers: Atrial fibrillation type: persistent (not longstanding) Qualified Code(s): I48.19 - Other persistent atrial fibrillation Code(s): I48.91 - Unspecified atrial fibrillation Status: Chronic Assessment and Plan: * rate control strategy * on anticoagulation (7) Type 2 diabetes mellitus: Qualifiers: Diabetes mellitus senior living insulin use: without termite inspector use Diabetes mellitus complication detail: with foot ulcer Code(s): E11.9 - Type 2 diabetes mellitus without complications Status: Chronic Assessment and Plan: * follow accu-cheks * no apparent home medications despite history * glycemic control per hospitalist Will continue to follow Subjective Date/time seen: 07/30/24 12:12 Interval history: Follow-up for hyperkalemia and chronic kidney disease. No apparent distress noted -- renal function stable if no a bit better at this time but potassium level continues to fluctuate despite all interventions to date; otherwise, he states he feels reasonably well with no acute complaints voiced. Exam Narrative: General: chronically ill appearing male in NAD Heart: normal S1 and S2; no rub Lungs: coarse breath sounds Abdomen: soft, nontender, nondistended, positive bowel sounds Extremities: no cyanosis or clubbing; no edema; s/p left BKA Skin: warm and intact Objective Data Vital Signs Vital Signs:
--- NOTE | 2024-07-30 12:12 | PM.PNNEP ---
Progress Note: A&P Assessment and Plan (1) Hyperkalemia: Code(s): E87.5 - Hyperkalemia Status: Acute Assessment and Plan: remains an issue suspect due to medication effect on high dose spironolactone per record review given his underlying CKD, spironolactone may have potentiated his elevated K+ given the longer half life of this medication in the context of kidney disease s/p aggressive medical management in ER and overnight suspect ongoing regina K+ levels due to rebound effect from spironolactone still in his system/body on scheduled lokelma PRN IV medical management and nebulizer treatments continue sodium bicarbonate which should help as well follo-up on testing for sercondary causes (hemolysis, adrenal/hormonal issues, transcellular shift...etc) low K+ diet (2) Chronic kidney disease, stage IV (severe): Code(s): N18.4 - Chronic kidney disease, stage 4 (severe) Status: Chronic Assessment and Plan: as noted since previous hospitalization ~ 2 months ago appears relatively stable serological evaluation (since this was planned as an outpatient) pending follow trend of electrolytes and volume status (3) COVID-19: Code(s): U07.1 - COVID-19 Status: Acute Assessment and Plan: as noted by testing in ER already on outpatient chronic steroid therapy follow respiratory status (4) Chronic obstructive pulmonary disease: Code(s): J44.9 - Chronic obstructive pulmonary disease, unspecified Status: Chronic Assessment and Plan: complicates #3 on chronic supplemental oxygen continue nebulizer treatments as needed (5) HTN (hypertension): Qualifiers: Hypertension type: essential hypertension Qualified Code(s): I10 - Essential (primary) hypertension Code(s): I10 - Essential (primary) hypertension Status: Chronic Assessment and Plan: reasonable control follow trend of hemodynamics (6) Afib: Qualifiers: Atrial fibrillation type: persistent (not longstanding) Qualified Code(s): I48.19 - Other persistent atrial fibrillation Code(s): I48.91 - Unspecified atrial fibrillation Status: Chronic Assessment and Plan: rate control strategy on anticoagulation (7) Type 2 diabetes mellitus: Qualifiers: Diabetes mellitus longterm insulin use: without terminal gauger use Diabetes mellitus complication detail: with foot ulcer Code(s): E11.9 - Type 2 diabetes mellitus without complications Status: Chronic Assessment and Plan: follow accu-cheks no apparent home medications despite history glycemic control per hospitalist Will continue to follow Subjective Date/time seen: 07/30/24 12:12 Interval history: Follow-up for hyperkalemia and chronic kidney disease. No apparent distress noted -- renal function stable if no a bit better at this time but potassium level continues to fluctuate despite all interventions to date; otherwise, he states he feels reasonably well with no acute complaints voiced. Exam Narrative: General: chronically ill appearing male in NAD Heart: normal S1 and S2; no rub Lungs: coarse breath sounds Abdomen: soft, nontender, nondistended, positive bowel sounds Extremities: no cyanosis or clubbing; no edema; s/p left BKA Skin: warm and intact Objective Data Vital Signs Vital Signs: Vital Signs Temp Pulse Resp BP Pulse Ox O2 Del Method O2 Flow Rate 07/30/24 08:00 97.9 F 70 20 176/62 H 100 07/30/24 09:05 82 20 07/30/24 08:55 83 20 07/30/24 07:07 70 18 07/30/24 07:07 70 18 97 Nasal Cannula 2 07/30/24 06:00 51 L 07/30/24 05:40 97.7 F 60 19 136/91 H 96 07/30/24 04:00 60 19 96 Room Air 07/30/24 04:00 55 L 07/30/24 02:00 57 L 07/30/24 00:00 62 07/29/24 22:00 75 07/30/24 00:00 62 19 96 Room A
[2024-07-30] MEDS: guaiFENesin 12 HR 600 MG TABCR PO ×2 (13:54→23:59)
[2024-07-30 14:39] LABS: Anion Gap 9 mmol/L (4-12); Blood Urea Nitrogen 45 mg/dL (9-20); Calcium 7.6 mg/dL (8.4-10.2); Carbon Dioxide 21 mmol/L (22-30); Chloride 105 mmol/L (98-107); Estimated CRCL calculation 17 ml/min; Estimated Glomerular Filt Rate 18; Glucose 135 mg/dL (65-110); Potassium 6.4 mmol/L (3.4-5.0); Sodium 135 mmol/L (137-145)
[2024-07-30] MEDS: DEXTROSE 50% 25 GM/50 ML SYRINGE IV PUSH (16:08)
[2024-07-30] MEDS: SODIUM BICARBONATE 8.4% 50 MEQ/50 ML SYRINGE IV PUSH (16:10)
[2024-07-30] MEDS: INSULIN HUMAN REGULAR (*BKC) 100 UNITS/ML 10 UNITS IV PUSH (16:10)
[2024-07-30] MEDS: CALCIUM GLUC 1,000 MG/NS 50 ML 1,000 MG/50 ML BAG 100 MG IVPB (16:11)
--- NOTE | 2024-07-30 16:48 | PM.IMPN ---
Progress Note: A&P Assessment and Plan (1) Hyperkalemia: Code(s): E87.5 - Hyperkalemia Status: Acute Assessment and Plan: K 6.4 On Kayexalate monitor Spironolactone on hold Patient need dialysis, will defer to Nephrology (2) COVID-19: Code(s): U07.1 - COVID-19 Status: Acute Assessment and Plan: No Remdesivir it was noted that patient tested positive in June continue monitoring (3) Hypoglycemia: Code(s): E16.2 - Hypoglycemia, unspecified Status: Acute Assessment and Plan: resolved monitor (4) HTN (hypertension): Qualifiers: Hypertension type: essential hypertension Qualified Code(s): I10 - Essential (primary) hypertension Code(s): I10 - Essential (primary) hypertension Status: Chronic Assessment and Plan: Blood pressures are modestly elevated will continue home amlodipine. (5) Afib: Qualifiers: Atrial fibrillation type: persistent (not longstanding) Qualified Code(s): I48.19 - Other persistent atrial fibrillation Code(s): I48.91 - Unspecified atrial fibrillation Status: Chronic Assessment and Plan: Continue Eliquis Hold rate control meds until hyperkalemia has resolved monitor Plan Anemia hb 7.3, Isat 25 continue monitoring h and H and transfuse with threshold of 7 for Hemoglobin monitor DVT prophylaxis on Eliquis Subjective Date/time seen: 07/30/24 16:48 Interval history: Comfortable at bedside K 6.4 today nephrology on board Review of Systems Review of Systems: Limited due to lack of patient participation in history and physical process. Exam Narrative: General: alert and comfortable Eyes: EOMI, PERRLA ENNT External ears normal, Neck is supple, no masses, Respiratory systems: Clear to auscultation Cardiovascular S1, S2, normal rhythm, no murmur, rub, or gallop; no thrill or palpable murmurs on palpation. Gastrointestinal: soft, non-tender, and non-distended abdomen with no masses; BS present Skin: no rash, lesions, ulcerations, subcutaneous nodules or induration Musculoskeletal: left [id number] amputation, Neurologic: Alert and oriented x3, non focal Mental Status Exam: normal affect Const: Other: Chronically ill-appearing, appears older than stated age, debilitated, well-nourished HENMT: Other: Mucous membranes are tacky, no oral pharyngeal erythema, edentulous in upper and lower jaw Eyes: Other: Pupils are equal and reactive evidence of left lens replacement, positive conjunctival pallor, no scleral icterus Neck: Other: No JVD, no lymphadenopathy Resp: Other: Diffuse wheezing bilateral upper and lower lung zones, no increased work of breathing Cardio: Other: Irregular rhythm, regular rate, 2+ bilateral radial pulses GI: Other: Slightly distended, soft, nontender, positive bowel sounds Skin: Other: Darkly pigmented skin patches in a pattern consistent with ichthyosis, no open wounds, otherwise generalized pallor underlying Neuro: Other: Patient is alert orient x4, speech is clear, hard hearing, no obvious facial asymmetry but difficult to determine given patient has no dentures in place and is less than cooperative with exam Extrem: Other: 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
[2024-07-30 17:06] LABS: Creatinine Urine 28.1 mg/dL
[2024-07-30 17:13] LABS: Potassium Urine Random 18.8 meq/L; Sodium Urine Random 82 meq/L
[2024-07-30 19:51] LABS: Alanine Aminotransferase 14 U/L (6-50); Albumin Level 3.7 g/dL (3.5-5.1); Alkaline Phosphatase 83 U/L (38-126); Aspartate Amino Transferase 29 U/L (17-59); Bilirubin,Total 0.3 mg/dL (0.2-1.3); Lactate Dehydrogenase 181 U/L (120-246)
[2024-07-30 19:52] LABS: Anion Gap 9 mmol/L (4-12); Blood Urea Nitrogen 48 mg/dL (9-20); Calcium 7.9 mg/dL (8.4-10.2); Carbon Dioxide 22 mmol/L (22-30); Chloride 106 mmol/L (98-107); Estimated CRCL calculation 19 ml/min; Estimated Glomerular Filt Rate 20; Glucose 107 mg/dL (65-110); Potassium 5.3 mmol/L (3.4-5.0); Sodium 137 mmol/L (137-145)
[2024-07-30] MEDS: traZODone HCL 50 MG TABLET PO (21:27)
[2024-07-30] MEDS: SIMVASTATIN 10 MG TABLET PO (21:27)
[2024-07-30] MEDS: BENZONATATE 100 MG CAPSULE PO (21:27)
[2024-07-30] MEDS: SERTRALINE HCL 50 MG TABLET 100 MG PO (21:29)
[2024-07-31] VITALS (17 sets, daily range): BP systolic 131–164; BP diastolic 42–79; PULSE 57–90; RESP 16–24; TEMP 36.6–37.7; O2SAT 96–99
[2024-07-31 03:19] LABS: Protein, Total 5.7 g/dL (6.1-8.1)
[2024-07-31 05:20] LABS: Basophils Absolute Auto 0.1 K/mm3 (0.0-0.1); Basophils Percent Auto 0.5 % (0.2-1.2); Eosinophils Absolute Auto 0.3 K/mm3 (0-0.3); Eosinophils Percent Auto 2.5 % (0-4.4); Hematocrit 24.2 % (42.0-52.0); Hemoglobin 7.6 g/dL (14.0-18.0); Immature Granulocyte Absolute 0.06 K/mm3 (0.00-0.031); Immature Granulocyte Percent A 0.6 % (0-0.5); Lymphocytes Absolute Auto 1.15 K/mm3 (0.9-3.2); Lymphocytes Percent Auto 11.6 % (18.3-44.2); Mean Corpuscular HGB Conc 31.4 g/dl (32-36); Mean Corpuscular Hemoglobin 29.8 pg (26-34); Mean Corpuscular Volume 94.9 fl (80-100); Mean Platelet Volume 9.6 fl (7.4-10.4); Monocytes Absolute Auto 0.7 K/mm3 (0.1-0.6); Monocytes Percent Auto 6.7 % (2.6-8.5); Neutrophils Absolute Auto 7.7 K/mm3 (1.3-6.7); Neutrophils Percent Auto 78.1 % (45.5-73.1); Platelet Count Result 220 k/mm3 (150-375); Red Blood Count 2.55 M/mm3 (4.6-6.20); Red Cell Distribution Width 13.6 % (11.5-14.5); White Blood Count 9.9 K/mm3 (4.5-10.0)
[2024-07-31 05:33] LABS: Alanine Aminotransferase 14 U/L (6-50); Albumin Level 3.4 g/dL (3.5-5.1); Alkaline Phosphatase 92 U/L (38-126); Anion Gap 7 mmol/L (4-12); Aspartate Amino Transferase 26 U/L (17-59); Bilirubin,Total 0.3 mg/dL (0.2-1.3); Blood Urea Nitrogen 42 mg/dL (9-20); Calcium 7.9 mg/dL (8.4-10.2); Carbon Dioxide 23 mmol/L (22-30); Chloride 108 mmol/L (98-107); Estimated CRCL calculation 18 ml/min; Estimated Glomerular Filt Rate 18; Glucose 92 mg/dL (65-110); Magnesium 1.7 mg/dL (1.6-2.3); Phosphorus 4.9 mg/dL (2.5-4.5); Potassium 4.9 mmol/L (3.4-5.0); Sodium 138 mmol/L (137-145)
[2024-07-31] MEDS: FLUTICASONE/UMECLIDIN/VILANTER 100-62.5-25 MCG ELLIPTA 1 PUFF INHALATION (08:27)
[2024-07-31] MEDS: SODIUM BICARBONATE TAB 650 MG TABLET 1300 MG PO ×3 (08:45→16:48)
[2024-07-31] MEDS: EUCERIN CREAM 120 GM JAR 1 APPLIC TOPICAL ×2 (08:45→16:48)
[2024-07-31] MEDS: MULTIVITAMINS THERAPEUTIC TAB (*BKC) 1 TABLET PO (08:45)
[2024-07-31] MEDS: LORATADINE 10 MG TABLET PO (08:46)
[2024-07-31] MEDS: ASCORBIC ACID 500 MG TABLET PO (08:46)
[2024-07-31] MEDS: ASPIRIN 325 MG ENTERIC TABLET PO (08:46)
[2024-07-31] MEDS: predniSONE 2.5 MG TABLET PO (08:46)
[2024-07-31] MEDS: CHOLECALCIFEROL 1,000 UNITS TABLET 1000 UNITS PO (08:46)
[2024-07-31] MEDS: FERROUS SULFATE 325 MG TABLET DR BY MOUTH (08:46)
[2024-07-31] MEDS: FOLIC ACID 1 MG TABLET PO (08:46)
[2024-07-31] MEDS: CYANOCOBALAMIN 250 MCG TABLET PO (08:51)
[2024-07-31] MEDS: GABAPENTIN 300 MG CAPSULE PO ×2 (08:51→16:48)
[2024-07-31] MEDS: amLODIPine BESYLATE 10 MG TABLET PO (08:56)
--- NOTE | 2024-07-31 11:13 | P.PNNP_ITS ---
Progress Note: A&P Assessment and Plan (1) Hyperkalemia: Code(s): E87.5 - Hyperkalemia Status: Acute Assessment and Plan: * remains an issue but better * suspicion fall on medication side effect * on high dose spironolactone per record review * given his underlying CKD, spironolactone may have potentiated his elevated K+ given the longer half life of this medication in the context of kidney disease * s/p aggressive medical management in ER and overnight * suspect ongoing regina K+ levels due to rebound effect from spironolactone still in his system/body * on scheduled lokelma * PRN IV medical management and nebulizer treatments * continue sodium bicarbonate which should help as well * follow-up on testing for secondary causes * hemolysis less likely - LFTs okay * aldosterone and renin pending * urine studies to calculate TTKG pending * cortisol not checked since on chronic steroids * on low K+ diet (2) Chronic kidney disease, stage IV (severe): Code(s): N18.4 - Chronic kidney disease, stage 4 (severe) Status: Chronic Assessment and Plan: * as noted since previous hospitalization ~ 2 months ago * appears relatively stable * serological evaluation (since this was planned as an outpatient) pending * follow trend of electrolytes and volume status (3) COVID-19: Code(s): U07.1 - COVID-19 Status: Acute Assessment and Plan: * as noted by testing in ER * already on outpatient chronic steroid therapy * follow respiratory status (4) Chronic obstructive pulmonary disease: Code(s): J44.9 - Chronic obstructive pulmonary disease, unspecified Status: Chronic Assessment and Plan: * complicates #3 * on chronic supplemental oxygen * continue nebulizer treatments as needed (5) HTN (hypertension): Qualifiers: Hypertension type: essential hypertension Qualified Code(s): I10 - Essential (primary) hypertension Code(s): I10 - Essential (primary) hypertension Status: Chronic Assessment and Plan: * reasonable control * follow trend of hemodynamics (6) Afib: Qualifiers: Atrial fibrillation type: persistent (not longstanding) Qualified Code(s): I48.19 - Other persistent atrial fibrillation Code(s): I48.91 - Unspecified atrial fibrillation Status: Chronic Assessment and Plan: * rate control strategy * on anticoagulation (7) Type 2 diabetes mellitus: Qualifiers: Diabetes mellitus mcc insulin use: without intermodal customer service use Diabetes mellitus complication detail: with foot ulcer Code(s): E11.9 - Type 2 diabetes mellitus without complications Status: Chronic Assessment and Plan: * follow accu-cheks * no apparent home medications despite history * glycemic control per hospitalist Will continue to follow Subjective Date/time seen: 07/31/24 11:13 Interval history: Follow-up for hyperkalemia and chronic kidney disease. Potassium doing better by AM labs (less > 5.0) and renal function/creatinine stable if not better as well; no apparent distress noted; breathing/respiratory status seems stable as well; no issues/events overnight or earlier this morning. Exam Narrative: General: chronically ill appearing male in NAD Heart: normal S1 and S2; no rub Lungs: coarse breath sounds Abdomen: soft, nontender, nondistended, positive bowel sounds Extremities: no cyanosis or clubbing; no shawn
--- NOTE | 2024-07-31 11:13 | PM.PNNEP ---
Progress Note: A&P Assessment and Plan (1) Hyperkalemia: Code(s): E87.5 - Hyperkalemia Status: Acute Assessment and Plan: remains an issue but better suspicion fall on medication side effect on high dose spironolactone per record review given his underlying CKD, spironolactone may have potentiated his elevated K+ given the longer half life of this medication in the context of kidney disease s/p aggressive medical management in ER and overnight suspect ongoing regina K+ levels due to rebound effect from spironolactone still in his system/body on scheduled lokelma PRN IV medical management and nebulizer treatments continue sodium bicarbonate which should help as well follow-up on testing for secondary causes hemolysis less likely - LFTs okay aldosterone and renin pending urine studies to calculate TTKG pending cortisol not checked since on chronic steroids on low K+ diet (2) Chronic kidney disease, stage IV (severe): Code(s): N18.4 - Chronic kidney disease, stage 4 (severe) Status: Chronic Assessment and Plan: as noted since previous hospitalization ~ 2 months ago appears relatively stable serological evaluation (since this was planned as an outpatient) pending follow trend of electrolytes and volume status (3) COVID-19: Code(s): U07.1 - COVID-19 Status: Acute Assessment and Plan: as noted by testing in ER already on outpatient chronic steroid therapy follow respiratory status (4) Chronic obstructive pulmonary disease: Code(s): J44.9 - Chronic obstructive pulmonary disease, unspecified Status: Chronic Assessment and Plan: complicates #3 on chronic supplemental oxygen continue nebulizer treatments as needed (5) HTN (hypertension): Qualifiers: Hypertension type: essential hypertension Qualified Code(s): I10 - Essential (primary) hypertension Code(s): I10 - Essential (primary) hypertension Status: Chronic Assessment and Plan: reasonable control follow trend of hemodynamics (6) Afib: Qualifiers: Atrial fibrillation type: persistent (not longstanding) Qualified Code(s): I48.19 - Other persistent atrial fibrillation Code(s): I48.91 - Unspecified atrial fibrillation Status: Chronic Assessment and Plan: rate control strategy on anticoagulation (7) Type 2 diabetes mellitus: Qualifiers: Diabetes mellitus hair tinter insulin use: without hair tinter use Diabetes mellitus complication detail: with foot ulcer Code(s): E11.9 - Type 2 diabetes mellitus without complications Status: Chronic Assessment and Plan: follow accu-cheks no apparent home medications despite history glycemic control per hospitalist Will continue to follow Subjective Date/time seen: 07/31/24 11:13 Interval history: Follow-up for hyperkalemia and chronic kidney disease. Potassium doing better by AM labs (less > 5.0) and renal function/creatinine stable if not better as well; no apparent distress noted; breathing/respiratory status seems stable as well; no issues/events overnight or earlier this morning. Exam Narrative: General: chronically ill appearing male in NAD Heart: normal S1 and S2; no rub Lungs: coarse breath sounds Abdomen: soft, nontender, nondistended, positive bowel sounds Extremities: no cyanosis or clubbing; no edema; s/p left BKA Skin: no rash or nodules Objective Data Vital Signs Vital Signs: Vital Signs Temp Pulse Resp BP Pulse Ox O2 Del Method O2 Flow Rate 07/31/24 08:00 99 Nasal Cannula 2 07/31/24 08:00 98.0 F 63 16 150/42 H 99 07/31/24 08:31 97 Nasal Cannula 2 07/31/24 08:30 67 18 07/31/24 06:00 69 07/31/24 04:00 57 L 07/31/24 04:00 97 Nasal Cannula 2 07/31/24 03:40 98.9 F 74 24 H 131/68 96 07/31/24 02:00 85
[2024-07-31] MEDS: SODIUM ZIRCONIUM CYCLOSILICATE 10 GM POWD.PACK PO (11:28)
[2024-07-31 12:02] LABS: Lambda Light Chain 49.4 mg/L (5.7-26.3)
[2024-07-31] MEDS: guaiFENesin 12 HR 600 MG TABCR PO (12:28)
[2024-07-31 13:44] LABS: Osmolality, Urine 280 mOsm/kg (50-1200)
[2024-07-31 14:17] LABS: Potassium 5.5 mmol/L (3.4-5.0)
[2024-07-31 14:23] LABS: Anion Gap 8 mmol/L (4-12); Blood Urea Nitrogen 41 mg/dL (9-20); Carbon Dioxide 22 mmol/L (22-30); Chloride 106 mmol/L (98-107); Estimated CRCL calculation 19 ml/min; Estimated Glomerular Filt Rate 20; Glucose 143 mg/dL (65-110); Potassium 5.6 mmol/L (3.4-5.0); Sodium 136 mmol/L (137-145)
[2024-07-31 15:04] LABS: Anti Glomerular Basement Memb <1.0 AI
--- NOTE | 2024-07-31 15:10 | PM.DS ---
DS: Admitting Diagnosis Discharge Date 07/31/24 Admitting Diagnosis Hyperkalemia DS: Discharge Diagnosis Discharge Diagnosis (1) Hyperkalemia: Code(s): E87.5 - Hyperkalemia Status: Resolved DS: Summary Hospital Course Hospital Course: 78-year-old male with a past medical history chronic kidney disease stage 4, COPD, chronic hypoxic respiratory failure, atrial fibrillation, diastolic heart failure and history of alcoholism who [facility] after routine labs demonstrated hyperkalemia. Repeat labs at our facility demonstrated potassium was 7.1. Patient stated that he did not know why the labs have been drawn but he had recently been evaluated outpatient at the [facility]. I suspect that these were labs ordered to follow-up in that regard but this cannot be confirmed. The patient denies any other concerning symptoms. He was noted to be tachypneic in the ER and was wheezing significantly. He denied any changes in his respiratory status from baseline. He does admit to having an occasional cough but does not think it is increased. He has not had any fevers and was afebrile on presentation to the ER. His EKG in the ER did demonstrate peaked T-waves. He received treatment with IV insulin, 12.5 mg dextrose, an amp of calcium gluconate and a 2.5 or 5 mg albuterol as well as a dose of Lokelma. The patient unfortunately did develop hypoglycemia after this treatment which was corrected with an additional 50 of glucose. Repeat labs an hour later demonstrated potassium down to 6.3 and normal glucoses. I was contacted for admission. I requested additional doses of calcium gluconate and Lokelma as well as an amp of sodium bicarb and an hour long nebulizer. The patient received the other long nebulizer in the ER but there was a delay receiving the remainder of the regimen. Unfortunately patient is 3rd BMP was obtained prior to him receiving additional corrective medications. In the IMU he did receive said medications and repeat labs have been ordered. On review of patient's chart it appears that the patient's was on Lasix and low-dose potassium at the time of his last discharge from the hospital. His lisinopril was also discontinued at that time (end of April). The electronic external pharmacy records indicate that the patient had 100 mg of spironolactone ordered on the 23 of July. Then a secondary script was ordered for 25 mg on the . I can only assume that there may have been a pharmacy clarification of the 100 mg dose and subsequently a 25 mg dose was then ordered. Unfortunately [facility] to the [facility] it appears the patient has actually been receiving a total of 125 mg of spironolactone daily since the . However my interpretation of the records may be faulty. It does appear that the patient's Lasix and potassium were discontinued somewhat recently. The patient is unaware of any recent medication changes. Patient is not helpful in providing any additional history and is a relatively poor historian despite being oriented to person place time and current political events. History and physical obtained from mostly review of jail records, ER staff report and nursing report. The patient does not actively participate in providing history despite being alert oriented. Patient was started on Lokelma potassium today 4.9 and repeat 5.5, nephrology recommended continuing Lokelma 10mg bid and discontinuing Spironolactone. [facility] to jail on low potassium diet, and lokelma as above and repeat BMP next week. Assessment and Plan (1) Hyperkalemia: Code(s): E87.5 - Hyperkalemia Status: Acute Assessment and Plan: K 6.4 On Kayexalate monitor Spironolactone on hold Patient need dialysis, will defer to Nephrology (2) COVID-19: Code(s): U07.1 - COVID-19 Status: Acute Assessment and Plan: No Remdesivir
[2024-07-31 16:58] LABS: Creatinine, Random Urine 33 mg/dL (20-320); Total Prot/Creat ratio mg/mg 1.152 (0.025-0.148); Total Protein/Creatinine Ratio 1152 mg/g creat (25-148)
[2024-07-31] MEDS: IPRATROPIUM 0.5 MG/ALBUTEROL SULFATE 2.5 MG AMPUL.NEB 3 ML INHALATION (20:23)
--- NOTE | 2024-07-31 20:38 | PC.NURSE ---
Patient discharged to [facility] at this time. Patient alert and oriented. Afib rhythm. Lungs clear and diminished. No new skin issues. All personal belongings sent with patient.
[2024-08-01 11:08] LABS: Haptoglobin 96 mg/dL (43-212)
[2024-08-01 12:43] LABS: ANCA Screen NEGATIVE (NEGATIVE)
[2024-08-03 09:14] LABS: Abnormal Protein Band 1 0.2 g/dL (NONE DETECTED); Albumin 3.2 g/dL (3.8-4.8); Alpha 1 Globulin 0.3 g/dL (0.2-0.3); Alpha 2 Globulin 0.6 g/dL (0.5-0.9); Beta 1 Globulin 0.3 g/dL (0.4-0.6); Gamma Globulin 0.9 g/dL (0.8-1.7)
[2024-08-03 14:58] LABS: Erythropoietin (EPO) 7.7 mIU/mL (2.6-18.5)
[2024-08-06 08:23] LABS: Anti Nuclear Antibody Pattern Cytoplasmic; Anti Nuclear Antibody Titer 1:40 titer
[2024-08-09 12:28] LABS: Renin 1.76 ng/mL/h (0.25-5.82)
[2024-08-09 12:58] LABS: PRA 1.12 ng/mL/h (0.25-5.82)
== END 2024-07-31 20:38 | DRG 640 ==
LOC: ANHED 19:31 → ANHIMU 21:05
PROVIDERS: Internal Medicine Nephrology; Physician Assistant; Admitting Provider Internal Medicine; Emergency Provider Physician Assistant; PCP Emergency Medicine; Visit Provider Internal Medicine
DX: E87.5 Hyperkalemia (principal); U07.1 COVID-19; J96.11 Chronic respiratory failure with hypoxia; I48.19 Other persistent atrial fibrillation; I13.0 Hypertensive heart and chronic kidney disease with heart failure and stage 1 through stage 4 chronic kidney disease, or unspecified chronic kidney disease; I50.32 Chronic diastolic (congestive) heart failure; N18.4 Chronic kidney disease, stage 4 (severe); I27.20 Pulmonary hypertension, unspecified; J44.9 Chronic obstructive pulmonary disease, unspecified; E11.649 Type 2 diabetes mellitus with hypoglycemia without coma; E11.319 Type 2 diabetes mellitus with unspecified diabetic retinopathy without macular edema; E11.42 Type 2 diabetes mellitus with diabetic polyneuropathy; E78.2 Mixed hyperlipidemia; K21.9 Gastro-esophageal reflux disease without esophagitis; K58.9 Irritable bowel syndrome, unspecified; N40.0 Benign prostatic hyperplasia without lower urinary tract symptoms; M19.90 Unspecified osteoarthritis, unspecified site; T50.0X5A Adverse effect of mineralocorticoids and their antagonists, initial encounter; T38.3X5A Adverse effect of insulin and oral hypoglycemic [antidiabetic] drugs, initial encounter; F10.10 Alcohol abuse, uncomplicated; F32.A Depression, unspecified; Z96.641 Presence of right artificial hip joint; Z23 Encounter for immunization; Z99.81 Dependence on supplemental oxygen; Z79.01 Long term (current) use of anticoagulants; Z89.512 Acquired absence of left leg below knee; Z89.421 Acquired absence of other right toe(s); Z87.891 Personal history of nicotine dependence
CPT/HCPCS: 36415; 71046; 80048; 80053; 80069; 80076; 81001; 82088; 82248; 82550; 82570; 82668; 82728; 82948; 83010; 83520; 83540; 83550; 83615; 83735; 83880; 83883; 83930; 83935; 84100; 84132; 84133; 84155; 84156; 84165; 84166; 84244; 84300; 85025; 85027; 85999; 86036; 86038; 86039; 86160; 86225; 87637; 93005; 94640; 96375; 96376; A9270; G0378; J0612; J1100; J1815; J2405; J7040

== ENCOUNTER 2024-10-12 14:30 | Inpatient (IN) | payer MEDICARE, MEDICAID, SELFPAY ==
[2024-10-12] VITALS (11 sets, daily range): BP systolic 148–168; BP diastolic 48–95; PULSE 60–88; RESP 15–22; TEMP 36.2–36.8; O2SAT 95–100; BMI 22.6
--- NOTE | ~2024-10-12 | XR_ITS ---
EXAMINATION: [id number] DATE: 10/12/2024 15:49 INDICATION: Chest pain. Fall. TECHNIQUE: A frontal inspiratory view of the chest and 3 views of the left ribs were obtained. COMPARISON: Chest radiograph dated 07/27/2024 FINDINGS: Mildly displaced fractures of the posterior left 10th and 11th ribs. Small left pleural effusion with retrocardiac consolidation which could represent secondary compressive atelectasis or pneumonia. Mil d discoid atelectasis in the right midlung zone. No pneumothorax. Heart size is normal. S-shaped scoliosis of the thoracic spine with mild to moderate spondylosis. Chronic T12 and L1 compre ssion fractures which appear unchanged when compared with CT dated 05/28/2022 IMPRESSION: 1. Mildly displaced fractures of the posterior left 10th and 11th ribs. 2. Small left pleural effusion with retrocardiac atelectasis versus pneumonia. No pneumothorax. Reviewed, dictated and finalized at location A. [facility] [employer]
[2024-10-12 15:36] LABS: Basophils Percent Auto 0.3 % (0.2-1.2); Eosinophils Absolute Auto 0.3 K/mm3 (0-0.3); Eosinophils Percent Auto 1.8 % (0-4.4); Hematocrit 22.8 % (42.0-52.0); Immature Granulocyte Absolute 0.11 K/mm3 (0.00-0.031); Immature Granulocyte Percent A 0.7 % (0-0.5); Lymphocytes Absolute Auto 0.79 K/mm3 (0.9-3.2); Lymphocytes Percent Auto 5.4 % (18.3-44.2); Mean Corpuscular HGB Conc 28.5 g/dl (32-36); Mean Corpuscular Volume 101.8 fl (80-100); Mean Platelet Volume 9.8 fl (7.4-10.4); Monocytes Absolute Auto 0.9 K/mm3 (0.1-0.6); Monocytes Percent Auto 6.2 % (2.6-8.5); Neutrophils Absolute Auto 12.6 K/mm3 (1.3-6.7); Neutrophils Percent Auto 85.6 % (45.5-73.1); Platelet Count Result 259 k/mm3 (150-375); Red Blood Count 2.24 M/mm3 (4.6-6.20); White Blood Count 14.8 K/mm3 (4.5-10.0)
--- NOTE | 2024-10-12 15:40 | ED_ITS ---
HPI - General Adult General Chief complaint: Recheck/Abnormal Lab/Rx Stated complaint: abnormal labs Time Seen by Provider: 10/12/24 14:56 History of Present Illness HPI narrative: Patient is a 78-year-old male who presents ER after being found to have abnormal lab work at his facility. Hemoglobin is low. He is on Eliquis. He also had a fall several days ago. He has had left-sided rib pain since that fall. He has had no dark black stools. No hematemesis. Denies seeing a production maintenance mechanic. Related Data Home Medications ?Medication ?Instructions ?Recorded ?Confirmed ?Last Taken ?Type folic acid 1 mg tablet 1 mg PO DAILY 12/02/20 07/27/24 03/30/22 History acetaminophen 650 mg 650 mg PO Q4H PRN PAIN 09/30/23 07/27/24 Unknown History tablet,extended release baclofen 5 mg tablet 5 mg PO Q8H PRN MUSCLE SPASM 09/30/23 07/27/24 Unknown History benzonatate 100 mg capsule 100 mg PO TID PRN Cough 09/30/23 07/27/24 Unknown History bisacodyl 10 mg rectal suppository 10 mg RECTAL DAILY PRN SEE 09/30/23 07/27/24 Unknown History INSTRUCTIONS cetirizine 10 mg tablet 10 mg PO DAILY 09/30/23 07/27/24 Unknown History cholecalciferol (vitamin D3) 25 25 mcg PO DAILY 09/30/23 07/27/24 Unknown History mcg (1,000 unit) tablet ipratropium 0.5 mg-albuterol 3 mg 3 ml inhalation HS 09/30/23 07/27/24 Unknown History (2.5 mg base)/3 mL nebulization soln ipratropium bromide 17 2 puff inhalation Q4H PRN sob 09/30/23 07/27/24 Unknown History mcg/actuation HFA aerosol inhaler (Atrovent HFA) magnesium citrate (Citroma oral 296 ml PO DAILY PRN SEE 09/30/23 07/27/24 Unknown History solution) INSTRUCTIONS magnesium hydroxide 400 mg/5 mL 30 ml PO QHS PRN Constipation 09/30/23 07/27/24 Unknown History oral suspension sertraline 50 mg tablet 100 mg PO QHS 09/30/23 07/27/24 Unknown History sodium phosphates 19 gram-7 118 ml RECTAL ONCE PRN SEE 09/30/23 07/27/24 Unknown History gram/118 mL enema (Fleet Enema) INSTRUCTIONS guaifenesin 600 mg tablet, 600 mg PO Q12H 05/25/24 07/27/24 Unknown History extended release 12 hr ipratropium 0.5 mg-albuterol 3 mg 3 ml inhalation Q4H PRN SOB 05/25/24 07/27/24 Unknown History (2.5 mg base)/3 mL nebulization soln ascorbic acid (vitamin C) 500 mg 500 mg PO QAM 07/23/24 07/27/24 Unknown History capsule cyanocobalamin (vitamin B-12) 500 250 mcg PO DAILY 07/23/24 07/27/24 Unknown History mcg tablet ferrous sulfate 325 mg (65 mg 325 mg PO DAILY 07/23/24 07/27/24 Unknown History iron) tablet gabapentin 300 mg capsule 300 mg PO BID 07/23/24 07/27/24 Unknown History hydrocortisone 1 % topical cream 1 applic topical .Q 8HR PRN FOR 07/23/24 07/27/24 Unknown History (Cortisone (hydrocortisone)) ITCHING apixaban 2.5 mg tablet (Eliquis) 2.5 mg PO BID 07/27/24 07/27/24 Unknown History aspirin 81 mg tablet,delayed 325 mg PO QAM 07/27/24 07/27/24 Unknown History release fluticasone fur. 100 mcg-umeclid 1 inh inhalation DAILY 07/27/24 07/27/24 Unknown History 62.5 mcg-vilant 25 mcg inhalat.powder (Trelegy Ellipta) ipratropium bromide 17 2 puff inhalation TID 07/27/24 07/27/24 Unknown History mcg/actuation HFA aerosol inhaler (Atrovent HFA) lanolin alcohols-mineral 1 applic topical QSHIFT 07/27/24 07/27/24 Unknown History oil-w.petrolatum-ceresin topical cream (Minerin Creme topical) prednisone 2.5 mg tablet 2.5 mg PO DAILY 07/27/24 07/27/24 Unknown History simvastatin 10 mg tablet 10 mg PO HS 07/27/24 07/27/24 Unknown History Allergies Allergy/AdvReac Type Severity Reaction Status Date / Time niacin Allergy Intermediate Rash/itchin Verified 10/12/24 14:33 g hydrocodone (From [facility]) AdvReac Confusion Verified 10/12/24 14:33 Review of Systems 2 Review of Systems: All systems reviewed & are unremarkable except as noted in HPI and below Constitutional: Constitutional: Reports no additional constitutional complaints Respiratory: Respiratory: Reports no additional respiratory complaints Gastrointestinal: Gastrointestinal: Reports no additional gastrointestinal complaints [facility] Past Medical History Medical History (Updated 10/12/24 @ 18:05 by Beranrdino Palma MD) Diabetic retinopathy Dilated eye exam December 2023 demonstrating mild bilateral disease CKD (chronic kidney disease) stage 4, GFR 15-29 ml/min COVID-19 Metabolic acidosis Alcohol abuse Acute hyperkalemia Acute kidney injury Hypoxia Acidosis Abrasion of left leg Pulmonary hypertension Echocardiogram on 06/08/2021 showed normal left ventricular systolic function with an EF estimated 65 to 70%, mildly increased LV wall thickness, severely enlarged right atrial chamber, mildly enlarged left atrial chamber, mild mitral valve and trace tricuspid valve regurgitation, and mild pulmonary hypertension with an estimated pulmonary arterial systolic pressure of 35 mmHg. Diabetic foot ulcer Acute and chronic respiratory failure Pancreatitis (03/2021) MRSA (methicillin resistant Staphylococcus aureus) septicemia (09/2020) Alcohol abuse Chronic anemia Ichthyosis vulgaris Osteoarthritis Former smoker Irritable bowel syndrome Chronic respiratory failure with hypoxia, on home O2 therapy Gastroesophageal reflux disease Benign prostatic hyperplasia Type 2 diabetes mellitus Hemoglobin A1c was 6.6% on 06/09/2021. Chronic obstructive pulmonary disease Severe obstructive disease without bronchodilator relief noted on PFTs September 2019 Hypertension Diastolic congestive heart failure Echocardiogram 2020 EF 65-70, mildly increased left ventricular wall thickness, severe right atrial enlargement, mild left atrial enlargement, mild pulmonary hypertension with RVSP of 35, indeterminate diastolic function due to AFib Persistent atrial fibrillation Diabetic peripheral neuropathy Hearing loss Cerebrovascular accident Foot osteomyelitis, left Wound, open, foot Diabetic foot infection (Unknown) Severe sepsis Anxiety Depression Sacrum and coccyx fracture Osteomyelitis History of osteomyelitis of both feet requiring multiple amputations. 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 History of total right hip arthroplasty (2002) History of ventral hernia repair (2006) History of tonsillectomy History of bilateral cataract extraction Family History Family History Mother Patient's mother is , Onset Age: 31 Father Suicide Social History Social History Social History: Surrogate medical decision maker: Annetta Jean Baptiste, daughter Code status: Full code. Smoking packs per day: 1 Smoking cigarettes per day: 20.0 Years smoked: 58 Smoking pack-years: 58.00 Smoking status: Current some day smoker Second hand tobacco smoke exposure: No Alcohol intake: former Substance use: never Substance use type: does not use Other substance usage details: 2 shots of whiskey and 2 beers daily. Do You Feel Safe in your Home?: Yes Lack of Transportation: No Lack of Food: Never True Current Housing: I Have Housing Concerned About Future Housing: No Difficulty Paying Gas/Electric Bills: No Difficulty Paying for Meds: No Currently Unemployed: No Education: Grade School Difficulty w/ Childcare or Family Care: No Living arrangements: halfway Additional living arrangements comments: . He has 7 children. 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 Spiritual care concerns: No Exam 2 Narrative: GENERAL: Well-appearing, well-nourished, and in no acute distress. HEAD: Normocephalic, atraumatic. ENT: Mucous membranes moist. NECK: Supple. CHEST: Clear to auscultation. No respiratory distress. TTP left lateral chest wall. HEART: Regular rate and rhythm. NoNormal peripheral pulses. ABDOMEN: Soft, nontender, nondistended. Heme positive stool on YARY. EXTREMITIES: Normal range of motion. No edema. SKIN: Warm, dry, no rash. NEURO: Alert and oriented x3. PSYCH: Normal mood and affect. Course Course Emergency Course: GI consulted. Patient resting comfortably. Informed of results. Blood ordered for transfusion. Admit. Vital Signs Vital signs: Vital Signs Temperature 98.3 F 10/12/24 14:27 Pulse Rate 76 10/12/24 14:27 Respiratory Rate 20 10/12/24 14:27 Blood Pressure 159/48 H 10/12/24 14:27 Pulse Oximetry 97 10/12/24 14:27 Oxygen Delivery Nasal Cannula 10/12/24 14:27 Oxygen Flow Rate 3 10/12/24 14:27 Temperature 97.6 F 10/12/24 17:23 Pulse Rate 65 10/12/24 17:23 Respiratory Rate 20 10/12/24 17:23 Blood Pressure 150/59 H 10/12/24 17:23 Pulse Oximetry 98 10/12/24 17:23 Oxygen Delivery Nasal Cannula 10/12/24 14:27 Oxygen Flow Rate 3 10/12/24 14:27 Medical Decision Making Vital Signs Vital Signs: Vital Signs Temperature 98.3 F 10/12/24 14:27 Pulse Rate 76 10/12/24 14:27 Respiratory Rate 20 10/12/24 14:27 Blood Pressure 159/48 H 10/12/24 14:27 Pulse Oximetry 97 10/12/24 14:27 Oxygen Delivery Nasal Cannula 10/12/24 14:27 Oxygen Flow Rate 3 10/12/24 14:27 Temperature 97.6 F 10/12/24 17:23 Pulse Rate 65 10/12/24 17:23 Respiratory Rate 20 10/12/24 17:23 Blood Pressure 150/59 H 10/12/24 17:23 Pulse Oximetry 98 10/12/24 17:23 Oxygen Delivery Nasal Cannula 10/12/24 14:27 Oxygen Flow Rate 3 10/12/24 14:27 Lab Data 10/12/24 15:31 10/12/24 15:31 Labs: Lab Results 10/12/24 Range/Units 15:31 WBC 14.8 H (4.5-10.0) K/mm3 RBC 2.24 L (4.6-6.20) M/mm3 Hgb 6.5 L* (14.0-18.0) g/dL Hct 22.8 L (42.0-52.0) % MCV 101.8 H (80-100) fl MCH 29.0 (26-34) pg MCHC 28.5 L (32-36) g/dl RDW 14.0 (11.5-14.5) % Plt Count 259 (150-375) k/mm3 MPV 9.8 (7.4-10.4) fl Immature Gran % (Auto) 0.7 H (0-0.5) % Neut % (Auto) 85.6 H (45.5-73.1) % Lymph % (Auto) 5.4 L (18.3-44.2) % [place] % (Auto) 6.2 (2.6-8.5) % Eos % (Auto) 1.8 (0-4.4) % Baso % (Auto) 0.3 (0.2-1.2) % Lymph # (Auto) 0.79 L (0.9-3.2) K/mm3 [place] # (Auto) 0.9 H (0.1-0.6) K/mm3 Eos # (Auto) 0.3 (0-0.3) K/mm3 Baso # (Auto) 0.0 (0.0-0.1) K/mm3 Abs Immat Gran (auto) 0.11 H (0.00-0.031) K/mm3 Absolute Neuts (auto) 12.6 H (1.3-6.7) K/mm3 Absolute Nucleated RBC 0.000 (0.0-0.012) K/mm3 Nucleated RBC % 0.0 (0.0-0.2) % Platelet Estimate Adequate (Adequate) Hypochromasia 1+ Schistocytes None seen Sodium 138 (137-145) mmol/L Potassium 5.2 H (3.4-5.0) mmol/L Chloride 108 H (98-107) mmol/L Carbon Dioxide 27 (22-30) mmol/L Anion Gap 3 L (4-12) mmol/L BUN 49 H (9-20) mg/dL Creatinine 3.20 H (0.7-1.3) mg/dL Estim Creat Clear Calc 19 ml/min Estimated GFR 19 L (59 - ) Glucose 123 H (65-110) mg/dL Calcium 7.5 L (8.4-10.2) mg/dL Total Bilirubin 0.6 (0.2-1.3) mg/dL AST 36 (17-59) U/L ALT 18 (6-50) U/L Alkaline Phosphatase 101 (38-126) U/L Total Protein 6.0 L (6.3-8.2) g/dL Albumin 3.0 L (3.5-5.1) g/dL Blood Type O Positive Antibody Screen Negative Crossmatch See Detail Discharge Plan Discharge Clinical Impression: Anemia, Occult blood positive stool Patient Disposition: Still a Patient Condition: Stable Patient Language: Kazakh Prescriptions: No Action acetaminophen 650 mg tablet extended release 650 mg PO Q4H PRN (Reason: PAIN) Atrovent HFA 17 mcg/actuation HFA aerosol inhaler 2 puff inhalation Q4H PRN (Reason: sob) baclofen 5 mg tablet 5 mg PO Q8H PRN (Reason: MUSCLE SPASM) benzonatate 100 mg capsule 100 mg PO TID PRN (Reason: Cough) bisacodyl 10 mg suppository 10 mg RECTAL DAILY PRN (Reason: SEE INSTRUCTIONS) Rx Instructions: FOR CONSTIPATION DAILY IF NO RESULTS FROM MOM cetirizine 10 mg tablet 10 mg PO DAILY cholecalciferol (vitamin D3) 25 mcg (1,000 unit) tablet 25 mcg PO DAILY magnesium citrate [Citroma] Solution 296 ml PO DAILY PRN (Reason: SEE INSTRUCTIONS) Rx Instructions: NEEDED FOR CONSTIPATION - GIVE IN AM IF NO RESULTS AFTER ENEMA .IF NO RESULTS WITHIN 1 HOUR OF COMPLETION CONTACT MD Doty Enema 19-7 gram/118 mL enema 118 ml RECTAL ONCE PRN (Reason: SEE INSTRUCTIONS) Rx Instructions: GIVE FOR CONSTIPATION IF NO RESULTS 1 DAY AFTER SUPPOSITORY ipratropium-albuterol 0.5 mg-3 mg(2.5 mg base)/3 mL solution for nebulization 3 ml inhalation HS magnesium hydroxide 400 mg/5 mL suspension 30 ml PO QHS PRN (Reason: Constipation) Rx Instructions: FOR CONSTIPATION IF NO BM IN 3 DAYS sertraline 50 mg tablet 100 mg PO QHS gabapentin 300 mg capsule 300 mg PO BID cyanocobalamin (vitamin B-12) 500 mcg tablet 250 mcg PO DAILY Rx Instructions: take 750mcg daily hydrocortisone [Cortisone (hydrocortisone)] 1 % cream 1 applic topical .Q 8HR PRN (Reason: FOR ITCHING) ascorbic acid (vitamin C) 500 mg capsule 500 mg PO QAM ferrous sulfate 325 mg (65 mg iron) tablet 325 mg PO DAILY prednisone 2.5 mg tablet 2.5 mg PO DAILY Atrovent HFA 17 mcg/actuation Hfa Aerosol Inhaler 2 puff INHALATION TID Minerin Creme Cream 1 applic TOPICAL QSHIFT Eliquis 2.5 mg Tablet 2.5 mg PO BID Trelegy Ellipta 100-62.5-25 mcg Blister With Device 1 inh INHALATION DAILY simvastatin 10 mg tablet 10 mg PO HS aspirin 81 mg tablet,delayed release (DR/EC) 325 mg PO QAM Lokelma 10 gram Powder In Packet 10 g PO BID 14 Days Qty: 30 0RF folic acid 1 mg tablet 1 mg PO DAILY Rx Instructions: TAKE 1 TABLET BY MOUTH DAILY guaifenesin 600 mg Tablet Extended Release 12hr 600 mg PO Q12H ipratropium-albuterol 0.5 mg-3 mg(2.5 mg base)/3 mL Solution For Nebulization 3 ml INHALATION Q4H PRN (Reason: SOB) tramadol 50 mg Tablet 50 mg PO Q6H PRN (Reason: Pain (Scale Score 7-10)) Qty: 1 0RF sodium bicarbonate 650 mg Tablet 1,300 mg PO TID Qty: 90 0RF amlodipine 10 mg tablet 10 mg PO DAILY Qty: 90 1RF trazodone 50 mg tablet 50 mg PO QHS Qty: 30 0RF multivitamin Tablet 1 tablet PO DAILY Qty: 90 1RF Follow-up/Referrals: Master Colbert MD [Primary Care Provider] -
[2024-10-12 15:41] LABS: Hemoglobin 6.5 g/dL (14.0-18.0)
[2024-10-12 15:47] LABS: Alanine Aminotransferase 18 U/L (6-50); Alkaline Phosphatase 101 U/L (38-126); Anion Gap 3 mmol/L (4-12); Aspartate Amino Transferase 36 U/L (17-59); Bilirubin,Total 0.6 mg/dL (0.2-1.3); Blood Urea Nitrogen 49 mg/dL (9-20); Calcium 7.5 mg/dL (8.4-10.2); Carbon Dioxide 27 mmol/L (22-30); Chloride 108 mmol/L (98-107); Estimated CRCL calculation 19 ml/min; Estimated Glomerular Filt Rate 19; Glucose 123 mg/dL (65-110); Potassium 5.2 mmol/L (3.4-5.0); Sodium 138 mmol/L (137-145)
[2024-10-12 16:03] LABS: Hypochromasia 1+; Platelet Estimate Adequate (Adequate); Schistocytes None Seen
[2024-10-12] MEDS: SODIUM CHLORIDE 0.9% IV 250 ML 30 ML IV CONT (17:11)
[2024-10-12] MEDS: TUBING, BLOOD PLUM PUMP TUBING 1 EACH XX (17:11)
--- NOTE | 2024-10-12 19:10 | PM.IMHP ---
H&P: HPI History of Present Illness Date/Time: 10/12/24 19:10 Chief Complaint: Low hemoglobin. Narrative: This is a pleasant 78-year-old male with multiple medical problems including chronic hypoxic respiratory failure on oxygen, chronic obstructive pulmonary disease, atrial fibrillation, type 2 diabetes mellitus, chronic kidney disease stage 4, hypertension, diastolic dysfunction, history of alcohol abuse who presented to the emergency department via EMS from [facility] for evaluation after he was found to have a low hemoglobin. The patient provides the following history. Patient believes the labs that were drawn today were routine and he does not think there were any specific reasons for the labs. He tells me he has been feeling just fine though he does mention falling while getting out of bed several days ago and he has had pain in his left-sided ribs since that time. He has a history of anemia but has never had a blood transfusion. He is on apixaban and has not noticed any bleeding or bruising and he specifically denies epistaxis, hemoptysis, hematemesis, melena, hematochezia, and hematuria. He also denies fever, chills, sweats, recent cold and flu symptoms, chest pain, epigastric pain, abdominal pain, bloating, belching, cough, and shortness of breath. In the ED: He was afebrile on arrival with stable vital signs. Labs are significant for WBC count of 14.8, hemoglobin 6.5, hematocrit 22.8%, MCV 101.8, platelet 259, potassium 5.2, BUN 49, creatinine 3.20, glucose 123, total protein 6.0, albumin 3.0. Chest and rib x-ray showed mildly displaced fractures of the posterior left 10th and 11th ribs, small left pleural effusion, and retrocardiac atelectasis versus pneumonia. According to the ED physician, his stool was Hemoccult positive. He is being admitted in this setting for further evaluation and blood transfusion. Review of Systems Review of Systems: 12 systems were reviewed and are negative except for as per HPI. [facility] Past Medical History Medical History Diabetic retinopathy Dilated eye exam December 2023 demonstrating mild bilateral disease CKD (chronic kidney disease) stage 4, GFR 15-29 ml/min COVID-19 Metabolic acidosis Alcohol abuse Acute hyperkalemia Acute kidney injury Hypoxia Acidosis Abrasion of left leg Pulmonary hypertension Echocardiogram on 06/08/2021 showed normal left ventricular systolic function with an EF estimated 65 to 70%, mildly increased LV wall thickness, severely enlarged right atrial chamber, mildly enlarged left atrial chamber, mild mitral valve and trace tricuspid valve regurgitation, and mild pulmonary hypertension with an estimated pulmonary arterial systolic pressure of 35 mmHg. Diabetic foot ulcer Acute and chronic respiratory failure Pancreatitis (03/2021) MRSA (methicillin resistant Staphylococcus aureus) septicemia (09/2020) Alcohol abuse Chronic anemia Ichthyosis vulgaris Osteoarthritis Former smoker Irritable bowel syndrome Chronic respiratory failure with hypoxia, on home O2 therapy Gastroesophageal reflux disease Benign prostatic hyperplasia Type 2 diabetes mellitus Hemoglobin A1c was 6.6% on 06/09/2021. Chronic obstructive pulmonary disease Severe obstructive disease without bronchodilator relief noted on PFTs September 2019 Hypertension Diastolic congestive heart failure Echocardiogram 2020 EF 65-70, mildly increased left ventricular wall thickness, severe right atrial enlargement, mild left atrial enlargement, mild pulmonary hypertension with RVSP of 35, indeterminate diastolic function due to AFib Persistent atrial fibrillation Diabetic peripheral neuropathy Hearing loss Cerebrovascular accident Foot osteomyelitis, left Wound, open, foot Diabetic foot infection (Unknown) Severe sepsis Anxiety Depression Sacrum and coccyx fracture Osteomyelitis History of osteomyelitis of both feet requiring multiple amputations. 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 History of total right hip arthroplasty (2002) History of ventral hernia repair (2006) History of tonsillectomy History of bilateral cataract extraction Family History Family History Mother Patient's mother is , Onset Age: 31 Father Suicide Social History Social History Social History: Surrogate medical decision maker: Annetta Jean Baptiste, daughter Code status: Full code. Smoking packs per day: 1 Smoking cigarettes per day: 20.0 Years smoked: 58 Smoking pack-years: 58.00 Smoking status: Current some day smoker Second hand tobacco smoke exposure: No Alcohol intake: former Substance use: never Substance use type: does not use Do You Feel Safe in your Home?: Yes Lack of Transportation: No Lack of Food: Never True Current Housing: I Have Housing Concerned About Future Housing: No Difficulty Paying Gas/Electric Bills: No Difficulty Paying for Meds: No Currently Unemployed: No Education: Grade School Difficulty w/ Childcare or Family Care: No Living arrangements: snf Additional living arrangements comments: . He has 7 children. 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 Spiritual care concerns: No Meds Home Medications and Allergies Home Medications ?Medication ?Instructions ?Recorded ?Confirmed ?Type folic acid 1 mg tablet 1 mg PO DAILY 12/02/20 10/12/24 History amlodipine 10 mg tablet 10 mg PO DAILY #90 tabs 12/04/21 10/12/24 Rx multivitamin 1 tablet PO DAILY #90 tabs 05/07/22 10/12/24 Rx acetaminophen 650 mg 650 mg PO Q4H PRN PAIN 09/30/23 10/12/24 History tablet,extended release baclofen 5 mg tablet 5 mg PO Q8H PRN MUSCLE SPASM 09/30/23 10/12/24 History benzonatate 100 mg capsule 100 mg PO TID PRN Cough 09/30/23 10/12/24 History bisacodyl 10 mg rectal suppository 10 mg RECTAL DAILY PRN SEE 09/30/23 10/12/24 History INSTRUCTIONS cetirizine 10 mg tablet 10 mg PO DAILY 09/30/23 10/12/24 History cholecalciferol (vitamin D3) 25 25 mcg PO DAILY 09/30/23 10/12/24 History mcg (1,000 unit) tablet ipratropium 0.5 mg-albuterol 3 mg 3 ml inhalation Q4H PRN shortness 09/30/23 10/12/24 History (2.5 mg base)/3 mL nebulization of breath or wheezing soln ipratropium bromide 17 2 puff inhalation Q4H PRN sob 09/30/23 10/12/24 History mcg/actuation HFA aerosol inhaler (Atrovent HFA) magnesium citrate (Citroma oral 296 ml PO DAILY PRN SEE 09/30/23 10/12/24 History solution) INSTRUCTIONS magnesium hydroxide 400 mg/5 mL 30 ml PO QHS PRN Constipation 09/30/23 10/12/24 History oral suspension sertraline 50 mg tablet 100 mg PO QHS 09/30/23 10/12/24 History sodium phosphates 19 gram-7 118 ml RECTAL ONCE PRN SEE 09/30/23 10/12/24 History gram/118 mL enema (Fleet Enema) INSTRUCTIONS guaifenesin 600 mg tablet, 600 mg PO Q12H 05/25/24 10/12/24 History extended release 12 hr ipratropium 0.5 mg-albuterol 3 mg 3 ml inhalation Q4H PRN SOB 05/25/24 10/12/24 History (2.5 mg base)/3 mL nebulization soln sodium bicarbonate 650 mg tablet 1,300 mg (2 x 650 mg) PO TID #90 05/28/24 10/12/24 Rx tabs tramadol 50 mg tablet 50 mg PO Q6H PRN chronic pain #1 05/28/24 10/12/24 Rx tablet ascorbic acid (vitamin C) 500 mg 500 mg PO BID 07/23/24 10/12/24 History capsule cyanocobalamin (vitamin B-12) 500 1,000 mcg PO DAILY 07/23/24 10/12/24 History mcg tablet ferrous sulfate 325 mg (65 mg 325 mg PO DAILY 07/23/24 10/12/24 History iron) tablet gabapentin 300 mg capsule 300 mg PO BID 07/23/24 10/12/24 History hydrocortisone 1 % topical cream 1 applic topical .Q 8HR PRN FOR 07/23/24 10/12/24 History (Cortisone (hydrocortisone)) ITCHING apixaban 2.5 mg tablet (Eliquis) 2.5 mg PO BID 07/27/24 10/12/24 History aspirin 81 mg tablet,delayed 325 mg PO QAM 07/27/24 10/12/24 History release fluticasone fur. 100 mcg-umeclid 1 inh inhalation DAILY 07/27/24 10/12/24 History 62.5 mcg-vilant 25 mcg inhalat.powder (Trelegy Ellipta) ipratropium bromide 17 2 puff inhalation TID 07/27/24 10/12/24 History mcg/actuation HFA aerosol inhaler (Atrovent HFA) lanolin alcohols-mineral 1 applic topical QSHIFT 07/27/24 10/12/24 History oil-w.petrolatum-ceresin topical cream (Minerin Creme topical) prednisone 2.5 mg tablet 2.5 mg PO DAILY 07/27/24 10/12/24 History simvastatin 10 mg tablet 10 mg PO HS 07/27/24 10/12/24 History sodium zirconium cyclosilicate 10 10 g PO BID 14 days #30 ea 07/31/24 10/12/24 Rx gram oral powder packet (Lokelma) Saccharomyces boulardii 250 mg 250 mg PO BID 10/12/24 10/12/24 History capsule (Daily Probiotic (S. boulardii)) amoxicillin 500 mg-potassium 1 tablet PO Q12H 10/12/24 10/12/24 History clavulanate 125 mg tablet aspirin 325 mg capsule 325 mg PO DAILY 10/12/24 10/12/24 History diclofenac sodium 1 % topical gel 2 g topical TID 10/12/24 10/12/24 History (Arthritis Pain (diclofenac)) epoetin rosalie 10,000 unit/mL 10,000 unit subcut .MWF anemia 10/12/24 10/12/24 History injection solution (Procrit) hydralazine 25 mg tablet 25 mg PO TID 10/12/24 10/12/24 History hydroxyzine pamoate 25 mg capsule 25 mg PO Q12H PRN anxiety 10/12/24 10/12/24 History lanolin alcohols-mineral 1 applic topical BID 10/12/24 10/12/24 History oil-w.petrolatum-ceresin topical cream (Minerin Creme topical) multivitamin (Daily Multi-Vitamin 1 tablet PO DAILY 10/12/24 10/12/24 History tablet) nicotine 21 mg/24 hr daily 1 patch transdermal DAILY 10/12/24 10/12/24 History transdermal patch (Nicoderm CQ) pantoprazole 40 mg tablet,delayed 40 mg PO Q12H 10/12/24 10/12/24 History release prednisone 5 mg tablet 5 mg PO DAILY 10/12/24 10/12/24 History sodium phosphates 19 gram-7 118 ml RECTAL ONCE 10/12/24 10/12/24 History gram/118 mL enema (Fleet Enema) torsemide 10 mg tablet 5 mg PO QAM 10/12/24 10/12/24 History trazodone 50 mg tablet 75 mg PO QHS 10/12/24 10/12/24 History Allergies Allergy/AdvReac Type Severity Reaction Status Date / Time niacin Allergy Intermediate Rash/itchin Verified 10/12/24 19:31 g hydrocodone (From [place]) AdvReac Confusion Verified 10/12/24 19:31 Vital Signs Vital Signs - 24 hr 10/12/24 14:27 10/12/24 16:32 10/12/24 17:01 Temperature 98.3 F 97.7 F Pulse Rate 76 75 66 Respiratory Rate 20 18 19 Blood Pressure 159/48 H 148/60 H 159/60 H Pulse Oximetry 97 95 97 Oxygen Delivery Nasal Cannula Oxygen Flow Rate 3 10/12/24 17:15 10/12/24 17:23 10/12/24 18:23 Temperature 97.7 F 97.6 F 97.9 F Pulse Rate 66 65 77 Respiratory Rate 15 20 22 H Blood Pressure 151/66 H 150/59 H 150/95 H Pulse Oximetry 100 98 98 Oxygen Delivery Oxygen Flow Rate Exam Narrative: General: Chronically ill-appearing male in the semi-Moreno position in bed. Weight: 77.2 kg. BMI: 23.1. HEENT: PERRL, EOMI. Sclerae anicteric. Edentulous. Tacky mucous membranes. Neck: Supple. No JVD or lymphadenopathy. Respiratory: Respirations are nonlabored and he is speaking in full sentences. Lung sounds are diminished throughout with scattered wheezing. Cardiovascular: Irregularly irregular rate and rhythm. Chest: He has tenderness to palpation over the left lower ribs. Gastrointestinal: Abdomen is soft, nontender, and nondistended with positive bowel sounds. Skin: Warm and dry. Status post left [id number] amputation wearing a prosthetic. Extremities: No cyanosis, clubbing, or right lower extremity edema. Extremities are warm and perfused. Neurological: Alert and oriented. Cranial nerves 2-12 are grossly intact. No gross focal deficits to casual conversation. Psychiatric: Cooperative with appropriate mood and affect. H&P: Results Labs Labs: Short CBC 10/12/24 Range/Units 15:31 WBC 14.8 H (4.5-10.0) K/mm3 Hgb 6.5 L* (14.0-18.0) g/dL Hct 22.8 L (42.0-52.0) % Plt Count 259 (150-375) k/mm3 BMP 10/12/24 15:31 Sodium 138 Potassium 5.2 H Chloride 108 H Carbon Dioxide 27 BUN 49 H Creatinine 3.20 H Glucose 123 H Calcium 7.5 L Liver Function 10/12/24 Range/Units 15:31 Total Bilirubin 0.6 (0.2-1.3) mg/dL AST 36 (17-59) U/L ALT 18 (6-50) U/L Alkaline Phosphatase 101 (38-126) U/L Albumin 3.0 L (3.5-5.1) g/dL Impressions Ribs w/Chest X-Ray 10/12/24 16:10 IMPRESSION: 1. Mildly displaced fractures of the posterior left 10th and 11th ribs. 2. Small left pleural effusion with retrocardiac atelectasis versus pneumonia. No pneumothorax. Assessment and Plan Assessment and plan (1) Profound anemia: Code(s): D64.9 - Anemia, unspecified Status: Acute (2) Occult blood positive stool: Code(s): R19.5 - Other fecal abnormalities Status: Acute (3) Left rib fracture: Code(s): S22.32XA - Fracture of one rib, left side, initial encounter for closed fracture Status: Acute (4) Hyperkalemia: Code(s): E87.5 - Hyperkalemia Status: Resolved (5) Chronic kidney disease, stage IV (severe): Code(s): N18.4 - Chronic kidney disease, stage 4 (severe) Status: Chronic (6) Chronic obstructive pulmonary disease: Code(s): J44.9 - Chronic obstructive pulmonary disease, unspecified Status: Chronic (7) Hypertension: Code(s): I10 - Essential (primary) hypertension Status: Chronic (8) Type 2 diabetes mellitus: Qualifiers: Diabetes mellitus ad terminal makeup operator insulin use: without ad terminal makeup operator use Diabetes mellitus complication detail: with foot ulcer Code(s): E11.9 - Type 2 diabetes mellitus without complications Status: Chronic Plan The patient presented to the emergency department for evaluation after he was found to have a low hemoglobin on routine labs as detailed in HPI. Labs, imaging, EKG, and all reports were personally reviewed. He will be transfused to a stable hemoglobin. He had labs done in July for evaluation of anemia which likely do not need to be repeated. Concerns are for ongoing, occult GI loss as his stool is Hemoccult positive and he is on apixaban for stroke prophylaxis due to persistent atrial fibrillation. He is already receiving erythropoietin 3 times a week according to his medication reconciliation list. Dr. Chicas was consulted by the ED physician and his input is appreciated. Hold NSAIDs and apixaban. Potassium is a bit elevated which is a frequent problem for this patient. He did not receive any treatment for this in the emergency department and a repeat level is currently pending. Renal function is stable on review of previous labs. Vital signs were reviewed and they are stable. He has chronic wheezing which is unchanged; continue maintenance inhalers. Initiate sliding scale insulin, Accu-Cheks, and hypoglycemic protocol. Analgesics available as needed for rib pain. Encourage incentive spirometry. His home medications will be reviewed and resumed as appropriate. Findings and treatment plan were discussed with the patient. Questions were solicited and answered to satisfaction. The patient's medical management will be taken over by the hospitalist team in a.m. Quality VTE Prophylaxis VTE prophylaxis: mechanical ordered If No VTE Prophylaxis Answer both mechanical and pharmacologic: Reason no pharmacologic proph: medical contraindication (profound anemia, heme positive stool) The patient has been admitted under observation status. Hospitalist [facility] Advance Care Plan I have confirmed that the patient's Advanced Care Plan is present, code status is documented, or surrogate decision maker is listed in patient medical record.: Yes Medication Reconciliation I have utilized all available resources to obtain, update and review the patients current medications (includes all prescriptions, OTC, herbals, cannabis, and nutritional supplements).: Yes
--- NOTE | 2024-10-12 19:59 | PC.NURSE ---
Admission complete; med list obtained via transfer list from [facility]. Patient was able to confirm recalled health history. Report to PAUL Miranda.
[2024-10-12] MEDS: SODIUM CHLORIDE 0.9% IV 250 ML 40 ML (21:05)
[2024-10-13 01:40] LABS: Anion Gap -1 mmol/L (4-12); Blood Urea Nitrogen 47 mg/dL (9-20); Calcium 7.8 mg/dL (8.4-10.2); Carbon Dioxide 28 mmol/L (22-30); Chloride 109 mmol/L (98-107); Estimated CRCL calculation 17 ml/min; Estimated Glomerular Filt Rate 18; Glucose 95 mg/dL (65-110); Magnesium 1.9 mg/dL (1.6-2.3); Potassium 4.8 mmol/L (3.4-5.0); Sodium 136 mmol/L (137-145)
[2024-10-13 01:58] LABS: Hematocrit 29.3 % (42.0-52.0); Hemoglobin 9.1 g/dL (14.0-18.0); Mean Corpuscular HGB Conc 31.1 g/dl (32-36); Mean Corpuscular Hemoglobin 29.4 pg (26-34); Mean Corpuscular Volume 94.5 fl (80-100); Mean Platelet Volume 9.7 fl (7.4-10.4); Platelet Count Result 241 k/mm3 (150-375); Red Cell Distribution Width 16.2 % (11.5-14.5); White Blood Count 13.9 K/mm3 (4.5-10.0)
[2024-10-13 06:00] VITALS: BP 178/66; PULSE 72; RESP 20; TEMP 36.8; O2SAT 97
[2024-10-13 07:39] LABS: Glucose Point of Care 87 mg/dl (65-105)
--- NOTE | 2024-10-13 08:28 | P.CONGI_ITS ---
<Statement entered by Aly Brown MD - 10/13/24 14:31> I, Aly Brown MD, have provided a substantive portion of the care of this patient and discussed the patient with my Nurse Practitioner. I have reviewed any new relevant radiographic and laboratory results including medications. I agree with her documentation as noted below.?I personally performed the medical decision making and much of the history and exam for this encounter. briefly, he has multiple medical problems including chronic respiratory failure on home oxygen, ckd stage 4, use of eliquis, chronic anemia with hgb 8 but never had scopes. Here with symptomatic anemia and getting blood transfusion, denies overt gib but occult blood stool positive. Anemia probably is multifactorial but will do egd and colonoscopy tomorrow to assess if gi source. Assessment and Plan Assessment and plan (1) Occult blood positive stool: Code(s): R19.5 - Other fecal abnormalities Status: Acute (2) Anemia of chronic disease: Code(s): D63.8 - Anemia in other chronic diseases classified elsewhere Status: Acute Plan 1. Anemia of chronic disease/heme positive stools: Patient has never had an EGD or colonoscopy. Family medical Hx unknown. Chronic anemia with likely multifactorial etiology given CKD stage IV and multiple other morbidities. He has been anemic since at least 2019 but since May of this year his H/H has been trending down. Patient on Eliquis and ASA 325 prior to admission. He has been getting erythropoietin 3 times weekly and oral iron supplement. Admits to recent fall resulting in right rib fractures. On admission patient showed to have anemia with Hgb 6.5. After 2 units PRBC's labs today show WBC is 14, HGB 9, HCT 29, MCV 95, platelets 241. Patient denies any signs of active GI bleeding but states that he was told he had black stool on rectal exam previously. No recent abdominal imaging available. Anemia workup performed in July was normal except low TIBC: total iron 64, TIBC 255, iron saturation 25%, GERD for polio and 7.7 and ferritin 56.50. DDX: peptic ulcer disease versus AVM versus neoplasm, likely anemia of chronic disease but acute on chronic GI bleed cannot be excluded given that he has never had endoscopic evaluation. * elevated WBC's likely related to chronic daily steroid use as there are no indications of infection * Since patient has already eaten today we will place to start bowel prep this evening and do a colonoscopy and EGD tomorrow * Continue to hold anticoagulants * clear liquid diet today * NPO after midnight * start bowel prep this evening * continue PPI * further recs to follow endoscopy The patients follow up office visit will be determined at time of endoscopy. This report may have been done utilizing a voice recognition system. Attempts have been made to correct errors. However, there may be uncorrected grammatical, spelling, and recognition errors present. GI Consult Note Consult date/time: 10/13/24 08:28 Reason for consult: Anemia HPI: This is a 78 year old male with PMSH pulmonary hypertension, GERD, BPH, depression, anxiety, HLD, ventral hernia repair, COPD, HTN, diastolic dysfunction, left lower leg amputation, AFib, chronic kidney disease stage 4, chronic hypoxic respiratory failure, and history of ETOH abuse. He presented to the emergency room yesterday via EMS after outpatient labs showed profound anemia , labs on arrival showed HGB at 6.5 and HCT 23. GI has been consulted for anemia and heme-positive stools. Patient has received 2 units of PRBCs and hemoglobin now at 9. Patient with known severe chronic kidney disease who is receiving erythropoietin 3 times weekly. Patient is on aspirin 325 mg and Eliquis daily for A-Fib. Patient had previously been taken off Eliquis for a few years due to multiple recent falls but given that the patient is now more wheelchair bound, anticoagulation was restarted. Patient complaints of left flank pain related to recent fall. Admits to occasional constipation and states that he was recently given a suppository at the [facility] to help him have a BM, which he states worked. Denies any other GI complaints. Denies abdominal pain, nausea, vomiting, bloating, odynophagia, dysphagia, reflux, regurgitation, appetite loss, or weight loss. Denies diarrhea, hematochezia, melena, fecal incontinence, or rectal pain. Hx of ETOH abuse but currently denies any alcohol, tobacco or marijuana use. Family Medical Hx unknown. ENDOSCOPY HISTORY: Patient has never had an EGD or colonoscopy LABS AND STOOL STUDIES: Labs 10/12/2024: Sodium 136, potassium 4.8, BUN 47, creatinine 3.30, GFR 18%. WBC is 14, HGB 9, HCT 29, MCV 95, platelets 241. Total bilirubin 0.6, AST 36, ALT 18, alkaline phosphatase 101, albumin 3.0, calcium 7.8, magnesium 1.9. IMAGING: Chest Xray 07/27/2024 IMPRESSION: No acute cardiopulmonary process. Modified Barium Swallow 03/23/2022 IMPRESSION: 1. Laryngeal penetration and aspiration. 2. Please refer to the speech therapy report for recommendations. Review of Systems 2 Constitutional: Constitutional: Reports as per HPI ENT: Reports as per HPI Cardiovascular: Cardiovascular: Reports as per HPI, Denies chest pain and Reports dyspnea (at rest and with activity. On O2) Respiratory: Respiratory: Reports cough, Reports dyspnea and Reports dyspnea on exertion Gastrointestinal: Gastrointestinal: Reports as per HPI and Reports constipation Musculoskeletal: Musculoskeletal: Reports as per HPI Comments: left AKA and toes missing on right foot Integumentary/Breasts: Skin/Breast: Reports as per HPI, Reports dry skin and Reports unusual bruising Psychiatric: Psychiatric: Reports as per HPI Endocrine: Endocrine: Reports no additional endocrine complaints Hematologic/Lymphatic: Hematologic/Lymphatic: Reports no additional hematologic/lymphatic complaints [facility] Past Medical History Medical History Diabetic retinopathy Dilated eye exam December 2023 demonstrating mild bilateral disease CKD (chronic kidney disease) stage 4, GFR 15-29 ml/min COVID-19 Metabolic acidosis Alcohol abuse Acute hyperkalemia Acute kidney injury Hypoxia Acidosis Abrasion of left leg Pulmonary hypertension Echocardiogram on 06/08/2021 showed normal left ventricular systolic function with an EF estimated 65 to 70%, mildly increased LV wall thickness, severely enlarged right atrial chamber, mildly enlarged left atrial chamber, mild mitral valve and trace tricuspid valve regurgitation, and mild pulmonary hypertension with an estimated pulmonary arterial systolic pressure of 35 mmHg. Diabetic foot ulcer Acute and chronic respiratory failure Pancreatitis (03/2021) MRSA (methicillin resistant Staphylococcus aureus) septicemia (09/2020) Alcohol abuse Chronic anemia Ichthyosis vulgaris Osteoarthritis Former smoker Irritable bowel syndrome Chronic respiratory failure with hypoxia, on home O2 therapy Gastroesophageal reflux disease Benign prostatic hyperplasia Type 2 diabetes mellitus Hemoglobin A1c was 6.6% on 06/09/2021. Chronic obstructive pulmonary disease Severe obstructive disease without bronchodilator relief noted on PFTs September 2019 Hypertension Diastolic congestive heart failure Echocardiogram 2020 EF 65-70, mildly increased left ventricular wall thickness, severe right atrial enlargement, mild left atrial enlargement, mild pulmonary hypertension with RVSP of 35, indeterminate diastolic function due to AFib Persistent atrial fibrillation Diabetic peripheral neuropathy Hearing loss Cerebrovascular accident Foot osteomyelitis, left Wound, open, foot Diabetic foot infection (Unknown) Severe sepsis Anxiety Depression Sacrum and coccyx fracture Osteomyelitis History of osteomyelitis of both feet requiring multiple amputations. 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 History of total right hip arthroplasty (2002) History of ventral hernia repair (2006) History of tonsillectomy History of bilateral cataract extraction Family History Family History Mother Patient's mother is , Onset Age: 31 Father Suicide Social History Social History Social History: Surrogate medical decision maker: Annetta Jean Baptiste, daughter Code status: Full code. Smoking packs per day: 1 Smoking cigarettes per day: 20.0 Years smoked: 58 Smoking pack-years: 58.00 Smoking status: Current some day smoker Second hand tobacco smoke exposure: No Alcohol intake: former Substance use: never Substance use type: does not use Do You Feel Safe in your Home?: Yes Lack of Transportation: No Lack of Food: Never True Current Housing: I Have Housing Concerned About Future Housing: No Difficulty Paying Gas/Electric Bills: No Difficulty Paying for Meds: No Currently Unemployed: No Education: Grade School Difficulty w/ Childcare or Family Care: No Living arrangements: [facility] Additional living arrangements comments: . He has 7 children. 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 Spiritual care concerns: No Meds Home Medications and Allergies Home Medications ?Medication ?Instructions ?Recorded ?Confirmed ?Type folic acid 1 mg tablet 1 mg PO DAILY 12/02/20 10/12/24 History amlodipine 10 mg tablet 10 mg PO DAILY #90 tabs 12/04/21 10/12/24 Rx multivitamin 1 tablet PO DAILY #90 tabs 05/07/22 10/12/24 Rx acetaminophen 650 mg 650 mg PO Q4H PRN PAIN 09/30/23 10/12/24 History tablet,extended release baclofen 5 mg tablet 5 mg PO Q8H PRN MUSCLE SPASM 09/30/23 10/12/24 History benzonatate 100 mg capsule 100 mg PO TID PRN Cough 09/30/23 10/12/24 History bisacodyl 10 mg rectal suppository 10 mg RECTAL DAILY PRN SEE 09/30/23 10/12/24 History INSTRUCTIONS cetirizine 10 mg tablet 10 mg PO DAILY 09/30/23 10/12/24 History cholecalciferol (vitamin D3) 25 25 mcg PO DAILY 09/30/23 10/12/24 History mcg (1,000 unit) tablet ipratropium 0.5 mg-albuterol 3 mg 3 ml inhalation Q4H PRN shortness 09/30/23 10/12/24 History (2.5 mg base)/3 mL nebulization of breath or wheezing soln ipratropium bromide 17 2 puff inhalation Q4H PRN sob 09/30/23 10/12/24 History mcg/actuation HFA aerosol inhaler (Atrovent HFA) magnesium citrate (Citroma oral 296 ml PO DAILY PRN SEE 09/30/23 10/12/24 History solution) INSTRUCTIONS magnesium hydroxide 400 mg/5 mL 30 ml PO QHS PRN Constipation 09/30/23 10/12/24 History oral suspension sertraline 50 mg tablet 100 mg PO QHS 09/30/23 10/12/24 History sodium phosphates 19 gram-7 118 ml RECTAL ONCE PRN SEE 09/30/23 10/12/24 History gram/118 mL enema (Fleet Enema) INSTRUCTIONS guaifenesin 600 mg tablet, 600 mg PO Q12H 05/25/24 10/12/24 History extended release 12 hr ipratropium 0.5 mg-albuterol 3 mg 3 ml inhalation Q4H PRN SOB 05/25/24 10/12/24 History (2.5 mg base)/3 mL nebulization soln sodium bicarbonate 650 mg tablet 1,300 mg (2 x 650 mg) PO TID #90 05/28/24 10/12/24 Rx tabs tramadol 50 mg tablet 50 mg PO Q6H PRN chronic pain #1 05/28/24 10/12/24 Rx tablet ascorbic acid (vitamin C) 500 mg 500 mg PO BID 07/23/24 10/12/24 History capsule cyanocobalamin (vitamin B-12) 500 1,000 mcg PO DAILY 07/23/24 10/12/24 History mcg tablet ferrous sulfate 325 mg (65 mg 325 mg PO DAILY 07/23/24 10/12/24 History iron) tablet gabapentin 300 mg capsule 300 mg PO BID 07/23/24 10/12/24 History hydrocortisone 1 % topical cream 1 applic topical .Q 8HR PRN FOR 07/23/24 10/12/24 History (Cortisone (hydrocortisone)) ITCHING apixaban 2.5 mg tablet (Eliquis) 2.5 mg PO BID 07/27/24 10/12/24 History aspirin 81 mg tablet,delayed 325 mg PO QAM 07/27/24 10/12/24 History release fluticasone fur. 100 mcg-umeclid 1 inh inhalation DAILY 07/27/24 10/12/24 History 62.5 mcg-vilant 25 mcg inhalat.powder (Trelegy Ellipta) ipratropium bromide 17 2 puff inhalation TID 07/27/24 10/12/24 History mcg/actuation HFA aerosol inhaler (Atrovent HFA) lanolin alcohols-mineral 1 applic topical QSHIFT 07/27/24 10/12/24 History oil-w.petrolatum-ceresin topical cream (Minerin Creme topical) prednisone 2.5 mg tablet 2.5 mg PO DAILY 07/27/24 10/12/24 History simvastatin 10 mg tablet 10 mg PO HS 07/27/24 10/12/24 History sodium zirconium cyclosilicate 10 10 g PO BID 14 days #30 ea 07/31/24 10/12/24 Rx gram oral powder packet (Lokelma) Saccharomyces boulardii 250 mg 250 mg PO BID 10/12/24 10/12/24 History capsule (Daily Probiotic (S. boulardii)) amoxicillin 500 mg-potassium 1 tablet PO Q12H 10/12/24 10/12/24 History clavulanate 125 mg tablet aspirin 325 mg capsule 325 mg PO DAILY 10/12/24 10/12/24 History diclofenac sodium 1 % topical gel 2 g topical TID 10/12/24 10/12/24 History (Arthritis Pain (diclofenac)) epoetin rosalie 10,000 unit/mL 10,000 unit subcut .MWF anemia 10/12/24 10/12/24 History injection solution (Procrit) hydralazine 25 mg tablet 25 mg PO TID 10/12/24 10/12/24 History hydroxyzine pamoate 25 mg capsule 25 mg PO Q12H PRN anxiety 10/12/24 10/12/24 History lanolin alcohols-mineral 1 applic topical BID 10/12/24 10/12/24 History oil-w.petrolatum-ceresin topical cream (Minerin Creme topical) multivitamin (Daily Multi-Vitamin 1 tablet PO DAILY 10/12/24 10/12/24 History tablet) nicotine 21 mg/24 hr daily 1 patch transdermal DAILY 10/12/24 10/12/24 History transdermal patch (Nicoderm CQ) pantoprazole 40 mg tablet,delayed 40 mg PO Q12H 10/12/24 10/12/24 History release prednisone 5 mg tablet 5 mg PO DAILY 10/12/24 10/12/24 History sodium phosphates 19 gram-7 118 ml RECTAL ONCE 10/12/24 10/12/24 History gram/118 mL enema (Fleet Enema) torsemide 10 mg tablet 5 mg PO QAM 10/12/24 10/12/24 History trazodone 50 mg tablet 75 mg PO QHS 10/12/24 10/12/24 History Allergies Allergy/AdvReac Type Severity Reaction Status Date / Time niacin Allergy Intermediate Rash/itchin Verified 10/12/24 19:31 g hydrocodone (From [place]) AdvReac Confusion Verified 10/12/24 19:31 Vital Signs Vital Signs - 24 hr 10/12/24 14:27 10/12/24 16:32 10/12/24 17:01 Temperature 98.3 F 97.7 F Pulse Rate 76 75 66 Respiratory Rate 20 18 19 Blood Pressure 159/48 H 148/60 H 159/60 H Pulse Oximetry 97 95 97 Oxygen Delivery Nasal Cannula Oxygen Flow Rate 3 10/12/24 17:15 10/12/24 17:23 10/12/24 18:23 Temperature 97.7 F 97.6 F 97.9 F Pulse Rate 66 65 77 Respiratory Rate 15 20 22 H Blood Pressure 151/66 H 150/59 H 150/95 H Pulse Oximetry 100 98 98 Oxygen Delivery Oxygen Flow Rate 10/12/24 21:09 10/12/24 21:24 10/12/24 21:24 Temperature 97.5 F L 97.2 F L 97.5 F L Pulse Rate 71 63 72 Respiratory Rate 16 16 20 Blood Pressure 160/51 H 157/53 H 157/53 H Pulse Oximetry 100 100 99 Oxygen Delivery Oxygen Flow Rate 10/12/24 21:38 10/12/24 22:24 10/12/24 23:24 Temperature 97.5 F L 97.5 F L 97.5 F L Pulse Rate 88 78 60 Respiratory Rate 18 20 20 Blood Pressure 160/51 H 152/71 H 168/69 H Pulse Oximetry 100 99 100 Oxygen Delivery Oxygen Flow Rate 10/13/24 06:00 Temperature 98.3 F Pulse Rate 72 Respiratory Rate 20 Blood Pressure 178/66 H Pulse Oximetry 97 Oxygen Delivery Oxygen Flow Rate Exam 2 Const: General: cooperative, comfortable, no acute distress and well developed Orientation/consciousness: oriented to person, oriented to place, oriented to time and patient oriented x3 HENMT: Head: normal to inspection, normocephalic and atraumatic Mouth: Yes Normal oral and palatal mucosa present and Yes moist mucous membranes Eyes: General: appearance normal, both eyes and all related structures C onjunctivae: conjunctivae normal Sclera: sclerae normal Pupils: Equal, round and reactive pupils present Neck: Neck: normal visual inspection Chest: Chest palpation & inspection: normal inspection of the chest Resp: Effort & Inspection: normal respiratory effort and able to speak in complete sentences Other: course lung sounds on O2 per nasal cannula Cardio: Jugular venous distension: no JVD Rate: regular rate Rhythm: a bnormal rhythm Heart sounds: S1 normal heart sound present and S2 normal heart sound present GI: Inspection: normal to inspection GI Palp: Yes Soft to palpation, No Tenderness to palpation present (GI), No Guarding due to palpation present (GI) and Yes No hepatosplenomegaly present Auscultation: normal bowel sounds R ectal Exam: deferred Skin: General skin exam: no rashes or lesions noted Other: very dry and tenting skin with bruising Neuro: General: oriented to person, oriented to place, oriented to time and patient oriented x3 Cranial nerves: Yes Equal, round and reactive pupils present Speech: normal speech Extrem: General: normal to inspection and no clubbing, cyanosis or edema Psych: Appearance: grossly normal and well kempt Affect: normal affect Results Labs 10/13/24 01:12 10/13/24 01:12 Labs: Short CBC 10/12/24 10/13/24 Range/Units 15:31 01:12 WBC 14.8 H 13.9 H (4.5-10.0) K/mm3 Hgb 6.5 L* 9.1 L (14.0-18.0) g/dL Hct 22.8 L 29.3 L (42.0-52.0) % Plt Count 259 241 (150-375) k/mm3 BMP 10/12/24 10/13/24 15:31 01:12 Sodium 138 136 L Potassium 5.2 H 4.8 Chloride 108 H 109 H Carbon Dioxide 27 28 BUN 49 H 47 H Creatinine 3.20 H 3.30 H Glucose 123 H 95 Calcium 7.5 L 7.8 L Liver Function 10/12/24 Range/Units 15:31 Total Bilirubin 0.6 (0.2-1.3) mg/dL AST 36 (17-59) U/L ALT 18 (6-50) U/L Alkaline Phosphatase 101 (38-126) U/L Albumin 3.0 L (3.5-5.1) g/dL
[2024-10-13] MEDS: FLUTICASONE/UMECLIDIN/VILANTER 100-62.5-25 MCG ELLIPTA 1 PUFF INHALATION (08:51)
[2024-10-13 08:52] VITALS: O2SAT 96
[2024-10-13 08:54] VITALS: PULSE 89; RESP 20
[2024-10-13] MEDS: SODIUM BICARBONATE TAB 650 MG TABLET 1300 MG PO ×3 (09:31→17:08)
[2024-10-13] MEDS: MULTIVITAMINS THERAPEUTIC TAB (*BKC) 1 TABLET PO (09:31)
[2024-10-13] MEDS: predniSONE 5 MG TABLET PO (09:31)
[2024-10-13] MEDS: FERROUS SULFATE 325 MG TABLET DR BY MOUTH (09:31)
[2024-10-13] MEDS: PANTOPRAZOLE 40 MG TABLET PO ×2 (09:31→20:54)
[2024-10-13] MEDS: ASCORBIC ACID 500 MG TABLET PO ×2 (09:31→17:08)
[2024-10-13] MEDS: LORATADINE 10 MG TABLET PO (09:32)
[2024-10-13] MEDS: SACCHAROMYCES BOULARDII 250 MG CAPSULE PO ×2 (09:32→17:08)
[2024-10-13] MEDS: hydrALAZINE HCL 25 MG TABLET PO ×3 (09:32→17:08)
[2024-10-13] MEDS: amLODIPine BESYLATE 10 MG TABLET PO (09:32)
[2024-10-13] MEDS: GABAPENTIN 300 MG CAPSULE PO ×2 (09:32→17:08)
[2024-10-13] MEDS: FOLIC ACID 1 MG TABLET PO (09:32)
[2024-10-13] MEDS: NICOTINE (*PBKC) 21 MG PATCH 1 PATCH TRANSDERM (09:53)
[2024-10-13] MEDS: TORSEMIDE 10 MG TABLET 5 MG PO (11:11)
[2024-10-13] MEDS: hydrOXYzine pamoate 25 MG CAPSULE PO (11:12)
[2024-10-13 11:44] VITALS: BMI 22.6
[2024-10-13 11:57] LABS: Glucose Point of Care 150 mg/dl (65-105)
--- NOTE | 2024-10-13 12:14 | P.PNIM_ITS ---
Progress Note: A&P Assessment and Plan (1) Profound anemia: Code(s): D64.9 - Anemia, unspecified Status: Acute Assessment and Plan: * Hemoglobin initially 6.5 * Patient was given 2 units of PRBC in the ED * Hemoglobin now 9.1 * GI was consulted * He is Hemoccult positive * NPO after midnight * Bowel prep ordered for tonight * Plan for EGD and colonoscopy in the morning * Continue ferrous sulfate (2) Occult blood positive stool: Code(s): R19.5 - Other fecal abnormalities Status: Acute Assessment and Plan: See above (3) Left rib fracture: Code(s): S22.32XA - Fracture of one rib, left side, initial encounter for closed fracture Status: Acute Assessment and Plan: * Chest x-ray showed mildly displaced fractures of the posterior left 10th and 11th ribs * Continue pain control (4) Hyperkalemia: Code(s): E87.5 - Hyperkalemia Status: Resolved Assessment and Plan: * Initial potassium 5.2 * Does not appear that he received any treatment for this * Potassium today 4.8 (5) Chronic kidney disease, stage IV (severe): Code(s): N18.4 - Chronic kidney disease, stage 4 (severe) Status: Chronic Assessment and Plan: * Initial creatinine 3.20, EGFR 19--currently at baseline * Baseline creatinine 3.10-3.5, EGFR 18-20 * Avoid nephrotoxic medication and IV contrast * Renally dose medications (6) Chronic obstructive pulmonary disease: Code(s): J44.9 - Chronic obstructive pulmonary disease, unspecified Status: Chronic Assessment and Plan: * DuoNebs ordered p.r.n. (7) Hypertension: Code(s): I10 - Essential (primary) hypertension Status: Chronic Assessment and Plan: * Blood pressures ranging 152/71 to 178/66 * S continue amlodipine and hydralazine (8) Type 2 diabetes mellitus: Qualifiers: Diabetes mellitus complication detail: with foot ulcer Diabetes mellitus jail insulin use: without intermediate teacher use Code(s): E11.9 - Type 2 diabetes mellitus without complications Status: Chronic Assessment and Plan: * Blood sugars ranging 87-150 * Hgb A1C 5.0 on 05/25/2024 * Will repeat hemoglobin A1c today * Accu checks AC/HS * Low-dose SSI ordered * hypoglycemic protocol in place * Diabetic diet ordered * Usually diet controlled at home Time Spent With Patient Time with patient: 25 - 35 minutes Subjective Date/time seen: 10/13/24 12:14 Interval history: Interval history: This is a 78-year-old male who presented to the hospital on 10/12/2024 with abnormal labs. Patient had routine labs drawn and he was noted to have a low hemoglobin. Workup in the hospital included ribs with chest x-ray which showed mildly displaced fractures of the posterior left 10th and 11th ribs, small left pleural effusion with retrocardiac atelectasis versus pneumonia. Initial labs shown a white blood cell count of 14.8, hemoglobin 6.5, potassium 5.2, creatinine 3.20 EGFR 19. His stool was Hemoccult positive. Patient was given 2 units of blood. GI was consulted. Plan is for a colonoscopy and EGD. Subjective: Patient denies any fever, chills, nausea, vomiting, diarrhea, abdominal pain, chest pain. Patient endorses SOB with exertion. Labs and imaging reviewed. Review of Systems Review of Systems: 12 systems were reviewed and are negativ e except for as per HPI. All systems reviewed & are unremarkable except as noted in HPI and below Constitutional: Constitutional: Reports as per HPI and Reports no additional constitutional complaints Eyes: Eyes: Reports as per HPI and Reports no additional eye complaints ENT: Reports system reviewed and no additional complaints, except as documented and Reports as per HPI Cardiovascular: Cardiovascular: Reports as per HPI and Reports no additional cardiovascular complaints Respiratory: Respiratory: Reports as per HPI and Reports no additional respiratory complaints Gastrointestinal: Gastrointestinal: Reports as per HPI and Reports no additional gastrointestinal complaints Genitourinary: Genitourinary: Reports no additional male genitourinary complaints and Reports as per HPI Musculoskeletal: Musculoskeletal: Reports no additional musculoskeletal complaints and Reports as per HPI Integumentary/Breasts: Skin/Breast: Reports system reviewed and no additional complaints, except as docu and Reports as per HPI Neurologic: Reports system reviewed and no additional complaints, except as documented and Reports as per HPI Psychiatric: Psychiatric: Reports no additional psychiatric complaints and Reports as per HPI Exam Narrative: General: In no acute distress, well nourished Head: atraumatic, no encephalopathy Eyes: PERRLA, sclera clear ENT: moist mucous membranes, nasal passages clear Neck: supple, no JVD, no adenopathy, trachea midline Cardiac: Normal S1 and S2. No murmur, gallops or friction rubs, peripheral pulses intact. Respiratory: Lungs course with audible wheezing, no other adventitious lung sounds, currently on 2L NC which is baseline O2 requirements Gastrointestinal: soft, non-distended, non-tender, normoactive bowel sounds. : voiding without difficulty. Extremities: moves all extremities well, no edema Skin:excessively dry Neuro: Alert and oriented x4, cranial nerves intact, no neuro deficits. Psych: normal mood, normal affect, interactive Objective Data Vital Signs Vital Signs: Vital Signs - 24 hr 10/12/24 14:27 10/12/24 16:32 10/12/24 17:01 Temperature 98.3 F 97.7 F Pulse Rate 76 75 66 Respiratory Rate 20 18 19 Blood Pressure 159/48 H 148/60 H 159/60 H Pulse Oximetry 97 95 97 Oxygen Delivery Nasal Cannula Oxygen Flow Rate 3 10/12/24 17:15 10/12/24 17:23 10/12/24 18:23 Temperature 97.7 F 97.6 F 97.9 F Pulse Rate 66 65 77 Respiratory Rate 15 20 22 H Blood Pressure 151/66 H 150/59 H 150/95 H Pulse Oximetry 100 98 98 Oxygen Delivery Oxygen Flow Rate 10/12/24 21:09 10/12/24 21:24 10/12/24 21:24 Temperature 97.5 F L 97.2 F L 97.5 F L Pulse Rate 71 63 72 Respiratory Rate 16 16 20 Blood Pressure 160/51 H 157/53 H 157/53 H Pulse Oximetry 100 100 99 Oxygen Delivery Oxygen Flow Rate 10/12/24 21:38 10/12/24 22:24 10/12/24 23:24 Temperature 97.5 F L 97.5 F L 97.5 F L Pulse Rate 88 78 60 Respiratory Rate 18 20 20 Blood Pressure 160/51 H 152/71 H 168/69 H Pulse Oximetry 100 99 100 Oxygen Delivery Oxygen Flow Rate 10/13/24 06:00 10/13/24 08:52 10/13/24 08:54 Temperature 98.3 F Pulse Rate 72 89 Respiratory Rate 20 20 Blood Pressure 178/66 H Pulse Oximetry 97 96 Oxygen Delivery Nasal Cannula Oxygen Flow Rate 2 Intake/Output Intake/Output: Intake & Output 12/14/24 10/11/24 10/12/24 10/13/24 23:59 23:59 23:59 23:59 Intake Total 700 680 Output Total 2500 Balance 700 -1820 Meds/Results Medications: Active Medications Generic Name Dose Route Start Last Admin Trade Name Freq PRN Reason Stop Dose Admin Acetaminophen 650 mg 10/12/24 23:31 Acetaminophen 325 Mg Tablet PO Q6H PRN Mild Pain (1-3) or Fever Albuterol/Ipratropium 3 ml 10/12/24 23:33 Ipratropium 0.5 Mg/Albuterol Sulfate 2.5 Mg Ampul.Neb 3 Ml INHALATION Q4HRT PRN Shortness Of Breath Amlodipine Besylate 10 mg 10/13/24 09:00 10/13/24 09:32 Amlodipine Besylate 10 Mg Tablet PO 10 mg DAILY KALPESH Administration Ascorbic Acid 500 mg 10/13/24 09:00 10/13/24 09:31 Ascorbic Acid 500 Mg Tablet PO 500 mg BID KALPESH Administration Baclofen 5 mg 10/12/24 23:33 Baclofen 5 Mg Tablet PO Q8H PRN MUSCLE SPASM Bisacodyl 20 mg 10/13/24 16:00 Bisacodyl 5 Mg Tablet Ec PO 10/13/24 16:01 ONCE ONE Dextrose 12.5 gm 10/12/24 23:31 Dextrose 50% 25 Gm/50 Ml Syringe IV PUSH PRN PRN Hypoglycemia Protocol Epoetin Aaron-epbx 10,000 units 10/14/24 09:00 Epoetin Aaron-Epbx 10,000 Units/Ml Vial SUB-Q MoWeFr [facility] Ferrous Sulfate 325 mg 10/13/24 09:00 10/13/24 09:31 Ferrous Sulfate [address] BY MOUTH 325 mg DAILY KALPESH Administration Fluticasone/Umeclidinium/Vilanterol 1 puff 10/13/24 08:00 10/13/24 08:51 Fluticasone/Umeclidin/Vilanter 100-62.5-25 Mcg Ellipta INHALATION 1 puff DAILYRT KALPESH Administration Folic Acid 1 mg 10/13/24 09:00 10/13/24 09:32 Folic Acid 1 Mg Tablet PO 1 mg DAILY KALPESH Administration Gabapentin 300 mg 10/13/24 09:00 10/13/24 09:32 Gabapentin 300 Mg Capsule PO 300 mg BID KALPESH Administration Glucagon 1 mg 10/12/24 23:31 Glucagon For Inj 1 Mg Vial IM PRN PRN Hypoglycemia Protocol Glucose 15 gm 10/12/24 23:31 Glucose Oral Gel 15 Gm Of Glucse In 37.5 Gm Tube PO PRN PRN Hypoglycemia Protocol Hydralazine HCl 25 mg 10/13/24 09:00 10/13/24 09:32 Hydralazine Hcl 25 Mg Tablet PO 25 mg TID KALPESH Administration Hydrocortisone 1 applic 10/12/24 23:33 Hydrocortisone 1% 30 Gm Cream TOPICAL Q8H PRN FOR ITCHING Hydroxyzine Pamoate 25 mg 10/12/24 23:33 10/13/24 11:12 Hydroxyzine Pamoate 25 Mg Capsule PO 25 mg Q12H PRN Administration anxiety Dextrose 1,000 mls @ 100 mls/hr 10/12/24 23:31 Dextrose 5% 1,000 Ml IVPB PRN PRN Hypoglycemia Protocol Insulin Aspart 2 - 5 units 10/13/24 08:00 10/13/24 08:07 Insulin Aspart (*Bkc) 100 Units/Ml SUB-Q Not Given TIDWM KALPESH Protocol Insulin Aspart 1 - 2 units 10/13/24 21:00 Insulin Aspart (*Bkc) 100 Units/Ml SUB-Q HS KALPESH Protocol Loratadine 10 mg 10/13/24 09:00 10/13/24 09:32 Loratadine 10 Mg Tablet PO 10 mg QAM KALPESH Administration Magnesium Citrate 300 ml 10/14/24 02:00 Magnesium Citrate 300 Ml Btl PO 10/14/24 02:01 ONCE ONE Multivitamins Therapeutic 1 tablet 10/13/24 09:00 10/13/24 09:31 Multivitamins Therapeutic Tab (*Bkc) PO 1 tablet DAILY KALPESH Administration Nicotine 1 patch 10/13/24 09:00 10/13/24 09:53 Nicotine (*Pbkc) 21 Mg Patch TRANSDERM 1 patch DAILY KALPESH Administration Ondansetron HCl 4 mg 10/12/24 17:38 Ondansetron Inj 4 Mg/2 Ml Vial IV PUSH Q4H PRN Nausea Pantoprazole Sodium 40 mg 10/13/24 09:00 10/13/24 09:31 Pantoprazole 40 Mg Tablet PO 40 mg Q12HR KALPES[facility] Administration Polyethylene Glycol 238 gm 10/13/24 16:00 Polyethylene Glycol 3350 238 Gm Bottle PO 10/13/24 16:01 ONCE ONE Prednisone 5 mg 10/13/24 09:00 10/13/24 09:31 Prednisone 5 Mg Tablet PO 5 mg DAILY KALPESH Administration Saccharomyces Boulardii 250 mg 10/13/24 09:00 10/13/24 09:32 Saccharomyces Boulardii 250 Mg Capsule PO 250 mg BID KALPESH Administration Sertraline HCl 100 mg 10/13/24 21:00 Sertraline Hcl 50 Mg Tablet PO QHS KALPESH Simvastatin 10 mg 10/13/24 21:00 Simvastatin 10 Mg Tablet PO HS KALPESH Sodium Bicarbonate 1,300 mg 10/13/24 09:00 10/13/24 09:31 Sodium Bicarbonate Tab 650 Mg Tablet PO 1,300 mg TID KALPESH Administration Torsemide 5 mg 10/13/24 09:00 10/13/24 11:11 Torsemide 10 Mg Tablet PO 5 mg QAM KALPESH Administration Tramadol HCl 50 mg 10/12/24 23:33 Tramadol Hcl (*Crx) 50 Mg Tablet PO Q6H PRN chronic pain 4-6 Trazodone HCl 75 mg 10/13/24 21:00 Trazodone Hcl 25 Mg Tablet PO QHS [facility] Radiology Results: ITS Impressions Ribs w/Chest X-Ray 10/12/24 16:10 IMPRESSION: 1. Mildly displaced fractures of the posterior left 10th and 11th ribs. 2. Small left pleural effusion with retrocardiac atelectasis versus pneumonia. No pneumothorax. Labs Labs: Laboratory Results - last 24 hr 10/12/24 10/13/24 10/13/24 15:31 01:12 07:34 WBC 14.8 H 13.9 H RBC 2.24 L 3.10 L Hgb 6.5 L* 9.1 L Hct 22.8 L 29.3 L MCV 101.8 H 94.5 D MCH 29.0 29.4 MCHC 28.5 L 31.1 L RDW 14.0 16.2 H Plt Count 259 241 MPV 9.8 9.7 Immature Gran % (Auto) 0.7 H Neut % (Auto) 85.6 H Lymph % (Auto) 5.4 L Franklin % (Auto) 6.2 Eos % (Auto) 1.8 Baso % (Auto) 0.3 Lymph # (Auto) 0.79 L Franklin # (Auto) 0.9 H Eos # (Auto) 0.3 Baso # (Auto) 0.0 Abs Immat Gran (auto) 0.11 H Absolute Neuts (auto) 12.6 H Absolute Nucleated RBC 0.000 Nucleated RBC % 0.0 Platelet Estimate Adequate Hypochromasia 1+ Schistocytes None seen Sodium 138 136 L Potassium 5.2 H 4.8 Chloride 108 H 109 H Carbon Dioxide 27 28 Anion Gap 3 L -1 L BUN 49 H 47 H Creatinine 3.20 H 3.30 H Estim Creat Clear Calc 19 17 Estimated GFR 19 L 18 L Glucose 123 H 95 POC Capillary Glucose 87 Calcium 7.5 L 7.8 L Magnesium 1.9 Total Bilirubin 0.6 AST 36 ALT 18 Alkaline Phosphatase 101 Total Protein 6.0 L Albumin 3.0 L Blood Type O Positive Antibody Screen Negative Crossmatch See Detail 10/13/24 11:47 WBC RBC Hgb Hct MCV MCH MCHC RDW Plt Count MPV Immature Gran % (Auto) Neut % (Auto) Lymph % (Auto) Franklin % (Auto) Eos % (Auto) Baso % (Auto) Lymph # (Auto) Franklin # (Auto) Eos # (Auto) Baso # (Auto) Abs Immat Gran (auto) Absolute Neuts (auto) Absolute Nucleated RBC Nucleated RBC % Platelet Estimate Hypochromasia Schistocytes Sodium Potassium Chloride Carbon Dioxide Anion Gap BUN Creatinine Estim Creat Clear Calc Estimated GFR Glucose POC Capillary Glucose 150 H Calcium Magnesium Total Bilirubin AST ALT Alkaline Phosphatase Total Protein Albumin Blood Type Antibody Screen Crossmatch Quality VTE Prophylaxis VTE prophylaxis: mechanical ordered
[2024-10-13 14:00] VITALS: BP 147/57; PULSE 66; RESP 16; TEMP 36.9; O2SAT 98
[2024-10-13 16:40] LABS: Glucose Point of Care 148 mg/dl (65-105)
[2024-10-13] MEDS: BISACODYL 5 MG TABLET EC 20 MG PO (17:08)
[2024-10-13] MEDS: polyethylene glycoL 3350 238 GM BOTTLE PO (17:09)
[2024-10-13 17:20] LABS: Hemoglobin A1C 4.8 % (<5.7)
[2024-10-13 20:00] VITALS: O2SAT 99
[2024-10-13] MEDS: SIMVASTATIN 10 MG TABLET PO (20:54)
[2024-10-13] MEDS: traZODone HCL 25 MG TABLET 75 MG PO (20:54)
[2024-10-13] MEDS: SERTRALINE HCL 50 MG TABLET 100 MG PO (20:55)
[2024-10-13] MEDS: IPRATROPIUM 0.5 MG/ALBUTEROL SULFATE 2.5 MG AMPUL.NEB 3 ML INHALATION (21:24)
[2024-10-13 21:55] LABS: Glucose Point of Care 129 mg/dl (65-105)
[2024-10-13 22:00] VITALS: BP 157/56; PULSE 79; RESP 20; TEMP 36.8; O2SAT 99
[2024-10-14] VITALS (10 sets, daily range): BP systolic 112–151; BP diastolic 47–75; PULSE 65–86; RESP 17–25; TEMP 36.5–36.9; O2SAT 97–100
[2024-10-14] MEDS: MAGNESIUM CITRATE 300 ML BTL PO (01:30)
[2024-10-14 07:52] LABS: Glucose Point of Care 87 mg/dl (65-105)
[2024-10-14] MEDS: FLUTICASONE/UMECLIDIN/VILANTER 100-62.5-25 MCG ELLIPTA 1 PUFF INHALATION (08:00)
--- NOTE | 2024-10-14 09:20 | PC.NURSE ---
Morning medication held at this time. Scheduled for EGD & Colonoscopy.
[2024-10-14] MEDS: NICOTINE (*PBKC) 21 MG PATCH 1 PATCH TRANSDERM (09:31)
[2024-10-14] MEDS: amLODIPine BESYLATE 10 MG TABLET PO (09:31)
[2024-10-14] MEDS: SACCHAROMYCES BOULARDII 250 MG CAPSULE PO ×2 (09:31→17:03)
[2024-10-14] MEDS: FOLIC ACID 1 MG TABLET PO (09:31)
[2024-10-14] MEDS: PANTOPRAZOLE 40 MG TABLET PO ×2 (09:31→20:13)
[2024-10-14] MEDS: FERROUS SULFATE 325 MG TABLET DR BY MOUTH (09:31)
[2024-10-14] MEDS: LORATADINE 10 MG TABLET PO (09:31)
[2024-10-14] MEDS: MULTIVITAMINS THERAPEUTIC TAB (*BKC) 1 TABLET PO (09:31)
[2024-10-14] MEDS: ASCORBIC ACID 500 MG TABLET PO ×2 (09:31→17:02)
[2024-10-14] MEDS: hydrALAZINE HCL 25 MG TABLET PO ×3 (09:31→17:02)
[2024-10-14] MEDS: predniSONE 5 MG TABLET PO (09:31)
[2024-10-14] MEDS: GABAPENTIN 300 MG CAPSULE PO ×2 (09:32→17:02)
[2024-10-14] MEDS: TORSEMIDE 10 MG TABLET 5 MG PO (09:32)
[2024-10-14] MEDS: SODIUM BICARBONATE TAB 650 MG TABLET 1300 MG PO ×3 (09:32→17:02)
--- NOTE | 2024-10-14 09:40 | PC.NURSE ---
Telephone report given to [facility].
[2024-10-14] MEDS: EPOETIN ALFA-EPBX 10,000 UNITS/ML VIAL 10000 UNITS SUB-Q (11:28)
[2024-10-14] MEDS: traMADol HCL (*CRX) 50 MG TABLET PO ×2 (11:31→20:28)
[2024-10-14] MEDS: BACLOFEN 5 MG TABLET PO (11:31)
[2024-10-14 11:39] LABS: Glucose Point of Care 110 mg/dl (65-105)
--- NOTE | 2024-10-14 12:50 | PC.NURSE ---
To GI Lab per bre.
--- NOTE | 2024-10-14 12:58 | PC.NURSE ---
Medication for 1300 held at this time. Patient in GI Lab.
--- NOTE | 2024-10-14 13:12 | P.PNIM_ITS ---
Progress Note: A&P Assessment and Plan (1) Profound anemia: Code(s): D64.9 - Anemia, unspecified Status: Acute Assessment and Plan: * Hemoglobin initially 6.5 * Patient was given 2 units of PRBC in the ED * Hemoglobin now 9.1 * GI was consulted * He is Hemoccult positive * NPO after midnight * Bowel prep ordered for tonight * Plan for EGD and colonoscopy in the morning * Continue ferrous sulfate (2) Occult blood positive stool: Code(s): R19.5 - Other fecal abnormalities Status: Acute Assessment and Plan: See above (3) Left rib fracture: Code(s): S22.32XA - Fracture of one rib, left side, initial encounter for closed fracture Status: Acute Assessment and Plan: * Chest x-ray showed mildly displaced fractures of the posterior left 10th and 11th ribs * Continue pain control (4) Hyperkalemia: Code(s): E87.5 - Hyperkalemia Status: Resolved Assessment and Plan: * Initial potassium 5.2 * Does not appear that he received any treatment for this * Potassium today 4.8 (5) Chronic kidney disease, stage IV (severe): Code(s): N18.4 - Chronic kidney disease, stage 4 (severe) Status: Chronic Assessment and Plan: * Initial creatinine 3.20, EGFR 19--currently at baseline * Baseline creatinine 3.10-3.5, EGFR 18-20 * Avoid nephrotoxic medication and IV contrast * Renally dose medications (6) Chronic obstructive pulmonary disease: Code(s): J44.9 - Chronic obstructive pulmonary disease, unspecified Status: Chronic Assessment and Plan: * DuoNebs ordered p.r.n. (7) Hypertension: Code(s): I10 - Essential (primary) hypertension Status: Chronic Assessment and Plan: * Blood pressures ranging 152/71 to 178/66 * S continue amlodipine and hydralazine (8) Type 2 diabetes mellitus: Qualifiers: Diabetes mellitus intermediate project manager insulin use: without intermediate project manager use Diabetes mellitus complication detail: with foot ulcer Code(s): E11.9 - Type 2 diabetes mellitus without complications Status: Chronic Assessment and Plan: * Blood sugars ranging 87-150 * Hgb A1C 5.0 on 05/25/2024 * Will repeat hemoglobin A1c today * Accu checks AC/HS * Low-dose SSI ordered * hypoglycemic protocol in place * Diabetic diet ordered * Usually diet controlled at home Subjective Date/time seen: 10/14/24 13:12 Interval history: Interval history: This is a 78-year-old male who presented to the hospital on 10/12/2024 with abnormal labs. Patient had routine labs drawn and he was noted to have a low hemoglobin. Workup in the hospital included ribs with chest x-ray which showed mildly displaced fractures of the posterior left 10th and 11th ribs, small left pleural effusion with retrocardiac atelectasis versus pneumonia. Initial labs shown a white blood cell count of 14.8, hemoglobin 6.5, potassium 5.2, creatinine 3.20 EGFR 19. His stool was Hemoccult positive. Patient was given 2 units of blood. GI was consulted. Plan is for a colonoscopy and EGD. Subjective: Review of Systems Review of Systems: 12 systems were reviewed and are negativ e except for as per HPI. All systems reviewed & are unremarkable except as noted in HPI and below Constitutional: Constitutional: Reports as per HPI and Reports no additional constitutional complaints Eyes: Eyes: Reports as per HPI and Reports no additional eye complaints ENT: Reports system reviewed and no additional complaints, except as documented and Reports as per HPI Cardiovascular: Cardiovascular: Reports as per HPI and Reports no additional cardiovascular complaints Respiratory: Respiratory: Reports as per HPI and Reports no additional respiratory complaints Gastrointestinal: Gastrointestinal: Reports as per HPI and Reports no additional gastrointestinal complaints Genitourinary: Genitourinary: Reports no additional male genitourinary complaints and Reports as per HPI Musculoskeletal: Musculoskeletal: Reports no additional musculoskeletal complaints and Reports as per HPI Integumentary/Breasts: Skin/Breast: Reports system reviewed and no additional complaints, except as docu and Reports as per HPI Neurologic: Reports system reviewed and no additional complaints, except as documented and Reports as per HPI Psychiatric: Psychiatric: Reports no additional psychiatric complaints and Reports as per HPI Exam Narrative: General: In no acute distress, well nourished Head: atraumatic, no encephalopathy Eyes: PERRLA, sclera clear ENT: moist mucous membranes, nasal passages clear Neck: supple, no JVD, no adenopathy, trachea midline Cardiac: Normal S1 and S2. No murmur, gallops or friction rubs, peripheral pulses intact. Respiratory: Lungs course with audible wheezing, no other adventitious lung sounds, currently on 2L NC which is baseline O2 requirements Gastrointestinal: soft, non-distended, non-tender, normoactive bowel sounds. : voiding without difficulty. Extremities: moves all extremities well, no edema Skin:excessively dry Neuro: Alert and oriented x4, cranial nerves intact, no neuro deficits. Psych: normal mood, normal affect, interactive Objective Data Vital Signs Vital Signs: Vital Signs - 24 hr 10/13/24 14:00 10/13/24 20:00 10/13/24 22:00 Temperature 98.5 F 98.2 F Pulse Rate 66 79 Respiratory Rate 16 20 Blood Pressure 147/57 H 157/56 H Pulse Oximetry 98 99 99 Oxygen Delivery Nasal Cannula Oxygen Flow Rate 3 10/14/24 06:00 10/14/24 08:00 10/14/24 08:03 Temperature 97.7 F Pulse Rate 72 Respiratory Rate 22 H Blood Pressure 146/52 H Pulse Oximetry 98 97 97 Oxygen Delivery Nasal Cannula Nasal Cannula Oxygen Flow Rate 2 2.5 10/14/24 08:03 Temperature Pulse Rate 86 Respiratory Rate 20 Blood Pressure Pulse Oximetry Oxygen Delivery Oxygen Flow Rate Intake/Output Intake/Output: Intake & Output 10/11/24 10/12/24 10/13/24 10/14/24 23:59 23:59 23:59 23:59 Intake Total 700 1540 2100 Output Total 3100 Balance 700 -1560 2100 Meds/Results Medications: Active Medications Generic Name Dose Route Start Last Admin Trade Name Freq PRN Reason Stop Dose Admin Acetaminophen 650 mg 10/12/24 23:31 Acetaminophen 325 Mg Tablet PO Q6H PRN Mild Pain (1-3) or Fever Albuterol/Ipratropium 3 ml 10/12/24 23:33 10/13/24 21:24 Ipratropium 0.5 Mg/Albuterol Sulfate 2.5 Mg Ampul.Neb 3 Ml INHALATION 3 ml Q4HRT PRN Administration Shortness Of Breath Amlodipine Besylate 10 mg 10/13/24 09:00 10/14/24 09:31 Amlodipine Besylate 10 Mg Tablet PO 10 mg DAILY KALPESH Administration Ascorbic Acid 500 mg 10/13/24 09:00 10/14/24 09:31 Ascorbic Acid 500 Mg Tablet PO 500 mg BID KALPESH Administration Baclofen 5 mg 10/12/24 23:33 10/14/24 11:31 Baclofen 5 Mg Tablet PO 5 mg Q8H PRN Administration MUSCLE SPASM Dextrose 12.5 gm 10/12/24 23:31 Dextrose 50% 25 Gm/50 Ml Syringe IV PUSH PRN PRN Hypoglycemia Protocol Epoetin Aaron-epbx 10,000 units 10/14/24 09:00 10/14/24 11:28 Epoetin Aaron-Epbx 10,000 Units/Ml Vial SUB-Q 10,000 units MoWeFr KALPESH Administration Ferrous Sulfate 325 mg 10/13/24 09:00 10/14/24 09:31 Ferrous Sulfate [address] BY MOUTH 325 mg DAILY KALPESH Administration Fluticasone/Umeclidinium/Vilanterol 1 puff 10/13/24 08:00 10/14/24 08:00 Fluticasone/Umeclidin/Vilanter 100-62.5-25 Mcg Ellipta INHALATION 1 puff DAILYRT KALPESH Administration Folic Acid 1 mg 10/13/24 09:00 10/14/24 09:31 Folic Acid 1 Mg Tablet PO 1 mg DAILY KALPESH Administration Gabapentin 300 mg 10/13/24 09:00 10/14/24 09:32 Gabapentin 300 Mg Capsule PO 300 mg BID KALPESH Administration Glucagon 1 mg 10/12/24 23:31 Glucagon For Inj 1 Mg Vial IM PRN PRN Hypoglycemia Protocol Glucose 15 gm 10/12/24 23:31 Glucose Oral Gel 15 Gm Of Glucse In 37.5 Gm Tube PO PRN PRN Hypoglycemia Protocol Hydralazine HCl 25 mg 10/13/24 09:00 10/14/24 09:31 Hydralazine Hcl 25 Mg Tablet PO 25 mg TID KALPESH Administration Hydrocortisone 1 applic 10/12/24 23:33 Hydrocortisone 1% 30 Gm Cream TOPICAL Q8H PRN FOR ITCHING Hydroxyzine Pamoate 25 mg 10/12/24 23:33 10/13/24 11:12 Hydroxyzine Pamoate 25 Mg Capsule PO 25 mg Q12H PRN Administration anxiety Dextrose 1,000 mls @ 100 mls/hr 10/12/24 23:31 Dextrose 5% 1,000 Ml IVPB PRN PRN Hypoglycemia Protocol Insulin Aspart 2 - 5 units 10/13/24 08:00 10/14/24 11:40 Insulin Aspart (*Bkc) 100 Units/Ml SUB-Q Not Given TIDWM KALPESH Protocol Insulin Aspart 1 - 2 units 10/13/24 21:00 10/13/24 22:53 Insulin Aspart (*Bkc) 100 Units/Ml SUB-Q Not Given HS [facility] Protocol Loratadine 10 mg 10/13/24 09:00 10/14/24 09:31 Loratadine 10 Mg Tablet PO 10 mg QAM KALPESH Administration Multivitamins Therapeutic 1 tablet 10/13/24 09:00 10/14/24 09:31 Multivitamins Therapeutic Tab (*Bkc) PO 1 tablet DAILY KALPESH Administration Nicotine 1 patch 10/13/24 09:00 10/14/24 09:31 Nicotine (*Pbkc) 21 Mg Patch TRANSDERM 1 patch DAILY KALPESH Administration Ondansetron HCl 4 mg 10/12/24 17:38 Ondansetron Inj 4 Mg/2 Ml Vial IV PUSH Q4H PRN Nausea Pantoprazole Sodium 40 mg 10/13/24 09:00 10/14/24 09:31 Pantoprazole 40 Mg Tablet PO 40 mg Q12HR [facility]ALPES[facility] Administration Prednisone 5 mg 10/13/24 09:00 10/14/24 09:31 Prednisone 5 Mg Tablet PO 5 mg DAILY KALPESH Administration Saccharomyces Boulardii 250 mg 10/13/24 09:00 10/14/24 09:31 Saccharomyces Boulardii 250 Mg Capsule PO 250 mg BID KALPESH Administration Sertraline HCl 100 mg 10/13/24 21:00 10/13/24 20:55 Sertraline Hcl 50 Mg Tablet PO 100 mg QHS [facility]ALPES[facility] Administration Simvastatin 10 mg 10/13/24 21:00 10/13/24 20:54 Simvastatin 10 Mg Tablet PO 10 mg HS KALPESH Administration Sodium Bicarbonate 1,300 mg 10/13/24 09:00 10/14/24 09:32 Sodium Bicarbonate Tab 650 Mg Tablet PO 1,300 mg TID KALPESH Administration Torsemide 5 mg 10/13/24 09:00 10/14/24 09:32 Torsemide 10 Mg Tablet PO 5 mg QAM KALPESH Administration Tramadol HCl 50 mg 10/12/24 23:33 10/14/24 11:31 Tramadol Hcl (*Crx) 50 Mg Tablet PO 50 mg Q6H PRN Administration chronic pain 4-6 Trazodone HCl 75 mg 10/13/24 21:00 10/13/24 20:54 Trazodone Hcl 25 Mg Tablet PO 75 mg QHS KALPESH Administration Radiology Results: ITS Impressions Ribs w/Chest X-Ray 10/12/24 16:10 IMPRESSION: 1. Mildly displaced fractures of the posterior left 10th and 11th ribs. 2. Small left pleural effusion with retrocardiac atelectasis versus pneumonia. No pneumothorax. Labs Labs: Laboratory Results - last 24 hr 10/13/24 10/13/24 10/13/24 01:10 16:33 21:52 POC Capillary Glucose 148 H 129 H Hemoglobin A1c 4.8 10/14/24 10/14/24 07:46 11:34 POC Capillary Glucose 87 110 H Hemoglobin A1c Quality VTE Prophylaxis VTE prophylaxis: mechanical ordered
--- NOTE | 2024-10-14 13:18 | WPDANESEPPF ---
Anes - Initial Pre Proc Eval Procedure: Operation Date: 10/14/24 15:00 Proposed Procedures p Esophagogastroduodenoscopy & Colonoscopy - lAy Brown MD Date/Time: 10/14/24 13:18 Surgeon: Enedina Alanis APRN Pre Op Diagnosis: Anemia, Occult positive stool Patient Data Age: 78 Gender: M Height: 1.75 m Weight: 69.4 kg Last Vital Signs Temp 36.5 C 10/14/24 06:00 Pulse 86 10/14/24 08:03 Resp 20 10/14/24 08:03 BP 146/52 H 10/14/24 06:00 Pulse Ox 97 10/14/24 08:03 O2 Del Method Nasal Cannula 10/14/24 08:03 O2 Flow Rate 2.5 10/14/24 08:03 Allergies Allergy/AdvReac Type Severity Reaction Status Date / Time niacin Allergy Intermediate Rash/itchin Verified 10/14/24 13:15 g hydrocodone (From [place]) AdvReac Confusion Verified 10/14/24 13:15 Home Medications ?Medication ?Instructions ?Recorded ?Confirmed ?Type folic acid 1 mg tablet 1 mg PO DAILY 12/02/20 10/12/24 History amlodipine 10 mg tablet 10 mg PO DAILY #90 tabs 12/04/21 10/12/24 Rx multivitamin 1 tablet PO DAILY #90 tabs 05/07/22 10/12/24 Rx acetaminophen 650 mg 650 mg PO Q4H PRN PAIN 09/30/23 10/12/24 History tablet,extended release baclofen 5 mg tablet 5 mg PO Q8H PRN MUSCLE SPASM 09/30/23 10/12/24 History benzonatate 100 mg capsule 100 mg PO TID PRN Cough 09/30/23 10/12/24 History bisacodyl 10 mg rectal suppository 10 mg RECTAL DAILY PRN SEE 09/30/23 10/12/24 History INSTRUCTIONS cetirizine 10 mg tablet 10 mg PO DAILY 09/30/23 10/12/24 History cholecalciferol (vitamin D3) 25 25 mcg PO DAILY 09/30/23 10/12/24 History mcg (1,000 unit) tablet ipratropium 0.5 mg-albuterol 3 mg 3 ml inhalation Q4H PRN shortness 09/30/23 10/12/24 History (2.5 mg base)/3 mL nebulization of breath or wheezing soln ipratropium bromide 17 2 puff inhalation Q4H PRN sob 09/30/23 10/12/24 History mcg/actuation HFA aerosol inhaler (Atrovent HFA) magnesium citrate (Citroma oral 296 ml PO DAILY PRN SEE 09/30/23 10/12/24 History solution) INSTRUCTIONS magnesium hydroxide 400 mg/5 mL 30 ml PO QHS PRN Constipation 09/30/23 10/12/24 History oral suspension sertraline 50 mg tablet 100 mg PO QHS 09/30/23 10/12/24 History sodium phosphates 19 gram-7 118 ml RECTAL ONCE PRN SEE 09/30/23 10/12/24 History gram/118 mL enema (Fleet Enema) INSTRUCTIONS guaifenesin 600 mg tablet, 600 mg PO Q12H 05/25/24 10/12/24 History extended release 12 hr ipratropium 0.5 mg-albuterol 3 mg 3 ml inhalation Q4H PRN SOB 05/25/24 10/12/24 History (2.5 mg base)/3 mL nebulization soln sodium bicarbonate 650 mg tablet 1,300 mg (2 x 650 mg) PO TID #90 05/28/24 10/12/24 Rx tabs tramadol 50 mg tablet 50 mg PO Q6H PRN chronic pain #1 05/28/24 10/12/24 Rx tablet ascorbic acid (vitamin C) 500 mg 500 mg PO BID 07/23/24 10/12/24 History capsule cyanocobalamin (vitamin B-12) 500 1,000 mcg PO DAILY 07/23/24 10/12/24 History mcg tablet ferrous sulfate 325 mg (65 mg 325 mg PO DAILY 07/23/24 10/12/24 History iron) tablet gabapentin 300 mg capsule 300 mg PO BID 07/23/24 10/12/24 History hydrocortisone 1 % topical cream 1 applic topical .Q 8HR PRN FOR 07/23/24 10/12/24 History (Cortisone (hydrocortisone)) ITCHING apixaban 2.5 mg tablet (Eliquis) 2.5 mg PO BID 07/27/24 10/12/24 History aspirin 81 mg tablet,delayed 325 mg PO QAM 07/27/24 10/12/24 History release fluticasone fur. 100 mcg-umeclid 1 inh inhalation DAILY 07/27/24 10/12/24 History 62.5 mcg-vilant 25 mcg inhalat.powder (Trelegy Ellipta) ipratropium bromide 17 2 puff inhalation TID 07/27/24 10/12/24 History mcg/actuation HFA aerosol inhaler (Atrovent HFA) lanolin alcohols-mineral 1 applic topical QSHIFT 07/27/24 10/12/24 History oil-w.petrolatum-ceresin topical cream (Minerin Creme topical) prednisone 2.5 mg tablet 2.5 mg PO DAILY 07/27/24 10/12/24 History simvastatin 10 mg tablet 10 mg PO HS 07/27/24 10/12/24 History sodium zirconium cyclosilicate 10 10 g PO BID 14 days #30 ea 07/31/24 10/12/24 Rx gram oral powder packet (Lokelok) Saccharomyces boulardii 250 mg 250 mg PO BID 10/12/24 10/12/24 History capsule (Daily Probiotic (S. boulardii)) amoxicillin 500 mg-potassium 1 tablet PO Q12H 10/12/24 10/12/24 History clavulanate 125 mg tablet aspirin 325 mg capsule 325 mg PO DAILY 10/12/24 10/12/24 History diclofenac sodium 1 % topical gel 2 g topical TID 10/12/24 10/12/24 History (Arthritis Pain (diclofenac)) epoetin rosalie 10,000 unit/mL 10,000 unit subcut .MWF anemia 10/12/24 10/12/24 History injection solution (Procrit) hydralazine 25 mg tablet 25 mg PO TID 10/12/24 10/12/24 History hydroxyzine pamoate 25 mg capsule 25 mg PO Q12H PRN anxiety 10/12/24 10/12/24 History lanolin alcohols-mineral 1 applic topical BID 10/12/24 10/12/24 History oil-w.petrolatum-ceresin topical cream (Minerin Creme topical) multivitamin (Daily Multi-Vitamin 1 tablet PO DAILY 10/12/24 10/12/24 History tablet) nicotine 21 mg/24 hr daily 1 patch transdermal DAILY 10/12/24 10/12/24 History transdermal patch (Nicoderm CQ) pantoprazole 40 mg tablet,delayed 40 mg PO Q12H 10/12/24 10/12/24 History release prednisone 5 mg tablet 5 mg PO DAILY 10/12/24 10/12/24 History sodium phosphates 19 gram-7 118 ml RECTAL ONCE 10/12/24 10/12/24 History gram/118 mL enema (Fleet Enema) torsemide 10 mg tablet 5 mg PO QAM 10/12/24 10/12/24 History trazodone 50 mg tablet 75 mg PO QHS 10/12/24 10/12/24 History Laboratory Tests 10/13/24 10/13/24 10/13/24 01:10 16:33 21:52 POC Capillary Glucose 148 H mg/dl 129 H mg/dl (65-105) (65-105) Hemoglobin A1c 4.8 % (<5.7) 10/14/24 10/14/24 07:46 11:34 POC Capillary Glucose 87 mg/dl 110 H mg/dl (65-105) (65-105) Hemoglobin A1c Patient hx anesthesia problems: none Family hx anesthesia problems: none Results Review: All pre-operative results and documents have been reviewed as part of the pre-operative evaluation. [facility] Past Medical History Medical History Diabetic retinopathy Dilated eye exam December 2023 demonstrating mild bilateral disease CKD (chronic kidney disease) stage 4, GFR 15-29 ml/min COVID-19 Metabolic acidosis Alcohol abuse Acute hyperkalemia Acute kidney injury Hypoxia Acidosis Abrasion of left leg Pulmonary hypertension Echocardiogram on 06/08/2021 showed normal left ventricular systolic function with an EF estimated 65 to 70%, mildly increased LV wall thickness, severely enlarged right atrial chamber, mildly enlarged left atrial chamber, mild mitral valve and trace tricuspid valve regurgitation, and mild pulmonary hypertension with an estimated pulmonary arterial systolic pressure of 35 mmHg. Diabetic foot ulcer Acute and chronic respiratory failure Pancreatitis (03/2021) MRSA (methicillin resistant Staphylococcus aureus) septicemia (09/2020) Alcohol abuse Chronic anemia Ichthyosis vulgaris Osteoarthritis Former smoker Irritable bowel syndrome Chronic respiratory failure with hypoxia, on home O2 therapy Gastroesophageal reflux disease Benign prostatic hyperplasia Type 2 diabetes mellitus Hemoglobin A1c was 6.6% on 06/09/2021. Chronic obstructive pulmonary disease Severe obstructive disease without bronchodilator relief noted on PFTs September 2019 Hypertension Diastolic congestive heart failure Echocardiogram 2020 EF 65-70, mildly increased left ventricular wall thickness, severe right atrial enlargement, mild left atrial enlargement, mild pulmonary hypertension with RVSP of 35, indeterminate diastolic function due to AFib Persistent atrial fibrillation Diabetic peripheral neuropathy Hearing loss Cerebrovascular accident Foot osteomyelitis, left Wound, open, foot Diabetic foot infection (Unknown) Severe sepsis Anxiety Depression Sacrum and coccyx fracture Osteomyelitis History of osteomyelitis of both feet requiring multiple amputations. 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 History of total right hip arthroplasty (2002) History of ventral hernia repair (2006) History of tonsillectomy History of bilateral cataract extraction Family History Family History Mother Patient's mother is , Onset Age: 31 Father Suicide Social History Social History Social History: Surrogate medical decision maker: Annetta Jean Baptiste, daughter Code status: Full code. Smoking packs per day: 1 Smoking cigarettes per day: 20.0 Years smoked: 58 Smoking pack-years: 58.00 Smoking status: Current some day smoker Second hand tobacco smoke exposure: No Alcohol intake: former Substance use: never Substance use type: does not use Do You Feel Safe in your Home?: Yes Lack of Transportation: No Lack of Food: Never True Current Housing: I Have Housing Concerned About Future Housing: No Difficulty Paying Gas/Electric Bills: No Difficulty Paying for Meds: No Currently Unemployed: No Education: Grade School Difficulty w/ Childcare or Family Care: No Living arrangements: longterm Additional living arrangements comments: . He has 7 children. 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 Spiritual care concerns: No Anes - Eval Final PreProcedure Day of Procedure 10/14/24 13:18 Patient weight: thin Heart: irregular rhythm Lungs: clear to auscultation Airway: Mallampati scale class II Neurological: alert and oriented Last oral intake: >/= 8 hours ASA classification: IV Emergent: no Anesthetic plan: proceed Anesthesia type and monitoring: general GIVS and standard monitoring Results Review: All pre-operative results and documents have been reviewed as part of the pre-operative evaluation. Informed Consent: The patient's anesthetic plan and its attendant risks and benefits were discussed with the patient/family/POA. Questions were solicited and answers provided to the satisfaction of the patient/family/POA.
[2024-10-14] MEDS: LACTATED RINGERS 1,000 ML 150 ML IV CONT (13:20)
[2024-10-14] MEDS: BENZOCAINE (*SP) 60 ML SPRAY CAN (HURRICAINE) 1 SPRAY MUCOUS MEM (13:29)
[2024-10-14 13:30] LABS: Glucose Point of Care 116 mg/dl (65-105)
[2024-10-14 14:02] LABS: Glucose Point of Care 120 mg/dl (65-105)
--- NOTE | 2024-10-14 14:30 | PC.NURSE ---
Returned to room per stretcher from GI Lab.
[2024-10-14 14:56] LABS: Basophils Percent Auto 0.4 % (0.2-1.2); Eosinophils Absolute Auto 0.1 K/mm3 (0-0.3); Hematocrit 30.2 % (42.0-52.0); Hemoglobin 9.6 g/dL (14.0-18.0); Immature Granulocyte Absolute 0.11 K/mm3 (0.00-0.031); Immature Granulocyte Percent A 1.1 % (0-0.5); Lymphocytes Absolute Auto 0.67 K/mm3 (0.9-3.2); Lymphocytes Percent Auto 6.5 % (18.3-44.2); Mean Corpuscular HGB Conc 31.8 g/dl (32-36); Mean Corpuscular Hemoglobin 29.8 pg (26-34); Mean Corpuscular Volume 93.8 fl (80-100); Mean Platelet Volume 9.2 fl (7.4-10.4); Monocytes Absolute Auto 0.3 K/mm3 (0.1-0.6); Monocytes Percent Auto 2.9 % (2.6-8.5); Neutrophils Absolute Auto 9.1 K/mm3 (1.3-6.7); Neutrophils Percent Auto 88.1 % (45.5-73.1); Platelet Count Result 249 k/mm3 (150-375); Red Blood Count 3.22 M/mm3 (4.6-6.20); Red Cell Distribution Width 15.1 % (11.5-14.5); White Blood Count 10.3 K/mm3 (4.5-10.0)
[2024-10-14 15:28] LABS: Alanine Aminotransferase 15 U/L (6-50); Albumin Level 2.7 g/dL (3.5-5.1); Alkaline Phosphatase 104 U/L (38-126); Anion Gap 1 mmol/L (4-12); Aspartate Amino Transferase 35 U/L (17-59); Bilirubin,Total 0.4 mg/dL (0.2-1.3); Blood Urea Nitrogen 35 mg/dL (9-20); Carbon Dioxide 26 mmol/L (22-30); Chloride 109 mmol/L (98-107); Estimated CRCL calculation 18 ml/min; Estimated Glomerular Filt Rate 20; Glucose 115 mg/dL (65-110); Potassium 4.9 mmol/L (3.4-5.0); Sodium 136 mmol/L (137-145)
[2024-10-14 16:49] LABS: Glucose Point of Care 153 mg/dl (65-105)
--- NOTE | 2024-10-14 18:19 | PM.DS ---
DS: Admitting Diagnosis Discharge Date 10/14/24 Admitting Diagnosis profound anemia occult blood positive stool left rib fracture hyperkalemia chronic kidney disease stage 4 COPD hypertension type 2 diabetes mellitus DS: Discharge Diagnosis Discharge Diagnosis (1) Profound anemia: Code(s): D64.9 - Anemia, unspecified Status: Acute (2) Occult blood positive stool: Code(s): R19.5 - Other fecal abnormalities Status: Acute (3) Left rib fracture: Code(s): S22.32XA - Fracture of one rib, left side, initial encounter for closed fracture Status: Acute (4) Hyperkalemia: Code(s): E87.5 - Hyperkalemia Status: Resolved (5) Chronic kidney disease, stage IV (severe): Code(s): N18.4 - Chronic kidney disease, stage 4 (severe) Status: Chronic (6) Chronic obstructive pulmonary disease: Code(s): J44.9 - Chronic obstructive pulmonary disease, unspecified Status: Chronic (7) Hypertension: Code(s): I10 - Essential (primary) hypertension Status: Chronic (8) Type 2 diabetes mellitus: Qualifiers: Diabetes mellitus adjunct faculty for medical terminology insulin use: without correction use Diabetes mellitus complication detail: with foot ulcer Code(s): E11.9 - Type 2 diabetes mellitus without complications Status: Chronic DS: Summary Hospital Course Reason for hospitalization: profound anemia occult blood positive stool left rib fracture hyperkalemia chronic kidney disease stage 4 COPD hypertension type 2 diabetes mellitus Hospital Course: This is a 78-year-old male who presented to the hospital on 10/12/2024 with abnormal labs. Patient had routine labs drawn and he was noted to have a low hemoglobin. Workup in the hospital included ribs with chest x-ray which showed mildly displaced fractures of the posterior left 10th and 11th ribs, small left pleural effusion with retrocardiac atelectasis versus pneumonia. Initial labs shown a white blood cell count of 14.8, hemoglobin 6.5, potassium 5.2, creatinine 3.20 EGFR 19. His stool was Hemoccult positive. Patient was given 2 units of blood. GI was consulted. patient went for EGD today which was essentially normal. He also had a colonoscopy which only showed diverticulosis without any perforation or active bleeding. GI has signed off. He is stable for discharge at this time. He will need to follow up with his primary care doctor in 1 week. We can resume his apixaban on Saturday. final diagnosis: GI bleed, acute anemia Status at Discharge Cognitive/behavioral status at discharge: alert oriented x4 Functional status at discharge: independent ambulation Overall status at discharge: patient is progressing back to baseline Time Spent with Patient Time attestation: Total time spent providing and/or coordinating discharge services: Time spent: Greater than 30 minutes Exam Narrative: General: In no acute distress, well nourished Cardiac: Normal S1 and S2. No murmur, gallops or friction rubs, peripheral pulses intact. Respiratory: Lungs harsh with audible wheezing, no other adventitious lung sounds, currently on 2L NC which is baseline O2 requirements Gastrointestinal: soft, non-distended, non-tender, normoactive bowel sounds. : voiding without difficulty. Skin:excessively dry Neuro: Alert and oriented x4 DS: Data Data Completed and Pending Completed studies during hospitalization: ribs with chest x-ray Pending studies at discharge: none Labs on day of discharge: Labs from last 24 hours 10/14/24 10/14/24 10/14/24 16:47 14:50 13:59 WBC 10.3 H RBC 3.22 L Hgb 9.6 L Hct 30.2 L MCV 93.8 MCH 29.8 MCHC 31.8 L RDW 15.1 H Plt Count 249 MPV 9.2 Immature Gran % (Auto) 1.1 H Neut % (Auto) 88.1 H Lymph % (Auto) 6.5 L [facility] % (Auto) 2.9 Eos % (Auto) 1.0 Baso % (Auto) 0.4 Lymph # (Auto) 0.67 L [facility] # (Auto) 0.3 Eos # (Auto) 0.1 Baso # (Auto) 0.0 Abs Immat Gran (auto) 0.11 H Absolute Neuts (auto) 9.1 H Absolute Nucleated RBC 0.000 Nucleated RBC % 0.0 Sodium 136 L Potassium 4.9 Chloride 109 H Carbon Dioxide 26 Anion Gap 1 L BUN 35 H D Creatinine 3.10 H Estim Creat Clear Calc 18 Estimated GFR 20 L Glucose 115 H POC Capillary Glucose 153 H 120 H Calcium 8.0 L Total Bilirubin 0.4 AST 35 ALT 15 Alkaline Phosphatase 104 Total Protein 5.0 L Albumin 2.7 L 10/14/24 10/14/2424 13:11 11:34 07:46 WBC RBC Hgb Hct MCV MCH MCHC RDW Plt Count MPV Immature Gran % (Auto) Neut % (Auto) Lymph % (Auto) [facility] % (Auto) Eos % (Auto) Baso % (Auto) Lymph # (Auto) [facility] # (Auto) Eos # (Auto) Baso # (Auto) Abs Immat Gran (auto) Absolute Neuts (auto) Absolute Nucleated RBC Nucleated RBC % Sodium Potassium Chloride Carbon Dioxide Anion Gap BUN Creatinine Estim Creat Clear Calc Estimated GFR Glucose POC Capillary Glucose 116 H 110 H 87 Calcium Total Bilirubin AST ALT Alkaline Phosphatase Total Protein Albumin 10/13/24 21:52 WBC RBC Hgb Hct MCV MCH MCHC RDW Plt Count MPV Immature Gran % (Auto) Neut % (Auto) Lymph % (Auto) [facility] % (Auto) Eos % (Auto) Baso % (Auto) Lymph # (Auto) [facility] # (Auto) Eos # (Auto) Baso # (Auto) Abs Immat Gran (auto) Absolute Neuts (auto) Absolute Nucleated RBC Nucleated RBC % Sodium Potassium Chloride Carbon Dioxide Anion Gap BUN Creatinine Estim Creat Clear Calc Estimated GFR Glucose POC Capillary Glucose 129 H Calcium Total Bilirubin AST ALT Alkaline Phosphatase Total Protein Albumin Procedures/Treatments: EGD and colonoscopy Discharge Plan Discharge Attending physician on discharge: Ken Mclain Consulting providers: Aly Brown Discharging Clinician: Enedina Alanis Anticipated Discharge Date/Time: 10/14/24 18:14 Patient Disposition: Home, Self-Care Activity: as tolerated Diet: as tolerated Discharge Instructions: while you are here you had an upper endoscopy which did not show any signs of bleeding or any abnormality. You also had a colonoscopy which showed diverticulosis without any perforation and no signs of active bleeding. You were given 2 units of blood for your low hemoglobin. You can resume your apixaban on Saturday follow-up with your primary care doctor in 1 week you do not need to follow-up with GI unless you have more issues with GI bleeding Patient Instructions: Antibiotic Form, Apixaban (By mouth), Heart Failure (DC), Gastrointestinal Bleeding (DC), Pain Management (DC) Patient Language: Yakut Stand Alone Forms: General Discharge Information Follow-up/Referrals: Master Colbert MD [Primary Care Provider] - 1 Week Aly Brown MD [Physician] - Discharge Medications: Continued acetaminophen 650 mg tablet extended release 650 mg PO Q4H PRN (Reason: PAIN) Atrovent HFA 17 mcg/actuation HFA aerosol inhaler 2 puff inhalation Q4H PRN (Reason: sob) baclofen 5 mg tablet 5 mg PO Q8H PRN (Reason: MUSCLE SPASM) benzonatate 100 mg capsule 100 mg PO TID PRN (Reason: Cough) bisacodyl 10 mg suppository 10 mg RECTAL DAILY PRN (Reason: SEE INSTRUCTIONS) Rx Instructions: FOR CONSTIPATION DAILY IF NO RESULTS FROM MOM cetirizine 10 mg tablet 10 mg PO DAILY cholecalciferol (vitamin D3) 25 mcg (1,000 unit) tablet 25 mcg PO DAILY magnesium citrate [Citroma] Solution 296 ml PO DAILY PRN (Reason: SEE INSTRUCTIONS) Rx Instructions: NEEDED FOR CONSTIPATION - GIVE IN AM IF NO RESULTS AFTER ENEMA .IF NO RESULTS WITHIN 1 HOUR OF COMPLETION CONTACT MD Doty Enema 19-7 gram/118 mL enema 118 ml RECTAL ONCE PRN (Reason: SEE INSTRUCTIONS) Rx Instructions: GIVE FOR CONSTIPATION IF NO RESULTS 1 DAY AFTER SUPPOSITORY ipratropium-albuterol 0.5 mg-3 mg(2.5 mg base)/3 mL solution for nebulization 3 ml inhalation Q4H PRN (Reason: shortness of breath or wheezing) magnesium hydroxide 400 mg/5 mL suspension 30 ml PO QHS PRN (Reason: Constipation) Rx Instructions: FOR CONSTIPATION IF NO BM IN 3 DAYS sertraline 50 mg tablet 100 mg PO QHS gabapentin 300 mg capsule 300 mg PO BID cyanocobalamin (vitamin B-12) 500 mcg tablet 1,000 mcg PO DAILY Rx Instructions: take 750mcg daily hydrocortisone [Cortisone (hydrocortisone)] 1 % cream 1 applic topical .Q 8HR PRN (Reason: FOR ITCHING) ascorbic acid (vitamin C) 500 mg capsule 500 mg PO BID ferrous sulfate 325 mg (65 mg iron) tablet 325 mg PO DAILY prednisone 2.5 mg tablet 2.5 mg PO DAILY Atrovent HFA 17 mcg/actuation Hfa Aerosol Inhaler 2 puff INHALATION TID Minerin Creme Cream 1 applic TOPICAL QSHIFT Trelegy Ellipta 100-62.5-25 mcg Blister With Device 1 inh INHALATION DAILY simvastatin 10 mg tablet 10 mg PO HS aspirin 81 mg tablet,delayed release (DR/EC) 325 mg PO QAM Lokelma 10 gram Powder In Packet 10 g PO BID 14 Days Qty: 30 0RF Procrit 10,000 unit/mL solution 10,000 unit subcut .MWF Rx Instructions: Administer for Hgb <10 pantoprazole 40 mg tablet,delayed release (DR/EC) 40 mg PO Q12H nicotine [Nicoderm CQ] 21 mg/24 hr patch 24 hour 1 patch transdermal DAILY prednisone 5 mg tablet 5 mg PO DAILY Saccharomyces boulardii [Daily Probiotic (S. boulardii)] 250 mg capsule 250 mg PO BID amoxicillin-pot clavulanate 500-125 mg tablet 1 tablet PO Q12H hydroxyzine pamoate 25 mg capsule 25 mg PO Q12H PRN (Reason: anxiety) diclofenac sodium [Arthritis Pain (diclofenac)] 1 % gel 2 g topical TID Rx Instructions: apply to left shoulder hydralazine 25 mg tablet 25 mg PO TID torsemide 10 mg tablet 5 mg PO QAM multivitamin [Daily Multi-Vitamin] Tablet 1 tablet PO DAILY aspirin 325 mg capsule 325 mg PO DAILY Minerin Creme Cream 1 applic topical BID Fleet Enema 19-7 gram/118 mL enema 118 ml RECTAL ONCE trazodone 50 mg tablet 75 mg PO QHS folic acid 1 mg tablet 1 mg PO DAILY Rx Instructions: TAKE 1 TABLET BY MOUTH DAILY guaifenesin 600 mg Tablet Extended Release 12hr 600 mg PO Q12H ipratropium-albuterol 0.5 mg-3 mg(2.5 mg base)/3 mL Solution For Nebulization 3 ml INHALATION Q4H PRN (Reason: SOB) tramadol 50 mg Tablet 50 mg PO Q6H PRN (Reason: chronic pain) Qty: 1 0RF sodium bicarbonate 650 mg Tablet 1,300 mg PO TID Qty: 90 0RF amlodipine 10 mg tablet 10 mg PO DAILY Qty: 90 1RF multivitamin Tablet 1 tablet PO DAILY Qty: 90 1RF Held Eliquis 2.5 mg Tablet 2.5 mg PO BID Hold Instructions: Resume on 10/16/24. you may resume the morning of 10/16/2024 Date of admission: 10/13/24 11:06 Primary Care Provider: Master Colbert Admitting Provider: Mickey Monzon Attending physician on admission: Enedina Alanis Condition: Improved Quality VTE Prophylaxis VTE prophylaxis: mechanical ordered Hospitalist MIPS Heart Failure (Exclusion) Patient has history of Heart Transplant or Left Ventricular Assistive Device?: No IF YES, STOP HERE Heart Failure (Qualifier) Patient has current or prior documentation of LVEF less than or equal to 40%, or mod/servere depressed LVSF?: No IF NO, STOP HERE
[2024-10-14] MEDS: traZODone HCL 25 MG TABLET 75 MG PO (20:13)
[2024-10-14] MEDS: SIMVASTATIN 10 MG TABLET PO (20:13)
[2024-10-14] MEDS: SERTRALINE HCL 50 MG TABLET 100 MG PO (20:13)
[2024-10-14 21:11] LABS: Glucose Point of Care 161 mg/dl (65-105)
--- NOTE | 2024-10-15 10:36 | PCCCNOTE ---
10/14/24: Discharge packet made for pt to return to [facility]. Spoke with the nurse at [facility], who said pt did not need a Covid swab. The Pts. nurse on the floor, Claudia, spoke with the pts family to make them aware of pts return to [facility].
--- OUTSIDE RECORDS SUMMARY | 2024-10-21 23:05 | XMS_ITS | Encounter Summary ---
Author Organization [facility] Address [address] [place] [address] Care Team Providers Care Remittance Clerk Name Role Phone Leoncio Kilpatrick MD Primary Care Provider [phone] Encounter Details Date Type Department Care Team (Late st Contact Info) Description 06/29/2020 Orders Only [facility] Cardiology [address] [place] [address] Destin Bob MD [address] [place] [id number] Social History Tobacco Use Types Packs/Day Years Used Date Smoking Tobacco: Former Alcohol Use Standard Drinks/Week Comments Yes 0 (1 standard drink = 0.6 oz pur e alcohol) 1OR 2 DAILY Sex and Gender Information Value Date Recorded Sex Assigned at Not on file Legal Sex Male 3:11 AM [employer] Gender Identity Not on file Sexual Orientation Not on file documented as of this encounter Plan of Treatment Not on file documented as of this encounter Procedures Procedure Name Priority Date/Time Associated Diagnosis Comments CARDIOLOGY DOCUMENT SCAN Routine 06/29/2020 documented in this encounter Results * SCAN - CARDIOLOGY (06/29/2020) Anatomical Region Laterality Modality Other Destin Bob MD [facility] Final Result documented in this encounter Visit Diagnoses Not on filedocumented in this encounter Care Teams Remittance Clerk Relationship Specialty Start Date End Date Leoncio Kilpatrick MD [address] [place] [address] PCP - General 06/09/18 documented as of this encounter
--- OUTSIDE RECORDS SUMMARY | 2024-10-21 23:05 | XMS_ITS | Referral Summary ---
Author Organization [facility] Address [address] [place] [address] Care Team Providers Care Flue Lining Dipper Name Role Phone Leoncio Kilpatrick MD Primary Care Provider [phone] Encounters Date Type Department Care Team Description 08/04/2024 Orders Only [facility] Medical [facility] Cardiology [address] [place] [address] Joel Pulido MD from Last 3 Months Allergies Active Allergy Reactions Criticality Noted Date Comments Niacin Other (See comments) Low 07/11/2016 Skin turned pink Turned skin pink Medications gabapentin (NEURONTIN) 100 mg capsule Take by mouth 3 (three) times a day. Active ipratropium-albut anjali (DUO-NEB) 0.5-2.5 mg/3 mL nebulizer solutionIndicatio ns:Chronic Obstructive Pulmonary Disease with Bronchospasms Take by nebulization every 6 (six) hours. Active sertraline (ZOLOFT) 50 mg tablet Take 50 mg by mouth daily. Active PROAIR HFA 90 mcg/actuation inhaler INL 2 PFS PO Q 4 TO 6 H PRF SOB 0 03/13/20 18 Active omeprazole (PriLOSEC) 40 mg capsule TK 1 C PO BID. 2 05/08/20 18 Active simvastatin (ZOCOR) 10 mg tablet TK 1 T PO QD IN THE MONAE 1 05/01/20 18 Active predniSONE (DELTASONE) 5 mg tablet TK 1/2 T PO D 5 05/01/20 18 Active losartan (COZAAR) 25 mg tablet Take 50 mg by mouth. 09/14/20 16 Active metoprolol (LOPRESSOR) 50 mg tablet Take 50 mg by mouth. 07/11/20 16 Active acetaminophen 500 mg capsule Take 2 capsules (1,000 mg total) by mouth every 6 (six) hours as needed for pain. 30 tablet 06/06/20 18 Active senna-docusate (PERICOLACE) 8.6-50 mg Take 2 tablets by mouth 2 (two) times a day. 60 tablet 06/06/20 18 Active cyclobenzaprine (FLEXERIL) 5 mg tablet Take 1 tablet (5 mg total) by mouth 3 (three) times a day as needed for muscle spasms. 30 tablet 06/06/20 18 Active lidocaine (LIDODERM) 5 % Apply 2 patches topically daily. Remove & discard patch within 12 hours or as directed by MD. 15 patch 06/07/20 18 Active Active Problems Problem Noted Date Diagnosed Date COPD (chronic obstructive pulmonary disease) 03/2018 Neuropathy 06/02/2018 Major depressive disorder 06/02/2018 Chronic renal failure 06/02/2018 Anxiety 06/02/2018 Pleural effusion 06/02/2018 Heterotopic ossification 06/02/2018 Acute pain due to trauma 06/02/2018 T12 burst fracture 06/01/2018 Assessment & Plan (06/01/2018 5:03 AM CDT): - TLSO when sitting up. Spine MR when able (ordered). GTS admit (pain control, PT/OT, placement) L1 vertebral fracture (CMS/HCC) 06/01/2018 Assessment & Plan (06/01/2018 5:03 AM CDT): - TLSO when sitting up. Spine MR when able (ordered). GTS admit (pain control, PT/OT, placement) ETOH abuse 06/01/2018 Atrial flutter (CMS/HCC) 04/08/2017 Assessment & Plan (06/01/2018 4:35 AM CDT): -home metop Assessment & Plan (04/08/2017 1:18 PM CDT): Rate is controlled using metoprolol.. On Xarelto. He is having frequent falls and last time he fell down about 10 days ago he had a fracture in his sacral spine. At this time I discussed with the patient and I called his daughter and discussed that I would stop the Xarelto given these frequent falls. Both patient and daughter agree Essential hypertension, benign 04/08/2017 Assessment & Plan (04/08/2017 1:13 PM CDT): controlled Falls frequently 04/08/2017 Assessment & Plan (04/08/2017 1:14 PM CDT): Last time he fell down on March 24, 2017 and there was sacral fracture with 1 spot suggestive of Mets. I advised patient if the pain is still there to go back to the emergency room to have this fraction re-evaluated. Resolved Problems Problem Noted Date Diagnosed Date Resolved Date Leukocytosis 06/03/2018 06/04/2018 Atelectasis 06/03/2018 06/04/2018 On home oxygen therapy 06/02/201806/04 Therapy 06/02/2018 06/04/2018 Shortness of breath 04/08/2017 06/04/20 18 Assessment & Plan (04/08/2017 1:17 PM CDT): He has COPD and on home O2. Stable shortness of breath. No heart failure. 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 Gender Identity Not on file Sexual Orientation Not on file Last Filed Vital Signs Vital Sign Reading Time Taken Comments Blood Pressure 133/69 06/06/2018 3:54 PM CDT Pulse 61 06/06/2018 3:54 PM CDT Temperature 36.5 ??C (97.7 ??F) 06/06/2018 3:54 PM CD T Respiratory Rate 20 06/06/2018 3:54 PM CDT Oxygen Saturation 94% 06/06/2018 3:54 PM CDT Inhaled Oxygen Concentration - - Weight 77.1 kg (170 lb) 05/31/2018 1:04 AM CDT Height 182.9 cm (6') 05/31/2018 1:04 AM CDT Body Mass Index 23.06 05/31/2018 1:04 AM CDT Plan of Treatment Not on file Procedures Procedure Name Priority Date/Time Associated Diagnosis Comments CARDIOLOGY DOCUMENT SCAN Routine 07/29/2024 2:56 PM CDT from Last 3 Months Results * Cardiology Document Scan (07/29/2024 2:56 PM CDT) Anatomical Region Laterality Modality Other Joel Pulido MD CV CARDIAC SERVICES PROCEDURES F inal Result from Last 3 Months Insurance [facility] IDPA MEDICARE Advance Directives For more information, please contact: [phone] * Full Code (Latest Code Status on File) Date Activated Date Inactivated Comments 06/05/2018 4:43 PM 06/06/2018 7:06 PM Care Teams Flue Lining Dipper Relationship Specialty Start Date End Date Leoncio Kilpatrick MD [address] [place] [address] PCP - General 06/09/18
--- OUTSIDE RECORDS SUMMARY | 2024-10-21 23:05 | XMS_ITS | Encounter Summary ---
Author Organization [facility] Address [address] [place] [address] Care Team Providers Care Event Coordinator Marketing And Sales Name Role Phone Leoncio Kilpatrick MD Primary Care Provider [phone] Encounter Details Date Type Department Care Team (Late st Contact Info) Description 04/28/2022 Orders Only [facility] Cardiology [address] [place] [address] Jesse Schumacher MD [address] [place] [address] Social History Tobacco Use Types Packs/Day Years Used Date Smoking Tobacco: Former Alcohol Use Standard Drinks/Week Comments Yes 0 (1 standard drink = 0.6 oz pur e alcohol) 1OR 2 DAILY Sex and Gender Information Value Date Recorded Sex Assigned at Not on file 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 Gender Identity Not on file Sexual Orientation Not on file documented as of this encounter Plan of Treatment Not on file documented as of this encounter Procedures Procedure Name Priority Date/Time Associated Diagnosis Comments CARDIOLOGY DOCUMENT SCAN Routine 04/28/2022 documented in this encounter Results * Cardiology Document Scan (04/28/2022) Anatomical Region Laterality Modality Other Jesse Schumacher MD CV CARDIAC SERVICES PROCEDU RES Final Result documented in this encounter Visit Diagnoses Not on filedocumented in this encounter Care Teams Event Coordinator Marketing And Sales Relationship Specialty Start Date End Date Leoncio Kilpatrick MD [address] [place] [address] PCP - General 06/09/18 documented as of this encounter
--- OUTSIDE RECORDS SUMMARY | 2024-10-21 23:05 | XMS_ITS | Encounter Summary ---
Author Organization [facility] Medical [facility] Address [address] [place] [address] Care Team Providers Care Extension Service Supervisor Name Role Phone Leoncio Kilpatrick MD Primary Care Provider Encounter Details Date Type Department Care Team (Late st Contact Info) Description 11/02/2020 Orders Only [facility] Medical [facility] Cardiology [address] [place] [address] Destin Bob MD [address] [place] [address] Social History Tobacco Use Types Packs/Day Years Used Date Smoking Tobacco: Former Alcohol Use Standard Drinks/Week Comments Yes 0 (1 standard drink = 0.6 oz pur e alcohol) 1OR 2 DAILY Sex and Gender Information Value Date Recorded Sex Assigned at Not on file 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 Gender Identity Not on file Sexual Orientation Not on file documented as of this encounter Plan of Treatment Not on file documented as of this encounter Procedures Procedure Name Priority Date/Time Associated Diagnosis Comments CARDIOLOGY DOCUMENT SCAN Routine 11/02/2020 documented in this encounter Results * SCAN - CARDIOLOGY (11/02/2020) Anatomical Region Laterality Modality Other Destin Bob MD CV CARDIAC SERVICES ELIJAH RIVAS Final Result documented in this encounter Visit Diagnoses Not on filedocumented in this encounter Care Teams Extension Service Supervisor Relationship Specialty Start Date End Date Leoncio Kilpatrick MD [address] [place] [address] PCP - General 06/09/18 documented as of this encounter
--- OUTSIDE RECORDS SUMMARY | 2024-10-21 23:05 | XMS_ITS | Encounter Summary ---
Author Organization [facility] Medical [facility] Address [address] [place] [address] Care Team Providers Care Special Tax Auditor Name Role Phone Leoncio Kilpatrick MD Primary Care Provider [phone] Encounter Details Date Type Department Care Team (Late st Contact Info) Description 11/04/2020 Orders Only [facility] Cardiology [address] [place] [address] Master Eric MD [address] [place], [place] [id number] Social History Tobacco Use Types Packs/Day Years Used Date Smoking Tobacco: Former Alcohol Use Standard Drinks/Week Comments Yes 0 (1 standard drink = 0.6 oz pur e alcohol) 1OR 2 DAILY Sex and Gender Information Value Date Recorded Sex Assigned at Not on file 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 Gender Identity Not on file Sexual Orientation Not on file documented as of this encounter Plan of Treatment Not on file documented as of this encounter Procedures Procedure Name Priority Date/Time Associated Diagnosis Comments CARDIOLOGY DOCUMENT SCAN Routine 11/04/2020 documented in this encounter Results * SCAN - CARDIOLOGY (11/04/2020) Anatomical Region Laterality Modality Other us Master Eric MD CV CARDIAC SERVICES PROC EDURES Final Result documented in this encounter Visit Diagnoses Not on filedocumented in this encounter Care Teams Special Tax Auditor Relationship Specialty Start Date End Date Leoncio Kilpatrick MD [address] [place] [address] PCP - General 06/09/18 documented as of this encounter
--- OUTSIDE RECORDS SUMMARY | 2024-10-21 23:05 | XMS_ITS | Encounter Summary ---
Author Organization [facility] Medical [facility] Address [address] [place] [address] Care Team Providers Care Credit Union Teller Name Role Phone Leoncio Kilpatrick MD Primary Care Provider [phone] Encounter Details Date Type Department Care Team (Late st Contact Info) Description 06/20/2018 Orders Only [facility] [address] [place] [address] ProviderSotero MD [address] [place] [address] Social History Tobacco Use Types Packs/Day Years Used Date Smoking Tobacco: Former Alcohol Use Standard Drinks/Week Comments Yes 0 (1 standard drink = 0.6 oz pur e alcohol) 1OR 2 DAILY Sex and Gender Information Value Date Recorded Sex Assigned at Not on file 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 Gender Identity Not on file Sexual Orientation Not on file documented as of this encounter Plan of Treatment Not on file documented as of this encounter Procedures Procedure Name Priority Date/Time Associated Diagnosis Comments LIPID PANEL Routine 04/12/2017 documented in this encounter Results * Lipid panel (04/12/2017) SCRIBED Cholesterol, Total 135 <200 EXTERNAL LAB SCRIBED HDL 38 >40 EXTERNAL LAB SCRIBED LDL 64 <100 EXTERNAL LAB SCRIBED Triglycerides 195 <150 EXTERNAL LAB Blood specimen (specimen) Historical Provider LAB BLOOD ORDERABLES Edit ed Result - Final EXTERNAL LAB documented in this encounter Visit Diagnoses Not on filedocumented in this encounter Care Teams Credit Union Teller Relationship Specialty Start Date End Date Leoncio Kilpatrick MD [address] [place] [address] PCP - General 06/09/18 documented as of this encounter
--- OUTSIDE RECORDS SUMMARY | 2024-10-21 23:05 | XMS_ITS | Encounter Summary ---
Author Organization [facility] Healthcare Address [address] [place] [address] Care Team Providers Care Worm Farm Laborer Name Role Phone Leoncio Kilpatrick MD Primary Care Provider [phone] Encounter Details Date Type Department Care Team (Late st Contact Info) Description 08/04/[address] 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 Gender Identity Not on file Sexual Orientation Not on file documented as of this encounter Plan of Treatment Not on file documented as of this encounter Procedures Procedure Name Priority Date/Time Associated Diagnosis Comments CARDIOLOGY DOCUMENT SCAN Routine 07/29/2024 2:56 PM CDT documented in this encounter Results * Cardiology Document Scan (07/29/2024 2:56 PM CDT) Anatomical Region Laterality Modality Other Joel Pulido MD CV CARDIAC SERVICES PROCEDURES F inal Result documented in this encounter Visit Diagnoses Not on filedocumented in this encounter Care Teams Worm Farm Laborer Relationship Specialty Start Date End Date Leoncio Kilpatrick MD [address] [place] [address] PCP - General 06/09/18 documented as of this encounter
--- OUTSIDE RECORDS SUMMARY | 2024-10-21 23:05 | XMS_ITS | Encounter Summary ---
Author Organization [facility] Medical [facility] Address [address] [place] [address] Care Team Providers Care Sales Operations Associate Name Role Phone Leoncio Kilpatrick MD Primary Care Provider [phone] Encounter Details Date Type Department Care Team (Late st Contact Info) Description 06/09/2018 Telephone [facility] [address] [address] Angely Rowe MD [address] [facility] [address] [place] [address] Social History Tobacco Use Types Packs/Day Years Used Date Smoking Tobacco: Former Alcohol Use Standard Drinks/Week Comments Yes 0 (1 standard drink = 0.6 oz pur e alcohol) 1OR 2 DAILY Sex and Gender Information Value Date Recorded Sex Assigned at Not on file 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 Left message on patients voicemail requesting a call back to find out who his PCP is so we can update records. * Telephone Encounter - Katarina Hylton - 06/09/2018 9:26 AM CDT Skylar from Dr. Kilpatrick office calling to inform that pt is not a pt of Dr. Kilpatrick [phone] documented in this encounter Plan of Treatment Not on file documented as of this encounter Visit Diagnoses Not on filedocumented in this encounter Care Teams Sales Operations Associate Relationship Specialty Start Date End Date Leoncio Kilpatrick MD [address] [place] [address] PCP - General 06/09/18 documented as of this encounter
--- OUTSIDE RECORDS SUMMARY | 2024-10-21 23:05 | XMS_ITS | Encounter Summary ---
Author Organization [facility] Address [address] [place] [address] Care Team Providers Care Frame Maker Name Role Phone Leoncio Kilpatrick MD Primary Care Provider [phone] Encounter Details Date Type Department Care Team (Late st Contact Info) Description 06/28/2020 Orders Only [facility] Cardiology [address] [facility] [address] [place] [address] Destin Bob MD [address] [place] [address] Social History Tobacco Use Types Packs/Day Years Used Date Smoking Tobacco: Former Alcohol Use Standard Drinks/Week Comments Yes 0 (1 standard drink = 0.6 oz pur e alcohol) 1OR 2 DAILY Sex and Gender Information Value Date Recorded Sex Assigned at Not on file 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 Gender Identity Not on file Sexual Orientation Not on file documented as of this encounter Plan of Treatment Not on file documented as of this encounter Procedures Procedure Name Priority Date/Time Associated Diagnosis Comments CARDIOLOGY DOCUMENT SCAN Routine 06/28/2020 documented in this encounter Results * SCAN - CARDIOLOGY (06/28/2020) Anatomical Region Laterality Modality Other Destin Bob MD CV CARDIAC SERVICES ELIJAH RIVAS Final Result documented in this encounter Visit Diagnoses Not on filedocumented in this encounter Care Teams Frame Maker Relationship Specialty Start Date End Date Leoncio Kilpatrick MD [address] [place] [address] PCP - General 06/09/18 documented as of this encounter
--- OUTSIDE RECORDS SUMMARY | 2024-10-21 23:05 | XMS_ITS | Encounter Summary ---
Author Organization [facility] Address [address] [place] [address] Care Team Providers Care Bank Courier Name Role Phone Leoncio Kilpatrick MD Primary Care Provider [phone] Encounter Details Date Type Department Care Team (Late st Contact Info) Description 06/08/2021 Orders Only [facility] Cardiology [address] [place] [address] Min Lyon MD [address] [place] [address] [address] [place] [address] Social History Tobacco Use Types Packs/Day Years Used Date Smoking Tobacco: Former Alcohol Use Standard Drinks/Week Comments Yes 0 (1 standard drink = 0.6 oz pur e alcohol) 1OR 2 DAILY Sex and Gender Information Value Date Recorded Sex Assigned at Not on file Legal Sex Male 3:11 AM RN ELIGIBILITY Gender Identity Not on file Sexual Orientation Not on file documented as of this encounter Plan of Treatment Not on file documented as of this encounter Procedures Procedure Name Priority Date/Time Associated Diagnosis Comments CARDIOLOGY DOCUMENT SCAN Routine 06/08/2021 documented in this encounter Results * SCAN - CARDIOLOGY (06/08/2021) Anatomical Region Laterality Modality Other Min Lyon MD CV CARDIAC SERVICES PROC EDURES Final Result documented in this encounter Visit Diagnoses Not on filedocumented in this encounter Care Teams Bank Courier Relationship Specialty Start Date End Date Leoncio Kilpatrick MD [address] [place] [address] PCP - General 06/09/18 documented as of this encounter
--- OUTSIDE RECORDS SUMMARY | 2024-10-21 23:05 | XMS_ITS ---
Author Organization [facility] Address Unknown Allergies, Adverse Reactions, Alerts Substance Reaction Status Noted Date Resolved Date Niacin active 11/08/2021 Hydrocodone active 11/08/2021 Medications Medication Dose Frequency Directions Start Date End Denzel e Ipratropium-Albuterol Solution 0.5-2.5 (3) MG/3ML 1 1 vial inhale orally at bedtime for COPD 11/02/2022 Ipratropium-Albuterol Solution 0.5-2.5 (3) MG/3ML 1 1 vial inhale orally every 4 hours as needed for SOB 11/01/2022 amLODIPine Besylate Tablet 10 MG 1 {tbl} 24 h Give 1 tablet by mouth one time a day for HTN 11/02/2022 Atrovent HFA Aerosol Solution 17 MCG/ACT 2 8 h 2 puff inhale orally three times a day for COPD 11/02/2022 Atrovent HFA Aerosol Solution 17 MCG/ACT 2 2 puff inhale orally every 4 hours as needed for SOB 11/01/2022 TraMADol HCl Tablet 50 MG 1 {tbl} Give 1 tablet by mouth every 6 hours as needed for severe pain Non-Pharm Interventions-1=musi c, aromatherapy, light touch/massage2=Remin iscence, reality orientation, validation therapy3=exercise, activities4=1:1 interaction, pet therapy5=Reduced stimulation, quiet area 11/01/2022 Trelegy Ellipta Aerosol Powder Breath Activated 100-62.5-25 MCG/INH 1 24 h 1 puff inhale orally one time a day for COPD 11/02/2022 Aspirin Tablet Delayed Release 325 MG 1 {tbl} 24 h Give 1 tablet by mouth one time a day for Anticougulant 11/02/2022 Cholecalciferol Tablet 1000 UNIT 1 {tbl} 24 h Give 1 tablet by mouth one time a day for supplement 11/02/2022 Citroma Solution 1.745 GM/30ML 296 mL Give 296 ml by mouth as needed for constipation In AM if no results after enema. If no results within 1 hour of completion of bowel protocol, contact MD immediately for further orders. 11/01/2022 Simvastatin Tablet 10 MG 1 {tbl} Give 1 tablet by mouth at bedtime for HLD 11/02/2022 TraZODone HCl Tablet 50 MG 1 {tbl} Give 1 tablet by mouth at bedtime for depression HS 11/02/2022 Cyanocobalamin Tablet 500 MCG 1 {tbl} 24 h Give 1 tablet by mouth one time a day for supplement 11/02/2022 Fleet Enema 1 Insert 1 applic ation rectally as needed for for constipation If no results 1 day after suppository. 11/01/2022 Milk of Magnesia Suspension 400 MG/5ML 30 mL Give 30 ml by mout h as needed for Constipation at bedtime if not BM in 3 days 11/01/2022 Bisacodyl Suppository 10 MG 1 Insert 1 suppository rectally as needed for for constipation daily if no results for MOM 11/01/2022 Folic Acid Tablet 1 MG 1 {tbl} 24 h Give 1 tablet by mouth one time a day for Supplement 11/02/2022 Acetaminophen Tablet 650 MG 1 {tbl} Give 1 tablet by mouth every 4 hours as needed for General Discomfort Non-Pharm Interventions-1=musi c, aromatherapy, light touch/massage2=Remin iscence,reality orientation, validation therapy3=exercise, activities4=1:1 interaction, pet therapy5=Reduced stimulation, quiet area 11/01/2022 predniSONE Tablet 2.5 MG 1 {tbl} 24 h Give 1 tablet by mouth one time a day related to CHRONIC OBSTRUCTIVE PULMONARY DISEASE, UNSPECIFIED (J44.9);CHRONIC RESPIRATORY FAILURE WITH HYPOXIA (J96.11) 11/02/2022 Furosemide Tablet 40 MG 1 {tbl} 24 h Give 1 tablet by mouth one time a day for CHF 11/02/2022 Lisinopril Tablet 2.5 MG 1 {tbl} 24 h Give 1 tablet by mouth one time a day for HTN 11/02/2022 Multivitamin Adult Tablet 1 {tbl} 24 h Give 1 tablet by mouth one time a day for supplement 11/02/2022 Potassium Chloride ER Tablet Extended Release 10 MEQ 1 {tbl} 24 h Give 1 tablet by mouth one time a day for supplement 11/02/2022 Minerin Creme Cream Apply to Bilateral arms, thighs topically every shift for Prophylaxis 11/30/2022 Benzonatate Oral Capsule 100 MG 1 {Capsule} Give 1 capsule by mouth every 8 hours as needed for Cough related to CHRONIC OBSTRUCTIVE PULMONARY DISEASE, UNSPECIFIED (J44.9) 02/11/2023 Claritin Oral Capsule 10 MG 1 {Capsule} Give 1 capsule by mouth every 24 hours as needed for Stuffy nose related to CHRONIC OBSTRUCTIVE PULMONARY DISEASE, UNSPECIFIED (J44.9) 02/11/2023 Hydrocortisone External Cream 1 % Apply to affected area topically every 8 hours as needed for Itching 02/12/2023 Sertraline HCl Tablet 50 MG 2 {tbl} Give 2 tablet by mouth at bedtime related to CHRONIC RESPIRATORY FAILURE WITH HYPOXIA (J96.11) 03/30/2023 Cetirizine HCl Oral Tablet 10 MG 1 {tbl} 24 h Give 1 tablet by mouth one time a day for allergies 04/30/2023 Gabapentin Capsule 300 MG 1 {Capsule} 8 h Give 1 capsule by mouth three times a day related to POLYNEUROPATHY, UNSPECIFIED (G62.9) 08/26/2023 Baclofen Tablet 5 mg Give 5 mg by mouth every 8 hours as needed for muscle spasms 08/26/2023 Medications Administered Medication Dose Frequency Status Start Date End Date Ipratropium-Albuterol Soluti on 0.5-2.5 (3) MG/3ML 1 10/13/2023 Ipratropium-Albuterol Soluti on 0.5-2.5 (3) MG/3ML 1 11/01/2022 amLODIPine Besylate Tablet 10 MG 1 {tbl} 24 h 10/12/2023 Atrovent HFA Aerosol Solutio n 17 MCG/ACT 2 8 h 10/13/2023 Atrovent HFA Aerosol Solutio n 17 MCG/ACT 2 11/01/2022 TraMADol HCl Tablet 50 MG 1 {tbl} 09/27 Trelegy Ellipta Aerosol Powd er Breath Activated 100-62.5-25 MCG/INH 1 24 h 09/27 Aspirin Tablet Delayed Relea se 325 MG 1 {tbl} 24 h 10/12/2023 Cholecalciferol Tablet 1000 UNIT 1 {tbl} 24 h 10/12/2023 Citroma Solution 1.745 GM/30ML 296 mL 11/01/2022 Simvastatin Tablet 10 MG 1 {tbl} 10/13 TraZODone HCl Tablet 50 MG 1 {tbl} Cyanocobalamin Tablet 500 MCG 1 {tbl} 24 h 10/12/2023 Fleet Enema 1 11/01/2022 Milk of Magnesia Suspension 400 MG/5ML 30 mL 11/01/2022 Bisacodyl Suppository 10 MG 1 Folic Acid Tablet 1 MG 1 {tbl} 24 h Acetaminophen Tablet 650 MG 1 {tbl} predniSONE Tablet 2.5 MG 1 {tbl} 24 h 10/12 Furosemide Tablet 40 MG 1 {tbl} 24 h 2022 Lisinopril Tablet 2.5 MG 1 {tbl} 24 h 10/12 Multivitamin Adult Tablet 1 {tbl} 24 h 09/27 Potassium Chloride ER Tablet Extended Release 10 MEQ 1 {tbl} 24 h 10/12/2023 Minerin Creme Cream 10/12/2023 Benzonatate Oral Capsule 100 MG 1 {Capsule} 09/17/2023 Claritin Oral Capsule 10 MG 1 {Capsule} 09/12/2023 Hydrocortisone External Cream 1 % 02/12/2023 Sertraline HCl Tablet 50 MG 2 {tbl} Cetirizine HCl Oral Tablet 10 MG 1 {tbl} 24 h 10/12/2023 Gabapentin Capsule 300 MG 1 {Capsule} 8 h Baclofen Tablet 5 mg 10/02/2023 Problems Problem Status Start Date End Date CHRONIC OBSTRUCTIVE PULMONAR Y DISEASE, UNSPECIFIED (Primary) (J44.9 - ICD-10-CM) ACTIVE 11/01/2022 CHRONIC OBSTRUCTIVE PULMONAR Y DISEASE, UNSPECIFIED (Primary) (J44.9 - ICD-10-CM) RESOLVED 11/09/2021 11/01/2022 POLYNEUROPATHY, UNSPECIFIED (G62.9 - ICD-10-CM) ACTIVE 11/01/2022 UNSPECIFIED FRACTURE OF THE LOWER END OF LEFT RADIUS, SUBSEQUENT ENCOUNTER FOR CLOSED FRACTURE WITH ROUTINE HEALING (S52.502D - ICD-10-CM) RESOLVED 11/08/2021 ESSENTIAL (PRIMARY) HYPERTENSION (I10 - ICD-10-CM) ACT DIOGO 11/01/2022 CHRONIC RESPIRATORY FAILURE WITH HYPOXIA (J96.11 - ICD-10-CM) RESOLVED 11/08/2021 11/01/2022 CHRONIC RESPIRATORY FAILURE WITH HYPOXIA (J96.11 - ICD-10-CM) ACTIVE 11/01/2022 TYPE 2 DIABETES MELLITUS WIT HOUT COMPLICATIONS (E11.9 - ICD-10-CM) RESOLVED 11/08/2021 11/01/2022 PERSONAL HISTORY OF TRANSIEN T ISCHEMIC ATTACK (TIA), 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) ACTIVE 11/01/2022 HEART FAILURE, UNSPECIFIED (I50.9 - ICD-10-CM) RESOLVE D 11/08/2021 11/01/2022 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 - ICD-10-CM) ACTIVE 11/01/2022 ACUTE KIDNEY FAILURE, UNSPECIFIED (N17.9 - ICD-10-CM) RESOLVED 11/08/2021 11/01/2022 HEART FAILURE, UNSPECIFIED (I50.9 - ICD-10-CM) ACTIVE 11/01/2022 POLYNEUROPATHY, UNSPECIFIED (G62.9 - ICD-10-CM) RESOLV ED 11/08/2021 11/01/2022 HISTORY OF FALLING (Z91.81 - ICD-10-CM) ACTIVE 0 11/01/2022 ESSENTIAL (PRIMARY) HYPERTENSION (I10 - ICD-10-CM) RES OLVED 11/08/2021 11/01/2022 GENERALIZED ANXIETY DISORDER (F41.1 - ICD-10-CM) ACTIV E 11/01/2022 HYPO-OSMOLALITY AND HYPONATREMIA (E87.1 - ICD-10-CM) R ESOLVED 11/08/2021 11/01/2022 BENIGN PROSTATIC HYPERPLASIA WITHOUT LOWER URINARY TRACT SYMPTOMS (N40.0 - ICD-10-CM) ACTIVE 11/01/2022 PNEUMONIA, UNSPECIFIED ORGANISM (J18.9 - ICD-10-CM) RE SOLVED 11/08/2021 11/01/2022 ANEMIA, UNSPECIFIED (D64.9 - ICD-10-CM) ACTIVE 0 11/01/2022 UNSPECIFIED FALL, SUBSEQUENT ENCOUNTER (W19.XXXD - ICD-10-CM) RESOLVED 11/08/2021 11/01/2022 UNSPECIFIED FALL, INITIAL EN COUNTER (W19.XXXA - ICD-10-CM) RESOLVED 11/08/2021 11/08/2021 MAJOR DEPRESSIVE DISORDER, R ECURRENT, MODERATE (F33.1 - ICD-10-CM) ACTIVE 11/01/2022 CHRONIC OBSTRUCTIVE PULMONAR Y DISEASE WITH (ACUTE) EXACERBATION (J44.1 - ICD-10-CM) RESOLVED 12/31/2021 023 OTHER ABNORMALITIES OF GAIT AND MOBILITY (R26.89 - ICD-10-CM) RESOLVED 04/17/2023 05/31/2023 OTHER ABNORMALITIES OF GAIT AND MOBILITY (R26.89 - ICD-10-CM) RESOLVED 11/07/2022 02/18/2023 MUSCLE WEAKNESS (GENERALIZED) (M62.81 - ICD-10-CM) RES OLVED 11/08/2021 11/01/2022 OTHER LACK OF COORDINATION (R27.8 - ICD-10-CM) RESOLVE D 11/08/2021 11/01/2022 COGNITIVE COMMUNICATION DEFICIT (R41.841 - ICD-10-CM) RESOLVED 11/08/2021 11/01/2022 FAMILIAL HYPERCHOLESTEROLEMIA (E78.01 - ICD-10-CM) RES OLVED 12/31/2021 11/01/2022 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 - ICD-10-CM) RESOLVED 11/08/2021 11/01/2022 PERSONAL HISTORY OF COVID-19 (Z86.16 - ICD-10-CM) ACTI VE 02/03/2023 FAMILIAL HYPERCHOLESTEROLEMIA (E78.01 - ICD-10-CM) ACT DIOGO 11/01/2022 PURE HYPERCHOLESTEROLEMIA, U NSPECIFIED (E78.00 - ICD-10-CM) RESOLVED 12/31/2021 11/01/2022 DYSPNEA, UNSPECIFIED (R06.00 - ICD-10-CM) RESOLVED 12/31/2021 11/01/2022 ANXIETY DISORDER, UNSPECIFIED (F41.9 - ICD-10-CM) RESO LVED 11/08/2021 11/01/2022 TOBACCO USE (Z72.0 - ICD-10-CM) RESOLVED 11/01/2022 PERSONAL HISTORY OF TRANSIEN T ISCHEMIC ATTACK (TIA), 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) RESOLVED 11/08/2021 11/01/2022 ELEVATED WHITE BLOOD CELL CO UNT, UNSPECIFIED (D72.829 - ICD-10-CM) RESOLVED 12/31/2021 11/01/2022 FURUNCLE, UNSPECIFIED (L02.92 - ICD-10-CM) RESOLVED 11/15/2021 11/01/2022 BENIGN PROSTATIC HYPERPLASIA WITHOUT LOWER URINARY TRACT SYMPTOMS (N40.0 - ICD-10-CM) RESOLVED 11/08/202111/01 ANEMIA, UNSPECIFIED (D64.9 - ICD-10-CM) RESOLVED 0 11/08/2021 11/01/2022 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 FAILURE AND STAGE 1 THROUGH STAGE 4 CHRONIC KIDNEY DISEASE, OR UNSPECIFIED CHRONIC KIDNEY DISEASE (I13.0 - ICD-10-CM) ACTIVE 09/22/2023 COVID-19 (U07.1 - ICD-10-CM) RESOLVED 01/25/2023 02/03/2023 MAJOR DEPRESSIVE DISORDER, R ECURRENT, UNSPECIFIED (F33.9 - ICD-10-CM) RESOLVED 07/20/2022 11/01/2022 VITAMIN B12 DEFICIENCY ANEMI A, UNSPECIFIED (D51.9 - ICD-10-CM) RESOLVED 07/13/2022 11/01/2022 VITAMIN D DEFICIENCY, UNSPECIFIED (E55.9 - ICD-10-CM) RESOLVED 07/13/2022 11/01/2022 BREAKDOWN (MECHANICAL) OF ES OPHAGEAL ANTI-REFLUX DEVICE, INITIAL ENCOUNTER (T85.511A - ICD-10-CM) RESOLVED 01/03/2022 11/01/2022 Results * CBC W/DIFF Performed by: [place] [address] [facility], [address] [facility] [address] Component Value Range Date HEMOGLOBIN 9.4 g/dL 14.0-18.0 09/18/2023 06:5 7 pm EST * CMP-COMPREHENSIVE METABOLIC PNL Performed by: [address], [place] [id number] Component Value Range Date POTASSIUM 5.2 mEq/L 3.5-5.3 09/18/2023 06:5 7 pm EST SODIUM 141 mEq/L 136-145 09/18/2023 06:5 7 pm EST BUN (UREA NITROGEN) 42 mg/dL 7-25 09/18/20 23 06:57 pm EST CARBON DIOXIDE (CO2) 23 mEq/L 21-33 023 06:57 pm EST CHLORIDE 108 mEq/L 98-110 09/18/2023 06:5 7 pm EST * CBC W/DIFF Performed by: [address], [place] [address] Component Value Range Date RBC 3.17 M/cmm 4.00-6.60 09/18/2023 06:5 7 pm EST MCHC 32.7 g/dL 31.0-36.5 09/18/2023 06:5 7 pm EST MCH 29.8 pg 26.0-35.0 09/18/2023 06:5 7 pm EST HEMATOCRIT 28.9 % 42.0-54.0 09/18/2023 06:5 7 pm EST WBC 10.5 K/cmm 4.5-10.8 09/18/2023 06:5 7 pm EST * CMP-COMPREHENSIVE METABOLIC PNL Performed by: [address], [place] [address] Component Value Range Date ALT (SGPT) 13 IU/L 4-55 09/18/2023 06:5 7 pm EST * CBC W/DIFF Performed by: [address], [place] [id number] Component Value Range Date PLATELET 180 K/cmm 150-450 09/18/2023 06:5 7 pm EST * CMP-COMPREHENSIVE METABOLIC PNL Performed by: [address], [place] [address] Component Value Range Date AST (SGOT) 27 IU/L 4-40 09/18/2023 06:5 7 pm EST ALBUMIN 3.7 g/dL 3.5-5.5 09/18/2023 06:5 7 pm EST PROTEIN, TOTAL 5.8 g/dL 6.0-8.3 09/18/2023 06 :57 pm EST ALKALINE PHOS 96 IU/L 34-136 09/18/2023 06: 57 pm EST * CBC W/DIFF Performed by: [address], [place] [id number] Component Value Range Date RDW 14.8 % 11.0-16.0 09/18/2023 06:5 7 pm EST NEUTROPHILS 72.9 % 40.0-80.0 09/18/2023 06:5 7 pm EST BASO (ABSOLUTE) 0.10 K/uL 0.00-0.30 09/18/2023 0 6:57 pm EST * CMP-COMPREHENSIVE METABOLIC PNL Performed by: [address], [place] [id number] Component Value Range Date UHQ-UUB-GTTWDJA 25 mL/min/1.73 m2 >60 09/18/2023 06:57 pm EST GFR- 31 mL/min/1.73 m2 >60 06:57 pm EST * CBC W/DIFF Performed by: [address], [place] [id number] Component Value Range Date MCV 91.0 fL 80.0-100.0 09/18/2023 06:5 7 pm EST LYMPHS (ABSOLUTE) 1.60 K/uL 0.90-5.50 09/18/2023 06:57 pm EST MONOCYTES 7.2 % 2.0-12.0 09/18/2023 06:5 7 pm EST LYMPHS 15.6 % 13.0-48.0 09/18/2023 06:5 7 pm EST BASO 0.7 % 0.0-2.0 09/18/2023 06:5 7 pm EST EOS 3.6 % 0.0-8.0 09/18/2023 06:5 7 pm EST EOS (ABSOLUTE) 0.40 K/uL 0.20-0.80 09/18/2023 06 :57 pm EST NEUTS (ABSOLUTE) 7.70 K/uL 1.50-7.60 09/18/2023 06:57 pm EST * CMP-COMPREHENSIVE METABOLIC PNL Performed by: [address], [address] [address] Component Value Range Date BUN/CREATININE RATIO 17 6-25 023 06:57 pm EST * CBC W/DIFF Performed by: [address], [address] [address] Component Value Range Date MONOCYTES (ABSOLUTE) 0.80 K/uL 0.15-1.10 023 06:57 pm EST * CMP-COMPREHENSIVE METABOLIC PNL Performed by: [address], [address] [id number] Component Value Range Date A/G RATIO 1.8 0.8-2.0 09/18/2023 06:5 7 pm EST * GLYCO-HGBA1C Performed by: [address], [address] [address] Component Value Range Date GLYCOHEMOGLOBIN-HGBA1C 6.0 % 4.1-6.1 09/18 06:57 pm EST * Individual Tests: CMP-COMPREHENSIVE METABOLIC PNL / LIPID PROFILE w/calc LDL / GLYCO-HGBA1C / IRON / CBC W/DIFF / FOLATE (FOLIC ACID) / VITAMIN B12 / B- NATRIURETIC PEP (BNP) / TSH 3-UL / T4, FREE / VITAMIN D 25-OH TOTAL Performed by: [address], [address] [address] Component Value Range Date TSH 3-UL 2.729 uIU/mL 0.340-5.500 09/18/2023 06:5 7 pm EST * CBC W/DIFF Performed by: [address], [address] [address] Component Value Range Date MPV 8.3 fL 6.5-12.0 09/18/2023 06:5 7 pm EST * Individual Tests: CMP-COMPREHENSIVE METABOLIC PNL / LIPID PROFILE w/calc LDL / GLYCO-HGBA1C / IRON / CBC W/DIFF / FOLATE (FOLIC ACID) / VITAMIN B12 / B- NATRIURETIC PEP (BNP) / TSH 3-UL / T4, FREE / VITAMIN D 25-OH TOTAL Performed by: [address], [place] [id number] Component Value Range Date B-NATRIURETIC PEP (BNP) 273 pg/mL 0-100 08/29 06:57 pm EST * CBC W/DIFF Performed by: [address], [place] [address] Component Value Range Date NUCLEATED RBC 0.2 NRBC/100 WBC <1.0 09/18/2023 06:57 pm EST * CMP-COMPREHENSIVE METABOLIC PNL Performed by: [address], [place] [address] Component Value Range Date CREATININE 2.5 mg/dL 0.7-1.3 09/18/2023 06:5 7 pm EST GLUCOSE 67 mg/dL 09/18/2023 06:5 7 pm EST CALCIUM 8.0 mg/dL 8.6-10.3 09/18/2023 06:5 7 pm EST BILIRUBIN, TOTAL 0.3 mg/dL 0.2-1.2 09/18/2023 06:57 pm EST * LIPID PROFILE w/calc LDL Performed by: [address], [place] [address] Component Value Range Date CHOLESTEROL 101 mg/dL <200 09/18/2023 06:5 7 pm EST TRIGLYCERIDE 147 mg/dL <150 09/18/2023 06:5 7 pm EST HDL 36 mg/dL >40 09/18/2023 06:5 7 pm EST LDL CALCULATED 36 mg/dL <100 09/18/2023 06 :57 pm EST * Individual Tests: CMP-COMPREHENSIVE METABOLIC PNL / LIPID PROFILE w/calc LDL / GLYCO-HGBA1C / IRON / CBC W/DIFF / FOLATE (FOLIC ACID) / VITAMIN B12 / B- NATRIURETIC PEP (BNP) / TSH 3-UL / T4, FREE / VITAMIN D 25-OH TOTAL Performed by: [address], [place] [address] Component Value Range Date T4, FREE 0.71 ng/dL 0.6-1.7 09/18/2023 06:5 7 pm EST * LIPID PROFILE w/calc LDL Performed by: [address], [place] [id number] Component Value Range Date LDLc/HDL RATIO 1.0 <4:1 09/18/2023 06 :57 pm EST * Individual Tests: CMP-COMPREHENSIVE METABOLIC PNL / LIPID PROFILE w/calc LDL / GLYCO-HGBA1C / IRON / CBC W/DIFF / FOLATE (FOLIC ACID) / VITAMIN B12 / B- NATRIURETIC PEP (BNP) / TSH 3-UL / T4, FREE / VITAMIN D 25-OH TOTAL Performed by: [address], [place] [address] Component Value Range Date IRON 66 ug/dL 35-180 09/18/2023 06:5 7 pm EST VITAMIN B12 546 pg/mL 211-911 09/18/2023 06:5 7 pm EST * GLYCO-HGBA1C Performed by: [address], [place] [address] Component Value Range Date eAG (Mean Glucose) 126 mg/dL <136 06:57 pm EST * LIPID PROFILE w/calc LDL Performed by: [address], [place] [address] Component Value Range Date VLDLc 29 mg/dL 5-40 09/18/2023 06:5 7 pm EST * Individual Tests: CMP-COMPREHENSIVE METABOLIC PNL / LIPID PROFILE w/calc LDL / GLYCO-HGBA1C / IRON / CBC W/DIFF / FOLATE (FOLIC ACID) / VITAMIN B12 / B- NATRIURETIC PEP (BNP) / TSH 3-UL / T4, FREE / VITAMIN D 25-OH TOTAL Performed by: [address], [place] [address] Component Value Range Date FOLATE (FOLIC ACID) >23.5 ng/mL >5.4 09/18/20 23 06:57 pm EST VITAMIN D 25-OH TOTAL 30 ng/mL 30-100 2022 06:57 pm EST * REFUSAL (FIRST ATTEMPT) Performed by: [address], [place] [address] Component Value Range Date REFUSAL (FIRST ATTEMPT) * 04/28 07:30 am EDT NOTIFIED NURSE(NAME): N/A 2022 07:30 am EDT LAB WILL REDRAW (DATE): NURSE WILL RESCHEDULE 05/20/2023 07:30 am EDT TESTS ORDERED: A1C 05/20/2023 07 :30 am EDT * Individual Tests: CMP-COMPREHENSIVE METABOLIC PNL / LIPID PROFILE w/calc LDL / MAGNESIUM / GLYCO-HGBA1C / CBC W/DIFF / FOLATE (FOLIC ACID) / VITAMIN B12 / B- NATRIURETIC PEP (BNP) / TSH 3-UL / VITAMIND 25-OH TOTAL / PREALBUMIN Performed by: [address], [place] [address] Component Value Range Date FOLIC ACID >22.8 SEE BELOW 07/10/2022 07:2 3 pm EDT VITAMIN D, 25-OH TOTAL 22 SEE BELOW 07/10 07:23 pm EDT * CBC W/DIFF Performed by: [address], [address] [id number] Component Value Range Date HYPOCHROMASIA 1+ NEGATIVE 07/10/2022 07: 23 pm EDT * Individual Tests: CMP-COMPREHENSIVE METABOLIC PNL / LIPID PROFILE w/calc LDL / MAGNESIUM / GLYCO-HGBA1C / CBC W/DIFF / FOLATE (FOLIC ACID) / VITAMIN B12 / B- NATRIURETIC PEP (BNP) / TSH 3-UL / VITAMIND 25-OH TOTAL / PREALBUMIN Performed by: [address], [address] [id number] Component Value Range Date MAGNESIUM 2.1 mg/dL 1.5-2.5 07/10/2022 07:2 3 pm EDT * LIPID PROFILE w/calc LDL Performed by: [address], [place] [id number] Component Value Range Date VLDLc 43 mg/dL 5-40 07/10/2022 07:2 3 pm EDT * GLYCO-HGBA1C Performed by: [address], [place] [id number] Component Value Range Date eAG (Mean Glucose) 123 mg/dL <136 07:23 pm EDT * Individual Tests: CMP-COMPREHENSIVE METABOLIC PNL / LIPID PROFILE w/calc LDL / MAGNESIUM / GLYCO-HGBA1C / CBC W/DIFF / FOLATE (FOLIC ACID) / VITAMIN B12 / B- NATRIURETIC PEP (BNP) / TSH 3-UL / VITAMIND 25-OH TOTAL / PREALBUMIN Performed by: [address], [place] [address] Component Value Range Date VITAMIN B12 176 pg/mL 211-911 07/10/2022 07:2 3 pm EDT * LIPID PROFILE w/calc LDL Performed by: [address], [place] [address] Component Value Range Date LDLc/HDL RATIO 1.3 <4:1 07/10/2022 07 :23 pm EDT HDL 39 mg/dL >40 07/10/2022 07:2 3 pm EDT * CMP-COMPREHENSIVE METABOLIC PNL Performed by: [address], [place] [address] Component Value Range Date BILIRUBIN, TOTAL 0.4 mg/dL 0.2-1.2 07/10/2022 07:23 pm EDT * LIPID PROFILE w/calc LDL Performed by: [address], [place] [address] Component Value Range Date TRIGLYCERIDE 213 mg/dL <150 07/10/2022 07:2 3 pm EDT LDL CALCULATED 51 mg/dL <100 07/10/2022 07 :23 pm EDT CHOLESTEROL 133 mg/dL <200 07/10/2022 07:2 3 pm EDT * CMP-COMPREHENSIVE METABOLIC PNL Performed by: [address], [place] [address] Component Value Range Date CALCIUM 8.4 mg/dL 8.6-10.3mg/dL 07/10/2022 07: 23 pm EDT CREATININE 1.1 mg/dL 0.7-1.3mg/dL 07/10/2022 07:2 3 pm EDT * CBC W/DIFF Performed by: [address], [place] [address] Component Value Range Date NUCLEATED RBC 0.2 NRBC/100 WBC <1.0 07/10/2022 07:23 pm EDT * CMP-COMPREHENSIVE METABOLIC PNL Performed by: [address], [place] [id number] Component Value Range Date GLUCOSE 68 07/10/2022 07:2 3 pm EDT * Individual Tests: CMP-COMPREHENSIVE METABOLIC PNL / LIPID PROFILE w/calc LDL / MAGNESIUM / GLYCO-HGBA1C / CBC W/DIFF / FOLATE (FOLIC ACID) / VITAMIN B12 / B- NATRIURETIC PEP (BNP) / TSH 3-UL / VITAMIND 25-OH TOTAL / PREALBUMIN Performed by: [address], [address] [id number] Component Value Range Date PREALBUMIN 23 mg/dL 16-45 07/10/2022 07:2 3 pm EDT B-NATRIURETIC PEP (BNP) 168 pg/mL 0-100 06/28 07:23 pm EDT * CBC W/DIFF Performed by: [address], [address] [id number] Component Value Range Date MPV 8.4 fL 6.5-12.0 07/10/2022 07:2 3 pm EDT * Individual Tests: CMP-COMPREHENSIVE METABOLIC PNL / LIPID PROFILE w/calc LDL / MAGNESIUM / GLYCO-HGBA1C / CBC W/DIFF / FOLATE (FOLIC ACID) / VITAMIN B12 / B- NATRIURETIC PEP (BNP) / TSH 3-UL / VITAMIND 25-OH TOTAL / PREALBUMIN Performed by: [address], [address] [id number] Component Value Range Date TSH 3-UL 1.895 uIU/mL 0.340-5.600 07/10/2022 07:2 3 pm EDT * GLYCO-HGBA1C Performed by: [address], [address] [id number] Component Value Range Date GLYCOHEMOGLOBIN-HGBA1C 5.9 % 4.1-6.1 07/10 07:23 pm EDT * CMP-COMPREHENSIVE METABOLIC PNL Performed by: [address], [address] [id number] Component Value Range Date A/G RATIO 1.4 0.8-2.0 07/10/2022 07:2 3 pm EDT * CBC W/DIFF Performed by: [address], [place] [id number] Component Value Range Date MONOCYTES (ABSOLUTE) 1.00 K/uL 0.15-1.10 07:23 pm EDT * CMP-COMPREHENSIVE METABOLIC PNL Performed by: [address], [place] [id number] Component Value Range Date BUN/CREATININE RATIO 17 6-25 022 07:23 pm EDT * CBC W/DIFF Performed by: [address], [place] [id number] Component Value Range Date NEUTS (ABSOLUTE) 7.80 K/uL 1.50-7.60 07/10/2022 07:23 pm EDT EOS (ABSOLUTE) 0.30 K/uL 0.20-0.80 07/10/2022 07 :23 pm EDT BASO 0.8 % 0.0-2.0 07/10/2022 07:2 3 pm EDT MONOCYTES 9.6 % 2.0-12.0 07/10/2022 07:2 3 pm EDT EOS 2.4 % 0.0-8.0 07/10/2022 07:2 3 pm EDT LYMPHS 14.6 % 13.0-48.0 07/10/2022 07:2 3 pm EDT MCV 81.9 fL 80.0-100.0 07/10/2022 07:2 3 pm EDT LYMPHS (ABSOLUTE) 1.60 K/uL 0.90-5.50 07/10/2022 07:23 pm EDT * CMP-COMPREHENSIVE METABOLIC PNL Performed by: [address], [place] [id number] Component Value Range Date TQG-NFV-ONOPVCL 65 mL/min/1.73 m2 >60 07/10/2022 07:23 pm EDT GFR- 79 mL/min/1.73 m2 >60 07:23 pm EDT * CBC W/DIFF Performed by: [address], [place] [id number] Component Value Range Date NEUTROPHILS 72.6 % 40.0-80.0 07/10/2022 07:2 3 pm EDT BASO (ABSOLUTE) 0.10 K/uL 0.00-0.30 07/10/2022 0 7:23 pm EDT RDW 15.7 % 11.0-16.0 07/10/2022 07:2 3 pm EDT * CMP-COMPREHENSIVE METABOLIC PNL Performed by: [address], [place] [id number] Component Value Range Date PROTEIN, TOTAL 5.9 g/dL 6.0-8.3 07/10/2022 07 :23 pm EDT ALBUMIN 3.4 g/dL 3.5-5.5 07/10/2022 07:2 3 pm EDT ALKALINE PHOS 111 IU/L 34-136 07/10/2022 07: 23 pm EDT AST (SGOT) 21 IU/L 4-40 07/10/2022 07:2 3 pm EDT * CBC W/DIFF Performed by: [address], [place] [id number] Component Value Range Date PLATELET 243 K/cmm 150-450 07/10/2022 07:2 3 pm EDT * CMP-COMPREHENSIVE METABOLIC PNL Performed by: [address], [address] [id number] Component Value Range Date ALT (SGPT) 11 IU/L 4-55 07/10/2022 07:2 3 pm EDT * CBC W/DIFF Performed by: [address], [place] [id number] Component Value Range Date WBC 10.8 K/cmm 4.5-10.8 07/10/2022 07:2 3 pm EDT HEMATOCRIT 38.4 % 42.0-54.0 07/10/2022 07:2 3 pm EDT MCH 25.9 pg 26.0-35.0 07/10/2022 07:2 3 pm EDT MCHC 31.7 g/dL 31.0-36.5 07/10/2022 07:2 3 pm EDT RBC 4.69 M/cmm 4.00-6.60 07/10/2022 07:2 3 pm EDT * CMP-COMPREHENSIVE METABOLIC PNL Performed by: [address], [place] [id number] Component Value Range Date CHLORIDE 99 mEq/L 98-110 07/10/2022 07:2 3 pm EDT CARBON DIOXIDE (CO2) 31 mEq/L 21-33 022 07:23 pm EDT BUN (UREA NITROGEN) 19 mg/dL 7-25 07/10/20 07:23 pm EDT SODIUM 141 mEq/L 135-145 07/10/2022 07:2 3 pm EDT POTASSIUM 4.1 mEq/L 3.5-5.3 07/10/2022 07:2 3 pm EDT * CBC W/DIFF Performed by: [address], [place] [id number] Component Value Range Date HEMOGLOBIN 12.2 g/dL 14.0-18.0 07/10/2022 07:2 3 pm EDT * CBC W/DIFF Performed by: [address], [place] [id number] Component Value Range Date HEMOGLOBIN 11.1 g/dL 14.0-18.0 06/18/2022 03:1 6 pm EDT * BASIC MET PNL INCL GFR (BMP) Performed by: [address], [place] [id number] Component Value Range Date POTASSIUM 3.4 mEq/L 3.5-5.3 06/18/2022 03:1 6 pm EDT SODIUM 142 mEq/L 135-145 06/18/2022 03:1 6 pm EDT BUN (UREA NITROGEN) 11 mg/dL 7-06/18/20 03:16 pm EDT CARBON DIOXIDE (CO2) 31 mEq/L 21-33 022 03:16 pm EDT CHLORIDE 99 mEq/L 98-110 06/18/2022 03:1 6 pm EDT * CBC W/DIFF Performed by: [address], [place] [id number] Component Value Range Date RBC 4.27 M/cmm 4.00-6.60 06/18/2022 03:1 6 pm EDT MCHC 32.1 g/dL 31.0-36.5 06/18/2022 03:1 6 pm EDT MCH 25.9 pg 26.0-35.0 06/18/2022 03:1 6 pm EDT HEMATOCRIT 34.5 % 42.0-54.0 06/18/2022 03:1 6 pm EDT WBC 10.3 K/cmm 4.5-10.8 06/18/2022 03:1 6 pm EDT PLATELET 221 K/cmm 150-450 06/18/2022 03:1 6 pm EDT RDW 15.8 % 11.0-16.0 06/18/2022 03:1 6 pm EDT BASO (ABSOLUTE) 0.10 K/uL 0.00-0.30 06/18/2022 0 3:16 pm EDT NEUTROPHILS 74.5 % 40.0-80.0 06/18/2022 03:1 6 pm EDT * BASIC MET PNL INCL GFR (BMP) Performed by: [address], [address] [id number] Component Value Range Date TXR-CUL-VSIHJEB 73 mL/min/1.73 m2 >60 06/18/2022 03:16 pm EDT GFR- 88 mL/min/1.73 m2 >60 03:16 pm EDT * CBC W/DIFF Performed by: [address], [address] [id number] Component Value Range Date LYMPHS (ABSOLUTE) 1.10 K/uL 0.90-5.50 06/18/2022 03:16 pm EDT MCV 80.7 fL 80.0-100.0 06/18/2022 03:1 6 pm EDT LYMPHS 11.0 % 13.0-48.0 06/18/2022 03:1 6 pm EDT MONOCYTES 10.6 % 2.0-12.0 06/18/2022 03:1 6 pm EDT BASO 0.6 % 0.0-2.0 06/18/2022 03:1 6 pm EDT EOS 3.3 % 0.0-8.0 06/18/2022 03:1 6 pm EDT EOS (ABSOLUTE) 0.30 K/uL 0.20-0.80 06/18/2022 03 :16 pm EDT NEUTS (ABSOLUTE) 7.70 K/uL 1.50-7.60 06/18/2022 03:16 pm EDT * BASIC MET PNL INCL GFR (BMP) Performed by: [address], [place] [id number] Component Value Range Date BUN/CREATININE RATIO 11 6-25 022 03:16 pm EDT * CBC W/DIFF Performed by: [address], [place] [id number] Component Value Range Date MONOCYTES (ABSOLUTE) 1.10 K/uL 0.15-1.10 022 03:16 pm EDT MPV 8.2 fL 6.5-12.0 06/18/2022 03:1 6 pm EDT NUCLEATED RBC 0.2 NRBC/100 WBC <1.0 06/18/2022 03:16 pm EDT * BASIC MET PNL INCL GFR (BMP) Performed by: [address], [place] [id number] Component Value Range Date GLUCOSE 61 06/18/2022 03:1 6 pm EDT CREATININE 1.0 mg/dL 0.7-1.3mg/dL 06/18/2022 03:1 6 pm EDT CALCIUM 8.5 mg/dL 8.6-10.3mg/dL 06/18/2022 03: 16 pm EDT * CBC W/DIFF Performed by: [address], [place] [id number] Component Value Range Date HYPOCHROMASIA 1+ NEGATIVE 06/18/2022 03: 16 pm EDT * CBC W/DIFF Performed by: [address], [place] [id number] Component Value Range Date ANISOCYTOSIS 1+ NEGATIVE 05/31/2022 01:4 0 pm EDT * CMP-COMPREHENSIVE METABOLIC PNL Performed by: [address], [place] [address] Component Value Range Date CALCIUM 8.3 mg/dL 8.6-10.3mg/dL 05/31/2022 01: 40 pm EDT BILIRUBIN, TOTAL 0.3 mg/dL 0.2-1.2 05/31/2022 01:40 pm EDT CREATININE 1.1 mg/dL 0.7-1.3mg/dL 05/31/2022 01:4 0 pm EDT GLUCOSE 58 05/31/2022 01:4 0 pm EDT * CBC W/DIFF Performed by: [address], [address] [id number] Component Value Range Date NUCLEATED RBC 0.2 NRBC/100 WBC <1.0 05/31/2022 01:40 pm EDT MPV 7.7 fL 6.5-12.0 05/31/2022 01:4 0 pm EDT MONOCYTES (ABSOLUTE) 0.80 K/uL 0.15-1.10 022 01:40 pm EDT * CMP-COMPREHENSIVE METABOLIC PNL Performed by: [address], [place] [id number] Component Value Range Date BUN/CREATININE RATIO 10 6-25 022 01:40 pm EDT * CBC W/DIFF Performed by: [address], [place] [id number] Component Value Range Date NEUTS (ABSOLUTE) 4.10 K/uL 1.50-7.60 05/31/2022 01:40 pm EDT * CMP-COMPREHENSIVE METABOLIC PNL Performed by: [address], [place] [id number] Component Value Range Date A/G RATIO 1.2 0.8-2.0 05/31/2022 01:4 0 pm EDT * Individual Tests: CMP-COMPREHENSIVE METABOLIC PNL / CBC W/DIFF / TSH 3-UL Performed by: [address], [place] [id number] Component Value Range Date TSH 3-UL 2.160 uIU/mL 0.340-5.600 05/31/2022 01:4 0 pm EDT * CBC W/DIFF Performed by: [address], [place] [id number] Component Value Range Date EOS (ABSOLUTE) 0.40 K/uL 0.20-0.80 05/31/2022 01 :40 pm EDT BASO 1.0 % 0.0-2.0 05/31/2022 01:4 0 pm EDT MONOCYTES 11.8 % 2.0-12.0 05/31/2022 01:4 0 pm EDT EOS 5.7 % 0.0-8.0 05/31/2022 01:4 0 pm EDT LYMPHS 18.3 % 13.0-48.0 05/31/2022 01:4 0 pm EDT MCV 83.6 fL 80.0-100.0 05/31/2022 01:4 0 pm EDT LYMPHS (ABSOLUTE) 1.20 K/uL 0.90-5.50 05/31/2022 01:40 pm EDT * CMP-COMPREHENSIVE METABOLIC PNL Performed by: [address], [place] [id number] Component Value Range Date UVU-GCV-XNOFALB 65 mL/min/1.73 m2 >60 05/31/2022 01:40 pm EDT GFR- 79 mL/min/1.73 m2 >60 01:40 pm EDT * CBC W/DIFF Performed by: [address], [address] [address] Component Value Range Date BASO (ABSOLUTE) 0.10 K/uL 0.00-0.30 05/31/2022 0 1:40 pm EDT NEUTROPHILS 63.2 % 40.0-80.0 05/31/2022 01:4 0 pm EDT RDW 16.4 % 11.0-16.0 05/31/2022 01:4 0 pm EDT PLATELET 229 K/cmm 150-450 05/31/2022 01:4 0 pm EDT * CMP-COMPREHENSIVE METABOLIC PNL Performed by: [address], [address] [id number] Component Value Range Date AST (SGOT) 16 IU/L 4-40 05/31/2022 01:4 0 pm EDT ALKALINE PHOS 97 IU/L 34-136 05/31/2022 01: 40 pm EDT ALBUMIN 3.0 g/dL 3.5-5.5 05/31/2022 01:4 0 pm EDT PROTEIN, TOTAL 5.5 g/dL 6.0-8.3 05/31/2022 01 :40 pm EDT * CBC W/DIFF Performed by: [address], [place] [address] Component Value Range Date WBC 6.5 K/cmm 4.5-10.8 05/31/2022 01:4 0 pm EDT * CMP-COMPREHENSIVE METABOLIC PNL Performed by: [address], [place] [address] Component Value Range Date ALT (SGPT) 6 IU/L 4-55 05/31/2022 01:4 0 pm EDT * CBC W/DIFF Performed by: [address], [place] [address] Component Value Range Date HEMATOCRIT 36.1 % 42.0-54.0 05/31/2022 01:4 0 pm EDT MCH 26.0 pg 26.0-35.0 05/31/2022 01:4 0 pm EDT MCHC 31.2 g/dL 31.0-36.5 05/31/2022 01:4 0 pm EDT RBC 4.32 M/cmm 4.00-6.60 05/31/2022 01:4 0 pm EDT * CMP-COMPREHENSIVE METABOLIC PNL Performed by: [address], [place] [address] Component Value Range Date CHLORIDE 95 mEq/L 98-110 05/31/2022 01:4 0 pm EDT CARBON DIOXIDE (CO2) 34 mEq/L 21-33 022 01:40 pm EDT BUN (UREA NITROGEN) 11 mg/dL 7-25 05/31/20 22 01:40 pm EDT SODIUM 140 mEq/L 135-145 05/31/2022 01:4 0 pm EDT POTASSIUM 3.5 mEq/L 3.5-5.3 05/31/2022 01:4 0 pm EDT * CBC W/DIFF Performed by: [address], [place] [address] Component Value Range Date HEMOGLOBIN 11.3 g/dL 14.0-18.0 05/31/2022 01:4 0 pm EDT * CBC W/DIFF Performed by: [address], [place] [id number] Component Value Range Date HEMOGLOBIN 13.1 g/dL 14.0-18.0 01/15/2022 06:2 6 pm EDT * CMP-COMPREHENSIVE METABOLIC PNL Performed by: [address], [place] [id number] Component Value Range Date POTASSIUM 3.9 mEq/L 3.5-5.3 01/15/2022 06:2 6 pm EDT SODIUM 139 mEq/L 135-145 01/15/2022 06:2 6 pm EDT BUN (UREA NITROGEN) 16 mg/dL 7-25 01/16/20 06:26 pm EDT CARBON DIOXIDE (CO2) 28 mEq/L 21-33 022 06:26 pm EDT CHLORIDE 102 mEq/L 98-110 01/15/2022 06:2 6 pm EDT * CBC W/DIFF Performed by: [address], [address] [id number] Component Value Range Date RBC 4.90 M/cmm 4.00-6.60 01/15/2022 06:2 6 pm EDT MCHC 30.8 g/dL 31.0-36.5 01/15/2022 06:2 6 pm EDT MCH 26.7 pg 26.0-35.0 01/15/2022 06:2 6 pm EDT HEMATOCRIT 42.3 % 42.0-54.0 01/15/2022 06:2 6 pm EDT WBC 8.2 K/cmm 4.5-10.8 01/15/2022 06:2 6 pm EDT * CMP-COMPREHENSIVE METABOLIC PNL Performed by: [address], [address] [id number] Component Value Range Date ALT (SGPT) 15 IU/L 4-55 01/15/2022 06:2 6 pm EDT PROTEIN, TOTAL 6.2 g/dL 6.0-8.3 01/15/2022 06 :26 pm EDT ALKALINE PHOS 84 IU/L 34-136 01/15/2022 06: 26 pm EDT * CBC W/DIFF Performed by: [address], [address] [id number] Component Value Range Date PLATELET 191 K/cmm 150-450 01/15/2022 06:2 6 pm EDT * CMP-COMPREHENSIVE METABOLIC PNL Performed by: [address], [place] [id number] Component Value Range Date AST (SGOT) 17 IU/L 4-40 01/15/2022 06:2 6 pm EDT ALBUMIN 3.6 g/dL 3.5-5.5 01/15/2022 06:2 6 pm EDT * CBC W/DIFF Performed by: [address], [place] [id number] Component Value Range Date RDW 17.7 % 11.0-16.0 01/15/2022 06:2 6 pm EDT NEUTROPHILS 72.2 % 40.0-80.0 01/15/2022 06:2 6 pm EDT BASO (ABSOLUTE) 0.10 K/uL 0.00-0.30 01/15/2022 0 6:26 pm EDT LYMPHS (ABSOLUTE) 1.40 K/uL 0.90-5.50 01/15/2022 06:26 pm EDT * CMP-COMPREHENSIVE METABOLIC PNL Performed by: [address], [place] [address] Component Value Range Date GFR- 79 mL/min/1.73 m2 >60 06:26 pm EDT PHK-PNR-KHMJKRD 65 mL/min/1.73 m2 >60 01/15/2022 06:26 pm EDT * CBC W/DIFF Performed by: [address], [place] [id number] Component Value Range Date MCV 86.5 fL 80.0-100.0 01/15/2022 06:2 6 pm EDT LYMPHS 17.0 % 13.0-48.0 01/15/2022 06:2 6 pm EDT EOS 1.3 % 0.0-8.0 01/15/2022 06:2 6 pm EDT MONOCYTES 8.8 % 2.0-12.0 01/15/2022 06:2 6 pm EDT BASO 0.7 % 0.0-2.0 01/15/2022 06:2 6 pm EDT EOS (ABSOLUTE) 0.10 K/uL 0.20-0.80 01/15/2022 06 :26 pm EDT * CMP-COMPREHENSIVE METABOLIC PNL Performed by: [address], [place] [id number] Component Value Range Date A/G RATIO 1.4 0.8-2.0 01/15/2022 06:2 6 pm EDT * CBC W/DIFF Performed by: [address], [place] [id number] Component Value Range Date NEUTS (ABSOLUTE) 5.90 K/uL 1.50-7.60 01/15/2022 06:26 pm EDT * CMP-COMPREHENSIVE METABOLIC PNL Performed by: [address], [place] [id number] Component Value Range Date BUN/CREATININE RATIO 15 6-25 022 06:26 pm EDT * CBC W/DIFF Performed by: [address], [place] [id number] Component Value Range Date MONOCYTES (ABSOLUTE) 0.70 K/uL 0.15-1.10 022 06:26 pm EDT MPV 7.9 fL 6.5-12.0 01/15/2022 06:2 6 pm EDT * CMP-COMPREHENSIVE METABOLIC PNL Performed by: [address], [place] [id number] Component Value Range Date GLUCOSE 70 01/15/2022 06:2 6 pm EDT CREATININE 1.1 mg/dL 0.7-1.3mg/dL 01/15/2022 06:2 6 pm EDT CALCIUM 8.6 mg/dL 8.6-10.3mg/dL 01/15/2022 06: 26 pm EDT BILIRUBIN, TOTAL 0.4 mg/dL 0.2-1.2 01/15/2022 06:26 pm EDT * CBC W/DIFF Performed by: [address], [place] [id number] Component Value Range Date ANISOCYTOSIS 1+ NEGATIVE 01/15/2022 06:2 6 pm EDT * CBC W/DIFF Performed by: [address], [place] [address] Component Value Range Date ANISOCYTOSIS 1+ NEGATIVE 01/10/2022 05:1 9 pm EDT * CMP-COMPREHENSIVE METABOLIC PNL Performed by: [address], [place] [address] Component Value Range Date BILIRUBIN, TOTAL 0.2 mg/dL 0.2-1.2 01/10/2022 05:19 pm EDT CALCIUM 7.9 mg/dL 8.6-10.3mg/dL 01/10/2022 05: 19 pm EDT CREATININE 1.2 mg/dL 0.7-1.3mg/dL 01/10/2022 05:1 9 pm EDT GLUCOSE 54 01/10/2022 05:1 9 pm EDT * CBC W/DIFF Performed by: [address], [place] [id number] Component Value Range Date MPV 7.8 fL 6.5-12.0 01/10/2022 05:1 9 pm EDT MONOCYTES (ABSOLUTE) 0.90 K/uL 0.15-1.10 022 05:19 pm EDT * CMP-COMPREHENSIVE METABOLIC PNL Performed by: [address], [place] [address] Component Value Range Date BUN/CREATININE RATIO 14 6-25 022 05:19 pm EDT * CBC W/DIFF Performed by: [address], [place] [id number] Component Value Range Date NEUTS (ABSOLUTE) 7.40 K/uL 1.50-7.60 01/10/2022 05:19 pm EDT * CMP-COMPREHENSIVE METABOLIC PNL Performed by: [address], [place] [address] Component Value Range Date A/G RATIO 1.4 0.8-2.0 01/10/2022 05:1 9 pm EDT * CBC W/DIFF Performed by: [address], [address] [id number] Component Value Range Date EOS (ABSOLUTE) 0.10 K/uL 0.20-0.80 01/10/2022 05 :19 pm EDT BASO 1.0 % 0.0-2.0 01/10/2022 05:1 9 pm EDT EOS 1.1 % 0.0-8.0 01/10/2022 05:1 9 pm EDT LYMPHS 19.7 % 13.0-48.0 01/10/2022 05:1 9 pm EDT MCV 84.8 fL 80.0-100.0 01/10/2022 05:1 9 pm EDT MONOCYTES 8.3 % 2.0-12.0 01/10/2022 05:1 9 pm EDT * CMP-COMPREHENSIVE METABOLIC PNL Performed by: [address], [place] [id number] Component Value Range Date GFR- 71 mL/min/1.73 m2 >60 05:19 pm EDT * CBC W/DIFF Performed by: [address], [place] [id number] Component Value Range Date LYMPHS (ABSOLUTE) 2.10 K/uL 0.90-5.50 01/10/2022 05:19 pm EDT RDW 17.7 % 11.0-16.0 01/10/2022 05:1 9 pm EDT BASO (ABSOLUTE) 0.10 K/uL 0.00-0.30 01/10/2022 0 5:19 pm EDT NEUTROPHILS 69.9 % 40.0-80.0 01/10/2022 05:1 9 pm EDT * CMP-COMPREHENSIVE METABOLIC PNL Performed by: [address], [place] [id number] Component Value Range Date ZGE-CUF-IALGYDS 59 mL/min/1.73 m2 >60 01/10/2022 05:19 pm EDT ALBUMIN 3.3 g/dL 3.5-5.5 01/10/2022 05:1 9 pm EDT AST (SGOT) 24 IU/L 4-40 01/10/2022 05:1 9 pm EDT ALKALINE PHOS 81 IU/L 34-136 01/10/2022 05: 19 pm EDT PROTEIN, TOTAL 5.6 g/dL 6.0-8.3 01/10/2022 05 :19 pm EDT * CBC W/DIFF Performed by: [address], [place] [id number] Component Value Range Date PLATELET 239 K/cmm 150-450 01/10/2022 05:1 9 pm EDT WBC 10.6 K/cmm 4.5-10.8 01/10/2022 05:1 9 pm EDT * CMP-COMPREHENSIVE METABOLIC PNL Performed by: [address], [place] [id number] Component Value Range Date ALT (SGPT) 25 IU/L 4-55 01/10/2022 05:1 9 pm EDT * CBC W/DIFF Performed by: [address], [place] [id number] Component Value Range Date MCH 27.4 pg 26.0-35.0 01/10/2022 05:1 9 pm EDT HEMATOCRIT 37.8 % 42.0-54.0 01/10/2022 05:1 9 pm EDT MCHC 32.2 g/dL 31.0-36.5 01/10/2022 05:1 9 pm EDT RBC 4.46 M/cmm 4.00-6.60 01/10/2022 05:1 9 pm EDT * CMP-COMPREHENSIVE METABOLIC PNL Performed by: [address], [place] [id number] Component Value Range Date CHLORIDE 100 mEq/L 98-110 01/10/2022 05:1 9 pm EDT CARBON DIOXIDE (CO2) 24 mEq/L 21-33 022 05:19 pm EDT BUN (UREA NITROGEN) 17 mg/dL 7-25 01/11/20 22 05:19 pm EDT SODIUM 140 mEq/L 135-145 01/10/2022 05:1 9 pm EDT POTASSIUM 3.8 mEq/L 3.5-5.3 01/10/2022 05:1 9 pm EDT * CBC W/DIFF Performed by: [address], [address] [id number] Component Value Range Date HEMOGLOBIN 12.2 g/dL 14.0-18.0 01/10/2022 05:1 9 pm EDT * CBC W/DIFF Performed by: [address], [address] [address] Component Value Range Date HEMOGLOBIN 13.0 g/dL 14.0-18.0 01/08/2022 04:1 9 pm EDT * CMP-COMPREHENSIVE METABOLIC PNL Performed by: [address], [address] [address] Component Value Range Date POTASSIUM 4.2 mEq/L 3.5-5.3 01/08/2022 04:1 9 pm EDT SODIUM 141 mEq/L 135-145 01/08/2022 04:1 9 pm EDT BUN (UREA NITROGEN) 15 mg/dL 7-25 01/09/20 22 04:19 pm EDT CARBON DIOXIDE (CO2) 26 mEq/L 21-33 022 04:19 pm EDT * CBC W/DIFF Performed by: [address], [address] [id number] Component Value Range Date RBC 4.88 M/cmm 4.00-6.60 01/08/2022 04:1 9 pm EDT * CMP-COMPREHENSIVE METABOLIC PNL Performed by: [address], [address] [address] Component Value Range Date CHLORIDE 99 mEq/L 98-110 01/08/2022 04:1 9 pm EDT * CBC W/DIFF Performed by: [address], [address] [address] Component Value Range Date MCHC 31.2 g/dL 31.0-36.5 01/08/2022 04:1 9 pm EDT MCH 26.6 pg 26.0-35.0 01/08/2022 04:1 9 pm EDT HEMATOCRIT 41.6 % 42.0-54.0 01/08/2022 04:1 9 pm EDT WBC 14.5 K/cmm 4.5-10.8 01/08/2022 04:1 9 pm EDT PLATELET 226 K/cmm 150-450 01/08/2022 04:1 9 pm EDT * CMP-COMPREHENSIVE METABOLIC PNL Performed by: [address], [place] [address] Component Value Range Date ALT (SGPT) 30 IU/L 4-55 01/08/2022 04:1 9 pm EDT PROTEIN, TOTAL 5.7 g/dL 6.0-8.3 01/08/2022 04 :19 pm EDT ALKALINE PHOS 85 IU/L 34-136 01/08/2022 04: 19 pm EDT ALBUMIN 3.3 g/dL 3.5-5.5 01/08/2022 04:1 9 pm EDT AST (SGOT) 27 IU/L 4-40 01/08/2022 04:1 9 pm EDT SGO-DTS-VBOUYUL 65 mL/min/1.73 m2 >60 01/08/2022 04:19 pm EDT * CBC W/DIFF Performed by: [address], [place] [address] Component Value Range Date BASO (ABSOLUTE) 0.10 K/uL 0.00-0.30 01/08/2022 0 4:19 pm EDT RDW 17.3 % 11.0-16.0 01/08/2022 04:1 9 pm EDT NEUTROPHILS 75.5 % 40.0-80.0 01/08/2022 04:1 9 pm EDT LYMPHS (ABSOLUTE) 2.20 K/uL 0.90-5.50 01/08/2022 04:19 pm EDT * CMP-COMPREHENSIVE METABOLIC PNL Performed by: [address], [address] [address] Component Value Range Date GFR- 79 mL/min/1.73 m2 >60 04:19 pm EDT * CBC W/DIFF Performed by: [address], [place] [address] Component Value Range Date MCV 85.2 fL 80.0-100.0 01/08/2022 04:1 9 pm EDT MONOCYTES 8.2 % 2.0-12.0 01/08/2022 04:1 9 pm EDT LYMPHS 15.4 % 13.0-48.0 01/08/2022 04:1 9 pm EDT EOS 0.5 % 0.0-8.0 01/08/2022 04:1 9 pm EDT BASO 0.4 % 0.0-2.0 01/08/2022 04:1 9 pm EDT EOS (ABSOLUTE) 0.10 K/uL 0.20-0.80 01/08/2022 04 :19 pm EDT NEUTS (ABSOLUTE) 10.90 K/uL 1.50-7.60 01/08/2022 04:19 pm EDT * CMP-COMPREHENSIVE METABOLIC PNL Performed by: [address], [place] [address] Component Value Range Date A/G RATIO 1.4 0.8-2.0 01/08/2022 04:1 9 pm EDT BUN/CREATININE RATIO 14 6-25 022 04:19 pm EDT * CBC W/DIFF Performed by: [address], [place] [id number] Component Value Range Date MONOCYTES (ABSOLUTE) 1.20 K/uL 0.15-1.10 022 04:19 pm EDT MPV 8.0 fL 6.5-12.0 01/08/2022 04:1 9 pm EDT * CMP-COMPREHENSIVE METABOLIC PNL Performed by: [address], [place] [id number] Component Value Range Date GLUCOSE 57 01/08/2022 04:1 9 pm EDT CREATININE 1.1 mg/dL 0.7-1.3mg/dL 01/08/2022 04:1 9 pm EDT CALCIUM 8.2 mg/dL 8.6-10.3mg/dL 01/08/2022 04: 19 pm EDT BILIRUBIN, TOTAL 0.3 mg/dL 0.2-1.2 01/08/2022 04:19 pm EDT * CBC W/DIFF Performed by: [address], [place] [id number] Component Value Range Date ANISOCYTOSIS 1+ NEGATIVE 01/08/2022 04:1 9 pm EDT * Individual Tests: CULTURE, URINE / UTO-SPECIMEN NOT COLLECTED Performed by: [address], [address] [id number] Component Value Range Date CULTURE, URINE . 01/06/2022 02 :18 pm EST * UTO-SPECIMEN NOT COLLECTED Performed by: [address], [address] [address] Component Value Range Date NOTIFIED NURSE(NAME): N/A 2021 02:18 pm EST LAB WILL REDRAW (DATE): CS TO CALL 12/26 02:18 pm EST TESTS ORDERED: UA 01/06/2022 02 :18 pm EST * CBC W/DIFF Performed by: [address], [address] [id number] Component Value Range Date ANISOCYTOSIS 1+ NEGATIVE 01/02/2022 09:0 7 pm EST * Individual Tests: CMP-COMPREHENSIVE METABOLIC PNL / MAGNESIUM / CBC W/DIFF / FOLATE (FOLIC ACID) / VITAMIN B12 / B-NATRIURETIC PEP (BNP) / TSH 3-UL Performed by: [address], [address] [id number] Component Value Range Date MAGNESIUM 1.7 mg/dL 1.5-2.5 01/02/2022 09:0 7 pm EST FOLIC ACID >23.6 SEE BELOW 01/02/2022 09:0 7 pm EST VITAMIN B12 337 pg/mL 211-911 01/02/2022 09:0 7 pm EST * CMP-COMPREHENSIVE METABOLIC PNL Performed by: [address], [address] [id number] Component Value Range Date BILIRUBIN, TOTAL 0.3 mg/dL 0.2-1.2 01/02/2022 09:07 pm EST CALCIUM 8.2 mg/dL 8.6-10.3mg/dL 01/02/2022 09: 07 pm EST CREATININE 1.1 mg/dL 0.7-1.3mg/dL 01/02/2022 09:0 7 pm EST GLUCOSE 107 01/02/2022 09:0 7 pm EST * Individual Tests: CMP-COMPREHENSIVE METABOLIC PNL / MAGNESIUM / CBC W/DIFF / FOLATE (FOLIC ACID) / VITAMIN B12 / B-NATRIURETIC PEP (BNP) / TSH 3-UL Performed by: [address], [place] [id number] Component Value Range Date B-NATRIURETIC PEP (BNP) 122 pg/mL 0-100 03/0 05/2022 09:07 pm EST * CBC W/DIFF Performed by: [address], [place] [address] Component Value Range Date NUCLEATED RBC 0.1 NRBC/100 WBC <1.0 01/02/2022 09:07 pm EST MPV 8.0 fL 6.5-12.0 01/02/2022 09:0 7 pm EST MONOCYTES (ABSOLUTE) 1.00 K/uL 0.15-1.10 022 09:07 pm EST * CMP-COMPREHENSIVE METABOLIC PNL Performed by: [address], [place] [address] Component Value Range Date BUN/CREATININE RATIO 38 6-25 022 09:07 pm EST A/G RATIO 1.4 0.8-2.0 01/02/2022 09:0 7 pm EST * Individual Tests: CMP-COMPREHENSIVE METABOLIC PNL / MAGNESIUM / CBC W/DIFF / FOLATE (FOLIC ACID) / VITAMIN B12 / B-NATRIURETIC PEP (BNP) / TSH 3-UL Performed by: [address], [place] [address] Component Value Range Date TSH 3-UL 1.103 uIU/mL 0.340-5.600 01/02/2022 09:0 7 pm EST * CBC W/DIFF Performed by: [address], [place] [address] Component Value Range Date NEUTS (ABSOLUTE) 7.60 K/uL 1.50-7.60 01/02/2022 09:07 pm EST BASO 0.1 % 0.0-2.0 01/02/2022 09:0 7 pm EST EOS 0.3 % 0.0-8.0 01/02/2022 09:0 7 pm EST LYMPHS 14.1 % 13.0-48.0 01/02/2022 09:0 7 pm EST MONOCYTES 9.7 % 2.0-12.0 01/02/2022 09:0 7 pm EST MCV 83.7 fL 80.0-100.0 01/02/2022 09:0 7 pm EST * CMP-COMPREHENSIVE METABOLIC PNL Performed by: [address], [address] [id number] Component Value Range Date GFR- 79 mL/min/1.73 m2 >60 09:07 pm EST * CBC W/DIFF Performed by: [address], [place] [id number] Component Value Range Date LYMPHS (ABSOLUTE) 1.40 K/uL 0.90-5.50 01/02/2022 09:07 pm EST NEUTROPHILS 75.8 % 40.0-80.0 01/02/2022 09:0 7 pm EST RDW 16.6 % 11.0-16.0 01/02/2022 09:0 7 pm EST * CMP-COMPREHENSIVE METABOLIC PNL Performed by: [address], [address] [id number] Component Value Range Date HNU-NLI-QIIVICU 65 mL/min/1.73 m2 >60 01/02/2022 09:07 pm EST AST (SGOT) 107 IU/L 4-40 01/02/2022 09:0 7 pm EST ALBUMIN 3.3 g/dL 3.5-5.5 01/02/2022 09:0 7 pm EST ALKALINE PHOS 119 IU/L 34-136 01/02/2022 09: 07 pm EST PROTEIN, TOTAL 5.7 g/dL 6.0-8.3 01/02/2022 09 :07 pm EST ALT (SGPT) 75 IU/L 4-55 01/02/2022 09:0 7 pm EST * CBC W/DIFF Performed by: [address], [address] [id number] Component Value Range Date PLATELET 205 K/cmm 150-450 01/02/2022 09:0 7 pm EST WBC 10.0 K/cmm 4.5-10.8 01/02/2022 09:0 7 pm EST HEMATOCRIT 40.4 % 42.0-54.0 01/02/2022 09:0 7 pm EST MCH 26.8 pg 26.0-35.0 01/02/2022 09:0 7 pm EST MCHC 32.0 g/dL 31.0-36.5 01/02/2022 09:0 7 pm EST * CMP-COMPREHENSIVE METABOLIC PNL Performed by: [address], [place] [id number] Component Value Range Date CHLORIDE 93 mEq/L 98-110 01/02/2022 09:0 7 pm EST * CBC W/DIFF Performed by: [address], [place] [id number] Component Value Range Date RBC 4.83 M/cmm 4.00-6.60 01/02/2022 09:0 7 pm EST * CMP-COMPREHENSIVE METABOLIC PNL Performed by: [address], [place] [id number] Component Value Range Date BUN (UREA NITROGEN) 42 mg/dL 7-25 01/03/20 22 09:07 pm EST SODIUM 141 mEq/L 135-145 01/02/2022 09:0 7 pm EST CARBON DIOXIDE (CO2) 31 mEq/L 21-33 022 09:07 pm EST POTASSIUM 3.2 mEq/L 3.5-5.3 01/02/2022 09:0 7 pm EST * CBC W/DIFF Performed by: [address], [address] [id number] Component Value Range Date HEMOGLOBIN 12.9 g/dL 14.0-18.0 01/02/2022 09:0 7 pm EST * CBC W/DIFF Performed by: [address] [id number] Component Value Range Date HEMOGLOBIN 11.5 g/dL 14.0-18.0 11/24/2021 11:5 3 pm EST * CMP-COMPREHENSIVE METABOLIC PNL Performed by: [place] [id number] Component Value Range Date POTASSIUM 4.3 mEq/L 3.5-5.3 11/24/2021 11:5 3 pm EST SODIUM 142 mEq/L 136-145 11/24/2021 11:5 3 pm EST BUN (UREA NITROGEN) 18 mg/dL 7-25 11/24/19 11:53 pm EST CARBON DIOXIDE (CO2) 29 mEq/L 21-33 022 11:53 pm EST CHLORIDE 101 mEq/L 98-110 11/24/2021 11:5 3 pm EST * CBC W/DIFF Performed by: [address] [id number] Component Value Range Date RBC 4.42 M/cmm 4.00-6.60 11/24/2021 11:5 3 pm EST MCHC 31.4 g/dL 31.0-36.5 11/24/2021 11:5 3 pm EST MCH 25.9 pg 26.0-35.0 11/24/2021 11:5 3 pm EST HEMATOCRIT 36.5 % 42.0-54.0 11/24/2021 11:5 3 pm EST WBC 7.1 K/cmm 4.5-10.8 11/24/2021 11:5 3 pm EST * CMP-COMPREHENSIVE METABOLIC PNL Performed by: [address] [id number] Component Value Range Date ALT (SGPT) 13 IU/L 4-55 11/24/2021 11:5 3 pm EST * CBC W/DIFF Performed by: [address] [id number] Component Value Range Date PLATELET 256 K/cmm 150-450 11/24/2021 11:5 3 pm EST * CMP-COMPREHENSIVE METABOLIC PNL Performed by: [address] [id number] Component Value Range Date PROTEIN, TOTAL 5.8 g/dL 6.0-8.3 11/24/2021 11 :53 pm EST ALKALINE PHOS 87 IU/L 34-136 11/24/2021 11: 53 pm EST AST (SGOT) 21 IU/L 4-40 11/24/2021 11:5 3 pm EST ALBUMIN 3.2 g/dL 3.5-5.5 11/24/2021 11:5 3 pm EST * CBC W/DIFF Performed by: [address] [address] Component Value Range Date BASO (ABSOLUTE) 0.10 K/uL 0.00-0.30 11/24/2021 1 1:53 pm EST * CMP-COMPREHENSIVE METABOLIC PNL Performed by: [address] [id number] Component Value Range Date GYI-SLI-HQMPVBG 59 mL/min/1.73 m2 >60 11/24/2021 11:53 pm EST * CBC W/DIFF Performed by: [address] [id number] Component Value Range Date RDW 17.5 % 11.0-16.0 11/24/2021 11:5 3 pm EST NEUTROPHILS 69.2 % 40.0-80.0 11/24/2021 11:5 3 pm EST LYMPHS (ABSOLUTE) 1.30 K/uL 0.90-5.50 11/24/2021 11:53 pm EST MONOCYTES 7.8 % 2.0-12.0 11/24/2021 11:5 3 pm EST * CMP-COMPREHENSIVE METABOLIC PNL Performed by: [address] [id number] Component Value Range Date GFR- 72 mL/min/1.73 m2 >60 11:53 pm EST * CBC W/DIFF Performed by: [address] [id number] Component Value Range Date MCV 82.6 fL 80.0-100.0 11/24/2021 11:5 3 pm EST LYMPHS 18.5 % 13.0-48.0 11/24/2021 11:5 3 pm EST BASO 1.2 % 0.0-2.0 11/24/2021 11:5 3 pm EST EOS 3.3 % 0.0-8.0 11/24/2021 11:5 3 pm EST NEUTS (ABSOLUTE) 4.90 K/uL 1.50-7.60 11/24/2021 11:53 pm EST EOS (ABSOLUTE) 0.20 K/uL 0.20-0.80 11/24/2021 11 :53 pm EST MONOCYTES (ABSOLUTE) 0.50 K/uL 0.15-1.10 022 11:53 pm EST * GLYCO-HGBA1C Performed by: [place] [id number] Component Value Range Date GLYCOHEMOGLOBIN-HGBA1C 6.4 % 4.1-6.1 11/24 11:53 pm EST * Individual Tests: CMP-COMPREHENSIVE METABOLIC PNL / LIPID PROFILE w/calc LDL / MAGNESIUM / GLYCO-HGBA1C / CBC W/DIFF / FOLATE (FOLIC ACID) / VITAMIN B12 / B- NATRIURETIC PEP (BNP) / TSH 3-UL / VITAMIND 25-OH TOTAL / PREALBUMIN Performed by: [place] [id number] Component Value Range Date TSH 3-UL 3.155 uIU/mL 0.340-5.600 11/24/2021 11:5 3 pm EST * CMP-COMPREHENSIVE METABOLIC PNL Performed by: [place] [id number] Component Value Range Date BUN/CREATININE RATIO 15 6-34 022 11:53 pm EST A/G RATIO 1.2 0.8-2.0 11/24/2021 11:5 3 pm EST * CBC W/DIFF Performed by: [place] [id number] Component Value Range Date MPV 7.5 fL 6.5-12.0 11/24/2021 11:5 3 pm EST * Individual Tests: CMP-COMPREHENSIVE METABOLIC PNL / LIPID PROFILE w/calc LDL / MAGNESIUM / GLYCO-HGBA1C / CBC W/DIFF / FOLATE (FOLIC ACID) / VITAMIN B12 / B- NATRIURETIC PEP (BNP) / TSH 3-UL / VITAMIND 25-OH TOTAL / PREALBUMIN Performed by: [address] [id number] Component Value Range Date B-NATRIURETIC PEP (BNP) 470 pg/mL 0-100 10/29 11:53 pm EST PREALBUMIN 31 mg/dL 16-45 11/24/2021 11:5 3 pm EST * CMP-COMPREHENSIVE METABOLIC PNL Performed by: [place] [id number] Component Value Range Date CREATININE 1.2 mg/dL 0.6-1.3 11/24/2021 11:5 3 pm EST GLUCOSE 66 11/24/2021 11:5 3 pm EST CALCIUM 8.5 mg/dL 8.4-10.2 11/24/2021 11:5 3 pm EST BILIRUBIN, TOTAL 0.3 mg/dL 0.2-1.2 11/24/2021 11:53 pm EST * LIPID PROFILE w/calc LDL Performed by: [address] [id number] Component Value Range Date CHOLESTEROL 130 mg/dL <200 11/24/2021 11:5 3 pm EST TRIGLYCERIDE 205 mg/dL <150 11/24/2021 11:5 3 pm EST HDL 45 mg/dL >40 11/24/2021 11:5 3 pm EST LDL CALCULATED 44 mg/dL <100 11/24/2021 11 :53 pm EST LDLc/HDL RATIO 1.0 <4:1 11/24/2021 11 :53 pm EST * Individual Tests: CMP-COMPREHENSIVE METABOLIC PNL / LIPID PROFILE w/calc LDL / MAGNESIUM / GLYCO-HGBA1C / CBC W/DIFF / FOLATE (FOLIC ACID) / VITAMIN B12 / B- NATRIURETIC PEP (BNP) / TSH 3-UL / VITAMIND 25-OH TOTAL / PREALBUMIN Performed by: [address] [id number] Component Value Range Date VITAMIN B12 257 pg/mL 211-911 11/24/2021 11:5 3 pm EST * GLYCO-HGBA1C Performed by: [place] [id number] Component Value Range Date eAG (Mean Glucose) 137 mg/dL <136 11:53 pm EST * LIPID PROFILE w/calc LDL Performed by: [place] [id number] Component Value Range Date VLDLc 41 mg/dL 5-40 11/24/2021 11:5 3 pm EST * Individual Tests: CMP-COMPREHENSIVE METABOLIC PNL / LIPID PROFILE w/calc LDL / MAGNESIUM / GLYCO-HGBA1C / CBC W/DIFF / FOLATE (FOLIC ACID) / VITAMIN B12 / B- NATRIURETIC PEP (BNP) / TSH 3-UL / VITAMIND 25-OH TOTAL / PREALBUMIN Performed by: [address] [id number] Component Value Range Date FOLIC ACID >24.0 SEE BELOW 11/24/2021 11:5 3 pm EST MAGNESIUM 1.9 mg/dL 1.5-2.5 11/24/2021 11:5 3 pm EST * CBC W/DIFF Performed by: [address] [id number] Component Value Range Date ANISOCYTOSIS 1+ NEGATIVE 11/24/2021 11:5 3 pm EST HYPOCHROMASIA 1+ NEGATIVE 11/24/2021 11: 53 pm EST * Individual Tests: CMP-COMPREHENSIVE METABOLIC PNL / LIPID PROFILE w/calc LDL / MAGNESIUM / GLYCO-HGBA1C / CBC W/DIFF / FOLATE (FOLIC ACID) / VITAMIN B12 / B- NATRIURETIC PEP (BNP) / TSH 3-UL / VITAMIND 25-OH TOTAL / PREALBUMIN Performed by: [address] [id number] Component Value Range Date VITAMIN D, 25-OH TOTAL 16 SEE BELOW 11/24 11:53 pm EST * XRAY CHEST 2 VIEW Performed by: [place] Component Value Range Date XRAY CHEST 2 VIEW XRAY CHEST 2 VIEWFIN DINGS: The heart and mediastinum are normal. There is no CHF, pneumonia or effusion. No adenopathy is seen. No acute bony abnormality is visible.CONCLUSION: No acute findings in the chest. The findings are unchanged from 11/07/2022.ELECTRONICALLY SIGNED BY MATIAS MANN M.D. 01/25/2023 3:54:58 PM CDT.Reason for Study: U07.1 COVID-19Principal Result Bartacker: MATIAS MANN ([id number])Assistant Professor Of Education: ZI CARTER (JGROVES)Verification Rep Assistant Professor Of Education: AYAZ 01/25/2023 04:55 pm EDT * XRAY CHEST 2 VIEW Performed by: [facility] Component Value Range Date XRAY CHEST 2 VIEW XRAY CHEST 2 VIEWSee NoteFINDINGS: Lungs: No focal consolidation. Pulmonary vasculature is within normal limits. Prominent lung markings. Pleura: No pneumothorax. No pleural effusion. Heart and Mediastinum: The cardiomediastinal silhouette is enlarged in size and contour. Osseous structures: Visualized osseous structures are stable. No radiopaque foreign body.CONCLUSION: No acute cardiopulmonary process.ELECTRONICALLY SIGNED BY NILSON HERNANDEZ M.D. 11/07/2022 3:38:36 PM SAP TRAINER.Reason for Study: R05.9 COUGH, UNSPECIFIEDPrincipal Result Bartacker: NILSON HERNANDEZ ([id number])Assistant Professor Of Education: ZI CARTER (Audience)Verification Rep Assistant Professor Of Education: AYAZ 11/07/2022 04:39 pm EST * WRIST COMPLETE MIN 3V Performed by: [facility] Component Value Range Date WRIST COMPLETE MIN 3V WRIST COMPLETE MIN 3V, LEFTFINDINGS: There is an old healed fracture deformity of the distal radius. No acute fracture, dislocation, degenerative changes, or destructive lesions of the left wrist are present.CONCLUSION: Old healed fracture deformity of the distal radius.ELECTRONICALLY SIGNED BY STARLA MAYA M.D. 08/28/2022 8:06:26 AM CDT.Reason for Study: G89.11 ACUTE PAIN DUE TO TRAUMAPrincipal Result Bartacker: STARLA MAYA ([id number])Assistant Professor Of Education: ZI CARTER (Audience)Verification Rep Assistant Professor Of Education: AYAZ 08/28/2022 09:06 am EDT * HAND 2 VIEWS Performed by: [facility] Component Value Range Date HAND 2 VIEWS HAND 2 VIEWS, LEFTFI NDINGS: There are minimal degenerative changes of the IP joints. No fracture, dislocation, destructive lesions, or other abnormalities of the left hand are present.CONCLUSION: Minimal degenerative changes.ELECTRONICALLY SIGNED BY STARLA MAYA M.D. 08/28/2022 8:06:26 AM CDT.Reason for Study: G89.11 ACUTE PAIN DUE TO TRAUMAPrincipal Result Bartacker: STARLA MAYA ([id number])Assistant Professor Of Education: ZI CARTER (Audience)Verification Rep Assistant Professor Of Education: AYAZ 08/28/2022 09:06 am EDT * WRIST COMPLETE MIN 3V Performed by: [facility] Component Value Range Date WRIST COMPLETE MIN 3V WRIST COMPLETE MIN 3V, RIGHTSee NoteFINDINGS: The radiocarpal joint is anatomically aligned. However, there is slight joint space narrowing and sclerosis. The first and second carpometacarpal joints are narrowed and sclerotic due to mild degenerative changes. No fracture or dislocation is seen.CONCLUSION: Mild degenerative joint disease; otherwise, no fracture seen.ELECTRONICALLY SIGNED BY MATIAS MANN M.D. 08/27/2022 8:02:46 AM CDT.Reason for Study: M79.641 PAIN IN RIGHT HANDPrincipal Result Bartacker: MATIAS MANN ([phone])Assistant Professor Of Education: MARGIE SANTIAGO (LCLARK)Verification Rep Assistant Professor Of Education: AYAZ 08/27/2022 09:03 am EDT * HAND MINIMUM 3 VIEWS Performed by: [facility] Component Value Range Date HAND MINIMUM 3 VIEWS HAND MINIMUM 3 VIEW S, RIGHTSee NoteFINDINGS: Distal interphalangeal joints are narrowed and sclerotic due to degenerative changes. To a lesser extent, proximal interphalangeal joints also show degenerative changes. No fracture or dislocation is seen.CONCLUSION: Mild osteoarthritis of the right hand.ELECTRONICALLY SIGNED BY MATIAS MANN M.D. 08/27/2022 8:02:46 AM CDT.Reason for Study: M79.641 PAIN IN RIGHT HANDPrincipal Result Bartacker: MATIAS MANN ([id number])Assistant Professor Of Education: MARGIE SANTIAGO (LCLARK)Verification Rep Assistant Professor Of Education: AYAZ 08/27/2022 09:03 am EDT * XRAY CHEST 2 VIEW Performed by: [facility] Component Value Range Date XRAY CHEST 2 VIEW XRAY CHEST 2 VIEW Co mparison: 01/02/2022.See NoteFINDINGS: The heart is normal in size. Pulmonary vascularity is within normal limits. Mediastinum and hilar structures are unremarkable. Stable scarring left lung base. No confluent infiltrate. No effusion or pneumothorax. No acute skeletal findings. Soft tissues unremarkable.CONCLUSION: No acute cardiopulmonary process. No evidence for CHF. Interval improvement from comparison study.ELECTRONICALLY SIGNED BY BRI SILVER M.D. 07/09/2022 11:55:40 AM CDT.Reason for Study: R05.1 ACUTE COUGHPrincipal Result Bartacker: BRI SILVER ([id number])Assistant Professor Of Education: ZI CARTER (JGROVES)Verification Rep Assistant Professor Of Education: AYAZ 07/09/2022 12:56 pm EDT * XRAY CHEST 2 VIEW Performed by: [facility] Component Value Range Date XRAY CHEST 2 VIEW XRAY CHEST 2 VIEW Co mparison: December 05 NoteFINDINGS: Heart size is unchanged. No evidence for pulmonary edema. Noacute lobar consolidations or pleural effusions or pneumothorax. Ladan appear more prominent. There are degenerative changes of the visualized thoracic spine.CONCLUSION: Minimal increased central congestion, since the prior study.ELECTRONICALLY SIGNED BY ZAN KITCHEN M.D. 01/02/2022 8:00:37 AM SAP TRAINER.Reason for Study: R06.02 SHORTNESS OF BREATHPrincipal Result Bartacker: ZAN KITCHEN ([id number])Assistant Professor Of Education: BETHANY TOURE (LWAGNER)Verification Rep Assistant Professor Of Education: AYAZ 01/02/2022 09:01 am EST * XRAY CHEST 2 VIEW Performed by: [facility] [facility] Component Value Range Date XRAY CHEST 2 VIEW XRAY CHEST 2 VIEW Co mparison: 11/22/2021 NoteFINDINGS: The heart is normal in size and configuration. The mediastinum is normal without adenopathy. There are mild left mid lung and left base opacities--atelectasis or pneumonia. Bony structures are unremarkable without acute fracture or destructive lesions.CONCLUSION: Left mid lung and base opacities. Findings are worsened since 11/22/2021 Advise close interval follow up exam.ELECTRONICALLY SIGNED BY LULU MCBRIDE M.D. 12/05/2021 9:24:23 AM SAP TRAINER.Reason for Study: R06.02 SHORTNESS OF BREATHPrincipal Result Bartacker: LULU MCBRIDE ([id number])Assistant Professor Of Education: ESTUARDO ALMEIDA (RHONKALA)Verification Rep Assistant Professor Of Education: AYAZ 12/05/2021 10:24 am EST * XRAY CHEST 2 VIEW Performed by: [facility] [facility] Component Value Range Date XRAY CHEST 2 VIEW XRAY CHEST 2 VIEWSee NoteFINDINGS: No comparison studies. Heart is mildly enlarged. Pulmonary vascularity is within normal limits. Linear left perihilar densities likely scarring or atelectasis, and less likely infiltrate. No effusion or pneumothorax. Mediastinum and hilar structures are unremarkable. No acute skeletal findings. Soft tissues unremarkable.CONCLUSION: Mild left perihilar opacities most likely atelectasis and/or scarring with infiltrate less likely. Clinical correlation and follow-up recommended.ELECTRONICALLY SIGNED BY BRI SILVER M.D. 11/22/2021 6:05:02 PM SAP TRAINER.Reason for Study: R05.9 COUGH, UNSPECIFIEDPrincipal Result Bartacker: BRI SILVER ([id number])Assistant Professor Of Education: ELMER SNOWDEN (SSIEVERS)Verification Rep Assistant Professor Of Education: AYAZ 11/22/2021 07:0 5 pm EST Encounters Encounter Performer Performer Role Encounter Diagnoses Location Date Discharge - Discharged to home or self care - Other - Private home/apt. with home health services [facility] 11/08/2021 06:15 pm EST - 2021 02:51 pm EST Discharge - Discharged to home or self care - Other - Private home/apt. with home health services [facility] 12/31/2021 06:24 pm EST - 01/26/2022 06:45 pm EDT Discharge - Discharged / Transferred to an ICF - Assisted Living - Other [facility] 05/29/2022 05:09 pm EDT - 09/18/2022 04:20 pm EST Leave - Home with Family - Other [facility] 11/01/2022 03:00 pm EST - 01/12/2023 09:43 am EDT Discharge - Discharged / Transferred to SNF - Other - care home [facility] 01/17/2023 08:30 pm EDT - 09/27/2023 01:01 am EST Advance Directives Directive Description Verification Advance Directive:Full Code Cardiopulmonary Resu scitation Immunizations Vaccine Date Afluria (Influenza vaccine) Q2035 2021 02:00 pm EDT SARS-COV-2 (COVID-19) 01/23/2023 02:38 a m EDT SARS-COV-2 (COVID-19) 12/14/2021 11:40 a m EST Flucelvax (Influenza vaccine) 08/15/2023 01:00 am EDT Pneumovax (PCV 20) 08/16/2022 02:00 pm EDT COVID Vaccine (Moderna Spikeva x) COVID Vaccine (Moderna Spikeva x) 08/15/2023 01:00 am EDT Social History
--- OUTSIDE RECORDS SUMMARY | 2024-10-21 23:05 | XMS_ITS | Encounter Summary ---
Author Organization [facility] Address [address] [place] [address] Care Team Providers Care Bass Singer Name Role Phone Leoncio Kilpatrick MD Primary Care Provider [phone] Encounter Details Date Type Department Care Team (Late st Contact Info) Description 06/30/2020 Orders Only [facility] Cardiology [address] [place] [address] Destin Bob MD [address] [place] [address] Social History Tobacco Use Types Packs/Day Years Used Date Smoking Tobacco: Former Alcohol Use Standard Drinks/Week Comments Yes 0 (1 standard drink = 0.6 oz pur e alcohol) 1OR 2 DAILY Sex and Gender Information Value Date Recorded Sex Assigned at Not on file 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 Gender Identity Not on file Sexual Orientation Not on file documented as of this encounter Plan of Treatment Not on file documented as of this encounter Procedures Procedure Name Priority Date/Time Associated Diagnosis Comments CARDIOLOGY DOCUMENT SCAN Routine 06/30/2020 documented in this encounter Results * SCAN - CARDIOLOGY (06/30/2020) Anatomical Region Laterality Modality Other Destin Bob MD [facility] Final Result documented in this encounter Visit Diagnoses Not on filedocumented in this encounter Care Teams Bass Singer Relationship Specialty Start Date End Date Leoncio Kilpatrick MD [address] [place] [address] PCP - General 06/09/18 documented as of this encounter
--- OUTSIDE RECORDS SUMMARY | 2024-10-21 23:05 | XMS_ITS | Clinical Summary ---
Author Organization [facility] Address [address] [place] [id number] Care Team Providers Care Chemist Biological Name Role Phone Leoncio Kilpatrick MD Primary Care Provider [phone] Allergies Active Allergy Reactions Criticality Noted Date [...] 50 mg by mouth. 07/11/20 16 Active metoprolol (LOPRESSOR) 50 mg tablet [...] heart failure. Stress test in 2016-for ischemia Encounters Date Type Department Care Team Description 08/04/2024 Orders Only [facility] Cardiology [address] [place] [address] Joel Pulido MD from Last 3 Months Surgical History Surgery Date Site/Laterality Comments FOOT AMPUTATION THROUGH METATARSAL TONSILLECTOMY Medical History Medical History Date Comments Atrial fibrillation (CMS/HCC) (HCC) Chronic renal failure COPD (chronic obstructive pulmonary disease) (HC C) Diabetes mellitus (HCC) Diastolic dysfunction Hypertension Peripheral neuropathy Depression Anxiety On home O2 Family History Medical History Relation Name Comments Suicidality Father Car Accident Mother Relation Name Status Comments Father Mother Social History Tobacco Use Types Packs/Day Years Used Date Smoking Tobacco: Former Alcohol Use Standard Drinks/Week Comments Yes 0 (1 standard drink = 0.6 oz pur e alcohol) 1OR 2 DAILY Sex and Gender Information Value Date Recorded Sex Assigned at Not on file 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 Gender Identity Not on file Sexual Orientation Not on file Obstetrics History Last Filed Vital Signs Vital Sign Reading [...] inal Result from Last 3 Months Insurance [facility] IDPA MEDICARE Advance Directives For more information, please contact: [phone] * Full Code (Latest Code Status on File) Date Activated Date Inactivated Comments 06/05/2018 4:43 PM 06/06/2018 7:06 PM Care Teams Chemist Biological Relationship Specialty Start Date End Date Leoncio Kilpatrick MD [address] [place] [address] PCP - General 06/09/18
--- OUTSIDE RECORDS SUMMARY | 2024-10-21 23:05 | XMS_ITS | Encounter Summary ---
Author Organization [facility] Address [address] [place] [address] Care Team Providers Care Manager Alliance Name Role Phone Leoncio Kilpatrick MD Primary Care Provider [phone] Encounter Details Date Type Department Care Team (Late st Contact Info) Description 11/03/2020 Orders Only [facility] Cardiology [address] [place] [address] Destin Bob MD [address] [place] [address] Social History Tobacco Use Types Packs/Day Years Used Date Smoking Tobacco: Former Alcohol Use Standard Drinks/Week Comments Yes 0 (1 standard drink = 0.6 oz pur e alcohol) 1OR 2 DAILY Sex and Gender Information Value Date Recorded Sex Assigned at Not on file 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 Gender Identity Not on file Sexual Orientation Not on file documented as of this encounter Plan of Treatment Not on file documented as of this encounter Procedures Procedure Name Priority Date/Time Associated Diagnosis Comments CARDIOLOGY DOCUMENT SCAN Routine 11/03/2020 documented in this encounter Results * SCAN - CARDIOLOGY (11/03/2020) Anatomical Region Laterality Modality Other Destin Bob MD [facility] Final Result documented in this encounter Visit Diagnoses Not on filedocumented in this encounter Care Teams Manager Alliance Relationship Specialty Start Date End Date Leoncio Kilpatrick MD [address] [place] [address] PCP - General 06/09/18 documented as of this encounter
--- OUTSIDE RECORDS SUMMARY | 2024-10-21 23:05 | XMS_ITS ---
Author Organization [facility] Address Unknown Allergies, Adverse Reactions, Alerts Substance Reaction Status Noted Date Resolved Date Niacin active 04/03/2022 HYDROcodone active 04/03/2022 Problems Problem Status Start Date End Date CHRONIC OBSTRUCTIVE PULMONAR Y DISEASE, UNSPECIFIED (Primary) (J44.9 - ICD-10-CM) ACTIVE 10/03/2022 COVID-19 (Primary) (U07.1 - ICD-10-CM) RESOLVED 04/23/2022 ACUTE AND CHRONIC RESPIRATOR Y FAILURE WITH HYPOXIA (Primary) (J96.21 - ICD-10-CM) RESOLVED 04/02/2022 ACUTE AND CHRONIC RESPIRATOR Y FAILURE WITH HYPOXIA (J96.21 - ICD-10-CM) ACTIVE 10/03/2022 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) RESOLVED 04/02/2022 05/14/2022 PNEUMONIA, UNSPECIFIED ORGANISM (J18.9 - ICD-10-CM) AC TIVE 10/03/2022 TYPE 2 DIABETES MELLITUS WIT H HYPOGLYCEMIA WITHOUT COMA (E11.649 - ICD-10-CM) RESOLVED 04/02/2022 05/14/2022 POLYNEUROPATHY, UNSPECIFIED (G62.9 - ICD-10-CM) ACTIVE 10/03/2022 ACUTE AND CHRONIC RESPIRATOR Y FAILURE WITH HYPERCAPNIA (J96.22 - ICD-10-CM) RESOLVED 04/02/2022 05/14/2022 TYPE 2 DIABETES MELLITUS WIT HOUT COMPLICATIONS (E11.9 - ICD-10-CM) ACTIVE 10/03/2022 CHRONIC OBSTRUCTIVE PULMONAR Y DISEASE, UNSPECIFIED (J44.9 - ICD-10-CM) RESOLVED 04/02/2022 05/14/2022 HEART FAILURE, UNSPECIFIED (I50.9 - ICD-10-CM) ACTIVE 10/03/2022 UNSPECIFIED ASTHMA, UNCOMPLI CATED (J45.909 - ICD-10-CM) RESOLVED 04/02/2022 05/14/2022 OTHER PERSISTENT ATRIAL FIBR ILLATION (I48.19 - ICD-10-CM) ACTIVE 10/03/2022 COVID-19 (U07.1 - ICD-10-CM) RESOLVED 05/04/2022 05/14/2022 PULMONARY HYPERTENSION, UNSP ECIFIED (I27.20 - ICD-10-CM) ACTIVE 10/03/2022 ANXIETY DISORDER, UNSPECIFIED (F41.9 - ICD-10-CM) RESO LVED 04/02/2022 05/14/2022 DEPRESSION, UNSPECIFIED (F32.A - ICD-10-CM) ACTIVE 10/03/2022 MAJOR DEPRESSIVE DISORDER, S CLAUDIA EPISODE, UNSPECIFIED (F32.9 - ICD-10-CM) RESOLVED 04/02/2022 05/14/2022 ANXIETY DISORDER, UNSPECIFIED (F41.9 - ICD-10-CM) ACTI VE 10/03/2022 CHRONIC DIASTOLIC (CONGESTIV E) HEART FAILURE (I50.32 - ICD-10-CM) RESOLVED 04/02/2022 05/14/2022 UNSPECIFIED FRACTURE OF THE LOWER END OF LEFT RADIUS, SUBSEQUENT ENCOUNTER FOR CLOSED FRACTURE WITH ROUTINE HEALING (S52.502D - ICD-10-CM) ACTIVE 10/03/2022 OTHER PERSISTENT ATRIAL FIBR ILLATION (I48.19 - ICD-10-CM) RESOLVED 04/02/2022 05/14/2022 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 - ICD-10-CM) ACTIVE 10/03/2022 PULMONARY HYPERTENSION, UNSP ECIFIED (I27.20 - ICD-10-CM) RESOLVED 04/02/2022 05/14/2022 DIFFICULTY IN WALKING, NOT E LSEWHERE CLASSIFIED (R26.2 - ICD-10-CM) ACTIVE 10/03/2022 NEED FOR ASSISTANCE WITH PER [facility] C[facility] (Z74.1 - ICD-10-CM) RESOLVED 04/02/2022 05/14/2022 UNSTEADINESS ON FEET (R26.81 - ICD-10-CM) RESOLVED 04/02/2022 05/14/2022 MUSCLE WEAKNESS (GENERALIZED) (M62.81 - ICD-10-CM) RES OLVED 04/02/202205/14/2022 ACQUIRED ABSENCE OF OTHER RI GHT TOE(S) (Z89.421 - ICD-10-CM) ACTIVE 10/03/2022 ACQUIRED ABSENCE OF RIGHT GR EAT TOE (Z89.411 - ICD-10-CM) ACTIVE 10/03/2022 REPEATED FALLS (R29.6 - ICD-10-CM) ACTIVE 2021 PERSONAL HISTORY OF TRANSIEN T ISCHEMIC ATTACK (TIA), 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) ACTIVE 10/03/2022 BENIGN PROSTATIC HYPERPLASIA WITHOUT LOWER URINARY TRACT SYMPTOMS (N40.0 - ICD-10-CM) ACTIVE 10/03/2022 ALCOHOL 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 (F10.26 - ICD-10-CM) RESOLVED 05/04/2022 0 05/14/2022 OTHER IRRITABLE BOWEL SYNDROME (K58.8 - ICD-10-CM) RES OLVED 04/02/2022 05/14/2022 MIXED HYPERLIPIDEMIA (E78.2 - ICD-10-CM) RESOLVED 04/02/2022 05/14/2022 UNSPECIFIED OSTEOARTHRITIS, UNSPECIFIED SITE (M19.90 - ICD-10-CM) RESOLVED 04/02/2022 05/14/2022 BENIGN PROSTATIC HYPERPLASIA WITHOUT LOWER URINARY TRACT SYMPTOMS (N40.0 - ICD-10-CM) RESOLVED 04/02/202205/14 ADULT FAILURE TO THRIVE (R62.7 - ICD-10-CM) RESOLVED 04/02/2022 05/14/2022 ANEMIA, UNSPECIFIED (D64.9 - ICD-10-CM) RESOLVED 0 04/02/2022 05/14/2022 HYPO-OSMOLALITY AND HYPONATREMIA (E87.1 - ICD-10-CM) R ESOLVED 04/02/2022 05/14/2022 REPEATED FALLS (R29.6 - ICD-10-CM) RESOLVED 202105/14/2022 PERSONAL HISTORY OF TRANSIEN T ISCHEMIC ATTACK (TIA), 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) RESOLVED 04/02/2022 05/14/2022 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) RESOLVED 04/02/2022 05/14/2022 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 - ICD-10-CM) RESOLVED 04/02/2022 05/14/2022 ACQUIRED ABSENCE OF OTHER RI GHT TOE(S) (Z89.421 - ICD-10-CM) RESOLVED 04/02/2022 05/14/2022 ACQUIRED ABSENCE OF RIGHT GR EAT TOE (Z89.411 - ICD-10-CM) RESOLVED 04/02/2022 05/14/2022 GASTRO-ESOPHAGEAL REFLUX DIS EASE WITHOUT ESOPHAGITIS (K21.9 - ICD-10-CM) RESOLVED 04/02/2022 05/14/2022 ALCOHOL ABUSE, UNCOMPLICATED (F10.10 - ICD-10-CM) RESO LVED 04/02/2022 05/14/2022 Results * BASIC MET PNL INCL GFR (BMP) Performed by: [address], [address] [facility] [address] Component Value Range Date POTASSIUM 4.0 mEq/L 3.5-5.3 10/15/2022 04:3 6 pm EST BUN (UREA NITROGEN) 32 mg/dL 7-25 10/15/20 04:36 pm EST SODIUM 141 mEq/L 136-145 10/15/2022 04:3 6 pm EST CHLORIDE 103 mEq/L 98-110 10/15/2022 04:3 6 pm EST CARBON DIOXIDE (CO2) 27 mEq/L 21-33 022 04:36 pm EST [id number] 49 mL/min/1.73 m2 >60 10/15/2022 04:36 pm EST GFR- 60 mL/min/1.73 m2 >60 04:36 pm EST BUN/CREATININE RATIO 23 6-25 022 04:36 pm EST CREATININE 1.4 mg/dL 0.7-1.3mg/dL 10/15/2022 04:3 6 pm EST GLUCOSE 102 10/15/2022 04:3 6 pm EST CALCIUM 8.3 mg/dL 8.6-10.3mg/dL 10/15/2022 04: 36 pm EST * Individual Tests: BASIC MET PNL INCL GFR (BMP) / MAGNESIUM Performed by: [place], [place] [id number] [place] [address], [place] [id number] Component Value Range Date MAGNESIUM 2.0 mg/dL 1.5-2.5 10/15/2022 04:3 6 pm EST * CMP-COMPREHENSIVE METABOLIC PNL Performed by: [address], [place] [address] Component Value Range Date CALCIUM 8.3 mg/dL 8.6-10.3mg/dL 10/08/2022 05: 15 pm EST BILIRUBIN, TOTAL 0.6 mg/dL 0.2-1.2 10/08/2022 05:15 pm EST CREATININE 1.3 mg/dL 0.7-1.3mg/dL 10/08/2022 05:1 5 pm EST GLUCOSE 163 10/08/2022 05:1 5 pm EST A/G RATIO 1.8 0.8-2.0 10/08/2022 05:1 5 pm EST * CBC W/DIFF Performed by: [address], [place] [address] Component Value Range Date MPV 8.2 fL 6.5-12.0 10/08/2022 05:1 5 pm EST MONOCYTES (ABSOLUTE) 0.70 K/uL 0.15-1.10 022 05:15 pm EST * CMP-COMPREHENSIVE METABOLIC PNL Performed by: [address], [place] [address] Component Value Range Date BUN/CREATININE RATIO 16 6-25 022 05:15 pm EST * CBC W/DIFF Performed by: [address], [place] [address] Component Value Range Date MCV 83.6 fL 80.0-100.0 10/08/2022 05:1 5 pm EST LYMPHS (ABSOLUTE) 1.10 K/uL 0.90-5.50 10/08/2022 05:15 pm EST MONOCYTES 8.4 % 2.0-12.0 10/08/2022 05:1 5 pm EST LYMPHS 12.8 % 13.0-48.0 10/08/2022 05:1 5 pm EST BASO 0.4 % 0.0-2.0 10/08/2022 05:1 5 pm EST EOS 1.3 % 0.0-8.0 10/08/2022 05:1 5 pm EST NEUTS (ABSOLUTE) 6.30 K/uL 1.50-7.60 10/08/2022 05:15 pm EST EOS (ABSOLUTE) 0.10 K/uL 0.20-0.80 10/08/2022 05 :15 pm EST * CMP-COMPREHENSIVE METABOLIC PNL Performed by: [address], [place] [id number] Component Value Range Date GFR- 65 mL/min/1.73 m2 >60 05:15 pm EST [id number] 54 mL/min/1.73 m2 >60 10/08/2022 05:15 pm EST ALKALINE PHOS 105 IU/L 34-136 10/08/2022 05: 15 pm EST * CBC W/DIFF Performed by: [address], [place] [id number] Component Value Range Date RDW 15.3 % 11.0-16.0 10/08/2022 05:1 5 pm EST NEUTROPHILS 77.1 % 40.0-80.0 10/08/2022 05:1 5 pm EST WBC 8.2 K/cmm 4.5-10.8 10/08/2022 05:1 5 pm EST * CMP-COMPREHENSIVE METABOLIC PNL Performed by: [address], [place] [id number] Component Value Range Date ALT (SGPT) 22 IU/L 4-55 10/08/2022 05:1 5 pm EST * CBC W/DIFF Performed by: [address], [place] [address] Component Value Range Date PLATELET 145 K/cmm 150-450 10/08/2022 05:1 5 pm EST * CMP-COMPREHENSIVE METABOLIC PNL Performed by: [address], [place] [address] Component Value Range Date AST (SGOT) 33 IU/L 4-40 10/08/2022 05:1 5 pm EST ALBUMIN 3.7 g/dL 3.5-5.5 10/08/2022 05:1 5 pm EST PROTEIN, TOTAL 5.8 g/dL 6.0-8.3 10/08/2022 05 :15 pm EST CARBON DIOXIDE (CO2) 28 mEq/L 21-33 022 05:15 pm EST CHLORIDE 97 mEq/L 98-110 10/08/2022 05:1 5 pm EST * CBC W/DIFF Performed by: [address], [place] [address] Component Value Range Date MCH 27.2 pg 26.0-35.0 10/08/2022 05:1 5 pm EST HEMATOCRIT 39.3 % 42.0-54.0 10/08/2022 05:1 5 pm EST RBC 4.70 M/cmm 4.00-6.60 10/08/2022 05:1 5 pm EST MCHC 32.6 g/dL 31.0-36.5 10/08/2022 05:1 5 pm EST * CMP-COMPREHENSIVE METABOLIC PNL Performed by: [address], [place] [id number] Component Value Range Date SODIUM 139 mEq/L 136-145 10/08/2022 05:1 5 pm EST BUN (UREA NITROGEN) 21 mg/dL 7-25 10/08/20 22 05:15 pm EST * CBC W/DIFF Performed by: [address], [place] [id number] Component Value Range Date HEMOGLOBIN 12.8 g/dL 14.0-18.0 10/08/2022 05:1 5 pm EST * CMP-COMPREHENSIVE METABOLIC PNL Performed by: [address], [place] [id number] Component Value Range Date POTASSIUM 3.3 mEq/L 3.5-5.3 10/08/2022 05:1 5 pm EST * CBC W/DIFF Performed by: [address], [place] [id number] Component Value Range Date HEMOGLOBIN 10.2 g/dL 14.0-18.0 05/07/2022 03:5 5 pm EDT * CMP-COMPREHENSIVE METABOLIC PNL Performed by: [address], [place] [id number] Component Value Range Date POTASSIUM 3.8 mEq/L 3.5-5.3 05/07/2022 03:5 5 pm EDT SODIUM 131 mEq/L 135-145 05/07/2022 03:5 5 pm EDT CARBON DIOXIDE (CO2) 25 mEq/L 21-33 022 03:55 pm EDT BUN (UREA NITROGEN) 15 mg/dL 7-25 05/07/20 22 03:55 pm EDT * CBC W/DIFF Performed by: [address], [place] [id number] Component Value Range Date MCHC 31.8 g/dL 31.0-36.5 05/07/2022 03:5 5 pm EDT * CMP-COMPREHENSIVE METABOLIC PNL Performed by: [address], [place] [id number] Component Value Range Date CHLORIDE 95 mEq/L 98-110 05/07/2022 03:5 5 pm EDT * CBC W/DIFF Performed by: [address], [place] [address] Component Value Range Date HEMATOCRIT 32.1 % 42.0-54.0 05/07/2022 03:5 5 pm EDT MCH 26.3 pg 26.0-35.0 05/07/2022 03:5 5 pm EDT * CMP-COMPREHENSIVE METABOLIC PNL Performed by: [address], [place] [address] Component Value Range Date PROTEIN, TOTAL 5.3 g/dL 6.0-8.3 05/07/2022 03 :55 pm EDT * CBC W/DIFF Performed by: [address], [place] [id number] Component Value Range Date RBC 3.88 M/cmm 4.00-6.60 05/07/2022 03:5 5 pm EDT WBC 9.4 K/cmm 4.5-10.8 05/07/2022 03:5 5 pm EDT PLATELET 259 K/cmm 150-450 05/07/2022 03:5 5 pm EDT * CMP-COMPREHENSIVE METABOLIC PNL Performed by: [address], [place] [address] Component Value Range Date ALBUMIN 2.9 g/dL 3.5-5.5 05/07/2022 03:5 5 pm EDT AST (SGOT) 29 IU/L 4-40 05/07/2022 03:5 5 pm EDT ALT (SGPT) 14 IU/L 4-55 05/07/2022 03:5 5 pm EDT * CBC W/DIFF Performed by: [address], [place] [address] Component Value Range Date NEUTROPHILS 77.8 % 40.0-80.0 05/07/2022 03:5 5 pm EDT * CMP-COMPREHENSIVE METABOLIC PNL Performed by: [address], [place] [address] Component Value Range Date FPF-[id number]-[id number] 82 mL/min/1.73 m2 >60 05/07/2022 03:55 pm EDT * CBC W/DIFF Performed by: [address], [place] [address] Component Value Range Date RDW 16.8 % 11.0-16.0 05/07/2022 03:5 5 pm EDT * CMP-COMPREHENSIVE METABOLIC PNL Performed by: [address], [place] [address] Component Value Range Date ALKALINE PHOS 71 IU/L 34-136 05/07/2022 03: 55 pm EDT GFR- 100 mL/min/1.73 m2 >60 0 05/07/2022 03:55 pm EDT * CBC W/DIFF Performed by: [address], [place] [address] Component Value Range Date MCV 82.8 fL 80.0-100.0 05/07/2022 03:5 5 pm EDT NEUTS (ABSOLUTE) 7.30 K/uL 1.50-7.60 05/07/2022 03:55 pm EDT EOS (ABSOLUTE) 0.30 K/uL 0.20-0.80 05/07/2022 03 :55 pm EDT BASO 0.4 % 0.0-2.0 05/07/2022 03:5 5 pm EDT EOS 2.7 % 0.0-8.0 05/07/2022 03:5 5 pm EDT MONOCYTES 13.2 % 2.0-12.0 05/07/2022 03:5 5 pm EDT LYMPHS 5.9 % 13.0-48.0 05/07/2022 03:5 5 pm EDT LYMPHS (ABSOLUTE) 0.60 K/uL 0.90-5.50 05/07/2022 03:55 pm EDT * CMP-COMPREHENSIVE METABOLIC PNL Performed by: [address], [address] [address] Component Value Range Date A/G RATIO 1.2 0.8-2.0 05/07/2022 03:5 5 pm EDT * CBC W/DIFF Performed by: [address], [address] [address] Component Value Range Date MONOCYTES (ABSOLUTE) 1.20 K/uL 0.15-1.10 022 03:55 pm EDT * CMP-COMPREHENSIVE METABOLIC PNL Performed by: [address], [address] [address] Component Value Range Date BUN/CREATININE RATIO 17 6-25 022 03:55 pm EDT * CBC W/DIFF Performed by: [address], [address] [address] Component Value Range Date MPV 7.2 fL 6.5-12.0 05/07/2022 03:5 5 pm EDT * CMP-COMPREHENSIVE METABOLIC PNL Performed by: [address], [address] [address] Component Value Range Date CREATININE 0.9 mg/dL 0.7-1.3mg/dL 05/07/2022 03:5 5 pm EDT GLUCOSE 87 05/07/2022 03:5 5 pm EDT CALCIUM 7.5 mg/dL 8.6-10.3mg/dL 05/07/2022 03: 55 pm EDT * CBC W/DIFF Performed by: [address], [address] [address] Component Value Range Date ANISOCYTOSIS 1+ NEGATIVE 05/07/2022 03:5 5 pm EDT * CMP-COMPREHENSIVE METABOLIC PNL Performed by: [address], [address] [address] Component Value Range Date BILIRUBIN, TOTAL 0.4 mg/dL 0.2-1.2 05/07/2022 03:55 pm EDT * CBC W/DIFF Performed by: [address], [address] [address] Component Value Range Date ANISOCYTOSIS 1+ NEGATIVE 04/04/2022 05:1 6 pm EDT * CMP-COMPREHENSIVE METABOLIC PNL Performed by: [address], [address] [address] Component Value Range Date CALCIUM 8.4 mg/dL 8.6-10.3mg/dL 04/04/2022 05: 16 pm EDT GLUCOSE 145 04/04/2022 05:1 6 pm EDT BILIRUBIN, TOTAL 0.6 mg/dL 0.2-1.2 04/04/2022 05:16 pm EDT CREATININE 1.0 mg/dL 0.7-1.3mg/dL 04/04/2022 05:1 6 pm EDT * CBC W/DIFF Performed by: [address], [address] [address] Component Value Range Date MPV 7.4 fL 6.5-12.0 04/04/2022 05:1 6 pm EDT NUCLEATED RBC 0.1 NRBC/100 WBC <1.0 04/04/2022 05:16 pm EDT * CMP-COMPREHENSIVE METABOLIC PNL Performed by: [address], [address] [address] Component Value Range Date BUN/CREATININE RATIO 10 6-25 022 05:16 pm EDT A/G RATIO 1.5 0.8-2.0 04/04/2022 05:1 6 pm EDT * CBC W/DIFF Performed by: [address], [address] [address] Component Value Range Date LYMPHS (ABSOLUTE) 0.70 K/uL 0.90-5.50 04/04/2022 05:16 pm EDT MONOCYTES 10.8 % 2.0-12.0 04/04/2022 05:1 6 pm EDT LYMPHS 9.1 % 13.0-48.0 04/04/2022 05:1 6 pm EDT BASO 1.2 % 0.0-2.0 04/04/2022 05:1 6 pm EDT EOS 2.3 % 0.0-8.0 04/04/2022 05:1 6 pm EDT NEUTS (ABSOLUTE) 5.80 K/uL 1.50-7.60 04/04/2022 05:16 pm EDT EOS (ABSOLUTE) 0.20 K/uL 0.20-0.80 04/04/2022 05 :16 pm EDT MONOCYTES (ABSOLUTE) 0.80 K/uL 0.15-1.10 022 05:16 pm EDT MCV 84.6 fL 80.0-100.0 04/04/2022 05:1 6 pm EDT * CMP-COMPREHENSIVE METABOLIC PNL Performed by: [address], [place] [id number] Component Value Range Date GFR- 88 mL/min/1.73 m2 >60 05:16 pm EDT * CBC W/DIFF Performed by: [address], [place] [id number] Component Value Range Date RDW 17.3 % 11.0-16.0 04/04/2022 05:1 6 pm EDT NEUTROPHILS 76.6 % 40.0-80.0 04/04/2022 05:1 6 pm EDT * CMP-COMPREHENSIVE METABOLIC PNL Performed by: [address], [address] [address] Component Value Range Date ZCQ-ZPH-VCRRIDR 73 mL/min/1.73 m2 >60 04/04/2022 05:16 pm EDT * CBC W/DIFF Performed by: [address], [address] [address] Component Value Range Date BASO (ABSOLUTE) 0.10 K/uL 0.00-0.30 04/04/2022 0 5:16 pm EDT * CMP-COMPREHENSIVE METABOLIC PNL Performed by: [address], [place] [id number] Component Value Range Date ALT (SGPT) 15 IU/L 4-55 04/04/2022 05:1 6 pm EDT * CBC W/DIFF Performed by: [address], [place] [address] Component Value Range Date PLATELET 148 K/cmm 150-450 04/04/2022 05:1 6 pm EDT * CMP-COMPREHENSIVE METABOLIC PNL Performed by: [address], [place] [id number] Component Value Range Date AST (SGOT) 22 IU/L 4-40 04/04/2022 05:1 6 pm EDT ALBUMIN 3.4 g/dL 3.5-5.5 04/04/2022 05:1 6 pm EDT PROTEIN, TOTAL 5.7 g/dL 6.0-8.3 04/04/2022 05 :16 pm EDT ALKALINE PHOS 102 IU/L 34-136 04/04/2022 05: 16 pm EDT * CBC W/DIFF Performed by: [address], [place] [id number] Component Value Range Date MCH 27.3 pg 26.0-35.0 04/04/2022 05:1 6 pm EDT HEMATOCRIT 36.8 % 42.0-54.0 04/04/2022 05:1 6 pm EDT WBC 7.6 K/cmm 4.5-10.8 04/04/2022 05:1 6 pm EDT * CMP-COMPREHENSIVE METABOLIC PNL Performed by: [address], [place] [id number] Component Value Range Date CHLORIDE 97 mEq/L 98-110 04/04/2022 05:1 6 pm EDT * CBC W/DIFF Performed by: [address], [place] [address] Component Value Range Date RBC 4.35 M/cmm 4.00-6.60 04/04/2022 05:1 6 pm EDT MCHC 32.3 g/dL 31.0-36.5 04/04/2022 05:1 6 pm EDT * CMP-COMPREHENSIVE METABOLIC PNL Performed by: [address], [address] [address] Component Value Range Date BUN (UREA NITROGEN) 10 mg/dL 7-25 04/04/20 22 05:16 pm EDT CARBON DIOXIDE (CO2) 28 mEq/L 21-33 022 05:16 pm EDT POTASSIUM 3.9 mEq/L 3.5-5.3 04/04/2022 05:1 6 pm EDT SODIUM 138 mEq/L 135-145 04/04/2022 05:1 6 pm EDT * CBC W/DIFF Performed by: [address], [address] [address] Component Value Range Date HEMOGLOBIN 11.9 g/dL 14.0-18.0 04/04/2022 05:1 6 pm EDT Encounters Encounter Performer Performer Role Encounter Diagnoses Location Date Discharge - Discharged to home or self care - Home with Family - Private home/apt. with no home health services [facility] 04/03/2022 12:55 am EDT - 04/23/2022 07:00 am EDT Discharge - Discharged to home or self care - Home - Other [facility] 05/04/2022 12:14 pm EDT - 05/14/2022 02:01 pm EDT Discharge - Other - alf [facility] 10/03/2022 11:52 am EST - 11/01/2022 02:43 pm EST Immunizations Vaccine Date Pneumovax (PCV 13)(54116) SARS-COV-2 (COVID-19) 04/05/2022 01:00 a m EDT Flucelvax (Influenza vaccine) Social History
--- OUTSIDE RECORDS SUMMARY | 2024-10-21 23:05 | XMS_ITS | Encounter Summary ---
Author Organization [facility] Address [address] [place] [address] Care Team Providers Care Clinical Care Manager Name Role Phone Leoncio Kilpatrick MD Primary Care Provider [phone] Encounter Details Date Type Department Care Team (Late st Contact Info) Description 12/31/2019 Orders Only [facility] Cardiology [address] [place] [address] Angely Rowe MD [address] [place] [id number] Social History Tobacco Use Types Packs/Day Years Used Date Smoking Tobacco: Former Alcohol Use Standard Drinks/Week Comments Yes 0 (1 standard drink = 0.6 oz pur e alcohol) 1OR 2 DAILY Sex and Gender Information Value Date Recorded Sex Assigned at Not on file Legal Sex Male 3:11 AM [employer] Gender Identity Not on file Sexual Orientation Not on file documented as of this encounter Plan of Treatment Not on file documented as of this encounter Procedures Procedure Name Priority Date/Time Associated Diagnosis Comments CARDIOLOGY DOCUMENT SCAN Routine 12/31/2019 documented in this encounter Results * SCAN - CARDIOLOGY (12/31/2019) Anatomical Region Laterality Modality Other Angely Rowe MD [facility] CARDIAC [facility] PROCEDURES Final Result documented in this encounter Visit Diagnoses Not on filedocumented in this encounter Care Teams Clinical Care Manager Relationship Specialty Start Date End Date Leoncio Kilpatrick MD [address] [place] [address] PCP - General 06/09/18 documented as of this encounter
--- OUTSIDE RECORDS SUMMARY | 2024-10-21 23:05 | XMS_ITS | Encounter Summary ---
Author Organization [facility] Address [address] [place] [address] Care Team Providers Care Cost Accountant Name Role Phone Leoncio Kilpatrick MD Primary Care Provider Encounter Details Date Type Department Care Team (Late st Contact Info) Description 12/30/2021 Orders Only [facility] Cardiology [address] [place] [address] Min Lyon MD [address] [place] [address] [address] [place] [address] Social History Tobacco Use Types Packs/Day Years Used Date Smoking Tobacco: Former Alcohol Use Standard Drinks/Week Comments Yes 0 (1 standard drink = 0.6 oz pur e alcohol) 1OR 2 DAILY Sex and Gender Information Value Date Recorded Sex Assigned at Not on file 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 Gender Identity Not on file Sexual Orientation Not on file documented as of this encounter Plan of Treatment Not on file documented as of this encounter Procedures Procedure Name Priority Date/Time Associated Diagnosis Comments CARDIOLOGY DOCUMENT SCAN Routine 12/30/2021 documented in this encounter Results * SCAN - CARDIOLOGY (12/30/2021) Anatomical Region Laterality Modality Other Min Lyon MD [facility] CARDI[facility] SERVICES PROC EDURES Final Result documented in this encounter Visit Diagnoses Not on filedocumented in this encounter Care Teams Cost Accountant Relationship Specialty Start Date End Date Leoncio Kilpatrick MD [address] [place] [address] PCP - General 06/09/18 documented as of this encounter
--- OUTSIDE RECORDS SUMMARY | 2024-10-21 23:05 | XMS_ITS | Encounter Summary ---
Author Organization [facility] Address [address] [place] [address] Care Team Providers Care Senior Vice President Name Role Phone Leoncio Kilpatrick MD Primary Care Provider [phone] Encounter Details Date Type Department Care Team (Late st Contact Info) Description 07/01/2020 Orders Only [facility] Cardiology [address] [place] [address] Destin Bob MD [address] [place] [id number] Social History Tobacco Use Types Packs/Day Years Used Date Smoking Tobacco: Former Alcohol Use Standard Drinks/Week Comments Yes 0 (1 standard drink = 0.6 oz pur e alcohol) 1OR 2 DAILY Sex and Gender Information Value Date Recorded Sex Assigned at Not on file 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 Gender Identity Not on file Sexual Orientation Not on file documented as of this encounter Plan of Treatment Not on file documented as of this encounter Procedures Procedure Name Priority Date/Time Associated Diagnosis Comments CARDIOLOGY DOCUMENT SCAN Routine 07/01/2020 documented in this encounter Results * SCAN - CARDIOLOGY (07/01/2020) Anatomical Region Laterality Modality Other Destin Bob MD [facility] C[facility]AC SERVICES [facility] Final Result documented in this encounter Visit Diagnoses Not on filedocumented in this encounter Care Teams Senior Vice President Relationship Specialty Start Date End Date Leoncio Kilpatrick MD [address] [place] [address] PCP - General 06/09/18 documented as of this encounter
--- OUTSIDE RECORDS SUMMARY | 2024-10-21 23:06 | XMS_ITS | Encounter Summary ---
Author Organization [facility] Healthcare Address [address] [place] [address] Care Team Providers Care Crusher Operator Name Role Phone Leoncio Kilpatrick MD Primary Care Provider [phone] Encounter Details Date Type Department Care Team (Latest Contact Info) Description 04/19/2017 5:17 AM CDT - 04/19/2017 11:59 PM CDT Hospital Encounter CH OP INTERIM No, Physician Discharge Disposition: Discharge to home or self care Social History Tobacco Use Types Packs/Day Years Used Date Smoking Tobacco: Former Alcohol Use Standard Drinks/Week Comments Yes 0 (1 standard drink = 0.6 oz pur e alcohol) 1OR 2 DAILY Sex and Gender Information Value Date Recorded Sex Assigned at Not on file Legal 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 ipratropium-albute rol (DUO-NEB) 0.5-2.5 mg/3 mL nebulizer solutionIndication s:Chronic Obstructive Pulmonary Disease with Bronchospasms Take by nebulization every 6 (six) hours. losartan (COZAAR) 25 mg tablet Take 50 mg by mouth. 07/11/2016 metoprolol (LOPRESSOR) 50 mg tablet Take 50 mg by mouth. 07/11/2016 sertraline (ZOLOFT) 50 mg tablet Take 50 mg by mouth daily. ALPRAZolam (XANAX) 0.5 mg tablet Take 0.5 mg by mouth nightly as needed for anxiety. 05/31/20 18 ascorbic acid (ascorbic acid) 500 mg tablet,chewable Take 500 mg by mouth. 05/31/20 18 aspirin 81 mg tablet Take 81 mg by mouth daily. 05/31/20 18 fluticasone (FLOVENT DISKUS) 250 mcg/actuation diskus inhaler Inhale 1 puff 2 (two) times a day. Rinse mouth with water after use to reduce aftertaste and incidence of candidiasis. Do not swallow. 05/31/20 18 glipiZIDE (GLUCOTROL) 5 mg tabletIndications: type 2 diabetes mellitus Take 5 mg by mouth once. 05/31/20 18 losartan (COZAAR) 50 mg tablet Take 50 mg by mouth 2 (two) times a day. 05/31/20 18 melatonin 5 mg tablet 05/31/20 18 metoprolol (LOPRESSOR) 25 mg tablet Take 25 mg by mouth 2 (two) times a day. 06/11/20 17 multivitamin tablet,chewable Take by mouth. 05/31 18 omeprazole (PriLOSEC) 20 mg capsule Take 20 mg by mouth 2 (two) times a day. 05/31/20 18 tiotropium (SPIRIVA) 18 mcg per inhalation capsule Place 1 capsule into inhaler and inhale once daily. 05/31/20 18 traMADol (ULTRAM) 50 mg tablet Take 50 mg by mouth every 6 (six) hours as needed for pain. 05/31/20 18 zinc sulfate 220 mg tablet Take by mouth. 05/31/20 18 documented as of this encounter Discharge Disposition Disposition Code Departure Means Destination Discharge to home or self care documented in this encounter Plan of Treatment Not on file documented as of this encounter Procedures Procedure Name Priority Date/Time Associated Diagnosis Comments EGFR Routine 04/19/2017 3:25 AM CDT DIFFERENTIAL AUTO Routine 04/19/2017 3:2 5 AM CDT CBC WITH AUTO DIFFERENTIAL Routine 04/19/2017 3:25 AM CDT BASIC METABOLIC PANEL Routine 04/19/2017 3:25 AM CDT DISCHARGE LABORATORY CUMULATIVE REPORT 04/19/2017 12:00 AM CDT documented in this encounter Results * eGFR (04/19/2017 3:25 AM CDT) eGFR 65 mL/min/1.7 3 m2 [facility] Comment: Interpretive Data Reference Interval Normal ?>/= 90 mL/min/1.73m2 Mildly decreased* ? 60 - 89 mL/min/1.73m2 Mildly to moderately decreased ?45 - 59 mL/min/1.73m2 Moderately to severely decreased ??30 - 44 mL/min/1.73m2 Severely decreased ?15 - 29 mL/min/1.73m2 Kidney Failure ?< 15 ??mL/min/1.73m2 *Relative to young adult level If -[place] multiply value by 1.16. Estimated glomerular filtration rate is determined by the CKD-EPI equation recommended by the National Kidney Foundation (KDIGO 2012 Clinical Practice Guideline for the Evaluation and Management of Chronic Kidney Disease. Kidney Intnl Suppl Oct 2012;3:1). The CKD-EPI equation should not be used for patients with unstable renal function and has not been validated in children and those over 70. Current interpretive data was last reviewed 2016. Blood specimen (specimen) 04/19/2017 3:25 AM CDT 04/19/2017 5:22 AM CDT us Notinfile Unknown LAB BLOOD ORDERABLES Final Res ult ERNESTO SWEET [address] Department [place] [address] * Basic metabolic panel (04/19/2017 3:25 AM CDT) Sodium 139 135 - 145 mmol/L C[facility] Potassium, pl 4.1 3.5 - 5.1 mmol/L [facility] Chloride 105 100 - 114 mmol/L [facility] CH CO2 23 22 - 32 mmol/L [facility] CH BUN 18 8 - 24 mg/dL [facility] CH Glucose 83 70 - 199 mg/dL [facility] CH Creatinine 1.14 0.70 - 1.40 mg/dL [facility] CH Calcium 8.5 8.4 - 10.5 mg/dL [facility] CH Anion gap 15 8 - 16 mmol/L [facility] CH Blood specimen (specimen) 04/19/2017 3:25 AM CDT 04/19/2017 5:22 AM CDT us Notinfile Unknown LAB BLOOD ORDERABLES Final Res ult Performing Organization Address City/[facility]/ZIP Co de Phone Number ERNESTO [address] [place] [address] * (ABNORMAL) Differential, auto (04/19/2017 3:25 AM CDT) Neutrophil pct 78.0 % [facility] CH Imm gran pct 2.4 % [facility] CH Lymphocyte pct 10.3 % [facility] CH Monocyte pct 7.6 % [facility] CH Eosinophil pct 0.2 % [facility] CH Basophil pct 0.3 % [facility] CH Neutrophil abs 12.46(H) 1.70 - 6.50 K/cumm [facility] CH Imm gran abs 0.38(H) 0.00 - 0.10 K/cumm [facility] CH Lymphocyte abs 1.64 0.80 - 3.30 K/cumm [facility] CH Monocyte abs 1.22(H) 0.20 - 0.80 K/cumm [facility] CH Eosinophil abs 0.22 0.00 - 0.50 K/cumm [facility] CH Basophil abs 0.04 0.00 - 0.10 K/cumm [facility] CH Blood specimen (specimen) 04/19/2017 3:25 AM CDT 04/19/2017 5:21 AM CDT us Notinfile Unknown LAB BLOOD ORDERABLES Final Res ult Performing Organization Address City/[facility]/ZIP Co de Phone Number ERNESTO SWEET [address] [place] [address] * (ABNORMAL) CBC with auto differential (04/19/2017 3:25 AM CDT) WBC 15.96(H) 3.80 - 9.90 K/cumm [facility] CH RBC 3.65(L) 4.30 - 5.80 M/cumm [facility] CH Hgb 10.4(L) 13.0 - 17.5 g/dL [facility] Hct 32.9(L) 38.9 - 50.3 % [facility] MCV 90.1 81.3 - 96.4 fL [facility] MCH 28.5 27.1 - 33.3 pg [facility] MCHC 31.6(L) 32.3 - 35.7 g/dL [facility] RDW CV 14.5 11.1 - 14.9 % [facility] RDW SD 48.0 35.7 - 48.1 fL [facility] Plt 311 150 - 400 K/cumm [facility] MPV 8.8(L) 9.1 - 12.3 fL [facility] NRBC 0.0 0.0 - 0.2 % [facility] NRBC abs 0.00 0.00 - 0.01 K/cumm [facility] Blood specimen (specimen) 04/19/2017 3:25 AM CDT 04/19/2017 5:21 AM CDT us Notinfile Unknown LAB BLOOD ORDERABLES Final Res ult [facility] [address] [address] Department [place] [address] * DISCHARGE LABORATORY CUMULATIVE REPORT (04/19/2017 12:00 AM CDT) Narrative 04/19/2017 12:00 AM CDT Ordered by an unspecified provider. Historical Provider LAB BLOOD ORDERABLES Ellen l Result documented in this encounter Visit Diagnoses Not on filedocumented in this encounter Care Teams Crusher Operator Relationship Specialty Start Date End Date Leoncio Kilpatrick MD [address] [place] [address] PCP - General 04/19/17 06/08/18 documented as of this encounter
--- OUTSIDE RECORDS SUMMARY | 2024-10-21 23:06 | XMS_ITS | Encounter Summary ---
Author Organization [facility] Healthcare Address [address] [place] [address] Care Team Providers Care Parks Recreation Coordinator Name Role Phone Master Colbert MD Primary Care Provide r Encounter Details Date Type Department Care Team (Late st Contact Info) Description 10/13/2016 9:42 AM PROFESSOR OF COMMUNICATION - 10/13/2016 11:06 AM [facility] Hospital Encounter [facility] Vimal Moe MD [address] [place] [address] Postprocedural hemorrhage of a circulatory system organ or structure following other procedure; Other complications of amputation stump (CMS/HCC); Amputation of limb(s) as the cause of abnormal reaction of the patient, or of later complication, without mention of misadventure at the time of the procedure; group home as place of occurrence of external cause; 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 07/11/2016 metoprolol (LOPRESSOR) 50 mg tablet Take 50 mg by mouth. 07/11/2016 documented as of this encounter Plan of Treatment Not on file documented as of this encounter Visit Diagnoses Diagnosis Postprocedural hemorrhage of a circulatory system organ or structure following other procedure Other complications of amputation stump (HCC) Amputation of limb(s) as the cause of abnormal reaction of the patient, or of later complication, without mention of misadventure at the time of the procedure group home as place of occurrence of external cause Acquired absence of other right toe(s) (HCC) Elevated blood pressure reading without diagnosis of hypertension documented in this encounter Care Teams Parks Recreation Coordinator Relationship Specialty Start Date End Date Master Colbert MD [address] [place] [address] PCP - General 12/16/13 04/18/17 documented as of this encounter
--- OUTSIDE RECORDS SUMMARY | 2024-10-21 23:06 | XMS_ITS | Encounter Summary ---
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); Nicotine dependence, uncomplicated; Amputation of limb(s) as the cause of abnormal reaction of the patient, or of later complication, without mention of misadventure at the time of the procedure; [facility] as place of occurrence of external cause Social History Tobacco Use Types Packs/Day Years Used Date Smoking Tobacco: Never Assessed Sex and Gender Information Value Date Recorded Sex Assigned at Not on file Legal Sex Male 3:11 AM HOT BRAIDER Gender Identity Not on file Sexual Orientation [...] encounter Visit Diagnoses Diagnosis Postprocedural hemorrhage of skin and subcutaneous tissue following other procedure Acquired absence of other right toe(s) (HCC) Nicotine dependence, uncomplicated Amputation of limb(s) as the cause of abnormal reaction of the patient, or of later complication, without mention of misadventure at the time of the procedure M[facility] as place of occurrence of external cause documented in this encounter Care Teams Supervisor Waterproofing Relationship Specialty Start Date End Date Master Colbert MD [address] [place] [address] PCP - General 12/16/13 04/18/17 documented as of this encounter
--- OUTSIDE RECORDS SUMMARY | 2024-10-21 23:06 | XMS_ITS | Encounter Summary ---
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
--- OUTSIDE RECORDS SUMMARY | 2024-10-21 23:06 | XMS_ITS | Encounter Summary ---
Author Organization [facility] Address [address] [place] [address] Care Team Providers Care Agriscience Instructor Name Role Phone Leoncio Kilpatrcik MD Primary Care Provider [phone] Encounter Details Date Type Department Care Team (Late st Contact Info) Description 03/04/2018 Telephone [facility] [address] [address] [address] [place] [address] Angely Rowe MD [address] [place] [address] Social History Tobacco Use Types Packs/Day Years Used Date Smoking Tobacco: Former Alcohol Use Standard Drinks/Week Comments Yes 0 (1 standard drink = 0.6 oz pur e alcohol) 1OR 2 DAILY Sex and Gender Information Value Date Recorded Sex Assigned at Not on file 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 60 tablet 03/04/2018 05/02/2018 documented in this encounter Miscellaneous Notes * Telephone Encounter - Sherrell Romeo MA - 03/04/2018 11:20 AM CDT Medication sent to pharmacy * Telephone Encounter - Shannon Brambila - 03/04/2018 10:04 AM CDT Pt made appt for 03/31/[address] Rowe. Needs Metoprolol rx sent to [facility] in [place]. documented in this encounter Plan of Treatment Not on file documented as of this encounter Visit Diagnoses Not on filedocumented in this encounter Discontinued Medications Medication Sig Discontinue Reason Start Date End Da te metoprolol (LOPRESSOR) 25 mg tablet TAKE 1 TABLET BY MOUTH EVERY 12 HOURS Reorder 07/23/2017 03/04/2018 documented as of this encounter Care Teams Agriscience Instructor Relationship Specialty Start Date End Date Leoncio Kilpatrick MD [address] [place] [address] PCP - General 04/19/17 06/08/18 documented as of this encounter
--- OUTSIDE RECORDS SUMMARY | 2024-10-21 23:06 | XMS_ITS | Encounter Summary ---
Author Organization [facility] Healthcare Address [address] [place] [address] Care Team Providers Care Preschool Substitute Teacher Name Role Phone Master Colbert MD Primary Care Provide r Encounter Details Date Type Department Care Team (Latest Contact Info) Description 10/13/2016 9:22 AM REGISTERED CLINICAL DIETITIAN - 10/13/2016 11:59 PM REGISTERED CLINICAL DIETITIAN Hospital Encounter [facility] Postprocedural hemorrhage of a circulatory system organ or structure following other circulatory system procedure; Other surgical procedures as the cause of abnormal reaction of the patient, or of later complication, without mention of misadventure at the time of the procedure; detention as place of occurrence of external cause Social History Tobacco Use Types Packs/Day Years Used Date Smoking Tobacco: Never Assessed Sex and Gender Information Value Date Recorded Sex Assigned at Not on file Legal Sex Male 3:11 AM REGISTERED CLINICAL DIETITIAN Gender Identity Not on file Sexual Orientation [...] circulatory system organ or structure following other circulatory system procedure Other surgical procedures as the cause of abnormal reaction of the patient, or of later complication, without mention of misadventure at the time of the procedure detention as place of occurrence of external cause documented in this encounter Care Teams Preschool Substitute Teacher Relationship Specialty Start Date End Date Master Colbert MD [address] [place] [address] PCP - General 12/16/13 04/18/17 documented as of this encounter
--- OUTSIDE RECORDS SUMMARY | 2024-10-21 23:06 | XMS_ITS | Encounter Summary ---
Author Organization [facility] Address [address] [place] [address] Care Team Providers Care Personal Attendant Name Role Phone Leoncio Kilpatrick MD Primary Care Provider [phone] Encounter Details Date Type Department Care Team (Late st Contact Info) Description 05/02/2018 Telephone [facility] [address] [place] [phone] Angely Rowe MD [address] [place] [address] Social History Tobacco Use Types Packs/Day Years Used Date Smoking Tobacco: Former Alcohol Use Standard Drinks/Week Comments Yes 0 (1 standard drink = 0.6 oz pur e alcohol) 1OR 2 DAILY Sex and Gender Information Value Date Recorded Sex Assigned at Not on file Legal 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 60 tablet 2 05/02/2018 05/31/2018 documented in this encounter Miscellaneous Notes * Telephone Encounter - Melia Ariza RN - 05/02/2018 11:40 AM CDT I called the patient's daughter and scheduled an appt with Dr. Rowe at the location. Refill sent to patient's pharmacy for the metoprolol. * Telephone Encounter - Dolores Rodriguez - 05/02/2018 11:17 AM CDT [facility] in [place] called for refill on metoprolol tartrate 25 mg. documented in this encounter Plan of Treatment Not on file documented as of this encounter Visit Diagnoses Not on filedocumented in this encounter Discontinued Medications Medication Sig Discontinue Reason Start Date End Da te metoprolol (LOPRESSOR) 25 mg tablet Take 1 tablet (25 mg total) by mouth 2 (two) times a day. Reorder 03/04/2018 05/02/2018 documented as of this encounter Care Teams Personal Attendant Relationship Specialty Start Date End Date Leoncio Kilpatrick MD [address] [place] [address] PCP - General 04/19/17 06/08/18 documented as of this encounter
--- OUTSIDE RECORDS SUMMARY | 2024-10-21 23:06 | XMS_ITS | Encounter Summary ---
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); Dehiscence of amputation stump (CMS/HCC); Amputation of limb(s) as the cause of abnormal reaction of the patient, or of later complication, without mention of misadventure at the time of the procedure; [facility]room in jail as place of occurrence of external cause Social History Tobacco Use Types Packs/Day Years Used Date Smoking Tobacco: Never Assessed Sex and Gender Information Value Date Recorded Sex Assigned at Not on file Legal Sex Male 3:11 AM FITNESS MANAGEMENT DIRECTOR Gender Identity Not on file Sexual Orientation Not on file documented as of this encounter Medications at Time of Discharge losartan (COZAAR) 25 mg tablet Take 50 mg by mouth. 07/11/2016 metoprolol (LOPRESSOR) 50 mg tablet Take 50 mg by mouth. 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
--- OUTSIDE RECORDS SUMMARY | 2024-10-21 23:06 | XMS_ITS | Encounter Summary ---
Author Organization [facility] Healthcare Address [address] [place] [address] Care Team Providers Care Mold Injector Name Role Phone Leoncio Kilpatrick MD Primary Care Provider [phone] Encounter Details Date Type Department Care Team (Latest Contact Info) Description 05/31/2018 1:15 AM CDT - 05/31/2018 11:59 PM CDT Hospital Encounter [facility] [address] [place] [id number] Discharge Disposition: Discharge to home or self care Social History Tobacco Use Types Packs/Day Years Used Date Smoking Tobacco: Former Alcohol Use Standard Drinks/Week Comments Yes 0 (1 standard drink = 0.6 oz pur e alcohol) 1OR 2 DAILY Sex and Gender Information Value Date Recorded Sex Assigned at Not on file 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 30 tablet 06/06/2018 cyclobenzaprine (FLEXERIL) 5 mg tablet Take 1 tablet (5 mg total) by mouth 3 (three) times a day as needed for muscle spasms. 30 tablet 06/06/2018 gabapentin (NEURONTIN) 100 mg capsule Take by mouth 3 (three) times a day. ipratropium-albute rol (DUO-NEB) 0.5-2.5 mg/3 mL nebulizer solutionIndication s:Chronic Obstructive Pulmonary Disease with Bronchospasms Take by nebulization every 6 (six) hours. lidocaine (LIDODERM) 5 % Apply 2 patches topically daily. Remove & discard patch within 12 hours or as directed by . 15 patch 06/07/2018 losartan (COZAAR) 25 mg tablet Take 50 mg by mouth. 07/11/2016 metoprolol (LOPRESSOR) 50 mg tablet Take 50 mg by mouth. 07/11/2016 omeprazole (PriLOSEC) 40 mg capsule TK 1 C PO BID. 2 05/08/2018 predniSONE (DELTASONE) 5 mg tablet TK 1/2 T PO D 5 05/01/2018 PROAIR HFA 90 mcg/actuation inhaler INL 2 PFS PO Q 4 TO 6 H PRF SOB 0 03/13/2018 senna-docusate (PERICOLACE) 8.6-50 mg Take 2 tablets by mouth 2 (two) times a day. 60 tablet 06/06/2018 sertraline (ZOLOFT) 50 mg tablet Take 50 mg by mouth daily. simvastatin (ZOCOR) 10 mg tablet TK 1 T PO QD IN THE MONAE 1 05/01/2018 oxyCODONE (ROXICODONE) 5 mg immediate release tabletIndications: Pain Take 1 tablet (5 mg total) by mouth every 4 (four) hours as needed for pain for up to 14 days. 30 tablet 06/06/2018 06/20/20 18 ALPRAZolam (XANAX) 1 mg tablet TK ONE T PO BID 0 05/16/2018 06/06/20 18 documented as of this encounter Discharge Disposition Disposition Code Departure Means Destination Discharge to home or self care documented in this encounter Plan of Treatment Not on file documented as of this encounter Procedures Procedure Name Priority Date/Time Associated Diagnosis Comments NEURO CT MR OUTSIDE CONSULT Routine 05/31/2018 7:20 PM CDT documented in this encounter Results * Neuro CT MR Outside Consult (05/31/2018 7:20 PM CDT) Anatomical Region Laterality Modality N/A Computed Tomogra phy 05/31/2018 8:21 PM CDT Impressions 06/01/2018 11:46 AM CDT Severe burst fracture of T12 with mild retropulsion into the spinal canal at this level causing mild to moderate spinal canal stenosis. Minimally displaced fracture through the left aspect of the L1 vertebral body with associated mild height loss. ?? The findings, conclusions and recommendations within this report do not replace the initial findings, conclusions ??and recommendations made at the facility where the study was performed based upon the imaging and clinical condition at that time. ??Comparison with the prior report and clinical history is necessary. ??The provided images may or may not represent the [place] source data set and thus may contain changes that may lower the accuracy of this second-opinion interpretation. Electronically signed by: Annabelle Canseco M.D. Narrative 06/01/2018 11:46 AM CDT EXAMINATION: RADIOLOGY CONSULTATION ON OUTSIDE IMAGING STUDY STUDY INITIALLY PERFORMED: 05/30/2018 at [facility]. TYPE OF STUDY: Multiple computed tomographic images of the lumbar spine without intravenous contrast are provided at the time of this interpretation. CONTRAST INFORMATION: No contrast was administered. The protocol was adequate to address the clinical question. The outside final report was not available at the time of this second opinion interpretation. TYPE OF CONSULTATION: Consult on outside imaging study with images submitted through [facility] DATE OF CONSULTATION: 05/31/2018 8:14 PM HISTORY: 72-year-old male fall backwards from standing height. COMPARISON: MR spine radiographs dated 05/30/2018 FINDINGS: There is a severe burst fracture of T12 with mild retropulsion into the spinal canal at this level. ??There is a minimally displaced fracture through the left aspect of the L1 vertebral body which does not extend into the pedicles or posterior elements. ??There is mild height loss of the L1 vertebral body. ??The remaining vertebral bodies are normal. ??The remaining intervertebral disc spaces are normal. ??The alignment of the lumbar spine is normal. There is mild atherosclerosis of the abdominal aorta. ??There is right lower lobe bronchial wall thickening and consolidation which may represent atelectasis or aspiration. ??Right hip arthroplasty screw is partially visualized. Indeterminate sclerotic right iliac bone lesion is noted. Procedure Note Annabelle Canseco MD - 06/01/2018 EXAMINATION: RADIOLOGY CONSULTATION ON OUTSIDE IMAGING STUDY STUDY INITIALLY PERFORMED: 05/30/2018 at [facility]. TYPE OF STUDY: Multiple computed tomographic images of the lumbar spine without intravenous contrast are provided at the time of this interpretation. CONTRAST INFORMATION: No contrast was administered. The protocol was adequate to address the clinical question. The outside final report was not available at the time of this second opinion interpretation. TYPE OF CONSULTATION: Consult on outside imaging study with images submitted through [facility] DATE OF CONSULTATION: 05/31/2018 8:14 PM HISTORY: 72-year-old male fall backwards from standing height. COMPARISON: MR spine radiographs dated 05/30/2018 FINDINGS: There is a severe burst fracture of T12 with mild retropulsion into the spinal canal at this level. There is a minimally displaced fracture through the left aspect of the L1 vertebral body which does not extend into the pedicles or posterior elements. There is mild height loss of the L1 vertebral body. The remaining vertebral bodies are normal. The remaining intervertebral disc spaces are normal. The alignment of the lumbar spine is normal. There is mild atherosclerosis of the abdominal aorta. There is right lower lobe bronchial wall thickening and consolidation which may represent atelectasis or aspiration. Right hip arthroplasty screw is partially visualized. Indeterminate sclerotic right iliac bone lesion is noted. IMPRESSION: Severe burst fracture of T12 with mild retropulsion into the spinal canal at this level causing mild to moderate spinal canal stenosis. Minimally displaced fracture through the left aspect of the L1 vertebral body with associated mild height loss. The findings, conclusions and recommendations within this report do not replace the initial findings, conclusions and recommendations made at the facility where the study was performed based upon the imaging and clinical condition at that time. Comparison with the prior report and clinical history is necessary. The provided images may or may not represent the [place] source data set and thus may contain changes that may lower the accuracy of this second-opinion interpretation. Electronically signed by: Annabelle Canseco M.D. us Isaak Edward MD IMG CT PROCEDURES Final Re sult documented in this encounter Visit Diagnoses Not on filedocumented in this encounter Care Teams Mold Injector Relationship Specialty Start Date End Date Leoncio Kilpatrick MD [address] [place] [address] PCP - General 04/19/17 06/08/18 documented as of this encounter
--- OUTSIDE RECORDS SUMMARY | 2024-10-21 23:06 | XMS_ITS | Encounter Summary ---
Author Organization [facility] Medical [facility] Address [address] [place] [address] Care Team Providers Care Leather Products Supervisor Name Role Phone Master Colbert MD Primary Care Provide r Reason for Visit * Reason Comments Hospital Follow Up DIZZINESS, FALLS Encounter Details Date Type Department Care Team (Late st Contact Info) Description 04/08/2017 11:00 AM CDT Office Visit [facility] [address] [address] [address] [place] [address] Angely Rowe MD [address] [place] [id number] Atrial flutter, unspecified type (CMS/HCC) (Primary Dx); Essential hypertension, benign; Shortness of breath; Falls frequently Social History Tobacco Use Types Packs/Day Years Used Date Smoking Tobacco: Former Alcohol Use Standard Drinks/Week Comments Yes 0 (1 standard drink = 0.6 oz pur e alcohol) 1OR 2 DAILY Sex and Gender Information Value Date Recorded Sex Assigned at Not on file 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 Gender Identity Not on file Sexual Orientation Not on file documented as of this encounter Last Filed Vital Signs Vital Sign Reading Time Taken Comments Blood Pressure 110/54 04/08/2017 11:22 AM CDT Pulse 58 04/08/2017 11:22 AM CDT Temperature - - Respiratory Rate 20 04/08/2017 11:22 AM CDT Oxygen Saturation - - Inhaled Oxygen Concentration - - Weight 75.8 kg (167 lb) 04/08/2017 11:22 AM CDT Height - - Body Mass Index - - documented in this encounter Patient Instructions * Patient Instructions* Angely Rowe MD - 04/08/2017 11:00 AM CDT Follow-up in 4 weeks documented in this encounter Progress Notes * Angely Rowe MD - 04/08/2017 11:00 AM CDT [facility] DATE OF VISIT: 04/08/2017 CHIEF COMPLAINT Chief Complaint Patient presents with ??? Hospital Follow Up DIZZINESS, FALLS HPI Ludin Mcguire is a 71 y.o. male with past medical history of atrial flutter, rate controlled, type 2diabetes, peripheral neuropathy, right transmetatarsal amputation, stage 3 chronic kidney disease, hypertension, COPD on home O2, depression, anxiety,icthyosis,, previous stroke who presents here forfollow-up after he was in the hospital or on March 07, 2017. He was admitted to the hospital with feeling very weak and falling down. At that time he was found to have new flutter which is new. He was started on Xarelto 15 mg that time. 04/08/2017: He returns for follow-up. He fell down on March 24 while he was in the shower after he tripped. He went to the emergency room and was told that he has sacral fracture. Also there is a spot that might suggestive of Mets. He is still having excruciating lower back pain. Denies chest pain. Admits to chronic shortness of breath and uses home O2. No lower limb edema. Also admits to dizziness but lately has markedly improved. Dizziness happen at any time more his sitting or when he is walking. No syncope. No orthopnea or paroxysmal nocturnal dyspnea. MEDICAL HISTORY Past Medical History: Diagnosis Date ??? Anxiety ??? Atrial fibrillation (CMS/HCC) ??? Chronic renal failure ??? COPD (chronic obstructive pulmonary disease) (CMS/HCC) ??? Depression ??? Diabetes mellitus (CMS/HCC) ??? Diastolic dysfunction ??? Hypertension ??? On home O2 ??? Peripheral neuropathy (CMS/HCC) Past Surgical History: Procedure Laterality Date ??? FOOT AMPUTATION THROUGH METATARSAL ??? TONSILLECTOMY Social History Substance Use Topics ??? Smoking status: Former Smoker ??? Smokeless tobacco: Not on file ??? Alcohol use Yes Comment: 1OR 2 DAILY Family History Problem Relation Age of Onset ??? Car Accident Mother ??? Suicidality Father MEDICATIONS HOME MEDICATIONS : ALPRAZolam (XANAX) 0.5 mg tablet ascorbic acid (ascorbic acid) 500 mg tablet,chewable aspirin 81 mg tablet fluticasone (FLOVENT DISKUS) 250 mcg/actuation diskus inhaler gabapentin (NEURONTIN) 100 mg capsule glipiZIDE (GLUCOTROL) 5 mg tablet ipratropium-albuterol (DUO-NEB) 0.5-2.5 mg/3 mL nebulizer solution losartan (COZAAR) 50 mg tablet melatonin 5 mg tablet metoprolol (LOPRESSOR) 25 mg tablet multivitamin tablet,chewable omeprazole (PriLOSEC) 20 mg capsule rivaroxaban (XARELTO) tablet sertraline (ZOLOFT) 50 mg tablet tiotropium (SPIRIVA) 18 mcg per inhalation capsule traMADol (ULTRAM) 50 mg tablet zinc sulfate 220 mg tablet ALLERGIES Allergies Allergen Reactions ??? Niacin REVIEW OF SYSTEMS Review of Systems Constitution: Positive for malaise/fatigue. Negative for chills and fever. HENT: Negative for congestion, headaches, nosebleeds and sore throat. Eyes: Negative for blurred vision, double vision, pain and photophobia. Cardiovascular: Positive for dyspnea on exertion. Negative for chest pain, claudication, leg swelling, near-syncope, orthopnea, palpitations, paroxysmal nocturnal dyspnea and syncope. Respiratory: Positive for shortness of breath. Negative for cough, hemoptysis, snoring, sputum production and wheezing. Endocrine: Negative for cold intolerance, heat intolerance and polyuria. Hematologic/Lymphatic: Negative for adenopathy and bleeding problem. Does not bruise/bleed easily. Skin: Negative for color change, itching and rash. Musculoskeletal: Positive for back pain, falls and joint pain. Negative for joint swelling, muscle weakness and stiffness. Gastrointestinal: Negative for abdominal pain, diarrhea, nausea and vomiting. Genitourinary: Negative for dysuria, frequency and hematuria. Neurological: Positive for light-headedness. Negative for focal weakness, loss of balance, numbness, seizures and tremors. Psychiatric/Behavioral: Negative for depression and hallucinations. The patient is not nervous/anxious. Allergic/Immunologic: Negative for environmental allergies and hives. PHYSICAL EXAM Vitals: 04/08/17 1122 BP: 110/54 Pulse: 58 Resp: 20 There is no height or weight on file to calculate BMI. Physical Exam Constitutional: He is oriented to person, place, and time. He appears cachectic. HENT: Head: Normocephalic and atraumatic. Mouth/Throat: Oropharynx is clear and moist. Eyes: Conjunctivae and EOM are normal. Left eye exhibits no discharge. No scleral icterus. Neck: Normal range of motion. Neck supple. No thyromegaly present. Cardiovascular: Normal rate, regular rhythm and normal heart sounds. Exam reveals no gallop and no friction rub. No murmur heard. Pulmonary/Chest: Effort normal and breath sounds normal. No respiratory distress. He has no wheezes. He has no rales. He exhibits no tenderness. Abdominal: Soft. He exhibits no distension and no mass. There is no tenderness. Musculoskeletal: He exhibits no edema or deformity. Lumbar back: He exhibits tenderness. Neurological: He is alert and oriented to person, place, and time. No cranial nerve deficit. He exhibits normal muscle tone. Skin: Skin is warm. No rash noted. No erythema. Psychiatric: He has a normal mood and affect. Judgment normal. LABS AND OTHER DIAGNOSTIC TESTS Chemistry EKG 02/2017: A flutter with heart rate 61 and possibly Q-waves in leads V1 to V3 no ischemic changes. Echo March 2016: EF 70% with mild LVH and impaired relaxation, trivial MR and trivial TR ECHO: March 08, 2017: EF 65% with diastolic dysfunction. Mild pulmonary hypertension. RVSP 42. Mild TR. Mild MR, Lexiscan nuclear stress test April 11, 2016: No ischemia. EF 79% ASSESSMENT Diagnoses and all orders for this visit: 1. Atrial flutter, unspecified type (CMS/HCC) (Primary) Assessment & Plan: Rate is controlled using metoprolol.. On Xarelto. He is having frequent falls and last time he felldown about 10 days ago he had a fracture in his sacral spine. At this time I discussed with the patient and I called his daughter and discussed that I would stop the Xarelto given these frequent falls. Both patient and daughter agree 2. Essential hypertension, benign Assessment & Plan: controlled 3. Shortness of breath Assessment & Plan: He has COPD and on home O2. Stable shortness of breath. No heart failure. Stress test in 2016-for ischemia 4. Falls frequently Assessment & Plan: Last time he fell down on March 24, 2017 and there was sacral fracture with 1 spot suggestive of Mets. I advised patient if the pain is still there to go back to the emergency room to have this fraction re-evaluated. PLAN/RECOMMENDATIONS Follow up in the office in in 1 month. Angely Rowe MD documented in this encounter Miscellaneous Notes * Assessment & Plan Note - Angely Rowe MD - 04/08/2017 1:17 PM CDT Associated Problem(s): Shortness of breath (Resolved 06/04/2018) He has COPD and on home O2. Stable shortness of breath. No heart failure. Stress test in 2016-for ischemia * Assessment & Plan Note - Angely Rowe MD - 04/08/2017 1:13 PM CDT Associated Problem(s): Falls frequently Last time he fell down on March 24, 2017 and there was sacral fracture with 1 spot suggestive of Mets. I advised patient if the pain is still there to go back to the emergency room to have this fraction re-evaluated. * Assessment & Plan Note - Angely Rowe MD - 04/08/2017 1:13 PM CDT Associated Problem(s): Essential hypertension, benign controlled * Assessment & Plan Note - Angely Rowe MD - 04/08/2017 1:11 PM CDT Associated Problem(s): Atrial flutter (CMS/HCC) (HCC) Rate is controlled using metoprolol.. On Xarelto. He is having frequent falls and last time he felldown about 10 days ago he had a fracture in his sacral spine. At this time I discussed with the patient and I called his daughter and discussed that I would stop the Xarelto given these frequent falls. Both patient and daughter agree documented in this encounter Plan of Treatment Not on file documented as of this encounter Visit Diagnoses Diagnosis Atrial flutter, unspecified type (HCC)- Primary Essential hypertension, benign Shortness of breath Falls frequently Personal history of fall documented in this encounter Discontinued Medications Medication Sig Discontinue Reason Start Date End Da te rivaroxaban (XARELTO) tablet Take 15 mg by mouth daily. 04/08/2017 documented as of this encounter Historical Medications * This list may reflect changes made after this encounter. sertraline (ZOLOFT) 50 mg tablet Take 50 mg by mouth daily. ipratropium-albute rol (DUO-NEB) 0.5-2.5 mg/3 mL nebulizer solutionIndication s:Chronic Obstructive Pulmonary Disease with Bronchospasms Take by nebulization every 6 (six) hours. gabapentin (NEURONTIN) 100 mg capsule Take by mouth 3 (three) times a day. zinc sulfate 220 mg tablet Take by mouth. 05/31/20 18 traMADol (ULTRAM) 50 mg tablet Take 50 mg by mouth every 6 (six) hours as needed for pain. 05/31/20 18 tiotropium (SPIRIVA) 18 mcg per inhalation capsule Place 1 capsule into inhaler and inhale once daily. 05/31/20 18 omeprazole (PriLOSEC) 20 mg capsule Take 20 mg by mouth 2 (two) times a day. 05/31/20 18 multivitamin tablet,chewable Take by mouth. 05/31 18 melatonin 5 mg tablet 05/31/20 18 losartan (COZAAR) 50 mg tablet Take 50 mg by mouth 2 (two) times a day. 05/31/20 18 glipiZIDE (GLUCOTROL) 5 mg tabletIndications: type 2 diabetes mellitus Take 5 mg by mouth once. 05/31/20 18 fluticasone (FLOVENT DISKUS) 250 mcg/actuation diskus inhaler Inhale 1 puff 2 (two) times a day. Rinse mouth with water after use to reduce aftertaste and incidence of candidiasis. Do not swallow. 05/31/20 18 aspirin 81 mg tablet Take 81 mg by mouth daily. 05/31/20 18 ascorbic acid (ascorbic acid) 500 mg tablet,chewable Take 500 mg by mouth. 05/31/20 18 ALPRAZolam (XANAX) 0.5 mg tablet Take 0.5 mg by mouth nightly as needed for anxiety. 05/31/20 18 rivaroxaban (XARELTO) tablet Take 15 mg by mouth daily. 04/08/20 17 metoprolol (LOPRESSOR) 25 mg tablet Take 25 mg by mouth 2 (two) times a day. 06/11/20 17 added in this encounter Care Teams Leather Products Supervisor Relationship Specialty Start Date End Date Master Colbert MD [address] [place] [address] PCP - General 12/16/13 04/18/17 documented as of this encounter
--- OUTSIDE RECORDS SUMMARY | 2024-10-21 23:06 | XMS_ITS | Encounter Summary ---
Author Organization [facility] Healthcare Address [address] [place] [address] Care Team Providers Care Digital Color Press Operator Name Role Phone Leoncio Kilpatrick MD Primary Care Provider [phone] Reason for Visit * Reason Comments Back Pain Encounter Details Date Type Department Care Team (Latest Contact Info) Description 05/31/2018 1:02 AM CDT - 06/06/2018 3:32 PM CDT Hospital Encounter [facility] [address] [place] [address] Deangelo Loya MD [address] [place] [address] Denise Decker MD [address] [place] [address] Bernardino Penny MD [address] [place] [address] Corazon Slaughter MD [address] [place] [address] Chapito Evans MD [address] [place] [address] Acute midline low back pain, with sciatica presence unspecified (Primary Dx); Closed stable burst fracture of twelfth thoracic vertebra, initial encounter ([facility]); Closed fracture dislocation of lumbar spine, initial encounter ([facility]); Accidental fall, initial encounter Discharge Disposition: Discharge to SNF Social History Tobacco Use Types Packs/Day Years Used Date Smoking Tobacco: Former Alcohol Use Standard Drinks/Week Comments Yes 0 (1 standard drink = 0.6 oz pur e alcohol) 1OR 2 DAILY Sex and Gender Information Value Date Recorded Sex Assigned at Not on file 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 Gender Identity Not on file Sexual Orientation Not on file documented as of this encounter Last Filed Vital Signs Vital Sign Reading Time Taken Comments Blood Pressure 134/64 06/06/2018 12:35 PM CDT Pulse 81 06/06/2018 12:35 PM CDT Temperature 36.6 ??C (97.9 ??F) 06/06/2018 1 2:58 PM CDT drinking coffee Respiratory Rate 18 06/06/2018 12:3 5 PM CDT Oxygen Saturation 94% 06/06/2018 12: 35 PM CDT Inhaled Oxygen Concentration - - Weight 77.1 kg (170 lb) 05/31/2018 1:04 AM CDT Height 182.9 cm (6') 05/31/2018 1:04 AM CDT Body Mass Index 23.06 05/31/2018 1:04 AM CDT documented in this encounter Discharge Summaries * Justa Clark NP - 06/06/2018 2:02 PM CDT Inpatient Discharge Summary BRIEF OVERVIEW Admitting Provider: Bernardino Penny MD Discharge Provider: Bernardino Penny MD Primary Care Physician at Discharge: Leoncio Kilpatrick MD [phone] Admission Date: 05/31/2018 Discharge Date: 06/06/2018 Primary Discharge Diagnosis: T12 burst fracture L1 vertebral fracture Small left pleural effusion Secondary Discharge Diagnosis: Atrial flutter ([facility]) Essential hypertension, benign Falls frequently T12 burst fracture ([facility]/HCC) L1 vertebral fracture ([facility]/HCC) ETOH abuse COPD (chronic obstructive pulmonary disease) (CMS/HCC) Neuropathy ([facility]/HCC) Major depressive disorder Chronic renal failure Anxiety Pleural effusion Heterotopic ossification Acute pain due to trauma Shortness of breath On home oxygen therapy Therapy Leukocytosis Atelectasis DETAILS OF HOSPITAL STAY Presenting Problem/History of Present Illness: Ludin Mcguire is a 72 y.o. male with a pertinent medical history that includes DM, peripheral neuropathy, COPD with home 02 at 2-3 liters, HTN, CHF, depression, anxiety, CRF, and AFIB without anticoagulation who presents to [facility] Emergency Room after suffering a fall while at home. ? ?Per the patient, he was standing at the refrigerator when he lost his balance and fell backwards onto his back. ??The patient denies any loss of consciousness, or striking his head, along with any dizziness or chest pain prior to, during or after the fall. ??The patient states that he lives alone. ??Upon arrival to the emergency room, the patient was alert, cooperative, and adequately protectinghis airway, endorsing pain to his back. ??Multiple radiographs were obtained that demonstrated a T12 burst with minimal retropulsion and an L1 burst fracture. ??Orthopedics was consulted and the patie nt was admitted to the hospital under the care of the geriatric trauma service for continued evaluation and management. Hospital Course: #T12 and L1 Burst Fracture: -S/P Ortho CS -Non-op management -TLSO brace when out of bed -PT/OT -Pain Control -S/P upright imaging (06/01): Brace, unchanged severely collapsed T12 burst fracture with mild -Retropulsion and mild L1 compression fracture ? #ETOH Withdrawal -Daughter states the patient drinks a 12 pack per day, with previous withdrawal and seizures -Sitter -Fall and seizure precautions -CIWA monitoring -Folic acid/Multivitamins/Thiamine/Librium ?? #Left pleural effusion -IS -repeat chest x-ray demonstrated (06/02): small left pleural effusion with some atelectasis at the left lung base ?? #Prophylaxis -Lovenox ?? #Dispo -Placement pending accepting facility ?? Active Issues Requiring Follow-up: T12 burst fracture L1 vertebral fracture Small left pleural effusion Test Results Pending at Discharge: Order Current Status Chemical dependency drug screen Collected (06/02/18 0880) Operative Procedures Performed: None Other Procedures: none Pertinent Test Results: EXAMINATION: 2 view chest radiograph ?? IMPRESSION: There is a small left pleural effusion with some atelectasis at the left lung base. ?? Otherwise, the lungs appear clear. Heart size is normal. ?? Incidentally noted are compression fractures of the thoracic spine. Please see separate thoracic spine MR report for more details EXAMINATION: Thoracic spine 2 views; lumbar spine 2 views ?? HISTORY: T12 burst and L1 fractures ?? FINDINGS: 3 radiographs of the thoracic and 2 radiographs of lumbar spine are compared to prior study from 05/31/2018. CT examination of the thoracic and lumbar spine from 05/30/2018 and MRI of the thoracic and lumbar spine from 05/31/2018 were reviewed. Patient is in a brace. Examination is limited secondary to motion. The severely collapsed T12 burst fracture with mild retropulsion and mild L1 compression fracture are again noted. Disc spaces appear normal. Right total hip arthroplasty is present. ?? IMPRESSION: 1. Brace, unchanged severely collapsed T12 burst fracture with mild retropulsion and mild L1 compression fracture ??EXAMINATION: Thoracic spine 2 views; lumbar spine 2 views ?? HISTORY: T12 burst and L1 fractures ?? FINDINGS: 3 radiographs of the thoracic and 2 radiographs of lumbar spine are compared to prior study from 05/31/2018. CT examination of the thoracic and lumbar spine from 05/30/2018 and MRI of the thoracic and lumbar spine from 05/31/2018 were reviewed. Patient is in a brace. Examination is limited secondary to motion. The severely collapsed T12 burst fracture with mild retropulsion and mild L1 compression fracture are again noted. Disc spaces appear normal. Right total hip arthroplasty is present. ?? IMPRESSION: 1. Brace, unchanged severely collapsed T12 burst fracture with mild retropulsion and mild L1 compression fracture Discharge Details Physical Exam at Discharge: Discharge Condition: stable Pulse: 81 Resp: 18 BP: 134/64 Temp: 36.6 ??C (97.9 ??F) (drinking coffee) Weight: 77.1 kg (170 lb) Pertinent Exam Findings at Discharge: .Constitutional: cooperative and no apparent distress Head: normocephalic, without obvious abnormality, atraumatic Neurologic: oriented to person, place Eyes: conjunctivae/corneas clear. PERRL, EOMs intact HENT: lips, mucosa, and tongue normal Neck: supple, symmetrical, trachea midline Chest: normal appearance, no masses or tenderness Respiratory: normal chest rise and fall and diminished breath sounds bilateral Cardiovascular: regular rate and rhythm, S1, S2 normal, no murmur, click, rub or gallop Gastrointestinal: soft, non-tender; bowel sounds present; no masses, no organomegaly Musculoskeletal: TLSO brace in place Pulses: radial: bilateral normal Skin: skin color, texture, turgor normal. No rashes or lesions Discharge Disposition: Code Status at Discharge: full Discharge Instructions: Activity Instructions Discharge Activity: Additional Activity Restrictions: You may take of your TLSO brace when you are in bed, but you have to wear your TLSO brace while youare out of bed Discharge Activity: Driving restrictions -Do not drive Discharge Activity: Lifting restrictions -Do NOT lift greater than 10 pounds until you have been cleared to do so. Discharge Activity: Stairs -You may climb stairs with your TLSO brace on Discharge Activity: Walking -You may walk as tolerated with your TLSO brace on Diet Instructions Adult Discharge Diet Diet Type: Return to previous diet Other Instructions Call provider for: worsening or unrelieved pain in your back Sudden or worsening shortness of breath Call provider for: increased temperature -Temperature greater than 101 degrees F Call provider for: nausea, vomiting, diarrhea -If you have persistent nausea, vomiting or diarrhea that does not stop Call provider for: redness, tenderness, or signs of infection (pain, swelling, redness, odor or green/yellow discharge around incision site) Call provider for: severe uncontrolled pain Call provider for: any other concerns or questions Call provider if: you feel dizzy, very tired or like you may faint Care Instructions: Shower -You may shower without your TLSO brace Special Instructions: Continue following PT/OT instructions Discharge Medications: Your medication list START taking these medications acetaminophen 500 mg capsule Take 2 capsules (1,000 mg total) by mouth every 6 (six) hours as needed for pain. cyclobenzaprine 5 mg tablet Commonly known as: FLEXERIL Take 1 tablet (5 mg total) by mouth 3 (three) times a day as needed for muscle spasms. lidocaine 5 % Commonly known as: LIDODERM Apply 2 patches topically daily. Remove & discard patch within 12 hours or as directed by . oxyCODONE 5 mg immediate release tablet Commonly known as: ROXICODONE Take 1 tablet (5 mg total) by mouth every 4 (four) hours as needed for pain for up to 14 days. senna-docusate 8.6-50 mg Commonly known as: PERICOLACE Take 2 tablets by mouth 2 (two) times a day. CONTINUE taking these medications gabapentin 100 mg capsule Commonly known as: NEURONTIN ipratropium-albuterol 0.5-2.5 mg/3 mL nebulizer solution Commonly known as: DUO-NEB losartan 25 mg tablet Commonly known as: COZAAR metoprolol 50 mg tablet Commonly known as: LOPRESSOR omeprazole 40 mg capsule Commonly known as: PriLOSEC predniSONE 5 mg tablet Commonly known as: DELTASONE PROAIR HFA 90 mcg/actuation inhaler Generic drug: albuterol HFA sertraline 50 mg tablet Commonly known as: ZOLOFT simvastatin 10 mg tablet Commonly known as: ZOCOR STOP taking these medications ALPRAZolam 1 mg tablet Commonly known as: XANAX Outpatient Follow-Up: Future Appointments Date Time Provider Department Center 06/16/2018 9:00 AM Angely Rowe MD [facility] Gilliam 06/20/2018 1:30 PM [facility] ACUTE CRITICAL CARE TEAM [facility] Contact Information for Follow-ups [facility] [address] [place] [phone] Next Steps: Follow up Instructions: you are scheduled to have a chest x-ray prior to your appointment, please arrive early to have this done prior to your appointment time, please call [phone] if you need to reschedule Questions: Instructions for follow-up: you are scheduled to have a chest x-ray prior to your appointment, please arrive early to have this done prior to your appointment time, please call [phone] if you need to reschedule Appointment Date: 06/20/2018 Appointment Time: 1:30 PM Justa Clark [facility] Cosigned by Bernardino Penny MD at 06/08/2018 6:16 PM CDT Associated attestation - Bernardino Penny MD - 06/08/2018 6:16 PM CDT This is a documentation only encounter Bernardino Penny MD documented in this encounter Discharge Instructions * Discharge Instructions* Antonietta Dunham NP - 06/04/2018 8:43 AM CDT Images from the original note were not included. Acute Wound Care WHAT YOU NEED TO KNOW: An acute wound is an injury that causes a break in the skin. DISCHARGE INSTRUCTIONS: Medicines: ?? NSAIDs help decrease swelling, pain, and fever. This medicine is available with or without a doctor's order. NSAIDs can cause stomach bleeding or kidney problems in certain people. If you take blood thinner medicine, always ask your healthcare provider if NSAIDs are safe for you. Always read themedicine label and follow directions. ?? Acetaminophen decreases pain and fever. It is available without a doctor's order. Ask how much to take and how often to take it. Follow directions. Acetaminophen can cause liver damage if not taken correctly. ?? Antibiotics may be given to prevent or treat an infection caused by bacteria. ?? Take your medicine as directed. Contact your healthcare provider if you think your medicine is not helping or if you have side effects. Tell him if you are allergic to any medicine. Keep a list ofthe medicines, vitamins, and herbs you take. Include the amounts, and when and why you take them. Bring the list or the pill bottles to follow-up visits. Carry your medicine list with you in case of a n emergency. Follow up with your healthcare provider as directed: You may need to return to have your stitches or mayito removed, wound checked, or bandage changed. Write down your questions so you remember to ask them during your visits. Wound care: ?? If your wound was closed with thin strips of medical tape, keep them clean and dry. The strips of medical tape will fall off on their own. Do not pull them off. ?? Keep the bandage clean and dry. Do not remove the bandage over your wound unless your healthcareprovider says it is okay. ?? Wash your hands before and after you take care of your wound to prevent infection. ?? Clean the wound as directed. If you cannot reach the wound, have someone help you. ?? If you have packing, make sure all the gauze used to pack the wound is taken out and replaced asdirected. Keep track of how many gauze dressings are placed inside the wound. Contact your healthcare provider if: ?? You have muscle, joint, or body aches, sweating, or a fever. ?? You have more swelling, redness, or bleeding in your wound. ?? Your skin is itchy, swollen, or you have a rash. ?? You have questions or concerns about your condition or care. Seek care immediately if: ?? You have pus or a foul odor coming from the wound. ?? You have sudden trouble breathing or chest pain. ?? Blood soaks through your bandage. ?? 2016 [employer]. Information is for End User's use only and may not be sold, redistributed or otherwise used for commercial purposes. All illustrations and images included in CareNotes?? are the copyrighted property of [employer]. or [employer]. The above information is an occupational therapist aide only. It is not intended as medical advice for individual conditions or treatments. Talk to your doctor, nurse or pharmacist before following any medical regimen to see if it is safe and effective for you. Post Concussion Syndrome WHAT YOU NEED TO KNOW: What is post-concussion syndrome (PCS)? PCS is a group of symptoms that affect your nerves, thinking, and behavior. PCS develops shortly after a concussion and can last for weeks to months. What increases my risk for PCS? ?? Older age ?? A substance abuse problem, such as drugs or alcohol ?? A past head injury ?? A current mood or anxiety disorder ?? Poor physical health before your concussion What are the signs and symptoms of PCS? ?? Headaches or vision problems ?? Dizziness or poor balance ?? Forgetfulness or problems concentrating ?? Problems with sleep ?? Changes in your personality ?? Seizures ?? Depression or anxiety How is PCS diagnosed? Your healthcare provider will ask about your injury. Tell him when it happened, what hit you, and the force of the blow. You, or someone close to you, should tell him about any confusion you have or changes in your behavior. You may need any of the following: ?? A neurologic exam is used to test your memory and your ability to recognize familiar things. It will also show healthcare providers your eye, verbal, and muscle responses. ?? Blood and urine tests will be done to make sure there is no other cause for your symptoms. Infections and chemicals, such as alcohol, can affect your memory and behavior. ?? CT scan pictures of your head may show an injury. You may be given contrast liquid to help healthcare providers see the pictures better. Tell the healthcare provider if you have ever had an allergic reaction to contrast liquid. How is PCS treated? Treatment of PCS will focus on your symptoms. You may need any of the following: ?? Acetaminophen decreases pain. It is available without a doctor's order. Ask how much to take andhow often to take it. Follow directions. Acetaminophen can cause liver damage if not taken correctly. ?? NSAIDs, such as ibuprofen, help decrease swelling, pain, and fever. This medicine is available without a doctor's order. Follow directions. NSAIDs can cause stomach bleeding or kidney problems if not taken correctly. If you take blood thinner medicine, always ask if NSAIDs are safe for you. ?? Antidepressants may be given for depression or sleep problems. ?? Migraine medicines may be given for migraine headaches. What are the risks of PCS? PCS may decrease your ability to function at home, school, or work. You may develop persistent post-concussion syndrome. You may develop second-impact syndrome if you have another concussion before you have recovered from the first. Second-impact syndrome can be life-threatening. How can I prevent PCS? ?? Make your home safe. Home safety measures can help prevent head injuries that could lead to a concussion. Install handrails for every staircase. Put soft bumpers on furniture edges and corners. Secure furniture, such as dressers and book cases so they do not fall over. ?? Always wear a seatbelt in the car. This helps decrease your risk for a head injury if you are earl car accident. ?? Wear protective sports equipment that fits properly. Helmets help decrease your risk for a serious brain injury. Talk to your healthcare provider about other ways that you can decrease your risk for a concussion if you play sports. What can I do to manage my symptoms? ?? Rest from physical and mental activities as directed. Mental activities need you to think, concentrate, and pay attention. Rest will help you recover from your concussion. Ask your healthcare provider when you can return to school and other daily activities. ?? Go to therapy as directed. A cognitive behavioral therapist teaches you skills to help with any thinking and behavior problems you may have. An occupational therapist teaches your skills to help with daily activities. ?? Do not participate in sports or physical activities until your healthcare provider says it is okay. These activities could make your symptoms worse or lead to another concussion. Your healthcare provider will tell you when it is okay to return to sports or physical activities. Where can I find more information? ?? [employer] [address] [place] [address] Phone: Phone: Web Address: http://www.[employer] One Call 911 or have someone else call for any of the following: ?? You have a seizure. ?? You have trouble breathing. ?? You are not responding or you cannot be woken. When should I seek immediate care? ?? You have a sudden headache that seems different or much worse than your usual headaches. ?? You cannot stop vomiting. ?? You have sudden changes in your vision. When should I contact my healthcare provider? ?? You have nausea or are vomiting. ?? You have trouble concentrating. ?? You have difficulty speaking or thinking. ?? Your symptoms get worse. ?? You have questions or concerns about your condition or care. CARE AGREEMENT: You have the right to help plan your care. Learn about your health condition and how it may be treated. Discuss treatment options with your caregivers to decide what care you want to receive. You always have the right to refuse treatment. The above information is an occupational therapist aide only. It is not intended as medical advice for individual conditions or treatments. Talk to your doctor, nurse or pharmacist before following any medical regimen to see if it is safe and effective for you. ?? 2016 [employer]. Information is for End User's use only and may not be sold, redistributed or otherwise used for commercial purposes. All illustrations and images included in CareNotes?? are the copyrighted property of [employer] or [employer]. documented in this encounter Medications at Time of Discharge [...] 14 days. 30 tablet 06/06/2018 06/20/20 18 documented as of this encounter Ordered Prescriptions Prescription Sig Dispense Quantity Refills Last Filled Start Date End Date lidocaine (LIDODERM) 5 % Apply 2 patches topically daily. Remove & discard patch within 12 hours or as directed by . 15 patch 06/07/2018 cyclobenzaprine (FLEXERIL) 5 mg tablet Take 1 tablet (5 mg total) by mouth 3 (three) times a day as needed for muscle spasms. 30 tablet 06/06/2018 senna-docusate (PERICOLACE) 8.6-50 mg Take 2 tablets by mouth 2 (two) times a day. 60 tablet 06/06/2018 acetaminophen 500 mg capsule Take 2 capsules (1,000 mg total) by mouth every 6 (six) hours as needed for pain. 30 tablet 06/06/2018 oxyCODONE (ROXICODONE) 5 mg immediate release tabletIndications: Pain Take 1 tablet (5 mg total) by mouth every 4 (four) hours as needed for pain for up to 14 days. 30 tablet 06/06/2018 8 documented in this encounter Discharge Disposition Disposition Code Departure Means Destination Discharge to SNF Other documented in this encounter Progress Notes * Adwoa Jefferson, ADINA - 06/06/2018 1:57 PM CDT 06/06/18 4016 Discharge Summary Chart reviewed For Medical Necessity Discharge Disposition SNF, Commercial Insurance, Short term Skilled Specify Facility [facility] Facility Contact Number [phone] Discharge Records Transfer Form Completed;Chart Copied Discharge Additional Assistance Does the patient need discharge transport arranged? Yes Has discharge transport been arranged? Yes Details of Transportation [facility] [phone] Trip [id number] What day is the transport expected? 05/30/18 Discharge Transportation Communication Mode of transport has been discussed with the patient/family. All are agreeable to the plan and understand their responsibilities to ensure the safe transfer. No further CM/SW intervention is anticipated at this time. Post Discharge Care Provider Post Discharge Care Plan DC Summary has been faxed to next level of care provider (see Follow Up Providers) [facility] F: [phone] R: [phone] [place] [phone] Trip [id number] Pt has been accepted at [facility]. Facility was able to accept pt as he does not come up as a traditional sex offender on their database, but rather, pt's record indicates public indecency. [employer] has approved, auth #: [id number]. Facility aware and anticipate pt's arrival. Pt aware and is agreeable. Pt's dtr Adwoa was notified, VM left as she is on vacation. Adwoa had indicated to SW ealrier in the week that is was alright if SW left a VM indicating where pt would be going at discharge. Transportation has been arranged through [facility]. Mode of transport has been discussed with the patient/family, doctors, nurses, and all are agreeable to plan and understand their responsibilities to ensure the safe transfer. Certificate of Medical Necessity completed due to T12, L1 frx. No further social work intervention is anticipated at this time. Adwoa Jefferson LMSW [facility] Social Work [phone] * Monchokendall Renetta, RD - 06/06/2018 12:36 PM CDT Nutrition Assessment Reason for Assessment: Initial Nutrition Assessment Encounter Date: 06/06/18 12:36 PM Patient is a 72 y.o. male with chief complaint of pertinent medical history that includes DM, peripheral neuropathy, COPD with home 02 at 2-3 liters, HTN, CHF, depression, anxiety, CRF, and AFIB without anticoagulation who presents to [facility] Emergency Room after suffering a fall while at home. LOS is 6 days. HPI: etoh abuse per daughter report Objective Past Medical History: Diagnosis Date ??? Anxiety ??? Atrial fibrillation (CMS/HCC) ??? Chronic renal failure ??? COPD (chronic obstructive pulmonary disease) (CMS/HCC) ??? Depression ??? Diabetes mellitus (CMS/HCC) ??? Diastolic dysfunction ??? Hypertension ??? On home O2 ??? Peripheral neuropathy Past Surgical History: Procedure Laterality Date ??? FOOT AMPUTATION THROUGH METATARSAL ??? TONSILLECTOMY Social History Substance Use Topics ??? Smoking status: Former Smoker ??? Smokeless tobacco: Not on file ??? Alcohol use Yes Comment: 1OR 2 DAILY Family History Problem Relation Age of Onset ??? Car Accident Mother ??? Suicidality Father Anthropometrics: Wt Readings from Last 3 Encounters: 05/31/18 77.1 kg (170 lb) 04/08/17 75.8 kg (167 lb) Anthropometrics Weight: 77.1 kg (170 lb) Admission Weight : 77.1 kg Weight Change: 1.36 kg (3.00 lbs) IBW/kg (Calculated) : 80.7 kg Height: 182.9 cm (6') Weight in (lb) to have BMI = 25: 183.9 BMI (Calculated): 23.1 Nutrition Needs Calculations: Calculated Energy Needs Using Equations Weight: 77.1 kg (170 lb) Height: 182.9 cm (6') Temp: (!) 34.9 ??C (94.8 ??F) Estimated Protein Needs Type of Weight Used for Estimated Protein : Current Protein Needs Based on g/k.2 Total Protein Estimated Needs (gm): 92.53 Kcal/kg Type of Weight Used for Estimated Kcals: Current Kcal/k Total Kcal/kg Estimated Needs : 1927.78 Vital Signs: BP: 134/64 Temp: (!) 34.9 ??C (94.8 ??F) Pulse: 81 Resp: 18 SpO2: 94 % Medications: Scheduled Meds: ipratropium 0.5 mg nebulization QID (RT) And albuterol 2.5 mg nebulization QID (RT) enoxaparin 30 mg subcutaneous Q12H KALPESH gabapentin 100 mg oral TID lidocaine 2 patch transdermal Daily losartan 50 mg oral Daily metoprolol (LOPRESSOR) tablet/capsule 50 mg oral Daily multivitamin with minerals 1 tablet oral Daily pantoprazole DR 40 mg oral BID predniSONE 5 mg oral Daily senna-docusate 2 tablet oral BID sertraline 50 mg oral Daily simvastatin 10 mg oral Nightly Continuous Infusions: PRN Meds: ??? acetaminophen ??? chlordiazePOXIDE OR chlordiazePOXIDE ??? cyclobenzaprine ??? oxyCODONE Lab Review: Creatinine Date Value Ref Range Status 06/05/2018 1.25 0.80 - 1.30 mg/dL Final No results found for: HGBA1C Nursing Assessment: No intake or output data in the 24 hours ending 06/06/18 1236 Gastrointestinal Gastrointestinal (WDL): Exceptions to WDL Abdomen Inspection: Soft, Nondistended, Rounded Bowel Sounds (All Quadrants): Active Palpation: Soft, Tenderness Last BM Date: 06/01/18 Passing Flatus: Yes GI Symptoms: Constipation Gastrointestinal Additional Assessments: No Last BM Date: 06/01/18 Freddie Scale Score: 18 Skin Integrity: Scaling, Other (Comment) (Flaky) Type of Wound (LDA): Wound Dietary Orders Start Ordered 06/06/18 1300 Oral Nutrition Supplements Select Supplement: Ensure Plus - Straw 3 times daily Question: Select Supplement: Answer: Ensure Plus - Straw 06/06/18 1111 06/02/18 1004 Adult Diet Regular, Restricted; Mechanical Soft Diet effective now Question Answer Comment ([facility]) Diet type Regular ([facility]) Diet type Restricted Modified Consistency: Mechanical Soft 06/02/18 1004 Nutrition Screen What diet do you follow at home?: No diet followed Have You Recently Lost Weight Without Trying?: No Poor Oral Intake for Four or More Days Prior to Admission: No Impression: Pt very sleepy, unable to provide nutrition and weight history. Pt did eat 100% of breakfast, unsure if pt was eating well before. Pt willing to try ensure plus strawberry. +etoh, MVI, thiamin, folicacid. NUTRITION DIAGNOSIS Nutrition Diagnosis 1: Inadequate oral intake Related to: Loss of appetite Evidenced by: Other (comment) (poor intake) INTERVENTION Continue mechanical soft diet. Ordered ensure plus strawberry TID. Encouraged PO intake. Continue MVI. GOALS / MONITORING: Goals: Adequate nutrition to meet estimated needs by next assessment Monitoring and Evaluation: Appetite, PO intake, Supplement tolerance Renetta Rose MS RD LD #[phone] * Torri Marshall DPT - 06/05/2018 3:55 PM CDT Physical Therapy As supervising therapist, I agree with all information documented by PT student Annie Muhammad. * Paris Soriano NP - 06/05/2018 1:29 PM CDT [facility] Geriatric Trauma Surgery Daily Progress Note Admit: 05/31/2018 1:02 AM Date: December 05, 2018 Length of Stay: 6 Attending: Bernardino Penny MD POD:* No surgery found * History: Ludin Mcguire is a 72 y.o. male with a pertinent medical history that includes DM, peripheral neuropathy, COPD with home 02 at 2-3 liters, HTN, CHF, depression, anxiety, CRF, and AFIB without anticoagulation who presents to [facility] Emergency Room after suffering a fall while at home. Per the patient, he was standing at the refrigerator when he lost his balance and fell backwards onto his back. The patient denies any loss of consciousness, or striking his head, along with any dizziness or chest pain prior to, during or after the fall. The patient states that he lives alone. Upon arrival to the emergency room, the patient was alert, cooperative, and adequately protecting his airway, endorsing pain to his back. Multiple radiographs were obtained that demonstrated a T12 burst with minimal retropulsion and an L1 burst fracture. Orthopedics was consulted and the patient was admitted to the hospital under the care of the geriatric trauma service for continued evaluation and management. ?? Interval History: No issues overnight Pain:controlled Nausea: No Flatus: yes Bowel Movement: yes 06/04 Medications: No current facility-administered medications for this encounter. Current Outpatient Prescriptions: ??? losartan (COZAAR) 25 mg tablet, Take 50 mg by mouth., Disp: , Rfl: ??? metoprolol (LOPRESSOR) 50 mg tablet, Take 50 mg by mouth., Disp: , Rfl: ??? acetaminophen 500 mg capsule, Take 2 capsules (1,000 mg total) by mouth every 6 (six) hours as needed for pain., Disp: 30 tablet, Rfl: 0 ??? cyclobenzaprine (FLEXERIL) 5 mg tablet, Take 1 tablet (5 mg total) by mouth 3 (three) times a day as needed for muscle spasms., Disp: 30 tablet, Rfl: 0 ??? gabapentin (NEURONTIN) 100 mg capsule, Take by mouth 3 (three) times a day., Disp: , Rfl: ??? ipratropium-albuterol (DUO-NEB) 0.5-2.5 mg/3 mL nebulizer solution, Take by nebulization every 6 (six) hours., Disp: , Rfl: ? ? lidocaine (LIDODERM) 5 %, Apply 2 patches topically daily. Remove & discard patch within 12hours or as directed by MD., Disp: 15 patch, Rfl: 0 ??? omeprazole (PriLOSEC) 40 mg capsule, TK 1 C PO BID., Disp: , Rfl: 2 ??? predniSONE (DELTASONE) 5 mg tablet, TK 1/2 T PO D, Disp: , Rfl: 5 ??? PROAIR HFA 90 mcg/actuation inhaler, INL 2 PFS PO Q 4 TO 6 H PRF SOB, Disp: , Rfl: 0 ??? senna-docusate (PERICOLACE) 8.6-50 mg, Take 2 tablets by mouth 2 (two) times a day., Disp: 60 tablet, Rfl: 0 ??? sertraline (ZOLOFT) 50 mg tablet, Take 50 mg by mouth daily., Disp: , Rfl: ??? simvastatin (ZOCOR) 10 mg tablet, TK 1 T PO QD IN THE MONAE, Disp: , Rfl: 1 Diet: Activity: As tolerated, TLSO brace when out of bed Is&Os: No intake/output data recorded. No intake/output data recorded. Physical Exam: 24hr Min/Max: No Data Recorded Vitals: 06/06/18 1554 BP: 133/69 Pulse: 61 Resp: 20 Temp: 36.5 ??C (97.7 ??F) SpO2: 94% Constitutional: no apparent distress Head: atraumatic Neurologic: oriented to person, place Eyes: conjunctivae/corneas clear. PERRL, EOMs intact HENT: lips, mucosa, and tongue normal Neck: supple, symmetrical, trachea midline Chest: normal appearance, no masses or tenderness Respiratory: normal chest rise and fall and diminished breath sounds bilateral Cardiovascular: regular rate and rhythm, S1, S2 normal, no murmur, click, rub or gallop Gastrointestinal: soft, non-tender; bowel sounds present; no masses, no organomegaly Musculoskeletal: extremities normal, warm and well-perfused TLSO brace in place Pulses: radial: bilateral normal Skin: skin color, texture, turgor normal. No rashes or lesions Labs/Imaging: No results found for this or any previous visit (from the past 72 hour(s)). No results found. Assessment and Plan: Active Problems: Atrial flutter (CMS/HCC) Essential hypertension, benign Falls frequently T12 burst fracture (CMS/HCC) L1 vertebral fracture (CMS/HCC) ETOH abuse COPD (chronic obstructive pulmonary disease) (CMS/HCC) Neuropathy (CMS/HCC) Major depressive disorder Chronic renal failure Anxiety Pleural effusion Heterotopic ossification Acute pain due to trauma #T12 and L1 Burst Fracture: -S/P Ortho CS -Non-op management -TLSO brace when out of bed -PT/OT -Pain Control -S/P upright imaging (06/01): Brace, unchanged severely collapsed T12 burst fracture with mild -Retropulsion and mild L1 compression fracture ? #ETOH Withdrawal -Daughter states the patient drinks a 12 pack per day, with previous withdrawal and seizures -Sitter -Fall and seizure precautions -CIWA monitoring -Folic acid/Multivitamins/Thiamine/Librium #Left pleural effusion -IS -repeat chest x-ray demonstrated (06/02): small left pleural effusion with some atelectasis at the left lung base #Prophylaxis -Lovenox #Dispo -Placement pending accepting facility Kate Soriano NP Cosigned by Ruben Brown MD at 01/08/2020 10:37 AM CDT L SANDER Associated attestation - Ruben Brown MD - 01/08/2020 10:37 AM CDT This note is being signed by Ruben rBown as Dr Penyn has left the [place]. I was not involved in this encounter with the patient but am administratively signing this note to close the encounter in [facility]. * Justa Clark NP - 06/05/2018 8:27 AM CDT [facility] Geriatric Trauma Surgery Daily Progress Note Admit: 05/31/2018 1:02 AM Date: June 05, 2018 Length of Stay: 5 Attending: Bernardino Penny MD POD:* No surgery found * History: Ludin Mcguire is a 72 y.o. male with a pertinent medical history that includes DM, peripheral neuropathy, COPD with home 02 at 2-3 liters, HTN, CHF, depression, anxiety, CRF, and AFIB without anticoagulation who presents to [facility] Emergency Room after suffering a fall while at home. Per the patient, he was standing at the refrigerator when he lost his balance and fell backwards onto his back. The patient denies any loss of consciousness, or striking his head, along with any dizziness or chest pain prior to, during or after the fall. The patient states that he lives alone. Upon arrival to the emergency room, the patient was alert, cooperative, and adequately protecting his airway, endorsing pain to his back. Multiple radiographs were obtained that demonstrated a T12 burst with minimal retropulsion and an L1 burst fracture. Orthopedics was consulted and the patient was admitted to the hospital under the care of the geriatric trauma service for continued evaluation and management. ?? Interval History: No issues overnight Pain:controlled Nausea: No Flatus: yes Bowel Movement: yes 06/04 Medications: Current Facility-Administered Medications: ??? acetaminophen (TYLENOL) tablet 1,000 mg, 1,000 mg, oral, Q6H PRN, Shahnaz Coto MD, 1,000 mg at 06/05/18812 ??? albuterol (PROVENTIL,VENTOLIN) 2.5 mg/0.5 mL nebulizer solution 2.5 mg, 2.5 mg, nebulization, QID (RT), 2.5 mg at 06/05/18 0733 AND ipratropium (ATROVENT) 0.02 % nebulizer solution 0.5 mg, 0.5 mg, nebulization, QID (RT), Bernardino Penny MD, 0.5 mg at 06/05/18 0733 ??? chlordiazePOXIDE (LIBRIUM) capsule 25 mg, 25 mg, oral, Q4H PRN, 25 mg at 06/01/18 1711 OR chlordiazePOXIDE (LIBRIUM) capsule 25 mg, 25 mg, oral, Q2H PRN, Shahnaz Coto MD, 25 mg at 06/02/18 1630 ??? cyclobenzaprine (FLEXERIL) tablet 5 mg, 5 mg, oral, TID PRN, Antonietta Dunham NP, 5 mg at 06/05/18822 ??? enoxaparin (LOVENOX) syringe 30 mg, 30 mg, subcutaneous, Q12H KALPESH, Justa Clark NP, 30 mg at 06/05/18822 ??? gabapentin (NEURONTIN) capsule 100 mg, 100 mg, oral, TID, Antonietta Dunham NP, 100 mg at 06/05/18812 ??? lidocaine (LIDODERM) 5 % patch 2 patch, 2 patch, transdermal, Daily, Antonietta Dunham NP, Last Rate: 0 mL/hr at 06/04/182040, 2 patch at 06/05/18813 ??? losartan (COZAAR) tablet 50 mg, 50 mg, oral, Daily, Justa Clark NP, 50 mg at 06/05/18812 ??? metoprolol (LOPRESSOR) tablet 50 mg, 50 mg, oral, Daily, Antonietta Dunham NP, 50 mg at 06/05/18812 ??? multivit bcakjwxa-mkbn-FC-calcium (THERA-M) tablet 1 tablet, 1 tablet, oral, Daily, Shahnaz Coto MD, 1 tablet at 06/05/18812 ??? oxyCODONE (ROXICODONE) tablet 5 mg, 5 mg, oral, Q4H PRN, Shahnaz Coto MD, 5 mg at 06/05/18 0554 ??? pantoprazole DR (PROTONIX) extended release tablet 40 mg, 40 mg, oral, BID, Antonietta Dunham NP, 40 mg at 06/05/18812 ??? predniSONE (DELTASONE) tablet 5 mg, 5 mg, oral, Daily, Justa Clark NP, 5 mg at 06/05/18812 ??? senna-docusate (PERICOLACE) 8.6-50 mg per tablet 2 tablet, 2 tablet, oral, BID, Antonietta Dunham NP, 2 tablet at 06/05/18812 ??? sertraline (ZOLOFT) tablet 50 mg, 50 mg, oral, Daily, Antonietta Dunham NP, 50 mg at 06/05/18812 ??? simvastatin (ZOCOR) tablet 10 mg, 10 mg, oral, Nightly, Antonietta Dunham NP, 10 mg at 06/04/182037 Diet: Dietary Orders Start Ordered 06/02/18 1004 Adult Diet Regular, Restricted; Mechanical Soft Diet effective now Question Answer Comment ([facility]) Diet type Regular ([facility]) Diet type Restricted Modified Consistency: Mechanical Soft 06/02/18 1004 Activity: As tolerated, TLSO brace when out of bed Is&Os: I/O last 2 completed shifts: In: - Out: 850 [Urine:850] No intake/output data recorded. Physical Exam: 24hr Min/Max: Temp Min: 36.2 ??C (97.2 ??F) Max: 36.7 ??C (98.1 ??F) Pulse Min: 68 Max: 89 BP Min: 107/61 Max: 155/83 Resp Min: 16 Max: 22 SpO2 Min: 92 % Max: 100 % Vitals: 06/05/18 0805 BP: 126/57 Pulse: 89 Resp: 18 Temp: 36.7 ??C (98.1 ??F) SpO2: 92% Constitutional: cooperative and no apparent distress Head: normocephalic, without obvious abnormality, atraumatic Neurologic: oriented to person, place Eyes: conjunctivae/corneas clear. PERRL, EOMs intact HENT: lips, mucosa, and tongue normal Neck: supple, symmetrical, trachea midline Chest: normal appearance, no masses or tenderness Respiratory: normal chest rise and fall and diminished breath sounds bilateral Cardiovascular: regular rate and rhythm, S1, S2 normal, no murmur, click, rub or gallop Gastrointestinal: soft, non-tender; bowel sounds present; no masses, no organomegaly Musculoskeletal: extremities normal, warm and well-perfused TLSO brace in place Pulses: radial: bilateral normal Skin: skin color, texture, turgor normal. No rashes or lesions Labs/Imaging: Recent Results (from the past 72 hour(s)) POCT glucose Collection Time: 06/03/18 8:10 AM Result Value Ref Range Glucose, POC, bld 117 70 - 199 mg/dL POCT glucose Collection Time: 06/03/18 11:32 AM Result Value Ref Range Glucose, POC, bld 169 70 - 199 mg/dL No results found. Assessment and Plan: Active Problems: Atrial flutter (CMS/HCC) Essential hypertension, benign Falls frequently T12 burst fracture (CMS/HCC) L1 vertebral fracture (CMS/HCC) ETOH abuse COPD (chronic obstructive pulmonary disease) (CMS/HCC) Neuropathy (CMS/HCC) Major depressive disorder Chronic renal failure Anxiety Pleural effusion Heterotopic ossification Acute pain due to trauma #T12 and L1 Burst Fracture: -S/P Ortho CS -Non-op management -TLSO brace when out of bed -PT/OT -Pain Control -S/P upright imaging (06/01): Brace, unchanged severely collapsed T12 burst fracture with mild -Retropulsion and mild L1 compression fracture ? #ETOH Withdrawal -Daughter states the patient drinks a 12 pack per day, with previous withdrawal and seizures -Sitter -Fall and seizure precautions -CIWA monitoring -Folic acid/Multivitamins/Thiamine/Librium #Left pleural effusion -IS -repeat chest x-ray demonstrated (06/02): small left pleural effusion with some atelectasis at the left lung base #Prophylaxis -Lovenox #Dispo -Placement pending accepting facility Justa Clark NP Cosigned by Bernardino Penny MD at 06/05/2018 8:53 PM CDT Associated attestation - Bernardino Penny MD - 06/05/2018 8:53 PM CDT The nurse practitioner saw and examined the patient, we discussed their findings, and I am in agreement with the plan based on the discussion with the nurse practitioner. I did not personally examinethe patient. Currently plan on SNF however complicated given criminal background. * Harini Barroso RRT - 06/05/2018 7:34 AM CDT 06/05/18 0733 Inhalation Therapy Tx Tx Not Given Inhalation tx SpO2 93 % O2 Therapy None (Room air) Pre-Tx Pulse 89 bpm Pre-Tx Resp 16 bpm Pre-TX Br Sounds Diminished Post-Tx Pulse 87 Post-Tx Resp 16 Post Tx Br Sounds Diminished Respiratory Effort Unlabored Pt tolerated treatment well, will continue treatment as tolerated. * Tracy Jara NP - 06/04/2018 8:00 AM CDT [facility] Geriatric Trauma Surgery Daily Progress Note Admit: 05/31/2018 1:02 AM Date: June 04, 2018 Length of Stay: 4 Attending: Bernardino Penny MD POD:* No surgery found * History: Ludin Mcguire is a 72 y.o. male with a pertinent medical history that includes DM, peripheral neuropathy, COPD with home 02 at 2-3 liters, HTN, CHF, depression, anxiety, CRF, and AFIB without anticoagulation who presents to [facility] Emergency Room after suffering a fall while at home. Per the patient, he was standing at the refrigerator when he lost his balance and fell backwards onto his back. The patient denies any loss of consciousness, or striking his head, along with any dizziness or chest pain prior to, during or after the fall. The patient states that he lives alone. Upon arrival to the emergency room, the patient was alert, cooperative, and adequately protecting his airway, endorsing pain to his back. Multiple radiographs were obtained that demonstrated a T12 burst with minimal retropulsion and an L1 burst fracture. Orthopedics was consulted and the patient was admitted to the hospital under the care of the geriatric trauma service for continued evaluation and management. ?? Interval History: No issues overnight Pain:controlled Nausea: No Flatus: No Bowel Movement: No Medications: Current Facility-Administered Medications: ??? acetaminophen (TYLENOL) tablet 1,000 mg, 1,000 mg, oral, Q6H PRN, Shahnaz Coto MD, 1,000 mg at 06/04/18 0809 ??? albuterol (PROVENTIL,VENTOLIN) 2.5 mg/0.5 mL nebulizer solution 2.5 mg, 2.5 mg, nebulization, QID (RT), 2.5 mg at 06/04/18 1620 AND ipratropium (ATROVENT) 0.02 % nebulizer solution 0.5 mg, 0.5 mg, nebulization, QID (RT), Bernardino Penny MD, 0.5 mg at 06/04/18 1620 ??? chlordiazePOXIDE (LIBRIUM) capsule 25 mg, 25 mg, oral, Q4H PRN, 25 mg at 06/01/18 1711 OR chlordiazePOXIDE (LIBRIUM) capsule 25 mg, 25 mg, oral, Q2H PRN, Shahnaz Coto MD, 25 mg at 06/02/18 1630 ??? cyclobenzaprine (FLEXERIL) tablet 5 mg, 5 mg, oral, TID PRN, Antonietta Dunham NP, 5 mg at 06/03/18 1436 ??? enoxaparin (LOVENOX) syringe 30 mg, 30 mg, subcutaneous, Q12H KALPESH, Justa Clark NP, 30 mg at 06/04/18 0811 ??? folic acid (FOLVITE) tablet 1 mg, 1 mg, oral, Daily, Shahnaz Coto MD, 1 mg at 06/04/18 08 ??? gabapentin (NEURONTIN) capsule 100 mg, 100 mg, oral, TID, Antonietta Dunham NP, 100 mg at 06/04/18808 ??? lidocaine (LIDODERM) 5 % patch 2 patch, 2 patch, transdermal, Daily, Antonietta Dunham NP, Last Rate: 0 mL/hr at 06/03/18 2100, 2 patch at 06/04/18809 ??? losartan (COZAAR) tablet 50 mg, 50 mg, oral, Daily, Justa Clark NP, 50 mg at 06/04/18809 ??? metoprolol (LOPRESSOR) tablet 50 mg, 50 mg, oral, Daily, Antonietta Dunham NP, 50 mg at 06/04/18809 ??? multivit dxdblkld-zelc-SN-calcium (THERA-M) tablet 1 tablet, 1 tablet, oral, Daily, Shahnaz Coto MD, 1 tablet at 06/04/18808 ??? oxyCODONE (ROXICODONE) tablet 5 mg, 5 mg, oral, Q4H PRN, Shahnaz Coto MD, 5 mg at 06/04/18 1322 ??? pantoprazole DR (PROTONIX) extended release tablet 40 mg, 40 mg, oral, BID, Antonietta Dunham NP, 40 mg at 06/04/18808 ??? predniSONE (DELTASONE) tablet 5 mg, 5 mg, oral, Daily, Justa Clark NP, 5 mg at 06/04/18808 ??? senna-docusate (PERICOLACE) 8.6-50 mg per tablet 2 tablet, 2 tablet, oral, BID, Antonietta Dunham NP, 2 tablet at 06/04/18808 ??? sertraline (ZOLOFT) tablet 50 mg, 50 mg, oral, Daily, Antonietta Dunham NP, 50 mg at 06/04/18 0809 ??? simvastatin (ZOCOR) tablet 10 mg, 10 mg, oral, Nightly, Antonietta Dunham NP, 10 mg at 06/03/182037 ??? thiamine (VITAMIN B-1) tablet 100 mg, 100 mg, oral, Daily, Shahnaz Coto MD, 100 mg at 06/04/18 0810 Diet: Dietary Orders Start Ordered 06/02/18 1004 Adult Diet Regular, Restricted; Mechanical Soft Diet effective now Question Answer Comment ([facility]) Diet type Regular ([facility]) Diet type Restricted Modified Consistency: Mechanical Soft 06/02/18 1004 Activity: As tolerated Is&Os: I/O last 2 completed shifts: In: - Out: 800 [Urine:800] I/O this shift: In: - Out: 400 [Urine:400] Physical Exam: 24hr Min/Max: Temp Min: 36.4 ??C (97.5 ??F) Max: 37.1 ??C (98.8 ??F) Pulse Min: 68 Max: 84 BP Min: 107/61 Max: 169/86 Resp Min: 16 Max: 22 SpO2 Min: 88 % Max: 100 % Vitals: 06/04/18 1620 BP: Pulse: 84 Resp: 16 Temp: SpO2: 99% Constitutional: well developed, well nourished, cooperative and no apparent distress Head: normocephalic, without obvious abnormality Neurologic: oriented to person, place. Confused about time. Speech clear and coherent. purposeful movement in all 4 extremities Eyes: conjunctivae/corneas clear. PERRL, EOMs intact HENT: lips, mucosa, and tongue normal Neck: supple, symmetrical, trachea midline Chest: normal appearance, no masses or tenderness Respiratory: normal chest rise and fall and diminished breath sounds bilateral Cardiovascular: regular rate and rhythm, S1, S2 normal, no murmur, click, rub or gallop Gastrointestinal: soft, non-tender; bowel sounds present; no masses, no organomegaly Musculoskeletal: extremities normal, warm and well-perfused TLSO brace in place Pulses: radial: bilateral normal Skin: skin color, texture, turgor normal. No rashes or lesions Labs/Imaging: Recent Results (from the past 72 hour(s)) CBC without differential Collection Time: 06/01/18 9:02 PM Result Value Ref Range WBC 13.4 (H) 3.8 - 9.9 K/cumm Hgb 14.0 13.0 - 17.5 g/dL Hct 43.5 38.9 - 50.3 % Plt 236 150 - 400 K/cumm MPV 9.6 9.1 - 12.3 fL RBC 4.77 4.30 - 5.80 M/cumm MCV 91.2 81.3 - 96.4 fL MCH 29.4 27.1 - 33.3 pg MCHC 32.2 (L) 32.3 - 35.7 g/dL RDW CV 13.4 11.1 - 14.9 % RDW SD 44.7 35.7 - 48.1 fL NRBC Abs 0.00 0.00 - 0.01 K/cumm Basic metabolic panel Collection Time: 06/01/18 9:02 PM Result Value Ref Range Sodium 138 135 - 145 mmol/L Potassium, pl 4.0 3.3 - 4.9 mmol/L Chloride 100 97 - 110 mmol/L CO2 27 22 - 32 mmol/L Anion Gap 11 2 - 15 mmol/L BUN 17 8 - 25 mg/dL Creatinine 1.26 0.80 - 1.30 mg/dL Glucose 106 70 - 199 mg/dL Calcium 9.0 8.5 - 10.3 mg/dL aPTT Collection Time: 06/01/18 9:02 PM Result Value Ref Range APTT 36.5 25.0 - 37.0 sec Protime-INR Collection Time: 06/01/18 9:02 PM Result Value Ref Range PT 11.4 8.5 - 13.0 sec INR 0.99 0.80 - 1.21 POCT glucose Collection Time: 06/03/18 8:10 AM Result Value Ref Range Glucose, POC, bld 117 70 - 199 mg/dL POCT glucose Collection Time: 06/03/18 11:32 AM Result Value Ref Range Glucose, POC, bld 169 70 - 199 mg/dL No results found. Assessment and Plan: Active Problems: Atrial flutter (CMS/HCC) Essential hypertension, benign Falls frequently T12 burst fracture (CMS/HCC) L1 vertebral fracture (CMS/HCC) ETOH abuse COPD (chronic obstructive pulmonary disease) (CMS/HCC) Neuropathy (CMS/HCC) Major depressive disorder Chronic renal failure Anxiety Pleural effusion Heterotopic ossification Acute pain due to trauma #T12 and L1 Burst Fracture: -S/P Ortho CS -Non-op management -TLSO brace when out of bed -PT/OT -Pain Control -S/P upright imaging (06/01): Brace, unchanged severely collapsed T12 burst fracture with mild retropulsion and mild L1 compression fracture ? #ETOH Withdrawal -Daughter states the patient drinks a 12 pack per day, with previous withdrawal and seizures -Sitter -Fall and seizure precautions -CIWA monitoring -Folic acid/Multivitamins/Thiamine/Librium Left pleural effusion -IS -repeat chest x-ray demonstrated (06/02): small left pleural effusion with some atelectasis at the left lung base Prophylaxis: Lovenox Dispo: placement pending accepting facility Tracy Jara NP Cosigned by Bernardino Penny MD at 06/04/2018 8:28 PM CDT Associated attestation - Bernardino Penny MD - 06/04/2018 8:28 PM CDT I have seen and examined the patient on 06/04/18. I agree with the findings and plan of care of thenurse practitioner.. * Adwoa Jefferson MSW - 06/03/2018 2:56 PM CDT 06/03/18 1445 Referral Data Referral Source Physician Referral Reason Discharge Planning;Psychosocial assessment Patient Information Primary Caregiver Self Support System Children (Adwoa Xiong dtr [phone]) Legal Information Have you reviewed your Advance Directive and is it valid for this stay? No Advance Directive Patient does not have advance directive Prior Level of Functioning Living Arrangement Lives alone;Apartment Behavior Oriented Income Information Income Source Long Term/Pension Potential Discharge Needs Discharge Potential SNF Rehab Potential SNF Anticipated discharge level of care Snf Facility Dialysis No Psychiatric services No Communications Patient choice (Home Health/Hospice) list given to patient/fundraising sale representative? Yes ([facility] List) Fiduciary Responsibility Patient/Designated decision maker was informed of [facility] fiduciary relationship as necessary Health Insurance Coverage: [employer] Social History: Prior to admission the patient was living alone in his apartment in [place], [place]. Pt reports that he was functioning independently prior to this current hospitalization. Pt's daughter Adwoa Xiong has been at [facility] for support [phone]. Pt states that he has four daughters. Pt isretired. Additional Information: Social work met with the patient/family to obtain assessment information and discuss d/c planning needs. Social work informed the patient/family that d/c recommendations indicate transfer to SNF rehab. Social work provided information on the rehabilitation process and provided information on SNF rehab. Social work provided information on [facility] and emphasized the importance of continuity of care. Social work discussed d/c options to meet the patient's needs and provided a printed list of facilities for review. Patient/family are agreeable to plan and prefer placement at [facility] or [facility] in [place]. Allscripts have been sent. It was brought to 's attn by [facility] (once pt had been accepted) that pt is a registered sex offender and that they can not accommodate his needs. Pt will need a private room and private bathroom if he would be accepted at a facility. Facility must be covered under [employer] insurance as well. Dtr Adwoa aware of this barrier to discharge as notified her. Pt is unaware at this time- to inform. Impressions: Patient was sitting in the chair at the time of the assessment. Patient was A&Ox4,pt pleasant/copperative. Patient will likely benefit from SNF at d/c. Patient/family are agreeable to plan. Based on a comprehensive family assessment, assistance with instrumental activities of daily livingafter discharge will be provided by SNF. Through the course of our work I determined that SNF possesses the skill and ability to provide andmonitor the care of the patient when he or she returns home. SNF has the capacity to provide/monitor/arrange for the care of the patient. Finally, we determined that SNF has the knowledge of available resources and that combining them with their existing resources will suffice to sustain and care for the patient when he or she returns home. The treatment team is aware of this information. All arein agreement with the aftercare plan. Social Work Plan: Allscripts referral has been sent to 10+ facilities for placement. Adwoa Jefferson LMSW [facility] Social Work [phone] * Justa Clark NP - 06/03/2018 1:32 PM CDT [facility] Geriatric Trauma Surgery Daily Progress Note Admit: 05/31/2018 1:02 AM Date: June 03, 2018 Length of Stay: 3 Attending: Bernardino Penny MD POD:* No surgery found * History: Ludin Mcguire is a 72 y.o. male With a pertinent medical history that includes DM, peripheral neuropathy, COPD with home 02 at 2-3 liters, HTN, CHF, depression, anxiety, CRF, and AFIB without anticoagulation who presents to [facility] Emergency Room after suffering a fall while at home. Per the patient, he was standing at the refrigerator when he lost his balance and fell backwards onto his back. The patient denies any loss of consciousness, or striking his head, along with any dizziness or chest pain prior to, during or after the fall. The patient states that he lives alone. Upon arrival to the emergency room, the patient was alert, cooperative, and adequately protecting his airway, endorsing pain to his back. Multiple radiographs were obtained that demonstrated a T12 burst with minimal retropulsion and an L1 burst fracture. Orthopedics was consulted and the patient was admitted to the hospital under the care of the geriatric trauma service for continued evaluation and management. Interval History: 05/31: admitted to the floor from the ER 06/01: ETOH withdrawal likely, decreased orientation status, haldol for sedation and sitter, TLSO brace ordered, MRI of the spine 06/02: continued agitation, CD consulted for ETOH withdrawal. 06/03: no acute events over night, agitation improving Pain:controlled Nausea: No Flatus: No Bowel Movement: 06/03 Medications: Current Facility-Administered Medications: ??? acetaminophen (TYLENOL) tablet 1,000 mg, 1,000 mg, oral, Q6H PRN, Shahnaz Coto MD, 1,000 mg at 06/03/187 ??? albuterol (PROVENTIL,VENTOLIN) 2.5 mg/0.5 mL nebulizer solution 2.5 mg, 2.5 mg, nebulization, QID (RT), 2.5 mg at 06/03/18 1317 AND ipratropium (ATROVENT) 0.02 % nebulizer solution 0.5 mg, 0.5 mg, nebulization, QID (RT), Bernardino Penny MD, 0.5 mg at 06/03/18 1318 ??? chlordiazePOXIDE (LIBRIUM) capsule 25 mg, 25 mg, oral, Q4H PRN, 25 mg at 06/01/18 1711 OR chlordiazePOXIDE (LIBRIUM) capsule 25 mg, 25 mg, oral, Q2H PRN, Shahnaz Coto MD, 25 mg at 06/02/18 1630 ??? cyclobenzaprine (FLEXERIL) tablet 5 mg, 5 mg, oral, TID PRN, Antonietta Dunham NP, 5 mg at 06/01/18 0824 ??? enoxaparin (LOVENOX) syringe 30 mg, 30 mg, subcutaneous, Q12H KALPESH, Justa Clark NP, 30 mg at 06/03/18 0953 ??? folic acid (FOLVITE) tablet 1 mg, 1 mg, oral, Daily, Shahnaz Coto MD, 1 mg at 06/03/18 0955 ??? gabapentin (NEURONTIN) capsule 100 mg, 100 mg, oral, TID, Antonietta Dunham NP, 100 mg at 06/03/18 0954 ??? lidocaine (LIDODERM) 5 % patch 2 patch, 2 patch, transdermal, Daily, Antonietta Dunham NP, Last Rate: 0 mL/hr at 06/01/18 2251, 2 patch at 06/03/18 0954 ??? losartan (COZAAR) tablet 50 mg, 50 mg, oral, Daily, Justa Clark NP, 50 mg at 06/03/18 0954 ??? metoprolol (LOPRESSOR) tablet 50 mg, 50 mg, oral, Daily, Antonietta Dunham NP, 50 mg at 06/03/18 0954 ??? multivit grxvxcdd-wsdb-KJ-calcium (THERA-M) tablet 1 tablet, 1 tablet, oral, Daily, Shahnaz Coto MD, 1 tablet at 06/03/18953 ??? oxyCODONE (ROXICODONE) tablet 5 mg, 5 mg, oral, Q4H PRN, Shahnaz Coto MD, 5 mg at 06/03/18 1001 ??? pantoprazole DR (PROTONIX) extended release tablet 40 mg, 40 mg, oral, BID, Antonietta Dunham NP, 40 mg at 06/03/18953 ??? predniSONE (DELTASONE) tablet 5 mg, 5 mg, oral, Daily, Justa Clark NP, 5 mg at 06/03/18954 ??? senna-docusate (PERICOLACE) 8.6-50 mg per tablet 2 tablet, 2 tablet, oral, BID, Antonietta Dunham NP, 2 tablet at 06/03/18954 ??? sertraline (ZOLOFT) tablet 50 mg, 50 mg, oral, Daily, Antonietta Dunham NP, 50 mg at 06/03/18954 ??? simvastatin (ZOCOR) tablet 10 mg, 10 mg, oral, Nightly, Antonietta Dunham NP, 10 mg at 06/02/182035 ??? thiamine (VITAMIN B-1) tablet 100 mg, 100 mg, oral, Daily, Shahnaz Coto MD, 100 mg at 06/03/18 0954 Diet: Dietary Orders Start Ordered 06/02/18 1004 Adult Diet Regular, Restricted; Mechanical Soft Diet effective now Question Answer Comment ([facility]) Diet type Regular ([facility]) Diet type Restricted Modified Consistency: Mechanical Soft 06/02/18 1004 Activity: As tolerated with TLSO brace when out of bed Is&Os: I/O last 2 completed shifts: In: - Out: 1000 [Urine:1000] No intake/output data recorded. Physical Exam: 24hr Min/Max: Temp Min: 36.4 ??C (97.5 ??F) Max: 36.8 ??C (98.2 ??F) Pulse Min: 58 Max: 90 BP Min: 132/88 Max: 179/98 Resp Min: 18 Max: 24 SpO2 Min: 82 % Max: 99 % Vitals: 06/03/18 1318 BP: Pulse: 66 Resp: 22 Temp: SpO2: 99% Constitutional: well developed, well nourished and cooperative Head: normocephalic, without obvious abnormality, atraumatic Neurologic: oriented to self and place and situation motor 5/5 all extremities Eyes: conjunctivae/corneas clear. PERRL, EOMs intact HENT: external aural meatus intact with no visable drainage from the ear and no discharge Neck: supple, symmetrical, trachea midline Chest: normal appearance, no masses or tenderness Respiratory: clear to auscultation bilaterally and normal chest rise and fall Cardiovascular: regular rate and rhythm, S1, S2 normal, no murmur, click, rub or gallop Gastrointestinal: soft, non-tender; bowel sounds present; no masses, no organomegaly and non-distended Musculoskeletal: extremities normal, warm and well-perfused and no edema Pulses: radial: bilateral normal and DP: bilateral normal Skin: skin color, texture, turgor normal. No rashes or lesions Labs/Imaging: Recent Results (from the past 72 hour(s)) POCT glucose Collection Time: 06/01/18 7:13 AM Result Value Ref Range Glucose, POC, bld 102 70 - 199 mg/dL POCT glucose Collection Time: 06/01/18 11:56 AM Result Value Ref Range Glucose, POC, bld 123 70 - 199 mg/dL CBC without differential Collection Time: 06/01/18 9:02 PM Result Value Ref Range WBC 13.4 (H) 3.8 - 9.9 K/cumm Hgb 14.0 13.0 - 17.5 g/dL Hct 43.5 38.9 - 50.3 % Plt 236 150 - 400 K/cumm MPV 9.6 9.1 - 12.3 fL RBC 4.77 4.30 - 5.80 M/cumm MCV 91.2 81.3 - 96.4 fL MCH 29.4 27.1 - 33.3 pg MCHC 32.2 (L) 32.3 - 35.7 g/dL RDW CV 13.4 11.1 - 14.9 % RDW SD 44.7 35.7 - 48.1 fL NRBC Abs 0.00 0.00 - 0.01 K/cumm Basic metabolic panel Collection Time: 06/01/18 9:02 PM Result Value Ref Range Sodium 138 135 - 145 mmol/L Potassium, pl 4.0 3.3 - 4.9 mmol/L Chloride 100 97 - 110 mmol/L CO2 27 22 - 32 mmol/L Anion Gap 11 2 - 15 mmol/L BUN 17 8 - 25 mg/dL Creatinine 1.26 0.80 - 1.30 mg/dL Glucose 106 70 - 199 mg/dL Calcium 9.0 8.5 - 10.3 mg/dL aPTT Collection Time: 06/01/18 9:02 PM Result Value Ref Range APTT 36.5 25.0 - 37.0 sec Protime-INR Collection Time: 06/01/18 9:02 PM Result Value Ref Range PT 11.4 8.5 - 13.0 sec INR 0.99 0.80 - 1.21 POCT glucose Collection Time: 06/03/18 8:10 AM Result Value Ref Range Glucose, POC, bld 117 70 - 199 mg/dL POCT glucose Collection Time: 06/03/18 11:32 AM Result Value Ref Range Glucose, POC, bld 169 70 - 199 mg/dL Xr Spine Thoracic 2 Views Result Date: 06/02/2018 1. Brace, unchanged severely collapsed T12 burst fracture with mild retropulsion and mild L1 compression fracture Electronically signed by: Dwaine Zavala MD, PHD Xr Spine Lumbar 2 Or 3 Views Result Date: 06/02/2018 1. Brace, unchanged severely collapsed T12 burst fracture with mild retropulsion and mild L1 compression fracture Electronically signed by: Dwaine Zavala MD, PHD Xr Pelvis 3 Or More Views Result Date: 06/01/2018 1. Heterotopic ossification again noted adjacent to the left greater trochanter with some lucent lines which are well corticated and indeterminant for fracture. These could represent sequela of old traumatic injury. These will better evaluated on concurrent CT. Electronically signed by: Luke Boston M.D. Ct Pelvis Wo Contrast Result Date: 06/01/2018 1. Small ossific fragments seen adjacent to the left greater trochanter are likely well-corticated,and are favored to represent heterotopic ossification or sequela of old trauma. No definite acute fracture is identified. 2. 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 Electronically signed by: Luke Boston M.D. Xr Chest 1 Vw Result Date: 06/01/2018 1. Small left pleural effusion. 2. Heterotopic ossification versus left greater trochanter fracture. If left hip pain is present, recommend further evaluation with CT or MR of the left hip. Electronically signed by: Luke Boston M.D. Xr Hips Bilateral W Pelvis 2 View Result Date: 06/01/2018 1. Small left pleural effusion. 2. Heterotopic ossification versus left greater trochanter fracture. If left hip pain is present, recommend further evaluation with CT or MR of the left hip. Electronically signed by: Luke Boston M.D. Mri Spine Thoracic And Lumbar Wo Contrast Result Date: 06/01/2018 1. T12 burst fracture with mild retropulsion exhibits mild to moderate spinal canal narrowing at this level. Suboptimal evaluation of the cord at this level due to motion degradation. 2. L1 fracture without significant vertebral body height loss or compromise of the spinal canal at this level. Electronically signed by: Annabelle Canseco M.D. Neuro Ct Mr Outside Consult Result Date: 06/01/2018 Severe burst fracture of T12 with mild [...] images may or may not represent the [place] source data set and thus may contain changes that may lower the accuracy of this second- opinion interpretation. Electronically signed by: Annabelle Canseco M.D. Assessment and Plan: Active Problems: Atrial flutter (CMS/HCC) Shortness of breath Essential hypertension, benign Falls frequently T12 burst fracture (CMS/HCC) L1 vertebral fracture (CMS/HCC) ETOH abuse COPD (chronic obstructive pulmonary disease) (CMS/HCC) On home oxygen therapy Neuropathy (CMS/HCC) Major depressive disorder Chronic renal failure Anxiety Pleural effusion Heterotopic ossification Acute pain due to trauma Therapy Leukocytosis Atelectasis #T12 and L1 Burst Fracture: -S/P Ortho CS -Non-op management -TLSO brace when out of bed -PT/OT -Pain Control -S/P upright imaging #ETOH Withdrawal -Daughter states the patient drinks a 12 pack per day, with previous withdrawal and seizures -Sitter -Fall and seizure precautions -CIWA monitoring -Folic acid/Multivitamins/Thiamine/Librium #Prophylaxis -Lovenox #Dispo -PT/OT recs: Rehab, awaiting placement Justa Clark NP Cosigned by Bernardino Penny MD at 06/04/2018 4:03 AM CDT Associated attestation - Bernardino Penny MD - 06/04/2018 4:03 AM CDT I have seen and examined the patient on 06/03/2018. I agree with the findings and plan of care as documented by the nurse practitioner. * Annetta Rosario OT - 06/02/2018 5:14 PM CDT Occupational Therapy As supervising therapist, I agree and cosign with all documentation provided on this date by student therapist, Dalila Roper. * Justa Clark NP - 06/02/2018 9:18 AM CDT [facility] Geriatric Trauma Surgery Daily Progress Note Admit: 05/31/2018 1:02 AM Date: June 02, 2018 Length of Stay: 2 Attending: Bernardino Penny MD POD:* No surgery found * History: Ludin Mcguire is a 72 y.o. male With a pertinent medical history that includes DM, peripheral neuropathy, COPD with home 02 at 2-3 liters, HTN, CHF, depression, anxiety, CRF, and AFIB without anticoagulation who presents to [facility] Emergency Room after suffering a fall while at home. Per the patient, he was standing at the refrigerator when he lost his balance and fell backwards onto his back. The patient denies any loss of consciousness, or striking his head, along with any dizziness or chest pain prior to, during or after the fall. The patient states that he lives alone. Upon arrival to the emergency room, the patient was alert, cooperative, and adequately protecting his airway, endorsing pain to his back. Multiple radiographs were obtained that demonstrated a T12 burst with minimal retropulsion and an L1 burst fracture. Orthopedics was consulted and the patient was admitted to the hospital under the care of the geriatric trauma service for continued evaluation and management. Interval History: 05/31: admitted to the floor from the ER 06/01: ETOH withdrawal likely, decreased orientation status, haldol for sedation and sitter, TLSO brace ordered, MRI of the spine 06/02: continued agitation, CD consulted for ETOH withdrawal. Pain:uncontrolled Nausea: No Flatus: No Bowel Movement: No Medications: Current Facility-Administered Medications: ??? acetaminophen (TYLENOL) tablet 1,000 mg, 1,000 mg, oral, Q6H PRN, Shahnaz Coto MD, 1,000 mg at 06/01/182108 ??? albuterol (PROVENTIL,VENTOLIN) 2.5 mg/0.5 mL nebulizer solution 2.5 mg, 2.5 mg, nebulization, QID PRN (RT) AND ipratropium (ATROVENT) 0.02 % nebulizer solution 0.5 mg, 0.5 mg, nebulization, Q6H PRN (RT), Bernardino Penny MD ??? albuterol HFA (PROVENTIL HFA,VENTOLIN HFA,PROAIR HFA) 90 mcg/actuation inhaler 2 puff, 2 puff, inhalation, Q4H While awake (RT), Justa Clark NP ??? chlordiazePOXIDE (LIBRIUM) capsule 25 mg, 25 mg, oral, Q4H PRN, 25 mg at 06/01/18 1711 OR chlordiazePOXIDE (LIBRIUM) capsule 25 mg, 25 mg, oral, Q2H PRN, Shahnaz Coto MD, 25 mg at 06/02/18 0858 ??? cyclobenzaprine (FLEXERIL) tablet 5 mg, 5 mg, oral, TID PRN, Antonietta Dunham NP, 5 mg at 06/01/18 0824 ??? folic acid (FOLVITE) tablet 1 mg, 1 mg, oral, Daily, Shahnaz Coto MD, 1 mg at 06/02/18857 ??? gabapentin (NEURONTIN) capsule 100 mg, 100 mg, oral, TID, Antonietta Dunham NP, 100 mg at 06/02/18857 ??? ipratropium-albuterol (DUO-NEB) 0.5-2.5 mg/3 mL nebulizer solution 3 mL, 3 mL, nebulization, Q6H KALPESH (RT), Justa Clark NP ??? lidocaine (LIDODERM) 5 % patch 2 patch, 2 patch, transdermal, Daily, Antonietta Dunham NP, Stopped at 06/01/182250 ??? losartan (COZAAR) tablet 50 mg, 50 mg, oral, Daily, Justa Clark NP ??? metoprolol (LOPRESSOR) tablet 50 mg, 50 mg, oral, Daily, Antonietta Dunham NP, 50 mg at 06/02/18857 ??? multivit vdqsvyxv-snpu-KB-calcium (THERA-M) tablet 1 tablet, 1 tablet, oral, Daily, Shahnaz Coto MD, 1 tablet at 06/02/18857 ??? oxyCODONE (ROXICODONE) tablet 5 mg, 5 mg, oral, Q4H PRN, Shahnaz Coto MD, 5 mg at 06/02/18 0639 ??? pantoprazole DR (PROTONIX) extended release tablet 40 mg, 40 mg, oral, BID, Antonietta Dunham NP, 40 mg at 06/02/18857 ??? predniSONE (DELTASONE) tablet 5 mg, 5 mg, oral, Daily, Justa Clark NP ??? senna-docusate (PERICOLACE) 8.6-50 mg per tablet 2 tablet, 2 tablet, oral, BID, Antonietta Dunham NP, 2 tablet at 06/02/18857 ??? sertraline (ZOLOFT) tablet 50 mg, 50 mg, oral, Daily, Antonietta Dunham NP, 50 mg at 08/06/18 0858 ??? simvastatin (ZOCOR) tablet 10 mg, 10 mg, oral, Nightly, Antonietta Dunham NP, 10 mg at 06/01/182103 ??? thiamine (VITAMIN B-1) tablet 100 mg, 100 mg, oral, Daily, Shahnaz Coto MD, 100 mg at 06/02/18 0858 Diet: Dietary Orders Start Ordered 06/01/18 08 Adult Diet Regular Diet effective now Question: ([facility]) Diet type Answer: Regular 06/01/18 08 Activity: As tolerated with TLSO brace when out of bed Is&Os: I/O last 2 completed shifts: In: - Out: 800 [Urine:800] No intake/output data recorded. Physical Exam: 24hr Min/Max: Temp Min: 36.2 ??C (97.2 ??F) Max: 37 ??C (98.6 ??F) Pulse Min: 74 Max: 87 BP Min: 126/71 Max: 162/86 Resp Min: 20 Max: 20 SpO2 Min: 84 % Max: 99 % Vitals: 06/02/18 0812 BP: (!) 158/110 Pulse: 87 Resp: Temp: 37 ??C (98.6 ??F) SpO2: (!) 84% Constitutional: cooperative and no apparent distress Head: normocephalic, without obvious abnormality, atraumatic Neurologic: oriented to self and place and situation motor 5/5 all extremities Eyes: conjunctivae/corneas clear. PERRL, EOMs intact HENT: external aural meatus intact with no visable drainage from the ear and no discharge Neck: supple, symmetrical, trachea midline and no JVD Chest: normal appearance, no masses or tenderness Respiratory: clear to auscultation bilaterally and normal chest rise and fall Cardiovascular: regular rate and rhythm, S1, S2 normal, no murmur, click, rub or gallop Gastrointestinal: soft, non-tender; bowel sounds present; no masses, no organomegaly and non-distended Musculoskeletal: extremities normal, warm and well-perfused and no edema Pulses: radial: bilateral normal and DP: bilateral normal Skin: skin color, texture, turgor normal. No rashes or lesions Labs/Imaging: Recent Results (from the past 72 hour(s)) CBC with auto differential Collection Time: 05/31/18 1:18 AM Result Value Ref Range WBC 12.8 (H) 3.8 - 9.9 K/cumm Hgb 13.0 13.0 - 17.5 g/dL Hct 38.5 (L) 38.9 - 50.3 % Plt 196 150 - 400 K/cumm MPV 10.1 9.1 - 12.3 fL RBC 4.38 4.30 - 5.80 M/cumm MCV 87.9 81.3 - 96.4 fL MCH 29.7 27.1 - 33.3 pg MCHC 33.8 32.3 - 35.7 g/dL RDW CV 13.0 11.1 - 14.9 % RDW SD 42.1 35.7 - 48.1 fL NRBC Abs 0.00 0.00 - 0.01 K/cumm Basic metabolic panel Collection Time: 05/31/18 1:18 AM Result Value Ref Range Sodium 133 (L) 135 - 145 mmol/L Potassium, pl 4.1 3.3 - 4.9 mmol/L Chloride 96 (L) 97 - 110 mmol/L CO2 23 22 - 32 mmol/L Anion Gap 14 2 - 15 mmol/L BUN 11 8 - 25 mg/dL Creatinine 0.96 0.80 - 1.30 mg/dL Glucose 76 70 - 199 mg/dL Calcium 8.7 8.5 - 10.3 mg/dL Differential, auto Collection Time: 05/31/18 1:18 AM Result Value Ref Range Neutrophil absolute 10.0 (H) 1.7 - 6.5 K/cumm Immature granulocyte absolute 0.0 0.0 - 0.1 K/cumm Lymphocytes absolute 1.4 0.8 - 3.3 K/cumm Monocyte absolute 1.1 (H) 0.2 - 0.8 K/cumm Eosinophils absolute 0.1 0.0 - 0.5 K/cumm Basophils, abs 0.0 0.0 - 0.1 K/cumm Neutrophils 78.5 % Immature granulocytes 0.4 % Lymphocytes 10.8 % Monocytes 8.8 % Eosinophils 1.1 % Basophils 0.4 % POCT glucose Collection Time: 06/01/18 7:13 AM Result Value Ref Range Glucose, POC, bld 102 70 - 199 mg/dL POCT glucose Collection Time: 06/01/18 11:56 AM Result Value Ref Range Glucose, POC, bld 123 70 - 199 mg/dL CBC without differential Collection Time: 06/01/18 9:02 PM Result Value Ref Range WBC 13.4 (H) 3.8 - 9.9 K/cumm Hgb 14.0 13.0 - 17.5 g/dL Hct 43.5 38.9 - 50.3 % Plt 236 150 - 400 K/cumm MPV 9.6 9.1 - 12.3 fL RBC 4.77 4.30 - 5.80 M/cumm MCV 91.2 81.3 - 96.4 fL MCH 29.4 27.1 - 33.3 pg MCHC 32.2 (L) 32.3 - 35.7 g/dL RDW CV 13.4 11.1 - 14.9 % RDW SD 44.7 35.7 - 48.1 fL NRBC Abs 0.00 0.00 - 0.01 K/cumm Basic metabolic panel Collection Time: 06/01/18 9:02 PM Result Value Ref Range Sodium 138 135 - 145 mmol/L Potassium, pl 4.0 3.3 - 4.9 mmol/L Chloride 100 97 - 110 mmol/L CO2 27 22 - 32 mmol/L Anion Gap 11 2 - 15 mmol/L BUN 17 8 - 25 mg/dL Creatinine 1.26 0.80 - 1.30 mg/dL Glucose 106 70 - 199 mg/dL Calcium 9.0 8.5 - 10.3 mg/dL aPTT Collection Time: 06/01/18 9:02 PM Result Value Ref Range APTT 36.5 25.0 - 37.0 sec Protime-INR Collection Time: 06/01/18 9:02 PM Result Value Ref Range PT 11.4 8.5 - 13.0 sec INR 0.99 0.80 - 1.21 Xr Spine Thoracic 2 Views Result Date: 06/02/2018 1. Brace, unchanged severely collapsed T12 burst fracture with mild retropulsion and mild L1 compression fracture Electronically signed by: Dwaine Zavala MD, PHD Xr Spine Lumbar 2 Or 3 Views Result Date: 06/02/2018 1. Brace, unchanged severely collapsed T12 burst fracture with mild retropulsion and mild L1 compression fracture Electronically signed by: Dwaine Zavala MD, PHD Xr Pelvis 3 Or More Views Result Date: 06/01/2018 1. Heterotopic ossification again noted adjacent to the left greater trochanter with some lucent lines which are well corticated and indeterminant for fracture. These could represent sequela of old traumatic injury. These will better evaluated on concurrent CT. Electronically signed by: Luke Boston M.D. Ct Pelvis Wo Contrast Result Date: 06/01/2018 1. Small ossific fragments seen adjacent to the left greater trochanter are likely well-corticated,and are favored to represent heterotopic ossification or sequela of old trauma. No definite acute fracture is identified. 2. 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 Electronically signed by: Luke Boston M.D. Xr Chest 1 Vw Result Date: 06/01/2018 1. Small left pleural effusion. 2. Heterotopic ossification versus left greater trochanter fracture. If left hip pain is present, recommend further evaluation with CT or MR of the left hip. Electronically signed by: Luke Boston M.D. Xr Hips Bilateral W Pelvis 2 View Result Date: 06/01/2018 1. Small left pleural effusion. 2. Heterotopic ossification versus left greater trochanter fracture. If left hip pain is present, recommend further evaluation with CT or MR of the left hip. Electronically signed by: Luke Boston M.D. Mri Spine Thoracic And Lumbar Wo Contrast Result Date: 06/01/2018 1. T12 burst fracture with mild retropulsion exhibits mild to moderate spinal canal narrowing at this level. Suboptimal evaluation of the cord at this level due to motion degradation. 2. L1 fracture without significant vertebral body height loss or compromise of the spinal canal at this level. Electronically signed by: Annabelle Canseco M.D. Neuro Ct Mr Outside Consult Result Date: 06/01/2018 Severe burst fracture of T12 with mild [...] images may or may not represent the [place] source data set and thus may contain changes that may lower the accuracy of this second- opinion interpretation. Electronically signed by: Annabelle Canseco M.D. Assessment and Plan: Active Problems: Atrial flutter (CMS/HCC) Shortness of breath Essential hypertension, benign Falls frequently T12 burst fracture (CMS/HCC) L1 vertebral fracture (CMS/HCC) ETOH abuse COPD (chronic obstructive pulmonary disease) (CMS/HCC) On home oxygen therapy Neuropathy (CMS/HCC) Major depressive disorder Chronic renal failure Anxiety Pleural effusion Heterotopic ossification Acute pain due to trauma Therapy #T12 and L1 Burst Fracture: -S/P Ortho CS -Non-op management -TLSO brace when out of bed -PT/OT -Pain Control -S/P upright imaging #ETOH Withdrawal -Daughter states the patient drinks a 12 pack per day, with previous withdrawal and seizures -Sitter -Fall and seizure precautions -CIWA monitoring -Folic acid/Multivitamins/Thiamine/Librium #Prophylaxis -Lovenox #Dispo -PT/OT Justa Clark NP Cosigned by Bernardino Penny MD at 06/02/2018 3:14 PM CDT Associated attestation - Bernardino Penny MD - 06/02/2018 3:14 PM CDT I have seen and examined the patient on 06/02/18. I agree with the findings and plan of care as documented in the resident's/fellow's note. Gen: AO, NAD A/P: 1) s/p Fall: Patietn with TLSO brace. Going through withdrawal from alcohol. PT/OT currently required. Likely SNF. Bernardino Penny MD * Paul Pires MD - 06/01/2018 4:16 AM CDT ED TRANSFER ACCEPT NOTE Admit: 05/31/2018 1:02 AM Date: June 01, 2018 Length of Stay: 1 Attending: Bernardino Penny MD POD:* No surgery found * Subjective History: Ludin Mcguire is a 72 yo M fell from standing onto back. No head trauma, no LOC Injuries: T12/L1 fx, ?L greater troch fx seen on latest XRs Interval History: Patient arrived to floor delirious. Called to room to find security and nursing attempting to get patient to get back in bed. Patient was naked and stated that he believed we were trying to beat him up. Unstable on feet. Yelled ow ow ow whenever he was moved, attempted to walk, or coughed. After much redirection, patient was put back in bed, but continued to try to get up and walk, putting himself in pain whenever he turned to try to get out of bed. Sedated with 5mg Haldolgiven for pt safety. Objective Medications: Current Facility-Administered Medications: ??? morphine injection 2 mg, 2 mg, intravenous, Q4H PRN, Cheyenne Gresham MD, 2 mgat 05/31/18 1950 ??? oxyCODONE-acetaminophen (PERCOCET) 5-325 mg per tablet 1 tablet, 1 tablet, oral, Q4H PRN, Denise Decker MD, 1 tablet at 05/31/18 1148 ??? oxyCODONE-acetaminophen (PERCOCET) 5-325 mg per tablet 1-2 tablet, 1-2 tablet, oral, Q4H PRN, Cheyenne Gresham MD, 2 tablet at 05/31/18 2103 Physical Exam: 24hr Min/Max: Temp Min: 36.2 ??C (97.2 ??F) Max: 36.2 ??C (97.2 ??F) Pulse Min: 51 Max: 98 BP Min: 100/77 Max: 188/89 Resp Min: 15 Max: 22 SpO2 Min: 89 % Max: 99 % Vitals: 06/01/18 0325 BP: 139/75 Pulse: 51 Resp: 22 Temp: 36.2 ??C (97.2 ??F) SpO2: (!) 89% Exam limited by pt cooperation Constitutional: alert and oriented x1 (himself). HEENT: Pupils equal, EOMs grossly normal, mucous membranes moist Respiratory: clear to auscultation bilaterally and respirations unlabored Abdomen: soft, non-distended, NT Skin: dry, diffusely peeling in large desquamations throughout entire body Neuro: Moving all ext spontaneously Exts: transmetatarsal amputation of R foot. Ecchymosis on hands bilaterally Labs/Imaging: Recent Labs Lab Units 05/31/18 0118 WHITE BLOOD CELLS K/cumm 12.8* HEMOGLOBIN g/dL 13.0 HEMATOCRIT % 38.5* PLATELETS K/cumm 196 Recent Labs Lab Units 05/31/18 0118 SODIUM mmol/L 133* POTASSIUM PLASMA mmol/L 4.1 CHLORIDE mmol/L 96* CO2 mmol/L 23 BUN SERUM mg/dL 11 CREATININE mg/dL 0.96 GLUCOSE mg/dL 76 CALCIUM mg/dL 8.7 Xr Spine Thoracic 3 Vw Result Date: 05/31/2018 1. Burst fracture of T12 with mild retropulsion into the spinal canal. Compression fracture of T9 of unknown acuity. 2. Reported L1 burst fracture is not well-visualized. There is mild height loss ofL1. Recommend correlation with outside imaging if available. Electronically signed by: Bernardino Luevano M.D., MPH Xr Spine Lumbar 2 Or 3 Views Result Date: 05/31/2018 1. Burst fracture of T12 with mild retropulsion into the spinal canal. Compression fracture of T9 of unknown acuity. 2. Reported L1 burst fracture is not well-visualized. There is mild height loss ofL1. Recommend correlation with outside imaging if available. Electronically signed by: Bernardino Luevano M.D., MPH Xr Pelvis 3 Or More Views Result Date: 06/01/2018 1. Heterotopic ossification again noted adjacent to the left greater trochanter with some lucent lines which are well corticated and indeterminant for fracture. These could represent sequela of old traumatic injury. These will better evaluated on concurrent CT. Ct Pelvis Wo Contrast Result Date: 06/01/2018 Small ossific fragments seen adjacent to the left greater trochanter are likely well-corticated, and are favored to represent heterotopic ossification or sequela of old trauma. No definite acute fracture is identified. Xr Chest 1 Vw Result Date: 05/31/2018 1. Small left pleural effusion. 2. Heterotopic ossification versus left greater trochanter fracture. If left hip pain is present, recommend further evaluation with CT or MR of the left hip. Xr Hips Bilateral W Pelvis 2 View Result Date: 05/31/2018 1. Small left pleural effusion. 2. Heterotopic ossification versus left greater trochanter fracture. If left hip pain is present, recommend further evaluation with CT or MR of the left hip. Ct Cervical Thoracic Spine Wo Contrast Result Date: 05/31/2018 1. T12 burst fracture with mild retropulsion and focal kyphosis. 2. Mild left L1 inferior vertebralbody fracture. 3. Severely limited exam of the cervical spine due to patient motion. If there is concern for cervical spine fracture, this exam should be repeated. Electronically signed by: Annabelle Canseco M.D. Neuro Ct Mr Outside Consult Result Date: 05/31/2018 Severe burst fracture of T12 with mild retropulsion into the spinal canal at this level. Minimally displaced fracture through the left aspect of the L1 vertebral body with associated mild height loss. The findings, conclusions and recommendations within this report do not replace the initial findings, conclusions and recommendations made at the facility where the study was performed based upon the imaging and clinical condition at that time. Comparison with the prior report and clinical historyis necessary. The provided images may or may not represent the [place] source data set and thus may contain changes that may lower the accuracy of this second-opinion interpretation. A/P: -Sedate only when redirection fails and/or pt safety threatened -sitter -ortho spine -TLSO when sitting up. -Spine MR when able (ordered). -GTS admit (pain control, PT/OT, placement) Paul Pires Cosigned by Bernardino Penny MD at 06/01/2018 7:34 PM CDT Associated attestation - Bernardino Penny MD - 06/01/2018 7:34 PM CDT This is a documentation only encounter Bernardino Penny MD documented in this encounter Consult Notes * Genaro Lopez NP - 06/02/2018 10:56 AM CDT Chemical Dependency Consult Date of Service: 06/02/18 Time of Service: 09:50 HPI: 72 y/o male admitted 05/31 s/p fall. No drug screen or ETOH level obtained. Reported history of ETOH use. Is currently on ETOH withdrawal protocol. Substances used: Patient is irritable and essentially unwilling to participate with examination. States he has been drinking ETOH (primarily beer) pretty much since I was old enough to buy it for myself, and has used it on a consistent (daily or near-daily) basis throughout his life. He typicallyhas 3 or 4 beers (12 or 16 ounce) and/or 1/2 pint of whiskey on those occasions, and last did so onthe day of his admission. He is unwilling/unable to provide further relevant details, but does acknowledge he has drunk to the point of having blackouts/time loss at some point. He denies the use of illicit drugs or medications other than by prescription. Withdrawal symptoms: States he has delirium tremens if he goes more than a day or two without drinking Periods of abstinence: As above. Prior treatment: Denies. Negative consequences: Had a DUI several years ago and left him due to his drinking. Social situation: Lives by himself and is on Social Security. Has 4 adult daughters. MSE: JOHN: male with long, flowing pena dressed in hospital attire and lying supine in bed without apparent distress. Minimally cooperative with examination. Poor eye contact. Mild psychomotor agitation (constant movement). Speech: Regular rate, rhythm, amount and volume with slurring. Normal latency. FOT: Logical, sequential and goal-directed. COT: No suicidal/homicidal ideation, hallucinations or delusions. Mood: Disgusted with your questions really. Affect: Irritable. Restricted range. Mood congruent. Insight/judgment: Poor/Poor. Has little appreciation for the potential adverse effects of long-termETOH use, and has no plan to decrease or halt his use. Sensorium: A+0 X 3. Attention/concentration and recent/remote memory intact per conversation. Assessment and Plan: Patient was not responsive to motivational interviewing techniques, but accepted a list of local treatment resources. * Bernardino Marquez MD - 05/31/2018 5:33 PM CDTAssociated Order(s): IP CONSULT TO TRAUMA SURGERY [facility] Acute Care Surgery Consultation Encounter Date: 05/31/18 Patient Identification Patient's Primary Care Physician: Leoncio Kilpatrick MD Name: Ludin Mcguire Age: 72 y.o. Sex: male Reason for Consultation: Physician requesting consult: Corazon Slaughter MD with the emergency department has asked that we see Ludin Mcguire for evaluation of fall. Patient information was obtained from patient. History/Exam limitations: none. Patient presented to ED Chief Complaint Back Pain History of Present Illness: Ludin Mcguire is a 72 y.o. male with fall backwards from standing height. He was at home, where he lives alone, and getting food out of the refrigerator when he lost his balance and fell backwards landing on his back. He denies head trauma. He denies loss of consciousness. He came to the [facility] Emergency Department for further evaluation when this happened yesterday. He has been jack luated by a spine surgery and has been found to have a T12 and L1 fractures. Under observation in the emergency department, he he continues to have significant back pain. He is unable to walk becauseof the pain, although he does not have objective motor or sensory deficits from a spine fracture. Trauma surgery is consulted for admission for pain control, physical and occupational therapy, and likely placement. Past Medical: Past Medical History: Diagnosis Date ??? Anxiety ??? Atrial fibrillation (CMS/HCC) ??? Chronic renal failure ??? COPD (chronic obstructive pulmonary disease) (CMS/HCC) ??? Depression ??? Diabetes mellitus (CMS/HCC) ??? Diastolic dysfunction ??? Hypertension ??? On home O2 ??? Peripheral neuropathy Surgical History: Past Surgical History: Procedure Laterality Date ??? FOOT AMPUTATION THROUGH METATARSAL ??? TONSILLECTOMY Current Medications: Current Facility-Administered Medications Medication Dose Route Frequency Provider Last Rate Last Dose ??? morphine injection 2 mg 2 mg intravenous Q4H PRN Cheyenne Gresham MD 2 mg at 05/31/18 1603 ??? oxyCODONE-acetaminophen (PERCOCET) 5-325 mg per tablet 1 tablet 1 tablet oral Q4H PRN Denise Decker MD 1 tablet at 05/31/18 1148 ??? oxyCODONE-acetaminophen (PERCOCET) 5-325 mg per tablet 1-2 tablet 1-2 tablet oral Q4H PRN Cheyenne Gresham MD Current Outpatient Prescriptions Medication Sig Dispense Refill ??? ALPRAZolam (XANAX) 0.5 mg tablet Take 0.5 mg by mouth nightly as needed for anxiety. ??? ascorbic acid (ascorbic acid) 500 mg tablet,chewable Take 500 mg by mouth. ??? aspirin 81 mg tablet Take 81 mg by mouth daily. ??? fluticasone (FLOVENT DISKUS) 250 mcg/actuation diskus inhaler Inhale 1 puff 2 (two) times a day. Rinse mouth with water after use to reduce aftertaste and incidence of candidiasis. Do not swallow. ??? gabapentin (NEURONTIN) 100 mg capsule Take by mouth 3 (three) times a day. ??? glipiZIDE (GLUCOTROL) 5 mg tablet Take 5 mg by mouth once. ??? ipratropium-albuterol (DUO-NEB) 0.5-2.5 mg/3 mL nebulizer solution Take by nebulization every 6(six) hours. ??? losartan (COZAAR) 50 mg tablet Take 50 mg by mouth 2 (two) times a day. ??? melatonin 5 mg tablet ??? metoprolol (LOPRESSOR) 25 mg tablet Take 1 tablet (25 mg total) by mouth 2 (two) times a day. 60 tablet 2 ??? multivitamin tablet,chewable Take by mouth. ??? omeprazole (PriLOSEC) 20 mg capsule Take 20 mg by mouth 2 (two) times a day. ??? sertraline (ZOLOFT) 50 mg tablet Take 50 mg by mouth daily. ??? tiotropium (SPIRIVA) 18 mcg per inhalation capsule Place 1 capsule into inhaler and inhale oncedaily. ??? traMADol (ULTRAM) 50 mg tablet Take 50 mg by mouth every 6 (six) hours as needed for pain. ??? zinc sulfate 220 mg tablet Take by mouth. Allergies: Allergies Allergen Reactions ??? Niacin Family History: Family History Problem Relation Age of Onset ??? Car Accident Mother ??? Suicidality Father Social History: reports that he has quit smoking. He does not have any smokeless tobacco history on file. He reports that he drinks alcohol. He reports that he does not use drugs. Review of Systems Constitutional: Negative for fatigue, weight loss, fevers, chills, anorexia. Eyes: Negative for changes in vision or ocular discharge Ears, nose, mouth, and throat: Negative for ear pain, nasal drainage, sore throat Respiratory: Negative for shortness of breath, acute cough, asthma, positive for wheezing Cardiovascular: Negative for chest pain, cyanosis Gastrointestinal: Negative for nausea, vomiting, hemetemesis, hematochezia, abdominal pain, constipation, diarrhea Genitourinary: Negative for dysuria, hematuria Skin: Negative for rash Hematologic/lymphatic: Negative for easy bruising Musculoskeletal:Negative for joint pain, muscle pain Neurological: Negative for headaches, seizures Physical Examination: Ht:182.9 cm (6') Wt:77.1 kg (170 lb) Body mass index is 23.06 kg/m??. BP (!) 175/103 Pulse 82 Temp 36.8 ??C (98.2 ??F) (Oral) Resp 15 Ht 182.9 cm (6') Wt 77.1 kg (170 lb) SpO2 (P) 99% BMI 23.06 kg/m?? GENERAL: No acute distress laying flat in bed. NEURO: Alert and oriented x3 PSYCH: appropriate mood and affect HEENT: normocephalic, atraumatic, pupils equal, EOMs grossly intact, neck supple, trachea midline RESP: Clear to auscultation bilaterally, normal effort CARDIO: Regular rate, irregular rhythm BACK: TLSO brace in place. ABDOMEN: Soft, NT/ND, +BS in all quadrants Ext: no cyanosis, clubbing, or edema. Warm and well perfused. RLE s/p transmetatarsal amputation. MUSCULOSKELETAL: Grossly normal range of motion, although exam limited by pain. Labs, Radiology and Diagnostic Review: Laboratory review: Lab results in the last 24 hours: Recent Results (from the past 24 hour(s)) CBC with auto differential Collection Time: 05/31/18 1:18 AM Result Value Ref Range WBC 12.8 (H) 3.8 - 9.9 K/cumm Hgb 13.0 13.0 - 17.5 g/dL Hct 38.5 (L) 38.9 - 50.3 % Plt 196 150 - 400 K/cumm MPV 10.1 9.1 - 12.3 fL RBC 4.38 4.30 - 5.80 M/cumm MCV 87.9 81.3 - 96.4 fL MCH 29.7 27.1 - 33.3 pg MCHC 33.8 32.3 - 35.7 g/dL RDW CV 13.0 11.1 - 14.9 % RDW SD 42.1 35.7 - 48.1 fL NRBC Abs 0.00 0.00 - 0.01 K/cumm Basic metabolic panel Collection Time: 05/31/18 1:18 AM Result Value Ref Range Sodium 133 (L) 135 - 145 mmol/L Potassium, pl 4.1 3.3 - 4.9 mmol/L Chloride 96 (L) 97 - 110 mmol/L CO2 23 22 - 32 mmol/L Anion Gap 14 2 - 15 mmol/L BUN 11 8 - 25 mg/dL Creatinine 0.96 0.80 - 1.30 mg/dL Glucose 76 70 - 199 mg/dL Calcium 8.7 8.5 - 10.3 mg/dL Differential, auto Collection Time: 05/31/18 1:18 AM Result Value Ref Range Neutrophil absolute 10.0 (H) 1.7 - 6.5 K/cumm Immature granulocyte absolute 0.0 0.0 - 0.1 K/cumm Lymphocytes absolute 1.4 0.8 - 3.3 K/cumm Monocyte absolute 1.1 (H) 0.2 - 0.8 K/cumm Eosinophils absolute 0.1 0.0 - 0.5 K/cumm Basophils, abs 0.0 0.0 - 0.1 K/cumm Neutrophils 78.5 % Immature granulocytes 0.4 % Lymphocytes 10.8 % Monocytes 8.8 % Eosinophils 1.1 % Basophils 0.4 % Assessment and Plan: Patient Active Problem List Diagnosis ??? Atrial flutter (CMS/HCC) ??? Shortness of breath ??? Essential hypertension, benign ??? Falls frequently Ludin Mcguire is a 72 y.o. male with fall from standing height onto his back. Injuries included fractures of the T12 and L1 vertebrae. He requires admission for pain control and physical/occupational therapy. Given his frequent falls and that the fact that he was aligned he may require placement. We will order plain films of the chest and pelvis to rule out other injury. He will be admitted to the geriatric trauma service. Discussed with attending: Bernardino Marquez MD Cosigned by Bernardino Penny MD at 05/31/2018 11:34 PM CDT Associated attestation - Bernardino Penny MD - 05/31/2018 11:34 PM CDT I have seen and examined the patient on 05/31/18. I agree with the findings and plan of care as documented in the resident's/fellow's note. In addition I note: Gen: AO, NAD A/P: 1) s/p Fall: Patient with spine fractures that require a brace. Currently not very compliant and keeps attempting to move without brace with pain preventing much motion. Will require some PT/OT post/mobilization films. May require SNF given frequent falls and if unable to mobilize well with brace. Bernardino Penny MD * Chaz Tran MD - 05/31/2018 2:11 AM CDTAssociated Order(s): IP CONSULT TO ORTHO SPINE Orthopaedic Spine Surgery Consult May 31, 2018 2:11 AM Reason for Consult: T12, L1 burst fx Requesting Provider: No ref. provider found Consulting Provider: Resident - Marc/Attending - Nancy Patient (home) Insurance: Payor: [employer] / Plan: [employer] / Product Type: *No Product type* /Note: This is the primary coverage, but no account was found for this location or the patient's primary location. HPI: Ludin Mcguire is a 72 y.o. male s/p MSLF 2 days ago p/w T12, L1 burst fx. Has been ambulating since,but presents 2/2 pain. Pain is located around site of injury, is sharp and doesn't radiate. C/O lower back, thoracic and c-spine pain. Pain is 10/10 in severity. Pain is made worse with movement, andbetter with rest. Patient is a community ambulator with assist. - antecedent pain. - numbness/tingling/loss of bowel or bladder function. OI: None PMH: Afib, HTN, HLD, CKD, CVA, osteo s/p R midfoot amputation SH: Current smoker, + EtOH, - drugs. Past Medical History: Diagnosis Date ??? Anxiety ??? Atrial fibrillation ([facility]) ??? Chronic renal failure ??? COPD (chronic obstructive pulmonary disease) ([facility]) ??? Depression ??? Diabetes mellitus ([facility]) ??? Diastolic dysfunction ??? Hypertension ??? On home O2 ??? Peripheral neuropathy Past Surgical History: Procedure Laterality Date ??? FOOT AMPUTATION THROUGH METATARSAL ??? TONSILLECTOMY Prior to Admission medications Medication Sig Start Date End Date Taking? Authorizing Provider ALPRAZolam (XANAX) 0.5 mg tablet Take 0.5 mg by mouth nightly as needed for anxiety. Historical Provider, ascorbic acid (ascorbic acid) 500 mg tablet,chewable Take 500 mg by mouth. Historical Provider, aspirin 81 mg tablet Take 81 mg by mouth daily. Historical Provider, fluticasone (FLOVENT DISKUS) 250 mcg/actuation diskus inhaler Inhale 1 puff 2 (two) times a day. Rinse mouth with water after use to reduce aftertaste and incidence of candidiasis. Do not swallow. Historical Provider, gabapentin (NEURONTIN) 100 mg capsule Take by mouth 3 (three) times a day. Historical Provider, glipiZIDE (GLUCOTROL) 5 mg tablet Take 5 mg by mouth once. Historical Provider, ipratropium-albuterol (DUO-NEB) 0.5-2.5 mg/3 mL nebulizer solution Take by nebulization every 6 (six) hours. Historical Provider, losartan (COZAAR) 50 mg tablet Take 50 mg by mouth 2 (two) times a day. Historical Provider, melatonin 5 mg tablet Historical Provider, metoprolol (LOPRESSOR) 25 mg tablet Take 1 tablet (25 mg total) by mouth 2 (two) times a day. 05/02/18 Angely Rowe MD multivitamin tablet,chewable Take by mouth. Historical Provider, omeprazole (PriLOSEC) 20 mg capsule Take 20 mg by mouth 2 (two) times a day. Historical Provider, sertraline (ZOLOFT) 50 mg tablet Take 50 mg by mouth daily. Historical Provider, tiotropium (SPIRIVA) 18 mcg per inhalation capsule Place 1 capsule into inhaler and inhale once daily. Historical Provider, traMADol (ULTRAM) 50 mg tablet Take 50 mg by mouth every 6 (six) hours as needed for pain. Historical Provider, zinc sulfate 220 mg tablet Take by mouth. Historical Provider, Allergies Allergen Reactions ??? Niacin Social History Substance Use Topics ??? Smoking status: Former Smoker ??? Smokeless tobacco: Not on file ??? Alcohol use Yes Comment: 1OR 2 DAILY Family History Problem Relation Age of Onset ??? Car Accident Mother ??? Suicidality Father Review of Systems: Review of systems per HPI and otherwise all other systems are negative. Objective Vitals: 24hr Min/Max: Temp Min: 36.8 ??C (98.2 ??F) Max: 36.8 ??C (98.2 ??F) Pulse Min: 94 Max: 95 BP Min: 163/90 Max: 192/76 Resp Min: 14 Max: 18 SpO2 Min: 91 % Max: 92 % Most Recent: Vitals: 05/31/18 0104 05/31/18 0130 BP: (!) 192/76 163/90 Pulse: 95 94 Resp: 18 14 Temp: 36.8 ??C (98.2 ??F) TempSrc: Oral SpO2: 92% 91% Weight: 77.1 kg (170 lb) Height: 182.9 cm (6') Physical Exam: Gen: NAD Neuro: A&Ox3 Resp: NLB CV: Regular rhythm Spine: General: T12-L1 significantly tender. Mild-moderate TTP throughout T and C spine. No skin defects. ROM deferred until further workup. No visible deformity on inspection. No appreciable muscular atrophy. Nontender, and painless ROM shoulders, elbow, wrist, digits, hips, knees, ankles. Normal muscular tone. NTP over greater trochanter. Motor: Muscle Strength Left Right Deltoid 5/5 5/5 Biceps 5/5 5/5 Triceps 5/5 5/5 Wrist extension 5/5 5/5 Wrist flexion 5/5 5/5 Outreach Worker 5/5 5/5 Interosseous of hand 5/5 5/5 Iliopsoas 5/5 5/5 Quadriceps 5/5 5/5 Tibialis anterior 5/5 5/5 Extensor hallicus longus 5/5 5/5 Gastrocsoleus complex 5/5 5/5 Sensation Left upper extremity: sensation intact to light touch in C5 to T1 dermatomes. Right upper extremity: sensation intact to light touch in C5 to T1 dermatomes. Left lower extremity: sensation intact to light touch in L2 to S1 dermatomes. Right lower extremity: sensation intact to light touch in L2 to S1 dermatomes. SILT skin over nipple line (T4), Xiphoid process (T7), Umbilicus (T10), pubis (T12) Reflexes: Left Upper Extremity: 2+ biceps (C5), 2+ brachioradialis (C6), 2+ triceps (C7). Right Upper Extremity: 2+ biceps (C5), 2+ brachioradialis (C6), 2+ triceps (C7). Left Lower Extremity: 2+patellar tendon (L4), achilles (S1) Right Lower Extremity: 2+patellar tendon (L4), achilles (S1) Rectal exam: +perianal sensation, +resting tone and +volitional rectal tone Gait: Deferred Long-tract signs: Negative Aden's No clonus [facility]: Bilateral Upper Extremity: 2+ radial pulse, fingers WWP Bilateral Lower Extremity 2+ pedal pulses, toes WWP with BCR Lab/Radiology/Diagnostic Review: Laboratory review: No results found for this or any previous visit (from the past 24 hour(s)). Imaging review: No results found. Radiology Review: I have reviewed the imaging with the following findings: T12 burst with minimal retropulsion. L1 burst with no retropulsion and minimal compression. Small ossific fragments adjacent to L GT likely heterotopic ossification Assessment/Plan Ludin Mcguire is a 72 y.o. male who presents with T12 burst with minimal retropulsion, L1 burst. Patient NVI. PROCEDURE: N/A PLAN: 1. Plan for likely nonop management 2. Full spine precautions. 3. Pending Imaging: C/T spine CT, upright T/L spine films after brace delivered. Move patient to OBS to await brace. 4. Bed rest 5. NPO 6. Pain control 7. Will order TLSO brace and repeat imaging 8. No concern for greater trochanteric fx 9. Please call ortho spine if patient develops any concerning changes to their neurologic exam suchas new weakness or loss of bowel/bladder function Dwayne Tran MD MS Orthopaedic Surgery PGY-2 ?? If you have questions, please call the Orthopaedic Surgery Consult Pager [phone] to be directed to the correct Orthopaedic Surgery resident. ?? If you know the resident's name on the appropriate orthopaedic surgery team, please use [email or web address] to page resident directly. documented in this encounter Nursing Notes * Ragini Joseph RN - 06/06/2018 4:48 PM CDT Patient discharged to [facility] via ambulance accompanied by self. * Ragini Joseph RN - 06/06/2018 3:27 PM CDT Report called to Dot at [facility] . * Ragini Joseph RN - 06/06/2018 8:13 AM CDT 06/06/18 0757 06/06/18 0759 06/06/18 0810 Vital Signs Pulse 76 -- 84 Heart Rate Source Monitor -- -- Resp 20 -- -- BP (!) 177/109 (!) 162/128 (!) 166/101 BP Location Left arm -- Left arm BP Method Automatic -- Automatic MAP (mmHg) -- -- 118 ANIKET Marr, notified of patient's BP. Orders were given to administer anti-HTN meds as ordered. Willcontinue to monitor. * Clarisse Abrams RN - 06/06/2018 12:27 AM CDT MD notified * Leighann Woodall RN - 06/01/2018 8:41 AM CDT Patient thrashing in bed and attempting to get out of bed. TLSO brace put on and pt assisted to chair with 2 assist. Alert and oriented times one. He states , (Get away from me you crazy ladies.) Head Mechanic Antonietta made aware of blood pressure. Scheduled metoprolol given . 1 on 1 monitoring continues. documented in this encounter ED Notes * Ivelisse Childress RN - 05/31/2018 9:53 PM CDT Pt attempted to climb out of bed, removing BP cuff and pulse ox. Pt has been instructed numerous times to stay in bed d/t injuries, pt not compliant. Sitter initiated for patient safety. Ivelisse Childress RN 05/31/18 2904 * Eduarda Judge NP - 05/31/2018 7:39 PM CDT Bed: OBS-01 Expected date: Expected time: Means of arrival: Comments: Jensen Judge NP 08/04/18 1939 * Kimberly Cabrales NP - 05/31/2018 5:56 PM CDT Med list per [facility] pharmacy: Xanax 1 mg PO BID Omeprazole 40 mg PO BID Metoprolol 25 mg PO BID Gabapentin 100 mg PO TID Sertraline 50 mg PO daily Prednisone 5 mg, take one 1/2 tab daily Simvastatin 10 mg PO daily Kimberly Cabrales NP 05/31/18 7607 * Charlotte Vega RN - 05/31/2018 3:08 PM CDT Bed: [facility] Expected date: Expected time: Means of arrival: Comments: Radha Mcguire RN 05/31/18 1508 * Isaak Edward MD - 05/31/2018 2:37 AM CDT HPI Chief Complaint Patient presents with ??? Back Pain 72M pmh a fib on dilt (no AC), ckd, copd, dm s/p right midfoot amputation, htn p/w mechanical fall 2d ago while bending down to look into fridge, falling onto back. Able to ambulate for past 2 days, but then pain was too much so went to OSH where L spine CT showed T12/L1 burst fractures. No neuro deficits. No other acute injuries. Pt denies lightheadedness, HYDE, CP, SOB, n/v. History provided by: Patient and medical records Patient History Patient Active Problem List Diagnosis Date Noted ??? Atrial flutter (CMS/HCC) 04/08/2017 ??? Shortness of breath 04/08/2017 ??? Essential hypertension, benign 04/08/2017 ??? Falls frequently 04/08/2017 Past Medical History: Diagnosis Date ??? Anxiety ??? Atrial fibrillation (CMS/HCC) ??? Chronic renal failure ??? COPD (chronic obstructive pulmonary disease) (CMS/HCC) ??? Depression ??? Diabetes mellitus (CMS/HCC) ??? Diastolic dysfunction ??? Hypertension ??? On home O2 ??? Peripheral neuropathy Past Surgical History: Procedure Laterality Date ??? FOOT AMPUTATION THROUGH METATARSAL ??? TONSILLECTOMY Family History Problem Relation Age of Onset ??? Car Accident Mother ??? Suicidality Father Social History Substance Use Topics ??? Smoking status: Former Smoker ??? Smokeless tobacco: Not on file ??? Alcohol use Yes Comment: 1OR 2 DAILY Social History Social History Narrative ??? No narrative on file Review of Systems Review of Systems Constitutional: Negative for chills and fever. HENT: Negative for ear pain and sore throat. Eyes: Negative for pain and visual disturbance. Respiratory: Negative for cough and shortness of breath. Cardiovascular: Negative for chest pain and palpitations. Gastrointestinal: Negative for abdominal pain and vomiting. Genitourinary: Negative for dysuria and hematuria. Musculoskeletal: Positive for back pain. Negative for arthralgias. Skin: Negative for color change and rash. Neurological: Negative for seizures and syncope. Pt denies bowel/bladder incontinence All other systems reviewed and are negative. Physical Exam ED Triage Vitals [05/31/18 0104] Temp Pulse Resp BP SpO2 36.8 ??C (98.2 ??F) 95 18 (!) 192/76 92 % Temp src Heart Rate Source Patient Position BP Location FiO2 (%) Oral -- -- -- -- Physical Exam Constitutional: He is oriented to person, place, and time. He appears well- developed. No distress. HENT: Head: Normocephalic and atraumatic. Right Ear: External ear normal. Left Ear: External ear normal. Eyes: Pupils are equal, round, and reactive to light. Conjunctivae and EOM are normal. Neck: Normal range of motion. Neck supple. Cardiovascular: Normal rate and regular rhythm. No murmur heard. Pulmonary/Chest: Effort normal and breath sounds normal. No respiratory distress. Abdominal: Soft. There is no tenderness. Musculoskeletal: He exhibits tenderness. He exhibits no edema or deformity. Thoracic back: He exhibits tenderness, bony tenderness and pain. He exhibits no swelling, no edema,no deformity, no laceration and no spasm. Lumbar back: He exhibits tenderness, bony tenderness and pain. Neurological: He is alert and oriented to person, place, and time. No cranial nerve deficit or sensory deficit. He exhibits normal muscle tone. Coordination normal. No saddle anesthesia. Skin: Skin is warm and dry. Psychiatric: He has a normal mood and affect. Nursing note and vitals reviewed. [facility] MDM Number of Diagnoses or Management Options Diagnosis management comments: 72M pmh a fib on dilt (no AC), ckd, copd, dm s/p right midfoot amputation, htn p/w mechanical fall 2d ago while bending down to look into fridge, falling onto back. Able to ambulate for past 2 days, but then pain was too much so went to OSH where L spine CT showed T12/L1 burst fractures. No neuro deficits. No other acute injuries. Pt denies lightheadedness, HYDE, CP, S OB, n/v. No neuro deficits on exam, normal rectal tone, no saddle anesthesia, normal strength/sensation. Pain to palpation of low T and upper L spine w/o obvious bony deformity or external injury. DDx: burst fracture to T12/L1 vertebrae, spinal cord injury unlikely given lack of neuro sx, thoracic or abdominal injury unlikely as no pain on exam, ICH unlikely as no neuro deficits or HYDE Plan: cbc, bmp, T and C spine CT, T and L spine x rays, ortho spine consult, pain control, dispo pending recs Amount and/or Complexity of Data Reviewed Review and summarize past medical records: yes Attending Summary of Care 72-year-old male with medical history as above with describe mechanical fall that happened 2 days ago, found to have T12-L1 burst fractures on L-spine imaging. Patient continues to have pain, and orthopedic surgery was consulted. CT cervical and thoracic spine obtained. Final recommendations was that he needs a TLSO brace. He will be sent to observation while awaiting a TLSO brace and possible additional imaging per excellence consultant team. Pt was signed out to oncoming team. Vincenzo No diagnosis found. Isaak Edward MD Resident 05/31/18 0753 Cosigned by Deangelo Loya MD at 06/02/2018 8:39 PM CDT * Adwoa Tyler RN - 05/31/2018 1:06 AM CDT Patient lost his balance and fell backwards a few days back. Patient was at home and felt pain was unbearable today. Patient presented to [facility] and was diagnosed with burst fracture of T11, T12 and transferred here for further care. * Adwoa Tyler RN - 05/31/2018 1:02 AM CDT Bed: [facility] Expected date: 05/30/18 Expected time: 11:47 PM Means of arrival: Ambulance Comments: Adwoa Tyler RN 05/31/18 0102 * Nunu Masterson RN - 05/30/2018 11:45 PM CDT Patient coming from [place]. Fall 2 days ago having back pain. No neuro deficits, moves all extremities. Found to have burst fracture of T12 and L1. Needing MRI. Accepted by MD Palmer with Ortho-spine. MD Loya on the line for report from MD Weeks. Level 3 Nunu Masterson RN 05/30/18 2205 documented in this encounter Miscellaneous Notes * Plan of Care - Gilles Da Silva RN - 06/06/2018 3:29 PM CDT Report Per [facility] ADD: pending placement Medical Necessity: medically stable. Referrals: Social Work is following for placement. Support at Discharge: facility Transportation: family or ambulance Follow up appointment: Primary team to schedule * Plan of Care - Edwar Zapata RRT - 06/06/2018 3:29 PM CDT COPD patient with spinal fractures is receiving QID albuterol nebs. He complains of pain when he coughs. Patients cough produced a moderate amount of thick yellow secretions. * Plan of Care - Poncho Shaffer RRT - 06/06/2018 3:29 PM CDT Respiratory therapy to continue breathing treatments QID, will continue to assess patient. * Plan of Care - Ragini Joseph RN - 06/06/2018 1:12 PM CDT Activity: ??? Mobility will improve Progressing Health Behavior: ??? Understanding of discharge needs will improve Progressing Health Behavior: ??? Ability to manage health-related needs will improve Progressing Lack of Knowledge: ??? Ability to state ways to decrease the risk of falls will improve Progressing Lack of Knowledge: ??? Understanding of ways to prevent future skin breakdown will improve Progressing ??? Ability to identify appropriate dietary choices will improve Progressing Lack of Knowledge: ??? Knowledge on safety and abstaining from self-injurious behavior will increase Progressing ??? Knowledge of therapies/resources will increase Progressing Low Risk for Self-Injurious Behavior: ??? Ability to remain free from injury will improve Progressing Nutritional: ??? Dietary intake will improve Progressing ??? Ability to maintain a balanced intake and output will improve Progressing Safety: ??? Will remain free from falls Progressing ??? Will remain free from injury from falls Progressing ??? Will remain free from falls and injury in home environment Progressing Skin Integrity: ??? Risk for impaired skin integrity will decrease Progressing ??? Ability to demonstrate warm and dry skin will improve Progressing ??? Circulation will improve to fullest extent possible Progressing Goals: Clinical Goals for the Shift: pn control, ambulation Summary: * [facility]IN Note - Adwoa Jefferson MSW - 06/06/2018 7:44 AM CDT Patient Information: Comprehensive Nursing Documentation Travel and Exposure Screening Most Recent Value Travel Screening Traveled outside the [place] in the last month? No Filed On: 05/31/2018102 Exposure Screening Contact with someone with a communicable disease in the last month? No Filed On: 05/31/2018 010 Symptoms Attending Provider: Bernardino Penny MD Allergies: Niacin Isolation: None Infection: None Code Status: FULL Ht: 182.9 cm (6') Wt: 77.1 kg (170 lb) Admission Cmt: None Principal Problem: None Intake/Output 06/03/18 0700 - 06/04/18 0659 06/04/18 0700 - 06/05/18 0659 Total Total Intake (ml) -- -- Output (ml) 800 850 Net (ml) -800 -850 Patient Lines/Drains/Airways Status Active Airway / Central venous catheter / Drain / Epidural cathether / Intraosseous line / Peripherally inserted central catheter / Peripheral intravenous line / Arterial line Name: Placement date: Placement time: Site: Days: Peripheral IV 06/04/18 20 G Left Forearm 06/04/18 1700 Forearm 1 Patient Lines/Drains/Airways Status Active Wound / Pressure ulcer / Wren / Negative Pressure Wound Wound Other (Comment) Buttocks Left Open boil on L buttock Date First Assessed Site: Buttocks Time First Assessed Days: Location Orientation: Left Wound Description (Comments): Open boil on L buttock Wound Type: Other (Comment) Assessments 06/05/18199906/05/18 0733 06/05/18 0720 06/04/18 2225 06/04/18 1008 Wound Status Healing Healing Healing Site Assessment Clean;Dry;Intact;[place] Clean;Moist;[place] Clean;Dry;Intact;[place] DUNIA Carla-wound Assessment Color normal for ethnicity;Dry;Intact;Flaky Flaky Color normal for ethnicity;Dry;Intact Closure Unapproximated Drainage Amount Scant Drainage Description Serosanguineous Drainage Odor No odor Interventions Cleansed;Site care Dressing Status Clean/Dry/Intact Changed;Drainage shadowing Clean/Dry/Intact Intact;Dry Dressing Foam Foam Foam Foam 06/04/18 0900 Wound Status Healing Site Assessment Clean;[place] Carla-wound Assessment Color normal for ethnicity Closure Drainage Amount Scant Drainage Description Serosanguineous Drainage Odor No odor Interventions Site care Dressing Status Intact Dressing De Jesus Fall Risk Most Recent Value History of Falling 25 ............filed at 06/05/20182099 Secondary Diagnosis 15 ............filed at 06/05/20182099 Ambulatory Aids 0 ............filed at 06/05/20182099 Intravenous Therapy/Heparin/Saline Lock 20 ............filed at 06/05/20182099 Gait/Transferring 10 ............filed at 06/05/20182099 Mental Status 0 ............filed at 06/05/20182099 De Jesus Fall Risk Score 70 ............filed at 06/05/20182099 Vital Signs 06/05 700 - 06/06 0659 06/06 700 - 06/06 0744 Most Recent Temp (??C) 36.4 - 37.3 36.4 (97.5) Pulse 66 - 89 81 Resp 18 - 22 20 SpO2 (%) 92 - 100 93 BP 119/65 - (!) 179/98 144/86 MAP (mmHg) 83 - 120 101 Non Violent Restraint Most Recent Value Restraint Alternative Less Restrictive Alternative Comfort Measures filed at 06/05/2018 1741 Restraint Reason Restraint Type (NV) Every 2 Hours Default Flowsheet Data (most recent) Endurance Tests None Default Flowsheet Data (most recent) Balance Tests - 06/02/18 1535 Tinetti Sitting Balance 0 Arises 0 Attempts to Arise 0 Immediate Standing Balance (First 5 Seconds) 0 Standing Balance 0 Nudged 0 Eyes Closed 0 Turned 360 Degrees: Steadiness 0 Turned 360 Degrees: Continuity of Steps 0 Sitting Down 0 Balance Score 0 Nursing Nutrition Feeding Level of Assistance Able to feed self at 06/06 736 Able to feed self at 06/05 08 Able to feed self at 06/05 07 Appetite Good at 06/05 08 Nursing Mobility Activity Sleeping at 06/06 07 Commode at 06/05 2307 Resting in bed at 06/05 1956 -- at 06/05 1551 (Comment: up to chair with PT) -- at 06/05 1330 (Comment: in commode) -- at 06/05 1153 (Comment: up to chair) -- at 06/05 1000 (Comment: up to commode, back to bed) -- at 06/05 0805 (Comment: sitting at side of bed) Resting in bed at 06/05 0720 Commode at 06/04 2236 Chair at 06/03 1715 Resting in bed at 06/03 1600 Level of Assistance Minimal assist, patient does 75% or more at 06/05 2307 Minimal assist, patient does 75% or more at 06/05 195 Minimal assist, patient does 75% or more at 06/05 1153 Minimal assist, patient does 75% or more at 06/05 1000 Minimal assist, patient does 75% or more at 06/04 223 Minimal assist, patient does 75% or more at 06/03 171 Modified independent, requires aide device or extra time at 06/03 1600 Ambulation Response Tolerated well at 06/05 195 Repositioned Turns self at 06/06 0736 Turns self at 06/05 195 Up in chair at 06/05 1153 Turns self at 06/05 1000 Turns self at 06/05 0720 Positioning Frequency Able to turn self at 06/06 736 Able to turn self at 06/05 195 Able to turn self at 06/05 0720 Able to turn self at 06/04 2014 Able to turn self at 06/04 09 Able to turn self at 06/03 1910 Able to turn self at 06/03 1100 Head of Bed Elevated Self regulated at 06/05 1956 Self regulated at 06/04 2014 Self regulated at 06/04 0900 Heels/Feet Heels elevated off bed at 06/04 0900 Range of Motion Active at 06/05 1956 Active at 06/04 2014 Active at 06/04 09 Default Flowsheet Data (last 24 hours) Sitter Documentation Row Name 06/06/18 0736 06/06/18 0554 06/06/18 0522 Sitter Documentation Sitter Not indicated Not indicated Not indicated Row Name 06/06/18 0423 06/06/18 0318 06/06/18 0204 Sitter Documentation Sitter Not indicated Not indicated Not indicated Row Name 06/06/18 0106 06/06/18 0033 06/06/18 0001 Sitter Documentation Sitter Not indicated Not indicated Not indicated Row Name 06/05/18 2307 06/05/18 2240 06/05/18 2214 Sitter Documentation Sitter Not indicated Not indicated Not indicated Row Name 06/05/18 2148 06/05/18 2102 06/05/18 2046 Sitter Documentation Sitter Not indicated Not indicated Not indicated Row Name 06/05/18 1956 06/05/18 1942 06/05/18 1741 Sitter Documentation Sitter Not indicated Not indicated Not indicated Row Name 06/05/18 1551 06/05/18 1440 06/05/18 1330 Sitter Documentation Sitter Not indicated Not indicated Not indicated Row Name 06/05/18 1153 06/05/18 1100 06/05/18 1000 Sitter Documentation Sitter Not indicated Not indicated Not indicated RN Safety Check No unsafe behaviors observed, safe environment maintained -- -- Row Name 06/05/18 0900 06/05/18 0805 Sitter Documentation Sitter Not indicated Not indicated RN Safety Check -- No unsafe behaviors observed, safe environment maintained , Meds and Admin Active Only All Meds/Most Recent Administrations labetalol (NORMODYNE,TRANDATE) injection 10 mg [[id number]] Ordering Provider: Isaak Edward MD Status: Completed (Past End Date/Time) Ordered On: 05/31/18 0624 Starts/Ends: 05/31/18 0625 - 05/31/18 0640 Dose (Remaining/Total): 10 mg (0/1) Route: intravenous Frequency: Once Rate/Duration: -- / -- Timestamps Action Dose Route Other Information 05/31/18 0640 Given 10 mg intravenous Performed by: Nichol Wade RN acetaminophen (TYLENOL) tablet 1,000 mg [[id number]] Ordering Provider: Cheyenne Gresham MD Status: Completed (Past End Date/Time) Ordered On: 05/31/18 0753 Starts/Ends: 05/31/18 0754 - 05/31/18 0800 Dose (Remaining/Total): 1,000 mg (0/1) Route: oral Frequency: Once Rate/Duration: -- / -- Timestamps Action Dose Route Other Information 05/31/18 0800 Given 1,000 mg oral Performed by: Nichol Wade RN albuterol (PROVENTIL,VENTOLIN) 2.5 mg/0.5 mL nebulizer solution 5 mg [] Ordering Provider: Kimberly Cabrales NP Status: Completed (Past End Date/Time) Ordered On: 05/31/181605 Starts/Ends: 05/31/181606 - 05/31/181647 Dose (Remaining/Total): 5 mg (0/1) Route: nebulization Frequency: Once (security incident response engineer) Rate/Duration: -- / -- Timestamps Action Dose Route Other Information 05/31/181647 Given 5 mg nebulization Performed by: Aurora Conn, FORGE PRESS OPERATOR ipratropium (ATROVENT) 0.02 % nebulizer solution 0.5 mg [] Ordering Provider: Kimberly Cabrales NP Status: Completed (Past End Date/Time) Ordered On: 05/31/181605 Starts/Ends: 05/31/181606 - 05/31/181647 Dose (Remaining/Total): 0.5 mg (0/1) Route: nebulization Frequency: Once (security incident response engineer) Rate/Duration: -- / -- Timestamps Action Dose Route Other Information 05/31/181647 Given 0.5 mg nebulization Performed by: Aurora Conn, MARY morphine injection 4 mg [[id number]] Ordering Provider: Corazon Slaughter MD Status: Completed (Past End Date/Time) Ordered On: 05/31/182315 Starts/Ends: 05/31/182316 - 05/31/182322 Dose (Remaining/Total): 4 mg (0/1) Route: intravenous Frequency: Once Rate/Duration: -- / -- Timestamps Action Dose Route Other Information 05/31/182322 Given 4 mg intravenous Performed by: Ivelisse Childress RN haloperidol (HALDOL) injection 5 mg [[id number]] Ordering Provider: Paul Pires MD Status: Completed (Past End Date/Time) Ordered On: 06/01/18312 Starts/Ends: 06/01/18344 - 06/01/18317 Dose (Remaining/Total): 5 mg (0/1) Route: intramuscular Frequency: Once Rate/Duration: -- / -- Timestamps Action Dose Route / Site Other Information 06/01/188 Given 5 mg intramuscular Left Deltoid Performed by: Kev Hare RN oxyCODONE (ROXICODONE) tablet 5 mg [] Ordering Provider: Shahnaz Coto MD Status: Dispensed Ordered On: 06/01/18604 Start: 06/01/18604 Dose (Remaining/Total): 5 mg (--/--) Route: oral Frequency: Every 4 hours PRN Rate/Duration: -- / -- Admin Instructions: May repeat in 1 hour if pain is uncontrolled or increasing. Max 2 doses within 1 dosing interval. Timestamps Action Dose Route Other Information 06/06/18522 Given 5 mg oral Performed by: Clarisse Abrams RN acetaminophen (TYLENOL) tablet 1,000 mg [] Ordering Provider: Shahnaz Coto MD Status: Dispensed Ordered On: 06/01/18604 Start: 06/01/18604 Dose (Remaining/Total): 1,000 mg (--/--) Route: oral Frequency: Every 6 hours PRN Rate/Duration: -- / -- Timestamps Action Dose Route Other Information 06/05/18 1420 Given 1,000 mg oral Performed by: Cheryl Benito RN senna-docusate (PERICOLACE) 8.6-50 mg per tablet 2 tablet [] Ordering Provider: Antonietta Dunham NP Status: Dispensed Ordered On: 06/01/18642 Start: 06/01/18899 Dose (Remaining/Total): 2 tablet (--/--) Route: oral Frequency: 2 times daily Rate/Duration: -- / -- Timestamps Action Dose Route Other Information 06/05/182148 Given 2 tablet oral Performed by: Clarisse Abrams RN lidocaine (LIDODERM) 5 % patch 2 patch [] Ordering Provider: Antonietta Dunham NP Status: Dispensed Ordered On: 06/01/18642 Start: 06/01/18899 Dose (Remaining/Total): 2 patch (--/--) Route: transdermal Frequency: Daily Rate/Duration: -- / 12 Hours Admin Instructions: Do not cover the holes on the top side of the patch. Question Answer Comment Apply to affected area:: back -- Timestamps Action Dose / Duration Route / Site Other Information 06/05/1814 Medication Applied 2 patch 12 Hours transdermal Other (Comment) Performed by: Cheryl Benito RN cyclobenzaprine (FLEXERIL) tablet 5 mg [] Ordering Provider: Antonietta Dunham NP Status: Dispensed Ordered On: 06/01/18642 Start: 06/01/18642 Dose (Remaining/Total): 5 mg (--/--) Route: oral Frequency: 3 times daily PRN Rate/Duration: -- / -- Timestamps Action Dose Route Other Information 06/06/18203 Given 5 mg oral Performed by: Clarisse Abrams RN metoprolol (LOPRESSOR) tablet 50 mg [] Ordering Provider: Antonietta Dunham NP Status: Dispensed Ordered On: 06/01/18649 Start: 06/01/18899 Dose (Remaining/Total): 50 mg (--/--) Route: oral Frequency: Daily Rate/Duration: -- / -- Timestamps Action Dose Route Other Information 06/05/18812 Given 50 mg oral Performed by: Cheryl Benito RN gabapentin (NEURONTIN) capsule 100 mg [] Ordering Provider: Antonietta Dunham NP Status: Dispensed Ordered On: 06/01/18649 Start: 06/01/18899 Dose (Remaining/Total): 100 mg (--/--) Route: oral Frequency: 3 times daily Rate/Duration: -- / -- Timestamps Action Dose Route Other Information 06/05/182148 Given 100 mg oral Performed by: Clarisse Abrams RN pantoprazole DR (PROTONIX) extended release tablet 40 mg [] Ordering Provider: Antonietta Dunham NP Status: Dispensed Ordered On: 06/01/18649 Start: 06/01/18899 Dose (Remaining/Total): 40 mg (--/--) Route: oral Frequency: 2 times daily Rate/Duration: -- / -- Admin Instructions: Do not crush or chew Timestamps Action Dose Route Other Information 06/05/182148 Given 40 mg oral Performed by: Clarisse Abrams RN sertraline (ZOLOFT) tablet 50 mg [[id number]] Ordering Provider: Antonietta Dunham NP Status: Dispensed Ordered On: 06/01/18649 Start: 06/01/18 09 Dose (Remaining/Total): 50 mg (--/--) Route: oral Frequency: Daily Rate/Duration: -- / -- Timestamps Action Dose Route Other Information 06/05/18812 Given 50 mg oral Performed by: Cheryl Benito RN simvastatin (ZOCOR) tablet 10 mg [[id number]] Ordering Provider: Antonietta Dunham NP Status: Dispensed Ordered On: 06/01/18649 Start: 06/01/182099 Dose (Remaining/Total): 10 mg (--/--) Route: oral Frequency: Nightly Rate/Duration: -- / -- Timestamps Action Dose Route Other Information 06/05/182148 Given 10 mg oral Performed by: Clarisse Abrams RN chlordiazePOXIDE (LIBRIUM) capsule 25 mg [[id number]] Ordering Provider: Shahnaz Coto MD Status: Dispensed Ordered On: 06/01/18805 Starts/Ends: 06/01/18804 - 06/07/18803 Dose (Remaining/Total): 25 mg (--/--) Route: oral Frequency: Every 4 hours PRN Rate/Duration: -- / -- Admin Instructions: HOLD for any status indicating over sedation including the following: drifts off to sleep during conversation, minimal or no response to verbal or physical stimulation, or respiratory rate less than 10 breaths per minute. Re-assess in 4 hours. Timestamps Action Dose Route Other Information 06/01/18 171 Given 25 mg oral Performed by: Leighann Woodall RN chlordiazePOXIDE (LIBRIUM) capsule 25 mg [[id number]] Ordering Provider: Shahnaz Coto MD Status: Dispensed Ordered On: 06/01/18805 Starts/Ends: 06/01/18804 - 06/07/18 08 Dose (Remaining/Total): 25 mg (--/--) Route: oral Frequency: Every 2 hours PRN Rate/Duration: -- / -- Admin Instructions: HOLD for any status indicating over sedation including the following: drifts off to sleep during conversation, minimal or no response to verbal or physical stimulation, or respiratory rate less than 10 breaths per minute. Re-assess in 2 hours. Timestamps Action Dose Route Other Information 06/02/18 1630 Given 25 mg oral Performed by: Ryanne Chicas RN thiamine (VITAMIN B-1) tablet 100 mg [[id number]] Ordering Provider: Shahnaz Coto MD Status: Completed (Past End Date/Time) Ordered On: 06/01/18808 Starts/Ends: 06/01/18899 - 06/05/18812 Dose (Remaining/Total): 100 mg (0/5) Route: oral Frequency: Daily Rate/Duration: -- / -- Timestamps Action Dose Route Other Information 06/05/18812 Given 100 mg oral Performed by: Cheryl Benito RN folic acid (FOLVITE) tablet 1 mg [[id number]] Ordering Provider: Shahnaz Coto MD Status: Completed (Past End Date/Time) Ordered On: 06/01/18808 Starts/Ends: 06/01/18899 - 06/05/18813 Dose (Remaining/Total): 1 mg (0/5) Route: oral Frequency: Daily Rate/Duration: -- / -- Timestamps Action Dose Route Other Information 06/05/18813 Given 1 mg oral Performed by: Cheryl Benito RN multivit qsfwrnza-jbbh-AF-calcium (THERA-M) tablet 1 tablet [[id number]] Ordering Provider: Shahnaz Coto MD Status: Dispensed Ordered On: 06/01/18808 Start: 06/01/18899 Dose (Remaining/Total): 1 tablet (--/--) Route: oral Frequency: Daily Rate/Duration: -- / -- Timestamps Action Dose Route Other Information 06/05/18812 Given 1 tablet oral Performed by: Cheryl Benito RN losartan (COZAAR) tablet 50 mg [[id number]] Ordering Provider: Justa Clark NP Status: Dispensed Ordered On: 06/02/18910 Start: 08/06/18 0945 Dose (Remaining/Total): 50 mg (--/--) Route: oral Frequency: Daily Rate/Duration: -- / -- Timestamps Action Dose Route Other Information 06/05/18812 Given 50 mg oral Performed by: Cheryl Benito RN predniSONE (DELTASONE) tablet 5 mg [[id number]] Ordering Provider: Justa Clark NP Status: Dispensed Ordered On: 06/02/18910 Start: 06/02/18944 Dose (Remaining/Total): 5 mg (--/--) Route: oral Frequency: Daily Rate/Duration: -- / -- Timestamps Action Dose Route Other Information 06/05/18812 Given 5 mg oral Performed by: Cheryl Benito RN enoxaparin (LOVENOX) syringe 30 mg [[id number]] Ordering Provider: Justa Clark NP Status: Dispensed Ordered On: 06/02/1840 Start: 06/02/18 101 Dose (Remaining/Total): 30 mg (--/--) Route: subcutaneous Frequency: Every 12 hours scheduled Rate/Duration: -- / -- Timestamps Action Dose Route / Site Other Information 06/05/182148 Given 30 mg subcutaneous Left Lower Abdomen Performed by: Clarisse Abrams RN ipratropium (ATROVENT) 0.02 % nebulizer solution 0.5 mg [[id number]] Ordering Provider: Bernardino Penny MD Status: Dispensed Ordered On: 06/02/18 1454 Start: 06/02/18 1600 Dose (Remaining/Total): 0.5 mg (--/--) Route: nebulization Frequency: 4 times daily (security incident response engineer) Rate/Duration: -- / -- Timestamps Action Dose Route Other Information 06/05/18 1650 Given 0.5 mg nebulization Performed by: Harini Barroso RRT albuterol (PROVENTIL,VENTOLIN) 2.5 mg/0.5 mL nebulizer solution 2.5 mg [[id number]] Ordering Provider: Bernardino Penny MD Status: Dispensed Ordered On: 06/02/18 1454 Start: 06/02/18 1600 Dose (Remaining/Total): 2.5 mg (--/--) Route: nebulization Frequency: 4 times daily (security incident response engineer) Rate/Duration: -- / -- Timestamps Action Dose Route Other Information 06/05/18 1650 Given 2.5 mg nebulization Performed by: Harini Barroso, FORGE PRESS OPERATOR , OT Eval and Treat Last 72 Hours OT Evaluation No documentation. OT Treatment Row Name 06/05/18 1415 Session Type Treatment OT Received On 06/05/18 Pain Assessment 0-10 Pain Score 7 Pain Location Back (Lumbar) Pain Interventions RN Notified RN Terry Balance Yes Static Sitting-Balance Support No upper extremity supported Static Sitting-Level of Assistance Close supervision Static Sitting-Comment/# of Minutes supervision for safety Static Standing-Balance Support Bilateral upper extremity supported Static Standing-Level of Assistance Moderate assistance Static Standing-Comment/# of Minutes to maintain balance and position, correction of forward lean Dynamic Standing-Balance Support Unilateral upper extremity supported Dynamic Standing-Balance -- reaching posteriorly Dynamic Standing-Level of Assistance Moderate assistance Dynamic Standing-Comments to maintain balance and position Toileting: Where assessed Bedside Commode Toileting: Equipment utilized Toilet aid Toileting: Level of assistance Maximal Toileting: Assistance with Anterior;Posterior;Clothing management down;Clothing management up able to reach posterly, unable to perform throughly Bed Mobility Yes Bed Mobility From 1 Edge of bed Bed Mobility Type 1 To Bed Mobility to 1 Side lying-left Level of Assistance 1 Moderate assistance Bed Mobility Comments 1 assist to maneuver LEs and controlled descent of trunk Bed Mobility From 2 Side lying-left Bed Mobility Type 2 To Bed Mobility to 2 Supine Level of Assistance 2 Minimum assistance Bed Mobility Comments 2 maneuvering LEs Transfer Yes A gait belt was used for all out of bed mobility Transfer From 1 Sit Transfer Type 1 To and from Transfer to 1 Stand Transfer Level of Assistance 1 Moderate assistance Trials/Comments 1 force production, controlled descent, verbal/tactile cues to perform task safely and correctly Transfer From 2 Commode-standard Transfer Type 2 To Transfer to 2 Bed Transfer Level of Assistance 2 Moderate assistance Trials/Comments 2 assist to maintain balance and verbal cues to initiate steps Comments TLSO brace on when therapist entered room. Educated on use of AE for toileting, pt. reports follow up needed. If this is the last note, consider this the discharge summary. Plan Continue with current plan OT Recommendation Post acute rehab OT Frequency 3-5x/wk Treatment/Interventions ADLs/ADL retraining;Functional transfer training OT - Next Appointment 06/06/18 OT Notes (Notes from 06/04/18 through 06/06/18) No notes of this type exist for this encounter. , PT Eval and Treat Last 72 Hours PT Evaluation Row Name 06/05/18 1512 06/03/18 1200 Chart Reviewed -- Yes Session Type -- Evaluation Pt supine in bed in NAD. Family/Caregiver Present -- No Physical Therapy-Patient Goal -- To increase endurance PT Functional Mobility -- Pt agreeable to therapy. Skilled intervention and education provided during functional mobility to progress toward goals. Precautions Fall risk;Spinal TLSO w/ OOB Fall risk;Spinal Back Brace in place Yes -- Type of Home -- Apartment Home Layout -- One level Home Access -- Level entry Home Mobility Equipment -- Wheeled walker;Cane Level of [place] -- Independent with ADLs and functional transfers CO with limited community amb using either [facility] or [place]. 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 Unable to provide details. Activity Tolerance Comments -- Olesya: somewhat hard Pain Assessment -- 0-10 Pain Score -- 7 Pain Type -- Acute pain Pain Location -- Back (Lumbar) Pain Interventions -- -- PAUL joel Arousal/Alertness -- Appropriate responses to stimuli Orientation Level -- Oriented X4 Following Commands -- Follows all commands and directions without difficulty Compliance/Behavior -- Easy to engage Light Touch -- Partial deficits in the RLE;Partial deficits in the LLE Sensation Comments -- No edema noted Balance -- Yes Unable to do 10m walk which is appropriate. Static Sitting-Balance Support -- Bilateral upper extremity supported;Feet supported Static Sitting-Level of Assistance -- Close supervision Static Standing-Balance Support -- Bilateral upper extremity supported Static Standing-Level of Assistance -- Moderate assistance Bed Mobility -- Yes Bed Mobility From 1 -- Supine Bed Mobility Type 1 -- To Bed Mobility to 1 -- Rolling right Level of Assistance 1 -- Moderate assistance;Minimal verbal cues Bed Mobility Comments 1 -- Cues to maintain precautions during task Bed Mobility From 2 -- Side lying-right Bed Mobility Type 2 -- To Bed Mobility to 2 -- Edge of Bed Level of Assistance 2 -- Moderate assistance;Minimal verbal cues Bed Mobility Comments 2 -- Assist to maneuver LEs and elevated trunk. Cues to perform task safely. Transfer -- Yes Transfer From 1 -- Sit Transfer Type 1 -- To and from Transfer to 1 -- Stand Technique 1 -- Sit to stand;Stand to sit Transfer Device 1 -- hand hold Transfer Level of Assistance 1 -- Moderate assistance;Minimal verbal cues Trials/Comments 1 Assist for elevation from bed and controlled decent into sitting Assist due to impaired balance and for safety Cues to perform task safely. Transfer From 2 -- Bed Transfer Type 2 -- To Transfer to 2 -- Chair with arms Technique 2 -- -- stand and step Transfer Device 2 -- hand hold Transfer Level of Assistance 2 -- Moderate assistance;Minimal verbal cues Trials/Comments 2 -- Cues to perform task safely. Assist due to impaired balance Functional Ambulation Category -- 0 Ambulation -- No RUE Assessment -- WFL LUE Assessment -- WFL RLE Assessment -- X midfoot amputation LLE Assessment -- WFL Equipment Use Comments -- Pt with TLSO on in bed and remained on throughout session. No gait belt used due to pt refusal. Other PT Comments -- Pt sitting up in recliner at end of session with call light within reach. If last PT session, consider this DC summary. Potential/Prognosis -- Fair Problem List -- Decreased strength;Decreased endurance;Impaired balance;Decreased mobility;Pain;Orthopedic restrictions Problem List Comments -- PT diagnoses: [place] 5A, Pattern 4G, Pattern 6C PT Recommendation/Plan -- Post acute rehab PT Frequency -- 3-5x/wk Treatment/Interventions -- Functional transfer training;Endurance training;Balance Training;Bed mobility;Gait training;Therapeutic exercises PT - OK to Discharge -- No PT Evaluation Complete -- Yes PT TREATMENT (last 72 hours) PT Treatment Row Name 06/06/18 0736 06/06/18 0554 06/06/18 0522 06/06/18 0520 06/06/18 0423 Precautions Precautions Fall risk Fall risk Fall risk -- Fall risk Pain Assessment Pain Assessment -- -- -- 0-10 -- Pain Score -- -- -- 9 -- Patient's Stated Pain Goal -- -- -- 4 -- Pain Type -- -- -- Acute pain -- Pain Location -- -- -- Back (Lumbar) -- Pain Orientation -- -- -- Generalized -- Pain Descriptors -- -- -- Aching -- Pain Frequency -- -- -- Constant/continuous -- Pain Onset -- -- -- Ongoing -- Clinical Progression -- -- -- Not changed -- Pain Interventions -- -- -- Medication (See MAR) -- Row Name 06/06/18 0318 06/06/18 0204 06/06/18 0200 06/06/18 0106 06/06/18 0105 Precautions Precautions Fall risk Fall risk -- Fall risk -- Pain Assessment Pain Assessment -- -- 0-10 -- 0-10 Pain Score -- -- 7 -- 9 Patient's Stated Pain Goal -- -- 4 -- 4 Pain Type -- -- Acute pain -- Acute pain Pain Location -- -- Back (Lumbar) -- Back (Lumbar) Pain Orientation -- -- Generalized -- Generalized Pain Descriptors -- -- Aching -- Aching Pain Frequency -- -- Constant/continuous -- Constant/continuous Pain Onset -- -- Ongoing -- Ongoing Clinical Progression -- -- Not changed -- Not changed Pain Interventions -- -- Medication (See MAR) -- Medication (See MAR) Row Name 06/06/18 0033 06/06/18 0001 06/05/18 2307 06/05/18 2240 06/05/18 2214 Precautions Precautions Fall risk Fall risk Fall risk Fall risk Fall risk Row Name 06/05/18 2148 06/05/18 2102 06/05/18 2046 06/05/18 1956 06/05/18 1942 Precautions Precautions Fall risk Fall risk Fall risk Fall risk Fall risk Row Name 06/05/18 1940 06/05/18 1814 06/05/18 1741 06/05/18 1600 06/05/18 1551 Precautions Precautions -- -- Fall risk Fall risk Fall risk Pain Assessment Pain Assessment 0-10 -- -- -- -- Pain Score 7 7 -- -- -- Patient's Stated Pain Goal 3 -- -- -- -- Pain Type Acute pain -- -- -- -- Pain Location Back (Lumbar) -- -- -- -- Pain Orientation Generalized -- -- -- -- Pain Descriptors Aching -- -- -- -- Pain Frequency Constant/continuous -- -- -- -- Pain Onset Ongoing -- -- -- -- Pain Interventions RN Notified -- -- -- -- Row Name 06/05/18 1512 06/05/18 1440 06/05/18 1420 06/05/18 1415 06/05/18 1330 PT Last Visit Session Type Treatment -- -- Treatment -- Current Functional Status PT Functional Mobility Pt agreeable to therapy session -- -- -- -- Precautions Precautions Fall risk;Spinal TLSO w/ OOB Fall risk -- -- Fall risk Back Brace in place Yes -- -- -- -- Activity Tolerance Activity Tolerance Comments OLESYA: somewhat hard -- -- -- -- Pain Assessment Pain Assessment 0-10 -- -- 0-10 -- Pain Score 7 -- 10 - Worst possible pain 7 -- Pain Location Back (Lumbar) -- -- Back (Lumbar) -- Pain Interventions RN Notified PAUL Luna notified -- -- RN Notified PAUL Stewart -- Cognition Overall Cognitive Status WFL -- -- -- -- Balance Balance Yes -- -- Yes -- Static Sitting Balance Static Sitting-Balance Support Bilateral upper extremity supported;Feet supported UE support with bed -- -- No upper extremity supported -- Static Sitting-Level of Assistance Close supervision -- -- Close supervision -- Static Sitting-Comment/# of Minutes supervision for safety -- -- supervision for safety -- Static Standing Balance Static Standing-Balance Support Bilateral upper extremity supported UE support with wheeled walker -- -- Bilateral upper extremity supported -- Static Standing-Level of Assistance Minimum assistance -- -- Moderate assistance -- Static Standing-Comment/# of Minutes assist to maintain balance -- -- to maintain balance and position, correction of forward lean -- Dynamic Standing Balance Dynamic Standing-Balance Support -- -- -- Unilateral upper extremity supported -- Dynamic Standing-Balance -- -- -- -- reaching posteriorly -- Dynamic Standing-Level of Assistance -- -- -- Moderate assistance -- Dynamic Standing-Comments -- -- -- to maintain balance and position -- Bed Mobility Bed Mobility Yes -- -- Yes -- Bed Mobility 1 Bed Mobility From 1 Supine -- -- Edge of bed -- Bed Mobility Type 1 To -- -- To -- Bed Mobility to 1 Side lying-right -- -- Side lying-left -- Level of Assistance 1 Minimum assistance -- -- Moderate assistance -- Bed Mobility Comments 1 assist for full roll and cues for technique -- -- assist to maneuver LEs and controlled descent of trunk -- Bed Mobility 2 Bed Mobility From 2 Side lying-right -- -- Side lying-left -- Bed Mobility Type 2 To -- -- To -- Bed Mobility to 2 Edge of Bed -- -- Supine -- Level of Assistance 2 Minimum assistance -- -- Minimum assistance -- Bed Mobility Comments 2 Assist for elevation from bed -- -- maneuvering LEs -- Transfers Transfer Yes -- -- Yes A gait belt was used for all out of bed mobility -- Transfer 1 Transfer From 1 Sit -- -- Sit -- Transfer Type 1 To and from -- -- To and from -- Transfer to 1 Stand -- -- Stand -- Transfer Device 1 Wheeled walker -- -- -- -- Transfer Level of Assistance 1 Moderate assistance -- -- Moderate assistance -- Trials/Comments 1 Assist for elevation from bed and controlled decent into sitting -- -- force production, controlled descent, verbal/tactile cues to perform task safely and correctly -- Transfers 2 Transfer From 2 Bed -- -- Commode-standard -- Transfer Type 2 To -- -- To -- Transfer to 2 Chair with arms -- -- Bed -- Technique 2 Stand pivot -- -- -- -- Transfer Device 2 Wheeled walker -- -- -- -- Transfer Level of Assistance 2 Minimum assistance -- -- Moderate assistance -- Trials/Comments 2 Assist for maintaining balance -- -- assist to maintain balance and verbal cues to initiate steps -- Other Comments Other PT Comments Pt educated on precautions, pt verbalized and demonstrated understanding with mobility. Gait belt used for mobility atop of TLSO. TLSO donned prior to all mobility. If this is the last documentation prior to discharge consider this the discharge summary and pt discharged from PT service -- -- -- -- Assessment Problem List Impaired balance;Decreased mobility;Decreased strength;Decreased endurance -- -- -- -- Problem List Comments -- -- -- -- -- Recommendation/Plan PT Recommendation/Plan Post acute therapy -- -- -- -- PT Frequency 3-5x/wk -- -- -- -- Treatment/Interventions Functional transfer training;Bed mobility;Balance Training -- -- ADLs/ADL retraining;Functional transfer training -- Row Name 06/05/18 1153 06/05/18 1100 06/05/18 1029 06/05/18 1000 06/05/18 0900 Precautions Precautions Fall risk Fall risk -- Fall risk Fall risk Pain Assessment Pain Score -- -- 7 -- -- Row Name 06/05/18 0813 06/05/18 0805 06/05/18 0720 06/05/18 0634 06/05/18 0618 Precautions Precautions -- Fall risk Fall risk Fall risk Fall risk Pain Assessment Pain Assessment -- 0-10 -- -- -- Pain Score 7 7 -- -- -- Patient's Stated Pain Goal -- 3 -- -- -- Pain Type -- Acute pain -- -- -- Pain Location -- Back (Lumbar) -- -- -- Pain Orientation -- Generalized -- -- -- Pain Descriptors -- Aching -- -- -- Pain Frequency -- Intermittent -- -- -- Row Name 06/05/18 0550 06/05/18 0549 06/05/18 0500 06/05/18 0342 06/05/18 0257 Precautions Precautions -- Fall risk Fall risk Fall risk Fall risk Pain Assessment Pain Assessment 0-10 -- -- -- -- Pain Score 7 -- -- -- -- Patient's Stated Pain Goal 3 -- -- -- -- Pain Type Acute pain -- -- -- -- Pain Location Back (Lumbar) -- -- -- -- Pain Orientation Generalized -- -- -- -- Pain Descriptors Aching -- -- -- -- Pain Frequency Intermittent -- -- -- -- Pain Interventions Medication (See MAR) -- -- -- -- Row Name 06/05/18 0206 06/05/18 0129 06/05/18 0015 06/04/18 2353 06/04/18 2345 Precautions Precautions Fall risk Fall risk Fall risk Fall risk Fall risk Pain Assessment Pain Assessment -- -- -- -- 0-10 Pain Score -- -- -- -- 7 Patient's Stated Pain Goal -- -- -- -- 4 Pain Type -- -- -- -- Acute pain Pain Location -- -- -- -- Back (Lumbar) Pain Orientation -- -- -- -- Generalized Pain Descriptors -- -- -- -- Aching Pain Frequency -- -- -- -- Intermittent Pain Interventions -- -- -- -- Medication (See MAR) Row Name 06/04/18223506/04/18221706/04/18212906/04/18203306/04/182009 Precautions Precautions Fall risk Fall risk Fall risk Fall risk -- Pain Assessment Pain Assessment -- -- -- -- 0-10 Pain Score -- -- -- -- 7 Patient's Stated Pain Goal -- -- -- -- 4 Pain Type -- -- -- -- Acute pain Pain Location -- -- -- -- Back (Lumbar) Pain Orientation -- -- -- -- Generalized Pain Descriptors -- -- -- -- Aching Pain Frequency -- -- -- -- Constant/continuous Pain Onset -- -- -- -- Ongoing Clinical Progression -- -- -- -- Not changed Pain Interventions -- -- -- -- RN Notified Row Name 06/04/18199906/04/18 1322 06/04/18 1015 06/04/18 1008 06/04/18 0900 Precautions Precautions Fall risk -- -- -- -- Pain Assessment Pain Assessment -- -- 0-10 -- -- Pain Score -- 7 7 -- -- Cognition Orientation Level -- -- -- Oriented X4 Oriented X4 Row Name 06/04/18 0706/03/18203406/03/18 1910 06/03/18 1752 06/03/18 1715 Precautions Precautions Fall risk -- Fall risk;Spinal Fall risk;Spinal Fall risk;Spinal Pain Assessment Pain Assessment -- 0-10 -- -- -- Pain Score -- 5 - Moderate pain -- -- -- Patient's Stated Pain Goal -- 2 -- -- -- Pain Type -- Acute pain -- -- -- Pain Location -- Back (Lumbar) -- -- -- Pain Orientation -- Generalized -- -- -- Pain Descriptors -- Aching -- -- -- Pain Frequency -- Constant/continuous -- -- -- Pain Onset -- Ongoing -- -- -- Clinical Progression -- Not changed -- -- -- Cognition Orientation Level -- Oriented X4 -- -- -- Row Name 06/03/18 1600 06/03/18 1436 06/03/18 1400 06/03/18 1200 06/03/18 1155 PT Last Visit Session Type -- -- -- Evaluation Pt supine in bed in NAD. -- Current Functional Status PT Functional Mobility -- -- -- Pt agreeable to therapy. Skilled intervention and education provided during functional mobility to progress toward goals. -- Precautions Precautions Fall risk;Spinal -- Fall risk;Spinal Fall risk;Spinal -- Activity Tolerance Activity Tolerance Comments -- -- -- Olesya: somewhat hard -- Pain Assessment Pain Assessment -- -- -- 0-10 0-10 Pain Score -- 5 - Moderate pain -- 7 7 Patient's Stated Pain Goal -- -- -- -- 3 Pain Type -- -- -- Acute pain Acute pain Pain Location -- -- -- Back (Lumbar) Back (Lumbar) Pain Descriptors -- -- -- -- Aching Pain Frequency -- -- -- -- Constant/continuous Pain Onset -- -- -- -- Ongoing Pain Interventions -- -- -- -- PAUL Jackson aware Medication (See MAR) Cognition Arousal/Alertness -- -- -- Appropriate responses to stimuli -- Orientation Level -- -- -- Oriented X4 -- Following Commands -- -- -- Follows all commands and directions without difficulty -- Compliance/Behavior -- -- -- Easy to engage -- Balance Balance -- -- -- Yes Unable to do 10m walk which is appropriate. -- Static Sitting Balance Static Sitting-Balance Support -- -- -- Bilateral upper extremity supported;Feet supported -- Static Sitting-Level of Assistance -- -- -- Close supervision -- Static Standing Balance Static Standing-Balance Support -- -- -- Bilateral upper extremity supported -- Static Standing-Level of Assistance -- -- -- Moderate assistance -- Equipment Use Equipment Use Comments -- -- -- Pt with TLSO on in bed and remained on throughout session. No gait belt used due to pt refusal. -- Bed Mobility Bed Mobility -- -- -- Yes -- Bed Mobility 1 Bed Mobility From 1 -- -- -- Supine -- Bed Mobility Type 1 -- -- -- To -- Bed Mobility to 1 -- -- -- Rolling right -- Level of Assistance 1 -- -- -- Moderate assistance;Minimal verbal cues -- Bed Mobility Comments 1 -- -- -- Cues to maintain precautions during task -- Bed Mobility 2 Bed Mobility From 2 -- -- -- Side lying-right -- Bed Mobility Type 2 -- -- -- To -- Bed Mobility to 2 -- -- -- Edge of Bed -- Level of Assistance 2 -- -- -- Moderate assistance;Minimal verbal cues -- Bed Mobility Comments 2 -- -- -- Assist to maneuver LEs and elevated trunk. Cues to perform task safely. -- Transfers Transfer -- -- -- Yes -- Transfer 1 Transfer From 1 -- -- -- Sit -- Transfer Type 1 -- -- -- To and from -- Transfer to 1 -- -- -- Stand -- Technique 1 -- -- -- Sit to stand;Stand to sit -- Transfer Device 1 -- -- -- hand hold -- Transfer Level of Assistance 1 -- -- -- Moderate assistance;Minimal verbal cues -- Trials/Comments 1 -- -- -- Assist due to impaired balance and for safety Cues to perform task safely. -- Transfers 2 Transfer From 2 -- -- -- Bed -- Transfer Type 2 -- -- -- To -- Transfer to 2 -- -- -- Chair with arms -- Technique 2 -- -- -- -- stand and step -- Transfer Device 2 -- -- -- hand hold -- Transfer Level of Assistance 2 -- -- -- Moderate assistance;Minimal verbal cues -- Trials/Comments 2 -- -- -- Cues to perform task safely. Assist due to impaired balance -- Ambulation Functional Ambulation Category -- -- -- 0 -- Ambulation -- -- -- No -- Other Comments Other PT Comments -- -- -- Pt sitting up in recliner at end of session with call light within reach. If last PT session, consider this DC summary. -- RUE Assessment RUE Assessment -- -- -- WFL -- LUE Assessment LUE Assessment -- -- -- WFL -- RLE Assessment RLE Assessment -- -- -- X midfoot amputation -- LLE Assessment LLE Assessment -- -- -- WFL -- Assessment Potential/Prognosis -- -- -- Fair -- Problem List -- -- -- Decreased strength;Decreased endurance;Impaired balance;Decreased mobility;Pain;Orthopedic restrictions -- Problem List Comments -- -- -- PT diagnoses: [place] 5A, Pattern 4G, Pattern 6C -- Recommendation/Plan PT Recommendation/Plan -- -- -- Post acute rehab -- PT Frequency -- -- -- 3-5x/wk -- Treatment/Interventions -- -- -- Functional transfer training;Endurance training;Balance Training;Bed mobility;Gait training;Therapeutic exercises -- PT - OK to Discharge -- -- -- No -- PT Evaluation Complete -- -- -- Yes -- Row Name 06/03/18 1100 06/03/18 1001 06/03/18 0945 06/03/18 0830 Precautions Precautions Fall risk -- Fall risk Fall risk Pain Assessment Pain Score -- 7 -- -- Cognition Orientation Level Oriented X4 Oriented X4 -- -- PT Notes (Notes from 06/04/18 through 06/06/18) 06/05/2018 3:55 PM Progress Notes signed by Torri Marshall DPT , Vitals Info Only Vital Signs 06/05 07 - 06/06 0659 06/06 07 - 06/06 0744 Most Recent Temp (??C) 36.4 - 37.3 36.4 (97.5) Pulse 66 - 89 81 Resp 18 - 22 20 SpO2 (%) 92 - 100 93 BP 119/65 - (!) 179/98 144/86 MAP (mmHg) 83 - 120 101 * Plan of Care - Clarisse Abrams RN - 06/05/2018 10:41 PM CDT Goals: Clinical Goals for the Shift: pn control, ambulation Summary: Patient has continued to state pain being at seven even after pain medication. Patient hascontinued to ambulate well with his TSLO brace on. Patient is continuing to call out when he needs help. * Plan of Care - Annie Muhammad - 06/05/2018 4:00 PM CDT Problem: Transfers Goal: STG - Patient to transfer to and from sit to supine With supervision maintain spinal precautions. Outcome: Progressing 06/05/18 1512 Transfers Assist Level (Min assist, maintained precautions) Goal updated 06/05 Goal: STG - Patient will transfer sit to and from stand With MIN A maintaining spinal precautions. Outcome: Progressing 06/05/18 1512 Transfers Assist Level (mod assist, maintained precautions) Cosigned by Torri Marshall DPT at 06/05/2018 4:27 PM CDT * Plan of Care - Heidi Garcia OT - 06/05/2018 3:15 PM CDT Problem: Toileting Goal: STG - Patient will complete toileting tasks with With Min A using AE as needed Outcome: Progressing Problem: Transfers Goal: STG - Patient will perform toilet transfer With Min A to BSC Outcome: Progressing * Plan of Care - Cheryl Benito RN - 06/05/2018 12:04 PM CDT Activity: ??? Mobility will improve Progressing Health Behavior: ??? Understanding of discharge needs will improve Progressing Health Behavior: ??? Ability to manage health-related needs will improve Progressing Lack of Knowledge: ??? Ability to state ways to decrease the risk of falls will improve Progressing Lack of Knowledge: ??? Understanding of ways to prevent future skin breakdown will improve Progressing ??? Ability to identify appropriate dietary choices will improve Progressing Lack of Knowledge: ??? Knowledge on safety and abstaining from self-injurious behavior will increase Progressing ??? Knowledge of therapies/resources will increase Progressing Low Risk for Self-Injurious Behavior: ??? Ability to remain free from injury will improve Progressing Nutritional: ??? Dietary intake will improve Progressing ??? Ability to maintain a balanced intake and output will improve Progressing Safety: ??? Will remain free from falls Progressing ??? Will remain free from injury from falls Progressing ??? Will remain free from falls and injury in home environment Progressing Skin Integrity: ??? Risk for impaired skin integrity will decrease Progressing ??? Ability to demonstrate warm and dry skin will improve Progressing ??? Circulation will improve to fullest extent possible Progressing Goals: Clinical Goals for the Shift: pn control, ambulation Summary: Patient is progressing towards discharge goals unless as noted. Cheryl Benito RN 12:04 PM 06/05/2018 * Plan of Care - Clarisse Abrams RN - 06/04/2018 10:28 PM CDT Goals: Clinical Goals for the Shift: pn control, ambulation Summary: Patient has stated pain is manageable currently. Patient has been getting up to the commode well and has voided three times tonight so far. * Plan of Care - Adwoa Jefferson MSW - 06/04/2018 3:59 PM CDT SHARON has submitted 30+ referrals for patient for placement and have denied pt. Pts barriers are the following: sex offender status/registration, hx of alcoholism, facilities within certain parameters of schools, and [employer] insurance facility coverage. [facility] has been working with [place] to collaboratea plan for pt. [facility] has been contacted as well for additional support. [facility]ON will continue to send referrals and search for placement. Pt and family are aware of the barriers to discharge. * Plan of Care - Molly Miller RN - 06/04/2018 12:53 PM CDT Goals: Clinical Goals for the Shift: pn control, ambulation Summary: * Plan of Care - Master Lobo RN - 06/04/2018 10:06 AM CDT Per DCAM pt is ready for discharge 06/04/18. SW following for SNF placement. * Plan of Care - Mony Brock, MARY - 06/04/2018 9:48 AM CDT Pt hx of COPD and DM. Pt tolerated duoneb tx well. RT will continue to monitor and deliver therapy as ordered. * Plan of Care - Emmanuel Diaz RN - 06/03/2018 9:24 PM CDT Activity: ??? Mobility will improve Progressing Health Behavior: ??? Understanding of discharge needs will improve Progressing Health Behavior: ??? Ability to manage health-related needs will improve Progressing Lack of Knowledge: ??? Ability to state ways to decrease the risk of falls will improve Progressing Lack of Knowledge: ??? Understanding of ways to prevent future skin breakdown will improve Progressing ??? Ability to identify appropriate dietary choices will improve Progressing Lack of Knowledge: ??? Knowledge on safety and abstaining from self-injurious behavior will increase Progressing ??? Knowledge of therapies/resources will increase Progressing Low Risk for Self-Injurious Behavior: ??? Ability to remain free from injury will improve Progressing Nutritional: ??? Dietary intake will improve Progressing ??? Ability to maintain a balanced intake and output will improve Progressing Safety: ??? Will remain free from falls Progressing ??? Will remain free from injury from falls Progressing ??? Will remain free from falls and injury in home environment Progressing Skin Integrity: ??? Risk for impaired skin integrity will decrease Progressing ??? Ability to demonstrate warm and dry skin will improve Progressing ??? Circulation will improve to fullest extent possible Progressing Goals: Clinical Goals for the Shift: pn control, ambulation Summary: * Plan of Care - Adwoa Jefferson MSW - 06/03/2018 3:57 PM CDT SW was notified that pt is considered to be a sex offender in [place]. Pt has been denied placement by 15+ facilties and pt will require a private room/bathroom due to his status. Facility must be [id number] to any schools as well. Pt also has [employer] insurance which limits facility options. Pt's ADD06/04. Medical aware. SW to continue discharge planning. * ECIN Note - Adwoa Jefferson MSW - 06/03/2018 1:13 PM CDT Patient Information: PT Eval and Treat Last 72 Hours PT Evaluation Row Name 06/03/18 1200 Chart Reviewed Yes Session Type Evaluation Pt supine in bed in NAD. Family/Caregiver Present No Physical Therapy-Patient Goal To increase endurance PT Functional Mobility Pt agreeable to therapy. Skilled intervention and education provided during functional mobility to progress toward goals. Precautions Fall risk;Spinal Type of Home Apartment Home Layout One level Home Access Level entry Home Mobility Equipment Wheeled walker;Cane Level of [place] Independent with ADLs and functional transfers CO with limited community amb using either WW or SC. 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 Unable to provide details. Activity Tolerance Comments Olesya: somewhat hard Pain Assessment 0-10 Pain Score 7 Pain Type Acute pain Pain Location Back (Lumbar) Pain Interventions -- PAUL Jackson aware Arousal/Alertness Appropriate responses to stimuli Orientation Level Oriented X4 Following Commands Follows all commands and directions without difficulty Compliance/Behavior Easy to engage Light Touch Partial deficits in the RLE;Partial deficits in the LLE Sensation Comments No edema noted Balance Yes Unable to do 10m walk which is appropriate. Static Sitting-Balance Support Bilateral upper extremity supported;Feet supported Static Sitting-Level of Assistance Close supervision Static Standing-Balance Support Bilateral upper extremity supported Static Standing-Level of Assistance Moderate assistance Bed Mobility Yes Bed Mobility From 1 Supine Bed Mobility Type 1 To Bed Mobility to 1 Rolling right Level of Assistance 1 Moderate assistance;Minimal verbal cues Bed Mobility Comments 1 Cues to maintain precautions during task Bed Mobility From 2 Side lying-right Bed Mobility Type 2 To Bed Mobility to 2 Edge of Bed Level of Assistance 2 Moderate assistance;Minimal verbal cues Bed Mobility Comments 2 Assist to maneuver LEs and elevated trunk. Cues to perform task safely. Transfer Yes Transfer From 1 Sit Transfer Type 1 To and from Transfer to 1 Stand Technique 1 Sit to stand;Stand to sit Transfer Device 1 hand hold Transfer Level of Assistance 1 Moderate assistance;Minimal verbal cues Trials/Comments 1 Assist due to impaired balance and for safety Cues to perform task safely. Transfer From 2 Bed Transfer Type 2 To Transfer to 2 Chair with arms Technique 2 -- stand and step Transfer Device 2 hand hold Transfer Level of Assistance 2 Moderate assistance;Minimal verbal cues Trials/Comments 2 Cues to perform task safely. Assist due to impaired balance Functional Ambulation Category 0 Ambulation No RUE Assessment WFL LUE Assessment WFL RLE Assessment X midfoot amputation LLE Assessment WFL Equipment Use Comments Pt with TLSO on in bed and remained on throughout session. No gait belt useddue to pt refusal. Other PT Comments Pt sitting up in recliner at end of session with call light within reach. If last PT session, consider this DC summary. Potential/Prognosis Fair Problem List Decreased strength;Decreased endurance;Impaired balance;Decreased mobility;Pain;Orthopedic restrictions Problem List Comments PT diagnoses: [place] 5A, Pattern 4G, Pattern 6C PT Recommendation/Plan Post acute rehab PT Frequency 3-5x/wk Treatment/Interventions Functional transfer training;Endurance training;Balance Training;Bed mobility;Gait training;Therapeutic exercises PT - OK to Discharge No PT Evaluation Complete Yes PT TREATMENT (last 72 hours) PT Treatment Row Name 06/03/18 1200 06/03/18 1155 06/03/18 1100 06/03/18 1001 06/03/18 0945 PT Last Visit Session Type Evaluation Pt supine in bed in NAD. -- -- -- -- Current Functional Status PT Functional Mobility Pt agreeable to therapy. Skilled intervention and education provided during functional mobility to progress toward goals. -- -- -- -- Precautions Precautions Fall risk;Spinal -- Fall risk -- Fall risk Activity Tolerance Activity Tolerance Comments Olesya: somewhat hard -- -- -- -- Pain Assessment Pain Assessment 0-10 0-10 -- -- -- Pain Score 7 7 -- 7 -- Patient's Stated Pain Goal -- 3 -- -- -- Pain Type Acute pain Acute pain -- -- -- Pain Location Back (Lumbar) Back (Lumbar) -- -- -- Pain Descriptors -- Aching -- -- -- Pain Frequency -- Constant/continuous -- -- -- Pain Onset -- Ongoing -- -- -- Pain Interventions -- PAUL Jackson aware Medication (See MAR) -- -- -- Cognition Arousal/Alertness Appropriate responses to stimuli -- -- -- -- Orientation Level Oriented X4 -- Oriented X4 Oriented X4 -- Following Commands Follows all commands and directions without difficulty -- -- -- -- Compliance/Behavior Easy to engage -- -- -- -- Balance Balance Yes Unable to do 10m walk which is appropriate. -- -- -- -- Static Sitting Balance Static Sitting-Balance Support Bilateral upper extremity supported;Feet supported -- -- -- -- Static Sitting-Level of Assistance Close supervision -- -- -- -- Static Standing Balance Static Standing-Balance Support Bilateral upper extremity supported -- -- -- -- Static Standing-Level of Assistance Moderate assistance -- -- -- -- Equipment Use Equipment Use Comments Pt with TLSO on in bed and remained on throughout session. No gait belt useddue to pt refusal. -- -- -- -- Bed Mobility Bed Mobility Yes -- -- -- -- Bed Mobility 1 Bed Mobility From 1 Supine -- -- -- -- Bed Mobility Type 1 To -- -- -- -- Bed Mobility to 1 Rolling right -- -- -- -- Level of Assistance 1 Moderate assistance;Minimal verbal cues -- -- -- -- Bed Mobility Comments 1 Cues to maintain precautions during task -- -- -- -- Bed Mobility 2 Bed Mobility From 2 Side lying-right -- -- -- -- Bed Mobility Type 2 To -- -- -- -- Bed Mobility to 2 Edge of Bed -- -- -- -- Level of Assistance 2 Moderate assistance;Minimal verbal cues -- -- -- -- Bed Mobility Comments 2 Assist to maneuver LEs and elevated trunk. Cues to perform task safely. -- -- -- -- Transfers Transfer Yes -- -- -- -- Transfer 1 Transfer From 1 Sit -- -- -- -- Transfer Type 1 To and from -- -- -- -- Transfer to 1 Stand -- -- -- -- Technique 1 Sit to stand;Stand to sit -- -- -- -- Transfer Device 1 hand hold -- -- -- -- Transfer Level of Assistance 1 Moderate assistance;Minimal verbal cues -- -- -- -- Trials/Comments 1 Assist due to impaired balance and for safety Cues to perform task safely. -- -- -- -- Transfers 2 Transfer From 2 Bed -- -- -- -- Transfer Type 2 To -- -- -- -- Transfer to 2 Chair with arms -- -- -- -- Technique 2 -- stand and step -- -- -- -- Transfer Device 2 hand hold -- -- -- -- Transfer Level of Assistance 2 Moderate assistance;Minimal verbal cues -- -- -- -- Trials/Comments 2 Cues to perform task safely. Assist due to impaired balance -- -- -- -- Ambulation Functional Ambulation Category 0 -- -- -- -- Ambulation No -- -- -- -- Other Comments Other PT Comments Pt sitting up in recliner at end of session with call light within reach. If last PT session, consider this DC summary. -- -- -- -- RUE Assessment RUE Assessment WFL -- -- -- -- LUE Assessment LUE Assessment WFL -- -- -- -- RLE Assessment RLE Assessment X midfoot amputation -- -- -- -- LLE Assessment LLE Assessment WF -- -- -- -- Assessment Potential/Prognosis Fair -- -- -- -- Problem List Decreased strength;Decreased endurance;Impaired balance;Decreased mobility;Pain;Orthopedic restrictions -- -- -- -- Problem List Comments PT diagnoses: [place] 5A, Pattern 4G, Pattern 6C -- -- -- -- Recommendation/Plan PT Recommendation/Plan Post acute rehab -- -- -- -- PT Frequency 3-5x/wk -- -- -- -- Treatment/Interventions Functional transfer training;Endurance training;Balance Training;Bed mobility;Gait training;Therapeutic exercises -- -- -- -- PT - OK to Discharge No -- -- -- -- PT Evaluation Complete Yes -- -- -- -- Row Name 06/03/18 0830 06/03/18 0730 06/03/18 0602 06/03/18 0550 06/03/18 0430 Precautions Precautions Fall risk Fall risk -- Fall risk Fall risk Pain Assessment Pain Assessment -- -- -- -- 0-10 Pain Score -- -- 7 -- -- Row Name 06/03/18 0330 06/03/18 0216 06/03/18 0120 06/03/18 0035 06/03/18 0004 Precautions Precautions Fall risk Fall risk Fall risk Fall risk -- Pain Assessment Pain Assessment -- -- -- -- 0-10 Pain Score -- -- -- -- 7 Row Name 06/02/18 2315 06/02/18 2210 06/02/18 2158 06/02/18 2140 06/02/18 2025 Precautions Precautions Fall risk Fall risk -- Fall risk Fall risk Pain Assessment Pain Assessment -- -- 0-10 -- -- Pain Score -- -- 7 -- -- Row Name 06/02/18199906/02/18 1930 06/02/18 1818 06/02/18 1703 06/02/18 1621 Precautions Precautions -- Fall risk Fall risk Fall risk Fall risk Pain Assessment Pain Assessment 0-10 -- -- -- -- Pain Score 7 -- -- -- -- Cognition Orientation Level Oriented X4;Able to orient when provided with multiple choice options -- -- -- -- Row Name 06/02/18 1537 06/02/18 1535 06/02/18 1412 06/02/18 1336 06/02/18 1231 PT Last Visit Session Type -- Evaluation -- -- -- Precautions Precautions Fall risk Fall risk;Spinal Fall risk Fall risk Fall risk Back Brace in place -- Yes -- -- -- Pain Assessment Pain Assessment -- 0-10 -- -- -- Pain Score -- 7 -- -- -- Pain Interventions -- RN Notified Ryanne -- -- -- Cognition Arousal/Alertness -- Appropriate responses to stimuli -- -- -- Orientation Level -- Oriented to place;Oriented to situation;Oriented to person -- -- -- Following Commands -- Follows all commands and directions without difficulty -- -- -- Compliance/Behavior -- Easy to engage -- -- -- Balance Balance -- Yes -- -- -- Static Sitting Balance Static Sitting-Balance Support -- Bilateral upper extremity supported -- -- -- Static Sitting-Level of Assistance -- Close supervision for safety -- -- -- Static Standing Balance Static Standing-Balance Support -- Bilateral upper extremity supported -- -- -- Static Standing-Level of Assistance -- Moderate assistance for balance and safety -- -- -- Bed Mobility Bed Mobility -- Yes -- -- -- Bed Mobility 1 Bed Mobility From 1 -- Supine -- -- -- Bed Mobility Type 1 -- To and from -- -- -- Bed Mobility to 1 -- Rolling right;Rolling left -- -- -- Level of Assistance 1 -- Minimum assistance;Moderate verbal cues for force production and cues for correct log roll technique -- -- -- Bed Mobility 2 Bed Mobility From 2 -- Supine -- -- -- Bed Mobility Type 2 -- To -- -- -- Bed Mobility to 2 -- Edge of Bed -- -- -- Level of Assistance 2 -- Minimum assistance x2 for manuever legs and force production to sit up -- -- -- Transfers Transfer -- Yes gait belt used for OOB mobility -- -- -- Transfer 1 Transfer From 1 -- Commode-standard -- -- -- Transfer Type 1 -- To -- -- -- Transfer to 1 -- Chair with arms -- -- -- Technique 1 -- Stand pivot -- -- -- Transfer Level of Assistance 1 -- Moderate assistance for balance and controlled desecent -- -- -- RUE Assessment RUE Assessment -- WFL -- -- -- LUE Assessment LUE Assessment -- WFL -- -- -- Recommendation/Plan Treatment/Interventions -- Functional transfer training;ADLs/ADL retraining;Bed mobility;Therapeutic exercises;Functional mobility;Functional activities -- -- -- Row Name 06/02/18 1214 06/02/18 1104 06/02/18 1000 06/02/18 0908 06/02/18 0802 Precautions Precautions -- Fall risk Fall risk Fall risk Fall risk Pain Assessment Pain Score 8 -- -- -- -- Row Name 06/02/18 0711 06/02/18 0639 06/02/18 0603 06/02/18 0515 06/02/18 0430 Precautions Precautions Fall risk -- Fall risk Fall risk Fall risk Pain Assessment Pain Assessment 0-10 -- -- -- -- Pain Score 0 - No pain 7 -- -- -- Cognition Orientation Level Oriented to place;Oriented to situation;Oriented to person -- -- -- -- Row Name 06/02/18 0305 06/02/18 0232 06/02/18 0105 06/02/18 0020 06/01/18 2311 Precautions Precautions Fall risk Fall risk Fall risk Fall risk Fall risk Row Name 06/01/18 2223 06/01/18 2109 06/01/18 1923 06/01/18 1713 06/01/18 0813 Precautions Precautions Fall risk Fall risk Fall risk -- -- Pain Assessment Pain Assessment -- 0-10 -- -- -- Pain Score -- 7 -- 5 - Moderate pain -- Patient's Stated Pain Goal -- 3 -- -- -- Pain Type -- Acute pain -- -- -- Pain Location -- Back (Lumbar) -- -- -- Pain Descriptors -- Aching -- -- -- Pain Frequency -- Constant/continuous -- -- -- Pain Onset -- Ongoing -- -- -- Pain Interventions -- Medication (See MAR) -- -- -- Cognition Orientation Level -- Oriented X4 -- -- Oriented to person Row Name 06/01/18 0720 06/01/18 0700 06/01/18 0623 06/01/18 0537 06/01/18 0503 Precautions Precautions -- Fall risk Fall risk Fall risk Fall risk Pain Assessment Pain Assessment 0-10 -- 0-10 -- -- Pain Score 8 -- 8 -- -- Patient's Stated Pain Goal 3 -- 3 -- -- Pain Type Acute pain -- Acute pain -- -- Pain Location Back (Lumbar) -- Back (Lumbar) -- -- Pain Descriptors Aching -- Aching -- -- Pain Frequency Constant/continuous -- Constant/continuous -- -- Pain Onset Ongoing -- Awakened from sleep -- -- Multiple Pain Sites Four -- -- -- -- Cognition Orientation Level -- -- -- Oriented to person -- Row Name 06/01/18 0403 06/01/18 0359 06/01/18 0345 06/01/18 0325 06/01/18 0250 Precautions Precautions Fall risk -- Fall risk -- Fall risk Pain Assessment Pain Assessment -- -- -- Adult Non-Verbal Pain Scale -- Pain Score -- -- -- 5 - Moderate pain -- Pain Type -- -- -- Acute pain -- Pain Location -- -- -- Back (Lumbar) -- Multiple Pain Sites -- -- -- Four -- Cognition Orientation Level -- Disoriented to place;Disoriented to time;Disoriented to situation -- -- -- Row Name 05/31/18 1950 Pain Assessment Pain Score 8 PT Notes (Notes from 06/01/18 through 06/03/18) No notes of this type exist for this encounter. * Plan of Care - Dot Durant, PT - 06/03/2018 12:59 PM CDT Problem: Transfers Goal: STG - Patient will transfer sit to and from stand With MIN A maintaining spinal precautions. Outcome: Progressing 06/03/18 1259 Transfers Assist Level MOD * Plan of Care - Dot Durant, PT - 06/03/2018 12:59 PM CDT Problem: Transfers Goal: STG - Patient to transfer to and from sit to supine With MIN A maintain spinal precautions. Outcome: Progressing 06/03/18 1258 Transfers Assist Level MOD * Plan of Care - Renetta Vazquez - 06/03/2018 11:58 AM CDT Activity: ??? Mobility will improve Progressing Health Behavior: ??? Understanding of discharge needs will improve Progressing Health Behavior: ??? Ability to manage health-related needs will improve Progressing Lack of Knowledge: ??? Ability to state ways to decrease the risk of falls will improve Progressing Lack of Knowledge: ??? Understanding of ways to prevent future skin breakdown will improve Progressing ??? Ability to identify appropriate dietary choices will improve Progressing Lack of Knowledge: ??? Knowledge on safety and abstaining from self-injurious behavior will increase Progressing ??? Knowledge of therapies/resources will increase Progressing Low Risk for Self-Injurious Behavior: ??? Ability to remain free from injury will improve Progressing Nutritional: ??? Dietary intake will improve Progressing ??? Ability to maintain a balanced intake and output will improve Progressing Safety: ??? Will remain free from falls Progressing ??? Will remain free from injury from falls Progressing ??? Will remain free from falls and injury in home environment Progressing Skin Integrity: ??? Risk for impaired skin integrity will decrease Progressing ??? Ability to demonstrate warm and dry skin will improve Progressing ??? Circulation will improve to fullest extent possible Progressing Goals: Clinical Goals for the Shift: pn control, ambulation Summary: PAUL JUSTICE * ECIN Note - Adwoa Jefferson MSW - 06/03/2018 10:13 AM CDT Patient Information: Comprehensive Nursing Documentation Travel and Exposure Screening Most Recent Value Travel Screening Traveled outside the [place] in the last month? No Filed On: 05/31/2018 010 Exposure Screening Contact with someone with a communicable disease in the last month? No Filed On: 05/31/2018 0103 Symptoms Attending Provider: Bernardino Penny MD Allergies: Niacin Isolation: None Infection: None Code Status: Not on file Ht: 182.9 cm (6') Wt: 77.1 kg (170 lb) Admission Cmt: None Principal Problem: None Intake/Output 06/01/18 07 - 06/02/18 0659 06/02/18 07 - 06/03/18 0659 Total [id number] Total Intake (ml) -- -- -- -- -- Output (ml) 800 -- 1000 -- 1000 Net (ml) -800 -- -1000 -- -1000 Patient Lines/Drains/Airways Status Active Airway / Central venous catheter / Drain / Epidural cathether / Intraosseous line / Peripherally inserted central catheter / Peripheral intravenous line / Arterial line Name: Placement date: Placement time: Site: Days: Peripheral IV 05/31/18 20 G Right Wrist 05/31/18 Wrist 3 Patient Lines/Drains/Airways Status Active Wound / Pressure ulcer / Wren / Negative Pressure Wound None [place] Fall Risk Most Recent Value History of Falling 25 ............filed at 06/02/20181929 Secondary Diagnosis 15 ............filed at 06/02/2018 193 Ambulatory Aids 0 ............filed at 06/02/20181929 Intravenous Therapy/Heparin/Saline Lock 20 ............filed at 06/02/20181929 Gait/Transferring 20 ............filed at 06/02/2018 193 Mental Status 15 ............filed at 06/02/20181929 De Jesus Fall Risk Score 95 ............filed at 06/02/2018 193 Vital Signs 06/02 700 - 06/03 0659 06/03 07 - 06/03 1013 Most Recent Temp (??C) 36.4 - 37 36.4 (97.5) Pulse 58 - 100 72 - 74 74 Resp 18 - 20 18 - 22 22 SpO2 (%) (!)81 - 95 90 - 92 90 BP 133/73 - 164/94 (!) 179/98 (!) 179/98 MAP (mmHg) 104 - 125 Non Violent Restraint Most Recent Value Restraint Alternative Less Restrictive Alternative Comfort Measures filed at 06/03/2018 0550 Restraint Reason Restraint Type (NV) Every 2 Hours Default Flowsheet Data (most recent) Endurance Tests None Default Flowsheet Data (most recent) Balance Tests - 06/02/18 1535 Tinetti Sitting Balance 0 Arises 0 Attempts to Arise 0 Immediate Standing Balance (First 5 Seconds) 0 Standing Balance 0 Nudged 0 Eyes Closed 0 Turned 360 Degrees: Steadiness 0 Turned 360 Degrees: Continuity of Steps 0 Sitting Down 0 Balance Score 0 Nursing Nutrition Feeding Level of Assistance Able to feed self at 06/02 711 Appetite Good at 06/02 711 Nursing Mobility Activity Resting in bed at 08/06 1930 Resting in bed at 08/06 0711 Resting in bed at 06/02 0603 Resting in bed;Sleeping at 06/02 0515 Resting in bed;Sleeping at 06/02 0430 Resting in bed;Sleeping at 06/02 0305 Resting in bed;Sleeping at 06/02 0232 Resting in bed;Sleeping at 06/02 0105 Resting in bed;Sleeping at 06/02 0020 Resting in bed;Sleeping at 06/01 2311 Resting in bed at 06/01 2223 Resting in bed at 06/01 2109 Resting in bed at 06/01 2048 Resting in bed at 06/01 1923 Resting in bed at 06/01 0700 Resting in bed at 06/01 0403 Level of Assistance Moderate assist, patient does 50-74% at 06/02 193 Repositioned Turns self at 06/02 07 Turns self at 06/01 192 Positioning Frequency Able to turn self at 06/02 193 Able to turn self at 06/02 07 Able to turn self at 06/01 192 Able to turn self at 06/01 07 Able to turn self at 06/01 0403 Head of Bed Elevated Self regulated at 06/02 193 Self regulated at 06/02 07 HOB 30 at 06/01 192 HOB 30 at 06/01 0700 HOB 30 at 06/01 0403 Heels/Feet Heels elevated off bed at 06/02 1930 Heels elevated off bed at 06/02 0711 Range of Motion Active at 06/02 0711 Active at 06/01 0700 Active at 06/01 0403 Default Flowsheet Data (last 24 hours) Sitter Documentation Row Name 06/03/18 0550 06/03/18 0430 06/03/18 0330 Sitter Documentation Sitter Not indicated Not indicated Not indicated RN Safety Check No unsafe behaviors observed, safe environment maintained No unsafe behaviors observed, safe environment maintained No unsafe behaviors observed, safe environment maintained Row Name 06/03/18 0216 06/03/18 0120 06/03/18 0035 Sitter Documentation Sitter Not indicated Not indicated Not indicated RN Safety Check No unsafe behaviors observed, safe environment maintained No unsafe behaviors observed, safe environment maintained No unsafe behaviors observed, safe environment maintained Row Name 06/02/18 2315 06/02/18 2210 06/02/18 2140 Sitter Documentation Sitter Not indicated Not indicated Not indicated RN Safety Check No unsafe behaviors observed, safe environment maintained No unsafe behaviors observed, safe environment maintained No unsafe behaviors observed, safe environment maintained Row Name 06/02/18 2025 06/02/18 1930 06/02/18 1818 Sitter Documentation Sitter Not indicated Not indicated Not indicated RN Safety Check No unsafe behaviors observed, safe environment maintained No unsafe behaviors observed, safe environment maintained No unsafe behaviors observed, safe environment maintained Row Name 06/02/18 1703 06/02/18 1621 06/02/18 1537 Sitter Documentation Sitter Not indicated Not indicated Not indicated RN Safety Check No unsafe behaviors observed, safe environment maintained No unsafe behaviors observed, safe environment maintained No unsafe behaviors observed, safe environment maintained Row Name 06/02/18 1412 06/02/18 1336 06/02/18 1231 Sitter Documentation Sitter Not indicated Not indicated Not indicated RN Safety Check No unsafe behaviors observed, safe environment maintained No unsafe behaviors observed, safe environment maintained No unsafe behaviors observed, safe environment maintained Row Name 06/02/18 1104 Sitter Documentation Sitter Not indicated RN Safety Check No unsafe behaviors observed, safe environment maintained , Meds and Admin Active Only All Meds/Most Recent Administrations labetalol (NORMODYNE,TRANDATE) injection 10 mg [[id number]] Ordering Provider: Isaak Edward MD Status: Completed (Past End Date/Time) Ordered On: 05/31/18 0624 Starts/Ends: 05/31/18 0625 - 05/31/18 0640 Dose (Remaining/Total): 10 mg (0/1) Route: intravenous Frequency: Once Rate/Duration: -- / -- Timestamps Action Dose Route Other Information 05/31/18 0640 Given 10 mg intravenous Performed by: Nichol Wade RN acetaminophen (TYLENOL) tablet 1,000 mg [[id number]] Ordering Provider: Cheyenne Gresham MD Status: Completed (Past End Date/Time) Ordered On: 05/31/18 0753 Starts/Ends: 05/31/18 0754 - 05/31/18 0800 Dose (Remaining/Total): 1,000 mg (0/1) Route: oral Frequency: Once Rate/Duration: -- / -- Timestamps Action Dose Route Other Information 05/31/18 0800 Given 1,000 mg oral Performed by: Nichol Wade RN albuterol (PROVENTIL,VENTOLIN) 2.5 mg/0.5 mL nebulizer solution 5 mg [] Ordering Provider: Kimberly Cabrales NP Status: Completed (Past End Date/Time) Ordered On: 05/31/181605 Starts/Ends: 05/31/18 160 - 05/31/181647 Dose (Remaining/Total): 5 mg (0/1) Route: nebulization Frequency: Once (security incident response engineer) Rate/Duration: -- / -- Timestamps Action Dose Route Other Information 05/31/181647 Given 5 mg nebulization Performed by: Aurora Conn, MARY ipratropium (ATROVENT) 0.02 % nebulizer solution 0.5 mg [] Ordering Provider: Kimberly Cabrales NP Status: Completed (Past End Date/Time) Ordered On: 05/31/181605 Starts/Ends: 05/31/181606 - 05/31/181647 Dose (Remaining/Total): 0.5 mg (0/1) Route: nebulization Frequency: Once (security incident response engineer) Rate/Duration: -- / -- Timestamps Action Dose Route Other Information 05/31/181647 Given 0.5 mg nebulization Performed by: Aurora Conn, MARY morphine injection 4 mg [] Ordering Provider: Corazon Slaughter MD Status: Completed (Past End Date/Time) Ordered On: 05/31/182315 Starts/Ends: 05/31/182316 - 05/31/182322 Dose (Remaining/Total): 4 mg (0/1) Route: intravenous Frequency: Once Rate/Duration: -- / -- Timestamps Action Dose Route Other Information 05/31/182322 Given 4 mg intravenous Performed by: Ivelisse Childress RN haloperidol (HALDOL) injection 5 mg [] Ordering Provider: Paul Pires MD Status: Completed (Past End Date/Time) Ordered On: 06/01/18312 Starts/Ends: 06/01/18344 - 06/01/18317 Dose (Remaining/Total): 5 mg (0/1) Route: intramuscular Frequency: Once Rate/Duration: -- / -- Timestamps Action Dose Route / Site Other Information 06/01/18317 Given 5 mg intramuscular Left Deltoid Performed by: Kev Hare RN oxyCODONE (ROXICODONE) tablet 5 mg [] Ordering Provider: Shahnaz Coto MD Status: Dispensed Ordered On: 06/01/18604 Start: 06/01/18604 Dose (Remaining/Total): 5 mg (--/--) Route: oral Frequency: Every 4 hours PRN Rate/Duration: -- / -- Admin Instructions: May repeat in 1 hour if pain is uncontrolled or increasing. Max 2 doses within 1 dosing interval. Timestamps Action Dose Route Other Information 06/03/181000 Given 5 mg oral Performed by: Renetta Vazquez acetaminophen (TYLENOL) tablet 1,000 mg [] Ordering Provider: Shahnaz Coto MD Status: Dispensed Ordered On: 06/01/18604 Start: 06/01/18604 Dose (Remaining/Total): 1,000 mg (--/--) Route: oral Frequency: Every 6 hours PRN Rate/Duration: -- / -- Timestamps Action Dose Route Other Information 06/03/186 Given 1,000 mg oral Performed by: Mony Lee RN senna-docusate (PERICOLACE) 8.6-50 mg per tablet 2 tablet [] Ordering Provider: Antonietta Dunham NP Status: Dispensed Ordered On: 06/01/18642 Start: 06/01/18899 Dose (Remaining/Total): 2 tablet (--/--) Route: oral Frequency: 2 times daily Rate/Duration: -- / -- Timestamps Action Dose Route Other Information 06/03/18954 Given 2 tablet oral Performed by: Renetta Vazquez lidocaine (LIDODERM) 5 % patch 2 patch [] Ordering Provider: Antonietta Dunham NP Status: Dispensed Ordered On: 06/01/18642 Start: 06/01/18899 Dose (Remaining/Total): 2 patch (--/--) Route: transdermal Frequency: Daily Rate/Duration: -- / 12 Hours Admin Instructions: Do not cover the holes on the top side of the patch. Question Answer Comment Apply to affected area:: back -- Timestamps Action Dose / Duration Route / Site Other Information 06/03/18953 Medication Applied 2 patch 12 Hours transdermal Chest Performed by: Renetta Vazquez cyclobenzaprine (FLEXERIL) tablet 5 mg [] Ordering Provider: Antonietta Dunham NP Status: Dispensed Ordered On: 06/01/18642 Start: 06/01/18642 Dose (Remaining/Total): 5 mg (--/--) Route: oral Frequency: 3 times daily PRN Rate/Duration: -- / -- Timestamps Action Dose Route Other Information 06/01/18823 Given 5 mg oral Performed by: Leighann Woodall RN metoprolol (LOPRESSOR) tablet 50 mg [] Ordering Provider: Antonietta Dunham NP Status: Dispensed Ordered On: 06/01/18649 Start: 06/01/18899 Dose (Remaining/Total): 50 mg (--/--) Route: oral Frequency: Daily Rate/Duration: -- / -- Timestamps Action Dose Route Other Information 06/03/18953 Given 50 mg oral Performed by: Renetta Vazquez gabapentin (NEURONTIN) capsule 100 mg [] Ordering Provider: Antonietta Dunham NP Status: Dispensed Ordered On: 06/01/18649 Start: 06/01/18899 Dose (Remaining/Total): 100 mg (--/--) Route: oral Frequency: 3 times daily Rate/Duration: -- / -- Timestamps Action Dose Route Other Information 06/03/18953 Given 100 mg oral Performed by: Renetta Vazquez pantoprazole DR (PROTONIX) extended release tablet 40 mg [] Ordering Provider: Antonietta Dunham NP Status: Dispensed Ordered On: 06/01/18649 Start: 06/01/18899 Dose (Remaining/Total): 40 mg (--/--) Route: oral Frequency: 2 times daily Rate/Duration: -- / -- Admin Instructions: Do not crush or chew Timestamps Action Dose Route Other Information 06/03/18 0954 Given 40 mg oral Performed by: Renetta Vazquez sertraline (ZOLOFT) tablet 50 mg [] Ordering Provider: Antonietta Dunham NP Status: Dispensed Ordered On: 06/01/1850 Start: 06/01/18 0900 Dose (Remaining/Total): 50 mg (--/--) Route: oral Frequency: Daily Rate/Duration: -- / -- Timestamps Action Dose Route Other Information 06/03/1855 Given 50 mg oral Performed by: Rneetta Vazquez simvastatin (ZOCOR) tablet 10 mg [[id number]] Ordering Provider: Antonietta Dunham NP Status: Dispensed Ordered On: 06/01/18649 Start: 06/01/18 2100 Dose (Remaining/Total): 10 mg (--/--) Route: oral Frequency: Nightly Rate/Duration: -- / -- Timestamps Action Dose Route Other Information 06/02/182035 Given 10 mg oral Performed by: Mony Lee RN chlordiazePOXIDE (LIBRIUM) capsule 25 mg [[id number]] Ordering Provider: Shahnaz Coto MD Status: Dispensed Ordered On: 06/01/18805 Starts/Ends: 06/01/18804 - 06/07/18803 Dose (Remaining/Total): 25 mg (--/--) Route: oral Frequency: Every 4 hours PRN Rate/Duration: -- / -- Admin Instructions: HOLD for any status indicating over sedation including the following: drifts off to sleep during conversation, minimal or no response to verbal or physical stimulation, or respiratory rate less than 10 breaths per minute. Re-assess in 4 hours. Timestamps Action Dose Route Other Information 06/01/18 171 Given 25 mg oral Performed by: Leighann Woodall RN chlordiazePOXIDE (LIBRIUM) capsule 25 mg [[id number]] Ordering Provider: Shahnaz Coto MD Status: Dispensed Ordered On: 06/01/18805 Starts/Ends: 06/01/18804 - 06/07/18 08 Dose (Remaining/Total): 25 mg (--/--) Route: oral Frequency: Every 2 hours PRN Rate/Duration: -- / -- Admin Instructions: HOLD for any status indicating over sedation including the following: drifts off to sleep during conversation, minimal or no response to verbal or physical stimulation, or respiratory rate less than 10 breaths per minute. Re-assess in 2 hours. Timestamps Action Dose Route Other Information 06/02/18 1630 Given 25 mg oral Performed by: Ryanne Chicas RN thiamine (VITAMIN B-1) tablet 100 mg [[id number]] Ordering Provider: Shahnaz Coto MD Status: Dispensed Ordered On: 06/01/18808 Starts/Ends: 06/01/18899 - 06/06/18858 Dose (Remaining/Total): 100 mg (2/5) Route: oral Frequency: Daily Rate/Duration: -- / -- Timestamps Action Dose Route Other Information 06/03/18953 Given 100 mg oral Performed by: Renetta Vazquez folic acid (FOLVITE) tablet 1 mg [[id number]] Ordering Provider: Shahnaz Coto MD Status: Dispensed Ordered On: 06/01/18808 Starts/Ends: 06/01/18899 - 06/06/1859 Dose (Remaining/Total): 1 mg (2/5) Route: oral Frequency: Daily Rate/Duration: -- / -- Timestamps Action Dose Route Other Information 06/03/18954 Given 1 mg oral Performed by: Renetta Vazquez multivit myqtrcba-fhpy-MG-calcium (THERA-M) tablet 1 tablet [[id number]] Ordering Provider: Shahnaz Coto MD Status: Dispensed Ordered On: 06/01/18808 Start: 06/01/18899 Dose (Remaining/Total): 1 tablet (--/--) Route: oral Frequency: Daily Rate/Duration: -- / -- Timestamps Action Dose Route Other Information 06/03/18953 Given 1 tablet oral Performed by: Renetta Vazquez losartan (COZAAR) tablet 50 mg [[id number]] Ordering Provider: Justa Clark NP Status: Dispensed Ordered On: 06/02/18910 Start: 06/02/1845 Dose (Remaining/Total): 50 mg (--/--) Route: oral Frequency: Daily Rate/Duration: -- / -- Timestamps Action Dose Route Other Information 06/03/18 0954 Given 50 mg oral Performed by: Renetta Vazquez predniSONE (DELTASONE) tablet 5 mg [[id number]] Ordering Provider: Justa Clark NP Status: Dispensed Ordered On: 06/02/18 0911 Start: 06/02/18 0945 Dose (Remaining/Total): 5 mg (--/--) Route: oral Frequency: Daily Rate/Duration: -- / -- Timestamps Action Dose Route Other Information 06/03/1855 Given 5 mg oral Performed by: Renetta Vazquez enoxaparin (LOVENOX) syringe 30 mg [[id number]] Ordering Provider: Justa Clark NP Status: Dispensed Ordered On: 06/02/18939 Start: 06/02/18 1015 Dose (Remaining/Total): 30 mg (--/--) Route: subcutaneous Frequency: Every 12 hours scheduled Rate/Duration: -- / -- Timestamps Action Dose Route / Site Other Information 06/03/1853 Given 30 mg subcutaneous Left Lower Abdomen Performed by: Renetta Vazquez ipratropium (ATROVENT) 0.02 % nebulizer solution 0.5 mg [[id number]] Ordering Provider: Bernardino Penny MD Status: Dispensed Ordered On: 06/02/181453 Start: 06/02/18 1600 Dose (Remaining/Total): 0.5 mg (--/--) Route: nebulization Frequency: 4 times daily (security incident response engineer) Rate/Duration: -- / -- Timestamps Action Dose Route Other Information 06/03/18 075 Given 0.5 mg nebulization Performed by: Sheridan Mccauley RRT albuterol (PROVENTIL,VENTOLIN) 2.5 mg/0.5 mL nebulizer solution 2.5 mg [[id number]] Ordering Provider: Bernardino Penny MD Status: Dispensed Ordered On: 06/02/181453 Start: 06/02/18 1600 Dose (Remaining/Total): 2.5 mg (--/--) Route: nebulization Frequency: 4 times daily (security incident response engineer) Rate/Duration: -- / -- Timestamps Action Dose Route Other Information 06/03/18 0754 Given 2.5 mg nebulization Performed by: Sheridan Mccauley, FORGE PRESS OPERATOR , OT Eval and Treat Last 72 Hours OT Evaluation Row Name 06/02/18 1535 Chart Reviewed Yes Session Type Evaluation OT Received On 06/02/18 Family/Caregiver Present No Occupational Therapy-Patient Goal Pt. agreeable to POC Precautions Fall risk;Spinal Back Brace in place Yes Type of Home Apartment Home Layout One level Home Access Level entry Bathroom Shower/Tub Walk-in shower with threshold Bathroom Toilet Standard Bathroom Equipment Grab bars in shower Home Mobility Equipment Walker;Cane Additional Comments Pt. stated he has walker and cane and uses both depending on how he is feeling that day. Level of [place] Independent with ADLs and functional transfers;Needs assistance with homemaking Lives With Alone daughter lives near by Receives Help From Family Driving No Prior Function Comments Pt. stated he has a cleaning lady that comes in 5 days a week. Pt stated his daugther helps him set up his medications for the week. Pt. also stated his cleaning lady helps him get in and out of the shower and washes his back for him. Pt. states he can go to the bathroom andget dressed independently. Grooming: Where assessed Chair Grooming: Level of assistance Moderate able to complete components, needs asssit for balance LE Dressing: Level of assistance Maximal LE Dressing: Assistance with Don/doff R sock;Don/doff L sock;Thread RLE into pants;Thread LLE into pants;Thread LLE into underwear;Thread RLE into underwear;Pull up over hips Toileting: Where assessed Bedside Commode Toileting: Level of assistance Total Toileting: Assistance with Clothing management up;Clothing management down;Anterior;Posterior Toilet Transfer From Bed Toilet Transfer Type To Toilet Transfer to Standard bedside commode Toilet Transfer Technique Stand pivot Toilet Transfers Moderate assistance x2 for force production, balance and controlled descent Pain Assessment 0-10 Pain Score 7 Pain Interventions RN Carolina Pearl Arousal/Alertness Appropriate responses to stimuli Orientation Level Oriented to place;Oriented to situation;Oriented to person Following Commands Follows all commands and directions without difficulty Compliance/Behavior Easy to engage Balance Yes Static Sitting-Balance Support Bilateral upper extremity supported Static Sitting-Level of Assistance Close supervision for safety Static Standing-Balance Support Bilateral upper extremity supported Static Standing-Level of Assistance Moderate assistance for balance and safety Bed Mobility Yes Bed Mobility From 1 Supine Bed Mobility Type 1 To and from Bed Mobility to 1 Rolling right;Rolling left Level of Assistance 1 Minimum assistance;Moderate verbal cues for force production and cues for correct log roll technique Bed Mobility From 2 Supine Bed Mobility Type 2 To Bed Mobility to 2 Edge of Bed Level of Assistance 2 Minimum assistance x2 for manuever legs and force production to sit up Transfer Yes gait belt used for OOB mobility Transfer From 1 Commode-standard Transfer Type 1 To Transfer to 1 Chair with arms Technique 1 Stand pivot Transfer Level of Assistance 1 Moderate assistance for balance and controlled desecent RUE Assessment WFL LUE Assessment WFL Comments TLSO brace donned in supine. MOCA not complete this session. If this is the last note, consider this the discharge summary. OT Recommendation Post acute rehab OT Frequency 3-5x/wk Treatment/Interventions Functional transfer training;ADLs/ADL retraining;Bed mobility;Therapeutic exercises;Functional mobility;Functional activities OT - Next Appointment 06/04/18 OT Evaluation Complete Yes OT Treatment No documentation. OT Notes (Notes from 06/01/18 through 06/03/18) 06/02/2018 5:14 PM Progress Notes signed by Annetta Rosario OT 06/02/2018 5:14 PM Progress Notes addendum by Annetta Rosario OT , Vitals Info Only Vital Signs 06/02 07 - 06/03 0659 06/03 700 - 06/03 1013 Most Recent Temp (??C) 36.4 - 37 36.4 (97.5) Pulse 58 - 100 72 - 74 74 Resp 18 - 20 18 - 22 22 SpO2 (%) (!)81 - 95 90 - 92 90 BP 133/73 - 164/94 (!) 179/98 (!) 179/98 MAP (mmHg) 104 - 125 * Plan of Care - Sheridan Mccauley RRT - 06/03/2018 7:57 AM CDT Pt hx of COPD and DM. Pt tolerated duoneb tx well. RT will continue tx as ordered per MD. * Plan of Care - Mony Lee RN - 06/03/2018 2:09 AM CDT Activity: ??? Mobility will improve Progressing Health Behavior: ??? Understanding of discharge needs will improve Progressing Health Behavior: ??? Ability to manage health-related needs will improve Progressing Lack of Knowledge: ??? Ability to state ways to decrease the risk of falls will improve Progressing Lack of Knowledge: ??? Understanding of ways to prevent future skin breakdown will improve Progressing ??? Ability to identify appropriate dietary choices will improve Progressing Lack of Knowledge: ??? Knowledge on safety and abstaining from self-injurious behavior will increase Progressing ??? Knowledge of therapies/resources will increase Progressing Low Risk for Self-Injurious Behavior: ??? Ability to remain free from injury will improve Progressing Nutritional: ??? Dietary intake will improve Progressing ??? Ability to maintain a balanced intake and output will improve Progressing Safety: ??? Will remain free from falls Progressing ??? Will remain free from injury from falls Progressing ??? Will remain free from falls and injury in home environment Progressing Skin Integrity: ??? Risk for impaired skin integrity will decrease Progressing ??? Ability to demonstrate warm and dry skin will improve Progressing ??? Circulation will improve to fullest extent possible Progressing Goals: Clinical Goals for the Shift: pn control, ambulation Summary: * Plan of Care - Sheridan Mccauley RRT - 06/02/2018 12:16 PM CDT Pt hx of COPD, DM. Admitted for broken back. Pt tolerated duoneb tx, but was agitated. Duoneb orderchanged from Albuterol 2 puffs to Albuterol/Atrovent Q4 due to SOB and wheezing. RT will continue to monitor. * Plan of Care - Ryanne Chicas RN - 06/02/2018 8:14 AM CDT Activity: ??? Mobility will improve Progressing Health Behavior: ??? Understanding of discharge needs will improve Progressing Health Behavior: ??? Ability to manage health-related needs will improve Progressing Lack of Knowledge: ??? Ability to state ways to decrease the risk of falls will improve Progressing Lack of Knowledge: ??? Understanding of ways to prevent future skin breakdown will improve Progressing ??? Ability to identify appropriate dietary choices will improve Progressing Lack of Knowledge: ??? Knowledge on safety and abstaining from self-injurious behavior will increase Progressing ??? Knowledge of therapies/resources will increase Progressing Low Risk for Self-Injurious Behavior: ??? Ability to remain free from injury will improve Progressing Nutritional: ??? Dietary intake will improve Progressing ??? Ability to maintain a balanced intake and output will improve Progressing Safety: ??? Will remain free from falls Progressing ??? Will remain free from injury from falls Progressing ??? Will remain free from falls and injury in home environment Progressing Skin Integrity: ??? Risk for impaired skin integrity will decrease Progressing ??? Ability to demonstrate warm and dry skin will improve Progressing ??? Circulation will improve to fullest extent possible Progressing Goals: Clinical Goals for the Shift: pn control, ambulation Summary: Ryanne Chicas RN 06/02/2018 8:14 AM * Plan of Care - Katarina Gregory RN - 06/01/2018 10:09 PM CDT Activity: ??? Mobility will improve Progressing Health Behavior: ??? Understanding of discharge needs will improve Progressing Health Behavior: ??? Ability to manage health-related needs will improve Progressing Lack of Knowledge: ??? Ability to state ways to decrease the risk of falls will improve Progressing Lack of Knowledge: ??? Understanding of ways to prevent future skin breakdown will improve Progressing ??? Ability to identify appropriate dietary choices will improve Progressing Lack of Knowledge: ??? Knowledge on safety and abstaining from self-injurious behavior will increase Progressing ??? Knowledge of therapies/resources will increase Progressing Low Risk for Self-Injurious Behavior: ??? Ability to remain free from injury will improve Progressing Nutritional: ??? Dietary intake will improve Progressing ??? Ability to maintain a balanced intake and output will improve Progressing Safety: ??? Will remain free from falls Progressing ??? Will remain free from injury from falls Progressing ??? Will remain free from falls and injury in home environment Progressing Skin Integrity: ??? Risk for impaired skin integrity will decrease Progressing ??? Ability to demonstrate warm and dry skin will improve Progressing ??? Circulation will improve to fullest extent possible Progressing Goals: Improved cognition, pain controlled. Summary:Progressing toward goals. * Plan of Care - Leighann Woodall RN - 06/01/2018 10:19 AM CDT Goals: Pain and cognition will improve. Summary: Prn pain medication given * Plan of Care - Tiffany Paredes RRT - 06/01/2018 8:14 AM CDT Pt has a history of copd, dm and ETOH. Pt is here at [facility] for a broken back. Pt is agitated. Pt's breath sounds: diminished/ clear. Pt states that he does spirvia at home sometimes. Pt is being changed to albuterol 2.5mg q4 prn and atrovent o.5mg q4 prn at pt's request and COMPUTER SPECIALIST's approval. * Assessment & Plan Note - Paul Pires MD - 06/01/2018 5:03 AM CDT Associated Problem(s): L1 vertebral fracture (CMS/HCC) (HCC) - TLSO when sitting up. Spine MR when able (ordered). GTS admit (pain control, PT/OT, placement) * Assessment & Plan Note - Paul Pires MD - 06/01/2018 5:03 AM CDT Associated Problem(s): T12 burst fracture (HCC) - TLSO when sitting up. Spine MR when able (ordered). GTS admit (pain control, PT/OT, placement) * Assessment & Plan Note - Paul Pires MD - 06/01/2018 4:35 AM CDT Associated Problem(s): Atrial flutter (CMS/HCC) (HCC) -home metop * Plan of Care - Clarisse Abrams RN - 06/01/2018 3:33 AM CDT Goals: Pt will become more orientated than AOx1. Patient will start to let education happen by calming down. Summary: Patient has not gained any orientation while being admitted. Patient has calmed down afterreceiving haldol. * ED Observation Provider Note - Eduarda Judge NP - 06/01/2018 12:30 AM CDT Obs Note Pt with hx CKD, COPD, DM s/p R midfoot amputation who presented after sustaining a mechanical fall two days ago and was found to have T12 nad L1 burst fracture. Pt was transferred to [facility] for further eval. No neuro deficit noted upon initial exam. Ortho evaluated with non-op candidate and will be pain management. TSLO brace fitted and placed. MRI completed, noted to have T12 L1 burst fracture, also noted to have acute pelvis fracture. Orthopedic reevaluated, additional images obtained. Plan changed from discharge home with TLSO brace to admission to [facility] service for PT/OT, pain control. ?? * ED Re-evaluation Note - Tata Sage MD - 05/31/2018 11:09 PM CDT ED Re-evaluation TRANSITION OF CARE: Summary: 72 y.o. male w afib, COPD, CKD, DM p/w falls. T12 burst, L1 end plate fracture w/o neuro deficits. Worsening pain. Likely admit GTS, trauma will need to see. Brace placed, needed MRI- brace off, back to MRI. Pending: Touch base with OBS Dispo: Admit GTS ED Course as of Jun 01 730 Time: 05/31 1451 Comment: MRI unable to complete exam until they know whether brace can be removed By: Kimberly Cabrales NP Time: 05/31 2937 Comment: Spoke with ortho - OK to remove TSLO brace as long as patient remains supine for MRI. Spoke with ACCS Bernardino FUENTES regarding admission for PT/Ot. Accepted and order placed for admission. ACCS to assess pt in ED prior to floor placement By: Kimberly Cabrales NP Time: 05/31 0859 Comment: Called [facility] - Pt is NOT on anticoagulation (Xarelto d/c 02/2017). No longer on Diltiazem as of 02/2018 as patient has not picked this up. See note. By: Kimberly Cabrales NP Time: 05/31 1854 Comment: Acute pelvis fracture per ACCS, pt will need to return to ed for evaluation by orthopedic prior to admission bed. RN aware to notify MRI. By: Eduarda Judge NP Time: 05/31 1856 Comment: Ortho spine return call, will come see pt regarding pelvis fractures, recommend additionalviews AP pelvis, inlet outlet views and CT scan. By: ANIKET Reagan MD Resident 06/01/18729 Cosigned by Chapito Evans MD at 06/01/2018 4:01 PM CDT * ED Observation Provider Note - Eduarda Judge NP - 05/31/2018 6:54 PM CDT Time: 05/31 1854 Comment: Acute pelvis fracture per ACCS, pt will need to return to ed for evaluation by orthopedic prior to admission bed. RN aware to notify MRI. By: Eduarda Judge NP Time: 05/31 1856 Comment: Ortho spine return call, will come see pt regarding pelvis fractures, recommend additionalviews AP pelvis, inlet outlet views and CT scan. By: Eduarda Judge NP * ED Re-evaluation Note - Shabana Bernal MD - 05/31/2018 3:39 PM CDT ED Re-evaluation TRANSITION OF CARE: I, Shabana Bernal MD, am taking signout from Dr. Gresham (Resident) under supervision of Dr. Slaughter (Attending). I have reviewed all pertinent vital signs, allergies, and history available in the chart. Summary: 72 y.o. male w afib, COPD, CKD, DM p/w falls. T12 burst, L1 end plate fracture w/o neuro deficits. Worsening pain. Awaiting ortho imaging. Likely admit GTS, trauma will need to see Pending: MRI, bed Dispo: Admit ED Course as of Jun 01 2 Time: 05/31 1451 Comment: MRI unable to complete exam until they know whether brace can be removed By: Kimberly Cabrales NP Time: 05/31 7984 Comment: Spoke with ortho - OK to remove TSLO brace as long as patient remains supine for MRI. Spoke with ACCS Bernardino FUENTES regarding admission for PT/Ot. Accepted and order placed for admission. ACCS to assess pt in ED prior to floor placement By: Kimberly Cabrales NP Time: 05/31 6815 Comment: Called [facility] - Pt is NOT on anticoagulation (Xarelto d/c 02/2017). No longer on Diltiazem as of 02/2018 as patient has not picked this up. See note. By: Kimberly Cabrales NP Time: 05/31 1854 Comment: Acute pelvis fracture per ACCS, pt will need to return to ed for evaluation by orthopedic prior to admission bed. RN aware to notify MRI. By: Eduarda Judge NP Time: 05/31 1856 Comment: Ortho spine return call, will come see pt regarding pelvis fractures, recommend additionalviews AP pelvis, inlet outlet views and CT scan. By: ANIKET Reagan MD Resident 06/01/18 0002 Cosigned by Corazon Slaughter MD at 06/05/2018 6:54 AM CDT * ED Observation Provider Note - Kimberly Cabrales NP - 05/31/2018 3:09 PM CDT Observation: Pt to Obs per dispo after MRI. Pt returned from MRI without having order completed as his brace was on and the MRI techs/ED staff were unsure whether this brace can be removed for his scan. A call was placed to ortho to ask whether this brace can be removed for imaging purposes. The patient arrived without any signs of distress or obvious discomfort. The patient reports being aware that he has spinal fractures and has had difficulty getting around at home due the pain. Pt requested to use the bedpan during assessment and was noted to be in exquisite pain/discomfort during log roll. Pain is now unresolved with rest. He has very minimal strength to his BLE. Prior to his arrival to the ED, he reports he would be able to walk short distances, but otherwise did not move around a lot. I spoke with the primary ED TCC team who is aware of pt's pain/mobility issues. It was discussed and recommended that he be admitted for pain control, Pt/OR. Orders have been placed for PRN pain medication. Review of Systems Constitutional: Negative for chills, diaphoresis and fever. HENT: Positive for sore throat. Respiratory: Negative for cough and shortness of breath. Cardiovascular: Negative for chest pain, palpitations and leg swelling. Gastrointestinal: Negative for abdominal pain, diarrhea, nausea and vomiting. Musculoskeletal: Positive for back pain. Negative for joint pain and myalgias. Skin: Negative for itching and rash. Neurological: Negative for dizziness, tingling and focal weakness. Physical Exam Constitutional: He is well-developed, well-nourished, and in no distress. No distress. HENT: Head: Normocephalic and atraumatic. Eyes: Conjunctivae are normal. No scleral icterus. Cardiovascular: Normal rate, regular rhythm and normal heart sounds. Exam reveals no friction rub. No murmur heard. Pulmonary/Chest: Effort normal and breath sounds normal. No respiratory distress. He has no wheezes. Musculoskeletal: He exhibits no edema, tenderness or deformity. TSLO brace present; unable to complete spinal palpation given brace placement; able to move extremities and has good BUE strength; minimal BLE Skin: He is not diaphoretic. Plan: Pt with hx dilt (on AC), CKD, COPD, DM s/p R midfoot amputation who presented after sustaining a mechanical fall two days ago and was found to have T12 nad L1 burst fracture. Pt was transferred to [facility] for further eval. No neuro deficit noted upon initial exam. Ortho evaluated with non-op candidate and will be pain management. TSLO brace fitted and placed. MRI pending. - Will likely admit for pain control, PT/OT - Has no family at home so there's social concern for discharge home with limited mobility 2/2 pain - Pain control, PRN - Regular diet as pt is not planning to be taken to the OR - Ortho paged regarding brace placement and MRI - GTS consult * ED Observation Provider Note - Kimberly Cabrales NP - 05/31/2018 2:19 PM CDT Spoke with pt prior to leaving for MRI. Unable to complete assessment fully given the fact he was leaving with transport. No distress noted. Awake/alert/coherent. * ED Re-evaluation Note - Denise Decker MD - 05/31/2018 7:14 AM CDT ED Re-evaluation Signout from Dr. Edward 72yoM PM Afib on dilt, CKD, COPD, IDDM, HTN p/w new spinal fractures - T12 burst, L1 inf endplate.To OBS for TLSO brace, d/c following. 1. Acute midline low back pain, with sciatica presence unspecified 2. Closed stable burst fracture of twelfth thoracic vertebra, initial encounter (CMS/[facility]) 3. Closed fracture dislocation of lumbar spine, initial encounter ([facility]) 4. Accidental fall, initial encounter I, Denise Decker MD, personally examined and evaluated the patient in conjunction with the clinical team/ resident and agree with the assessment, treatment plan and disposition of the patient as recorded by the resident Denise Decker MD 05/31/18 0753 documented in this encounter Plan of Treatment Not on file documented as of this encounter Procedures Procedure Name Priority Date/Time Associated Diagnosis Comments CREATININE Routine 06/05/2018 10:19 PM CDT POCT GLUCOSE DEVICE Routine Gen Lab 06/03/2018 1 1:32 AM CDT POCT GLUCOSE DEVICE Routine Gen Lab 06/03/2018 8 :10 AM CDT XR CHEST PA LATERAL 2 VIEWS IP Routine 06/02/2018 10:57 AM CDT APTT Routine 06/01/2018 9:02 PM CDT PROTIME-INR Routine 06/01/2018 9:02 PM CDT CBC WITHOUT DIFFERENTIAL Routine 06/01/2018 9:02 PM CDT BASIC METABOLIC PANEL Routine 06/01/2018 9:02 PM CDT XR SPINE THORACIC 2 VIEWS ED Urgent/IP Urgent 06/01/2018 12:53 PM CDT XR SPINE LUMBAR 2 OR 3 VIEWS ED Urgent/IP Urgent 06/01/2018 12:45 PM CDT POCT GLUCOSE DEVICE Routine Gen Lab 06/01/2018 1 1:56 AM CDT POCT GLUCOSE DEVICE Routine Gen Lab 06/01/2018 7 :13 AM CDT XR PELVIS 3 OR MORE VIEWS ED Urgent/IP Urgent 05/31/2018 11:[address] PELVIS WO CONTRAST ED Urgent/IP Urgent 05/31/2018 11:42 PM CDT MRI SPINE THORACIC LUMBAR WO CONTRAST ED Urgent/IP Urgent 05/31/2018 7:[address] MR OUTSIDE CONSULT Routine 05/31/2018 7:20 PM CDT XR HIPS BILATERAL W PELVIS 2 VIEW ED 05/31/2018 6:15 PM CDT XR CHEST 1 VIEW ED 05/31/2018 6:[address] CERVICAL THORACIC SPINE WO CONTRAST ED 05/31/2018 4:38 AM CDT XR SPINE LUMBAR 2 OR 3 VIEWS ED 05/31/2018 1:53 AM CDT XR SPINE THORACIC 3 VIEWS ED 05/31/2018 1:53 AM CDT DIFFERENTIAL AUTO STAT 05/31/2018 1:1 8 AM CDT CBC WITH AUTO DIFFERENTIAL STAT 05/31/2018 1:18 AM CDT BASIC METABOLIC PANEL STAT 05/31/2018 1:18 AM CDT documented in this encounter Results * Creatinine (06/05/2018 10:19 PM CDT) Creatinine 1.25 0.80 - 1.30 mg/dL [facility] Blood specimen (specimen) 06/05/2018 10:19 PM CDT 06/05/2018 10:46 PM CDT Prosper [facility] - 06/05/2018 11:11 PM CDT us Bernardino Penny MD LAB BLOOD ORDERABLES Fin al Result Performing Organization Address City/[facility]/ZIP Co de Phone Number [facility] Department [place] [address] * POCT glucose (06/03/2018 11:32 AM CDT) Glucose, POC 169 70 - 199 mg/dL [facility] Blood specimen (specimen) 06/03/2018 11:32 AM CDT 06/03/2018 11:32 AM CDT Narrative [facility] - 06/03/2018 11:33 AM CDT us Bernardino Penny MD LAB POCT ORDERABLES - DE VICE Final Result Performing Organization Address City/[facility]/ZIP Co de Phone Number [facility] [address] [place] [address] * POCT glucose (06/03/2018 8:10 AM CDT) Glucose, POC 117 70 - 199 mg/dL [facility] Blood specimen (specimen) 06/03/2018 8:10 AM CDT 06/03/2018 8:10 AM CDT Narrative [facility] - 06/03/2018 8:14 AM CDT us Bernardino Penny MD LAB POCT ORDERABLES - DE VICE Final Result [facility] Department [place] [address] * XR Chest Pa Lateral 2 Views (06/02/2018 10:57 AM CDT) Anatomical Region Laterality Modality Body, Chest N/A Computed Radiogr aphy 06/02/2018 11:1 9 AM CDT Impressions 06/02/2018 11:19 AM CDT There is a small left pleural effusion with some atelectasis at the left lung base. Otherwise, the lungs appear clear. ??Heart size is normal. Incidentally noted are compression fractures of the thoracic spine. Please see separate thoracic spine MR report for more details. Electronically signed by: Fredy Lagos M.D. Narrative 06/02/2018 11:19 AM CDT EXAMINATION: 2 view chest radiograph Procedure Note Fredy Lagos MD - 06/02/2018 EXAMINATION: 2 view chest radiograph IMPRESSION: There is a small left pleural effusion with some atelectasis at the left lung base. Otherwise, the lungs appear clear. Heart size is normal. Incidentally noted are compression fractures of the thoracic spine. Please see separate thoracic spine MR report for more details. Electronically signed by: Fredy Lagos M.D. Bernardino Penny MD IMG XR PROCEDURES Final Result * Protime-INR (06/01/2018 9:02 PM CDT) PT 11.4 8.5 - 13.0 sec [facility] INR 0.99 0.80 - 1.21 [facility] Comment: Interpretive Data Inpatient therapeutic ranges* Atrial fibrillation ?2.0-3.0 INR Venous thrombo-embolism ?2.0-3.0 INR Bioprosthetic heart valve ?* Mechanical heart valve, bileaflet or tilting disk,aortic position ? 2.0-3.0 INR All other,or bileaflet or tilting disk, in mitral position ? 2.5-3.5 INR *See the pharmacy resource directory (PHRED) for an updated copy of the Tool Book at [email or web address] Current Interpretive Data was last revised 2012. Blood specimen (specimen) 06/01/2018 9:02 PM CDT 06/01/2018 9:52 PM CDT Narrative [facility] - 06/01/2018 10:24 PM CDT us Bernardino Penny MD LAB BLOOD ORDERABLES Fin al Result Performing Organization Address [facility] Co de Phone Number [facility] Department [place] [address] * aPTT (06/01/2018 9:02 PM CDT) [facility] Signature aPTT 36.5 25.0 - 37.0 sec [facility] Comment: Interpretive Data Therapeutic heparin range:60.0 - 94.0 sec based on correlation with therapeutic heparin activity range of 0.3 -0.7 Units/mL. Current interpretive data was last revised on 2011. Blood specimen (specimen) 06/01/2018 9:02 PM CDT 06/01/2018 9:52 PM CDT Narrative [facility] - 06/01/2018 10:24 PM CDT us Bernardino Penny MD LAB BLOOD ORDERABLES Fin al Result Performing Organization Address City/[facility]/ZIP Co de Phone Number [facility] Department [place] [address] * Basic metabolic panel (06/01/2018 9:02 PM CDT) Pathologist [facility] Sodium 138 135 - 145 mmol/L [facility] Potassium, pl 4.0 3.3 - 4.9 mmol/L [facility] Chloride 100 97 - 110 mmol/L [facility] CO2 27 22 - 32 mmol/L [facility] Anion gap 11 2 - 15 mmol/L [facility] BUN 17 8 - 25 mg/dL [facility] Creatinine 1.26 0.80 - 1.30 mg/dL [facility] Glucose 106 70 - 199 mg/dL [facility] Comment: Interpretive Data Fasting glucose >/= 126 mg/dl is diagnostic for diabetes. ?? Fasting is defined as no caloric intake for at least 8 hours. Fasting glucose between 100 mg/dl to 125 mg/dl is diagnostic of prediabetes. In a patient with classic symptoms of hyperglycemia or hyperglycemic crisis, a random glucose >/= 200 mg/dl is diagnostic for diabetes. In the absence of unequivocal hyperglycemia, results should be confirmed by repeat testing. The classification and Diagnosis of Diabetes Diabetes Care 2017;40 (Suppl. 1):S11. Current interpretive data was last revised 2017. Calcium 9.0 8.5 - 10.3 mg/dL [facility] Blood specimen (specimen) 06/01/2018 9:02 PM CDT 06/01/2018 9:55 PM CDT Narrative [facility] - 06/01/2018 10:21 PM CDT us Antonietta Dunham NP LAB BLOOD ORDERABLES Ellen l Result Performing Organization Address [facility]/ZIP Co de Phone Number [facility] Department [place] [address] * (ABNORMAL) CBC without differential (06/01/2018 9:02 PM CDT) Pathologist [facility] WBC 13.4(H) 3.8 - 9.9 K/cumm [facility] Hgb 14.0 13.0 - 17.5 g/dL [facility] Hct 43.5 38.9 - 50.3 % [facility] Plt 236 150 - 400 K/cumm [facility] MPV 9.6 9.1 - 12.3 fL [facility] RBC 4.77 4.30 - 5.80 M/cumm [facility] MCV 91.2 81.3 - 96.4 fL [facility] MCH 29.4 27.1 - 33.3 pg [facility] MCHC 32.2(L) 32.3 - 35.7 g/dL [facility] RDW CV 13.4 11.1 - 14.9 % [facility] RDW SD 44.7 35.7 - 48.1 fL [facility] NRBC abs 0.00 0.00 - 0.01 K/cumm [facility] Blood specimen (specimen) 06/01/2018 9:02 PM CDT 06/01/2018 9:55 PM CDT Narrative [facility] - 06/01/2018 10:05 PM CDT us Antonietta Dunham NP LAB BLOOD ORDERABLES Ellen christian Result [facility] Department [place] [address] * XR Spine Thoracic 2 Views (06/01/2018 12:53 PM CDT) Anatomical Region Laterality Modality Spine N/A Computed Radiogr aphy 06/02/2018 6:35 AM CDT Impressions 06/02/2018 6:35 AM CDT 1. ??Brace, unchanged severely collapsed T12 burst fracture with mild retropulsion and mild L1 compression fracture Electronically signed by: Dwaine Zavala MD, PHD Narrative 06/02/2018 6:35 AM CDT EXAMINATION: Thoracic spine 2 views; lumbar spine 2 views HISTORY: ??T12 burst and L1 fractures FINDINGS: 3 radiographs of the thoracic and 2 radiographs of lumbar spine are compared to prior study from 05/31/2018. ??CT examination of the thoracic and lumbar spine from 05/30/2018 and MRI of the thoracic and lumbar spine from 05/31/2018 were reviewed. ??Patient is in a brace. ??Examination is limited secondary to motion. ??The severely collapsed T12 burst fracture with mild retropulsion and mild L1 compression fracture are again noted. ??Disc spaces appear normal. Right total hip arthroplasty is present. Procedure Note Dwaine Zavala MD PhD - 06/02/2018 EXAMINATION: Thoracic spine 2 views; lumbar spine 2 views HISTORY: T12 burst and L1 fractures FINDINGS: 3 radiographs of the thoracic and 2 radiographs of lumbar spine are compared to prior study from 05/31/2018. CT examination of the thoracic and lumbar spine from 05/30/2018 and MRI of the thoracic and lumbar spine from 05/31/2018 were reviewed. Patient is in a brace. Examination is limited secondary to motion. The severely collapsed T12 burst fracture with mild retropulsion and mild L1 compression fracture are again noted. Disc spaces appear normal. Right total hip arthroplasty is present. IMPRESSION: 1. Brace, unchanged severely collapsed T12 burst fracture with mild retropulsion and mild L1 compression fracture Electronically signed by: Dwaine Zavala MD, PHD Bernardino Penny MD IMG XR PROCEDURES Final Result * XR Spine Lumbar 2 or 3 Views (06/01/2018 12:45 PM CDT) Anatomical Region Laterality Modality Spine N/A Computed Radiogr aphy 06/02/2018 6:35 AM CDT Impressions 06/02/2018 6:35 AM CDT 1. ??Brace, unchanged severely collapsed T12 burst fracture with mild retropulsion and mild L1 compression fracture Electronically signed by: Dwaine Zavala MD, PHD Narrative 06/02/2018 6:35 AM CDT EXAMINATION: Thoracic spine 2 views; lumbar spine 2 views HISTORY: ??T12 burst and L1 fractures FINDINGS: 3 radiographs of the thoracic and 2 radiographs of lumbar spine are compared to prior study from 05/31/2018. ??CT examination of the thoracic and lumbar spine from 05/30/2018 and MRI of the thoracic and lumbar spine from 05/31/2018 were reviewed. ??Patient is in a brace. ??Examination is limited secondary to motion. ??The severely collapsed T12 burst fracture with mild retropulsion and mild L1 compression fracture are again noted. ??Disc spaces appear normal. Right total hip arthroplasty is present. Procedure Note Dwaine Zavala MD PhD - 06/02/2018 EXAMINATION: Thoracic spine 2 views; lumbar spine 2 views HISTORY: T12 burst and L1 fractures FINDINGS: 3 radiographs of the thoracic and 2 radiographs of lumbar spine are compared to prior study from 05/31/2018. CT examination of the thoracic and lumbar spine from 05/30/2018 and MRI of the thoracic and lumbar spine from 05/31/2018 were reviewed. Patient is in a brace. Examination is limited secondary to motion. The severely collapsed T12 burst fracture with mild retropulsion and mild L1 compression fracture are again noted. Disc spaces appear normal. Right total hip arthroplasty is present. IMPRESSION: 1. Brace, unchanged severely collapsed T12 burst fracture with mild retropulsion and mild L1 compression fracture Electronically signed by: Dwaine Zavala MD, PHD us Bernardino Penny MD IMG XR PROCEDURES Final Result * POCT glucose (06/01/2018 11:56 AM CDT) Glucose, POC 123 70 - 199 mg/dL [facility] Blood specimen (specimen) 06/01/2018 11:56 AM CDT 06/01/2018 11:56 AM CDT Narrative [facility] - 06/01/2018 11:58 AM CDT us Bernardino Penny MD LAB POCT ORDERABLES - DE VICE Final Result [facility] Department [place] [address] * POCT glucose (06/01/2018 7:13 AM CDT) Glucose, POC 102 70 - 199 mg/dL [facility] Blood specimen (specimen) 06/01/2018 7:13 AM CDT 06/01/2018 7:13 AM CDT Narrative [facility] - 06/01/2018 7:14 AM CDT us Bernardino Penny MD LAB POCT ORDERABLES - DE VICE Final Result [facility] Department [place] [address] * XR Pelvis 3 or More Views (05/31/2018 11:51 PM CDT) Anatomical Region Laterality Modality Pelvis, Body N/A Computed Radiogr aphy 06/01/2018 12:1 0 AM CDT Impressions 06/01/2018 9:22 AM CDT 1. ??Heterotopic ossification again noted adjacent to the left greater trochanter with some lucent lines which are well corticated and indeterminant for fracture. ??These could represent sequela of old traumatic injury. ??These will better evaluated on concurrent CT. Electronically signed by: Luke Boston M.D. Narrative 06/01/2018 9:22 AM CDT EXAMINATION: Pelvis 3 or more views HISTORY: Concern for pelvis fracture FINDINGS: Inlet, outlet, AP and bilateral oblique views of the pelvis are submitted for interpretation with comparison to pelvis radiograph from earlier today. There is a right-sided total hip arthroplasty which is unchanged. Again seen is the heterotopic ossification adjacent to the left greater trochanter. ??Multiple lucent lines are noted inside the heterotopic ossification which are again indeterminate on radiograph. There is no other fracture of the pelvis. ??The lumbar spine fractures since examination. 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 Procedure Note Luke Boston MD - 06/01/2018 EXAMINATION: Pelvis 3 or more views HISTORY: Concern for pelvis fracture FINDINGS: Inlet, outlet, AP and bilateral oblique views of the pelvis are submitted for interpretation with comparison to pelvis radiograph from earlier today. There is a right-sided total hip arthroplasty which is unchanged. Again seen is the heterotopic ossification adjacent to the left greater trochanter. Multiple lucent lines are noted inside the heterotopic ossification which are again indeterminate on radiograph. There is no other fracture of the pelvis. The lumbar spine fractures since examination. 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 IMPRESSION: 1. Heterotopic ossification again noted adjacent to the left greater trochanter with some lucent lines which are well corticated and indeterminant for fracture. These could represent sequela of old traumatic injury. These will better evaluated on concurrent CT. Electronically signed by: Luke Boston M.D. us Eduarda Judge COMPUTER SPECIALIST IMG XR PROCEDURES Fi nal Result * CT Pelvis WO Contrast (05/31/2018 11:42 PM CDT) Anatomical Region Laterality Modality Body N/A Computed Tomogra phy 06/01/2018 12:1 1 AM CDT Impressions 06/01/2018 9:15 AM CDT 1. Small ossific fragments seen adjacent to the left greater trochanter are likely well-corticated, and are favored to represent heterotopic ossification or sequela of old trauma. ??No definite acute fracture is identified. 2. 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 Electronically signed by: Luke Boston M.D. Narrative 06/01/2018 9:15 AM CDT EXAMINATION: ??Computed tomography of the pelvis without intravenous contrast HISTORY: 72-year-old man presenting after fall, with concern for left hip fracture TECHNIQUE: Computed tomography of the pelvis was performed without intravenous contrast. COMPARISON: CT of the lumbar spine obtained at an outside hospital on 05/30/2018 FINDINGS: Postsurgical changes of total right hip arthroplasty are seen. ?? Heterotopic ossification is seen along the right greater trochanter. Interval osseous bodies are also seen adjacent to the left greater trochanter. ??These appear to be well corticated, and may represent ectopic ossification or sequela of an old fracture. ??No definite acute fracture is identified. 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 ??No joint effusion is seen. ??There is no soft tissue swelling. ??The urinary bladder and visualized portions of the bowel are normal. Calcification of the seminal vesicles is seen. Procedure Note Luke Boston MD - 06/01/2018 EXAMINATION: Computed tomography of the pelvis without intravenous contrast HISTORY: 72-year-old man presenting after fall, with concern for left hip fracture TECHNIQUE: Computed tomography of the pelvis was performed without intravenous contrast. COMPARISON: CT of the lumbar spine obtained at an outside hospital on 05/30/2018 FINDINGS: Postsurgical changes of total right hip arthroplasty are seen. Heterotopic ossification is seen along the right greater trochanter. Interval osseous bodies are also seen adjacent to the left greater trochanter. These appear to be well corticated, and may represent ectopic ossification or sequela of an old fracture. No definite acute fracture is identified. 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 No joint effusion is seen. There is no soft tissue swelling. The urinary bladder and visualized portions of the bowel are normal. Calcification of the seminal vesicles is seen. IMPRESSION: 1. Small ossific fragments seen adjacent to the left greater trochanter are likely well-corticated, and are favored to represent heterotopic ossification or sequela of old trauma. No definite acute fracture is identified. 2. 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 Electronically signed by: Luke Boston M.D. Eduarda Judge NP IMG CT PROCEDURES Fi nal Result * MRI Spine Thoracic and Lumbar WO Contrast (05/31/2018 7:34 PM CDT) Anatomical Region Laterality Modality Spine N/A Magnetic Resonan ce 06/01/2018 11:3 6 AM CDT Impressions 06/01/2018 11:49 AM CDT 1. T12 burst fracture with mild retropulsion exhibits mild to moderate spinal canal narrowing at this level. Suboptimal evaluation of the cord at this level due to motion degradation. 2. L1 fracture without significant vertebral body height loss or compromise of the spinal canal at this level. Electronically signed by: Annabelle Canseco M.D. Narrative 06/01/2018 11:49 AM CDT EXAMINATION: Magnetic resonance imaging (MRI) of the thoracic spine without contrast Magnetic resonance imaging (MRI) of the lumbar spine without contrast HISTORY: Fracture. TECHNIQUE: Multiplanar multi-weighted MRI of the thoracic and lumbar spine was performed without ??intravenous contrast using the standard spine protocols. COMPARISON: ??CT from 05/31/2018. FINDINGS: Study is significantly motion degraded. THORACIC SPINE: There is a scoliotic curvature of the thoracic spine. Redemonstration of the T12 burst fracture, as seen on prior imaging. This exhibits markedly decreased vertebral body height with mild retropulsion into the spinal canal. Axial images are severely motion degraded but findings appear to cause mild to moderate spinal canal narrowing at this level. There is a small amount of prevertebral hematoma. ??The T9 vertebral body exhibits abnormally increased T2 status or signal internally without evidence of significant vertebral body height loss. Evaluation of the cord is suboptimal due to motion artifact. Degenerative marrow changes noted at multiple levels. Multilevel mild degenerative changes are noted at the other levels causing areas of mild spinal canal narrowing. Multilevel disc desiccation is present. No evidence of epidural collections. No evidence of abnormal signal involving vertebral ligamentous structures. LUMBAR SPINE: Abnormal marrow signal is visualized within the L1 vertebral body has with deformity of the superior and inferior endplates, related to fracture as seen on prior CT examination. No evidence of retropulsion at the level of L1. The remaining vertebrae of the lumbar spine do not exhibit features to suggest additional fractures of the lumbar spine. Heterogeneous marrow signal related to areas of fatty marrow replacement and degenerative endplate changes are noted. L2-L5 vertebral body heights are maintained. No evidence of abnormal signal involving vertebral ligamentous structures. Multilevel disc desiccation is noted. There are are multilevel mild degenerative changes without evidence of significant spinal canal narrowing within the lumbar spine. This is most prominent at L5-S1 where there is mild bilateral neural foraminal and mild spinal canal narrowing. Procedure Note Annabelle Canseco MD - 06/01/2018 EXAMINATION: Magnetic resonance imaging (MRI) of the thoracic spine without contrast Magnetic resonance imaging (MRI) of the lumbar spine without contrast HISTORY: Fracture. TECHNIQUE: Multiplanar multi-weighted MRI of the thoracic and lumbar spine was performed without intravenous contrast using the standard spine protocols. COMPARISON: CT from 05/31/2018. FINDINGS: Study is significantly motion degraded. THORACIC SPINE: There is a scoliotic curvature of the thoracic spine. Redemonstration of the T12 burst fracture, as seen on prior imaging. This exhibits markedly decreased vertebral body height with mild retropulsion into the spinal canal. Axial images are severely motion degraded but findings appear to cause mild to moderate spinal canal narrowing at this level. There is a small amount of prevertebral hematoma. The T9 vertebral body exhibits abnormally increased T2 status or signal internally without evidence of significant vertebral body height loss. Evaluation of the cord is suboptimal due to motion artifact. Degenerative marrow changes noted at multiple levels. Multilevel mild degenerative changes are noted at the other levels causing areas of mild spinal canal narrowing. Multilevel disc desiccation is present. No evidence of epidural collections. No evidence of abnormal signal involving vertebral ligamentous structures. LUMBAR SPINE: Abnormal marrow signal is visualized within the L1 vertebral body has with deformity of the superior and inferior endplates, related to fracture as seen on prior CT examination. No evidence of retropulsion at the level of L1. The remaining vertebrae of the lumbar spine do not exhibit features to suggest additional fractures of the lumbar spine. Heterogeneous marrow signal related to areas of fatty marrow replacement and degenerative endplate changes are noted. L2-L5 vertebral body heights are maintained. No evidence of abnormal signal involving vertebral ligamentous structures. Multilevel disc desiccation is noted. There are are multilevel mild degenerative changes without evidence of significant spinal canal narrowing within the lumbar spine. This is most prominent at L5-S1 where there is mild bilateral neural foraminal and mild spinal canal narrowing. IMPRESSION: 1. T12 burst fracture with mild retropulsion exhibits mild to moderate spinal canal narrowing at this level. Suboptimal evaluation of the cord at this level due to motion degradation. 2. L1 fracture without significant vertebral body height loss or compromise of the spinal canal at this level. Electronically signed by: Annabelle Canseco M.D. Cheyenne Gresham MD IMG MRI PROCEDURES Final Result * Neuro CT MR Outside Consult (05/31/2018 [...] images may or may not represent the [employer] source data set and thus may contain changes that may lower the accuracy of this second-opinion interpretation. Electronically signed by: Annabelle Canseco M.D. Narrative 06/01/2018 11:46 AM CDT EXAMINATION: RADIOLOGY CONSULTATION ON OUTSIDE IMAGING STUDY STUDY INITIALLY PERFORMED: 05/30/2018 at [facility]. TYPE OF STUDY: Multiple computed tomographic [...] IMAGING STUDY STUDY INITIALLY PERFORMED: 05/30/2018 at [facility]. TYPE OF STUDY: Multiple computed tomographic [...] images may or may not represent the [employer] source data set and thus may contain changes that may lower the accuracy of this second-opinion interpretation. Electronically signed by: Annabelle Canseco M.D. us Isaak Edward MD IMG CT PROCEDURES Final Re sult * XR Hips Bilateral W Pelvis 2 View (05/31/2018 6:15 PM CDT) Anatomical Region Laterality Modality Lower Extremities, Hip, Pelvis Bilateral C omputed Radiography 05/31/2018 6:46 PM CDT Impressions 06/01/2018 9:20 AM CDT 1. ??Small left pleural effusion. 2. ??Heterotopic ossification versus left greater trochanter fracture. If left hip pain is present, recommend further evaluation with CT or MR of the left hip. Electronically signed by: Luke Boston M.D. Narrative 06/01/2018 9:20 AM CDT EXAMINATION: 1. Chest 1 view 2. Hips bilateral with pelvis 2 views HISTORY: Trauma FINDINGS: No prior study is available for comparison. Single view the chest is submitted without comparison. ??No pneumothorax or pulmonary edema. ??There is blunting of the left costophrenic angle likely representing a small pleural effusion. ??The left hemidiaphragm is elevated. ??Streaky opacities are visualized within the left lung base likely representing atelectasis. ??The cardiomediastinal silhouette is within normal limits. 5 views of the hips and pelvis are submitted. ??A right total hip arthroplasty is noted. ??The bilateral hips are normally aligned. Heterotopic ossification is visualized superior to the right greater trochanter. ??Possible osseous fragments visualized adjacent to the left greater trochanter without cortication suggesting this may represent an acute fracture. ??If patient has left hip pain, recommend further evaluation with CT or MR. Procedure Note Luke Boston MD - 06/01/2018 EXAMINATION: 1. Chest 1 view 2. Hips bilateral with pelvis 2 views HISTORY: Trauma FINDINGS: No prior study is available for comparison. Single view the chest is submitted without comparison. No pneumothorax or pulmonary edema. There is blunting of the left costophrenic angle likely representing a small pleural effusion. The left hemidiaphragm is elevated. Streaky opacities are visualized within the left lung base likely representing atelectasis. The cardiomediastinal silhouette is within normal limits. 5 views of the hips and pelvis are submitted. A right total hip arthroplasty is noted. The bilateral hips are normally aligned. Heterotopic ossification is visualized superior to the right greater trochanter. Possible osseous fragments visualized adjacent to the left greater trochanter without cortication suggesting this may represent an acute fracture. If patient has left hip pain, recommend further evaluation with CT or MR. IMPRESSION: 1. Small left pleural effusion. 2. Heterotopic ossification versus left greater trochanter fracture. If left hip pain is present, recommend further evaluation with CT or MR of the left hip. Electronically signed by: Luke Boston M.D. Kimberly Cabrales COMPUTER SPECIALIST IMG XR PROCEDURES Final Resul t * XR Chest 1 Vw (05/31/2018 6:14 PM CDT) Anatomical Region Laterality Modality Body, Chest N/A Computed Radiogr aphy 05/31/2018 6:46 PM CDT Impressions 06/01/2018 9:20 AM CDT 1. ??Small left pleural effusion. 2. ??Heterotopic ossification versus left greater trochanter fracture. If left hip pain is present, recommend further evaluation with CT or MR of the left hip. Electronically signed by: Luke Boston M.D. Narrative 06/01/2018 9:20 AM CDT EXAMINATION: 1. Chest 1 view 2. Hips bilateral with pelvis 2 views HISTORY: Trauma FINDINGS: No prior study is available for comparison. Single view the chest is submitted without comparison. ??No pneumothorax or pulmonary edema. ??There is blunting of the left costophrenic angle likely representing a small pleural effusion. ??The left hemidiaphragm is elevated. ??Streaky opacities are visualized within the left lung base likely representing atelectasis. ??The cardiomediastinal silhouette is within normal limits. 5 views of the hips and pelvis are submitted. ??A right total hip arthroplasty is noted. ??The bilateral hips are normally aligned. Heterotopic ossification is visualized superior to the right greater trochanter. ??Possible osseous fragments visualized adjacent to the left greater trochanter without cortication suggesting this may represent an acute fracture. ??If patient has left hip pain, recommend further evaluation with CT or MR. Procedure Note Luke Boston MD - 06/01/2018 EXAMINATION: 1. Chest 1 view 2. Hips bilateral with pelvis 2 views HISTORY: Trauma FINDINGS: No prior study is available for comparison. Single view the chest is submitted without comparison. No pneumothorax or pulmonary edema. There is blunting of the left costophrenic angle likely representing a small pleural effusion. The left hemidiaphragm is elevated. Streaky opacities are visualized within the left lung base likely representing atelectasis. The cardiomediastinal silhouette is within normal limits. 5 views of the hips and pelvis are submitted. A right total hip arthroplasty is noted. The bilateral hips are normally aligned. Heterotopic ossification is visualized superior to the right greater trochanter. Possible osseous fragments visualized adjacent to the left greater trochanter without cortication suggesting this may represent an acute fracture. If patient has left hip pain, recommend further evaluation with CT or MR. IMPRESSION: 1. Small left pleural effusion. 2. Heterotopic ossification versus left greater trochanter fracture. If left hip pain is present, recommend further evaluation with CT or MR of the left hip. Electronically signed by: Luke Boston M.D. Kimberly Keron ANIKET IMG XR PROCEDURES Final Resul t * CT Cervical Thoracic Spine WO Contrast (05/31/2018 4:38 AM CDT) Anatomical Region Laterality Modality Spine N/A Computed Tomogra phy 05/31/2018 5:49 AM CDT Impressions 05/31/2018 9:16 PM CDT 1. ??T12 burst fracture with mild retropulsion and focal kyphosis. 2. ??Mild left L1 inferior vertebral body fracture. 3. ??Severely limited exam of the cervical spine due to patient motion. ??If there is concern for cervical spine fracture, this exam should be repeated. Electronically signed by: Annabelle Canseco M.D. Narrative 05/31/2018 9:16 PM CDT EXAMINATION: CT of the cervical spine without contrast CT of the thoracic spine without contrast HISTORY: Trauma. TECHNIQUE: Computed tomography of the cervical spine was performed without contrast according to standard protocol. COMPARISON: None available FINDINGS: Evaluation of the cervical spine is severely limited by patient motion. ??There is mild levocurvature of the lower thoracic spine. There is multilevel degenerative disc disease. ??Vertebral body heights are normal. ??No fracture is identified. Thoracic spine: There is mild thoracic dextroscoliosis. ??There is a burst fracture of T12 with mild retropulsion into the central canal. There is a mild compression fracture of the left L1 vertebral body inferior endplate. There is rounded atelectasis at the right lung base. Procedure Note Annabelle Canseco MD - 05/31/2018 EXAMINATION: CT of the cervical spine without contrast CT of the thoracic spine without contrast HISTORY: Trauma. TECHNIQUE: Computed tomography of the cervical spine was performed without contrast according to standard protocol. COMPARISON: None available FINDINGS: Evaluation of the cervical spine is severely limited by patient motion. There is mild levocurvature of the lower thoracic spine. There is multilevel degenerative disc disease. Vertebral body heights are normal. No fracture is identified. Thoracic spine: There is mild thoracic dextroscoliosis. There is a burst fracture of T12 with mild retropulsion into the central canal. There is a mild compression fracture of the left L1 vertebral body inferior endplate. There is rounded atelectasis at the right lung base. IMPRESSION: 1. T12 burst fracture with mild retropulsion and focal kyphosis. 2. Mild left L1 inferior vertebral body fracture. 3. Severely limited exam of the cervical spine due to patient motion. If there is concern for cervical spine fracture, this exam should be repeated. Electronically signed by: Annabelle Canseco M.D. us Isaak Edward MD IMG CT PROCEDURES Final Re sult * XR Spine Lumbar 2 or 3 Views (05/31/2018 1:53 AM CDT) Anatomical Region Laterality Modality Spine N/A Computed Radiogr aphy 05/31/2018 2:19 AM CDT Impressions 05/31/2018 9:59 AM CDT 1. ??Burst fracture of T12 with mild retropulsion into the spinal canal. ??Compression fracture of T9 of unknown acuity. 2. ??Reported L1 burst fracture is not well-visualized. There is mild height loss of L1. Recommend correlation with outside imaging if available. Electronically signed by: Bernardino Luevano M.D., MPH Narrative 05/31/2018 9:59 AM CDT EXAMINATION: 1. Thoracic spine 3 views 2. Lumbar spine 2 or 3 views HISTORY: 72-year-old male status post fall 2 days ago with T12 and L1 burst fracture FINDINGS: No prior study is available for comparison. Thoracic spine: 3 views of the thoracic spine are submitted for interpretation. ??There is a burst fracture of the T12 vertebral body with mild retropulsion into the spinal canal. ??There is a compression fracture of T9 is well. ??There is dextrocurvature of the thoracic spine. ?? Lumbar spine: 3 views of the lumbar spine are submitted for interpretation. ??Total right hip arthroplasty is in place. 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 ??Reported burst fracture of L1 is not well visualized. There is mild height loss of L1. There is atherosclerosis of the abdominal aorta. ??The lumbar vertebral bodies appear normal. ??The intervertebral disc spaces are normal. Procedure Note Bernardino Luevano MD - 05/31/2018 EXAMINATION: 1. Thoracic spine 3 views 2. Lumbar spine 2 or 3 views HISTORY: 72-year-old male status post fall 2 days ago with T12 and L1 burst fracture FINDINGS: No prior study is available for comparison. Thoracic spine: 3 views of the thoracic spine are submitted for interpretation. There is a burst fracture of the T12 vertebral body with mild retropulsion into the spinal canal. There is a compression fracture of T9 is well. There is dextrocurvature of the thoracic spine. Lumbar spine: 3 views of the lumbar spine are submitted for interpretation. Total right hip arthroplasty is in place. 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 Reported burst fracture of L1 is not well visualized. There is mild height loss of L1. There is atherosclerosis of the abdominal aorta. The lumbar vertebral bodies appear normal. The intervertebral disc spaces are normal. IMPRESSION: 1. Burst fracture of T12 with mild retropulsion into the spinal canal. Compression fracture of T9 of unknown acuity. 2. Reported L1 burst fracture is not well-visualized. There is mild height loss of L1. Recommend correlation with outside imaging if available. Electronically signed by: Bernardino Luevano M.D., MPH us Isaak Edward MD IMG XR PROCEDURES Final Re sult * XR Spine Thoracic 3 Vw (05/31/2018 1:53 AM CDT) Anatomical Region Laterality Modality Spine N/A Computed Radiogr aphy 05/31/2018 2:19 AM CDT Impressions 05/31/2018 9:59 AM CDT 1. ??Burst fracture of T12 with mild retropulsion into the spinal canal. ??Compression fracture of T9 of unknown acuity. 2. ??Reported L1 burst fracture is not well-visualized. There is mild height loss of L1. Recommend correlation with outside imaging if available. Electronically signed by: Bernardino Luevano M.D., MPH Narrative 05/31/2018 9:59 AM CDT EXAMINATION: 1. Thoracic spine 3 views 2. Lumbar spine 2 or 3 views HISTORY: 72-year-old male status post fall 2 days ago with T12 and L1 burst fracture FINDINGS: No prior study is available for comparison. Thoracic spine: 3 views of the thoracic spine are submitted for interpretation. ??There is a burst fracture of the T12 vertebral body with mild retropulsion into the spinal canal. ??There is a compression fracture of T9 is well. ??There is dextrocurvature of the thoracic spine. ?? Lumbar spine: 3 views of the lumbar spine are submitted for interpretation. ??Total right hip arthroplasty is in place. 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 ??Reported burst fracture of L1 is not well visualized. There is mild height loss of L1. There is atherosclerosis of the abdominal aorta. ??The lumbar vertebral bodies appear normal. ??The intervertebral disc spaces are normal. Procedure Note Bernardino Luevano MD - 05/31/2018 EXAMINATION: 1. Thoracic spine 3 views 2. Lumbar spine 2 or 3 views HISTORY: 72-year-old male status post fall 2 days ago with T12 and L1 burst fracture FINDINGS: No prior study is available for comparison. Thoracic spine: 3 views of the thoracic spine are submitted for interpretation. There is a burst fracture of the T12 vertebral body with mild retropulsion into the spinal canal. There is a compression fracture of T9 is well. There is dextrocurvature of the thoracic spine. Lumbar spine: 3 views of the lumbar spine are submitted for interpretation. Total right hip arthroplasty is in place. 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 Reported burst fracture of L1 is not well visualized. There is mild height loss of L1. There is atherosclerosis of the abdominal aorta. The lumbar vertebral bodies appear normal. The intervertebral disc spaces are normal. IMPRESSION: 1. Burst fracture of T12 with mild retropulsion into the spinal canal. Compression fracture of T9 of unknown acuity. 2. Reported L1 burst fracture is not well-visualized. There is mild height loss of L1. Recommend correlation with outside imaging if available. Electronically signed by: Bernardino Luevano M.D., MPH us Isaak Edward MD IMG XR PROCEDURES Final Re sult * (ABNORMAL) Differential, auto (05/31/2018 1:18 AM CDT) Neutrophil abs 10.0(H) 1.7 - 6.5 K/cumm [facility] Imm gran abs 0.0 0.0 - 0.1 K/cumm [facility] Lymphocyte abs 1.4 0.8 - 3.3 K/cumm [facility] Monocyte abs 1.1(H) 0.2 - 0.8 K/cumm [facility] Eosinophil abs 0.1 0.0 - 0.5 K/cumm [facility] Basophil abs 0.0 0.0 - 0.1 K/cumm [facility] Neutrophil pct 78.5 % [facility] Comment: Interpretive Data Percent cell count reference ranges are not reported, since discordance with absolute values may lead to misinterpretation of CBC data. Current Interpretive Data was last revised on 2018. Imm gran pct 0.4 % [facility] Comment: Interpretive Data Percent cell count reference ranges are not reported, since discordance with absolute values may lead to misinterpretation of CBC data. Current Interpretive Data was last revised on 2018. Lymphocyte pct 10.8 % [facility] Comment: Interpretive Data Percent cell count reference ranges are not reported, since discordance with absolute values may lead to misinterpretation of CBC data. Current Interpretive Data was last revised on 2018. Monocyte pct 8.8 % [facility] Comment: Interpretive Data Percent cell count reference ranges are not reported, since discordance with absolute values may lead to misinterpretation of CBC data. Current Interpretive Data was last revised on 2018. Eosinophil pct 1.1 % [facility] Comment: Interpretive Data Percent cell count reference ranges are not reported, since discordance with absolute values may lead to misinterpretation of CBC data. Current Interpretive Data was last revised on 2018. Basophil pct 0.4 % [facility] Comment: Interpretive Data Percent cell count reference ranges are not reported, since discordance with absolute values may lead to misinterpretation of CBC data. Current Interpretive Data was last revised on 2018. Blood specimen (specimen) 05/31/2018 1:18 AM CDT 05/31/2018 2:43 AM CDT Narrative [facility] - 05/31/2018 2:51 AM CDT us Isaak Edward MD LAB BLOOD ORDERABLES Final Result [facility] Department [place] [address] * (ABNORMAL) Basic metabolic panel (05/31/2018 1:18 AM CDT) Sodium 133(L) 135 - 145 mmol/L [facility] Potassium, pl 4.1 3.3 - 4.9 mmol/L [facility] Comment:Hemolyzed; (++); pot assium value may be falsely elevated by as much as 0.3 - 0.5 mmol/L. Suggest redraw and reanalysis. Chloride 96(L) 97 - 110 mmol/L [facility] CO2 23 22 - 32 mmol/L [facility] Anion gap 14 2 - 15 mmol/L [facility] BUN 11 8 - 25 mg/dL [facility] Creatinine 0.96 0.80 - 1.30 mg/dL [facility] Glucose 76 70 - 199 mg/dL [facility] Comment: Interpretive Data Fasting glucose >/= 126 mg/dl is diagnostic for diabetes. ?? Fasting is defined as no caloric intake for at least 8 hours. Fasting glucose between 100 mg/dl to 125 mg/dl is diagnostic of prediabetes. In a patient with classic symptoms of hyperglycemia or hyperglycemic crisis, a random glucose >/= 200 mg/dl is diagnostic for diabetes. In the absence of unequivocal hyperglycemia, results should be confirmed by repeat testing. The classification and Diagnosis of Diabetes Diabetes Care 2017;40 (Suppl. 1):S11. Current interpretive data was last revised 2017. Calcium 8.7 8.5 - 10.3 mg/dL [facility] Blood specimen (specimen) 05/31/2018 1:18 AM CDT 05/31/2018 2:43 AM CDT Narrative [facility] - 05/31/2018 3:11 AM CDT [facility] COLLECTION LOCATION IS [facility] [id number] us Isaak Edward MD LAB BLOOD ORDERABLES Final Result [facility] Department [place] [address] * (ABNORMAL) CBC with auto differential (05/31/2018 1:18 AM CDT) WBC 12.8(H) 3.8 - 9.9 K/cumm [facility] Hgb 13.0 13.0 - 17.5 g/dL [facility] Hct 38.5(L) 38.9 - 50.3 % [facility] Plt 196 150 - 400 K/cumm [facility] MPV 10.1 9.1 - 12.3 fL [facility] RBC 4.38 4.30 - 5.80 M/cumm [facility] MCV 87.9 81.3 - 96.4 fL [facility] MCH 29.7 27.1 - 33.3 pg [facility] MCHC 33.8 32.3 - 35.7 g/dL [facility] RDW CV 13.0 11.1 - 14.9 % [facility] RDW SD 42.1 35.7 - 48.1 fL [facility] NRBC abs 0.00 0.00 - 0.01 K/cumm [facility] Blood specimen (specimen) 05/31/2018 1:18 AM CDT 05/31/2018 2:43 AM CDT Narrative [facility] - 05/31/2018 2:51 AM CDT [facility] COLLECTION LOCATION IS [facility] CC-[id number] us Isaak Edward MD LAB BLOOD ORDERABLES Final Result [facility] Department [place] [address] documented in this encounter Visit Diagnoses Diagnosis Acute midline low back pain, with sciatica presence unspecified- Primary Closed stable burst fracture of twelfth thoracic vertebra, initial encounter ([facility]) Closed fracture dislocation of lumbar spine, initial encounter ([facility]) Accidental fall, initial encounter Atrial flutter ([facility]) ([facility] Atrial flutter T12 burst fracture ([facility] L1 vertebral fracture ([facility]) ([facility]) ETOH abuse Nondependent alcohol abuse, unspecified drinking behavior COPD (chronic obstructive pulmonary disease) ([facility]) Chronic airway obstruction, not elsewhere classified Essential hypertension, benign On home oxygen therapy Dependence on supplemental oxygen Neuropathy ([facility]) Mononeuritis of unspecified site Major depressive disorder Major depressive disorder, single episode, unspecified Chronic renal failure Chronic kidney disease, unspecified Anxiety Anxiety state, unspecified Shortness of breath Falls frequently Personal history of fall Pleural effusion Unspecified pleural effusion Heterotopic ossification Acute pain due to trauma Therapy Unspecified rehabilitation procedure Leukocytosis Leukocytosis, unspecified Atelectasis Pulmonary collapse documented in this encounter Administered Medications Inactive Administered Medications - up to 3 most recent administrations Medication Order MAR Action Action Date Dose Rate Site acetaminophen (TYLENOL) tablet 1,000 mg 1,000 mg, oral, Once, On 05/31/18 at 0754, For 1 dose Given 05/31/2018 8:00 AM CDT 1,000 mg acetaminophen (TYLENOL) tablet 1,000 mg 1,000 mg, oral, Every 6 hours PRN, 1st line for pain, Starting on 06/01/18 at 0605 Given 06/06/2018 8:20 AM CDT 1,000 mg Given 06/05/2018 2:20 PM CDT 1,000 mg Given 06/05/2018 8:13 AM CDT 1,000 mg albuterol (PROVENTIL,VENTOLIN) 2.5 mg/0.5 mL nebulizer solution 2.5 mg 2.5 mg, nebulization, Every 4 hours (security incident response engineer), First dose (after last modification) on 06/02/18 at 1200 Given 06/02/2018 12:07 PM CDT 2.5 mg albuterol (PROVENTIL,VENTOLIN) 2.5 mg/0.5 mL nebulizer solution 2.5 mg 2.5 mg, nebulization, 4 times daily (security incident response engineer), First dose (after last modification) on 06/02/18 at 1600 Given 06/06/2018 3:25 PM CDT 2.5 mg Given 06/06/2018 11:10 AM CDT 2.5 mg Given 06/05/2018 4:50 PM CDT 2.5 mg albuterol (PROVENTIL,VENTOLIN) 2.5 mg/0.5 mL nebulizer solution 5 mg 5 mg, nebulization, Once (security incident response engineer), On 05/31/18 at 1607, For 1 dose, Indications: COPD ExacerbationIndications:COPD Exacerbation Given 05/31/2018 4:48 PM CDT 5 mg chlordiazePOXIDE (LIBRIUM) capsule 25 mg 25 mg, oral, Every 4 hours PRN, other, Score between 3 and 5 on Alcohol Withdrawl Assessment, Starting on 06/01/18 at 0805, For 6 days, HOLD for any status indicating over sedation including the following: drifts off to sleep during conversation, minimal or no response to verbal or physical stimulation, or respiratory rate less than 10 breaths per minute. Re-assess in 4 hours., Indications: Alcohol Withdrawal SyndromeIndications:Alcohol Withdrawal Syndrome Given 06/01/2018 5:11 PM CDT 25 mg Given 06/01/2018 8:23 AM CDT 25 mg chlordiazePOXIDE (LIBRIUM) capsule 25 mg 25 mg, oral, Every 2 hours PRN, other, Score between 6 and 12 on Alcohol Withdrawl Assessment, Starting on 06/01/18 at 0805, For 6 days, HOLD for any status indicating over sedation including the following: drifts off to sleep during conversation, minimal or no response to verbal or physical stimulation, or respiratory rate less than 10 breaths per minute. Re-assess in 2 hours., Indications: Alcohol Withdrawal SyndromeIndications:Alcohol Withdrawal Syndrome Given 06/02/2018 4:30 PM CDT 25 mg Given 06/02/2018 8:58 AM CDT 25 mg cyclobenzaprine (FLEXERIL) tablet 5 mg 5 mg, oral, 3 times daily PRN, muscle spasms, Starting on 06/01/18 at 0643 Given 06/06/2018 2:04 AM CDT 5 mg Given 06/05/2018 4:53 PM CDT 5 mg Given 06/05/2018 8:23 AM CDT 5 mg enoxaparin (LOVENOX) syringe 30 mg 30 mg, subcutaneous, Every 12 hours scheduled, First dose on 06/02/18 at 1015, Indications: Deep Vein Thrombosis PreventionIndications:Deep Vein Thrombosis Prevention Given 06/06/2018 8:21 AM CDT 30 mg Right Lower Abdomen Given 06/05/2018 9:49 PM CDT 30 mg Le ft Lower Abdomen Given 06/05/2018 8:23 AM CDT 30 mg Le ft Lower Abdomen folic acid (FOLVITE) tablet 1 mg 1 mg, oral, Daily, First dose on 06/01/18 at 0900, For 5 days, Indications: Folate DeficiencyIndications:Folate Deficiency Given 06/05/2018 8:14 AM CDT 1 mg Given 06/04/2018 8:09 AM CDT 1 mg Given 06/03/2018 9:55 AM CDT 1 mg gabapentin (NEURONTIN) capsule 100 mg 100 mg, oral, 3 times daily, First dose on 06/01/18 at 0900 Given 06/06/2018 3:50 PM CDT 100 mg Given 06/06/2018 8:20 AM CDT 100 mg Given 06/05/2018 9:49 PM CDT 100 mg haloperidol (HALDOL) 5 mg/mL injection - ADS Override Pull Starting on 06/01/18 at 0316, For 1 dose, KEV HARE: cabinet override haloperidol (HALDOL) injection 5 mg 5 mg, intramuscular, Once, On 06/01/18 at 0345, For 1 dose Given 06/01/2018 3:18 AM CDT 5 mg Left Deltoid ipratropium (ATROVENT) 0.02 % nebulizer solution 0.5 mg 0.5 mg, nebulization, Once (security incident response engineer), On 05/31/18 at 1607, For 1 dose, Indications: COPD ExacerbationIndications:COPD Exacerbation Given 05/31/2018 4:48 PM CDT 0.5 mg ipratropium (ATROVENT) 0.02 % nebulizer solution 0.5 mg 0.5 mg, nebulization, Every 4 hours while awake (security incident response engineer), First dose (after last modification) on Sat06/02/18 at 1200 Given 06/02/2018 12:07 PM CDT 0.5 mg ipratropium (ATROVENT) 0.02 % nebulizer solution 0.5 mg 0.5 mg, nebulization, 4 times daily (security incident response engineer), First dose (after last modification) on Sat06/02/18 at 1600 Given 06/06/2018 3:25 PM CDT 0.5 mg Given 06/06/2018 11:10 AM CDT 0.5 mg Given 06/05/2018 4:50 PM CDT 0.5 mg labetalol (NORMODYNE,TRANDATE) injection 10 mg 10 mg, intravenous, Once, On 05/31/18 at 0625, For 1 dose Given 05/31/2018 6:40 AM CDT 10 mg lidocaine (LIDODERM) 5 % patch 2 patch 2 patch, transdermal, Administer over 12 Hours, Daily, First dose on 06/01/18 at 0900, Do not cover the holes on the top side of the patch., Apply to affected area: back Medication Applied 06/06/2018 9:43 AM CDT 2 patches Other (Comment) Medication Applied 06/05/2018 8:14 AM CDT 2 patches Other (Comment) Medication Applied 06/04/2018 8:10 AM CDT 2 patches Other (Comment) losartan (COZAAR) tablet 50 mg 50 mg, oral, Daily, First dose on Sat06/02/18 at 0945 Given 06/06/2018 8:20 AM CDT 50 mg Given 06/05/2018 8:13 AM CDT 50 mg Given 06/04/2018 8:10 AM CDT 50 mg metoprolol (LOPRESSOR) 50 mg tablet - ADS Override Pull Starting on 06/01/18 at 0816, For 1 dose, LEIGHANN WOODALL: cabinet override metoprolol (LOPRESSOR) tablet 50 mg 50 mg, oral, Daily, First dose on 06/01/18 at 0900 Given 06/06/2018 8:20 AM CDT 50 mg Given 06/05/2018 8:13 AM CDT 50 mg Given 06/04/2018 8:10 AM CDT 50 mg morphine injection 2 mg 2 mg, intravenous, Every 4 hours PRN, 2nd line for pain, Starting on 05/31/18 at 1539 Given 05/31/2018 7:50 PM CDT 2 m g Given 05/31/2018 4:03 PM CDT 2 mg morphine injection 4 mg 4 mg, intravenous, Once, On 05/31/18 at 2317, For 1 dose Given 05/31/2018 11:23 PM CDT 4 mg multivit xjpiyizh-uttu-PT-calcium (THERA-M) tablet 1 tablet 1 tablet, oral, Daily, First dose on 06/01/18 at 0900, Indications: Vitamin Deficiency PreventionIndications:Vitamin Deficiency Prevention Given 06/06/2018 8:21 AM CDT 1 tablet Given 06/05/2018 8:13 AM CDT 1 tablet Given 06/04/2018 8:09 AM CDT 1 tablet oxyCODONE (ROXICODONE) tablet 5 mg 5 mg, oral, Every 4 hours PRN, 2nd line for pain, Starting on 06/01/18 at 0605, May repeat in 1 hour if pain is uncontrolled or increasing. Max 2 doses within 1 dosing interval., Indications: PainIndications:Pain Given 06/06/2018 2:08 PM CDT 5 mg Given 06/06/2018 9:43 AM CDT 5 mg Given 06/06/2018 5:23 AM CDT 5 mg oxyCODONE-acetaminophen (PERCOCET) 5-325 mg per tablet 1 tablet 1 tablet, oral, Every 4 hours PRN, 1st line for pain, Starting on 05/31/18 at 1127, Indications: PainIndications:Pain Given 05/31/2018 11:48 AM CDT 1 t ablet oxyCODONE-acetaminophen (PERCOCET) 5-325 mg per tablet 1-2 tablet 1-2 tablet, oral, Every 4 hours PRN, 1st line for pain, Starting on 05/31/18 at 1504, Indications: PainIndications:Pain Given 05/31/2018 9:03 PM CDT [address] (PROTONIX) extended release tablet 40 mg 40 mg, oral, 2 times daily, First dose on 06/01/18 at 0900, Do not crush or chew, Indications: Treatment of Non-Bleeding Gastric DisorderIndications:Treatment of Non-Bleeding Gastric Disorder Given 06/06/2018 8:20 AM CDT 40 mg Given 06/05/2018 9:49 PM CDT 40 mg Given 06/05/2018 8:13 AM CDT 40 mg predniSONE (DELTASONE) tablet 5 mg 5 mg, oral, Daily, First dose on 06/02/18 at 0945 Given 06/06/2018 8:21 AM CDT 5 mg Given 06/05/2018 8:13 AM CDT 5 mg Given 06/04/2018 8:09 AM CDT 5 mg senna-docusate (PERICOLACE) 8.6-50 mg per tablet 2 tablet 2 tablet, oral, 2 times daily, First dose on 06/01/18 at 0900 Given 06/06/2018 8:20 AM CDT 2 tablets Given 06/05/2018 9:49 PM CDT 2 tablets Given 06/05/2018 8:13 AM CDT 2 tablets sertraline (ZOLOFT) tablet 50 mg 50 mg, oral, Daily, First dose on 06/01/18 at 0900 Given 06/06/2018 8:21 AM CDT 50 mg Given 06/05/2018 8:13 AM CDT 50 mg Given 06/04/2018 8:09 AM CDT 50 mg simvastatin (ZOCOR) tablet 10 mg 10 mg, oral, Nightly, First dose on 06/01/18 at 2100 Given 06/05/2018 9:49 PM CDT 10 mg Given 06/04/2018 8:38 PM CDT 10 mg Given 06/03/2018 8:38 PM CDT 10 mg thiamine (VITAMIN B-1) tablet 100 mg 100 mg, oral, Daily, First dose on 06/01/18 at 0900, For 5 days, Indications: Thiamine DeficiencyIndications:Thiamine Deficiency Given 06/05/2018 8:13 AM CDT 10 0 mg Given 06/04/2018 8:10 AM CDT 100 mg Given 06/03/2018 9:54 AM CDT 100 mg documented in this encounter Discontinued Medications Medication Sig Discontinue Reason Start Date End Da te zinc sulfate 220 mg tablet Take by mouth. Other 05/31/2018 traMADol (ULTRAM) 50 mg tablet Take 50 mg by mouth every 6 (six) hours as needed for pain. Other 05/31/2018 tiotropium (SPIRIVA) 18 mcg per inhalation capsule Place 1 capsule into inhaler and inhale once daily. Other 05/31/2018 omeprazole (PriLOSEC) 20 mg capsule Take 20 mg by mouth 2 (two) times a day. Other 05/31/2018 multivitamin tablet,chewable Take by mouth. Other 05/31/2018 metoprolol (LOPRESSOR) 25 mg tablet Take 1 tablet (25 mg total) by mouth 2 (two) times a day. Other 05/02/2018 05/31/2018 melatonin 5 mg tablet Other 05/31/2018 losartan (COZAAR) 50 mg tablet Take 50 mg by mouth 2 (two) times a day. Other 05/31/2018 glipiZIDE (GLUCOTROL) 5 mg tabletIndications:typ e 2 diabetes mellitus Take 5 mg by mouth once. Other 05/31/2018 fluticasone (FLOVENT DISKUS) 250 mcg/actuation diskus inhaler Inhale 1 puff 2 (two) times a day. Rinse mouth with water after use to reduce aftertaste and incidence of candidiasis. Do not swallow. Other 05/31/2018 aspirin 81 mg tablet Take 81 mg by mouth daily. Other 05/31/2018 ascorbic acid (ascorbic acid) 500 mg tablet,chewable Take 500 mg by mouth. Other 018 ALPRAZolam (XANAX) 0.5 mg tablet Take 0.5 mg by mouth nightly as needed for anxiety. Other 05/31/2018 ALPRAZolam (XANAX) 1 mg tablet TK ONE T PO BID Stop Taking at Discharge 05/16/2018 06/06/2018 documented as of this encounter Historical Medications * This list may reflect changes made after this encounter. metoprolol (LOPRESSOR) 50 mg tablet Take 50 mg by mouth. 07/11/2016 losartan (COZAAR) 25 mg tablet Take 50 mg by mouth. 07/11/2016 predniSONE (DELTASONE) 5 mg tablet TK 1/2 T PO D 5 05/01/2018 simvastatin (ZOCOR) 10 mg tablet TK 1 T PO QD IN THE MONAE 1 05/01/2018 omeprazole (PriLOSEC) 40 mg capsule TK 1 C PO BID. 2 05/08/2018 PROAIR HFA 90 mcg/actuation inhaler INL 2 PFS PO Q 4 TO 6 H PRF SOB 0 03/13/2018 ALPRAZolam (XANAX) 1 mg tablet TK ONE T PO BID 0 05/16/2018 06/06/2018 added in this encounter Active and Recently Administered Medications Times are shown in CDT. Scheduled Medication Order 06/04/2018 06/05/2018 06/06/2018 albuterol (PROVENTIL,VENTOLIN) 2.5 mg/0.5 mL nebulizer solution 2.5 mg(Linked Group 1) 2.5 mg, nebulization, 4 times daily (security incident response engineer), First dose (after last modification) on Sat06/02/18 at 1600 0941 (Given - Provider: Mony Brock, FORGE PRESS OPERATOR - Comment: care coordination)1407 (Given - Provider: Mony Brock, FORGE PRESS OPERATOR - Comment: care coordination)1620 (Given - Provider: Shar Barahona, FORGE PRESS OPERATOR)1959 (Given - Provider: Adrianna Eckert, FORGE PRESS OPERATOR) 0733 (Given - Provider: Harini Barroso, FORGE PRESS OPERATOR)1351 (Not Given - Provider: Harini Barroso, FORGE PRESS OPERATOR - Reason: Patient not available)1650 (Given - Provider: Harini Barroso, FORGE PRESS OPERATOR)2057 (Not Given - Provider: Kayla Valladares RRT - Reason: Patient/family refused) 0901 (Not Given - Provider: Edwar Zapata, FORGE PRESS OPERATOR - Reason: Patient/family refused)1110 (Given - Provider: Edwar Zapata, MARY)1525 (Given - Provider: Poncho Shaffer, MARY) enoxaparin (LOVENOX) syringe 30 mg 30 mg, subcutaneous, Every 12 hours scheduled, First dose on Sat06/02/18 at 1015, Indications: Deep Vein Thrombosis Prevention 0811 (Given - Provider: Molly Miller RN)2035 (Given - Provider: Clarisse Abrams, PAUL) 08 (Given - Provider: Cheryl Benito, PAUL)214 (Given - Provider: Clarisse Abrams, PAUL) 08 (Given - Provider: Ragini Joseph RN) folic acid (FOLVITE) tablet 1 mg (COMPLETED) 1 mg, oral, Daily, First dose on Sat06/01/18 at 0900, For 5 days, Indications: Folate Deficiency 0809 (Given - Provider: Molly Miller RN) 0814 (Given - Provider: Cheryl Benito RN) gabapentin (NEURONTIN) capsule 100 mg 100 mg, oral, 3 times daily, First dose on 06/01/18 at 0900 0809 (Given - Provider: Molly Miller RN)1705 (Given - Provider: Molly Miller RN - Comment: pt care coordination)203 (Given - Provider: Clarisse Abrams, PAUL) 0813 (Given - Provider: Cheryl Benito RN)1653 (Given - Provider: Cheryl Benito RN)2149 (Given - Provider: Clarisse Abrams RN) 0820 (Given - Provider: Ragini Joseph, PAUL)1550 (Given - Provider: Ragini Joseph RN) ipratropium (ATROVENT) 0.02 % nebulizer solution 0.5 mg(Linked Group 1) 0.5 mg, nebulization, 4 times daily (security incident response engineer), First dose (after last modification) on 06/02/18 at 1600 0942 (Given - Provider: Mony Brock, FORGE PRESS OPERATOR - Comment: care coordination)1407 (Given - Provider: Mony Brock FORGE PRESS OPERATOR - Comment: care coordination)1620 (Given - Provider: Shar Barahona, FORGE PRESS OPERATOR)1959 (Given - Provider: Adrianna Eckert, FORGE PRESS OPERATOR) 0733 (Given - Provider: Harini Barroso, FORGE PRESS OPERATOR)1351 (Not Given - Provider: Harini Barroso FORGE PRESS OPERATOR - Reason: Patient not available)1650 (Given - Provider: Harini Barroso FORGE PRESS OPERATOR)205 (Not Given - Provider: Kayla Valladares, FORGE PRESS OPERATOR - Reason: Patient/family refused) 0901 (Not Given - Provider: Edwar Zapata, FORGE PRESS OPERATOR - Reason: Patient/family refused)1110 (Given - Provider: Edwar Zapata, FORGE PRESS OPERATOR)1525 (Given - Provider: Poncho Shaffer, MARY) lidocaine (LIDODERM) 5 % patch 2 patch 2 patch, transdermal, Administer over 12 Hours, Daily, First dose on 06/01/18 at 0900, Do not cover the holes on the top side of the patch., Apply to affected area: back 08 (Medication Applied - Provider: Molly Miller RN - Comment: lower back)2040 (Medication Removed - Provider: Clarisse Abrams RN) 08 (Medication Applied - Provider: Cheryl Benito RN)2150 (Medication Removed - Provider: Clarisse Abrams RN) 0943 (Medication Applied - Provider: Ragini Joseph RN - Comment: back)170 (Due: Medication Removed - Provider: Automatic Discharge Provider - Comment: Time automatically adjusted from order being discontinued) losartan (COZAAR) tablet 50 mg 50 mg, oral, Daily, First dose on 06/02/18 at 0945 0810 (Given - Provider: Molly Miller RN) 0813 (Given - Provider: Cheryl Benito RN) 0820 (Given - Provider: Ragini Joseph, PAUL) metoprolol (LOPRESSOR) tablet 50 mg 50 mg, oral, Daily, First dose on 06/01/18 at 0900 0810 (Given - Provider: Molly Miller RN) 0813 (Given - Provider: Cheryl Benito RN) 0820 (Given - Provider: Ragini Joseph RN) multivit hrasuhky-gims-UZ-calc ium (THERA-M) tablet 1 tablet 1 tablet, oral, Daily, First dose on 06/01/18 at 0900, Indications: Vitamin Deficiency Prevention 08 (Given - Provider: Molly Miller RN) 08 (Given - Provider: Cheryl Benito RN) 0821 (Given - Provider: Ragini Joseph RN) pantoprazole DR (PROTONIX) extended release tablet 40 mg 40 mg, oral, 2 times daily, First dose on 06/01/18 at 0900, Do not crush or chew, Indications: Treatment of Non-Bleeding Gastric Disorder 08 (Given - Provider: Molly Miller RN)2036 (Given - Provider: Clarisse Abrams RN) 08 (Given - Provider: Cheryl Benito RN)2148 (Given - Provider: Clarisse Abrams RN) 0820 (Given - Provider: Ragini Joseph RN) predniSONE (DELTASONE) tablet 5 mg 5 mg, oral, Daily, First dose on 06/02/18 at 0945 0809 (Given - Provider: Molly Miller RN) 0813 (Given - Provider: Cheryl Benito, PAUL) 0821 (Given - Provider: Ragini Joseph, PAUL) senna-docusate (PERICOLACE) 8.6-50 mg per tablet 2 tablet 2 tablet, oral, 2 times daily, First dose on 06/01/18 at 0900 0809 (Given - Provider: Molly Miller RN)2036 (Given - Provider: Clarisse Abrams RN) 08 (Given - Provider: Cheryl Benito RN)214 (Given - Provider: Clarisse Abrams, PAUL) 0820 (Given - Provider: Ragini Joseph, PAUL) sertraline (ZOLOFT) tablet 50 mg 50 mg, oral, Daily, First dose on 06/01/18 at 0900 0809 (Given - Provider: Molly Miller RN) 0813 (Given - Provider: Cheryl Benito RN) 0821 (Given - Provider: Ragini Joseph, PAUL) simvastatin (ZOCOR) tablet 10 mg 10 mg, oral, Nightly, First dose on 06/01/18 at 2100 2037 (Given - Provider: Clarisse Abrams, PAUL) 2148 (Given - Provider: Clarisse Abrams, PAUL) thiamine (VITAMIN B-1) tablet 100 mg (COMPLETED) 100 mg, oral, Daily, First dose on 06/01/18 at 0900, For 5 days, Indications: Thiamine Deficiency 0810 (Given - Provider: Molly Miller RN) 0813 (Given - Provider: Cheryl Benito RN) PRN Medication Order 06/04/2018 06/05/2018 06/06/2018 acetaminophen (TYLENOL) tablet 1,000 mg 1,000 mg, oral, Every 6 hours PRN, 1st line for pain, Starting on 06/01/18 at 0605 0809 (Given - Provider: Molly Miller RN)1705 (Given - Provider: Molly Miller RN) 0813 (Given - Provider: Cheryl Benito RN)1420 (Given - Provider: Cheryl Benito RN) 0820 (Given - Provider: Ragini Joseph, PAUL) chlordiazePOXIDE (LIBRIUM) capsule 25 mg(Linked Group 2) 25 mg, oral, Every 4 hours PRN, other, Score between 3 and 5 on Alcohol Withdrawl Assessment, Starting on 06/01/18 at 0805, For 6 days, HOLD for any status indicating over sedation including the following: drifts off to sleep during conversation, minimal or no response to verbal or physical stimulation, or respiratory rate less than 10 breaths per minute. Re-assess in 4 hours., Indications: Alcohol Withdrawal Syndrome chlordiazePOXIDE (LIBRIUM) capsule 25 mg(Linked Group 2) 25 mg, oral, Every 2 hours PRN, other, Score between 6 and 12 on Alcohol Withdrawl Assessment, Starting on 06/01/18 at 0805, For 6 days, HOLD for any status indicating over sedation including the following: drifts off to sleep during conversation, minimal or no response to verbal or physical stimulation, or respiratory rate less than 10 breaths per minute. Re-assess in 2 hours., Indications: Alcohol Withdrawal Syndrome cyclobenzaprine (FLEXERIL) tablet 5 mg 5 mg, oral, 3 times daily PRN, muscle spasms, Starting on 06/01/18 at 0643 0823 (Given - Provider: Cheryl Benito RN)1653 (Given - Provider: Cheryl Benito RN) 0204 (Given - Provider: Clarisse Abrams, PAUL)1526 (Return to Cabinet - Provider: Ragini Joseph, PAUL) oxyCODONE (ROXICODONE) tablet 5 mg 5 mg, oral, Every 4 hours PRN, 2nd line for pain, Starting on 06/01/18 at 0605, May repeat in 1 hour if pain is uncontrolled or increasing. Max 2 doses within 1 dosing interval., Indications: Pain 1322 (Given - Provider: Molly Miller RN)2354 (Given - Provider: Clarisse Abrams RN) 0554 (Given - Provider: Clarisse Abrams RN)1029 (Given - Provider: Cheryl Benito RN)1420 (Given - Provider: Cheryl Benito RN)1814 (Given - Provider: Cheryl Benito RN) 0107 (Given - Provider: Clarisse Abrams RN)5708 (Given - Provider: Clarisse Abrams, PAUL)6491 (Given - Provider: Ragini Joseph, RN)4159 (Given - Provider: Ragini Joseph, RN) Linked Groups Order Group 1: albuterol (PROVENTIL,VENTOLIN) 2.5 mg/0.5 mL nebulizer solution 2.5 mgJump to med 2.5 mg, nebulization, 4 times daily (security incident response engineer), First dose (after last modification) on Sat06/02/18 at 1600 And ipratropium (ATROVENT) 0.02 % nebulizer solution 0.5 mgJump to med 0.5 mg, nebulization, 4 times daily (security incident response engineer), First dose (after last modification) on Sat06/02/18 at 1600 Group 2: chlordiazePOXIDE (LIBRIUM) capsule 25 mgJump to med 25 mg, oral, Every 4 hours PRN, other, Score between 3 and 5 on Alcohol Withdrawl Assessment, Starting on Sat06/01/18 at 0805, For 6 days, HOLD for any status indicating over sedation including the following: drifts off to sleep during conversation, minimal or no response to verbal or physical stimulation, or respiratory rate less than 10 breaths per minute. Re-assess in 4 hours., Indications: Alcohol Withdrawal Syndrome Or chlordiazePOXIDE (LIBRIUM) capsule 25 mgJump to med 25 mg, oral, Every 2 hours PRN, other, Score between 6 and 12 on Alcohol Withdrawl Assessment, Starting on Sat06/01/18 at 0805, For 6 days, HOLD for any status indicating over sedation including the following: drifts off to sleep during conversation, minimal or no response to verbal or physical stimulation, or respiratory rate less than 10 breaths per minute. Re-assess in 2 hours., Indications: Alcohol Withdrawal Syndrome documented in this encounter Orders Medications Ordered That Patrick ht Not Have Been Administered Count Last Ordered Date First Ordered Date albuterol (PROVENTIL,VENTOLI N) 2.5 mg/0.5 mL nebulizer solution 2.5 mg 4 06/02/2018 06/01/2018 albuterol HFA (PROVENTIL HFA ,VENTOLIN HFA,PROAIR HFA) 90 mcg/actuation inhaler 2 puff 1 06/02/2018 ipratropium (ATROVENT) 0.02 % nebulizer solution 0.5 mg 4 06/02/2018 06/01/2018 ipratropium-albuterol (DUO-N EB) 0.5-2.5 mg/3 mL nebulizer solution 3 mL 1 06/02/2018 enoxaparin (LOVENOX) syringe 30 mg 1 2017 LORazepam (ATIVAN) injection 1 mg 1 018 Diet Count Last Ordered Date First Orde red Date ADULT DISCHARGE DIET 1 06/06/2018 Nursing Count Last Ordered Date First Orde red Date DISCHARGE ACTIVITY 5 06/06/2018 DISCHARGE CALL PROVIDER 7 06/06/2018 DISCHARGE DRESSING 1 06/06/2018 DISCHARGE INSTRUCTIONS 1 06/06/2018 FOLLOW UP WITH PROVIDER 1 06/06/[address] SEQUENTIAL COMPRESSION DEVICE 1 06/01 Consult Count Last Ordered Date First Orde red Date IP CONSULT TO ORTHO SPINE 1 05/31/2018 IP CONSULT TO TRAUMA SURGERY 1 05/31/2018 Admission Count Last Ordered Date First Orde red Date ASSIGN PATIENT STATUS 1 05/31/2018 ADT Patient Update Count Last Ordered Date Firs t Ordered Date ED IP DECISION TO ADMIT 1 05/31/[address] IN ED OBSERVATION 1 05/31/2018 documented in this encounter Care Teams Digital Color Press Operator Relationship Specialty Start Date End Date Leoncio Kilpatrick MD [address] [place] [address] PCP - General 04/19/17 06/08/18 documented as of this encounter
--- OUTSIDE RECORDS SUMMARY | 2024-10-21 23:06 | XMS_ITS | Encounter Summary ---
Author Organization [facility] Address [address] [place] [address] Care Team Providers Care Interior Design Consultant Name Role Phone Leoncio Kilpatrick MD Primary Care Provider [phone] Encounter Details Date Type Department Care Team (Late st Contact Info) Description 03/28/2018 Orders Only [facility] Cardiology [address] [place] [address] ProviderSotero MD [address] [place] [id number] Social History Tobacco Use Types Packs/Day Years Used Date Smoking Tobacco: Former Alcohol Use Standard Drinks/Week Comments Yes 0 (1 standard drink = 0.6 oz pur e alcohol) 1OR 2 DAILY Sex and Gender Information Value Date Recorded Sex Assigned at Not on file Legal Sex Male 3:11 AM DIRECTOR DATA MANAGEMENT Gender Identity Not on file Sexual Orientation Not on file documented as of this encounter Plan of Treatment Not on file documented as of this encounter Procedures Procedure Name Priority Date/Time Associated Diagnosis Comments TRANSTHORACIC ECHO (TTE) COM PLETE W DOPPLER/CF Routine 03/08/2018 documented in this encounter Results * Transthoracic Echo Complete W Doppler/CF (03/08/2018) Anatomical Region Laterality Modality Ultrasound Historical Provider CV ECHO PROCEDURES Final Result documented in this encounter Visit Diagnoses Not on filedocumented in this encounter Care Teams Interior Design Consultant Relationship Specialty Start Date End Date Leoncio Kilpatrick MD [address] [place] [address] PCP - General 04/19/17 06/08/18 documented as of this encounter
--- OUTSIDE RECORDS SUMMARY | 2024-10-22 12:04 | XMS_ITS | Encounter Summary ---
Author Organization [facility] Address [address] [place] [address] Care Team Providers Care Vocational Technical Education Teacher Name Role Phone Leoncio Kilpatrick MD Primary Care Provider [phone] Encounter Details Date Type Department Care Team (Late st Contact Info) Description 06/30/2020 Orders Only [facility] Cardiology [address] [facility] [address] [place] [address] Destin Bob MD [address] [place] [address] Social History Tobacco Use Types Packs/Day Years Used Date Smoking Tobacco: Former Alcohol Use Standard Drinks/Week Comments Yes 0 (1 standard drink = 0.6 oz pur e alcohol) 1OR 2 DAILY Sex and Gender Information Value Date Recorded Sex Assigned at Not on file Legal Sex Male 3:11 AM ADMISSIONS NURSE Gender Identity Not on file Sexual Orientation [...] on filedocumented in this encounter Care Teams Vocational Technical Education Teacher Relationship Specialty Start Date End Date Leoncio Kilpatrick MD [address] [place] [address] PCP - General 06/09/18 documented as of this encounter
--- OUTSIDE RECORDS SUMMARY | 2024-10-22 12:04 | XMS_ITS | Encounter Summary ---
Author Organization [facility] Address [address] [place] [address] Care Team Providers Care Utility Agent Name Role Phone Leoncio Kilpatrick MD Primary Care Provider [phone] Encounter Details Date Type Department Care Team (Late st Contact Info) Description 12/31/2019 Orders Only [facility] Cardiology [address] [place] [address] Angely Rowe MD [address] [place] [address] Social History Tobacco Use Types Packs/Day Years Used Date Smoking Tobacco: Former Alcohol Use Standard Drinks/Week Comments Yes 0 (1 standard drink = 0.6 oz pur e alcohol) 1OR 2 DAILY Sex and Gender Information Value Date Recorded Sex Assigned at Not on file Legal Sex Male 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
--- OUTSIDE RECORDS SUMMARY | 2024-10-22 12:04 | XMS_ITS | Encounter Summary ---
Author Organization [facility] Address [address] [place] [address] Care Team Providers Care Dining Service Worker Name Role Phone Leoncio Kilpatrick MD Primary Care Provider Encounter Details Date Type Department Care Team (Late st Contact Info) Description 07/01/2020 Orders Only [facility] Cardiology [address] [facility] [address] [place] [address] Destin Bob MD [address] [place] [address] Social History Tobacco Use Types Packs/Day Years Used Date Smoking Tobacco: Former Alcohol Use Standard Drinks/Week Comments Yes 0 (1 standard drink = 0.6 oz pur e alcohol) 1OR 2 DAILY Sex and Gender Information Value Date Recorded Sex Assigned at Not on file Legal Sex Male 3:11 AM DIET KITCHEN COOK Gender Identity Not on file Sexual Orientation [...] on filedocumented in this encounter Care Teams Dining Service Worker Relationship Specialty Start Date End Date Leoncio Kilpatrick MD [address] [place] [address] PCP - General 06/09/18 documented as of this encounter
--- OUTSIDE RECORDS SUMMARY | 2024-10-22 12:04 | XMS_ITS | Encounter Summary ---
Author Organization [facility] Address [address] [facility] [address] [place] [address] Care Team Providers Care Accounts Receivable Supervisor Name Role Phone Leoncio Kilpatrick MD Primary Care Provider [phone] Encounter Details Date Type Department Care Team (Late st Contact Info) Description 06/28/2020 Orders Only [facility] Cardiology [address] [facility] [address] [place] [address] Destin Bob MD [address] [place] [address] Social History Tobacco Use Types Packs/Day Years Used Date Smoking Tobacco: Former Alcohol Use Standard Drinks/Week Comments Yes 0 (1 standard drink = 0.6 oz pur e alcohol) 1OR 2 DAILY Sex and Gender Information Value Date Recorded Sex Assigned at Not on file Legal Sex Male 3:11 AM SENIOR TEST ENGINEER Gender Identity Not on file Sexual [...] on filedocumented in this encounter Care Teams Accounts Receivable Supervisor Relationship Specialty Start Date End Date Leoncio Kilpatrick MD [address] [place] [address] PCP - General 06/09/18 documented as of this encounter
--- OUTSIDE RECORDS SUMMARY | 2024-10-22 12:04 | XMS_ITS | Clinical Summary ---
Author Organization [facility] Address [address] [place] [address] Care Team Providers Care Home [employer]ot Rep Name Role Phone Leoncio Kilpatrick MD Primary Care Provider [phone] Allergies Active Allergy Reactions Criticality Noted Date [...] Department Care Team Description 08/04/[address] [facility] Cardiology [address] [place] [address] Joel Pulido MD from Last [...] on file Legal Sex Male 3:11 AM MEDICAL ASSISTANT PRN Gender Identity Not on file Sexual Orientation [...] Result from Last 3 Months Insurance [facility] IDPA MEDICARE Advance Directives For more information, please contact: [phone] * Full Code (Latest Code Status on File) Date Activated Date Inactivated Comments 06/05/2018 4:43 PM 06/06/2018 7:06 PM Care Teams Home [employer] Rep Relationship Specialty Start Date End Date Leoncio Kilpatrick MD [address] [place] [address] PCP - General 06/09/18
--- OUTSIDE RECORDS SUMMARY | 2024-10-22 12:04 | XMS_ITS | Encounter Summary ---
Author Organization [facility] Address [address] [place] [address] Care Team Providers Care Machinist Class B Name Role Phone Leoncio Kilpatrick MD Primary Care Provider [phone] Encounter Details Date Type Department Care Team (Late st Contact Info) Description 11/02/2020 Orders Only [facility] Cardiology [address] [place] [address] Destin Bob MD [address] [place] [address] Social History Tobacco Use Types Packs/Day Years Used Date Smoking Tobacco: Former Alcohol Use Standard Drinks/Week Comments Yes 0 (1 standard drink = 0.6 oz pur e alcohol) 1OR 2 DAILY Sex and Gender Information Value Date Recorded Sex Assigned at Not on file Legal Sex Male 3:11 AM APRON MAN Gender Identity Not on file Sexual Orientation [...] on filedocumented in this encounter Care Teams Machinist Class B Relationship Specialty Start Date End Date Leoncio Kilpatrick MD [address] [place] [address] PCP - General 06/09/18 documented as of this encounter
--- OUTSIDE RECORDS SUMMARY | 2024-10-22 12:04 | XMS_ITS | Encounter Summary ---
Author Organization [facility] Address [address] [facility] [facility] [address] [facility] [address] [place] [address] Care Team Providers Care Steam Pipe Fitter Name Role Phone Leoncio Kilpatrick MD Primary Care Provider [phone] Encounter Details Date Type Department Care Team (Late st Contact Info) Description 06/20/2018 Orders Only [facility] [address] [facility] [address] [place] [address] ProviderSotero MD [address] [place] [address] Social History Tobacco Use Types Packs/Day Years Used Date Smoking Tobacco: Former Alcohol Use Standard Drinks/Week Comments Yes 0 (1 standard drink = 0.6 oz pur e alcohol) 1OR 2 DAILY Sex and Gender Information Value Date Recorded Sex Assigned at Not on file Legal Sex Male 3: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
--- OUTSIDE RECORDS SUMMARY | 2024-10-22 12:04 | XMS_ITS | Encounter Summary ---
Author Organization [facility] Address [address] [place] [address] Care Team Providers Care Algologist Name Role Phone Leoncio Kilpatrick MD Primary Care Provider [phone] Encounter Details Date Type Department Care Team (Late st Contact Info) Description 06/08/2021 Orders Only [facility] Cardiology [address] [facility] [address] [place] [address] Min Lyon MD [address] [place] [address] [address] [place] [address] Social History Tobacco Use Types Packs/Day Years Used Date Smoking Tobacco: Former Alcohol Use Standard Drinks/Week Comments Yes 0 (1 standard drink = 0.6 oz pur e alcohol) 1OR 2 DAILY Sex and Gender Information Value Date Recorded Sex Assigned at Not on file Legal Sex Male 3:11 AM WATER ATTENDANT Gender Identity Not on file Sexual Orientation [...] on filedocumented in this encounter Care Teams Algologist Relationship Specialty Start Date End Date Leoncio Kilpatrick MD [address] [place] [address] PCP - General 06/09/18 documented as of this encounter
--- OUTSIDE RECORDS SUMMARY | 2024-10-22 12:04 | XMS_ITS | Encounter Summary ---
Author Organization [facility] Address [address] [place] [address] Care Team Providers Care Child Life Therapist Name Role Phone Leoncio Kilpatrick MD Primary Care Provider [phone] Encounter Details Date Type Department Care Team (Late st Contact Info) Description 12/30/2021 Orders Only [facility] Cardiology [address] [facility] [address] [place] [address] Min Lyon MD [address] [place] [address] [address] [place] [address] Social History Tobacco Use Types Packs/Day Years Used Date Smoking Tobacco: Former Alcohol Use Standard Drinks/Week Comments Yes 0 (1 standard drink = 0.6 oz pur e alcohol) 1OR 2 DAILY Sex and Gender Information Value Date Recorded Sex Assigned at Not on file Legal Sex Male 3:11 AM BED PLACEMENT COORDINATOR Gender Identity Not on file Sexual [...] on filedocumented in this encounter Care Teams Child Life Therapist Relationship Specialty Start Date End Date Leoncio Kilpatrick MD [address] [place] [address] PCP - General 06/09/18 documented as of this encounter
--- OUTSIDE RECORDS SUMMARY | 2024-10-22 12:04 | XMS_ITS | Encounter Summary ---
Author Organization [facility] Address [address] [facility] [address] [place] [address] Care Team Providers Care Psych Social Worker Name Role Phone Leoncio Kilpatrick MD Primary Care Provider [phone] Encounter Details Date Type Department Care Team (Late st Contact Info) Description 06/09/2018 Telephone [facility] [address] [address] Angely Rowe MD [address] [facility] [address] [place] [address] Social History Tobacco Use Types Packs/Day Years Used Date Smoking Tobacco: Former Alcohol Use Standard Drinks/Week Comments Yes 0 (1 standard drink = 0.6 oz pur e alcohol) 1OR 2 DAILY Sex and Gender Information Value Date Recorded Sex Assigned at Not on file Legal Sex Male 3:11 AM SHOE REPAIRMAN Gender Identity Not on file Sexual Orientation [...] is not a pt of Dr. Kilpatrick [phone] documented in this encounter Plan of Treatment Not on file documented as of this encounter Visit Diagnoses Not on filedocumented in this encounter Care Teams Psych Social Worker Relationship Specialty Start Date End Date Leoncio Kilpatrick MD [address] [place] [address] PCP - General 06/09/18 documented as of this encounter
--- OUTSIDE RECORDS SUMMARY | 2024-10-22 12:04 | XMS_ITS | Encounter Summary ---
Author Organization [facility] Address [facility] [place] [address] Care Team Providers Care Contract Accountant Name Role Phone Leoncio Kilpatrick MD Primary Care Provider [phone] Encounter Details Date Type Department Care Team (Late st Contact Info) Description 08/04/2024 Orders Only [facility] Cardiology [address] [facility] [address] [place] [address] Joel Pulido MD [address] [place] [address] Social History Tobacco Use Types Packs/Day Years Used Date Smoking Tobacco: Former Alcohol Use Standard Drinks/Week Comments Yes 0 (1 standard drink = 0.6 oz pur e alcohol) 1OR 2 DAILY Sex and Gender Information Value Date Recorded Sex Assigned at Not on file Legal Sex Male 3:11 AM COAL EQUIPMENT OPERATOR Gender Identity Not on file Sexual [...] on filedocumented in this encounter Care Teams Contract Accountant Relationship Specialty Start Date End Date Leoncio Kilpatrick MD [address] [place] [address] PCP - General 06/09/18 documented as of this encounter
--- OUTSIDE RECORDS SUMMARY | 2024-10-22 12:04 | XMS_ITS | Encounter Summary ---
Author Organization [facility] Address [address] [place] [address] Care Team Providers Care Oxygen Equipment Preparer Name Role Phone Leoncio Kilpatrick MD Primary Care Provider [phone] Encounter Details Date Type Department Care Team (Late st Contact Info) Description 06/29/2020 Orders Only [facility] Cardiology [address] [facility] [address] [place] [address] Destin Bob MD [address] [place] [address] Social History Tobacco Use Types Packs/Day Years Used Date Smoking Tobacco: Former Alcohol Use Standard Drinks/Week Comments Yes 0 (1 standard drink = 0.6 oz pur e alcohol) 1OR 2 DAILY Sex and Gender Information Value Date Recorded Sex Assigned at Not on file Legal Sex Male 3:11 AM MOLD MAKER HELPER Gender Identity Not on file Sexual [...] on filedocumented in this encounter Care Teams Oxygen Equipment Preparer Relationship Specialty Start Date End Date Leoncio Kilpatrick MD [address] [place] [address] PCP - General 06/09/18 documented as of this encounter
--- OUTSIDE RECORDS SUMMARY | 2024-10-22 12:04 | XMS_ITS | Encounter Summary ---
Author Organization [facility] Address [address] [facility] [facility] [address] [place] [address] Care Team Providers Care Trap Operator Name Role Phone Leoncio Kilpatrick MD Primary Care Provider [phone] Encounter Details Date Type Department Care Team (Late st Contact Info) Description 11/03/2020 Orders Only [facility] Cardiology [address] [place] [address] Destin Bob MD [address] [place] [address] Social History Tobacco Use Types Packs/Day Years Used Date Smoking Tobacco: Former Alcohol Use Standard Drinks/Week Comments Yes 0 (1 standard drink = 0.6 oz pur e alcohol) 1OR 2 DAILY Sex and Gender Information Value Date Recorded Sex Assigned at Not on file Legal Sex Male 3:11 AM WATER CHASER Gender Identity Not on file Sexual Orientation [...] on filedocumented in this encounter Care Teams Trap Operator Relationship Specialty Start Date End Date Leoncio Kilpatrick MD [address] [place] [address] PCP - General 06/09/18 documented as of this encounter
--- OUTSIDE RECORDS SUMMARY | 2024-10-22 12:04 | XMS_ITS | Referral Summary ---
Author Organization [facility] Address [address] [place] [address] Care Team Providers Care Comber Setter Name Role Phone Leoncio Kilpatrick MD Primary Care Provider [phone] Encounters Date Type Department Care Team Description 08/04/2024 Orders Only [facility] Cardiology [address] [place] [address] Joel Pulido MD from Last [...] on file Legal Sex Male 3:11 AM FOREST AND CONSERVATION WORKER Gender Identity Not on file Sexual Orientation [...] inal Result from Last 3 Months Insurance [facility] IDPA MEDICARE Advance Directives For more information, please contact: [phone] * Full Code (Latest Code Status on File) Date Activated Date Inactivated Comments 06/05/2018 4:43 PM 06/06/2018 7:06 PM Care Teams Comber Setter Relationship Specialty Start Date End Date Leoncio Kilpatrick MD [address] [place] [address] PCP - General 06/09/18
--- OUTSIDE RECORDS SUMMARY | 2024-10-22 12:04 | XMS_ITS | Encounter Summary ---
Author Organization [facility] Address [address] [place] [address] Care Team Providers Care Student Union Consultant Name Role Phone Leoncio Kilpatrick MD Primary Care Provider [phone] Encounter Details Date Type Department Care Team (Late st Contact Info) Description 11/04/2020 Orders Only [facility] Cardiology [address] [facility] [address] [place] [address] Master Eric MD [address] [place], [place] [address] Social History Tobacco Use Types Packs/Day Years Used Date Smoking Tobacco: Former Alcohol Use Standard Drinks/Week Comments Yes 0 (1 standard drink = 0.6 oz pur e alcohol) 1OR 2 DAILY Sex and Gender Information Value Date Recorded Sex Assigned at Not on file Legal Sex Male 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
--- OUTSIDE RECORDS SUMMARY | 2024-10-22 12:04 | XMS_ITS | Encounter Summary ---
Author Organization [facility] Address [address] [place] [address] Care Team Providers Care Promotions Assistant Sales Marketing Name Role Phone Leoncio Kilpatrick MD Primary Care Provider [phone] Encounter Details Date Type Department Care Team (Late st Contact Info) Description 04/28/2022 Orders Only [facility] Cardiology [address] [place] [address] Jesse Schumacher MD [address] [place] [id number] Social History Tobacco Use Types Packs/Day Years Used Date Smoking Tobacco: Former Alcohol Use Standard Drinks/Week Comments Yes 0 (1 standard drink = 0.6 oz pur e alcohol) 1OR 2 DAILY Sex and Gender Information Value Date Recorded Sex Assigned at Not on file Legal Sex Male 3:11 AM [employer] Gender Identity Not on file Sexual Orientation [...] on filedocumented in this encounter Care Teams Promotions Assistant Sales Marketing Relationship Specialty Start Date End Date Leoncio Kilpatrick MD [address] [place] [address] PCP - General 06/09/18 documented as of this encounter
--- OUTSIDE RECORDS SUMMARY | 2024-10-22 12:05 | XMS_ITS | Encounter Summary ---
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); Nicotine dependence, uncomplicated; Amputation of limb(s) as the cause of abnormal reaction of the patient, or of later complication, without mention of misadventure at the time of the procedure; care home as place of occurrence of external cause Social History Tobacco Use Types Packs/Day Years Used Date Smoking Tobacco: Never Assessed Sex and Gender Information Value Date Recorded Sex Assigned at Not on file Legal Sex Male 3:11 AM GUN NUMBER Gender Identity Not on file Sexual Orientation [...] misadventure at the time of the procedure care home as place of occurrence of external cause documented in this encounter Care Teams Jukebox Checker Relationship Specialty Start Date End Date Master Colbert MD [address] [place] [address] PCP - General 12/16/13 04/18/17 documented as of this encounter
--- OUTSIDE RECORDS SUMMARY | 2024-10-22 12:05 | XMS_ITS | Encounter Summary ---
Author Organization [facility] Address [address] [place] [id number] Care Team Providers Care Board Layer Name Role Phone Leoncio Kilpatrick MD Primary Care Provider [phone] Encounter Details Date Type Department Care Team (Late st Contact Info) Description 05/02/2018 Telephone [facility] [address] [place] [phone] Angely Rowe MD [address] [place] [id number] Social History Tobacco Use Types Packs/Day Years Used Date Smoking Tobacco: Former Alcohol Use Standard Drinks/Week Comments Yes 0 (1 standard drink = 0.6 oz pur e alcohol) 1OR 2 DAILY Sex and Gender Information Value Date Recorded Sex Assigned at Not on file Legal Sex Male 3:11 AM DEMOLITION SPECIALIST Gender Identity Not on file Sexual Orientation [...] Dolores Rodriguez - 05/02/2018 11:17 AM CDT [facility] [place] called for refill on metoprolol tartrate 25 [...] documented as of this encounter Care Teams Board Layer Relationship Specialty Start Date End Date Leoncio Kilpatrick MD [address] [place] [address] PCP - General 04/19/17 06/08/18 documented as of this encounter
--- OUTSIDE RECORDS SUMMARY | 2024-10-22 12:05 | XMS_ITS | Encounter Summary ---
Author Organization [facility] Healthcare Address [address] [place] [address] Care Team Providers Care Tattoo Technician Name Role Phone Leoncio Kilpatrick MD Primary Care Provider [phone] Reason for Visit * Reason Comments Back Pain Encounter Details Date Type Department Care Team (Latest Contact Info) Description 05/31/2018 1:02 AM CDT - 06/06/2018 3:32 PM CDT Hospital Encounter [facility] [address] [place] [id number] Deangelo Loya MD [address] [place] [address] Denise Decker MD [address] [place] [address] Bernardino Penny MD [address] [place] [address] Corazon Slaughter MD [address] [place] [address] Chapito Evans MD [address] [place] [address] Acute midline low back pain, with sciatica presence unspecified (Primary Dx); Closed stable burst fracture of twelfth thoracic vertebra, initial encounter ([facility]); Closed fracture dislocation of lumbar spine, initial encounter ([facility]); Accidental fall, initial encounter Discharge Disposition: Discharge to SNF Social History Tobacco Use Types Packs/Day Years Used Date Smoking Tobacco: Former Alcohol Use Standard Drinks/Week Comments Yes 0 (1 standard drink = 0.6 oz pur e alcohol) 1OR 2 DAILY Sex and Gender Information Value Date Recorded Sex Assigned at Not on file 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 Gender Identity Not on file Sexual Orientation [...] Care Physician at Discharge: Leoncio Kilpatrick MD [phone] Admission Date: 05/31/2018 Discharge Date: 06/06/2018 Primary Discharge Diagnosis: T12 burst fracture L1 vertebral fracture Small left pleural effusion Secondary Discharge Diagnosis: Atrial flutter ([facility]) Essential hypertension, benign Falls frequently T12 burst fracture ([facility]/HCC) L1 vertebral fracture ([facility]/HCC) ETOH abuse COPD (chronic obstructive pulmonary disease) (CMS/HCC) Neuropathy ([facility]/HCC) Major depressive disorder Chronic renal failure Anxiety [...] Status Chemical dependency drug screen Collected (06/02/18 9442) Operative Procedures Performed: None Other Procedures: none [...] MD HCG Deidra Gilliam 06/20/2018 1:30 PM [facility] ACUTE CRITICAL CARE TEAM [facility] Contact Information for Follow-ups [facility] for Outpatient Health [address] [place] [phone] Next Steps: Follow up Instructions: you are scheduled to have a chest x-ray prior to your appointment, please arrive early to have this done prior to your appointment time, please call [phone] if you need to reschedule Questions: Instructions for follow-up: you are scheduled to have a chest x-ray prior to your appointment, please arrive early to have this done prior to your appointment time, please call [phone] if you need to reschedule Appointment Date: 06/20/2018 Appointment Time: 1:30 PM Justa Clark [facility] Cosigned by Bernardino Penny MD at 06/08/2018 [...] Blood soaks through your bandage. ?? 2016 [employer]. Information is for End User's use only and may not be sold, redistributed or otherwise used for commercial purposes. All illustrations and images included in CareNotes?? are the copyrighted property of [employer]. or [employer]. 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 It is not intended as medical [...] more information? ?? [employer] [address] [place] [address] Phone: Phone: Web Address: [email or web address] Call 911 or have someone else call [...] refuse treatment. 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 It is not intended as medical advice for individual conditions or treatments. Talk to your doctor, nurse or pharmacist before following any medical regimen to see if it is safe and effective for you. ?? 2016 [employer]. Information is for End User's use only and may not be sold, redistributed or otherwise used for commercial purposes. All illustrations and images included in CareNotes?? are the copyrighted property of [employer] or [employer]. documented in this encounter Medications at Time [...] ADINA - 06/06/2018 1:57 PM CDT 06/06/18 7866 Discharge Summary Chart reviewed For Medical Necessity Discharge Disposition SNF, Commercial Insurance, Short term Skilled Specify Facility [facility] Facility Contact Number [phone] Discharge Records Transfer Form Completed;Chart Copied Discharge Additional Assistance Does the patient need discharge transport arranged? Yes Has discharge transport been arranged? Yes Details of Transportation [email or web address] [phone] Trip [id number] What day is the transport expected? 05/30/18 [...] of care provider (see Follow Up Providers) [facility] F: [phone] R: [phone] [place] [phone] Trip [id number] Pt has been accepted at [facility]. Facility was able to accept pt as he does not come up as a traditional sex offender on their database, but rather, pt's record indicates public indecency. [facility] has approved, auth #: [id number]. Facility aware and anticipate pt's arrival. Pt aware and is agreeable. Pt's dtr Adwoa was notified, VM left as she is on vacation. Adwoa had indicated to SW ealrier in the week that is was alright if SW left a VM indicating where pt would be going at discharge. Transportation has been arranged through [email or web address]. Mode of transport has been discussed with the patient/family, doctors, nurses, and all are agreeable to plan and understand their responsibilities to ensure the safe transfer. Certificate of Medical Necessity completed due to T12, L1 frx. No further social work intervention is anticipated at this time. Adwoa Jefferson LMSW [facility] Social Work [phone] * Monchokendall Renetta, RD - 06/06/2018 12:36 [...] Soft Diet effective now Question Answer Comment ([facility]) Diet type Regular ([facility]) Diet type Restricted Modified Consistency: Mechanical Soft [...] Supplement tolerance Renetta Rose MS RD LD #[phone] * Torri Marshall DPT - 06/05/2018 3:55 PM CDT Physical Therapy As supervising therapist, I agree with all information documented by PT student Annie Muhammad. * Paris Soriano NP - 06/05/2018 1:29 PM CDT [facility] Geriatric Trauma Surgery Daily Progress Note Admit: [...] Brown MD at 01/08/2020 10:37 AM CDT ITECTURAL TECHNOLOGIST Associated attestation - Ruben Brown MD - 01/08/2020 10:37 AM CDT This note is being signed by Ruben Brown as Dr Penny has left the [facility]. I was not involved in this encounter with the patient but am administratively signing this note to close the encounter in [facility]. * Justa Clark NP - 06/05/2018 8:27 AM CDT [facility] Geriatric Trauma Surgery Daily Progress Note Admit: [...] NP, 50 mg at 06/05/18812 ??? multivit unayygrb-sgaz-UG-calcium (THERA-M) tablet 1 tablet, 1 tablet, oral, Daily, Shahnaz Coto MD, 1 tablet at 06/05/18812 ??? oxyCODONE (ROXICODONE) tablet 5 mg, 5 mg, oral, Q4H PRN, Shahnaz Coto MD, 5 mg at 06/05/18 0554 ??? pantoprazole DR (PROTONIX) extended release tablet 40 mg, 40 mg, oral, BID, Antnoietta Dunham NP, 40 mg at 06/05/18812 ??? [...] Soft Diet effective now Question Answer Comment ([facility]) Diet type Regular ([facility]) Diet type Restricted Modified Consistency: Mechanical Soft [...] Jara NP - 06/04/2018 8:00 AM CDT [facility] Geriatric Trauma Surgery Daily Progress Note Admit: [...] NP, 50 mg at 06/04/18809 ??? multivit sesxnrqh-meua-HH-calcium (THERA-M) tablet 1 tablet, 1 tablet, oral, [...] Soft Diet effective now Question Answer Comment ([facility]) Diet type Regular ([facility]) Diet type Restricted Modified Consistency: Mechanical Soft [...] Self Support System Children (Adwoa Xiong dtr [phone]) Legal Information Have you reviewed your Advance Directive and is it valid for this stay? No Advance Directive Patient does not have advance directive Prior Level of Functioning Living Arrangement Lives alone;Apartment Behavior Oriented Income Information Income Source [facility] Potential Discharge Needs Discharge Potential SNF Rehab Potential SNF Anticipated discharge level of care Nursing Home Facility Dialysis No Psychiatric services No Communications Patient choice (Home Health/Hospice) list given to patient/insurance verification representative? Yes ([facility] List) Fiduciary Responsibility Patient/Designated decision maker was informed of [facility] fiduciary relationship as necessary Health Insurance Coverage: [employer] Social History: Prior to admission the patient was living alone in his apartment in [place], [place]. Pt reports that he was functioning independently prior to this current hospitalization. Pt's daughter Adwoa Xiong has been at [facility] for support [phone]. Pt states that he has four daughters. Pt isretired. Additional Information: Social work met with the patient/family to obtain assessment information and discuss d/c planning needs. Social work informed the patient/family that d/c recommendations indicate transfer to SNF rehab. Social work provided information on the rehabilitation process and provided information on SNF rehab. Social work provided information on [facility] and emphasized the importance of continuity of care. Social work discussed d/c options to meet the patient's needs and provided a printed list of facilities for review. Patient/family are agreeable to plan and prefer placement at [facility] or [facility] in [place]. Allscripts have been sent. It was brought to 's attn by [facility] (once pt had been accepted) that pt is a registered sex offender and that they can not accommodate his needs. Pt will need a private room and private bathroom if he would be accepted at a facility. Facility must be covered under [employer] insurance as well. Dtr Adwoa aware of [...] 10+ facilities for placement. Adwoa Jefferson LMSW [facility] Social Work [phone] * Justa Clark NP - 06/03/2018 1:32 PM CDT [facility] Geriatric Trauma Surgery Daily Progress Note Admit: [...] 50 mg at 06/03/18 0954 ??? multivit oitsfngh-gnjs-XZ-calcium (THERA-M) tablet 1 tablet, 1 tablet, oral, [...] Soft Diet effective now Question Answer Comment ([facility]) Diet type Regular ([facility]) Diet type Restricted Modified Consistency: Mechanical Soft [...] images may or may not represent the [place] source data set and thus may contain [...] Clark NP - 06/02/2018 9:18 AM CDT [facility] Geriatric Trauma Surgery Daily Progress Note Admit: [...] NP, 50 mg at 06/02/18857 ??? multivit stojdewk-avur-KO-calcium (THERA-M) tablet 1 tablet, 1 tablet, oral, [...] the left hip. Electronically signed by: Luke Bsoton M.D. Xr Hips Bilateral W Pelvis 2 [...] images may or may not represent the [place] source data set and thus may contain [...] images may or may not represent the [place] source data set and thus may contain [...] CDTAssociated Order(s): IP CONSULT TO TRAUMA SURGERY [facility] Acute Care Surgery Consultation Encounter Date: 05/31/18 [...] Marc/Attending - Nancy Patient (home) Insurance: Payor: [employer] / Plan: [employer] / Product Type: *No Product type* [...] Diagnosis Date ??? Anxiety ??? Atrial fibrillation ([facility]) ??? Chronic renal failure ??? COPD (chronic obstructive pulmonary disease) ([facility]) ??? Depression ??? Diabetes mellitus ([facility]) ??? Diastolic dysfunction ??? Hypertension ??? On [...] mouth 2 (two) times a day. 05/02/18 Anegly Rowe MD multivitamin tablet,chewable Take by mouth. [...] extension 5/5 5/5 Wrist flexion 5/5 5/5 Home Appliance Technician 5/5 5/5 Interosseous of hand 5/5 5/5 [...] please call the Orthopaedic Surgery Consult Pager [phone] to be directed to the correct Orthopaedic Surgery resident. ?? If you know the resident's name on the appropriate orthopaedic surgery team, please use [email or web address] to page resident directly. documented in this encounter Nursing Notes * Ragini Joseph RN - 06/06/2018 4:48 PM CDT Patient discharged to [facility] via ambulance accompanied by self. * Ragini Joseph RN - 06/06/2018 3:27 PM CDT Report called to Dot at [facility] . * Ragini Joseph RN - 06/06/2018 [...] (Get away from me you crazy ladies.) Global Position System Technician Antonietta made aware of blood pressure. Scheduled [...] for patient safety. Ivelisse Childress RN 05/31/18 6637 * Eduarda Judge NP - 05/31/2018 7:39 PM CDT Bed: OBS-01 Expected date: Expected time: Means of arrival: Comments: Jensen Judge NP 08/04/18 1939 * Kimberly Cabrales NP - 05/31/2018 5:56 PM CDT Med list per [facility] pharmacy: Xanax 1 mg PO BID Omeprazole 40 mg PO BID Metoprolol 25 mg PO BID Gabapentin 100 mg PO TID Sertraline 50 mg PO daily Prednisone 5 mg, take one 1/2 tab daily Simvastatin 10 mg PO daily Kimberly Cabrales NP 05/31/18 3387 * Charlotte Vega RN - 05/31/2018 3:08 PM CDT Bed: [facility] Expected date: Expected time: Means of arrival: [...] and affect. Nursing note and vitals reviewed. [facility] MDM Number of Diagnoses or Management Options [...] TLSO brace and possible additional imaging per insurance healthcare consultant team. Pt was signed out to [...] RN - 05/31/2018 1:02 AM CDT Bed: [facility] Expected date: 05/30/18 Expected time: 11:47 PM Means of arrival: Ambulance Comments: Adwoa Tyler RN 05/31/18 0102 * Nunu Masterson RN - 05/30/2018 11:45 PM CDT Patient coming from [place]. Fall 2 days ago having back pain. No neuro deficits, moves all extremities. Found to have burst fracture of T12 and L1. Needing MRI. Accepted by MD Palmer with [facility]. MD Loya on the line for report from MD Weeks. Level 3 Nunu Masterson RN 05/30/18 3223 documented in this encounter Miscellaneous Notes * [...] Wound Status Healing Healing Healing Site Assessment Clean;Dry;Intact;[place] Clean;Moist;[place] Clean;Dry;Intact;[place] DUNIA Carla-wound Assessment Color normal for ethnicity;Dry;Intact;Flaky Flaky Color normal for ethnicity;Dry;Intact Closure Unapproximated Drainage Amount Scant Drainage Description Serosanguineous Drainage Odor No odor Interventions Cleansed;Site care Dressing Status Clean/Dry/Intact Changed;Drainage shadowing Clean/Dry/Intact Intact;Dry Dressing Foam Foam Foam Foam 06/04/18 0900 Wound Status Healing Site Assessment Clean;[place] Carla-wound Assessment Color normal for ethnicity Closure [...] Recent Administrations labetalol (NORMODYNE,TRANDATE) injection 10 mg [[id number]] Ordering Provider: Isaak Edward MD Status: Completed (Past End Date/Time) Ordered On: 05/31/18 0624 Starts/Ends: 05/31/18 0625 - 05/31/18 0640 Dose (Remaining/Total): 10 mg (0/1) Route: intravenous Frequency: Once Rate/Duration: -- / -- Timestamps Action Dose Route Other Information 05/31/18 0640 Given 10 mg intravenous Performed by: Nichol Wade RN acetaminophen (TYLENOL) tablet 1,000 mg [[id number]] Ordering Provider: Cheyenne Gresham MD Status: Completed [...] 5 mg (0/1) Route: nebulization Frequency: Once (manager social responsibility) Rate/Duration: -- / -- Timestamps Action Dose Route Other Information 05/31/181647 Given 5 mg nebulization Performed by: Aurora Conn, TECHNICAL DELIVERY MANAGER ipratropium (ATROVENT) 0.02 % nebulizer solution 0.5 mg [] Ordering Provider: Kimberly Cabrales NP Status: Completed (Past End Date/Time) Ordered On: 05/31/181605 Starts/Ends: 05/31/181606 - 05/31/181647 Dose (Remaining/Total): 0.5 mg (0/1) Route: nebulization Frequency: Once (manager social responsibility) Rate/Duration: -- / -- Timestamps Action Dose Route Other Information 05/31/181647 Given 0.5 mg nebulization Performed by: Aurora Conn, MARY morphine injection 4 mg [[id number]] Ordering Provider: Corazon Slaughter MD Status: Completed (Past End Date/Time) Ordered On: 05/31/182315 Starts/Ends: 05/31/182316 - 05/31/182322 Dose (Remaining/Total): 4 mg (0/1) Route: intravenous Frequency: Once Rate/Duration: -- / -- Timestamps Action Dose Route Other Information 05/31/182322 Given 4 mg intravenous Performed by: Ivelisse Childress RN haloperidol (HALDOL) injection 5 mg [[id number]] Ordering Provider: Paul Pires MD Status: Completed [...] Abrams RN sertraline (ZOLOFT) tablet 50 mg [[id number]] Ordering Provider: Antonietta Dunham NP Status: Dispensed Ordered On: 06/01/18649 Start: 06/01/18 09 Dose (Remaining/Total): 50 mg (--/--) Route: oral Frequency: Daily Rate/Duration: -- / -- Timestamps Action Dose Route Other Information 06/05/18812 Given 50 mg oral Performed by: Cheryl Benito RN simvastatin (ZOCOR) tablet 10 mg [[id number]] Ordering Provider: Antonietta Dunham NP Status: Dispensed Ordered On: 06/01/18649 Start: 06/01/182099 Dose (Remaining/Total): 10 mg (--/--) Route: oral Frequency: Nightly Rate/Duration: -- / -- Timestamps Action Dose Route Other Information 06/05/182148 Given 10 mg oral Performed by: Clarisse Abrams RN chlordiazePOXIDE (LIBRIUM) capsule 25 mg [[id number]] Ordering Provider: Shahnaz Coto MD Status: Dispensed [...] Woodall RN chlordiazePOXIDE (LIBRIUM) capsule 25 mg [[id number]] Ordering Provider: Shahnaz Coto MD Status: Dispensed [...] RN thiamine (VITAMIN B-1) tablet 100 mg [[id number]] Ordering Provider: Shahnaz Coto MD Status: Completed (Past End Date/Time) Ordered On: 06/01/18808 Starts/Ends: 06/01/18899 - 06/05/18812 Dose (Remaining/Total): 100 mg (0/5) Route: oral Frequency: Daily Rate/Duration: -- / -- Timestamps Action Dose Route Other Information 06/05/18812 Given 100 mg oral Performed by: Cheryl Benito RN folic acid (FOLVITE) tablet 1 mg [[id number]] Ordering Provider: Shahnaz Coto MD Status: Completed (Past End Date/Time) Ordered On: 06/01/18808 Starts/Ends: 06/01/18899 - 06/05/18813 Dose (Remaining/Total): 1 mg (0/5) Route: oral Frequency: Daily Rate/Duration: -- / -- Timestamps Action Dose Route Other Information 06/05/18813 Given 1 mg oral Performed by: Cheryl Benito RN multivit vzgrkrrw-decj-RO-calcium (THERA-M) tablet 1 tablet [[id number]] Ordering Provider: Shahnaz Coto MD Status: Dispensed Ordered On: 06/01/18808 Start: 06/01/18899 Dose (Remaining/Total): 1 tablet (--/--) Route: oral Frequency: Daily Rate/Duration: -- / -- Timestamps Action Dose Route Other Information 06/05/18812 Given 1 tablet oral Performed by: Cheryl Benito RN losartan (COZAAR) tablet 50 mg [[id number]] Ordering Provider: Justa Clark NP Status: Dispensed Ordered On: 06/02/18910 Start: 08/06/18 0945 Dose (Remaining/Total): 50 mg (--/--) Route: oral Frequency: Daily Rate/Duration: -- / -- Timestamps Action Dose Route Other Information 06/05/18812 Given 50 mg oral Performed by: Cheryl Beniot RN predniSONE (DELTASONE) tablet 5 mg [[id number]] Ordering Provider: Justa Clark NP Status: Dispensed Ordered On: 06/02/18910 Start: 06/02/18944 Dose (Remaining/Total): 5 mg (--/--) Route: oral Frequency: Daily Rate/Duration: -- / -- Timestamps Action Dose Route Other Information 06/05/18812 Given 5 mg oral Performed by: Cheryl Benito RN enoxaparin (LOVENOX) syringe 30 mg [[id number]] Ordering Provider: Justa Clark NP Status: Dispensed Ordered On: 06/02/1840 Start: 06/02/18 101 Dose (Remaining/Total): 30 mg (--/--) Route: subcutaneous Frequency: Every 12 hours scheduled Rate/Duration: -- / -- Timestamps Action Dose Route / Site Other Information 06/05/182148 Given 30 mg subcutaneous Left Lower Abdomen Performed by: Clarisse Abrams RN ipratropium (ATROVENT) 0.02 % nebulizer solution 0.5 mg [[id number]] Ordering Provider: Bernardino Penny MD Status: Dispensed Ordered On: 06/02/18 1454 Start: 06/02/18 1600 Dose (Remaining/Total): 0.5 mg (--/--) Route: nebulization Frequency: 4 times daily (manager social responsibility) Rate/Duration: -- / -- Timestamps Action Dose Route Other Information 06/05/18 1650 Given 0.5 mg nebulization Performed by: Harini Barroso RRT albuterol (PROVENTIL,VENTOLIN) 2.5 mg/0.5 mL nebulizer solution 2.5 mg [[id number]] Ordering Provider: Bernardino Penny MD Status: Dispensed Ordered On: 06/02/18 1454 Start: 06/02/18 1600 Dose (Remaining/Total): 2.5 mg (--/--) Route: nebulization Frequency: 4 times daily (manager social responsibility) Rate/Duration: -- / -- Timestamps Action Dose Route Other Information 06/05/18 1650 Given 2.5 mg nebulization Performed by: Harini Barroso, TECHNICAL DELIVERY MANAGER , OT Eval and Treat Last 72 [...] Mobility Equipment -- Wheeled walker;Cane Level of [place] -- Independent with ADLs and functional transfers ME with limited community amb using either WW or SC. 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 [facility] has been working with [place] to collaboratea plan for pt. [facility] has been contacted as well for additional [...] considered to be a sex offender in [place]. Pt has been denied placement by 15+ facilties and pt will require a private room/bathroom due to his status. Facility must be [id number] to any schools as well. Pt also [...] Home Mobility Equipment Wheeled walker;Cane Level of [place] Independent with ADLs and functional transfers ME with limited community amb using either WW or SC. Lives With Alone Receives Help From Family available electronics technology department chair Prior Function Comments Pt stated another fall [...] mobility;Pain;Orthopedic restrictions Problem List Comments PT diagnoses: [place] 5A, Pattern 4G, Pattern 6C PT Recommendation/Plan [...] -- -- Problem List Comments PT diagnoses: [place] 5A, Pattern 4G, Pattern 6C -- -- [...] 0659 06/02/18 07 - 06/03/18 0659 Total [id number] [id number] 0793-1206 Total Intake (ml) -- -- -- -- [...] Recent Administrations labetalol (NORMODYNE,TRANDATE) injection 10 mg [[id number]] Ordering Provider: Isaak Edward MD Status: Completed (Past End Date/Time) Ordered On: 05/31/18 0624 Starts/Ends: 05/31/18 0625 - 05/31/18 0640 Dose (Remaining/Total): 10 mg (0/1) Route: intravenous Frequency: Once Rate/Duration: -- / -- Timestamps Action Dose Route Other Information 05/31/18 0640 Given 10 mg intravenous Performed by: Nichol Wade RN acetaminophen (TYLENOL) tablet 1,000 mg [[id number]] Ordering Provider: Cheyenne Gresham MD Status: Completed [...] 5 mg (0/1) Route: nebulization Frequency: Once (manager social responsibility) Rate/Duration: -- / -- Timestamps Action Dose Route Other Information 05/31/181647 Given 5 mg nebulization Performed by: Aurora Conn, MARY ipratropium (ATROVENT) 0.02 % nebulizer solution 0.5 mg [] Ordering Provider: Kimberly Cabrales NP Status: Completed (Past End Date/Time) Ordered On: 05/31/181605 Starts/Ends: 05/31/181606 - 05/31/181647 Dose (Remaining/Total): 0.5 mg (0/1) Route: nebulization Frequency: Once (manager social responsibility) Rate/Duration: -- / -- Timestamps Action Dose [...] (LOPRESSOR) tablet 50 mg [] Ordering Provider: Antoinetta Dunham NP Status: Dispensed Ordered On: 06/01/18649 [...] 06/03/1855 Given 50 mg oral Performed by: Renetta Vazquez simvastatin (ZOCOR) tablet 10 mg [[id number]] Ordering Provider: Antonietta Dunham NP Status: Dispensed Ordered On: 06/01/18649 Start: 06/01/18 2100 Dose (Remaining/Total): 10 mg (--/--) Route: oral Frequency: Nightly Rate/Duration: -- / -- Timestamps Action Dose Route Other Information 06/02/182035 Given 10 mg oral Performed by: Mony Lee RN chlordiazePOXIDE (LIBRIUM) capsule 25 mg [[id number]] Ordering Provider: Shahnaz Coto MD Status: Dispensed [...] Woodall RN chlordiazePOXIDE (LIBRIUM) capsule 25 mg [[id number]] Ordering Provider: Shahnaz Coto MD Status: Dispensed [...] RN thiamine (VITAMIN B-1) tablet 100 mg [[id number]] Ordering Provider: Shahnaz Coto MD Status: Dispensed Ordered On: 06/01/18808 Starts/Ends: 06/01/18899 - 06/06/18858 Dose (Remaining/Total): 100 mg (2/5) Route: oral Frequency: Daily Rate/Duration: -- / -- Timestamps Action Dose Route Other Information 06/03/18953 Given 100 mg oral Performed by: Renetta Vazquez folic acid (FOLVITE) tablet 1 mg [[id number]] Ordering Provider: Shahnaz Coto MD Status: Dispensed Ordered On: 06/01/18808 Starts/Ends: 06/01/18899 - 06/06/1859 Dose (Remaining/Total): 1 mg (2/5) Route: oral Frequency: Daily Rate/Duration: -- / -- Timestamps Action Dose Route Other Information 06/03/18954 Given 1 mg oral Performed by: Renetta Vazquez multivit xdxnakfn-vajx-SL-calcium (THERA-M) tablet 1 tablet [[id number]] Ordering Provider: Shahnaz Coto MD Status: Dispensed Ordered On: 06/01/18808 Start: 06/01/18899 Dose (Remaining/Total): 1 tablet (--/--) Route: oral Frequency: Daily Rate/Duration: -- / -- Timestamps Action Dose Route Other Information 06/03/18953 Given 1 tablet oral Performed by: Renetta Vazquez losartan (COZAAR) tablet 50 mg [[id number]] Ordering Provider: Justa Clark NP Status: Dispensed Ordered On: 06/02/18910 Start: 06/02/1845 Dose (Remaining/Total): 50 mg (--/--) Route: oral Frequency: Daily Rate/Duration: -- / -- Timestamps Action Dose Route Other Information 06/03/18 0954 Given 50 mg oral Performed by: Renetta Vazquez predniSONE (DELTASONE) tablet 5 mg [[id number]] Ordering Provider: Justa Clark NP Status: Dispensed Ordered On: 06/02/18 0911 Start: 06/02/18 0945 Dose (Remaining/Total): 5 mg (--/--) Route: oral Frequency: Daily Rate/Duration: -- / -- Timestamps Action Dose Route Other Information 06/03/1855 Given 5 mg oral Performed by: Renetta Vazquez enoxaparin (LOVENOX) syringe 30 mg [[id number]] Ordering Provider: Justa Clark NP Status: Dispensed Ordered On: 06/02/18939 Start: 06/02/18 1015 Dose (Remaining/Total): 30 mg (--/--) Route: subcutaneous Frequency: Every 12 hours scheduled Rate/Duration: -- / -- Timestamps Action Dose Route / Site Other Information 06/03/1853 Given 30 mg subcutaneous Left Lower Abdomen Performed by: Renetta Vazquez ipratropium (ATROVENT) 0.02 % nebulizer solution 0.5 mg [[id number]] Ordering Provider: Bernardino Penny MD Status: Dispensed Ordered On: 06/02/181453 Start: 06/02/18 1600 Dose (Remaining/Total): 0.5 mg (--/--) Route: nebulization Frequency: 4 times daily (manager social responsibility) Rate/Duration: -- / -- Timestamps Action Dose Route Other Information 06/03/18 075 Given 0.5 mg nebulization Performed by: Sheridan Mccauley RRT albuterol (PROVENTIL,VENTOLIN) 2.5 mg/0.5 mL nebulizer solution 2.5 mg [[id number]] Ordering Provider: Bernardino Penny MD Status: Dispensed Ordered On: 06/02/181453 Start: 06/02/18 1600 Dose (Remaining/Total): 2.5 mg (--/--) Route: nebulization Frequency: 4 times daily (manager social responsibility) Rate/Duration: -- / -- Timestamps Action Dose Route Other Information 06/03/18 0754 Given 2.5 mg nebulization Performed by: Sheridan Mccauley, TECHNICAL DELIVERY MANAGER , OT Eval and Treat Last 72 [...] he is feeling that day. Level of Adrian Independent with ADLs and functional transfers;Needs assistance [...] dm and ETOH. Pt is here at [facility] for a broken back. Pt is agitated. Pt's breath sounds: diminished/ clear. Pt states that he does spirvia at home sometimes. Pt is being changed to albuterol 2.5mg q4 prn and atrovent o.5mg q4 prn at pt's request and [employer]'s approval. * Assessment & Plan Note - [...] L1 burst fracture. Pt was transferred to [facility] for further eval. No neuro deficit noted [...] removed By: Kimberly Cabrales NP Time: 05/31 0485 Comment: Spoke with ortho - OK to remove TSLO brace as long as patient remains supine for MRI. Spoke with ACCS Bernardino FUENTES regarding admission for PT/Ot. Accepted and order placed for admission. ACCS to assess pt in ED prior to floor placement By: Kimberly Cabrales NP Time: 05/31 6813 Comment: Called [facility] - Pt is NOT on anticoagulation [...] CDT * ED Observation Provider Note - Eudarda Judge NP - 05/31/2018 6:54 PM CDT [...] removed By: Kimberly Cabrales NP Time: 05/31 0885 Comment: Spoke with ortho - OK to remove TSLO brace as long as patient remains supine for MRI. Spoke with ACCS Bernardino FUENTES regarding admission for PT/Ot. Accepted and order placed for admission. ACCS to assess pt in ED prior to floor placement By: Kimberly Cabrales NP Time: 05/31 7384 Comment: Called [facility] - Pt is NOT on anticoagulation [...] L1 burst fracture. Pt was transferred to [facility] for further eval. No neuro deficit noted [...] fracture of twelfth thoracic vertebra, initial encounter ([facility]) 3. Closed fracture dislocation of lumbar spine, initial encounter ([facility]) 4. Accidental fall, initial encounter I, Denise [...] CDT) Creatinine 1.25 0.80 - 1.30 mg/dL [facility] Blood specimen (specimen) 06/05/2018 10:19 PM CDT 06/05/2018 10:46 PM CDT Prosper [facility] - 06/05/2018 11:11 PM CDT us Bernardino Penny MD LAB BLOOD ORDERABLES Fin al Result Performing Organization Address City/[facility]/ZIP Co de Phone Number [facility] [place] [address] * POCT glucose (06/03/2018 11:32 AM CDT) Glucose, POC 169 70 - 199 mg/dL [facility] Blood specimen (specimen) 06/03/2018 11:32 AM CDT 06/03/2018 11:32 AM CDT Narrative [facility] - 06/03/2018 11:33 AM CDT us Bernardino Penny MD LAB POCT ORDERABLES - DE VICE Final Result Performing Organization Address City/[facility]/ZIP Co de Phone Number [facility] [place] [address] * POCT glucose (06/03/2018 8:10 AM CDT) Glucose, POC 117 70 - 199 mg/dL [facility] Blood specimen (specimen) 06/03/2018 8:10 AM CDT 06/03/2018 8:10 AM CDT Narrative [facility] - 06/03/2018 8:14 AM CDT us Bernardino Penny MD LAB POCT ORDERABLES - DE VICE Final Result [facility] [place] [address] * XR Chest Pa Lateral 2 Views [...] CDT) PT 11.4 8.5 - 13.0 sec [facility] INR 0.99 0.80 - 1.21 [facility] Comment: Interpretive Data Inpatient therapeutic ranges* Atrial fibrillation ?2.0-3.0 INR Venous thrombo-embolism ?2.0-3.0 INR Bioprosthetic heart valve ?* Mechanical heart valve, bileaflet or tilting disk,aortic position ? 2.0-3.0 INR All other,or bileaflet or tilting disk, in mitral position ? 2.5-3.5 INR *See the pharmacy resource directory (PHRED) for an updated copy of the Tool Book at [email or web address] Current Interpretive Data was last revised 2012. Blood specimen (specimen) 06/01/2018 9:02 PM CDT 06/01/2018 9:52 PM CDT [facility]ative [facility] 06/01/[facility] 10:24 PM CDT us Bernardino Penny MD LAB BLOOD ORDERABLES Fin al Result Performing Organization Address [facility] Co de Phone Number [facility] [place] [address] * aPTT (06/01/2018 9:02 PM CDT) [facility] Signature aPTT 36.5 25.0 - 37.0 sec [facility] Comment: Interpretive Data Therapeutic heparin range:60.0 - 94.0 sec based on correlation with therapeutic heparin activity range of 0.3 -0.7 Units/mL. Current interpretive data was last revised on 2011. Blood specimen (specimen) 06/01/2018 9:02 PM CDT 06/01/2018 9:52 PM CDT Narrative [facility] - 06/01/2018 10:24 PM CDT us Bernardino Penny MD LAB BLOOD ORDERABLES Fin al Result Performing Organization Address City/[facility]/ZIP Co de Phone Number [facility] [place] [address] * Basic metabolic panel (06/01/2018 9:02 PM CDT) Pathologist [facility] Sodium 138 135 - 145 mmol/L [facility] Potassium, pl 4.0 3.3 - 4.9 mmol/L [facility] Chloride 100 97 - 110 mmol/L [facility] CO2 27 22 - 32 mmol/L [facility] Anion gap 11 2 - 15 mmol/L [facility] BUN 17 8 - 25 mg/dL [facility] Creatinine 1.26 0.80 - 1.30 mg/dL [facility] Glucose 106 70 - 199 mg/dL [facility] Comment: Interpretive Data Fasting glucose >/= 126 [...] 2017. Calcium 9.0 8.5 - 10.3 mg/dL [facility] Blood specimen (specimen) 06/01/2018 9:02 PM CDT 06/01/2018 9:55 PM CDT Narrative [facility] - 06/01/2018 10:21 PM CDT us Antonietta Dunham NP LAB BLOOD ORDERABLES Ellen l Result Performing Organization Address [facility]/ZIP Co de Phone Number [facility] [place] [address] * (ABNORMAL) CBC without differential (06/01/2018 9:02 PM CDT) Pathologist [facility] WBC 13.4(H) 3.8 - 9.9 K/cumm [facility] Hgb 14.0 13.0 - 17.5 g/dL [facility] Hct 43.5 38.9 - 50.3 % [facility] Plt 236 150 - 400 K/cumm [facility] MPV 9.6 9.1 - 12.3 fL [facility] RBC 4.77 4.30 - 5.80 M/cumm [facility] MCV 91.2 81.3 - 96.4 fL [facility] MCH 29.4 27.1 - 33.3 pg [facility] MCHC 32.2(L) 32.3 - 35.7 g/dL [facility] RDW CV 13.4 11.1 - 14.9 % [facility] RDW SD 44.7 35.7 - 48.1 fL [facility] NRBC abs 0.00 0.00 - 0.01 K/cumm [facility] Blood specimen (specimen) 06/01/2018 9:02 PM CDT 06/01/2018 9:55 PM CDT Narrative [facility] - 06/01/2018 10:05 PM CDT us Antonietta Dunham NP LAB BLOOD ORDERABLES Ellen christian Result [facility] [place] [address] * XR Spine Thoracic 2 Views (06/01/2018 [...] Glucose, POC 123 70 - 199 mg/dL [facility] Blood specimen (specimen) 06/01/2018 11:56 AM CDT 06/01/2018 11:56 AM CDT Narrative ERNESTO [facility] - 06/01/2018 11:58 AM CDT us Bernardino Penny MD LAB POCT ORDERABLES - DE VICE Final Result [facility] Department [place] [address] * POCT glucose (06/01/2018 7:13 AM CDT) Glucose, POC 102 70 - 199 mg/dL [facility] Blood specimen (specimen) 06/01/2018 7:13 AM CDT 06/01/2018 7:13 AM CDT Narrative [facility] - 06/01/2018 7:14 AM CDT us Bernardino Penny MD LAB POCT ORDERABLES - DE VICE Final Result ERNESTO [facility] [place] [address] * XR Pelvis 3 or More Views [...] by: Luke Boston M.D. us Eduarda Judge [employer] IMG XR PROCEDURES Fi nal Result * [...] images may or may not represent the [place] source data set and thus may contain changes that may lower the accuracy of this second-opinion interpretation. Electronically signed by: Annabelle Canseco M.D. Narrative 06/01/2018 11:46 AM CDT EXAMINATION: RADIOLOGY CONSULTATION ON OUTSIDE IMAGING STUDY STUDY INITIALLY PERFORMED: 05/30/2018 at [facility]. TYPE OF STUDY: Multiple computed tomographic [...] IMAGING STUDY STUDY INITIALLY PERFORMED: 05/30/2018 at [facility]. TYPE OF STUDY: Multiple computed tomographic [...] images may or may not represent the [place] source data set and thus may contain [...] of the left hip. Electronically signed by: Luek Boston M.D. Narrative 06/01/2018 9:20 AM CDT [...] signed by: Luke Boston M.D. Kimberly Cabrales [employer] IMG XR PROCEDURES Final Resul t * [...] CERNER BJ Neutrophil pct 78.5 % [facility]ER [facility] Comment: Interpretive Data Percent cell count reference ranges are not reported, since discordance with absolute values may lead to misinterpretation of CBC data. Current Interpretive Data was last revised on 2018. Imm gran pct 0.4 % [facility] Comment: Interpretive Data Percent cell count reference ranges are not reported, since discordance with absolute values may lead to misinterpretation of CBC data. Current Interpretive Data was last revised on 2018. Lymphocyte pct 10.8 % C[facility] Comment: Interpretive Data Percent cell count reference [...] on 2018. Eosinophil pct 1.1 % [facility] Comment: Interpretive Data Percent cell count reference ranges are not reported, since discordance with absolute values may lead to misinterpretation of CBC data. Current Interpretive Data was last revised on 2018. Basophil pct 0.4 % [facility] Comment: Interpretive Data Percent cell count reference ranges are not reported, since discordance with absolute values may lead to misinterpretation of CBC data. Current Interpretive Data was last revised on 2018. Blood specimen (specimen) 05/31/2018 1:18 AM CDT 05/31/2018 2:43 AM CDT Narrative [facility] - 05/31/2018 2:51 AM CDT us Isaak Edward MD LAB BLOOD ORDERABLES Final Result [facility] [place] [address] * (ABNORMAL) Basic metabolic panel (05/31/2018 1:18 AM CDT) Sodium 133(L) 135 - 145 mmol/L [facility] Potassium, pl 4.1 3.3 - 4.9 mmol/L [facility] Comment:Hemolyzed; (++); pot assium value may be falsely elevated by as much as 0.3 - 0.5 mmol/L. Suggest redraw and reanalysis. Chloride 96(L) 97 - 110 mmol/L [facility] CO2 23 22 - 32 mmol/L [facility] Anion gap 14 2 - 15 mmol/L [facility] BUN 11 8 - 25 mg/dL [facility] Creatinine 0.96 0.80 - 1.30 mg/dL [facility] Glucose 76 70 - 199 mg/dL [facility] Comment: Interpretive Data Fasting glucose >/= 126 [...] 2017. Calcium 8.7 8.5 - 10.3 mg/dL [facility] Blood specimen (specimen) 05/31/2018 1:18 AM CDT 05/31/2018 2:43 AM CDT Narrative [facility] - 05/31/2018 3:11 AM CDT THE BJ COLLECTION LOCATION IS [facility] CC-[id number] us Isaak Edward MD LAB BLOOD ORDERABLES Final Result [facility] [place] [address] * (ABNORMAL) CBC with auto differential (05/31/2018 1:18 AM CDT) WBC 12.8(H) 3.8 - 9.9 K/cumm [facility] Hgb 13.0 13.0 - 17.5 g/dL [facility] Hct 38.5(L) 38.9 - 50.3 % [facility] Plt 196 150 - 400 K/cumm [facility] MPV 10.1 9.1 - 12.3 fL [facility] RBC 4.38 4.30 - 5.80 M/cumm [facility] MCV 87.9 81.3 - 96.4 fL [facility] MCH 29.7 27.1 - 33.3 pg [facility] MCHC 33.8 32.3 - 35.7 g/dL [facility] RDW CV 13.0 11.1 - 14.9 % [facility] RDW SD 42.1 35.7 - 48.1 fL [facility] NRBC abs 0.00 0.00 - 0.01 K/cumm [facility] Blood specimen (specimen) 05/31/2018 1:18 AM CDT 05/31/2018 2:43 AM CDT Narrative [facility] - 05/31/2018 2:51 AM CDT THE BJ COLLECTION LOCATION IS [facility] CC-[id number] us Isaak Edward MD LAB BLOOD ORDERABLES Final Result [facility] [place] [address] documented in this encounter Visit Diagnoses Diagnosis Acute midline low back pain, with sciatica presence unspecified- Primary Closed stable burst fracture of twelfth thoracic vertebra, initial encounter ([facility]) Closed fracture dislocation of lumbar spine, initial encounter ([facility]) Accidental fall, initial encounter Atrial flutter ([facility]) ([facility] Atrial flutter T12 burst fracture ([facility]) L1 vertebral fracture ([facility]) ([facility]) ETOH abuse Nondependent alcohol abuse, unspecified drinking behavior COPD (chronic obstructive pulmonary disease) ([facility]) Chronic airway obstruction, not elsewhere classified Essential hypertension, benign On home oxygen therapy Dependence on supplemental oxygen Neuropathy ([facility]) Mononeuritis of unspecified site Major depressive disorder [...] mg 2.5 mg, nebulization, Every 4 hours (manager social responsibility), First dose (after last modification) on 06/02/18 at 1200 Given 06/02/2018 12:07 PM CDT 2.5 mg albuterol (PROVENTIL,VENTOLIN) 2.5 mg/0.5 mL nebulizer solution 2.5 mg 2.5 mg, nebulization, 4 times daily (manager social responsibility), First dose (after last modification) on 06/02/18 at 1600 Given 06/06/2018 3:25 PM CDT 2.5 mg Given 06/06/2018 11:10 AM CDT 2.5 mg Given 06/05/2018 4:50 PM CDT 2.5 mg albuterol (PROVENTIL,VENTOLIN) 2.5 mg/0.5 mL nebulizer solution 5 mg 5 mg, nebulization, Once (manager social responsibility), On 05/31/18 at 1607, For 1 dose, [...] solution 0.5 mg 0.5 mg, nebulization, Once (manager social responsibility), On 05/31/18 at 1607, For 1 dose, Indications: COPD ExacerbationIndications:COPD Exacerbation Given 05/31/2018 4:48 PM CDT 0.5 mg ipratropium (ATROVENT) 0.02 % nebulizer solution 0.5 mg 0.5 mg, nebulization, Every 4 hours while awake (manager social responsibility), First dose (after last modification) on Sat06/02/18 at 1200 Given 06/02/2018 12:07 PM CDT 0.5 mg ipratropium (ATROVENT) 0.02 % nebulizer solution 0.5 mg 0.5 mg, nebulization, 4 times daily (manager social responsibility), First dose (after last modification) on Sat06/02/18 [...] 05/31/2018 11:23 PM CDT 4 mg multivit wezbbrcd-gygj-BE-calcium (THERA-M) tablet 1 tablet 1 tablet, oral, [...] 1) 2.5 mg, nebulization, 4 times daily (manager social responsibility), First dose (after last modification) on Sat06/02/18 at 1600 0941 (Given - Provider: Mony Brock, TECHNICAL DELIVERY MANAGER - Comment: care coordination)1407 (Given - Provider: Mony Brock, TECHNICAL DELIVERY MANAGER - Comment: care coordination)1620 (Given - Provider: Shar Barahona, TECHNICAL DELIVERY MANAGER)1959 (Given - Provider: Adrianna Eckert, TECHNICAL DELIVERY MANAGER) 0733 (Given - Provider: Harini Barroso, TECHNICAL DELIVERY MANAGER)1351 (Not Given - Provider: Harini Barroso, TECHNICAL DELIVERY MANAGER - Reason: Patient not available)1650 (Given - Provider: Harini Barroso, TECHNICAL DELIVERY MANAGER)2057 (Not Given - Provider: Kayla Valladares RRT - Reason: Patient/family refused) 0901 (Not Given - Provider: Edwar Zapata, TECHNICAL DELIVERY MANAGER - Reason: Patient/family refused)1110 (Given - Provider: [...] 1) 0.5 mg, nebulization, 4 times daily (manager social responsibility), First dose (after last modification) on 06/02/18 at 1600 0942 (Given - Provider: Mony Brock, TECHNICAL DELIVERY MANAGER - Comment: care coordination)1407 (Given - Provider: Mony Brock TECHNICAL DELIVERY MANAGER - Comment: care coordination)1620 (Given - Provider: Shar Barahona, TECHNICAL DELIVERY MANAGER)1959 (Given - Provider: Adrianna Eckert, TECHNICAL DELIVERY MANAGER) 0733 (Given - Provider: Harini Barroso, TECHNICAL DELIVERY MANAGER)1351 (Not Given - Provider: Harini Barroso TECHNICAL DELIVERY MANAGER - Reason: Patient not available)1650 (Given - Provider: Harini Barroso TECHNICAL DELIVERY MANAGER)205 (Not Given - Provider: Kayla Valladares, TECHNICAL DELIVERY MANAGER - Reason: Patient/family refused) 0901 (Not Given - Provider: Edwar Zapata, TECHNICAL DELIVERY MANAGER - Reason: Patient/family refused)1110 (Given - Provider: Edwar Zapata, TECHNICAL DELIVERY MANAGER)1525 (Given - Provider: Poncho Shaffer, MARY) lidocaine [...] (Given - Provider: Ragini Joseph RN) multivit ixsffkoe-zrbf-KH-calc ium (THERA-M) tablet 1 tablet 1 tablet, [...] RN) 0107 (Given - Provider: Clarisse Abrams RN)2682 (Given - Provider: Clarisse Abrams, PAUL)8025 (Given - Provider: Ragini Joseph, RN)7242 (Given - Provider: Ragini Joseph, RN) Linked Groups Order Group 1: albuterol (PROVENTIL,VENTOLIN) 2.5 mg/0.5 mL nebulizer solution 2.5 mgJump to med 2.5 mg, nebulization, 4 times daily (manager social responsibility), First dose (after last modification) on Sat06/02/18 at 1600 And ipratropium (ATROVENT) 0.02 % nebulizer solution 0.5 mgJump to med 0.5 mg, nebulization, 4 times daily (manager social responsibility), First dose (after last modification) on Sat06/02/18 [...] 05/31/2018 documented in this encounter Care Teams Tattoo Technician Relationship Specialty Start Date End Date Leoncio Kilpatrick MD [address] [place] [address] PCP - General 04/19/17 06/08/18 documented as of this encounter
--- OUTSIDE RECORDS SUMMARY | 2024-10-22 12:05 | XMS_ITS | Encounter Summary ---
Author Organization [facility] Healthcare Address [address] [place] [address] Care Team Providers Care Parlor Maid Name Role Phone Leoncio Kilpatrick MD Primary Care Provider [phone] Encounter Details Date Type Department Care Team (Latest Contact Info) Description 05/31/2018 1:15 AM CDT - 05/31/2018 11:59 PM CDT Hospital Encounter [facility] [address] [place] [id number] Discharge Disposition: Discharge to home or self care Social History Tobacco Use Types Packs/Day Years Used Date Smoking Tobacco: Former Alcohol Use Standard Drinks/Week Comments Yes 0 (1 standard drink = 0.6 oz pur e alcohol) 1OR 2 DAILY Sex and Gender Information Value Date Recorded Sex Assigned at Not on file 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 Electronically signed by: Annabelle Canseco M.D. us Isaak Edward MD IMG CT PROCEDURES Final Re sult documented in this encounter Visit Diagnoses Not on filedocumented in this encounter Care Teams Parlor Maid Relationship Specialty Start Date End Date Leoncio Kilpatrick MD [address] [place] [address] PCP - General 04/19/17 06/08/18 documented as of this encounter
--- OUTSIDE RECORDS SUMMARY | 2024-10-22 12:05 | XMS_ITS | Encounter Summary ---
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
--- OUTSIDE RECORDS SUMMARY | 2024-10-22 12:05 | XMS_ITS | Encounter Summary ---
Author Organization [facility] Address [address] [facility] [address] [place] [address] Care Team Providers Care Er Tech Name Role Phone Leoncio Kilpatrick MD Primary Care Provider [phone] Encounter Details Date Type Department Care Team (Late st Contact Info) Description 03/04/2018 Telephone [facility] [address] [address] [address] [place] [address] Angely Rowe MD [address] [place] [address] Social History Tobacco Use Types Packs/Day Years Used Date Smoking Tobacco: Former Alcohol Use Standard Drinks/Week Comments Yes 0 (1 standard drink = 0.6 oz pur e alcohol) 1OR 2 DAILY Sex and Gender Information Value Date Recorded Sex Assigned at Not on file 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 Rowe. Needs Metoprolol rx sent to [facility] in [place]. documented in this encounter Plan of Treatment Not on file documented as of this encounter Visit Diagnoses Not on filedocumented in this encounter Discontinued Medications Medication Sig Discontinue Reason Start Date End Da te metoprolol (LOPRESSOR) 25 mg tablet TAKE 1 TABLET BY MOUTH EVERY 12 HOURS Reorder 07/23/2017 03/04/2018 documented as of this encounter Care Teams Er Tech Relationship Specialty Start Date End Date Leoncio Kilpatrick MD [address] [place] [address] PCP - General 04/19/17 06/08/18 documented as of this encounter
--- OUTSIDE RECORDS SUMMARY | 2024-10-22 12:05 | XMS_ITS | Encounter Summary ---
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 Estimated glomerular filtration [...] LAB BLOOD ORDERABLES Final Res ult ERNESTO SWETE [address] [address] Department [place] [address] * Basic metabolic panel (04/19/2017 [...] ORDERABLES Final Res ult Performing Organization Address City/[facility]/ZIP Co de Phone Number ERNESTO [address] [place] [address] * (ABNORMAL) Differential, auto (04/19/2017 [...] ORDERABLES Final Res ult Performing Organization Address City/[facility]/ZIP Co de Phone Number ERNESTO SWEET [address] [address] Department [place] [address] * (ABNORMAL) CBC with auto differential (04/19/2017 3:25 AM CDT) WBC 15.96(H) 3.80 - 9.90 K/cumm [facility] CH RBC 3.65(L) 4.30 - 5.80 M/cumm [facility] CH Hgb 10.4(L) 13.0 - 17.5 g/dL [facility] Hct 32.9(L) 38.9 - 50.3 % [facility] MCV 90.1 81.3 - 96.4 fL [facility] MCH 28.5 27.1 - 33.3 pg [facility] MCHC 31.6(L) 32.3 - 35.7 g/dL [facility] RDW CV 14.5 11.1 - 14.9 % [facility] RDW SD 48.0 35.7 - 48.1 fL [facility] Plt 311 150 - 400 K/cumm [facility] MPV 8.8(L) 9.1 - 12.3 fL [facility] NRBC 0.0 0.0 - 0.2 % [facility] NRBC abs 0.00 0.00 - 0.01 K/cumm [facility] Blood specimen (specimen) 04/19/2017 3:25 AM CDT 04/19/2017 5:21 AM CDT us Notinfile Unknown LAB BLOOD ORDERABLES Final Res ult [facility] [address] [address] Department [place] [address] * DISCHARGE LABORATORY CUMULATIVE REPORT (04/19/2017 12:00 AM CDT) Narrative 04/19/2017 12:00 AM CDT Ordered by an unspecified provider. Historical Provider LAB BLOOD ORDERABLES Ellen l Result documented in this encounter Visit Diagnoses Not on filedocumented in this encounter Care Teams Hiv Nurse Relationship Specialty Start Date End Date Leoncio Kilpatrick MD [address] [place] [address] PCP - General 04/19/17 06/08/18 documented as of this encounter
--- OUTSIDE RECORDS SUMMARY | 2024-10-22 12:05 | XMS_ITS | Encounter Summary ---
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); Dehiscence of amputation stump (CMS/HCC); Amputation of limb(s) as the cause of abnormal reaction of the patient, or of later complication, without mention of misadventure at the time of the procedure; Bedroom in detention as place of occurrence of external cause Social History Tobacco Use Types Packs/Day Years Used Date Smoking Tobacco: Never Assessed Sex and Gender Information Value Date Recorded Sex Assigned at Not on file Legal Sex Male 3:11 AM EKG MONITOR TECH Gender Identity Not on file Sexual Orientation [...] the time of the procedure Bedroom in detention as place of occurrence of external cause documented in this encounter Care Teams Electric Meter Repairer Relationship Specialty Start Date End Date Master Colbert MD [address] [place] [address] PCP - General 12/16/13 04/18/17 documented as of this encounter
--- OUTSIDE RECORDS SUMMARY | 2024-10-22 12:05 | XMS_ITS | Encounter Summary ---
Author Organization [facility] Healthcare Address [address] [place] [address] Care Team Providers Care Training Development Director Name Role Phone Master Colbert MD Primary Care Provide r Encounter Details Date Type Department Care Team (Late st Contact Info) Description 10/13/2016 9:42 AM SUPERVISOR SEWER MAINTENANCE - 10/13/2016 11:06 AM [facility] Hospital Encounter [facility] Vimal Moe MD [address] [place] [address] Postprocedural hemorrhage of a circulatory system organ or structure following other procedure; Other complications of amputation stump (CMS/HCC); Amputation of limb(s) as the cause of abnormal reaction of the patient, or of later complication, without mention of misadventure at the time of the procedure; [facility] as place of occurrence of external cause; 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); Elevated blood pressure reading without diagnosis of hypertension Social History Tobacco Use Types Packs/Day Years Used Date Smoking Tobacco: Never Assessed Sex and Gender Information Value Date Recorded Sex Assigned at Not on file Legal Sex Male 3:11 AM SUPERVISOR SEWER MAINTENANCE Gender Identity Not on file Sexual Orientation [...] misadventure at the time of the procedure [facility] as place of occurrence of external cause Acquired absence of other right toe(s) (HCC) Elevated blood pressure reading without diagnosis of hypertension documented in this encounter Care Teams Training Development Director Relationship Specialty Start Date End Date Master Colbert MD [address] [place] [address] PCP - General 12/16/13 04/18/17 documented as of this encounter
--- OUTSIDE RECORDS SUMMARY | 2024-10-22 12:05 | XMS_ITS | Encounter Summary ---
Author Organization [facility] Address [address] [facility] [address] [place] [address] Care Team Providers Care Search Analyst Name Role Phone Leoncio Kilpatrick MD Primary Care Provider [phone] Encounter Details Date Type Department Care Team (Late st Contact Info) Description 03/28/2018 Orders Only [facility] Cardiology [address] [place] [address] ProviderSotero MD [address] [place] [phone] Social History Tobacco Use Types Packs/Day Years Used Date Smoking Tobacco: Former Alcohol Use Standard Drinks/Week Comments Yes 0 (1 standard drink = 0.6 oz pur e alcohol) 1OR 2 DAILY Sex and Gender Information Value Date Recorded Sex Assigned at Not on file Legal 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
--- OUTSIDE RECORDS SUMMARY | 2024-10-22 12:05 | XMS_ITS | Encounter Summary ---
Author Organization [facility] Healthcare Address [address] [place] [address] Care Team Providers Care Slubber Tender Name Role Phone Master Colbert MD Primary Care Provide r Encounter Details Date Type Department Care Team (Latest Contact Info) Description 10/13/2016 9:22 AM SOFTWARE TEST TECHNICIAN - 10/13/2016 11:59 PM SOFTWARE TEST TECHNICIAN Hospital Encounter [facility] CLINCONV Postprocedural hemorrhage of a circulatory system organ or structure following other circulatory system procedure; Other surgical procedures as the cause of abnormal reaction of the patient, or of later complication, without mention of misadventure at the time of the procedure; long-term as place of occurrence of external cause Social History Tobacco Use Types Packs/Day Years Used Date Smoking Tobacco: Never Assessed Sex and Gender Information Value Date Recorded Sex Assigned at Not on file Legal Sex Male 3:11 AM SOFTWARE TEST TECHNICIAN Gender Identity Not on file Sexual [...] misadventure at the time of the procedure long-term as place of occurrence of external cause documented in this encounter Care Teams Slubber Tender Relationship Specialty Start Date End Date Master Colbert MD [address] [place] [address] PCP - General 12/16/13 04/18/17 documented as of this encounter
--- OUTSIDE RECORDS SUMMARY | 2024-10-22 12:05 | XMS_ITS | Encounter Summary ---
Author Organization [facility] Address [address] [facility] [address] [facility] [address] [place] [address] Care Team Providers Care Utility Bagger Name Role Phone Master Colbert MD Primary Care Provide r Reason for Visit * Reason Comments Hospital Follow Up DIZZINESS, FALLS Encounter Details Date Type Department Care Team (Late st Contact Info) Description 04/08/2017 11:00 AM CDT Office Visit [facility] [address] [address] [address] [place] [address] Angely Rowe MD [address] [place] [address] Atrial flutter, unspecified type (CMS/HCC) (Primary [...] file Legal Sex Male 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
== END 2024-10-14 23:10 | disposition home or self-care (01) | DRG 812 ==
LOC: ANHED 18:05 → ANH3MEDSUR 18:45
PROVIDERS: Internal Medicine Gastroenterology; Physician Assistant; Admitting Provider Internal Medicine; Emergency Provider Emergency Medicine; PCP Emergency Medicine; Visit Provider Nurse Practitioner Acute Care
PROC: 0DJ08ZZ Inspection of Upper Intestinal Tract, Via Natural or Artificial Opening Endoscopic (ICD-10-PCS; CPT 45378; principal; 2024-10-14 15:00)
DX: D50.0 Iron deficiency anemia secondary to blood loss (chronic) (principal); I13.0 Hypertensive heart and chronic kidney disease with heart failure and stage 1 through stage 4 chronic kidney disease, or unspecified chronic kidney disease; S22.32XA Fracture of one rib, left side, initial encounter for closed fracture; J96.10 Chronic respiratory failure, unspecified whether with hypoxia or hypercapnia; I50.32 Chronic diastolic (congestive) heart failure; I48.19 Other persistent atrial fibrillation; N18.4 Chronic kidney disease, stage 4 (severe); R19.5 Other fecal abnormalities; D63.1 Anemia in chronic kidney disease; I27.20 Pulmonary hypertension, unspecified; J44.9 Chronic obstructive pulmonary disease, unspecified; E11.22 Type 2 diabetes mellitus with diabetic chronic kidney disease; E11.42 Type 2 diabetes mellitus with diabetic polyneuropathy; E78.2 Mixed hyperlipidemia; E11.319 Type 2 diabetes mellitus with unspecified diabetic retinopathy without macular edema; E87.5 Hyperkalemia; K58.9 Irritable bowel syndrome, unspecified; K57.30 Diverticulosis of large intestine without perforation or abscess without bleeding; K21.9 Gastro-esophageal reflux disease without esophagitis; N40.0 Benign prostatic hyperplasia without lower urinary tract symptoms; M19.90 Unspecified osteoarthritis, unspecified site; F10.10 Alcohol abuse, uncomplicated; F41.9 Anxiety disorder, unspecified; F32.A Depression, unspecified; F17.210 Nicotine dependence, cigarettes, uncomplicated; Z99.81 Dependence on supplemental oxygen; Q80.0 Ichthyosis vulgaris; Z79.01 Long term (current) use of anticoagulants; Z86.73 Personal history of transient ischemic attack (TIA), and cerebral infarction without residual deficits; Z89.512 Acquired absence of left leg below knee; Z89.431 Acquired absence of right foot; Z99.3 Dependence on wheelchair
CPT/HCPCS: 36415; 36430; 71101; 80048; 80053; 82948; 83036; 83735; 85025; 85027; 86850; 86900; 86901; 86920; 94640; 96361; 96372; 96374; 96375; 99285; A9270; G0378; J2003; J2704; J7050; J7120; J7512; P9016; Q5105

== ENCOUNTER 2024-10-29 15:20 | Inpatient (IN) | payer MEDICARE, MEDICAID, SELFPAY ==
[2024-10-29] VITALS (9 sets, daily range): BP systolic 130–169; BP diastolic 63–95; PULSE 74–82; RESP 17–24; TEMP 36.2; O2SAT 97–100
--- NOTE | ~2024-10-29 | XR_ITS ---
XR chest 1V portable Ordering provider: Master Copeland History: 78 years Male with . left effusion . Comparison: November 02, 2024 FINDINGS: MEDIASTINUM: The cardiac silhouette is slightly enlarged. Congestive emily. LUNGS: No pneumothorax. Opacification the left lower lobe area suggestive of atelectasis versus pneum onia with pleural effusion. Bilateral interstitial changes suggestive of pulmonary edema. Pneumonitis is not excluded. OTHER: No free air under the diaphragm. IMPRESSION: Cardiomegaly with cardiac decompensation and pulmonary edema. Pneumonitis cannot be excluded. Left basilar atelectasis versus pneumonia with pleural effusion. Reviewed, dictated and finalized at location A. CTOR NURSES' REGISTRY IMPRESSION: Cardiomegaly with cardiac decompensation and pulmonary edema. Pneumonitis canno t be excluded. Left basilar atelectasis versus pneumonia with pleural effusion.
--- NOTE | ~2024-10-29 | XR_ITS ---
XR chest 1V Ordering provider: Fabi West PA-C History: 78 years Male with . dyspnea . Comparison: July 27, 2024 FINDINGS: MEDIASTINUM: The cardiac silhouette is slightly enlarged. Prominent emily. LUNGS: No pneumothorax. Left basilar atelectasis versus pneumonia with pleural effusion. OTHER: No free air under the diaphragm. Degenerative spine. IMPRESSION: Left basilar atelectasis versus pneumonia. Left moderate pleural effusion. Reviewed, dictated and finalized at location A. ENTER FORM
--- NOTE | ~2024-10-29 | XR_ITS ---
EXAMINATION: XR chest 1V portable DATE: 11/02/2024 10:42 INDICATION: Left pleural effusion. TECHNIQUE: A single frontal view of the chest was obtained. COMPARISON: Chest single view 10/29/2024, chest CT 10/31/2024 FINDINGS: There are small right and large left pleural effusions. There are airspace opacities in lef t perihilar region and at left lung base. Baltazar B-lines are noted, consistent with pulmonary edema. No pneumothorax. Cardiomegaly is noted. IMPRESSION: 1. Small right and large left pleural effusions. 2. Mild pulmonary edema. 3. Airspace opacities in left perihilar region and at left lung base, consistent with atelectasis or less likely pneumonia. 4. Cardiomegaly. Reviewed, dictated and finalized at location A. E AND MISSILE DEFENSE OPERATIONS IMPRESSION: 1. Small right and large left pleural effusions. 2. Mild pulmonary edema. 3. Airspace opacities in left perihilar region and at left lung base, consisten t with atelectasis or less likely pneumonia. 4. Cardiomegaly.
--- NOTE | ~2024-10-29 | US_ITS ---
EXAMINATION: US thoracentesis DATE: 11/02/2024 17:46 INDICATION: pleural effusion TECHNIQUE: The procedure and its risks, benefits, and alternatives were discussed with the patient. P otential risks discussed included bleeding, infection, and pneumothorax. The patient understood the r isks and agreed to proceed. The skin was prepped and draped in sterile fashion. 1% lidocaine was used for local anesthesia. Under ultrasound guidance, a 5 Fr catheter with trochar was advanced into the left pleural effusion. Fluid was aspirated. The catheter was removed, and a dressing was applied. The re were no immediate complications. FINDINGS: Ultrasound images demonstrate a left pleural effusion and the catheter within the fluid. IMPRESSION: 1. Successful ultrasound-guided thoracentesis yielding 1000 mL of clear, yellow fluid. Reviewed, dictated and finalized at location A. IAL EDUCATION PROFESSIONAL IMPRESSION: 1. Successful ultrasound-guided thoracentesis yielding 1000 mL of clear, yello w fluid.
--- NOTE | ~2024-10-29 | XR_ITS ---
CHEST RADIOGRAPH CLINICAL HISTORY: post thoracentesis . COMPARISON: 11/02/2024 at 10:30 AM TECHNIQUE: Single portable view of the chest. FINDINGS The cardiomediastinal silhouette is partially obscured. Decreased left-sided pleural effusion when compared with previous examination performed 6 hours earli er. No pneumothorax. Coarse interstitial lung markings are otherwise demonstrated bilaterally. IMPRESSION: Decreased left-sided pleural effusion. No pneumothorax following left-sided thoracentesis. Reviewed, dictated and finalized at location A. TERINTELLIGENCE/HUMINT SPECIALIST
--- NOTE | ~2024-10-29 | CT_ITS ---
EXAMINATION: CT diagnostic chest wo con DATE: 10/31/2024 18:52 INDICATION: Left effusion TECHNIQUE: Computed tomography (CT) of the chest was performed without intravenous contrast. Automate d exposure control and iterative reconstruction technique were employed. Exam dose: 206.08 mGy-cm to farhan exam DLP. COMPARISON: 10/29/2024 chest FINDINGS: There is a large left pleural effusion with associated severe left lower lobe and lingular atelectasis. There is prominent narrowing of the left lower lobe bronchi. Left hilar mass or adenopat hy is not excluded. Consider repeat CT examination with IV contrast material following left thoracent esis. Small right pleural effusion. Right lower lobe infiltrate/atelectasis. Focal areas of minimal right upper lobe infiltrate. Cardiomegaly. Coronary artery calcification. Thoracic aortic great vessel and coronary artery calcifications. No thoracic aortic aneurysm. There is mild mediastinal abimbola prominence, which may be reactive. Normal morphology of the adrenal glands. Mild bilateral gynecomastia. Subacute and/or old left eighth, 10th and 11th rib fractures Severe T12 and L1 vertebral body fractures. Thoracic dextroscoliosis. IMPRESSION: Prominent lingular and left lower lobe atelectasis and large left pleural effusion; gurdeep gnancy is not excluded. Consider repeat CT thorax with IV contrast material following left thoracente sis Focal areas of mild right upper lobe infiltrate Right lower lobe infiltrate and atelectasis and small right pleural effusion Cardiomegaly T12-L1 prominent vertebral body fractures Subacute and/or old left rib fractures Reviewed, dictated and finalized at Location A. Reviewed, dictated and finalized at location A. DIEM IMPRESSION: Prominent lingular and left lower lobe atelectasis and large left pleural effusion; malignancy is not excluded. Consider repeat CT thorax with IV contrast material following left thoracentesis Focal areas of mild right upper lobe infiltrate Right lower lobe infiltrate and atelectasis and small right pleural effusion Cardiomegaly T12-L1 prominent vertebral body fractures Subacute and/or old left rib fractures
--- NOTE | 2024-10-29 16:45 | ECG_ITS ---
Test Date: 2024-10-29 17:20:02 Measurements Intervals [place] Rate: 76 P: 0 MO: 0 QRS: 25 QRSD: 76 T: -60 QT: 231 QTc: 260 Interpretive Statements ATRIAL FIBRILLATION ANTEROSEPTAL MYOCARDIAL INFARCTION , PROBABLY OLD [40+ ms Q WAVE IN V1-V4] Compared to ECG 07/28/2024 01:34:00 No significant changes Electronically Signed On 11-02-2024 14:36:34 MAINFRAME PROGRAMMER ANALYST by Joel Pulido M.D.
--- NOTE | 2024-10-29 16:46 | ED.SOB ---
HPI - SOB/Dyspnea General Chief Complaint: Shortness of Breath/Dyspnea <Fabi West PA-C - Last Filed: 10/29/24 16:47> Stated Complaint: pna, L pleural eff <Fabi West PA-C - Last Filed: 10/29/24 16:47> Time Seen by Provider: 10/29/24 20:45 <Fabi West PA-C - Last Filed: 10/29/24 16:47> Focused HPI: 78-year-old male with history of COPD, chronic hypoxic respiratory failure on 2.5 L nasal cannula at baseline, asthma, CHF, anemia, left BKA presents to the emergency department for shortness of breath and left-sided pleural effusion that was found on outpatient chest x-ray. Patient recently underwent treatment for pneumonia and had an outpatient chest x-ray done at his facility which showed a left-sided pleural effusion. Patient was sent to the ED for further evaluation. He states he has not had increase his O2 but does feel more short of breath when compared to his baseline. No fevers. He is reporting left-sided chest pain that occurs when he moves. Reports a cough but states this has improved after he has been on medications. GENERAL:chronically ill-appearing, well-nourished, and in no acute distress. HEAD: Normocephalic, atraumatic. CHEST: Decreased lung sounds in the left lung field. Rhonchi throughout the right lung field. Patient satting 97% on 3 L nasal cannula no respiratory distress EXT: Left BKA. Toes 1 through 5 amputated on the right foot HEART: Regular rate and rhythm.? NEURO: ?Alert and oriented x3. Patient screened in triage and initial orders placed.? ?Additional care and disposition to be based upon?diagnostic testing and treatment. <Fabi West PA-C - Last Filed: 10/29/24 16:47> Related Data Home Medications: Home Medications ?Medication ?Instructions ?Recorded ?Confirmed ?Last Taken ?Type folic acid 1 mg tablet 1 mg PO DAILY 12/02/20 10/29/24 03/30/22 History acetaminophen 650 mg 650 mg PO Q4H PRN PAIN 09/30/23 10/29/24 Unknown History tablet,extended release baclofen 5 mg tablet 5 mg PO Q8H PRN MUSCLE SPASM 09/30/23 10/29/24 Unknown History benzonatate 100 mg capsule 100 mg PO TID PRN Cough 09/30/23 10/29/24 Unknown History bisacodyl 10 mg rectal suppository 10 mg RECTAL DAILY PRN SEE 09/30/23 10/29/24 Unknown History INSTRUCTIONS cetirizine 10 mg tablet 10 mg PO DAILY 09/30/23 10/29/24 Unknown History cholecalciferol (vitamin D3) 25 25 mcg PO DAILY 09/30/23 10/29/24 Unknown History mcg (1,000 unit) tablet ipratropium 0.5 mg-albuterol 3 mg 3 ml inhalation Q4H PRN shortness 09/30/23 10/29/24 Unknown History (2.5 mg base)/3 mL nebulization of breath or wheezing soln ipratropium bromide 17 2 puff inhalation Q4H PRN sob 09/30/23 10/29/24 Unknown History mcg/actuation HFA aerosol inhaler (Atrovent HFA) magnesium citrate (Citroma oral 296 ml PO DAILY PRN SEE 09/30/23 10/29/24 Unknown History solution) INSTRUCTIONS magnesium hydroxide 400 mg/5 mL 30 ml PO QHS PRN Constipation 09/30/23 10/29/24 Unknown History oral suspension sertraline 50 mg tablet 100 mg PO QHS 09/30/23 10/29/24 Unknown History sodium phosphates 19 gram-7 118 ml RECTAL ONCE PRN SEE 09/30/23 10/29/24 Unknown History gram/118 mL enema (Fleet Enema) INSTRUCTIONS guaifenesin 600 mg tablet, 600 mg PO Q12H 05/25/24 10/29/24 Unknown History extended release 12 hr ipratropium 0.5 mg-albuterol 3 mg 3 ml inhalation Q4H PRN SOB 05/25/24 10/29/24 Unknown History (2.5 mg base)/3 mL nebulization soln ascorbic acid (vitamin C) 500 mg 500 mg PO BID 07/23/24 10/29/24 Unknown History capsule cyanocobalamin (vitamin B-12) 500 1,000 mcg PO DAILY 07/23/24 10/29/24 Unknown History mcg tablet ferrous sulfate 325 mg (65 mg 325 mg PO DAILY 07/23/24 10/29/24 Unknown History iron) tablet gabapentin 300 mg capsule 300 mg PO BID 07/23/24 10/29/24 Unknown History hydrocortisone 1 % topical cream 1 applic topical .Q 8HR PRN FOR 07/23/24 10/29/24 Unknown History (Cortisone (hydrocortisone)) ITCHING apixaban 2.5 mg tablet (Eliquis) 2.5 mg PO BID 07/27/24 10/29/24 Unknown History aspirin 81 mg tablet,delayed 325 mg PO QAM 07/27/24 10/29/24 Unknown History release fluticasone fur. 100 mcg-umeclid 1 inh inhalation DAILY 07/27/24 10/29/24 Unknown History 62.5 mcg-vilant 25 mcg inhalat.powder (Trelegy Ellipta) ipratropium bromide 17 2 puff inhalation TID 07/27/24 10/29/24 Unknown History mcg/actuation HFA aerosol inhaler (Atrovent HFA) lanolin alcohols-mineral 1 applic topical QSHIFT 07/27/24 10/29/24 Unknown History oil-w.petrolatum-ceresin topical cream (Minerin Creme topical) prednisone 2.5 mg tablet 2.5 mg PO DAILY 07/27/24 10/29/24 Unknown History simvastatin 10 mg tablet 10 mg PO HS 07/27/24 10/29/24 Unknown History Saccharomyces boulardii 250 mg 250 mg PO BID 10/12/24 10/29/24 Unknown History capsule (Daily Probiotic (S. boulardii)) amoxicillin 500 mg-potassium 1 tablet PO Q12H 10/12/24 10/29/24 Unknown History clavulanate 125 mg tablet aspirin 325 mg capsule 325 mg PO DAILY 10/12/24 10/29/24 Unknown History diclofenac sodium 1 % topical gel 2 g topical TID 10/12/24 10/29/24 Unknown History (Arthritis Pain (diclofenac)) epoetin rosalie 10,000 unit/mL 10,000 unit subcut .MWF anemia 10/12/24 10/29/24 Unknown History injection solution (Procrit) hydralazine 25 mg tablet 25 mg PO TID 10/12/24 10/29/24 Unknown History hydroxyzine pamoate 25 mg capsule 25 mg PO Q12H PRN anxiety 10/12/24 10/29/24 Unknown History lanolin alcohols-mineral 1 applic topical BID 10/12/24 10/29/24 Unknown History oil-w.petrolatum-ceresin topical cream (Minerin Creme topical) multivitamin (Daily Multi-Vitamin 1 tablet PO DAILY 10/12/24 10/29/24 Unknown History tablet) nicotine 21 mg/24 hr daily 1 patch transdermal DAILY 10/12/24 10/29/24 Unknown History transdermal patch (Nicoderm CQ) pantoprazole 40 mg tablet,delayed 40 mg PO Q12H 10/12/24 10/29/24 Unknown History release prednisone 5 mg tablet 5 mg PO DAILY 10/12/24 10/29/24 Unknown History sodium phosphates 19 gram-7 118 ml RECTAL ONCE 10/12/24 10/29/24 Unknown History gram/118 mL enema (Fleet Enema) torsemide 10 mg tablet 5 mg PO QAM 10/12/24 10/29/24 Unknown History trazodone 50 mg tablet 75 mg PO QHS 10/12/24 10/29/24 Unknown History <Fabi West PA-C - Last Filed: 10/29/24 16:47> Allergies/Adverse Reactions: Allergies Allergy/AdvReac Type Severity Reaction Status Date / Time niacin Allergy Intermediate Rash/itchin Verified 10/29/24 09:29 g hydrocodone (From [place]) AdvReac Confusion Verified 10/29/24 09:29 <Fabi West PA-C - Last Filed: 10/29/24 16:47> FORMERLY [facility], [facility] Past Medical History Medical History: Medical History Diabetic retinopathy Dilated eye exam December 2023 demonstrating mild bilateral disease CKD (chronic kidney disease) stage 4, GFR 15-29 ml/min COVID-19 Metabolic acidosis Alcohol abuse Acute hyperkalemia Acute kidney injury Hypoxia Acidosis Abrasion of left leg Pulmonary hypertension Echocardiogram on 06/08/2021 showed normal left ventricular systolic function with an EF estimated 65 to 70%, mildly increased LV wall thickness, severely enlarged right atrial chamber, mildly enlarged left atrial chamber, mild mitral valve and trace tricuspid valve regurgitation, and mild pulmonary hypertension with an estimated pulmonary arterial systolic pressure of 35 mmHg. Diabetic foot ulcer Acute and chronic respiratory failure Pancreatitis (03/2021) MRSA (methicillin resistant Staphylococcus aureus) septicemia (09/2020) Alcohol abuse Chronic anemia Ichthyosis vulgaris Osteoarthritis Former smoker Irritable bowel syndrome Chronic respiratory failure with hypoxia, on home O2 therapy Gastroesophageal reflux disease Benign prostatic hyperplasia Type 2 diabetes mellitus Hemoglobin A1c was 6.6% on 06/09/2021. Chronic obstructive pulmonary disease Severe obstructive disease without bronchodilator relief noted on PFTs September 2019 Hypertension Diastolic congestive heart failure Echocardiogram 2020 EF 65-70, mildly increased left ventricular wall thickness, severe right atrial enlargement, mild left atrial enlargement, mild pulmonary hypertension with RVSP of 35, indeterminate diastolic function due to AFib Persistent atrial fibrillation Diabetic peripheral neuropathy Hearing loss Cerebrovascular accident Foot osteomyelitis, left Wound, open, foot Diabetic foot infection (Unknown) Severe sepsis Anxiety Depression Sacrum and coccyx fracture Osteomyelitis History of osteomyelitis of both feet requiring multiple amputations. Pneumonia Asthma Mixed hyperlipidemia <Fabi West PA-C - Last Filed: 10/29/24 16:47> Surgical History Surgical History: Surgical History History of left below knee amputation (11/17/20) Performed by Dr. 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 History of total right hip arthroplasty (2002) History of ventral hernia repair (2006) History of tonsillectomy History of bilateral cataract extraction <Fabi West PA-C - Last Filed: 10/29/24 16:47> Family History Family History: Family History Mother Patient's mother is , Onset Age: 31 Father Suicide <Fabi West PA-C - Last Filed: 10/29/24 16:47> Social History Social History: Social History Social History: Surrogate medical decision maker: Annetta Jean Baptiste, daughter Code status: Full code. Smoking packs per day: 1 Smoking cigarettes per day: 20.0 Years smoked: 58 Smoking pack-years: 58.00 Smoking status: Current some day smoker Second hand tobacco smoke exposure: No Alcohol intake: former Substance use: never Substance use type: does not use Do You Feel Safe in your Home?: Yes Lack of Transportation: No Lack of Food: Never True Current Housing: I Have Housing Concerned About Future Housing: No Difficulty Paying Gas/Electric Bills: No Difficulty Paying for Meds: No Currently Unemployed: No Education: Grade School Difficulty w/ Childcare or Family Care: No Living arrangements: [facility] Additional living arrangements comments: . He has 7 children. 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 Spiritual care concerns: No <Fabi West PA-C - Last Filed: 10/29/24 16:47> Exam Narrative: APPEARANCE:Chronically ill-appearing Head: atraumatic. EYES: EOMI, NOSE: Atraumatic NECK: Trachea midline RESPIRATORY: Tachypnic, Diffuse wheezing, Decreased lung sounds LL lobe. CARDIOVASCULAR: RRR, ABDOMINAL: Non-distended MUSCULOSKELETAl: left BKA, right partial amputation of the foot NEURO: Alert. Moving 4/4 extremities SKIN:: Warm, dry. Normal color PSYCHIATRIC: Normal affect <Carlos Woods MD - Last Filed: 10/29/24 23:26> Course Vital Signs Vital signs: Vital Signs Temperature 97.2 F L 10/29/24 16:42 Pulse Rate 74 10/29/24 16:42 Respiratory Rate 20 10/29/24 16:42 Blood Pressure 135/63 10/29/24 16:42 Pulse Oximetry 97 10/29/24 16:42 Oxygen Delivery Nasal Cannula 10/29/24 16:42 Oxygen Flow Rate 3 10/29/24 16:42 Temperature 97.2 F L 10/29/24 16:42 Pulse Rate 81 10/29/24 22:45 Respiratory Rate 19 10/29/24 22:15 Blood Pressure 130/95 H 10/29/24 22:45 Pulse Oximetry 99 10/29/24 22:45 Oxygen Delivery Nasal Cannula 10/29/24 20:55 Oxygen Flow Rate 3 10/29/24 20:55 <Fabi West PA-C - Last Filed: 10/29/24 16:47> Vital Signs Temperature 97.2 F L 10/29/24 16:42 Pulse Rate 74 10/29/24 16:42 Respiratory Rate 20 10/29/24 16:42 Blood Pressure 135/63 10/29/24 16:42 Pulse Oximetry 97 10/29/24 16:42 Oxygen Delivery Nasal Cannula 10/29/24 16:42 Oxygen Flow Rate 3 10/29/24 16:42 Temperature 97.2 F L 10/29/24 16:42 Pulse Rate 81 10/29/24 22:45 Respiratory Rate 19 10/29/24 22:15 Blood Pressure 130/95 H 10/29/24 22:45 Pulse Oximetry 99 10/29/24 22:45 Oxygen Delivery Nasal Cannula 10/29/24 20:55 Oxygen Flow Rate 3 10/29/24 20:55 <Carlos Woods MD - Last Filed: 10/29/24 23:26> MDM - SOB/Dyspnea MDM Narrative Medical decision making narrative: -Course: 78-year-old male multiple medical comorbidities presenting with shortness of breath. Patient found to because of COVID positive. He is on his baseline oxygen of 3 L nasal cannula. He is diffusely wheezy on exam is being treated for COPD with DuoNebs, antibiotics and steroids. ABG showed acute hypercarbic respiratory failure. Chest x-ray shows infiltrates and a moderate size left-sided pleural effusion and patient has a history of HFpRF. patient given a dose of Lasix. Due to hospital staffing we will keep the patient in the emergency department for another hour and repeat the ABG see if he is improving after Duonebs. Repeat ABG was worse. Patient placed on BiPAP will be admitted the IMU. -DDX includes but is not limited to: COPD CHF pneumonia viral syndromes sepsis UTI -Independent interpretation of studies: labs and imaging reviewed -Discussion of Management/Consultants:Malick -Interventions: ceftriaxone, azithromycin, DuoNebs, steroids, Lasix -Shared decision making / Disposition: admitted <Cralos Woods MD - Last Filed: 10/29/24 23:26> Lab Data Result diagrams: 10/29/24 17:14 10/29/24 17:14 <Fabi West PA-C - Last Filed: 10/29/24 16:47> Labs: Lab Results 10/29/24 10/29/24 10/29/24 Range/Units 17:14 17:14 20:51 WBC 13.9 H (4.5-10.0) K/mm3 RBC 3.33 L (4.6-6.20) M/mm3 Hgb 9.5 L (14.0-18.0) g/dL Hct 32.5 L (42.0-52.0) % MCV 97.6 (80-100) fl MCH 28.5 (26-34) pg MCHC 29.2 L (32-36) g/dl RDW 14.9 H (11.5-14.5) % Plt Count 213 (150-375) k/mm3 MPV 8.9 (7.4-10.4) fl Immature Gran % (Auto) 1.5 H (0-0.5) % Neut % (Auto) 88.5 H (45.5-73.1) % Lymph % (Auto) 5.3 L (18.3-44.2) % Menard % (Auto) 3.8 (2.6-8.5) % Eos % (Auto) 0.6 (0-4.4) % Baso % (Auto) 0.3 (0.2-1.2) % Lymph # (Auto) 0.74 L (0.9-3.2) K/mm3 Menard # (Auto) 0.5 (0.1-0.6) K/mm3 Eos # (Auto) 0.1 (0-0.3) K/mm3 Baso # (Auto) 0.0 (0.0-0.1) K/mm3 Abs Immat Gran (auto) 0.21 H (0.00-0.031) K/mm3 Absolute Neuts (auto) 12.3 H (1.3-6.7) K/mm3 Absolute Nucleated RBC 0.000 (0.0-0.012) K/mm3 Nucleated RBC % 0.0 (0.0-0.2) % PT 14.8 H (11.1-14.7) Seconds INR 1.1 APTT 36.3 (22.3-36.8) Seconds Sodium 140 (137-145) mmol/L Potassium 4.0 (3.4-5.0) mmol/L Chloride 105 (98-107) mmol/L Carbon Dioxide 34 H (22-30) mmol/L Anion Gap 1 L (4-12) mmol/L BUN 38 H (9-20) mg/dL Creatinine 3.10 H (0.7-1.3) mg/dL Estim Creat Clear Calc 20 ml/min Estimated GFR 20 L (59 - ) Glucose 125 H (65-110) mg/dL Calcium 7.9 L (8.4-10.2) mg/dL Magnesium 2.0 2.0 (1.6-2.3) mg/dL Total Bilirubin 0.6 (0.2-1.3) mg/dL AST 50 (17-59) U/L ALT 26 (6-50) U/L Alkaline Phosphatase 126 (38-126) U/L Troponin I 0.222 H* 0.241 H* (0.000-0.034) ng/mL NT-Pro-B Natriuret Pep 7670 H (19.9-100) pg/mL Total Protein 7.0 (6.3-8.2) g/dL Albumin 3.5 (3.5-5.1) g/dL Influenza A (RT-PCR) Negative (Negative) Influenza B (RT-PCR) Negative (Negative) RSV (RT-PCR) Negative (Negative) SARS-CoV-2 RNA (RT-PCR) Positive A (Negative) <Fabi West PA-C - Last Filed: 10/29/24 16:47> Lab Results 10/29/24 10/29/24 10/29/24 Range/Units 17:14 17:14 20:51 WBC 13.9 H (4.5-10.0) K/mm3 RBC 3.33 L (4.6-6.20) M/mm3 Hgb 9.5 L (14.0-18.0) g/dL Hct 32.5 L (42.0-52.0) % MCV 97.6 (80-100) fl MCH 28.5 (26-34) pg MCHC 29.2 L (32-36) g/dl RDW 14.9 H (11.5-14.5) % Plt Count 213 (150-375) k/mm3 MPV 8.9 (7.4-10.4) fl Immature Gran % (Auto) 1.5 H (0-0.5) % Neut % (Auto) 88.5 H (45.5-73.1) % Lymph % (Auto) 5.3 L (18.3-44.2) % Menard % (Auto) 3.8 (2.6-8.5) % Eos % (Auto) 0.6 (0-4.4) % Baso % (Auto) 0.3 (0.2-1.2) % Lymph # (Auto) 0.74 L (0.9-3.2) K/mm3 Menard # (Auto) 0.5 (0.1-0.6) K/mm3 Eos # (Auto) 0.1 (0-0.3) K/mm3 Baso # (Auto) 0.0 (0.0-0.1) K/mm3 Abs Immat Gran (auto) 0.21 H (0.00-0.031) K/mm3 Absolute Neuts (auto) 12.3 H (1.3-6.7) K/mm3 Absolute Nucleated RBC 0.000 (0.0-0.012) K/mm3 Nucleated RBC % 0.0 (0.0-0.2) % PT 14.8 H (11.1-14.7) Seconds INR 1.1 APTT 36.3 (22.3-36.8) Seconds Sodium 140 (137-145) mmol/L Potassium 4.0 (3.4-5.0) mmol/L Chloride 105 (98-107) mmol/L Carbon Dioxide 34 H (22-30) mmol/L Anion Gap 1 L (4-12) mmol/L BUN 38 H (9-20) mg/dL Creatinine 3.10 H (0.7-1.3) mg/dL Estim Creat Clear Calc 20 ml/min Estimated GFR 20 L (59 - ) Glucose 125 H (65-110) mg/dL Calcium 7.9 L (8.4-10.2) mg/dL Magnesium 2.0 2.0 (1.6-2.3) mg/dL Total Bilirubin 0.6 (0.2-1.3) mg/dL AST 50 (17-59) U/L ALT 26 (6-50) U/L Alkaline Phosphatase 126 (38-126) U/L Troponin I 0.222 H* 0.241 H* (0.000-0.034) ng/mL NT-Pro-B Natriuret Pep 7670 H (19.9-100) pg/mL Total Protein 7.0 (6.3-8.2) g/dL Albumin 3.5 (3.5-5.1) g/dL Influenza A (RT-PCR) Negative (Negative) Influenza B (RT-PCR) Negative (Negative) RSV (RT-PCR) Negative (Negative) SARS-CoV-2 RNA (RT-PCR) Positive A (Negative) <Carlos Woods MD - Last Filed: 10/29/24 23:26> ABG Data ABG results: 10/29/24 10/29/24 21:36 22:58 Puncture Site Left radial Left radial ABG pH 7.236 L* 7.220 L* ABG pCO2 67.8 H* 78.2 H* ABG pO2 93.3 79.4 L ABG PO2/FiO2 Ratio 2.92 1.65 ABG HCO3 28.1 H 31.3 H ABG O2 Saturation 95.5 92.7 L ABG O2 Content 13.9 L 13.5 L ABG Base Excess -0.3 2.1 A-a Gradient 55.5 174.5 Oxyhemoglobin 95.9 94.2 Total Hemoglobin 10.2 L 10.1 L O2 Delivery Device Nasal cannula Nasal cannula O2 Liters/Min 3.0 7.0 FiO2 32 48 <Fabi West PA-C - Last Filed: 10/29/24 16:47> 10/29/24 10/29/24 21:36 22:58 Puncture Site Left radial Left radial ABG pH 7.236 L* 7.220 L* ABG pCO2 67.8 H* 78.2 H* ABG pO2 93.3 79.4 L ABG PO2/FiO2 Ratio 2.92 1.65 ABG HCO3 28.1 H 31.3 H ABG O2 Saturation 95.5 92.7 L ABG O2 Content 13.9 L 13.5 L ABG Base Excess -0.3 2.1 A-a Gradient 55.5 174.5 Oxyhemoglobin 95.9 94.2 Total Hemoglobin 10.2 L 10.1 L O2 Delivery Device Nasal cannula Nasal cannula O2 Liters/Min 3.0 7.0 FiO2 32 48 <Carlos Woods MD - Last Filed: 10/29/24 23:26> Critical Care Time Critical Care Time Critical Care Time: Yes <Carlos Woods MD - Last Filed: 10/29/24 23:26> Total Critical Care Time: 45 <Carlos Woods MD - Last Filed: 10/29/24 23:26> Discharge Plan Discharge Clinical Impression: Acute hypercapnic respiratory failure, CHF (congestive heart failure), COPD (chronic obstructive pulmonary disease), COVID <Fabi West PA-C - Last Filed: 10/29/24 16:47> Patient Disposition: Still a Patient <Fabi West PA-C - Last Filed: 10/29/24 16:47> Condition: Stable <Fabi West PA-C - Last Filed: 10/29/24 16:47> Patient Language: Romansh <Fabi West PA-C - Last Filed: 10/29/24 16:47> Prescriptions: No Action acetaminophen 650 mg tablet extended release 650 mg PO Q4H PRN (Reason: PAIN) Atrovent HFA 17 mcg/actuation HFA aerosol inhaler 2 puff inhalation Q4H PRN (Reason: sob) baclofen 5 mg tablet 5 mg PO Q8H PRN (Reason: MUSCLE SPASM) benzonatate 100 mg capsule 100 mg PO TID PRN (Reason: Cough) bisacodyl 10 mg suppository 10 mg RECTAL DAILY PRN (Reason: SEE INSTRUCTIONS) Rx Instructions: FOR CONSTIPATION DAILY IF NO RESULTS FROM MOM cetirizine 10 mg tablet 10 mg PO DAILY cholecalciferol (vitamin D3) 25 mcg (1,000 unit) tablet 25 mcg PO DAILY magnesium citrate [Citroma] Solution 296 ml PO DAILY PRN (Reason: SEE INSTRUCTIONS) Rx Instructions: NEEDED FOR CONSTIPATION - GIVE IN AM IF NO RESULTS AFTER ENEMA .IF NO RESULTS WITHIN 1 HOUR OF COMPLETION CONTACT MD Doty Enandrae 19-7 gram/118 mL enema 118 ml RECTAL ONCE PRN (Reason: SEE INSTRUCTIONS) Rx Instructions: GIVE FOR CONSTIPATION IF NO RESULTS 1 DAY AFTER SUPPOSITORY ipratropium-albuterol 0.5 mg-3 mg(2.5 mg base)/3 mL solution for nebulization 3 ml inhalation Q4H PRN (Reason: shortness of breath or wheezing) magnesium hydroxide 400 mg/5 mL suspension 30 ml PO QHS PRN (Reason: Constipation) Rx Instructions: FOR CONSTIPATION IF NO BM IN 3 DAYS sertraline 50 mg tablet 100 mg PO QHS gabapentin 300 mg capsule 300 mg PO BID cyanocobalamin (vitamin B-12) 500 mcg tablet 1,000 mcg PO DAILY Rx Instructions: take 750mcg daily hydrocortisone [Cortisone (hydrocortisone)] 1 % cream 1 applic topical .Q 8HR PRN (Reason: FOR ITCHING) ascorbic acid (vitamin C) 500 mg capsule 500 mg PO BID ferrous sulfate 325 mg (65 mg iron) tablet 325 mg PO DAILY prednisone 2.5 mg tablet 2.5 mg PO DAILY Atrovent HFA 17 mcg/actuation Hfa Aerosol Inhaler 2 puff INHALATION TID Minerin Creme Cream 1 applic TOPICAL QSHIFT Eliquis 2.5 mg Tablet 2.5 mg PO BID Trelegy Ellipta 100-62.5-25 mcg Blister With Device 1 inh INHALATION DAILY simvastatin 10 mg tablet 10 mg PO HS aspirin 81 mg tablet,delayed release (DR/EC) 325 mg PO QAM Lokelma 10 gram Powder In Packet 10 g PO BID 14 Days Qty: 30 0RF Procrit 10,000 unit/mL solution 10,000 unit subcut .MWF Rx Instructions: Administer for Hgb <10 pantoprazole 40 mg tablet,delayed release (DR/EC) 40 mg PO Q12H nicotine [Nicoderm CQ] 21 mg/24 hr patch 24 hour 1 patch transdermal DAILY prednisone 5 mg tablet 5 mg PO DAILY Saccharomyces boulardii [Daily Probiotic (S. boulardii)] 250 mg capsule 250 mg PO BID amoxicillin-pot clavulanate 500-125 mg tablet 1 tablet PO Q12H hydroxyzine pamoate 25 mg capsule 25 mg PO Q12H PRN (Reason: anxiety) diclofenac sodium [Arthritis Pain (diclofenac)] 1 % gel 2 g topical TID Rx Instructions: apply to left shoulder hydralazine 25 mg tablet 25 mg PO TID torsemide 10 mg tablet 5 mg PO QAM multivitamin [Daily Multi-Vitamin] Tablet 1 tablet PO DAILY aspirin 325 mg capsule 325 mg PO DAILY Minerin Creme Cream 1 applic topical BID Fleet Enema 19-7 gram/118 mL enema 118 ml RECTAL ONCE trazodone 50 mg tablet 75 mg PO QHS folic acid 1 mg tablet 1 mg PO DAILY Rx Instructions: TAKE 1 TABLET BY MOUTH DAILY guaifenesin 600 mg Tablet Extended Release 12hr 600 mg PO Q12H ipratropium-albuterol 0.5 mg-3 mg(2.5 mg base)/3 mL Solution For Nebulization 3 ml INHALATION Q4H PRN (Reason: SOB) tramadol 50 mg Tablet 50 mg PO Q6H PRN (Reason: chronic pain) Qty: 1 0RF sodium bicarbonate 650 mg Tablet 1,300 mg PO TID Qty: 90 0RF amlodipine 10 mg tablet 10 mg PO DAILY Qty: 90 1RF multivitamin Tablet 1 tablet PO DAILY Qty: 90 1RF <Fabi West PA-C - Last Filed: 10/29/24 16:47> Follow-up/Referrals: Master Colbert MD [Primary Care Provider] - <Fabi West PA-C - Last Filed: 10/29/24 16:47>
[2024-10-29 17:20] LABS: Basophils Percent Auto 0.3 % (0.2-1.2); Eosinophils Absolute Auto 0.1 K/mm3 (0-0.3); Eosinophils Percent Auto 0.6 % (0-4.4); Hematocrit 32.5 % (42.0-52.0); Hemoglobin 9.5 g/dL (14.0-18.0); Immature Granulocyte Absolute 0.21 K/mm3 (0.00-0.031); Immature Granulocyte Percent A 1.5 % (0-0.5); Lymphocytes Absolute Auto 0.74 K/mm3 (0.9-3.2); Lymphocytes Percent Auto 5.3 % (18.3-44.2); Mean Corpuscular HGB Conc 29.2 g/dl (32-36); Mean Corpuscular Hemoglobin 28.5 pg (26-34); Mean Corpuscular Volume 97.6 fl (80-100); Mean Platelet Volume 8.9 fl (7.4-10.4); Monocytes Absolute Auto 0.5 K/mm3 (0.1-0.6); Monocytes Percent Auto 3.8 % (2.6-8.5); Neutrophils Absolute Auto 12.3 K/mm3 (1.3-6.7); Neutrophils Percent Auto 88.5 % (45.5-73.1); Platelet Count Result 213 k/mm3 (150-375); Red Blood Count 3.33 M/mm3 (4.6-6.20); Red Cell Distribution Width 14.9 % (11.5-14.5); White Blood Count 13.9 K/mm3 (4.5-10.0)
[2024-10-29 17:33] LABS: INR 1.1; Prothrombin Time 14.8 Seconds (11.1-14.7)
[2024-10-29 17:34] LABS: Partial Thromboplastin Time 36.3 Seconds (22.3-36.8)
[2024-10-29 17:36] LABS: Alanine Aminotransferase 26 U/L (6-50); Albumin Level 3.5 g/dL (3.5-5.1); Alkaline Phosphatase 126 U/L (38-126); Anion Gap 1 mmol/L (4-12); Aspartate Amino Transferase 50 U/L (17-59); Bilirubin,Total 0.6 mg/dL (0.2-1.3); Blood Urea Nitrogen 38 mg/dL (9-20); Calcium 7.9 mg/dL (8.4-10.2); Carbon Dioxide 34 mmol/L (22-30); Chloride 105 mmol/L (98-107); Estimated CRCL calculation 20 ml/min; Estimated Glomerular Filt Rate 20; Glucose 125 mg/dL (65-110); Sodium 140 mmol/L (137-145)
[2024-10-29 17:50] LABS: NT Pro B Type Natriuretic Pept 7670 pg/mL (19.9-100); Troponin I 0.222 ng/mL (0.000-0.034)
[2024-10-29 17:56] LABS: Influenza A QL RT-PCR Negative (Negative); Influenza B QL RT-PCR Negative (Negative); RSV RNA, RT-PCR Negative (Negative); SARS-CoV-2 RNA PCR Positive (Negative)
--- NOTE | 2024-10-29 19:58 | ECG_ITS ---
Test Date: 2024-10-29 20:51:30 Measurements Intervals [place] Rate: 75 P: 0 SC: 0 QRS: 11 QRSD: 88 T: 58 QT: 369 QTc: 414 Interpretive Statements ATRIAL FIBRILLATION POSSIBLE ANTERIOR MYOCARDIAL INFARCTION , PROBABLY OLD [30 ms Q WAVE IN V3/V4, OR R < 0.2 mV IN V4] ABNORMAL RHYTHM ECG Compared to ECG 10/29/2024 17:20:02 No significant changes Electronically Signed On 11-02-2024 14:52:08 [employer] by Joel Pulido M.D.
[2024-10-29] MEDS: methylPREDNISolone SOD SUCC 125 MG VIAL IV PUSH (21:12)
[2024-10-29 21:23] LABS: Troponin I 0.241 ng/mL (0.000-0.034)
[2024-10-29] MEDS: IPRATROPIUM 0.5 MG/ALBUTEROL SULFATE 2.5 MG AMPUL.NEB 3 ML 12 ML INHALATION (21:32)
[2024-10-29 21:44] LABS: Alveolar/Arterial O2 Gradient 55.5 mmHg; Base Excess ABG -0.3 mEq/l (+/-2.0); Fractional Inspired Oxygen 32 %; HCO3 ABG 28.1 mEq/l (22.0-26.0); Oxygen Content ABG 13.9 %vol (16.0-22.0); Oxygen Saturation ABG 95.5 % (95.0-100.0); Oxyhemoglobin 95.9 % THb (90.0-100.0); PO2 ABG 93.3 mmHg (80.0-100.0); PO2 FiO2 Ratio Arterial Blood 2.92 %; Total Hemoglobin 10.2 g/dL (12.0-18.0)
[2024-10-29 21:49] LABS: pH ABG 7.236 (7.350-7.450)
[2024-10-29 21:50] LABS: Device NASAL CANNULA; Modified Allen's Test Pass; PCO2 ABG 67.8 mmHg (35.0-45.0); Site Drawn LEFT RADIAL
[2024-10-29] MEDS: FUROSEMIDE INJ 40 MG/4 ML VIAL IV PUSH (21:57)
[2024-10-29] MEDS: AZITHROMYCIN 500 MG/NS 250 ML 500 MG/250 ML BAG 250 MG IVPB (21:57)
[2024-10-29] MEDS: MAGNESIUM SULF 2 GM/WATER 50ML 2 GM/50 ML BAG IVPB (22:34)
--- NOTE | 2024-10-29 22:44 | PC.NURSE ---
unable to get consistent telemetry monitoring on pt. attempted to switch stickers multiple times as well as cords for the monitor. suspecting pt scaly skin texture is interfering with tele connection. notified hospitalist, hot metal charger, and housekeeping supervisor
[2024-10-29 23:04] LABS: Alveolar/Arterial O2 Gradient 174.5 mmHg; Base Excess ABG 2.1 mEq/l (+/-2.0); Fractional Inspired Oxygen 48 %; HCO3 ABG 31.3 mEq/l (22.0-26.0); Oxygen Content ABG 13.5 %vol (16.0-22.0); Oxygen Saturation ABG 92.7 % (95.0-100.0); Oxyhemoglobin 94.2 % THb (90.0-100.0); PO2 ABG 79.4 mmHg (80.0-100.0); PO2 FiO2 Ratio Arterial Blood 1.65 %; Total Hemoglobin 10.1 g/dL (12.0-18.0)
[2024-10-29 23:07] LABS: Device NASAL CANNULA; Modified Allen's Test Pass; PCO2 ABG 78.2 mmHg (35.0-45.0); Site Drawn LEFT RADIAL
--- NOTE | 2024-10-29 23:17 | PC.NURSE ---
care and report given to PAUL Hogan. all questions answered.
--- NOTE | 2024-10-29 23:49 | PM.IMHP ---
H&P: HPI History of Present Illness Date/Time: 10/29/24 23:49 Chief Complaint: Dyspnea Narrative: This is a 78-year-old male with history of COPD, chronic hypoxic respiratory failure on 2.5 L nasal cannula at baseline, asthma, CHF, anemia, left BKA presents to the emergency department for shortness of breath and left-sided pleural effusion that was found on outpatient chest x-ray. Workup in the emergency department shows patient has COVID. Patient Was dyspneic and wheezy, received bronchodilators IV steroids IV magnesium. ER also initiated IV antibiotics. ABG showed respiratory acidosis with incomplete compensation. I recommended BiPAP and ER provider wanted to reassess after further bronchodilators repeat ABG was worsened so patient was placed on BiPAP. [facility] Past Medical History Medical History Diabetic retinopathy Dilated eye exam December 2023 demonstrating mild bilateral disease CKD (chronic kidney disease) stage 4, GFR 15-29 ml/min COVID-19 Metabolic acidosis Alcohol abuse Acute hyperkalemia Acute kidney injury Hypoxia Acidosis Abrasion of left leg Pulmonary hypertension Echocardiogram on 06/08/2021 showed normal left ventricular systolic function with an EF estimated 65 to 70%, mildly increased LV wall thickness, severely enlarged right atrial chamber, mildly enlarged left atrial chamber, mild mitral valve and trace tricuspid valve regurgitation, and mild pulmonary hypertension with an estimated pulmonary arterial systolic pressure of 35 mmHg. Diabetic foot ulcer Acute and chronic respiratory failure Pancreatitis (03/2021) MRSA (methicillin resistant Staphylococcus aureus) septicemia (09/2020) Alcohol abuse Chronic anemia Ichthyosis vulgaris Osteoarthritis Former smoker Irritable bowel syndrome Chronic respiratory failure with hypoxia, on home O2 therapy Gastroesophageal reflux disease Benign prostatic hyperplasia Type 2 diabetes mellitus Hemoglobin A1c was 6.6% on 06/09/2021. Chronic obstructive pulmonary disease Severe obstructive disease without bronchodilator relief noted on PFTs September 2019 Hypertension Diastolic congestive heart failure Echocardiogram 2020 EF 65-70, mildly increased left ventricular wall thickness, severe right atrial enlargement, mild left atrial enlargement, mild pulmonary hypertension with RVSP of 35, indeterminate diastolic function due to AFib Persistent atrial fibrillation Diabetic peripheral neuropathy Hearing loss Cerebrovascular accident Foot osteomyelitis, left Wound, open, foot Diabetic foot infection (Unknown) Severe sepsis Anxiety Depression Sacrum and coccyx fracture Osteomyelitis History of osteomyelitis of both feet requiring multiple amputations. 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 History of total right hip arthroplasty (2002) History of ventral hernia repair (2006) History of tonsillectomy History of bilateral cataract extraction Family History Family History Mother Patient's mother is , Onset Age: 31 Father Suicide Social History Social History Social History: Surrogate medical decision maker: Annetta Jean Baptiste, daughter Code status: Full code. Smoking packs per day: 1 Smoking cigarettes per day: 20.0 Years smoked: 58 Smoking pack-years: 58.00 Smoking status: Current some day smoker Second hand tobacco smoke exposure: No Alcohol intake: never Substance use: never Substance use type: does not use Do You Feel Safe in your Home?: Yes Lack of Transportation: No Lack of Food: Never True Current Housing: I Have Housing Concerned About Future Housing: No Difficulty Paying Gas/Electric Bills: No Difficulty Paying for Meds: No Currently Unemployed: No Education: Grade School Difficulty w/ Childcare or Family Care: No Living arrangements: [facility] Additional living arrangements comments: . He has 7 children. 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 Spiritual care concerns: No Meds Home Medications and Allergies Home Medications ?Medication ?Instructions ?Recorded ?Confirmed ?Type folic acid 1 mg tablet 1 mg PO DAILY 12/02/20 10/30/24 History amlodipine 10 mg tablet 10 mg PO DAILY #90 tabs 12/04/21 10/30/24 Rx acetaminophen 650 mg 650 mg PO Q4H PRN PAIN 09/30/23 10/30/24 History tablet,extended release baclofen 5 mg tablet 5 mg PO Q8H PRN MUSCLE SPASM 09/30/23 10/30/24 History benzonatate 100 mg capsule 100 mg PO TID PRN Cough 09/30/23 10/30/24 History bisacodyl 10 mg rectal suppository 10 mg RECTAL DAILY PRN SEE 09/30/23 10/30/24 History INSTRUCTIONS cetirizine 10 mg tablet 10 mg PO DAILY 09/30/23 10/30/24 History cholecalciferol (vitamin D3) 25 25 mcg PO DAILY 09/30/23 10/30/24 History mcg (1,000 unit) tablet ipratropium 0.5 mg-albuterol 3 mg 3 ml inhalation Q4H PRN shortness 09/30/23 10/30/24 History (2.5 mg base)/3 mL nebulization of breath or wheezing soln ipratropium bromide 17 2 puff inhalation Q4H PRN sob 09/30/23 10/30/24 History mcg/actuation HFA aerosol inhaler (Atrovent HFA) magnesium citrate (Citroma oral 296 ml PO DAILY PRN SEE 09/30/23 10/30/24 History solution) INSTRUCTIONS magnesium hydroxide 400 mg/5 mL 30 ml PO QHS PRN Constipation 09/30/23 10/30/24 History oral suspension sertraline 50 mg tablet 100 mg PO QHS 09/30/23 10/30/24 History guaifenesin 600 mg tablet, 600 mg PO Q12H 05/25/24 10/30/24 History extended release 12 hr ipratropium 0.5 mg-albuterol 3 mg 3 ml inhalation Q4H PRN SOB 05/25/24 10/30/24 History (2.5 mg base)/3 mL nebulization soln sodium bicarbonate 650 mg tablet 1,300 mg (2 x 650 mg) PO TID #90 05/28/24 10/30/24 Rx tabs tramadol 50 mg tablet 50 mg PO Q6H PRN chronic pain #1 05/28/24 10/30/24 Rx tablet ascorbic acid (vitamin C) 500 mg 500 mg PO BID 07/23/24 10/30/24 History capsule cyanocobalamin (vitamin B-12) 500 1,000 mcg PO DAILY 07/23/24 10/30/24 History mcg tablet ferrous sulfate 325 mg (65 mg 325 mg PO DAILY 07/23/24 10/30/24 History iron) tablet gabapentin 300 mg capsule 300 mg PO BID 07/23/24 10/30/24 History hydrocortisone 1 % topical cream 1 applic topical .Q 8HR PRN FOR 07/23/24 10/30/24 History (Cortisone (hydrocortisone)) ITCHING apixaban 2.5 mg tablet (Eliquis) 2.5 mg PO BID 07/27/24 10/30/24 History fluticasone fur. 100 mcg-umeclid 1 inh inhalation DAILY 07/27/24 10/30/24 History 62.5 mcg-vilant 25 mcg inhalat.powder (Trelegy Ellipta) simvastatin 10 mg tablet 10 mg PO HS 07/27/24 10/30/24 History sodium zirconium cyclosilicate 10 10 g PO BID 14 days #30 ea 07/31/24 10/30/24 Rx gram oral powder packet (Lokelma) Saccharomyces boulardii 250 mg 250 mg PO BID 10/12/24 10/30/24 History capsule (Daily Probiotic (S. boulardii)) aspirin 325 mg capsule 325 mg PO DAILY 10/12/24 10/30/24 History diclofenac sodium 1 % topical gel 2 g topical TID 10/12/24 10/30/24 History (Arthritis Pain (diclofenac)) epoetin rosalie 10,000 unit/mL 10,000 unit subcut .MWF anemia 10/12/24 10/30/24 History injection solution (Procrit) hydralazine 25 mg tablet 25 mg PO TID 10/12/24 10/30/24 History hydroxyzine pamoate 25 mg capsule 25 mg PO Q12H PRN anxiety 10/12/24 10/30/24 History lanolin alcohols-mineral 1 applic topical BID 10/12/24 10/30/24 History oil-w.petrolatum-ceresin topical cream (Minerin Creme topical) multivitamin (Daily Multi-Vitamin 1 tablet PO DAILY 10/12/24 10/30/24 History tablet) pantoprazole 40 mg tablet,delayed 40 mg PO Q12H 10/12/24 10/30/24 History release prednisone 5 mg tablet 5 mg PO DAILY 10/12/24 10/30/24 History sodium phosphates 19 gram-7 118 ml RECTAL PRN 10/12/24 10/30/24 History gram/118 mL enema (Fleet Enema) torsemide 10 mg tablet 10 mg PO QAM 10/12/24 10/30/24 History trazodone 50 mg tablet 75 mg PO QHS 10/12/24 10/30/24 History Allergies Allergy/AdvReac Type Severity Reaction Status Date / Time niacin Allergy Intermediate Rash/itchin Verified 10/29/24 09:29 g hydrocodone (From [place]) AdvReac Confusion Verified 10/29/24 09:29 Vital Signs Vital Signs - 24 hr 10/29/24 16:42 10/29/24 20:55 10/29/24 20:55 Temperature 36.2 C L Pulse Rate 74 80 Respiratory Rate 20 Blood Pressure 135/63 Pulse Oximetry 97 98 Oxygen Delivery Nasal Cannula Nasal Cannula Oxygen Flow Rate 3 3 10/29/24 21:00 10/29/24 21:30 10/29/24 21:48 Temperature Pulse Rate 79 80 76 Respiratory Rate 17 20 Blood Pressure 152/87 H 169/70 H Pulse Oximetry 100 99 Oxygen Delivery Oxygen Flow Rate 10/29/24 21:48 10/29/24 22:00 10/29/24 22:15 Temperature Pulse Rate 79 82 77 Respiratory Rate 20 20 19 Blood Pressure 145/90 H 147/86 H Pulse Oximetry 100 100 Oxygen Delivery Oxygen Flow Rate 10/29/24 22:45 Temperature Pulse Rate 81 Respiratory Rate Blood Pressure 130/95 H Pulse Oximetry 99 Oxygen Delivery Oxygen Flow Rate Exam Narrative: GENERAL:chronically ill-appearing, well-nourished, and in moderate respiratory distress HEAD: Normocephalic, atraumatic. CHEST: Decreased lung sounds in the left lung field. Rhonchi throughout the right lung field. Significant wheezing noted with tachypnea. EXT: Left AKA. Toes 1 through 5 amputated on the right foot. Pitting edema in all extremities HEART: Regular rate and rhythm.? NEURO: ?Alert and oriented to baseline H&P: Results Labs Labs: Short CBC 10/29/24 Range/Units 17:14 WBC 13.9 H (4.5-10.0) K/mm3 Hgb 9.5 L (14.0-18.0) g/dL Hct 32.5 L (42.0-52.0) % Plt Count 213 (150-375) k/mm3 BMP 10/29/24 17:14 Sodium 140 Potassium 4.0 Chloride 105 Carbon Dioxide 34 H BUN 38 H Creatinine 3.10 H Glucose 125 H Calcium 7.9 L Cardiac Enzymes 10/29/24 10/29/24 Range/Units 17:14 20:51 Troponin I 0.222 H* 0.241 H* (0.000-0.034) ng/mL Liver Function 10/29/24 Range/Units 17:14 Total Bilirubin 0.6 (0.2-1.3) mg/dL AST 50 (17-59) U/L ALT 26 (6-50) U/L Alkaline Phosphatase 126 (38-126) U/L Albumin 3.5 (3.5-5.1) g/dL Pulse Oximetry SpO2 results: 94-98% on 32% FiO2 on BiPAP Attestation: I personally reviewed and interpreted this pulse oximetry as follows: Interpretation: Patient chronically wears 2 and half to 3 liters/minute nasal cannula and continues to require supplemental oxygen ECG Attestation: I personally reviewed and interpreted this ECG as follows: ECG completion date: 10/29/24 ECG completion time: 20:51 Prior ECG tracings: available for review Interpretation: Atrial fibrillation controlled ventricular response rate of 75 QRS duration 88 QTC 414 QRS axis 11? no STEMI Imaging Chest x-ray: Radiologist's impression: XR chest 1V Ordering provider: Fabi West PA-C History: 78 years Male with . dyspnea . Comparison: July 27, 2024 FINDINGS: MEDIASTINUM: The cardiac silhouette is slightly enlarged. Prominent emily. LUNGS: No pneumothorax. Left basilar atelectasis versus pneumonia with pleural effusion. OTHER: No free air under the diaphragm. Degenerative spine. IMPRESSION: Left basilar atelectasis versus pneumonia. Left moderate pleural effusion. Reviewed, dictated and finalized at location A. ECUTTER ASSISTANT Assessment and Plan Assessment and plan (1) Acute on chronic respiratory failure with hypoxia and hypercapnia: Code(s): J96.21 - Acute and chronic respiratory failure with hypoxia; J96.22 - Acute and chronic respiratory failure with hypercapnia Status: Acute Assessment and Plan: -COPD exacerbation dyspnea wheezing positive for COVID -ABG shows respiratory acidosis, treated with additional bronchodilators and IV magnesium but continued to worsen and required BiPAP -admit to IMU, placed in ICU as overflow (2) COPD exacerbation: Code(s): J44.1 - Chronic obstructive pulmonary disease with (acute) exacerbation Status: Chronic Assessment and Plan: -IV steroids, bronchodilators, BiPAP and IV antibiotics initiated by ER (3) COVID: Code(s): U07.1 - COVID-19 Status: Acute Assessment and Plan: -Unknown duration of positivity -Renal dysfunction precludes use of remdesivir at this time (4) Elevated troponin: Code(s): R77.8 - Other specified abnormalities of plasma proteins Status: Acute Assessment and Plan: -Chronically elevated, flat for 3 draws -Likely due to demand ischemia rather than ACS (5) Respiratory acidosis: Code(s): E87.29 - Other acidosis Status: Acute Assessment and Plan: -Improved with BiPap Plan Code status full code Quality VTE Prophylaxis VTE prophylaxis: pharmacologic ordered Due to a high probability of clinically significant, life threatening deterioration, the patient required my highest level of preparedness to intervene emergently and I personally spent this critical care time directly and personally managing the patient. This critical care time included obtaining a history; examining the patient; pulse oximetry; ordering and review of studies; arranging urgent treatment with development of a management plan; evaluation of patient's response to treatment; frequent reassessment; and discussions with other providers. It was exclusive of separately billable procedures and treating other patients and teaching time. Please see Assessment and Plan section and the rest of the note for further information on patient assessment and treatment. Critical Care time: 45 minutes Hospitalist MIPS Advance Care Plan I have confirmed that the patient's Advanced Care Plan is present, code status is documented, or surrogate decision maker is listed in patient medical record.: Yes Medication Reconciliation I have utilized all available resources to obtain, update and review the patients current medications (includes all prescriptions, OTC, herbals, cannabis, and nutritional supplements).: Yes
[2024-10-30] VITALS (17 sets, daily range): BP systolic 141–188; BP diastolic 63–86; PULSE 67–108; RESP 15–24; TEMP 36.1–36.9; O2SAT 94–98; BMI 22.4
[2024-10-30 00:06] LABS: Troponin I 0.234 ng/mL (0.000-0.034)
--- NOTE | 2024-10-30 00:49 | ECG_ITS ---
Test Date: 2024-10-30 00:49:43 Measurements Intervals [place] Rate: 64 P: 0 WV: 0 QRS: 14 QRSD: 93 T: 50 QT: 446 QTc: 463 Interpretive Statements ATRIAL FIBRILLATION POSSIBLE ANTERIOR MYOCARDIAL INFARCTION , OF INDETERMINATE AGE [30 ms Q WAVE IN V3/V4, OR R < 0.2 mV IN V4] Compared to ECG 10/29/2024 20:51:30 No significant changes Electronically Signed On 11-02-2024 14:54:05 COKE LOADER by Joel Pulido M.D.
--- NOTE | 2024-10-30 00:53 | PC.NURSE ---
Report received from Samira MILLER in ED.
--- NOTE | 2024-10-30 01:14 | ADMGEN ---
This patient, Ludin Mcguire, was admitted to Intensive Care Unit-8. Patient/family oriented to hospital policies and general routines including ID bracelet, bed and alarms, visiting hours, pain management, procedures, bathroom and other care routines, personal items, smoking policy, room service/diet, and visiting hours. Information on how to activate the Rapid Response Team has been discussed. Patient/Family are encouraged to report perceived risks to care and to ask questions if they do not understand what they are told or what they should do.
[2024-10-30] MEDS: BUMETANIDE INJ 1 MG/4 ML VIAL IV PUSH ×3 (03:29→17:22)
[2024-10-30 04:26] LABS: Basophils Absolute Auto 0.1 K/mm3 (0.0-0.1); Basophils Percent Auto 0.4 % (0.2-1.2); Hematocrit 37.2 % (42.0-52.0); Hemoglobin 10.8 g/dL (14.0-18.0); Immature Granulocyte Percent A 1.6 % (0-0.5); Lymphocytes Absolute Auto 0.21 K/mm3 (0.9-3.2); Lymphocytes Percent Auto 1.6 % (18.3-44.2); Mean Corpuscular Hemoglobin 28.3 pg (26-34); Mean Corpuscular Volume 97.4 fl (80-100); Mean Platelet Volume 9.2 fl (7.4-10.4); Monocytes Absolute Auto 0.1 K/mm3 (0.1-0.6); Monocytes Percent Auto 0.4 % (2.6-8.5); Neutrophils Absolute Auto 12.3 K/mm3 (1.3-6.7); Platelet Count Result 216 k/mm3 (150-375); Red Blood Count 3.82 M/mm3 (4.6-6.20); Red Cell Distribution Width 14.7 % (11.5-14.5); White Blood Count 12.9 K/mm3 (4.5-10.0)
[2024-10-30 04:37] LABS: Hemoglobin A1C 4.6 % (<5.7)
[2024-10-30 04:43] LABS: Alanine Aminotransferase 29 U/L (6-50); Alkaline Phosphatase 161 U/L (38-126); Anion Gap 7 mmol/L (4-12); Aspartate Amino Transferase 52 U/L (17-59); Bilirubin,Total 0.7 mg/dL (0.2-1.3); Blood Urea Nitrogen 38 mg/dL (9-20); Calcium 8.5 mg/dL (8.4-10.2); Carbon Dioxide 30 mmol/L (22-30); Chloride 104 mmol/L (98-107); Estimated CRCL calculation 18 ml/min; Estimated Glomerular Filt Rate 18; Glucose 145 mg/dL (65-110); Magnesium 2.5 mg/dL (1.6-2.3); Sodium 141 mmol/L (137-145)
[2024-10-30 04:46] LABS: Lactic Acid Reflex 0.9 mmol/L (0.7-2.0)
[2024-10-30 04:59] LABS: Procalcitonin 0.2 ng/mL
[2024-10-30 05:04] LABS: Troponin I 0.234 ng/mL (0.000-0.034)
[2024-10-30 05:13] LABS: Alveolar/Arterial O2 Gradient 83.2 mmHg; Base Excess ABG -2.6 mEq/l (+/-2.0); Fractional Inspired Oxygen 32 %; HCO3 ABG 23.4 mEq/l (22.0-26.0); Oxygen Content ABG 14.6 %vol (16.0-22.0); Oxygen Saturation ABG 96.4 % (95.0-100.0); Oxyhemoglobin 96.4 % THb (90.0-100.0); PCO2 ABG 45.8 mmHg (35.0-45.0); PO2 ABG 91.4 mmHg (80.0-100.0); PO2 FiO2 Ratio Arterial Blood 2.86 %; Total Hemoglobin 10.7 g/dL (12.0-18.0); pH ABG 7.326 (7.350-7.450)
[2024-10-30 05:18] LABS: Device NON-INVASIVE VENT; Modified Allen's Test Pass; Site Drawn LEFT RADIAL
[2024-10-30 05:19] LABS: Non-Invasive Expiratory Pressure 8 CMH2O; Non-Invasive Inspiratory Pressure 18 CMH2O; Non-Invasive Vent Rate 24 /MIN
[2024-10-30] MEDS: methylPREDNISolone SOD SUCC 40 MG VIAL IV PUSH ×4 (06:55→22:12)
[2024-10-30 07:51] LABS: Glucose Point of Care 138 mg/dl (65-105)
[2024-10-30] MEDS: FLUTICASONE/UMECLIDIN/VILANTER 100-62.5-25 MCG ELLIPTA 1 PUFF INHALATION (08:54)
[2024-10-30] MEDS: APIXABAN 2.5 MG TABLET PO (09:04)
[2024-10-30] MEDS: ASCORBIC ACID 500 MG TABLET PO ×2 (09:04→17:20)
[2024-10-30] MEDS: ASPIRIN 325 MG ENTERIC TABLET PO (09:04)
[2024-10-30] MEDS: FOLIC ACID 1 MG TABLET PO (09:05)
[2024-10-30] MEDS: LORATADINE 10 MG TABLET PO (09:05)
[2024-10-30] MEDS: SACCHAROMYCES BOULARDII 250 MG CAPSULE PO ×2 (09:05→17:20)
[2024-10-30] MEDS: SODIUM BICARBONATE TAB 650 MG TABLET 1300 MG PO ×3 (09:06→17:20)
[2024-10-30] MEDS: guaiFENesin 12 HR 600 MG TABCR PO ×2 (09:06→22:12)
[2024-10-30] MEDS: MULTIVITAMINS THERAPEUTIC TAB (*BKC) 1 TABLET PO (09:06)
[2024-10-30] MEDS: PANTOPRAZOLE 40 MG TABLET PO ×2 (09:06→22:11)
[2024-10-30] MEDS: GABAPENTIN 300 MG CAPSULE PO ×2 (09:06→22:10)
[2024-10-30] MEDS: CHOLECALCIFEROL 1,000 UNITS TABLET 1000 UNITS PO (09:06)
[2024-10-30] MEDS: CYANOCOBALAMIN 1,000 MCG TABLET 1000 MCG PO (09:06)
[2024-10-30] MEDS: EPOETIN ALFA-EPBX 10,000 UNITS/ML VIAL 10000 UNITS SUB-Q (09:16)
[2024-10-30] MEDS: EUCERIN CREAM 120 GM JAR 1 APPLIC TOPICAL ×2 (09:17→17:22)
--- NOTE | 2024-10-30 09:41 | P.CONNP_ITS ---
Assessment and Plan Assessment and plan (1) Chronic kidney disease, stage IV (severe): Code(s): N18.4 - Chronic kidney disease, stage 4 (severe) Status: Chronic Assessment and Plan: * baseline creatinine appears to have averaged out to ~ 3.0 - 3.5mg/dl in the last 6 months * outpatient evaluation noted: * normal renal ultrasound * negative serologies with the exceptions of a positive KEITH (but negative dsDNA-Ab), low C3, and a possible M-spike on SPEP * about 1100mg of proteinuria * thought to be secondary to hypertension, diabetes, vascular disease, chronic diuretic therapy, BPH, and age-related change (2) Acute on chronic respiratory failure with hypoxia and hypercapnia: Code(s): J96.21 - Acute and chronic respiratory failure with hypoxia; J96.22 - Acute and chronic respiratory failure with hypercapnia Status: Acute Assessment and Plan: * multifactorial etiology: * COPD exacerbation * left pleural effusion * COVD-19 * CHF/volume overload * pneumonia/bronchitis(?) * on antibiotics * diuresis as tolerated * continue bronchodilators and steroids * Pulmonary consulted (3) COVID-19: Code(s): U07.1 - COVID-19 Status: Acute Assessment and Plan: * as noted by testing in ER * on steroids already * not a candidate for remdesivir given #1 * continue supplemental oxygen * follow respiratory status (4) COPD exacerbation: Code(s): J44.1 - Chronic obstructive pulmonary disease with (acute) exacerbation Status: Chronic Assessment and Plan: * see #2 * severe obstruction noted by last PFTs * continue steroids, nebulizer treatments, and antibiotics * wean steroids as tolerated * on Trelegy inhaler (5) Pleural effusion, left: Code(s): J90 - Pleural effusion, not elsewhere classified Status: Acute Assessment and Plan: * as noted by admission imaging * diuresis as tolerated * consider thoracentesis (?) * suspect contributing to #2 (6) HTN (hypertension): Qualifiers: Hypertension type: essential hypertension Qualified Code(s): I10 - Essential (primary) hypertension Code(s): I10 - Essential (primary) hypertension Status: Chronic Assessment and Plan: * reasonable control * follow trend of hemodynamics * resume BP medications (amlodipine + hydralazine) as needed * off ESTIVEN-I/ARB/spironolactone due to previous issues with hyperkalemia (7) Profound anemia: Code(s): D64.9 - Anemia, unspecified Status: Chronic Assessment and Plan: * due to CKD possibly worsened by acute illness * on Retacrit (while hospitalized as well as an outpatient) * follow trend of H/H (8) Afib: Qualifiers: Atrial fibrillation type: persistent (not longstanding) Qualified Code(s): I48.19 - Other persistent atrial fibrillation Code(s): I48.91 - Unspecified atrial fibrillation Status: Chronic Assessment and Plan: * rate control strategy * on anticoagulation (9) Type 2 diabetes mellitus: Qualifiers: Diabetes mellitus roasterman insulin use: without alf use Diabetes mellitus complication detail: with foot ulcer Code(s): E11.9 - Type 2 diabetes mellitus without complications Status: Chronic Assessment and Plan: * follow accu-cheks * no apparent home medications despite history * glycemic control per hospitalist I will continue to follow the patient with you while he remains hospitalized and make further recommendations as deemed necessary. Thank you for allowing me to participate in the care of this patient. L History of Present Illness Reason for Consult Consult date: 10/30/24 Reason for consult: chronic renal failure Chief Complaint Chief complaint: CHF/COPD/COVID History of Present Illness Narrative: A great deal of the history that I have obtained is from review of the electronic medical record as well as discussion with the physicians/nurses involved in the patient's care as the patient is an extremely poor historian with regard to the events that led to his admission to the hospital. The patient is a 78-year-old male with an extensive past medical history as outlined below who presented to [facility] Emergency Room due to complaints of worsening shortness of breath and abnormal outpatient chest x- ray. Apparently, the patient just recently completed a course of treatment for pneumonia but he still been having complaints of shortness of breath. An outpatient chest x-ray done in his nursing facility demonstrated a large left- sided pleural effusion. This finding in conjunction with his worsening shortness of breath led to his presentation to the emergency room for further assessment. Workup and evaluation emergency room demonstrated the patient to be hemodynamically stable and in no acute distress. On further questioning he did report that he did feel more short of breath than usual/than baseline in association with a worsening cough. He does not appear to require any further oxygen therapy than what he is normally on at baseline but he does report left- sided pleuritic chest discomfort. He denies any overt fevers, chills, nausea, vomiting, diarrhea, hematochezia, melena, or hemoptysis. He did not appear to be any respiratory distress but diffuse wheezing was audible. he was initiated on nebulizer treatments and IV steroids and routine blood tests were done which demonstrated labs consistent with his known history of chronic kidney disease without any critical electrolyte abnormalities and a CBC with a mildly elevated white blood cell count and anemia close to his baseline. His BNP was elevated and his chest x-ray showed infiltrates and a moderate size left-sided pleural effusion. Viral testing for influenza and RSV were negative but he was found to be COVID positive. An ABG was done which demonstrated evidence of acute hypercarbic respiratory failure. In addition with nebulizer treatments and steroids, he also received a dose of IV Lasix as well. Repeat ABG was worse despite these therapeutic interventions and hence the placement was placed on BiPAP therapy. After appropriate cultures were obtained, he was started on antibiotics and he was subsequently admitted to the IMU for further evaluation therapy. Since his admission, his respiratory status seems to have improved as he he was weaned off BiPAP therapy this morning and is back on 3 L of oxygen by nasal cannula which is his baseline with relative stability in his oxygenation. Renal consultation was requested due to his chronic kidney disease. The patient is somewhat familiar to me as I take care of him in the outpatient clinic for management of his chronic kidney disease. Interestingly, I just saw the patient yesterday where outpatient labs demonstrated relative stability in his chronic kidney disease. During that office visit, he complained of increased congestion but did not report to me that he felt any worsening of his baseline shortness of breath. His baseline creatinine normally runs around 3.0 - 3.5 mg/dL in the last several months with the presumed etiology being hypertension, diabetes, vascular disease, chronic diuretic therapy, and age-related change. His evaluation to date demonstrated a negative serological profile the exception of a possible M spike on his serum protein electrophoresis in association with about 1100 mg of proteinuria. I had considered doing a kidney biopsy for more definitive evaluation of his kidney disease particularly since he had a significant decline in his renal function from normal in 2021 to a value of 4.1 mg/dL in late April of 2024 but since his kidney function seems to have stabilized in the last few months is seems apparent that he does have underlying chronic kidney disease and more importantly, I do not think a kidney biopsy would really change current management at this time. On that last office visit, I did discuss with the patient's daughter the likelihood of kidney disease progression and the possibility that he may require renal replacement therapy/dialysis in the future. Currently, the time my evaluation, he does not appear to be in any acute distress. Review of Systems 2 Review of Systems: As per HPI. [facility] Past Medical History Medical History (Updated 10/31/24 @ 14:17 by Polo Calero MD) Diabetic retinopathy Dilated eye exam December 2023 demonstrating mild bilateral disease CKD (chronic kidney disease) stage 4, GFR 15-29 ml/min COVID-19 Metabolic acidosis Alcohol abuse Acute hyperkalemia Acute kidney injury Hypoxia Acidosis Abrasion of left leg Pulmonary hypertension Echocardiogram on 06/08/2021 showed normal left ventricular systolic function with an EF estimated 65 to 70%, mildly increased LV wall thickness, severely enlarged right atrial chamber, mildly enlarged left atrial chamber, mild mitral valve and trace tricuspid valve regurgitation, and mild pulmonary hypertension with an estimated pulmonary arterial systolic pressure of 35 mmHg. Diabetic foot ulcer Acute and chronic respiratory failure Pancreatitis (03/2021) MRSA (methicillin resistant Staphylococcus aureus) septicemia (09/2020) Alcohol abuse Chronic anemia Ichthyosis vulgaris Osteoarthritis Former smoker Irritable bowel syndrome Chronic respiratory failure with hypoxia, on home O2 therapy Gastroesophageal reflux disease Benign prostatic hyperplasia Type 2 diabetes mellitus Hemoglobin A1c was 6.6% on 06/09/2021. Chronic obstructive pulmonary disease Severe obstructive disease without bronchodilator relief noted on PFTs September 2019 Hypertension Diastolic congestive heart failure Echocardiogram 2020 EF 65-70, mildly increased left ventricular wall thickness, severe right atrial enlargement, mild left atrial enlargement, mild pulmonary hypertension with RVSP of 35, indeterminate diastolic function due to AFib Persistent atrial fibrillation Diabetic peripheral neuropathy Hearing loss Cerebrovascular accident Foot osteomyelitis, left Wound, open, foot Diabetic foot infection (Unknown) Severe sepsis Anxiety Depression Sacrum and coccyx fracture Osteomyelitis History of osteomyelitis of both feet requiring multiple amputations. 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 History of total right hip arthroplasty (2002) History of ventral hernia repair (2006) History of tonsillectomy History of bilateral cataract extraction Family History Family History Mother Patient's mother is , Onset Age: 31 Father Suicide Social History Social History Social History: Surrogate medical decision maker: Annetta Jean Baptiste, daughter Code status: Full code. Smoking packs per day: 1 Smoking cigarettes per day: 20.0 Years smoked: 58 Smoking pack-years: 58.00 Smoking status: Current some day smoker Second hand tobacco smoke exposure: No Alcohol intake: never Substance use: never Substance use type: does not use Do You Feel Safe in your Home?: Yes Lack of Transportation: No Lack of Food: Never True Current Housing: I Have Housing Concerned About Future Housing: No Difficulty Paying Gas/Electric Bills: No Difficulty Paying for Meds: No Currently Unemployed: No Education: Grade School Difficulty w/ Childcare or Family Care: No Living arrangements: fdc Additional living arrangements comments: . He has 7 children. 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 Spiritual care concerns: No Meds Home Medications and Allergies Home Medications ?Medication ?Instructions ?Recorded ?Confirmed ?Type folic acid 1 mg tablet 1 mg PO DAILY 12/02/20 10/30/24 History amlodipine 10 mg tablet 10 mg PO DAILY #90 tabs 12/04/21 10/30/24 Rx acetaminophen 650 mg 650 mg PO Q4H PRN PAIN 09/30/23 10/30/24 History tablet,extended release baclofen 5 mg tablet 5 mg PO Q8H PRN MUSCLE SPASM 09/30/23 10/30/24 History benzonatate 100 mg capsule 100 mg PO TID PRN Cough 09/30/23 10/30/24 History bisacodyl 10 mg rectal suppository 10 mg RECTAL DAILY PRN SEE 09/30/23 10/30/24 History INSTRUCTIONS cetirizine 10 mg tablet 10 mg PO DAILY 09/30/23 10/30/24 History cholecalciferol (vitamin D3) 25 25 mcg PO DAILY 09/30/23 10/30/24 History mcg (1,000 unit) tablet ipratropium 0.5 mg-albuterol 3 mg 3 ml inhalation Q4H PRN shortness 09/30/23 10/30/24 History (2.5 mg base)/3 mL nebulization of breath or wheezing soln ipratropium bromide 17 2 puff inhalation Q4H PRN sob 09/30/23 10/30/24 History mcg/actuation HFA aerosol inhaler (Atrovent HFA) magnesium citrate (Citroma oral 296 ml PO DAILY PRN SEE 09/30/23 10/30/24 History solution) INSTRUCTIONS magnesium hydroxide 400 mg/5 mL 30 ml PO QHS PRN Constipation 09/30/23 10/30/24 History oral suspension sertraline 50 mg tablet 100 mg PO QHS 09/30/23 10/30/24 History guaifenesin 600 mg tablet, 600 mg PO Q12H 05/25/24 10/30/24 History extended release 12 hr ipratropium 0.5 mg-albuterol 3 mg 3 ml inhalation Q4H PRN SOB 05/25/24 10/30/24 History (2.5 mg base)/3 mL nebulization soln sodium bicarbonate 650 mg tablet 1,300 mg (2 x 650 mg) PO TID #90 05/28/24 10/30/24 Rx tabs tramadol 50 mg tablet 50 mg PO Q6H PRN chronic pain #1 05/28/24 10/30/24 Rx tablet ascorbic acid (vitamin C) 500 mg 500 mg PO BID 07/23/24 10/30/24 History capsule cyanocobalamin (vitamin B-12) 500 1,000 mcg PO DAILY 07/23/24 10/30/24 History mcg tablet ferrous sulfate 325 mg (65 mg 325 mg PO DAILY 07/23/24 10/30/24 History iron) tablet gabapentin 300 mg capsule 300 mg PO BID 07/23/24 10/30/24 History hydrocortisone 1 % topical cream 1 applic topical .Q 8HR PRN FOR 07/23/24 10/30/24 History (Cortisone (hydrocortisone)) ITCHING apixaban 2.5 mg tablet (Eliquis) 2.5 mg PO BID 07/27/24 10/30/24 History fluticasone fur. 100 mcg-umeclid 1 inh inhalation DAILY 07/27/24 10/30/24 History 62.5 mcg-vilant 25 mcg inhalat.powder (Trelegy Ellipta) simvastatin 10 mg tablet 10 mg PO HS 07/27/24 10/30/24 History sodium zirconium cyclosilicate 10 10 g PO BID 14 days #30 ea 07/31/24 10/30/24 Rx gram oral powder packet (Lokelma) Saccharomyces boulardii 250 mg 250 mg PO BID 10/12/24 10/30/24 History capsule (Daily Probiotic (S. boulardii)) aspirin 325 mg capsule 325 mg PO DAILY 10/12/24 10/30/24 History diclofenac sodium 1 % topical gel 2 g topical TID 10/12/24 10/30/24 History (Arthritis Pain (diclofenac)) epoetin rosalie 10,000 unit/mL 10,000 unit subcut .MWF anemia 10/12/24 10/30/24 History injection solution (Procrit) hydralazine 25 mg tablet 25 mg PO TID 10/12/24 10/30/24 History hydroxyzine pamoate 25 mg capsule 25 mg PO Q12H PRN anxiety 10/12/24 10/30/24 History lanolin alcohols-mineral 1 applic topical BID 10/12/24 10/30/24 History oil-w.petrolatum-ceresin topical cream (Minerin Creme topical) multivitamin (Daily Multi-Vitamin 1 tablet PO DAILY 10/12/24 10/30/24 History tablet) pantoprazole 40 mg tablet,delayed 40 mg PO Q12H 10/12/24 10/30/24 History release prednisone 5 mg tablet 5 mg PO DAILY 10/12/24 10/30/24 History sodium phosphates 19 gram-7 118 ml RECTAL PRN 10/12/24 10/30/24 History gram/118 mL enema (Fleet Enema) torsemide 10 mg tablet 10 mg PO QAM 10/12/24 10/30/24 History trazodone 50 mg tablet 75 mg PO QHS 10/12/24 10/30/24 History Allergies Allergy/AdvReac Type Severity Reaction Status Date / Time niacin Allergy Intermediate Rash/itchin Verified 10/29/24 09:29 g hydrocodone (From [place]) AdvReac Confusion Verified 10/29/24 09:29 Vital Signs Vital Signs Temp Pulse Resp BP Pulse Ox O2 Del Method O2 Flow Rate 10/30/24 08:53 97 Nasal Cannula 3 10/30/24 08:00 70 10/30/24 08:00 97 Nasal Cannula 3 10/30/24 08:00 97.6 F 71 17 159/86 H 97 10/30/24 06:00 74 10/30/24 05:55 77 24 H 98 BiPAP 10/30/24 04:00 69 10/30/24 04:00 97.0 F L 79 24 H 169/78 H 95 10/30/24 04:00 BiPAP 10/30/24 03:09 68 24 H 94 BiPAP 10/30/24 02:26 BiPAP 10/30/24 02:15 74 24 H 141/70 H 94 10/30/24 01:30 97.1 F L 78 24 H 188/63 H 97 10/30/24 00:00 79 24 H 96 BiPAP 10/29/24 23:15 76 24 H 97 BiPAP 10/29/24 22:45 81 130/95 H 99 10/29/24 22:15 77 19 147/86 H 100 10/29/24 22:00 82 20 145/90 H 100 10/29/24 21:48 79 20 10/29/24 21:48 76 20 10/29/24 21:30 80 169/70 H 99 10/29/24 21:00 79 17 152/87 H 100 10/29/24 20:55 98 Nasal Cannula 3 10/29/24 20:55 80 10/29/24 16:42 97.2 F L 74 20 135/63 97 Nasal Cannula 3 Exam 2 Narrative: GENERAL APPEARANCE: chronically ill-appearing male in no acute distress HEENT: normocephalic, atraumatic, normal conjunctiva and sclera, nares patient NECK: no lymphadenopathy, thyromegaly, or JVD MOUTH: dry oral mucosa CARDIOVASCULAR: IRRR, normal S1 and S2, no rub RESPIRATORY: coarse breath sounds; few crackles on the right and diminished on left ABDOMEN: soft, nontender, nondistended, positive bowel sounds present EXTREMITIES: no evidence of cyanosis, clubbing, 1+ edema; s/p left AKA and right TMA NEUROLOGICAL: awake but confused with limited insight; no focal deficits Results Lab Results 11/01/24 07:15 11/01/24 07:15 Lab results: Most recent lab results ABG pH 7.326 (7.350-7.450) L 10/30/24 04:59 ABG pCO2 45.8 mmHg (35.0-45.0) H 10/30/24 04:59 ABG pO2 91.4 mmHg (80.0-100.0) 10/30/24 04:59 ABG HCO3 23.4 mEq/l (22.0-26.0) 10/30/24 04:59 ABG O2 Saturation 96.4 % (95.0-100.0) 10/30/24 04:59 Calcium 8.5 mg/dL (8.4-10.2) 10/30/24 04:17 Phosphorus 5.0 mg/dL (2.5-4.5) H 10/30/24 04:17 Magnesium 2.5 mg/dL (1.6-2.3) H 10/30/24 04:17
[2024-10-30] MEDS: INSULIN ASPART (*BKC) 100 UNITS/ML SUB-Q (12:24)
[2024-10-30 12:25] LABS: Glucose Point of Care 292 mg/dl (65-105)
--- NOTE | 2024-10-30 14:45 | P.CONPL_ITS ---
Assessment and Plan Assessment and plan (1) Pleural effusion: Code(s): J90 - Pleural effusion, not elsewhere classified Status: Acute Assessment and Plan: Large left pleural effusion with compressive atelectasis. This needs to be tapped for diagnostic and therapeutic purposes. He needs a thoracentesis however Eliquis needs to be stopped. He has atrial fibrillation therefore will need a bridge of anticoagulation. He has renal failure, and Lovenox is not an option with his creatinine clearance of 18. He needs a heparin drip to anticoagulate until before the thoracentesis. (2) Chronic obstructive pulmonary disease: Code(s): J44.9 - Chronic obstructive pulmonary disease, unspecified Status: Chronic Assessment and Plan: In 2014 he had an FEV1 1.58 L, 49%, and has smoked until recently. This is severe obstruction. He is on Trelegy 100, one puff a day, also on DuoNeb and ipratropium. Can stop both Duoneb and iptraopium as these provide additional LAMA, does not need if he is using Trelegy. He can continue albuterol nebulized or inhaler for rescue use for shortness of breath. His chart indicates a history of asthma. He has ichthyosis, skin disorder and this can be seen in people with asthma/atopic diseases. 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 He has a positive KEITH 1:40, low positive, cytoplasmic pattern. He has negative ANCA and anti double stranded DNA. He does not have an auro immune diagnosis. Last echo was 12/30/2021; RVSP 49 mmHg. (4) COVID: Code(s): U07.1 - COVID-19 Status: Acute Assessment and Plan: His inflammatory markers are in the normal range. ALT is 29, AST is 52. CRP is pending. Lactic acid is 0.9. His O2 requirement is not elevated. He is currently on 3 L. He has been on oxygen for several years at home somewhere around 2-3 L so his oxygenation is stable. He did present with increasing cough and shortness of breath with a moderate left pleural effusion. This is not generally how COVID presents. He does not have bilateral infiltrates or high O2 needs. He does not have urgent indication to start any anti COVID medications. His creatinine clearance is up so remdesivir is not an option. He is on Solu- Medrol for COPD, does not need dexamethasone. Plan plan: 1. Left thoracentesis, evaluate fluid. He will need Eliquis held, about 5 days, may be able to get his thoracentesis Wed next week. 2. Stop Eliquis now, switch to heparin drip awaiting thoracentesis. 3. Wean O2 as tolerated. He is on 3 L now, sat 96%; last ABG was perfect on BiPAP 18/8 and 32%. He does not need high O2 flow to maintain adequate saturation. 4. May need sleep testing out patient. He tells me that he wears a machine like this hospital bipap at [facility], I see no sleep testing in the system. His pCO2 has normalized, and his serum bicarb dropped into the normal range. This may be due to this renal failure. Change BiPAP to 12/5 and 32%. He says he uses PAP at home, I see nothing in his chart. 5. Stop ipratropium and Duoneb. He gets Trelegy, has 3 long acting meds, does not need more LAMA. 6. He does not have increased inflammatory markers seen with active COVID infection. I believe that his COVID swab being positive is an incidental finding. We will continue to watch this as well as his other inflammatory markers. His CRP is pending. History of Present Illness History of Present Illness Consult date: 10/30/24 Chief complaint: CHF/COPD/COVID Narrative: patient was seen Oct 30, 2024 14:45 ICU 8 IMU as an overflow patient. He is not an ICU patient. 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 Chronic atrial fib on Eliquis. 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 He was smoking until a few weeks ago. The history was difficult to obtain. He lives at [facility], a fdc. He was admitted October 12 through the for severe anemia, hemoglobin 6.5, received 2 units of blood, unremarkable EGD and colonoscopy. He was readmitted October 29 with increasing shortness of breath. His chest x-ray shows large left pleural effusion with compressive atelectasis. See the image below. He has worsening of his hypercapnic hypoxemic respiratory failure. Dr Chicas' note from September states that the patient had a fall on his right side and broke ribs. This effusion is on the left side. He was (+) for SARS-CoV-2 on Oct 29. Had COVID in Jun 2024, as well. In the emergency department ceftriaxone and azithromycin IV were ordered, he received each of these. He says that he uses inhalers when he is at [facility]. He uses oxygen around the clock. He has a daily cough with sputum production, some days sputum is clear and other days sputum is discolored. DATA * white blood cell count October 30 12.9, hemoglobin 10.8, hematocrit 37.2, platelet 216 k. * 10/29/24 CXR - moderate L pleural effusion & atelectasis. Right side is clear. * 07/26/2015 PFT -moderately severe obstructive ventilatory impairment with good response to bronchodilator, air trapping, normal diffusion 3 07/26/15 after bronchodilator FVC 2.90 L, 64% 3.31 L, 70% +14 FEV1 1.58 L, 49% 1.68 L, 53%, +7 FEV1/FVC 54% 51% BCO94-66% TLC 7.63 L, 109% RV 4.63 L, 175% ERV RV/TLC DLCO 19.4, 78 DLCO/VA 4.75, 12.9 * ABG Oct 2 Oct 29 Oct 30 pH 7.23 7.22 7.36 pCO2 67 70 46 pO2 93 79 91 HCO3 28 31 23 sat O2 delivery O2 3 L 7 L 32% rate IPAP 18 EPAP 8 * 07/30/2024 KEITH 1:40, cytoplasmic pattern, negative ANCA, negative [id number] DNA. * 12/30/2021 echo ; Technically difficult study with limited views. 2. Left ventricular chamber dimension is normal. 3. Left ventricular systolic function is hyperdynamic, estimated at >70%. 4. There is mildly increased left ventricular wall thickness. 5. Left atrial chamber dimension is moderately enlarged. 6. Right atrial chamber dimension is moderately enlarged. 7. There is trace tricuspid valve regurgitation. 8. Moderate pulmonary hypertension, estimated pulmonary arterial systolic pressure is 49 mmHg. Review of Systems 2 Review of Systems: All systems reviewed & are unremarkable except as noted in HPI and below [facility] Past Medical History Medical History (Updated 10/30/24 @ 16:43 by Ciara Gomez MD) COVID-19 Diabetic retinopathy Dilated eye exam December 2023 demonstrating mild bilateral disease CKD (chronic kidney disease) stage 4, GFR 15-29 ml/min Metabolic acidosis Alcohol abuse Acute hyperkalemia Acute kidney injury Hypoxia Acidosis Abrasion of left leg Pulmonary hypertension Echocardiogram on 06/08/2021 showed normal left ventricular systolic function with an EF estimated 65 to 70%, mildly increased LV wall thickness, severely enlarged right atrial chamber, mildly enlarged left atrial chamber, mild mitral valve and trace tricuspid valve regurgitation, and mild pulmonary hypertension with an estimated pulmonary arterial systolic pressure of 35 mmHg. Diabetic foot ulcer Acute and chronic respiratory failure Pancreatitis (03/2021) MRSA (methicillin resistant Staphylococcus aureus) septicemia (09/2020) Alcohol abuse Chronic anemia Ichthyosis vulgaris Osteoarthritis Former smoker Irritable bowel syndrome Chronic respiratory failure with hypoxia, on home O2 therapy Gastroesophageal reflux disease Benign prostatic hyperplasia Type 2 diabetes mellitus Hemoglobin A1c was 6.6% on 06/09/2021. Chronic obstructive pulmonary disease Severe obstructive disease without bronchodilator relief noted on PFTs September 2019 Hypertension Diastolic congestive heart failure Echocardiogram 2020 EF 65-70, mildly increased left ventricular wall thickness, severe right atrial enlargement, mild left atrial enlargement, mild pulmonary hypertension with RVSP of 35, indeterminate diastolic function due to AFib Persistent atrial fibrillation Diabetic peripheral neuropathy Hearing loss Cerebrovascular accident Foot osteomyelitis, left Wound, open, foot Diabetic foot infection (Unknown) Severe sepsis Anxiety Depression Sacrum and coccyx fracture Osteomyelitis History of osteomyelitis of both feet requiring multiple amputations. 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 History of total right hip arthroplasty (2002) History of ventral hernia repair (2006) History of tonsillectomy History of bilateral cataract extraction Family History Family History Mother Patient's mother is , Onset Age: 31 Father Suicide Social History Social History Social History: Surrogate medical decision maker: Annetta Jean Baptiste, daughter Code status: Full code. Smoking packs per day: 1 Smoking cigarettes per day: 20.0 Years smoked: 58 Smoking pack-years: 58.00 Smoking status: Current some day smoker Second hand tobacco smoke exposure: No Alcohol intake: never Substance use: never Substance use type: does not use Do You Feel Safe in your Home?: Yes Lack of Transportation: No Lack of Food: Never True Current Housing: I Have Housing Concerned About Future Housing: No Difficulty Paying Gas/Electric Bills: No Difficulty Paying for Meds: No Currently Unemployed: No Education: Grade School Difficulty w/ Childcare or Family Care: No Living arrangements: fdc Additional living arrangements comments: . He has 7 children. 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 Spiritual care concerns: No Meds Home Medications and Allergies Home Medications ?Medication ?Instructions ?Recorded ?Confirmed ?Type folic acid 1 mg tablet 1 mg PO DAILY 12/02/20 10/30/24 History amlodipine 10 mg tablet 10 mg PO DAILY #90 tabs 12/04/21 10/30/24 Rx acetaminophen 650 mg 650 mg PO Q4H PRN PAIN 09/30/23 10/30/24 History tablet,extended release baclofen 5 mg tablet 5 mg PO Q8H PRN MUSCLE SPASM 09/30/23 10/30/24 History benzonatate 100 mg capsule 100 mg PO TID PRN Cough 09/30/23 10/30/24 History bisacodyl 10 mg rectal suppository 10 mg RECTAL DAILY PRN SEE 09/30/23 10/30/24 History INSTRUCTIONS cetirizine 10 mg tablet 10 mg PO DAILY 09/30/23 10/30/24 History cholecalciferol (vitamin D3) 25 25 mcg PO DAILY 09/30/23 10/30/24 History mcg (1,000 unit) tablet ipratropium 0.5 mg-albuterol 3 mg 3 ml inhalation Q4H PRN shortness 09/30/23 10/30/24 History (2.5 mg base)/3 mL nebulization of breath or wheezing soln ipratropium bromide 17 2 puff inhalation Q4H PRN sob 09/30/23 10/30/24 History mcg/actuation HFA aerosol inhaler (Atrovent HFA) magnesium citrate (Citroma oral 296 ml PO DAILY PRN SEE 09/30/23 10/30/24 History solution) INSTRUCTIONS magnesium hydroxide 400 mg/5 mL 30 ml PO QHS PRN Constipation 09/30/23 10/30/24 History oral suspension sertraline 50 mg tablet 100 mg PO QHS 09/30/23 10/30/24 History guaifenesin 600 mg tablet, 600 mg PO Q12H 05/25/24 10/30/24 History extended release 12 hr ipratropium 0.5 mg-albuterol 3 mg 3 ml inhalation Q4H PRN SOB 05/25/24 10/30/24 History (2.5 mg base)/3 mL nebulization soln sodium bicarbonate 650 mg tablet 1,300 mg (2 x 650 mg) PO TID #90 05/28/24 10/30/24 Rx tabs tramadol 50 mg tablet 50 mg PO Q6H PRN chronic pain #1 05/28/24 10/30/24 Rx tablet ascorbic acid (vitamin C) 500 mg 500 mg PO BID 07/23/24 10/30/24 History capsule cyanocobalamin (vitamin B-12) 500 1,000 mcg PO DAILY 07/23/24 10/30/24 History mcg tablet ferrous sulfate 325 mg (65 mg 325 mg PO DAILY 07/23/24 10/30/24 History iron) tablet gabapentin 300 mg capsule 300 mg PO BID 07/23/24 10/30/24 History hydrocortisone 1 % topical cream 1 applic topical .Q 8HR PRN FOR 07/23/24 10/30/24 History (Cortisone (hydrocortisone)) ITCHING apixaban 2.5 mg tablet (Eliquis) 2.5 mg PO BID 07/27/24 10/30/24 History fluticasone fur. 100 mcg-umeclid 1 inh inhalation DAILY 07/27/24 10/30/24 History 62.5 mcg-vilant 25 mcg inhalat.powder (Trelegy Ellipta) simvastatin 10 mg tablet 10 mg PO HS 07/27/24 10/30/24 History sodium zirconium cyclosilicate 10 10 g PO BID 14 days #30 ea 07/31/24 10/30/24 Rx gram oral powder packet (Lokelma) Saccharomyces boulardii 250 mg 250 mg PO BID 10/12/24 10/30/24 History capsule (Daily Probiotic (S. boulardii)) aspirin 325 mg capsule 325 mg PO DAILY 10/12/24 10/30/24 History diclofenac sodium 1 % topical gel 2 g topical TID 10/12/24 10/30/24 History (Arthritis Pain (diclofenac)) epoetin rosalie 10,000 unit/mL 10,000 unit subcut .MWF anemia 10/12/24 10/30/24 History injection solution (Procrit) hydralazine 25 mg tablet 25 mg PO TID 10/12/24 10/30/24 History hydroxyzine pamoate 25 mg capsule 25 mg PO Q12H PRN anxiety 10/12/24 10/30/24 History lanolin alcohols-mineral 1 applic topical BID 10/12/24 10/30/24 History oil-w.petrolatum-ceresin topical cream (Minerin Creme topical) multivitamin (Daily Multi-Vitamin 1 tablet PO DAILY 10/12/24 10/30/24 History tablet) pantoprazole 40 mg tablet,delayed 40 mg PO Q12H 10/12/24 10/30/24 History release prednisone 5 mg tablet 5 mg PO DAILY 10/12/24 10/30/24 History sodium phosphates 19 gram-7 118 ml RECTAL PRN 10/12/24 10/30/24 History gram/118 mL enema (Fleet Enema) torsemide 10 mg tablet 10 mg PO QAM 10/12/24 10/30/24 History trazodone 50 mg tablet 75 mg PO QHS 10/12/24 10/30/24 History Allergies Allergy/AdvReac Type Severity Reaction Status Date / Time niacin Allergy Intermediate Rash/itchin Verified 10/29/24 09:29 g hydrocodone (From [place]) AdvReac Confusion Verified 10/29/24 09:29 Vital Signs Vital Signs - 24 hr 10/29/24 16:42 10/29/24 20:55 10/29/24 20:55 Temperature 36.2 C L Pulse Rate 74 80 Respiratory Rate 20 Blood Pressure 135/63 Pulse Oximetry 97 98 Oxygen Delivery Nasal Cannula Nasal Cannula Oxygen Flow Rate 3 3 Fraction of Inspired Oxygen 10/29/24 21:00 10/29/24 21:30 10/29/24 21:48 Temperature Pulse Rate 79 80 76 Respiratory Rate 17 20 Blood Pressure 152/87 H 169/70 H Pulse Oximetry 100 99 Oxygen Delivery Oxygen Flow Rate Fraction of Inspired Oxygen 10/29/24 21:48 10/29/24 22:00 10/29/24 22:15 Temperature Pulse Rate 79 82 77 Respiratory Rate 20 20 19 Blood Pressure 145/90 H 147/86 H Pulse Oximetry 100 100 Oxygen Delivery Oxygen Flow Rate Fraction of Inspired Oxygen 10/29/24 22:45 10/29/24 23:15 10/30/24 00:00 Temperature Pulse Rate 81 76 79 Respiratory Rate 24 H 24 H Blood Pressure 130/95 H Pulse Oximetry 99 97 96 Oxygen Delivery BiPAP BiPAP Oxygen Flow Rate Fraction of Inspired Oxygen 10/30/24 01:30 10/30/24 02:15 10/30/24 02:26 Temperature 36.2 C L Pulse Rate 78 74 Respiratory Rate 24 H 24 H Blood Pressure 188/63 H 141/70 H Pulse Oximetry 97 94 Oxygen Delivery BiPAP Oxygen Flow Rate Fraction of Inspired Oxygen 32 10/30/24 03:09 10/30/24 04:00 10/30/24 04:00 Temperature 36.1 C L Pulse Rate 68 79 Respiratory Rate 24 H 24 H Blood Pressure 169/78 H Pulse Oximetry 94 95 Oxygen Delivery BiPAP BiPAP Oxygen Flow Rate Fraction of Inspired Oxygen 32 10/30/24 04:00 10/30/24 05:55 10/30/24 06:00 Temperature Pulse Rate 69 77 74 Respiratory Rate 24 H Blood Pressure Pulse Oximetry 98 Oxygen Delivery BiPAP Oxygen Flow Rate Fraction of Inspired Oxygen 10/30/24 08:00 10/30/24 08:00 10/30/24 08:00 Temperature 36.4 C Pulse Rate 71 70 Respiratory Rate 17 Blood Pressure 159/86 H Pulse Oximetry 97 97 Oxygen Delivery Nasal Cannula Oxygen Flow Rate 3 Fraction of Inspired Oxygen 10/30/24 08:53 10/30/24 10:00 10/30/24 12:00 Temperature 36.6 C Pulse Rate 76 75 Respiratory Rate 15 Blood Pressure 172/80 H Pulse Oximetry 97 98 Oxygen Delivery Nasal Cannula Oxygen Flow Rate 3 Fraction of Inspired Oxygen 10/30/24 12:00 10/30/24 12:00 10/30/24 14:00 Temperature Pulse Rate 67 77 Respiratory Rate Blood Pressure Pulse Oximetry 96 Oxygen Delivery Nasal Cannula Oxygen Flow Rate 3 Fraction of Inspired Oxygen Exam 2 Narrative: GEN: Alert, pleasant, extremely the severe hearing loss. Limited memory. Cannot provide any basic details about his medical issues. Nasal cannula 3 L/minute. sat 96-97% Atrial fib, rate 74 HEENT: pupils are equal, EOMI, symmetrical face; oral membranes dry. NECK: Trachea is midline CHEST: Equal air entry, symmetric excursion, scattered crackles on the right side. absent breath sounds on the left side. CV: Irregular S1S2 no m/g/r ABD : (+) bowel sounds Extremities : no clubbing, cyanosis, or edema; His right forefoot has been amputated. He has total body ichthyosis - patchy scaly hyperpigmented skin over chest, limbs PSYCH: poor hearing and memory, can answer some basic questions. Left leg prosthesis is in the room. Results Laboratory Findings 10/30/24 04:17 10/30/24 04:17 ABG, PT/INR, D-dimer: ABG ABG pH 7.326 (7.350-7.450) L 10/30/24 04:59 ABG pCO2 45.8 mmHg (35.0-45.0) H 10/30/24 04:59 ABG pO2 91.4 mmHg (80.0-100.0) 10/30/24 04:59 ABG O2 Saturation 96.4 % (95.0-100.0) 10/30/24 04:59 PT/INR, D-dimer PT 14.8 Seconds (11.1-14.7) H 10/29/24 17:14 INR 1.1 10/29/24 17:14 Abnormal lab findings: Abnormal Labs 10/29/24 10/29/24 10/29/24 17:14 20:51 21:36 WBC 13.9 H RBC 3.33 L Hgb 9.5 L Hct 32.5 L MCHC 29.2 L RDW 14.9 H Immature Gran % (Auto) 1.5 H Neut % (Auto) 88.5 H Lymph % (Auto) 5.3 L [place] % (Auto) Lymph # (Auto) 0.74 L Abs Immat Gran (auto) 0.21 H Absolute Neuts (auto) 12.3 H PT 14.8 H ABG pH 7.236 L* ABG pCO2 67.8 H* ABG pO2 ABG HCO3 28.1 H ABG O2 Saturation ABG O2 Content 13.9 L Total Hemoglobin 10.2 L Carbon Dioxide 34 H Anion Gap 1 L BUN 38 H Creatinine 3.10 H Estimated GFR 20 L Glucose 125 H POC Capillary Glucose Calcium 7.9 L Phosphorus Magnesium Alkaline Phosphatase Troponin I 0.222 H* 0.241 H* NT-Pro-B Natriuret Pep 7670 H SARS-CoV-2 RNA (RT-PCR) Positive A 10/29/24 10/29/24 10/30/24 22:58 23:28 04:17 WBC 12.9 H RBC 3.82 L Hgb 10.8 L Hct 37.2 L MCHC 29.0 L RDW 14.7 H Immature Gran % (Auto) 1.6 H Neut % (Auto) 96.0 H Lymph % (Auto) 1.6 L [place] % (Auto) 0.4 L Lymph # (Auto) 0.21 L Abs Immat Gran (auto) 0.20 H Absolute Neuts (auto) 12.3 H PT ABG pH 7.220 L* ABG pCO2 78.2 H* ABG pO2 79.4 L ABG HCO3 31.3 H ABG O2 Saturation 92.7 L ABG O2 Content 13.5 L Total Hemoglobin 10.1 L Carbon Dioxide Anion Gap BUN 38 H Creatinine 3.30 H Estimated GFR 18 L Glucose 145 H POC Capillary Glucose Calcium Phosphorus 5.0 H Magnesium 2.5 H Alkaline Phosphatase 161 H Troponin I 0.234 H* 0.234 H* NT-Pro-B Natriuret Pep SARS-CoV-2 RNA (RT-PCR) 10/30/24 10/30/24 10/30/24 04:59 07:49 12:12 WBC RBC Hgb Hct MCHC RDW Immature Gran % (Auto) Neut % (Auto) Lymph % (Auto) [place] % (Auto) Lymph # (Auto) Abs Immat Gran (auto) Absolute Neuts (auto) PT ABG pH 7.326 L ABG pCO2 45.8 H ABG pO2 ABG HCO3 ABG O2 Saturation ABG O2 Content 14.6 L Total Hemoglobin 10.7 L Carbon Dioxide Anion Gap BUN Creatinine Estimated GFR Glucose POC Capillary Glucose 138 H 292 H Calcium Phosphorus Magnesium Alkaline Phosphatase Troponin I NT-Pro-B Natriuret Pep SARS-CoV-2 RNA (RT-PCR)
[2024-10-30 17:10] LABS: Glucose Point of Care 196 mg/dl (65-105)
[2024-10-30] MEDS: hydrOXYzine pamoate 25 MG CAPSULE PO (17:20)
--- NOTE | 2024-10-30 20:18 | P.PNIM_ITS ---
Progress Note: A&P Assessment and Plan (1) Acute on chronic respiratory failure with hypoxia and hypercapnia: Code(s): J96.21 - Acute and chronic respiratory failure with hypoxia; J96.22 - Acute and chronic respiratory failure with hypercapnia Status: Acute Assessment and Plan: Patient presents with SOB and left sided pleural effusion noted by outpatient CXR. ABG showing 7.24/68/93 on 3L. ABG worsened on 7L so placed on BiPAP. CXR showing showing left basilar atelectasis vs PNA and moderate pleural effusion. He tested positive for COVID (also positive in Sept). EKG showing AFib with controlled rate but no change from prior. BNP 7670 and PCT 0.2. Treated in the ED with Soul-Medrol, bronchodilators. Lasix IV once given. Rocephin and Azithro started. He has maintained his SpO2 on 3L since admission. Pulmonary consulted. Plan for thoracentesis. (2) COPD exacerbation: Code(s): J44.1 - Chronic obstructive pulmonary disease with (acute) exacerbation Status: Chronic Assessment and Plan: As above. Continue IV steroids, bronchodilators and IV antibiotic Continue Trelegy (3) COVID: Code(s): U07.1 - COVID-19 Status: Acute Assessment and Plan: COVID positive here. CXR as above. Oxygen requirements at baseline. Continue steroids. Not felt that he has an acute infection. Supportive care (4) Elevated troponin: Code(s): R77.8 - Other specified abnormalities of plasma proteins Status: Acute Assessment and Plan: Troponin elelvated at 0.24 but flat. Noted to be chronically elevated Likely due to demand ischemia rather than ACS or chronic from renal failure. EKG noted andnot showing any acute changes. (5) CKD (chronic kidney disease): Qualifiers: Chronic kidney disease stage: unspecified stage Qualified Code(s): N18.9 - Chronic kidney disease, unspecified Code(s): N18.9 - Chronic kidney disease, unspecified Status: Acute Assessment and Plan: Cr noted and stable at baseline. Monitor (6) Pleural effusion: Code(s): J90 - Pleural effusion, not elsewhere classified Status: Acute Assessment and Plan: Noted by CXR. Plan to transtion to Heparin for thoracentesis. Appreciate Pulm input. Plan Code status full code DVT prophylaxis - Eliquis held. Heparin started. Subjective Date/time seen: 10/30/24 20:18 Interval history: 78yo male with COPD, chroni resp failure on 2.5L, asthma, CHF and anemia here for shortness of breath. Assuming care. Chart reviewed. Still feels SOB with productive cough. Also with nausea but able to eat his dinner without issue. Quit tobacco a few weeks ago. He states he is anxious about his medical condition. Exam Narrative: AF 98.5 161/77 108 24 95% 3L Gen - NARD sitting up in bed Chest - bruising noted left lower anterior chest area without significnat palpable pain. inspiratory rhonchi with decreased BS in the left base CV - irregularly irregular. Tele showing AFib with either runs of aberrant conduction vs NSVT Abd - Soft, ND, Positive BS. So pain but exam findings not consistent Ext - s/p left BKA and right transmetatarsal. Neuro - Alert and oriented x4. Nonfocal exam. Psych - Nml mood and affect Skin - skin dry and flaky Objective Data Vital Signs Vital Signs: Vital Signs - 24 hr 10/29/24 20:55 10/29/24 20:55 10/29/24 21:00 Temperature Pulse Rate 80 79 Respiratory Rate 17 Blood Pressure 152/87 H Pulse Oximetry 98 100 Oxygen Delivery Nasal Cannula Oxygen Flow Rate 3 Fraction of Inspired Oxygen 10/29/24 21:30 10/29/24 21:48 10/29/24 21:48 Temperature Pulse Rate 80 76 79 Respiratory Rate 20 20 Blood Pressure 169/70 H Pulse Oximetry 99 Oxygen Delivery Oxygen Flow Rate Fraction of Inspired Oxygen 10/29/24 22:00 10/29/24 22:15 10/29/24 22:45 Temperature Pulse Rate 82 77 81 Respiratory Rate 20 19 Blood Pressure 145/90 H 147/86 H 130/95 H Pulse Oximetry 100 100 99 Oxygen Delivery Oxygen Flow Rate Fraction of Inspired Oxygen 10/29/24 23:15 10/30/24 00:00 10/30/24 01:30 Temperature 97.1 F L Pulse Rate 76 79 78 Respiratory Rate 24 H 24 H 24 H Blood Pressure 188/63 H Pulse Oximetry 97 96 97 Oxygen Delivery BiPAP BiPAP Oxygen Flow Rate Fraction of Inspired Oxygen 10/30/24 02:15 10/30/24 02:26 10/30/24 03:09 Temperature Pulse Rate 74 68 Respiratory Rate 24 H 24 H Blood Pressure 141/70 H Pulse Oximetry 94 94 Oxygen Delivery BiPAP BiPAP Oxygen Flow Rate Fraction of Inspired Oxygen 32 10/30/24 04:00 10/30/24 04:00 10/30/24 04:00 Temperature 97.0 F L Pulse Rate 79 69 Respiratory Rate 24 H Blood Pressure 169/78 H Pulse Oximetry 95 Oxygen Delivery BiPAP Oxygen Flow Rate Fraction of Inspired Oxygen 32 10/30/24 05:55 10/30/24 06:00 10/30/24 08:00 Temperature 97.6 F Pulse Rate 77 74 71 Respiratory Rate 24 H 17 Blood Pressure 159/86 H Pulse Oximetry 98 97 Oxygen Delivery BiPAP Oxygen Flow Rate Fraction of Inspired Oxygen 10/30/24 08:00 10/30/24 08:00 10/30/24 08:53 Temperature Pulse Rate 70 Respiratory Rate Blood Pressure Pulse Oximetry 97 97 Oxygen Delivery Nasal Cannula Nasal Cannula Oxygen Flow Rate 3 3 Fraction of Inspired Oxygen 10/30/24 10:00 10/30/24 12:00 10/30/24 12:00 Temperature 97.8 F Pulse Rate 76 75 67 Respiratory Rate 15 Blood Pressure 172/80 H Pulse Oximetry 98 Oxygen Delivery Oxygen Flow Rate Fraction of Inspired Oxygen 10/30/24 12:00 10/30/24 14:00 10/30/24 16:00 Temperature Pulse Rate 77 Respiratory Rate Blood Pressure Pulse Oximetry 96 94 Oxygen Delivery Nasal Cannula Nasal Cannula Oxygen Flow Rate 3 3 Fraction of Inspired Oxygen 10/30/24 16:00 10/30/24 18:00 10/30/24 19:29 Temperature 98.5 F Pulse Rate 79 76 108 H Respiratory Rate 24 H Blood Pressure 161/77 H Pulse Oximetry 95 Oxygen Delivery Oxygen Flow Rate Fraction of Inspired Oxygen Intake/Output Intake/Output: Intake & Output 10/27/24 10/28/24 10/29/24 10/30/24 23:59 23:59 23:59 23:59 Intake Total 350 2260 Output Total 2400 Balance 350 -140 Meds/Results Medications: Active Medications Generic Name Dose Route Start Last Admin Trade Name Freq PRN Reason Stop Dose Admin Acetaminophen 650 mg 10/30/24 02:25 Acetaminophen 325 Mg Tablet PO Q6H PRN Pain or Fever 1-3 Albuterol 2.5 mg 10/30/24 17:00 Albuterol Sulfate Neb 2.5 Mg/3 Ml Inh INHALATION Q4HRT PRN Shortness Of Breath Or Wheezing Ascorbic Acid 500 mg 10/30/24 09:00 10/30/24 17:20 Ascorbic Acid 500 Mg Tablet PO 500 mg BID KALPESH Administration Aspirin 325 mg 10/30/24 09:00 10/30/24 09:04 Aspirin 325 Mg Enteric Tablet PO 325 mg QAM KALPESH Administration Baclofen 5 mg 10/30/24 02:25 Baclofen 5 Mg Tablet PO Q8H PRN MUSCLE SPASM Benzonatate 100 mg 10/30/24 02:25 Benzonatate 100 Mg Capsule PO TID PRN Cough Bisacodyl 10 mg 10/30/24 02:20 Bisacodyl 10 Mg Suppository RECTAL DAILY PRN SEE INSTRUCTIONS Bumetanide 1 mg 10/30/24 09:00 10/30/24 17:22 Bumetanide Inj 1 Mg/4 Ml Vial IV PUSH 1 mg BID KALPESH Administration Cyanocobalamin 1,000 mcg 10/30/24 09:00 10/30/24 09:06 Cyanocobalamin 1,000 Mcg Tablet PO 1,000 mcg DAILY KALPESH Administration Dextrose 12.5 gm 10/30/24 02:33 Dextrose 50% 25 Gm/50 Ml Syringe IV PUSH PRN PRN Hypoglycemia Protocol Epoetin Aaron-epbx 10,000 units 10/30/24 09:00 10/30/24 09:16 Epoetin Aaron-Epbx 10,000 Units/Ml Vial SUB-Q 10,000 units MoWeFr KALPESH Administration Fluticasone/Umeclidinium/Vilanterol 1 puff 10/30/24 08:00 10/30/24 08:54 Fluticasone/Umeclidin/Vilanter 100-62.5-25 Mcg Ellipta INHALATION 1 puff DAILYRT KALPESH Administration Folic Acid 1 mg 10/30/24 09:00 10/30/24 09:05 Folic Acid 1 Mg Tablet PO 1 mg DAILY KALPESH Administration Gabapentin 300 mg 10/30/24 09:00 10/30/24 09:06 Gabapentin 300 Mg Capsule PO 300 mg Q12HR KALPESH Administration Glucagon 1 mg 10/30/24 02:33 Glucagon For Inj 1 Mg Vial IM PRN PRN Hypoglycemia Protocol Glucose 15 gm 10/30/24 02:33 Glucose Oral Gel 15 Gm Of Glucse In 37.5 Gm Tube PO PRN PRN Hypoglycemia Protocol Guaifenesin 600 mg 10/30/24 09:00 10/30/24 09:06 Guaifenesin 12 Hr 600 Mg Tabcr PO 600 mg Q12HR KALPESH Administration Hydrocortisone 1 applic 10/30/24 02:20 Hydrocortisone 1% 30 Gm Cream TOPICAL Q8H PRN FOR ITCHING Hydroxyzine Pamoate 25 mg 10/30/24 02:20 10/30/24 17:20 Hydroxyzine Pamoate 25 Mg Capsule PO 25 mg Q12H PRN Administration anxiety Ceftriaxone Sodium 1 gm in 50 mls @ 100 mls/hr 10/30/24 21:00 Rocephin 1 Gm/Ns 50 Ml IVPB Q24H KALPESH Azithromycin 500 mg in 250 mls @ 250 mls/hr 10/30/24 22:00 Zithromax IVPB Q24H KALPESH Dextrose 1,000 mls @ 100 mls/hr 10/30/24 02:33 Dextrose 5% 1,000 Ml IVPB PRN PRN Hypoglycemia Protocol Insulin Aspart 4 - 8 units 10/30/24 08:00 10/30/24 17:11 Insulin Aspart (*Bkc) 100 Units/Ml SUB-Q Not Given TIDWM KALPESH Protocol Loratadine 10 mg 10/30/24 09:00 10/30/24 09:05 Loratadine 10 Mg Tablet PO 10 mg QAM KALPESH Administration Magnesium Hydroxide 30 ml 10/30/24 02:20 Magnesium Hydroxide Susp 30 Ml Udc PO QHS PRN Constipation Methylprednisolone Sodium Succinate 40 mg 10/30/24 04:00 10/30/24 17:21 Methylprednisolone Sod Succ 40 Mg Vial IV PUSH 40 mg Q6H KALPESH Administration Miscellaneous Information 1 each 10/30/24 19:54 Pharmacist Communication Order XX 10/30/24 19:55 ONCE ONE Multi-Ingred Cream/Lotion/Oil/Oint 1 applic 10/30/24 09:00 10/30/24 17:22 Eucerin Cream 120 Gm Jar TOPICAL 1 applic BID KALPESH Administration Multivitamins Therapeutic 1 tablet 10/30/24 09:00 10/30/24 09:06 Multivitamins Therapeutic Tab (*Bkc) PO 1 tablet DAILY KALPESH Administration Pantoprazole Sodium 40 mg 10/30/24 09:00 10/30/24 09:06 Pantoprazole 40 Mg Tablet PO 40 mg Q12HR KALPESH Administration Saccharomyces Boulardii 250 mg 10/30/24 09:00 10/30/24 17:20 Saccharomyces Boulardii 250 Mg Capsule PO 250 mg BID KALPESH Administration Sertraline HCl 100 mg 10/30/24 21:00 Sertraline Hcl 50 Mg Tablet PO QHS KALPESH Simvastatin 10 mg 10/30/24 21:00 Simvastatin 10 Mg Tablet PO HS KALPESH Sodium Bicarbonate 1,300 mg 10/30/24 09:00 10/30/24 17:20 Sodium Bicarbonate Tab 650 Mg Tablet PO 1,300 mg TID KALPESH Administration Tramadol HCl 50 mg 10/30/24 02:20 Tramadol Hcl (*Crx) 50 Mg Tablet PO Q6H PRN chronic pain 4-6 Trazodone HCl 75 mg 10/30/24 21:00 Trazodone Hcl 25 Mg Tablet PO QHS [facility] Vitamin D 1,000 units 10/30/24 09:00 10/30/24 09:06 Cholecalciferol 1,000 Units Tablet PO 1,000 units DAILY KALPESH Administration Radiology Results: ITS Impressions Chest X-Ray 10/29/24 17:30 IMPRESSION: Left basilar atelectasis versus pneumonia. Left moderate pleural effusion. Labs Labs: Laboratory Results - last 24 hr 10/29/24 10/29/24 10/29/24 17:14 20:51 21:36 WBC RBC Hgb Hct MCV MCH MCHC RDW Plt Count MPV Immature Gran % (Auto) Neut % (Auto) Lymph % (Auto) [place] % (Auto) Eos % (Auto) Baso % (Auto) Lymph # (Auto) [place] # (Auto) Eos # (Auto) Baso # (Auto) Abs Immat Gran (auto) Absolute Neuts (auto) Absolute Nucleated RBC Nucleated RBC % Puncture Site Left radial ABG pH 7.236 L* ABG pCO2 67.8 H* ABG pO2 93.3 ABG PO2/FiO2 Ratio 2.92 ABG HCO3 28.1 H ABG O2 Saturation 95.5 ABG O2 Content 13.9 L ABG Base Excess -0.3 A-a Gradient 55.5 Oxyhemoglobin 95.9 Total Hemoglobin 10.2 L O2 Delivery Device Nasal cannula O2 Liters/Min 3.0 Vent Rate FiO2 32 Expiratory Pressure Inspiratory Pressure Sodium Potassium Chloride Carbon Dioxide Anion Gap BUN Creatinine Estim Creat Clear Calc Estimated GFR Glucose POC Capillary Glucose Hemoglobin A1c Lactic Acid Calcium Phosphorus Magnesium 2.0 Total Bilirubin AST ALT Alkaline Phosphatase Troponin I 0.241 H* Total Protein Albumin Procalcitonin 10/29/24 10/29/24 10/30/24 22:58 23:28 04:17 WBC 12.9 H RBC 3.82 L Hgb 10.8 L Hct 37.2 L MCV 97.4 MCH 28.3 MCHC 29.0 L RDW 14.7 H Plt Count 216 MPV 9.2 Immature Gran % (Auto) 1.6 H Neut % (Auto) 96.0 H Lymph % (Auto) 1.6 L [place] % (Auto) 0.4 L Eos % (Auto) 0.0 Baso % (Auto) 0.4 Lymph # (Auto) 0.21 L [place] # (Auto) 0.1 Eos # (Auto) 0.0 Baso # (Auto) 0.1 Abs Immat Gran (auto) 0.20 H Absolute Neuts (auto) 12.3 H Absolute Nucleated RBC 0.000 Nucleated RBC % 0.0 Puncture Site Left radial ABG pH 7.220 L* ABG pCO2 78.2 H* ABG pO2 79.4 L ABG PO2/FiO2 Ratio 1.65 ABG HCO3 31.3 H ABG O2 Saturation 92.7 L ABG O2 Content 13.5 L ABG Base Excess 2.1 A-a Gradient 174.5 Oxyhemoglobin 94.2 Total Hemoglobin 10.1 L O2 Delivery Device Nasal cannula O2 Liters/Min 7.0 Vent Rate FiO2 48 Expiratory Pressure Inspiratory Pressure Sodium 141 Potassium 4.0 Chloride 104 Carbon Dioxide 30 Anion Gap 7 BUN 38 H Creatinine 3.30 H Estim Creat Clear Calc 18 Estimated GFR 18 L Glucose 145 H POC Capillary Glucose Hemoglobin A1c 4.6 Lactic Acid 0.9 Calcium 8.5 Phosphorus 5.0 H Magnesium 2.5 H Total Bilirubin 0.7 AST 52 ALT 29 Alkaline Phosphatase 161 H Troponin I 0.234 H* 0.234 H* Total Protein 7.0 Albumin 4.0 Procalcitonin 0.2 10/30/24 10/30/24 10/30/24 04:59 07:49 12:12 WBC RBC Hgb Hct MCV MCH MCHC RDW Plt Count MPV Immature Gran % (Auto) Neut % (Auto) Lymph % (Auto) [place] % (Auto) Eos % (Auto) Baso % (Auto) Lymph # (Auto) [place] # (Auto) Eos # (Auto) Baso # (Auto) Abs Immat Gran (auto) Absolute Neuts (auto) Absolute Nucleated RBC Nucleated RBC % Puncture Site Left radial ABG pH 7.326 L ABG pCO2 45.8 H ABG pO2 91.4 ABG PO2/FiO2 Ratio 2.86 ABG HCO3 23.4 ABG O2 Saturation 96.4 ABG O2 Content 14.6 L ABG Base Excess -2.6 A-a Gradient 83.2 Oxyhemoglobin 96.4 Total Hemoglobin 10.7 L O2 Delivery Device Non-invasive vent O2 Liters/Min Not Reportable Vent Rate 24 FiO2 32 Expiratory Pressure 8 Inspiratory Pressure 18 Sodium Potassium Chloride Carbon Dioxide Anion Gap BUN Creatinine Estim Creat Clear Calc Estimated GFR Glucose POC Capillary Glucose 138 H 292 H Hemoglobin A1c Lactic Acid Calcium Phosphorus Magnesium Total Bilirubin AST ALT Alkaline Phosphatase Troponin I Total Protein Albumin Procalcitonin 10/30/24 17:04 WBC RBC Hgb Hct MCV MCH MCHC RDW Plt Count MPV Immature Gran % (Auto) Neut % (Auto) Lymph % (Auto) [place] % (Auto) Eos % (Auto) Baso % (Auto) Lymph # (Auto) [place] # (Auto) Eos # (Auto) Baso # (Auto) Abs Immat Gran (auto) Absolute Neuts (auto) Absolute Nucleated RBC Nucleated RBC % Puncture Site ABG pH ABG pCO2 ABG pO2 ABG PO2/FiO2 Ratio ABG HCO3 ABG O2 Saturation ABG O2 Content ABG Base Excess A-a Gradient Oxyhemoglobin Total Hemoglobin O2 Delivery Device O2 Liters/Min Vent Rate FiO2 Expiratory Pressure Inspiratory Pressure Sodium Potassium Chloride Carbon Dioxide Anion Gap BUN Creatinine Estim Creat Clear Calc Estimated GFR Glucose POC Capillary Glucose 196 H Hemoglobin A1c Lactic Acid Calcium Phosphorus Magnesium Total Bilirubin AST ALT Alkaline Phosphatase Troponin I Total Protein Albumin Procalcitonin
[2024-10-30 20:42] LABS: Glucose Point of Care 229 mg/dl (65-105)
[2024-10-30] MEDS: traZODone HCL 25 MG TABLET 75 MG PO (22:11)
[2024-10-30] MEDS: SIMVASTATIN 10 MG TABLET PO (22:11)
[2024-10-30] MEDS: SERTRALINE HCL 50 MG TABLET 100 MG PO (22:11)
[2024-10-30] MEDS: AZITHROMYCIN 500 MG/NS 250 ML 500 MG/250 ML BAG 250 MG IVPB (22:16)
[2024-10-31] VITALS (23 sets, daily range): BP systolic 144–177; BP diastolic 66–78; PULSE 45–88; RESP 16–24; TEMP 36.8–37.7; O2SAT 90–99
[2024-10-31] MEDS: methylPREDNISolone SOD SUCC 40 MG VIAL IV PUSH ×2 (04:09→09:14)
[2024-10-31 05:10] LABS: Basophils Percent Auto 0.1 % (0.2-1.2); Hematocrit 29.9 % (42.0-52.0); Immature Granulocyte Absolute 0.24 K/mm3 (0.00-0.031); Immature Granulocyte Percent A 1.1 % (0-0.5); Lymphocytes Absolute Auto 0.57 K/mm3 (0.9-3.2); Lymphocytes Percent Auto 2.7 % (18.3-44.2); Mean Corpuscular HGB Conc 30.1 g/dl (32-36); Mean Corpuscular Hemoglobin 27.9 pg (26-34); Mean Corpuscular Volume 92.6 fl (80-100); Mean Platelet Volume 9.5 fl (7.4-10.4); Monocytes Absolute Auto 0.4 K/mm3 (0.1-0.6); Monocytes Percent Auto 1.9 % (2.6-8.5); Neutrophils Absolute Auto 20.1 K/mm3 (1.3-6.7); Neutrophils Percent Auto 94.2 % (45.5-73.1); Nucleated Red Blood Cells Perc 0.1 % (0.0-0.2); Platelet Count Result 199 k/mm3 (150-375); Red Blood Count 3.23 M/mm3 (4.6-6.20); Red Cell Distribution Width 14.5 % (11.5-14.5); White Blood Count 21.3 K/mm3 (4.5-10.0)
[2024-10-31 05:20] LABS: INR 1.1; Prothrombin Time 14.9 Seconds (11.1-14.7)
[2024-10-31 05:21] LABS: Partial Thromboplastin Time 32.1 Seconds (22.3-36.8)
[2024-10-31 05:43] LABS: Anisocytosis 1+; Hypochromasia 1+; Platelet Estimate Adequate (Adequate); Schistocytes None Seen; Stomatocytes 1+
[2024-10-31 05:47] LABS: Alanine Aminotransferase 18 U/L (6-50); Albumin Level 2.7 g/dL (3.5-5.1); Alkaline Phosphatase 102 U/L (38-126); Anion Gap 1 mmol/L (4-12); Aspartate Amino Transferase 30 U/L (17-59); Bilirubin,Total 0.5 mg/dL (0.2-1.3); Blood Urea Nitrogen 51 mg/dL (9-20); Calcium 7.8 mg/dL (8.4-10.2); Carbon Dioxide 32 mmol/L (22-30); Chloride 103 mmol/L (98-107); Estimated CRCL calculation 20 ml/min; Estimated Glomerular Filt Rate 20; Glucose 180 mg/dL (65-110); Magnesium 2.1 mg/dL (1.6-2.3); Phosphorus 4.3 mg/dL (2.5-4.5); Potassium 3.6 mmol/L (3.4-5.0); Sodium 136 mmol/L (137-145)
[2024-10-31 05:53] LABS: Procalcitonin 0.2 ng/mL
[2024-10-31 07:59] LABS: Glucose Point of Care 185 mg/dl (65-105)
[2024-10-31] MEDS: FLUTICASONE/UMECLIDIN/VILANTER 100-62.5-25 MCG ELLIPTA 1 PUFF INHALATION (09:07)
[2024-10-31 09:12] LABS: NT Pro B Type Natriuretic Pept 10900 pg/mL (19.9-100)
[2024-10-31] MEDS: ASCORBIC ACID 500 MG TABLET PO ×2 (09:14→17:57)
[2024-10-31] MEDS: FOLIC ACID 1 MG TABLET PO (09:14)
[2024-10-31] MEDS: BUMETANIDE INJ 1 MG/4 ML VIAL IV PUSH ×2 (09:14→17:57)
[2024-10-31] MEDS: LORATADINE 10 MG TABLET PO (09:14)
[2024-10-31] MEDS: MULTIVITAMINS THERAPEUTIC TAB (*BKC) 1 TABLET PO (09:14)
[2024-10-31] MEDS: ASPIRIN 325 MG ENTERIC TABLET PO (09:14)
[2024-10-31] MEDS: guaiFENesin 12 HR 600 MG TABCR PO ×2 (09:14→22:30)
[2024-10-31] MEDS: CYANOCOBALAMIN 1,000 MCG TABLET 1000 MCG PO (09:14)
[2024-10-31] MEDS: PANTOPRAZOLE 40 MG TABLET PO ×2 (09:14→22:30)
[2024-10-31] MEDS: GABAPENTIN 300 MG CAPSULE PO ×2 (09:14→22:30)
[2024-10-31] MEDS: SODIUM BICARBONATE TAB 650 MG TABLET 1300 MG PO ×3 (09:14→17:57)
[2024-10-31] MEDS: CHOLECALCIFEROL 1,000 UNITS TABLET 1000 UNITS PO (09:14)
[2024-10-31] MEDS: SACCHAROMYCES BOULARDII 250 MG CAPSULE PO ×2 (09:14→17:57)
[2024-10-31] MEDS: EUCERIN CREAM 120 GM JAR 1 APPLIC TOPICAL ×2 (09:17→18:04)
[2024-10-31] MEDS: HEPARIN SOD/D5W 100 UNITS/ML 25,000 UNITS/250 ML BAG 14 UNITS IV CONT (09:27)
--- NOTE | 2024-10-31 10:15 | P.PNNP_ITS ---
Progress Note: A&P Assessment and Plan (1) Chronic kidney disease, stage IV (severe): Code(s): N18.4 - Chronic kidney disease, stage 4 (severe) Status: Chronic Assessment and Plan: * baseline creatinine appears to have averaged out to ~ 3.0 - 3.5mg/dl in the last 6 months * outpatient evaluation noted: * normal renal ultrasound * negative serologies with the exceptions of a positive KEITH (but negative dsDNA-Ab), low C3, and a possible M-spike on SPEP * about 1100mg of proteinuria * thought to be secondary to hypertension, diabetes, vascular disease, chronic diuretic therapy, BPH, and age-related change (2) Acute on chronic respiratory failure with hypoxia and hypercapnia: Code(s): J96.21 - Acute and chronic respiratory failure with hypoxia; J96.22 - Acute and chronic respiratory failure with hypercapnia Status: Acute Assessment and Plan: * multifactorial etiology: * COPD exacerbation * left pleural effusion * COVD-19 * CHF/volume overload * pneumonia/bronchitis(?) * on antibiotics * started on scheduled IV diuretics * continue bronchodilators, steroids, and antibiotics * Pulmonary following with recommendations noted (3) COVID-19: Code(s): U07.1 - COVID-19 Status: Acute Assessment and Plan: * as noted by testing in ER * on steroids already * not a candidate for remdesivir given #1 * continue supplemental oxygen * follow respiratory status (4) COPD exacerbation: Code(s): J44.1 - Chronic obstructive pulmonary disease with (acute) exacerbation Status: Chronic Assessment and Plan: * see #2 * severe obstruction noted by last PFTs * continue steroids, nebulizer treatments, and antibiotics * wean steroids as tolerated * on Trelegy inhaler * Pulmonary following (5) Pleural effusion, left: Code(s): J90 - Pleural effusion, not elsewhere classified Status: Acute Assessment and Plan: * as noted by admission imaging * anticoagulation transitioned to heparin gtt in preparation of left thoracentesis next week * diuresis as tolerated * Pulmonary following (6) HTN (hypertension): Qualifiers: Hypertension type: essential hypertension Qualified Code(s): I10 - Essential (primary) hypertension Code(s): I10 - Essential (primary) hypertension Status: Chronic Assessment and Plan: * reasonable control * follow trend of hemodynamics * resume BP medications (amlodipine + hydralazine) as needed * off ESTIVEN-I/ARB/spironolactone due to previous issues with hyperkalemia (7) Profound anemia: Code(s): D64.9 - Anemia, unspecified Status: Chronic Assessment and Plan: * due to CKD possibly worsened by acute illness * on Retacrit (while hospitalized as well as an outpatient) * follow trend of H/H (8) Afib: Qualifiers: Atrial fibrillation type: persistent (not longstanding) Qualified Code(s): I48.19 - Other persistent atrial fibrillation Code(s): I48.91 - Unspecified atrial fibrillation Status: Chronic Assessment and Plan: * rate control strategy * on anticoagulation (heparin gtt currently; was on Eliquis) (9) Type 2 diabetes mellitus: Qualifiers: Diabetes mellitus complication detail: with foot ulcer Diabetes mellitus [employer] insulin use: without fpc use Code(s): E11.9 - Type 2 diabetes mellitus without complications Status: Chronic Assessment and Plan: * follow accu-cheks * no apparent home medications despite history * glycemic control per hospitalist Will continue to follow Subjective Date/time seen: 10/31/24 10:15 Interval history: Follow-up for chronic kidney disease. No acute distress voiced at the time of my visit; he still reports shortenss of breath worse than baseline with an unchanged cough; stable oxygenation on supplemental oxygen; started on scheduled diuretics; renal function/creatinine relatively stable at this time; started on heparin gtt in anticipation of left thoracentesis next week. Exam 2 Narrative: General: chronically ill-appearing male in NAD Heart: IRRR, normal S1 and S2; no rub Lungs: coarse with decreased breath sounds on left Abdomen: soft, nontender, nondistended, positive bowel sounds Extremities: no cyanosis or clubbing; trace edema; s/p left BKA and right TMA Skin: xerosis noted Objective Data Vital Signs Vital Signs: Vital Signs Temp Pulse Resp BP Pulse Ox O2 Del Method O2 Flow Rate 10/31/24 10:00 73 10/31/24 09:07 93 Nasal Cannula 3 10/31/24 08:07 99.1 F 64 16 177/76 H 90 10/31/24 08:00 68 10/31/24 08:00 90 Nasal Cannula 3 10/31/24 06:00 65 10/31/24 04:00 80 10/31/24 04:00 94 Nasal Cannula 3 10/31/24 03:56 98.5 F 88 20 165/70 H 92 10/31/24 02:00 69 10/31/24 00:40 92 Nasal Cannula 3 10/31/24 00:10 98.3 F 45 L 18 144/69 H 92 10/31/24 00:00 72 10/30/24 22:00 95 Nasal Cannula 3 10/30/24 22:00 77 10/30/24 20:00 85 10/30/24 19:29 98.5 F 108 H 24 H 161/77 H 95 10/30/24 18:00 76 10/30/24 16:00 79 10/30/24 16:00 94 Nasal Cannula 3 10/30/24 14:00 77 Intake/Output Intake/Output: Intake & Output 10/28/24 10/29/24 10/30/24 10/31/24 23:59 23:59 23:59 23:59 Intake Total 350 2560 470 Output Total 2400 1300 Balance 350 160 -830 Meds/Results Medications: Active Medications Generic Name Dose Route Start Last Admin Trade Name Freq PRN Reason Stop Dose Admin Acetaminophen 650 mg 10/30/24 02:25 Acetaminophen 325 Mg Tablet PO Q6H PRN Pain or Fever 1-3 Albuterol 2.5 mg 10/30/24 17:00 10/31/24 12:41 Albuterol Sulfate Neb 2.5 Mg/3 Ml Inh INHALATION 2.5 mg Q4HRT PRN Administration Shortness Of Breath Or Wheezing Ascorbic Acid 500 mg 10/30/24 09:00 10/31/24 09:14 Ascorbic Acid 500 Mg Tablet PO 500 mg BID KALPESH Administration Aspirin 325 mg 10/30/24 09:00 10/31/24 09:14 Aspirin 325 Mg Enteric Tablet PO 325 mg QAM KALPESH Administration Baclofen 5 mg 10/30/24 02:25 Baclofen 5 Mg Tablet PO Q8H PRN MUSCLE SPASM Benzonatate 100 mg 10/30/24 02:25 Benzonatate 100 Mg Capsule PO TID PRN Cough Bisacodyl 10 mg 10/30/24 02:20 Bisacodyl 10 Mg Suppository RECTAL DAILY PRN SEE INSTRUCTIONS Bumetanide 1 mg 10/30/24 09:00 10/31/24 09:14 Bumetanide Inj 1 Mg/4 Ml Vial IV PUSH 1 mg BID KALPESH Administration Cyanocobalamin 1,000 mcg 10/30/24 09:00 10/31/24 09:14 Cyanocobalamin 1,000 Mcg Tablet PO 1,000 mcg DAILY KALPESH Administration Dextrose 12.5 gm 10/30/24 02:33 Dextrose 50% 25 Gm/50 Ml Syringe IV PUSH PRN PRN Hypoglycemia Protocol Epoetin Aaron-epbx 10,000 units 10/30/24 09:00 10/30/24 09:16 Epoetin Aaron-Epbx 10,000 Units/Ml Vial SUB-Q 10,000 units MoWeFr KALPESH Administration Fluticasone/Umeclidinium/Vilanterol 1 puff 10/30/24 08:00 10/31/24 09:07 Fluticasone/Umeclidin/Vilanter 100-62.5-25 Mcg Ellipta INHALATION 1 puff DAILYRT KALPESH Administration Folic Acid 1 mg 10/30/24 09:00 10/31/24 09:14 Folic Acid 1 Mg Tablet PO 1 mg DAILY KALPESH Administration Gabapentin 300 mg 10/30/24 09:00 10/31/24 09:14 Gabapentin 300 Mg Capsule PO 300 mg Q12HR KALPESH Administration Glucagon 1 mg 10/30/24 02:33 Glucagon For Inj 1 Mg Vial IM PRN PRN Hypoglycemia Protocol Glucose 15 gm 10/30/24 02:33 Glucose Oral Gel 15 Gm Of Glucse In 37.5 Gm Tube PO PRN PRN Hypoglycemia Protocol Guaifenesin 600 mg 10/30/24 09:00 10/31/24 09:14 Guaifenesin 12 Hr 600 Mg Tabcr PO 600 mg Q12HR KALPESH Administration Heparin Sodium (Porcine) 6,000 units 10/31/24 09:00 Heparin Sodium 5,000 Units/Ml Vial IV PUSH PRN PRN aPTT less than 55 seconds Heparin Sodium (Porcine) 3,000 units 10/31/24 09:00 Heparin Sodium 5,000 Units/Ml Vial IV PUSH PRN PRN aPTT 55 - 70 seconds Hydrocortisone 1 applic 10/30/24 02:20 Hydrocortisone 1% 30 Gm Cream TOPICAL Q8H PRN FOR ITCHING Hydroxyzine Pamoate 25 mg 10/30/24 02:20 10/30/24 17:20 Hydroxyzine Pamoate 25 Mg Capsule PO 25 mg Q12H PRN Administration anxiety Ceftriaxone Sodium 1 gm in 50 mls @ 100 mls/hr 10/30/24 21:00 10/30/24 22:05 Rocephin 1 Gm/Ns 50 Ml IVPB Infused Q24H KALPESH Infusion Azithromycin 500 mg in 250 mls @ 250 mls/hr 10/30/24 22:00 10/30/24 23:15 Zithromax IVPB Infused Q24H KALPESH Infusion Dextrose 1,000 mls @ 100 mls/hr 10/30/24 02:33 Dextrose 5% 1,000 Ml IVPB PRN PRN Hypoglycemia Protocol Heparin Sodium/Dextrose 25,000 units in 250 mls @ 14 mls/hr 10/31/24 09:00 10/31/24 09:27 Heparin Sodium/D5w 100 Units/Ml IV CONT 1,400 units/hr .[id number] KALPESH 14 mls/hr Administration Protocol 1,400 UNITS/HR Insulin Aspart 4 - 8 units 10/30/24 08:00 10/31/24 12:35 Insulin Aspart (*Bkc) 100 Units/Ml SUB-Q 5 units TIDWM KALPESH Administration Protocol Loratadine 10 mg 10/30/24 09:00 10/31/24 09:14 Loratadine 10 Mg Tablet PO 10 mg QAM KALPESH Administration Magnesium Hydroxide 30 ml 10/30/24 02:20 Magnesium Hydroxide Susp 30 Ml Udc PO QHS PRN Constipation Multi-Ingred Cream/Lotion/Oil/Oint 1 applic 10/30/24 09:00 10/31/24 09:17 Eucerin Cream 120 Gm Jar TOPICAL 1 applic BID KALPESH Administration Multivitamins Therapeutic 1 tablet 10/30/24 09:00 10/31/24 09:14 Multivitamins Therapeutic Tab (*Bkc) PO 1 tablet DAILY KALPESH Administration Pantoprazole Sodium 40 mg 10/30/24 09:00 10/31/24 09:14 Pantoprazole 40 Mg Tablet PO 40 mg Q12HR KALPESH Administration Prednisone 40 mg 10/31/24 12:35 Prednisone 20 Mg Tablet PO DAILY@0800 [facility] Saccharomyces Boulardii 250 mg 10/30/24 09:00 10/31/24 09:14 Saccharomyces Boulardii 250 Mg Capsule PO 250 mg BID KALPESH Administration Sertraline HCl 100 mg 10/30/24 21:00 10/30/24 22:11 Sertraline Hcl 50 Mg Tablet PO 100 mg QHS KALPESH Administration Simvastatin 10 mg 10/30/24 21:00 10/30/24 22:11 Simvastatin 10 Mg Tablet PO 10 mg HS AKLPESH Administration Sodium Bicarbonate 1,300 mg 10/30/24 09:00 10/31/24 12:35 Sodium Bicarbonate Tab 650 Mg Tablet PO 1,300 mg TID KALPESH Administration Tramadol HCl 50 mg 10/30/24 02:20 Tramadol Hcl (*Crx) 50 Mg Tablet PO Q6H PRN chronic pain 4-6 Trazodone HCl 75 mg 10/30/24 21:00 10/30/24 22:11 Trazodone Hcl 25 Mg Tablet PO 75 mg QHS KALPESH Administration Vitamin D 1,000 units 10/30/24 09:00 10/31/24 09:14 Cholecalciferol 1,000 Units Tablet PO 1,000 units DAILY KALPESH Administration Radiology Results: ITS Impressions Chest X-Ray 10/29/24 17:30 IMPRESSION: Left basilar atelectasis versus pneumonia. Left moderate pleural effusion. Labs Labs: Laboratory Tests 10/31/24 04:47 10/31/24 04:47 Calcium 7.8 L Phosphorus 4.3 Magnesium 2.1 Total Bilirubin 0.5 AST 30 ALT 18 Alkaline Phosphatase 102 NT-Pro-B Natriuret Pep 35633 H Total Protein 6.0 L Albumin 2.7 L Procalcitonin 0.2 Microbiology 10/30/24 04:17 Blood Blood Culture - Preliminary 10/30/24 04:17 Blood Blood Culture - Preliminary
--- NOTE | 2024-10-31 11:34 | PM.IMPN ---
Progress Note: A&P Assessment and Plan (1) Acute on chronic respiratory failure with hypoxia and hypercapnia: Code(s): J96.21 - Acute and chronic respiratory failure with hypoxia; J96.22 - Acute and chronic respiratory failure with hypercapnia Status: Acute Assessment and Plan: Patient presents with SOB and left sided pleural effusion noted by outpatient CXR. ABG showing 7.24/68/93 on 3L. ABG worsened on 7L so placed on BiPAP. CXR showing showing left basilar atelectasis vs PNA and moderate pleural effusion. He tested positive for COVID (also positive in Sept). EKG showing AFib with controlled rate but no change from prior. BNP 7670 and PCT 0.2. Treated in the ED with Soul-Medrol, bronchodilators. Lasix IV once given. Rocephin and Azithro started. Also started on IV Bumex He has maintained his SpO2 on 3L since admission. Pulmonary consulted. Plan for thoracentesis. (2) COPD exacerbation: Code(s): J44.1 - Chronic obstructive pulmonary disease with (acute) exacerbation Status: Chronic Assessment and Plan: As above. Continue IV steroids, bronchodilators and IV antibiotic Continue Trelegy (3) COVID: Code(s): U07.1 - COVID-19 Status: Acute Assessment and Plan: COVID positive here. CXR as above. Oxygen requirements better Continue supportive care (4) Elevated troponin: Code(s): R77.8 - Other specified abnormalities of plasma proteins Status: Acute Assessment and Plan: Troponin elevated at 0.24 but flat. Noted to be chronically elevated Likely due to demand ischemia rather than ACS or chronic from renal failure. EKG noted and not showing any acute changes. (5) CKD (chronic kidney disease): Qualifiers: Chronic kidney disease stage: unspecified stage Qualified Code(s): N18.9 - Chronic kidney disease, unspecified Code(s): N18.9 - Chronic kidney disease, unspecified Status: Acute Assessment and Plan: Cr noted and stable at baseline. Monitor (6) Pleural effusion: Code(s): J90 - Pleural effusion, not elsewhere classified Status: Acute Assessment and Plan: Noted by CXR. Plan to transtion to Heparin for thoracentesis. Appreciate Pulm input. Plan Code status full code DVT prophylaxis - Eliquis held. Heparin started. Subjective Date/time seen: 10/31/24 11:34 Interval history: 78yo male with COPD, chronic resp failure on 2.5L, asthma, CHF and anemia here for shortness of breath. No change in SOB. Cough better. No CP . No n/v. Exam Narrative: AF 99.1 177/76 73 16 93% 3L Gen - NARD sitting up in bed Chest - inspiratory and expiratory rhonchi with decreased BS in the left base CV - irregularly irregular. Tele showing AFib with 15 beat run of NSVT. Also with bradycardia at times Abd - Soft, ND, Positive BS. 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 Psych - Nml mood and affect Skin - skin dry and flaky Objective Data Vital Signs Vital Signs: Vital Signs - 24 hr 10/30/24 12:00 10/30/24 12:00 10/30/24 12:00 Temperature 97.8 F Pulse Rate 75 67 Respiratory Rate 15 Blood Pressure 172/80 H Pulse Oximetry 98 96 Oxygen Delivery Nasal Cannula Oxygen Flow Rate 3 Fraction of Inspired Oxygen 10/30/24 14:00 10/30/24 16:00 10/30/24 16:00 Temperature Pulse Rate 77 79 Respiratory Rate Blood Pressure Pulse Oximetry 94 Oxygen Delivery Nasal Cannula Oxygen Flow Rate 3 Fraction of Inspired Oxygen 10/30/24 18:00 10/30/24 19:29 10/30/24 20:00 Temperature 98.5 F Pulse Rate 76 108 H 85 Respiratory Rate 24 H Blood Pressure 161/77 H Pulse Oximetry 95 Oxygen Delivery Oxygen Flow Rate Fraction of Inspired Oxygen 10/30/24 22:00 10/30/24 22:00 10/31/24 00:00 Temperature Pulse Rate 77 72 Respiratory Rate Blood Pressure Pulse Oximetry 95 Oxygen Delivery Nasal Cannula Oxygen Flow Rate 3 Fraction of Inspired Oxygen 10/31/24 00:10 10/31/24 00:40 10/31/24 02:00 Temperature 98.3 F Pulse Rate 45 L 69 Respiratory Rate 18 Blood Pressure 144/69 H Pulse Oximetry 92 92 Oxygen Delivery Nasal Cannula Oxygen Flow Rate 3 Fraction of Inspired Oxygen 10/31/24 03:56 10/31/24 04:00 10/31/24 04:00 Temperature 98.5 F Pulse Rate 88 80 Respiratory Rate 20 Blood Pressure 165/70 H Pulse Oximetry 92 94 Oxygen Delivery Nasal Cannula Oxygen Flow Rate 3 Fraction of Inspired Oxygen 10/31/24 06:00 10/31/24 08:00 10/31/24 08:00 Temperature Pulse Rate 65 68 Respiratory Rate Blood Pressure Pulse Oximetry 90 Oxygen Delivery Mechanical Ventilation Oxygen Flow Rate 3 Fraction of Inspired Oxygen 10/31/24 08:07 10/31/24 09:07 10/31/24 10:00 Temperature 99.1 F Pulse Rate 64 73 Respiratory Rate 16 Blood Pressure 177/76 H Pulse Oximetry 90 93 Oxygen Delivery Mechanical Ventilation Oxygen Flow Rate 3 Fraction of Inspired Oxygen 32 Intake/Output Intake/Output: Intake & Output 10/28/24 10/29/24 10/30/24 10/31/24 23:59 23:59 23:59 23:59 Intake Total 350 2560 470 Output Total 2400 1300 Balance 350 160 -830 Meds/Results Medications: Active Medications Generic Name Dose Route Start Last Admin Trade Name Freq PRN Reason Stop Dose Admin Acetaminophen 650 mg 10/30/24 02:25 Acetaminophen 325 Mg Tablet PO Q6H PRN Pain or Fever 1-3 Albuterol 2.5 mg 10/30/24 17:00 Albuterol Sulfate Neb 2.5 Mg/3 Ml Inh INHALATION Q4HRT PRN Shortness Of Breath Or Wheezing Ascorbic Acid 500 mg 10/30/24 09:00 10/31/24 09:14 Ascorbic Acid 500 Mg Tablet PO 500 mg BID KALPESH Administration Aspirin 325 mg 10/30/24 09:00 10/31/24 09:14 Aspirin 325 Mg Enteric Tablet PO 325 mg QAM KALPESH Administration Baclofen 5 mg 10/30/24 02:25 Baclofen 5 Mg Tablet PO Q8H PRN MUSCLE SPASM Benzonatate 100 mg 10/30/24 02:25 Benzonatate 100 Mg Capsule PO TID PRN Cough Bisacodyl 10 mg 10/30/24 02:20 Bisacodyl 10 Mg Suppository RECTAL DAILY PRN SEE INSTRUCTIONS Bumetanide 1 mg 10/30/24 09:00 10/31/24 09:14 Bumetanide Inj 1 Mg/4 Ml Vial IV PUSH 1 mg BID KALPESH Administration Cyanocobalamin 1,000 mcg 10/30/24 09:00 10/31/24 09:14 Cyanocobalamin 1,000 Mcg Tablet PO 1,000 mcg DAILY KALPESH Administration Dextrose 12.5 gm 10/30/24 02:33 Dextrose 50% 25 Gm/50 Ml Syringe IV PUSH PRN PRN Hypoglycemia Protocol Epoetin Aaron-epbx 10,000 units 10/30/24 09:00 10/30/24 09:16 Epoetin Aaron-Epbx 10,000 Units/Ml Vial SUB-Q 10,000 units MoWeFr KALPESH Administration Fluticasone/Umeclidinium/Vilanterol 1 puff 10/30/24 08:00 10/31/24 09:07 Fluticasone/Umeclidin/Vilanter 100-62.5-25 Mcg Ellipta INHALATION 1 puff DAILYRT KALPESH Administration Folic Acid 1 mg 10/30/24 09:00 10/31/24 09:14 Folic Acid 1 Mg Tablet PO 1 mg DAILY KALPESH Administration Gabapentin 300 mg 10/30/24 09:00 10/31/24 09:14 Gabapentin 300 Mg Capsule PO 300 mg Q12HR KALPESH Administration Glucagon 1 mg 10/30/24 02:33 Glucagon For Inj 1 Mg Vial IM PRN PRN Hypoglycemia Protocol Glucose 15 gm 10/30/24 02:33 Glucose Oral Gel 15 Gm Of Glucse In 37.5 Gm Tube PO PRN PRN Hypoglycemia Protocol Guaifenesin 600 mg 10/30/24 09:00 10/31/24 09:14 Guaifenesin 12 Hr 600 Mg Tabcr PO 600 mg Q12HR KALPESH Administration Heparin Sodium (Porcine) 6,000 units 10/31/24 09:00 Heparin Sodium 5,000 Units/Ml Vial IV PUSH PRN PRN aPTT less than 55 seconds Heparin Sodium (Porcine) 3,000 units 10/31/24 09:00 Heparin Sodium 5,000 Units/Ml Vial IV PUSH PRN PRN aPTT 55 - 70 seconds Hydrocortisone 1 applic 10/30/24 02:20 Hydrocortisone 1% 30 Gm Cream TOPICAL Q8H PRN FOR ITCHING Hydroxyzine Pamoate 25 mg 10/30/24 02:20 10/30/24 17:20 Hydroxyzine Pamoate 25 Mg Capsule PO 25 mg Q12H PRN Administration anxiety Ceftriaxone Sodium 1 gm in 50 mls @ 100 mls/hr 10/30/24 21:00 10/30/24 22:05 Rocephin 1 Gm/Ns 50 Ml IVPB Infused Q24H KALPESH Infusion Azithromycin 500 mg in 250 mls @ 250 mls/hr 10/30/24 22:00 10/30/24 23:15 Zithromax IVPB Infused Q24H KALPESH Infusion Dextrose 1,000 mls @ 100 mls/hr 10/30/24 02:33 Dextrose 5% 1,000 Ml IVPB PRN PRN Hypoglycemia Protocol Heparin Sodium/Dextrose 25,000 units in 250 mls @ 14 mls/hr 10/31/24 09:00 10/31/24 09:27 Heparin Sodium/D5w 100 Units/Ml IV CONT 1,400 units/hr .[id number] KALPESH 14 mls/hr Administration Protocol 1,400 UNITS/HR Insulin Aspart 4 - 8 units 10/30/24 08:00 10/31/24 09:02 Insulin Aspart (*Bkc) 100 Units/Ml SUB-Q Not Given TIDWM KALPESH Protocol Loratadine 10 mg 10/30/24 09:00 10/31/24 09:14 Loratadine 10 Mg Tablet PO 10 mg QAM KALPESH Administration Magnesium Hydroxide 30 ml 10/30/24 02:20 Magnesium Hydroxide Susp 30 Ml Udc PO QHS PRN Constipation Methylprednisolone Sodium Succinate 40 mg 10/30/24 04:00 10/31/24 09:14 Methylprednisolone Sod Succ 40 Mg Vial IV PUSH 40 mg Q6H KALPESH Administration Multi-Ingred Cream/Lotion/Oil/Oint 1 applic 10/30/24 09:00 10/31/24 09:17 Eucerin Cream 120 Gm Jar TOPICAL 1 applic BID KALPESH Administration Multivitamins Therapeutic 1 tablet 10/30/24 09:00 10/31/24 09:14 Multivitamins Therapeutic Tab (*Bkc) PO 1 tablet DAILY KALPESH Administration Pantoprazole Sodium 40 mg 10/30/24 09:00 10/31/24 09:14 Pantoprazole 40 Mg Tablet PO 40 mg Q12HR KALPESH Administration Saccharomyces Boulardii 250 mg 10/30/24 09:00 10/31/24 09:14 Saccharomyces Boulardii 250 Mg Capsule PO 250 mg BID KALPESH Administration Sertraline HCl 100 mg 10/30/24 21:00 10/30/24 22:11 Sertraline Hcl 50 Mg Tablet PO 100 mg QHS KALPESH Administration Simvastatin 10 mg 10/30/24 21:00 10/30/24 22:11 Simvastatin 10 Mg Tablet PO 10 mg HS KALPESH Administration Sodium Bicarbonate 1,300 mg 10/30/24 09:00 10/31/24 09:14 Sodium Bicarbonate Tab 650 Mg Tablet PO 1,300 mg TID KALPESH Administration Tramadol HCl 50 mg 10/30/24 02:20 Tramadol Hcl (*Crx) 50 Mg Tablet PO Q6H PRN chronic pain 4-6 Trazodone HCl 75 mg 10/30/24 21:00 10/30/24 22:11 Trazodone Hcl 25 Mg Tablet PO 75 mg QHS KALPESH Administration Vitamin D 1,000 units 10/30/24 09:00 10/31/24 09:14 Cholecalciferol 1,000 Units Tablet PO 1,000 units DAILY KALPEHS Administration Radiology Results: ITS Impressions Chest X-Ray 10/29/24 17:30 IMPRESSION: Left basilar atelectasis versus pneumonia. Left moderate pleural effusion. Labs Labs: Laboratory Results - last 24 hr 10/30/24 10/30/24 10/30/24 12:12 17:04 20:40 WBC RBC Hgb Hct MCV MCH MCHC RDW Plt Count MPV Immature Gran % (Auto) Neut % (Auto) Lymph % (Auto) [place] % (Auto) Eos % (Auto) Baso % (Auto) Lymph # (Auto) [place] # (Auto) Eos # (Auto) Baso # (Auto) Abs Immat Gran (auto) Absolute Neuts (auto) Absolute Nucleated RBC Nucleated RBC % Platelet Estimate Hypochromasia Anisocytosis Stomatocytes Schistocytes PT INR APTT Sodium Potassium Chloride Carbon Dioxide Anion Gap BUN Creatinine Estim Creat Clear Calc Estimated GFR Glucose POC Capillary Glucose 292 H 196 H 229 H Calcium Phosphorus Magnesium Total Bilirubin AST ALT Alkaline Phosphatase NT-Pro-B Natriuret Pep Total Protein Albumin Procalcitonin 10/31/24 10/31/24 04:47 07:47 WBC 21.3 H RBC 3.23 L Hgb 9.0 L Hct 29.9 L MCV 92.6 MCH 27.9 MCHC 30.1 L RDW 14.5 Plt Count 199 MPV 9.5 Immature Gran % (Auto) 1.1 H Neut % (Auto) 94.2 H Lymph % (Auto) 2.7 L [place] % (Auto) 1.9 L Eos % (Auto) 0.0 Baso % (Auto) 0.1 L Lymph # (Auto) 0.57 L [place] # (Auto) 0.4 Eos # (Auto) 0.0 Baso # (Auto) 0.0 Abs Immat Gran (auto) 0.24 H Absolute Neuts (auto) 20.1 H Absolute Nucleated RBC 0.020 H Nucleated RBC % 0.1 Platelet Estimate Adequate Hypochromasia 1+ Anisocytosis 1+ Stomatocytes 1+ Schistocytes None seen PT 14.9 H INR 1.1 APTT 32.1 Sodium 136 L Potassium 3.6 Chloride 103 Carbon Dioxide 32 H Anion Gap 1 L BUN 51 H D Creatinine 3.00 H Estim Creat Clear Calc 20 Estimated GFR 20 L Glucose 180 H POC Capillary Glucose 185 H Calcium 7.8 L Phosphorus 4.3 Magnesium 2.1 Total Bilirubin 0.5 AST 30 ALT 18 Alkaline Phosphatase 102 NT-Pro-B Natriuret Pep 76168 H Total Protein 6.0 L Albumin 2.7 L Procalcitonin 0.2
[2024-10-31 12:00] LABS: Glucose Point of Care 269 mg/dl (65-105)
--- NOTE | 2024-10-31 12:26 | PM.PNPUL ---
Progress Note: A&P Assessment and Plan (1) Acute exacerbation of chronic obstructive pulmonary disease: Code(s): J44.1 - Chronic obstructive pulmonary disease with (acute) exacerbation Status: Acute Assessment and Plan: 58 pack year tobacco use, current smoker, In 2014 he had an FEV1 1.58 L, 49%, and has smoked until recently. This is severe obstruction. 10/31/24: Overall the patient tells me he is feeling a little bit better. He still has increased shortness of breath, his cough is unchanged and he has no wheezing. He is afebrile. White blood cell count 21.3, creatinine 3.0, saturations on 3 L nasal cannula is 94%. currently patient has no wheezing. Plan: Will change patient's Solu-Medrol 40 q.6 to prednisone 40 a day, day 3 of steroids. Will continue patient's trilogy inhaler 100 and guaifenesin 600 mg p.o. b.i.d.. I will check an alpha 1 anti trypsin genotype in the morning. Discussed with Dr. Mclain, will follow with you (2) Pleural effusion: Code(s): J90 - Pleural effusion, not elsewhere classified Status: Acute Assessment and Plan: Patient with evidence of fluid overload and a left pleural effusion. Eliquis is on hold. Plan: Patient will have a thoracentesis once this is deemed safe after holding his Eliquis. Last dose 10/30/2023 at 9:04 a.m. Currently on IV heparin. agree with as aggressive diuresis as possible and as tolerated by his cardiac and renal systems. Creatinine 3.0. Currently on Bumex 1 mg IV b.i.d. with net diuresis since admission 440 mL. (3) COVID-19: Code(s): U07.1 - COVID-19 Status: Acute Assessment and Plan: 10/31/24: Overall the patient tells me he is feeling a little bit better. He still has increased shortness of breath, his cough is unchanged and he has no wheezing. He is afebrile. White blood cell count 21.3, creatinine 3.0, saturations on 3 L nasal cannula is 94%. Plan: Overall patient has improved slightly, oxygenation is stable without any active COVID treatment and agree to hold COVID treatment at this time. Will follow clinically. Subjective Date/time seen: 10/31/24 12:26 Interval history: Oct 30, 2024 14:45 ICU 8 IMU as an overflow patient. He is not an ICU patient. 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 Chronic atrial fib on Eliquis. 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 He was smoking until a few weeks ago. The history was difficult to obtain. He lives at [facility], a group home. He was admitted October 12 through the for severe anemia, hemoglobin 6.5, received 2 units of blood, unremarkable EGD and colonoscopy. He was readmitted October 29 with increasing shortness of breath. His chest x-ray shows large left pleural effusion with compressive atelectasis. See the image below. He has worsening of his hypercapnic hypoxemic respiratory failure. Dr Chicas' note from September states that the patient had a fall on his right side and broke ribs. This effusion is on the left side. He was (+) for SARS-CoV-2 on Oct 29. Had COVID in Jun 2024, as well. In the emergency department ceftriaxone and azithromycin IV were ordered, he received each of these. He says that he uses inhalers when he is at [facility]. He uses oxygen around the clock. He has a daily cough with sputum production, some days sputum is clear and other days sputum is discolored. 10/31/24: Overall the patient tells me he is feeling a little bit better. He still has increased shortness of breath, his cough is unchanged and he has no wheezing. He is afebrile. White blood cell count 21.3, creatinine 3.0, saturations on 3 L nasal cannula is 94%. Cumulative diuresis since admission is 440 mL. DATA * white blood cell count October 30 12.9, hemoglobin 10.8, hematocrit 37.2, platelet 216 k. * 10/29/24 CXR - moderate L pleural effusion & atelectasis. Right side is clear. * 07/26/2015 PFT -moderately severe obstructive ventilatory impairment with good response to bronchodilator, air trapping, normal diffusion 07/26/15 after bronchodilator FVC 2.90 L, 64% 3.31 L, 70% +14 FEV1 1.58 L, 49% 1.68 L, 53%, +7 FEV1/FVC 54% 51% [id number]% TLC 7.63 L, 109% RV 4.63 L, 175% ERV RV/TLC DLCO 19.4, 78 DLCO/VA 4.75, 12.9 * ABG Oct 29 Oct 29 Oct 30 pH 7.23 7.22 7.36 pCO2 67 70 46 pO2 93 79 91 HCO3 28 31 23 sat O2 delivery O2 3 L 7 L 32% rate IPAP 18 EPAP 8 * 07/30/2024 KEITH 1:40, cytoplasmic pattern, negative ANCA, negative [id number] DNA. 02/2022 echo ; Technically difficult study with limited views. 2. Left ventricular chamber dimension is normal. 3. Left ventricular systolic function is hyperdynamic, estimated at >70%. 4. There is mildly increased left ventricular wall thickness. 5. Left atrial chamber dimension is moderately enlarged. 6. Right atrial chamber dimension is moderately enlarged. 7. There is trace tricuspid valve regurgitation. 8. Moderate pulmonary hypertension, estimated pulmonary arterial systolic pressure is 49 mmHg Review of Systems Constitutional: Constitutional: Reports no additional constitutional complaints Eyes: Eyes: Reports no additional eye complaints ENT: Reports system reviewed and no additional complaints, except as documented Cardiovascular: Cardiovascular: Reports no additional cardiovascular complaints Respiratory: Respiratory: Reports no additional respiratory complaints Gastrointestinal: Gastrointestinal: Reports no additional gastrointestinal complaints Musculoskeletal: Musculoskeletal: Reports no additional musculoskeletal complaints Neurologic: Reports system reviewed and no additional complaints, except as documented Psychiatric: Psychiatric: Reports no additional psychiatric complaints Endocrine: Endocrine: Reports no additional endocrine complaints Hematologic/Lymphatic: Hematologic/Lymphatic: Reports no additional hematologic/lymphatic complaints Allergic/Immunologic: Allergic/Immunologic: Reports no additional allergic/immunologic complaints Exam Const: General: cooperative, healthy appearing and comfortable Orientation/consciousness: oriented to person, oriented to place and oriented to time HENMT: Head: normal to inspection Ears: hearing grossly normal bilaterally Eyes: General: appearance normal, both eyes and all related structures Neck: Neck: normal visual inspection Chest: Chest palpation & inspection: normal inspection of the chest Resp: Effort & Inspection: normal respiratory effort and able to speak in complete sentences Auscultation: no crackles, no rales, no rhonchi, no wheezes and diminished lung sounds Other: left base Cardio: Jugular venous distension: no JVD GI: Inspection: normal to inspection GI Palp: No abdominal tenderness Skin: General skin exam: normal color Neuro: General: oriented to person, oriented to place and oriented to time Extrem: General: normal to inspection Other: Left BKA Psych: Appearance: grossly normal Objective Data Vital Signs Vital Signs: Vital Signs - 24 hr 10/30/24 14:00 10/30/24 16:00 10/30/24 16:00 Temperature Pulse Rate 77 79 Respiratory Rate Blood Pressure Pulse Oximetry 94 Oxygen Delivery Nasal Cannula Oxygen Flow Rate 3 Fraction of Inspired Oxygen 10/30/24 18:00 10/30/24 19:29 10/30/24 20:00 Temperature 36.9 C Pulse Rate 76 108 H 85 Respiratory Rate 24 H Blood Pressure 161/77 H Pulse Oximetry 95 Oxygen Delivery Oxygen Flow Rate Fraction of Inspired Oxygen 10/30/24 22:00 10/30/24 22:00 10/31/24 00:00 Temperature Pulse Rate 77 72 Respiratory Rate Blood Pressure Pulse Oximetry 95 Oxygen Delivery Nasal Cannula Oxygen Flow Rate 3 Fraction of Inspired Oxygen 10/31/24 00:10 10/31/24 00:40 10/31/24 02:00 Temperature 36.8 C Pulse Rate 45 L 69 Respiratory Rate 18 Blood Pressure 144/69 H Pulse Oximetry 92 92 Oxygen Delivery Nasal Cannula Oxygen Flow Rate 3 Fraction of Inspired Oxygen 10/31/24 03:56 10/31/24 04:00 10/31/24 04:00 Temperature 36.9 C Pulse Rate 88 80 Respiratory Rate 20 Blood Pressure 165/70 H Pulse Oximetry 92 94 Oxygen Delivery Nasal Cannula Oxygen Flow Rate 3 Fraction of Inspired Oxygen 10/31/24 06:00 10/31/24 08:00 10/31/24 08:00 Temperature Pulse Rate 65 68 Respiratory Rate Blood Pressure Pulse Oximetry 90 Oxygen Delivery Mechanical Ventilation Oxygen Flow Rate 3 Fraction of Inspired Oxygen 10/31/24 08:07 10/31/24 09:07 10/31/24 10:00 Temperature 37.3 C Pulse Rate 64 73 Respiratory Rate 16 Blood Pressure 177/76 H Pulse Oximetry 90 93 Oxygen Delivery Mechanical Ventilation Oxygen Flow Rate 3 Fraction of Inspired Oxygen 32 Intake/Output Intake/Output: Intake & Output 10/28/24 10/29/24 10/30/24 10/31/24 23:59 23:59 23:59 23:59 Intake Total 350 2560 470 Output Total 2400 1300 Balance 350 160 -830 Meds/Results Medications: Active Medications Generic Name Dose Route Start Last Admin Trade Name Freq PRN Reason Stop Dose Admin Acetaminophen 650 mg 10/30/24 02:25 Acetaminophen 325 Mg Tablet PO Q6H PRN Pain or Fever 1-3 Albuterol 2.5 mg 10/30/24 17:00 Albuterol Sulfate Neb 2.5 Mg/3 Ml Inh INHALATION Q4HRT PRN Shortness Of Breath Or Wheezing Ascorbic Acid 500 mg 10/30/24 09:00 10/31/24 09:14 Ascorbic Acid 500 Mg Tablet PO 500 mg BID KALPESH Administration Aspirin 325 mg 10/30/24 09:00 10/31/24 09:14 Aspirin 325 Mg Enteric Tablet PO 325 mg QAM KALPESH Administration Baclofen 5 mg 10/30/24 02:25 Baclofen 5 Mg Tablet PO Q8H PRN MUSCLE SPASM Benzonatate 100 mg 10/30/24 02:25 Benzonatate 100 Mg Capsule PO TID PRN Cough Bisacodyl 10 mg 10/30/24 02:20 Bisacodyl 10 Mg Suppository RECTAL DAILY PRN SEE INSTRUCTIONS Bumetanide 1 mg 10/30/24 09:00 10/31/24 09:14 Bumetanide Inj 1 Mg/4 Ml Vial IV PUSH 1 mg BID KALPESH Administration Cyanocobalamin 1,000 mcg 10/30/24 09:00 10/31/24 09:14 Cyanocobalamin 1,000 Mcg Tablet PO 1,000 mcg DAILY KALPESH Administration Dextrose 12.5 gm 10/30/24 02:33 Dextrose 50% 25 Gm/50 Ml Syringe IV PUSH PRN PRN Hypoglycemia Protocol Epoetin Aaron-epbx 10,000 units 10/30/24 09:00 10/30/24 09:16 Epoetin Aaron-Epbx 10,000 Units/Ml Vial SUB-Q 10,000 units MoWeFr KALPESH Administration Fluticasone/Umeclidinium/Vilanterol 1 puff 10/30/24 08:00 10/31/24 09:07 Fluticasone/Umeclidin/Vilanter 100-62.5-25 Mcg Ellipta INHALATION 1 puff DAILYRT KALPESH Administration Folic Acid 1 mg 10/30/24 09:00 10/31/24 09:14 Folic Acid 1 Mg Tablet PO 1 mg DAILY KALPESH Administration Gabapentin 300 mg 10/30/24 09:00 10/31/24 09:14 Gabapentin 300 Mg Capsule PO 300 mg Q12HR KALPESH Administration Glucagon 1 mg 10/30/24 02:33 Glucagon For Inj 1 Mg Vial IM PRN PRN Hypoglycemia Protocol Glucose 15 gm 10/30/24 02:33 Glucose Oral Gel 15 Gm Of Glucse In 37.5 Gm Tube PO PRN PRN Hypoglycemia Protocol Guaifenesin 600 mg 10/30/24 09:00 10/31/24 09:14 Guaifenesin 12 Hr 600 Mg Tabcr PO 600 mg Q12HR KALPESH Administration Heparin Sodium (Porcine) 6,000 units 10/31/24 09:00 Heparin Sodium 5,000 Units/Ml Vial IV PUSH PRN PRN aPTT less than 55 seconds Heparin Sodium (Porcine) 3,000 units 10/31/24 09:00 Heparin Sodium 5,000 Units/Ml Vial IV PUSH PRN PRN aPTT 55 - 70 seconds Hydrocortisone 1 applic 10/30/24 02:20 Hydrocortisone 1% 30 Gm Cream TOPICAL Q8H PRN FOR ITCHING Hydroxyzine Pamoate 25 mg 10/30/24 02:20 10/30/24 17:20 Hydroxyzine Pamoate 25 Mg Capsule PO 25 mg Q12H PRN Administration anxiety Ceftriaxone Sodium 1 gm in 50 mls @ 100 mls/hr 10/30/24 21:00 10/30/24 22:05 Rocephin 1 Gm/Ns 50 Ml IVPB Infused Q24H KALPESH Infusion Azithromycin 500 mg in 250 mls @ 250 mls/hr 10/30/24 22:00 10/30/24 23:15 Zithromax IVPB Infused Q24H KALPESH Infusion Dextrose 1,000 mls @ 100 mls/hr 10/30/24 02:33 Dextrose 5% 1,000 Ml IVPB PRN PRN Hypoglycemia Protocol Heparin Sodium/Dextrose 25,000 units in 250 mls @ 14 mls/hr 10/31/24 09:00 10/31/24 09:27 Heparin Sodium/D5w 100 Units/Ml IV CONT 1,400 units/hr .[id number] KALPESH 14 mls/hr Administration Protocol 1,400 UNITS/HR Insulin Aspart 4 - 8 units 10/30/24 08:00 10/31/24 09:02 Insulin Aspart (*Bkc) 100 Units/Ml SUB-Q Not Given TIDWM [facility] Protocol Loratadine 10 mg 10/30/24 09:00 10/31/24 09:14 Loratadine 10 Mg Tablet PO 10 mg QAM KALPESH Administration Magnesium Hydroxide 30 ml 10/30/24 02:20 Magnesium Hydroxide Susp 30 Ml Udc PO QHS PRN Constipation Methylprednisolone Sodium Succinate 40 mg 10/30/24 04:00 10/31/24 09:14 Methylprednisolone Sod Succ 40 Mg Vial IV PUSH 40 mg Q6H KALPESH Administration Multi-Ingred Cream/Lotion/Oil/Oint 1 applic 10/30/24 09:00 10/31/24 09:17 Eucerin Cream 120 Gm Jar TOPICAL 1 applic BID KALPESH Administration Multivitamins Therapeutic 1 tablet 10/30/24 09:00 10/31/24 09:14 Multivitamins Therapeutic Tab (*Bkc) PO 1 tablet DAILY KALPESH Administration Pantoprazole Sodium 40 mg 10/30/24 09:00 10/31/24 09:14 Pantoprazole 40 Mg Tablet PO 40 mg Q12HR KALPESH Administration Saccharomyces Boulardii 250 mg 10/30/24 09:00 10/31/24 09:14 Saccharomyces Boulardii 250 Mg Capsule PO 250 mg BID KALPESH Administration Sertraline HCl 100 mg 10/30/24 21:00 10/30/24 22:11 Sertraline Hcl 50 Mg Tablet PO 100 mg QHS KALPESH Administration Simvastatin 10 mg 10/30/24 21:00 10/30/24 22:11 Simvastatin 10 Mg Tablet PO 10 mg HS KALPESH Administration Sodium Bicarbonate 1,300 mg 10/30/24 09:00 10/31/24 09:14 Sodium Bicarbonate Tab 650 Mg Tablet PO 1,300 mg TID KALPESH Administration Tramadol HCl 50 mg 10/30/24 02:20 Tramadol Hcl (*Crx) 50 Mg Tablet PO Q6H PRN chronic pain 4-6 Trazodone HCl 75 mg 10/30/24 21:00 10/30/24 22:11 Trazodone Hcl 25 Mg Tablet PO 75 mg QHS KALPESH Administration Vitamin D 1,000 units 10/30/24 09:00 10/31/24 09:14 Cholecalciferol 1,000 Units Tablet PO 1,000 units DAILY KALPESH Administration Radiology Results: ITS Impressions Chest X-Ray 10/29/24 17:30 IMPRESSION: Left basilar atelectasis versus pneumonia. Left moderate pleural effusion. Labs Labs: Laboratory Results - last 24 hr 10/30/24 10/30/24 10/31/24 17:04 20:40 04:47 WBC 21.3 H RBC 3.23 L Hgb 9.0 L Hct 29.9 L MCV 92.6 MCH 27.9 MCHC 30.1 L RDW 14.5 Plt Count 199 MPV 9.5 Immature Gran % (Auto) 1.1 H Neut % (Auto) 94.2 H Lymph % (Auto) 2.7 L [place] % (Auto) 1.9 L Eos % (Auto) 0.0 Baso % (Auto) 0.1 L Lymph # (Auto) 0.57 L [place] # (Auto) 0.4 Eos # (Auto) 0.0 Baso # (Auto) 0.0 Abs Immat Gran (auto) 0.24 H Absolute Neuts (auto) 20.1 H Absolute Nucleated RBC 0.020 H Nucleated RBC % 0.1 Platelet Estimate Adequate Hypochromasia 1+ Anisocytosis 1+ Stomatocytes 1+ Schistocytes None seen PT 14.9 H INR 1.1 APTT 32.1 Sodium 136 L Potassium 3.6 Chloride 103 Carbon Dioxide 32 H Anion Gap 1 L BUN 51 H D Creatinine 3.00 H Estim Creat Clear Calc 20 Estimated GFR 20 L Glucose 180 H POC Capillary Glucose 196 H 229 H Calcium 7.8 L Phosphorus 4.3 Magnesium 2.1 Total Bilirubin 0.5 AST 30 ALT 18 Alkaline Phosphatase 102 NT-Pro-B Natriuret Pep 25056 H Total Protein 6.0 L Albumin 2.7 L Procalcitonin 0.2 10/31/24 10/31/24 07:47 11:55 WBC RBC Hgb Hct MCV MCH MCHC RDW Plt Count MPV Immature Gran % (Auto) Neut % (Auto) Lymph % (Auto) [place] % (Auto) Eos % (Auto) Baso % (Auto) Lymph # (Auto) [place] # (Auto) Eos # (Auto) Baso # (Auto) Abs Immat Gran (auto) Absolute Neuts (auto) Absolute Nucleated RBC Nucleated RBC % Platelet Estimate Hypochromasia Anisocytosis Stomatocytes Schistocytes PT INR APTT Sodium Potassium Chloride Carbon Dioxide Anion Gap BUN Creatinine Estim Creat Clear Calc Estimated GFR Glucose POC Capillary Glucose 185 H 269 H Calcium Phosphorus Magnesium Total Bilirubin AST ALT Alkaline Phosphatase NT-Pro-B Natriuret Pep Total Protein Albumin Procalcitonin
[2024-10-31] MEDS: INSULIN ASPART (*BKC) 100 UNITS/ML SUB-Q ×2 (12:35→17:57)
[2024-10-31] MEDS: ALBUTEROL SULFATE NEB 2.5 MG/3 ML INH INHALATION ×2 (12:41→23:56)
[2024-10-31] MEDS: predniSONE 20 MG TABLET 40 MG PO (13:52)
[2024-10-31] MEDS: traMADol HCL (*CRX) 50 MG TABLET PO (13:52)
[2024-10-31 17:38] LABS: Partial Thromboplastin Time 87.5 Seconds (22.3-36.8)
[2024-10-31 17:39] LABS: Glucose Point of Care 205 mg/dl (65-105)
[2024-10-31 20:38] LABS: Glucose Point of Care 252 mg/dl (65-105)
[2024-10-31] MEDS: SIMVASTATIN 10 MG TABLET PO (22:30)
[2024-10-31] MEDS: SERTRALINE HCL 50 MG TABLET 100 MG PO (22:30)
[2024-10-31] MEDS: traZODone HCL 25 MG TABLET 75 MG PO (22:30)
[2024-10-31] MEDS: AZITHROMYCIN 500 MG/NS 250 ML 500 MG/250 ML BAG 250 MG IVPB (23:15)
[2024-10-31 23:37] LABS: Partial Thromboplastin Time 110.1 Seconds (22.3-36.8)
[2024-11-01] VITALS (28 sets, daily range): BP systolic 139–176; BP diastolic 72–92; PULSE 66–89; RESP 16–24; TEMP 36.6–36.9; O2SAT 94–99
[2024-11-01] MEDS: HEPARIN SOD/D5W 100 UNITS/ML 25,000 UNITS/250 ML BAG 12 UNITS IV CONT ×2 (01:13→22:53)
--- NOTE | 2024-11-01 05:44 | PC.NURSE ---
Patient had a run of non sustained Vtach, 11 beat, at 0535. Patient had a previous 15 run on 10/31. A strip was printed and placed in chart.
[2024-11-01 07:46] LABS: Basophils Percent Auto 0.1 % (0.2-1.2); Hemoglobin 8.5 g/dL (14.0-18.0); Immature Granulocyte Absolute 0.26 K/mm3 (0.00-0.031); Immature Granulocyte Percent A 1.4 % (0-0.5); Lymphocytes Absolute Auto 1.08 K/mm3 (0.9-3.2); Lymphocytes Percent Auto 5.8 % (18.3-44.2); Mean Corpuscular HGB Conc 30.4 g/dl (32-36); Mean Corpuscular Hemoglobin 27.8 pg (26-34); Mean Corpuscular Volume 91.5 fl (80-100); Mean Platelet Volume 9.3 fl (7.4-10.4); Monocytes Absolute Auto 1.4 K/mm3 (0.1-0.6); Monocytes Percent Auto 7.6 % (2.6-8.5); Neutrophils Absolute Auto 15.9 K/mm3 (1.3-6.7); Neutrophils Percent Auto 85.1 % (45.5-73.1); Platelet Count Result 181 k/mm3 (150-375); Red Blood Count 3.06 M/mm3 (4.6-6.20); Red Cell Distribution Width 14.6 % (11.5-14.5); White Blood Count 18.7 K/mm3 (4.5-10.0)
[2024-11-01] MEDS: ALBUTEROL SULFATE NEB 2.5 MG/3 ML INH INHALATION ×2 (07:46→21:28)
[2024-11-01] MEDS: FLUTICASONE/UMECLIDIN/VILANTER 100-62.5-25 MCG ELLIPTA 1 PUFF INHALATION (07:47)
[2024-11-01 07:59] LABS: Partial Thromboplastin Time 97.8 Seconds (22.3-36.8)
[2024-11-01 08:13] LABS: Albumin Level 2.4 g/dL (3.5-5.1); Anion Gap -1 mmol/L (4-12); Blood Urea Nitrogen 53 mg/dL (9-20); Calcium 7.3 mg/dL (8.4-10.2); Carbon Dioxide 36 mmol/L (22-30); Chloride 101 mmol/L (98-107); Estimated CRCL calculation 21 ml/min; Estimated Glomerular Filt Rate 22; Glucose 124 mg/dL (65-110); Magnesium 1.8 mg/dL (1.6-2.3); Phosphorus 3.8 mg/dL (2.5-4.5); Potassium 3.3 mmol/L (3.4-5.0); Sodium 136 mmol/L (137-145)
[2024-11-01] MEDS: CHOLECALCIFEROL 1,000 UNITS TABLET 1000 UNITS PO (08:13)
[2024-11-01] MEDS: SODIUM BICARBONATE TAB 650 MG TABLET 1300 MG PO (08:14)
[2024-11-01] MEDS: SACCHAROMYCES BOULARDII 250 MG CAPSULE PO ×2 (08:14→16:49)
[2024-11-01] MEDS: BUMETANIDE INJ 1 MG/4 ML VIAL IV PUSH ×2 (08:15→16:48)
[2024-11-01] MEDS: GABAPENTIN 300 MG CAPSULE PO ×2 (08:15→21:54)
[2024-11-01] MEDS: ASPIRIN 325 MG ENTERIC TABLET PO (08:15)
[2024-11-01] MEDS: FOLIC ACID 1 MG TABLET PO (08:16)
[2024-11-01] MEDS: PANTOPRAZOLE 40 MG TABLET PO ×2 (08:16→21:55)
[2024-11-01] MEDS: predniSONE 20 MG TABLET 40 MG PO (08:16)
[2024-11-01] MEDS: MULTIVITAMINS THERAPEUTIC TAB (*BKC) 1 TABLET PO (08:16)
[2024-11-01] MEDS: guaiFENesin 12 HR 600 MG TABCR PO (08:16)
[2024-11-01] MEDS: ASCORBIC ACID 500 MG TABLET PO ×2 (08:16→16:49)
[2024-11-01] MEDS: LORATADINE 10 MG TABLET PO (08:16)
[2024-11-01] MEDS: CYANOCOBALAMIN 1,000 MCG TABLET 1000 MCG PO (08:19)
[2024-11-01 08:25] LABS: Glucose Point of Care 143 mg/dl (65-105)
[2024-11-01 11:59] LABS: Glucose Point of Care 247 mg/dl (65-105)
--- NOTE | 2024-11-01 12:04 | P.PNPL_ITS ---
Progress Note: A&P Assessment and Plan (1) Acute exacerbation of chronic obstructive pulmonary disease: Code(s): J44.1 - Chronic obstructive pulmonary disease with (acute) exacerbation Status: Acute Assessment and Plan: 58 pack year tobacco use, current smoker, In 2014 he had an FEV1 1.58 L, 49%, and has smoked until recently. This is severe obstruction. 10/31/24: Overall the patient tells me he is feeling a little bit better. He still has increased shortness of breath, his cough is unchanged and he has no wheezing. He is afebrile. White blood cell count 21.3, creatinine 3.0, saturations on 3 L nasal cannula is 94%. currently patient has no wheezing. Plan: Will change patient's Solu-Medrol 40 q.6 to prednisone 40 a day, day 3 of steroids. Will continue patient's trilogy inhaler 100 and guaifenesin 600 mg p.o. b.i.d.. I will check an alpha 1 anti trypsin genotype in the morning. 11/01/2024: Overall the patient states he is a little bit better. He still complains of some rough breathing. His cough is better. His phlegm is unchanged. He had a temperature of 37.7?. Currently is on 2 L with saturations 98%. White blood cell count 18.7, creatinine 2.80, BUN 53 Plan: continue prednisone 40 mg a day, day 4 of steroids, no wheezing and will continue trilogy inhaler 100 and increase guaifenesin to 1200 mg p.o. b.i.d. Once patient is volume status is corrected and thoracentesis is performed will re-evaluate for hypercarbic respiratory failure. Discussed with Dr. Mclain, will follow with you (2) Pleural effusion: Code(s): J90 - Pleural effusion, not elsewhere classified Status: Acute Assessment and Plan: 10/31/24: Patient with evidence of fluid overload and a left pleural effusion. Eliquis is on hold. Plan: Patient will have a thoracentesis once this is deemed safe after holding his Eliquis. Last dose 10/30/2023 at 9:04 a.m. Currently on IV heparin. agree with as aggressive diuresis as possible and as tolerated by his cardiac and renal systems. Creatinine 3.0. Currently on Bumex 1 mg IV b.i.d. with net diuresis since admission 440 mL. 11/01/24: patient is on Bumex 1 mg IV b.i.d. with diuresis of 472 mL yesterday. he is positive 700 mils since admission. His weight today is 74.5 with an admission weight of 77.2. CT scan of the chest on 10/31/2024 demonstrated large left pleural effusion with collapse of the lingula and left lower lobe. Unable to adequately assess lymphadenopathy and or underlying lung mass. Plan: Agree with as aggressive diuresis as tolerated by his cardiac and renal systems per Nephrology and hospitalist teams. Patient is scheduled to have a thoracentesis hopefully on 11/02/2024. (3) COVID-19: Code(s): U07.1 - COVID-19 Status: Acute Assessment and Plan: Patient tested positive for COVID on 10/29/2024. Of note the patient also tested positive on 07/27/2024 and he received no treatment at that time. 10/31/24: Overall the patient tells me he is feeling a little bit better. He still has increased shortness of breath, his cough is unchanged and he has no wheezing. He is afebrile. White blood cell count 21.3, creatinine 3.0, saturations on 3 L nasal cannula is 94%. Plan: Overall patient has improved slightly, oxygenation is stable without any active COVID treatment and agree to hold COVID treatment at this time. Will follow clinically. 11/01/24: he continues to feel little bit better each day. Oxygenation has remained stable on 2 L nasal cannula saturations 98%. CT scan of the chest on 10/31/2023 showed a large left pleural effusion, mild area of infiltrate in the right upper lobe without evidence of diffuse ground-glass infiltrates from COVID. Plan: Continue supportive care at this time. Subjective Date/time seen: 11/01/24 12:04 Interval history: Oct 30, 2024 14:45 ICU 8 IMU as an overflow patient. He is not an ICU patient. 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 Chronic atrial fib on Eliquis. 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 He was smoking until a few weeks ago. The history was difficult to obtain. He lives at [facility], a longterm. He was admitted October 12 through the for severe anemia, hemoglobin 6.5, received 2 units of blood, unremarkable EGD and colonoscopy. He was readmitted October 29 with increasing shortness of breath. His chest x-ray shows large left pleural effusion with compressive atelectasis. See the image below. He has worsening of his hypercapnic hypoxemic respiratory failure. Dr Chicas' note from September states that the patient had a fall on his right side and broke ribs. This effusion is on the left side. He was (+) for SARS-CoV-2 on Oct 29. Had COVID in Jun 2024, as well. In the emergency department ceftriaxone and azithromycin IV were ordered, he received each of these. He says that he uses inhalers when he is at [facility]. He uses oxygen around the clock. He has a daily cough with sputum production, some days sputum is clear and other days sputum is discolored. 10/31/24: Overall the patient tells me he is feeling a little bit better. He still has increased shortness of breath, his cough is unchanged and he has no wheezing. He is afebrile. White blood cell count 21.3, creatinine 3.0, BUN 51, saturations on 3 L nasal cannula is 94%. Cumulative diuresis since admission is 440 mL. 11/01/2024: Overall the patient states he is a little bit better. He still complains of some rough breathing. His cough is better. His phlegm is unchanged. He had a temperature of 37.7?. Currently is on 2 L with saturations 98%. White blood cell count 18.7, creatinine 2.80, BUN 53 DATA * white blood cell count October 30 12.9, hemoglobin 10.8, hematocrit 37.2, platelet 216 k. * 10/29/24 CXR - moderate L pleural effusion & atelectasis. Right side is clear. * 07/26/2015 PFT -moderately severe obstructive ventilatory impairment with good response to bronchodilator, air trapping, normal diffusion 07/26/15 after bronchodilator FVC 2.90 L, 64% 3.31 L, 70% +14 FEV1 1.58 L, 49% 1.68 L, 53%, +7 FEV1/FVC 54% 51% VBX60-75% TLC 7.63 L, 109% RV 4.63 L, 175% ERV RV/TLC DLCO 19.4, 78 DLCO/VA 4.75, 12.9 * ABG Oct 29 Oct 29 Oct 30 pH 7.23 7.22 7.36 pCO2 67 70 46 pO2 93 79 91 HCO3 28 31 23 sat O2 delivery O2 3 L 7 L 32% rate IPAP 18 EPAP 8 * 07/30/2024 KEITH 1:40, cytoplasmic pattern, negative ANCA, negative [id number] DNA. 02/2022 echo ; Technically difficult study with limited views. 2. Left ventricular chamber dimension is normal. 3. Left ventricular systolic function is hyperdynamic, estimated at >70%. 4. There is mildly increased left ventricular wall thickness. 5. Left atrial chamber dimension is moderately enlarged. 6. Right atrial chamber dimension is moderately enlarged. 7. There is trace tricuspid valve regurgitation. 8. Moderate pulmonary hypertension, estimated pulmonary arterial systolic pressure is 49 mmHg Review of Systems Review of Systems: All systems reviewed & are unremarkable except as noted in HPI and below Constitutional: Constitutional: Reports no additional constitutional complaints Eyes: Eyes: Reports no additional eye complaints ENT: Reports system reviewed and no additional complaints, except as documented Cardiovascular: Cardiovascular: Reports no additional cardiovascular complaints Respiratory: Respiratory: Reports no additional respiratory complaints Gastrointestinal: Gastrointestinal: Reports no additional gastrointestinal complaints Musculoskeletal: Musculoskeletal: Reports no additional musculoskeletal complaints Neurologic: Reports system reviewed and no additional complaints, except as documented Psychiatric: Psychiatric: Reports no additional psychiatric complaints Endocrine: Endocrine: Reports no additional endocrine complaints Hematologic/Lymphatic: Hematologic/Lymphatic: Reports no additional hematologic/lymphatic complaints Allergic/Immunologic: Allergic/Immunologic: Reports no additional allergic/immunologic complaints Exam Const: General: cooperative, healthy appearing and comfortable Orientation/consciousness: oriented to person, oriented to place and oriented to time HENMT: Head: normal to inspection Ears: hearing grossly normal bilaterally Eyes: General: appearance normal, both eyes and all related structures Neck: Neck: normal visual inspection Chest: Chest palpation & inspection: normal inspection of the chest Resp: Effort & Inspection: normal respiratory effort and able to speak in complete sentences Auscultation: no crackles, no rales, no rhonchi, no whe ezes and diminished lung sounds Other: left base Cardio: Jugular venous distension: no JVD GI: Inspection: normal to inspection Skin: General skin exam: normal color Neuro: General: oriented to person, oriented to place and oriented to time Extrem: General: normal to inspection Other: Left BKA Psych: Appearance: grossly normal Objective Data Vital Signs Vital Signs: Vital Signs - 24 hr 10/31/24 12:41 10/31/24 12:52 10/31/24 13:45 Temperature 37.1 C Pulse Rate 78 80 85 Respiratory Rate 20 20 20 Blood Pressure 166/78 H Pulse Oximetry 94 Oxygen Delivery Oxygen Flow Rate Fraction of Inspired Oxygen 10/31/24 14:00 10/31/24 16:00 10/31/24 16:00 Temperature 37.7 C H Pulse Rate 76 77 72 Respiratory Rate 20 Blood Pressure 157/74 H Pulse Oximetry 99 Oxygen Delivery Oxygen Flow Rate Fraction of Inspired Oxygen 10/31/24 18:00 10/31/24 19:40 10/31/24 20:00 Temperature 36.9 C Pulse Rate 80 73 84 Respiratory Rate 18 Blood Pressure 167/66 H Pulse Oximetry 96 Oxygen Delivery Oxygen Flow Rate Fraction of Inspired Oxygen 10/31/24 22:00 10/31/24 22:10 10/31/24 23:24 Temperature 37.2 C Pulse Rate 71 86 Respiratory Rate 24 H Blood Pressure 174/73 H Pulse Oximetry 95 96 Oxygen Delivery Nasal Cannula Oxygen Flow Rate 2 Fraction of Inspired Oxygen 11/01/24 00:00 11/01/24 00:06 11/01/24 00:09 Temperature Pulse Rate 89 66 Respiratory Rate 22 H Blood Pressure Pulse Oximetry 95 Oxygen Delivery Mechanical Ventilation Oxygen Flow Rate 3 Fraction of Inspired Oxygen 11/01/24 00:20 11/01/24 02:00 11/01/24 03:56 Temperature 36.8 C Pulse Rate 76 66 Respiratory Rate 20 Blood Pressure 156/74 H Pulse Oximetry 96 97 Oxygen Delivery Nasal Cannula Oxygen Flow Rate 2 Fraction of Inspired Oxygen 11/01/24 04:00 11/01/24 04:10 11/01/24 06:00 Temperature Pulse Rate 77 66 Respiratory Rate Blood Pressure Pulse Oximetry 94 Oxygen Delivery Nasal Cannula Oxygen Flow Rate 2 Fraction of Inspired Oxygen 11/01/24 07:49 11/01/24 07:49 11/01/24 08:00 Temperature Pulse Rate 76 82 Respiratory Rate 20 16 Blood Pressure Pulse Oximetry 94 97 Oxygen Delivery Mechanical Ventilation Nasal Cannula Oxygen Flow Rate 2 2 Fraction of Inspired Oxygen 28 28 11/01/24 08:00 11/01/24 08:01 11/01/24 08:36 Temperature 36.6 C Pulse Rate 76 84 82 Respiratory Rate 20 16 Blood Pressure 139/90 Pulse Oximetry 97 Oxygen Delivery Oxygen Flow Rate Fraction of Inspired Oxygen 11/01/24 10:00 Temperature Pulse Rate 80 Respiratory Rate Blood Pressure Pulse Oximetry Oxygen Delivery Oxygen Flow Rate Fraction of Inspired Oxygen Intake/Output Intake/Output: Intake & Output 10/29/24 10/30/24 10/31/24 11/01/24 23:59 23:59 23:59 23:59 Intake Total 350 2560 1228 662.7 Output Total 2400 1700 Balance 350 160 -472 662.7 Meds/Results Medications: Active Medications Generic Name Dose Route Start Last Admin Trade Name Freq PRN Reason Stop Dose Admin Acetaminophen 650 mg 10/30/24 02:25 Acetaminophen 325 Mg Tablet PO Q6H PRN Pain or Fever 1-3 Acetazolamide Sodium 250 mg 11/01/24 11:51 Acetazolamide Sodium For Inj 500 Mg Vial IV PUSH 11/01/24 11:52 ONCE ONE Albuterol 2.5 mg 10/30/24 17:00 11/01/24 07:46 Albuterol Sulfate Neb 2.5 Mg/3 Ml Inh INHALATION 2.5 mg Q4HRT PRN Administration Shortness Of Breath Or Wheezing Ascorbic Acid 500 mg 10/30/24 09:00 11/01/24 08:16 Ascorbic Acid 500 Mg Tablet PO 500 mg BID KALPESH Administration Aspirin 325 mg 10/30/24 09:00 11/01/24 08:15 Aspirin 325 Mg Enteric Tablet PO 325 mg QAM KALPESH Administration Baclofen 5 mg 10/30/24 02:25 Baclofen 5 Mg Tablet PO Q8H PRN MUSCLE SPASM Benzonatate 100 mg 10/30/24 02:25 Benzonatate 100 Mg Capsule PO TID PRN Cough Bisacodyl 10 mg 10/30/24 02:20 Bisacodyl 10 Mg Suppository RECTAL DAILY PRN SEE INSTRUCTIONS Bumetanide 1 mg 10/30/24 09:00 11/01/24 08:15 Bumetanide Inj 1 Mg/4 Ml Vial IV PUSH 1 mg BID KALPESH Administration Cyanocobalamin 1,000 mcg 10/30/24 09:00 11/01/24 08:19 Cyanocobalamin 1,000 Mcg Tablet PO 1,000 mcg DAILY KALPESH Administration Dextrose 12.5 gm 10/30/24 02:33 Dextrose 50% 25 Gm/50 Ml Syringe IV PUSH PRN PRN Hypoglycemia Protocol Epoetin Aaron-epbx 10,000 units 10/30/24 09:00 10/30/24 09:16 Epoetin Aaron-Epbx 10,000 Units/Ml Vial SUB-Q 10,000 units MoWeFr KALPESH Administration Fluticasone/Umeclidinium/Vilanterol 1 puff 10/30/24 08:00 11/01/24 07:47 Fluticasone/Umeclidin/Vilanter 100-62.5-25 Mcg Ellipta INHALATION 1 puff DAILYRT KALPESH Administration Folic Acid 1 mg 10/30/24 09:00 11/01/24 08:16 Folic Acid 1 Mg Tablet PO 1 mg DAILY KALPESH Administration Gabapentin 300 mg 10/30/24 09:00 11/01/24 08:15 Gabapentin 300 Mg Capsule PO 300 mg Q12HR KALPESH Administration Glucagon 1 mg 10/30/24 02:33 Glucagon For Inj 1 Mg Vial IM PRN PRN Hypoglycemia Protocol Glucose 15 gm 10/30/24 02:33 Glucose Oral Gel 15 Gm Of Glucse In 37.5 Gm Tube PO PRN PRN Hypoglycemia Protocol Guaifenesin 600 mg 10/30/24 09:00 11/01/24 08:16 Guaifenesin 12 Hr 600 Mg Tabcr PO 600 mg Q12HR KALPESH Administration Heparin Sodium (Porcine) 6,000 units 10/31/24 09:00 Heparin Sodium 5,000 Units/Ml Vial IV PUSH PRN PRN aPTT less than 55 seconds Heparin Sodium (Porcine) 3,000 units 10/31/24 09:00 Heparin Sodium 5,000 Units/Ml Vial IV PUSH PRN PRN aPTT 55 - 70 seconds Hydrocortisone 1 applic 10/30/24 02:20 Hydrocortisone 1% 30 Gm Cream TOPICAL Q8H PRN FOR ITCHING Hydroxyzine Pamoate 25 mg 10/30/24 02:20 10/30/24 17:20 Hydroxyzine Pamoate 25 Mg Capsule PO 25 mg Q12H PRN Administration anxiety Ceftriaxone Sodium 1 gm in 50 mls @ 100 mls/hr 10/30/24 21:00 10/31/24 23:15 Rocephin 1 Gm/Ns 50 Ml IVPB Infused Q24H KALPESH Infusion Azithromycin 500 mg in 250 mls @ 250 mls/hr 10/30/24 22:00 10/31/24 23:15 Zithromax IVPB 250 mls/hr Q24H KALPESH Administration Dextrose 1,000 mls @ 100 mls/hr 10/30/24 02:33 Dextrose 5% 1,000 Ml IVPB PRN PRN Hypoglycemia Protocol Heparin Sodium/Dextrose 25,000 units in 250 mls @ 12 mls/hr 10/31/24 09:00 11/01/24 01:13 Heparin Sodium/D5w 100 Units/Ml IV CONT 1,200 units/hr .[id number] KALPESH 12 mls/hr Administration Protocol 1,200 UNITS/HR Insulin Aspart 4 - 8 units 10/30/24 08:00 11/01/24 08:38 Insulin Aspart (*Bkc) 100 Units/Ml SUB-Q Not Given TIDWM KALPESH Protocol Loratadine 10 mg 10/30/24 09:00 11/01/24 08:16 Loratadine 10 Mg Tablet PO 10 mg QAM KALPESH Administration Magnesium Hydroxide 30 ml 10/30/24 02:20 Magnesium Hydroxide Susp 30 Ml Udc PO QHS PRN Constipation Multi-Ingred Cream/Lotion/Oil/Oint 1 applic 10/30/24 09:00 10/31/24 18:04 Eucerin Cream 120 Gm Jar TOPICAL 1 applic BID KALPESH Administration Multivitamins Therapeutic 1 tablet 10/30/24 09:00 11/01/24 08:16 Multivitamins Therapeutic Tab (*Bkc) PO 1 tablet DAILY KALPESH Administration Pantoprazole Sodium 40 mg 10/30/24 09:00 11/01/24 08:16 Pantoprazole 40 Mg Tablet PO 40 mg Q12HR KALPESH Administration Potassium Chloride 20 meq 11/01/24 11:50 Potassium Chloride 20 Meq Er Tablet PO 11/01/24 11:51 ONCE ONE Prednisone 40 mg 10/31/24 12:35 11/01/24 08:16 Prednisone 20 Mg Tablet PO 40 mg DAILY@0800 KALPESH Administration Saccharomyces Boulardii 250 mg 10/30/24 09:00 11/01/24 08:14 Saccharomyces Boulardii 250 Mg Capsule PO 250 mg BID KALPESH Administration Sertraline HCl 100 mg 10/30/24 21:00 10/31/24 22:30 Sertraline Hcl 50 Mg Tablet PO 100 mg QHS KALPESH Administration Simvastatin 10 mg 10/30/24 21:00 10/31/24 22:30 Simvastatin 10 Mg Tablet PO 10 mg HS KALPESH Administration Sodium Bicarbonate 1,300 mg 10/30/24 09:00 11/01/24 08:14 Sodium Bicarbonate Tab 650 Mg Tablet PO 1,300 mg TID KALPESH Administration Tramadol HCl 50 mg 10/30/24 02:20 10/31/24 13:52 Tramadol Hcl (*Crx) 50 Mg Tablet PO 50 mg Q6H PRN Administration chronic pain 4-6 Trazodone HCl 75 mg 10/30/24 21:00 10/31/24 22:30 Trazodone Hcl 25 Mg Tablet PO 75 mg QHS KALPESH Administration Vitamin D 1,000 units 10/30/24 09:00 11/01/24 08:13 Cholecalciferol 1,000 Units Tablet PO 1,000 units DAILY KALPESH Administration Radiology Results: ITS Impressions Chest X-Ray 10/29/24 17:30 IMPRESSION: Left basilar atelectasis versus pneumonia. Left moderate pleural effusion. Chest CT 11/01/24 07:12 IMPRESSION: Prominent lingular and left lower lobe atelectasis and large left pleural effusion; malignancy is not excluded. Consider repeat CT thorax with IV contrast material following left thoracentesis Focal areas of mild right upper lobe infiltrate Right lower lobe infiltrate and atelectasis and small right pleural effusion Cardiomegaly T12-L1 prominent vertebral body fractures Subacute and/or old left rib fractures Labs Labs: Laboratory Results - last 24 hr 10/31/24 10/31/24 10/31/24 17:10 17:34 20:35 WBC RBC Hgb Hct MCV MCH MCHC RDW Plt Count MPV Immature Gran % (Auto) Neut % (Auto) Lymph % (Auto) Donley % (Auto) Eos % (Auto) Baso % (Auto) Lymph # (Auto) Donley # (Auto) Eos # (Auto) Baso # (Auto) Abs Immat Gran (auto) Absolute Neuts (auto) Absolute Nucleated RBC Nucleated RBC % APTT 87.5 H Sodium Potassium Chloride Carbon Dioxide Anion Gap BUN Creatinine Estim Creat Clear Calc Estimated GFR Glucose POC Capillary Glucose 205 H 252 H Calcium Phosphorus Magnesium Albumin 10/31/24 11/01/24 11/01/24 23:12 07:15 08:18 WBC 18.7 H RBC 3.06 L Hgb 8.5 L Hct 28.0 L MCV 91.5 MCH 27.8 MCHC 30.4 L RDW 14.6 H Plt Count 181 MPV 9.3 Immature Gran % (Auto) 1.4 H Neut % (Auto) 85.1 H Lymph % (Auto) 5.8 L Donley % (Auto) 7.6 Eos % (Auto) 0.0 Baso % (Auto) 0.1 L Lymph # (Auto) 1.08 Donley # (Auto) 1.4 H Eos # (Auto) 0.0 Baso # (Auto) 0.0 Abs Immat Gran (auto) 0.26 H Absolute Neuts (auto) 15.9 H Absolute Nucleated RBC 0.000 Nucleated RBC % 0.0 APTT 110.1 H 97.8 H Sodium 136 L Potassium 3.3 L Chloride 101 Carbon Dioxide 36 H Anion Gap -1 L BUN 53 H Creatinine 2.80 H Estim Creat Clear Calc 21 Estimated GFR 22 L Glucose 124 H POC Capillary Glucose 143 H Calcium 7.3 L Phosphorus 3.8 Magnesium 1.8 Albumin 2.4 L 11/01/24 11:54 WBC RBC Hgb Hct MCV MCH MCHC RDW Plt Count MPV Immature Gran % (Auto) Neut % (Auto) Lymph % (Auto) Donley % (Auto) Eos % (Auto) Baso % (Auto) Lymph # (Auto) Donley # (Auto) Eos # (Auto) Baso # (Auto) Abs Immat Gran (auto) Absolute Neuts (auto) Absolute Nucleated RBC Nucleated RBC % APTT Sodium Potassium Chloride Carbon Dioxide Anion Gap BUN Creatinine Estim Creat Clear Calc Estimated GFR Glucose POC Capillary Glucose 247 H Calcium Phosphorus Magnesium Albumin
[2024-11-01] MEDS: POTASSIUM CHLORIDE 20 MEQ ER TABLET PO (12:21)
[2024-11-01] MEDS: INSULIN ASPART (*BKC) 100 UNITS/ML SUB-Q ×2 (12:21→16:50)
[2024-11-01] MEDS: acetaZOLAMIDE SODIUM FOR INJ 500 MG VIAL 250 MG IV PUSH (12:21)
[2024-11-01] MEDS: EUCERIN CREAM 120 GM JAR 1 APPLIC TOPICAL ×2 (12:21→16:53)
[2024-11-01] MEDS: WATER, STERILE FOR INJECTION 10 ML VIAL XX (12:32)
[2024-11-01 13:17] LABS: Partial Thromboplastin Time 82.5 Seconds (22.3-36.8)
[2024-11-01 16:27] LABS: Glucose Point of Care 259 mg/dl (65-105)
--- NOTE | 2024-11-01 18:44 | P.PNIM_ITS ---
Progress Note: A&P Assessment and Plan (1) Acute on chronic respiratory failure with hypoxia and hypercapnia: Code(s): J96.21 - Acute and chronic respiratory failure with hypoxia; J96.22 - Acute and chronic respiratory failure with hypercapnia Status: Acute Assessment and Plan: Patient presents with SOB and left sided pleural effusion noted by outpatient CXR. ABG showing 7.24/68/93 on 3L. ABG worsened on 7L so placed on BiPAP. CXR showing showing left basilar atelectasis vs PNA and moderate pleural effusion. He tested positive for COVID (also positive in Sept). EKG showing AFib with controlled rate but no change from prior. BNP 7670 and PCT 0.2. Treated in the ED with Soul-Medrol, bronchodilators. Lasix IV once given. Rocephin and Azithro started. Also started on IV Bumex He has maintained his SpO2 on 3L since admission. Pulmonary consulted. Plan for thoracentesis. (2) COPD exacerbation: Code(s): J44.1 - Chronic obstructive pulmonary disease with (acute) exacerbation Status: Chronic Assessment and Plan: As above. Treated with IV steroids, bronchodilators and IV antibiotic Continue Trelegy. Change steroids to oral. (3) COVID: Code(s): U07.1 - COVID-19 Status: Acute Assessment and Plan: COVID positive here. CXR as above. Oxygen requirements better Continue supportive care (4) Elevated troponin: Code(s): R77.8 - Other specified abnormalities of plasma proteins Status: Acute Assessment and Plan: Troponin elevated at 0.24 but flat. Noted to be chronically elevated Likely due to demand ischemia rather than ACS or from chronic from renal failure. EKG noted and not showing any acute changes. (5) CKD (chronic kidney disease): Qualifiers: Chronic kidney disease stage: unspecified stage Qualified Code(s): N18.9 - Chronic kidney disease, unspecified Code(s): N18.9 - Chronic kidney disease, unspecified Status: Acute Assessment and Plan: Cr noted and stable at baseline. Tolerating the diuresis. Monitor (6) Pleural effusion: Code(s): J90 - Pleural effusion, not elsewhere classified Status: Acute Assessment and Plan: Noted by CXR. Transitioned to Heparin for thoracentesis Appreciate Pulm input. Plan Code status full code DVT prophylaxis - Eliquis held. Heparin started. Subjective Date/time seen: 11/01/24 18:44 Interval history: 78yo male with COPD, chronic resp failure on 2.5L, asthma, CHF and anemia here for shortness of breath. Still feels SOB. No CP. No n/v. Exam Narrative: AF 98.4 176/80 74 16 99% 3L Gen - NARD sitting up in bed Chest - scattered rhonchi with decreased BS in the left base CV - irregularly irregular Abd - Soft, ND, Positive BS. 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 No edema Psych - Nml mood and affect Skin - skin dry and flaky c/w ichthyosis Objective Data Vital Signs Vital Signs: Vital Signs - 24 hr 10/31/24 19:40 10/31/24 20:00 10/31/24 22:00 Temperature 98.4 F Pulse Rate 73 84 71 Respiratory Rate 18 Blood Pressure 167/66 H Pulse Oximetry 96 Oxygen Delivery Oxygen Flow Rate Fraction of Inspired Oxygen 10/31/24 22:10 10/31/24 23:24 11/01/24 00:00 Temperature 98.9 F Pulse Rate 86 89 Respiratory Rate 24 H Blood Pressure 174/73 H Pulse Oximetry 95 96 Oxygen Delivery Nasal Cannula Oxygen Flow Rate 2 Fraction of Inspired Oxygen 11/01/24 00:06 11/01/24 00:09 11/01/24 00:20 Temperature Pulse Rate 66 Respiratory Rate 22 H Blood Pressure Pulse Oximetry 95 96 Oxygen Delivery Mechanical Ventilation Nasal Cannula Oxygen Flow Rate 3 2 Fraction of Inspired Oxygen 11/01/24 02:00 11/01/24 03:56 11/01/24 04:00 Temperature 98.2 F Pulse Rate 76 66 77 Respiratory Rate 20 Blood Pressure 156/74 H Pulse Oximetry 97 Oxygen Delivery Oxygen Flow Rate Fraction of Inspired Oxygen 11/01/24 04:10 11/01/24 06:00 11/01/24 07:49 Temperature Pulse Rate 66 Respiratory Rate Blood Pressure Pulse Oximetry 94 94 Oxygen Delivery Nasal Cannula Mechanical Ventilation Oxygen Flow Rate 2 2 Fraction of Inspired Oxygen 11/01/24 07:49 11/01/24 08:00 11/01/24 08:00 Temperature Pulse Rate 76 82 76 Respiratory Rate 20 16 Blood Pressure Pulse Oximetry 97 Oxygen Delivery Nasal Cannula Oxygen Flow Rate 2 Fraction of Inspired Oxygen 11/01/24 08:01 11/01/24 08:36 11/01/24 10:00 Temperature 97.9 F Pulse Rate 84 82 80 Respiratory Rate 20 16 Blood Pressure 139/90 Pulse Oximetry 97 Oxygen Delivery Oxygen Flow Rate Fraction of Inspired Oxygen 11/01/24 12:00 11/01/24 12:00 11/01/24 12:31 Temperature 98.1 F Pulse Rate 77 77 77 Respiratory Rate 24 H 24 H Blood Pressure 168/72 H Pulse Oximetry 98 98 Oxygen Delivery Nasal Cannula Oxygen Flow Rate 2 Fraction of Inspired Oxygen 11/01/24 14:00 11/01/24 16:00 11/01/24 16:00 Temperature Pulse Rate 72 74 73 Respiratory Rate 16 Blood Pressure Pulse Oximetry 99 Oxygen Delivery Nasal Cannula Oxygen Flow Rate 3 Fraction of Inspired Oxygen 11/01/24 17:18 11/01/24 18:00 Temperature 98.4 F Pulse Rate 73 74 Respiratory Rate 16 Blood Pressure 176/80 H Pulse Oximetry 99 Oxygen Delivery Oxygen Flow Rate Fraction of Inspired Oxygen Intake/Output Intake/Output: Intake & Output 10/29/24 10/30/24 10/31/24 11/01/24 23:59 23:59 23:59 23:59 Intake Total 350 2560 1228 662.7 Output Total 2400 1700 Balance 350 160 -472 662.7 Meds/Results Medications: Active Medications Generic Name Dose Route Start Last Admin Trade Name Freq PRN Reason Stop Dose Admin Acetaminophen 650 mg 10/30/24 02:25 Acetaminophen 325 Mg Tablet PO Q6H PRN Pain or Fever 1-3 Albuterol 2.5 mg 10/30/24 17:00 11/01/24 07:46 Albuterol Sulfate Neb 2.5 Mg/3 Ml Inh INHALATION 2.5 mg Q4HRT PRN Administration Shortness Of Breath Or Wheezing Ascorbic Acid 500 mg 10/30/24 09:00 11/01/24 16:49 Ascorbic Acid 500 Mg Tablet PO 500 mg BID KALPESH Administration Aspirin 325 mg 10/30/24 09:00 11/01/24 08:15 Aspirin 325 Mg Enteric Tablet PO 325 mg QAM KALPESH Administration Baclofen 5 mg 10/30/24 02:25 Baclofen 5 Mg Tablet PO Q8H PRN MUSCLE SPASM Benzonatate 100 mg 10/30/24 02:25 Benzonatate 100 Mg Capsule PO TID PRN Cough Bisacodyl 10 mg 10/30/24 02:20 Bisacodyl 10 Mg Suppository RECTAL DAILY PRN SEE INSTRUCTIONS Bumetanide 1 mg 10/30/24 09:00 11/01/24 16:48 Bumetanide Inj 1 Mg/4 Ml Vial IV PUSH 1 mg BID KALPESH Administration Cyanocobalamin 1,000 mcg 10/30/24 09:00 11/01/24 08:19 Cyanocobalamin 1,000 Mcg Tablet PO 1,000 mcg DAILY KALPESH Administration Dextrose 12.5 gm 10/30/24 02:33 Dextrose 50% 25 Gm/50 Ml Syringe IV PUSH PRN PRN Hypoglycemia Protocol Epoetin Aaron-epbx 10,000 units 10/30/24 09:00 10/30/24 09:16 Epoetin Aaron-Epbx 10,000 Units/Ml Vial SUB-Q 10,000 units MoWeFr KALPESH Administration Fluticasone/Umeclidinium/Vilanterol 1 puff 10/30/24 08:00 11/01/24 07:47 Fluticasone/Umeclidin/Vilanter 100-62.5-25 Mcg Ellipta INHALATION 1 puff DAILYRT KALPESH Administration Folic Acid 1 mg 10/30/24 09:00 11/01/24 08:16 Folic Acid 1 Mg Tablet PO 1 mg DAILY KALPESH Administration Gabapentin 300 mg 10/30/24 09:00 11/01/24 08:15 Gabapentin 300 Mg Capsule PO 300 mg Q12HR KALPESH Administration Glucagon 1 mg 10/30/24 02:33 Glucagon For Inj 1 Mg Vial IM PRN PRN Hypoglycemia Protocol Glucose 15 gm 10/30/24 02:33 Glucose Oral Gel 15 Gm Of Glucse In 37.5 Gm Tube PO PRN PRN Hypoglycemia Protocol Guaifenesin 1,200 mg 11/01/24 21:00 Guaifenesin 12 Hr 600 Mg Tabcr PO Q12HR KALPESH Heparin Sodium (Porcine) 6,000 units 10/31/24 09:00 Heparin Sodium 5,000 Units/Ml Vial IV PUSH PRN PRN aPTT less than 55 seconds Heparin Sodium (Porcine) 3,000 units 10/31/24 09:00 Heparin Sodium 5,000 Units/Ml Vial IV PUSH PRN PRN aPTT 55 - 70 seconds Hydrocortisone 1 applic 10/30/24 02:20 Hydrocortisone 1% 30 Gm Cream TOPICAL Q8H PRN FOR ITCHING Hydroxyzine Pamoate 25 mg 10/30/24 02:20 10/30/24 17:20 Hydroxyzine Pamoate 25 Mg Capsule PO 25 mg Q12H PRN Administration anxiety Ceftriaxone Sodium 1 gm in 50 mls @ 100 mls/hr 10/30/24 21:00 10/31/24 23:15 Rocephin 1 Gm/Ns 50 Ml IVPB Infused Q24H KALPESH Infusion Azithromycin 500 mg in 250 mls @ 250 mls/hr 10/30/24 22:00 10/31/24 23:15 Zithromax IVPB 250 mls/hr Q24H KALPESH Administration Dextrose 1,000 mls @ 100 mls/hr 10/30/24 02:33 Dextrose 5% 1,000 Ml IVPB PRN PRN Hypoglycemia Protocol Heparin Sodium/Dextrose 25,000 units in 250 mls @ 12 mls/hr 10/31/24 09:00 11/01/24 01:13 Heparin Sodium/D5w 100 Units/Ml IV CONT 1,200 units/hr .[id number] KALPESH 12 mls/hr Administration Protocol 1,200 UNITS/HR Insulin Aspart 4 - 8 units 10/30/24 08:00 11/01/24 16:50 Insulin Aspart (*Bkc) 100 Units/Ml SUB-Q 4 units TIDWM KALPESH Administration Protocol Loratadine 10 mg 10/30/24 09:00 11/01/24 08:16 Loratadine 10 Mg Tablet PO 10 mg QAM KALPESH Administration Magnesium Hydroxide 30 ml 10/30/24 02:20 Magnesium Hydroxide Susp 30 Ml Udc PO QHS PRN Constipation Multi-Ingred Cream/Lotion/Oil/Oint 1 applic 10/30/24 09:00 11/01/24 16:53 Eucerin Cream 120 Gm Jar TOPICAL 1 applic BID KALPESH Administration Multivitamins Therapeutic 1 tablet 10/30/24 09:00 11/01/24 08:16 Multivitamins Therapeutic Tab (*Bkc) PO 1 tablet DAILY KALPESH Administration Pantoprazole Sodium 40 mg 10/30/24 09:00 11/01/24 08:16 Pantoprazole 40 Mg Tablet PO 40 mg Q12HR KALPESH Administration Prednisone 40 mg 10/31/24 12:35 11/01/24 08:16 Prednisone 20 Mg Tablet PO 40 mg DAILY@0800 KALPESH Administration Saccharomyces Boulardii 250 mg 10/30/24 09:00 11/01/24 16:49 Saccharomyces Boulardii 250 Mg Capsule PO 250 mg BID KALPESH Administration Sertraline HCl 100 mg 10/30/24 21:00 10/31/24 22:30 Sertraline Hcl 50 Mg Tablet PO 100 mg QHS KALPESH Administration Simvastatin 10 mg 10/30/24 21:00 10/31/24 22:30 Simvastatin 10 Mg Tablet PO 10 mg HS KALPESH Administration Sodium Bicarbonate 1,300 mg 10/30/24 09:00 11/01/24 08:14 Sodium Bicarbonate Tab 650 Mg Tablet PO 1,300 mg TID KALPESH Administration Tramadol HCl 50 mg 10/30/24 02:20 10/31/24 13:52 Tramadol Hcl (*Crx) 50 Mg Tablet PO 50 mg Q6H PRN Administration chronic pain 4-6 Trazodone HCl 75 mg 10/30/24 21:00 10/31/24 22:30 Trazodone Hcl 25 Mg Tablet PO 75 mg QHS KALPESH Administration Vitamin D 1,000 units 10/30/24 09:00 11/01/24 08:13 Cholecalciferol 1,000 Units Tablet PO 1,000 units DAILY KALPESH Administration Radiology Results: ITS Impressions Chest X-Ray 10/29/24 17:30 IMPRESSION: Left basilar atelectasis versus pneumonia. Left moderate pleural effusion. Chest CT 11/01/24 07:12 IMPRESSION: Prominent lingular and left lower lobe atelectasis and large left pleural effusion; malignancy is not excluded. Consider repeat CT thorax with IV contrast material following left thoracentesis Focal areas of mild right upper lobe infiltrate Right lower lobe infiltrate and atelectasis and small right pleural effusion Cardiomegaly T12-L1 prominent vertebral body fractures Subacute and/or old left rib fractures Labs Labs: Laboratory Results - last 24 hr 10/31/24 10/31/24 11/01/24 20:35 23:12 07:15 WBC 18.7 H RBC 3.06 L Hgb 8.5 L Hct 28.0 L MCV 91.5 MCH 27.8 MCHC 30.4 L RDW 14.6 H Plt Count 181 MPV 9.3 Immature Gran % (Auto) 1.4 H Neut % (Auto) 85.1 H Lymph % (Auto) 5.8 L [place] % (Auto) 7.6 Eos % (Auto) 0.0 Baso % (Auto) 0.1 L Lymph # (Auto) 1.08 [place] # (Auto) 1.4 H Eos # (Auto) 0.0 Baso # (Auto) 0.0 Abs Immat Gran (auto) 0.26 H Absolute Neuts (auto) 15.9 H Absolute Nucleated RBC 0.000 Nucleated RBC % 0.0 APTT 110.1 H 97.8 H Sodium 136 L Potassium 3.3 L Chloride 101 Carbon Dioxide 36 H Anion Gap -1 L BUN 53 H Creatinine 2.80 H Estim Creat Clear Calc 21 Estimated GFR 22 L Glucose 124 H POC Capillary Glucose 252 H Calcium 7.3 L Phosphorus 3.8 Magnesium 1.8 Albumin 2.4 L 11/01/24 11/01/24 11/01/24 08:18 11:54 12:53 WBC RBC Hgb Hct MCV MCH MCHC RDW Plt Count MPV Immature Gran % (Auto) Neut % (Auto) Lymph % (Auto) [place] % (Auto) Eos % (Auto) Baso % (Auto) Lymph # (Auto) [place] # (Auto) Eos # (Auto) Baso # (Auto) Abs Immat Gran (auto) Absolute Neuts (auto) Absolute Nucleated RBC Nucleated RBC % APTT 82.5 H Sodium Potassium Chloride Carbon Dioxide Anion Gap BUN Creatinine Estim Creat Clear Calc Estimated GFR Glucose POC Capillary Glucose 143 H 247 H Calcium Phosphorus Magnesium Albumin 11/01/24 16:20 WBC RBC Hgb Hct MCV MCH MCHC RDW Plt Count MPV Immature Gran % (Auto) Neut % (Auto) Lymph % (Auto) [place] % (Auto) Eos % (Auto) Baso % (Auto) Lymph # (Auto) [place] # (Auto) Eos # (Auto) Baso # (Auto) Abs Immat Gran (auto) Absolute Neuts (auto) Absolute Nucleated RBC Nucleated RBC % APTT Sodium Potassium Chloride Carbon Dioxide Anion Gap BUN Creatinine Estim Creat Clear Calc Estimated GFR Glucose POC Capillary Glucose 259 H Calcium Phosphorus Magnesium Albumin
[2024-11-01 20:53] LABS: Glucose Point of Care 215 mg/dl (65-105)
[2024-11-01] MEDS: guaiFENesin 12 HR 600 MG TABCR 1200 MG PO (21:54)
[2024-11-01] MEDS: AZITHROMYCIN 250 MG TABLET PO (21:54)
[2024-11-01] MEDS: SERTRALINE HCL 50 MG TABLET 100 MG PO (21:55)
[2024-11-01] MEDS: traZODone HCL 25 MG TABLET 75 MG PO (21:55)
[2024-11-01] MEDS: SIMVASTATIN 10 MG TABLET PO (21:56)
[2024-11-02] VITALS (27 sets, daily range): BP systolic 140–180; BP diastolic 56–95; PULSE 53–93; RESP 18–24; TEMP 36.4–36.8; O2SAT 92–98
--- NOTE | 2024-11-02 03:15 | PC.NURSE ---
Patient had a run of non sustained Vtach, 8 beat, at 0043. Patient had a previous 11 beat run on 11/01 at 0535. A strip was printed and placed in chart
[2024-11-02 05:06] LABS: Basophils Absolute Auto 0.1 K/mm3 (0.0-0.1); Basophils Percent Auto 0.3 % (0.2-1.2); Eosinophils Absolute Auto 0.1 K/mm3 (0-0.3); Eosinophils Percent Auto 0.3 % (0-4.4); Hematocrit 33.3 % (42.0-52.0); Hemoglobin 9.8 g/dL (14.0-18.0); Immature Granulocyte Absolute 0.51 K/mm3 (0.00-0.031); Immature Granulocyte Percent A 2.2 % (0-0.5); Lymphocytes Absolute Auto 2.66 K/mm3 (0.9-3.2); Lymphocytes Percent Auto 11.3 % (18.3-44.2); Mean Corpuscular HGB Conc 29.4 g/dl (32-36); Mean Corpuscular Hemoglobin 27.4 pg (26-34); Mean Platelet Volume 9.5 fl (7.4-10.4); Monocytes Absolute Auto 1.7 K/mm3 (0.1-0.6); Monocytes Percent Auto 7.3 % (2.6-8.5); Neutrophils Absolute Auto 18.4 K/mm3 (1.3-6.7); Neutrophils Percent Auto 78.6 % (45.5-73.1); Nucleated Red Blood Cells Perc 0.1 % (0.0-0.2); Platelet Count Result 267 k/mm3 (150-375); Red Blood Count 3.58 M/mm3 (4.6-6.20); Red Cell Distribution Width 14.3 % (11.5-14.5); White Blood Count 23.4 K/mm3 (4.5-10.0)
[2024-11-02] MEDS: ALBUTEROL SULFATE NEB 2.5 MG/3 ML INH INHALATION ×3 (05:15→13:46)
[2024-11-02 05:18] LABS: Alanine Aminotransferase 19 U/L (6-50); Alkaline Phosphatase 100 U/L (38-126); Aspartate Amino Transferase 36 U/L (17-59); Bilirubin,Total 0.5 mg/dL (0.2-1.3); Lactate Dehydrogenase 245 U/L (120-246)
[2024-11-02 05:20] LABS: Albumin Level 3.1 g/dL (3.5-5.1); Anion Gap -2 mmol/L (4-12); Blood Urea Nitrogen 47 mg/dL (9-20); Calcium 7.8 mg/dL (8.4-10.2); Carbon Dioxide 34 mmol/L (22-30); Chloride 104 mmol/L (98-107); Estimated CRCL calculation 20 ml/min; Estimated Glomerular Filt Rate 21; Glucose 103 mg/dL (65-110); Magnesium 1.9 mg/dL (1.6-2.3); Phosphorus 3.8 mg/dL (2.5-4.5); Potassium 3.8 mmol/L (3.4-5.0); Sodium 136 mmol/L (137-145)
[2024-11-02 05:33] LABS: Platelet Estimate Adequate (Adequate)
[2024-11-02 05:34] LABS: Anisocytosis 1+; Hypochromasia 1+; Ovalocytes 1+; Schistocytes None Seen
--- NOTE | 2024-11-02 05:58 | PC.NURSE ---
Patient had a 11 beat of non-sustained Vtach at 0402 and 6 beats at 0404. Patient was asleep and unaware. Strips were printed and placed in chart.
[2024-11-02 07:32] LABS: Glucose Point of Care 119 mg/dl (65-105)
[2024-11-02] MEDS: FLUTICASONE/UMECLIDIN/VILANTER 100-62.5-25 MCG ELLIPTA 1 PUFF INHALATION (08:45)
[2024-11-02 09:30] LABS: Partial Thromboplastin Time 56.3 Seconds (22.3-36.8)
[2024-11-02] MEDS: BUMETANIDE INJ 1 MG/4 ML VIAL IV PUSH ×2 (10:00→17:12)
[2024-11-02] MEDS: CHOLECALCIFEROL 1,000 UNITS TABLET 1000 UNITS PO (10:00)
[2024-11-02] MEDS: ASCORBIC ACID 500 MG TABLET PO ×2 (10:01→17:12)
[2024-11-02] MEDS: FOLIC ACID 1 MG TABLET PO (10:01)
[2024-11-02] MEDS: SACCHAROMYCES BOULARDII 250 MG CAPSULE PO ×2 (10:02→17:11)
[2024-11-02] MEDS: ASPIRIN 325 MG ENTERIC TABLET PO (10:02)
[2024-11-02] MEDS: GABAPENTIN 300 MG CAPSULE PO ×2 (10:02→21:50)
[2024-11-02] MEDS: guaiFENesin 12 HR 600 MG TABCR 1200 MG PO ×2 (10:03→21:51)
[2024-11-02] MEDS: CYANOCOBALAMIN 1,000 MCG TABLET 1000 MCG PO (10:03)
[2024-11-02] MEDS: MULTIVITAMINS THERAPEUTIC TAB (*BKC) 1 TABLET PO (10:15)
[2024-11-02] MEDS: PANTOPRAZOLE 40 MG TABLET PO ×2 (10:15→21:51)
[2024-11-02] MEDS: predniSONE 20 MG TABLET 40 MG PO (10:15)
[2024-11-02] MEDS: LORATADINE 10 MG TABLET PO (10:16)
[2024-11-02 10:57] LABS: NT Pro B Type Natriuretic Pept 16200 pg/mL (19.9-100)
[2024-11-02 12:22] LABS: Glucose Point of Care 110 mg/dl (65-105)
--- NOTE | 2024-11-02 13:03 | P.PNPL_ITS ---
Progress Note: A&P Assessment and Plan (1) Acute exacerbation of chronic obstructive pulmonary disease: Code(s): J44.1 - Chronic obstructive pulmonary disease with (acute) exacerbation Status: Acute Assessment and Plan: 58 pack year tobacco use, current smoker, In 2014 he had an FEV1 1.58 L, 49%, and has smoked until recently. This is severe obstruction. 10/31/24: Overall the patient tells me he is feeling a little bit better. He still has increased shortness of breath, his cough is unchanged and he has no wheezing. He is afebrile. White blood cell count 21.3, creatinine 3.0, saturations on 3 L nasal cannula is 94%. currently patient has no wheezing. Plan: Will change patient's Solu-Medrol 40 q.6 to prednisone 40 a day, day 3 of steroids. Will continue patient's trilogy inhaler 100 and guaifenesin 600 mg p.o. b.i.d.. I will check an alpha 1 anti trypsin genotype in the morning. 11/01/2024: Overall the patient states he is a little bit better. He still complains of some rough breathing. His cough is better. His phlegm is unchanged. He had a temperature of 37.7?. Currently is on 2 L with saturations 98%. White blood cell count 18.7, creatinine 2.80, BUN 53 Plan: continue prednisone 40 mg a day, day 4 of steroids, no wheezing and will continue trilogy inhaler 100 and increase guaifenesin to 1200 mg p.o. b.i.d. Once patient is volume status is corrected and thoracentesis is performed will re-evaluate for hypercarbic respiratory failure. 11/02/2024: Overall the patient tells me today he is about the same. He still has shortness of breath and dyspnea on exertion. He has minimal cough which is unchanged. He is afebrile, when I enter the room he is on 1 L nasal cannula saturations 98%. White blood cell count is 23.4. Plan: No wheezing. will discontinue prednisone after today, day 5 of steroids. Continue trilogy inhaler 100, guaifenesin 1200 mg p.o. b.i.d.. Continue ceftriaxone and azithromycin, both day 5. Discussed with Dr. Mclain, will follow with you (2) Pleural effusion: Code(s): J90 - Pleural effusion, not elsewhere classified Status: Acute Assessment and Plan: 10/31/24: Patient with evidence of fluid overload and a left pleural effusion. Eliquis is on hold. Plan: Patient will have a thoracentesis once this is deemed safe after holding his Eliquis. Last dose 10/30/2023 at 9:04 a.m. Currently on IV heparin. agree with as aggressive diuresis as possible and as tolerated by his cardiac and renal systems. Creatinine 3.0. Currently on Bumex 1 mg IV b.i.d. with net diuresis since admission 440 mL. 11/01/24: patient is on Bumex 1 mg IV b.i.d. with diuresis of 472 mL yesterday. he is positive 700 mils since admission. His weight today is 74.5 with an admission weight of 77.2. CT scan of the chest on 10/31/2024 demonstrated large left pleural effusion with collapse of the lingula and left lower lobe. Unable to adequately assess lymphadenopathy and or underlying lung mass. Plan: Agree with as aggressive diuresis as tolerated by his cardiac and renal systems per Nephrology and hospitalist teams. Patient is scheduled to have a thoracentesis hopefully on 11/02/2024. 11/02/24: creatinine is 2.9, BUN is 47. Yesterday he was 60 mL positive, net di uresis since admission 1.6 L, weight has decreased from 77.2 on admission to 72. BNP continues to worsen from 10,900 on 10/31/2024 216 1200 today. Chest x- ray with a large left pleural effusion and pulmonary edema. Plan: I spoke with his bedside nurse and the patient is scheduled for thoracentesis later today at 2:00 p.m.. Attempting to diurese the patient is with Bumex 1 mg IV b.i.d. with minimal success due to chronic renal insufficiency. Diuresis per Nephrology and hospitalist teams. (3) COVID-19: Code(s): U07.1 - COVID-19 Status: Acute Assessment and Plan: Patient tested positive for COVID on 10/29/2024. Of note the patient also tested positive on 07/27/2024 and he received no treatment at that time. 10/31/24: Overall the patient tells me he is feeling a little bit better. He still has increased shortness of breath, his cough is unchanged and he has no wheezing. He is afebrile. White blood cell count 21.3, creatinine 3.0, saturations on 3 L nasal cannula is 94%. Plan: Overall patient has improved slightly, oxygenation is stable without any active COVID treatment and agree to hold COVID treatment at this time. Will follow clinically. 11/01/24: he continues to feel little bit better each day. Oxygenation has remained stable on 2 L nasal cannula saturations 98%. CT scan of the chest on 10/31/2023 showed a large left pleural effusion, mild area of infiltrate in the right upper lobe without evidence of diffuse ground-glass infiltrates from COVID. Plan: Continue supportive care at this time. 11/02/2024: Patient remains clinically stable. Will continue supportive care at this time. Subjective Date/time seen: 11/02/24 13:03 Interval history: Oct 30, 2024 14:45 ICU 8 IMU as an overflow patient. He is not an ICU patient. 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 Chronic atrial fib on Eliquis. He has extr nanda poor hearing and absent memory with alcohol abuse. He was smoking until a few weeks ago. The history was difficult to obtain. He lives at [facility], a jail. He was admitted October 12 through the for severe anemia, hemoglobin 6.5, received 2 units of blood, unremarkable EGD and colonoscopy. He was readmitted October 29 with increasing shortness of breath. His chest x-ray shows large left pleural effusion with compressive atelectasis. See the image below. He has worsening of his hypercapnic hypoxemic respiratory failure. Dr Chicas' note from September states that the patient had a fall on his right side and broke ribs. This effusion is on the left side. He was (+) for SARS-CoV-2 on Oct 29. Had COVID in Jun 2024, as well. In the emergency department ceftriaxone and azithromycin IV were ordered, he received each of these. He says that he uses inhalers when he is at [facility]. He uses oxygen around the clock. He has a daily cough with sputum production, some days sputum is clear and other days sputum is discolored. 10/31/24: Overall the patient tells me he is feeling a little bit better. He still has increased shortness of breath, his cough is unchanged and he has no wheezing. He is afebrile. White blood cell count 21.3, creatinine 3.0, BUN 51, saturations on 3 L nasal cannula is 94%. Cumulative diuresis since admission is 440 mL. 11/01/2024: Overall the patient states he is a little bit better. He still complains of some rough breathing. His cough is better. His phlegm is unchanged. He had a temperature of 37.7?. Currently is on 2 L with saturations 98%. White blood cell count 18.7, creatinine 2.80, BUN 53. 11/02/2024: Overall the patient tells me today he is about the same. He still has shortness of breath and dyspnea on exertion. He has minimal cough which is unchanged. He is afebrile, when I enter the room he is on 1 L nasal cannula saturations 98%. White blood cell count is 23.4, creatinine is 2.9, BUN is 47. Yesterday he was 60 mL positive, net diuresis since admission 1.6 L, weight has decreased from 77.2 on admission to 72. BNP continues to worsen from 10,900 on 10/31/2024 216 1200 today. Chest x-ray with a large left pleural effusion and pulmonary edema. DATA * white blood cell count October 30 12.9, hemoglobin 10.8, hematocrit 37.2, platelet 216 k. * 10/29/24 CXR - moderate L pleural effusion & atelectasis. Right side is clear. * 07/26/2015 PFT -moderately severe obstructive ventilatory impairment with good response to bronchodilator, air trapping, normal diffusion 07/26/15 after bronchodilator FVC 2.90 L, 64% 3.31 L, 70% +14 FEV1 1.58 L, 49% 1.68 L, 53%, +7 FEV1/FVC 54% 51% QKB44-19% TLC 7.63 L, 109% RV 4.63 L, 175% ERV RV/TLC DLCO 19.4, 78 DLCO/VA 4.75, 12.9 * ABG Oct 29 Oct 29 Oct 30 pH 7.23 7.22 7.36 pCO2 67 70 46 pO2 93 79 91 HCO3 28 31 23 sat O2 delivery O2 3 L 7 L 32% rate IPAP 18 EPAP 8 * 07/30/2024 KEITH 1:40, cytoplasmic pattern, negative ANCA, negative [id number] DNA. 02/2022 echo ; Technically difficult study with limited views. 2. Left ventricular chamber dimension is normal. 3. Left ventricular systolic function is hyperdynamic, estimated at >70%. 4. There is mildly increased left ventricular wall thickness. 5. Left atrial chamber dimension is moderately enlarged. 6. Right atrial chamber dimension is moderately enlarged. 7. There is trace tricuspid valve regurgitation. 8. Moderate pulmonary hypertension, estimated pulmonary arterial systolic pressure is 49 mmHg Review of Systems Review of Systems: All systems reviewed & are unremarkable except as noted in HPI and below Constitutional: Constitutional: Reports no additional constitutional complaints Eyes: Eyes: Reports no additional eye complaints ENT: Reports system reviewed and no additional complaints, except as documented Cardiovascular: Cardiovascular: Reports no additional cardiovascular complaints Respiratory: Respiratory: Reports no additional respiratory complaints Gastrointestinal: Gastrointestinal: Reports no additional gastrointestinal complaints Musculoskeletal: Musculoskeletal: Reports no additional musculoskeletal complaints Neurologic: Reports system reviewed and no additional complaints, except as documented Psychiatric: Psychiatric: Reports no additional psychiatric complaints Endocrine: Endocrine: Reports no additional endocrine complaints Hematologic/Lymphatic: Hematologic/Lymphatic: Reports no additional hematologic/lymphatic complaints Allergic/Immunologic: Allergic/Immunologic: Reports no additional allergic/immunologic complaints Exam Const: General: cooperative, healthy appearing and comfortable Orientation/consciousness: oriented to person, oriented to place and oriented to time HENMT: Head: normal to inspection Ears: hearing grossly normal bilaterally Eyes: General: appearance normal, both eyes and all related structures Neck: Neck: normal visual inspection Chest: Chest palpation & inspection: normal inspection of the chest Resp: Effort & Inspection: normal respiratory effort and able to speak in complete sentences Auscultation: no crackles, no rales, no rhonchi, no wheezes and diminished lung sounds Other: left base Cardio: Jugular venous distension: no JVD GI: Inspection: normal to inspection Skin: General skin exam: normal color Neuro: General: oriented to person, oriented to place and oriented to time Extrem: General: normal to inspection Other: Left BKA Psych: Appearance: grossly normal Objective Data Vital Signs Vital Signs: Vital Signs - 24 hr 11/01/24 14:00 11/01/24 16:00 11/01/24 16:00 Temperature Pulse Rate 72 74 73 Respiratory Rate 16 Blood Pressure Pulse Oximetry 99 Oxygen Delivery Nasal Cannula Oxygen Flow Rate 3 Fraction of Inspired Oxygen 28 11/01/24 17:18 11/01/24 18:00 11/01/24 20:00 Temperature 36.9 C Pulse Rate 73 74 77 Respiratory Rate 16 Blood Pressure 176/80 H Pulse Oximetry 99 Oxygen Delivery Oxygen Flow Rate Fraction of Inspired Oxygen 11/01/24 20:44 11/01/24 21:30 11/01/24 21:31 Temperature 36.7 C Pulse Rate 74 78 Respiratory Rate 22 H 20 Blood Pressure 171/92 H Pulse Oximetry 94 97 Oxygen Delivery Nasal Cannula Oxygen Flow Rate 2 Fraction of Inspired Oxygen 11/01/24 21:38 11/01/24 21:45 11/01/24 22:00 Temperature Pulse Rate 79 82 Respiratory Rate 20 Blood Pressure Pulse Oximetry 97 Oxygen Delivery Nasal Cannula Oxygen Flow Rate 2 Fraction of Inspired Oxygen 11/02/24 00:00 11/02/24 00:10 11/02/24 00:20 Temperature 36.4 C L Pulse Rate 72 53 L Respiratory Rate 20 Blood Pressure 180/88 H Pulse Oximetry 97 97 Oxygen Delivery Nasal Cannula Oxygen Flow Rate 2 Fraction of Inspired Oxygen 11/02/24 01:30 11/02/24 02:00 11/02/24 04:00 Temperature Pulse Rate 69 62 Respiratory Rate Blood Pressure 157/93 H Pulse Oximetry Oxygen Delivery Oxygen Flow Rate Fraction of Inspired Oxygen 11/02/24 04:30 11/02/24 04:58 11/02/24 05:16 Temperature 36.7 C Pulse Rate 56 L 77 Respiratory Rate 24 H 20 Blood Pressure 166/95 H Pulse Oximetry 96 92 Oxygen Delivery Nasal Cannula Oxygen Flow Rate 2 Fraction of Inspired Oxygen 11/02/24 06:00 11/02/24 07:05 11/02/24 08:46 Temperature 36.7 C Pulse Rate 69 75 Respiratory Rate 20 Blood Pressure 140/65 Pulse Oximetry 97 95 Oxygen Delivery Nasal Cannula Oxygen Flow Rate 2 Fraction of Inspired Oxygen 11/02/24 08:46 11/02/24 09:02 11/02/24 11:26 Temperature 36.4 C L Pulse Rate 71 73 69 Respiratory Rate 20 20 20 Blood Pressure 159/70 H Pulse Oximetry 98 Oxygen Delivery Oxygen Flow Rate Fraction of Inspired Oxygen Intake/Output Intake/Output: Intake & Output 10/30/24 10/31/24 11/01/24 11/02/24 23:59 23:59 23:59 23:59 Intake Total 2560 1228 2162.7 350 Output Total 2400 1700 2100 1950 Balance 160 -472 62.7 -1600 Meds/Results Medications: Active Medications Generic Name Dose Route Start Last Admin Trade Name Freq PRN Reason Stop Dose Admin Acetaminophen 650 mg 10/30/24 02:25 Acetaminophen 325 Mg Tablet PO Q6H PRN Pain or Fever 1-3 Albuterol 2.5 mg 10/30/24 17:00 11/02/24 08:45 Albuterol Sulfate Neb 2.5 Mg/3 Ml Inh INHALATION 2.5 mg Q4HRT PRN Administration Shortness Of Breath Or Wheezing Ascorbic Acid 500 mg 10/30/24 09:00 11/02/24 10:01 Ascorbic Acid 500 Mg Tablet PO 500 mg BID KALPESH Administration Aspirin 325 mg 10/30/24 09:00 11/02/24 10:02 Aspirin 325 Mg Enteric Tablet PO 325 mg QAM KALPESH Administration Azithromycin 250 mg 11/01/24 21:00 11/01/24 21:54 Azithromycin 250 Mg Tablet PO 11/02/24 21:01 250 mg HS KALPESH Administration Baclofen 5 mg 10/30/24 02:25 Baclofen 5 Mg Tablet PO Q8H PRN MUSCLE SPASM Benzonatate 100 mg 10/30/24 02:25 Benzonatate 100 Mg Capsule PO TID PRN Cough Bisacodyl 10 mg 10/30/24 02:20 Bisacodyl 10 Mg Suppository RECTAL DAILY PRN SEE INSTRUCTIONS Bumetanide 1 mg 10/30/24 09:00 11/02/24 10:00 Bumetanide Inj 1 Mg/4 Ml Vial IV PUSH 1 mg BID KALPESH Administration Cyanocobalamin 1,000 mcg 10/30/24 09:00 11/02/24 10:03 Cyanocobalamin 1,000 Mcg Tablet PO 1,000 mcg DAILY KALPESH Administration Dextrose 12.5 gm 10/30/24 02:33 Dextrose 50% 25 Gm/50 Ml Syringe IV PUSH PRN PRN Hypoglycemia Protocol Epoetin Aaron-epbx 10,000 units 11/02/24 09:00 Epoetin Aaron-Epbx 10,000 Units/Ml Vial SUB-Q MoWeFr@0900 KALPESH Fluticasone/Umeclidinium/Vilanterol 1 puff 10/30/24 08:00 11/02/24 08:45 Fluticasone/Umeclidin/Vilanter 100-62.5-25 Mcg Ellipta INHALATION 1 puff DAILYRT KALPESH Administration Folic Acid 1 mg 10/30/24 09:00 11/02/24 10:01 Folic Acid 1 Mg Tablet PO 1 mg DAILY KALPESH Administration Gabapentin 300 mg 10/30/24 09:00 11/02/24 10:02 Gabapentin 300 Mg Capsule PO 300 mg Q12HR KALPESH Administration Glucagon 1 mg 10/30/24 02:33 Glucagon For Inj 1 Mg Vial IM PRN PRN Hypoglycemia Protocol Glucose 15 gm 10/30/24 02:33 Glucose Oral Gel 15 Gm Of Glucse In 37.5 Gm Tube PO PRN PRN Hypoglycemia Protocol Guaifenesin 1,200 mg 11/01/24 21:00 11/02/24 10:03 Guaifenesin 12 Hr 600 Mg Tabcr PO 1,200 mg Q12HR KALPESH Administration Heparin Sodium (Porcine) 6,000 units 10/31/24 09:00 Heparin Sodium 5,000 Units/Ml Vial IV PUSH PRN PRN aPTT less than 55 seconds Heparin Sodium (Porcine) 3,000 units 10/31/24 09:00 Heparin Sodium 5,000 Units/Ml Vial IV PUSH PRN PRN aPTT 55 - 70 seconds Hydrocortisone 1 applic 10/30/24 02:20 Hydrocortisone 1% 30 Gm Cream TOPICAL Q8H PRN FOR ITCHING Hydroxyzine Pamoate 25 mg 10/30/24 02:20 10/30/24 17:20 Hydroxyzine Pamoate 25 Mg Capsule PO 25 mg Q12H PRN Administration anxiety Ceftriaxone Sodium 1 gm in 50 mls @ 100 mls/hr 10/30/24 21:00 11/01/24 22:25 Rocephin 1 Gm/Ns 50 Ml IVPB Infused Q24H KALPESH Infusion Dextrose 1,000 mls @ 100 mls/hr 10/30/24 02:33 Dextrose 5% 1,000 Ml IVPB PRN PRN Hypoglycemia Protocol Heparin Sodium/Dextrose 25,000 units in 250 mls @ 12 mls/hr 10/31/24 09:00 11/02/24 08:03 Heparin Sodium/D5w 100 Units/Ml IV CONT 0 units/hr .[id number] KALPESH 0 mls/hr Titration Protocol 1,200 UNITS/HR Insulin Aspart 4 - 8 units 10/30/24 08:00 11/02/24 10:00 Insulin Aspart (*Bkc) 100 Units/Ml SUB-Q Not Given TIDWM KALPESH Protocol Loratadine 10 mg 10/30/24 09:00 11/02/24 10:16 Loratadine 10 Mg Tablet PO 10 mg QAM KALPESH Administration Magnesium Hydroxide 30 ml 10/30/24 02:20 Magnesium Hydroxide Susp 30 Ml Udc PO QHS PRN Constipation Multi-Ingred Cream/Lotion/Oil/Oint 1 applic 10/30/24 09:00 11/01/24 16:53 Eucerin Cream 120 Gm Jar TOPICAL 1 applic BID KALPESH Administration Multivitamins Therapeutic 1 tablet 10/30/24 09:00 11/02/24 10:15 Multivitamins Therapeutic Tab (*Bkc) PO 1 tablet DAILY KALPESH Administration Pantoprazole Sodium 40 mg 10/30/24 09:00 11/02/24 10:15 Pantoprazole 40 Mg Tablet PO 40 mg Q12HR KALPESH Administration Prednisone 40 mg 10/31/24 12:35 11/02/24 10:15 Prednisone 20 Mg Tablet PO 40 mg DAILY@0800 KALPESH Administration Saccharomyces Boulardii 250 mg 10/30/24 09:00 11/02/24 10:02 Saccharomyces Boulardii 250 Mg Capsule PO 250 mg BID KALPESH Administration Sertraline HCl 100 mg 10/30/24 21:00 11/01/24 21:55 Sertraline Hcl 50 Mg Tablet PO 100 mg QHS KALPESH Administration Simvastatin 10 mg 10/30/24 21:00 11/01/24 21:56 Simvastatin 10 Mg Tablet PO 10 mg HS KALPESH Administration Sodium Bicarbonate 1,300 mg 10/30/24 09:00 11/01/24 08:14 Sodium Bicarbonate Tab 650 Mg Tablet PO 1,300 mg TID KALPESH Administration Tramadol HCl 50 mg 10/30/24 02:20 10/31/24 13:52 Tramadol Hcl (*Crx) 50 Mg Tablet PO 50 mg Q6H PRN Administration chronic pain 4-6 Trazodone HCl 75 mg 10/30/24 21:00 11/01/24 21:55 Trazodone Hcl 25 Mg Tablet PO 75 mg QHS KALPESH Administration Vitamin D 1,000 units 10/30/24 09:00 11/02/24 10:00 Cholecalciferol 1,000 Units Tablet PO 1,000 units DAILY KALPESH Administration Radiology Results: ITS Impressions Chest CT 11/01/24 07:12 IMPRESSION: Prominent lingular and left lower lobe atelectasis and large left pleural effusion; malignancy is not excluded. Consider repeat CT thorax with IV contrast material following left thoracentesis Focal areas of mild right upper lobe infiltrate Right lower lobe infiltrate and atelectasis and small right pleural effusion Cardiomegaly T12-L1 prominent vertebral body fractures Subacute and/or old left rib fractures Chest X-Ray 11/02/24 10:45 IMPRESSION: 1. Small right and large left pleural effusions. 2. Mild pulmonary edema. 3. Airspace opacities in left perihilar region and at left lung base, consistent with atelectasis or less likely pneumonia. 4. Cardiomegaly. Labs Labs: Laboratory Results - last 24 hr 11/01/24 11/01/24 11/01/24 12:53 16:20 20:47 WBC RBC Hgb Hct MCV MCH MCHC RDW Plt Count MPV Immature Gran % (Auto) Neut % (Auto) Lymph % (Auto) [place] % (Auto) Eos % (Auto) Baso % (Auto) Lymph # (Auto) [place] # (Auto) Eos # (Auto) Baso # (Auto) Abs Immat Gran (auto) Absolute Neuts (auto) Absolute Nucleated RBC Nucleated RBC % Platelet Estimate Hypochromasia Anisocytosis Ovalocytes Schistocytes APTT 82.5 H Sodium Potassium Chloride Carbon Dioxide Anion Gap BUN Creatinine Estim Creat Clear Calc Estimated GFR Glucose POC Capillary Glucose 259 H 215 H Calcium Phosphorus Magnesium Total Bilirubin Direct Bilirubin AST ALT Alkaline Phosphatase Lactate Dehydrogenase NT-Pro-B Natriuret Pep Total Protein Albumin 11/02/24 11/02/24 11/02/24 04:48 04:48 07:30 WBC 23.4 H RBC 3.58 L Hgb 9.8 L Hct 33.3 L MCV 93.0 MCH 27.4 MCHC 29.4 L RDW 14.3 Plt Count 267 MPV 9.5 Immature Gran % (Auto) 2.2 H Neut % (Auto) 78.6 H Lymph % (Auto) 11.3 L [place] % (Auto) 7.3 Eos % (Auto) 0.3 Baso % (Auto) 0.3 Lymph # (Auto) 2.66 [place] # (Auto) 1.7 H Eos # (Auto) 0.1 Baso # (Auto) 0.1 Abs Immat Gran (auto) 0.51 H Absolute Neuts (auto) 18.4 H Absolute Nucleated RBC 0.030 H Nucleated RBC % 0.1 Platelet Estimate Adequate Hypochromasia 1+ Anisocytosis 1+ Ovalocytes 1+ Schistocytes None seen APTT Sodium 136 L Potassium 3.8 Chloride 104 Carbon Dioxide 34 H Anion Gap -2 L BUN 47 H Creatinine 2.90 H Estim Creat Clear Calc 20 Estimated GFR 21 L Glucose 103 POC Capillary Glucose 119 H Calcium 7.8 L Phosphorus 3.8 Magnesium 1.9 Total Bilirubin 0.5 Direct Bilirubin 0.0 AST 36 ALT 19 Alkaline Phosphatase 100 Lactate Dehydrogenase 245 NT-Pro-B Natriuret Pep 62557 H Total Protein 6.0 L Albumin 3.1 L 3.0 L 11/02/24 11/02/24 08:43 11:25 WBC RBC Hgb Hct MCV MCH MCHC RDW Plt Count MPV Immature Gran % (Auto) Neut % (Auto) Lymph % (Auto) [place] % (Auto) Eos % (Auto) Baso % (Auto) Lymph # (Auto) [place] # (Auto) Eos # (Auto) Baso # (Auto) Abs Immat Gran (auto) Absolute Neuts (auto) Absolute Nucleated RBC Nucleated RBC % Platelet Estimate Hypochromasia Anisocytosis Ovalocytes Schistocytes APTT 56.3 H Sodium Potassium Chloride Carbon Dioxide Anion Gap BUN Creatinine Estim Creat Clear Calc Estimated GFR Glucose POC Capillary Glucose 110 H Calcium Phosphorus Magnesium Total Bilirubin Direct Bilirubin AST ALT Alkaline Phosphatase Lactate Dehydrogenase NT-Pro-B Natriuret Pep Total Protein Albumin
--- NOTE | 2024-11-02 13:08 | P.PNNP_ITS ---
Progress Note: A&P Assessment and Plan (1) Chronic kidney disease, stage IV (severe): Code(s): N18.4 - Chronic kidney disease, stage 4 (severe) Status: Chronic Assessment and Plan: * baseline creatinine appears to have averaged out to ~ 3.0 - 3.5mg/dl in the last 6 months * slightly better than baseline at this time * outpatient evaluation noted: * normal renal ultrasound * negative serologies with the exceptions of a positive KEITH (but negative dsDNA-Ab), low C3, and a possible M-spike on SPEP * about 1100mg of proteinuria * thought to be secondary to hypertension, diabetes, vascular disease, chronic diuretic therapy, BPH, and age-related change (2) Acute on chronic respiratory failure with hypoxia and hypercapnia: Code(s): J96.21 - Acute and chronic respiratory failure with hypoxia; J96.22 - Acute and chronic respiratory failure with hypercapnia Status: Acute Assessment and Plan: * multifactorial etiology: * COPD exacerbation * left pleural effusion * COVD-19 * CHF/volume overload * pneumonia/bronchitis(?) * on antibiotics * on scheduled IV diuretics * continue bronchodilators, steroids, and antibiotics * Pulmonary following with recommendations noted (3) COVID-19: Code(s): U07.1 - COVID-19 Status: Acute Assessment and Plan: * as noted by testing in ER * on steroids already * not a candidate for remdesivir given #1 * continue supplemental oxygen * follow respiratory status (4) COPD exacerbation: Code(s): J44.1 - Chronic obstructive pulmonary disease with (acute) exacerbation Status: Chronic Assessment and Plan: * see #2 * severe obstruction noted by last PFTs * continue steroids, nebulizer treatments, and antibiotics * wean steroids as tolerated * on Trelegy inhaler * Pulmonary following (5) Pleural effusion, left: Code(s): J90 - Pleural effusion, not elsewhere classified Status: Acute Assessment and Plan: * as noted by admission imaging * anticoagulation transitioned to heparin gtt in preparation of left thoracentesis * thoracentesis planned for today * diuresis as tolerated * Pulmonary following (6) HTN (hypertension): Qualifiers: Hypertension type: essential hypertension Qualified Code(s): I10 - Essential (primary) hypertension Code(s): I10 - Essential (primary) hypertension Status: Chronic Assessment and Plan: * reasonable control * follow trend of hemodynamics * resume BP medications (amlodipine + hydralazine) as needed * off ESTIVEN-I/ARB/spironolactone due to previous issues with hyperkalemia (7) Profound anemia: Code(s): D64.9 - Anemia, unspecified Status: Chronic Assessment and Plan: * due to CKD possibly worsened by acute illness * on Retacrit (while hospitalized as well as an outpatient) * follow trend of H/H (8) Afib: Qualifiers: Atrial fibrillation type: persistent (not longstanding) Qualified Code(s): I48.19 - Other persistent atrial fibrillation Code(s): I48.91 - Unspecified atrial fibrillation Status: Chronic Assessment and Plan: * rate control strategy * on anticoagulation (heparin gtt currently; was on Eliquis) (9) Type 2 diabetes mellitus: Qualifiers: Diabetes mellitus long-term insulin use: without long-term use Diabetes mellitus complication detail: with foot ulcer Code(s): E11.9 - Type 2 diabetes mellitus without complications Status: Chronic Assessment and Plan: * follow accu-cheks * no apparent home medications despite history * glycemic control per hospitalist Will continue to follow Subjective Date/time seen: 11/02/24 13:08 Interval history: Follow-up for chronic kidney disease. Unable to see yesterday (11/01/24) due to weather and road conditions; chart reviewed since last seen -- renal function/creatinine appears to be tolerating diuresis although CXR still demonstrates large left pleural effusion and pulmonary vascular congestion; patient in no apparent distress but still reports shortness of breath worse than baseline; tentatively on schedule for thoracentesis later this afternoon.. Exam 2 Narrative: General: chronically ill-appearing male in NAD Heart: IRRR, normal S1 and S2; no rub Lungs: coarse with decreased breath sounds on left Abdomen: soft, nontender, nondistended, positive bowel sounds Extremities: no cyanosis or clubbing; trace edema; s/p left BKA and right TMA Skin: dry flaky skin noted Objective Data Vital Signs Vital Signs: Vital Signs Temp Pulse Resp BP Pulse Ox O2 Del Method O2 Flow Rate 11/02/24 12:46 93 20 11/02/24 12:30 66 11/02/24 11:26 97.5 F L 69 20 159/70 H 98 11/02/24 10:00 82 11/02/24 09:02 73 20 11/02/24 08:46 71 20 11/02/24 08:46 95 Nasal Cannula 2 11/02/24 08:45 65 11/02/24 07:05 98.1 F 75 20 140/65 97 11/02/24 06:00 69 11/02/24 05:16 77 20 11/02/24 04:58 98.0 F 56 L 24 H 166/95 H 92 11/02/24 04:30 96 Nasal Cannula 2 11/02/24 04:00 62 11/02/24 02:00 69 11/02/24 01:30 157/93 H 11/02/24 00:20 97 Nasal Cannula 2 11/02/24 00:10 97.5 F L 53 L 20 180/88 H 97 11/02/24 00:00 72 11/01/24 22:00 82 11/01/24 21:45 97 Nasal Cannula 2 11/01/24 21:38 79 20 11/01/24 21:31 97 Nasal Cannula 2 11/01/24 21:30 78 20 11/01/24 20:44 98.0 F 74 22 H 171/92 H 94 11/01/24 20:00 77 11/01/24 18:00 74 Intake/Output Intake/Output: Intake & Output 10/30/24 10/31/24 11/01/24 11/02/24 23:59 23:59 23:59 23:59 Intake Total 2560 1228 2162.7 590 Output Total 2400 1700 2100 3351 Balance 160 -472 62.7 -2761 Meds/Results Medications: Active Medications Generic Name Dose Route Start Last Admin Trade Name Freq PRN Reason Stop Dose Admin Acetaminophen 650 mg 10/30/24 02:25 Acetaminophen 325 Mg Tablet PO Q6H PRN Pain or Fever 1-3 Albuterol 2.5 mg 10/30/24 17:00 11/02/24 13:46 Albuterol Sulfate Neb 2.5 Mg/3 Ml Inh INHALATION 2.5 mg Q4HRT PRN Administration Shortness Of Breath Or Wheezing Amlodipine Besylate 10 mg 11/03/24 09:00 Amlodipine Besylate 10 Mg Tablet PO DAILY KALPESH Amoxicillin/Clavulanate Potassium 1 tablet 11/02/24 21:00 Amoxicillin/Clavulanate K 500-125 Mg Tab PO 11/05/24 09:01 Q12HR KALPESH Ascorbic Acid 500 mg 10/30/24 09:00 11/02/24 17:12 Ascorbic Acid 500 Mg Tablet PO 500 mg BID KALPESH Administration Aspirin 325 mg 10/30/24 09:00 11/02/24 10:02 Aspirin 325 Mg Enteric Tablet PO 325 mg QAM KALPESH Administration Azithromycin 250 mg 11/01/24 21:00 11/01/24 21:54 Azithromycin 250 Mg Tablet PO 11/02/24 21:01 250 mg HS KALPESH Administration Baclofen 5 mg 10/30/24 02:25 Baclofen 5 Mg Tablet PO Q8H PRN MUSCLE SPASM Benzonatate 100 mg 10/30/24 02:25 Benzonatate 100 Mg Capsule PO TID PRN Cough Bisacodyl 10 mg 10/30/24 02:20 Bisacodyl 10 Mg Suppository RECTAL DAILY PRN SEE INSTRUCTIONS Bumetanide 1 mg 10/30/24 09:00 11/02/24 17:12 Bumetanide Inj 1 Mg/4 Ml Vial IV PUSH 11/02/24 23:00 1 mg BID KALPESH Administration Bumetanide 1 mg 11/03/24 09:00 Bumetanide 1 Mg Tablet PO DAILY KALPESH Cyanocobalamin 1,000 mcg 10/30/24 09:00 11/02/24 10:03 Cyanocobalamin 1,000 Mcg Tablet PO 1,000 mcg DAILY KALPESH Administration Dextrose 12.5 gm 10/30/24 02:33 Dextrose 50% 25 Gm/50 Ml Syringe IV PUSH PRN PRN Hypoglycemia Protocol Epoetin Aaron-epbx 10,000 units 11/02/24 09:00 11/02/24 13:46 Epoetin Aaron-Epbx 10,000 Units/Ml Vial SUB-Q 10,000 units MoWeFr@0900 KALPESH Administration Fluticasone/Umeclidinium/Vilanterol 1 puff 10/30/24 08:00 11/02/24 08:45 Fluticasone/Umeclidin/Vilanter 100-62.5-25 Mcg Ellipta INHALATION 1 puff DAILYRT KALPESH Administration Folic Acid 1 mg 10/30/24 09:00 11/02/24 10:01 Folic Acid 1 Mg Tablet PO 1 mg DAILY KALPESH Administration Gabapentin 300 mg 10/30/24 09:00 11/02/24 10:02 Gabapentin 300 Mg Capsule PO 300 mg Q12HR KALPESH Administration Glucagon 1 mg 10/30/24 02:33 Glucagon For Inj 1 Mg Vial IM PRN PRN Hypoglycemia Protocol Glucose 15 gm 10/30/24 02:33 Glucose Oral Gel 15 Gm Of Glucse In 37.5 Gm Tube PO PRN PRN Hypoglycemia Protocol Guaifenesin 1,200 mg 11/01/24 21:00 11/02/24 10:03 Guaifenesin 12 Hr 600 Mg Tabcr PO 1,200 mg Q12HR KALPESH Administration Heparin Sodium (Porcine) 6,000 units 10/31/24 09:00 Heparin Sodium 5,000 Units/Ml Vial IV PUSH PRN PRN aPTT less than 55 seconds Heparin Sodium (Porcine) 3,000 units 10/31/24 09:00 Heparin Sodium 5,000 Units/Ml Vial IV PUSH PRN PRN aPTT 55 - 70 seconds Hydralazine HCl 25 mg 11/02/24 17:00 11/02/24 17:11 Hydralazine Hcl 25 Mg Tablet PO 25 mg TID KALPESH Administration Hydrocortisone 1 applic 10/30/24 02:20 Hydrocortisone 1% 30 Gm Cream TOPICAL Q8H PRN FOR ITCHING Hydroxyzine Pamoate 25 mg 10/30/24 02:20 10/30/24 17:20 Hydroxyzine Pamoate 25 Mg Capsule PO 25 mg Q12H PRN Administration anxiety Dextrose 1,000 mls @ 100 mls/hr 10/30/24 02:33 Dextrose 5% 1,000 Ml IVPB PRN PRN Hypoglycemia Protocol Heparin Sodium/Dextrose 25,000 units in 250 mls @ 12 mls/hr 10/31/24 09:00 11/02/24 08:03 Heparin Sodium/D5w 100 Units/Ml IV CONT 0 units/hr .[id number] KALPESH 0 mls/hr Titration Protocol 1,200 UNITS/HR Insulin Aspart 4 - 8 units 10/30/24 08:00 11/02/24 17:12 Insulin Aspart (*Bkc) 100 Units/Ml SUB-Q 4 units TIDWM KALPESH Administration Protocol Loratadine 10 mg 10/30/24 09:00 11/02/24 10:16 Loratadine 10 Mg Tablet PO 10 mg QAM KALPESH Administration Magnesium Hydroxide 30 ml 10/30/24 02:20 Magnesium Hydroxide Susp 30 Ml Udc PO QHS PRN Constipation Multi-Ingred Cream/Lotion/Oil/Oint 1 applic 10/30/24 09:00 11/02/24 17:13 Eucerin Cream 120 Gm Jar TOPICAL 1 applic BID KALPESH Administration Multivitamins Therapeutic 1 tablet 10/30/24 09:00 11/02/24 10:15 Multivitamins Therapeutic Tab (*Bkc) PO 1 tablet DAILY KALPESH Administration Pantoprazole Sodium 40 mg 10/30/24 09:00 11/02/24 10:15 Pantoprazole 40 Mg Tablet PO 40 mg Q12HR KALPESH Administration Prednisone 40 mg 10/31/24 12:35 11/02/24 10:15 Prednisone 20 Mg Tablet PO 40 mg DAILY@0800 KALPESH Administration Saccharomyces Boulardii 250 mg 10/30/24 09:00 11/02/24 17:11 Saccharomyces Boulardii 250 Mg Capsule PO 250 mg BID KALPESH Administration Sertraline HCl 100 mg 10/30/24 21:00 11/01/24 21:55 Sertraline Hcl 50 Mg Tablet PO 100 mg QHS KALPES[facility] Administration Simvastatin 10 mg 10/30/24 21:00 11/01/24 21:56 Simvastatin 10 Mg Tablet PO 10 mg HS KALPESH Administration Sodium Bicarbonate 1,300 mg 10/30/24 09:00 11/01/24 08:14 Sodium Bicarbonate Tab 650 Mg Tablet PO 1,300 mg TID KALPESH Administration Tramadol HCl 50 mg 10/30/24 02:20 10/31/24 13:52 Tramadol Hcl (*Crx) 50 Mg Tablet PO 50 mg Q6H PRN Administration chronic pain 4-6 Trazodone HCl 75 mg 10/30/24 21:00 11/01/24 21:55 Trazodone Hcl 25 Mg Tablet PO 75 mg QHS [facility] Administration Vitamin D 1,000 units 10/30/24 09:00 11/02/24 10:00 Cholecalciferol 1,000 Units Tablet PO 1,000 units DAILY KALPESH Administration Radiology Results: ITS Impressions Chest CT 11/01/24 07:12 IMPRESSION: Prominent lingular and left lower lobe atelectasis and large left pleural effusion; malignancy is not excluded. Consider repeat CT thorax with IV contrast material following left thoracentesis Focal areas of mild right upper lobe infiltrate Right lower lobe infiltrate and atelectasis and small right pleural effusion Cardiomegaly T12-L1 prominent vertebral body fractures Subacute and/or old left rib fractures Chest X-Ray 11/02/24 17:28 IMPRESSION: Decreased left-sided pleural effusion. No pneumothorax following left-sided thoracentesis. Labs Labs: Laboratory Tests 11/02/24 04:48 11/02/24 04:48 Calcium 7.8 L Phosphorus 3.8 Magnesium 1.9 Total Bilirubin 0.5 Direct Bilirubin 0.0 AST 36 ALT 19 Alkaline Phosphatase 100 Lactate Dehydrogenase 245 NT-Pro-B Natriuret Pep 78175 H Total Protein 6.0 L Albumin 3.1 L
[2024-11-02] MEDS: EPOETIN ALFA-EPBX 10,000 UNITS/ML VIAL 10000 UNITS SUB-Q (13:46)
[2024-11-02] MEDS: EUCERIN CREAM 120 GM JAR 1 APPLIC TOPICAL ×2 (13:51→17:13)
[2024-11-02 14:21] LABS: INR 1.1; Partial Thromboplastin Time 28.6 Seconds (22.3-36.8); Prothrombin Time 14.4 Seconds (11.1-14.7)
[2024-11-02 15:59] LABS: Glucose Point of Care 221 mg/dl (65-105)
--- NOTE | 2024-11-02 16:12 | P.PNIM_ITS ---
Progress Note: A&P Assessment and Plan (1) Acute on chronic respiratory failure with hypoxia and hypercapnia: Code(s): J96.21 - Acute and chronic respiratory failure with hypoxia; J96.22 - Acute and chronic respiratory failure with hypercapnia Status: Acute Assessment and Plan: Patient presents with SOB and left pleural effusion noted by outpatient CXR. ABG showing 7.24/68/93 on 3L. ABG worsened on 7L so placed on BiPAP. CXR showing showing left basilar atelectasis vs PNA and moderate pleural effusion. He tested positive for COVID (also positive in Sept). EKG showing AFib with controlled rate but no change from prior. BNP 7670 and PCT 0.2. Treated in the ED with Soul-Medrol, bronchodilators. Lasix IV once given. Rocephin and Azithro started. Also started on IV Bumex Weaned to 2L since admission. Acute process has resolved Still having good UOP with Bumex. Will change to oral tomorrow. WBC elevated but felt related to steroids that worsening infection. Follow. Pulmonary consulted. Plan for thoracentesis today. (2) COPD exacerbation: Code(s): J44.1 - Chronic obstructive pulmonary disease with (acute) exacerbation Status: Chronic Assessment and Plan: As above. Treated with IV steroids, bronchodilators and IV antibiotic Continue Trelegy. Continue steroids. (3) COVID: Code(s): U07.1 - COVID-19 Status: Acute Assessment and Plan: COVID positive here. CXR as above. Oxygen requirements better Continue supportive care (4) Elevated troponin: Code(s): R77.8 - Other specified abnormalities of plasma proteins Status: Acute Assessment and Plan: Troponin elevated at 0.24 but flat. Noted to be chronically elevated. EKG noted and not showing any acute changes. Likely due to demand ischemia or chronic from renal failure. Doubt ACS (5) CKD (chronic kidney disease): Qualifiers: Chronic kidney disease stage: unspecified stage Qualified Code(s): N18.9 - Chronic kidney disease, unspecified Code(s): N18.9 - Chronic kidney disease, unspecified Status: Acute Assessment and Plan: Cr noted and stable at baseline. Tolerating the diuresis. Monitor (6) Pleural effusion: Code(s): J90 - Pleural effusion, not elsewhere classified Status: Acute Assessment and Plan: Noted by CXR. Transitioned to Heparin for thoracentesis Heparin off with plans for thoracentesis today. Resume Sharmaine tonight. Appreciate Pulm input. Plan Code status full code DVT prophylaxis - Eliquis held. Heparin started. Subjective Date/time seen: 11/02/24 16:12 Interval history: 78yo male with COPD, chronic resp failure on 2.5L, asthma, CHF and anemia here for shortness of breath. No CP. Feels SOB. Occasional cough. Exam Narrative: AF 98.2 177/72 79 20 96% 2L Gen - NARD sitting up in bed Chest - decreased BS in the left base CV - irregularly irregular: Tele showing brief runs of NSVT and PVCs Abd - Soft, NT/ND, +BS Ext - s/p left BKA and right transmetatarsal. 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 Objective Data Vital Signs Vital Signs: Vital Signs - 24 hr 11/01/24 17:18 11/01/24 18:00 11/01/24 20:00 Temperature 98.4 F Pulse Rate 73 74 77 Respiratory Rate 16 Blood Pressure 176/80 H Pulse Oximetry 99 Oxygen Delivery Oxygen Flow Rate 11/01/24 20:44 11/01/24 21:30 11/01/24 21:31 Temperature 98.0 F Pulse Rate 74 78 Respiratory Rate 22 H 20 Blood Pressure 171/92 H Pulse Oximetry 94 97 Oxygen Delivery Nasal Cannula Oxygen Flow Rate 2 11/01/24 21:38 11/01/24 21:45 11/01/24 22:00 Temperature Pulse Rate 79 82 Respiratory Rate 20 Blood Pressure Pulse Oximetry 97 Oxygen Delivery Nasal Cannula Oxygen Flow Rate 2 11/02/24 00:00 11/02/24 00:10 11/02/24 00:20 Temperature 97.5 F L Pulse Rate 72 53 L Respiratory Rate 20 Blood Pressure 180/88 H Pulse Oximetry 97 97 Oxygen Delivery Nasal Cannula Oxygen Flow Rate 2 11/02/24 01:30 11/02/24 02:00 11/02/24 04:00 Temperature Pulse Rate 69 62 Respiratory Rate Blood Pressure 157/93 H Pulse Oximetry Oxygen Delivery Oxygen Flow Rate 11/02/24 04:30 11/02/24 04:58 11/02/24 05:16 Temperature 98.0 F Pulse Rate 56 L 77 Respiratory Rate 24 H 20 Blood Pressure 166/95 H Pulse Oximetry 96 92 Oxygen Delivery Nasal Cannula Oxygen Flow Rate 2 11/02/24 06:00 11/02/24 07:05 11/02/24 08:45 Temperature 98.1 F Pulse Rate 69 75 65 Respiratory Rate 20 Blood Pressure 140/65 Pulse Oximetry 97 Oxygen Delivery Oxygen Flow Rate 11/02/24 08:46 11/02/24 08:46 11/02/24 09:02 Temperature Pulse Rate 71 73 Respiratory Rate 20 20 Blood Pressure Pulse Oximetry 95 Oxygen Delivery Nasal Cannula Oxygen Flow Rate 2 11/02/24 10:00 11/02/24 11:26 11/02/24 12:30 Temperature 97.5 F L Pulse Rate 82 69 66 Respiratory Rate 20 Blood Pressure 159/70 H Pulse Oximetry 98 Oxygen Delivery Oxygen Flow Rate 11/02/24 13:46 11/02/24 13:55 11/02/24 15:20 Temperature 98.2 F Pulse Rate 93 69 79 Respiratory Rate 20 20 20 Blood Pressure 177/72 H Pulse Oximetry 96 Oxygen Delivery Oxygen Flow Rate Intake/Output Intake/Output: Intake & Output 10/30/24 10/31/24 11/01/24 11/02/24 23:59 23:59 23:59 23:59 Intake Total 2560 1228 2162.7 350 Output Total 2400 1700 2100 2350 Balance 160 -472 62.7 -2000 Meds/Results Medications: Active Medications Generic Name Dose Route Start Last Admin Trade Name Freq PRN Reason Stop Dose Admin Acetaminophen 650 mg 10/30/24 02:25 Acetaminophen 325 Mg Tablet PO Q6H PRN Pain or Fever 1-3 Albuterol 2.5 mg 10/30/24 17:00 11/02/24 13:46 Albuterol Sulfate Neb 2.5 Mg/3 Ml Inh INHALATION 2.5 mg Q4HRT PRN Administration Shortness Of Breath Or Wheezing Ascorbic Acid 500 mg 10/30/24 09:00 11/02/24 10:01 Ascorbic Acid 500 Mg Tablet PO 500 mg BID KALPESH Administration Aspirin 325 mg 10/30/24 09:00 11/02/24 10:02 Aspirin 325 Mg Enteric Tablet PO 325 mg QAM KALPESH Administration Azithromycin 250 mg 11/01/24 21:00 11/01/24 21:54 Azithromycin 250 Mg Tablet PO 11/02/24 21:01 250 mg HS KALPESH Administration Baclofen 5 mg 10/30/24 02:25 Baclofen 5 Mg Tablet PO Q8H PRN MUSCLE SPASM Benzonatate 100 mg 10/30/24 02:25 Benzonatate 100 Mg Capsule PO TID PRN Cough Bisacodyl 10 mg 10/30/24 02:20 Bisacodyl 10 Mg Suppository RECTAL DAILY PRN SEE INSTRUCTIONS Bumetanide 1 mg 10/30/24 09:00 11/02/24 10:00 Bumetanide Inj 1 Mg/4 Ml Vial IV PUSH 1 mg BID KALPESH Administration Cyanocobalamin 1,000 mcg 10/30/24 09:00 11/02/24 10:03 Cyanocobalamin 1,000 Mcg Tablet PO 1,000 mcg DAILY KALPESH Administration Dextrose 12.5 gm 10/30/24 02:33 Dextrose 50% 25 Gm/50 Ml Syringe IV PUSH PRN PRN Hypoglycemia Protocol Epoetin Aaron-epbx 10,000 units 11/02/24 09:00 11/02/24 13:46 Epoetin Aaron-Epbx 10,000 Units/Ml Vial SUB-Q 10,000 units MoWeFr@0900 KALPESH Administration Fluticasone/Umeclidinium/Vilanterol 1 puff 10/30/24 08:00 11/02/24 08:45 Fluticasone/Umeclidin/Vilanter 100-62.5-25 Mcg Ellipta INHALATION 1 puff DAILYRT KALPESH Administration Folic Acid 1 mg 10/30/24 09:00 11/02/24 10:01 Folic Acid 1 Mg Tablet PO 1 mg DAILY KALPESH Administration Gabapentin 300 mg 10/30/24 09:00 11/02/24 10:02 Gabapentin 300 Mg Capsule PO 300 mg Q12HR KALPESH Administration Glucagon 1 mg 10/30/24 02:33 Glucagon For Inj 1 Mg Vial IM PRN PRN Hypoglycemia Protocol Glucose 15 gm 10/30/24 02:33 Glucose Oral Gel 15 Gm Of Glucse In 37.5 Gm Tube PO PRN PRN Hypoglycemia Protocol Guaifenesin 1,200 mg 11/01/24 21:00 11/02/24 10:03 Guaifenesin 12 Hr 600 Mg Tabcr PO 1,200 mg Q12HR KALPESH Administration Heparin Sodium (Porcine) 6,000 units 10/31/24 09:00 Heparin Sodium 5,000 Units/Ml Vial IV PUSH PRN PRN aPTT less than 55 seconds Heparin Sodium (Porcine) 3,000 units 10/31/24 09:00 Heparin Sodium 5,000 Units/Ml Vial IV PUSH PRN PRN aPTT 55 - 70 seconds Hydrocortisone 1 applic 10/30/24 02:20 Hydrocortisone 1% 30 Gm Cream TOPICAL Q8H PRN FOR ITCHING Hydroxyzine Pamoate 25 mg 10/30/24 02:20 10/30/24 17:20 Hydroxyzine Pamoate 25 Mg Capsule PO 25 mg Q12H PRN Administration anxiety Ceftriaxone Sodium 1 gm in 50 mls @ 100 mls/hr 10/30/24 21:00 11/01/24 22:25 Rocephin 1 Gm/Ns 50 Ml IVPB Infused Q24H KALPESH Infusion Dextrose 1,000 mls @ 100 mls/hr 10/30/24 02:33 Dextrose 5% 1,000 Ml IVPB PRN PRN Hypoglycemia Protocol Heparin Sodium/Dextrose 25,000 units in 250 mls @ 12 mls/hr 10/31/24 09:00 11/02/24 08:03 Heparin Sodium/D5w 100 Units/Ml IV CONT 0 units/hr .[id number] KALPESH 0 mls/hr Titration Protocol 1,200 UNITS/HR Insulin Aspart 4 - 8 units 10/30/24 08:00 11/02/24 13:44 Insulin Aspart (*Bkc) 100 Units/Ml SUB-Q Not Given TIDWM KALPESH Protocol Loratadine 10 mg 10/30/24 09:00 11/02/24 10:16 Loratadine 10 Mg Tablet PO 10 mg QAM KALPESH Administration Magnesium Hydroxide 30 ml 10/30/24 02:20 Magnesium Hydroxide Susp 30 Ml Udc PO QHS PRN Constipation Multi-Ingred Cream/Lotion/Oil/Oint 1 applic 10/30/24 09:00 11/02/24 13:51 Eucerin Cream 120 Gm Jar TOPICAL 1 applic BID KALPESH Administration Multivitamins Therapeutic 1 tablet 10/30/24 09:00 11/02/24 10:15 Multivitamins Therapeutic Tab (*Bkc) PO 1 tablet DAILY KALPESH Administration Pantoprazole Sodium 40 mg 10/30/24 09:00 11/02/24 10:15 Pantoprazole 40 Mg Tablet PO 40 mg Q12HR KALPESH Administration Prednisone 40 mg 10/31/24 12:35 11/02/24 10:15 Prednisone 20 Mg Tablet PO 40 mg DAILY@0800 KALPESH Administration Saccharomyces Boulardii 250 mg 10/30/24 09:00 11/02/24 10:02 Saccharomyces Boulardii 250 Mg Capsule PO 250 mg BID KALPESH Administration Sertraline HCl 100 mg 10/30/24 21:00 11/01/24 21:55 Sertraline Hcl 50 Mg Tablet PO 100 mg QHS KALPESH Administration Simvastatin 10 mg 10/30/24 21:00 11/01/24 21:56 Simvastatin 10 Mg Tablet PO 10 mg HS KALPESH Administration Sodium Bicarbonate 1,300 mg 10/30/24 09:00 11/01/24 08:14 Sodium Bicarbonate Tab 650 Mg Tablet PO 1,300 mg TID KALPESH Administration Tramadol HCl 50 mg 10/30/24 02:20 10/31/24 13:52 Tramadol Hcl (*Crx) 50 Mg Tablet PO 50 mg Q6H PRN Administration chronic pain 4-6 Trazodone HCl 75 mg 10/30/24 21:00 11/01/24 21:55 Trazodone Hcl 25 Mg Tablet PO 75 mg QHS KALPESH Administration Vitamin D 1,000 units 10/30/24 09:00 11/02/24 10:00 Cholecalciferol 1,000 Units Tablet PO 1,000 units DAILY KALPESH Administration Radiology Results: ITS Impressions Chest CT 11/01/24 07:12 IMPRESSION: Prominent lingular and left lower lobe atelectasis and large left pleural effusion; malignancy is not excluded. Consider repeat CT thorax with IV contrast material following left thoracentesis Focal areas of mild right upper lobe infiltrate Right lower lobe infiltrate and atelectasis and small right pleural effusion Cardiomegaly T12-L1 prominent vertebral body fractures Subacute and/or old left rib fractures Chest X-Ray 11/02/24 10:45 IMPRESSION: 1. Small right and large left pleural effusions. 2. Mild pulmonary edema. 3. Airspace opacities in left perihilar region and at left lung base, consistent with atelectasis or less likely pneumonia. 4. Cardiomegaly. Labs Labs: Laboratory Results - last 24 hr 11/01/24 11/01/24 11/02/24 16:20 20:47 04:48 WBC 23.4 H RBC 3.58 L Hgb 9.8 L Hct 33.3 L MCV 93.0 MCH 27.4 MCHC 29.4 L RDW 14.3 Plt Count 267 MPV 9.5 Immature Gran % (Auto) 2.2 H Neut % (Auto) 78.6 H Lymph % (Auto) 11.3 L [place] % (Auto) 7.3 Eos % (Auto) 0.3 Baso % (Auto) 0.3 Lymph # (Auto) 2.66 [place] # (Auto) 1.7 H Eos # (Auto) 0.1 Baso # (Auto) 0.1 Abs Immat Gran (auto) 0.51 H Absolute Neuts (auto) 18.4 H Absolute Nucleated RBC 0.030 H Nucleated RBC % 0.1 Platelet Estimate Adequate Hypochromasia 1+ Anisocytosis 1+ Ovalocytes 1+ Schistocytes None seen PT INR APTT Sodium 136 L Potassium 3.8 Chloride 104 Carbon Dioxide 34 H Anion Gap -2 L BUN 47 H Creatinine 2.90 H Estim Creat Clear Calc 20 Estimated GFR 21 L Glucose 103 POC Capillary Glucose 259 H 215 H Calcium 7.8 L Phosphorus 3.8 Magnesium 1.9 Total Bilirubin 0.5 Direct Bilirubin 0.0 AST 36 ALT 19 Alkaline Phosphatase 100 Lactate Dehydrogenase 245 NT-Pro-B Natriuret Pep 30890 H Total Protein 6.0 L Albumin 3.1 L 11/02/24 11/02/24 11/02/24 04:48 07:30 08:43 WBC RBC Hgb Hct MCV MCH MCHC RDW Plt Count MPV Immature Gran % (Auto) Neut % (Auto) Lymph % (Auto) [place] % (Auto) Eos % (Auto) Baso % (Auto) Lymph # (Auto) [place] # (Auto) Eos # (Auto) Baso # (Auto) Abs Immat Gran (auto) Absolute Neuts (auto) Absolute Nucleated RBC Nucleated RBC % Platelet Estimate Hypochromasia Anisocytosis Ovalocytes Schistocytes PT INR APTT 56.3 H Sodium Potassium Chloride Carbon Dioxide Anion Gap BUN Creatinine Estim Creat Clear Calc Estimated GFR Glucose POC Capillary Glucose 119 H Calcium Phosphorus Magnesium Total Bilirubin Direct Bilirubin AST ALT Alkaline Phosphatase Lactate Dehydrogenase NT-Pro-B Natriuret Pep Total Protein Albumin 3.0 L 11/02/24 11/02/24 11/02/24 11:25 13:59 15:22 WBC RBC Hgb Hct MCV MCH MCHC RDW Plt Count MPV Immature Gran % (Auto) Neut % (Auto) Lymph % (Auto) [place] % (Auto) Eos % (Auto) Baso % (Auto) Lymph # (Auto) [place] # (Auto) Eos # (Auto) Baso # (Auto) Abs Immat Gran (auto) Absolute Neuts (auto) Absolute Nucleated RBC Nucleated RBC % Platelet Estimate Hypochromasia Anisocytosis Ovalocytes Schistocytes PT 14.4 INR 1.1 APTT 28.6 Sodium Potassium Chloride Carbon Dioxide Anion Gap BUN Creatinine Estim Creat Clear Calc Estimated GFR Glucose POC Capillary Glucose 110 H 221 H Calcium Phosphorus Magnesium Total Bilirubin Direct Bilirubin AST ALT Alkaline Phosphatase Lactate Dehydrogenase NT-Pro-B Natriuret Pep Total Protein Albumin
[2024-11-02 17:11] LABS: pH Pleural Fluid > 7.500 (7.210-7.500)
[2024-11-02] MEDS: hydrALAZINE HCL 25 MG TABLET PO (17:11)
[2024-11-02] MEDS: INSULIN ASPART (*BKC) 100 UNITS/ML SUB-Q (17:12)
[2024-11-02 20:02] LABS: Appearance Pleural Fluid Clear (Clear); Color Pleural Fluid Yellow (Colorless); Lymphocytes Pleural Fluid 31 %; Macrophages Pleural Fluid 5 %; Monocytes Pleural Fluid 26 %; Neutrophils Pleural Fluid 38 % (0-25); Nucleated Cell Pleural Fluid 239 /uL (0-1000); Pleural fluid source Pleural fluid; RBC Pleural Fluid < 2000 /uL (0-10000)
[2024-11-02 20:38] LABS: Glucose Point of Care 289 mg/dl (65-105)
[2024-11-02] MEDS: SERTRALINE HCL 50 MG TABLET 100 MG PO (21:50)
[2024-11-02] MEDS: traZODone HCL 25 MG TABLET 75 MG PO (21:50)
[2024-11-02] MEDS: SIMVASTATIN 10 MG TABLET PO (21:50)
[2024-11-02] MEDS: APIXABAN 2.5 MG TABLET PO (21:50)
[2024-11-02] MEDS: AZITHROMYCIN 250 MG TABLET PO (21:50)
[2024-11-02] MEDS: BACLOFEN 5 MG TABLET PO (21:51)
[2024-11-02] MEDS: AMOXICILLIN/CLAVULANATE K 500-125 MG TAB 1 TABLET PO (21:51)
[2024-11-02] MEDS: traMADol HCL (*CRX) 50 MG TABLET PO (22:00)
[2024-11-03] VITALS (14 sets, daily range): BP systolic 127–155; BP diastolic 42–72; PULSE 58–109; RESP 16–20; TEMP 36.3–36.7; O2SAT 95–100
[2024-11-03 04:52] LABS: Basophils Percent Auto 0.1 % (0.2-1.2); Eosinophils Absolute Auto 0.1 K/mm3 (0-0.3); Eosinophils Percent Auto 0.4 % (0-4.4); Hematocrit 28.5 % (42.0-52.0); Hemoglobin 8.4 g/dL (14.0-18.0); Immature Granulocyte Percent A 1.4 % (0-0.5); Lymphocytes Absolute Auto 0.96 K/mm3 (0.9-3.2); Lymphocytes Percent Auto 6.8 % (18.3-44.2); Mean Corpuscular HGB Conc 29.5 g/dl (32-36); Mean Corpuscular Hemoglobin 27.4 pg (26-34); Mean Corpuscular Volume 92.8 fl (80-100); Mean Platelet Volume 9.9 fl (7.4-10.4); Monocytes Absolute Auto 1.2 K/mm3 (0.1-0.6); Monocytes Percent Auto 8.7 % (2.6-8.5); Neutrophils Absolute Auto 11.7 K/mm3 (1.3-6.7); Neutrophils Percent Auto 82.6 % (45.5-73.1); Platelet Count Result 179 k/mm3 (150-375); Red Blood Count 3.07 M/mm3 (4.6-6.20); Red Cell Distribution Width 14.4 % (11.5-14.5); White Blood Count 14.2 K/mm3 (4.5-10.0)
[2024-11-03 05:10] LABS: Albumin Level 2.4 g/dL (3.5-5.1); Anion Gap 0 mmol/L (4-12); Blood Urea Nitrogen 44 mg/dL (9-20); Calcium 7.3 mg/dL (8.4-10.2); Carbon Dioxide 32 mmol/L (22-30); Chloride 104 mmol/L (98-107); Estimated CRCL calculation 19 ml/min; Estimated Glomerular Filt Rate 21; Glucose 98 mg/dL (65-110); Magnesium 1.7 mg/dL (1.6-2.3); Phosphorus 3.7 mg/dL (2.5-4.5); Potassium 3.8 mmol/L (3.4-5.0); Sodium 136 mmol/L (137-145)
[2024-11-03 05:33] LABS: Anisocytosis 1+; Hypochromasia 1+; Ovalocytes 1+; Platelet Estimate Adequate (Adequate); Schistocytes Rare
[2024-11-03] MEDS: FLUTICASONE/UMECLIDIN/VILANTER 100-62.5-25 MCG ELLIPTA 1 PUFF INHALATION (06:52)
[2024-11-03 07:11] LABS: Glucose Point of Care 105 mg/dl (65-105)
[2024-11-03 08:43] LABS: Glucose Point of Care 109 mg/dl (65-105)
[2024-11-03] MEDS: GABAPENTIN 300 MG CAPSULE PO (09:15)
[2024-11-03] MEDS: APIXABAN 2.5 MG TABLET PO (09:15)
[2024-11-03] MEDS: PANTOPRAZOLE 40 MG TABLET PO (09:15)
[2024-11-03] MEDS: LORATADINE 10 MG TABLET PO (09:15)
[2024-11-03] MEDS: CYANOCOBALAMIN 1,000 MCG TABLET 1000 MCG PO (09:15)
[2024-11-03] MEDS: MULTIVITAMINS THERAPEUTIC TAB (*BKC) 1 TABLET PO (09:15)
[2024-11-03] MEDS: AMOXICILLIN/CLAVULANATE K 500-125 MG TAB 1 TABLET PO (09:15)
[2024-11-03] MEDS: SACCHAROMYCES BOULARDII 250 MG CAPSULE PO (09:15)
[2024-11-03] MEDS: hydrALAZINE HCL 25 MG TABLET PO ×2 (09:15→13:02)
[2024-11-03] MEDS: ASCORBIC ACID 500 MG TABLET PO (09:15)
[2024-11-03] MEDS: guaiFENesin 12 HR 600 MG TABCR 1200 MG PO (09:16)
[2024-11-03] MEDS: EUCERIN CREAM 120 GM JAR 1 APPLIC TOPICAL (09:16)
[2024-11-03] MEDS: ASPIRIN 325 MG ENTERIC TABLET PO (09:16)
[2024-11-03] MEDS: amLODIPine BESYLATE 10 MG TABLET PO (09:16)
[2024-11-03] MEDS: BUMETANIDE 1 MG TABLET PO (09:16)
[2024-11-03] MEDS: FOLIC ACID 1 MG TABLET PO (09:16)
[2024-11-03] MEDS: CHOLECALCIFEROL 1,000 UNITS TABLET 1000 UNITS PO (09:16)
--- NOTE | 2024-11-03 10:16 | P.PNPL_ITS ---
Progress Note: A&P Assessment and Plan (1) Acute exacerbation of chronic obstructive pulmonary disease: Code(s): J44.1 - Chronic obstructive pulmonary disease with (acute) exacerbation Status: Acute Assessment and Plan: 58 pack year tobacco use, current smoker, In 2014 he had an FEV1 1.58 L, 49%, and has smoked until recently. This is severe obstruction. CT scan on 10/31/2024 with minimal apical predominant centrilobular emphysema and paraseptal emphysema. Initial ABG on 3 L 7.24/68/93. Blood gas 1 hour later on 7 L was 7.22/78/79. ABG 5 hours later on BiPAP 18/8 7.33/46/94. 10/31/24: Overall the patient tells me he is feeling a little bit better. He still has increased shortness of breath, his cough is unchanged and he has no wheezing. He is afebrile. White blood cell count 21.3, creatinine 3.0, saturations on 3 L nasal cannula is 94%. currently patient has no wheezing. Plan: Will change patient's Solu-Medrol 40 q.6 to prednisone 40 a day, day 3 of steroids. Will continue patient's trilogy inhaler 100 and guaifenesin 600 mg p.o. b.i.d.. I will check an alpha 1 anti trypsin genotype in the morning. 11/01/2024: Overall the patient states he is a little bit better. He still complains of some rough breathing. His cough is better. His phlegm is unchanged. He had a temperature of 37.7?. Currently is on 2 L with saturations 98%. White blood cell count 18.7, creatinine 2.80, BUN 53 Plan: continue prednisone 40 mg a day, day 4 of steroids, no wheezing and will continue trilogy inhaler 100 and increase guaifenesin to 1200 mg p.o. b.i.d. Once patient is volume status is corrected and thoracentesis is performed will re-evaluate for hypercarbic respiratory failure. 11/02/2024: Overall the patient tells me today he is about the same. He still has shortness of breath and dyspnea on exertion. He has minimal cough which is unchanged. He is afebrile, when I enter the room he is on 1 L nasal cannula saturations 98%. White blood cell count is 23.4. Plan: No wheezing. will discontinue prednisone after today, day 5 of steroids. Continue trilogy inhaler 100, guaifenesin 1200 mg p.o. b.i.d.. Continue ceftriaxone and azithromycin, both day 5. 11/03/2024: Overall the patient tells me that he is breathing better. His cough is at his normal and he is no phlegm production. Currently is on 2 L nasal cannula saturations 96%. White blood cell count 14.2. Plan: Patient is breathing better post thoracentesis. Continues on trilogy inhaler 100, guaifenesin 1200 b.i.d., Claritin and he has been switched to Augmentin yesterday, day 6 total antibiotics. I will order an ABG today to reassess his hypercarbic respiratory failure. I will order an overnight oximetry on 2 L to assess his nocturnal oxygen requirements. Discussed with Dr. Mclain, will follow with you (2) Pleural effusion: Code(s): J90 - Pleural effusion, not elsewhere classified Status: Acute Assessment and Plan: 10/31/24: Patient with evidence of fluid overload and a left pleural effusion. Eliquis is on hold. Plan: Patient will have a thoracentesis once this is deemed safe after holding his Eliquis. Last dose 10/30/2023 at 9:04 a.m. Currently on IV heparin. agree with as aggressive diuresis as possible and as tolerated by his cardiac and renal systems. Creatinine 3.0. Currently on Bumex 1 mg IV b.i.d. with net diuresis since admission 440 mL. 11/01/24: patient is on Bumex 1 mg IV b.i.d. with diuresis of 472 mL yesterday. he is positive 700 mils since admission. His weight today is 74.5 with an admission weight of 77.2. CT scan of the chest on 10/31/2024 demonstrated large left pleural effusion with collapse of the lingula and left lower lobe. Unable to adequately assess lymphadenopathy and or underlying lung mass. Plan: Agree with as aggressive diuresis as tolerated by his cardiac and renal systems per Nephrology and hospitalist teams. Patient is scheduled to have a thoracentesis hopefully on 11/02/2024. 11/02/24: creatinine is 2.9, BUN is 47. Yesterday he was 60 mL positive, net diuresis since admission 1.6 L, weight has decreased from 77.2 on admission to 72. BNP continues to worsen from 10,900 on 10/31/2024 216 1200 today. Chest x-ray with a large left pleural effusion and pulmonary edema. Plan: I spoke with his bedside nurse and the patient is scheduled for thoracentesis later today at 2:00 p.m.. Attempting to diurese the patient is with Bumex 1 mg IV b.i.d. with minimal success due to chronic renal insufficiency. Diuresis per Nephrology and hospitalist teams. Later in the day the patient had a left thoracentesis with 1000 mL of clear fluid removed. G stain showed moderate white blood cells, no organisms. PH was greater than 7.50. Nucleated cells 239 with a differential neutrophils 38%, lymphocytes 31%, monocytes 26%, macrophages 5%. The patient tells me that less than 5 minutes after the procedure was performed he is breathing was much better. 11/03/2024: Overall the patient tells me that he is breathing better. Creatinine 2.88, BUN 44. Patient diuresed 3.1 L yesterday with cumulative diuresis since admission 3.4 L. Weight is 68.3 kg today. Chest x-ray today shows left pleural effusion occupying approximately 20-25% of the left hemithorax. This is improved from pre thoracentesis where the effusion occupied approximately 35-40% of the left hemithorax. Currently this effusion is noninfected appearing and awaiting remainder of pleural chemistries to determine if this is a transudate or exudate. Pleural cultures and cytology pending. (3) COVID-19: Code(s): U07.1 - COVID-19 Status: Acute Assessment and Plan: Patient tested positive for COVID on 10/29/2024. Of note the patient also tested positive on 07/27/2024 and he received no treatment at that time. 10/31/24: Overall the patient tells me he is feeling a little bit better. He still has increased shortness of breath, his cough is unchanged and he has no wheezing. He is afebrile. White blood cell count 21.3, creatinine 3.0, saturations on 3 L nasal cannula is 94%. Plan: Overall patient has improved slightly, oxygenation is stable without any active COVID treatment and agree to hold COVID treatment at this time. Will follow clinically. 11/01/24: he continues to feel little bit better each day. Oxygenation has remained stable on 2 L nasal cannula saturations 98%. CT scan of the chest on 10/31/2023 showed a large left pleural effusion, mild area of infiltrate in the right upper lobe without evidence of diffuse ground-glass infiltrates from COVID. Plan: Continue supportive care at this time. 11/02/2024: Patient remains clinically stable. Will continue supportive care at this time. 11/03/24: Clinically has improved post thoracentesis. Continue supportive care at this time for COVID. Subjective Date/time seen: 11/03/24 10:16 Interval history: Oct 30, 2024 14:45 ICU 8 IMU as an overflow patient. He is not an ICU patient. 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 Chronic atrial fib on Eliquis. 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 He was smoking until a few weeks ago. The history was difficult to obtain. He lives at [facility], a [facility]. He was admitted October 12 through the for severe anemia, hemoglobin 6.5, received 2 units of blood, unremarkable EGD and colonoscopy. He was readmitted October 29 with increasing shortness of breath. His chest x-ray shows large left pleural effusion with compressive atelectasis. See the image below. He has worsening of his hypercapnic hypoxemic respiratory failure. Dr Chicas' note from September states that the patient had a fall on his right side and broke ribs. This effusion is on the left side. He was (+) for SARS-CoV-2 on Oct 29. Had COVID in Jun 2024, as well. In the emergency department ceftriaxone and azithromycin IV were ordered, he received each of these. He says that he uses inhalers when he is at [facility]. He uses oxygen around the clock. He has a daily cough with sputum production, some days sputum is clear and other days sputum is discolored. 10/31/24: Overall the patient tells me he is feeling a little bit better. He still has increased shortness of breath, his cough is unchanged and he has no wheezing. He is afebrile. White blood cell count 21.3, creatinine 3.0, BUN 51, saturations on 3 L nasal cannula is 94%. Cumulative diuresis since admission is 440 mL. 11/01/2024: Overall the patient states he is a little bit better. He still complains of some rough breathing. His cough is better. His phlegm is unchanged. He had a temperature of 37.7?. Currently is on 2 L with saturations 98%. White blood cell count 18.7, creatinine 2.80, BUN 53. 11/02/2024: Overall the patient tells me today he is about the same. He still has shortness of breath and dyspnea on exertion. He has minimal cough which is unchanged. He is afebrile, when I enter the room he is on 1 L nasal cannula saturations 98%. White blood cell count is 23.4, creatinine is 2.9, BUN is 47. Yesterday he was 60 mL positive, net diuresis since admission 1.6 L, weight has decreased from 77.2 on admission to 72. BNP continues to worsen from 10,900 on 10/31/2024 216 1200 today. Chest x-ray with a large left pleural effusion and pulmonary edema. Later in the day the patient had a left thoracentesis with 1000 mL of clear fluid removed. G stain showed moderate white blood cells, no organisms. PH was greater than 7.50. Nucleated cells 239 with a differential neutrophils 38%, lymphocytes 31%, monocytes 26%, macrophages 5%. The patient tells me that less than 5 minutes after the procedure was performed he is breathing was much better. 11/03/2024: Overall the patient tells me that he is breathing better. His cough is at his normal and he is no phlegm production. Currently is on 2 L nasal cannula saturations 96%. White blood cell count 14.2, creatinine 2.88, BUN 44. Patient diuresed 3.1 L yesterday with cumulative diuresis since admission 3.4 L. Weight is 68.3 kg today. DATA * white blood cell count Karely 3rd 12.9, hemoglobin 10.8, hematocrit 37.2, platelet 216 k. * 10/29/24 CXR - moderate L pleural effusion & atelectasis. Right side is clear. * 07/26/2015 PFT -moderately severe obstructive ventilatory impairment with good response to bronchodilator, air trapping, normal diffusion 07/26/15 after bronchodilator FVC 2.90 L, 64% 3.31 L, 70% +14 FEV1 1.58 L, 49% 1.68 L, 53%, +7 FEV1/FVC 54% 51% NGH68-12% TLC 7.63 L, 109% RV 4.63 L, 175% ERV RV/TLC DLCO 19.4, 78 DLCO/VA 4.75, 12.9 * ABG Oct 29 Oct 29 Oct 30 pH 7.23 7.22 7.36 pCO2 67 70 46 pO2 93 79 91 HCO3 28 31 23 sat O2 delivery O2 3 L 7 L 32% rate IPAP 18 EPAP 8 * 07/30/2024 KEITH 1:40, cytoplasmic pattern, negative ANCA, negative [id number] DNA. 02/2022 echo ; Technically difficult study with limited views. 2. Left ventricular chamber dimension is normal. 3. Left ventricular systolic function is hyperdynamic, estimated at >70%. 4. There is mildly increased left ventricular wall thickness. 5. Left atrial chamber dimension is moderately enlarged. 6. Right atrial chamber dimension is moderately enlarged. 7. There is trace tricuspid valve regurgitation. 8. Moderate pulmonary hypertension, estimated pulmonary arterial systolic pressure is 49 mmHg Review of Systems Review of Systems: All systems reviewed & are unremarkable except as noted in HPI and below Constitutional: Constitutional: Reports no additional constitutional complaints Eyes: Eyes: Reports no additional eye complaints ENT: Reports system reviewed and no additional complaints, except as documented Cardiovascular: Cardiovascular: Reports no additional cardiovascular complaints Respiratory: Respiratory: Reports no additional respiratory complaints Gastrointestinal: Gastrointestinal: Reports no additional gastrointestinal complaints Musculoskeletal: Musculoskeletal: Reports no additional musculoskeletal complaints Neurologic: Reports system reviewed and no additional complaints, except as documented Psychiatric: Psychiatric: Reports no additional psychiatric complaints Endocrine: Endocrine: Reports no additional endocrine complaints Hematologic/Lymphatic: Hematologic/Lymphatic: Reports no additional hematologic/lymphatic complaints Allergic/Immunologic: Allergic/Immunologic: Reports no additional allergic/immunologic complaints Exam Const: General: cooperative, healthy appearing and comfortable Orientation/consciousness: oriented to person, oriented to place and oriented to time HENMT: Head: normal to inspection Ears: hearing grossly normal bilaterally Eyes: General: appearance normal, both eyes and all related structures Neck: Neck: normal visual inspection Chest: Chest palpation & inspection: normal inspection of the chest Resp: Effort & Inspection: normal respiratory effort and able to speak in complete sentences Auscultation: no crackles, no rales, no rhonchi, no wheezes and diminished lung sounds Other: improved breath sounds left Cardio: Jugular venous distension: no JVD GI: Inspection: normal to inspection Skin: General skin exam: normal color Neuro: General: oriented to person, oriented to place and oriented to time Extrem: General: normal to inspection Other: Left BKA Psych: Appearance: grossly normal Objective Data Vital Signs Vital Signs: Vital Signs - 24 hr 11/02/24 11:26 11/02/24 12:30 11/02/24 13:46 Temperature 36.4 C L Pulse Rate 69 66 93 Respiratory Rate 20 20 Blood Pressure 159/70 H Pulse Oximetry 98 Oxygen Delivery Oxygen Flow Rate 11/02/24 13:55 11/02/24 14:00 11/02/24 15:20 Temperature 36.8 C Pulse Rate 69 69 79 Respiratory Rate 20 20 Blood Pressure 177/72 H Pulse Oximetry 96 Oxygen Delivery Oxygen Flow Rate 11/02/24 16:00 11/02/24 18:00 11/02/24 19:27 Temperature 36.4 C L Pulse Rate 69 71 80 Respiratory Rate 18 Blood Pressure 152/56 H Pulse Oximetry 97 Oxygen Delivery Oxygen Flow Rate 11/02/24 20:00 11/02/24 21:40 11/02/24 22:00 Temperature Pulse Rate 67 73 Respiratory Rate Blood Pressure Pulse Oximetry 97 Oxygen Delivery Nasal Cannula Oxygen Flow Rate 2 11/02/24 22:00 11/03/24 00:00 11/03/24 00:00 Temperature 36.7 C Pulse Rate 78 75 Respiratory Rate 16 Blood Pressure 131/49 L Pulse Oximetry 98 98 Oxygen Delivery Nasal Cannula Oxygen Flow Rate 2 11/03/24 00:05 11/03/24 02:00 11/03/24 04:00 Temperature Pulse Rate 70 Respiratory Rate Blood Pressure Pulse Oximetry 98 97 Oxygen Delivery Nasal Cannula Nasal Cannula Oxygen Flow Rate 2 2 11/03/24 04:00 11/03/24 05:05 11/03/24 06:00 Temperature 36.3 C L Pulse Rate 62 64 59 L Respiratory Rate 18 Blood Pressure 155/72 H Pulse Oximetry 97 Oxygen Delivery Oxygen Flow Rate 11/03/24 06:52 11/03/24 08:00 11/03/24 08:38 Temperature 36.4 C L Pulse Rate 73 82 82 Respiratory Rate 20 20 20 Blood Pressure 132/68 Pulse Oximetry 99 99 Oxygen Delivery Nasal Cannula Oxygen Flow Rate 2 Intake/Output Intake/Output: Intake & Output 10/31/24 11/01/24 11/02/24 11/03/24 23:59 23:59 23:59 23:59 Intake Total 1228 2162.7 590 330 Output Total 1700 2100 3676 1000 Balance -472 62.7 -3086 -670 Meds/Results Medications: Active Medications Generic Name Dose Route Start Last Admin Trade Name Freq PRN Reason Stop Dose Admin Acetaminophen 650 mg 10/30/24 02:25 Acetaminophen 325 Mg Tablet PO Q6H PRN Pain or Fever 1-3 Albuterol 2.5 mg 10/30/24 17:00 11/02/24 13:46 Albuterol Sulfate Neb 2.5 Mg/3 Ml Inh INHALATION 2.5 mg Q4HRT PRN Administration Shortness Of Breath Or Wheezing Amlodipine Besylate 10 mg 11/03/24 09:00 11/03/24 09:16 Amlodipine Besylate 10 Mg Tablet PO 10 mg DAILY KALPESH Administration Amoxicillin/Clavulanate Potassium 1 tablet 11/02/24 21:00 11/03/24 09:15 Amoxicillin/Clavulanate K 500-125 Mg Tab PO 11/05/24 09:01 1 tablet Q12HR KALPESH Administration Apixaban 2.5 mg 11/02/24 21:00 11/03/24 09:15 Apixaban 2.5 Mg Tablet PO 2.5 mg Q12HR KALPESH Administration Ascorbic Acid 500 mg 10/30/24 09:00 11/03/24 09:15 Ascorbic Acid 500 Mg Tablet PO 500 mg BID KALPESH Administration Aspirin 325 mg 10/30/24 09:00 11/03/24 09:16 Aspirin 325 Mg Enteric Tablet PO 325 mg QAM KALPESH Administration Baclofen 5 mg 10/30/24 02:25 11/02/24 21:51 Baclofen 5 Mg Tablet PO 5 mg Q8H PRN Administration MUSCLE SPASM Benzonatate 100 mg 10/30/24 02:25 Benzonatate 100 Mg Capsule PO TID PRN Cough Bisacodyl 10 mg 10/30/24 02:20 Bisacodyl 10 Mg Suppository RECTAL DAILY PRN SEE INSTRUCTIONS Bumetanide 1 mg 11/03/24 09:00 11/03/24 09:16 Bumetanide 1 Mg Tablet PO 1 mg DAILY KALPESH Administration Cyanocobalamin 1,000 mcg 10/30/24 09:00 11/03/24 09:15 Cyanocobalamin 1,000 Mcg Tablet PO 1,000 mcg DAILY KALPESH Administration Dextrose 12.5 gm 10/30/24 02:33 Dextrose 50% 25 Gm/50 Ml Syringe IV PUSH PRN PRN Hypoglycemia Protocol Epoetin Aaron-epbx 10,000 units 11/02/24 09:00 11/02/24 13:46 Epoetin Aaron-Epbx 10,000 Units/Ml Vial SUB-Q 10,000 units [id number] KALPESH Administration Fluticasone/Umeclidinium/Vilanterol 1 puff 10/30/24 08:00 11/03/24 06:52 Fluticasone/Umeclidin/Vilanter 100-62.5-25 Mcg Ellipta INHALATION 1 puff DAILYRT KALPESH Administration Folic Acid 1 mg 10/30/24 09:00 11/03/24 09:16 Folic Acid 1 Mg Tablet PO 1 mg DAILY KALPESH Administration Gabapentin 300 mg 10/30/24 09:00 11/03/24 09:15 Gabapentin 300 Mg Capsule PO 300 mg Q12HR KALPESH Administration Glucagon 1 mg 10/30/24 02:33 Glucagon For Inj 1 Mg Vial IM PRN PRN Hypoglycemia Protocol Glucose 15 gm 10/30/24 02:33 Glucose Oral Gel 15 Gm Of Glucse In 37.5 Gm Tube PO PRN PRN Hypoglycemia Protocol Guaifenesin 1,200 mg 11/01/24 21:00 11/03/24 09:16 Guaifenesin 12 Hr 600 Mg Tabcr PO 1,200 mg Q12HR KALPESH Administration Hydralazine HCl 25 mg 11/02/24 17:00 11/03/24 09:15 Hydralazine Hcl 25 Mg Tablet PO 25 mg TID KALPESH Administration Hydrocortisone 1 applic 10/30/24 02:20 Hydrocortisone 1% 30 Gm Cream TOPICAL Q8H PRN FOR ITCHING Hydroxyzine Pamoate 25 mg 10/30/24 02:20 10/30/24 17:20 Hydroxyzine Pamoate 25 Mg Capsule PO 25 mg Q12H PRN Administration anxiety Dextrose 1,000 mls @ 100 mls/hr 10/30/24 02:33 Dextrose 5% 1,000 Ml IVPB PRN PRN Hypoglycemia Protocol Insulin Aspart 4 - 8 units 10/30/24 08:00 11/03/24 09:15 Insulin Aspart (*Bkc) 100 Units/Ml SUB-Q Not Given TIDWM KALPESH Protocol Loratadine 10 mg 10/30/24 09:00 11/03/24 09:15 Loratadine 10 Mg Tablet PO 10 mg QAM KALPESH Administration Magnesium Hydroxide 30 ml 10/30/24 02:20 Magnesium Hydroxide Susp 30 Ml Udc PO QHS PRN Constipation Multi-Ingred Cream/Lotion/Oil/Oint 1 applic 10/30/24 09:00 11/03/24 09:16 Eucerin Cream 120 Gm Jar TOPICAL 1 applic BID KALPESH Administration Multivitamins Therapeutic 1 tablet 10/30/24 09:00 11/03/24 09:15 Multivitamins Therapeutic Tab (*Bkc) PO 1 tablet DAILY KALPESH Administration Pantoprazole Sodium 40 mg 10/30/24 09:00 11/03/24 09:15 Pantoprazole 40 Mg Tablet PO 40 mg Q12HR KALPESH Administration Saccharomyces Boulardii 250 mg 10/30/24 09:00 11/03/24 09:15 Saccharomyces Boulardii 250 Mg Capsule PO 250 mg BID KALPESH Administration Sertraline HCl 100 mg 10/30/24 21:00 11/02/24 21:50 Sertraline Hcl 50 Mg Tablet PO 100 mg QHS KALPESH Administration Simvastatin 10 mg 10/30/24 21:00 11/02/24 21:50 Simvastatin 10 Mg Tablet PO 10 mg HS KALPESH Administration Sodium Bicarbonate 1,300 mg 10/30/24 09:00 11/01/24 08:14 Sodium Bicarbonate Tab 650 Mg Tablet PO 1,300 mg TID KALPESH Administration Tramadol HCl 50 mg 10/30/24 02:20 11/02/24 22:00 Tramadol Hcl (*Crx) 50 Mg Tablet PO 50 mg Q6H PRN Administration chronic pain 4-6 Trazodone HCl 75 mg 10/30/24 21:00 11/02/24 21:50 Trazodone Hcl 25 Mg Tablet PO 75 mg QHS KALPESH Administration Vitamin D 1,000 units 10/30/24 09:00 11/03/24 09:16 Cholecalciferol 1,000 Units Tablet PO 1,000 units DAILY KALPESH Administration Radiology Results: ITS Impressions Chest CT 11/01/24 07:12 IMPRESSION: Prominent lingular and left lower lobe atelectasis and large left pleural effusion; malignancy is not excluded. Consider repeat CT thorax with IV contrast material following left thoracentesis Focal areas of mild right upper lobe infiltrate Right lower lobe infiltrate and atelectasis and small right pleural effusion Cardiomegaly T12-L1 prominent vertebral body fractures Subacute and/or old left rib fractures Thoracentesis Ultrasound 11/02/24 20:24 IMPRESSION: 1. Successful ultrasound-guided thoracentesis yielding 1000 mL of clear, yellow fluid. Chest X-Ray 11/03/24 08:32 IMPRESSION: Cardiomegaly with cardiac decompensation and pulmonary edema. Pneumonitis cannot be excluded. Left basilar atelectasis versus pneumonia with pleural effusion. Labs Labs: Laboratory Results - last 24 hr 11/02/24 11/02/24 11/02/24 04:48 11:25 13:59 WBC RBC Hgb Hct MCV MCH MCHC RDW Plt Count MPV Immature Gran % (Auto) Neut % (Auto) Lymph % (Auto) [place] % (Auto) Eos % (Auto) Baso % (Auto) Lymph # (Auto) [place] # (Auto) Eos # (Auto) Baso # (Auto) Abs Immat Gran (auto) Absolute Neuts (auto) Absolute Nucleated RBC Nucleated RBC % Platelet Estimate Hypochromasia Anisocytosis Ovalocytes Schistocytes PT 14.4 INR 1.1 APTT 28.6 Sodium Potassium Chloride Carbon Dioxide Anion Gap BUN Creatinine Estim Creat Clear Calc Estimated GFR Glucose POC Capillary Glucose 110 H Calcium Phosphorus Magnesium NT-Pro-B Natriuret Pep 37463 H Albumin Pleural Fluid Source Pleural Color Pleural Appearance Pleural pH Pleural RBC Pleural Nuc Cells Pleural Neutrophils Pleural Lymphocytes Pleural Monocytes Pleural Macrophages 11/02/24 11/02/24 11/02/24 15:22 16:38 20:34 WBC RBC Hgb Hct MCV MCH MCHC RDW Plt Count MPV Immature Gran % (Auto) Neut % (Auto) Lymph % (Auto) [place] % (Auto) Eos % (Auto) Baso % (Auto) Lymph # (Auto) [place] # (Auto) Eos # (Auto) Baso # (Auto) Abs Immat Gran (auto) Absolute Neuts (auto) Absolute Nucleated RBC Nucleated RBC % Platelet Estimate Hypochromasia Anisocytosis Ovalocytes Schistocytes PT INR APTT Sodium Potassium Chloride Carbon Dioxide Anion Gap BUN Creatinine Estim Creat Clear Calc Estimated GFR Glucose POC Capillary Glucose 221 H 289 H Calcium Phosphorus Magnesium NT-Pro-B Natriuret Pep Albumin Pleural Fluid Source Pleural fluid Pleural Color Yellow Pleural Appearance Clear Pleural pH > 7.500 H Pleural RBC < 2000 Pleural Nuc Cells 239 Pleural Neutrophils 38 H Pleural Lymphocytes 31 Pleural Monocytes 26 Pleural Macrophages 5 11/03/24 11/03/24 11/03/24 04:36 07:09 08:37 WBC 14.2 H RBC 3.07 L Hgb 8.4 L Hct 28.5 L MCV 92.8 MCH 27.4 MCHC 29.5 L RDW 14.4 Plt Count 179 MPV 9.9 Immature Gran % (Auto) 1.4 H Neut % (Auto) 82.6 H Lymph % (Auto) 6.8 L [place] % (Auto) 8.7 H Eos % (Auto) 0.4 Baso % (Auto) 0.1 L Lymph # (Auto) 0.96 [place] # (Auto) 1.2 H Eos # (Auto) 0.1 Baso # (Auto) 0.0 Abs Immat Gran (auto) 0.20 H Absolute Neuts (auto) 11.7 H Absolute Nucleated RBC 0.000 Nucleated RBC % 0.0 Platelet Estimate Adequate Hypochromasia 1+ Anisocytosis 1+ Ovalocytes 1+ Schistocytes Rare PT INR APTT Sodium 136 L Potassium 3.8 Chloride 104 Carbon Dioxide 32 H Anion Gap 0 L BUN 44 H Creatinine 2.88 H Estim Creat Clear Calc 19 Estimated GFR 21 L Glucose 98 POC Capillary Glucose 105 109 H Calcium 7.3 L Phosphorus 3.7 Magnesium 1.7 NT-Pro-B Natriuret Pep Albumin 2.4 L Pleural Fluid Source Pleural Color Pleural Appearance Pleural pH Pleural RBC Pleural Nuc Cells Pleural Neutrophils Pleural Lymphocytes Pleural Monocytes Pleural Macrophages
--- NOTE | 2024-11-03 10:22 | P.PNNP_ITS ---
Progress Note: A&P Assessment and Plan (1) Chronic kidney disease, stage IV (severe): Code(s): N18.4 - Chronic kidney disease, stage 4 (severe) Status: Chronic Assessment and Plan: * baseline creatinine appears to have averaged out to ~ 3.0 - 3.5mg/dl in the last 6 months * slightly better than baseline at this time * outpatient evaluation noted: * normal renal ultrasound * negative serologies with the exceptions of a positive KEITH (but negative dsDNA-Ab), low C3, and a possible M-spike on SPEP * about 1100mg of proteinuria * thought to be secondary to hypertension, diabetes, vascular disease, chronic diuretic therapy, BPH, and age-related change (2) Acute on chronic respiratory failure with hypoxia and hypercapnia: Code(s): J96.21 - Acute and chronic respiratory failure with hypoxia; J96.22 - Acute and chronic respiratory failure with hypercapnia Status: Acute Assessment and Plan: * multifactorial etiology: * COPD exacerbation * left pleural effusion * COVD-19 * CHF/volume overload * pneumonia/bronchitis(?) * on antibiotics * was on scheduled IV diuretics; switched to oral * continue bronchodilators, steroids, and antibiotics * Pulmonary following with recommendations noted (3) COVID-19: Code(s): U07.1 - COVID-19 Status: Acute Assessment and Plan: * as noted by testing in ER * on steroids already * not a candidate for remdesivir given #1 * continue supplemental oxygen * follow respiratory status (4) COPD exacerbation: Code(s): J44.1 - Chronic obstructive pulmonary disease with (acute) exacerbation Status: Chronic Assessment and Plan: * see #2 * severe obstruction noted by last PFTs * continue steroids, nebulizer treatments, and antibiotics * wean steroids as tolerated * on Trelegy inhaler * Pulmonary following (5) Pleural effusion, left: Code(s): J90 - Pleural effusion, not elsewhere classified Status: Acute Assessment and Plan: * as noted by admission imaging * anticoagulation transitioned to heparin gtt in preparation of left thoracentesis * s/p thoracentesis on 11/02/24 * diuresis as tolerated * Pulmonary following (6) HTN (hypertension): Qualifiers: Hypertension type: essential hypertension Qualified Code(s): I10 - Essential (primary) hypertension Code(s): I10 - Essential (primary) hypertension Status: Chronic Assessment and Plan: * reasonable control * follow trend of hemodynamics * resume BP medications (amlodipine + hydralazine) as needed * off ESTIVEN-I/ARB/spironolactone due to previous issues with hyperkalemia (7) Profound anemia: Code(s): D64.9 - Anemia, unspecified Status: Chronic Assessment and Plan: * due to CKD possibly worsened by acute illness * on Retacrit (while hospitalized as well as an outpatient) * follow trend of H/H (8) Afib: Qualifiers: Atrial fibrillation type: persistent (not longstanding) Qualified Code(s): I48.19 - Other persistent atrial fibrillation Code(s): I48.91 - Unspecified atrial fibrillation Status: Chronic Assessment and Plan: * rate control strategy * on anticoagulation (heparin gtt currently; was on Eliquis) (9) Type 2 diabetes mellitus: Qualifiers: Diabetes mellitus complication detail: with foot ulcer Diabetes mellitus detention insulin use: without termite inspector use Code(s): E11.9 - Type 2 diabetes mellitus without complications Status: Chronic Assessment and Plan: * follow accu-cheks * no apparent home medications despite history * glycemic control per hospitalist Will continue to follow Subjective Date/time seen: 11/03/24 10:22 Interval history: Follow-up for chronic kidney disease. S/P left thoracentesis yesterday and tolerated this intervention reasonably well; renal function/creatinine stable if not better despite only diuresis; he reports improvement in his breathing overall as well; no apparent distress noted; no other issues/events overnight or earlier this morning. Exam 2 Narrative: General: chronically ill-appearing male in NAD Heart: IRRR, normal S1 and S2; no rub Lungs: coarse with decreased breath sounds on left Abdomen: soft, nontender, nondistended, positive bowel sounds Extremities: no cyanosis or clubbing; trace edema; s/p left BKA and right TMA Skin: dry flaky skin apparent Objective Data Vital Signs Vital Signs: Vital Signs Temp Pulse Resp BP Pulse Ox O2 Del Method O2 Flow Rate 11/03/24 10:00 73 11/03/24 08:38 97.5 F L 82 20 132/68 99 11/03/24 08:00 58 L 11/03/24 08:00 82 20 99 Nasal Cannula 2 11/03/24 06:52 73 20 11/03/24 06:00 59 L 11/03/24 05:05 97.4 F L 64 18 155/72 H 97 11/03/24 04:00 62 11/03/24 04:00 97 Nasal Cannula 2 11/03/24 02:00 70 11/03/24 00:05 98 Nasal Cannula 2 11/03/24 00:00 75 11/03/24 00:00 98.1 F 78 16 131/49 L 98 11/02/24 22:00 98 Nasal Cannula 2 11/02/24 22:00 73 11/02/24 21:40 97 Nasal Cannula 2 11/02/24 20:00 67 11/02/24 19:27 97.5 F L 80 18 152/56 H 97 11/02/24 18:00 71 11/02/24 16:00 69 11/02/24 15:20 98.2 F 79 20 177/72 H 96 11/02/24 14:00 69 11/02/24 13:55 69 20 11/02/24 13:46 93 20 Intake/Output Intake/Output: Intake & Output 10/31/24 11/01/24 11/02/24 11/03/24 23:59 23:59 23:59 23:59 Intake Total 1228 2162.7 590 330 Output Total 1700 2100 3676 1003 Balance -2 62.7 -3086 -673 Meds/Results Medications: Active Medications Generic Name Dose Route Start Last Admin Trade Name Freq PRN Reason Stop Dose Admin Acetaminophen 650 mg 10/30/24 02:25 Acetaminophen 325 Mg Tablet PO Q6H PRN Pain or Fever 1-3 Albuterol 2.5 mg 10/30/24 17:00 11/02/24 13:46 Albuterol Sulfate Neb 2.5 Mg/3 Ml Inh INHALATION 2.5 mg Q4HRT PRN Administration Shortness Of Breath Or Wheezing Amlodipine Besylate 10 mg 11/03/24 09:00 11/03/24 09:16 Amlodipine Besylate 10 Mg Tablet PO 10 mg DAILY KALPESH Administration Amoxicillin/Clavulanate Potassium 1 tablet 11/02/24 21:00 11/03/24 09:15 Amoxicillin/Clavulanate K 500-125 Mg Tab PO 11/05/24 09:01 1 tablet Q12HR KALPESH Administration Apixaban 2.5 mg 11/02/24 21:00 11/03/24 09:15 Apixaban 2.5 Mg Tablet PO 2.5 mg Q12HR KALPESH Administration Ascorbic Acid 500 mg 10/30/24 09:00 11/03/24 09:15 Ascorbic Acid 500 Mg Tablet PO 500 mg BID KALPESH Administration Aspirin 325 mg 10/30/24 09:00 11/03/24 09:16 Aspirin 325 Mg Enteric Tablet PO 325 mg QAM KALPESH Administration Baclofen 5 mg 10/30/24 02:25 11/02/24 21:51 Baclofen 5 Mg Tablet PO 5 mg Q8H PRN Administration MUSCLE SPASM Benzonatate 100 mg 10/30/24 02:25 Benzonatate 100 Mg Capsule PO TID PRN Cough Bisacodyl 10 mg 10/30/24 02:20 Bisacodyl 10 Mg Suppository RECTAL DAILY PRN SEE INSTRUCTIONS Bumetanide 1 mg 11/03/24 09:00 11/03/24 09:16 Bumetanide 1 Mg Tablet PO 1 mg DAILY KALPESH Administration Cyanocobalamin 1,000 mcg 10/30/24 09:00 11/03/24 09:15 Cyanocobalamin 1,000 Mcg Tablet PO 1,000 mcg DAILY KALPESH Administration Dextrose 12.5 gm 10/30/24 02:33 Dextrose 50% 25 Gm/50 Ml Syringe IV PUSH PRN PRN Hypoglycemia Protocol Epoetin Aaron-epbx 10,000 units 11/02/24 09:00 11/02/24 13:46 Epoetin Aaron-Epbx 10,000 Units/Ml Vial SUB-Q 10,000 units [id number] KALPESH Administration Fluticasone/Umeclidinium/Vilanterol 1 puff 10/30/24 08:00 11/03/24 06:52 Fluticasone/Umeclidin/Vilanter 100-62.5-25 Mcg Ellipta INHALATION 1 puff DAILYRT KALPESH Administration Folic Acid 1 mg 10/30/24 09:00 11/03/24 09:16 Folic Acid 1 Mg Tablet PO 1 mg DAILY KALPESH Administration Gabapentin 300 mg 10/30/24 09:00 11/03/24 09:15 Gabapentin 300 Mg Capsule PO 300 mg Q12HR KALPESH Administration Glucagon 1 mg 10/30/24 02:33 Glucagon For Inj 1 Mg Vial IM PRN PRN Hypoglycemia Protocol Glucose 15 gm 10/30/24 02:33 Glucose Oral Gel 15 Gm Of Glucse In 37.5 Gm Tube PO PRN PRN Hypoglycemia Protocol Guaifenesin 1,200 mg 11/01/24 21:00 11/03/24 09:16 Guaifenesin 12 Hr 600 Mg Tabcr PO 1,200 mg Q12HR KALPESH Administration Hydralazine HCl 25 mg 11/02/24 17:00 11/03/24 09:15 Hydralazine Hcl 25 Mg Tablet PO 25 mg TID KALPESH Administration Hydrocortisone 1 applic 10/30/24 02:20 Hydrocortisone 1% 30 Gm Cream TOPICAL Q8H PRN FOR ITCHING Hydroxyzine Pamoate 25 mg 10/30/24 02:20 10/30/24 17:20 Hydroxyzine Pamoate 25 Mg Capsule PO 25 mg Q12H PRN Administration anxiety Dextrose 1,000 mls @ 100 mls/hr 10/30/24 02:33 Dextrose 5% 1,000 Ml IVPB PRN PRN Hypoglycemia Protocol Insulin Aspart 4 - 8 units 10/30/24 08:00 11/03/24 09:15 Insulin Aspart (*Bkc) 100 Units/Ml SUB-Q Not Given TIDWM KALPESH Protocol Loratadine 10 mg 10/30/24 09:00 11/03/24 09:15 Loratadine 10 Mg Tablet PO 10 mg QAM KALPESH Administration Magnesium Hydroxide 30 ml 10/30/24 02:20 Magnesium Hydroxide Susp 30 Ml Udc PO QHS PRN Constipation Multi-Ingred Cream/Lotion/Oil/Oint 1 applic 10/30/24 09:00 11/03/24 09:16 Eucerin Cream 120 Gm Jar TOPICAL 1 applic BID KALPESH Administration Multivitamins Therapeutic 1 tablet 10/30/24 09:00 11/03/24 09:15 Multivitamins Therapeutic Tab (*Bkc) PO 1 tablet DAILY KALPESH Administration Pantoprazole Sodium 40 mg 10/30/24 09:00 11/03/24 09:15 Pantoprazole 40 Mg Tablet PO 40 mg Q12HR KALPESH Administration Saccharomyces Boulardii 250 mg 10/30/24 09:00 11/03/24 09:15 Saccharomyces Boulardii 250 Mg Capsule PO 250 mg BID KALPESH Administration Sertraline HCl 100 mg 10/30/24 21:00 11/02/24 21:50 Sertraline Hcl 50 Mg Tablet PO 100 mg QHS KALPESH Administration Simvastatin 10 mg 10/30/24 21:00 11/02/24 21:50 Simvastatin 10 Mg Tablet PO 10 mg HS KALPESH Administration Sodium Bicarbonate 1,300 mg 10/30/24 09:00 11/01/24 08:14 Sodium Bicarbonate Tab 650 Mg Tablet PO 1,300 mg TID KALPESH Administration Tramadol HCl 50 mg 10/30/24 02:20 11/02/24 22:00 Tramadol Hcl (*Crx) 50 Mg Tablet PO 50 mg Q6H PRN Administration chronic pain 4-6 Trazodone HCl 75 mg 10/30/24 21:00 11/02/24 21:50 Trazodone Hcl 25 Mg Tablet PO 75 mg QHS KALPESH Administration Vitamin D 1,000 units 10/30/24 09:00 11/03/24 09:16 Cholecalciferol 1,000 Units Tablet PO 1,000 units DAILY KALPESH Administration Radiology Results: ITS Impressions Chest CT 11/01/24 07:12 IMPRESSION: Prominent lingular and left lower lobe atelectasis and large left pleural effusion; malignancy is not excluded. Consider repeat CT thorax with IV contrast material following left thoracentesis Focal areas of mild right upper lobe infiltrate Right lower lobe infiltrate and atelectasis and small right pleural effusion Cardiomegaly T12-L1 prominent vertebral body fractures Subacute and/or old left rib fractures Thoracentesis Ultrasound 11/02/24 20:24 IMPRESSION: 1. Successful ultrasound-guided thoracentesis yielding 1000 mL of clear, yellow fluid. Chest X-Ray 11/03/24 08:32 IMPRESSION: Cardiomegaly with cardiac decompensation and pulmonary edema. Pneumonitis cannot be excluded. Left basilar atelectasis versus pneumonia with pleural effusion. Labs Labs: Laboratory Tests 11/03/24 04:36 11/03/24 04:36 Calcium 7.3 L Phosphorus 3.7 Magnesium 1.7 Albumin 2.4 L Microbiology 11/02/24 16:38 Pleural Fluid Anaerobic Culture - Preliminary 11/02/24 16:38 Pleural Fluid Gram Stain - Final
[2024-11-03 10:42] LABS: Alveolar/Arterial O2 Gradient 49.9 mmHg; Base Excess ABG -0.7 mEq/l (+/-2.0); Fractional Inspired Oxygen 28 %; HCO3 ABG 25.5 mEq/l (22.0-26.0); Oxygen Content ABG 12.6 %vol (16.0-22.0); Oxygen Saturation ABG 96.4 % (95.0-100.0); PCO2 ABG 49.5 mmHg (35.0-45.0); PO2 ABG 91.3 mmHg (80.0-100.0); PO2 FiO2 Ratio Arterial Blood 3.26 %; Total Hemoglobin 9.2 g/dL (12.0-18.0)
[2024-11-03 11:07] LABS: Device NASAL CANNULA; Modified Allen's Test Pass; Site Drawn LEFT RADIAL
[2024-11-03 11:57] LABS: Glucose Point of Care 298 mg/dl (65-105)
[2024-11-03] MEDS: INSULIN ASPART (*BKC) 100 UNITS/ML SUB-Q (13:02)
--- NOTE | 2024-11-03 15:15 | PM.DS ---
DS: Admitting Diagnosis Discharge Date 11/03/24 Admitting Diagnosis Shortness of breath DS: Discharge Diagnosis Discharge Diagnosis (1) Acute on chronic respiratory failure with hypoxia and hypercapnia: Code(s): J96.21 - Acute and chronic respiratory failure with hypoxia; J96.22 - Acute and chronic respiratory failure with hypercapnia Status: Acute (2) COPD exacerbation: Code(s): J44.1 - Chronic obstructive pulmonary disease with (acute) exacerbation Status: Chronic (3) COVID: Code(s): U07.1 - COVID-19 Status: Acute (4) Elevated troponin: Code(s): R77.8 - Other specified abnormalities of plasma proteins Status: Acute (5) CKD (chronic kidney disease): Qualifiers: Chronic kidney disease stage: unspecified stage Qualified Code(s): N18.9 - Chronic kidney disease, unspecified Code(s): N18.9 - Chronic kidney disease, unspecified Status: Acute (6) Pleural effusion: Code(s): J90 - Pleural effusion, not elsewhere classified Status: Acute DS: Summary Hospital Course Reason for hospitalization: 78yo male with COPD, chronic resp failure on 2.5L, asthma, CHF and anemia here for shortness of breath. Please see H&P for details. Hospital Course: Patient presented with SOB and left pleural effusion noted by outpatient CXR. ABG showing 7.24/68/93 on 3L. ABG worsened on 7L so placed on BiPAP. CXR showing showing left basilar atelectasis vs PNA and moderate pleural effusion. He tested positive for COVID (also positive in Sept). EKG showing AFib with controlled rate but no change from prior. BNP 7670 and PCT 0.2. Treated in the ED with Soul-Medrol, bronchodilators. Lasix IV once given. Rocephin and Azithro started. Also started on IV Bumex scheduled. Weaned to 2L since admission. Acute process has resolved. Still having good UOP with Bumex. WBC elevated but felt related to steroids. Pulmonary adn nephrology consulted. It was not felt that he had acute COVID infection. Troponin elevated at 0.24 but flat. Noted to be chronically elevated. EKG showing no acute changes. Elevated Troponin likely due to demand ischemia or chronic from renal failure. Cr remained stable and he tolerated the diuresis well. Pleural effusion noted by CXR. He was transitioned from Eliquis to Heparin for thoracentesis. He underwent thoracentesis with removal of 1L of clear yellow fluid. Pleural pH 7.. 239 WBC with 38% neutrophils, 31% lymphocytes and 26% monocytes. Other studies pending. Discussed with pulmonary. He overall did well and was able to be discharged on 11/03/24. Status at Discharge Cognitive/behavioral status at discharge: stable Time Spent with Patient Time attestation: Total time spent providing and/or coordinating discharge services: 36 minutes Time spent: Greater than 30 minutes Exam Narrative: AF 98.0 133/42 86 18 95% 2L Gen - NARD lying almost flat in bed Chest - improved air exchange in the left base CV - irregularly irregular Abd - Soft, NT/ND, +BS Ext - s/p left BKA and right transmetatarsal. 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 DS: Data Data Completed and Pending Pending studies at discharge: Pending at discharge 10/30/24 16:26 Cytology [PTH] Routine Labs on day of discharge: Labs from last 24 hours 11/03/24 11/03/24 11/03/24 11:50 10:30 08:37 WBC RBC Hgb Hct MCV MCH MCHC RDW Plt Count MPV Immature Gran % (Auto) Neut % (Auto) Lymph % (Auto) [place] % (Auto) Eos % (Auto) Baso % (Auto) Lymph # (Auto) [place] # (Auto) Eos # (Auto) Baso # (Auto) Abs Immat Gran (auto) Absolute Neuts (auto) Absolute Nucleated RBC Nucleated RBC % Platelet Estimate Hypochromasia Anisocytosis Ovalocytes Schistocytes Puncture Site Left radial ABG pH 7.330 L ABG pCO2 49.5 H ABG pO2 91.3 ABG PO2/FiO2 Ratio 3.26 ABG HCO3 25.5 ABG O2 Saturation 96.4 ABG O2 Content 12.6 L ABG Base Excess -0.7 A-a Gradient 49.9 Oxyhemoglobin 96.0 Total Hemoglobin 9.2 L O2 Delivery Device Nasal cannula O2 Liters/Min 2.0 FiO2 28 Sodium Potassium Chloride Carbon Dioxide Anion Gap BUN Creatinine Estim Creat Clear Calc Estimated GFR Glucose POC Capillary Glucose 298 H 109 H Calcium Phosphorus Magnesium Albumin Pleural Fluid Source Pleural Color Pleural Appearance Pleural pH Pleural RBC Pleural Nuc Cells Pleural Neutrophils Pleural Lymphocytes Pleural Monocytes Pleural Macrophages Pleural Total Protein Pleural Albumin Pleural LDH Pleural Glucose Pleural Cholesterol 11/03/24 11/03/24 11/02/24 07:09 04:36 20:34 WBC 14.2 H RBC 3.07 L Hgb 8.4 L Hct 28.5 L MCV 92.8 MCH 27.4 MCHC 29.5 L RDW 14.4 Plt Count 179 MPV 9.9 Immature Gran % (Auto) 1.4 H Neut % (Auto) 82.6 H Lymph % (Auto) 6.8 L [place] % (Auto) 8.7 H Eos % (Auto) 0.4 Baso % (Auto) 0.1 L Lymph # (Auto) 0.96 [place] # (Auto) 1.2 H Eos # (Auto) 0.1 Baso # (Auto) 0.0 Abs Immat Gran (auto) 0.20 H Absolute Neuts (auto) 11.7 H Absolute Nucleated RBC 0.000 Nucleated RBC % 0.0 Platelet Estimate Adequate Hypochromasia 1+ Anisocytosis 1+ Ovalocytes 1+ Schistocytes Rare Puncture Site ABG pH ABG pCO2 ABG pO2 ABG PO2/FiO2 Ratio ABG HCO3 ABG O2 Saturation ABG O2 Content ABG Base Excess A-a Gradient Oxyhemoglobin Total Hemoglobin O2 Delivery Device O2 Liters/Min FiO2 Sodium 136 L Potassium 3.8 Chloride 104 Carbon Dioxide 32 H Anion Gap 0 L BUN 44 H Creatinine 2.88 H Estim Creat Clear Calc 19 Estimated GFR 21 L Glucose 98 POC Capillary Glucose 105 289 H Calcium 7.3 L Phosphorus 3.7 Magnesium 1.7 Albumin 2.4 L Pleural Fluid Source Pleural Color Pleural Appearance Pleural pH Pleural RBC Pleural Nuc Cells Pleural Neutrophils Pleural Lymphocytes Pleural Monocytes Pleural Macrophages Pleural Total Protein Pleural Albumin Pleural LDH Pleural Glucose Pleural Cholesterol 11/02/24 11/02/24 11/02/24 16:38 16:37 15:22 WBC RBC Hgb Hct MCV MCH MCHC RDW Plt Count MPV Immature Gran % (Auto) Neut % (Auto) Lymph % (Auto) [place] % (Auto) Eos % (Auto) Baso % (Auto) Lymph # (Auto) [place] # (Auto) Eos # (Auto) Baso # (Auto) Abs Immat Gran (auto) Absolute Neuts (auto) Absolute Nucleated RBC Nucleated RBC % Platelet Estimate Hypochromasia Anisocytosis Ovalocytes Schistocytes Puncture Site ABG pH ABG pCO2 ABG pO2 ABG PO2/FiO2 Ratio ABG HCO3 ABG O2 Saturation ABG O2 Content ABG Base Excess A-a Gradient Oxyhemoglobin Total Hemoglobin O2 Delivery Device O2 Liters/Min FiO2 Sodium Potassium Chloride Carbon Dioxide Anion Gap BUN Creatinine Estim Creat Clear Calc Estimated GFR Glucose POC Capillary Glucose 221 H Calcium Phosphorus Magnesium Albumin Pleural Fluid Source Pleural fluid Pleural Color Yellow Pleural Appearance Clear Pleural pH > 7.500 H Pleural RBC < 2000 Pleural Nuc Cells 239 Pleural Neutrophils 38 H Pleural Lymphocytes 31 Pleural Monocytes 26 Pleural Macrophages 5 Pleural Total Protein Pending Pleural Albumin Pending Pleural LDH Pending Pleural Glucose Pending Pleural Cholesterol Pending Preliminary micro results at discharge 11/02/24 16:38 Anaerobic Culture - Preliminary Pleural Fluid 10/30/24 04:17 Blood Culture - Preliminary Blood 10/30/24 04:17 Blood Culture - Preliminary Blood Discharge Plan Discharge Attending physician on discharge: Ken Mclain Consulting providers: Ciara Gomez; Polo Calreo Discharging Clinician: Ken Mclain Anticipated Discharge Date/Time: 11/03/24 15:24 Patient Disposition: NH Fpc/Asst Living Activity: as tolerated Diet: renal Discharge Instructions: Fluid restriction diet of <1500mL per day. Check blood pressure 1 to 2 times a day. Record for the doctor's review. Take precautions to avoid falls. Continue 2 Liters/min oxygen at all times. Check daily morning weights after voiding. Call the doctor if the patient gains more than 3 lb in 2 days or 5 lb in 1 week. Contact the doctor if the patient has any low blood presure, lightheadedness with standing or other worrisome symptoms. Avoid NSAIDs (ibuprofen, naproxen, Aleve). Tylenol is safe to take. Follow-up with the provider at the facility. Follow-up with Pulmonary in 3-4 weeks. Please call for an appointment. Follow-up with textile cutting machine operator in 3-4 weeks. please call for an appointment. Thank you for using [facility] for your health care needs. Patient Instructions: Antibiotic Form, Apixaban (By mouth), Heart Failure (DC) Patient Language: Icelandic Stand Alone Forms: General Discharge Information Follow-up/Referrals: Ciara Gomez MD [Physician] - Call for Appointment Polo Calero MD [Physician] - Call for Appointment Master Colbert MD [Primary Care Provider] - Call for Appointment Discharge Medications: New amoxicillin-pot clavulanate [Augmentin] 500-125 mg Tablet 1 tablet PO Q12HR Qty: 4 0RF bumetanide 1 mg Tablet 1 mg PO DAILY Qty: 30 0RF Continued acetaminophen 650 mg tablet extended release 650 mg PO Q4H PRN (Reason: PAIN) Atrovent HFA 17 mcg/actuation HFA aerosol inhaler 2 puff inhalation Q4H PRN (Reason: sob) baclofen 5 mg tablet 5 mg PO Q8H PRN (Reason: MUSCLE SPASM) benzonatate 100 mg capsule 100 mg PO TID PRN (Reason: Cough) bisacodyl 10 mg suppository 10 mg RECTAL DAILY PRN (Reason: SEE INSTRUCTIONS) Rx Instructions: FOR CONSTIPATION DAILY IF NO RESULTS FROM MOM cetirizine 10 mg tablet 10 mg PO DAILY cholecalciferol (vitamin D3) 25 mcg (1,000 unit) tablet 25 mcg PO DAILY magnesium citrate [Citroma] Solution 296 ml PO DAILY PRN (Reason: SEE INSTRUCTIONS) Rx Instructions: NEEDED FOR CONSTIPATION - GIVE IN AM IF NO RESULTS AFTER ENEMA .IF NO RESULTS WITHIN 1 HOUR OF COMPLETION CONTACT magnesium hydroxide 400 mg/5 mL suspension 30 ml PO QHS PRN (Reason: Constipation) Rx Instructions: FOR CONSTIPATION IF NO BM IN 3 DAYS sertraline 50 mg tablet 100 mg PO QHS gabapentin 300 mg capsule 300 mg PO BID cyanocobalamin (vitamin B-12) 500 mcg tablet 1,000 mcg PO DAILY Rx Instructions: take 750mcg daily hydrocortisone [Cortisone (hydrocortisone)] 1 % cream 1 applic topical .Q 8HR PRN (Reason: FOR ITCHING) Rx Instructions: to affected skin ascorbic acid (vitamin C) 500 mg capsule 500 mg PO BID Eliquis 2.5 mg Tablet 2.5 mg PO BID Trelegy Ellipta 100-62.5-25 mcg Blister With Device 1 inh INHALATION DAILY simvastatin 10 mg tablet 10 mg PO HS Procrit 10,000 unit/mL solution 10,000 unit subcut .MWF Rx Instructions: Administer for Hgb <10 pantoprazole 40 mg tablet,delayed release (DR/EC) 40 mg PO Q12H prednisone 5 mg tablet 5 mg PO DAILY Saccharomyces boulardii [Daily Probiotic (S. boulardii)] 250 mg capsule 250 mg PO BID hydroxyzine pamoate 25 mg capsule 25 mg PO Q12H PRN (Reason: anxiety) hydralazine 25 mg tablet 25 mg PO TID multivitamin [Daily Multi-Vitamin] Tablet 1 tablet PO DAILY aspirin 325 mg capsule 325 mg PO DAILY Minerin Creme Cream 1 applic topical BID Fleet Enema 19-7 gram/118 mL enema 118 ml RECTAL PRN trazodone 50 mg tablet 75 mg PO QHS tramadol 50 mg Tablet 50 mg PO Q6H PRN (Reason: chronic pain) Qty: 1 0RF folic acid 1 mg tablet 1 mg PO DAILY Rx Instructions: TAKE 1 TABLET BY MOUTH DAILY ipratropium-albuterol 0.5 mg-3 mg(2.5 mg base)/3 mL Solution For Nebulization 3 ml INHALATION Q4H PRN (Reason: SOB) amlodipine 10 mg tablet 10 mg PO DAILY Qty: 90 1RF Changed guaifenesin 600 mg Tablet Extended Release 12hr 1,200 mg PO Q12H Qty: 120 0RF Held Lokelma 10 gram Powder In Packet 10 g PO BID 14 Days Qty: 30 0RF Hold Instructions: HOLD - Resume when okay with your doctor sodium bicarbonate 650 mg Tablet 1,300 mg PO TID Qty: 90 0RF Hold Instructions: HOLD - Resume when okay with your doctor Discontinued ipratropium-albuterol 0.5 mg-3 mg(2.5 mg base)/3 mL solution for nebulization 3 ml inhalation Q4H PRN (Reason: shortness of breath or wheezing) ferrous sulfate 325 mg (65 mg iron) tablet 325 mg PO DAILY diclofenac sodium [Arthritis Pain (diclofenac)] 1 % gel 2 g topical TID Rx Instructions: apply to left shoulder torsemide 10 mg tablet 10 mg PO QAM Other Ambulatory Orders: Renal Function Panel (Routine) Timeframe: 1 Week Location: Determined by Patient Ordered By: Ken Mclain Date of admission: 10/29/24 21:36 Primary Care Provider: Master Colbert Admitting Provider: Juan Manuel Loredo Attending physician on admission: Juan Manuel Loredo Condition: Stable Hospitalist MIPS Heart Failure (Exclusion) Patient has history of Heart Transplant or Left Ventricular Assistive Device?: No IF YES, STOP HERE Heart Failure (Qualifier) Patient has current or prior documentation of LVEF less than or equal to 40%, or mod/servere depressed LVSF?: No IF NO, STOP HERE
[2024-11-03 16:48] LABS: Glucose Point of Care 104 mg/dl (65-105)
[2024-11-03 16:48] LABS: Glucose Point of Care 54 mg/dl (65-105)
--- OUTSIDE RECORDS SUMMARY | 2024-11-06 02:44 | XMS_ITS | Encounter Summary ---
Author Organization [facility] Address [address] [place] [address] Care Team Providers Care Regional Telecommunications Specialist Name Role Phone Leoncio Kilpatrick MD Primary Care Provider [phone] Encounter Details Date Type Department Care Team (Late st Contact Info) Description 06/08/2021 Orders Only [facility] Cardiology [address] [facility] [address] [place] [address] Min Lyon MD [address] [place] [address] [address] [place] [address] Social History Tobacco Use Types Packs/Day Years Used Date Smoking Tobacco: Former Alcohol Use Standard Drinks/Week Comments Yes 0 (1 standard drink = 0.6 oz pur e alcohol) 1OR 2 DAILY Sex and Gender Information Value Date Recorded Sex Assigned at Not on file 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
--- OUTSIDE RECORDS SUMMARY | 2024-11-06 02:44 | XMS_ITS | Encounter Summary ---
Author Organization [facility] Address [address] [place] [address] Care Team Providers Care Seam Rubber Name Role Phone Leoncio Kilpatrick MD Primary Care Provider [phone] Encounter Details Date Type Department Care Team (Late st Contact Info) Description 11/03/2020 Orders Only [facility] Cardiology [address] [place] [address] Destin Bob MD [address] [place] [address] Social History Tobacco Use Types Packs/Day Years Used Date Smoking Tobacco: Former Alcohol Use Standard Drinks/Week Comments Yes 0 (1 standard drink = 0.6 oz pur e alcohol) 1OR 2 DAILY Sex and Gender Information Value Date Recorded Sex Assigned at Not on file 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
--- OUTSIDE RECORDS SUMMARY | 2024-11-06 02:44 | XMS_ITS | Encounter Summary ---
Author Organization [facility] Address [address] [place] [address] Care Team Providers Care Associate Professor Of Geology Name Role Phone Leoncio Kilpatrick MD Primary Care Provider [phone] Encounter Details Date Type Department Care Team (Late st Contact Info) Description 06/20/2018 Orders Only [facility] [address] [place] [address] ProviderSotero MD [address] [place] [address] Social History Tobacco Use Types Packs/Day Years Used Date Smoking Tobacco: Former Alcohol Use Standard Drinks/Week Comments Yes 0 (1 standard drink = 0.6 oz pur e alcohol) 1OR 2 DAILY Sex and Gender Information Value Date Recorded Sex Assigned at Not on file 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
--- OUTSIDE RECORDS SUMMARY | 2024-11-06 02:44 | XMS_ITS | Encounter Summary ---
Author Organization [facility] Address [address] [place] [address] Care Team Providers Care Instant Powder Supervisor Name Role Phone Leoncio Kilpatrick MD Primary Care Provider [phone] Encounter Details Date Type Department Care Team (Late st Contact Info) Description 07/01/2020 Orders Only [facility] Cardiology [address] [facility] [address] [place] [address] Destin Bob MD [address] [place] [address] Social History Tobacco Use Types Packs/Day Years Used Date Smoking Tobacco: Former Alcohol Use Standard Drinks/Week Comments Yes 0 (1 standard drink = 0.6 oz pur e alcohol) 1OR 2 DAILY Sex and Gender Information Value Date Recorded Sex Assigned at Not on file 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
--- OUTSIDE RECORDS SUMMARY | 2024-11-06 02:44 | XMS_ITS | Encounter Summary ---
Author Organization [facility] Address [address] [place] [address] Care Team Providers Care Director Of Institutional Giving Name Role Phone Leoncio Kilpatrick MD Primary Care Provider [phone] Encounter Details Date Type Department Care Team (Late st Contact Info) Description 11/04/2020 Orders Only [facility] Cardiology [address] [facility] [address] [place] [phone] Master Eric MD [address] [place], [place] [address] Social History Tobacco Use Types Packs/Day Years Used Date Smoking Tobacco: Former Alcohol Use Standard Drinks/Week Comments Yes 0 (1 standard drink = 0.6 oz pur e alcohol) 1OR 2 DAILY Sex and Gender Information Value Date Recorded Sex Assigned at Not on file Legal 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
--- OUTSIDE RECORDS SUMMARY | 2024-11-06 02:44 | XMS_ITS | Encounter Summary ---
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 Estimated glomerular filtration [...] BLOOD ORDERABLES Final Res ult ERNESTO SWEET [address] Department [place] [address] * Basic metabolic panel (04/19/2017 [...] ORDERABLES Final Res ult Performing Organization Address City/[facility] [address]/ZIP Co de Phone Number ERNESTO [address] [place] [address] * (ABNORMAL) Differential, auto (04/19/2017 [...] ORDERABLES Final Res ult Performing Organization Address City/[facility] [address]/ZIP Co de Phone Number ERNESTO SWEET [address] [place] [address] * (ABNORMAL) CBC with auto differential (04/19/2017 3:25 AM CDT) WBC 15.96(H) 3.80 - 9.90 K/cumm [facility] CH RBC 3.65(L) 4.30 - 5.80 M/cumm [facility] CH Hgb 10.4(L) 13.0 - 17.5 g/dL [facility] Hct 32.9(L) 38.9 - 50.3 % [facility] MCV 90.1 81.3 - 96.4 fL [facility] MCH 28.5 27.1 - 33.3 pg [facility] MCHC 31.6(L) 32.3 - 35.7 g/dL [facility] RDW CV 14.5 11.1 - 14.9 % [facility] RDW SD 48.0 35.7 - 48.1 fL [facility] Plt 311 150 - 400 K/cumm [facility] MPV 8.8(L) 9.1 - 12.3 fL [facility] NRBC 0.0 0.0 - 0.2 % [facility] NRBC abs 0.00 0.00 - 0.01 K/cumm [facility] Blood specimen (specimen) 04/19/2017 3:25 AM CDT 04/19/2017 5:21 AM CDT us Notinfile Unknown LAB BLOOD ORDERABLES Final Res ult [facility] [address] [place] [address] * DISCHARGE LABORATORY CUMULATIVE REPORT (04/19/2017 12:00 AM CDT) Narrative 04/19/2017 12:00 AM CDT Ordered by an unspecified provider. Historical Provider LAB BLOOD ORDERABLES Ellen l Result documented in this encounter Visit Diagnoses Not on filedocumented in this encounter Care Teams Supervisor Sample Relationship Specialty Start Date End Date Leoncio Kilpatrick MD [address] [place] [address] PCP - General 04/19/17 06/08/18 documented as of this encounter
--- OUTSIDE RECORDS SUMMARY | 2024-11-06 02:44 | XMS_ITS | Encounter Summary ---
Author Organization [facility] Address [address] [place] [address] Care Team Providers Care Locksmith Helper Name Role Phone Leoncio Kilpatrick MD Primary Care Provider [phone] Encounter Details Date Type Department Care Team (Late st Contact Info) Description 12/30/2021 Orders Only [facility] Cardiology [address] [facility] [address] [place] [address] Min Lyon MD [address] [place] [address] [address] [place] [address] Social History Tobacco Use Types Packs/Day Years Used Date Smoking Tobacco: Former Alcohol Use Standard Drinks/Week Comments Yes 0 (1 standard drink = 0.6 oz pur e alcohol) 1OR 2 DAILY Sex and Gender Information Value Date Recorded Sex Assigned at Not on file 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
--- OUTSIDE RECORDS SUMMARY | 2024-11-06 02:44 | XMS_ITS | Encounter Summary ---
Author Organization [facility] Address [address] [facility] [address] [place] [address] Care Team Providers Care Kitchen Porter Name Role Phone Leoncio Kilpatrick MD Primary Care Provider [phone] Encounter Details Date Type Department Care Team (Late st Contact Info) Description 06/09/2018 Telephone [facility] [address] [address] Angely Rowe MD [address] [facility] [address] [place] [address] Social History Tobacco Use Types Packs/Day Years Used Date Smoking Tobacco: Former Alcohol Use Standard Drinks/Week Comments Yes 0 (1 standard drink = 0.6 oz pur e alcohol) 1OR 2 DAILY Sex and Gender Information Value Date Recorded Sex Assigned at Not on file Legal 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 Kilpatrick [phone] documented in this encounter Plan of Treatment Not on file documented as of this encounter Visit Diagnoses Not on filedocumented in this encounter Care Teams Kitchen Porter Relationship Specialty Start Date End Date Leoncio Kilpatrick MD [address] [place] [address] PCP - General 06/09/18 documented as of this encounter
--- OUTSIDE RECORDS SUMMARY | 2024-11-06 02:44 | XMS_ITS | Encounter Summary ---
Author Organization [facility] Healthcare Address [address] [place] [address] Care Team Providers Care Veterinarian Epidemiologist Name Role Phone Leoncio Kilpatrick MD Primary Care Provider [phone] Encounter Details Date Type Department Care Team (Latest Contact Info) Description 05/31/2018 1:15 AM CDT - 05/31/2018 11:59 PM CDT Hospital Encounter 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 Electronically signed by: Annabelle Canseco M.D. Narrative 06/01/2018 11:46 AM CDT EXAMINATION: RADIOLOGY CONSULTATION ON OUTSIDE IMAGING STUDY STUDY INITIALLY PERFORMED: 05/30/2018 at [facility]. TYPE OF STUDY: Multiple computed tomographic [...] IMAGING STUDY STUDY INITIALLY PERFORMED: 05/30/2018 at [facility]. TYPE OF STUDY: Multiple computed tomographic [...] images may or may not represent the [place] source data set and thus may contain changes that may lower the accuracy of this second-opinion interpretation. Electronically signed by: Annabelle Canseco M.D. us Isaak Edward MD IMG CT PROCEDURES Final Re sult documented in this encounter Visit Diagnoses Not on filedocumented in this encounter Care Teams Veterinarian Epidemiologist Relationship Specialty Start Date End Date Leoncio Kilpatrick MD [address] [place] [address] PCP - General 04/19/17 06/08/18 documented as of this encounter
--- OUTSIDE RECORDS SUMMARY | 2024-11-06 02:44 | XMS_ITS | Encounter Summary ---
Author Organization [facility] Healthcare Address [facility] [place] [address] Care Team Providers Care Platen Grinder Name Role Phone Leoncio Kilpatrick MD Primary Care Provider [phone] Encounter Details Date Type Department Care Team (Late st Contact Info) Description 08/04/2024 Orders Only [facility] Cardiology [address] [facility] [address] [place] [phone] Joel Pulido MD [address] [place] [address] Social History Tobacco Use Types Packs/Day Years Used Date Smoking Tobacco: Former Alcohol Use Standard Drinks/Week Comments Yes 0 (1 standard drink = 0.6 oz pur e alcohol) 1OR 2 DAILY Sex and Gender Information Value Date Recorded Sex Assigned at Not on file Legal Sex Male 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
--- OUTSIDE RECORDS SUMMARY | 2024-11-06 02:44 | XMS_ITS | Encounter Summary ---
Author Organization [facility] Address [address] [place] [address] Care Team Providers Care Engraver Optical Frames Name Role Phone Leoncio Kilpatrick MD Primary Care Provider [phone] Encounter Details Date Type Department Care Team (Late st Contact Info) Description 11/02/2020 Orders Only [facility] Cardiology [address] [place] [address] Destin Bob MD [address] [place] [address] Social History Tobacco Use Types Packs/Day Years Used Date Smoking Tobacco: Former Alcohol Use Standard Drinks/Week Comments Yes 0 (1 standard drink = 0.6 oz pur e alcohol) 1OR 2 DAILY Sex and Gender Information Value Date Recorded Sex Assigned at Not on file 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
--- OUTSIDE RECORDS SUMMARY | 2024-11-06 02:44 | XMS_ITS | Encounter Summary ---
Author Organization [facility] Address [address] [facility] [address] [place] [address] Care Team Providers Care Explosive Specialist Name Role Phone Leoncio Kilpatrick MD Primary Care Provider [phone] Encounter Details Date Type Department Care Team (Late st Contact Info) Description 06/28/2020 Orders Only [facility] Cardiology [address] [facility] [address] [place] [address] Destin Bob MD [address] [place] [address] Social History Tobacco Use Types Packs/Day Years Used Date Smoking Tobacco: Former Alcohol Use Standard Drinks/Week Comments Yes 0 (1 standard drink = 0.6 oz pur e alcohol) 1OR 2 DAILY Sex and Gender Information Value Date Recorded Sex Assigned at Not on file 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
--- OUTSIDE RECORDS SUMMARY | 2024-11-06 02:44 | XMS_ITS | Encounter Summary ---
Author Organization [facility] Address [address] [place] [address] Care Team Providers Care Optical Lathe Operator Name Role Phone Leoncio Kilpatrick MD Primary Care Provider [phone] Encounter Details Date Type Department Care Team (Late st Contact Info) Description 05/02/2018 Telephone [facility] [address] [place] [address] Angely Rowe MD [address] [place] [address] Social History Tobacco Use Types Packs/Day Years Used Date Smoking Tobacco: Former Alcohol Use Standard Drinks/Week Comments Yes 0 (1 standard drink = 0.6 oz pur e alcohol) 1OR 2 DAILY Sex and Gender Information Value Date Recorded Sex Assigned at Not on file 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
--- OUTSIDE RECORDS SUMMARY | 2024-11-06 02:44 | XMS_ITS | Encounter Summary ---
Author Organization [facility] Address [address] [facility] [address] [place] [address] Care Team Providers Care Horticulture Professor Name Role Phone Leoncio Kilpatrick MD Primary Care Provider [phone] Encounter Details Date Type Department Care Team (Late st Contact Info) Description 03/28/2018 Orders Only [facility] Cardiology [address] [place] [address] ProviderSotero MD [address] [place] [id number] Social History Tobacco Use Types Packs/Day Years Used Date Smoking Tobacco: Former Alcohol Use Standard Drinks/Week Comments Yes 0 (1 standard drink = 0.6 oz pur e alcohol) 1OR 2 DAILY Sex and Gender Information Value Date Recorded Sex Assigned at Not on file Legal Sex Male 3:11 AM CLINICAL RESOURCE MANAGER Gender Identity Not on file Sexual [...] on filedocumented in this encounter Care Teams Horticulture Professor Relationship Specialty Start Date End Date Leoncio Kilpatrick MD [address] [place] [address] PCP - General 04/19/17 06/08/18 documented as of this encounter
--- OUTSIDE RECORDS SUMMARY | 2024-11-06 02:44 | XMS_ITS | Encounter Summary ---
Author Organization [facility] Address [address] [facility] [address] [place] [address] Care Team Providers Care Real Estate Developer Name Role Phone Leoncio Kilpatrick MD Primary Care Provider [phone] Encounter Details Date Type Department Care Team (Late st Contact Info) Description 06/30/[address] 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
--- OUTSIDE RECORDS SUMMARY | 2024-11-06 02:44 | XMS_ITS | Encounter Summary ---
Author Organization [facility] Healthcare Address [address] [place] [address] Care Team Providers Care Manager Of Case Management Name Role Phone Leoncio Kilpatrick MD Primary Care Provider [phone] Reason for Visit * Reason Comments Back Pain Encounter Details Date Type Department Care Team (Latest Contact Info) Description 05/31/2018 1:02 AM CDT - 06/06/2018 3:32 PM CDT Hospital Encounter [facility] [address] [place] [address] Deangelo Loya MD [address] [place] [address] Denise Decker MD [address] [place] [address] Bernardino Penny MD [address] [place] [address] Corazon Slaughter MD [address] [place] [address] Chapito Evans MD [address] [place] [address] Acute midline low back pain, with sciatica presence unspecified (Primary Dx); Closed stable burst fracture of twelfth thoracic vertebra, initial encounter ([facility]); Closed fracture dislocation of lumbar spine, initial encounter (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) Essential hypertension, benign Falls frequently T12 burst fracture ([facility]/HCC) L1 vertebral fracture ([facility]) ETOH abuse COPD (chronic obstructive pulmonary disease) (CMS/HCC) Neuropathy ([facility]/HCC) Major depressive disorder Chronic renal [...] and AFIB without anticoagulation who presents to [facility] Emergency Room after suffering a [...] Status Chemical dependency drug screen Collected (06/02/18 7542) Operative Procedures Performed: None Other Procedures: none [...] MD HCG Deidra Gilliam 06/20/2018 1:[address] [facility] ACUTE CRITICAL CARE TEAM [facility] ACCS [facility] Contact Information for Follow-ups [facility] [address] [place] [phone] Next Steps: Follow up Instructions: you are scheduled to have a chest x-ray prior to your appointment, please arrive early to have this done prior to your appointment time, please call [phone] if you need to reschedule Questions: Instructions for follow-up: you are scheduled to have a chest x-ray prior to your appointment, please arrive early to have this done prior to your appointment time, please call [phone] if you need to reschedule Appointment Date: 06/20/2018 Appointment Time: 1:[address] [facility] Cosigned by Bernardino Penny MD at 06/08/2018 [...] Blood soaks through your bandage. ?? 2016 [employer]. Information is for End User's use only and may not be sold, redistributed or otherwise used for commercial purposes. All illustrations and images included in CareNotes?? are the copyrighted property of [employer]. or [employer]. The above information is an histology aide only. It is not intended as [...] more information? ?? [employer] [address] [place] [address] Phone: Phone: Web Address: [email or web address] Call 911 or have someone else call [...] refuse treatment. The above information is an histology aide only. It is not intended as medical advice for individual conditions or treatments. Talk to your doctor, nurse or pharmacist before following any medical regimen to see if it is safe and effective for you. ?? 2016 [employer]. Information is for End User's use only and may not be sold, redistributed or otherwise used for commercial purposes. All illustrations and images included in CareNotes?? are the copyrighted property of [employer] or [employer]. documented in this encounter Medications at Time [...] ADINA - 06/06/2018 1:57 PM CDT 06/06/18 1156 Discharge Summary Chart reviewed For Medical Necessity Discharge Disposition SNF, Commercial Insurance, Short term Skilled Specify Facility [facility] Facility Contact Number [phone] Discharge Records Transfer Form Completed;Chart Copied Discharge Additional Assistance Does the patient need discharge transport arranged? Yes Has discharge transport been arranged? Yes Details of Transportation [facility] [phone] Trip [id number] What day is the transport expected? 05/30/18 [...] of care provider (see Follow Up Providers) [facility] F: [phone] R: [phone] [place] [phone] Trip [id number] Pt has been accepted at [facility]. Facility was able to accept pt as he does not come up as a traditional sex offender on their database, but rather, pt's record indicates public indecency. [employer] has approved, auth #: [id number]. Facility aware and anticipate pt's arrival. Pt aware and is agreeable. Pt's dtr Adwoa was notified, VM left as she is on vacation. Adwoa had indicated to SW ealrier in the week that is was alright if SW left a VM indicating where pt would be going at discharge. Transportation has been arranged through [facility]. Mode of transport has been discussed with the patient/family, doctors, nurses, and all are agreeable to plan and understand their responsibilities to ensure the safe transfer. Certificate of Medical Necessity completed due to T12, L1 frx. No further social work intervention is anticipated at this time. Adwoa Jefferson LMSW [facility] Social Work [phone] * Monchokendall Renetta, RD - 06/06/2018 12:36 PM CDT Nutrition Assessment Reason for Assessment: Initial Nutrition Assessment Encounter Date: 06/06/18 12:36 PM Patient is a 72 y.o. male with chief complaint of pertinent medical history that includes DM, peripheral neuropathy, COPD with home 02 at 2-3 liters, HTN, CHF, depression, anxiety, CRF, and AFIB without anticoagulation who presents to [facility] Emergency Room after suffering a [...] Soft Diet effective now Question Answer Comment ([facility]) Diet type Regular ([facility]) Diet type Restricted Modified Consistency: Mechanical [...] Supplement tolerance Renetta Rose MS RD LD #[phone] * Torri Marshall DPT - 06/05/2018 3:55 PM CDT Physical Therapy As supervising therapist, I agree with all information documented by PT student Annie Muhammad. 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 I was not involved in this encounter with the patient but am administratively signing this note to close the encounter in [facility]. * Justa Clark NP - 06/05/2018 8:27 AM CDT [facility] Geriatric Trauma Surgery Daily Progress Note [...] and AFIB without anticoagulation who presents to [facility] Emergency Room after suffering a [...] NP, 50 mg at 06/05/18812 ??? multivit hahgjphc-jsfy-NX-calcium (THERA-M) tablet 1 tablet, 1 tablet, oral, [...] Soft Diet effective now Question Answer Comment ([facility]) Diet type Regular ([facility]) Diet type Restricted Modified Consistency: Mechanical [...] Jara NP - 06/04/2018 8:00 AM CDT [facility] Geriatric Trauma Surgery Daily Progress Note [...] and AFIB without anticoagulation who presents to [facility] Emergency Room after suffering a [...] NP, 50 mg at 06/04/18809 ??? multivit yvmcihpv-aeds-AX-calcium (THERA-M) tablet 1 tablet, 1 tablet, oral, [...] Soft Diet effective now Question Answer Comment ([facility]) Diet type Regular ([facility]) Diet type Restricted Modified Consistency: Mechanical [...] Self Support System Children (Adwoa Xiong dtr [phone]) Legal Information Have you reviewed your Advance Directive and is it valid for this stay? No Advance Directive Patient does not have advance directive Prior Level of Functioning Living Arrangement Lives alone;Apartment Behavior Oriented Income Information Income Source Usp/Pension Potential Discharge Needs Discharge Potential SNF Rehab Potential SNF Anticipated discharge level of care [facility] Dialysis No Psychiatric services No Communications Patient choice (Home Health/Hospice) list given to patient/u.s. representative? Yes ([facility] List) Fiduciary Responsibility Patient/Designated decision maker was informed of [facility] fiduciary relationship as necessary Health Insurance Coverage: [employer] Social History: Prior to admission the patient was living alone in his apartment in [place], [place]. Pt reports that he was functioning independently prior to this current hospitalization. Pt's daughter Adwoa Xiong has been at [facility] for support [phone]. Pt states that he has four daughters. Pt isretired. Additional Information: Social work met with the patient/family to obtain assessment information and discuss d/c planning needs. Social work informed the patient/family that d/c recommendations indicate transfer to SNF rehab. Social work provided information on the rehabilitation process and provided information on SNF rehab. Social work provided information on [facility] and emphasized the importance of continuity of care. Social work discussed d/c options to meet the patient's needs and provided a printed list of facilities for review. Patient/family are agreeable to plan and prefer placement at [facility] or [facility] in [place]. Allscripts have been sent. It was brought to 's attn by [facility] (once pt had been accepted) that pt is a registered sex offender and that they can not accommodate his needs. Pt will need a private room and private bathroom if he would be accepted at a facility. Facility must be covered under [employer] insurance as well. Dtr Adwoa aware of [...] 10+ facilities for placement. Adwoa Jefferson LMSW [facility] Social Work [phone] * Justa Clark NP - 06/03/2018 1:32 PM CDT [facility] Geriatric Trauma Surgery Daily Progress Note [...] and AFIB without anticoagulation who presents to [facility] Emergency Room after suffering a [...] 50 mg at 06/03/18 0954 ??? multivit xsckicxh-jpro-RD-calcium (THERA-M) tablet 1 tablet, 1 tablet, oral, [...] Soft Diet effective now Question Answer Comment ([facility]) Diet type Regular ([facility]) Diet type Restricted Modified Consistency: Mechanical [...] evaluated on concurrent CT. Electronically signed by: Lkue Boston M.D. Ct Pelvis Wo Contrast Result [...] images may or may not represent the saxman source data set and thus may contain [...] Clark NP - 06/02/2018 9:18 AM CDT [facility] Geriatric Trauma Surgery Daily Progress Note [...] and AFIB without anticoagulation who presents to [facility] Emergency Room after suffering a [...] NP, 50 mg at 06/02/18857 ??? multivit vcbcnfwa-ebne-SR-calcium (THERA-M) tablet 1 tablet, 1 tablet, oral, [...] images may or may not represent the saxman source data set and thus may contain [...] images may or may not represent the saxman source data set and thus may contain [...] CDTAssociated Order(s): IP CONSULT TO TRAUMA SURGERY [facility] Acute Care Surgery Consultation Encounter Date: 05/31/18 Patient Identification Patient's Primary Care Physician: Leoncio Kilpatrick MD Name: Ludin Mcgiure Age: 72 y.o. Sex: male Reason for [...] loss of consciousness. He came to the [facility] Emergency Department for further evaluation [...] Marc/Attending - Nancy Patient (home) Insurance: Payor: [employer] / Plan: [employer] / Product Type: *No Product type* [...] Diagnosis Date ??? Anxiety ??? Atrial fibrillation ([facility]) ??? Chronic renal failure ??? COPD (chronic obstructive pulmonary disease) ([facility]) ??? Depression ??? Diabetes mellitus ([facility]) ??? Diastolic dysfunction ??? Hypertension ??? On [...] extension 5/5 5/5 Wrist flexion 5/5 5/5 Cargo And Container Inspector 5/5 5/5 Interosseous of hand 5/5 5/5 [...] please call the Orthopaedic Surgery Consult Pager [phone] to be directed to the correct Orthopaedic Surgery resident. ?? If you know the resident's name on the appropriate orthopaedic surgery team, please use [email or web address] to page resident directly. documented in this encounter Nursing Notes * Ragini Joseph RN - 06/06/2018 4:48 PM CDT Patient discharged to [facility] via ambulance accompanied by self. * Ragini Joseph RN - 06/06/2018 3:27 PM CDT Report called to [facility] at [facility] . * Ragini Joseph RN - 06/06/2018 [...] (Get away from me you crazy ladies.) NpEmily made aware of blood pressure. Scheduled metoprolol [...] for patient safety. Ivelisse Childress RN 05/31/18 0034 * Eduarda Judge NP - 05/31/2018 7:39 PM CDT Bed: OBS-01 Expected date: Expected time: Means of arrival: Comments: Jensen Judge NP 08/04/18 1939 * Kimberly Cabrales NP - 05/31/2018 5:56 PM CDT Med list per [facility] pharmacy: Xanax 1 mg PO BID Omeprazole 40 mg PO BID Metoprolol 25 mg PO BID Gabapentin 100 mg PO TID Sertraline 50 mg PO daily Prednisone 5 mg, take one 1/2 tab daily Simvastatin 10 mg PO daily Kimberly Cabrales NP 05/31/18 2857 * Charlotte Vega RN - 05/31/2018 3:08 PM CDT Bed: [facility] Expected date: Expected time: Means of arrival: [...] and affect. Nursing note and vitals reviewed. [facility] MDM Number of Diagnoses or Management [...] TLSO brace and possible additional imaging per medical device sales consultant team. Pt was signed out to [...] RN - 05/31/2018 1:02 AM CDT Bed: [facility] Expected date: 05/30/18 Expected time: 11:47 PM Means of arrival: Ambulance Comments: Adwoa Tyler RN 05/31/18 0102 * Nunu Masterson RN - 05/30/2018 11:45 PM CDT Patient coming from [place]. Fall 2 days ago having back pain. No neuro deficits, moves all extremities. Found to have burst fracture of T12 and L1. Needing MRI. Accepted by MD Palmer with [facility]. MD Loya on the line for report from MD Weeks. Level 3 Nunu Masterson RN 05/30/18 7464 documented in this encounter Miscellaneous Notes * [...] Wound Status Healing Healing Healing Site Assessment Clean;Dry;Intact;Hominy Clean;Moist;Hominy Clean;Dry;Intact;Hominy DUNIA Carla-wound Assessment Color normal for ethnicity;Dry;Intact;Flaky Flaky Color normal for ethnicity;Dry;Intact Closure Unapproximated Drainage Amount Scant Drainage Description Serosanguineous Drainage Odor No odor Interventions Cleansed;Site care Dressing Status Clean/Dry/Intact Changed;Drainage shadowing Clean/Dry/Intact Intact;Dry Dressing Foam Foam Foam Foam 06/04/18 0900 Wound Status Healing Site Assessment Clean;Hominy Carla-wound Assessment Color normal for ethnicity Closure [...] Recent Administrations labetalol (NORMODYNE,TRANDATE) injection 10 mg [[id number]] Ordering Provider: Isaak Edward MD Status: Completed (Past End Date/Time) Ordered On: 05/31/18 0624 Starts/Ends: 05/31/18 0625 - 05/31/18 0640 Dose (Remaining/Total): 10 mg (0/1) Route: intravenous Frequency: Once Rate/Duration: -- / -- Timestamps Action Dose Route Other Information 05/31/18 0640 Given 10 mg intravenous Performed by: Nichol Wade RN acetaminophen (TYLENOL) tablet 1,000 mg [[id number]] Ordering Provider: Cheyenne Gresham MD Status: Completed [...] 5 mg (0/1) Route: nebulization Frequency: Once (respiratory care practitioner) Rate/Duration: -- / -- Timestamps Action Dose Route Other Information 05/31/181647 Given 5 mg nebulization Performed by: Aurora Conn, HOOKER OFF ipratropium (ATROVENT) 0.02 % nebulizer solution 0.5 mg [] Ordering Provider: Kimberly Cabrales NP Status: Completed (Past End Date/Time) Ordered On: 05/31/181605 Starts/Ends: 05/31/181606 - 05/31/181647 Dose (Remaining/Total): 0.5 mg (0/1) Route: nebulization Frequency: Once (respiratory care practitioner) Rate/Duration: -- / -- Timestamps Action Dose Route Other Information 05/31/181647 Given 0.5 mg nebulization Performed by: Aurora Conn, MARY morphine injection 4 mg [[id number]] Ordering Provider: Corazon Slaughter MD Status: Completed (Past End Date/Time) Ordered On: 05/31/182315 Starts/Ends: 05/31/182316 - 05/31/182322 Dose (Remaining/Total): 4 mg (0/1) Route: intravenous Frequency: Once Rate/Duration: -- / -- Timestamps Action Dose Route Other Information 05/31/182322 Given 4 mg intravenous Performed by: Ivelisse Childress RN haloperidol (HALDOL) injection 5 mg [[id number]] Ordering Provider: Paul Pires MD Status: Completed [...] tablet 1,000 mg [] Ordering Provider: Shahnaz Coot MD Status: Dispensed Ordered On: 06/01/18604 Start: [...] Abrams RN sertraline (ZOLOFT) tablet 50 mg [[id number]] Ordering Provider: Antonietta Dunham NP Status: Dispensed Ordered On: 06/01/18649 Start: 06/01/18 09 Dose (Remaining/Total): 50 mg (--/--) Route: oral Frequency: Daily Rate/Duration: -- / -- Timestamps Action Dose Route Other Information 06/05/18812 Given 50 mg oral Performed by: Cheryl Benito RN simvastatin (ZOCOR) tablet 10 mg [[id number]] Ordering Provider: Antonietta Dunham NP Status: Dispensed Ordered On: 06/01/18649 Start: 06/01/182099 Dose (Remaining/Total): 10 mg (--/--) Route: oral Frequency: Nightly Rate/Duration: -- / -- Timestamps Action Dose Route Other Information 06/05/182148 Given 10 mg oral Performed by: Clarisse Abrams RN chlordiazePOXIDE (LIBRIUM) capsule 25 mg [[id number]] Ordering Provider: Shahnaz Coto MD Status: Dispensed [...] Woodall RN chlordiazePOXIDE (LIBRIUM) capsule 25 mg [[id number]] Ordering Provider: Shahnaz Coto MD Status: Dispensed [...] RN thiamine (VITAMIN B-1) tablet 100 mg [[id number]] Ordering Provider: Shahnaz Coto MD Status: Completed (Past End Date/Time) Ordered On: 06/01/18808 Starts/Ends: 06/01/18899 - 06/05/18812 Dose (Remaining/Total): 100 mg (0/5) Route: oral Frequency: Daily Rate/Duration: -- / -- Timestamps Action Dose Route Other Information 06/05/18812 Given 100 mg oral Performed by: Cheryl Benito RN folic acid (FOLVITE) tablet 1 mg [[id number]] Ordering Provider: Shahnaz Coto MD Status: Completed (Past End Date/Time) Ordered On: 06/01/18808 Starts/Ends: 06/01/18899 - 06/05/18813 Dose (Remaining/Total): 1 mg (0/5) Route: oral Frequency: Daily Rate/Duration: -- / -- Timestamps Action Dose Route Other Information 06/05/18813 Given 1 mg oral Performed by: Cheryl Benito RN multivit xjbqvzxw-tlzd-SI-calcium (THERA-M) tablet 1 tablet [[id number]] Ordering Provider: Shahnaz Coto MD Status: Dispensed Ordered On: 06/01/18808 Start: 06/01/18899 Dose (Remaining/Total): 1 tablet (--/--) Route: oral Frequency: Daily Rate/Duration: -- / -- Timestamps Action Dose Route Other Information 06/05/18812 Given 1 tablet oral Performed by: Cheryl Benito RN losartan (COZAAR) tablet 50 mg [[id number]] Ordering Provider: Justa Clark NP Status: Dispensed Ordered On: 06/02/18910 Start: 08/06/18 0945 Dose (Remaining/Total): 50 mg (--/--) Route: oral Frequency: Daily Rate/Duration: -- / -- Timestamps Action Dose Route Other Information 06/05/18812 Given 50 mg oral Performed by: Cheryl Benito RN predniSONE (DELTASONE) tablet 5 mg [[id number]] Ordering Provider: Justa Clark NP Status: Dispensed Ordered On: 06/02/18910 Start: 06/02/18944 Dose (Remaining/Total): 5 mg (--/--) Route: oral Frequency: Daily Rate/Duration: -- / -- Timestamps Action Dose Route Other Information 06/05/18812 Given 5 mg oral Performed by: Cheryl Benito RN enoxaparin (LOVENOX) syringe 30 mg [[id number]] Ordering Provider: Justa Clark NP Status: Dispensed Ordered On: 06/02/1840 Start: 06/02/18 101 Dose (Remaining/Total): 30 mg (--/--) Route: subcutaneous Frequency: Every 12 hours scheduled Rate/Duration: -- / -- Timestamps Action Dose Route / Site Other Information 06/05/182148 Given 30 mg subcutaneous Left Lower Abdomen Performed by: Clarises Abrams RN ipratropium (ATROVENT) 0.02 % nebulizer solution 0.5 mg [[id number]] Ordering Provider: Bernardino Penny MD Status: Dispensed Ordered On: 06/02/18 1454 Start: 06/02/18 1600 Dose (Remaining/Total): 0.5 mg (--/--) Route: nebulization Frequency: 4 times daily (respiratory care practitioner) Rate/Duration: -- / -- Timestamps Action Dose Route Other Information 06/05/18 1650 Given 0.5 mg nebulization Performed by: Harini Barroso RRT albuterol (PROVENTIL,VENTOLIN) 2.5 mg/0.5 mL nebulizer solution 2.5 mg [[id number]] Ordering Provider: Bernardino Penny MD Status: Dispensed Ordered On: 06/02/18 1454 Start: 06/02/18 1600 Dose (Remaining/Total): 2.5 mg (--/--) Route: nebulization Frequency: 4 times daily (respiratory care practitioner) Rate/Duration: -- / -- Timestamps Action Dose Route Other Information 06/05/18 1650 Given 2.5 mg nebulization Performed by: Harini Barroso, HOOKER OFF , OT Eval and Treat Last 72 [...] Mobility Equipment -- Wheeled walker;Cane Level of [place] -- Independent with ADLs and functional transfers [place] with limited community amb using either WW or [place]. Lives With -- Alone Receives Help From -- Family available nursing care partner Prior Function Comments -- Pt stated another [...] restrictions Problem List Comments -- PT diagnoses: [place] 5A, Pattern 4G, Pattern 6C PT Recommendation/Plan [...] List Comments -- -- -- PT diagnoses: [place] 5A, Pattern 4G, Pattern 6C -- Recommendation/Plan [...] facility coverage. [facility] has been working with [place] to collaboratea plan for pt. [facility] has been contacted as well for [...] considered to be a sex offender in [place]. Pt has been denied placement by 15+ facilties and pt will require a private room/bathroom due to his status. Facility must be [id number] to any schools as well. Pt also [...] Home Mobility Equipment Wheeled walker;Cane Level of [place] Independent with ADLs and functional transfers [place] with limited community amb using either WW or [place]. Lives With Alone Receives Help From Family available nursing care partner Prior Function Comments Pt stated another fall [...] mobility;Pain;Orthopedic restrictions Problem List Comments PT diagnoses: [place] 5A, Pattern 4G, Pattern 6C PT Recommendation/Plan [...] -- -- Problem List Comments PT diagnoses: [place] 5A, Pattern 4G, Pattern 6C -- -- [...] 0659 06/02/18 07 - 06/03/18 0659 Total [id number] Total Intake (ml) -- -- -- -- [...] Recent Administrations labetalol (NORMODYNE,TRANDATE) injection 10 mg [[id number]] Ordering Provider: Isaak Edward MD Status: Completed (Past End Date/Time) Ordered On: 05/31/18 0624 Starts/Ends: 05/31/18 0625 - 05/31/18 0640 Dose (Remaining/Total): 10 mg (0/1) Route: intravenous Frequency: Once Rate/Duration: -- / -- Timestamps Action Dose Route Other Information 05/31/18 0640 Given 10 mg intravenous Performed by: Nichol Wade RN acetaminophen (TYLENOL) tablet 1,000 mg [[id number]] Ordering Provider: Cheyenne Gresham MD Status: Completed [...] 5 mg (0/1) Route: nebulization Frequency: Once (respiratory care practitioner) Rate/Duration: -- / -- Timestamps Action Dose Route Other Information 05/31/181647 Given 5 mg nebulization Performed by: Aurora Conn, MARY ipratropium (ATROVENT) 0.02 % nebulizer solution 0.5 mg [] Ordering Provider: Kimberly Cabrales NP Status: Completed (Past End Date/Time) Ordered On: 05/31/181605 Starts/Ends: 05/31/181606 - 05/31/181647 Dose (Remaining/Total): 0.5 mg (0/1) Route: nebulization Frequency: Once (respiratory care practitioner) Rate/Duration: -- / -- Timestamps Action Dose [...] Renetta Vazquez simvastatin (ZOCOR) tablet 10 mg [[id number]] Ordering Provider: Antonietta Dunham NP Status: Dispensed Ordered On: 06/01/18649 Start: 06/01/18 2100 Dose (Remaining/Total): 10 mg (--/--) Route: oral Frequency: Nightly Rate/Duration: -- / -- Timestamps Action Dose Route Other Information 06/02/182035 Given 10 mg oral Performed by: Mony Lee RN chlordiazePOXIDE (LIBRIUM) capsule 25 mg [[id number]] Ordering Provider: Shahnaz Coto MD Status: Dispensed [...] Woodall RN chlordiazePOXIDE (LIBRIUM) capsule 25 mg [[id number]] Ordering Provider: Shahnaz Coto MD Status: Dispensed [...] RN thiamine (VITAMIN B-1) tablet 100 mg [[id number]] Ordering Provider: Shahnaz Coto MD Status: Dispensed Ordered On: 06/01/18808 Starts/Ends: 06/01/18899 - 06/06/18858 Dose (Remaining/Total): 100 mg (2/5) Route: oral Frequency: Daily Rate/Duration: -- / -- Timestamps Action Dose Route Other Information 06/03/18953 Given 100 mg oral Performed by: Renetta Vazquez folic acid (FOLVITE) tablet 1 mg [[id number]] Ordering Provider: Shahnaz Coto MD Status: Dispensed Ordered On: 06/01/18808 Starts/Ends: 06/01/18899 - 06/06/1859 Dose (Remaining/Total): 1 mg (2/5) Route: oral Frequency: Daily Rate/Duration: -- / -- Timestamps Action Dose Route Other Information 06/03/18954 Given 1 mg oral Performed by: Renetta Vazquez multivit rqfgpzfl-psrm-RC-calcium (THERA-M) tablet 1 tablet [[id number]] Ordering Provider: Shahnaz Coto MD Status: Dispensed Ordered On: 06/01/18808 Start: 06/01/18899 Dose (Remaining/Total): 1 tablet (--/--) Route: oral Frequency: Daily Rate/Duration: -- / -- Timestamps Action Dose Route Other Information 06/03/18953 Given 1 tablet oral Performed by: Renetta Vazquez losartan (COZAAR) tablet 50 mg [[id number]] Ordering Provider: Justa Clark NP Status: Dispensed Ordered On: 06/02/18910 Start: 06/02/1845 Dose (Remaining/Total): 50 mg (--/--) Route: oral Frequency: Daily Rate/Duration: -- / -- Timestamps Action Dose Route Other Information 06/03/18 0954 Given 50 mg oral Performed by: Renetta Vazquez predniSONE (DELTASONE) tablet 5 mg [[id number]] Ordering Provider: Justa Clrak NP Status: Dispensed Ordered On: 06/02/18 0911 Start: 06/02/18 0945 Dose (Remaining/Total): 5 mg (--/--) Route: oral Frequency: Daily Rate/Duration: -- / -- Timestamps Action Dose Route Other Information 06/03/1855 Given 5 mg oral Performed by: Renetta Vazquez enoxaparin (LOVENOX) syringe 30 mg [[id number]] Ordering Provider: Justa Clark NP Status: Dispensed Ordered On: 06/02/18939 Start: 06/02/18 1015 Dose (Remaining/Total): 30 mg (--/--) Route: subcutaneous Frequency: Every 12 hours scheduled Rate/Duration: -- / -- Timestamps Action Dose Route / Site Other Information 06/03/1853 Given 30 mg subcutaneous Left Lower Abdomen Performed by: Renetta Vazquez ipratropium (ATROVENT) 0.02 % nebulizer solution 0.5 mg [[id number]] Ordering Provider: Bernardino Penny MD Status: Dispensed Ordered On: 06/02/181453 Start: 06/02/18 1600 Dose (Remaining/Total): 0.5 mg (--/--) Route: nebulization Frequency: 4 times daily (respiratory care practitioner) Rate/Duration: -- / -- Timestamps Action Dose Route Other Information 06/03/18 075 Given 0.5 mg nebulization Performed by: Sheridan Mccauley RRT albuterol (PROVENTIL,VENTOLIN) 2.5 mg/0.5 mL nebulizer solution 2.5 mg [[id number]] Ordering Provider: Bernardino Penny MD Status: Dispensed Ordered On: 06/02/181453 Start: 06/02/18 1600 Dose (Remaining/Total): 2.5 mg (--/--) Route: nebulization Frequency: 4 times daily (respiratory care practitioner) Rate/Duration: -- / -- Timestamps Action Dose Route Other Information 06/03/18 0754 Given 2.5 mg nebulization Performed by: Sheridan Mccauley, HOOKER OFF , OT Eval and Treat Last 72 [...] he is feeling that day. Level of [place] Independent with ADLs and functional transfers;Needs assistance [...] dm and ETOH. Pt is here at [facility] for a broken back. Pt is agitated. Pt's breath sounds: diminished/ clear. Pt states that he does spirvia at home sometimes. Pt is being changed to albuterol 2.5mg q4 prn and atrovent o.5mg q4 prn at pt's request and [employer]'s approval. * Assessment & Plan Note - [...] L1 burst fracture. Pt was transferred to [facility] for further eval. No neuro deficit [...] removed By: Kimberly Cabrales NP Time: 05/31 1363 Comment: Spoke with ortho - OK to remove TSLO brace as long as patient remains supine for MRI. Spoke with ACCS Bernardino FUENTES regarding admission for PT/Ot. Accepted and order placed for admission. ACCS to assess pt in ED prior to floor placement By: Kimberly Cabrales NP Time: 05/31 9001 Comment: Called [facility] - Pt is NOT on [...] removed By: Kimberly Cabrales NP Time: 05/31 6826 Comment: Spoke with ortho - OK to remove TSLO brace as long as patient remains supine for MRI. Spoke with ACCS Bernardion FUENTES regarding admission for PT/Ot. Accepted and order placed for admission. ACCS to assess pt in ED prior to floor placement By: Kimberly Cabrales NP Time: 05/31 7053 Comment: Called [facility] - Pt is NOT on [...] L1 burst fracture. Pt was transferred to [facility] for further eval. No neuro deficit [...] fracture of twelfth thoracic vertebra, initial encounter ([facility]) 3. Closed fracture dislocation of lumbar spine, initial encounter ([facility]) 4. Accidental fall, initial encounter I, Denise [...] CDT) Creatinine 1.25 0.80 - 1.30 mg/dL [facility] Blood specimen (specimen) 06/05/2018 10:19 PM CDT 06/05/2018 10:46 PM CDT Prosper [facility] - 06/05/2018 11:11 PM CDT us Bernardino Penny MD LAB BLOOD ORDERABLES Fin al Result Performing Organization Address City/[facility]/ZIP Co de Phone Number [facility] [place] [address] * POCT glucose (06/03/2018 11:32 AM CDT) Glucose, POC 169 70 - 199 mg/dL [facility] Blood specimen (specimen) 06/03/2018 11:32 AM CDT 06/03/2018 11:32 AM CDT Narrative [facility] - 06/03/2018 11:33 AM CDT us Bernardino Penny MD LAB POCT ORDERABLES - DE VICE Final Result Performing Organization Address City/[facility]/ZIP Co de Phone Number [facility] [place] [employer] [place] [address] * POCT glucose (06/03/2018 8:10 AM CDT) Glucose, POC 117 70 - 199 mg/dL [facility] Blood specimen (specimen) 06/03/2018 8:10 AM CDT 06/03/2018 8:10 AM CDT Narrative [facility] - 06/03/2018 8:14 AM CDT us Bernardino Penny MD LAB POCT ORDERABLES - DE VICE Final Result [facility] [place] [address] * XR Chest Pa Lateral 2 Views [...] CDT) PT 11.4 8.5 - 13.0 sec [facility] INR 0.99 0.80 - 1.21 [facility] Comment: Interpretive Data Inpatient therapeutic ranges* Atrial fibrillation ?2.0-3.0 INR Venous thrombo-embolism ?2.0-3.0 INR Bioprosthetic heart valve ?* Mechanical heart valve, bileaflet or tilting disk,aortic position ? 2.0-3.0 INR All other,or bileaflet or tilting disk, in mitral position ? 2.5-3.5 INR *See the pharmacy resource directory (PHRED) for an updated copy of the Tool Book at [email or web address] Current Interpretive Data was last revised 2012. Blood specimen (specimen) 06/01/2018 9:02 PM CDT 06/01/2018 9:52 PM CDT Narrative [facility] - 06/01/2018 10:24 PM CDT us Bernardino Penny MD LAB BLOOD ORDERABLES Fin al Result Performing Organization Address [facility] Co de Phone Number [facility] [place] [address] * aPTT (06/01/2018 9:02 PM CDT) [facility] Signature aPTT 36.5 25.0 - 37.[address] [facility] Comment: Interpretive Data Therapeutic heparin range:60.0 - 94.0 sec based on correlation with therapeutic heparin activity range of 0.3 -0.7 Units/mL. Current interpretive data was last revised on 2011. Blood specimen (specimen) 06/01/2018 9:02 PM CDT 06/01/2018 9:52 PM CDT Narrative [facility] - 06/01/2018 10:24 PM CDT us Bernardino Penny MD LAB BLOOD ORDERABLES Fin al Result Performing Organization Address City/[facility]/ZIP Co de Phone Number [facility] Department [place] [address] * Basic metabolic panel (06/01/2018 9:02 PM CDT) Pathologist [facility] Sodium 138 135 - 145 mmol/L [facility] Potassium, pl 4.0 3.3 - 4.9 mmol/L [facility] Chloride 100 97 - 110 mmol/L [facility] CO2 27 22 - 32 mmol/L [facility] Anion gap 11 2 - 15 mmol/L [facility] BUN 17 8 - 25 mg/dL [facility] Creatinine 1.26 0.80 - 1.30 mg/dL [facility] Glucose 106 70 - 199 mg/dL [facility] Comment: Interpretive Data Fasting glucose >/= 126 [...] 2017. Calcium 9.0 8.5 - 10.3 mg/dL [facility] Blood specimen (specimen) 06/01/2018 9:02 PM CDT 06/01/2018 9:55 PM CDT Narrative [facility] - 06/01/2018 10:21 PM CDT us Antonietta Dunham NP LAB BLOOD ORDERABLES Ellen l Result Performing Organization Address [facility]/ZIP Co de Phone Number [facility] [place] [address] * (ABNORMAL) CBC without differential (06/01/2018 9:02 PM CDT) Pathologist [facility] WBC 13.4(H) 3.8 - 9.9 K/cumm [facility] Hgb 14.0 13.0 - 17.5 g/dL [facility] Hct 43.5 38.9 - 50.3 % [facility] Plt 236 150 - 400 K/cumm [facility] MPV 9.6 9.1 - 12.3 fL [facility] RBC 4.77 4.30 - 5.80 M/cumm [facility] MCV 91.2 81.3 - 96.4 fL [facility] MCH 29.4 27.1 - 33.3 pg [facility] MCHC 32.2(L) 32.3 - 35.7 g/dL [facility] RDW CV 13.4 11.1 - 14.9 % [facility] RDW SD 44.7 35.7 - 48.1 fL [facility] NRBC abs 0.00 0.00 - 0.01 K/cumm [facility] Blood specimen (specimen) 06/01/2018 9:02 PM CDT 06/01/2018 9:55 PM CDT Narrative [facility] - 06/01/2018 10:05 PM CDT us Antonietta Dunham NP LAB BLOOD ORDERABLES Ellen christian Result [facility] [place] [address] * XR Spine Thoracic 2 Views (06/01/2018 [...] Glucose, POC 123 70 - 199 mg/dL [facility] Blood specimen (specimen) 06/01/2018 11:56 AM CDT 06/01/2018 11:56 AM CDT Narrative [facility] - 06/01/2018 11:58 AM CDT us Bernardino Penny MD LAB POCT ORDERABLES - DE VICE Final Result [facility] Department [place] [address] * POCT glucose (06/01/2018 7:13 AM CDT) Glucose, POC 102 70 - 199 mg/dL [facility] Blood specimen (specimen) 06/01/2018 7:13 AM CDT 06/01/2018 7:13 AM CDT Narrative [facility] - 06/01/2018 7:14 AM CDT us Bernardino Penny MD LAB POCT ORDERABLES - DE VICE Final Result ERNESTO [facility] [place] [address] * XR Pelvis 3 or More Views [...] by: Luke Boston M.D. us Eduarda Judge [employer] IMG XR PROCEDURES Fi nal Result * [...] images may or may not represent the saxman source data set and thus may contain changes that may lower the accuracy of this second-opinion interpretation. Electronically signed by: Annabelle Canseco M.D. Narrative 06/01/2018 11:46 AM CDT EXAMINATION: RADIOLOGY CONSULTATION ON OUTSIDE IMAGING STUDY STUDY INITIALLY PERFORMED: 05/30/2018 at [facility]. TYPE OF STUDY: Multiple computed tomographic images [...] IMAGING STUDY STUDY INITIALLY PERFORMED: 05/30/2018 at [facility]. TYPE OF STUDY: Multiple computed tomographic images [...] images may or may not represent the saxman source data set and thus may contain [...] signed by: Luke Boston M.D. Kimberly Cabrales [employer] IMG XR PROCEDURES Final Resul t * [...] [facility]ERNER BJ Neutrophil pct 78.5 % [facility] Comment: Interpretive Data Percent cell count reference ranges are not reported, since discordance with absolute values may lead to misinterpretation of CBC data. Current Interpretive Data was last revised on 2018. Imm gran pct 0.4 % [facility] Comment: Interpretive Data Percent cell count reference ranges are not reported, since discordance with absolute values may lead to misinterpretation of CBC data. Current Interpretive Data was last revised on 2018. Lymphocyte pct 10.8 % [facility] Comment: Interpretive Data Percent cell count [...] on 2018. Eosinophil pct 1.1 % [facility] Comment: Interpretive Data Percent cell count reference ranges are not reported, since discordance with absolute values may lead to misinterpretation of CBC data. Current Interpretive Data was last revised on 2018. Basophil pct 0.4 % [facility] Comment: Interpretive Data Percent cell count reference ranges are not reported, since discordance with absolute values may lead to misinterpretation of CBC data. Current Interpretive Data was last revised on 2018. Blood specimen (specimen) 05/31/2018 1:18 AM CDT 05/31/2018 2:43 AM CDT Narrative [facility] - 05/31/2018 2:51 AM CDT us Isaak Edward MD LAB BLOOD ORDERABLES Final Result [facility] Department [place] [address] * (ABNORMAL) Basic metabolic panel (05/31/2018 1:18 AM CDT) Sodium 133(L) 135 - 145 mmol/L [facility] Potassium, pl 4.1 3.3 - 4.9 mmol/L [facility] Comment:Hemolyzed; (++); pot assium value may be falsely elevated by as much as 0.3 - 0.5 mmol/L. Suggest redraw and reanalysis. Chloride 96(L) 97 - 110 mmol/L [facility] CO2 23 22 - 32 mmol/L [facility] Anion gap 14 2 - 15 mmol/L [facility] BUN 11 8 - 25 mg/dL [facility] Creatinine 0.96 0.80 - 1.30 mg/dL [facility] Glucose 76 70 - 199 mg/dL [facility] Comment: Interpretive Data Fasting glucose >/= 126 [...] 2017. Calcium 8.7 8.5 - 10.3 mg/dL [facility] Blood specimen (specimen) 05/31/2018 1:18 AM CDT 05/31/2018 2:43 AM CDT Narrative [facility] - 05/31/2018 3:11 AM CDT THE BJ COLLECTION LOCATION IS [facility] CC-06R us Isaak Edward MD LAB BLOOD ORDERABLES Final Result [facility] [place] [address] * (ABNORMAL) CBC with auto differential (05/31/2018 1:18 AM CDT) WBC 12.8(H) 3.8 - 9.9 K/cumm [facility] Hgb 13.0 13.0 - 17.5 g/dL [facility] Hct 38.5(L) 38.9 - 50.3 % [facility] Plt 196 150 - 400 K/cumm [facility] MPV 10.1 9.1 - 12.3 fL [facility] RBC 4.38 4.30 - 5.80 M/cumm [facility] MCV 87.9 81.3 - 96.4 fL [facility] MCH 29.7 27.1 - 33.3 pg [facility] MCHC 33.8 32.3 - 35.7 g/dL [facility] RDW CV 13.0 11.1 - 14.9 % [facility] RDW SD 42.1 35.7 - 48.1 fL [facility] NRBC abs 0.00 0.00 - 0.01 K/cumm [facility] Blood specimen (specimen) 05/31/2018 1:18 AM CDT 05/31/2018 2:43 AM CDT Narrative [facility] - 05/31/2018 2:51 AM CDT THE BJ COLLECTION LOCATION IS [facility] CC-06R us Isaak Edward MD LAB BLOOD ORDERABLES Final Result [facility] [place] [address] documented in this encounter Visit Diagnoses Diagnosis Acute midline low back pain, with sciatica presence unspecified- Primary Closed stable burst fracture of twelfth thoracic vertebra, initial encounter ([facility]) Closed fracture dislocation of lumbar spine, initial encounter ([facility]) Accidental fall, initial encounter Atrial flutter ([facility]) ([facility]) Atrial flutter T12 burst fracture ([facility]) L1 vertebral fracture ([facility]) ([facility]) ETOH abuse Nondependent alcohol abuse, unspecified drinking behavior COPD (chronic obstructive pulmonary disease) ([facility]) Chronic airway obstruction, not elsewhere classified Essential hypertension, benign On home oxygen therapy Dependence on supplemental oxygen Neuropathy ([facility]) Mononeuritis of unspecified site Major depressive disorder [...] mg 2.5 mg, nebulization, Every 4 hours (respiratory care practitioner), First dose (after last modification) on 06/02/18 at 1200 Given 06/02/2018 12:07 PM CDT 2.5 mg albuterol (PROVENTIL,VENTOLIN) 2.5 mg/0.5 mL nebulizer solution 2.5 mg 2.5 mg, nebulization, 4 times daily (respiratory care practitioner), First dose (after last modification) on 06/02/18 at 1600 Given 06/06/2018 3:25 PM CDT 2.5 mg Given 06/06/2018 11:10 AM CDT 2.5 mg Given 06/05/2018 4:50 PM CDT 2.5 mg albuterol (PROVENTIL,VENTOLIN) 2.5 mg/0.5 mL nebulizer solution 5 mg 5 mg, nebulization, Once (respiratory care practitioner), On 05/31/18 at 1607, For 1 dose, [...] solution 0.5 mg 0.5 mg, nebulization, Once (respiratory care practitioner), On 05/31/18 at 1607, For 1 dose, Indications: COPD ExacerbationIndications:COPD Exacerbation Given 05/31/2018 4:48 PM CDT 0.5 mg ipratropium (ATROVENT) 0.02 % nebulizer solution 0.5 mg 0.5 mg, nebulization, Every 4 hours while awake (respiratory care practitioner), First dose (after last modification) on Sat06/02/18 at 1200 Given 06/02/2018 12:07 PM CDT 0.5 mg ipratropium (ATROVENT) 0.02 % nebulizer solution 0.5 mg 0.5 mg, nebulization, 4 times daily (respiratory care practitioner), First dose (after last modification) on Sat06/02/18 [...] 05/31/2018 11:23 PM CDT 4 mg multivit yurlonhh-bgtg-DP-calcium (THERA-M) tablet 1 tablet 1 tablet, oral, [...] 1) 2.5 mg, nebulization, 4 times daily (respiratory care practitioner), First dose (after last modification) on Sat06/02/18 at 1600 0941 (Given - Provider: Mony Brock, HOOKER OFF - Comment: care coordination)1407 (Given - Provider: Mony Brock, HOOKER OFF - Comment: care coordination)1620 (Given - Provider: Shar Barahona, HOOKER OFF)1959 (Given - Provider: Adrianna Eckert, HOOKER OFF) 0733 (Given - Provider: Harini Barroso, HOOKER OFF)1351 (Not Given - Provider: Harini Barroso, HOOKER OFF - Reason: Patient not available)1650 (Given - Provider: Harini Barroso, HOOKER OFF)2057 (Not Given - Provider: Kayla Valladares RRT - Reason: Patient/family refused) 0901 (Not Given - Provider: Edwar Zapata, HOOKER OFF - Reason: Patient/family refused)1110 (Given - Provider: Edwar Zapata, MARY)1525 (Given - Provider: Poncho Shaffer, MARY) enoxaparin (LOVENOX) syringe 30 mg 30 mg, subcutaneous, Every 12 hours scheduled, First dose on Sat06/02/18 at 1015, Indications: Deep Vein Thrombosis Prevention 0811 (Given - Provider: Molly Miller RN)2035 (Given - Provider: Clairsse Abrams, PAUL) 08 (Given - Provider: Cheryl [...] 1) 0.5 mg, nebulization, 4 times daily (respiratory care practitioner), First dose (after last modification) on 06/02/18 at 1600 0942 (Given - Provider: Mony Brock, HOOKER OFF - Comment: care coordination)1407 (Given - Provider: Mony Brock HOOKER OFF - Comment: care coordination)1620 (Given - Provider: Shar Barahona, HOOKER OFF)1959 (Given - Provider: Adrianna Eckert, HOOKER OFF) 0733 (Given - Provider: Harini Barroso, HOOKER OFF)1351 (Not Given - Provider: Harini Barroso HOOKER OFF - Reason: Patient not available)1650 (Given - Provider: Harini Barroso HOOKER OFF)205 (Not Given - Provider: Kayla Valladares, HOOKER OFF - Reason: Patient/family refused) 0901 (Not Given - Provider: Edwar Zapata, HOOKER OFF - Reason: Patient/family refused)1110 (Given - Provider: Edwar Zapata, HOOKER OFF)1525 (Given - Provider: Poncho Shaffer, MARY) lidocaine [...] (Given - Provider: Ragini Joseph RN) multivit pjuvsafm-kwkh-TI-calc ium (THERA-M) tablet 1 tablet 1 tablet, [...] RN) 0107 (Given - Provider: Clarisse Abrams RN)1440 (Given - Provider: Clarisse Abrams, PAUL)7503 (Given - Provider: Ragini Joseph, RN)0917 (Given - Provider: Ragini Joseph, RN) Linked Groups Order Group 1: albuterol (PROVENTIL,VENTOLIN) 2.5 mg/0.5 mL nebulizer solution 2.5 mgJump to med 2.5 mg, nebulization, 4 times daily (respiratory care practitioner), First dose (after last modification) on Sat06/02/18 at 1600 And ipratropium (ATROVENT) 0.02 % nebulizer solution 0.5 mgJump to med 0.5 mg, nebulization, 4 times daily (respiratory care practitioner), First dose (after last modification) on Sat06/02/18 [...] 05/31/2018 documented in this encounter Care Teams Manager Of Case Management Relationship Specialty Start Date End Date Leoncio Kilpatrick MD [address] [place] [address] PCP - General 04/19/17 06/08/18 documented as of this encounter
--- OUTSIDE RECORDS SUMMARY | 2024-11-06 02:44 | XMS_ITS | Encounter Summary ---
Author Organization [facility] Address [address] [place] [address] Care Team Providers Care Data Processing Specialist Name Role Phone Leoncio Kilpatrick MD Primary Care Provider [phone] Encounter Details Date Type Department Care Team (Late st Contact Info) Description 04/28/2022 Orders Only [facility] Cardiology [address] [place] [address] Jesse Schumacher MD [address] [place] [id number] Social History Tobacco Use Types Packs/Day Years Used Date Smoking Tobacco: Former Alcohol Use Standard Drinks/Week Comments Yes 0 (1 standard drink = 0.6 oz pur e alcohol) 1OR 2 DAILY Sex and Gender Information Value Date Recorded Sex Assigned at Not on file Legal Sex Male 3:11 AM [employer] Gender Identity Not on file Sexual [...] on filedocumented in this encounter Care Teams Data Processing Specialist Relationship Specialty Start Date End Date Leoncio Kilpatrick MD [address] [place] [address] PCP - General 06/09/18 documented as of this encounter
--- OUTSIDE RECORDS SUMMARY | 2024-11-06 02:44 | XMS_ITS | Encounter Summary ---
Author Organization [facility] Address [address] [place] [address] Care Team Providers Care Belt Sander Name Role Phone Leoncio Kilpatrick MD Primary Care Provider [phone] Encounter Details Date Type Department Care Team (Late st Contact Info) Description 06/29/2020 Orders Only [facility] Cardiology [address] [place] [address] Destin Bob MD [address] [place] [address] Social History Tobacco Use Types Packs/Day Years Used Date Smoking Tobacco: Former Alcohol Use Standard Drinks/Week Comments Yes 0 (1 standard drink = 0.6 oz pur e alcohol) 1OR 2 DAILY Sex and Gender Information Value Date Recorded Sex Assigned at Not on file 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
--- OUTSIDE RECORDS SUMMARY | 2024-11-06 02:44 | XMS_ITS | Encounter Summary ---
Author Organization [facility] Address [address] [place] [address] Care Team Providers Care Cartridge Gauger Name Role Phone Leoncio Kilpatrick MD Primary Care Provider [phone] Encounter Details Date Type Department Care Team (Late st Contact Info) Description 12/31/2019 Orders Only [facility] Cardiology [address] [place] [address] Angely Rowe MD [address] [place] [address] Social History Tobacco Use Types Packs/Day Years Used Date Smoking Tobacco: Former Alcohol Use Standard Drinks/Week Comments Yes 0 (1 standard drink = 0.6 oz pur e alcohol) 1OR 2 DAILY Sex and Gender Information Value Date Recorded Sex Assigned at Not on file 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
--- OUTSIDE RECORDS SUMMARY | 2024-11-06 02:44 | XMS_ITS | Clinical Summary ---
Author Organization [facility] Address [id number] [place] [address] Care Team Providers Care Travel Accommodations Rater Name Role Phone Leoncio Kilpatrick MD Primary Care Provider [phone] Allergies Active Allergy Reactions Criticality Noted Date [...] heart failure. 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 Gender Identity Not on file Sexual Orientation [...] CDT Plan of Treatment Not on file Insurance [facility] Member Subscriber Plan / Payer (Ef fective 2021-Present) Name:Ludin Mcguire Relation to Subscriber:Self Name:Ludin Mcguire Payer ID:[id number] ([facility]) Type:MEDICARE RISK OTHER Address: [facility] [address] MEDICARE Advance Directives For more information, please contact: [phone] * Full Code (Latest Code Status on File) Date Activated Date Inactivated Comments 06/05/2018 4:43 PM 06/06/2018 7:06 PM Care Teams Travel Accommodations Rater Relationship Specialty Start Date End Date Leoncio Kilpatrick MD [address] [place] [address] PCP - General 06/09/18
--- OUTSIDE RECORDS SUMMARY | 2024-11-06 02:44 | XMS_ITS | Encounter Summary ---
Author Organization [facility] Address [address] [place] [address] Care Team Providers Care Fashion Consultant Name Role Phone Leoncio Kilpatrick MD Primary Care Provider [phone] Encounter Details Date Type Department Care Team (Late st Contact Info) Description 03/04/2018 Telephone [facility] [address] [address] [address] [place] [address] Angely Rowe MD [address] [place] [address] Social History Tobacco Use Types Packs/Day Years Used Date Smoking Tobacco: Former Alcohol Use Standard Drinks/Week Comments Yes 0 (1 standard drink = 0.6 oz pur e alcohol) 1OR 2 DAILY Sex and Gender Information Value Date Recorded Sex Assigned at Not on file 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 Rowe. Needs Metoprolol rx sent to [facility] in [place]. documented in this encounter Plan of Treatment Not on file documented as of this encounter Visit Diagnoses Not on filedocumented in this encounter Discontinued Medications Medication Sig Discontinue Reason Start Date End Da te metoprolol (LOPRESSOR) 25 mg tablet TAKE 1 TABLET BY MOUTH EVERY 12 HOURS Reorder 07/23/2017 03/04/2018 documented as of this encounter Care Teams Fashion Consultant Relationship Specialty Start Date End Date Leoncio Kilpatrick MD [address] [place] [address] PCP - General 04/19/17 06/08/18 documented as of this encounter
--- OUTSIDE RECORDS SUMMARY | 2024-11-06 02:44 | XMS_ITS | Referral Summary ---
Author Organization [facility] Address [address] [place] [address] Care Team Providers Care Tool Programmer Name Role Phone Leoncio Kilpatrick MD Primary Care Provider [phone] Allergies Active Allergy Reactions Criticality Noted Date [...] file Legal Sex Male 3:11 AM RN NEONATAL Gender Identity Not on file Sexual Orientation [...] Plan of Treatment Not on file Insurance [employer] MEDICARE Advance Directives For more information, please contact: [phone] * Full Code (Latest Code Status on File) Date Activated Date Inactivated Comments 06/05/2018 4:43 PM 06/06/2018 7:06 PM Care Teams Tool Programmer Relationship Specialty Start Date End Date Leoncio Kilpatrick MD [address] [place] [address] PCP - General 06/09/18
--- OUTSIDE RECORDS SUMMARY | 2024-11-06 02:45 | XMS_ITS | Encounter Summary ---
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); Dehiscence of amputation stump (CMS/HCC); Amputation of limb(s) as the cause of abnormal reaction of the patient, or of later complication, without mention of misadventure at the time of the procedure; Bedroom in [facility] as place of occurrence of external cause Social History Tobacco Use Types Packs/Day Years Used Date Smoking Tobacco: Never Assessed Sex and Gender Information Value Date Recorded Sex Assigned at Not on file Legal Sex Male 3:11 AM BOTTOM CAGER Gender Identity Not on file Sexual Orientation [...] the time of the procedure Bedroom in [facility] as place of occurrence of external cause documented in this encounter Care Teams Portable Irrigation Operator Relationship Specialty Start Date End Date Master Colbert MD [address] [place] [address] PCP - General 12/16/13 04/18/17 documented as of this encounter
--- OUTSIDE RECORDS SUMMARY | 2024-11-06 02:45 | XMS_ITS | Encounter Summary ---
Author Organization [facility] Address [address] [place] [address] Care Team Providers Care Industrial Plant Custodian Name Role Phone Master Colbert MD Primary Care Provide r Encounter Details Date Type Department Care Team (Latest Contact Info) Description 10/13/2016 9:22 AM VENEER DEPARTMENT MANAGER - 10/13/2016 11:59 PM VENEER DEPARTMENT MANAGER Hospital Encounter [facility] Postprocedural hemorrhage of a circulatory system organ or structure following other circulatory system procedure; Other surgical procedures as the cause of abnormal reaction of the patient, or of later complication, without mention of misadventure at the time of the procedure; prison as place of occurrence of external cause Social History Tobacco Use Types Packs/Day Years Used Date Smoking Tobacco: Never Assessed Sex and Gender Information Value Date Recorded Sex Assigned at Not on file Legal Sex Male 3:11 AM VENEER DEPARTMENT MANAGER Gender Identity Not on file Sexual [...] misadventure at the time of the procedure prison as place of occurrence of external cause documented in this encounter Care Teams Industrial Plant Custodian Relationship Specialty Start Date End Date Master Colbert MD [address] [facility] [place] [address] PCP - General 12/16/13 04/18/17 documented as of this encounter
--- OUTSIDE RECORDS SUMMARY | 2024-11-06 02:45 | XMS_ITS | Encounter Summary ---
Author Organization [facility] Healthcare Address [address] [place] [address] Care Team Providers Care American Sign Language Interpreter Name Role Phone Master Colbert MD Primary Care Provide r Encounter Details Date Type Department Care Team (Late st Contact Info) Description 10/13/2016 6:52 PM PRODUCT MARKETING MANAGER - 10/13/2016 8:48 PM PRODUCT MARKETING MANAGER Hospital Encounter [facility] YUMICONReuben Ivey MD [facility] [place] [address] Postprocedural hemorrhage of skin and subcutaneous tissue [...] on file Legal Sex Male 3:11 AM PRODUCT MARKETING MANAGER Gender Identity Not on file Sexual [...] cause documented in this encounter Care Teams American Sign Language Interpreter Relationship Specialty Start Date End Date Master Colbert MD [address] [place] [address] PCP - General 12/16/13 04/18/17 documented as of this encounter
--- OUTSIDE RECORDS SUMMARY | 2024-11-06 02:45 | XMS_ITS | Encounter Summary ---
Author Organization [facility] Healthcare Address [address] [place] [address] Care Team Providers Care Engine Monitor Name Role Phone Master Colbert MD Primary Care Provide r Encounter Details Date Type Department Care Team (Late st Contact Info) Description 10/13/2016 9:42 AM MACHINE HAMPER MAKER - 10/13/2016 11:06 AM [facility] Hospital Encounter [facility] Vimal Moe MD [address] [place] [address] Postprocedural hemorrhage of a circulatory system organ or structure following other procedure; Other complications of amputation stump (CMS/HCC); Amputation of limb(s) as the cause of abnormal reaction of the patient, or of later complication, without mention of misadventure at the time of the procedure; [facility] as place of occurrence of external cause; 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); Elevated blood pressure reading without diagnosis of hypertension Social History Tobacco Use Types Packs/Day Years Used Date Smoking Tobacco: Never Assessed Sex and Gender Information Value Date Recorded Sex Assigned at Not on file Legal Sex Male 3:11 AM MACHINE HAMPER MAKER Gender Identity Not on file Sexual [...] misadventure at the time of the procedure [facility] as [facility] of occurrence of external cause Acquired absence of other right toe(s) (HCC) Elevated blood pressure reading without diagnosis of hypertension documented in this encounter Care Teams Engine Monitor Relationship Specialty Start Date End Date Master Colbert MD [address] [place] [address] PCP - General 12/16/13 04/18/17 documented as of this encounter
--- OUTSIDE RECORDS SUMMARY | 2024-11-06 02:45 | XMS_ITS | Encounter Summary ---
Author Organization [facility] Address [address] [place] [address] Care Team Providers Care Preventive Medicine Officer Name Role Phone Master Colbert MD Primary Care Provide r Reason for Visit * Reason Comments Hospital Follow Up DIZZINESS, FALLS Encounter Details Date Type Department Care Team (Late st Contact Info) Description 04/08/2017 11:00 AM CDT Office Visit [facility] [address] [address] [address] [place] [address] Angely Rowe MD [address] [place] [address] Atrial flutter, unspecified type (CMS/HCC) (Primary [...] on file Legal Sex Male 3:11 AM MATTRESS WEAVER Gender Identity Not on file Sexual Orientation [...] 17 added in this encounter Care Teams Preventive Medicine Officer Relationship Specialty Start Date End Date Master Colbert MD [address] [place] [address] PCP - General 12/16/13 04/18/17 documented as of this encounter
--- OUTSIDE RECORDS SUMMARY | 2024-11-06 02:45 | XMS_ITS | Encounter Summary ---
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
[2024-11-06 09:53] LABS: Albumin Pleural Fluid 0.9 g/dL
== END 2024-11-03 17:31 | DRG 186 ==
LOC: ANHED 22:01 → ANHICU 10-30 00:25 → ANHIMU 11-03 15:28 → ANHICU 11-04 15:49 → ANHIMU 11-04 15:49
PROVIDERS: Internal Medicine Critical Care Medicine; Internal Medicine Pulmonary Disease; Nurse Practitioner; Physician Assistant; Admitting Provider General Practice; Emergency Provider Emergency Medicine; PCP Emergency Medicine; Visit Provider Internal Medicine
DX: J90 Pleural effusion, not elsewhere classified (principal); J96.21 Acute and chronic respiratory failure with hypoxia; J96.22 Acute and chronic respiratory failure with hypercapnia; U07.1 COVID-19; I13.0 Hypertensive heart and chronic kidney disease with heart failure and stage 1 through stage 4 chronic kidney disease, or unspecified chronic kidney disease; I50.32 Chronic diastolic (congestive) heart failure; N18.4 Chronic kidney disease, stage 4 (severe); I48.19 Other persistent atrial fibrillation; J44.1 Chronic obstructive pulmonary disease with (acute) exacerbation; I24.89 Other forms of acute ischemic heart disease; I27.20 Pulmonary hypertension, unspecified; D64.9 Anemia, unspecified; E11.319 Type 2 diabetes mellitus with unspecified diabetic retinopathy without macular edema; E11.22 Type 2 diabetes mellitus with diabetic chronic kidney disease; E11.42 Type 2 diabetes mellitus with diabetic polyneuropathy; E78.2 Mixed hyperlipidemia; K21.9 Gastro-esophageal reflux disease without esophagitis; K58.9 Irritable bowel syndrome, unspecified; N40.0 Benign prostatic hyperplasia without lower urinary tract symptoms; M19.90 Unspecified osteoarthritis, unspecified site; F32.A Depression, unspecified; F41.9 Anxiety disorder, unspecified; F10.10 Alcohol abuse, uncomplicated; Z96.641 Presence of right artificial hip joint; Z99.81 Dependence on supplemental oxygen; Z79.01 Long term (current) use of anticoagulants; Z79.82 Long term (current) use of aspirin; Z86.73 Personal history of transient ischemic attack (TIA), and cerebral infarction without residual deficits; Z89.512 Acquired absence of left leg below knee; Z89.431 Acquired absence of right foot; Z87.891 Personal history of nicotine dependence
CPT/HCPCS: 32555; 36415; 36600; 71045; 71250; 80053; 80069; 80076; 82042; 82104; 82805; 82945; 82948; 83036; 83605; 83615; 83735; 83880; 83986; 84100; 84145; 84157; 84311; 84484; 85018; 85025; 85610; 85730; 87015; 87040; 87070; 87075; 87102; 87116; 87205; 87206; 87637; 88108; 88305; 89051; 93005; 94002; 94640; 96365; 96367; 96375; 99285; A9270; J0456; J0696; J1120; J1644; J1815; J1939; J1940; J2919; J3475; J7512; Q5105